=== PATIENT | male | born 1955 | race African-American/Black ===

== ENCOUNTER 2016-06-08 05:55 | Emergency (ER) | payer OTHER, MEDICARE ==
[2016-06-08] MEDS ORDERED: ONDANSETRON 4 MG TAB.RAPDIS PO ONE (06:51)
--- NOTE | 2016-06-08 06:53 | ER Document Report ---
ED General - General Information source: Patient TRAVEL OUTSIDE OF THE [place] IN LAST 30 DAYS: No - HPI Patient complains to provider of: Vomiting Onset: This morning - 05:00 Onset/Duration: Sudden, Persistent Associated symptoms: Nausea, Vomiting <CURT BALES - Last Filed: 06/08/16 06:48> <AUTUMN LANE - Last Filed: 06/08/16 08:06> - General Chief Complaint: Nausea/Vomiting Stated Complaint: Vomiting Notes: Patient is a 50-year-old male presenting to the emergency department concerned of nausea and vomiting onset 05:00 today. Patient states that this happened upon waking, and he was "real hot" and his legs locked up to the point that he couldn't walk. (CURT BALES) - Related Data Allergies/Adverse Reactions: captopril [From Capoten] Allergy (Severe, Verified 05/09/16 15:15) Angioedema atorvastatin calcium [From Lipitor] Allergy (Intermediate, Verified 05/09/16 15: 15) Angioedema atorvastatin [From Lipitor] Allergy (Verified 05/09/16 15:15) clopidogrel [From Plavix] Allergy (Verified 05/09/16 15:15) rosuvastatin [From Crestor] Allergy (Verified 05/09/16 15:15) simvastatin [From Zocor] Allergy (Verified 05/09/16 15:15) Angioedema Past Medical History - General Information source: Patient - Social History Smoking Status: Never Smoker Frequency of alcohol use: None Drug Abuse: None Family History: Reviewed & Not Pertinent, CAD, DM, Hypertension, Thyroid Disfunction - Past Medical History Cardiac Medical History: Reports: Hx Congestive Heart Failure, Hx Coronary Artery Disease, Hx Heart Attack - 2009, Hx Hypercholesterolemia, Hx Hypertension Pulmonary Medical History: Reports: Hx Asthma, Hx Bronchitis, Hx COPD, Hx Sleep Apnea Neurological Medical History: Reports: Hx Cerebrovascular Accident - x 2 Endocrine Medical History: Reports: Hx Diabetes Mellitus Type 1, Hx Diabetes Mellitus Type 2 Renal/ Medical History: Malignancy Medical History: GI Medical History: Reports: Hx Diverticulitis, Hx Gastroesophageal Reflux Disease Musculoskeltal Medical History: Reports Hx Arthritis, Reports Hx Musculoskeletal Deformity, Reports Hx Musculoskeletal Trauma Psychiatric Medical History: Reports: Hx Anxiety, Hx Post Traumatic Stress Disorder Infectious Medical History: Past Surgical History: Reports: Hx Abdominal Surgery - for diverticulitis, Hx Bowel Surgery - Colon resection due to diverticulitis, Hx Cardiac Catheterization, Hx Cardiac Surgery - 1984, ICD placement 2015, Hx Coronary Artery Bypass Graft, Hx Coronary Stent - 1984, Hx Thyroid Surgery, Other - AICD - Immunizations Immunizations up to date: Yes Hx Diphtheria, Pertussis, Tetanus Vaccination: Yes Hx Pneumococcal Vaccination: 05/26/10 <CURT BALES - Last Filed: 06/08/16 06:48> Review of Systems - Review of Systems Constitutional: See HPI, Weakness, Other - [place] "real hot" EENT: No symptoms reported Cardiovascular: No symptoms reported Respiratory: No symptoms reported Gastrointestinal: See HPI, Nausea, Vomiting Genitourinary: No symptoms reported Male Genitourinary: No symptoms reported Musculoskeletal: No symptoms reported Skin: No symptoms reported Hematologic/Lymphatic: No symptoms reported Neurological/Psychological: No symptoms reported -: Yes All other systems reviewed and negative <CURT BALES - Last Filed: 06/08/16 06:48> Physical Exam - Vital signs Interpretation: Normal - General General appearance: Alert - HEENT Head: Normocephalic, Atraumatic Eyes: Normal Pupils: PERRL - Respiratory Respiratory status: No respiratory distress Chest status: Nontender Breath sounds: Normal Chest palpation: Normal - Cardiovascular Rhythm: Regular Heart sounds: Normal auscultation Murmur: No - Abdominal Inspection: Obese Distension: No distension Bowel sounds: Normal Tenderness: Nontender Organomegaly: No organomegaly - Back Back: Normal - Extremities General upper extremity: Normal inspection, Nontender, Normal color, Normal ROM , Normal temperature General lower extremity: Normal inspection, Nontender, Normal color, Normal ROM , Normal temperature - Neurological Neuro grossly intact: Yes Cognition: Normal [place] Coma Scale Eye Opening: Spontaneous Magalis Coma Scale Verbal: Oriented Magalis Coma Scale Motor: Obeys Commands Magalis Coma Scale Total: 15 Speech: Other - Stutters - Psychological Associated symptoms: Normal affect, Normal mood - Skin Skin Temperature: Warm Skin Moisture: Dry Skin Color: Normal <CURT BALES - Last Filed: 06/08/16 06:48> Course <CURT BALES - Last Filed: 06/08/16 06:48> - Laboratory Result Diagrams: 06/08/16 06:45 06/08/16 06:45 - Diagnostic Test Radiology reviewed: Image reviewed, Reports reviewed - Chest x-ray shows stable cardiomegaly without failure or infiltrate. - EKG Interpretation by Ca EKG shows normal: Sinus rhythm, [place]. abnormal: Intervals - Borderline prolonged QT interval, QRS Complexes - RVH, ST-T Waves - Borderline inferior T abnormalities Rate: Normal - 97 Rhythm: NSR, PVC's When compared to previous EKG there are: No significant change <AUTUMN LANE - Last Filed: 06/08/16 08:06> - Re-evaluation Re-evalutation: 06/08/16 07:53 Patient's lab work is unremarkable, troponin is 0.054 which is within his normal range. EKG does not show acute changes. Chest x-ray is unremarkable. Patient feels better after Zofran for the nausea and vomiting. 06/08/16 08:03 Patient is sleeping. He is awakened for exam. His nauseousness is considerably better and he feels comfortable going home. (AUTUMN LANE) - Vital Signs Vital signs: Temp Pulse Resp BP Pulse Ox 97.7 F 101 H 20 107/76 95 06/08/16 06:10 06/08/16 06:10 06/08/16 06:10 06/08/16 06:10 06/08/16 06:10 (CURT BALES) (AUTUMN LANE) - Laboratory Laboratory results interpreted by nv: 06/08/16 06/08/16 06:45 06:45 Hgb 12.9 L MCH 26.1 L RDW 17.5 H Monocytes % 13.3 H Carbon Dioxide 34 H BUN 23 H Glucose 143 H Creatine Kinase 45 L (AUTUMN LANE) Discharge <CURT BALES - Last Filed: 06/08/16 06:48> <AUTUMN LANE - Last Filed: 06/08/16 08:06> - Discharge Clinical Impression: Nausea and vomiting Qualifiers: Vomiting type: unspecified Vomiting Intractability: non-intractable Qualified Code(s): R11.2 - Nausea with vomiting, unspecified Chest pain Qualifiers: Chest pain type: unspecified Qualified Code(s): R07.9 - Chest pain, unspecified Condition: Stable Disposition: HOME, SELF-CARE Additional Instructions: Nausea or Vomiting, Nonspecific: Vomiting (or nausea without vomiting) can be caused by many different problems. Of course, it can mean that something's wrong with the stomach, such as "stomach flu," ulcers, or inflammation. But it can also be a symptom of a problem that has nothing to do with the stomach or intestines. Vomiting is common with severe headaches, earaches, and tonsillitis. We see it with pneumonia or heart attacks. Drugs can cause nausea. Many abdominal problems cause vomiting; for example, gallstones, kidney stones, pancreatitis, and intestinal obstruction (blocked bowels). In most cases, curing the vomiting depends on fixing the problem that caused it. For temporary relief, we may use an anti-nausea medicine. For home use, we can prescribe suppositories, chewable pills, pills that dissolve in the mouth, or liquid anti-nausea drugs. If the vomiting seems to be caused by a problem in the stomach, acid-suppressing drugs may be prescribed as well. It's important to avoid dehydration. Sip clear liquids. Take increasing amounts of fluid over the first 24 hours. Then start small amounts of bland foods (such as dry toast, applesauce, mashed potato). Avoid aspirin, tobacco, and alcohol. Gradually resume your usual diet. If the vomiting worsens, if the problem that's making you vomit worsens, or if there's evidence of bleeding in the stomach (such as black, tarry stool, bloody or black vomit, or lightheadedness), you should return immediately. Call your doctor if you aren't improved in 24 to 36 hours. TAKE THE MEDICATION DISPENSED FOR NAUSEA IF NEEDED TODAY. FOLLOW UP WITH YOUR DOCTOR IF NOT IMPROVING. Referrals: BRANDAN BOCANEGRA MD [Primary Care Provider] - Follow up as needed Scribe Attestation: 06/08/16 08:06 I personally performed the services described in the documentation, reviewed and edited the documentation which was dictated to the scribe in my presence, and it accurately records my words and actions. (AUTUMN LANE) Scribe Documentation <CURT BALES - Last Filed: 06/08/16 06:48> <AUTUMN LANE - Last Filed: 06/08/16 08:06> - Scribe Written by Scryumikoe:: AUTUMN LANE MD, SCRIBE 06/08/16 0727 Acting as scribe for: Dr. Lane (CURT BALES) (JAY LANE
[2016-06-08 07:11] LABS: ALBUMIN 4.3 g/dL (3.5-5.0); ANION GAP 11 (5-19); BILIRUBIN,TOTAL 0.9 mg/dL (0.2-1.3); CALCIUM 8.9 mg/dL (8.4-10.2); CARBON DIOXIDE 34 mmol/L (22-30); CHLORIDE 98 mmol/L (98-107); CREATINE KINASE 45 U/L (55-170); CREATININE RESULT 1.12 mg/dL (0.52-1.25); GLUCOSE 143 mg/dL (75-110); SODIUM 142.5 mmol/L (137-145); TOTAL PROTEIN 7.3 g/dL (6.3-8.2)
[2016-06-08 07:16] LABS: ALANINE AMINOTRANSFERASE 26 U/L (21-72); ALKALINE PHOSPHATASE 59 U/L (38-126); ASPARTATE AMINO TRANSFERASE 45 U/L (17-59); BLOOD UREA NITROGEN 23 mg/dL (7-20); POTASSIUM 4.1 mmol/L (3.6-5.0)
[2016-06-08 07:20] LABS: ABSOLUTE EOSINOPHILS # (AUTO) 0.2 10^3/uL (0.0-0.6); ABSOLUTE LYMPHOCYTES (AUTO) 1.5 10^3/uL (0.5-4.7); ABSOLUTE NEUT (AUTO) 4.8 10^3/uL (1.7-8.2); BASOPHILS % (AUTO) 0.6 % (0-2); EOSINOPHILS % (AUTO) 2.9 % (0-6); HEMATOCRIT 39.6 % (37.9-51.0); HEMOGLOBIN 12.9 g/dL (13.5-17.0); HGB HCT DIFFERENCE -0.9; MEAN CORPUSCULAR HEMOGLOBIN 26.1 pg (27.0-33.4); MEAN CORPUSCULAR HGB CONC 32.5 g/dL (32.0-36.0); MEAN CORPUSCULAR VOLUME 81 fl (80-97); MONOCYTES % (AUTO) 13.3 % (3-13); RED BLOOD COUNT 4.92 10^6/uL (4.35-5.55); RED CELL DISTRIBUTION WIDTH 17.5 % (11.5-14.0); SEGMENTED NEUTROPHILS % (AUTO) 63.2 % (42-78); WHITE BLOOD COUNT 7.6 10^3/uL (4.0-10.5)
[2016-06-08 07:23] LABS: CREATINE KINASE MB 1.47 ng/mL (<4.55)
[2016-06-08 07:25] LABS: TROPONIN I 0.054 ng/mL
[2016-06-08] MEDS ORDERED: ONDANSETRON ODT 4 MG TAB (6 TAB/DSPK) PO PRN (08:04)
[2016-06-08 08:25] VITALS: BP 126/94
[2016-06-08 08:40] LABS: APPEARANCE,URINE CLEAR; BILIRUBIN,URINE NEGATIVE (NEGATIVE); GLUCOSE, URINE NEGATIVE (NEGATIVE); KETONES,URINE NEGATIVE (NEGATIVE); LEUKOCYTE ESTERASE,URINE NEGATIVE (NEGATIVE); NITRITE,URINE NEGATIVE (NEGATIVE); PROTEIN,URINE 30 mg/dL (NEGATIVE); URINE SPECIFIC GRAVITY 1.011; UROBILINOGEN,URINE NEGATIVE mg/dL (<2.0)
--- NOTE | 2016-06-08 09:24 | EKG REPORT ---
SEVERITY:- ABNORMAL ECG - SINUS RHYTHM VENTRICULAR PREMATURE COMPLEX PROBABLE LEFT ATRIAL ABNORMALITY CONSIDER RIGHT VENTRICULAR HYPERTROPHY BORDERLINE T ABNORMALITIES, INFERIOR LEADS BORDERLINE PROLONGED QT INTERVAL : Confirmed by: Carolyn Garsia MD 08-Jun-2016 09:23:33
== END 2016-06-08 08:15 | disposition home or self-care (01) ==
LOC: ER 05:55
DX: R11.2 Nausea with vomiting, unspecified (principal); R07.9 Chest pain, unspecified; E66.9 Obesity, unspecified; I50.9 Heart failure, unspecified; I25.10 Atherosclerotic heart disease of native coronary artery without angina pectoris; E78.00 Pure hypercholesterolemia, unspecified; I10 Essential (primary) hypertension; J45.909 Unspecified asthma, uncomplicated; J44.9 Chronic obstructive pulmonary disease, unspecified; E11.9 Type 2 diabetes mellitus without complications; K21.9 Gastro-esophageal reflux disease without esophagitis; Z95.810 Presence of automatic (implantable) cardiac defibrillator; Z86.73 Personal history of transient ischemic attack (TIA), and cerebral infarction without residual deficits; I25.2 Old myocardial infarction
CPT/HCPCS: 93005; 99285; 36415; 82553; 82550; 85025; 80053; 81001; 84484; 71010; 93010; S0119

== ENCOUNTER 2016-06-14 09:23 | Emergency (ER) | payer OTHER, MEDICARE ==
--- NOTE | 2016-06-14 10:13 | ER Document Report ---
ED Headache - General Chief Complaint: Headache Stated Complaint: POSSIBLE HIGH BLOOD PRESSURE Time seen by provider: 10:13 TRAVEL OUTSIDE OF THE [place] IN LAST 30 DAYS: No - Related Data Allergies/Adverse Reactions: captopril [From Capoten] Allergy (Severe, Verified 06/14/16 09:38) Angioedema atorvastatin calcium [From Lipitor] Allergy (Intermediate, Verified 06/14/16 09: 38) Angioedema atorvastatin [From Lipitor] Allergy (Verified 06/14/16 09:38) clopidogrel [From Plavix] Allergy (Verified 06/14/16 09:38) rosuvastatin [From Crestor] Allergy (Verified 06/14/16 09:38) simvastatin [From Zocor] Allergy (Verified 06/14/16 09:38) Angioedema Past Medical History - Social History Smoking Status: Never Smoker Chew tobacco use (# tins/day): No Frequency of alcohol use: None Drug Abuse: None Family History: Reviewed & Not Pertinent, CAD, DM, Hypertension, Thyroid Disfunction Patient has suicidal ideation: No Patient has homicidal ideation: No - Past Medical History Cardiac Medical History: Reports: Hx Congestive Heart Failure, Hx Coronary Artery Disease, Hx Heart Attack - 2008, Hx Hypercholesterolemia, Hx Hypertension Denies: Hx Heart Murmur Pulmonary Medical History: Reports: Hx Asthma, Hx Bronchitis, Hx COPD, Hx Sleep Apnea Denies: Hx Respiratory Failure, Hx Tuberculosis Neurological Medical History: Reports: Hx Cerebrovascular Accident - x 2. Denies: Hx Seizures Endocrine Medical History: Reports: Hx Diabetes Mellitus Type 1, Hx Diabetes Mellitus Type 2 Renal/ Medical History: Denies: Hx Peritoneal Dialysis Malignancy Medical History: GI Medical History: Reports: Hx Diverticulitis, Hx Gastroesophageal Reflux Disease Musculoskeltal Medical History: Reports Hx Arthritis, Reports Hx Musculoskeletal Deformity, Reports Hx Musculoskeletal Trauma Psychiatric Medical History: Reports: Hx Anxiety, Hx Post Traumatic Stress Disorder Denies: Hx Depression Traumatic Medical History: Denies: Hx Fractures Infectious Medical History: Past Surgical History: Reports: Hx Abdominal Surgery - for diverticulitis, Hx Bowel Surgery - Colon resection due to diverticulitis, Hx Cardiac Catheterization, Hx Cardiac Surgery - 1984, ICD placement 2015, Hx Coronary Artery Bypass Graft, Hx Coronary Stent - 1984, Hx Thyroid Surgery, Other - AICD - Immunizations Immunizations up to date: Yes Hx Diphtheria, Pertussis, Tetanus Vaccination: Yes Hx Pneumococcal Vaccination: 05/26/10 Physical Exam - Vital signs Vitals: Temp Pulse Resp BP Pulse Ox 98.0 F 101 H 16 112/70 99 06/14/16 09:35 06/14/16 09:35 06/14/16 09:35 06/14/16 09:35 06/14/16 09:35 Course - Vital Signs Vital signs: Temp Pulse Resp BP Pulse Ox 98.0 F 101 H 16 112/70 99 06/14/16 09:35 06/14/16 09:35 06/14/16 09:35 06/14/16 09:35 06/14/16 09:35
--- NOTE | 2016-06-14 10:36 | ER Document Report ---
ED General - General Chief Complaint: Headache Stated Complaint: POSSIBLE HIGH BLOOD PRESSURE Time seen by provider: 10:30 Mode of Arrival: Ambulatory Information source: Patient Notes: 60 yo male with hx storke(dysphasia-stuttering), HTN, DM, CHF feeling bad for 3- 4 days. C/o frontal headache, congestion "cold" in throat, sore throat, chest discomfort, SOB with ambulation into ER, left arm pain and numbness constant since ICD placed 3 months at [facility]. PCP. No fever. He wants a breathing treatment. TRAVEL OUTSIDE OF THE [place] IN LAST 30 DAYS: No - Related Data Allergies/Adverse Reactions: captopril [From Capoten] Allergy (Severe, Verified 06/14/16 09:38) Angioedema atorvastatin calcium [From Lipitor] Allergy (Intermediate, Verified 06/14/16 09: 38) Angioedema atorvastatin [From Lipitor] Allergy (Verified 06/14/16 09:38) clopidogrel [From Plavix] Allergy (Verified 06/14/16 09:38) rosuvastatin [From Crestor] Allergy (Verified 06/14/16 09:38) simvastatin [From Zocor] Allergy (Verified 06/14/16 09:38) Angioedema Past Medical History - General Information source: Patient - Social History Smoking Status: Never Smoker Chew tobacco use (# tins/day): No Frequency of alcohol use: None Drug Abuse: None Lives with: Family Family History: Reviewed & Not Pertinent, CAD, DM, Hypertension, Thyroid Disfunction Patient has suicidal ideation: No Patient has homicidal ideation: No - Past Medical History Cardiac Medical History: Reports: Hx Congestive Heart Failure, Hx Coronary Artery Disease, Hx Heart Attack - 2008, Hx Hypercholesterolemia, Hx Hypertension Pulmonary Medical History: Reports: Hx Asthma, Hx Bronchitis, Hx COPD, Hx Sleep Apnea Neurological Medical History: Reports: Hx Cerebrovascular Accident - x 2 Endocrine Medical History: Reports: Hx Diabetes Mellitus Type 1, Hx Diabetes Mellitus Type 2 Renal/ Medical History: Malignancy Medical History: GI Medical History: Reports: Hx Diverticulitis, Hx Gastroesophageal Reflux Disease Musculoskeltal Medical History: Reports Hx Arthritis, Reports Hx Musculoskeletal Deformity, Reports Hx Musculoskeletal Trauma Psychiatric Medical History: Reports: Hx Anxiety, Hx Post Traumatic Stress Disorder Infectious Medical History: Past Surgical History: Reports: Hx Abdominal Surgery - for diverticulitis, Hx Bowel Surgery - Colon resection due to diverticulitis, Hx Cardiac Catheterization, Hx Cardiac Surgery - 1984, ICD placement 2015, Hx Coronary Artery Bypass Graft, Hx Coronary Stent - 1984, Hx Thyroid Surgery, Other - AICD - Immunizations Immunizations up to date: Yes Hx Diphtheria, Pertussis, Tetanus Vaccination: Yes Hx Pneumococcal Vaccination: 05/26/10 Review of Systems - Review of Systems Constitutional: No symptoms reported EENT: See HPI Cardiovascular: No symptoms reported Respiratory: No symptoms reported Gastrointestinal: No symptoms reported Genitourinary: No symptoms reported Male Genitourinary: No symptoms reported Musculoskeletal: No symptoms reported Skin: No symptoms reported Hematologic/Lymphatic: No symptoms reported Neurological/Psychological: No symptoms reported Physical Exam - Vital signs Vitals: Temp Pulse Resp BP Pulse Ox 98.0 F 101 H 16 112/70 99 06/14/16 09:35 06/14/16 09:35 06/14/16 09:35 06/14/16 09:35 06/14/16 09:35 Interpretation: Normal - General General appearance: Appears well, Alert In distress: None - HEENT Head: Normocephalic, Atraumatic Eyes: Normal Conjunctiva: Normal Pupils: PERRL Tympanic membrane: Normal Mucous membranes: Normal Pharynx: Erythema - mild Neck: Supple. No: Lymphadenopathy - Respiratory Respiratory status: No respiratory distress Chest status: Nontender Breath sounds: Normal Chest palpation: Normal - Cardiovascular Rhythm: Regular Heart sounds: Normal auscultation Murmur: No - Abdominal Inspection: Normal Distension: No distension Bowel sounds: Normal Tenderness: Nontender. No: Tender Organomegaly: No organomegaly - Back Back: Normal, Nontender. No: CVA tenderness - Extremities General upper extremity: Normal inspection, Nontender, Normal color, Normal ROM , Normal temperature General lower extremity: Normal inspection, Nontender, Normal color, Normal ROM , Normal temperature, Normal weight bearing. No: Kadi's sign - Neurological Neuro grossly intact: Yes Cognition: Normal Orientation: AAOx4 Magalis Coma Scale Eye Opening: Spontaneous [place] Coma Scale Verbal: Oriented [place] Coma Scale Motor: Obeys Commands Magalis Coma Scale Total: 15 Speech: Normal Motor strength normal: LUE, RUE, LLE, RLE Sensory: Normal - Psychological Associated symptoms: Normal affect, Normal mood - Skin Skin Temperature: Warm Skin Moisture: Dry Skin Color: Normal Skin irregularity: negative: Rash Course - Re-evaluation Re-evalutation: 06/14/16 11:[address] Jolly per [facility] guidelines and he recommends the only test to be done as an EKG. The pt was here 06-08-17. Pt lungs are clear, but due to hx chf, dm, ICD placed 9-16 will add CXR-pt states he has "early pneumonia". 06/14/16 11:[address] muñoz, no ekg changes, compensated chronic chf per cxr and dr. muñoz. EKG ST rate 101, right axis deviation,borderline t abnormalities inferior leads. OK with neb that pt wants. and agrees with dispo/ discharge instructions. 06/14/16 11:59 - Vital Signs Vital signs: Temp Pulse Resp BP Pulse Ox 98.0 F 101 H 21 H 129/77 H 95 06/14/16 09:35 06/14/16 09:35 06/14/16 12:26 06/14/16 12:26 06/14/16 12:26 Discharge - Discharge Clinical Impression: chronic compenisated CHF Upper respiratory infection Qualifiers: URI type: unspecified viral URI Qualified Code(s): J06.9 - Acute upper respiratory infection, unspecified Condition: Good Disposition: HOME, SELF-CARE Instructions: Upper Respiratory Illness ([facility]) Additional Instructions: continue all your mdications to the er if worse Prescriptions: Albuterol Sulfate [Proair HFA Inhalation Aerosol 8.5 gm MDI] 2 puff IH Q3HP PRN #1 [email or web address] PRN Reason: Referrals: BRANDAN BOCANEGRA MD [Primary Care Provider] - 06/17/16
[2016-06-14] MEDS ORDERED: ALBUTEROL SULFATE 0.083% NEB 2.5 MG/3 ML AMPUL NEB ONE (11:48)
[2016-06-14 12:47] VITALS: BP 129/77
--- NOTE | 2016-06-14 12:57 | EKG REPORT ---
SEVERITY:- BORDERLINE ECG - SINUS TACHYCARDIA RIGHT AXIS DEVIATION BORDERLINE T ABNORMALITIES, INFERIOR LEADS : Confirmed by: Zac Brandon MD 14-Jun-2016 12:56:22
== END 2016-06-14 12:43 | disposition home or self-care (01) ==
LOC: ER 09:23
DX: J06.9 Acute upper respiratory infection, unspecified (principal); B97.89 Other viral agents as the cause of diseases classified elsewhere; R51 Headache; I69.321 Dysphasia following cerebral infarction; I11.0 Hypertensive heart disease with heart failure; I50.9 Heart failure, unspecified; I25.10 Atherosclerotic heart disease of native coronary artery without angina pectoris; I25.2 Old myocardial infarction; J44.9 Chronic obstructive pulmonary disease, unspecified; J02.9 Acute pharyngitis, unspecified; J45.909 Unspecified asthma, uncomplicated; R06.02 Shortness of breath; R09.89 Other specified symptoms and signs involving the circulatory and respiratory systems; R20.0 Anesthesia of skin; M79.602 Pain in left arm; Z95.810 Presence of automatic (implantable) cardiac defibrillator; Z88.8 Allergy status to other drugs, medicaments and biological substances; Z95.1 Presence of aortocoronary bypass graft; Z98.61 Coronary angioplasty status; E11.9 Type 2 diabetes mellitus without complications
CPT/HCPCS: 71020; 93005; 93010; 94640; 99284

== ENCOUNTER 2016-06-16 19:01 | Emergency (ER) | payer OTHER, MEDICARE ==
[2016-06-16] MEDS ORDERED: ASPIRIN 81 MG TABLET, CHEWABLE PO ONE (20:07)
--- NOTE | 2016-06-16 20:10 | ER Document Report ---
ED Medical Screen (RME) - General Chief Complaint: Chest Pain Stated Complaint: CHEST PAIN Mode of Arrival: Ambulatory Information source: Patient Notes: 60 y/o M presents to ED c/o chest pain, headache, and requesting glucose check. I have greeted and performed a rapid initial assessment of this patient. A comprehensive ED assessment and evaluation of the patient, analysis of test results and completion of the medical decision making process will be conducted by additional ED providers. TRAVEL OUTSIDE OF THE [place] IN LAST 30 DAYS: No - Related Data Allergies/Adverse Reactions: captopril [From Capoten] Allergy (Severe, Verified 06/14/16 09:38) Angioedema atorvastatin calcium [From Lipitor] Allergy (Intermediate, Verified 06/14/16 09: 38) Angioedema atorvastatin [From Lipitor] Allergy (Verified 06/14/16 09:38) clopidogrel [From Plavix] Allergy (Verified 06/14/16 09:38) rosuvastatin [From Crestor] Allergy (Verified 06/14/16 09:38) simvastatin [From Zocor] Allergy (Verified 06/14/16 09:38) Angioedema Past Medical History - Social History Family history: None - Past Medical History Cardiac Medical History: Reports: Hx Congestive Heart Failure, Hx Coronary Artery Disease, Hx Heart Attack - 2008, Hx Hypercholesterolemia, Hx Hypertension Denies: Hx Heart Murmur Pulmonary Medical History: Reports: Hx Asthma, Hx Bronchitis, Hx COPD, Hx Sleep Apnea Denies: Hx Respiratory Failure, Hx Tuberculosis Neurological Medical History: Reports: Hx Cerebrovascular Accident - x 2. Denies: Hx Seizures Endocrine Medical History: Reports: Hx Diabetes Mellitus Type 1, Hx Diabetes Mellitus Type 2 Renal/ Medical History: Denies: Hx Peritoneal Dialysis Malignancy Medical History: GI Medical History: Reports: Hx Diverticulitis, Hx Gastroesophageal Reflux Disease Musculoskeltal Medical History: Reports Hx Arthritis, Reports Hx Musculoskeletal Deformity, Reports Hx Musculoskeletal Trauma Psychiatric Medical History: Reports: Hx Anxiety, Hx Post Traumatic Stress Disorder Denies: Hx Depression Traumatic Medical History: Denies: Hx Fractures Infectious Medical History: Past Surgical History: Reports: Hx Abdominal Surgery - for diverticulitis, Hx Bowel Surgery - Colon resection due to diverticulitis, Hx Cardiac Catheterization, Hx Cardiac Surgery - 1984, ICD placement 2015, Hx Coronary Artery Bypass Graft, Hx Coronary Stent - 1984, Hx Thyroid Surgery, Other - AICD - Immunizations Immunizations up to date: Yes Hx Diphtheria, Pertussis, Tetanus Vaccination: Yes Physical Exam - General General appearance: Appears well, Alert In distress: None
--- NOTE | 2016-06-16 20:30 | EKG REPORT ---
SEVERITY:- ABNORMAL ECG - SINUS TACHYCARDIA CONSIDER RIGHT VENTRICULAR HYPERTROPHY BORDERLINE R WAVE PROGRESSION, ANTERIOR LEADS BORDERLINE T ABNORMALITIES, INFERIOR LEADS : Confirmed by: Zac Brandon MD 16-Jun-2016 20:30:24
--- NOTE | 2016-06-16 21:16 | ER Document Report ---
ED General - General Chief Complaint: Chest Pain Stated Complaint: CHEST PAIN Mode of Arrival: Ambulatory Notes: Patient is a 60-year-old male that comes emergency department with several complaints. He states he wants his blood sugar checked although he is taking his metformin for diabetes, he states that he has had a cough for about a week with an episode this morning where he vomited mucus. He states he has had mild chest pain intermittently and with cough. He denies fever. He states he had a headache but states he was given aspirin for this and now he feels fine. Past medical history of asthma reportedly, CAD, AICD placement, CVA, Plavix use. TRAVEL OUTSIDE OF THE [place] IN LAST 30 DAYS: No - Related Data Allergies/Adverse Reactions: captopril [From Capoten] Allergy (Severe, Verified 06/14/16 09:38) Angioedema atorvastatin calcium [From Lipitor] Allergy (Intermediate, Verified 06/14/16 09: 38) Angioedema atorvastatin [From Lipitor] Allergy (Verified 06/14/16 09:38) clopidogrel [From Plavix] Allergy (Verified 06/14/16 09:38) rosuvastatin [From Crestor] Allergy (Verified 06/14/16 09:38) simvastatin [From Zocor] Allergy (Verified 06/14/16 09:38) Angioedema Past Medical History - General Information source: Patient - Social History Smoking Status: Former Smoker Frequency of alcohol use: None Lives with: Family Family History: Reviewed & Not Pertinent, CAD, DM, Hypertension, Thyroid Disfunction Patient has suicidal ideation: No Patient has homicidal ideation: No - Past Medical History Cardiac Medical History: Reports: Hx Congestive Heart Failure, Hx Coronary Artery Disease, Hx Heart Attack - 2008, Hx Hypercholesterolemia, Hx Hypertension Denies: Hx Heart Murmur Pulmonary Medical History: Reports: Hx Asthma, Hx Bronchitis, Hx COPD, Hx Sleep Apnea Denies: Hx Respiratory Failure, Hx Tuberculosis Neurological Medical History: Reports: Hx Cerebrovascular Accident - x 2. Denies: Hx Seizures Endocrine Medical History: Reports: Hx Diabetes Mellitus Type 1, Hx Diabetes Mellitus Type 2 Renal/ Medical History: Denies: Hx Peritoneal Dialysis Malignancy Medical History: GI Medical History: Reports: Hx Diverticulitis, Hx Gastroesophageal Reflux Disease Musculoskeltal Medical History: Reports Hx Arthritis, Reports Hx Musculoskeletal Deformity, Reports Hx Musculoskeletal Trauma Psychiatric Medical History: Reports: Hx Anxiety, Hx Post Traumatic Stress Disorder Denies: Hx Depression Traumatic Medical History: Denies: Hx Fractures Infectious Medical History: Past Surgical History: Reports: Hx Abdominal Surgery - for diverticulitis, Hx Bowel Surgery - Colon resection due to diverticulitis, Hx Cardiac Catheterization, Hx Cardiac Surgery - 1984, ICD placement 2015, Hx Coronary Artery Bypass Graft, Hx Coronary Stent - 1984, Hx Thyroid Surgery, Other - AICD - Immunizations Immunizations up to date: Yes Hx Diphtheria, Pertussis, Tetanus Vaccination: Yes Hx Pneumococcal Vaccination: 05/26/10 Review of Systems - Review of Systems Constitutional: See HPI EENT: No symptoms reported Cardiovascular: See HPI Respiratory: See HPI Gastrointestinal: See HPI Genitourinary: No symptoms reported Male Genitourinary: No symptoms reported Musculoskeletal: No symptoms reported Skin: No symptoms reported Hematologic/Lymphatic: No symptoms reported Neurological/Psychological: No symptoms reported Physical Exam - Vital signs Vitals: Temp Pulse Resp BP Pulse Ox 98.4 F 99 19 127/92 H 96 06/16/16 19:33 06/16/16 19:33 06/16/16 19:33 06/16/16 19:33 06/16/16 19:33 Interpretation: Normal - General General appearance: Appears well, Alert In distress: None - HEENT Head: Normocephalic, Atraumatic Eyes: Normal Pupils: PERRL - Respiratory Respiratory status: No respiratory distress Chest status: Nontender Breath sounds: Normal. No: Decreased air movement, Nonproductive cough, Wheezing Chest palpation: Normal - Cardiovascular Rhythm: Regular. No: Tachycardia Heart sounds: Normal auscultation, S1 appreciated, S2 appreciated Murmur: No - Abdominal Inspection: Normal Distension: No distension Bowel sounds: Normal Tenderness: Nontender. No: Tender, Guarding - Back Back: Normal, Nontender. No: Tender - Extremities General upper extremity: Normal inspection, Nontender, Normal ROM, Normal strength General lower extremity: Normal inspection, Nontender, Normal ROM, Normal strength - Neurological Neuro grossly intact: Yes Cognition: Normal Orientation: AAOx4 [place] Coma Scale Eye Opening: Spontaneous [place] Coma Scale Verbal: Oriented [place] Coma Scale Motor: Obeys Commands Mag[place] Coma Scale Total: 15 Speech: Normal Motor strength normal: LUE, RUE, LLE, RLE Sensory: Normal - Psychological Associated symptoms: Normal affect, Normal mood - Skin Skin Temperature: Warm Skin Moisture: Dry Skin Color: Normal Course - Re-evaluation Re-evalutation: No acute abnormalities noted on patient's EKG, CBC, chemistry, cardiac enzymes. Chronically elevated troponin, troponin baseline. Chest x-ray unremarkable, very mild hyperglycemia. Patient was given a Dosepak discharge medications for cough and for nausea, patient is very well appearing on examination. Patient with no complaints at discharge. Patient states satisfaction with workup, states he'll follow-up with his primary care and return if he develops any concerning or worsening symptoms. - Vital Signs Vital signs: Temp Pulse Resp BP Pulse Ox 98.4 F 99 21 H 109/82 97 06/16/16 19:33 06/16/16 19:33 06/16/16 23:01 06/16/16 23:01 06/16/16 23:01 - Laboratory Result Diagrams: 06/16/16 21:44 06/16/16 21:44 Laboratory results interpreted by me: 06/16/16 06/16/16 21:44 21:44 Hgb 13.3 L MCH 25.5 L MCHC 31.5 L RDW 17.3 H Creatinine 1.28 H Est GFR (Non-Af Amer) 57 L Glucose 125 H Discharge - Discharge Clinical Impression: Cough Vomiting Qualifiers: Vomiting type: unspecified Vomiting Intractability: non-intractable Nausea presence: unspecified Qualified Code(s): R11.10 - Vomiting, unspecified Condition: Stable Disposition: HOME, SELF-CARE Additional Instructions: Your blood sugar and workup today does not show any concerning findings. Your x-ray does not show pneumonia, your workup does not show an infection. Take the [place] if needed for pain and cough especially at night to help you sleep. Take the Zofran given if you become nauseated and feel like you need to vomit again. Follow-up with your primary care provider this week. Return to the emergency department for any concerning symptoms. Referrals: BRANDAN BOCANEGRA MD [Primary Care Provider] - Follow up as needed
[2016-06-16 21:58] LABS: ABSOLUTE BASOPHILS # (AUTO) 0.1 10^3/uL (0.0-0.2); ABSOLUTE EOSINOPHILS # (AUTO) 0.4 10^3/uL (0.0-0.6); ABSOLUTE LYMPHOCYTES (AUTO) 1.9 10^3/uL (0.5-4.7); ABSOLUTE MONOCYTES (AUTO) 1.1 10^3/uL (0.1-1.4); ABSOLUTE NEUT (AUTO) 4.9 10^3/uL (1.7-8.2); BASOPHILS % (AUTO) 0.9 % (0-2); EOSINOPHILS % (AUTO) 4.2 % (0-6); HEMATOCRIT 42.4 % (37.9-51.0); HEMOGLOBIN 13.3 g/dL (13.5-17.0); HGB HCT DIFFERENCE -2.5; LYMPHOCYTES % (AUTO) 22.9 % (13-45); MEAN CORPUSCULAR HEMOGLOBIN 25.5 pg (27.0-33.4); MEAN CORPUSCULAR HGB CONC 31.5 g/dL (32.0-36.0); MEAN CORPUSCULAR VOLUME 81 fl (80-97); RED BLOOD COUNT 5.23 10^6/uL (4.35-5.55); RED CELL DISTRIBUTION WIDTH 17.3 % (11.5-14.0); WHITE BLOOD COUNT 8.3 10^3/uL (4.0-10.5)
[2016-06-16 22:18] LABS: ALANINE AMINOTRANSFERASE 28 U/L (21-72); ALBUMIN 4.2 g/dL (3.5-5.0); ALKALINE PHOSPHATASE 65 U/L (38-126); ANION GAP 13 (5-19); ASPARTATE AMINO TRANSFERASE 19 U/L (17-59); BILIRUBIN,TOTAL 0.5 mg/dL (0.2-1.3); BLOOD UREA NITROGEN 17 mg/dL (7-20); CALCIUM 9.4 mg/dL (8.4-10.2); CARBON DIOXIDE 26 mmol/L (22-30); CHLORIDE 105 mmol/L (98-107); CREATINE KINASE 76 U/L (55-170); CREATININE RESULT 1.28 mg/dL (0.52-1.25); GLUCOSE 125 mg/dL (75-110); POTASSIUM 4.4 mmol/L (3.6-5.0); SODIUM 143.8 mmol/L (137-145); TOTAL PROTEIN 6.8 g/dL (6.3-8.2)
[2016-06-16 22:27] LABS: CREATINE KINASE MB 1.79 ng/mL (<4.55)
[2016-06-16 22:30] LABS: TROPONIN I 0.058 ng/mL
[2016-06-16] MEDS ORDERED: HYDROCODONE/ACETAMINOPHEN 5-325 MG 6 TAB/DSPK PO PRN (22:57)
[2016-06-16] MEDS ORDERED: ONDANSETRON ODT 4 MG TAB (6 TAB/DSPK) PO PRN (22:57)
[2016-06-16 23:20] VITALS: BP 109/82
== END 2016-06-16 23:22 | disposition home or self-care (01) ==
LOC: ER 19:01
DX: R05 Cough (principal); R11.2 Nausea with vomiting, unspecified; R07.9 Chest pain, unspecified; E11.65 Type 2 diabetes mellitus with hyperglycemia; Z79.84 Long term (current) use of oral hypoglycemic drugs; R51 Headache; J45.909 Unspecified asthma, uncomplicated; J44.9 Chronic obstructive pulmonary disease, unspecified; I25.10 Atherosclerotic heart disease of native coronary artery without angina pectoris; I25.2 Old myocardial infarction; I10 Essential (primary) hypertension; Z86.73 Personal history of transient ischemic attack (TIA), and cerebral infarction without residual deficits; Z79.02 Long term (current) use of antithrombotics/antiplatelets; Z95.810 Presence of automatic (implantable) cardiac defibrillator; Z88.8 Allergy status to other drugs, medicaments and biological substances; Z87.891 Personal history of nicotine dependence; Z82.49 Family history of ischemic heart disease and other diseases of the circulatory system; Z95.1 Presence of aortocoronary bypass graft; Z98.61 Coronary angioplasty status
CPT/HCPCS: 36415; 71010; 80053; 82550; 82553; 84484; 85025; 93005; 93010; 99285

== ENCOUNTER 2016-06-23 04:48 | Emergency (ER) | payer OTHER, MEDICARE ==
--- NOTE | 2016-06-23 05:44 | ER Document Report ---
ED Medical Screen (RME) - General Chief Complaint: Chest Pain Stated Complaint: CHEST PAIN Time seen by provider: 05:43 Mode of Arrival: Ambulatory Information source: Patient TRAVEL OUTSIDE OF THE [place] IN LAST 30 DAYS: No - HPI Patient complains to provider of: headache, chest pain and difficulty breathing Onset: Just prior to arrival - 2:30 AM Quality of pain: Achy Severity: Mild Associated Symptoms: Shortness of breath Exacerbated by: Movement, Coughing Relieved by: Denies Similar symptoms previously: Yes Recently seen / treated by doctor: Yes - Related Data Allergies/Adverse Reactions: captopril [From Capoten] Allergy (Severe, Verified 06/23/16 04:55) Angioedema atorvastatin calcium [From Lipitor] Allergy (Intermediate, Verified 06/23/16 04: 55) Angioedema atorvastatin [From Lipitor] Allergy (Verified 06/23/16 04:55) clopidogrel [From Plavix] Allergy (Verified 06/23/16 04:55) rosuvastatin [From Crestor] Allergy (Verified 06/23/16 04:55) simvastatin [From Zocor] Allergy (Verified 06/23/16 04:55) Angioedema Past Medical History - Social History Family history: None - Past Medical History Cardiac Medical History: Reports: Hx Congestive Heart Failure, Hx Coronary Artery Disease, Hx Heart Attack - 2008, Hx Hypercholesterolemia, Hx Hypertension Denies: Hx Heart Murmur Pulmonary Medical History: Reports: Hx Asthma, Hx Bronchitis, Hx COPD, Hx Sleep Apnea Denies: Hx Respiratory Failure, Hx Tuberculosis Neurological Medical History: Reports: Hx Cerebrovascular Accident - x 2. Denies: Hx Seizures Endocrine Medical History: Reports: Hx Diabetes Mellitus Type 1, Hx Diabetes Mellitus Type 2 Renal/ Medical History: Denies: Hx Peritoneal Dialysis Malignancy Medical History: GI Medical History: Reports: Hx Diverticulitis, Hx Gastroesophageal Reflux Disease Musculoskeltal Medical History: Reports Hx Arthritis, Reports Hx Musculoskeletal Deformity, Reports Hx Musculoskeletal Trauma Psychiatric Medical History: Reports: Hx Anxiety, Hx Post Traumatic Stress Disorder Denies: Hx Depression Traumatic Medical History: Denies: Hx Fractures Infectious Medical History: Past Surgical History: Reports: Hx Abdominal Surgery - for diverticulitis, Hx Bowel Surgery - Colon resection due to diverticulitis, Hx Cardiac Catheterization, Hx Cardiac Surgery - 1984, ICD placement 2015, Hx Coronary Artery Bypass Graft, Hx Coronary Stent - 1984, Hx Thyroid Surgery, Other - AICD - Immunizations Immunizations up to date: Yes Hx Diphtheria, Pertussis, Tetanus Vaccination: Yes Physical Exam - Vital signs Vitals: Temp Pulse Resp BP Pulse Ox 97.7 F 100 10 L 112/77 96 06/23/16 05:04 06/23/16 05:04 06/23/16 05:04 06/23/16 05:04 06/23/16 05:04 Course - Vital Signs Vital signs: Temp Pulse Resp BP Pulse Ox 97.7 F 100 10 L 109/64 95 06/23/16 05:04 06/23/16 05:04 06/23/16 05:04 06/23/16 05:28 06/23/16 05:29
--- NOTE | 2016-06-23 06:57 | ER Document Report ---
ED General <AUTUMN LANE - Last Filed: 06/23/16 08:05> - General Time seen by provider: 06:52 Mode of Arrival: Ambulatory Information source: Patient TRAVEL OUTSIDE OF THE [place] IN LAST 30 DAYS: No - HPI Onset: This morning Onset/Duration: Sudden Quality of pain: Achy Pain Level: 4 Associated symptoms: Chest pain, Headache, Rhinnorhea Exacerbated by: Movement, Coughing Similar symptoms previously: Yes Recently seen / treated by doctor: Yes <DEJON CASTELAN - Last Filed: 06/23/16 10:04> - General Chief Complaint: Chest Pain Stated Complaint: CHEST PAIN Notes: Patient is a 60-year-old male presents to the emergency department with complaints of chest pain, abdominal pain, and difficulty breathing. Patient also complains of a headache and URI symptoms. Patient had a bowel movement after he arrived at the emergency department and states that relieved his abdominal pain. Patient has some congestion and a history of asthma and type II diabetes mellitus. Patient has been seen in the emergency department multiple times over the past 2 weeks. (DEJON CASTELAN) - Related Data Allergies/Adverse Reactions: captopril [From Capoten] Allergy (Severe, Verified 06/23/16 04:55) Angioedema atorvastatin calcium [From Lipitor] Allergy (Intermediate, Verified 06/23/16 04: 55) Angioedema atorvastatin [From Lipitor] Allergy (Verified 06/23/16 04:55) clopidogrel [From Plavix] Allergy (Verified 06/23/16 04:55) rosuvastatin [From Crestor] Allergy (Verified 06/23/16 04:55) simvastatin [From Zocor] Allergy (Verified 06/23/16 04:55) Angioedema Past Medical History - General Information source: Patient - Social History Smoking Status: Never Smoker Cigarette use (# per day): No Chew tobacco use (# tins/day): No Frequency of alcohol use: None Drug Abuse: None Family History: CAD, DM, Hypertension, Thyroid Disfunction - Past Medical History Cardiac Medical History: Reports: Hx Congestive Heart Failure, Hx Coronary Artery Disease, Hx Heart Attack - 2009, Hx Hypercholesterolemia, Hx Hypertension Pulmonary Medical History: Reports: Hx Asthma, Hx Bronchitis, Hx COPD, Hx Sleep Apnea Neurological Medical History: Reports: Hx Cerebrovascular Accident - x 2 Endocrine Medical History: Reports: Hx Diabetes Mellitus Type 1, Hx Diabetes Mellitus Type 2 Renal/ Medical History: Malignancy Medical History: GI Medical History: Reports: Hx Diverticulitis, Hx Gastroesophageal Reflux Disease Musculoskeltal Medical History: Reports Hx Arthritis, Reports Hx Musculoskeletal Deformity, Reports Hx Musculoskeletal Trauma Psychiatric Medical History: Reports: Hx Anxiety, Hx Post Traumatic Stress Disorder Infectious Medical History: Past Surgical History: Reports: Hx Abdominal Surgery - for diverticulitis, Hx Bowel Surgery - Colon resection due to diverticulitis, Hx Cardiac Catheterization, Hx Cardiac Surgery - 1984, ICD placement 2015, Hx Coronary Artery Bypass Graft, Hx Coronary Stent - 1984, Hx Thyroid Surgery, Other - AICD - Immunizations Immunizations up to date: Yes Hx Diphtheria, Pertussis, Tetanus Vaccination: Yes Hx Pneumococcal Vaccination: 05/26/10 <DEJON CASTELAN - Last Filed: 06/23/16 10:04> Review of Systems - Review of Systems Constitutional: No symptoms reported EENT: No symptoms reported Cardiovascular: See HPI, Chest pain Respiratory: See HPI, Short of breath Gastrointestinal: See HPI, Abdominal pain Genitourinary: No symptoms reported Male Genitourinary: No symptoms reported Musculoskeletal: No symptoms reported Skin: No symptoms reported Hematologic/Lymphatic: No symptoms reported Neurological/Psychological: See HPI, Headaches -: Yes All other systems reviewed and negative <DEJON CASTELAN - Last Filed: 06/23/16 10:04> Physical Exam - Vital signs Interpretation: Normal - General General appearance: Appears well, Alert, Other - patient is sleeping but easily arousable In distress: Mild - HEENT Head: Normocephalic, Atraumatic Eyes: Normal Pupils: PERRL Nasal: Clear rhinorrhea Mucous membranes: Moist - Respiratory Respiratory status: No respiratory distress Chest status: Nontender Breath sounds: Wheezing Chest palpation: Normal - Cardiovascular Rhythm: Regular Heart sounds: Normal auscultation Murmur: No - Abdominal Inspection: Obese Distension: No distension Bowel sounds: Normal Tenderness: Nontender Organomegaly: No organomegaly - Back Back: Normal, Nontender - Extremities General upper extremity: Normal inspection, Normal ROM, Normal strength General lower extremity: Normal inspection, Normal ROM, Normal strength - Neurological Neuro grossly intact: Yes Cognition: Normal Orientation: AAOx4 [place] Coma Scale Eye Opening: Spontaneous [place] Coma Scale Verbal: Oriented [place] Coma Scale Motor: Obeys Commands [place] Coma Scale Total: 15 Speech: Other - speech is somewhat garbled and patient is sometimes difficult to understand; this is his baseline - Psychological Associated symptoms: Normal affect, Normal mood - Skin Skin Temperature: Warm Skin Moisture: Dry <DEJON CASTELAN - Last Filed: 06/23/16 10:04> - Vital signs Vitals: Temp Pulse Resp BP Pulse Ox 97.7 F 100 10 L 112/77 96 06/23/16 05:04 06/23/16 05:04 06/23/16 05:04 06/23/16 05:04 06/23/16 05:04 (AUTUMN LANE) (DEJON CASTELAN) Course - Laboratory Result Diagrams: 06/23/16 07:14 06/23/16 07:14 - Diagnostic Test Radiology reviewed: Image reviewed, Reports reviewed - Chest x-ray shows cardiomegaly without failure or infiltrate - EKG Interpretation by Me EKG shows normal: Sinus rhythm, [place], QRS Complexes, ST-T Waves. abnormal: Intervals - Borderline prolonged QT interval Rate: Tachycardia - 103 Rhythm: PVC's [place]/QRS: RBBB, LPHB/LPFB P Waves: LAE When compared to previous EKG there are: No significant change <AUTUMN LANE - Last Filed: 06/23/16 08:05> - Laboratory Result Diagrams: 06/23/16 07:14 06/23/16 07:14 <DEJON CASTELAN - Last Filed: 06/23/16 10:04> - Re-evaluation Re-evalutation: 06/23/16 08:06 Wheezes are better and patient smoke up after breathing treatments. He was given today's dose of prednisone. (AUTUMN LANE) - Vital Signs Vital signs: Temp Pulse Resp BP Pulse Ox 98.7 F 100 26 H 127/88 H 100 06/23/16 08:23 06/23/16 05:04 06/23/16 08:01 06/23/16 08:01 06/23/16 08:01 (AUTUMN LANE) (DEJON CASTELAN) - Laboratory Laboratory results interpreted by me: 06/23/16 06/23/16 07:14 07:14 RBC 5.60 H MCH 25.7 L MCHC 31.6 L RDW 16.9 H Monocytes % 14.4 H Sodium 145.1 H BUN 24 H Creatinine 1.27 H Est GFR (Non-Af Amer) 57 L Glucose 133 H (AUTUMN LANE) Discharge <AUTUMN LANE - Last Filed: 06/23/16 08:05> <DEJON CASTELAN - Last Filed: 06/23/16 10:04> - Discharge Clinical Impression: Asthma exacerbation, Chest wall pain Condition: Stable Disposition: HOME, SELF-CARE Additional Instructions: You appear to have a viral upper respiratory tract infection which is exacerbating your asthma. Start the prednisone as prescribed tomorrow, you already had today's dose here in the emergency room. Use your albuterol inhaler every 4 hours for wheezing as needed. Drink extra water for the next few days. Follow-up with your doctor at the [facility] this week for recheck. RETURN TO THE EMERGENCY ROOM IF ANY NEW OR WORSENING SYMPTOMS. Prescriptions: Prednisone [Deltasone 10 mg Tablet] 10 mg PO ASDIR PRN #15 tablet PRN Reason: Referrals: BRANDAN BOCANEGRA MD [Primary Care Provider] - Follow up in 3-5 days Scribe Attestation: 06/23/16 08:10 I personally performed the services described in the documentation, reviewed and edited the documentation which was dictated to the scribe in my presence, and it accurately records my words and actions. (AUTUMN LNAE) Scribe Documentation - Scribe Written by Hawa:: Dejon Castelan 06/23/16 07:40 acting as scribe for :: Joanna <DEJON CASTELAN - Last Filed: 06/23/16 10:04>
[2016-06-23] MEDS ORDERED: PREDNISONE 20 MG TABLET PO ONE (06:58)
[2016-06-23] MEDS ORDERED: IPRATROPIUM/ALBUTEROL 0.5-2.5 MG/3 ML AMPUL NEB ONE (06:58)
[2016-06-23] MEDS ORDERED: ALBUTEROL SULFATE 0.083% NEB 2.5 MG/3 ML AMPUL NEB ONE (07:24)
[2016-06-23 07:26] LABS: ABSOLUTE BASOPHILS # (AUTO) 0.1 10^3/uL (0.0-0.2); ABSOLUTE EOSINOPHILS # (AUTO) 0.3 10^3/uL (0.0-0.6); ABSOLUTE LYMPHOCYTES (AUTO) 1.5 10^3/uL (0.5-4.7); ABSOLUTE NEUT (AUTO) 4.2 10^3/uL (1.7-8.2); BASOPHILS % (AUTO) 0.8 % (0-2); EOSINOPHILS % (AUTO) 4.3 % (0-6); HEMATOCRIT 45.5 % (37.9-51.0); HEMOGLOBIN 14.4 g/dL (13.5-17.0); HGB HCT DIFFERENCE -2.3; LYMPHOCYTES % (AUTO) 20.7 % (13-45); MEAN CORPUSCULAR HEMOGLOBIN 25.7 pg (27.0-33.4); MEAN CORPUSCULAR HGB CONC 31.6 g/dL (32.0-36.0); MEAN CORPUSCULAR VOLUME 81 fl (80-97); MONOCYTES % (AUTO) 14.4 % (3-13); RED CELL DISTRIBUTION WIDTH 16.9 % (11.5-14.0); SEGMENTED NEUTROPHILS % (AUTO) 59.8 % (42-78)
[2016-06-23 07:42] LABS: ALANINE AMINOTRANSFERASE 29 U/L (21-72); ALBUMIN 4.1 g/dL (3.5-5.0); ALKALINE PHOSPHATASE 64 U/L (38-126); ANION GAP 14 (5-19); ASPARTATE AMINO TRANSFERASE 23 U/L (17-59); BILIRUBIN,TOTAL 0.6 mg/dL (0.2-1.3); BLOOD UREA NITROGEN 24 mg/dL (7-20); CALCIUM 9.2 mg/dL (8.4-10.2); CARBON DIOXIDE 30 mmol/L (22-30); CHLORIDE 101 mmol/L (98-107); CREATINE KINASE 65 U/L (55-170); CREATININE RESULT 1.27 mg/dL (0.52-1.25); GLUCOSE 133 mg/dL (75-110); POTASSIUM 4.4 mmol/L (3.6-5.0); SODIUM 145.1 mmol/L (137-145); TOTAL PROTEIN 7.1 g/dL (6.3-8.2)
[2016-06-23 07:53] LABS: CREATINE KINASE MB 2.06 ng/mL (<4.55)
[2016-06-23 07:57] LABS: TROPONIN I 0.052 ng/mL
[2016-06-23 08:04] VITALS: BP 127/88
--- NOTE | 2016-06-23 09:37 | EKG REPORT ---
SEVERITY:- ABNORMAL ECG - SINUS TACHYCARDIA VENTRICULAR PREMATURE COMPLEX PROBABLE LEFT ATRIAL ABNORMALITY IRBBB AND LPFB BORDERLINE PROLONGED QT INTERVAL : Confirmed by: Carolyn Garsia MD 23-Jun-2016 09:36:08
== END 2016-06-23 08:24 | disposition home or self-care (01) ==
LOC: ER 04:48
DX: J45.901 Unspecified asthma with (acute) exacerbation (principal); R07.81 Pleurodynia; R07.9 Chest pain, unspecified; R51 Headache; R00.0 Tachycardia, unspecified; E11.9 Type 2 diabetes mellitus without complications; I50.9 Heart failure, unspecified; I11.0 Hypertensive heart disease with heart failure; E78.00 Pure hypercholesterolemia, unspecified; J44.9 Chronic obstructive pulmonary disease, unspecified; Z95.1 Presence of aortocoronary bypass graft; Z95.810 Presence of automatic (implantable) cardiac defibrillator
CPT/HCPCS: 93005; 94640 ×2; 99285; 36415; 82553; 82550; 85025; 80053; 84484; 83880; 71020; 93010; J7512; J7620

== ENCOUNTER 2016-06-26 19:56 | Emergency (ER) | payer OTHER, MEDICARE ==
--- NOTE | 2016-06-26 20:12 | ER Document Report ---
ED Medical Screen (RME) - General Stated Complaint: POSSIBLE STROKE Notes: 60 yo male with hx/o stroke x 2, AR, CABG, HTN c/o slurred speech and increased agitation x 1 hr. brought to ED by friend. speech is very exaggerated, and more slurred per friend. TRAVEL OUTSIDE OF THE [place] IN LAST 30 DAYS: No - Related Data Allergies/Adverse Reactions: captopril [From Capoten] Allergy (Severe, Verified 06/23/16 04:55) Angioedema atorvastatin calcium [From Lipitor] Allergy (Intermediate, Verified 06/23/16 04: 55) Angioedema atorvastatin [From Lipitor] Allergy (Verified 06/23/16 04:55) clopidogrel [From Plavix] Allergy (Verified 06/23/16 04:55) rosuvastatin [From Crestor] Allergy (Verified 06/23/16 04:55) simvastatin [From Zocor] Allergy (Verified 06/23/16 04:55) Angioedema Past Medical History - Social History Family history: None - Past Medical History Cardiac Medical History: Reports: Hx Congestive Heart Failure, Hx Coronary Artery Disease, Hx Heart Attack - 2008, Hx Hypercholesterolemia, Hx Hypertension Denies: Hx Heart Murmur Pulmonary Medical History: Reports: Hx Asthma, Hx Bronchitis, Hx COPD, Hx Sleep Apnea Denies: Hx Respiratory Failure, Hx Tuberculosis Neurological Medical History: Reports: Hx Cerebrovascular Accident - x 2. Denies: Hx Seizures Endocrine Medical History: Reports: Hx Diabetes Mellitus Type 1, Hx Diabetes Mellitus Type 2 Renal/ Medical History: Denies: Hx Peritoneal Dialysis Malignancy Medical History: GI Medical History: Reports: Hx Diverticulitis, Hx Gastroesophageal Reflux Disease Musculoskeltal Medical History: Reports Hx Arthritis, Reports Hx Musculoskeletal Deformity, Reports Hx Musculoskeletal Trauma Psychiatric Medical History: Reports: Hx Anxiety, Hx Post Traumatic Stress Disorder Denies: Hx Depression Traumatic Medical History: Denies: Hx Fractures Infectious Medical History: Past Surgical History: Reports: Hx Abdominal Surgery - for diverticulitis, Hx Bowel Surgery - Colon resection due to diverticulitis, Hx Cardiac Catheterization, Hx Cardiac Surgery - 1984, ICD placement 2015, Hx Coronary Artery Bypass Graft, Hx Coronary Stent - 1984, Hx Thyroid Surgery, Other - AICD - Immunizations Immunizations up to date: Yes Hx Diphtheria, Pertussis, Tetanus Vaccination: Yes Physical Exam - Vital signs Vitals: Temp Pulse Resp BP Pulse Ox 98.2 F 54 L 20 123/85 98 06/26/16 20:04 06/26/16 20:04 06/26/16 20:04 06/26/16 20:04 06/26/16 20:04 Course - Vital Signs Vital signs: Temp Pulse Resp BP Pulse Ox 98.2 F 54 L 20 123/85 98 06/26/16 20:04 06/26/16 20:04 06/26/16 20:04 06/26/16 20:04 06/26/16 20:04
--- NOTE | 2016-06-26 20:57 | ER Document Report ---
ED General - General Chief Complaint: S/S of Possible Stroke Stated Complaint: POSSIBLE STROKE Mode of Arrival: Ambulatory Information source: Patient, Friend Notes: This is a 60-year-old -[place] gentleman with a history of prior CVA who states that at about 1930 he was sitting and watching TV when he had a sudden right sided headache and pressure in his head. His friend states that at the time his speech was slurred. The patient denies chest pain. He also denies any weakness or paresthesias now or during the incident. At time of my exam, he states that he is feeling much better. He takes aspirin and Plavix daily and he has had these meds today. No recent illnesses and no fevers. No nausea no vomiting. His friend is available at the bedside and states that the patient's mental status and speech is back to normal now. 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 TRAVEL OUTSIDE OF THE [place] IN LAST 30 DAYS: No - Related Data Allergies/Adverse Reactions: captopril [From Capoten] Allergy (Severe, Verified 06/23/16 04:55) Angioedema atorvastatin calcium [From Lipitor] Allergy (Intermediate, Verified 06/23/16 04: 55) Angioedema atorvastatin [From Lipitor] Allergy (Verified 06/23/16 04:55) clopidogrel [From Plavix] Allergy (Verified 06/23/16 04:55) rosuvastatin [From Crestor] Allergy (Verified 06/23/16 04:55) simvastatin [From Zocor] Allergy (Verified 06/23/16 04:55) Angioedema Past Medical History - Social History Smoking Status: Never Smoker Chew tobacco use (# tins/day): No Frequency of alcohol use: None Drug Abuse: None Family History: CAD, DM, Hypertension, Thyroid Disfunction Patient has suicidal ideation: No Patient has homicidal ideation: No - Past Medical History Cardiac Medical History: Reports: Hx Congestive Heart Failure, Hx Coronary Artery Disease, Hx Heart Attack - 2009, Hx Hypercholesterolemia, Hx Hypertension Denies: Hx Heart Murmur Pulmonary Medical History: Reports: Hx Asthma, Hx Bronchitis, Hx COPD, Hx Sleep Apnea Denies: Hx Respiratory Failure, Hx Tuberculosis Neurological Medical History: Reports: Hx Cerebrovascular Accident - x 2. Denies: Hx Seizures Endocrine Medical History: Reports: Hx Diabetes Mellitus Type 1, Hx Diabetes Mellitus Type 2 Renal/ Medical History: Denies: Hx Peritoneal Dialysis Malignancy Medical History: GI Medical History: Reports: Hx Diverticulitis, Hx Gastroesophageal Reflux Disease Musculoskeltal Medical History: Reports Hx Arthritis, Reports Hx Musculoskeletal Deformity, Reports Hx Musculoskeletal Trauma Psychiatric Medical History: Reports: Hx Anxiety, Hx Post Traumatic Stress Disorder Denies: Hx Depression Traumatic Medical History: Denies: Hx Fractures Infectious Medical History: Past Surgical History: Reports: Hx Abdominal Surgery - for diverticulitis, Hx Bowel Surgery - Colon resection due to diverticulitis, Hx Cardiac Catheterization, Hx Cardiac Surgery - 1984, ICD placement 2015, Hx Coronary Artery Bypass Graft, Hx Coronary Stent - 1984, Hx Thyroid Surgery, Other - AICD - Immunizations Immunizations up to date: Yes Hx Diphtheria, Pertussis, Tetanus Vaccination: Yes Hx Pneumococcal Vaccination: 05/26/10 Review of Systems - Review of Systems Constitutional: denies: Chills, Diaphoresis, Fever EENT: No symptoms reported. denies: Eye pain, Nose congestion, Sinus pressure Cardiovascular: No symptoms reported. denies: Chest pain, Palpitations, Dyspnea , Syncope Respiratory: No symptoms reported. denies: Cough, Hurts to breathe, Short of breath Gastrointestinal: No symptoms reported. denies: Abdominal pain, Diarrhea, Nausea, Vomiting Genitourinary: No symptoms reported Musculoskeletal: No symptoms reported Skin: No symptoms reported. denies: Rash Hematologic/Lymphatic: No symptoms reported Neurological/Psychological: See HPI Physical Exam - Vital signs Vitals: Temp Pulse Resp BP Pulse Ox 98.2 F 54 L 20 123/85 98 06/26/16 20:04 06/26/16 20:04 06/26/16 20:04 06/26/16 20:04 06/26/16 20:04 Interpretation: Bradycardic - General General appearance: Appears well, Alert In distress: None - HEENT Head: Normocephalic, Atraumatic Eyes: Normal Conjunctiva: Normal Cornea: Normal Extraocular movements intact: Yes Pupils: PERRL - Respiratory Respiratory status: No respiratory distress. No: Labored Breath sounds: Normal Chest palpation: Normal - Cardiovascular Rhythm: Regular, Bradycardia Heart sounds: Normal auscultation Murmur: No - Abdominal Inspection: Normal Distension: No distension Bowel sounds: Normal Tenderness: Nontender - Extremities General upper extremity: Normal inspection General lower extremity: Normal inspection - Neurological Cognition: Normal Orientation: AAOx4 Speech: Other - somewhat pressured, with frequent stuttering, which he and friend state is his baseline (residual from prior CVA) Cranial nerves: Normal Cerebellar coordination: Normal. 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 No: Pronator drift, Weakness, Hemiplegia Sensory: Normal - Psychological Associated symptoms: Normal affect - Skin Skin Temperature: Warm Skin Moisture: Dry Skin Color: Normal Course - Re-evaluation Re-evalutation: 06/26/16 22:31 Pt states that he feels "very very good!" and he is ready to go home. We discussed TIA and he will follow up with his PCP. He is adamant that he will not stay in the hospital today. Return precautions discussed. - Vital Signs Vital signs: Temp Pulse Resp BP Pulse Ox 98.2 F 103 H 21 H 107/93 H 96 06/26/16 20:04 06/26/16 20:22 06/26/16 21:02 06/26/16 21:21 06/26/16 22:00 - Laboratory Result Diagrams: 06/26/16 20:37 06/26/16 20:37 Laboratory results interpreted by me: 06/26/16 06/26/16 20:37 20:37 MCH 25.9 L RDW 16.4 H BUN 27 H Glucose 177 H - Diagnostic Test Radiology reviewed: Reports reviewed - Head CT negative for any acute change Discharge - Discharge Clinical Impression: History of CVA (cerebrovascular accident) Headache Qualifiers: Headache type: unspecified Headache chronicity pattern: acute headache Intractability: not intractable Qualified Code(s): R51 - Headache TIA (transient ischemic attack) Qualifiers: Transient cerebral ischemia type: unspecified Qualified Code(s): G45.9 - Transient cerebral ischemic attack, unspecified Condition: Good Disposition: HOME, SELF-CARE Additional Instructions: HEADACHE: The physician does not feel that the headache you are experiencing has a serious underlying cause. Most headaches are due to emotional stress, with resultant muscle tension (tension headache). Occasionally, headaches are secondary to changes in the blood vessels of the scalp (vascular headache and migraine headache). Sometimes, a headache is the first symptom of another developing illness, such as a viral infection. You have no evidence of stroke, bleeding, meningitis, or other serious cause of your headache. The treatment of headaches varies with the severity and cause of the pain. Not all headaches need pain shots. In fact, there is evidence that using narcotics for headaches may make them worse in the long run. The physician will determine the therapy that's in your best interest. If you develop a fever, if the headache is different from any you've previously experienced, or if the headache progressively worsens, then call your physician at once or go to the emergency room. FOLLOW-UP CARE: If you have been referred to a physician for follow-up care, call the physician s office for an appointment as you were instructed or within the next two days. If you experience worsening or a significant change in your symptoms, notify the physician immediately or return to the Emergency Department at any time for re-evaluation. You have been diagnosed as having a transient ischemic attack (TIA). This is caused when an artery to the brain has been temporarily blocked. It can result in visual changes, difficulty with speech, and weakness or numbness -- usually limited to one side of the body. TIA symptoms usually resolve within an hour, but a TIA is serious, as it may be a warning sign of an impending stroke. To prevent further episodes, you may be placed on medication to reduce the possibility that your platelets will aggregate and form blood clots in the arteries that supply the brain. Usually, this includes aspirin and sometimes other platelet inhibitors. Further evaluation is often necessary to make an exact diagnosis as to where these blood clots are originating, and if anything else needs to be done to correct the problem. Call the physician or go to the emergency room if episodes occur with increasing frequency. If symptoms occur that don't go away within a few minutes , call 911. Referrals: BRANDAN BOCANEGRA MD [Primary Care Provider] - Follow up in 3-5 days
[2016-06-26 21:04] LABS: PARTIAL THROMBOPLASTIN TIME 32.6 SEC (23.5-35.8)
[2016-06-26 21:12] LABS: ALANINE AMINOTRANSFERASE 28 U/L (21-72); ALBUMIN 4.4 g/dL (3.5-5.0); ALKALINE PHOSPHATASE 85 U/L (38-126); ANION GAP 13 (5-19); ASPARTATE AMINO TRANSFERASE 29 U/L (17-59); BILIRUBIN,TOTAL 0.6 mg/dL (0.2-1.3); BLOOD UREA NITROGEN 27 mg/dL (7-20); CALCIUM 9.1 mg/dL (8.4-10.2); CARBON DIOXIDE 29 mmol/L (22-30); CHLORIDE 101 mmol/L (98-107); CREATININE RESULT 1.14 mg/dL (0.52-1.25); GLUCOSE 177 mg/dL (75-110); POTASSIUM 4.3 mmol/L (3.6-5.0); SODIUM 143.2 mmol/L (137-145); TOTAL PROTEIN 7.1 g/dL (6.3-8.2)
[2016-06-26 21:17] LABS: ABSOLUTE BASOPHILS # (AUTO) 0.1 10^3/uL (0.0-0.2); ABSOLUTE EOSINOPHILS # (AUTO) 0.2 10^3/uL (0.0-0.6); ABSOLUTE NEUT (AUTO) 4.9 10^3/uL (1.7-8.2); BASOPHILS % (AUTO) 0.9 % (0-2); EOSINOPHILS % (AUTO) 2.1 % (0-6); HEMATOCRIT 42.9 % (37.9-51.0); HEMOGLOBIN 13.9 g/dL (13.5-17.0); HGB HCT DIFFERENCE -1.2; LYMPHOCYTES % (AUTO) 24.2 % (13-45); MEAN CORPUSCULAR HEMOGLOBIN 25.9 pg (27.0-33.4); MEAN CORPUSCULAR HGB CONC 32.3 g/dL (32.0-36.0); MEAN CORPUSCULAR VOLUME 80 fl (80-97); MONOCYTES % (AUTO) 12.5 % (3-13); RED BLOOD COUNT 5.36 10^6/uL (4.35-5.55); RED CELL DISTRIBUTION WIDTH 16.4 % (11.5-14.0); SEGMENTED NEUTROPHILS % (AUTO) 60.3 % (42-78); WHITE BLOOD COUNT 8.1 10^3/uL (4.0-10.5)
[2016-06-27 09:15] VITALS: BP 212/197
--- NOTE | 2016-06-27 11:24 | EKG REPORT ---
SEVERITY:- ABNORMAL ECG - SINUS TACHYCARDIA VENTRICULAR PREMATURE COMPLEX PROBABLE LEFT ATRIAL ABNORMALITY NONSPECIFIC INTRAVENTRICULAR CONDUCTION DELAY BORDERLINE R WAVE PROGRESSION, ANTERIOR LEADS : Confirmed by: Pooja Patel 27-Jun-2016 11:24:08
== END 2016-06-26 22:59 | disposition home or self-care (01) ==
LOC: ER 19:56
DX: G45.9 Transient cerebral ischemic attack, unspecified (principal); R51 Headache; Z86.73 Personal history of transient ischemic attack (TIA), and cerebral infarction without residual deficits; R47.81 Slurred speech; I50.9 Heart failure, unspecified; I25.10 Atherosclerotic heart disease of native coronary artery without angina pectoris; I25.2 Old myocardial infarction; E78.00 Pure hypercholesterolemia, unspecified; I10 Essential (primary) hypertension
CPT/HCPCS: 36415; 70450; 71010; 80053; 84484; 85025; 85610; 85730; 93005; 93010; 99285

== ENCOUNTER 2016-07-07 03:29 | Emergency (ER) | payer OTHER, MEDICARE ==
[2016-07-07 05:38] LABS: ABSOLUTE EOSINOPHILS # (AUTO) 0.2 10^3/uL (0.0-0.6); ABSOLUTE LYMPHOCYTES (AUTO) 1.5 10^3/uL (0.5-4.7); ABSOLUTE MONOCYTES (AUTO) 0.8 10^3/uL (0.1-1.4); BASOPHILS % (AUTO) 0.3 % (0-2); EOSINOPHILS % (AUTO) 3.3 % (0-6); HEMOGLOBIN 13.5 g/dL (13.5-17.0); HGB HCT DIFFERENCE -0.5; LYMPHOCYTES % (AUTO) 22.4 % (13-45); MEAN CORPUSCULAR HEMOGLOBIN 26.3 pg (27.0-33.4); MEAN CORPUSCULAR HGB CONC 32.9 g/dL (32.0-36.0); MEAN CORPUSCULAR VOLUME 80 fl (80-97); MONOCYTES % (AUTO) 12.7 % (3-13); RED BLOOD COUNT 5.13 10^6/uL (4.35-5.55); RED CELL DISTRIBUTION WIDTH 16.2 % (11.5-14.0); SEGMENTED NEUTROPHILS % (AUTO) 61.3 % (42-78); WHITE BLOOD COUNT 6.5 10^3/uL (4.0-10.5)
[2016-07-07 05:56] LABS: ANION GAP 12 (5-19); BLOOD UREA NITROGEN 20 mg/dL (7-20); CARBON DIOXIDE 32 mmol/L (22-30); CHLORIDE 98 mmol/L (98-107); CREATININE RESULT 1.05 mg/dL (0.52-1.25); GLUCOSE 152 mg/dL (75-110); POTASSIUM 3.5 mmol/L (3.6-5.0); SODIUM 142.1 mmol/L (137-145)
[2016-07-07] MEDS ORDERED: LIDOCAINE 5% (700 MG) TRANSDERMAL ADH..PATCH TP ONE (07:20)
--- NOTE | 2016-07-07 07:20 | ER Document Report ---
ED General - General Chief Complaint: Chest Pain Stated Complaint: CHEST PAIN TRAVEL OUTSIDE OF THE [place] IN LAST 30 DAYS: No - HPI Patient complains to provider of: chest pain coughing Notes: Patient has a history of stroke and somewhat of a difficult historian due to speech impairment due to the strokes. But patient states increased calls her last few days chest pain center chest that increases with movement ongoing for since 2100 hrs. time prior to arrival. Patient denies any shortness of breath nausea vomiting fevers chills changes in medication recent travel. Patient upon evaluation sleeping comfortably easily arousable. - Related Data Allergies/Adverse Reactions: captopril [From Capoten] Allergy (Severe, Verified 06/23/16 04:55) Angioedema atorvastatin calcium [From Lipitor] Allergy (Intermediate, Verified 06/23/16 04: 55) Angioedema atorvastatin [From Lipitor] Allergy (Verified 06/23/16 04:55) clopidogrel [From Plavix] Allergy (Verified 06/23/16 04:55) rosuvastatin [From Crestor] Allergy (Verified 06/23/16 04:55) simvastatin [From Zocor] Allergy (Verified 06/23/16 04:55) Angioedema Past Medical History - Social History Smoking Status: Never Smoker Chew tobacco use (# tins/day): No Frequency of alcohol use: None Drug Abuse: None Family History: CAD, DM, Hypertension, Thyroid Disfunction Patient has suicidal ideation: No Patient has homicidal ideation: No - Past Medical History Cardiac Medical History: Reports: Hx Congestive Heart Failure, Hx Coronary Artery Disease, Hx Heart Attack - 2008, Hx Hypercholesterolemia, Hx Hypertension Denies: Hx Heart Murmur Pulmonary Medical History: Reports: Hx Asthma, Hx Bronchitis, Hx COPD, Hx Sleep Apnea Denies: Hx Respiratory Failure, Hx Tuberculosis Neurological Medical History: Reports: Hx Cerebrovascular Accident - x 2. Denies: Hx Seizures Endocrine Medical History: Reports: Hx Diabetes Mellitus Type 1, Hx Diabetes Mellitus Type 2 Renal/ Medical History: Denies: Hx Peritoneal Dialysis Malignancy Medical History: GI Medical History: Reports: Hx Diverticulitis, Hx Gastroesophageal Reflux Disease Musculoskeltal Medical History: Reports Hx Arthritis, Reports Hx Musculoskeletal Deformity, Reports Hx Musculoskeletal Trauma Psychiatric Medical History: Reports: Hx Anxiety, Hx Post Traumatic Stress Disorder Denies: Hx Depression Traumatic Medical History: Denies: Hx Fractures Infectious Medical History: Past Surgical History: Reports: Hx Abdominal Surgery - for diverticulitis, Hx Bowel Surgery - Colon resection due to diverticulitis, Hx Cardiac Catheterization, Hx Cardiac Surgery - 1984, ICD placement 2015, Hx Coronary Artery Bypass Graft, Hx Coronary Stent - 1984, Hx Thyroid Surgery, Other - AICD - Immunizations Immunizations up to date: Yes Hx Diphtheria, Pertussis, Tetanus Vaccination: Yes Hx Pneumococcal Vaccination: 05/26/10 Review of Systems - Review of Systems Constitutional: No symptoms reported EENT: No symptoms reported Cardiovascular: Chest pain Respiratory: No symptoms reported Gastrointestinal: No symptoms reported Genitourinary: No symptoms reported Male Genitourinary: No symptoms reported Musculoskeletal: No symptoms reported Skin: No symptoms reported Hematologic/Lymphatic: No symptoms reported Neurological/Psychological: No symptoms reported -: Yes All other systems reviewed and negative Physical Exam - Vital signs Vitals: Temp Pulse Resp BP Pulse Ox 98.1 F 102 H 20 116/81 96 07/07/16 03:38 07/07/16 03:38 07/07/16 03:38 07/07/16 03:38 07/07/16 03:38 Interpretation: Normal - General General appearance: Appears well, Alert - HEENT Head: Normocephalic, Atraumatic Eyes: Normal Pupils: PERRL - Respiratory Respiratory status: No respiratory distress Chest status: Tender - Tenderness palpation of the center of the chest Breath sounds: Normal Chest palpation: Normal - Cardiovascular Rhythm: Regular Heart sounds: Normal auscultation Murmur: No - Abdominal Inspection: Normal Distension: No distension Bowel sounds: Normal Tenderness: Nontender Organomegaly: No organomegaly - Back Back: Normal, Nontender - Extremities General upper extremity: Normal inspection, Nontender, Normal color, Normal ROM , Normal temperature General lower extremity: Normal inspection, Nontender, Normal color, Normal ROM , Normal temperature, Normal weight bearing. No: Kadi's sign - Neurological Neuro grossly intact: Yes Cognition: Normal Orientation: AAOx4 [place] Coma Scale Eye Opening: Spontaneous [place] Coma Scale Verbal: Oriented [place] Coma Scale Motor: Obeys Commands [place] Coma Scale Total: 15 Speech: Normal Motor strength normal: LUE, RUE, LLE, RLE Sensory: Normal - Psychological Associated symptoms: Normal affect, Normal mood - Skin Skin Temperature: Warm Skin Moisture: Dry Skin Color: Normal Course - Re-evaluation Re-evalutation: 07/07/16 15:04 The patient has atypical chest pain as the patient's chest pain is not suggestive of pulmonary embolus, cardiac ischemia, aortic dissection, or other serious etiology. Given the extremely low risk of these diagnoses further testing and evaluation for these possibilities does not appear to be indicated at this time. The patient has been instructed to return if the symptoms worsen or change in any way. - Vital Signs Vital signs: Temp Pulse Resp BP Pulse Ox 98.3 F 98 23 H 120/97 H 97 07/07/16 07:37 07/07/16 07:37 07/07/16 07:37 07/07/16 07:37 07/07/16 07:37 - Laboratory Result Diagrams: 07/07/16 05:20 07/07/16 05:20 Laboratory results interpreted by me: 07/07/16 07/07/16 05:20 05:20 MCH 26.3 L RDW 16.2 H Potassium 3.5 L Carbon Dioxide 32 H Glucose 152 H Discharge - Discharge Clinical Impression: Chest pain of uncertain etiology, Cough, Chest wall pain Condition: Good Disposition: HOME, SELF-CARE Instructions: Chest Pain of Unclear Cause ([facility]), Chest Wall Pain ([facility]) Additional Instructions: Please take medication as prescribed. Please follow-up with your primary care physician. Return to the ER symptoms worsen. There is no signs of any cardiac damage you have no signs pneumonia on chest x- ray. Please follow-up with your physician. Prescriptions: Guaifenesin [Mucinex] 600 mg PO Q12 #20 tab.er.12h Lidocaine [Lidoderm 5% (700 mg) Transdermal Patch] 1 patch TP DAILY #30 adh..patch
[2016-07-07 07:38] VITALS: BP 120/97
--- NOTE | 2016-07-07 11:02 | EKG REPORT ---
SEVERITY:- ABNORMAL ECG - SINUS TACHYCARDIA NONSPECIFIC INTRAVENTRICULAR CONDUCTION DELAY LOW VOLTAGE WITH RIGHT AXIS DEVIATION : Confirmed by: Zac Brandon MD 07-Jul-2016 11:01:56
== END 2016-07-07 07:38 | disposition home or self-care (01) ==
LOC: ER 03:29
DX: R07.89 Other chest pain (principal); R05 Cough
CPT/HCPCS: 36415; 71010; 80048; 84484; 85025; 93005; 93010; 99285

== ENCOUNTER 2016-07-19 05:35 | Emergency (ER) | payer OTHER, MEDICARE ==
[2016-07-19 05:42] VITALS: BP 132/87
[2016-07-19] MEDS ORDERED: ASPIRIN 81 MG TABLET, CHEWABLE PO ONE ×2 (06:06→06:07)
[2016-07-19 06:28] LABS: ABSOLUTE EOSINOPHILS # (AUTO) 0.2 10^3/uL (0.0-0.6); ABSOLUTE LYMPHOCYTES (AUTO) 1.5 10^3/uL (0.5-4.7); ABSOLUTE MONOCYTES (AUTO) 1.2 10^3/uL (0.1-1.4); ABSOLUTE NEUT (AUTO) 4.6 10^3/uL (1.7-8.2); BASOPHILS % (AUTO) 0.6 % (0-2); EOSINOPHILS % (AUTO) 2.8 % (0-6); HEMATOCRIT 42.6 % (37.9-51.0); HEMOGLOBIN 14.2 g/dL (13.5-17.0); LYMPHOCYTES % (AUTO) 19.9 % (13-45); MEAN CORPUSCULAR HEMOGLOBIN 26.8 pg (27.0-33.4); MEAN CORPUSCULAR HGB CONC 33.3 g/dL (32.0-36.0); MEAN CORPUSCULAR VOLUME 80 fl (80-97); MONOCYTES % (AUTO) 15.6 % (3-13); RED BLOOD COUNT 5.29 10^6/uL (4.35-5.55); RED CELL DISTRIBUTION WIDTH 16.2 % (11.5-14.0); SEGMENTED NEUTROPHILS % (AUTO) 61.1 % (42-78); WHITE BLOOD COUNT 7.6 10^3/uL (4.0-10.5)
[2016-07-19 06:47] LABS: ALANINE AMINOTRANSFERASE 32 U/L (21-72); ALBUMIN 4.2 g/dL (3.5-5.0); ALKALINE PHOSPHATASE 63 U/L (38-126); ANION GAP 15 (5-19); ASPARTATE AMINO TRANSFERASE 24 U/L (17-59); BILIRUBIN,TOTAL 0.6 mg/dL (0.2-1.3); BLOOD UREA NITROGEN 17 mg/dL (7-20); CALCIUM 9.1 mg/dL (8.4-10.2); CARBON DIOXIDE 26 mmol/L (22-30); CHLORIDE 101 mmol/L (98-107); CREATINE KINASE 128 U/L (55-170); GLUCOSE 151 mg/dL (75-110); POTASSIUM 3.7 mmol/L (3.6-5.0); SODIUM 141.5 mmol/L (137-145); TOTAL PROTEIN 6.6 g/dL (6.3-8.2)
[2016-07-19 06:59] LABS: CREATINE KINASE MB 2.18 ng/mL (<4.55)
[2016-07-19 07:06] LABS: TROPONIN I 0.063 ng/mL
--- NOTE | 2016-07-19 07:20 | ER Document Report ---
ED General - General Chief Complaint: Chest Pain > 30 Stated Complaint: CHEST PAIN Mode of Arrival: Wheelchair Information source: Patient Notes: 60-year-old male history of CVA with multiple previous episodes of chest pain presents with complaints of chest pain. Patient notes it is sharp right-sided associated with palpation. Patient notes when you press on it hurts. Patient notes he does have an AICD which has not fired. Patient does not admit to any left-sided pressure. Patient does note that he had a heart catheterization in January TRAVEL OUTSIDE OF THE [place] IN LAST 30 DAYS: No - HPI Onset: Just prior to arrival Onset/Duration: Sudden Quality of pain: Sharp Severity: Mild Pain Level: 1 Associated symptoms: Chest pain Exacerbated by: Movement Relieved by: Denies Similar symptoms previously: Yes Recently seen / treated by doctor: Yes - Related Data Allergies/Adverse Reactions: captopril [From Capoten] Allergy (Severe, Verified 06/23/16 04:55) Angioedema atorvastatin calcium [From Lipitor] Allergy (Intermediate, Verified 06/23/16 04: 55) Angioedema atorvastatin [From Lipitor] Allergy (Verified 06/23/16 04:55) clopidogrel [From Plavix] Allergy (Verified 06/23/16 04:55) rosuvastatin [From Crestor] Allergy (Verified 06/23/16 04:55) simvastatin [From Zocor] Allergy (Verified 06/23/16 04:55) Angioedema Past Medical History - Social History Smoking Status: Never Smoker Cigarette use (# per day): No Chew tobacco use (# tins/day): No Smoking Education Provided: No Frequency of alcohol use: None Drug Abuse: None Family History: CAD, DM, Hypertension, Thyroid Disfunction Patient has suicidal ideation: No Patient has homicidal ideation: No - Past Medical History Cardiac Medical History: Reports: Hx Congestive Heart Failure, Hx Coronary Artery Disease, Hx Heart Attack - 2009, Hx Hypercholesterolemia, Hx Hypertension Denies: Hx Heart Murmur Pulmonary Medical History: Reports: Hx Asthma, Hx Bronchitis, Hx COPD, Hx Sleep Apnea Denies: Hx Respiratory Failure, Hx Tuberculosis Neurological Medical History: Reports: Hx Cerebrovascular Accident - x 2. Denies: Hx Seizures Endocrine Medical History: Reports: Hx Diabetes Mellitus Type 1, Hx Diabetes Mellitus Type 2 Renal/ Medical History: Denies: Hx Peritoneal Dialysis Malignancy Medical History: GI Medical History: Reports: Hx Diverticulitis, Hx Gastroesophageal Reflux Disease Musculoskeltal Medical History: Reports Hx Arthritis, Reports Hx Musculoskeletal Deformity, Reports Hx Musculoskeletal Trauma Psychiatric Medical History: Reports: Hx Anxiety, Hx Post Traumatic Stress Disorder Denies: Hx Depression Traumatic Medical History: Denies: Hx Fractures Infectious Medical History: Past Surgical History: Reports: Hx Abdominal Surgery - for diverticulitis, Hx Bowel Surgery - Colon resection due to diverticulitis, Hx Cardiac Catheterization, Hx Cardiac Surgery - 1984, ICD placement 2015, Hx Coronary Artery Bypass Graft, Hx Coronary Stent - 1984, Hx Thyroid Surgery, Other - AICD - Immunizations Immunizations up to date: Yes Hx Diphtheria, Pertussis, Tetanus Vaccination: Yes Hx Pneumococcal Vaccination: 05/26/10 Review of Systems - Review of Systems Notes: REVIEW OF SYSTEMS: CONSTITUTIONAL : Denies fever, chills, or sweats. Denies recent illness. EENT: Denies eye, ear, throat, or mouth pain or symptoms. Denies nasal or sinus congestion or discharge. Denies throat, tongue, or mouth swelling or difficulty swallowing. CARDIOVASCULAR: Admits to chest pain RESPIRATORY: Denies cough, cold, or chest congestion. Denies shortness of breath, difficulty breathing, or wheezing. GASTROINTESTINAL: Denies abdominal pain or distention. Denies nausea, vomiting , or diarrhea. Denies blood in vomitus, stools, or per rectum. Denies black, tarry stools. Denies constipation. GENITOURINARY: Denies difficulty urinating, painful urination, burning, frequency, blood in urine, or discharge. MUSCULOSKELETAL: Denies back or neck pain or stiffness. Denies joint pain or swelling. SKIN: Denies rash, lesions or sores. HEMATOLOGIC : Denies easy bruising or bleeding. LYMPHATIC: Denies swollen, enlarged glands. NEUROLOGICAL: Denies confusion or altered mental status. Denies passing out or loss of consciousness. Denies dizziness or lightheadedness. Denies headache. Denies weakness or paralysis or loss of use of either side. Denies problems with gait or speech. Denies sensory loss, numbness, or tingling. Denies seizures. PSYCHIATRIC: Denies anxiety or stress. Denies depression, suicidal ideation, or homicidal ideation. ALL OTHER SYSTEMS REVIEWED AND NEGATIVE. Dictation was performed using [employer] recognition software PHYSICAL EXAMINATION: GENERAL: Well-appearing, well-nourished and in no acute distress. HEAD: Atraumatic, normocephalic. EYES: Pupils equal round and reactive to light, extraocular movements intact, sclera anicteric, conjunctiva are normal. ENT: Nares patent, oropharynx clear without exudates. Moist mucous membranes. NECK: Normal range of motion, supple without lymphadenopathy LUNGS: Breath sounds clear to auscultation bilaterally and equal. No wheezes rales or rhonchi. HEART: AICD noted Regular rate and rhythm without murmurs ABDOMEN: Soft, nontender, nondistended abdomen. No guarding, no rebound. No masses appreciated. Musculoskeletal: Normal range of motion, no pitting or edema. No cyanosis. NEUROLOGICAL: Baseline mentation, baseline weakness. Patient was able to ambulate from wheelchair to bed PSYCH: Normal mood, normal affect. SKIN: Warm, Dry, normal turgor, no rashes or lesions noted. Physical Exam - Vital signs Vitals: Temp Pulse Resp BP Pulse Ox 97.8 F 102 H 22 H 132/87 H 95 07/19/16 05:39 07/19/16 05:39 07/19/16 05:39 07/19/16 05:39 07/19/16 05:39 Course - Re-evaluation Re-evalutation: 07/19/16 07:20 Patient's cardiac enzyme was negative, I do not believe this is cardiac in nature given that it is reproducible on palpation and the patient has now presented multiple times for similar chest pains. Given that patient had a recent heart catheterization which she states is normal, and the AICD did not actually fire there does not appear to be any life-threatening issues. Patient will be discharged to follow-up with his own level vial setter in [place] After performing a Medical Screening Examination, I estimate there is LOW risk for RUPTURED ESOPHAGUS, PNEUMOTHORAX, PULMONARY EMBOLISM, ACUTE CORONARY SYNDROME, OR THORACIC AORTIC DISSECTION, thus I consider the discharge disposition reasonable. The patient and I have discussed the diagnosis and risks , and we agree with discharging home with close follow-up. We also discussed returning to the Emergency Department immediately if new or worsening symptoms occur. We have discussed the symptoms which are most concerning (e.g., bloody sputum, worsening pain or shortness of breath) that necessitate immediate return. - Vital Signs Vital signs: Temp Pulse Resp BP Pulse Ox 97.8 F 102 H 22 H 132/87 H 95 07/19/16 05:39 07/19/16 05:39 07/19/16 05:39 07/19/16 05:39 07/19/16 05:39 - Laboratory Result Diagrams: 07/19/16 06:18 07/19/16 06:18 Laboratory results interpreted by me: 07/19/16 07/19/16 06:18 06:18 MCH 26.8 L RDW 16.2 H Monocytes % 15.6 H Glucose 151 H - EKG Interpretation by Me EKG shows normal: Sinus rhythm, [place], Intervals, QRS Complexes Discharge - Discharge Clinical Impression: Chest pain of uncertain etiology, Left arm weakness Condition: Stable Disposition: HOME, SELF-CARE Instructions: Chest Pain of Unclear Cause ([facility]), Chest Wall Pain ([facility]) Additional Instructions: You must follow-up with your level vial setter in [place]
[2016-07-19] MEDS ORDERED: KETOROLAC TROMETHAMINE 10 MG TABLET PO ONE (07:21)
--- NOTE | 2016-07-19 16:55 | EKG REPORT ---
SEVERITY:- ABNORMAL ECG - SINUS RHYTHM PROBABLE LEFT ATRIAL ABNORMALITY IRBBB AND LPFB : Confirmed by: Carolyn Garsia MD 19-Jul-2016 16:54:04
== END 2016-07-19 09:00 | disposition home or self-care (01) ==
LOC: ER 05:35
DX: R07.9 Chest pain, unspecified (principal); R00.2 Palpitations; R53.1 Weakness; I25.10 Atherosclerotic heart disease of native coronary artery without angina pectoris; I25.2 Old myocardial infarction; I10 Essential (primary) hypertension; J44.9 Chronic obstructive pulmonary disease, unspecified; J45.909 Unspecified asthma, uncomplicated; E11.9 Type 2 diabetes mellitus without complications; Z95.1 Presence of aortocoronary bypass graft; Z95.810 Presence of automatic (implantable) cardiac defibrillator; Z98.61 Coronary angioplasty status; Z88.8 Allergy status to other drugs, medicaments and biological substances; Z86.73 Personal history of transient ischemic attack (TIA), and cerebral infarction without residual deficits
CPT/HCPCS: 93005; 99285; 36415; 82553; 82550; 85025; 80053; 84484; 71010; 93010; J3490

== ENCOUNTER 2016-07-20 09:21 | Emergency (ER) | payer OTHER, MEDICARE ==
[2016-07-20] MEDS ORDERED: ASPIRIN 81 MG TABLET, CHEWABLE PO ONE (09:28)
--- NOTE | 2016-07-20 10:05 | ER Document Report ---
ED Respiratory Problem - General Mode of Arrival: Medic Information source: Patient TRAVEL OUTSIDE OF THE [place] IN LAST 30 DAYS: No - HPI Patient complains to provider of: Hurts to breath Associated symptoms: Other - See above <PARVEEN MARTINEZ - Last Filed: 07/20/16 10:10> <AUTUMN LANE - Last Filed: 07/20/16 12:07> - General Chief Complaint: Breathing Difficulty Stated Complaint: hurts to breath Notes: Patient is a 60 year old male, with a past medical history including CVA, who presents to the emergency department via EMS complaining of painful breathing. Patient reports that the pain is all across his chest when he breaths and that he has difficulty breathing as well. Patient reports that he "has asthma real bad" and is dizzy. Patient is at 98% on room air. Patient states that he has been using his inhaler at home with no relief. Patient becomes anxious and agitated when describing his symptoms with difficulty from a speech impairment. Patient was seen at this facility yesterday for chest pain. Patient has come to the ER 8 times this year already. (PARVEEN MARTINEZ) - Related Data Allergies/Adverse Reactions: captopril [From Capoten] Allergy (Severe, Verified 07/20/16 11:24) Angioedema atorvastatin calcium [From Lipitor] Allergy (Intermediate, Verified 07/20/16 11: 24) Angioedema atorvastatin [From Lipitor] Allergy (Verified 07/20/16 11:24) clopidogrel [From Plavix] Allergy (Verified 07/20/16 11:24) rosuvastatin [From Crestor] Allergy (Verified 07/20/16 11:24) simvastatin [From Zocor] Allergy (Verified 07/20/16 11:24) Angioedema Past Medical History - General Information source: Patient - Social History Smoking Status: Unknown if Ever Smoked Family History: Reviewed & Not Pertinent, CAD, DM, Hypertension, Thyroid Disfunction - Past Medical History Cardiac Medical History: Reports: Hx Congestive Heart Failure, Hx Coronary Artery Disease, Hx Heart Attack - 2009, Hx Hypercholesterolemia, Hx Hypertension Pulmonary Medical History: Reports: Hx Asthma, Hx Bronchitis, Hx COPD, Hx Sleep Apnea Neurological Medical History: Reports: Hx Cerebrovascular Accident - x 2 Endocrine Medical History: Reports: Hx Diabetes Mellitus Type 1, Hx Diabetes Mellitus Type 2 Renal/ Medical History: Malignancy Medical History: GI Medical History: Reports: Hx Diverticulitis, Hx Gastroesophageal Reflux Disease Musculoskeltal Medical History: Reports Hx Arthritis, Reports Hx Musculoskeletal Deformity, Reports Hx Musculoskeletal Trauma Psychiatric Medical History: Reports: Hx Anxiety, Hx Post Traumatic Stress Disorder Infectious Medical History: Past Surgical History: Reports: Hx Abdominal Surgery - for diverticulitis, Hx Bowel Surgery - Colon resection due to diverticulitis, Hx Cardiac Catheterization, Hx Cardiac Surgery - 1984, ICD placement 2015, Hx Coronary Artery Bypass Graft, Hx Coronary Stent - 1984, Hx Thyroid Surgery, Other - AICD - Immunizations Immunizations up to date: Yes Hx Diphtheria, Pertussis, Tetanus Vaccination: Yes Hx Pneumococcal Vaccination: 05/26/10 <PARVEEN MARTINEZ - Last Filed: 07/20/16 10:10> Review of Systems - Review of Systems Constitutional: No symptoms reported EENT: No symptoms reported Cardiovascular: See HPI, Dizziness Respiratory: See HPI, Hurts to breathe, Other - Difficulty breathing Gastrointestinal: No symptoms reported Genitourinary: No symptoms reported Male Genitourinary: No symptoms reported Musculoskeletal: No symptoms reported Skin: No symptoms reported Hematologic/Lymphatic: No symptoms reported Neurological/Psychological: No symptoms reported -: Yes All other systems reviewed and negative <PARVEEN MARTINEZ - Last Filed: 07/20/16 10:10> Physical Exam - Vital signs Interpretation: Normal - General General appearance: Appears well, Alert - HEENT Head: Normocephalic, Atraumatic - Respiratory Respiratory status: No respiratory distress Chest status: Nontender Breath sounds: Rhonchi - mild, with cough, Wheezing - mild, with cough Chest palpation: Normal - Cardiovascular Rhythm: Regular Heart sounds: Normal auscultation Murmur: No - Back Back: Normal, Nontender - Extremities General upper extremity: Normal inspection General lower extremity: Normal inspection - Neurological Neuro grossly intact: Yes Cognition: Normal Orientation: AAOx4 Dorsey Coma Scale Eye Opening: Spontaneous Dorsey Coma Scale Verbal: Oriented Dorsey Coma Scale Motor: Obeys Commands Magalis Coma Scale Total: 15 - Psychological Associated symptoms: Normal affect, Normal mood - Skin Skin Temperature: Warm Skin Moisture: Dry Skin Color: Normal <PARVEEN MARTINEZ - Last Filed: 07/20/16 10:10> Course <PARVEEN MARTINEZ - Last Filed: 07/20/16 10:10> - Laboratory Result Diagrams: 07/20/16 10:30 07/20/16 10:30 - Diagnostic Test Radiology reviewed: Image reviewed, Reports reviewed - Chest x-ray shows chronically enlarged heart, no acute process - EKG Interpretation by Me EKG shows normal: Sinus rhythm, [place], Intervals, QRS Complexes. abnormal: ST-T Waves - Borderline inferior T abnormalities Rate: Tachycardia - 103 P Waves: LAE When compared to previous EKG there are: No significant change <AUTUMN LANE - Last Filed: 07/20/16 12:07> - Re-evaluation Re-evalutation: 07/20/16 11:59 Wheezes are improved following the albuterol and Atrovent treatment. When I advised the patient is being discharged home, he got quite agitated and animated, he began slapping his abdomen and stuttering stating he was hurting real bad in there. When I told him he probably just needed to have a bowel movement, then he began striking at his left chest stating he was hurting real bad in there. This is a common approach he uses when he does not want to go home. He was seen here yesterday for the same complaints, he has been here 8 times in 2 months for the same complaints. (AUTUMN LANE) - Vital Signs Vital signs: Temp Pulse Resp BP Pulse Ox 98.1 F 106 H 20 144/90 H 98 07/20/16 09:27 07/20/16 09:27 07/20/16 11:01 07/20/16 11:01 07/20/16 11:01 (PARVEEN MARTINEZ) (AUTUMN LANE) - Laboratory Laboratory results interpreted by me: 07/20/16 07/20/16 10:30 10:30 MCH 26.7 L RDW 16.3 H Monocytes % 14.5 H Potassium 3.5 L Glucose 128 H (AUT[address]N LANE) Discharge <PARVEEN MARTINEZ - Last Filed: 07/20/16 10:10> <AUTUMN LANE - Last Filed: 07/20/16 12:07> - Discharge Clinical Impression: Asthma, Chest wall pain Condition: Stable Disposition: HOME, SELF-CARE Additional Instructions: CONTINUE YOUR REGULAR MEDICATIONS. USE YOUR ALBUTEROL INHALER WHEN YOU ARE WHEEZING. FOLLOW UP WITH YOUR DOCTOR THIS WEEK FOR RECHECK. Scribe Attestation: 07/20/16 11:59 I personally performed the services described in the documentation, reviewed and edited the documentation which was dictated to the scribe in my presence, and it accurately records my words and actions. (AUTUMN LANE) Scribe Documentation - Scribe Written by Elviraibe:: lissa Stephen, 07/20/16, 1007 acting as scribe for :: Jonana <PARVEEN MARTINEZ - Last Filed: 07/20/16 10:10>
[2016-07-20] MEDS ORDERED: IPRATROPIUM/ALBUTEROL 0.5-2.5 MG/3 ML AMPUL NEB ONE (10:39)
[2016-07-20 10:52] LABS: ABSOLUTE EOSINOPHILS # (AUTO) 0.2 10^3/uL (0.0-0.6); ABSOLUTE LYMPHOCYTES (AUTO) 1.1 10^3/uL (0.5-4.7); ABSOLUTE MONOCYTES (AUTO) 0.9 10^3/uL (0.1-1.4); ABSOLUTE NEUT (AUTO) 4.1 10^3/uL (1.7-8.2); BASOPHILS % (AUTO) 0.4 % (0-2); EOSINOPHILS % (AUTO) 2.6 % (0-6); HEMATOCRIT 42.9 % (37.9-51.0); HEMOGLOBIN 14.1 g/dL (13.5-17.0); HGB HCT DIFFERENCE -0.6; LYMPHOCYTES % (AUTO) 17.1 % (13-45); MEAN CORPUSCULAR HEMOGLOBIN 26.7 pg (27.0-33.4); MEAN CORPUSCULAR HGB CONC 32.8 g/dL (32.0-36.0); MEAN CORPUSCULAR VOLUME 81 fl (80-97); MONOCYTES % (AUTO) 14.5 % (3-13); RED BLOOD COUNT 5.28 10^6/uL (4.35-5.55); RED CELL DISTRIBUTION WIDTH 16.3 % (11.5-14.0); SEGMENTED NEUTROPHILS % (AUTO) 65.4 % (42-78); WHITE BLOOD COUNT 6.3 10^3/uL (4.0-10.5)
[2016-07-20 11:11] LABS: ALANINE AMINOTRANSFERASE 28 U/L (21-72); ALBUMIN 4.1 g/dL (3.5-5.0); ALKALINE PHOSPHATASE 60 U/L (38-126); ANION GAP 14 (5-19); ASPARTATE AMINO TRANSFERASE 25 U/L (17-59); BILIRUBIN,TOTAL 0.6 mg/dL (0.2-1.3); BLOOD UREA NITROGEN 18 mg/dL (7-20); CALCIUM 9.5 mg/dL (8.4-10.2); CARBON DIOXIDE 28 mmol/L (22-30); CHLORIDE 103 mmol/L (98-107); CREATINE KINASE 136 U/L (55-170); CREATININE RESULT 1.07 mg/dL (0.52-1.25); GLUCOSE 128 mg/dL (75-110); POTASSIUM 3.5 mmol/L (3.6-5.0); SODIUM 144.6 mmol/L (137-145); TOTAL PROTEIN 6.8 g/dL (6.3-8.2)
[2016-07-20 11:23] LABS: CREATINE KINASE MB 2.26 ng/mL (<4.55)
[2016-07-20 11:27] LABS: TROPONIN I 0.059 ng/mL
[2016-07-20 12:28] VITALS: BP 109/80
--- NOTE | 2016-07-20 19:29 | EKG REPORT ---
SEVERITY:- BORDERLINE ECG - SINUS TACHYCARDIA PROBABLE LEFT ATRIAL ABNORMALITY BORDERLINE T ABNORMALITIES, INFERIOR LEADS : Confirmed by: Carolyn Garsia MD 20-Jul-2016 19:28:08
== END 2016-07-20 12:15 | disposition home or self-care (01) ==
LOC: ER 09:21
DX: J45.909 Unspecified asthma, uncomplicated (principal); R07.89 Other chest pain; R06.02 Shortness of breath
CPT/HCPCS: 93005; 94640; 99284; 36415; 82553; 82550; 85025; 80053; 84484; 71010; 93010; J7620

== ENCOUNTER 2016-09-06 08:22 | Emergency (ER) | payer OTHER, MEDICARE ==
--- NOTE | 2016-09-06 09:02 | ER Document Report ---
ED General - General Mode of Arrival: Ambulatory Information source: Patient TRAVEL OUTSIDE OF THE [place] IN LAST 30 DAYS: No - HPI Patient complains to provider of: Chest Pain Onset: This morning - 0700 Associated symptoms: Other - see notes above <DG MENESES - Last Filed: 09/06/16 08:56> <AUTUMN LANE - Last Filed: 09/06/16 10:28> - General Chief Complaint: Chest Pain Stated Complaint: DIZZINESS/CHEST PAIN Notes: 60 year old male with history of chest pain, CHF, CAD, hypertension, and hyperlipidemia presents to the ED complaining of chest pain that started this morning at 0700. Patient reports that he went to the opthamologist and was diagnosed with shingles to the right eye. Patient was prescribed valacyclovir. ( DG MENESES) - Related Data Allergies/Adverse Reactions: captopril [From Capoten] Allergy (Severe, Verified 07/20/16 11:24) Angioedema atorvastatin calcium [From Lipitor] Allergy (Intermediate, Verified 07/20/16 11: 24) Angioedema atorvastatin [From Lipitor] Allergy (Verified 07/20/16 11:24) clopidogrel [From Plavix] Allergy (Verified 07/20/16 11:24) rosuvastatin [From Crestor] Allergy (Verified 07/20/16 11:24) simvastatin [From Zocor] Allergy (Verified 07/20/16 11:24) Angioedema Past Medical History - General Information source: Patient - Social History Smoking Status: Unknown if Ever Smoked Family History: CAD, DM, Hypertension, Thyroid Disfunction Patient has suicidal ideation: No Patient has homicidal ideation: No - Past Medical History Cardiac Medical History: Reports: Hx Congestive Heart Failure, Hx Coronary Artery Disease, Hx Heart Attack - 2008, Hx Hypercholesterolemia, Hx Hypertension Pulmonary Medical History: Reports: Hx Asthma, Hx Bronchitis, Hx COPD, Hx Sleep Apnea Neurological Medical History: Reports: Hx Cerebrovascular Accident - x 2. Denies: Hx Seizures Endocrine Medical History: Reports: Hx Diabetes Mellitus Type 1, Hx Diabetes Mellitus Type 2 Renal/ Medical History: Denies: Hx Peritoneal Dialysis Malignancy Medical History: GI Medical History: Reports: Hx Diverticulitis, Hx Gastroesophageal Reflux Disease Musculoskeltal Medical History: Reports Hx Arthritis, Reports Hx Musculoskeletal Deformity, Reports Hx Musculoskeletal Trauma Psychiatric Medical History: Reports: Hx Anxiety, Hx Post Traumatic Stress Disorder Infectious Medical History: Past Surgical History: Reports: Hx Abdominal Surgery - for diverticulitis, Hx Bowel Surgery - Colon resection due to diverticulitis, Hx Cardiac Catheterization, Hx Cardiac Surgery - 1984, ICD placement 2015, Hx Coronary Artery Bypass Graft, Hx Coronary Stent - 1984, Hx Thyroid Surgery, Other - AICD - Immunizations Immunizations up to date: Yes Hx Diphtheria, Pertussis, Tetanus Vaccination: Yes Hx Pneumococcal Vaccination: 05/26/10 <DG MENESES - Last Filed: 09/06/16 08:56> Review of Systems - Review of Systems Constitutional: No symptoms reported EENT: No symptoms reported Cardiovascular: See HPI, Chest pain Respiratory: No symptoms reported Gastrointestinal: No symptoms reported Genitourinary: No symptoms reported Male Genitourinary: No symptoms reported Musculoskeletal: No symptoms reported Skin: No symptoms reported Hematologic/Lymphatic: No symptoms reported Neurological/Psychological: No symptoms reported -: Yes All other systems reviewed and negative <DG MENESES - Last Filed: 09/06/16 08:56> Physical Exam - General General appearance: Alert In distress: None - HEENT Head: Normocephalic, Atraumatic Eyes: Normal - It appears that the shingles infection is clearing up in patient' s right eye. Extraocular movements intact: Yes Pupils: PERRL - Respiratory Respiratory status: No respiratory distress Breath sounds: Normal Chest palpation: Tender - chest wall tenderness to palpation - Cardiovascular Rhythm: Regular Heart sounds: Normal auscultation - Abdominal Inspection: Normal - Back Back: Normal - Extremities General upper extremity: Normal inspection, Normal ROM General lower extremity: Normal inspection, Normal ROM - Neurological Neuro grossly intact: Yes - Psychological Associated symptoms: Normal affect, Normal mood - Skin Skin Temperature: Warm Skin Moisture: Dry Skin Color: Normal <MENESESDG - Last Filed: 09/06/16 08:56> Course <GIDEONDG - Last Filed: 09/06/16 08:56> - Laboratory Result Diagrams: 09/06/16 08:56 09/06/16 08:56 - EKG Interpretation by Mn EKG shows normal: Sinus rhythm, [place], QRS Complexes, ST-T Waves. abnormal: Intervals - Borderline QT interval Rate: Normal - 97 Rhythm: NSR, APC's [place]/QRS: RBBB, LAHB/LAFB P Waves: LAE When compared to previous EKG there are: No significant change <AUTUMN LANE - Last Filed: 09/06/16 10:28> - Re-evaluation Re-evalutation: 09/06/16 10:23 Patient's lab work is unremarkable with an indeterminate troponin which is in the range that he always presents with. EKG does not show any acute changes. Patient's presentation is similar to multiple previous presentations complaining of chest pain with an indeterminate troponin, chest wall tenderness on palpation, and no acute changes to EKG. He'll be discharged to continue his regular medications and follow-up with his primary care provider. (AUTUMN LANE) - Vital Signs Vital signs: Temp Pulse Resp BP Pulse Ox 98.1 F 97 29 H 125/94 H 91 L 09/06/16 08:32 09/06/16 08:32 09/06/16 09:36 09/06/16 09:01 09/06/16 09:36 - Laboratory Laboratory results interpreted by me: 09/06/16 09/06/16 08:56 08:56 MCH 26.4 L RDW 16.4 H Monocytes % 13.6 H Sodium 145.8 H Carbon Dioxide 31 H Glucose 132 H Discharge <DG MENESES - Last Filed: 09/06/16 08:56> <AUTUMN LANE - Last Filed: 09/06/16 10:28> - Discharge Clinical Impression: Chest pain Qualifiers: Chest pain type: unspecified Qualified Code(s): R07.9 - Chest pain, unspecified Condition: Stable Disposition: HOME, SELF-CARE Additional Instructions: Chest Pain of Unclear Cause: The exact cause of your chest pain isn't clear. Fortunately, there is no evidence of a dangerous medical condition. Further testing may be required to find the source of the pain. Most often, we find that this pain is coming from the chest wall -- the muscles or rib joints in the chest. But chest pain can come from the lung and lung lining, the esophagus, the heart valves or heart lining, and even the stomach or gallbladder. Rest. Eat lightly until the pain is gone. We may prescribe medicine for pain and inflammation. You should call the physician immediately if the pain radiates to the shoulder, jaw or arms; if you start to run a fever or develop a cough; or if you develop shortness of breath, or other new or alarming symptoms. CONTINUE YOUR REGULAR MEDICATIONS. FOLLOW UP WITH YOUR DOCTOR F NOT IMPROVING. RETURN TO THE EMERGENCY ROOM IF ANY NEW OR WORSENING SYMPTOMS. Referrals: BRANDAN BOCANEGRA MD [Primary Care Provider] - Follow up as needed Scribe Attestation: 09/06/16 10:25 I personally performed the services described in the documentation, reviewed and edited the documentation which was dictated to the scribe in my presence, and it accurately records my words and actions. (AUTUMN LANE) Scribe Documentation - Scribe Written by Hawa:: Hawa Sapp, 09/06/2016 0904 acting as scribe for :: Joanna <DG MENESES - Last Filed: 09/06/16 08:56>
[2016-09-06 09:18] LABS: ABSOLUTE BASOPHILS # (AUTO) 0.1 10^3/uL (0.0-0.2); ABSOLUTE EOSINOPHILS # (AUTO) 0.2 10^3/uL (0.0-0.6); ABSOLUTE LYMPHOCYTES (AUTO) 1.5 10^3/uL (0.5-4.7); ABSOLUTE MONOCYTES (AUTO) 0.8 10^3/uL (0.1-1.4); ABSOLUTE NEUT (AUTO) 3.6 10^3/uL (1.7-8.2); BASOPHILS % (AUTO) 1.1 % (0-2); EOSINOPHILS % (AUTO) 3.3 % (0-6); HEMATOCRIT 42.8 % (37.9-51.0); HEMOGLOBIN 13.9 g/dL (13.5-17.0); HGB HCT DIFFERENCE -1.1; LYMPHOCYTES % (AUTO) 23.8 % (13-45); MEAN CORPUSCULAR HEMOGLOBIN 26.4 pg (27.0-33.4); MEAN CORPUSCULAR HGB CONC 32.6 g/dL (32.0-36.0); MEAN CORPUSCULAR VOLUME 81 fl (80-97); MONOCYTES % (AUTO) 13.6 % (3-13); RED BLOOD COUNT 5.29 10^6/uL (4.35-5.55); RED CELL DISTRIBUTION WIDTH 16.4 % (11.5-14.0); SEGMENTED NEUTROPHILS % (AUTO) 58.2 % (42-78); WHITE BLOOD COUNT 6.2 10^3/uL (4.0-10.5)
[2016-09-06 09:39] LABS: ALANINE AMINOTRANSFERASE 28 U/L (21-72); ALBUMIN 4.1 g/dL (3.5-5.0); ALKALINE PHOSPHATASE 60 U/L (38-126); ANION GAP 13 (5-19); ASPARTATE AMINO TRANSFERASE 23 U/L (17-59); BILIRUBIN,DIRECT 0.1 mg/dL (0.0-0.4); BILIRUBIN,TOTAL 0.5 mg/dL (0.2-1.3); BLOOD UREA NITROGEN 19 mg/dL (7-20); CALCIUM 9.1 mg/dL (8.4-10.2); CARBON DIOXIDE 31 mmol/L (22-30); CHLORIDE 102 mmol/L (98-107); CREATINE KINASE 76 U/L (55-170); CREATININE RESULT 1.06 mg/dL (0.52-1.25); GLUCOSE 132 mg/dL (75-110); POTASSIUM 3.7 mmol/L (3.6-5.0); SODIUM 145.8 mmol/L (137-145); TOTAL PROTEIN 6.4 g/dL (6.3-8.2)
[2016-09-06 09:51] LABS: CREATINE KINASE MB 1.77 ng/mL (<4.55)
[2016-09-06 09:56] LABS: TROPONIN I 0.063 ng/mL
[2016-09-06 10:37] VITALS: BP 120/92
--- NOTE | 2016-09-06 16:28 | EKG REPORT ---
SEVERITY:- ABNORMAL ECG - SINUS RHYTHM VENTRICULAR PREMATURE COMPLEX PROBABLE LEFT ATRIAL ABNORMALITY IRBBB AND LPFB BORDERLINE PROLONGED QT INTERVAL : Confirmed by: Zac Brandon MD 06-Sep-2016 16:27:20
== END 2016-09-06 10:44 | disposition home or self-care (01) ==
LOC: ER 08:22
DX: R07.9 Chest pain, unspecified (principal); I50.9 Heart failure, unspecified; I11.0 Hypertensive heart disease with heart failure; I25.10 Atherosclerotic heart disease of native coronary artery without angina pectoris; E78.00 Pure hypercholesterolemia, unspecified; E11.9 Type 2 diabetes mellitus without complications; I25.2 Old myocardial infarction; Z95.1 Presence of aortocoronary bypass graft; Z86.73 Personal history of transient ischemic attack (TIA), and cerebral infarction without residual deficits; Z95.810 Presence of automatic (implantable) cardiac defibrillator
CPT/HCPCS: 36415; 80053; 82550; 82553; 84484; 85025; 93005; 93010; 99285

== ENCOUNTER 2016-09-15 21:46 | Emergency (ER) | payer OTHER, MEDICARE ==
[2016-09-15 21:51] VITALS: BP 115/76
[2016-09-15 23:50] LABS: ANION GAP 15 (5-19); BLOOD UREA NITROGEN 15 mg/dL (7-20); CALCIUM 8.9 mg/dL (8.4-10.2); CARBON DIOXIDE 30 mmol/L (22-30); CHLORIDE 100 mmol/L (98-107); CREATININE RESULT 1.05 mg/dL (0.52-1.25); GLUCOSE 143 mg/dL (75-110); POTASSIUM 3.7 mmol/L (3.6-5.0); SODIUM 145.4 mmol/L (137-145)
--- NOTE | 2016-09-15 23:54 | ER Document Report ---
ED General - General Chief Complaint: Dizziness Stated Complaint: DIZZINESS Notes: Patient is a 60-year-old male who frequently comes to emergency department for chest pain who again presents today with concerns of dizziness with associated chest discomfort that occurred for approximately 1-2 minutes 6-8 hours prior to arrival. He denies any symptoms since that time. States he did take 2 aspirin which he feels relieved his symptoms. Denies anything worsen his symptoms. States this feels similar to his prior episodes of chest pain. He has not seen his primary care doctor regarding today's concerns. He denies any associated shortness of breath, exertional chest pain or dyspnea. No trauma to the chest. TRAVEL OUTSIDE OF THE [place] IN LAST 30 DAYS: No - Related Data Allergies/Adverse Reactions: captopril [From Capoten] Allergy (Severe, Verified 07/20/16 11:24) Angioedema atorvastatin calcium [From Lipitor] Allergy (Intermediate, Verified 07/20/16 11: 24) Angioedema atorvastatin [From Lipitor] Allergy (Verified 07/20/16 11:24) clopidogrel [From Plavix] Allergy (Verified 07/20/16 11:24) rosuvastatin [From Crestor] Allergy (Verified 07/20/16 11:24) simvastatin [From Zocor] Allergy (Verified 07/20/16 11:24) Angioedema Past Medical History - General Information source: Patient - Social History Smoking Status: Former Smoker Frequency of alcohol use: None Drug Abuse: None Lives with: Family Family History: CAD, DM, Hypertension, Thyroid Disfunction Patient has suicidal ideation: No Patient has homicidal ideation: No - Past Medical History Cardiac Medical History: Reports: Hx Congestive Heart Failure, Hx Coronary Artery Disease, Hx Heart Attack - 2008, Hx Hypercholesterolemia, Hx Hypertension Pulmonary Medical History: Reports: Hx Asthma, Hx Bronchitis, Hx COPD, Hx Sleep Apnea Neurological Medical History: Reports: Hx Cerebrovascular Accident - x 2. Denies: Hx Seizures Endocrine Medical History: Reports: Hx Diabetes Mellitus Type 1, Hx Diabetes Mellitus Type 2 Renal/ Medical History: Denies: Hx Peritoneal Dialysis Malignancy Medical History: GI Medical History: Reports: Hx Diverticulitis, Hx Gastroesophageal Reflux Disease Musculoskeltal Medical History: Reports Hx Arthritis, Reports Hx Musculoskeletal Deformity, Reports Hx Musculoskeletal Trauma Psychiatric Medical History: Reports: Hx Anxiety, Hx Post Traumatic Stress Disorder Denies: Hx Depression Traumatic Medical History: Denies: Hx Fractures Infectious Medical History: Past Surgical History: Reports: Hx Abdominal Surgery - for diverticulitis, Hx Bowel Surgery - Colon resection due to diverticulitis, Hx Cardiac Catheterization, Hx Cardiac Surgery - 1984, ICD placement 2015, Hx Coronary Artery Bypass Graft, Hx Coronary Stent - 1984, Hx Thyroid Surgery, Other - AICD - Immunizations Immunizations up to date: Yes Hx Diphtheria, Pertussis, Tetanus Vaccination: Yes Hx Pneumococcal Vaccination: 05/26/10 Review of Systems - Review of Systems Notes: Constitutional: Negative for fever. HENT: Negative for sore throat. Eyes: Negative for visual changes. Cardiovascular: Positive for chest pain. Respiratory: Negative for shortness of breath. Gastrointestinal: Negative for abdominal pain, vomiting or diarrhea. Genitourinary: Negative for dysuria. Musculoskeletal: Negative for back pain. Skin: Negative for rash. Neurological: Negative for headaches, weakness or numbness. 10 point ROS negative except as marked above and in HPI. Physical Exam - Vital signs Vitals: Temp Pulse Resp BP Pulse Ox 98.3 F 98 20 115/76 92 09/15/16 21:49 09/15/16 21:49 09/15/16 21:49 09/15/16 21:49 09/15/16 21:49 Interpretation: Normal Notes: PHYSICAL EXAMINATION: GENERAL: Well-appearing, well-nourished and in no acute distress. HEAD: Atraumatic, normocephalic. EYES: Pupils equal round and reactive to light, extraocular movements intact, sclera anicteric, conjunctiva are normal. ENT: nares patent, oropharynx clear without exudates. Moist mucous membranes. NECK: Normal range of motion, supple without lymphadenopathy LUNGS: Breath sounds clear to auscultation bilaterally and equal. No wheezes rales or rhonchi. HEART: Regular rate and rhythm without murmurs ABDOMEN: Soft, nontender, normoactive bowel sounds. No guarding, no rebound. No masses appreciated. EXTREMITIES: Normal range of motion, no pitting or edema. No cyanosis. NEUROLOGICAL: No focal neurological deficits. Moves all extremities spontaneously and on command. PSYCH: Normal mood, normal affect. SKIN: Warm, Dry, normal turgor, no rashes or lesions noted. Course - Re-evaluation Re-evalutation: 09/15/16 23:51 Patient presents today with dizziness and chest pain earlier today that have since resolved. This is his 10th visit to the emergency department 2017 for the same complaint. He consistently has intermediate troponins. He denies any chest pain, shortness of breath or ongoing dizziness at this time. States he's been asymptomatic for at least 6 hours at the time of my assessment. EKG without ischemic changes. No symptoms suggest acute PE, aortic dissection, or pneumothorax.At this time will discharge with return precautions and follow-up recommendations. Verbal discharge instructions given a the bedside and opportunity for questions given. Medication warnings reviewed. Patient is in agreement with this plan and has verbalized understanding of return precautions and the need for primary care follow-up in the next 24-72 hours. - Vital Signs Vital signs: Temp Pulse Resp BP Pulse Ox 98.3 F 98 20 115/76 92 09/15/16 21:49 09/15/16 21:49 09/15/16 21:49 09/15/16 21:49 09/15/16 21:49 - Laboratory Result Diagrams: 09/15/16 23:30 Laboratory results interpreted by me: 09/15/16 23:30 Sodium 145.4 H Glucose 143 H - EKG Interpretation by Me Additional EKG results interpreted by me: 09/15/16 23:52 Normal sinus rhythm. Rate 92. Intermittent PVCs. No ST elevations or depressions. QTC is 476. Discharge - Discharge Clinical Impression: Chest pain of uncertain etiology Condition: Good Disposition: HOME, SELF-CARE Additional Instructions: You were seen today for chest pain. The exact cause of your pain is unclear. However, based on your cardiac enzyme testing, chest x-ray, and EKG it does not appear that it is from an immediately life-threatening cause at this time. Although your testing here is normal is critical that you follow-up with your primary care physician for continued evaluation of this chest pain and possible stress testing. I recommended you see your physician within the next 24-48 hours to be evaluated for consideration of a stress test. Please return to emergency department immediately if you have worsening of your chest pain, shortness of breath, vomiting, become unable to exert yourself due to pain or difficulty breathing, you pass out, or have any pain that radiates into your arms, jaw, or back. Please also return if you have any additional symptoms that are concerning to you. Referrals: BRANDAN BOCANEGRA MD [Primary Care Provider] - Follow up as needed
--- NOTE | 2016-09-16 10:39 | EKG REPORT ---
SEVERITY:- ABNORMAL ECG - SINUS RHYTHM VENTRICULAR PREMATURE COMPLEX PROBABLE INFERIOR INFARCT, AGE INDETERMINATE : Confirmed by: Pooja Patel 16-Sep-2016 10:38:47
== END 2016-09-16 00:20 | disposition home or self-care (01) ==
LOC: ER 21:46
DX: R07.9 Chest pain, unspecified (principal); R42 Dizziness and giddiness; Z87.891 Personal history of nicotine dependence
CPT/HCPCS: 36415; 80048; 84484; 93005; 93010; 99284

== ENCOUNTER 2016-11-05 13:22 | Emergency (ER) | payer OTHER, MEDICARE ==
--- NOTE | 2016-11-05 14:52 | ER Document Report ---
ED Medical Screen (RME) - General Chief Complaint: Chest Pain Stated Complaint: CHEST PAIN Time Seen by Provider: 11/05/16 14:47 Mode of Arrival: Wheelchair Information source: Patient Notes: This is a 60-year-old male with multiple medical problems to include prior CT, CVA, AICD who presents for evaluation of chest pain and headache. He states that he initially felt fine this morning however at about 8:00 while he was watching TV he developed substernal chest pain with an episode of diaphoresis. He took 2 aspirin at this time. A few hours later he developed a severe right- sided headache. His current chest pain is 2/10. No nausea or vomiting. He denies shortness of breath. Of note, he has some dysarthria from prior CVA and history is somewhat limited secondary to difficulty understanding his speech. I have greeted and performed a rapid initial assessment of this patient. A comprehensive ED assessment and evaluation of the patient, analysis of test results and completion of the medical decision making process will be conducted by additional ED providers. TRAVEL OUTSIDE OF THE [place] IN LAST 30 DAYS: No - Related Data Allergies/Adverse Reactions: captopril [From Capoten] Allergy (Severe, Verified 11/05/16 14:16) Angioedema atorvastatin calcium [From Lipitor] Allergy (Intermediate, Verified 11/05/16 14: 16) Angioedema atorvastatin [From Lipitor] Allergy (Verified 11/05/16 14:16) clopidogrel [From Plavix] Allergy (Verified 11/05/16 14:16) rosuvastatin [From Crestor] Allergy (Verified 11/05/16 14:16) simvastatin [From Zocor] Allergy (Verified 11/05/16 14:16) Angioedema Past Medical History - Social History Family history: None - Past Medical History Cardiac Medical History: Reports: Hx Congestive Heart Failure, Hx Coronary Artery Disease, Hx Heart Attack - 2009, Hx Hypercholesterolemia, Hx Hypertension Pulmonary Medical History: Reports: Hx Asthma, Hx Bronchitis, Hx COPD, Hx Sleep Apnea Neurological Medical History: Reports: Hx Cerebrovascular Accident - x 2. Denies: Hx Seizures Endocrine Medical History: Reports: Hx Diabetes Mellitus Type 1, Hx Diabetes Mellitus Type 2 Renal/ Medical History: Denies: Hx Peritoneal Dialysis Malignancy Medical History: GI Medical History: Reports: Hx Diverticulitis, Hx Gastroesophageal Reflux Disease Musculoskeltal Medical History: Reports Hx Arthritis, Reports Hx Musculoskeletal Deformity, Reports Hx Musculoskeletal Trauma Psychiatric Medical History: Reports: Hx Anxiety, Hx Post Traumatic Stress Disorder Denies: Hx Depression Traumatic Medical History: Denies: Hx Fractures Infectious Medical History: Past Surgical History: Reports: Hx Abdominal Surgery - for diverticulitis, Hx Bowel Surgery - Colon resection due to diverticulitis, Hx Cardiac Catheterization, Hx Cardiac Surgery - 1984, ICD placement 2015, Hx Coronary Artery Bypass Graft, Hx Coronary Stent - 1984, Hx Thyroid Surgery, Other - AICD - Immunizations Immunizations up to date: Yes Hx Diphtheria, Pertussis, Tetanus Vaccination: Yes Physical Exam - Vital signs Vitals: Temp Pulse Resp BP Pulse Ox 97.8 F 92 20 129/78 H 96 11/05/16 13:35 11/05/16 13:35 11/05/16 13:35 11/05/16 13:35 11/05/16 13:35 Course - Vital Signs Vital signs: Temp Pulse Resp BP Pulse Ox 97.8 F 92 20 129/78 H 96 11/05/16 13:35 11/05/16 13:35 11/05/16 13:35 11/05/16 13:35 11/05/16 13:35
[2016-11-05 15:12] LABS: ABSOLUTE EOSINOPHILS # (AUTO) 0.2 10^3/uL (0.0-0.6); ABSOLUTE LYMPHOCYTES (AUTO) 1.6 10^3/uL (0.5-4.7); ABSOLUTE MONOCYTES (AUTO) 0.9 10^3/uL (0.1-1.4); ABSOLUTE NEUT (AUTO) 3.8 10^3/uL (1.7-8.2); BASOPHILS % (AUTO) 0.8 % (0-2); EOSINOPHILS % (AUTO) 3.6 % (0-6); HEMATOCRIT 44.2 % (37.9-51.0); HEMOGLOBIN 14.7 g/dL (13.5-17.0); HGB HCT DIFFERENCE -0.1; LYMPHOCYTES % (AUTO) 24.1 % (13-45); MEAN CORPUSCULAR HEMOGLOBIN 27.5 pg (27.0-33.4); MEAN CORPUSCULAR HGB CONC 33.4 g/dL (32.0-36.0); MEAN CORPUSCULAR VOLUME 82 fl (80-97); MONOCYTES % (AUTO) 13.8 % (3-13); RED BLOOD COUNT 5.36 10^6/uL (4.35-5.55); RED CELL DISTRIBUTION WIDTH 15.9 % (11.5-14.0); SEGMENTED NEUTROPHILS % (AUTO) 57.7 % (42-78); WHITE BLOOD COUNT 6.6 10^3/uL (4.0-10.5)
[2016-11-05 15:30] LABS: ALANINE AMINOTRANSFERASE 36 U/L (21-72); ALBUMIN 4.3 g/dL (3.5-5.0); ALKALINE PHOSPHATASE 57 U/L (38-126); ANION GAP 12 (5-19); ASPARTATE AMINO TRANSFERASE 31 U/L (17-59); BILIRUBIN,DIRECT 0.3 mg/dL (0.0-0.4); BILIRUBIN,TOTAL 0.8 mg/dL (0.2-1.3); BLOOD UREA NITROGEN 17 mg/dL (7-20); CALCIUM 9.3 mg/dL (8.4-10.2); CARBON DIOXIDE 29 mmol/L (22-30); CHLORIDE 100 mmol/L (98-107); CREATINE KINASE 89 U/L (55-170); CREATININE RESULT 0.99 mg/dL (0.52-1.25); GLUCOSE 112 mg/dL (75-110); POTASSIUM 3.9 mmol/L (3.6-5.0); SODIUM 141.1 mmol/L (137-145); TOTAL PROTEIN 7.2 g/dL (6.3-8.2)
--- NOTE | 2016-11-05 15:30 | RADIOLOGY REPORT (SQ) ---
EXAM DESCRIPTION: CHEST SINGLE VIEW COMPLETED DATE/TIME: 11/05/2016 3:06 pm REASON FOR STUDY: chest pain COMPARISON: 07/19/2016. NUMBER OF VIEWS: One view. TECHNIQUE: Single frontal radiographic view of the chest acquired. LIMITATIONS: None. FINDINGS: LUNGS AND PLEURA: No opacities, masses or pneumothorax. No pleural effusion. MEDIASTINUM AND HILAR STRUCTURES: No masses. Contour normal. HEART AND VASCULAR STRUCTURES: Heart enlarged without failure. Normal vasculature. BONES: No acute findings. HARDWARE: Defibrillator. OTHER: No other significant finding. IMPRESSION: HEART ENLARGED WITHOUT FAILURE. NO OTHER SIGNIFICANT RADIOGRAPHIC FINDING IN THE CHEST. TECHNICAL DOCUMENTATION: JOB ID: [id number] [employer]- All Rights Reserved
--- NOTE | 2016-11-05 15:32 | RADIOLOGY REPORT (SQ) ---
EXAM DESCRIPTION: CT HEAD WITHOUT COMPLETED DATE/TIME: 11/05/2016 3:09 pm REASON FOR STUDY: severe headache COMPARISON: 06/26/2016. TECHNIQUE: Axial images acquired through the brain without intravenous contrast. Images reviewed wi th bone, brain and subdural windows. Images stored on PACS. All CT scanners at this facility use dose modulation, iterative reconstruction, and/or weight based d osing when appropriate to reduce radiation dose to as low as reasonably achievable (ALARA). [facility]: Dose Right [facility]: CareDose [facility]: Dose Right [facility]: Teradose 4D [facility]: Smart InCorta RADIATION DOSE: Up-to-date CT equipment and radiation dose reduction techniques were employed. CTDIv ol: 64.6 mGy. DLP: 1034 mGy-cm.mGy. LIMITATIONS: None. FINDINGS: VENTRICLES: Prominent. CEREBRUM: No masses. No hemorrhage. No midline shift. Areas of low density in the white matter mos t likely due to chronic micro-vascular ischemic change. Multiple old infarcts unchanged. No evidenc e for acute infarction. CEREBELLUM: No masses. No hemorrhage. No alteration of density. No evidence for acute infarction. EXTRAAXIAL SPACES: Age-related involutional change. No fluid collections. No masses. ORBITS AND GLOBE: No intra- or extraconal masses. Normal contour of globe without masses. CALVARIUM: No fracture. PARANASAL SINUSES: No fluid or mucosal thickening. SOFT TISSUES: No mass or hematoma. OTHER: No other significant finding. IMPRESSION: CHRONIC CHANGES OF ATROPHY AND MICROVASCULAR ISCHEMIA. MULTIPLE OLD INFARCTS. NO ACUTE PROCESS. TECHNICAL DOCUMENTATION: JOB ID: [id number] Quality ID # [id number]: Final reports with documentation of one or more dose reduction techniques (e.g., Au tomated exposure control, adjustment of the mA and/or kV according to patient size, use of iterative reconstruction technique) 2010 [employer]- All Rights Reserved
[2016-11-05 15:41] LABS: CREATINE KINASE MB 1.9 ng/mL (<4.55)
[2016-11-05 15:43] LABS: TROPONIN I 0.054 ng/mL
[2016-11-05 16:25] VITALS: BP 143/91
--- NOTE | 2016-11-05 16:31 | ER Document Report ---
ED General - General Chief Complaint: Chest Pain Stated Complaint: CHEST PAIN Time Seen by Provider: 11/05/16 14:47 Mode of Arrival: Wheelchair TRAVEL OUTSIDE OF THE [place] IN LAST 30 DAYS: No - HPI Patient complains to provider of: Chest pain Notes: Patient coming in for evaluation of chest pain. Patient has multiple visits here for chest pain in the past. Patient does have history of coronary artery disease and CVA. Patient was woke up this morning having chest pain with difficult sweating. Patient currently is chest pain-free. Patient states he did take aspirin prior to arrival. Patient resting comfortably upon my evaluation. Patient states last stress test was within this year that was negative. So states he did have a heavy smoking. Patient states no other symptoms. Patient denies a headache at this time. - Related Data Allergies/Adverse Reactions: captopril [From Capoten] Allergy (Severe, Verified 11/05/16 14:16) Angioedema atorvastatin calcium [From Lipitor] Allergy (Intermediate, Verified 11/05/16 14: 16) Angioedema atorvastatin [From Lipitor] Allergy (Verified 11/05/16 14:16) clopidogrel [From Plavix] Allergy (Verified 11/05/16 14:16) rosuvastatin [From Crestor] Allergy (Verified 11/05/16 14:16) simvastatin [From Zocor] Allergy (Verified 11/05/16 14:16) Angioedema Past Medical History - General Information source: Patient - Social History Smoking Status: Never Smoker Family History: CAD, DM, Hypertension, Thyroid Disfunction Patient has suicidal ideation: No Patient has homicidal ideation: No - Past Medical History Cardiac Medical History: Reports: Hx Congestive Heart Failure, Hx Coronary Artery Disease, Hx Heart Attack - 2008, Hx Hypercholesterolemia, Hx Hypertension Pulmonary Medical History: Reports: Hx Asthma, Hx Bronchitis, Hx COPD, Hx Sleep Apnea Neurological Medical History: Reports: Hx Cerebrovascular Accident - x 2. Denies: Hx Seizures Endocrine Medical History: Reports: Hx Diabetes Mellitus Type 1, Hx Diabetes Mellitus Type 2 Renal/ Medical History: Denies: Hx Peritoneal Dialysis Malignancy Medical History: GI Medical History: Reports: Hx Diverticulitis, Hx Gastroesophageal Reflux Disease Musculoskeltal Medical History: Reports Hx Arthritis, Reports Hx Musculoskeletal Deformity, Reports Hx Musculoskeletal Trauma Psychiatric Medical History: Reports: Hx Anxiety, Hx Post Traumatic Stress Disorder Denies: Hx Depression Traumatic Medical History: Denies: Hx Fractures Infectious Medical History: Past Surgical History: Reports: Hx Abdominal Surgery - for diverticulitis, Hx Bowel Surgery - Colon resection due to diverticulitis, Hx Cardiac Catheterization, Hx Cardiac Surgery - 1984, ICD placement 2015, Hx Coronary Artery Bypass Graft, Hx Coronary Stent - 1984, Hx Thyroid Surgery, Other - AICD - Immunizations Immunizations up to date: Yes Hx Diphtheria, Pertussis, Tetanus Vaccination: Yes Hx Pneumococcal Vaccination: 05/26/10 Review of Systems - Review of Systems Constitutional: No symptoms reported EENT: No symptoms reported Cardiovascular: Chest pain Respiratory: No symptoms reported Gastrointestinal: No symptoms reported Genitourinary: No symptoms reported Male Genitourinary: No symptoms reported Musculoskeletal: No symptoms reported Skin: No symptoms reported Hematologic/Lymphatic: No symptoms reported Neurological/Psychological: No symptoms reported -: Yes All other systems reviewed and negative Physical Exam - Vital signs Vitals: Temp Pulse Resp BP Pulse Ox 97.8 F 92 20 129/78 H 96 11/05/16 13:35 11/05/16 13:35 11/05/16 13:35 11/05/16 13:35 11/05/16 13:35 Interpretation: Normal - General General appearance: Appears well, Alert - HEENT Head: Normocephalic, Atraumatic Eyes: Normal Pupils: PERRL - Respiratory Respiratory status: No respiratory distress Chest status: Nontender Breath sounds: Normal Chest palpation: Normal - Cardiovascular Rhythm: Regular Heart sounds: Normal auscultation Murmur: No - Abdominal Inspection: Normal Distension: No distension Bowel sounds: Normal Tenderness: Nontender Organomegaly: No organomegaly - Back Back: Normal, Nontender - Extremities General upper extremity: Normal inspection, Nontender, Normal color, Normal ROM , Normal temperature General lower extremity: Normal inspection, Nontender, Normal color, Normal ROM , Normal temperature, Normal weight bearing. No: Kadi's sign - Neurological Neuro grossly intact: Yes Cognition: Normal Orientation: AAOx4 Magalis Coma Scale Eye Opening: Spontaneous Magalis Coma Scale Verbal: Oriented Magalis Coma Scale Motor: Obeys Commands [place] Coma Scale Total: 15 Speech: Other - Aphasia chronic Motor strength normal: LUE, RUE, LLE, RLE Sensory: Normal - Psychological Associated symptoms: Normal affect, Normal mood - Skin Skin Temperature: Warm Skin Moisture: Dry Skin Color: Normal Course - Re-evaluation Re-evalutation: 11/05/16 19:20 The patient has atypical chest pain as the patient's chest pain is not suggestive of pulmonary embolus, cardiac ischemia, aortic dissection, or other serious etiology. Given the extremely low risk of these diagnoses further testing and evaluation for these possibilities does not appear to be indicated at this time. The patient has been instructed to return if the symptoms worsen or change in any way. The patient presents with headache without signs of INGOT CASTER bleed, stroke, infection , or other serious etiology. The patient is neurologically intact. Given the extremely low risk of these diagnoses further testing and evaluation for these possibilities does not appear to be indicated at this time. The patient has been instructed to return if the symptoms worsen or change in any way.. - Vital Signs Vital signs: Temp Pulse Resp BP Pulse Ox 97.9 F 94 20 143/91 H 96 11/05/16 16:19 11/05/16 16:19 11/05/16 16:19 11/05/16 16:19 11/05/16 16:19 - Laboratory Result Diagrams: 11/05/16 15:00 11/05/16 15:00 Laboratory results interpreted by me: 11/05/16 11/05/16 15:00 15:00 RDW 15.9 H Monocytes % 13.8 H Glucose 112 H Discharge - Discharge Clinical Impression: Chest pain of uncertain etiology Headache Qualifiers: Headache type: unspecified Headache chronicity pattern: unspecified pattern Intractability: not intractable Qualified Code(s): R51 - Headache Condition: Good Disposition: HOME, SELF-CARE Instructions: Chest Pain of Unclear Cause ([facility]), Headache ([facility]) Additional Instructions: Please follow-up with your primary care physician for further evaluation. At this time your laboratory studies and physical examination do not reveal any critical etiology for your symptoms Referrals: BRANDAN BOCANEGRA MD [Primary Care Provider] - Follow up as needed
--- NOTE | 2016-11-05 22:30 | EKG REPORT ---
SEVERITY:- ABNORMAL ECG - SINUS RHYTHM NONSPECIFIC INTRAVENTRICULAR CONDUCTION DELAY PROBABLE INFERIOR INFARCT, AGE INDETERMINATE CONSIDER ANTERIOR INFARCT : Confirmed by: Pooja Patel 05-Nov-2016 22:29:37
== END 2016-11-05 16:36 | disposition home or self-care (01) ==
LOC: ER 13:22
DX: R07.9 Chest pain, unspecified (principal); R51 Headache; I25.10 Atherosclerotic heart disease of native coronary artery without angina pectoris; I50.9 Heart failure, unspecified; I11.0 Hypertensive heart disease with heart failure; Z95.1 Presence of aortocoronary bypass graft; Z95.810 Presence of automatic (implantable) cardiac defibrillator; Z86.73 Personal history of transient ischemic attack (TIA), and cerebral infarction without residual deficits; I25.2 Old myocardial infarction
CPT/HCPCS: 36415; 70450; 71010; 80053; 82550; 82553; 84484; 85025; 93005; 93010; 99285

== ENCOUNTER 2016-12-11 14:42 | Emergency (ER) | payer OTHER, MEDICARE ==
--- NOTE | 2016-12-11 15:44 | ER Document Report ---
ED Medical Screen (RME) - General Chief Complaint: Chest Pain Stated Complaint: CHEST PAIN WITH PACEMAKER Time Seen by Provider: 12/11/16 15:43 Notes: Patient's history is difficult due to his expressive aphasia from a previous stroke. Patient states that he developed chest tightness this morning with some shortness of breath. He denies cough. He also states he has had a headache and that his eyes feel heavy. Patient states she has had a previous heart attack and does have stents. TRAVEL OUTSIDE OF THE [place] IN LAST 30 DAYS: No - Related Data Allergies/Adverse Reactions: captopril [From Capoten] Allergy (Severe, Verified 11/05/16 14:16) Angioedema atorvastatin calcium [From Lipitor] Allergy (Intermediate, Verified 11/05/16 14: 16) Angioedema atorvastatin [From Lipitor] Allergy (Verified 11/05/16 14:16) clopidogrel [From Plavix] Allergy (Verified 11/05/16 14:16) rosuvastatin [From Crestor] Allergy (Verified 11/05/16 14:16) simvastatin [From Zocor] Allergy (Verified 11/05/16 14:16) Angioedema Past Medical History - Social History Family history: None - Past Medical History Cardiac Medical History: Reports: Hx Congestive Heart Failure, Hx Coronary Artery Disease, Hx Heart Attack - 2008, Hx Hypercholesterolemia, Hx Hypertension Pulmonary Medical History: Reports: Hx Asthma, Hx Bronchitis, Hx COPD, Hx Sleep Apnea Neurological Medical History: Reports: Hx Cerebrovascular Accident - x 2. Denies: Hx Seizures Endocrine Medical History: Reports: Hx Diabetes Mellitus Type 1, Hx Diabetes Mellitus Type 2 Renal/ Medical History: Denies: Hx Peritoneal Dialysis Malignancy Medical History: GI Medical History: Reports: Hx Diverticulitis, Hx Gastroesophageal Reflux Disease Musculoskeltal Medical History: Reports Hx Arthritis, Reports Hx Musculoskeletal Deformity, Reports Hx Musculoskeletal Trauma Psychiatric Medical History: Reports: Hx Anxiety, Hx Post Traumatic Stress Disorder Denies: Hx Depression Traumatic Medical History: Denies: Hx Fractures Infectious Medical History: Past Surgical History: Reports: Hx Abdominal Surgery - for diverticulitis, Hx Bowel Surgery - Colon resection due to diverticulitis, Hx Cardiac Catheterization, Hx Cardiac Surgery - 1984, ICD placement 2015, Hx Coronary Artery Bypass Graft, Hx Coronary Stent - 1984, Hx Thyroid Surgery, Other - AICD - Immunizations Immunizations up to date: Yes Hx Diphtheria, Pertussis, Tetanus Vaccination: Yes Physical Exam - Vital signs Vitals: Temp Pulse Resp BP Pulse Ox 98.2 F 91 14 122/78 98 12/11/16 14:54 12/11/16 14:54 12/11/16 14:54 12/11/16 14:54 12/11/16 14:54 Course - Vital Signs Vital signs: Temp Pulse Resp BP Pulse Ox 98.2 F 91 14 122/78 98 12/11/16 14:54 12/11/16 14:54 12/11/16 14:54 12/11/16 14:54 12/11/16 14:54
[2016-12-11 16:04] LABS: ABSOLUTE EOSINOPHILS # (AUTO) 0.2 10^3/uL (0.0-0.6); ABSOLUTE LYMPHOCYTES (AUTO) 1.5 10^3/uL (0.5-4.7); ABSOLUTE MONOCYTES (AUTO) 0.8 10^3/uL (0.1-1.4); ABSOLUTE NEUT (AUTO) 4.3 10^3/uL (1.7-8.2); BASOPHILS % (AUTO) 0.7 % (0-2); EOSINOPHILS % (AUTO) 3.2 % (0-6); HEMATOCRIT 44.8 % (37.9-51.0); HEMOGLOBIN 14.9 g/dL (13.5-17.0); HGB HCT DIFFERENCE -0.1; LYMPHOCYTES % (AUTO) 21.8 % (13-45); MEAN CORPUSCULAR HEMOGLOBIN 27.5 pg (27.0-33.4); MEAN CORPUSCULAR HGB CONC 33.2 g/dL (32.0-36.0); MEAN CORPUSCULAR VOLUME 83 fl (80-97); MONOCYTES % (AUTO) 11.3 % (3-13); RED BLOOD COUNT 5.42 10^6/uL (4.35-5.55); RED CELL DISTRIBUTION WIDTH 16.4 % (11.5-14.0); WHITE BLOOD COUNT 6.9 10^3/uL (4.0-10.5)
[2016-12-11 16:19] LABS: ALANINE AMINOTRANSFERASE 24 U/L (21-72); ALBUMIN 4.3 g/dL (3.5-5.0); ALKALINE PHOSPHATASE 73 U/L (38-126); ANION GAP 13 (5-19); ASPARTATE AMINO TRANSFERASE 23 U/L (17-59); BILIRUBIN,DIRECT 0.3 mg/dL (0.0-0.4); BILIRUBIN,TOTAL 0.5 mg/dL (0.2-1.3); BLOOD UREA NITROGEN 14 mg/dL (7-20); CALCIUM 9.3 mg/dL (8.4-10.2); CARBON DIOXIDE 28 mmol/L (22-30); CHLORIDE 103 mmol/L (98-107); CREATININE RESULT 0.98 mg/dL (0.52-1.25); GLUCOSE 113 mg/dL (75-110); POTASSIUM 3.7 mmol/L (3.6-5.0); SODIUM 143.5 mmol/L (137-145); TOTAL PROTEIN 7.1 g/dL (6.3-8.2)
--- NOTE | 2016-12-11 16:37 | RADIOLOGY REPORT (SQ) ---
EXAM DESCRIPTION: CHEST PA/LAT COMPLETED DATE/TIME: 12/11/2016 4:09 pm REASON FOR STUDY: sob COMPARISON: 11/05/2016 EXAM PARAMETERS: NUMBER OF VIEWS: two views TECHNIQUE: Digital Frontal and Lateral radiographic views of the chest acquired. RADIATION DOSE: NA LIMITATIONS: none FINDINGS: LUNGS AND PLEURA: No opacities, masses or pneumothorax. No pleural effusion. MEDIASTINUM AND HILAR STRUCTURES: No masses or contour abnormalities. HEART AND VASCULAR STRUCTURES: Cardiomegaly. There is no evidence of failure. BONES: No acute findings. HARDWARE: Pacemaker/defibrillator. OTHER: No other significant finding. IMPRESSION: Cardiomegaly without CHF. TECHNICAL DOCUMENTATION: JOB ID: [id number] [employer]- All Rights Reserved
[2016-12-11 17:10] VITALS: BP 134/89
--- NOTE | 2016-12-11 17:27 | ER Document Report ---
ED Cardiac - General Chief Complaint: Chest Pain Stated Complaint: CHEST PAIN WITH PACEMAKER Time Seen by Provider: 12/11/16 15:43 Mode of Arrival: Ambulatory Information source: Patient Notes: Patient is a 61-year-old male who presents to the ER today for chest pain, chest tightness that started yesterday. Patient has a history of stroke, and is in here all the time for chest pain. He also complains of a headache to the front of his head that started 1 Days ago, comes and goes. He is not taking anything for the pain. He denies taking aspirin today.he states he does have a history of headaches. TRAVEL OUTSIDE OF THE [place] IN LAST 30 DAYS: No - Related Data Allergies/Adverse Reactions: captopril [From Capoten] Allergy (Severe, Verified 11/05/16 14:16) Angioedema atorvastatin calcium [From Lipitor] Allergy (Intermediate, Verified 11/05/16 14: 16) Angioedema atorvastatin [From Lipitor] Allergy (Verified 11/05/16 14:16) clopidogrel [From Plavix] Allergy (Verified 11/05/16 14:16) rosuvastatin [From Crestor] Allergy (Verified 11/05/16 14:16) simvastatin [From Zocor] Allergy (Verified 11/05/16 14:16) Angioedema Past Medical History - General Information source: Patient - Social History Smoking Status: Unknown if Ever Smoked Chew tobacco use (# tins/day): No Frequency of alcohol use: None Drug Abuse: None Family History: CAD, DM, Hypertension, Thyroid Disfunction Patient has suicidal ideation: No Patient has homicidal ideation: No - Past Medical History Cardiac Medical History: Reports: Hx Congestive Heart Failure, Hx Coronary Artery Disease, Hx Heart Attack - 2008, Hx Hypercholesterolemia, Hx Hypertension Pulmonary Medical History: Reports: Hx Asthma, Hx Bronchitis, Hx COPD, Hx Sleep Apnea Neurological Medical History: Reports: Hx Cerebrovascular Accident - x 2. Denies: Hx Seizures Endocrine Medical History: Reports: Hx Diabetes Mellitus Type 1, Hx Diabetes Mellitus Type 2 Renal/ Medical History: Denies: Hx Peritoneal Dialysis Malignancy Medical History: GI Medical History: Reports: Hx Diverticulitis, Hx Gastroesophageal Reflux Disease Musculoskeltal Medical History: Reports Hx Arthritis, Reports Hx Musculoskeletal Deformity, Reports Hx Musculoskeletal Trauma Psychiatric Medical History: Reports: Hx Anxiety, Hx Post Traumatic Stress Disorder Denies: Hx Depression Traumatic Medical History: Denies: Hx Fractures Infectious Medical History: Past Surgical History: Reports: Hx Abdominal Surgery - for diverticulitis, Hx Bowel Surgery - Colon resection due to diverticulitis, Hx Cardiac Catheterization, Hx Cardiac Surgery - 1984, ICD placement 2015, Hx Coronary Artery Bypass Graft, Hx Coronary Stent - 1984, Hx Thyroid Surgery, Other - AICD - Immunizations Immunizations up to date: Yes Hx Diphtheria, Pertussis, Tetanus Vaccination: Yes Hx Pneumococcal Vaccination: 05/26/10 Review of Systems - Review of Systems Constitutional: No symptoms reported EENT: No symptoms reported Cardiovascular: See HPI Respiratory: No symptoms reported. denies: Short of breath Gastrointestinal: No symptoms reported Genitourinary: No symptoms reported Male Genitourinary: No symptoms reported Musculoskeletal: No symptoms reported Skin: No symptoms reported Hematologic/Lymphatic: No symptoms reported Neurological/Psychological: No symptoms reported Physical Exam - Vital signs Vitals: Temp Pulse Resp BP Pulse Ox 98.2 F 91 14 122/78 98 12/11/16 14:54 12/11/16 14:54 12/11/16 14:54 12/11/16 14:54 12/11/16 14:54 - Notes Notes: PHYSICAL EXAMINATION: GENERAL: Well-appearing, smiling, better than baseline, and in no acute distress. HEAD: Atraumatic, normocephalic. EYES: Pupils equal round and reactive to light, extraocular movements intact, sclera anicteric, conjunctiva are normal. ENT: ear canals without erythema or foreign body, TMs pearly more with good bony landmarks, nares patent, oropharynx clear without exudates. Moist mucous membranes. NECK: Normal range of motion, supple without lymphadenopathy LUNGS: CTAB and equal. No wheezes rales or rhonchi. HEART: tender to palpation over center of chest, Regular rate and rhythm without murmurs ABDOMEN: Soft, no tenderness. No guarding, no rebound BACK: no vertebral tenderness, normal ROM GI/: no CVA tenderness EXTREMITIES: Normal range of motion, no pitting edema. No cyanosis. NEUROLOGICAL: chronic left sided weakness, slurred speech which is normal for pt PSYCH: Normal mood, normal affect. SKIN: Warm, Dry, normal turgor, no rashes or lesions noted Course - Re-evaluation Re-evalutation: 12/11/16 17:42 Patient actually looks much better than normal today, smiling and very happy about his vascularization normal workup today. Chest x-ray revealed cardiomegaly without evidence of failure. Normal cardiac enzymes today. Normal EKG. - Vital Signs Vital signs: Temp Pulse Resp BP Pulse Ox 98.2 F 91 18 134/89 H 98 12/11/16 14:54 12/11/16 14:54 12/11/16 17:01 12/11/16 17:01 12/11/16 17:01 - Laboratory Result Diagrams: 12/11/16 15:50 12/11/16 15:50 Laboratory results interpreted by me: 12/11/16 12/11/16 15:50 15:50 RDW 16.4 H Glucose 113 H Discharge - Discharge Clinical Impression: Chest pain of uncertain etiology Condition: Stable Disposition: HOME, SELF-CARE Instructions: Chest Pain of Unclear Cause ([facility]) Additional Instructions: Return immediately for any new or worsening symptoms. Follow up with primary care provider, call tomorrow to make followup appointment. Referrals: BRANDAN BOCANEGRA MD [Primary Care Provider] - Follow up as needed
[2016-12-11] MEDS ORDERED: ASPIRIN 81 MG TABLET, CHEWABLE PO ONE (17:32)
[2016-12-11] MEDS ORDERED: ACETAMINOPHEN 325 MG TABLET PO ONE (17:34)
--- NOTE | 2016-12-13 05:57 | EKG REPORT ---
SEVERITY:- ABNORMAL ECG - SINUS RHYTHM NONSPECIFIC INTRAVENTRICULAR CONDUCTION DELAY : Confirmed by: Carolyn Garsia MD 13-Dec-2016 05:56:41
== END 2016-12-11 17:40 | disposition home or self-care (01) ==
LOC: ER 14:42
DX: R07.9 Chest pain, unspecified (principal); Z86.73 Personal history of transient ischemic attack (TIA), and cerebral infarction without residual deficits
CPT/HCPCS: 36415; 71020; 80053; 84484; 85025; 93005; 93010; 99285

== ENCOUNTER 2016-12-18 10:39 | Emergency (ER) | payer OTHER, MEDICARE ==
--- NOTE | 2016-12-18 11:42 | ER Document Report ---
HPI - HPI Pain Level: 4 Notes: Patient is a 61-year-old male who presents the ED complaining of right knee pain along with right leg pain that began after riding an exercise bike a few days ago. Patient states that he has been having trouble walking since then. Patient states that he has pain behind the knee as well as anteriorly. Patient states that he was seen at the [facility] this morning who sent him here for imaging. Patient has not had any medications for symptoms. He describes the pain as sharp and achy. He has not noticed any swelling, popping, clicking, or giving out of the knee. Patient has a history of heart disease, hypertension, and stroke. Denies any recent illness, travel, or sick contacts. - ROS Notes: REVIEW OF SYSTEMS: CONSTITUTIONAL : Denies fever, chills, or sweats. Denies recent illness. EENT: Denies eye, ear, throat, or mouth pain or symptoms. Denies nasal or sinus congestion or discharge. Denies throat, tongue, or mouth swelling or difficulty swallowing. CARDIOVASCULAR: Denies chest pain. Denies palpitations or racing or irregular heart beat. Denies ankle edema. RESPIRATORY: Denies cough, cold, or chest congestion. Denies shortness of breath, difficulty breathing, or wheezing. GASTROINTESTINAL: Denies abdominal pain or distention. Denies nausea, vomiting , or diarrhea. Denies blood in vomitus, stools, or per rectum. Denies black, tarry stools. Denies constipation. GENITOURINARY: Denies difficulty urinating, painful urination, burning, frequency, blood in urine, or discharge. MUSCULOSKELETAL: see hpi SKIN: Denies rash, lesions or sores. NEUROLOGICAL: Denies confusion or altered mental status. Denies passing out or loss of consciousness. Denies dizziness or lightheadedness. Denies headache. Denies weakness or paralysis or loss of use of either side. Denies problems with gait or speech. ALL OTHER SYSTEMS REVIEWED AND NEGATIVE. Dictation was performed using [employer] voice recognition software - REPRODUCTIVE Reproductive: DENIES: : - DERM Skin Color: Normal Past Medical History - Social History Smoking Status: Unknown if Ever Smoked Chew tobacco use (# tins/day): No Frequency of alcohol use: None Drug Abuse: None Family History: CAD, DM, Hypertension, Thyroid Disfunction - Past Medical History Cardiac Medical History: Reports: Hx Congestive Heart Failure, Hx Coronary Artery Disease, Hx Heart Attack - 2009, Hx Hypercholesterolemia, Hx Hypertension Pulmonary Medical History: Reports: Hx Asthma, Hx Bronchitis, Hx COPD, Hx Sleep Apnea Neurological Medical History: Reports: Hx Cerebrovascular Accident - x 2. Denies: Hx Seizures Endocrine Medical History: Reports: Hx Diabetes Mellitus Type 1, Hx Diabetes Mellitus Type 2 Renal/ Medical History: Denies: Hx Peritoneal Dialysis Malignancy Medical History: GI Medical History: Reports: Hx Diverticulitis, Hx Gastroesophageal Reflux Disease Musculoskeltal Medical History: Reports Hx Arthritis, Reports Hx Musculoskeletal Deformity, Reports Hx Musculoskeletal Trauma Psychiatric Medical History: Reports: Hx Anxiety, Hx Post Traumatic Stress Disorder Denies: Hx Depression Traumatic Medical History: Denies: Hx Fractures Infectious Medical History: Past Surgical History: Reports: Hx Abdominal Surgery - for diverticulitis, Hx Bowel Surgery - Colon resection due to diverticulitis, Hx Cardiac Catheterization, Hx Cardiac Surgery - 1984, ICD placement 2015, Hx Coronary Artery Bypass Graft, Hx Coronary Stent - 1984, Hx Thyroid Surgery, Other - AICD - Immunizations Immunizations up to date: Yes Hx Diphtheria, Pertussis, Tetanus Vaccination: Yes Hx Pneumococcal Vaccination: 05/26/10 Vertical Provider Document - CONSTITUTIONAL Agree With Documented VS: Yes Notes: PHYSICAL EXAMINATION: GENERAL: Well-appearing, well-nourished and in no acute distress. LUNGS: Breath sounds clear to auscultation bilaterally and equal. No wheezes rales or rhonchi. HEART: Regular rate and rhythm without murmurs, rubs, gallops. Musculoskeletal: Rt knee: LROM to passive/active. Strength 5+/5. ?+ elva to the right. + tenderness to anterior knee and posterior knee along with minimal tenderness to the calf. No erythema, warmth, effusion, or swelling noted. Unable to adequately assess Cesia/Ligaments due to pt resistance. Pt able to ambulate, but does limp with aide of a SPC. Extremities: No cyanosis, clubbing, or edema b/l. Peripheral pulses 2+. Capillary refill less than 3 seconds. NEUROLOGICAL: Normal sensory, motor exams PSYCH: Normal mood, normal affect. SKIN: Warm, Dry, normal turgor, no rashes or lesions noted. - INFECTION CONTROL TRAVEL OUTSIDE OF THE [place] IN LAST 30 DAYS: No - RESPIRATORY O2 Sat by Pulse Oximetry: 96 Course - Re-evaluation Re-evalutation: 12/18/16 12:50 Patient is an afebrile, well-hydrated, 61-year-old male who presents the ED with right knee/leg pain. Vitals are stable. PE otherwise unremarkable. I suspect inflammatory/arthritic based on H&P and that it started when he was using an exercise bike. Ultrasound of the lower extremity was unremarkable for any acute pathology. X-ray of the knee was unremarkable for any acute pathology. I will send him home with a prescription for Voltaren gel to use as directed. Recheck with the [facility] this week. Return to ED with any worsening/concerning symptoms otherwise as reviewed in discharge. Patient is appreciative and is in agreement. - Vital Signs Vital signs: Temp Pulse Resp BP Pulse Ox 98.0 F 94 20 128/73 H 96 12/18/16 10:45 12/18/16 10:45 12/18/16 10:45 12/18/16 10:45 12/18/16 10:45 Discharge - Discharge Clinical Impression: Knee pain, acute Qualifiers: Laterality: right Qualified Code(s): M25.561 - Pain in right knee Condition: Stable Disposition: HOME, SELF-CARE Additional Instructions: Rest, Ice, Compression, Elevation Use cane to aide ambulation Tylenol/ibuprofen as needed Light stretches daily Strength exercises as able Moist heat and massage may help F/u with your PCP ([facility]) in 2-3 days for a recheck Consider consult(s) with Orthopedics/physical therapy for ongoing/worsening symptoms Return to the ED with any worsening symptoms and/or development of fever, headache, chest pain, palpitations, syncope, shortness of breath, trouble breathing, abdominal pain, n/v/d, blood in stool/urine, loss of control of bowel /bladder, urinary retention, muscle weakness/paralysis, saddle anesthesia, numbness/tingling, or other worsening symptoms that are concerning to you. Prescriptions: Diclofenac Sodium [Voltaren] 4 gm TP QID PRN #100 gel..gm. PRN Reason: Forms: Elevated Blood Pressure Referrals: BRANDAN BOCANEGRA MD [Primary Care Provider] - Follow up as needed [facility] [Provider Group] - Follow up as needed [facility] [Provider Group] - Follow up in 1 week
--- NOTE | 2016-12-18 12:31 | RADIOLOGY REPORT (SQ) ---
EXAM DESCRIPTION: VENOUS UNILATERAL LOWER COMPLETED DATE/TIME: 12/18/2016 12:21 pm REASON FOR STUDY: posterior rt knee/leg pain COMPARISON: None. TECHNIQUE: Dynamic and static caldwell scale and color images acquired of the left leg venous system. Se lected spectral images acquired with additional compression and augmentation maneuvers. The contralat eral common femoral vein and saphenofemoral junction were also imaged. Images stored on PACS. LIMITATIONS: None. FINDINGS: COMMON FEMORAL: Normal phasicity, compression and augmentation. No visualized echogenic ma terial on caldwell scale. No defects on color images. FEMORAL: Normal compression and augmentation. No visualized echogenic material on caldwell scale. No defe cts on color images. POPLITEAL: Normal compression, augmentation. No visualized echogenic material on caldwell scale. No defec ts on color images. CALF VESSELS: Normal compression, augmentation. No visualized echogenic material on caldwell scale. No de fects on color images. GSV and SSV: Normal compression, augmentation. No visualized echogenic material on caldwell scale. No def ects on color images. ANY DEEP VENOUS INSUFFICIENCY: Not evaluated. ANY EVIDENCE OF POPLITEAL CYST: No. OTHER: No other significant finding. CONTRALATERAL COMMON FEMORAL VEIN AND SAPHENOFEMORAL JUNCTION: Normal phasicity, compression and augmentation. No visualized echogenic material on caldwell scale. No de fects on color images. IMPRESSION: NO EVIDENCE DVT OR SVT IN THE LEFT LEG. COMMENT: Preliminary report was called by the technologist to the referring clinician's office at t he time of patient visit. TECHNICAL DOCUMENTATION: JOB ID: [id number] [employer]- All Rights Reserved
--- NOTE | 2016-12-18 12:54 | RADIOLOGY REPORT (SQ) ---
EXAM DESCRIPTION: KNEE RIGHT 4 VIEWS COMPLETED DATE/TIME: 12/18/2016 12:41 pm REASON FOR STUDY: Rt knee pain and posterior leg/knee pain COMPARISON: 03/03/2015 and 04/26/2011. NUMBER OF VIEWS: Four views. TECHNIQUE: AP, lateral, and both oblique radiographic images acquired of the right knee. LIMITATIONS: None. FINDINGS: MINERALIZATION: Normal. BONES: No acute fracture or dislocation. Spurring on the inferior patella. Stable sclerotic lesion in the distal femur. No worrisome bone lesions. JOINT: No effusion. SOFT TISSUES: No soft tissue swelling. No radio-opaque foreign body. OTHER: No other significant finding. 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 CHRONIC CHANGES WITH SPURRING ON THE INFERIOR PATELLA. NO ACUTE FINDINGS. TECHNICAL DOCUMENTATION: JOB ID: [id number] [employer]- All Rights Reserved
[2016-12-18 13:05] VITALS: BP 136/98
== END 2016-12-18 13:05 | disposition home or self-care (01) ==
LOC: ER 10:39
DX: M25.561 Pain in right knee (principal); M79.604 Pain in right leg; E11.9 Type 2 diabetes mellitus without complications; I25.10 Atherosclerotic heart disease of native coronary artery without angina pectoris; I25.2 Old myocardial infarction; I10 Essential (primary) hypertension; J44.9 Chronic obstructive pulmonary disease, unspecified; Z86.73 Personal history of transient ischemic attack (TIA), and cerebral infarction without residual deficits; Z95.1 Presence of aortocoronary bypass graft; Z98.61 Coronary angioplasty status
CPT/HCPCS: 93971; 99284

== ENCOUNTER 2016-12-29 22:05 | Emergency (ER) | payer OTHER, MEDICARE ==
--- NOTE | 2016-12-29 23:42 | ER Document Report ---
ED General - General Chief Complaint: Chest Pain Stated Complaint: CHEST PAIN Time Seen by Provider: 12/29/16 23:38 Notes: Patient is a 61-year-old male who presents with complaint of chest pain. Patient has been seen here many times in the past for chest pain. He comes here frequently. Current chest pain has been ongoing since midday. He does have a history of coronary disease. He says he has had a stress test within the last year. No fevers. No vomiting. No difficulty breathing. He looks very well and comfortable on exam. He has no other complaints at this time. He says the pain is mainly substernal area and does not radiate. Nothing makes the pain better or worse. TRAVEL OUTSIDE OF THE [place] IN LAST 30 DAYS: No - Related Data Allergies/Adverse Reactions: captopril [From Capoten] Allergy (Severe, Verified 12/18/16 10:44) Angioedema atorvastatin calcium [From Lipitor] Allergy (Intermediate, Verified 12/18/16 10: 44) Angioedema atorvastatin [From Lipitor] Allergy (Verified 12/18/16 10:44) clopidogrel [From Plavix] Allergy (Verified 12/18/16 10:44) rosuvastatin [From Crestor] Allergy (Verified 12/18/16 10:44) simvastatin [From Zocor] Allergy (Verified 12/18/16 10:44) Angioedema Past Medical History - Social History Smoking Status: Current Some Day Smoker Frequency of alcohol use: None Drug Abuse: None Family History: CAD, DM, Hypertension, Thyroid Disfunction - Past Medical History Cardiac Medical History: Reports: Hx Congestive Heart Failure, Hx Coronary Artery Disease, Hx Heart Attack - 2009, Hx Hypercholesterolemia, Hx Hypertension Pulmonary Medical History: Reports: Hx Asthma, Hx Bronchitis, Hx COPD, Hx Sleep Apnea Neurological Medical History: Reports: Hx Cerebrovascular Accident - x 2. Denies: Hx Seizures Endocrine Medical History: Reports: Hx Diabetes Mellitus Type 1, Hx Diabetes Mellitus Type 2 Renal/ Medical History: Denies: Hx Peritoneal Dialysis Malignancy Medical History: GI Medical History: Reports: Hx Diverticulitis, Hx Gastroesophageal Reflux Disease Musculoskeltal Medical History: Reports Hx Arthritis, Reports Hx Musculoskeletal Deformity, Reports Hx Musculoskeletal Trauma Psychiatric Medical History: Reports: Hx Anxiety, Hx Post Traumatic Stress Disorder Denies: Hx Depression Traumatic Medical History: Denies: Hx Fractures Infectious Medical History: Past Surgical History: Reports: Hx Abdominal Surgery - for diverticulitis, Hx Bowel Surgery - Colon resection due to diverticulitis, Hx Cardiac Catheterization, Hx Cardiac Surgery - 1984, ICD placement 2015, Hx Coronary Artery Bypass Graft, Hx Coronary Stent - 1984, Hx Thyroid Surgery, Other - AICD - Immunizations Immunizations up to date: Yes Hx Diphtheria, Pertussis, Tetanus Vaccination: Yes Hx Pneumococcal Vaccination: 05/26/10 Review of Systems - Review of Systems Notes: My Normal Review Basic REVIEW OF SYSTEMS: CONSTITUTIONAL : Denies fever, chills, or sweats. Denies recent illness. EENT: Denies eye, ear, throat, or mouth pain or symptoms. Denies nasal or sinus congestion. CARDIOVASCULAR: Has chest pain RESPIRATORY: Denies cough, cold, or chest congestion. Denies shortness of breath, difficulty breathing, or wheezing. GASTROINTESTINAL: Denies abdominal pain. Denies nausea, vomiting, or diarrhea. Denies constipation. Last BM: MUSCULOSKELETAL: Denies neck or back pain or joint pain or swelling. SKIN: Denies rash or skin lesions. NEUROLOGICAL: Denies altered mental status or loss of consciousness. Denies headache. Denies weakness or paralysis or loss of use of either side. Denies problems with gait or speech. Denies sensory or motor loss. ALL OTHER SYSTEMS REVIEWED AND NEGATIVE. Physical Exam - Vital signs Vitals: Temp Pulse Resp BP Pulse Ox 98.3 F 89 22 H 110/72 95 12/29/16 22:58 12/29/16 22:58 12/29/16 22:58 12/29/16 22:58 12/29/16 22:58 - Notes Notes: General Appearance: Well nourished, alert, cooperative, no acute distress, no obvious discomfort. Well-appearing. Does not appear to be in any discomfort whatsoever. Vitals: reviewed, See vital signs table. Head: no swelling or tenderness to the head Eyes: PERRL, EOMI, Conjuctiva clear Mouth: No decreasd moisture Lungs: No wheezing, No rales, No rhonci, No accessory muscle use, good air exchange bilaterally. Heart: Normal rate, Regular rythm, No murmur, no rub Abdomen: Normal BS, soft, No rigidity, No abdominal tenderness, No guarding, no rebound, no abdominal masses, no organomegaly Extremities: strength 5/5 in all extremities, good pulses in all extremities, no swelling or tenderness in the extremities, no edema. Skin: warm, dry, appropriate color, no rash Neuro: speech clear, oriented x 3, normal affect, responds appropriately to questions. Course - Re-evaluation Re-evalutation: 12/30/16 01:41 Patient currently chest pain-free. He was sleeping when I enter the room and when I woke him and told him of the negative results is pleased and will be discharged home. Encouraged him return to ER if he has recurrent chest pain, difficulty breathing, or feels unwell. Encouraged to follow-up closely with his psychiatry teacher. Patient agrees with plan. Patient comes here frequently for the same. His troponin today is 0.064. Looking through his records his troponin usually ranges from 0.055 2.065. His chest pain has been ongoing for over 6 hours and his troponin is within his baseline range and therefore I do not feel he needs to be admitted to the hospital. He clinically looks very well and has no signs of distress and does not appear to be in any pain. Patient took aspirin at home prior to arrival and therefore was not given aspirin here. 12/30/16 01:43 Dictation of this chart was performed using voice recognition software; therefore, there may be some unintended grammatical errors. - Vital Signs Vital signs: Temp Pulse Resp BP Pulse Ox 98.3 F 89 27 H 123/81 96 12/29/16 22:58 12/29/16 22:58 12/30/16 01:01 12/30/16 01:00 12/30/16 01:01 - Laboratory Result Diagrams: 12/30/16 00:17 12/30/16 00:17 Laboratory results interpreted by me: 12/30/16 12/30/16 00:17 00:17 RDW 16.3 H Glucose 139 H - EKG Interpretation by Me Additional EKG results interpreted by me: 12/29/16 23:42 EKG is reviewed and interpreted by me. EKG shows normal sinus rhythm with a rate of [address] segment elevation or depression. No new skin changes comparison to old EKG from December 11, 2016. SC interval slightly prolonged. QRS duration is borderline. QTc interval is within normal range. Discharge - Discharge Clinical Impression: Chest pain of uncertain etiology Condition: Good Disposition: HOME, SELF-CARE Additional Instructions: CHEST PAIN OF UNCLEAR CAUSE: The exact cause of your chest pain isn't clear. Fortunately, there is no evidence of a dangerous medical condition. Further testing may be required to find the source of the pain. Most often, we find that this pain is coming from the chest wall -- the muscles or rib joints in the chest. But chest pain can come from the lung and lung lining, the esophagus, the heart valves or heart lining, and even the stomach or gallbladder. Rest. Eat lightly until the pain is gone. We may prescribe medicine for pain and inflammation. You should call the physician immediately if the pain radiates to the shoulder, jaw or arms; if you start to run a fever or develop a cough; or if you develop shortness of breath, or other new or alarming symptoms. NORMAL EXAM AND WORKUP: At this time, your examination and workup show no significant abnormality. No significant abnormal physical findings were noted. All laboratory, EKG, and imaging (x-ray) studies that were ordered show no significant abnormality. Although your examination and all studies that were ordered showed no significant abnormal finding, there are no examinations and no studies that are 100% accurate. There is always the possibility that some abnormality could exist and not be detected with physical examination or within the limits and capabilities of laboratory and other studies. You should return or follow up as you were instructed on your visit today for further evaluation if your symptoms do not resolve. ASPIRIN: Aspirin has been shown to have a beneficial effect on blood circulation by reducing the clotting effect of platelets in the blood. These beneficial effects can be achieved by taking just a single baby (81 mg) aspirin a day. It is recommended that any person over the age of forty take a single baby aspirin every day for heart and brain circulation, unless you are allergic to aspirin or have some significant bleeding disorder. It is strongly recommended that people who have proven cardiac or blood circulation disturbances should take a baby aspirin every day. FOLLOW-UP CARE: If you have been referred to a physician for follow-up care, call the physician s office for an appointment as you were instructed or within the next two days. If you experience worsening or a significant change in your symptoms, notify the physician immediately or return to the Emergency Department at any time for re-evaluation. Please return to [facility] ER if you have recurrent worsening chest pain, fevers, difficulty breathing, or feel unwell.
[2016-12-30 00:24] LABS: ABSOLUTE EOSINOPHILS # (AUTO) 0.3 10^3/uL (0.0-0.6); ABSOLUTE LYMPHOCYTES (AUTO) 1.9 10^3/uL (0.5-4.7); ABSOLUTE MONOCYTES (AUTO) 0.9 10^3/uL (0.1-1.4); ABSOLUTE NEUT (AUTO) 3.6 10^3/uL (1.7-8.2); BASOPHILS % (AUTO) 0.6 % (0-2); EOSINOPHILS % (AUTO) 4.4 % (0-6); HEMATOCRIT 42.1 % (37.9-51.0); HEMOGLOBIN 14.1 g/dL (13.5-17.0); HGB HCT DIFFERENCE 0.2; LYMPHOCYTES % (AUTO) 28.1 % (13-45); MEAN CORPUSCULAR HEMOGLOBIN 28.3 pg (27.0-33.4); MEAN CORPUSCULAR HGB CONC 33.6 g/dL (32.0-36.0); MEAN CORPUSCULAR VOLUME 84 fl (80-97); RED BLOOD COUNT 4.99 10^6/uL (4.35-5.55); RED CELL DISTRIBUTION WIDTH 16.3 % (11.5-14.0); SEGMENTED NEUTROPHILS % (AUTO) 53.9 % (42-78); WHITE BLOOD COUNT 6.7 10^3/uL (4.0-10.5)
[2016-12-30 00:47] LABS: ALANINE AMINOTRANSFERASE 28 U/L (21-72); ALBUMIN 4.1 g/dL (3.5-5.0); ALKALINE PHOSPHATASE 67 U/L (38-126); ANION GAP 11 (5-19); ASPARTATE AMINO TRANSFERASE 25 U/L (17-59); BILIRUBIN,DIRECT 0.3 mg/dL (0.0-0.4); BILIRUBIN,TOTAL 0.6 mg/dL (0.2-1.3); BLOOD UREA NITROGEN 15 mg/dL (7-20); CALCIUM 9.1 mg/dL (8.4-10.2); CARBON DIOXIDE 30 mmol/L (22-30); CHLORIDE 101 mmol/L (98-107); CREATINE KINASE 80 U/L (55-170); CREATININE RESULT 0.97 mg/dL (0.52-1.25); GLUCOSE 139 mg/dL (75-110); POTASSIUM 3.8 mmol/L (3.6-5.0); SODIUM 142.3 mmol/L (137-145); TOTAL PROTEIN 7.1 g/dL (6.3-8.2)
[2016-12-30 00:59] LABS: CREATINE KINASE MB 1.84 ng/mL (<4.55)
[2016-12-30 01:03] LABS: TROPONIN I 0.064 ng/mL
--- NOTE | 2016-12-30 01:34 | RADIOLOGY REPORT (SQ) ---
EXAM DESCRIPTION: CHEST SINGLE VIEW COMPLETED DATE/TIME: 12/30/2016 1:16 am REASON FOR STUDY: chest pain COMPARISON: 12/11/2016. EXAM PARAMETERS: NUMBER OF VIEWS: One view. TECHNIQUE: Single frontal radiographic view of the chest acquired. RADIATION DOSE: NA LIMITATIONS: None. FINDINGS: LUNGS AND PLEURA: No opacities, masses or pneumothorax. No pleural effusion. MEDIASTINUM AND HILAR STRUCTURES: No masses. Contour normal. HEART AND VASCULAR STRUCTURES: Moderate chronic enlargement of the cardiac silhouette. BONES: No acute findings. HARDWARE: Left cardiac stimulation device and leads. OTHER: No other significant finding. IMPRESSION: No acute cardiopulmonary findings. Chronic, moderate cardiac enlargement. TECHNICAL DOCUMENTATION: JOB ID: [id number]
[2016-12-30 02:14] VITALS: BP 114/86
--- NOTE | 2016-12-30 04:45 | EKG REPORT ---
SEVERITY:- ABNORMAL ECG - SINUS RHYTHM NONSPECIFIC T ABNORMALITIES, DIFFUSE LEADS LPFB : Confirmed by: Zac Brandon MD 30-Dec-2016 04:21:25
== END 2016-12-30 02:00 | disposition home or self-care (01) ==
LOC: ER 22:05
DX: R07.89 Other chest pain (principal); I25.10 Atherosclerotic heart disease of native coronary artery without angina pectoris; I10 Essential (primary) hypertension; J44.9 Chronic obstructive pulmonary disease, unspecified; E11.9 Type 2 diabetes mellitus without complications; F17.200 Nicotine dependence, unspecified, uncomplicated; Z88.8 Allergy status to other drugs, medicaments and biological substances; Z82.49 Family history of ischemic heart disease and other diseases of the circulatory system; Z95.1 Presence of aortocoronary bypass graft; Z98.61 Coronary angioplasty status
CPT/HCPCS: 36415; 71010; 80053; 82550; 82553; 84484; 85025; 93005; 93010; 99285

== ENCOUNTER 2017-01-09 22:52 | Emergency (ER) | payer OTHER, MEDICARE ==
[2017-01-09 23:09] VITALS: BP 138/117
[2017-01-10] MEDS ORDERED: ACETAMINOPHEN 325 MG TABLET PO ONE (00:40)
== END 2017-01-10 02:10 | disposition left against medical advice (07) ==
LOC: ER 22:52
DX: Z53.21 Procedure and treatment not carried out due to patient leaving prior to being seen by health care provider (principal)

== ENCOUNTER 2017-01-10 05:42 | Emergency (ER) | payer OTHER, MEDICARE ==
--- NOTE | 2017-01-10 07:25 | ER Document Report ---
ED General - General Chief Complaint: Leg Pain Stated Complaint: LEG PAIN Time Seen by Provider: 01/10/17 07:21 Mode of Arrival: Ambulatory Information source: Patient Notes: 61-year-old male presents with complaints of knee pain. Patient notes he fell on his left knee and has now had pain with ambulation since. Patient denies any other injuries notes that it is numb at his knee itself. Patient denies any weakness has been able to stand and walked in Patient has been seen here multiple times for chest pain denies any pain at this time TRAVEL OUTSIDE OF THE [place] IN LAST 30 DAYS: No - HPI Onset: Just prior to arrival Onset/Duration: Sudden Quality of pain: Achy Severity: Mild Pain Level: 1 Associated symptoms: Body/muscle aches Exacerbated by: Movement Relieved by: Denies Similar symptoms previously: No Recently seen / treated by doctor: Yes - Related Data Allergies/Adverse Reactions: captopril [From Capoten] Allergy (Severe, Verified 12/18/16 10:44) Angioedema atorvastatin calcium [From Lipitor] Allergy (Intermediate, Verified 12/18/16 10: 44) Angioedema atorvastatin [From Lipitor] Allergy (Verified 12/18/16 10:44) clopidogrel [From Plavix] Allergy (Verified 12/18/16 10:44) rosuvastatin [From Crestor] Allergy (Verified 12/18/16 10:44) simvastatin [From Zocor] Allergy (Verified 12/18/16 10:44) Angioedema Past Medical History - Social History Smoking Status: Never Smoker Cigarette use (# per day): No Chew tobacco use (# tins/day): No Smoking Education Provided: No Family History: CAD, DM, Hypertension, Thyroid Disfunction Patient has suicidal ideation: No Patient has homicidal ideation: No - Past Medical History Cardiac Medical History: Reports: Hx Congestive Heart Failure, Hx Coronary Artery Disease, Hx Heart Attack - 2009, Hx Hypercholesterolemia, Hx Hypertension Pulmonary Medical History: Reports: Hx Asthma, Hx Bronchitis, Hx COPD, Hx Sleep Apnea Neurological Medical History: Reports: Hx Cerebrovascular Accident - x 2. Denies: Hx Seizures Endocrine Medical History: Reports: Hx Diabetes Mellitus Type 1, Hx Diabetes Mellitus Type 2 Renal/ Medical History: Denies: Hx Peritoneal Dialysis Malignancy Medical History: GI Medical History: Reports: Hx Diverticulitis, Hx Gastroesophageal Reflux Disease Musculoskeltal Medical History: Reports Hx Arthritis, Reports Hx Musculoskeletal Deformity, Reports Hx Musculoskeletal Trauma Psychiatric Medical History: Reports: Hx Anxiety, Hx Post Traumatic Stress Disorder Denies: Hx Depression Traumatic Medical History: Denies: Hx Fractures Infectious Medical History: Past Surgical History: Reports: Hx Abdominal Surgery - for diverticulitis, Hx Bowel Surgery - Colon resection due to diverticulitis, Hx Cardiac Catheterization, Hx Cardiac Surgery - 1984, ICD placement 2015, Hx Coronary Artery Bypass Graft, Hx Coronary Stent - 1984, Hx Thyroid Surgery, Other - AICD - Immunizations Immunizations up to date: Yes Hx Diphtheria, Pertussis, Tetanus Vaccination: Yes Hx Pneumococcal Vaccination: 05/26/10 Review of Systems - Review of Systems Notes: REVIEW OF SYSTEMS: CONSTITUTIONAL : Denies fever, chills, or sweats. Denies recent illness. EENT: Denies eye, ear, throat, or mouth pain or symptoms. Denies nasal or sinus congestion or discharge. Denies throat, tongue, or mouth swelling or difficulty swallowing. CARDIOVASCULAR: Denies chest pain. Denies palpitations or racing or irregular heart beat. Denies ankle edema. RESPIRATORY: Denies cough, cold, or chest congestion. Denies shortness of breath, difficulty breathing, or wheezing. GASTROINTESTINAL: Denies abdominal pain or distention. Denies nausea, vomiting , or diarrhea. Denies blood in vomitus, stools, or per rectum. Denies black, tarry stools. Denies constipation. GENITOURINARY: Denies difficulty urinating, painful urination, burning, frequency, blood in urine, or discharge. MUSCULOSKELETAL: Admits left knee pain SKIN: Denies rash, lesions or sores. HEMATOLOGIC : Denies easy bruising or bleeding. LYMPHATIC: Denies swollen, enlarged glands. NEUROLOGICAL: Denies confusion or altered mental status. Denies passing out or loss of consciousness. Denies dizziness or lightheadedness. Denies headache. Denies weakness or paralysis or loss of use of either side. Denies problems with gait or speech. Denies sensory loss, numbness, or tingling. Denies seizures. PSYCHIATRIC: Denies anxiety or stress. Denies depression, suicidal ideation, or homicidal ideation. ALL OTHER SYSTEMS REVIEWED AND NEGATIVE. Dictation was performed using [employer] voice recognition software PHYSICAL EXAMINATION: GENERAL: Well-appearing, well-nourished and in no acute distress. HEAD: Atraumatic, normocephalic. EYES: Pupils equal round and reactive to light, extraocular movements intact, sclera anicteric, conjunctiva are normal. ENT: Nares patent, oropharynx clear without exudates. Moist mucous membranes. NECK: Normal range of motion, supple without lymphadenopathy LUNGS: Breath sounds clear to auscultation bilaterally and equal. No wheezes rales or rhonchi. HEART: Regular rate and rhythm without murmurs ABDOMEN: Soft, nontender, nondistended abdomen. No guarding, no rebound. No masses appreciated. Musculoskeletal: Normal range of motion, no pitting or edema. No cyanosis. Patient is able to ambulate NEUROLOGICAL: Cranial nerves grossly intact. Normal speech, normal gait. Normal sensory, motor exams PSYCH: Normal mood, normal affect. SKIN: Warm, Dry, normal turgor, no rashes or lesions noted. Physical Exam - Vital signs Vitals: Temp Pulse Resp BP Pulse Ox 98.7 F 82 18 113/68 97 01/10/17 05:58 01/10/17 05:58 01/10/17 05:58 01/10/17 05:58 01/10/17 05:58 Course - Re-evaluation Re-evalutation: 01/10/17 07:51 Physical examination notes no significant abnormality, patient is at his baseline mentation. X-ray of his knee is pending at this time 01/10/17 08:54 X-ray notes no acute abnormality patient will be discharged home After performing a Medical Screening Examination, I estimate there is LOW risk for INTRACRANIAL HEMORRHAGE, UNSTABLE SPINE FRACTURE, CENTRAL CORD SYNDROME, CAUDA EQUINA, THORACIC AORTIC DISSECTION, PNEUMOTHORAX, PERFORATED BOWEL, RUPTURED ABDOMINAL AORTIC ANEURYSM, ACUTE TENDON RUPTURE, COMPARTMENT SYNDROME, or OPEN FRACTURE, thus I consider the discharge disposition reasonable. Also, there is no evidence or peritonitis, sepsis, or toxicity. I have reevaluated this patient multiple times and no significant life threatening changes are noted. The patient and I have discussed the diagnosis and risks, and we agree with discharging home to follow-up with their primary doctor with the understanding that symptoms and presentations can change. We also discussed returning to the Emergency Department immediately if new or worsening symptoms occur. We have discussed the symptoms which are most concerning (e.g., bloody stool, fever, changing or worsening pain, vomiting) that necessitate immediate return. - Vital Signs Vital signs: Temp Pulse Resp BP Pulse Ox 98.7 F 82 18 113/68 97 01/10/17 05:58 01/10/17 05:58 01/10/17 05:58 01/10/17 05:58 01/10/17 05:58 - Diagnostic Test Radiology reviewed: Image reviewed, Reports reviewed - no acute abnormality Discharge - Discharge Clinical Impression: Knee pain, acute Qualifiers: Laterality: right Qualified Code(s): M25.561 - Pain in right knee Fall Qualifiers: Encounter type: initial encounter Qualified Code(s): W19.XXXA - Unspecified fall, initial encounter Condition: Stable Instructions: Sprained Knee ([facility]) Additional Instructions: Follow up with your physician tomorrow for further care or return to the ED IMMEDIATELY if symptoms worsen or new concerns occur. If you cannot afford to follow up with your primary care physician a list of low cost clinics have been provided at the end of your discharge papers as well. Prescriptions: Hydrocodone/Acetaminophen [[place] 5-325 mg Tablet] 1 tab PO Q6 #10 tablet
[2017-01-10] MEDS ORDERED: KETOROLAC TROMETHAMINE 10 MG TABLET PO ONE (07:34)
--- NOTE | 2017-01-10 08:01 | EKG REPORT ---
SEVERITY:- ABNORMAL ECG - SINUS RHYTHM NONSPECIFIC T ABNORMALITIES, DIFFUSE LEADS : Confirmed by: Zac Brandon MD 10-Jan-2017 08:00:37
--- NOTE | 2017-01-10 08:50 | RADIOLOGY REPORT (SQ) ---
EXAM DESCRIPTION: KNEE LEFT 4 VIEW COMPLETED DATE/TIME: 01/10/2017 8:37 am REASON FOR STUDY: knee pain fall COMPARISON: None. NUMBER OF VIEWS: Four views. TECHNIQUE: AP, lateral, and both oblique radiographic images acquired of the left knee. LIMITATIONS: None. FINDINGS: MINERALIZATION: Normal. BONES: No acute fracture or dislocation. No worrisome bone lesions. JOINT: No effusion. Mild medial compartment joint space narrowing SOFT TISSUES: There is calcification/ossification of the patellar tendon at its patellar attachment, best shown on lateral view. OTHER: No other significant finding. IMPRESSION: No acute findings TECHNICAL DOCUMENTATION: JOB ID: [id number] [employer]- All Rights Reserved
[2017-01-10 09:33] VITALS: BP 118/66
== END 2017-01-10 09:35 | disposition home or self-care (01) ==
LOC: ER 05:42
DX: M25.562 Pain in left knee (principal); W19.XXXA Unspecified fall, initial encounter
CPT/HCPCS: 93005; 99284; 73562; 93010; J3490

== ENCOUNTER 2017-01-17 08:51 | Emergency (ER) | payer OTHER, MEDICARE ==
--- NOTE | 2017-01-17 10:08 | RADIOLOGY REPORT (SQ) ---
EXAM DESCRIPTION: CT HEAD WITHOUT COMPLETED DATE/TIME: 01/17/2017 9:56 am REASON FOR STUDY: weakness 2 days COMPARISON: 11/05/2016. TECHNIQUE: Axial images acquired through the brain without intravenous contrast. Images reviewed wi th bone, brain and subdural windows. Images stored on PACS. All CT scanners at this facility use dose modulation, iterative reconstruction, and/or weight based d osing when appropriate to reduce radiation dose to as low as reasonably achievable (ALARA). [facility]: Dose Right [facility]: CareDose [facility]: Dose Right [facility]: Teradose 4D [facility]: wripl RADIATION DOSE: mGy. LIMITATIONS: None. FINDINGS: VENTRICLES: Prominent. CEREBRUM: No masses. No hemorrhage. No midline shift. Several old infarcts. Areas of low density in the white matter most likely due to chronic micro-vascular ischemic change. No evidence for acute infarction. CEREBELLUM: No masses. No hemorrhage. No alteration of density. No evidence for acute infarction. EXTRAAXIAL SPACES: Age-related involutional change. No fluid collections. No masses. ORBITS AND GLOBE: No intra- or extraconal masses. Normal contour of globe without masses. CALVARIUM: No fracture. PARANASAL SINUSES: No fluid or mucosal thickening. SOFT TISSUES: No mass or hematoma. OTHER: No other significant finding. IMPRESSION: CHRONIC CHANGES OF ATROPHY AND MICROVASCULAR ISCHEMIA. NO ACUTE PROCESS. TECHNICAL DOCUMENTATION: JOB ID: [id number] Quality ID # [id number]: Final reports with documentation of one or more dose reduction techniques (e.g., Au tomated exposure control, adjustment of the mA and/or kV according to patient size, use of iterative reconstruction technique) 2010 [employer]- All Rights Reserved
--- NOTE | 2017-01-17 11:05 | ER Document Report ---
ED General - General Chief Complaint: Fall Stated Complaint: FALL;HEAD INJURY Time Seen by Provider: 01/17/17 09:26 TRAVEL OUTSIDE OF THE [place] IN LAST 30 DAYS: No - HPI Patient complains to provider of: Left-sided weakness Notes: Patient coming in for evaluation of left-sided weakness. Patient has a history of left-sided weakness in the past from these strokes patient is concerned his weakness is getting worse and that he had a stroke 2 days ago and is requesting a CT scan. Patient otherwise is refusing any blood work patient denies any fevers chills nausea vomiting abdominal pain. Patient does state that he is diabetic and has not eaten anything in the last 24 hours. Patient states he just has not been hungry patient did not check his sugar for the last 48 hours. Otherwise patient is very well-known to this provider patient has expressive aphasia therefore history taking is made somewhat little bit difficult - Related Data Allergies/Adverse Reactions: captopril [From Capoten] Allergy (Severe, Verified 12/18/16 10:44) Angioedema atorvastatin calcium [From Lipitor] Allergy (Intermediate, Verified 12/18/16 10: 44) Angioedema atorvastatin [From Lipitor] Allergy (Verified 12/18/16 10:44) clopidogrel [From Plavix] Allergy (Verified 12/18/16 10:44) rosuvastatin [From Crestor] Allergy (Verified 12/18/16 10:44) simvastatin [From Zocor] Allergy (Verified 12/18/16 10:44) Angioedema Past Medical History - Social History Smoking Status: Never Smoker Chew tobacco use (# tins/day): No Frequency of alcohol use: None Drug Abuse: None Family History: CAD, DM, Hypertension, Thyroid Disfunction Patient has suicidal ideation: No Patient has homicidal ideation: No - Past Medical History Cardiac Medical History: Reports: Hx Congestive Heart Failure, Hx Coronary Artery Disease, Hx Heart Attack - 2009, Hx Hypercholesterolemia, Hx Hypertension Pulmonary Medical History: Reports: Hx Asthma, Hx Bronchitis, Hx COPD, Hx Sleep Apnea Neurological Medical History: Reports: Hx Cerebrovascular Accident - x 2. Denies: Hx Seizures Endocrine Medical History: Reports: Hx Diabetes Mellitus Type 1, Hx Diabetes Mellitus Type 2 Renal/ Medical History: Denies: Hx Peritoneal Dialysis Malignancy Medical History: GI Medical History: Reports: Hx Diverticulitis, Hx Gastroesophageal Reflux Disease Musculoskeltal Medical History: Reports Hx Arthritis, Reports Hx Musculoskeletal Deformity, Reports Hx Musculoskeletal Trauma Psychiatric Medical History: Reports: Hx Anxiety, Hx Post Traumatic Stress Disorder Denies: Hx Depression Traumatic Medical History: Denies: Hx Fractures Infectious Medical History: Past Surgical History: Reports: Hx Abdominal Surgery - for diverticulitis, Hx Bowel Surgery - Colon resection due to diverticulitis, Hx Cardiac Catheterization, Hx Cardiac Surgery - 1984, ICD placement 2015, Hx Coronary Artery Bypass Graft, Hx Coronary Stent - 1984, Hx Thyroid Surgery, Other - AICD - Immunizations Immunizations up to date: Yes Hx Diphtheria, Pertussis, Tetanus Vaccination: Yes Hx Pneumococcal Vaccination: 05/26/10 Review of Systems - Review of Systems Constitutional: No symptoms reported EENT: No symptoms reported Cardiovascular: No symptoms reported Respiratory: No symptoms reported Gastrointestinal: No symptoms reported Genitourinary: No symptoms reported Male Genitourinary: No symptoms reported Musculoskeletal: No symptoms reported Skin: No symptoms reported Hematologic/Lymphatic: No symptoms reported Neurological/Psychological: Weakness -: Yes All other systems reviewed and negative Physical Exam - Vital signs Vitals: Temp Pulse Resp BP Pulse Ox 97.9 F 82 18 125/93 H 97 01/17/17 09:06 01/17/17 09:06 01/17/17 09:06 01/17/17 09:06 01/17/17 09:06 Interpretation: Normal - General General appearance: Appears well, Alert - HEENT Head: Normocephalic, Atraumatic Eyes: Normal Pupils: PERRL - Respiratory Respiratory status: No respiratory distress Chest status: Nontender Breath sounds: Normal Chest palpation: Normal - Cardiovascular Rhythm: Regular Heart sounds: Normal auscultation Murmur: No - Abdominal Inspection: Normal Distension: No distension Bowel sounds: Normal Tenderness: Nontender Organomegaly: No organomegaly - Back Back: Normal, Nontender - Extremities General upper extremity: Normal inspection, Nontender, Normal color, Normal ROM , Normal temperature General lower extremity: Normal inspection, Nontender, Normal color, Normal ROM , Normal temperature, Normal weight bearing. No: Kadi's sign - Neurological Neuro grossly intact: Yes Cognition: Normal Orientation: AAOx4 [place] Coma Scale Eye Opening: Spontaneous [place] Coma Scale Verbal: Oriented [place] Coma Scale Motor: Obeys Commands [place] Coma Scale Total: 15 Speech: Normal Motor strength normal: LUE, RUE, LLE, RLE Additional motor exam normals: Other - [place] strength of the left is weaker than the right however patient has a history of this Sensory: Normal - Psychological Associated symptoms: Normal affect, Normal mood - Skin Skin Temperature: Warm Skin Moisture: Dry Skin Color: Normal Course - Re-evaluation Re-evalutation: 01/17/17 13:57 I explained to the patient that examination although having left-sided weakness of his upper extremity seems to be normal from what I recall from seeing the patient in the past. Patient still very insistent he received CT scan of his head. This was performed showing no acute pathology patient states symptoms ongoing for 2 days upon finding of the CT scan was negative for acute stroke patient was relieved and requesting something to eat. Patient still declines any other blood work or any other medical measures patient does repeat that he lives alone is not having by to check up on him. I did have a social work associate involved case we will have our community paramedics got to the patient's house and evaluate the patient to assess him for his needs. - Vital Signs Vital signs: Temp Pulse Resp BP Pulse Ox 97.8 F 92 20 140/78 H 99 01/17/17 11:18 01/17/17 11:18 01/17/17 11:18 01/17/17 11:18 01/17/17 11:18 - Laboratory Laboratory results interpreted by me: 01/17/17 09:52 POC Glucose 126 H Discharge - Discharge Clinical Impression: Weakness Condition: Good Disposition: HOME, SELF-CARE Instructions: Weakness ([facility]) Additional Instructions: Your CAT scan today does not show any new signs of stroke. Please follow[facility] with [facility].
[2017-01-17 11:20] VITALS: BP 140/78
== END 2017-01-17 11:21 | disposition home or self-care (01) ==
LOC: ER 08:51
DX: I69.354 Hemiplegia and hemiparesis following cerebral infarction affecting left non-dominant side (principal); R47.01 Aphasia; I25.10 Atherosclerotic heart disease of native coronary artery without angina pectoris; I25.2 Old myocardial infarction; I10 Essential (primary) hypertension; J44.9 Chronic obstructive pulmonary disease, unspecified; E11.9 Type 2 diabetes mellitus without complications; Z88.8 Allergy status to other drugs, medicaments and biological substances; Z95.810 Presence of automatic (implantable) cardiac defibrillator; Z95.1 Presence of aortocoronary bypass graft; Z98.61 Coronary angioplasty status
CPT/HCPCS: 70450; 82962; 99285

== ENCOUNTER 2017-02-12 07:20 | Emergency (ER) | payer OTHER, MEDICARE ==
--- NOTE | 2017-02-12 08:21 | EKG REPORT ---
SEVERITY:- ABNORMAL ECG - SINUS RHYTHM BORDERLINE T ABNORMALITIES, DIFFUSE LEADS BORDERLINE PROLONGED QT INTERVAL CONSIDER OLD INFERIOR ID : Confirmed by: Zac Brandon MD 12-Feb-2017 08:20:45
--- NOTE | 2017-02-12 08:49 | ER Document Report ---
ED Cardiac - General Chief Complaint: Chest Pain Stated Complaint: CHEST PAIN Time Seen by Provider: 02/12/17 08:49 Mode of Arrival: Ambulatory Information source: Patient Notes: Patient is a 61-year-old male who is very well-known to this emergency department who comes in for chest pain That started last night . He states it's been off and on and he took some gas x. Patient has a pacemaker. He denies any shortness of breath, nausea, vomiting. He states that the chest pain " feels like gas." He does have a history of a stroke and CHF. He denies radiation of pain anywhere else. TRAVEL OUTSIDE OF THE [place] IN LAST 30 DAYS: No - Related Data Allergies/Adverse Reactions: captopril [From Capoten] Allergy (Severe, Verified 12/18/16 10:44) Angioedema atorvastatin calcium [From Lipitor] Allergy (Intermediate, Verified 12/18/16 10: 44) Angioedema atorvastatin [From Lipitor] Allergy (Verified 12/18/16 10:44) clopidogrel [From Plavix] Allergy (Verified 12/18/16 10:44) rosuvastatin [From Crestor] Allergy (Verified 12/18/16 10:44) simvastatin [From Zocor] Allergy (Verified 12/18/16 10:44) Angioedema Past Medical History - General Information source: Patient - Social History Smoking Status: Never Smoker Chew tobacco use (# tins/day): No Frequency of alcohol use: None Drug Abuse: None Family History: CAD, DM, Hypertension, Thyroid Disfunction - Past Medical History Cardiac Medical History: Reports: Hx Congestive Heart Failure, Hx Coronary Artery Disease, Hx Heart Attack - 2009, Hx Hypercholesterolemia, Hx Hypertension Pulmonary Medical History: Reports: Hx Asthma, Hx Bronchitis, Hx COPD, Hx Sleep Apnea Neurological Medical History: Reports: Hx Cerebrovascular Accident - x 2. Denies: Hx Seizures Endocrine Medical History: Reports: Hx Diabetes Mellitus Type 1, Hx Diabetes Mellitus Type 2 Renal/ Medical History: Denies: Hx Peritoneal Dialysis Malignancy Medical History: GI Medical History: Reports: Hx Diverticulitis, Hx Gastroesophageal Reflux Disease Musculoskeltal Medical History: Reports Hx Arthritis, Reports Hx Musculoskeletal Deformity, Reports Hx Musculoskeletal Trauma Psychiatric Medical History: Reports: Hx Anxiety, Hx Post Traumatic Stress Disorder Denies: Hx Depression Traumatic Medical History: Denies: Hx Fractures Infectious Medical History: Past Surgical History: Reports: Hx Abdominal Surgery - for diverticulitis, Hx Bowel Surgery - Colon resection due to diverticulitis, Hx Cardiac Catheterization, Hx Cardiac Surgery - 1984, ICD placement 2015, Hx Coronary Artery Bypass Graft, Hx Coronary Stent - 1984, Hx Thyroid Surgery, Other - AICD - Immunizations Immunizations up to date: Yes Hx Diphtheria, Pertussis, Tetanus Vaccination: Yes Hx Pneumococcal Vaccination: 05/26/10 Review of Systems - Review of Systems Constitutional: No symptoms reported EENT: No symptoms reported Cardiovascular: See HPI Respiratory: No symptoms reported Gastrointestinal: See HPI Genitourinary: No symptoms reported Male Genitourinary: No symptoms reported Musculoskeletal: No symptoms reported Skin: No symptoms reported Hematologic/Lymphatic: No symptoms reported Neurological/Psychological: No symptoms reported Physical Exam - Vital signs Vitals: Temp Pulse Resp BP Pulse Ox 98.3 F 84 18 116/72 94 02/12/17 07:26 02/12/17 07:26 02/12/17 07:26 02/12/17 07:02/12/17 07:26 - Notes Notes: PHYSICAL EXAMINATION: GENERAL: Well-appearing and in no acute distress. HEAD: Atraumatic, normocephalic. EYES: Pupils equal round and reactive to light, extraocular movements intact, sclera anicteric, conjunctiva are normal. NECK: Normal range of motion, supple without lymphadenopathy LUNGS: CTAB and equal. No wheezes rales or rhonchi. HEART: chest nontender to palpation, Regular rate and rhythm without murmurs ABDOMEN: Soft, no tenderness. No guarding, no rebound BACK: no vertebral tenderness, normal ROM GI/: no CVA tenderness EXTREMITIES: Normal range of motion, no pitting edema. No cyanosis. NEUROLOGICAL: usual is really now cranial nerves grossly intact. Normal sensory/ motor exams. PSYCH: Normal mood, normal affect. SKIN: Warm, Dry, normal turgor, no rashes or lesions noted Course - Re-evaluation Re-evalutation: 02/13/17 09:41 Patient's troponin is 0.04, better than his usual troponin. Patient is in no distress, happy, smiling, wanting to eat. Patient stable for discharge. - Vital Signs Vital signs: Temp Pulse Resp BP Pulse Ox 98.3 F 84 25 H 130/85 H 99 02/12/17 07:26 02/12/17 07:26 02/12/17 11:01 02/12/17 11:01 02/12/17 11:01 - Laboratory Result Diagrams: 02/12/17 09:50 02/12/17 09:50 Laboratory results interpreted by me: 02/12/17 02/12/17 02/12/17 09:05 09:50 09:50 RDW 14.9 H Sodium 145.5 H Carbon Dioxide 32 H Glucose 121 H Urine Protein 100 H Urine Ascorbic Acid 40 H Discharge - Discharge Clinical Impression: Chest pain Qualifiers: Chest pain type: unspecified Qualified Code(s): R07.9 - Chest pain, unspecified Condition: Stable Disposition: HOME, SELF-CARE Additional Instructions: Return immediately for any new or worsening symptoms. Follow up with primary care provider, call tomorrow to make followup appointment.
[2017-02-12] MEDS ORDERED: ASPIRIN 81 MG TABLET, CHEWABLE PO ONE (08:50)
--- NOTE | 2017-02-12 09:28 | RADIOLOGY REPORT (SQ) ---
EXAM DESCRIPTION: CHEST SINGLE VIEW COMPLETED DATE/TIME: 02/12/2017 9:00 am REASON FOR STUDY: chest pain, cough COMPARISON: 12/30/2016 EXAM PARAMETERS: NUMBER OF VIEWS: One view. TECHNIQUE: Single frontal radiographic view of the chest acquired. RADIATION DOSE: NA LIMITATIONS: None. FINDINGS: LUNGS AND PLEURA: No opacities, masses or pneumothorax. No pleural effusion. MEDIASTINUM AND HILAR STRUCTURES: No masses. Contour normal. HEART AND VASCULAR STRUCTURES: Cardiac silhouette remains enlarged and is unchanged in configuration. BONES: No acute findings. Degenerative changes are again identified in the thoracic spine HARDWARE: AICD device is unchanged in position. OTHER: No other significant finding. IMPRESSION: No significant interval change. Cardiomegaly. No acute infiltrates are identified. Ot her findings as noted above TECHNICAL DOCUMENTATION: JOB ID: [id number]
[2017-02-12 09:35] LABS: APPEARANCE,URINE CLEAR; BILIRUBIN,URINE NEGATIVE (NEGATIVE); GLUCOSE, URINE NEGATIVE (NEGATIVE); KETONES,URINE NEGATIVE (NEGATIVE); LEUKOCYTE ESTERASE,URINE NEGATIVE (NEGATIVE); NITRITE,URINE NEGATIVE (NEGATIVE); PROTEIN,URINE 100 mg/dL (NEGATIVE); URINE SPECIFIC GRAVITY 1.019; UROBILINOGEN,URINE NEGATIVE mg/dL (<2.0)
[2017-02-12 10:03] LABS: ABSOLUTE BASOPHILS # (AUTO) 0.1 10^3/uL (0.0-0.2); ABSOLUTE EOSINOPHILS # (AUTO) 0.2 10^3/uL (0.0-0.6); ABSOLUTE LYMPHOCYTES (AUTO) 1.3 10^3/uL (0.5-4.7); ABSOLUTE MONOCYTES (AUTO) 0.8 10^3/uL (0.1-1.4); ABSOLUTE NEUT (AUTO) 3.6 10^3/uL (1.7-8.2); BASOPHILS % (AUTO) 0.9 % (0-2); EOSINOPHILS % (AUTO) 3.4 % (0-6); HEMATOCRIT 41.9 % (37.9-51.0); HEMOGLOBIN 14.4 g/dL (13.5-17.0); HGB HCT DIFFERENCE 1.3; LYMPHOCYTES % (AUTO) 22.1 % (13-45); MEAN CORPUSCULAR HEMOGLOBIN 29.4 pg (27.0-33.4); MEAN CORPUSCULAR HGB CONC 34.5 g/dL (32.0-36.0); MEAN CORPUSCULAR VOLUME 85 fl (80-97); MONOCYTES % (AUTO) 12.9 % (3-13); RED BLOOD COUNT 4.91 10^6/uL (4.35-5.55); RED CELL DISTRIBUTION WIDTH 14.9 % (11.5-14.0); SEGMENTED NEUTROPHILS % (AUTO) 60.7 % (42-78); WHITE BLOOD COUNT 5.9 10^3/uL (4.0-10.5)
[2017-02-12 10:19] LABS: ALANINE AMINOTRANSFERASE 27 U/L (21-72); ALBUMIN 4.3 g/dL (3.5-5.0); ALKALINE PHOSPHATASE 58 U/L (38-126); ANION GAP 13 (5-19); ASPARTATE AMINO TRANSFERASE 21 U/L (17-59); BILIRUBIN,DIRECT 0.4 mg/dL (0.0-0.4); BILIRUBIN,TOTAL 0.7 mg/dL (0.2-1.3); BLOOD UREA NITROGEN 16 mg/dL (7-20); CALCIUM 9.1 mg/dL (8.4-10.2); CARBON DIOXIDE 32 mmol/L (22-30); CHLORIDE 101 mmol/L (98-107); CREATINE KINASE 69 U/L (55-170); GLUCOSE 121 mg/dL (75-110); LIPASE 68.2 U/L (23-300); POTASSIUM 3.8 mmol/L (3.6-5.0); SODIUM 145.5 mmol/L (137-145)
[2017-02-12 10:31] LABS: CREATINE KINASE MB 1.46 ng/mL (<4.55)
[2017-02-12 10:33] LABS: TROPONIN I 0.043 ng/mL
[2017-02-12 11:24] VITALS: BP 130/85
[2017-02-12] MEDS ORDERED: FAMOTIDINE 20 MG TABLET PO ONE (11:36)
== END 2017-02-12 11:42 | disposition home or self-care (01) ==
LOC: ER 07:20
DX: R07.9 Chest pain, unspecified (principal); I50.9 Heart failure, unspecified; Z86.73 Personal history of transient ischemic attack (TIA), and cerebral infarction without residual deficits
CPT/HCPCS: 36415; 71010; 80053; 81001; 82550; 82553; 83690; 84484; 85025; 93005; 93010; 99285

== ENCOUNTER 2017-03-05 07:31 | Emergency (ER) | payer OTHER, MEDICARE ==
[2017-03-05 07:41] VITALS: BP 138/99
--- NOTE | 2017-03-05 08:24 | ER Document Report ---
HPI - HPI Patient complains to provider of: right anterior miramontes pain for 2 days Pain Level: 4 Context: Patient is a 61 year old male who presents to the ED complaining of right leg pain. He was able to ambulate into the ED but he states his leg hurts and it is difficulty to walk on it. He denies any trauma, fall. Denies any weakness or altered sensation. H/o previous CVA x2, h/o CAD. - REPRODUCTIVE Reproductive: DENIES: : Past Medical History - Social History Smoking Status: Unknown if Ever Smoked Chew tobacco use (# tins/day): No Frequency of alcohol use: None Drug Abuse: None Family History: CAD, DM, Hypertension, Thyroid Disfunction - Past Medical History Cardiac Medical History: Reports: Hx Congestive Heart Failure, Hx Coronary Artery Disease, Hx Heart Attack - 2009, Hx Hypercholesterolemia, Hx Hypertension Pulmonary Medical History: Reports: Hx Asthma, Hx Bronchitis, Hx COPD, Hx Sleep Apnea Neurological Medical History: Reports: Hx Cerebrovascular Accident - x 2. Denies: Hx Seizures Endocrine Medical History: Reports: Hx Diabetes Mellitus Type 1, Hx Diabetes Mellitus Type 2 Renal/ Medical History: Denies: Hx Peritoneal Dialysis Malignancy Medical History: GI Medical History: Reports: Hx Diverticulitis, Hx Gastroesophageal Reflux Disease. Denies: Hx Pancreatitis Musculoskeltal Medical History: Reports Hx Arthritis, Reports Hx Musculoskeletal Deformity, Reports Hx Musculoskeletal Trauma Psychiatric Medical History: Reports: Hx Anxiety, Hx Post Traumatic Stress Disorder Denies: Hx Depression Traumatic Medical History: Denies: Hx Fractures Infectious Medical History: Past Surgical History: Reports: Hx Abdominal Surgery - for diverticulitis, Hx Bowel Surgery - Colon resection due to diverticulitis, Hx Cardiac Catheterization, Hx Cardiac Surgery - 1984, ICD placement 2015, Hx Coronary Artery Bypass Graft, Hx Coronary Stent - 1984, Hx Thyroid Surgery, Other - AICD - Immunizations Immunizations up to date: Yes Hx Diphtheria, Pertussis, Tetanus Vaccination: Yes Hx Pneumococcal Vaccination: 05/26/10 Vertical Provider Document - CONSTITUTIONAL Agree With Documented VS: Yes Exam Limitations: No Limitations General Appearance: WD/WN, No Apparent Distress Notes: PHYSICAL EXAM GENERAL: Alert, interacts well. LUNGS: Clear to auscultation bilaterally, no wheezes, rales, or rhonchi. No respiratory distress. HEART: Regular rate and rhythm. No murmurs, gallops, or rubs. ABDOMEN: Soft, nondistended, nontender. No guarding, rebound, or rigidity.. Bowel sounds present in all 4 quadrants. EXTREMITIES: Tenderness to palpation of right anterior tibia with pain reproducible on exam. No evidence of deformity, edema, ecchymosis. Moves all 4 extremities spontaneously. No edema, radial and dorsalis pedis pulses 2/4 bilaterally. No cyanosis. NEUROLOGICAL: Alert and oriented x4. Normal speech. PSYCH: Normal affect, normal mood. SKIN: Warm, dry, normal turgor. No rashes or lesions noted. - INFECTION CONTROL TRAVEL OUTSIDE OF THE [place] IN LAST 30 DAYS: No - RESPIRATORY O2 Sat by Pulse Oximetry: 96 Course - Re-evaluation Re-evalutation: 03/05/17 8:00 Patient is a 61 year old male who is hemodynamically stable, no acute, distress and afebrile. No focal neurological defecits, able to follow commands without difficulty. Able to ambulate without assistance. No evidence of a septic joint, gout flare, dislocation, or fracture on exam and imaging. Vitals wnl. At this time, I do not see an indication for labs or further imaging. Will discharge with conservative measures, return precautions, and follow-up recommendations. - Vital Signs Vital signs: Temp Pulse Resp BP Pulse Ox 98.6 F 79 16 138/99 H 96 03/05/17 07:39 03/05/17 07:39 03/05/17 07:39 03/05/17 07:39 03/05/17 07:39 Discharge - Discharge Clinical Impression: Leg pain Qualifiers: Laterality: right Qualified Code(s): M79.604 - Pain in right leg Condition: Good Disposition: HOME, SELF-CARE Instructions: Acetaminophen, Ice & Elevation ([facility]) Additional Instructions: Your visit today is consistent with a muscle injury in your leg. Please elevate and use ice. You can take tylenol as needed for pain. Please follow up with your primary care doctor
--- NOTE | 2017-03-05 09:24 | RADIOLOGY REPORT (SQ) ---
EXAM DESCRIPTION: TIBIA FIBULA RIGHT COMPLETED DATE/TIME: 03/05/2017 8:47 am REASON FOR STUDY: pain with walking for 2 days COMPARISON: None. NUMBER OF VIEWS: Two views. TECHNIQUE: Two radiographic images acquired of the right tibia and fibula to include the knee and an kle in at least one projection. LIMITATIONS: None. FINDINGS: MINERALIZATION: Normal. BONES: No acute fracture or dislocation. No worrisome bone lesions. Prominent calcaneal spur at the Achilles attachment SOFT TISSUES: No obvious swelling or foreign body. OTHER: No other significant finding. IMPRESSION: NEGATIVE STUDY OF THE RIGHT TIBIA AND FIBULA. NO RADIOGRAPHIC EVIDENCE OF ACUTE INJURY. TECHNICAL DOCUMENTATION: JOB ID: [id number] [employer]- All Rights Reserved
[2017-03-05] MEDS ORDERED: ACETAMINOPHEN 325 MG TABLET PO ONE (10:16)
== END 2017-03-05 10:28 | disposition home or self-care (01) ==
LOC: ER 07:31
DX: M79.604 Pain in right leg (principal)
CPT/HCPCS: 99283

== ENCOUNTER 2017-03-05 15:52 | Emergency (ER) | payer OTHER, MEDICARE ==
[2017-03-05 16:00] VITALS: BP 134/91
--- NOTE | 2017-03-05 16:36 | ER Document Report ---
ED Extremity Problem, Lower - General Chief Complaint: Foot Pain Stated Complaint: KNEE PAIN Time Seen by Provider: 03/05/17 16:35 Mode of Arrival: Ambulatory Notes: This is a 61-year-old disabled who presents for the second time today with complaint of pain in his foot. States he was seen earlier and given some aspirin at still having pain. No further injuries. TRAVEL OUTSIDE OF THE [place] IN LAST 30 DAYS: No - Related Data Allergies/Adverse Reactions: captopril [From Capoten] Allergy (Severe, Verified 03/05/17 07:40) Angioedema atorvastatin calcium [From Lipitor] Allergy (Intermediate, Verified 03/05/17 07: 40) Angioedema atorvastatin [From Lipitor] Allergy (Verified 03/05/17 07:40) clopidogrel [From Plavix] Allergy (Verified 03/05/17 07:40) rosuvastatin [From Crestor] Allergy (Verified 03/05/17 07:40) simvastatin [From Zocor] Allergy (Verified 03/05/17 07:40) Angioedema Past Medical History - Social History Smoking Status: Smoker,Current Status Unk Family History: CAD, DM, Hypertension, Thyroid Disfunction - Past Medical History Cardiac Medical History: Reports: Hx Congestive Heart Failure, Hx Coronary Artery Disease, Hx Heart Attack - 2008, Hx Hypercholesterolemia, Hx Hypertension Pulmonary Medical History: Reports: Hx Asthma, Hx Bronchitis, Hx COPD, Hx Sleep Apnea Neurological Medical History: Reports: Hx Cerebrovascular Accident - x 2. Denies: Hx Seizures Endocrine Medical History: Reports: Hx Diabetes Mellitus Type 1, Hx Diabetes Mellitus Type 2 Renal/ Medical History: Denies: Hx Peritoneal Dialysis Malignancy Medical History: GI Medical History: Reports: Hx Diverticulitis, Hx Gastroesophageal Reflux Disease. Denies: Hx Pancreatitis Musculoskeltal Medical History: Reports Hx Arthritis, Reports Hx Musculoskeletal Deformity, Reports Hx Musculoskeletal Trauma Psychiatric Medical History: Reports: Hx Anxiety, Hx Post Traumatic Stress Disorder Denies: Hx Depression Traumatic Medical History: Denies: Hx Fractures Infectious Medical History: Past Surgical History: Reports: Hx Abdominal Surgery - for diverticulitis, Hx Bowel Surgery - Colon resection due to diverticulitis, Hx Cardiac Catheterization, Hx Cardiac Surgery - 1984, ICD placement 2015, Hx Coronary Artery Bypass Graft, Hx Coronary Stent - 1984, Hx Thyroid Surgery, Other - AICD - Immunizations Immunizations up to date: Yes Hx Diphtheria, Pertussis, Tetanus Vaccination: Yes Hx Pneumococcal Vaccination: 05/26/10 Review of Systems - Review of Systems Constitutional: No symptoms reported EENT: No symptoms reported Cardiovascular: No symptoms reported Respiratory: No symptoms reported Gastrointestinal: No symptoms reported Genitourinary: No symptoms reported Male Genitourinary: No symptoms reported Musculoskeletal: No symptoms reported, Other - Pain at the top of the right foot Skin: No symptoms reported Hematologic/Lymphatic: No symptoms reported Neurological/Psychological: No symptoms reported Physical Exam - Vital signs Vitals: Temp Pulse Resp BP Pulse Ox 97.9 F 95 19 134/91 H 97 03/05/17 15:57 03/05/17 15:57 03/05/17 15:57 03/05/17 15:57 03/05/17 15:57 Interpretation: Normal. No: Tachycardic, Tachypneic - General In distress: None - Respiratory Respiratory status: No respiratory distress Chest status: Nontender Breath sounds: Normal - Cardiovascular Rhythm: Regular Heart sounds: Normal auscultation - Abdominal Inspection: Normal Distension: No distension Bowel sounds: Normal Tenderness: Nontender - Extremities General upper extremity: Normal ROM General lower extremity: Normal inspection Knee: Normal, Nontender Calf: Normal, Nontender Foot: Normal, Tender - Mild tenderness to palpation top of right foot. Good bounding pulses right lower extremity dorsalis pedis and posterior tibialis. No appreciable edema. - Skin Skin Temperature: Warm Skin Color: Normal Course - Re-evaluation Re-evalutation: 03/05/17 16:55 We will get Accu-Chek based on his history of diabetes to make sure his sugar is not crazy high. Will get x-ray of the foot. Will review note from earlier this morning. 03/05/17 17:12 Labs- Entire Visit 03/05/17 16:50 POC Glucose 156 H 03/05/17 17:42 Foot X-Ray 03/05/17 16:51 IMPRESSION: No acute abnormality. Calcaneal spur. Degenerative joint changes as described. 03/05/17 17:42 No obvious fracture. Nothing seen on the tib-fib from earlier today. No obvious abnormalities of the foot x-ray. Blood sugar 156. I find no evidence of patient has suspicion of DVT. No evidence of CHF. Has bounding pulses to the right foot. Find nothing further at this time. Patient advised to return for worsening symptoms or concerns - Vital Signs Vital signs: Temp Pulse Resp BP Pulse Ox 97.9 F 95 19 134/91 H 97 03/05/17 15:57 03/05/17 15:57 03/05/17 15:57 03/05/17 15:57 03/05/17 15:57 - Laboratory Laboratory results interpreted by me: 03/05/17 16:50 POC Glucose 156 H Discharge - Discharge Clinical Impression: Right foot pain Disposition: HOME, SELF-CARE Additional Instructions: Foot contusion Your injury has resulted in a contusion -- a crushing of the deep tissues. No injury to important structures was detected during the physician's exam. Contusions vary in the amount of pain they cause, and in the length of time required for healing. Typically, the area will become bruised, and will remain painful to touch for two or three weeks. However, most patients are back to working and playing within a few days. After the initial period of rest and cold-packs, your symptoms (together with the doctor's recommendations) will determine how rapidly you can get back to full activity. Usually this means "do what feels okay, but don't do things that hurt." If re-examination was recommended, it's important to follow up as instructed. Call the doctor or return any time if pain increases, if swelling becomes severe, if you develop numbness or weakness in an injured extremity, or if any other alarming symptoms occur.
--- NOTE | 2017-03-05 17:32 | RADIOLOGY REPORT (SQ) ---
EXAM DESCRIPTION: FOOT RIGHT 2 VIEWS COMPLETED DATE/TIME: 03/05/2017 5:11 pm REASON FOR STUDY: Foot pain on the right COMPARISON: None. NUMBER OF VIEWS: Three views. TECHNIQUE: AP, lateral and oblique radiographic images acquired of the right foot. LIMITATIONS: None. FINDINGS: MINERALIZATION: Normal. BONES: No fracture or dislocation. There is a large dorsal calcaneal spur. JOINTS: Degenerative joint changes seen in the articulations of the sesamoids and the 1st metatarsal. SOFT TISSUES: No soft tissue swelling. No foreign body. OTHER: No other significant finding. IMPRESSION: No acute abnormality. Calcaneal spur. Degenerative joint changes as described. TECHNICAL DOCUMENTATION: JOB ID: [id number] [employer]- All Rights Reserved
== END 2017-03-05 17:55 | disposition home or self-care (01) ==
LOC: ER 15:52
DX: M79.671 Pain in right foot (principal); M25.561 Pain in right knee; F17.200 Nicotine dependence, unspecified, uncomplicated
CPT/HCPCS: 82962; 99284

== ENCOUNTER 2017-03-06 01:53 | Emergency (ER) | payer OTHER, MEDICARE ==
[2017-03-06 02:03] VITALS: BP 122/69
[2017-03-06] MEDS ORDERED: ACETAMINOPHEN 325 MG TABLET PO ONE (02:25)
--- NOTE | 2017-03-06 02:26 | ER Document Report ---
ED Extremity Problem, Lower - General Chief Complaint: Leg Pain Stated Complaint: LEG PAIN Time Seen by Provider: 03/06/17 02:24 Notes: The patient is a 61-year-old male, PMHx prior CVA, chronic bilateral foot pain, presents with his usual right foot pain. He has visited the ER for the past several nights for the same pain. He denies new injury, fevers or numbness. TRAVEL OUTSIDE OF THE [place] IN LAST 30 DAYS: No - Related Data Allergies/Adverse Reactions: captopril [From Capoten] Allergy (Severe, Verified 03/05/17 07:40) Angioedema atorvastatin calcium [From Lipitor] Allergy (Intermediate, Verified 03/05/17 07: 40) Angioedema atorvastatin [From Lipitor] Allergy (Verified 03/05/17 07:40) clopidogrel [From Plavix] Allergy (Verified 03/05/17 07:40) rosuvastatin [From Crestor] Allergy (Verified 03/05/17 07:40) simvastatin [From Zocor] Allergy (Verified 03/05/17 07:40) Angioedema Past Medical History - General Information source: Patient - Social History Smoking Status: Unknown if Ever Smoked Family History: CAD, DM, Hypertension, Thyroid Disfunction Patient has suicidal ideation: No Patient has homicidal ideation: No - Past Medical History Cardiac Medical History: Reports: Hx Congestive Heart Failure, Hx Coronary Artery Disease, Hx Heart Attack - 2008, Hx Hypercholesterolemia, Hx Hypertension Pulmonary Medical History: Reports: Hx Asthma, Hx Bronchitis, Hx COPD, Hx Sleep Apnea Neurological Medical History: Reports: Hx Cerebrovascular Accident - x 2. Denies: Hx Seizures Endocrine Medical History: Reports: Hx Diabetes Mellitus Type 1, Hx Diabetes Mellitus Type 2 Renal/ Medical History: Denies: Hx Peritoneal Dialysis Malignancy Medical History: GI Medical History: Reports: Hx Diverticulitis, Hx Gastroesophageal Reflux Disease. Denies: Hx Pancreatitis Musculoskeltal Medical History: Reports Hx Arthritis, Reports Hx Musculoskeletal Deformity, Reports Hx Musculoskeletal Trauma Psychiatric Medical History: Reports: Hx Anxiety, Hx Post Traumatic Stress Disorder Denies: Hx Depression Traumatic Medical History: Denies: Hx Fractures Infectious Medical History: Past Surgical History: Reports: Hx Abdominal Surgery - for diverticulitis, Hx Bowel Surgery - Colon resection due to diverticulitis, Hx Cardiac Catheterization, Hx Cardiac Surgery - 1984, ICD placement 2015, Hx Coronary Artery Bypass Graft, Hx Coronary Stent - 1984, Hx Thyroid Surgery, Other - AICD - Immunizations Immunizations up to date: Yes Hx Diphtheria, Pertussis, Tetanus Vaccination: Yes Hx Pneumococcal Vaccination: 05/26/10 Review of Systems - Review of Systems Notes: REVIEW OF SYSTEMS: CONSTITUTIONAL: -fevers, -chills EENT: -eye pain, -difficulty swallowing, -nasal congestion CARDIOVASCULAR:-chest pain, -syncope. RESPIRATORY: -cough, -SOB GASTROINTESTINAL: -abdominal pain, - nausea, -vomiting, -diarrhea GENITOURINARY: -dysuria, -hematuria MUSCULOSKELETAL: +B/L foot pain, -back pain, -neck pain SKIN: -rash or skin lesions. HEMATOLOGIC: -easy bruising or bleeding. LYMPHATIC: -swollen, enlarged glands. NEUROLOGICAL: -altered mental status or loss of consciousness, -headache, - neurologic symptoms PSYCHIATRIC: -anxiety, -depression. ALL OTHER SYSTEMS REVIEWED AND NEGATIVE. Physical Exam - Vital signs Vitals: Temp Pulse Resp BP Pulse Ox 98.6 F 90 16 122/69 96 03/06/17 01:58 03/06/17 01:58 03/06/17 01:58 03/06/17 01:58 03/06/17 01:58 - Notes Notes: PHYSICAL EXAMINATION: GENERAL: Well-appearing, well-nourished and in no acute distress. HEAD: Atraumatic, normocephalic. EYES: Pupils equal round and reactive to light, extraocular movements intact, sclera anicteric, conjunctiva are normal. ENT: nares patent, oropharynx clear without exudates. Moist mucous membranes. NECK: Normal range of motion, supple without lymphadenopathy LUNGS: Breath sounds clear to auscultation bilaterally and equal. No wheezes rales or rhonchi. HEART: Regular rate and rhythm without murmurs ABDOMEN: Soft, nontender, normoactive bowel sounds. No guarding, no rebound. No masses appreciated. EXTREMITIES: Normal range of motion, no pitting or edema. No cyanosis. Non- tender feet. Surgical scar over right foot. NEUROLOGICAL: Cranial nerves grossly intact. Normal sensory and motor exams. PSYCH: Normal mood, normal affect. SKIN: Warm, Dry, normal turgor, no rashes or lesions noted. Course - Re-evaluation Re-evalutation: Patient with chronic foot pain that is worse on the right. He has had multiple ER visits for this. Does not appear to be infected and he has no injuries. Instructed him to soak the wounds and take Motrin for any pain. He will follow- up with orthopedics. - Vital Signs Vital signs: Temp Pulse Resp BP Pulse Ox 98.6 F 90 16 122/69 96 03/06/17 01:58 03/06/17 01:58 03/06/17 01:58 03/06/17 01:58 03/06/17 01:58 Discharge - Discharge Clinical Impression: Chronic foot pain Qualifiers: Laterality: right Qualified Code(s): M79.671 - Pain in right foot Condition: Stable Disposition: HOME, SELF-CARE Additional Instructions: Follow-up with orthopedics for your chronic foot pain. You may soak it and take Tylenol to help with any pain. Referrals: JASON HERNANDEZ MD [ACTIVE STAFF] - Follow up as needed
== END 2017-03-06 02:40 | disposition home or self-care (01) ==
LOC: ER 01:53
DX: G89.29 Other chronic pain (principal); M79.671 Pain in right foot; M79.672 Pain in left foot; L90.5 Scar conditions and fibrosis of skin; E11.9 Type 2 diabetes mellitus without complications; I25.10 Atherosclerotic heart disease of native coronary artery without angina pectoris; I10 Essential (primary) hypertension; J44.9 Chronic obstructive pulmonary disease, unspecified; I25.2 Old myocardial infarction; Z86.73 Personal history of transient ischemic attack (TIA), and cerebral infarction without residual deficits; Z88.8 Allergy status to other drugs, medicaments and biological substances
CPT/HCPCS: 99282

== ENCOUNTER 2017-03-08 22:59 | Emergency (ER) | payer OTHER, MEDICARE ==
--- NOTE | 2017-03-09 00:26 | ER Document Report ---
HPI - HPI Patient complains to provider of: foot pain for two days Pain Level: 5 Context: patient is a 61-year-old male who returns emergency department this evening complaining of right big toe pain. Patient states that he has been seen for this previously. States he is not set up an appointment for follow[facility] with [facility] or [facility]. At this time he states that his main issue is his right big toe has been hurting him worse over the past 2 days with swelling and tenderness. Does have a history of gout. - REPRODUCTIVE Reproductive: DENIES: : - DERM Skin Color: Normal Past Medical History - Social History Smoking Status: Former Smoker Family History: CAD, DM, Hypertension, Thyroid Disfunction Patient has suicidal ideation: No Patient has homicidal ideation: No - Past Medical History Cardiac Medical History: Reports: Hx Congestive Heart Failure, Hx Coronary Artery Disease, Hx Heart Attack - 2008, Hx Hypercholesterolemia, Hx Hypertension Pulmonary Medical History: Reports: Hx Asthma, Hx Bronchitis, Hx COPD, Hx Sleep Apnea Neurological Medical History: Reports: Hx Cerebrovascular Accident - x 2. Denies: Hx Seizures Endocrine Medical History: Reports: Hx Diabetes Mellitus Type 1, Hx Diabetes Mellitus Type 2 Renal/ Medical History: Denies: Hx Peritoneal Dialysis Malignancy Medical History: GI Medical History: Reports: Hx Diverticulitis, Hx Gastroesophageal Reflux Disease. Denies: Hx Pancreatitis Musculoskeltal Medical History: Reports Hx Arthritis, Reports Hx Musculoskeletal Deformity, Reports Hx Musculoskeletal Trauma Psychiatric Medical History: Reports: Hx Anxiety, Hx Post Traumatic Stress Disorder Denies: Hx Depression Traumatic Medical History: Denies: Hx Fractures Infectious Medical History: Past Surgical History: Reports: Hx Abdominal Surgery - for diverticulitis, Hx Bowel Surgery - Colon resection due to diverticulitis, Hx Cardiac Catheterization, Hx Cardiac Surgery - 1984, ICD placement 2015, Hx Coronary Artery Bypass Graft, Hx Coronary Stent - 1984, Hx Thyroid Surgery, Other - AICD - Immunizations Immunizations up to date: Yes Hx Diphtheria, Pertussis, Tetanus Vaccination: Yes Hx Pneumococcal Vaccination: 05/26/10 Vertical Provider Document - CONSTITUTIONAL Agree With Documented VS: Yes Exam Limitations: No Limitations General Appearance: WD/WN, No Apparent Distress Notes: PHYSICAL EXAM GENERAL: Alert, interacts well. EXTREMITIES: Right big toe tenderness, swelling without evidence of deformity. Moves all 4 extremities spontaneously. No edema, radial and dorsalis pedis pulses 2/4 bilaterally. No cyanosis. NEUROLOGICAL: Alert and oriented x4. Normal speech. PSYCH: Normal affect, normal mood. SKIN: Warm, dry, normal turgor. No rashes or lesions noted. - INFECTION CONTROL TRAVEL OUTSIDE OF THE [place] IN LAST 30 DAYS: No - RESPIRATORY O2 Sat by Pulse Oximetry: 98 Course - Re-evaluation Re-evalutation: 03/09/17 01:30 Patient is a 61-year-old male who is hemodynamically stable, no acute distress and afebrile. No evidence of a septic joint, dislocation, or fracture on exam and imaging. given history of gout and unclear how long the symptoms began going on since he has been evaluated in this department multiple times for this , will discharge home on prednisone taper and can continue to take Tylenol at home. Vitals wnl. At this time, I do not see an indication for labs or further imaging. Will discharge with conservative measures, return precautions, and follow-up recommendations. - Vital Signs Vital signs: Temp Pulse Resp BP Pulse Ox 98.4 F 91 16 116/71 98 03/08/17 23:20 03/08/17 23:20 03/08/17 23:20 03/08/17 23:20 03/08/17 23:20 - Diagnostic Test Radiology reviewed: Image reviewed, Reports reviewed Discharge - Discharge Clinical Impression: Heel spur Qualifiers: Laterality: right Qualified Code(s): M77.31 - Calcaneal spur, right foot Foot pain Qualifiers: Laterality: right Qualified Code(s): M79.671 - Pain in right foot Condition: Good Disposition: HOME, SELF-CARE Instructions: Plantar Fasciitis or Heel Spur ([facility]) Additional Instructions: Please take you medications as prescribed Prescriptions: Prednisone 20 mg PO ASDIR 8 Days tablet Referrals: CARI MEREDITH, KIMBERLY [Primary Care Provider] - Follow up as needed
--- NOTE | 2017-03-09 01:10 | RADIOLOGY REPORT (SQ) ---
EXAM DESCRIPTION: TIBIA FIBULA RIGHT COMPLETED DATE/TIME: 03/09/2017 1:00 am REASON FOR STUDY: fall today, pain and swelling COMPARISON: 03/05/2017 NUMBER OF VIEWS: Two views. TECHNIQUE: Two radiographic images acquired of the right tibia and fibula to include the knee and an kle in at least one projection. LIMITATIONS: None. FINDINGS: MINERALIZATION: Normal. BONES: No acute fracture or dislocation. No worrisome bone lesions. SOFT TISSUES: No obvious swelling or foreign body. OTHER: No other significant finding. IMPRESSION: NEGATIVE STUDY OF THE RIGHT TIBIA AND FIBULA. NO RADIOGRAPHIC EVIDENCE OF ACUTE INJURY. TECHNICAL DOCUMENTATION: JOB ID: [id number] [employer]- All Rights Reserved
--- NOTE | 2017-03-09 01:11 | RADIOLOGY REPORT (SQ) ---
EXAM DESCRIPTION: FOOT RIGHT COMPLETE COMPLETED DATE/TIME: 03/09/2017 1:00 am REASON FOR STUDY: fall today, pain and swelling COMPARISON: None. NUMBER OF VIEWS: Three views. TECHNIQUE: AP, lateral and oblique radiographic images acquired of the right foot. LIMITATIONS: None. FINDINGS: MINERALIZATION: Normal. BONES: No acute fracture or dislocation. No worrisome bone lesions. 1st metatarsal phalangeal degen erative changes. JOINTS: No effusions. SOFT TISSUES: No soft tissue swelling. No foreign body. OTHER: No other significant finding. IMPRESSION: NEGATIVE STUDY OF THE RIGHT FOOT. NO RADIOGRAPHIC EVIDENCE OF ACUTE INJURY. TECHNICAL DOCUMENTATION: JOB ID: [id number] [employer]- All Rights Reserved
[2017-03-09] MEDS ORDERED: PREDNISONE 20 MG TABLET PO ONE (01:52)
[2017-03-09] MEDS ORDERED: ACETAMINOPHEN 325 MG TABLET PO ONE (01:52)
[2017-03-09 02:30] VITALS: BP 121/73
== END 2017-03-09 02:30 | disposition home or self-care (01) ==
LOC: ER 22:59
DX: M77.31 Calcaneal spur, right foot (principal); M79.674 Pain in right toe(s); M79.671 Pain in right foot; I25.10 Atherosclerotic heart disease of native coronary artery without angina pectoris; I25.2 Old myocardial infarction; I10 Essential (primary) hypertension; J44.9 Chronic obstructive pulmonary disease, unspecified; E11.9 Type 2 diabetes mellitus without complications; Z95.5 Presence of coronary angioplasty implant and graft; Z95.1 Presence of aortocoronary bypass graft
CPT/HCPCS: 99283; 73630; 73590; J7512

== ENCOUNTER 2017-03-10 08:26 | Emergency (ER) | payer OTHER, MEDICARE ==
[2017-03-10 09:56] LABS: ABSOLUTE BASOPHILS # (AUTO) 0.1 10^3/uL (0.0-0.2); ABSOLUTE LYMPHOCYTES (AUTO) 0.9 10^3/uL (0.5-4.7); ABSOLUTE MONOCYTES (AUTO) 0.8 10^3/uL (0.1-1.4); ABSOLUTE NEUT (AUTO) 6.8 10^3/uL (1.7-8.2); BASOPHILS % (AUTO) 0.6 % (0-2); EOSINOPHILS % (AUTO) 0.1 % (0-6); HEMATOCRIT 40.5 % (37.9-51.0); HEMOGLOBIN 13.8 g/dL (13.5-17.0); HGB HCT DIFFERENCE 0.9; LYMPHOCYTES % (AUTO) 10.3 % (13-45); MEAN CORPUSCULAR HEMOGLOBIN 29.2 pg (27.0-33.4); MEAN CORPUSCULAR VOLUME 86 fl (80-97); MONOCYTES % (AUTO) 9.7 % (3-13); RED BLOOD COUNT 4.71 10^6/uL (4.35-5.55); RED CELL DISTRIBUTION WIDTH 14.5 % (11.5-14.0); SEGMENTED NEUTROPHILS % (AUTO) 79.3 % (42-78); WHITE BLOOD COUNT 8.6 10^3/uL (4.0-10.5)
[2017-03-10 10:04] LABS: APPEARANCE,URINE CLEAR; BILIRUBIN,URINE NEGATIVE (NEGATIVE); GLUCOSE, URINE NEGATIVE (NEGATIVE); KETONES,URINE NEGATIVE (NEGATIVE); LEUKOCYTE ESTERASE,URINE NEGATIVE (NEGATIVE); NITRITE,URINE NEGATIVE (NEGATIVE); PROTEIN,URINE 30 mg/dL (NEGATIVE); URINE SPECIFIC GRAVITY 1.015; UROBILINOGEN,URINE NEGATIVE mg/dL (<2.0)
[2017-03-10 10:14] LABS: ALANINE AMINOTRANSFERASE 25 U/L (21-72); ALBUMIN 4.3 g/dL (3.5-5.0); ALKALINE PHOSPHATASE 64 U/L (38-126); ANION GAP 17 (5-19); ASPARTATE AMINO TRANSFERASE 17 U/L (17-59); BILIRUBIN,DIRECT 0.3 mg/dL (0.0-0.4); BILIRUBIN,TOTAL 0.5 mg/dL (0.2-1.3); BLOOD UREA NITROGEN 20 mg/dL (7-20); CALCIUM 9.4 mg/dL (8.4-10.2); CARBON DIOXIDE 26 mmol/L (22-30); CHLORIDE 105 mmol/L (98-107); CREATINE KINASE 65 U/L (55-170); CREATININE RESULT 1.05 mg/dL (0.52-1.25); GLUCOSE 137 mg/dL (75-110); POTASSIUM 4.2 mmol/L (3.6-5.0); SODIUM 148.1 mmol/L (137-145); TOTAL PROTEIN 7.3 g/dL (6.3-8.2)
[2017-03-10 10:26] LABS: CREATINE KINASE MB 2.85 ng/mL (<4.55)
[2017-03-10 10:29] LABS: TROPONIN I 0.041 ng/mL
--- NOTE | 2017-03-10 10:31 | ER Document Report ---
ED General - General Mode of Arrival: Medic Information source: Patient, [facility] Records TRAVEL OUTSIDE OF THE [place] IN LAST 30 DAYS: No - HPI Onset: Other - see narrative Severity: None Pain Level: 0 Similar symptoms previously: Yes Recently seen / treated by doctor: Yes <SELENA SNYDER - Last Filed: 03/10/17 10:40> <HOLLY [place] - Last Filed: 03/10/17 11:00> - General Chief Complaint: Abdominal Pain Stated Complaint: ABDOMINAL PROBLEM Time Seen by Provider: 03/10/17 10:10 Notes: Patient is a 61 year old male that presents to the emergency department today with multiple generalized complaints. Patient was seen here 3 times over the last 3 days for lower extremity swelling which is a chronic issue for him. Patient states now his right lower extremity is mildly swollen but this is essentially his baseline. Patient reports being started on prednisone during one of these visits and he is concerned because after he took the prednisone his "manhood started to rise". Patient reports difficulty with urination last night with associated abdominal pain. Patient states when that began he developed "hot sweats" and "light" chest pain. Patient states is no longer having urinary retention, chest pain, sweats, or abdominal pain now. Patient took 4 aspirin prior to arrival. Patient states he [facility] to go [facility] to avoid coming to the [facility] a few days ago and he "sat there all day and did not see anyone". Patient also denies any testicular pain, testicular swelling, or penile pain. (SELENA SNYDER) - Related Data Allergies/Adverse Reactions: captopril [From Capoten] Allergy (Severe, Verified 03/10/17 08:36) Angioedema atorvastatin calcium [From Lipitor] Allergy (Intermediate, Verified 03/10/17 08: 36) Angioedema atorvastatin [From Lipitor] Allergy (Verified 03/10/17 08:36) clopidogrel [From Plavix] Allergy (Verified 03/10/17 08:36) rosuvastatin [From Crestor] Allergy (Verified 03/10/17 08:36) simvastatin [From Zocor] Allergy (Verified 03/10/17 08:36) Angioedema Past Medical History - General Information source: Patient, [facility] Records - Social History Smoking Status: Former Smoker Cigarette use (# per day): No Frequency of alcohol use: None Drug Abuse: None Lives with: Alone Family History: Reviewed & Not Pertinent, CAD, DM, Hypertension, Thyroid Disfunction Patient has suicidal ideation: No - Past Medical History Cardiac Medical History: Reports: Hx Congestive Heart Failure, Hx Coronary Artery Disease, Hx Heart Attack - 2009, Hx Hypercholesterolemia, Hx Hypertension Pulmonary Medical History: Reports: Hx Asthma, Hx Bronchitis, Hx COPD, Hx Sleep Apnea Neurological Medical History: Reports: Hx Cerebrovascular Accident - x 2 Endocrine Medical History: Reports: Hx Diabetes Mellitus Type 2 Renal/ Medical History: Malignancy Medical History: GI Medical History: Reports: Hx Diverticulitis, Hx Gastroesophageal Reflux Disease Musculoskeltal Medical History: Reports Hx Arthritis, Reports Hx Musculoskeletal Deformity, Reports Hx Musculoskeletal Trauma Psychiatric Medical History: Reports: Hx Anxiety, Hx Post Traumatic Stress Disorder Infectious Medical History: Past Surgical History: Reports: Hx Abdominal Surgery - for diverticulitis, Hx Bowel Surgery - Colon resection due to diverticulitis, Hx Cardiac Catheterization, Hx Cardiac Surgery - 1984, ICD placement 2015, Hx Coronary Artery Bypass Graft, Hx Coronary Stent - 1984, Hx Thyroid Surgery, Other - AICD - Immunizations Immunizations up to date: Yes Hx Diphtheria, Pertussis, Tetanus Vaccination: Yes Hx Pneumococcal Vaccination: 05/26/10 <SELENA SNYDER - Last Filed: 03/10/17 10:40> Review of Systems - Review of Systems Constitutional: See HPI, Diaphoresis - "hot sweats" EENT: No symptoms reported Cardiovascular: No symptoms reported Respiratory: No symptoms reported Gastrointestinal: No symptoms reported Genitourinary: See HPI, Retention. denies: Pain Male Genitourinary: denies: Testicular pain, Penile discharge Musculoskeletal: See HPI, Leg swelling - RLE Skin: No symptoms reported Hematologic/Lymphatic: No symptoms reported Neurological/Psychological: No symptoms reported -: Yes All other systems reviewed and negative <SELENA SNYDER - Last Filed: 03/10/17 10:40> Physical Exam <SELENA SNYDER - Last Filed: 03/10/17 10:40> <HOLLY [place] - Last Filed: 03/10/17 11:00> - Vital signs Vitals: Temp Pulse Resp BP Pulse Ox 98.4 F 95 18 151/103 H 99 03/10/17 08:40 03/10/17 08:40 03/10/17 08:40 03/10/17 08:40 03/10/17 08:40 - Notes Notes: Physical Exam: General: Alert, appears well. HEENT: Normocephalic. Atraumatic. PERRL. Extraocular movements intact. Oropharynx clear. Neck: Supple. Non-tender. Respiratory: No respiratory distress. Pacemaker palpated in left chest wall. Clear and equal breath sounds bilaterally. Cardiovascular: Regular rate and rhythm. Abdominal: Obese. Non-tender. No distension. Normal Bowel Sounds. Back: Non-tender. No deformity or step off. Extremities: Moves all four extremities. Upper extremities: Normal inspection. Normal ROM. Lower extremities: Trace peripheral edema to bilateral lower extremities, eduardo wrap on right calf removed for exam. Normal ROM. Neurological: Normal cognition. AAOx4. Speech impediment at baseline according to records. Psychological: Normal affect. Normal Mood. Skin: Warm. Dry. Normal color. (SELENA SNYDER) Course - Laboratory Result Diagrams: 03/10/17 09:20 03/10/17 09:20 <SELENA SNYDER - Last Filed: 03/10/17 10:40> - Laboratory Result Diagrams: 03/10/17 09:20 03/10/17 09:20 <HOLLY [place] - Last Filed: 03/10/17 11:00> - Re-evaluation Re-evalutation: 03/10/17 10:45 Pleasant interactive 61-year-old male in no acute distress. He has been in the emergency department a couple of times recently, and he also reports he [facility] on [facility]. He has told me he is come in to make sure he is okay. There does not appear to be any emergent or acute issue. He is concerned about the swelling in his legs. These seem to be doing well. He reports he has had this problem for a long time. He also is curious about whether the prednisone would be helping him. He also tells me that the prednisone seem to have an effect on his genitals, namely he developed an erection with it. He denies any penile pain or any ongoing issue and he declines examination of his genitals at this time. His blood tests overall looked reasonable. Patient's troponin is 0.04, consistent with previous troponins. His EKG shows a sinus rhythm with artifact. The patient denies any chest pain or shortness of breath. His urinalysis is reasonable. We will discharge him for follow-up with his [facility] group with the instructions to return to the emergency department if he has any urgent or emergent concerns. 03/10/17 10:57 (HOLLY OH) - Vital Signs Vital signs: Temp Pulse Resp BP Pulse Ox 98.4 F 95 18 151/103 H 99 03/10/17 08:40 03/10/17 08:40 03/10/17 08:40 03/10/17 08:40 03/10/17 08:40 - Laboratory Laboratory results interpreted by me: 03/10/17 03/10/17 03/10/17 09:20 09:20 09:26 RDW 14.5 H Seg Neutrophils % 79.3 H Lymphocytes % 10.3 L Sodium 148.1 H Glucose 137 H Urine Protein 30 H Urine Ascorbic Acid 40 H Discharge <SELENA SNYDER - Last Filed: 03/10/17 10:40> <HOLLY [place] - Last Filed: 03/10/17 11:00> - Discharge Clinical Impression: Peripheral edema, Dysuria Condition: Good Disposition: HOME, SELF-CARE Instructions: Edema, Peripheral ([facility]) Additional Instructions: Your urinalysis looked good. Your blood tests are overall reasonable. Your EKG was okay. You may continue your current medications. Follow-up with your doctors [facility]. Return to the emergency department if you are having urgent or emergent concerns. Use your regular doctors at the [facility] for your ongoing care. Scribe Documentation - Scribe Written by Hawa:: Hawa Aponte, 03/10/2017 1032 acting as scribe for :: Katie <SELENA SNYDER - Last Filed: 03/10/17 10:40>
--- NOTE | 2017-03-10 10:50 | RADIOLOGY REPORT (SQ) ---
EXAM DESCRIPTION: CHEST SINGLE VIEW COMPLETED DATE/TIME: 03/10/2017 10:39 am REASON FOR STUDY: pain COMPARISON: 02/12/2017 NUMBER OF VIEWS: One view. TECHNIQUE: Single frontal radiographic image of the chest acquired. LIMITATIONS: None. FINDINGS: LUNGS AND PLEURA: No acute findings. MEDIASTINUM AND HEART: Stable cardiomegaly. SUPPORT DEVICES: Appropriate location without change. BONY STRUCTURES: No acute findings. HARDWARE: None. OTHER: No other significant finding. IMPRESSION: Cardiomegaly. No acute findings in the chest.
[2017-03-10 11:17] VITALS: BP 125/84
--- NOTE | 2017-03-10 18:30 | EKG REPORT ---
SEVERITY:- ABNORMAL ECG - SINUS RHYTHM NONSPECIFIC INTRAVENTRICULAR CONDUCTION DELAY NONSPECIFIC T CHANGES : Confirmed by: Pooja Patel 10-Mar-2017 18:30:04
== END 2017-03-10 11:17 | disposition home or self-care (01) ==
LOC: ER 08:26
DX: R60.0 Localized edema (principal); R30.0 Dysuria; R33.9 Retention of urine, unspecified; R61 Generalized hyperhidrosis; I25.10 Atherosclerotic heart disease of native coronary artery without angina pectoris; I25.2 Old myocardial infarction; I10 Essential (primary) hypertension; J44.9 Chronic obstructive pulmonary disease, unspecified; Z88.8 Allergy status to other drugs, medicaments and biological substances; Z87.891 Personal history of nicotine dependence; Z86.73 Personal history of transient ischemic attack (TIA), and cerebral infarction without residual deficits; Z95.1 Presence of aortocoronary bypass graft; Z95.5 Presence of coronary angioplasty implant and graft; Z95.810 Presence of automatic (implantable) cardiac defibrillator
CPT/HCPCS: 36415; 71010; 80053; 81001; 82550; 82553; 84484; 85025; 93005; 93010; 99284

== ENCOUNTER 2017-03-19 15:39 | Emergency (ER) | payer OTHER, MEDICARE ==
--- NOTE | 2017-03-19 17:17 | ER Document Report ---
ED Medical Screen (RME) - General Chief Complaint: Chest Pain Stated Complaint: HEART ISSUE Time Seen by Provider: 03/19/17 17:15 Notes: Patient states that last night while having intercourse his pacemaker fire. He states he received a call from the monitoring center told him to go to emergency department immediately and have the pacemaker interrogated. TRAVEL OUTSIDE OF THE [place] IN LAST 30 DAYS: No - Related Data Allergies/Adverse Reactions: captopril [From Capoten] Allergy (Severe, Verified 03/19/17 15:52) Angioedema atorvastatin calcium [From Lipitor] Allergy (Intermediate, Verified 03/19/17 15: 52) Angioedema atorvastatin [From Lipitor] Allergy (Verified 03/19/17 15:52) clopidogrel [From Plavix] Allergy (Verified 03/19/17 15:52) rosuvastatin [From Crestor] Allergy (Verified 03/19/17 15:52) simvastatin [From Zocor] Allergy (Verified 03/19/17 15:52) Angioedema Past Medical History - Social History Family history: None - Past Medical History Cardiac Medical History: Reports: Hx Congestive Heart Failure, Hx Coronary Artery Disease, Hx Heart Attack - 2008, Hx Hypercholesterolemia, Hx Hypertension Pulmonary Medical History: Reports: Hx Asthma, Hx Bronchitis, Hx COPD, Hx Sleep Apnea Neurological Medical History: Reports: Hx Cerebrovascular Accident - x 2. Denies: Hx Seizures Endocrine Medical History: Reports: Hx Diabetes Mellitus Type 1, Hx Diabetes Mellitus Type 2 Renal/ Medical History: Denies: Hx Peritoneal Dialysis Malignancy Medical History: GI Medical History: Reports: Hx Diverticulitis, Hx Gastroesophageal Reflux Disease Musculoskeltal Medical History: Reports Hx Arthritis, Reports Hx Musculoskeletal Deformity, Reports Hx Musculoskeletal Trauma Psychiatric Medical History: Reports: Hx Anxiety, Hx Post Traumatic Stress Disorder Denies: Hx Depression Infectious Medical History: Past Surgical History: Reports: Hx Abdominal Surgery - for diverticulitis, Hx Bowel Surgery - Colon resection due to diverticulitis, Hx Cardiac Catheterization, Hx Cardiac Surgery - 1984, ICD placement 2015, Hx Coronary Artery Bypass Graft, Hx Coronary Stent - 1984, Hx Thyroid Surgery, Other - AICD - Immunizations Immunizations up to date: Yes Hx Diphtheria, Pertussis, Tetanus Vaccination: Yes Physical Exam - Vital signs Vitals: Temp Pulse Resp BP Pulse Ox 98.1 F 100 20 136/107 H 96 03/19/17 15:44 03/19/17 15:44 03/19/17 15:44 03/19/17 15:44 03/19/17 15:44 Course - Vital Signs Vital signs: Temp Pulse Resp BP Pulse Ox 98.1 F 100 20 136/107 H 96 03/19/17 15:44 03/19/17 15:44 03/19/17 15:44 03/19/17 15:44 03/19/17 15:44
[2017-03-19 18:54] LABS: ABSOLUTE BASOPHILS # (AUTO) 0.1 10^3/uL (0.0-0.2); ABSOLUTE LYMPHOCYTES (AUTO) 1.1 10^3/uL (0.5-4.7); ABSOLUTE MONOCYTES (AUTO) 0.9 10^3/uL (0.1-1.4); ABSOLUTE NEUT (AUTO) 6.3 10^3/uL (1.7-8.2); BASOPHILS % (AUTO) 1.1 % (0-2); EOSINOPHILS % (AUTO) 0.4 % (0-6); HEMATOCRIT 41.2 % (37.9-51.0); HEMOGLOBIN 14.1 g/dL (13.5-17.0); HGB HCT DIFFERENCE 1.1; MEAN CORPUSCULAR HEMOGLOBIN 29.1 pg (27.0-33.4); MEAN CORPUSCULAR HGB CONC 34.1 g/dL (32.0-36.0); MEAN CORPUSCULAR VOLUME 85 fl (80-97); MONOCYTES % (AUTO) 10.2 % (3-13); RED BLOOD COUNT 4.84 10^6/uL (4.35-5.55); RED CELL DISTRIBUTION WIDTH 14.6 % (11.5-14.0); SEGMENTED NEUTROPHILS % (AUTO) 75.3 % (42-78); WHITE BLOOD COUNT 8.4 10^3/uL (4.0-10.5)
[2017-03-19 19:12] LABS: ALANINE AMINOTRANSFERASE 42 U/L (21-72); ALBUMIN 4.2 g/dL (3.5-5.0); ALKALINE PHOSPHATASE 77 U/L (38-126); ANION GAP 15 (5-19); ASPARTATE AMINO TRANSFERASE 22 U/L (17-59); BILIRUBIN,DIRECT 0.3 mg/dL (0.0-0.4); BILIRUBIN,TOTAL 0.4 mg/dL (0.2-1.3); BLOOD UREA NITROGEN 24 mg/dL (7-20); CALCIUM 9.2 mg/dL (8.4-10.2); CARBON DIOXIDE 30 mmol/L (22-30); CHLORIDE 100 mmol/L (98-107); CREATININE RESULT 1.08 mg/dL (0.52-1.25); GLUCOSE 177 mg/dL (75-110); MAGNESIUM 2.1 mg/dL (1.6-2.3); SODIUM 144.7 mmol/L (137-145); TOTAL PROTEIN 7.2 g/dL (6.3-8.2)
--- NOTE | 2017-03-19 19:45 | EKG REPORT ---
SEVERITY:- BORDERLINE ECG - SINUS RHYTHM BORDERLINE T ABNORMALITIES, ANTERIOR LEADS BORDERLINE PROLONGED QT INTERVAL : Confirmed by: Pooja Patel 19-Mar-2017 19:44:34
--- NOTE | 2017-03-19 21:28 | ER Document Report ---
ED General - General Chief Complaint: Chest Pain Stated Complaint: CHEST PAIN Time Seen by Provider: 03/19/17 17:15 Notes: Patient is a 61-year-old male who presents emergency department stating that his defibrillator went off on March 18 during sexual intercourse. Patient states that he had one shock. Denies any previous chest pain, shortness of breath. Today he states that he received a phone call from the [facility] telling him to go the emergency room to be evaluated. At this time he denies any shortness of breath, chest pain, difficulty breathing, nausea, vomiting. Patient does not know the type of ICD/pacemaker that he has. He does not have his card on him. Primary care is the [facility] Past medical history significant for hyperlipidemia, hypertension, congestive heart failure, history of stroke, asthma, coronary artery disease COPD, insulin- dependent diabetes, TRAVEL OUTSIDE OF THE [place] IN LAST 30 DAYS: No - Related Data Allergies/Adverse Reactions: captopril [From Capoten] Allergy (Severe, Verified 03/19/17 15:52) Angioedema atorvastatin calcium [From Lipitor] Allergy (Intermediate, Verified 03/19/17 15: 52) Angioedema atorvastatin [From Lipitor] Allergy (Verified 03/19/17 15:52) clopidogrel [From Plavix] Allergy (Verified 03/19/17 15:52) rosuvastatin [From Crestor] Allergy (Verified 03/19/17 15:52) simvastatin [From Zocor] Allergy (Verified 03/19/17 15:52) Angioedema Past Medical History - Social History Smoking Status: Smoker,Current Status Unk Family History: Reviewed & Not Pertinent, CAD, DM, Hypertension, Thyroid Disfunction Patient has suicidal ideation: No Patient has homicidal ideation: No - Past Medical History Cardiac Medical History: Reports: Hx Congestive Heart Failure, Hx Coronary Artery Disease, Hx Heart Attack - 2009, Hx Hypercholesterolemia, Hx Hypertension Pulmonary Medical History: Reports: Hx Asthma, Hx Bronchitis, Hx COPD, Hx Sleep Apnea Neurological Medical History: Reports: Hx Cerebrovascular Accident - x 2. Denies: Hx Seizures Endocrine Medical History: Reports: Hx Diabetes Mellitus Type 1, Hx Diabetes Mellitus Type 2 Renal/ Medical History: Denies: Hx Peritoneal Dialysis Malignancy Medical History: GI Medical History: Reports: Hx Diverticulitis, Hx Gastroesophageal Reflux Disease Musculoskeltal Medical History: Reports Hx Arthritis, Reports Hx Musculoskeletal Deformity, Reports Hx Musculoskeletal Trauma Psychiatric Medical History: Reports: Hx Anxiety, Hx Post Traumatic Stress Disorder Denies: Hx Depression Infectious Medical History: Past Surgical History: Reports: Hx Abdominal Surgery - for diverticulitis, Hx Bowel Surgery - Colon resection due to diverticulitis, Hx Cardiac Catheterization, Hx Cardiac Surgery - 1984, ICD placement 2015, Hx Coronary Artery Bypass Graft, Hx Coronary Stent - 1984, Hx Thyroid Surgery, Other - AICD - Immunizations Immunizations up to date: Yes Hx Diphtheria, Pertussis, Tetanus Vaccination: Yes Hx Pneumococcal Vaccination: 05/26/10 Review of Systems - Review of Systems Constitutional: No symptoms reported Cardiovascular: No symptoms reported Respiratory: No symptoms reported Gastrointestinal: No symptoms reported Neurological/Psychological: No symptoms reported -: Yes All other systems reviewed and negative Physical Exam - Vital signs Vitals: Temp Pulse Resp BP Pulse Ox 98.1 F 100 20 136/107 H 96 03/19/17 15:44 03/19/17 15:44 03/19/17 15:44 03/19/17 15:44 03/19/17 15:44 - Notes Notes: PHYSICAL EXAM GENERAL: Alert, interacts well. HEAD: Normocephalic, atraumatic. EYES: Pupils equal, round, and reactive to light. Extraocular movements intact. ENT: Oral mucosa moist, tongue midline. NECK: Full range of motion. Supple. Trachea midline. LUNGS: Clear to auscultation bilaterally, no wheezes, rales, or rhonchi. No respiratory distress. HEART: Regular rate and rhythm. No murmurs, gallops, or rubs. ABDOMEN: Soft, nondistended, nontender. No guarding, rebound, or rigidity.. Bowel sounds present in all 4 quadrants. EXTREMITIES: Moves all 4 extremities spontaneously. No edema, radial and dorsalis pedis pulses 2/4 bilaterally. No cyanosis. NEUROLOGICAL: Alert and oriented x4. Normal speech. PSYCH: Normal affect, normal mood. SKIN: Warm, dry, normal turgor. No rashes or lesions noted. Course - Re-evaluation Re-evalutation: 03/19/17 21:57 Patient is a 61-year-old male who is hemodynamically stable, no acute distress afebrile. Chest pain-free. States he never had any chest pain with this episode. Contacted the [facility] in [place] who is able to look in her medical records to states that the patient has a [employer] D1 50 DynaVision ICD. States that he suffered a one time episode of 7 beat run of V. fib and received 41 J shock. Patient's pacemaker to be integrated at the bedside. 03/19/17 23:53 Patient has been chest pain-free this entire time during this stay in the department. Troponins are consistent with previous evaluations and below AMI cut off at 0.068 and repeat of 0.066. ICD has been interrogated and evaluated to be performing correctly. Will discharge home and to follow-up with the [facility] cardiology tomorrow. Patient agrees to plan. - Vital Signs Vital signs: Temp Pulse Resp BP Pulse Ox 97.9 F 83 20 142/92 H 93 03/19/17 23:58 03/19/17 23:58 03/19/17 15:44 03/19/17 23:58 03/19/17 23:58 - Laboratory Result Diagrams: 03/19/17 18:27 03/19/17 18:27 Laboratory results interpreted by me: 03/19/17 03/19/17 03/19/17 18:27 18:27 21:36 RDW 14.6 H BUN 24 H Glucose 177 H POC Glucose 196 H - EKG Interpretation by Id EKG shows normal: Sinus rhythm Rate: Normal Rhythm: NSR When compared to previous EKG there are: No significant change Discharge - Discharge Clinical Impression: ICD (implantable cardioverter-defibrillator) discharge Condition: Stable Disposition: HOME, SELF-CARE Additional Instructions: Your workup today did not show any evidence of a cardiac event requiring hospital admission or procedures. Your ICD and pacemaker are working appropriately. Please follow-up with the [facility] in [place] tomorrow on March 20 with your seo manager.
[2017-03-19 23:59] VITALS: BP 142/92
== END 2017-03-20 00:22 | disposition home or self-care (01) ==
LOC: ER 15:39
DX: T82.198A Other mechanical complication of other cardiac electronic device, initial encounter (principal); R07.9 Chest pain, unspecified; E78.5 Hyperlipidemia, unspecified; I10 Essential (primary) hypertension; I50.9 Heart failure, unspecified; I25.10 Atherosclerotic heart disease of native coronary artery without angina pectoris; J44.9 Chronic obstructive pulmonary disease, unspecified; E11.9 Type 2 diabetes mellitus without complications; Z79.4 Long term (current) use of insulin; F17.200 Nicotine dependence, unspecified, uncomplicated
CPT/HCPCS: 36415; 80053; 82962; 83735; 84484; 85025; 93005; 93010; 99285

== ENCOUNTER 2017-04-16 01:34 | Emergency (ER) | payer OTHER, MEDICARE ==
[2017-04-16 03:12] LABS: APPEARANCE,URINE CLEAR; BILIRUBIN,URINE NEGATIVE (NEGATIVE); GLUCOSE, URINE NEGATIVE (NEGATIVE); KETONES,URINE NEGATIVE (NEGATIVE); LEUKOCYTE ESTERASE,URINE NEGATIVE (NEGATIVE); NITRITE,URINE NEGATIVE (NEGATIVE); PROTEIN,URINE 30 mg/dL (NEGATIVE); URINE SPECIFIC GRAVITY 1.019; UROBILINOGEN,URINE NEGATIVE mg/dL (<2.0)
[2017-04-16] MEDS ORDERED: IPRATROPIUM/ALBUTEROL 0.5-2.5 MG/3 ML AMPUL NEB ONE (03:13)
--- NOTE | 2017-04-16 03:15 | ER Document Report ---
ED General - General Chief Complaint: Inability to Void Stated Complaint: UNABLE TO URINATE Time Seen by Provider: 04/16/17 02:20 Notes: Patient is a 61-year-old male that comes emergency department for chief complaint of burning with urination for the past 2 days. He denies rash, he states he is not sexually active, he denies discharge, fever, abdominal pain. He states he believes he does have a history of enlarged prostate. He also states that he has a irritated cough, he has asthma and he was to be checked for this. He also has a history of CHF. He denies chest pain, fever, abdominal pain, nausea or vomiting. TRAVEL OUTSIDE OF THE [place] IN LAST 30 DAYS: No - Related Data Allergies/Adverse Reactions: captopril [From Capoten] Allergy (Severe, Verified 03/19/17 15:52) Angioedema atorvastatin calcium [From Lipitor] Allergy (Intermediate, Verified 03/19/17 15: 52) Angioedema atorvastatin [From Lipitor] Allergy (Verified 03/19/17 15:52) clopidogrel [From Plavix] Allergy (Verified 03/19/17 15:52) rosuvastatin [From Crestor] Allergy (Verified 03/19/17 15:52) simvastatin [From Zocor] Allergy (Verified 03/19/17 15:52) Angioedema Past Medical History - General Information source: Patient - Social History Smoking Status: Former Smoker Frequency of alcohol use: None Drug Abuse: None Lives with: Alone Family History: Reviewed & Not Pertinent, CAD, DM, Hypertension, Thyroid Disfunction Patient has suicidal ideation: No Patient has homicidal ideation: No - Past Medical History Cardiac Medical History: Reports: Hx Congestive Heart Failure, Hx Coronary Artery Disease, Hx Heart Attack - 2009, Hx Hypercholesterolemia, Hx Hypertension Pulmonary Medical History: Reports: Hx Asthma, Hx Bronchitis, Hx COPD, Hx Sleep Apnea Neurological Medical History: Reports: Hx Cerebrovascular Accident - x 2. Denies: Hx Seizures Endocrine Medical History: Reports: Hx Diabetes Mellitus Type 1, Hx Diabetes Mellitus Type 2 Renal/ Medical History: Denies: Hx Peritoneal Dialysis Malignancy Medical History: GI Medical History: Reports: Hx Diverticulitis, Hx Gastroesophageal Reflux Disease Musculoskeltal Medical History: Reports Hx Arthritis, Reports Hx Musculoskeletal Deformity, Reports Hx Musculoskeletal Trauma Psychiatric Medical History: Reports: Hx Anxiety, Hx Post Traumatic Stress Disorder Denies: Hx Depression Infectious Medical History: Past Surgical History: Reports: Hx Abdominal Surgery - for diverticulitis, Hx Bowel Surgery - Colon resection due to diverticulitis, Hx Cardiac Catheterization, Hx Cardiac Surgery - 1984, ICD placement 2015, Hx Coronary Artery Bypass Graft, Hx Coronary Stent - 1984, Hx Thyroid Surgery, Other - AICD - Immunizations Immunizations up to date: Yes Hx Diphtheria, Pertussis, Tetanus Vaccination: Yes Hx Pneumococcal Vaccination: 05/26/10 Review of Systems - Review of Systems Constitutional: No symptoms reported EENT: No symptoms reported Cardiovascular: No symptoms reported Respiratory: See HPI Gastrointestinal: No symptoms reported Genitourinary: See HPI Male Genitourinary: No symptoms reported Musculoskeletal: No symptoms reported Skin: No symptoms reported Hematologic/Lymphatic: No symptoms reported Neurological/Psychological: No symptoms reported Physical Exam - Vital signs Vitals: Temp Pulse Resp BP Pulse Ox 97.3 F 97 16 131/94 H 98 04/16/17 01:38 04/16/17 01:38 04/16/17 01:38 04/16/17 01:38 04/16/17 01:38 Interpretation: Normal - General General appearance: Appears well, Alert In distress: None - HEENT Head: Normocephalic, Atraumatic Eyes: Normal Pupils: PERRL - Respiratory Respiratory status: No respiratory distress. No: Respiratory distress, Labored , Tachypnea Chest status: Nontender Breath sounds: Other - A few coarse breath sounds and mild expiratory wheeze, clear otherwise. No: Productive cough, Rales, Rhonchi, Stridor Chest palpation: Normal - Cardiovascular Rhythm: Regular Heart sounds: Normal auscultation Murmur: No - Abdominal Inspection: Normal Distension: No distension Bowel sounds: Normal Tenderness: Nontender. No: Tender, Guarding Organomegaly: No organomegaly - Genitourinary Inspection: Normal Tenderness: Nontender Cremasteric reflex: Normal. No: Right reflex absent, Left reflex absent Scrotum: Normal. No: Swelling, Redness, Hot to touch - Back Back: Normal, Nontender - Extremities General upper extremity: Normal inspection, Nontender, Normal color, Normal ROM , Normal temperature General lower extremity: Normal inspection, Nontender, Normal color, Normal ROM , Normal temperature, Normal weight bearing. No: Kadi's sign - Neurological Neuro grossly intact: Yes Cognition: Normal Orientation: AAOx4 [place] Coma Scale Eye Opening: Spontaneous [place] Coma Scale Verbal: Oriented Magalis Coma Scale Motor: Obeys Commands [place] Coma Scale Total: 15 Speech: Normal Motor strength normal: LUE, RUE, LLE, RLE Sensory: Normal - Psychological Associated symptoms: Normal affect, Normal mood - Skin Skin Temperature: Warm Skin Moisture: Dry Skin Color: Normal Course - Re-evaluation Re-evalutation: Patient stating he has some cough and congestion. He has a minimal wheeze on examination, this was treated with DuoNeb and resolved. Clear lungs otherwise. X-ray unremarkable. No fever, tachycardia, or concerning vital signs. Soft abdomen, no lower extremity swelling. Well-appearing patient. I did perform an ultrasound at bedside as, but does not show distended bladder, patient urinated and provided a sample without difficulty, urine is unremarkable. Patient is a poor historian, however he does know his medications and his doses. He tells me that he is out of his Lasix, only has 1 more dose and did not take it today. Given his daily medication dose of Lasix at 40 mg. He states he is out and he will not be able to fill it over the weekend with his provider, he was given a prescription for this as a result. Discussed workup, recommendations, follow-up, return precautions, patient states understanding and agreement. - Vital Signs Vital signs: Temp Pulse Resp BP Pulse Ox 97.6 F 97 17 126/76 H 96 04/16/17 05:40 04/16/17 05:40 04/16/17 05:40 04/16/17 05:40 04/16/17 05:40 - Laboratory Laboratory results interpreted by me: 04/16/17 02:35 Urine Protein 30 H Urine Ascorbic Acid 40 H Discharge - Discharge Clinical Impression: Cough, Urinary symptom or sign, Medication refill Condition: Stable Disposition: HOME, SELF-CARE Additional Instructions: Your chest x-ray does not show any concerning abnormalities. Your urine is clean and does not show any concerning findings. Take the Lasix prescribed, follow-up with your provider for additional management. Return to the emergency department for any concerning symptoms including difficulty breathing, fever, abdominal pain, vomiting, or any other concerning symptoms. Prescriptions: Furosemide [Lasix 20 mg Tablet] 40 mg PO QAM #60 tablet
--- NOTE | 2017-04-16 04:58 | RADIOLOGY REPORT (SQ) ---
EXAM DESCRIPTION: CHEST SINGLE VIEW COMPLETED DATE/TIME: 04/16/2017 4:25 am REASON FOR STUDY: worsening cough COMPARISON: 03/27/2017. EXAM PARAMETERS: NUMBER OF VIEWS: One view. TECHNIQUE: Single frontal radiographic view of the chest acquired. RADIATION DOSE: NA LIMITATIONS: None. FINDINGS: LUNGS AND PLEURA: No opacities, masses or pneumothorax. No pleural effusion. Moderate abhishek g volume. MEDIASTINUM AND HILAR STRUCTURES: No masses. Contour normal. HEART AND VASCULAR STRUCTURES: Moderate enlargement of the cardiac silhouette. BONES: No acute findings. HARDWARE: Left cardiac stimulation device and leads. Right nuchal clips. OTHER: No other significant finding. IMPRESSION: No acute cardiopulmonary findings. TECHNICAL DOCUMENTATION: JOB ID: [id number] [employer]- All Rights Reserved
[2017-04-16] MEDS ORDERED: FUROSEMIDE 40 MG TABLET PO ONE (05:14)
[2017-04-16 05:42] VITALS: BP 126/76
== END 2017-04-16 05:40 | disposition home or self-care (01) ==
LOC: ER 01:34
DX: R05 Cough (principal); R30.0 Dysuria; I50.9 Heart failure, unspecified; I25.10 Atherosclerotic heart disease of native coronary artery without angina pectoris; E78.00 Pure hypercholesterolemia, unspecified; I11.0 Hypertensive heart disease with heart failure; E11.9 Type 2 diabetes mellitus without complications; Z87.891 Personal history of nicotine dependence; I25.2 Old myocardial infarction; Z86.73 Personal history of transient ischemic attack (TIA), and cerebral infarction without residual deficits; Z95.2 Presence of prosthetic heart valve
CPT/HCPCS: 94640; 99283; 81001; 71010; J7620

== ENCOUNTER 2017-04-29 17:59 | Emergency (ER) | payer OTHER, MEDICARE ==
[2017-04-29] MEDS ORDERED: ASPIRIN 81 MG TABLET, CHEWABLE PO ONE (19:16)
--- NOTE | 2017-04-29 19:59 | ER Document Report ---
ED General - General Chief Complaint: Chest Pain Stated Complaint: CHEST PAIN Time Seen by Provider: 04/29/17 19:33 Notes: Patient is a 61-year-old male comes emergency department with several different complaints. He has a nonproductive cough, his throat hurts, and he has burning with urination. I asked if she has been hurting in his chest, initially he says yes and then he changed his mind and said no. He states his main complaint is burning with urination. He denies flank pain or abdominal pain. He denies fever. Past medical history of AR, CVA, diabetes, pacemaker. [facility]. TRAVEL OUTSIDE OF THE [place] IN LAST 30 DAYS: No - Related Data Allergies/Adverse Reactions: captopril [From Capoten] Allergy (Severe, Verified 04/29/17 18:49) Angioedema atorvastatin calcium [From Lipitor] Allergy (Intermediate, Verified 04/29/17 18: 49) Angioedema atorvastatin [From Lipitor] Allergy (Verified 04/29/17 18:49) clopidogrel [From Plavix] Allergy (Verified 04/29/17 18:49) rosuvastatin [From Crestor] Allergy (Verified 04/29/17 18:49) simvastatin [From Zocor] Allergy (Verified 04/29/17 18:49) Angioedema Past Medical History - General Information source: Patient - Social History Smoking Status: Never Smoker Chew tobacco use (# tins/day): No Frequency of alcohol use: None Drug Abuse: [place] Lives with: Alone Family History: Reviewed & Not Pertinent, CAD, DM, Hypertension, Thyroid Disfunction Patient has suicidal ideation: No Patient has homicidal ideation: No - Past Medical History Cardiac Medical History: Reports: Hx Congestive Heart Failure, Hx Coronary Artery Disease, Hx Heart Attack - 2009, Hx Hypercholesterolemia, Hx Hypertension Pulmonary Medical History: Reports: Hx Asthma, Hx Bronchitis, Hx COPD, Hx Sleep Apnea Neurological Medical History: Reports: Hx Cerebrovascular Accident - x 2. Denies: Hx Seizures Endocrine Medical History: Reports: Hx Diabetes Mellitus Type 1, Hx Diabetes Mellitus Type 2 Renal/ Medical History: Denies: Hx Peritoneal Dialysis Malignancy Medical History: GI Medical History: Reports: Hx Diverticulitis, Hx Gastroesophageal Reflux Disease Musculoskeltal Medical History: Reports Hx Arthritis, Reports Hx Musculoskeletal Deformity, Reports Hx Musculoskeletal Trauma Psychiatric Medical History: Reports: Hx Anxiety, Hx Post Traumatic Stress Disorder Denies: Hx Depression Infectious Medical History: Past Surgical History: Reports: Hx Abdominal Surgery - for diverticulitis, Hx Bowel Surgery - Colon resection due to diverticulitis, Hx Cardiac Catheterization, Hx Cardiac Surgery - 1984, ICD placement 2015, Hx Coronary Artery Bypass Graft, Hx Coronary Stent - 1984, Hx Thyroid Surgery, Other - AICD - Immunizations Immunizations up to date: Yes Hx Diphtheria, Pertussis, Tetanus Vaccination: Yes Hx Pneumococcal Vaccination: 05/26/10 Review of Systems - Review of Systems Constitutional: No symptoms reported EENT: No symptoms reported Cardiovascular: See HPI Respiratory: See HPI Gastrointestinal: No symptoms reported Genitourinary: See HPI Male Genitourinary: No symptoms reported Musculoskeletal: No symptoms reported Skin: No symptoms reported Hematologic/Lymphatic: No symptoms reported Neurological/Psychological: No symptoms reported Physical Exam - Vital signs Vitals: Temp Pulse Resp BP Pulse Ox 98.4 F 106 H 20 116/74 95 04/29/17 18:24 04/29/17 18:24 04/29/17 18:24 04/29/17 18:24 04/29/17 18:24 Interpretation: Normal - General General appearance: Appears well, Alert In distress: None - HEENT Head: Normocephalic, Atraumatic Eyes: Normal Pupils: PERRL - Respiratory Respiratory status: No respiratory distress Chest status: Nontender Breath sounds: Decreased air movement. No: Nonproductive cough, Productive cough, Rales, Rhonchi, Stridor, Wheezing Chest palpation: Normal - Cardiovascular Rhythm: Regular. No: Tachycardia Heart sounds: Normal auscultation, S1 appreciated, S2 appreciated Murmur: No - Abdominal Inspection: Normal Distension: No distension Bowel sounds: Normal Tenderness: Nontender. No: Tender Organomegaly: No organomegaly - Genitourinary Inspection: Normal. No: Blood at meatus, Penile discharge Tenderness: Nontender. No: Testicle tender, Epididymis tender Cremasteric reflex: Normal. No: Right reflex absent, Left reflex absent Scrotum: Normal. No: Swelling, Redness, Hot to touch - Back Back: Normal, Nontender - Extremities General upper extremity: Normal inspection, Nontender, Normal strength, Normal temperature General lower extremity: Normal inspection, Nontender, Normal strength, Normal temperature - Neurological Neuro grossly intact: Yes Cognition: Normal Orientation: AAOx4 Magalis Coma Scale Eye Opening: Spontaneous [place] Coma Scale Verbal: Oriented [place] Coma Scale Motor: Obeys Commands Magalis Coma Scale Total: 15 Speech: Normal Motor strength normal: LUE, RUE, LLE, RLE Sensory: Normal - Psychological Associated symptoms: Normal affect, Normal mood - Skin Skin Temperature: Warm Skin Moisture: Dry Skin Color: Normal Course - Re-evaluation Re-evalutation: Patient is well-known to this department and is seen here frequently with a variety of complaints. Because of his initial reported history of chest pain, rule out will be performed. On examination he is well-appearing, talkative, alert. He is a poor historian as always. His vital signs are unremarkable with no tachycardia, hypotension, hypertension, or hypoxia. No tachypnea on exam, no distress. EKG status sinus tachycardia with a rate of 102, flattened T waves in the lateral leads, no ST segment changes, no significant changes noted to prior. Initial troponin is 0.057, this is patient's baseline. Cycled and remains without significant change and at patient's baseline. Patient denying that he has had chest pain when he was reevaluated. Chest x-ray shows cardiomegaly without failure, no change from prior. CBC unremarkable, chemistry generally unremarkable, urinalysis unremarkable. Patient insists that the only reason he is here is because he has burning when he urinates. His genital exam is unremarkable. Urinalysis is also unremarkable. Patient asking for something for the discomfort. Eventually agreed to give him Pyridium, he is to use this only as needed. Patient is to follow-up with his primary provider, discussed return precautions including fever, chest pain, vomiting, etc. Patient states understanding and agreement. - Vital Signs Vital signs: Temp Pulse Resp BP Pulse Ox 98.4 F 106 H 20 121/69 98 04/29/17 18:24 04/29/17 18:24 04/29/17 23:00 04/29/17 23:00 04/29/17 23:00 - Laboratory Result Diagrams: 04/29/17 20:17 04/29/17 20:17 Laboratory results interpreted by me: 04/29/17 04/29/17 04/29/17 20:17 20:17 20:17 RDW 15.1 H BUN 23 H Est GFR (Non-Af Amer) 59 L Glucose 153 H Urine Protein 30 H Urine Ascorbic Acid 40 H Discharge - Discharge Clinical Impression: Dysuria, Cough Chest pain Qualifiers: Chest pain type: unspecified Qualified Code(s): R07.9 - Chest pain, unspecified Condition: Stable Disposition: HOME, SELF-CARE Additional Instructions: Take the medication given by prescription if needed for burning with urination. No infection is seen on your workup. Follow-up with your provider for additional evaluation and treatment. Return immediately if he develop any concerning or worsening symptoms including pain in her chest, fever, vomiting, difficulty breathing, or any other concerning symptoms. Prescriptions: Phenazopyridine HCl [Pyridium 100 Mg Tablet] 100 mg PO TID PRN #12 tablet PRN Reason:
--- NOTE | 2017-04-29 20:13 | RADIOLOGY REPORT (SQ) ---
EXAM DESCRIPTION: CHEST SINGLE VIEW COMPLETED DATE/TIME: 04/29/2017 7:38 pm REASON FOR STUDY: cp COMPARISON: 04/16/2017 EXAM PARAMETERS: NUMBER OF VIEWS: One view. TECHNIQUE: Single frontal radiographic view of the chest acquired. RADIATION DOSE: NA LIMITATIONS: None. FINDINGS: LUNGS AND PLEURA: No opacities, masses or pneumothorax. No pleural effusion. MEDIASTINUM AND HILAR STRUCTURES: No masses. Contour normal. HEART AND VASCULAR STRUCTURES: Cardiac silhouette remains enlarged and is unchanged in configuration BONES: No acute findings. HARDWARE: AICD device is unchanged in position. OTHER: No other significant finding. IMPRESSION: No significant interval change. No acute findings. Other findings as noted above TECHNICAL DOCUMENTATION: JOB ID: [id number] [employer]- All Rights Reserved
[2017-04-29 20:36] LABS: APPEARANCE,URINE CLEAR; BILIRUBIN,URINE NEGATIVE (NEGATIVE); GLUCOSE, URINE NEGATIVE (NEGATIVE); KETONES,URINE NEGATIVE (NEGATIVE); LEUKOCYTE ESTERASE,URINE NEGATIVE (NEGATIVE); NITRITE,URINE NEGATIVE (NEGATIVE); PROTEIN,URINE 30 mg/dL (NEGATIVE); URINE SPECIFIC GRAVITY 1.017; UROBILINOGEN,URINE NEGATIVE mg/dL (<2.0)
[2017-04-29 20:45] LABS: ABSOLUTE BASOPHILS # (AUTO) 0.1 10^3/uL (0.0-0.2); ABSOLUTE EOSINOPHILS # (AUTO) 0.2 10^3/uL (0.0-0.6); ABSOLUTE LYMPHOCYTES (AUTO) 1.9 10^3/uL (0.5-4.7); ABSOLUTE MONOCYTES (AUTO) 0.9 10^3/uL (0.1-1.4); ABSOLUTE NEUT (AUTO) 4.9 10^3/uL (1.7-8.2); BASOPHILS % (AUTO) 0.9 % (0-2); EOSINOPHILS % (AUTO) 1.9 % (0-6); HEMOGLOBIN 14.4 g/dL (13.5-17.0); HGB HCT DIFFERENCE 1.2; LYMPHOCYTES % (AUTO) 23.7 % (13-45); MEAN CORPUSCULAR HEMOGLOBIN 29.1 pg (27.0-33.4); MEAN CORPUSCULAR HGB CONC 34.3 g/dL (32.0-36.0); MEAN CORPUSCULAR VOLUME 85 fl (80-97); MONOCYTES % (AUTO) 11.9 % (3-13); RED BLOOD COUNT 4.96 10^6/uL (4.35-5.55); RED CELL DISTRIBUTION WIDTH 15.1 % (11.5-14.0); SEGMENTED NEUTROPHILS % (AUTO) 61.6 % (42-78)
[2017-04-29 20:49] LABS: ALANINE AMINOTRANSFERASE 24 U/L (21-72); ALBUMIN 4.2 g/dL (3.5-5.0); ALKALINE PHOSPHATASE 71 U/L (38-126); ANION GAP 14 (5-19); ASPARTATE AMINO TRANSFERASE 21 U/L (17-59); BILIRUBIN,DIRECT 0.3 mg/dL (0.0-0.4); BILIRUBIN,TOTAL 0.4 mg/dL (0.2-1.3); BLOOD UREA NITROGEN 23 mg/dL (7-20); CALCIUM 8.9 mg/dL (8.4-10.2); CARBON DIOXIDE 26 mmol/L (22-30); CHLORIDE 103 mmol/L (98-107); CREATINE KINASE 124 U/L (55-170); CREATININE RESULT 1.24 mg/dL (0.52-1.25); GLUCOSE 153 mg/dL (75-110); POTASSIUM 4.6 mmol/L (3.6-5.0); SODIUM 142.7 mmol/L (137-145); TOTAL PROTEIN 6.6 g/dL (6.3-8.2)
[2017-04-29 21:01] LABS: CREATINE KINASE MB 2.19 ng/mL (<4.55)
[2017-04-29 21:04] LABS: TROPONIN I 0.057 ng/mL
--- NOTE | 2017-04-29 21:38 | EKG REPORT ---
SEVERITY:- BORDERLINE ECG - SINUS TACHYCARDIA BORDERLINE T WAVE ABNORMALITIES : Confirmed by: Pooja Patel 29-Apr-2017 21:37:21
[2017-04-29] MEDS ORDERED: PHENAZOPYRIDINE HCL 100 MG TABLET PO ONE (22:55)
[2017-04-29 23:31] VITALS: BP 121/69
== END 2017-04-29 23:31 | disposition home or self-care (01) ==
LOC: ER 17:59
DX: R30.0 Dysuria (principal); R07.9 Chest pain, unspecified; R05 Cough; I50.9 Heart failure, unspecified; I25.10 Atherosclerotic heart disease of native coronary artery without angina pectoris; E78.00 Pure hypercholesterolemia, unspecified; I11.0 Hypertensive heart disease with heart failure; E11.9 Type 2 diabetes mellitus without complications; I25.2 Old myocardial infarction; Z86.73 Personal history of transient ischemic attack (TIA), and cerebral infarction without residual deficits; Z95.1 Presence of aortocoronary bypass graft
CPT/HCPCS: 93005; 99285; 36415; 82553; 82550; 85025; 80053; 81001; 84484; 71010; 93010; J3490

== ENCOUNTER 2017-05-11 22:37 | Emergency (ER) | payer OTHER, MEDICARE ==
--- NOTE | 2017-05-11 23:43 | EKG REPORT ---
SEVERITY:- BORDERLINE ECG - SINUS RHYTHM BORDERLINE T ABNORMALITIES, INFERIOR LEADS BORDERLINE PROLONGED QT INTERVAL : Confirmed by: Pooja Patel 11-May-2017 23:42:16
[2017-05-12 00:44] LABS: ABSOLUTE EOSINOPHILS # (AUTO) 0.2 10^3/uL (0.0-0.6); ABSOLUTE LYMPHOCYTES (AUTO) 1.7 10^3/uL (0.5-4.7); ABSOLUTE MONOCYTES (AUTO) 0.9 10^3/uL (0.1-1.4); ABSOLUTE NEUT (AUTO) 4.7 10^3/uL (1.7-8.2); BASOPHILS % (AUTO) 0.6 % (0-2); EOSINOPHILS % (AUTO) 2.4 % (0-6); HEMATOCRIT 40.2 % (37.9-51.0); HEMOGLOBIN 13.8 g/dL (13.5-17.0); HGB HCT DIFFERENCE 1.2; LYMPHOCYTES % (AUTO) 22.9 % (13-45); MEAN CORPUSCULAR HEMOGLOBIN 28.7 pg (27.0-33.4); MEAN CORPUSCULAR HGB CONC 34.4 g/dL (32.0-36.0); MEAN CORPUSCULAR VOLUME 84 fl (80-97); MONOCYTES % (AUTO) 11.6 % (3-13); RED CELL DISTRIBUTION WIDTH 14.9 % (11.5-14.0); SEGMENTED NEUTROPHILS % (AUTO) 62.5 % (42-78); WHITE BLOOD COUNT 7.5 10^3/uL (4.0-10.5)
[2017-05-12 01:03] LABS: ALANINE AMINOTRANSFERASE 32 U/L (21-72); ALBUMIN 3.8 g/dL (3.5-5.0); ALKALINE PHOSPHATASE 75 U/L (38-126); ANION GAP 10 (5-19); ASPARTATE AMINO TRANSFERASE 22 U/L (17-59); BILIRUBIN,DIRECT 0.2 mg/dL (0.0-0.4); BILIRUBIN,TOTAL 0.2 mg/dL (0.2-1.3); BLOOD UREA NITROGEN 27 mg/dL (7-20); CALCIUM 9.2 mg/dL (8.4-10.2); CARBON DIOXIDE 30 mmol/L (22-30); CHLORIDE 100 mmol/L (98-107); CREATININE RESULT 1.22 mg/dL (0.52-1.25); GLUCOSE 161 mg/dL (75-110); POTASSIUM 4.6 mmol/L (3.6-5.0); SODIUM 139.6 mmol/L (137-145); TOTAL PROTEIN 6.4 g/dL (6.3-8.2)
--- NOTE | 2017-05-12 01:03 | ER Document Report ---
ED General - General Chief Complaint: Leg Pain Stated Complaint: LEG SWELLING Time Seen by Provider: 05/11/17 23:25 Notes: 61 years old male well known to the ED, presents with saying that he wants an EKG and he wants to check his heart. And also complained that he had swelling of the lower extremity. Very difficult historian words are very difficult to understand. Could not get any more history from him. TRAVEL OUTSIDE OF THE [place] IN LAST 30 DAYS: No - Related Data Allergies/Adverse Reactions: captopril [From Capoten] Allergy (Severe, Verified 05/11/17 23:02) Angioedema atorvastatin calcium [From Lipitor] Allergy (Intermediate, Verified 05/11/17 23: 02) Angioedema atorvastatin [From Lipitor] Allergy (Verified 05/11/17 23:02) clopidogrel [From Plavix] Allergy (Verified 05/11/17 23:02) rosuvastatin [From Crestor] Allergy (Verified 05/11/17 23:02) simvastatin [From Zocor] Allergy (Verified 05/11/17 23:02) Angioedema Past Medical History - Social History Smoking Status: Unknown if Ever Smoked Frequency of alcohol use: None Drug Abuse: None Family History: Reviewed & Not Pertinent, CAD, DM, Hypertension, Thyroid Disfunction Patient has suicidal ideation: No Patient has homicidal ideation: No - Past Medical History Cardiac Medical History: Reports: Hx Congestive Heart Failure, Hx Coronary Artery Disease, Hx Heart Attack - 2008, Hx Hypercholesterolemia, Hx Hypertension Pulmonary Medical History: Reports: Hx Asthma, Hx Bronchitis, Hx COPD, Hx Sleep Apnea Neurological Medical History: Reports: Hx Cerebrovascular Accident - x 2. Denies: Hx Seizures Endocrine Medical History: Reports: Hx Diabetes Mellitus Type 1, Hx Diabetes Mellitus Type 2 Renal/ Medical History: Denies: Hx Peritoneal Dialysis Malignancy Medical History: GI Medical History: Reports: Hx Diverticulitis, Hx Gastroesophageal Reflux Disease Musculoskeltal Medical History: Reports Hx Arthritis, Reports Hx Musculoskeletal Deformity, Reports Hx Musculoskeletal Trauma Psychiatric Medical History: Reports: Hx Anxiety, Hx Post Traumatic Stress Disorder Denies: Hx Depression Infectious Medical History: Past Surgical History: Reports: Hx Abdominal Surgery - for diverticulitis, Hx Bowel Surgery - Colon resection due to diverticulitis, Hx Cardiac Catheterization, Hx Cardiac Surgery - 1984, ICD placement 2015, Hx Coronary Artery Bypass Graft, Hx Coronary Stent - 1984, Hx Thyroid Surgery, Other - AICD - Immunizations Immunizations up to date: Yes Hx Diphtheria, Pertussis, Tetanus Vaccination: Yes Hx Pneumococcal Vaccination: 05/26/10 Review of Systems - Review of Systems Notes: Review of system not possible to obtain. ALL OTHER SYSTEMS REVIEWED AND NEGATIVE. Dictation was performed using [employer] voice recognition software PHYSICAL EXAMINATION: GENERAL: Obese HEAD: Atraumatic, normocephalic. EYES: Pupils equal round and reactive to light, extraocular movements intact, sclera anicteric, conjunctiva are normal. ENT: Nares patent, oropharynx clear without exudates. Moist mucous membranes. NECK: Normal range of motion, supple without lymphadenopathy LUNGS: Breath sounds clear to auscultation bilaterally and equal. No wheezes rales or rhonchi. HEART: Regular rate and rhythm without murmurs ABDOMEN: Soft, nontender, nondistended abdomen. No guarding, no rebound. No masses appreciated. Musculoskeletal: No edema or swelling noted to lower extremities NEUROLOGICAL: Cranial nerves grossly intact. Normal speech, normal gait. Normal sensory, motor exams PSYCH: Normal mood, normal affect. SKIN: Warm, Dry, normal turgor, no rashes or lesions noted. -: Yes ROS unobtainable due to patient's medical condition Physical Exam - Vital signs Vitals: Temp Pulse Resp BP Pulse Ox 98.0 F 95 20 127/89 H 97 05/11/17 22:57 05/11/17 22:57 05/11/17 22:57 05/11/17 22:57 05/11/17 22:57 Course - Re-evaluation Re-evalutation: 05/12/17 01:31 All lab results came back normal. He is being discharged home - Vital Signs Vital signs: Temp Pulse Resp BP Pulse Ox 98.0 F 95 20 127/89 H 97 05/11/17 22:57 05/11/17 22:57 05/11/17 22:57 05/11/17 22:57 05/11/17 22:57 - Laboratory Result Diagrams: 05/12/17 00:25 05/12/17 00:25 Laboratory results interpreted by me: 05/12/17 05/12/17 00:25 00:25 RDW 14.9 H BUN 27 H Glucose 161 H - EKG Interpretation by Me EKG shows normal: Sinus rhythm - Sinus rhythm at the rate of 95 bpm normal axis no acute ST elevation ST depression T-wave inversion noted. Discharge - Discharge Clinical Impression: Chest pain of uncertain etiology Condition: Fair Disposition: HOME, SELF-CARE Instructions: Chest Wall Pain ([facility])
[2017-05-12 01:26] LABS: TROPONIN I 0.069 ng/mL
[2017-05-12 02:25] VITALS: BP 107/70
== END 2017-05-12 02:26 | disposition home or self-care (01) ==
LOC: ER 22:37
DX: R07.9 Chest pain, unspecified (principal); M79.89 Other specified soft tissue disorders
CPT/HCPCS: 36415; 80053; 83880; 84484; 85025; 93005; 93010; 99283

== ENCOUNTER 2017-05-12 05:22 | Emergency (ER) | payer OTHER, MEDICARE ==
[2017-05-12] MEDS ORDERED: IBUPROFEN 600 MG TABLET PO ONE (06:59)
[2017-05-12] MEDS ORDERED: METOCLOPRAMIDE HCL 10 MG TABLET PO ONE (06:59)
--- NOTE | 2017-05-12 08:20 | ER Document Report ---
ED General - General Chief Complaint: Nausea/Vomiting Stated Complaint: VOMITING FEVER Time Seen by Provider: 05/12/17 06:59 TRAVEL OUTSIDE OF THE [place] IN LAST 30 DAYS: No - HPI Patient complains to provider of: Nausea vomiting fever Notes: Patient coming in this morning for evaluation of nausea vomiting fever. Patient states he was discharged from the ER yesterday for evaluation of chest pain patient states once arriving home and had a fever and started having nausea and vomiting. Upon my evaluation patient sleeping easily arousable. Patient states he does otherwise does not feel well denies any specific complaints. Patient states he has vomited approximately 10 times throughout the night. Denies any blood hematemesis diarrhea abdominal pain chest pain chills night sweats - Related Data Allergies/Adverse Reactions: captopril [From Capoten] Allergy (Severe, Verified 05/11/17 23:02) Angioedema atorvastatin calcium [From Lipitor] Allergy (Intermediate, Verified 05/11/17 23: 02) Angioedema atorvastatin [From Lipitor] Allergy (Verified 05/11/17 23:02) clopidogrel [From Plavix] Allergy (Verified 05/11/17 23:02) rosuvastatin [From Crestor] Allergy (Verified 05/11/17 23:02) simvastatin [From Zocor] Allergy (Verified 05/11/17 23:02) Angioedema Past Medical History - Social History Smoking Status: Former Smoker Chew tobacco use (# tins/day): No Frequency of alcohol use: Rare Drug Abuse: None Family History: Reviewed & Not Pertinent, CAD, DM, Hypertension, Thyroid Disfunction Patient has suicidal ideation: No Patient has homicidal ideation: No - Past Medical History Cardiac Medical History: Reports: Hx Congestive Heart Failure, Hx Coronary Artery Disease, Hx Heart Attack - 2009, Hx Hypercholesterolemia, Hx Hypertension Pulmonary Medical History: Reports: Hx Asthma, Hx Bronchitis, Hx COPD, Hx Sleep Apnea Neurological Medical History: Reports: Hx Cerebrovascular Accident - x 2. Denies: Hx Seizures Endocrine Medical History: Reports: Hx Diabetes Mellitus Type 1, Hx Diabetes Mellitus Type 2 Renal/ Medical History: Denies: Hx Peritoneal Dialysis Malignancy Medical History: GI Medical History: Reports: Hx Diverticulitis, Hx Gastroesophageal Reflux Disease Musculoskeltal Medical History: Reports Hx Arthritis, Reports Hx Musculoskeletal Deformity, Reports Hx Musculoskeletal Trauma Psychiatric Medical History: Reports: Hx Anxiety, Hx Post Traumatic Stress Disorder Denies: Hx Depression Infectious Medical History: Past Surgical History: Reports: Hx Abdominal Surgery - for diverticulitis, Hx Bowel Surgery - Colon resection due to diverticulitis, Hx Cardiac Catheterization, Hx Cardiac Surgery - 1984, ICD placement 2015, Hx Coronary Artery Bypass Graft, Hx Coronary Stent - 1984, Hx Thyroid Surgery, Other - AICD - Immunizations Immunizations up to date: Yes Hx Diphtheria, Pertussis, Tetanus Vaccination: Yes Hx Pneumococcal Vaccination: 05/26/10 Review of Systems - Review of Systems Constitutional: No symptoms reported EENT: No symptoms reported Cardiovascular: No symptoms reported Respiratory: No symptoms reported Gastrointestinal: Nausea, Vomiting Genitourinary: No symptoms reported Male Genitourinary: No symptoms reported Musculoskeletal: No symptoms reported Skin: No symptoms reported Hematologic/Lymphatic: No symptoms reported Neurological/Psychological: No symptoms reported -: Yes All other systems reviewed and negative Physical Exam - Vital signs Vitals: Temp Pulse Resp BP Pulse Ox 97.8 F 100 18 117/77 97 05/12/17 05:29 05/12/17 05:29 05/12/17 05:29 05/12/17 05:29 05/12/17 05:29 Interpretation: Normal - General General appearance: Appears well, Alert - HEENT Head: Normocephalic, Atraumatic Eyes: Normal Pupils: PERRL - Respiratory Respiratory status: No respiratory distress Chest status: Nontender Breath sounds: Normal Chest palpation: Normal - Cardiovascular Rhythm: Regular Heart sounds: Normal auscultation Murmur: No - Abdominal Inspection: Normal Distension: No distension Bowel sounds: Normal Tenderness: Nontender Organomegaly: No organomegaly - Back Back: Normal, Nontender - Extremities General upper extremity: Normal inspection, Nontender, Normal color, Normal ROM , Normal temperature General lower extremity: Normal inspection, Nontender, Normal color, Normal ROM , Normal temperature, Normal weight bearing. No: Kadi's sign - Neurological Neuro grossly intact: Yes Cognition: Normal Orientation: AAOx4 [place] Coma Scale Eye Opening: Spontaneous [place] Coma Scale Verbal: Oriented [place] Coma Scale Motor: Obeys Commands Magalis Coma Scale Total: 15 Speech: Normal Motor strength normal: LUE, RUE, LLE, RLE Sensory: Normal - Psychological Associated symptoms: Normal affect, Normal mood - Skin Skin Temperature: Warm Skin Moisture: Dry Skin Color: Normal Course - Re-evaluation Re-evalutation: 05/12/17 08:48 Patient was given Reglan and was able to tolerate p.o. here drinking entire serum is. No vomiting afterwards. Patient was reevaluated and found to be sleeping easily arousable. Patient notes that he feels better will discharge patient home with a prescription for Reglan. The patient presents with nausea vomiting without signs of peritonitis or other life-threatening or serious etiology. The patient appears stable for discharge and has been instructed to return immediately if the symptoms worsen in any way, or in 8-12hr if not improved for re-evaluation. The patient has been instructed to return if the symptoms worsen or change in any way. - Vital Signs Vital signs: Temp Pulse Resp BP Pulse Ox 97.8 F 100 18 117/77 97 05/12/17 05:29 05/12/17 05:29 05/12/17 05:29 05/12/17 05:29 05/12/17 05:29 Discharge - Discharge Clinical Impression: Nausea & vomiting Qualifiers: Vomiting type: unspecified Vomiting Intractability: unspecified Qualified Code( s): R11.2 - Nausea with vomiting, unspecified Condition: Good Disposition: HOME, SELF-CARE Instructions: Nausea or Vomiting, Nonspecific ([facility]) Additional Instructions: More likely contracted a viral illness causing her nausea and vomiting. Please take medication as prescribed. Follow-up with your primary care physician in next 2-3 days if symptoms continue return to the ER symptoms worsen. Prescriptions: Metoclopramide HCl [Reglan] 5 mg PO Q6 #14 tablet
[2017-05-12 08:48] VITALS: BP 100/64
== END 2017-05-12 08:48 | disposition home or self-care (01) ==
LOC: ER 05:22
DX: R11.2 Nausea with vomiting, unspecified (principal); R50.9 Fever, unspecified; I25.10 Atherosclerotic heart disease of native coronary artery without angina pectoris; I25.2 Old myocardial infarction; I10 Essential (primary) hypertension; J44.9 Chronic obstructive pulmonary disease, unspecified; Z88.8 Allergy status to other drugs, medicaments and biological substances; Z87.891 Personal history of nicotine dependence; Z87.19 Personal history of other diseases of the digestive system; Z90.49 Acquired absence of other specified parts of digestive tract; Z95.810 Presence of automatic (implantable) cardiac defibrillator; Z95.5 Presence of coronary angioplasty implant and graft; Z95.1 Presence of aortocoronary bypass graft
CPT/HCPCS: 99284

== ENCOUNTER → 2017-05-14 | Outpatient (CLI) | payer OTHER, MEDICARE ==
[2017-05-16 10:29] LABS: PROSTATE SPECIFIC ANTIGEN 0.9 ng/mL (0.0-4.0); PSA % FREE 41.1 % (.); PSA FREE 0.37 ng/mL
== END ==
LOC: LAB 16:46
PROVIDERS: ATTEND Urology
DX: N41.1 Chronic prostatitis (principal); I51.9 Heart disease, unspecified; E13.9 Other specified diabetes mellitus without complications; I10 Essential (primary) hypertension
CPT/HCPCS: 36415; 84153; 84154

== ENCOUNTER 2017-05-29 23:35 | Emergency (ER) | payer MEDICARE ==
[2017-05-30] MEDS ORDERED: ALBUTEROL SULFATE 0.083% NEB 2.5 MG/3 ML AMPUL NEB ONE (00:05)
--- NOTE | 2017-05-30 00:10 | ER Document Report ---
ED General - General Chief Complaint: Chest Pain Stated Complaint: CHEST PAIN, SHORTNESS OF BREATH Time Seen by Provider: 05/30/17 00:02 Notes: Patient is a 61-year-old male who is very well-known to our ER who presents with complaint of cough congestion and body aches. In the chief complaint he also chest pain be says his chest pains when he coughs. He does have a history of coronary disease. He denies vomiting. No diarrhea. No abdominal pain. No chest pain when he is not coughing. He does have a history of asthma as well as CHF. No other complaints at this time. TRAVEL OUTSIDE OF THE [place] IN LAST 30 DAYS: No - Related Data Allergies/Adverse Reactions: captopril [From Capoten] Allergy (Severe, Verified 05/11/17 23:02) Angioedema atorvastatin calcium [From Lipitor] Allergy (Intermediate, Verified 05/11/17 23: 02) Angioedema atorvastatin [From Lipitor] Allergy (Verified 05/11/17 23:02) clopidogrel [From Plavix] Allergy (Verified 05/11/17 23:02) rosuvastatin [From Crestor] Allergy (Verified 05/11/17 23:02) simvastatin [From Zocor] Allergy (Verified 05/11/17 23:02) Angioedema Past Medical History - Social History Smoking Status: Unknown if Ever Smoked Frequency of alcohol use: None Drug Abuse: None Family History: Reviewed & Not Pertinent, CAD, DM, Hypertension, Thyroid Disfunction - Past Medical History Cardiac Medical History: Reports: Hx Congestive Heart Failure, Hx Coronary Artery Disease, Hx Heart Attack - 2009, Hx Hypercholesterolemia, Hx Hypertension Pulmonary Medical History: Reports: Hx Asthma, Hx Bronchitis, Hx COPD, Hx Sleep Apnea Neurological Medical History: Reports: Hx Cerebrovascular Accident - x 2. Denies: Hx Seizures Endocrine Medical History: Reports: Hx Diabetes Mellitus Type 1, Hx Diabetes Mellitus Type 2 Renal/ Medical History: Denies: Hx Peritoneal Dialysis Malignancy Medical History: GI Medical History: Reports: Hx Diverticulitis, Hx Gastroesophageal Reflux Disease Musculoskeltal Medical History: Reports Hx Arthritis, Reports Hx Musculoskeletal Deformity, Reports Hx Musculoskeletal Trauma Psychiatric Medical History: Reports: Hx Anxiety, Hx Post Traumatic Stress Disorder Denies: Hx Depression Infectious Medical History: Past Surgical History: Reports: Hx Abdominal Surgery - for diverticulitis, Hx Bowel Surgery - Colon resection due to diverticulitis, Hx Cardiac Catheterization, Hx Cardiac Surgery - 1984, ICD placement 2015, Hx Coronary Artery Bypass Graft, Hx Coronary Stent - 1984, Hx Thyroid Surgery, Other - AICD - Immunizations Immunizations up to date: Yes Hx Diphtheria, Pertussis, Tetanus Vaccination: Yes Hx Pneumococcal Vaccination: 05/26/10 Review of Systems - Review of Systems Notes: My Normal Review Basic REVIEW OF SYSTEMS: CONSTITUTIONAL : Chills. EENT: Denies eye, ear, throat, or mouth pain or symptoms. Denies nasal or sinus congestion. CARDIOVASCULAR: Chest pain with cough. RESPIRATORY: Cough and difficulty breathing. GASTROINTESTINAL: Denies abdominal pain. Denies nausea, vomiting, or diarrhea. MUSCULOSKELETAL: Denies neck or back pain or joint pain or swelling. SKIN: Denies rash or skin lesions. NEUROLOGICAL: Denies altered mental status or loss of consciousness. Denies headache. Denies weakness or paralysis or loss of use of either side. Denies problems with gait or speech. Denies sensory or motor loss. ALL OTHER SYSTEMS REVIEWED AND NEGATIVE. Physical Exam - Vital signs Vitals: Temp Pulse Resp BP Pulse Ox 97.9 F 97 20 117/68 96 05/29/17 23:56 05/29/17 23:56 05/29/17 23:56 05/29/17 23:56 05/29/17 23:56 - Notes Notes: General Appearance: Well nourished, alert, cooperative, no acute distress, no obvious discomfort. Well-appearing. I walk into the room patient is actually sleeping in his breathing is completely normal. When I will wake him up he starts to make a noise with his mouth every time he breathes. He says he short of breath even though he does not appear to be short of breath. Vitals: reviewed, See vital signs table. Head: no swelling or tenderness to the head Eyes: PERRL, EOMI, Conjuctiva clear Throat: No pharyngeal inflammation or swelling. Mouth: No decreasd moisture Lungs: slight wheezing, No rales, No rhonci, No accessory muscle use, good air exchange bilaterally. Heart: Normal rate, Regular rythm, No murmur, no rub Abdomen: Normal BS, soft, No rigidity, No abdominal tenderness, No guarding, no rebound, Extremities: strength 5/5 in all extremities, good pulses in all extremities, no swelling or tenderness in the extremities, trace bilateral lower extremity edema. Skin: warm, dry, appropriate color, no rash Neuro: speech clear, oriented x 3, normal affect, responds appropriately to questions. Course - Re-evaluation Re-evalutation: 05/30/17 06:57 Patient is feeling much improved. Patient looks well. Feel patient is safe to be discharged home. Evaluation patient sleeping resting comfortably. He has no tachypnea, no increased work of breathing. No tachycardia. When I listen to his lungs are completely clear. When I wake up the patient and listen to his lungs again he is making noises with his mouth but he still is "clear lung salazar. This is very typical for him as of taking care of many times in the past and he typically will make sounds with this mouth when taking deep breaths. I will give the patient a albuterol inhaler to use as needed at home. I do not suspect coronary disease and that the only chest pain the patient has is when he coughs. EKG does not show any concerning findings. Dictation of this chart was performed using voice recognition software; therefore, there may be some unintended grammatical errors. - Vital Signs Vital signs: Temp Pulse Resp BP Pulse Ox 98.7 F 66 18 120/68 98 05/30/17 01:19 05/30/17 01:19 05/30/17 01:19 05/30/17 01:19 05/30/17 01:19 - EKG Interpretation by Me Additional EKG results interpreted by me: 05/30/17 00:06 EKG is reviewed and interpreted by me. EKG shows normal sinus rhythm with a rate of [address] segment elevation or depression. No ischemic T-wave inversions. [place] interval and QTc intervals are within normal range. QRS duration is slightly prolonged. Old EKG for comparison is from May 11, 2017. There is no concerning changes comparison to the old EKG. Discharge - Discharge Clinical Impression: Bronchitis Condition: Good Disposition: HOME, SELF-CARE Additional Instructions: BRONCHITIS: You have acute bronchitis. This disease is an infection or inflammation of the air passageways in your lungs. Symptoms usually include cough, low grade fever, shortness of breath, and wheezing. The cough usually persists for a couple of weeks. Most cases of bronchitis get better without antibiotics. We prescribe antibiotics when we believe bacteria are damaging your airways, or if there's high risk the bronchitis will worsen into pneumonia. Increase your fluid intake. A cool mist humidifier may make your lungs more comfortable. An expectorant (cough medicine that loosens phlegm) can help. If you smoke, STOP!!! Recovery from bronchitis can be somewhat slow, but you should see improvement within a day or two. Repeated episodes of bronchitis may result in lung damage -- for example, chronic bronchitis, recurrent pneumonias, or emphysema. Call the doctor if you develop increasing fever, shortness of breath, chest pain, bloody sputum, or otherwise worsen. If you have not improved at all after several days, contact the physician. INHALED BRONCHODILATORS: You have received a treatment of and/or prescription for an inhaled bronchodilator -- a medication which stimulates the airways in the lung to dilate. This improves the flow of air in asthma, bronchitis, and emphysema. These medicines have some similarity to adrenaline, and can cause similar side effects: shakiness, racing heart, and a sense of nervousness. These side effects decrease with time. Contact your doctor if these side effects are severe. Do not over-use the medicine. Too-frequent use of the inhaler may make it ineffective. Call your doctor if the inhaler is not controlling your symptoms at the prescribed doses. SMOKING: If you smoke, you should stop smoking. The tar and chemicals in cigarette smoke are harmful. Smoking has been shown to cause: emphysema chronic bronchitis lung cancer mouth and throat cancer stomach and pancreas cancer premature aging defects In addition, smoking increases ear and lung infections in children of smokers. FOLLOW-UP CARE: If you have been referred to a physician for follow-up care, call the physician s office for an appointment as you were instructed or within the next two days. If you experience worsening or a significant change in your symptoms, notify the physician immediately or return to the Emergency Department at any time for re-evaluation. Please use the inhaler as 1 puff every 2 hours for cough or wheezing. please return to the ER immediately if you have fevers, vomiting, or feel unwell.
--- NOTE | 2017-05-30 00:46 | RADIOLOGY REPORT (SQ) ---
EXAM DESCRIPTION: CHEST SINGLE VIEW CLINICAL HISTORY: 61 years, Male, cough, chills COMPARISON: 04/29/2017. LIMITATIONS: None. FINDINGS: Low-moderate lung volume, moderate enlargement of the cardiac silhouette, left cardiac stimulation device and leads, right nuchal clips. IMPRESSION: Low-moderate lung volume. 2011 [facility] [employer]- All Rights Reserved
[2017-05-30] MEDS ORDERED: ALBUTEROL SULFATE HFA (90 MCG/PUFF) 8 GM MDI (1 MDI/ER DISP) IH ONE (01:07)
[2017-05-30 01:20] VITALS: BP 120/68
--- NOTE | 2017-05-30 09:18 | EKG REPORT ---
SEVERITY:- ABNORMAL ECG - SINUS RHYTHM NONSPECIFIC INTRAVENTRICULAR CONDUCTION DELAY : Confirmed by: Pooja Patel 30-May-2017 09:18:19
== END 2017-05-30 02:45 | disposition home or self-care (01) ==
LOC: ER 23:35
DX: J44.9 Chronic obstructive pulmonary disease, unspecified (principal); R05 Cough; R07.89 Other chest pain; R68.83 Chills (without fever); I25.10 Atherosclerotic heart disease of native coronary artery without angina pectoris; I10 Essential (primary) hypertension; E11.9 Type 2 diabetes mellitus without complications; Z88.8 Allergy status to other drugs, medicaments and biological substances; Z82.49 Family history of ischemic heart disease and other diseases of the circulatory system; Z86.73 Personal history of transient ischemic attack (TIA), and cerebral infarction without residual deficits; Z95.5 Presence of coronary angioplasty implant and graft; Z95.1 Presence of aortocoronary bypass graft; Z95.810 Presence of automatic (implantable) cardiac defibrillator
CPT/HCPCS: 93005; 94640; 99285; 71045; 93010; A9270; J3490

== ENCOUNTER 2017-06-01 07:45 | Emergency (ER) | payer MEDICARE ==
[2017-06-01 08:24] LABS: ABSOLUTE BASOPHILS # (AUTO) 0.1 10^3/uL (0.0-0.2); ABSOLUTE EOSINOPHILS # (AUTO) 0.2 10^3/uL (0.0-0.6); ABSOLUTE LYMPHOCYTES (AUTO) 1.5 10^3/uL (0.5-4.7); ABSOLUTE MONOCYTES (AUTO) 1.1 10^3/uL (0.1-1.4); ABSOLUTE NEUT (AUTO) 5.6 10^3/uL (1.7-8.2); BASOPHILS % (AUTO) 0.7 % (0-2); EOSINOPHILS % (AUTO) 2.5 % (0-6); HEMATOCRIT 41.6 % (37.9-51.0); HEMOGLOBIN 14.3 g/dL (13.5-17.0); LYMPHOCYTES % (AUTO) 17.2 % (13-45); MEAN CORPUSCULAR HEMOGLOBIN 28.7 pg (27.0-33.4); MEAN CORPUSCULAR HGB CONC 34.3 g/dL (32.0-36.0); MEAN CORPUSCULAR VOLUME 84 fl (80-97); MONOCYTES % (AUTO) 13.2 % (3-13); PLATELET COUNT 206 10^3/uL (150-450); RED BLOOD COUNT 4.98 10^6/uL (4.35-5.55); RED CELL DISTRIBUTION WIDTH 15.2 % (11.5-14.0); SEGMENTED NEUTROPHILS % (AUTO) 66.4 % (42-78); TOTAL CELLS COUNTED % (AUTO) 100 %; WHITE BLOOD COUNT 8.4 10^3/uL (4.0-10.5)
[2017-06-01 08:38] LABS: ALANINE AMINOTRANSFERASE 25 U/L (21-72); ALBUMIN 4.2 g/dL (3.5-5.0); ALKALINE PHOSPHATASE 64 U/L (38-126); ANION GAP 10 (5-19); ASPARTATE AMINO TRANSFERASE 38 U/L (17-59); BILIRUBIN,DIRECT 0.3 mg/dL (0.0-0.4); BILIRUBIN,TOTAL 0.5 mg/dL (0.2-1.3); BLOOD UREA NITROGEN 30 mg/dL (7-20); CALCIUM 9.2 mg/dL (8.4-10.2); CARBON DIOXIDE 30 mmol/L (22-30); CHLORIDE 101 mmol/L (98-107); GLUCOSE 154 mg/dL (75-110); POTASSIUM 4.1 mmol/L (3.6-5.0); SODIUM 140.7 mmol/L (137-145); TOTAL PROTEIN 7.1 g/dL (6.3-8.2)
[2017-06-01 08:50] LABS: CREATINE KINASE MB 2.2 ng/mL (<4.55)
[2017-06-01 09:21] LABS: TROPONIN I 0.061 ng/mL
[2017-06-01] MEDS ORDERED: ACETAMINOPHEN 325 MG TABLET PO ONE (10:25)
[2017-06-01 10:32] VITALS: BP 110/88
--- NOTE | 2017-06-01 17:28 | EKG REPORT ---
SEVERITY:- BORDERLINE ECG - SINUS RHYTHM BORDERLINE T ABNORMALITIES, DIFFUSE LEADS : Confirmed by: Pooja Patel 01-Jun-2017 12:16:10
--- NOTE | 2017-06-04 11:51 | ER Document Report ---
ED General - General Chief Complaint: Swelling of Lower Extremity Stated Complaint: FEET SWELLING Time Seen by Provider: 06/01/17 07:52 Mode of Arrival: Medic Information source: Patient Notes: Patient is a 61-year-old male who is well-known to this emergency department who presents to the ER today for swelling to his lower extremities by EMS. Patient also states that his defibrillator went off at 2 AM last night and that he was having chest pain at that time. Patient denies chest pain, shortness of breath or nausea at this time. Patient states that he has been in his house due to the snow and ice for 2 days without any food. He does take Lasix and states that he has been taking that. He denies any trouble breathing. TRAVEL OUTSIDE OF THE [place] IN LAST 30 DAYS: No - Related Data Allergies/Adverse Reactions: captopril [From Capoten] Allergy (Severe, Verified 06/02/17 12:42) Angioedema atorvastatin calcium [From Lipitor] Allergy (Intermediate, Verified 06/02/17 12: 42) Angioedema atorvastatin [From Lipitor] Allergy (Verified 06/02/17 12:42) clopidogrel [From Plavix] Allergy (Verified 06/02/17 12:42) rosuvastatin [From Crestor] Allergy (Verified 06/02/17 12:42) simvastatin [From Zocor] Allergy (Verified 06/02/17 12:42) Angioedema Past Medical History - General Information source: Patient - Social History Smoking Status: Unknown if Ever Smoked Chew tobacco use (# tins/day): No Frequency of alcohol use: None Drug Abuse: None Family History: Reviewed & Not Pertinent, CAD, DM, Hypertension, Thyroid Disfunction Patient has suicidal ideation: No Patient has homicidal ideation: No - Past Medical History Cardiac Medical History: Reports: Hx Congestive Heart Failure, Hx Coronary Artery Disease, Hx Heart Attack - 2009, Hx Hypercholesterolemia, Hx Hypertension Pulmonary Medical History: Reports: Hx Asthma, Hx Bronchitis, Hx COPD, Hx Sleep Apnea Neurological Medical History: Reports: Hx Cerebrovascular Accident - x 2. Denies: Hx Seizures Endocrine Medical History: Reports: Hx Diabetes Mellitus Type 1, Hx Diabetes Mellitus Type 2 Renal/ Medical History: Denies: Hx Peritoneal Dialysis Malignancy Medical History: GI Medical History: Reports: Hx Diverticulitis, Hx Gastroesophageal Reflux Disease Musculoskeltal Medical History: Reports Hx Arthritis, Reports Hx Musculoskeletal Deformity, Reports Hx Musculoskeletal Trauma Psychiatric Medical History: Reports: Hx Anxiety, Hx Post Traumatic Stress Disorder Denies: Hx Depression Infectious Medical History: Past Surgical History: Reports: Hx Abdominal Surgery - for diverticulitis, Hx Bowel Surgery - Colon resection due to diverticulitis, Hx Cardiac Catheterization, Hx Cardiac Surgery - 1984, ICD placement 2015, Hx Coronary Artery Bypass Graft, Hx Coronary Stent - 1984, Hx Thyroid Surgery, Other - AICD - Immunizations Immunizations up to date: Yes Hx Diphtheria, Pertussis, Tetanus Vaccination: Yes Hx Pneumococcal Vaccination: 05/26/10 Review of Systems - Review of Systems Constitutional: No symptoms reported EENT: No symptoms reported Cardiovascular: See HPI Respiratory: No symptoms reported Gastrointestinal: No symptoms reported Genitourinary: No symptoms reported Male Genitourinary: No symptoms reported Musculoskeletal: No symptoms reported Skin: See HPI Hematologic/Lymphatic: No symptoms reported Neurological/Psychological: No symptoms reported Physical Exam - Vital signs Vitals: Temp Pulse Resp BP Pulse Ox 98.5 F 99 16 114/74 96 06/01/17 07:45 06/01/17 07:45 06/01/17 07:45 06/01/17 07:45 06/01/17 07:45 - Notes Notes: PHYSICAL EXAMINATION: GENERAL: Chronically ill-appearing, but smiling and in no acute distress. HEAD: Atraumatic, normocephalic. EYES: Pupils equal round and reactive to light, extraocular movements intact, sclera anicteric, conjunctiva are normal. NECK: Normal range of motion, supple without lymphadenopathy LUNGS: CTAB and equal. No wheezes rales or rhonchi. HEART: Chest nontender to palpation, regular rate and rhythm without murmurs ABDOMEN: Soft, no tenderness. No guarding, no rebound BACK: no vertebral tenderness, normal ROM GI/: no CVA tenderness EXTREMITIES: Normal range of motion, no pitting edema. No cyanosis. NEUROLOGICAL: Left-sided weakness that is normal for patient, slurring of speech that is normal for patient PSYCH: Normal mood, normal affect. SKIN: Warm, Dry, normal turgor, no rashes or lesions noted Course - Re-evaluation Re-evalutation: 06/04/17 11:50 Lab work is unremarkable today, troponin is at patient's baseline. Patient had no chest pain here, nor does he have any swelling of the extremities at all. I do believe patient probably came here to get some food as he usually does whenever he is stuck in his house for longer than a few days, he does not have access to food sometimes because he lives alone. Patient was very happy with these results. His [employer] pacemaker defibrillator was interrogated and she reports that he had no shock, no significant episodes last night. - Vital Signs Vital signs: Temp Pulse Resp BP Pulse Ox 98.5 F 99 24 H 110/88 H 98 06/01/17 07:45 06/01/17 07:45 06/01/17 10:01 06/01/17 10:01 06/01/17 10:01 - Laboratory Result Diagrams: 06/01/17 08:08 06/01/17 08:08 Laboratory results interpreted by me: 06/01/17 06/01/17 08:08 08:08 RDW 15.2 H Monocytes % 13.2 H BUN 30 H Creatinine 1.39 H Est GFR (Non-Af Amer) 52 L Glucose 154 H Discharge - Discharge Clinical Impression: Chest pain Qualifiers: Chest pain type: unspecified Qualified Code(s): R07.9 - Chest pain, unspecified Condition: Stable Disposition: HOME, SELF-CARE Additional Instructions: Return immediately for any new or worsening symptoms. Follow up with primary care provider, call tomorrow to make followup appointment.
== END 2017-06-01 12:35 | disposition home or self-care (01) ==
LOC: ER 07:45
DX: R07.9 Chest pain, unspecified (principal); M79.89 Other specified soft tissue disorders; I50.9 Heart failure, unspecified; I25.10 Atherosclerotic heart disease of native coronary artery without angina pectoris; E78.00 Pure hypercholesterolemia, unspecified; I11.0 Hypertensive heart disease with heart failure; J44.9 Chronic obstructive pulmonary disease, unspecified; E11.9 Type 2 diabetes mellitus without complications; Z86.73 Personal history of transient ischemic attack (TIA), and cerebral infarction without residual deficits; I25.2 Old myocardial infarction
CPT/HCPCS: 93005; 99284; 36415; 82553; 85025; 80053; 84484; 83880; 93010; A9270

== ENCOUNTER 2017-06-02 12:39 | Emergency (ER) | payer OTHER, MEDICARE ==
[2017-06-02 12:46] VITALS: BP 112/65
--- NOTE | 2017-06-02 13:43 | ER Document Report ---
ED Medical Screen (RME) - General Chief Complaint: Swelling of Lower Extremity Stated Complaint: FEET SWOLLEN Time Seen by Provider: 06/02/17 13:41 Notes: Patient presents stating he is having chest pain. He also states he has leg swelling and leg pain. He also states that he is having frequent falls. Apparently case management has already been contacted and is going to discuss home treatment with the patient during this visit. TRAVEL OUTSIDE OF THE [place] IN LAST 30 DAYS: No - Related Data Allergies/Adverse Reactions: captopril [From Capoten] Allergy (Severe, Verified 06/02/17 12:42) Angioedema atorvastatin calcium [From Lipitor] Allergy (Intermediate, Verified 06/02/17 12: 42) Angioedema atorvastatin [From Lipitor] Allergy (Verified 06/02/17 12:42) clopidogrel [From Plavix] Allergy (Verified 06/02/17 12:42) rosuvastatin [From Crestor] Allergy (Verified 06/02/17 12:42) simvastatin [From Zocor] Allergy (Verified 06/02/17 12:42) Angioedema Past Medical History - Social History Chew tobacco use (# tins/day): No Frequency of alcohol use: None Drug Abuse: None Family history: None - Past Medical History Cardiac Medical History: Reports: Hx Congestive Heart Failure, Hx Coronary Artery Disease, Hx Heart Attack - 2008, Hx Hypercholesterolemia, Hx Hypertension Pulmonary Medical History: Reports: Hx Asthma, Hx Bronchitis, Hx COPD, Hx Sleep Apnea Neurological Medical History: Reports: Hx Cerebrovascular Accident - x 2. Denies: Hx Seizures Endocrine Medical History: Reports: Hx Diabetes Mellitus Type 1, Hx Diabetes Mellitus Type 2 Renal/ Medical History: Denies: Hx Peritoneal Dialysis Malignancy Medical History: GI Medical History: Reports: Hx Diverticulitis, Hx Gastroesophageal Reflux Disease Musculoskeltal Medical History: Reports Hx Arthritis, Reports Hx Musculoskeletal Deformity, Reports Hx Musculoskeletal Trauma Psychiatric Medical History: Reports: Hx Anxiety, Hx Post Traumatic Stress Disorder Denies: Hx Depression Infectious Medical History: Past Surgical History: Reports: Hx Abdominal Surgery - for diverticulitis, Hx Bowel Surgery - Colon resection due to diverticulitis, Hx Cardiac Catheterization, Hx Cardiac Surgery - 1984, ICD placement 2015, Hx Coronary Artery Bypass Graft, Hx Coronary Stent - 1984, Hx Thyroid Surgery, Other - AICD - Immunizations Immunizations up to date: Yes Hx Diphtheria, Pertussis, Tetanus Vaccination: Yes Physical Exam - Vital signs Vitals: Temp Pulse BP Pulse Ox 98.4 F 111 H 112/65 92 06/02/17 12:45 06/02/17 12:45 06/02/17 12:45 06/02/17 12:45 Course - Vital Signs Vital signs: Temp Pulse Resp BP Pulse Ox 98.4 F 111 H 112/65 92 06/02/17 12:45 06/02/17 12:45 06/02/17 12:45 06/02/17 12:45
[2017-06-02 14:45] LABS: ABSOLUTE EOSINOPHILS # (AUTO) 0.1 10^3/uL (0.0-0.6); ABSOLUTE LYMPHOCYTES (AUTO) 1.4 10^3/uL (0.5-4.7); ABSOLUTE MONOCYTES (AUTO) 1.3 10^3/uL (0.1-1.4); BASOPHILS % (AUTO) 0.6 % (0-2); EOSINOPHILS % (AUTO) 1.7 % (0-6); HEMATOCRIT 43.7 % (37.9-51.0); HEMOGLOBIN 14.6 g/dL (13.5-17.0); LYMPHOCYTES % (AUTO) 17.6 % (13-45); MEAN CORPUSCULAR HEMOGLOBIN 28.3 pg (27.0-33.4); MEAN CORPUSCULAR HGB CONC 33.5 g/dL (32.0-36.0); MEAN CORPUSCULAR VOLUME 85 fl (80-97); MONOCYTES % (AUTO) 16.5 % (3-13); PLATELET COUNT 229 10^3/uL (150-450); RED BLOOD COUNT 5.17 10^6/uL (4.35-5.55); RED CELL DISTRIBUTION WIDTH 15.2 % (11.5-14.0); SEGMENTED NEUTROPHILS % (AUTO) 63.6 % (42-78); TOTAL CELLS COUNTED % (AUTO) 100 %; WHITE BLOOD COUNT 7.9 10^3/uL (4.0-10.5)
[2017-06-02 14:48] LABS: ALANINE AMINOTRANSFERASE 25 U/L (21-72); ALBUMIN 4.5 g/dL (3.5-5.0); ALKALINE PHOSPHATASE 70 U/L (38-126); ANION GAP 11 (5-19); ASPARTATE AMINO TRANSFERASE 23 U/L (17-59); BILIRUBIN,DIRECT 0.2 mg/dL (0.0-0.4); BILIRUBIN,TOTAL 0.3 mg/dL (0.2-1.3); BLOOD UREA NITROGEN 23 mg/dL (7-20); CALCIUM 9.2 mg/dL (8.4-10.2); CARBON DIOXIDE 29 mmol/L (22-30); CHLORIDE 99 mmol/L (98-107); GLUCOSE 156 mg/dL (75-110); POTASSIUM 4.4 mmol/L (3.6-5.0); SODIUM 139.1 mmol/L (137-145); TOTAL PROTEIN 7.3 g/dL (6.3-8.2)
--- NOTE | 2017-06-02 14:48 | ER Document Report ---
ED General - General Chief Complaint: Swelling of Lower Extremity Stated Complaint: FEET SWOLLEN Time Seen by Provider: 06/02/17 13:41 Mode of Arrival: Medic Information source: Patient Notes: 61-year-old male history pacemaker CHF presents with complaints of swelling in his extremities. Patient notes the swelling has been ongoing for a couple weeks but no one has addressed it. Patient is on diuretics yesterday he stated that his pacemaker had fired and was evaluated in the ED for this Patient notes he is having chest pain that he has whenever he has intercourse TRAVEL OUTSIDE OF THE [place] IN LAST 30 DAYS: No - HPI Onset: Just prior to arrival Onset/Duration: Sudden Quality of pain: Sharp Severity: Mild Pain Level: 1 Associated symptoms: Chest pain Exacerbated by: Denies Relieved by: Denies Similar symptoms previously: Yes Recently seen / treated by doctor: Yes - Related Data Allergies/Adverse Reactions: captopril [From Capoten] Allergy (Severe, Verified 06/02/17 12:42) Angioedema atorvastatin calcium [From Lipitor] Allergy (Intermediate, Verified 06/02/17 12: 42) Angioedema atorvastatin [From Lipitor] Allergy (Verified 06/02/17 12:42) clopidogrel [From Plavix] Allergy (Verified 06/02/17 12:42) rosuvastatin [From Crestor] Allergy (Verified 06/02/17 12:42) simvastatin [From Zocor] Allergy (Verified 06/02/17 12:42) Angioedema Past Medical History - Social History Smoking Status: Never Smoker Cigarette use (# per day): No Chew tobacco use (# tins/day): No Smoking Education Provided: No Frequency of alcohol use: None Drug Abuse: None Family History: Reviewed & Not Pertinent, CAD, DM, Hypertension, Thyroid Disfunction Patient has suicidal ideation: No Patient has homicidal ideation: No - Past Medical History Cardiac Medical History: Reports: Hx Congestive Heart Failure, Hx Coronary Artery Disease, Hx Heart Attack - 2009, Hx Hypercholesterolemia, Hx Hypertension Pulmonary Medical History: Reports: Hx Asthma, Hx Bronchitis, Hx COPD, Hx Sleep Apnea Neurological Medical History: Reports: Hx Cerebrovascular Accident - x 2. Denies: Hx Seizures Endocrine Medical History: Reports: Hx Diabetes Mellitus Type 1, Hx Diabetes Mellitus Type 2 Renal/ Medical History: Denies: Hx Peritoneal Dialysis Malignancy Medical History: GI Medical History: Reports: Hx Diverticulitis, Hx Gastroesophageal Reflux Disease Musculoskeltal Medical History: Reports Hx Arthritis, Reports Hx Musculoskeletal Deformity, Reports Hx Musculoskeletal Trauma Psychiatric Medical History: Reports: Hx Anxiety, Hx Post Traumatic Stress Disorder Denies: Hx Depression Infectious Medical History: Past Surgical History: Reports: Hx Abdominal Surgery - for diverticulitis, Hx Bowel Surgery - Colon resection due to diverticulitis, Hx Cardiac Catheterization, Hx Cardiac Surgery - 1984, ICD placement 2015, Hx Coronary Artery Bypass Graft, Hx Coronary Stent - 1984, Hx Thyroid Surgery, Other - AICD - Immunizations Immunizations up to date: Yes Hx Diphtheria, Pertussis, Tetanus Vaccination: Yes Hx Pneumococcal Vaccination: 05/26/10 Review of Systems - Review of Systems Notes: REVIEW OF SYSTEMS: CONSTITUTIONAL : Denies fever, chills, or sweats. Denies recent illness. EENT: Denies eye, ear, throat, or mouth pain or symptoms. Denies nasal or sinus congestion or discharge. Denies throat, tongue, or mouth swelling or difficulty swallowing. CARDIOVASCULAR: Admits to chest pain RESPIRATORY: Denies cough, cold, or chest congestion. Denies shortness of breath, difficulty breathing, or wheezing. GASTROINTESTINAL: Denies abdominal pain or distention. Denies nausea, vomiting , or diarrhea. Denies blood in vomitus, stools, or per rectum. Denies black, tarry stools. Denies constipation. GENITOURINARY: Denies difficulty urinating, painful urination, burning, frequency, blood in urine, or discharge. MUSCULOSKELETAL: Admits to edema SKIN: Denies rash, lesions or sores. HEMATOLOGIC : Denies easy bruising or bleeding. LYMPHATIC: Denies swollen, enlarged glands. NEUROLOGICAL: Denies confusion or altered mental status. Denies passing out or loss of consciousness. Denies dizziness or lightheadedness. Denies headache. Denies weakness or paralysis or loss of use of either side. Denies problems with gait or speech. Denies sensory loss, numbness, or tingling. Denies seizures. PSYCHIATRIC: Denies anxiety or stress. Denies depression, suicidal ideation, or homicidal ideation. ALL OTHER SYSTEMS REVIEWED AND NEGATIVE. Dictation was performed using [employer] recognition software PHYSICAL EXAMINATION: GENERAL: Well-appearing, well-nourished and in no acute distress. HEAD: Atraumatic, normocephalic. EYES: Pupils equal round and reactive to light, extraocular movements intact, sclera anicteric, conjunctiva are normal. ENT: Nares patent, oropharynx clear without exudates. Moist mucous membranes. NECK: Normal range of motion, supple without lymphadenopathy LUNGS: Breath sounds clear to auscultation bilaterally and equal. No wheezes rales or rhonchi. HEART: Regular rate and rhythm without murmurs ABDOMEN: Soft, nontender, nondistended abdomen. No guarding, no rebound. No masses appreciated. Musculoskeletal: Normal range of motion, no pitting or edema. No cyanosis. NEUROLOGICAL: Baseline mentation normal gait normal sensation normal motor exam PSYCH: Normal mood, normal affect. SKIN: Warm, Dry, normal turgor, no rashes or lesions noted. Physical Exam - Vital signs Vitals: Temp Pulse BP Pulse Ox 98.4 F 111 H 112/65 92 06/02/17 12:45 06/02/17 12:45 06/02/17 12:45 06/02/17 12:45 Course - Re-evaluation Re-evalutation: 06/02/17 19:53 Patient was evaluated multiple times he has had absolutely no swelling in his lower extremity, he has no shortness of breath vital signs are stable, his heart rate increases when he gets anxious and starts yelling, his pacer had been evaluated yesterday and no discharge was noted. Patient was seen yesterday and I supervised the mid-level on the patient's care, it was noted that the patient did not in fact have any swelling then and does not have any swelling now Patient's lab work was negative for any life threatening issues We discussed the patient's chest pain this is similar to all his previous chest pain visits Patient is stable was discharged and ambulated with no difficulty After performing a Medical Screening Examination, I estimate there is LOW risk for RUPTURED ESOPHAGUS, PNEUMOTHORAX, PULMONARY EMBOLISM, ACUTE CORONARY SYNDROME, OR THORACIC AORTIC DISSECTION, thus I consider the discharge disposition reasonable. I have reevaluated this patient multiple times and no significant life threatening changes are noted. The patient and I have discussed the diagnosis and risks, and we agree with discharging home with close follow-up. We also discussed returning to the Emergency Department immediately if new or worsening symptoms occur. We have discussed the symptoms which are most concerning (e.g., bloody sputum, worsening pain or shortness of breath) that necessitate immediate return. - Vital Signs Vital signs: Temp Pulse Resp BP Pulse Ox 98.4 F 111 H 112/65 92 06/02/17 12:45 06/02/17 12:45 06/02/17 12:45 06/02/17 12:45 - Laboratory Result Diagrams: 06/02/17 14:17 06/02/17 14:17 Laboratory results interpreted by me: 06/02/17 06/02/17 14:17 14:17 RDW 15.2 H Monocytes % 16.5 H BUN 23 H Glucose 156 H - Diagnostic Test Radiology reviewed: Image reviewed, Reports reviewed - EKG Interpretation by Me EKG shows normal: Sinus rhythm, Struthers, Intervals, QRS Complexes Discharge - Discharge Clinical Impression: Edema Condition: Stable Disposition: HOME, SELF-CARE Instructions: Congestive Heart Failure ([facility]) Additional Instructions: Follow up with your physician tomorrow for further care or return to the ED IMMEDIATELY if symptoms worsen or new concerns occur. If you cannot afford to follow up with your primary care physician a list of low cost clinics have been provided at the end of your discharge papers as well.
[2017-06-02 15:04] LABS: TROPONIN I 0.051 ng/mL
--- NOTE | 2017-06-02 15:22 | RADIOLOGY REPORT (SQ) ---
EXAM DESCRIPTION: CHEST PA/LAT COMPLETED DATE/TIME: 06/02/2017 2:48 pm REASON FOR STUDY: cp COMPARISON: 12/11/2016 NUMBER OF VIEWS: Two view TECHNIQUE: Frontal and lateral radiographic images of the chest acquired. LIMITATIONS: None. FINDINGS: LUNGS AND PLEURA: No evidence of pulmonary edema or pneumonia. MEDIASTINUM AND HILAR STRUCTURES: Stable heart size and mediastinal structures. HEART AND VASCULAR STRUCTURES: Stable appearance. SUPPORT DEVICES: Appropriate location without change. BONES: No acute findings. OTHER: No other significant finding. IMPRESSION: Cardiomegaly. No acute findings. TECHNICAL DOCUMENTATION: JOB ID: [id number] [facility]- All Rights Reserved
--- NOTE | 2017-06-02 16:46 | EKG REPORT ---
SEVERITY:- BORDERLINE ECG - SINUS TACHYCARDIA RIGHT AXIS DEVIATION BORDERLINE T ABNORMALITIES, INFERIOR LEADS : Confirmed by: Zac Brandon MD 02-Jun-2017 16:46:15
== END 2017-06-02 17:23 | disposition home or self-care (01) ==
LOC: ER 12:39
DX: R60.9 Edema, unspecified (principal); R07.9 Chest pain, unspecified; I25.10 Atherosclerotic heart disease of native coronary artery without angina pectoris; I10 Essential (primary) hypertension; I25.2 Old myocardial infarction; J44.9 Chronic obstructive pulmonary disease, unspecified; E11.9 Type 2 diabetes mellitus without complications; Z88.8 Allergy status to other drugs, medicaments and biological substances; Z95.810 Presence of automatic (implantable) cardiac defibrillator
CPT/HCPCS: 36415; 71046; 80053; 83880; 84484; 85025; 93005; 93010; 99284

== ENCOUNTER 2017-06-03 02:09 | Emergency (ER) | payer OTHER, MEDICARE ==
--- NOTE | 2017-06-03 02:27 | ER Document Report ---
ED Fall - General Stated Complaint: FALL Time Seen by Provider: 06/03/17 02:18 Notes: Patient is a 61-year-old male comes emergency department for chief complaint of a trip and fall. He states that he tripped on something on the floor and he landed on his knees and then fell over onto his right side. He states that he has pains going up his legs and in his knees. He denies chest pain, abdominal pain, back pain, head injury. He comes by EMS. EMS reports that he became irritable and then started answering yes to everything asked him. TRAVEL OUTSIDE OF THE [place] IN LAST 30 DAYS: No - Related data Allergies/Adverse Reactions: captopril [From Capoten] Allergy (Severe, Verified 06/02/17 12:42) Angioedema atorvastatin calcium [From Lipitor] Allergy (Intermediate, Verified 06/02/17 12: 42) Angioedema atorvastatin [From Lipitor] Allergy (Verified 06/02/17 12:42) clopidogrel [From Plavix] Allergy (Verified 06/02/17 12:42) rosuvastatin [From Crestor] Allergy (Verified 06/02/17 12:42) simvastatin [From Zocor] Allergy (Verified 06/02/17 12:42) Angioedema Past Medical History - General Information source: Patient - Social History Smoking Status: Never Smoker Frequency of alcohol use: None Drug Abuse: None Lives with: Alone Family History: Reviewed & Not Pertinent, CAD, DM, Hypertension, Thyroid Disfunction - Past Medical History Cardiac Medical History: Reports: Hx Congestive Heart Failure, Hx Coronary Artery Disease, Hx Heart Attack - 2009, Hx Hypercholesterolemia, Hx Hypertension Pulmonary Medical History: Reports: Hx Asthma, Hx Bronchitis, Hx COPD, Hx Sleep Apnea Neurological Medical History: Reports: Hx Cerebrovascular Accident - x 2. Denies: Hx Seizures Endocrine Medical History: Reports: Hx Diabetes Mellitus Type 1, Hx Diabetes Mellitus Type 2 Renal/ Medical History: Denies: Hx Peritoneal Dialysis Malignancy Medical History: GI Medical History: Reports: Hx Diverticulitis, Hx Gastroesophageal Reflux Disease Musculoskeltal Medical History: Reports Hx Arthritis, Reports Hx Musculoskeletal Deformity, Reports Hx Musculoskeletal Trauma Psychiatric Medical History: Reports: Hx Anxiety, Hx Post Traumatic Stress Disorder Denies: Hx Depression Infectious Medical History: Past Surgical History: Reports: Hx Abdominal Surgery - for diverticulitis, Hx Bowel Surgery - Colon resection due to diverticulitis, Hx Cardiac Catheterization, Hx Cardiac Surgery - 1984, ICD placement 2015, Hx Coronary Artery Bypass Graft, Hx Coronary Stent - 1984, Hx Thyroid Surgery, Other - AICD - Immunizations Immunizations up to date: Yes Hx Diphtheria, Pertussis, Tetanus Vaccination: Yes Hx Pneumococcal Vaccination: 05/26/10 Review of Systems - Review of Systems Constitutional: No symptoms reported EENT: No symptoms reported Cardiovascular: No symptoms reported Respiratory: No symptoms reported Gastrointestinal: No symptoms reported Genitourinary: No symptoms reported Male Genitourinary: No symptoms reported Musculoskeletal: See HPI Skin: No symptoms reported Hematologic/Lymphatic: No symptoms reported Neurological/Psychological: No symptoms reported Physical Exam - Vital signs Interpretation: Normal - General General appearance: Appears well, Alert In distress: None - HEENT Head: Normocephalic, Atraumatic Eyes: Normal Pupils: PERRL - Respiratory Respiratory status: No respiratory distress Chest status: Nontender Breath sounds: Normal. No: Decreased air movement, Wheezing Chest palpation: Normal - Cardiovascular Rhythm: Regular. No: Tachycardia Heart sounds: Normal auscultation, S1 appreciated, S2 appreciated Murmur: No - Abdominal Inspection: Normal Distension: No distension Bowel sounds: Normal Tenderness: Nontender. No: Tender, Guarding - Back Back: Normal, Nontender. No: Tender - Extremities General upper extremity: Normal inspection, Nontender, Normal color, Normal ROM , Normal temperature General lower extremity: Other - Patient verbalizes discomfort when proximal thighs anteriorly and bilateral knees are palpated, full range of motion intact , no evidence of trauma, no significant tenderness noted, normal distal neurovascular exam. - Neurological Neuro grossly intact: Yes Cognition: Normal Orientation: AAOx4 Magalis Coma Scale Eye Opening: Spontaneous Magalis Coma Scale Verbal: Oriented Magalis Coma Scale Motor: Obeys Commands [place] Coma Scale Total: 15 Speech: Normal Cranial nerves: Normal Cerebellar coordination: Normal Motor strength normal: LUE, RUE, LLE, RLE Sensory: Normal - Psychological Associated symptoms: Normal affect, Normal mood - Skin Skin Temperature: Warm Skin Moisture: Dry Skin Color: Normal Course - Re-evaluation Re-evalutation: Patient is very well-known to this department. He was here yesterday, he is using here about every 2-3 days. He denies chest pain to me, he only reports symptoms of pain in his knees, thighs, hips after a fall. No signs of trauma on exam. Questionable pain with palpation over the general thighs and knees. No pain with palpation of back. Head or neck injury, denies pain in those locations. Unremarkable vital signs, clear lungs, well-appearing patient. X-rays negative. Patient continues to be well-appearing with no evidence of trauma or concerning acute abnormality. Discharged home with return precautions and close follow-up recommendations. Patient does verbalize understanding and agreement. Stable at time of discharge. Discharge - Discharge Clinical Impression: Fall Qualifiers: Encounter type: initial encounter Qualified Code(s): W19.XXXA - Unspecified fall, initial encounter Lower extremity pain Qualifiers: Laterality: bilateral Qualified Code(s): M79.604 - Pain in right leg Condition: Stable Disposition: HOME, SELF-CARE Additional Instructions: Your x-rays are normal and show no fracture, dislocation, or other concerning findings. Apply ice to your knee several times a day if needed. Take Tylenol for pain. Follow-up with your primary care provider in the next several days. Return to the emergency department for any concerning symptoms including severe pain or swelling.
[2017-06-03] MEDS ORDERED: HYDROCODONE/ACETAMINOPHEN 5-325 MG TABLET PO ONE (04:23)
--- NOTE | 2017-06-03 04:26 | RADIOLOGY REPORT (SQ) ---
EXAM DESCRIPTION: HIP BILATERAL CLINICAL HISTORY: fall, pain COMPARISON: None. FINDINGS: Single frontal view of the pelvis and bilateral lateral views of the hips. No acute fracture or dislocation. Mild bilateral hip joint space narrowing. No pelvic soft tissue abnormalities. IMPRESSION: No acute fracture or dislocation.
--- NOTE | 2017-06-03 04:46 | RADIOLOGY REPORT (SQ) ---
EXAM DESCRIPTION: KNEE BILATERAL 1-2 VIEWS CLINICAL HISTORY: fall, pain COMPARISON: 01/10/2017 FINDINGS: Right: 2 views of the right knee. No acute fracture or dislocation. Normal osseous mineralization. No joint effusion. Benign-appearing well-circumscribed sclerotic lesion in the distal femoral diaphysis. Enthesophyte at the patellar tendon origin and insertion. Left: 2 views of the left knee. No acute fracture or dislocation. Normal osseous mineralization. No joint effusion. Enthesophytes at the patellar tendon origin and insertion. Mild medial compartment joint space narrowing and marginal osteophytosis. IMPRESSION: 1. No acute fracture or dislocation in the bilateral knees.
--- NOTE | 2017-06-03 06:37 | EKG REPORT ---
SEVERITY:- ABNORMAL ECG - SINUS TACHYCARDIA NONSPECIFIC INTRAVENTRICULAR CONDUCTION DELAY BORDERLINE INFERIOR Q WAVES : Confirmed by: Zac Brandon MD 03-Jun-2017 06:36:56
== END 2017-06-03 07:50 | disposition home or self-care (01) ==
LOC: ER 02:09
DX: M79.604 Pain in right leg (principal); M79.605 Pain in left leg; M25.561 Pain in right knee; M25.562 Pain in left knee; W01.0XXA Fall on same level from slipping, tripping and stumbling without subsequent striking against object, initial encounter
CPT/HCPCS: 73522; 93005; 93010; 99284

== ENCOUNTER 2017-06-04 16:35 | Emergency (ER) | payer OTHER, MEDICARE ==
[2017-06-04] MEDS ORDERED: DEXAMETHASONE SOD PHOS INJ 10 MG/1 ML VIAL IM ONE (18:48)
[2017-06-04] MEDS ORDERED: ACETAMINOPHEN 325 MG TABLET PO ONE (18:48)
--- NOTE | 2017-06-04 18:51 | ER Document Report ---
ED Dizziness/Weakness - General Chief Complaint: Weakness Stated Complaint: WEAKNESS Time Seen by Provider: 06/04/17 18:48 Mode of Arrival: Ambulatory Information source: Patient Notes: Pt is a 61 year old male who presents to the ER today for chronic heel spur pain to bilateral feet. He states he came for cortisone shots into his feet. He also complains that he hasn't eaten today. He comes in for food quite a lot as he states he has no food at home and lives alone. He denies any new pain today or symptoms. TRAVEL OUTSIDE OF THE [place] IN LAST 30 DAYS: No - Related Data Allergies/Adverse Reactions: captopril [From Capoten] Allergy (Severe, Verified 06/04/17 16:38) Angioedema atorvastatin calcium [From Lipitor] Allergy (Intermediate, Verified 06/04/17 16: 38) Angioedema atorvastatin [From Lipitor] Allergy (Verified 06/04/17 16:38) clopidogrel [From Plavix] Allergy (Verified 06/04/17 16:38) rosuvastatin [From Crestor] Allergy (Verified 06/04/17 16:38) simvastatin [From Zocor] Allergy (Verified 06/04/17 16:38) Angioedema Past Medical History - General Information source: Patient - Social History Smoking Status: Former Smoker Family History: Reviewed & Not Pertinent, CAD, DM, Hypertension, Thyroid Disfunction - Past Medical History Cardiac Medical History: Reports: Hx Congestive Heart Failure, Hx Coronary Artery Disease, Hx Heart Attack - 2008, Hx Hypercholesterolemia, Hx Hypertension Pulmonary Medical History: Reports: Hx Asthma, Hx Bronchitis, Hx COPD, Hx Sleep Apnea Neurological Medical History: Reports: Hx Cerebrovascular Accident - x 2. Denies: Hx Seizures Endocrine Medical History: Reports: Hx Diabetes Mellitus Type 1, Hx Diabetes Mellitus Type 2 Renal/ Medical History: Denies: Hx Peritoneal Dialysis Malignancy Medical History: GI Medical History: Reports: Hx Diverticulitis, Hx Gastroesophageal Reflux Disease Musculoskeltal Medical History: Reports Hx Arthritis, Reports Hx Musculoskeletal Deformity, Reports Hx Musculoskeletal Trauma Psychiatric Medical History: Reports: Hx Anxiety, Hx Post Traumatic Stress Disorder Denies: Hx Depression Infectious Medical History: Past Surgical History: Reports: Hx Abdominal Surgery - for diverticulitis, Hx Bowel Surgery - Colon resection due to diverticulitis, Hx Cardiac Catheterization, Hx Cardiac Surgery - 1984, ICD placement 2015, Hx Coronary Artery Bypass Graft, Hx Coronary Stent - 1984, Hx Thyroid Surgery, Other - AICD - Immunizations Immunizations up to date: Yes Hx Diphtheria, Pertussis, Tetanus Vaccination: Yes Hx Pneumococcal Vaccination: 05/26/10 Review of Systems - Review of Systems Constitutional: No symptoms reported EENT: No symptoms reported Cardiovascular: No symptoms reported Respiratory: No symptoms reported Gastrointestinal: No symptoms reported Genitourinary: No symptoms reported Male Genitourinary: No symptoms reported Musculoskeletal: See HPI Skin: No symptoms reported Hematologic/Lymphatic: No symptoms reported Neurological/Psychological: No symptoms reported Physical Exam - Vital signs Vitals: Temp Pulse Resp BP Pulse Ox 99.2 F 105 H 20 104/65 95 06/04/17 16:47 06/04/17 16:47 06/04/17 16:47 06/04/17 16:47 06/04/17 16:47 - Notes Notes: PHYSICAL EXAMINATION: GENERAL: well appearing, in no acute distress. HEAD: Atraumatic, normocephalic. EYES: Pupils equal round and reactive to light, extraocular movements intact, sclera anicteric, conjunctiva are normal. NECK: Normal range of motion, supple without lymphadenopathy LUNGS: CTAB and equal. No wheezes rales or rhonchi. HEART: regular rate and rhythm without murmurs ABDOMEN: Soft, no tenderness. No guarding, no rebound BACK: no vertebral tenderness, normal ROM GI/: no CVA tenderness EXTREMITIES: tender to bilateral feet entirely with very light touch, cannot efficiently examine pt's heel due to pt jerking his feet away when I attempt, no pitting edema. No cyanosis. NEUROLOGICAL: left sided weakness and slurred speech that is normal for patient PSYCH: Normal mood, normal affect. SKIN: Warm, Dry, normal turgor, no rashes or lesions noted Course - Re-evaluation Re-evalutation: 06/05/17 19:35 pt was given food here. I informed him we do not do cortisone shots in the feet here. I told him to follow up with his primary care provider about this. - Vital Signs Vital signs: Temp Pulse Resp BP Pulse Ox 98.7 F 102 H 20 110/65 98 06/04/17 20:38 06/04/17 20:38 06/04/17 20:38 06/04/17 20:38 06/04/17 20:38 Discharge - Discharge Clinical Impression: Heel spur Qualifiers: Laterality: unspecified laterality Qualified Code(s): M77.30 - Calcaneal spur, unspecified foot Condition: Stable Disposition: HOME, SELF-CARE Additional Instructions: Please return with worsening symptoms. Follow up with your primary care provider.
[2017-06-04 20:40] VITALS: BP 110/65
== END 2017-06-04 20:38 | disposition home or self-care (01) ==
LOC: ER 16:35
DX: M77.30 Calcaneal spur, unspecified foot (principal); R53.1 Weakness; I50.9 Heart failure, unspecified; E78.00 Pure hypercholesterolemia, unspecified; I11.0 Hypertensive heart disease with heart failure; I25.2 Old myocardial infarction; E11.9 Type 2 diabetes mellitus without complications; Z86.73 Personal history of transient ischemic attack (TIA), and cerebral infarction without residual deficits; J44.9 Chronic obstructive pulmonary disease, unspecified
CPT/HCPCS: 99284; 96372; J1100

== ENCOUNTER 2017-06-06 10:05 | Emergency (ER) | payer OTHER, MEDICARE ==
[2017-06-06 10:27] VITALS: BP 121/97
--- NOTE | 2017-06-06 11:15 | ER Document Report ---
ED Medical Screen (RME) - General Chief Complaint: Chest Pain Stated Complaint: CHEST PAIN Time Seen by Provider: 06/06/17 11:11 Notes: 61-year-old male here with complaints of chest pain and shortness of breath since yesterday. Patient speech is extremely difficult to understand and therefore history is limited. EXAM Regular rhythm TRAVEL OUTSIDE OF THE [place] IN LAST 30 DAYS: No - Related Data Allergies/Adverse Reactions: captopril [From Capoten] Allergy (Severe, Verified 06/06/17 10:07) Angioedema atorvastatin calcium [From Lipitor] Allergy (Intermediate, Verified 06/06/17 10: 07) Angioedema atorvastatin [From Lipitor] Allergy (Verified 06/06/17 10:07) clopidogrel [From Plavix] Allergy (Verified 06/06/17 10:07) rosuvastatin [From Crestor] Allergy (Verified 06/06/17 10:07) simvastatin [From Zocor] Allergy (Verified 06/06/17 10:07) Angioedema Past Medical History - Social History Family history: None - Past Medical History Cardiac Medical History: Reports: Hx Congestive Heart Failure, Hx Coronary Artery Disease, Hx Heart Attack - 2008, Hx Hypercholesterolemia, Hx Hypertension Pulmonary Medical History: Reports: Hx Asthma, Hx Bronchitis, Hx COPD, Hx Sleep Apnea Neurological Medical History: Reports: Hx Cerebrovascular Accident - x 2. Denies: Hx Seizures Endocrine Medical History: Reports: Hx Diabetes Mellitus Type 1, Hx Diabetes Mellitus Type 2 Renal/ Medical History: Denies: Hx Peritoneal Dialysis Malignancy Medical History: GI Medical History: Reports: Hx Diverticulitis, Hx Gastroesophageal Reflux Disease Musculoskeltal Medical History: Reports Hx Arthritis, Reports Hx Musculoskeletal Deformity, Reports Hx Musculoskeletal Trauma Psychiatric Medical History: Reports: Hx Anxiety, Hx Post Traumatic Stress Disorder Denies: Hx Depression Infectious Medical History: Past Surgical History: Reports: Hx Abdominal Surgery - for diverticulitis, Hx Bowel Surgery - Colon resection due to diverticulitis, Hx Cardiac Catheterization, Hx Cardiac Surgery - 1984, ICD placement 2015, Hx Coronary Artery Bypass Graft, Hx Coronary Stent - 1984, Hx Thyroid Surgery, Other - AICD - Immunizations Immunizations up to date: Yes Hx Diphtheria, Pertussis, Tetanus Vaccination: Yes Physical Exam - Vital signs Vitals: Temp Pulse Resp BP Pulse Ox 98.0 F 108 H 18 121/97 H 95 06/06/17 10:24 06/06/17 10:24 06/06/17 10:24 06/06/17 10:24 06/06/17 10:24 Course - Vital Signs Vital signs: Temp Pulse Resp BP Pulse Ox 98.0 F 108 H 18 121/97 H 95 06/06/17 10:24 06/06/17 10:24 06/06/17 10:24 06/06/17 10:24 06/06/17 10:24
--- NOTE | 2017-06-06 11:46 | RADIOLOGY REPORT (SQ) ---
EXAM DESCRIPTION: CHEST SINGLE VIEW COMPLETED DATE/TIME: 06/06/2017 11:35 am REASON FOR STUDY: CP COMPARISON: 06/02/2017. NUMBER OF VIEWS: One view. TECHNIQUE: Single frontal radiographic view of the chest acquired. LIMITATIONS: None. FINDINGS: LUNGS AND PLEURA: No opacities, masses or pneumothorax. No pleural effusion. MEDIASTINUM AND HILAR STRUCTURES: No masses. Contour normal. HEART AND VASCULAR STRUCTURES: Heart enlarged without failure. Normal vasculature. BONES: No acute findings. Degenerative changes in the spine. HARDWARE: Defibrillator. OTHER: No other significant finding. IMPRESSION: HEART ENLARGED WITHOUT FAILURE. NO OTHER SIGNIFICANT RADIOGRAPHIC FINDING IN THE CHEST. TECHNICAL DOCUMENTATION: JOB ID: [id number] [employer]- All Rights Reserved
[2017-06-06 12:03] LABS: ABSOLUTE BASOPHILS # (AUTO) 0.1 10^3/uL (0.0-0.2); ABSOLUTE EOSINOPHILS # (AUTO) 0.2 10^3/uL (0.0-0.6); ABSOLUTE LYMPHOCYTES (AUTO) 1.5 10^3/uL (0.5-4.7); ABSOLUTE MONOCYTES (AUTO) 0.9 10^3/uL (0.1-1.4); BASOPHILS % (AUTO) 0.9 % (0-2); EOSINOPHILS % (AUTO) 2.4 % (0-6); HEMATOCRIT 42.7 % (37.9-51.0); HEMOGLOBIN 14.6 g/dL (13.5-17.0); LYMPHOCYTES % (AUTO) 22.2 % (13-45); MEAN CORPUSCULAR HEMOGLOBIN 28.6 pg (27.0-33.4); MEAN CORPUSCULAR HGB CONC 34.2 g/dL (32.0-36.0); MEAN CORPUSCULAR VOLUME 84 fl (80-97); MONOCYTES % (AUTO) 14.3 % (3-13); PLATELET COUNT 269 10^3/uL (150-450); SEGMENTED NEUTROPHILS % (AUTO) 60.2 % (42-78); TOTAL CELLS COUNTED % (AUTO) 100 %; WHITE BLOOD COUNT 6.6 10^3/uL (4.0-10.5)
[2017-06-06 12:28] LABS: ANION GAP 12 (5-19); BLOOD UREA NITROGEN 38 mg/dL (7-20); CALCIUM 9.2 mg/dL (8.4-10.2); CARBON DIOXIDE 28 mmol/L (22-30); CHLORIDE 100 mmol/L (98-107); GLUCOSE 156 mg/dL (75-110); POTASSIUM 4.4 mmol/L (3.6-5.0)
--- NOTE | 2017-06-06 13:59 | EKG REPORT ---
SEVERITY:- ABNORMAL ECG - SINUS TACHYCARDIA RIGHT AXIS DEVIATION BORDERLINE INFERIOR Q WAVES BORDERLINE R WAVE PROGRESSION, ANTERIOR LEADS BORDERLINE T ABNORMALITIES, INFERIOR LEADS : Confirmed by: Zac Brandon MD 06-Jun-2017 13:58:41
--- NOTE | 2017-06-06 14:54 | ER Document Report ---
ED General - General Chief Complaint: Chest Pain Stated Complaint: CHEST PAIN Time Seen by Provider: 06/06/17 11:11 Mode of Arrival: Ambulatory Information source: Patient Notes: Patient is a 61-year-old male who is very well-known to this emergency department who presents to the ER today for heel spur pain. Patient also wants food as he states he has not eaten all day. I did see him 2 days ago and gave him a steroid shot for his heel spur pain that he states he normally gets at the [facility]. He denies any chest pain, shortness of breath at this time which is usually his complaint. TRAVEL OUTSIDE OF THE [place] IN LAST 30 DAYS: No - Related Data Allergies/Adverse Reactions: captopril [From Capoten] Allergy (Severe, Verified 06/06/17 10:07) Angioedema atorvastatin calcium [From Lipitor] Allergy (Intermediate, Verified 06/06/17 10: 07) Angioedema atorvastatin [From Lipitor] Allergy (Verified 06/06/17 10:07) clopidogrel [From Plavix] Allergy (Verified 06/06/17 10:07) rosuvastatin [From Crestor] Allergy (Verified 06/06/17 10:07) simvastatin [From Zocor] Allergy (Verified 06/06/17 10:07) Angioedema Past Medical History - General Information source: Patient - Social History Smoking Status: Former Smoker Chew tobacco use (# tins/day): No Frequency of alcohol use: None Drug Abuse: None Family History: Reviewed & Not Pertinent, CAD, DM, Hypertension, Thyroid Disfunction Patient has suicidal ideation: No Patient has homicidal ideation: No - Past Medical History Cardiac Medical History: Reports: Hx Congestive Heart Failure, Hx Coronary Artery Disease, Hx Heart Attack - 2008, Hx Hypercholesterolemia, Hx Hypertension Pulmonary Medical History: Reports: Hx Asthma, Hx Bronchitis, Hx COPD, Hx Sleep Apnea Neurological Medical History: Reports: Hx Cerebrovascular Accident - x 2. Denies: Hx Seizures Endocrine Medical History: Reports: Hx Diabetes Mellitus Type 1, Hx Diabetes Mellitus Type 2 Renal/ Medical History: Denies: Hx Peritoneal Dialysis Malignancy Medical History: GI Medical History: Reports: Hx Diverticulitis, Hx Gastroesophageal Reflux Disease Musculoskeltal Medical History: Reports Hx Arthritis, Reports Hx Musculoskeletal Deformity, Reports Hx Musculoskeletal Trauma Psychiatric Medical History: Reports: Hx Anxiety, Hx Post Traumatic Stress Disorder Denies: Hx Depression Infectious Medical History: Past Surgical History: Reports: Hx Abdominal Surgery - for diverticulitis, Hx Bowel Surgery - Colon resection due to diverticulitis, Hx Cardiac Catheterization, Hx Cardiac Surgery - 1984, ICD placement 2015, Hx Coronary Artery Bypass Graft, Hx Coronary Stent - 1984, Hx Thyroid Surgery, Other - AICD - Immunizations Immunizations up to date: Yes Hx Diphtheria, Pertussis, Tetanus Vaccination: Yes Hx Pneumococcal Vaccination: 05/26/10 Review of Systems - Review of Systems Constitutional: No symptoms reported EENT: No symptoms reported Cardiovascular: No symptoms reported Respiratory: No symptoms reported Gastrointestinal: No symptoms reported Genitourinary: No symptoms reported Male Genitourinary: No symptoms reported Musculoskeletal: See HPI Skin: No symptoms reported Hematologic/Lymphatic: No symptoms reported Neurological/Psychological: No symptoms reported Physical Exam - Vital signs Vitals: Temp Pulse Resp BP Pulse Ox 98.0 F 108 H 18 121/97 H 95 06/06/17 10:24 06/06/17 10:06/06/17 10:06/06/17 10:06/06/17 10:24 - Notes Notes: PHYSICAL EXAMINATION: GENERAL: Chronically ill-appearing, but in no acute distress. HEAD: Atraumatic, normocephalic. EYES: Pupils equal round and reactive to light, extraocular movements intact, sclera anicteric, conjunctiva are normal. NECK: Normal range of motion, supple without lymphadenopathy LUNGS: CTAB and equal. No wheezes rales or rhonchi. HEART: Regular rate and rhythm without murmurs EXTREMITIES: Tender to bilateral feet, patient jerks away when I try to palpate so unable to truly assess pain to heels of feet, otherwise normal range of motion, no pitting edema. No cyanosis. NEUROLOGICAL: Left-sided weakness and slurred speech that is normal for patient PSYCH: Normal mood, normal affect. SKIN: Warm, Dry, normal turgor, no rashes or lesions noted Course - Re-evaluation Re-evalutation: 06/06/17 19:29 Patient is very happy after he received some food here in the emergency department and was discharged home. - Vital Signs Vital signs: Temp Pulse Resp BP Pulse Ox 98.0 F 108 H 18 121/97 H 95 06/06/17 10:24 06/06/17 10:24 06/06/17 10:24 06/06/17 10:24 06/06/17 10:24 - Laboratory Result Diagrams: 06/06/17 11:50 06/06/17 11:50 Laboratory results interpreted by me: 06/06/17 06/06/17 11:50 11:50 RDW 15.0 H Monocytes % 14.3 H BUN 38 H Creatinine 1.40 H Est GFR (Non-Af Amer) 51 L Glucose 156 H Discharge - Discharge Clinical Impression: Heel spur Qualifiers: Laterality: unspecified laterality Qualified Code(s): M77.30 - Calcaneal spur, unspecified foot Condition: Stable Disposition: HOME, SELF-CARE Additional Instructions: Return immediately for any new or worsening symptoms. Follow up with primary care provider, call tomorrow to make followup appointment.
== END 2017-06-06 15:14 | disposition home or self-care (01) ==
LOC: ER 10:05
DX: M77.30 Calcaneal spur, unspecified foot (principal); R07.9 Chest pain, unspecified; M77.9 Enthesopathy, unspecified; Z87.891 Personal history of nicotine dependence
CPT/HCPCS: 36415; 71045; 80048; 84484; 85025; 93005; 93010; 99284

== ENCOUNTER 2017-07-07 01:24 | Emergency (ER) | payer MEDICARE ==
[2017-07-07] MEDS ORDERED: KETOROLAC TROMETHAMINE 60 MG/2 ML SDV IM ONE (03:25)
--- NOTE | 2017-07-07 03:26 | ER Document Report ---
ED General - General Chief Complaint: Foot Pain Stated Complaint: FOOT PAIN Time Seen by Provider: 07/07/17 03:07 TRAVEL OUTSIDE OF THE [place] IN LAST 30 DAYS: No - HPI Patient complains to provider of: Bilateral foot pain Notes: Patient coming in today complaining of bilateral foot pain. Patient has has a history of heel spurs. Patient states no increase in his activity patient requesting a Toradol shot. Patient originally seen in room 44 upon my initial entrance into the examination room sleeping easily arousable. No other complaints from the patient denies fevers chills nausea vomiting denies any trauma. - Related Data Allergies/Adverse Reactions: captopril [From Capoten] Allergy (Severe, Verified 06/06/17 10:07) Angioedema atorvastatin calcium [From Lipitor] Allergy (Intermediate, Verified 06/06/17 10: 07) Angioedema atorvastatin [From Lipitor] Allergy (Verified 06/06/17 10:07) clopidogrel [From Plavix] Allergy (Verified 06/06/17 10:07) rosuvastatin [From Crestor] Allergy (Verified 06/06/17 10:07) simvastatin [From Zocor] Allergy (Verified 06/06/17 10:07) Angioedema Past Medical History - Social History Smoking Status: Unknown if Ever Smoked Chew tobacco use (# tins/day): No Frequency of alcohol use: None Drug Abuse: None Family History: Reviewed & Not Pertinent, CAD, DM, Hypertension, Thyroid Disfunction Patient has suicidal ideation: No Patient has homicidal ideation: No - Past Medical History Cardiac Medical History: Reports: Hx Congestive Heart Failure, Hx Coronary Artery Disease, Hx Heart Attack - 2008, Hx Hypercholesterolemia, Hx Hypertension Pulmonary Medical History: Reports: Hx Asthma, Hx Bronchitis, Hx COPD, Hx Sleep Apnea Neurological Medical History: Reports: Hx Cerebrovascular Accident - x 2. Denies: Hx Seizures Endocrine Medical History: Reports: Hx Diabetes Mellitus Type 1, Hx Diabetes Mellitus Type 2 Renal/ Medical History: Denies: Hx Peritoneal Dialysis Malignancy Medical History: GI Medical History: Reports: Hx Diverticulitis, Hx Gastroesophageal Reflux Disease Musculoskeltal Medical History: Reports Hx Arthritis, Reports Hx Musculoskeletal Deformity, Reports Hx Musculoskeletal Trauma Psychiatric Medical History: Reports: Hx Anxiety, Hx Post Traumatic Stress Disorder Denies: Hx Depression Infectious Medical History: Past Surgical History: Reports: Hx Abdominal Surgery - for diverticulitis, Hx Bowel Surgery - Colon resection due to diverticulitis, Hx Cardiac Catheterization, Hx Cardiac Surgery - 1984, ICD placement 2015, Hx Coronary Artery Bypass Graft, Hx Coronary Stent - 1984, Hx Thyroid Surgery, Other - AICD - Immunizations Immunizations up to date: Yes Hx Diphtheria, Pertussis, Tetanus Vaccination: Yes Hx Pneumococcal Vaccination: 05/26/10 Review of Systems - Review of Systems Constitutional: No symptoms reported EENT: No symptoms reported Cardiovascular: No symptoms reported Respiratory: No symptoms reported Gastrointestinal: No symptoms reported Genitourinary: No symptoms reported Male Genitourinary: No symptoms reported Musculoskeletal: Other - Bilateral foot pain Skin: No symptoms reported Hematologic/Lymphatic: No symptoms reported Neurological/Psychological: No symptoms reported -: Yes All other systems reviewed and negative Physical Exam - Vital signs Vitals: Temp Pulse Resp BP Pulse Ox 97.9 F 99 20 123/80 95 07/07/17 01:44 07/07/17 01:44 07/07/17 01:44 07/07/17 01:44 07/07/17 01:44 Interpretation: Normal - General General appearance: Appears well, Alert - HEENT Head: Normocephalic, Atraumatic Eyes: Normal Pupils: PERRL - Respiratory Respiratory status: No respiratory distress Chest status: Nontender Breath sounds: Normal Chest palpation: Normal - Cardiovascular Rhythm: Regular Heart sounds: Normal auscultation Murmur: No - Abdominal Inspection: Normal Distension: No distension Bowel sounds: Normal Tenderness: Nontender Organomegaly: No organomegaly - Back Back: Normal, Nontender - Extremities General upper extremity: Normal inspection, Nontender, Normal color, Normal ROM , Normal temperature General lower extremity: Normal inspection, Tender - Tenderness palpation of the plantar area especially around the calcaneus of both feet, Normal color, Normal ROM, Normal temperature, Normal weight bearing. No: Kadi's sign - Neurological Neuro grossly intact: Yes Cognition: Normal Orientation: AAOx4 Beverly Coma Scale Eye Opening: Spontaneous Mgaalis Coma Scale Verbal: Oriented Beverly Coma Scale Motor: Obeys Commands Beverly Coma Scale Total: 15 Speech: Normal Motor strength normal: LUE, RUE, LLE, RLE Sensory: Normal - Psychological Associated symptoms: Normal affect, Normal mood - Skin Skin Temperature: Warm Skin Moisture: Dry Skin Color: Normal Course - Re-evaluation Re-evalutation: 02/12/18 05:49 Patient states history of heel spurs along with any further imaging at this time just requesting a Toradol shot this was given to the patient and he was discharged. 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
[2017-07-07 03:52] VITALS: BP 111/73
== END 2017-07-07 03:53 | disposition home or self-care (01) ==
LOC: ER 01:24
DX: M79.672 Pain in left foot (principal); M79.671 Pain in right foot; I50.9 Heart failure, unspecified; I25.10 Atherosclerotic heart disease of native coronary artery without angina pectoris; I25.2 Old myocardial infarction; E78.00 Pure hypercholesterolemia, unspecified; I10 Essential (primary) hypertension
CPT/HCPCS: 99283; 96372; J1885

== ENCOUNTER 2017-07-07 13:22 | Emergency (ER) | payer MEDICARE ==
[2017-07-07 14:12] VITALS: BP 97/66
[2017-07-07] MEDS ORDERED: IPRATROPIUM/ALBUTEROL 0.5-2.5 MG/3 ML AMPUL NEB ONE (14:36)
--- NOTE | 2017-07-07 14:37 | ER Document Report ---
ED Medical Screen (RME) - General Chief Complaint: Flu Symptoms Stated Complaint: CHEST PAIN Time Seen by Provider: 07/07/17 14:36 Mode of Arrival: Wheelchair Information source: Patient Notes: complains of flu like sx's and sob TRAVEL OUTSIDE OF THE [place] IN LAST 30 DAYS: No - Related Data Allergies/Adverse Reactions: captopril [From Capoten] Allergy (Severe, Verified 07/07/17 13:54) Angioedema atorvastatin calcium [From Lipitor] Allergy (Intermediate, Verified 07/07/17 13: 54) Angioedema atorvastatin [From Lipitor] Allergy (Verified 07/07/17 13:54) clopidogrel [From Plavix] Allergy (Verified 07/07/17 13:54) rosuvastatin [From Crestor] Allergy (Verified 07/07/17 13:54) simvastatin [From Zocor] Allergy (Verified 07/07/17 13:54) Angioedema Past Medical History - Social History Chew tobacco use (# tins/day): No Frequency of alcohol use: None Drug Abuse: None Family history: None - Past Medical History Cardiac Medical History: Reports: Hx Congestive Heart Failure, Hx Coronary Artery Disease, Hx Heart Attack - 2008, Hx Hypercholesterolemia, Hx Hypertension Pulmonary Medical History: Reports: Hx Asthma, Hx Bronchitis, Hx COPD, Hx Sleep Apnea Neurological Medical History: Reports: Hx Cerebrovascular Accident - x 2. Denies: Hx Seizures Endocrine Medical History: Reports: Hx Diabetes Mellitus Type 1, Hx Diabetes Mellitus Type 2 Renal/ Medical History: Denies: Hx Peritoneal Dialysis Malignancy Medical History: GI Medical History: Reports: Hx Diverticulitis, Hx Gastroesophageal Reflux Disease Musculoskeltal Medical History: Reports Hx Arthritis, Reports Hx Musculoskeletal Deformity, Reports Hx Musculoskeletal Trauma Psychiatric Medical History: Reports: Hx Anxiety, Hx Post Traumatic Stress Disorder Denies: Hx Depression Infectious Medical History: Past Surgical History: Reports: Hx Abdominal Surgery - for diverticulitis, Hx Bowel Surgery - Colon resection due to diverticulitis, Hx Cardiac Catheterization, Hx Cardiac Surgery - 1984, ICD placement 2015, Hx Coronary Artery Bypass Graft, Hx Coronary Stent - 1984, Hx Thyroid Surgery, Other - AICD - Immunizations Immunizations up to date: Yes Hx Diphtheria, Pertussis, Tetanus Vaccination: Yes Physical Exam - Vital signs Vitals: Temp Pulse Resp BP Pulse Ox 98.7 F 105 H 16 97/66 L 92 07/07/17 14:11 02/12/18 14:11 07/07/17 14:11 07/07/17 14:11 07/07/17 14:11 Course - Vital Signs Vital signs: Temp Pulse Resp BP Pulse Ox 98.7 F 105 H 16 97/66 L 92 07/07/17 14:11 07/07/17 14:11 07/07/17 14:11 07/07/17 14:11 07/07/17 14:11
--- NOTE | 2017-07-07 15:14 | EKG REPORT ---
SEVERITY:- ABNORMAL ECG - SINUS TACHYCARDIA RIGHT AXIS DEVIATION CONSIDER INFERIOR INFARCT CONSIDER ANTERIOR INFARCT BORDERLINE T WAVE ABNORMALITIES : Confirmed by: Pooja Patel 07-Jul-2017 15:14:15
[2017-07-07 15:25] LABS: ABSOLUTE BASOPHILS # (AUTO) 0.1 10^3/uL (0.0-0.2); ABSOLUTE EOSINOPHILS # (AUTO) 0.2 10^3/uL (0.0-0.6); ABSOLUTE LYMPHOCYTES (AUTO) 0.9 10^3/uL (0.5-4.7); ABSOLUTE MONOCYTES (AUTO) 0.9 10^3/uL (0.1-1.4); ABSOLUTE NEUT (AUTO) 6.6 10^3/uL (1.7-8.2); BASOPHILS % (AUTO) 0.6 % (0-2); EOSINOPHILS % (AUTO) 2.7 % (0-6); HEMOGLOBIN 13.2 g/dL (13.5-17.0); LYMPHOCYTES % (AUTO) 10.8 % (13-45); MEAN CORPUSCULAR HEMOGLOBIN 28.2 pg (27.0-33.4); MEAN CORPUSCULAR VOLUME 86 fl (80-97); MONOCYTES % (AUTO) 10.4 % (3-13); PLATELET COUNT 185 10^3/uL (150-450); RED BLOOD COUNT 4.68 10^6/uL (4.35-5.55); RED CELL DISTRIBUTION WIDTH 15.6 % (11.5-14.0); SEGMENTED NEUTROPHILS % (AUTO) 75.5 % (42-78); TOTAL CELLS COUNTED % (AUTO) 100 %; WHITE BLOOD COUNT 8.8 10^3/uL (4.0-10.5)
[2017-07-07 15:40] LABS: ALANINE AMINOTRANSFERASE 42 U/L (21-72); ALBUMIN 3.9 g/dL (3.5-5.0); ALKALINE PHOSPHATASE 55 U/L (38-126); ANION GAP 12 (5-19); ASPARTATE AMINO TRANSFERASE 30 U/L (17-59); BILIRUBIN,DIRECT 0.4 mg/dL (0.0-0.4); BILIRUBIN,TOTAL 0.6 mg/dL (0.2-1.3); BLOOD UREA NITROGEN 22 mg/dL (7-20); CALCIUM 8.9 mg/dL (8.4-10.2); CARBON DIOXIDE 29 mmol/L (22-30); CHLORIDE 102 mmol/L (98-107); GLUCOSE 104 mg/dL (75-110); POTASSIUM 3.7 mmol/L (3.6-5.0); SODIUM 142.7 mmol/L (137-145); TOTAL PROTEIN 6.5 g/dL (6.3-8.2)
--- NOTE | 2017-07-07 16:03 | RADIOLOGY REPORT (SQ) ---
EXAM DESCRIPTION: CHEST PA/LAT COMPLETED DATE/TIME: 07/07/2017 3:48 pm REASON FOR STUDY: cough/sob COMPARISON: 06/02/2017 NUMBER OF VIEWS: Two views. TECHNIQUE: Frontal and lateral radiographic views of the chest acquired. LIMITATIONS: None. FINDINGS: LUNGS AND PLEURA: No opacities, masses or pneumothorax. No pleural effusion. MEDIASTINUM AND HILAR STRUCTURES: No masses or contour abnormality. HEART AND VASCULAR STRUCTURES: Cardiac enlargement. Vascular congestion. BONES: No acute findings. HARDWARE: Pacemaker defibrillator unchanged. OTHER: No other significant finding. IMPRESSION: CARDIAC ENLARGEMENT. VASCULAR CONGESTION. TECHNICAL DOCUMENTATION: JOB ID: [id number] [facility]- All Rights Reserved
--- NOTE | 2017-07-07 19:16 | ER Document Report ---
ED Flu Like - General Chief Complaint: Flu Symptoms Stated Complaint: CHEST PAIN Time Seen by Provider: 07/07/17 14:36 Mode of Arrival: Wheelchair Notes: The patient is a 61-year-old male, past medical history CHF, asthma, presents with 3 days of nasal congestion, dry cough, vomiting and 1 day of shortness of breath. He did not get the flu shot this year. TRAVEL OUTSIDE OF THE [place] IN LAST 30 DAYS: No - Related Data Allergies/Adverse Reactions: captopril [From Capoten] Allergy (Severe, Verified 07/07/17 13:54) Angioedema atorvastatin calcium [From Lipitor] Allergy (Intermediate, Verified 07/07/17 13: 54) Angioedema atorvastatin [From Lipitor] Allergy (Verified 07/07/17 13:54) clopidogrel [From Plavix] Allergy (Verified 07/07/17 13:54) rosuvastatin [From Crestor] Allergy (Verified 07/07/17 13:54) simvastatin [From Zocor] Allergy (Verified 07/07/17 13:54) Angioedema Past Medical History - General Information source: Patient - Social History Smoking Status: Never Smoker Chew tobacco use (# tins/day): No Frequency of alcohol use: None Drug Abuse: None Family History: Reviewed & Not Pertinent, CAD, DM, Hypertension, Thyroid Disfunction Patient has suicidal ideation: No Patient has homicidal ideation: No - Past Medical History Cardiac Medical History: Reports: Hx Congestive Heart Failure, Hx Coronary Artery Disease, Hx Heart Attack - 2008, Hx Hypercholesterolemia, Hx Hypertension Pulmonary Medical History: Reports: Hx Asthma, Hx Bronchitis, Hx COPD, Hx Sleep Apnea Neurological Medical History: Reports: Hx Cerebrovascular Accident - x 2. Denies: Hx Seizures Endocrine Medical History: Reports: Hx Diabetes Mellitus Type 1, Hx Diabetes Mellitus Type 2 Renal/ Medical History: Denies: Hx Peritoneal Dialysis Malignancy Medical History: GI Medical History: Reports: Hx Diverticulitis, Hx Gastroesophageal Reflux Disease Musculoskeltal Medical History: Reports Hx Arthritis, Reports Hx Musculoskeletal Deformity, Reports Hx Musculoskeletal Trauma Psychiatric Medical History: Reports: Hx Anxiety, Hx Post Traumatic Stress Disorder Denies: Hx Depression Infectious Medical History: Past Surgical History: Reports: Hx Abdominal Surgery - for diverticulitis, Hx Bowel Surgery - Colon resection due to diverticulitis, Hx Cardiac Catheterization, Hx Cardiac Surgery - 1984, ICD placement 2015, Hx Coronary Artery Bypass Graft, Hx Coronary Stent - 1984, Hx Thyroid Surgery, Other - AICD - Immunizations Immunizations up to date: Yes Hx Diphtheria, Pertussis, Tetanus Vaccination: Yes Hx Pneumococcal Vaccination: 05/26/10 Review of Systems - Review of Systems Notes: REVIEW OF SYSTEMS: CONSTITUTIONAL: -fevers, -chills EENT: -eye pain, -difficulty swallowing, -nasal congestion CARDIOVASCULAR: +chest pain, -syncope. RESPIRATORY: +cough, -SOB GASTROINTESTINAL: -abdominal pain, -nausea, +vomiting, -diarrhea GENITOURINARY: -dysuria, -hematuria MUSCULOSKELETAL: -back pain, -neck pain SKIN: -rash or skin lesions. HEMATOLOGIC: -easy bruising or bleeding. LYMPHATIC: -swollen, enlarged glands. NEUROLOGICAL: -altered mental status or loss of consciousness, -headache, - neurologic symptoms PSYCHIATRIC: -anxiety, -depression. ALL OTHER SYSTEMS REVIEWED AND NEGATIVE. Physical Exam - Vital signs Vitals: Temp Pulse Resp BP Pulse Ox 98.7 F 105 H 16 97/66 L 92 07/07/17 14:11 07/07/17 14:11 07/07/17 14:11 07/07/17 14:11 07/07/17 14:11 - Notes Notes: PHYSICAL EXAMINATION: GENERAL: Well-appearing, well-nourished and in no acute distress. HEAD: Atraumatic, normocephalic. EYES: Pupils equal round and reactive to light, extraocular movements intact, sclera anicteric, conjunctiva are normal. ENT: nares patent, oropharynx clear without exudates. Moist mucous membranes. NECK: Normal range of motion, supple without lymphadenopathy LUNGS: No respiratory distress, diffuse wheezing. HEART: Regular rate and rhythm without murmurs ABDOMEN: Soft, nontender, normoactive bowel sounds. No guarding, no rebound. No masses appreciated. EXTREMITIES: Normal range of motion, no pitting or edema. No cyanosis. NEUROLOGICAL: Cranial nerves grossly intact. Normal gait. Normal sensory and motor exams. PSYCH: Normal mood, normal affect. SKIN: Warm, Dry, normal turgor, no rashes or lesions noted. Course - Re-evaluation Re-evalutation: Patient with some wheezing and rales on exam. He appears to be mildly fluid overloaded and may be having mild asthma exacerbation. After breathing treatments and Lasix, he feels much better. He is refusing any steroids because he does not like the way it makes him feel. Will have patient follow- up with his primary care physician for further evaluation and treatment. - Vital Signs Vital signs: Temp Pulse Resp BP Pulse Ox 98.7 F 105 H 16 97/66 L 92 07/07/17 14:11 07/07/17 14:11 07/07/17 14:11 07/07/17 14:11 07/07/17 14:11 - Laboratory Result Diagrams: 07/07/17 15:08 07/07/17 15:08 Laboratory results interpreted by me: 07/07/17 07/07/17 15:08 15:08 Hgb 13.2 L RDW 15.6 H Lymphocytes % 10.8 L BUN 22 H Creatinine 1.87 H Est GFR ( Amer) 44 L Est GFR (Non-Af Amer) 37 L - Diagnostic Test Radiology reviewed: Image reviewed, Reports reviewed Radiology results interpreted by me: CXR: cardiomegaly with vascular congestion - EKG Interpretation by Me EKG shows normal: Sinus rhythm Rate: Tachycardia [place]/QRS: Right axis deviation When compared to previous EKG there are: No significant change Discharge - Discharge Clinical Impression: Dyspnea Qualifiers: Dyspnea type: unspecified Qualified Code(s): R06.00 - Dyspnea, unspecified Condition: Stable Additional Instructions: SHORTNESS OF BREATH OR DYSPNEA: You were evaluated for shortness of breath, or dyspnea. Dyspnea has many causes, and some are more serious than others. Sometimes it's impossible to diagnose the cause of dyspnea with the tests that are available on an emergency basis. Based on our evaluation today, you do not need hospitalization now. We found no evidence of pneumonia, collapsed lung, blood clots in the lung, tumors , or heart failure. Causes of non-specific dyspnea can include asthma or bronchospasm, hyperventilation, emotional distress, heart disease, emphysema, fibrosis of the lung, and stiffness of the chest wall. In healthy individuals with a single episode, it's sometimes reasonable to do nothing but wait to see if the problem occurs again. Additional tests used to evaluate dyspnea can include cardiac stress testing, echocardiography, pulmonary function testing, CAT scan of the chest, bronchoscopy or pulmonary biopsy. Return if shortness of breath persists or worsens, or if you develop chest pain, fever, cough, confusion, or fainting. FOLLOW-UP CARE: If you have been referred to a physician for follow-up care, call the physician s office for an appointment as you were instructed or within the next two days. If you experience worsening or a significant change in your symptoms, notify the physician immediately or return to the Emergency Department at any time for re-evaluation. Prescriptions: Albuterol Sulfate [Proair HFA Inhalation Aerosol 8.5 gm MDI] 2 puff IH Q4H PRN # 1 mdi PRN Reason: Referrals: [facility] [Outside] - Follow up as needed
[2017-07-07] MEDS ORDERED: PREDNISONE 20 MG TABLET PO ONE (19:37)
[2017-07-07] MEDS ORDERED: FUROSEMIDE 40 MG TABLET PO ONE (21:10)
== END 2017-07-07 22:45 | disposition home or self-care (01) ==
LOC: ER 13:22
DX: R06.00 Dyspnea, unspecified (principal); R07.9 Chest pain, unspecified; I50.9 Heart failure, unspecified; J45.909 Unspecified asthma, uncomplicated; R09.81 Nasal congestion; R05 Cough; R11.10 Vomiting, unspecified; I25.2 Old myocardial infarction; I10 Essential (primary) hypertension; E78.00 Pure hypercholesterolemia, unspecified; I25.10 Atherosclerotic heart disease of native coronary artery without angina pectoris
CPT/HCPCS: 93005; 99284; 36415; 85025; 80053; 84484; 71046; 93010; A9270

== ENCOUNTER 2017-07-08 03:10 | Emergency (ER) | payer MEDICARE ==
[2017-07-08 03:38] VITALS: BP 132/87
[2017-07-08] MEDS ORDERED: ONDANSETRON 4 MG TAB.RAPDIS PO ONE (04:32)
--- NOTE | 2017-07-08 04:33 | ER Document Report ---
ED General - General Chief Complaint: Nausea Stated Complaint: NAUSEA Time Seen by Provider: 07/08/17 04:26 Notes: Patient is a 61-year-old male comes emergency department by EMS for chief complaint of nausea. He states he took his medicines on an empty stomach and it made her nauseated. He denies any nausea now but states he wants something for nausea. He did not vomit, he has not had any fevers, he was fully evaluated including blood work, 2 cardiac enzymes, chest x-ray, EKG just a few hours ago before being discharged home. This is his third visit today. TRAVEL OUTSIDE OF THE [place] IN LAST 30 DAYS: No - Related Data Allergies/Adverse Reactions: captopril [From Capoten] Allergy (Severe, Verified 07/07/17 13:54) Angioedema atorvastatin calcium [From Lipitor] Allergy (Intermediate, Verified 07/07/17 13: 54) Angioedema atorvastatin [From Lipitor] Allergy (Verified 07/07/17 13:54) clopidogrel [From Plavix] Allergy (Verified 07/07/17 13:54) rosuvastatin [From Crestor] Allergy (Verified 07/07/17 13:54) simvastatin [From Zocor] Allergy (Verified 07/07/17 13:54) Angioedema Past Medical History - General Information source: Patient - Social History Smoking Status: Never Smoker Frequency of alcohol use: None Drug Abuse: None Lives with: Alone Family History: Reviewed & Not Pertinent, CAD, DM, Hypertension, Thyroid Disfunction - Past Medical History Cardiac Medical History: Reports: Hx Congestive Heart Failure, Hx Coronary Artery Disease, Hx Heart Attack - 2009, Hx Hypercholesterolemia, Hx Hypertension Pulmonary Medical History: Reports: Hx Asthma, Hx Bronchitis, Hx COPD, Hx Sleep Apnea Neurological Medical History: Reports: Hx Cerebrovascular Accident - x 2. Denies: Hx Seizures Endocrine Medical History: Reports: Hx Diabetes Mellitus Type 1, Hx Diabetes Mellitus Type 2 Renal/ Medical History: Denies: Hx Peritoneal Dialysis Malignancy Medical History: GI Medical History: Reports: Hx Diverticulitis, Hx Gastroesophageal Reflux Disease Musculoskeltal Medical History: Reports Hx Arthritis, Reports Hx Musculoskeletal Deformity, Reports Hx Musculoskeletal Trauma Psychiatric Medical History: Reports: Hx Anxiety, Hx Post Traumatic Stress Disorder Denies: Hx Depression Infectious Medical History: Past Surgical History: Reports: Hx Abdominal Surgery - for diverticulitis, Hx Bowel Surgery - Colon resection due to diverticulitis, Hx Cardiac Catheterization, Hx Cardiac Surgery - 1984, ICD placement 2015, Hx Coronary Artery Bypass Graft, Hx Coronary Stent - 1984, Hx Thyroid Surgery, Other - AICD - Immunizations Immunizations up to date: Yes Hx Diphtheria, Pertussis, Tetanus Vaccination: Yes Hx Pneumococcal Vaccination: 05/26/10 Review of Systems - Review of Systems Constitutional: No symptoms reported EENT: No symptoms reported Cardiovascular: No symptoms reported Respiratory: See HPI Gastrointestinal: See HPI Genitourinary: No symptoms reported Male Genitourinary: No symptoms reported Musculoskeletal: No symptoms reported Skin: No symptoms reported Hematologic/Lymphatic: No symptoms reported Neurological/Psychological: No symptoms reported Physical Exam - Vital signs Vitals: Temp Pulse Resp BP Pulse Ox 98.1 F 99 18 132/87 H 98 07/08/17 03:38 07/08/17 03:38 07/08/17 03:38 07/08/17 03:38 07/08/17 03:38 Interpretation: Normal - General General appearance: Appears well, Alert In distress: None - HEENT Head: Normocephalic, Atraumatic Eyes: Normal Pupils: PERRL - Respiratory Respiratory status: No respiratory distress. No: Labored, Tachypnea Chest status: Nontender Breath sounds: Normal. No: Decreased air movement, Nonproductive cough, Productive cough, Wheezing Chest palpation: Normal - Cardiovascular Rhythm: Regular. No: Tachycardia Heart sounds: Normal auscultation, S1 appreciated, S2 appreciated Murmur: No - Abdominal Inspection: Normal Distension: No distension Bowel sounds: Normal Tenderness: Nontender. No: Tender, Guarding Organomegaly: No organomegaly - Back Back: Normal, Nontender - Extremities General upper extremity: Normal inspection, Nontender, Normal color, Normal ROM , Normal temperature General lower extremity: Normal inspection, Nontender, Normal color, Normal ROM , Normal temperature, Normal weight bearing. No: Kadi's sign - Neurological Neuro grossly intact: Yes Cognition: Normal Orientation: AAOx4 Hollywood Coma Scale Eye Opening: Spontaneous [place] Coma Scale Verbal: Oriented [place] Coma Scale Motor: Obeys Commands Hollywood Coma Scale Total: 15 Speech: Normal Motor strength normal: LUE, RUE, LLE, RLE Sensory: Normal - Psychological Associated symptoms: Normal affect, Normal mood - Skin Skin Temperature: Warm Skin Moisture: Dry Skin Color: Normal Course - Re-evaluation Re-evalutation: Patient irritable but well-appearing, clear lungs, soft abdomen, unremarkable vital signs. He suddenly started yelling that he could not breathe, stated he needed oxygen, nasal cannula was placed, I had not turned the oxygen on yet when he stated that his breathing was much better and he felt much better. I did not feel the need to turn on the oxygen. His oxygen saturation is normal. I informed patient of this and he stopped complaining that he cannot breathe. Oxygen cannula was removed. Patient took Zofran, states he feels good on reexamination. No current complaints. He just had a complete workup with no remarkable findings, very vague complaints, well-appearing. I asked if there is anything wrong at home that he needed to tell me about, he denies this. He states he needs a ride home. Patient discharged. - Vital Signs Vital signs: Temp Pulse Resp BP Pulse Ox 98.1 F 99 18 132/87 H 98 07/08/17 03:38 07/08/17 03:38 07/08/17 03:38 07/08/17 03:38 07/08/17 03:38 Discharge - Discharge Clinical Impression: Nausea Condition: Stable Disposition: HOME, SELF-CARE Additional Instructions: Take your medications as directed. Take the given zofran from [facility] if needed for nausea. Follow up with your Provider closely as discussed earlier today. Return to the ED for any concerning or worsening symptoms.
[2017-07-08] MEDS ORDERED: ONDANSETRON ODT 4 MG TAB (6 TAB/ER DISP) PO PRN (05:05)
== END 2017-07-08 08:44 | disposition home or self-care (01) ==
LOC: ER 03:10
DX: R11.0 Nausea (principal); J44.9 Chronic obstructive pulmonary disease, unspecified; I10 Essential (primary) hypertension; I25.10 Atherosclerotic heart disease of native coronary artery without angina pectoris; I25.2 Old myocardial infarction; E11.9 Type 2 diabetes mellitus without complications; Z87.19 Personal history of other diseases of the digestive system; Z90.49 Acquired absence of other specified parts of digestive tract; Z88.8 Allergy status to other drugs, medicaments and biological substances
CPT/HCPCS: 99283; A9270 ×2; S0119

== ENCOUNTER 2017-07-12 00:43 | Emergency (ER) | payer MEDICARE ==
[2017-07-12 00:51] VITALS: BP 113/88
--- NOTE | 2017-07-12 02:41 | ER Document Report ---
ED General - General Chief Complaint: Foot Pain Stated Complaint: FOOT PAIN Time Seen by Provider: 07/12/17 02:22 Notes: Patient is a 61-year-old male who presents with complaints of painful heel spurs. He was diagnosed with her spurs a while ago and has continued of pain from them. He says Toradol usually helps. I did review the patient's previous records unfortunately his creatinine is been uptrending over last month therefore do not think Toradol is appropriate. Patient denies any new injuries. He denies seeing a cutlet maker pork. He denies any fevers or redness or swelling to the feet that is new. He denies history of diabetes. He has no other complaints at this time. TRAVEL OUTSIDE OF THE [place] IN LAST 30 DAYS: No - Related Data Allergies/Adverse Reactions: captopril [From Capoten] Allergy (Severe, Verified 07/07/17 13:54) Angioedema atorvastatin calcium [From Lipitor] Allergy (Intermediate, Verified 07/07/17 13: 54) Angioedema atorvastatin [From Lipitor] Allergy (Verified 07/07/17 13:54) clopidogrel [From Plavix] Allergy (Verified 07/07/17 13:54) rosuvastatin [From Crestor] Allergy (Verified 07/07/17 13:54) simvastatin [From Zocor] Allergy (Verified 07/07/17 13:54) Angioedema Past Medical History - Social History Smoking Status: Unknown if Ever Smoked Frequency of alcohol use: None Drug Abuse: None Family History: Reviewed & Not Pertinent, CAD, DM, Hypertension, Thyroid Disfunction Patient has suicidal ideation: No Patient has homicidal ideation: No - Past Medical History Cardiac Medical History: Reports: Hx Congestive Heart Failure, Hx Coronary Artery Disease, Hx Heart Attack - 2009, Hx Hypercholesterolemia, Hx Hypertension Pulmonary Medical History: Reports: Hx Asthma, Hx Bronchitis, Hx COPD, Hx Sleep Apnea Neurological Medical History: Reports: Hx Cerebrovascular Accident - x 2. Denies: Hx Seizures Endocrine Medical History: Reports: Hx Diabetes Mellitus Type 1, Hx Diabetes Mellitus Type 2 Renal/ Medical History: Denies: Hx Peritoneal Dialysis Malignancy Medical History: GI Medical History: Reports: Hx Diverticulitis, Hx Gastroesophageal Reflux Disease Musculoskeltal Medical History: Reports Hx Arthritis, Reports Hx Musculoskeletal Deformity, Reports Hx Musculoskeletal Trauma Psychiatric Medical History: Reports: Hx Anxiety, Hx Post Traumatic Stress Disorder Denies: Hx Depression Infectious Medical History: Past Surgical History: Reports: Hx Abdominal Surgery - for diverticulitis, Hx Bowel Surgery - Colon resection due to diverticulitis, Hx Cardiac Catheterization, Hx Cardiac Surgery - 1984, ICD placement 2015, Hx Coronary Artery Bypass Graft, Hx Coronary Stent - 1984, Hx Thyroid Surgery, Other - AICD - Immunizations Immunizations up to date: Yes Hx Diphtheria, Pertussis, Tetanus Vaccination: Yes Hx Pneumococcal Vaccination: 05/26/10 Review of Systems - Review of Systems Notes: My Normal Review Basic REVIEW OF SYSTEMS: CONSTITUTIONAL : Denies fever, chills, or sweats. Denies recent illness. EENT: Denies eye, ear, throat, or mouth pain or symptoms. Denies nasal or sinus congestion. RESPIRATORY: Denies cough, cold, or chest congestion. Denies shortness of breath, difficulty breathing, or wheezing. MUSCULOSKELETAL: Pain over feet. SKIN: Denies rash or skin lesions. NEUROLOGICAL: Denies altered mental status or loss of consciousness. Denies headache. Denies weakness or paralysis or loss of use of either side. Denies problems with gait or speech. Denies sensory or motor loss. ALL OTHER SYSTEMS REVIEWED AND NEGATIVE. Physical Exam - Vital signs Vitals: Temp Pulse Resp BP Pulse Ox 97.7 F 103 H 18 113/88 H 97 07/12/17 00:45 07/12/17 00:45 07/12/17 00:45 07/12/17 00:45 07/12/17 00:45 - Notes Notes: General Appearance: Well nourished, alert, cooperative, no acute distress, mild obvious discomfort. Vitals: reviewed, See vital signs table. Extremities: strength 5/5 in all extremities, good pulses in all extremities, she does have some tenderness palpation over the heels of both feet. The feet are not red or significantly swollen. No evidence of new trauma. Skin: warm, dry, appropriate color, no rash Neuro: speech clear, oriented x 3, normal affect, responds appropriately to questions. Course - Re-evaluation Re-evalutation: 07/13/17 06:37 Patient has no acute concerning findings on his feet. He has pain is chronic and related to heel spurs per his history. I do not see anything on exam that would suggest that his pain is caused by anything else. I explained to him that he cannot receive Toradol because his most recent creatinine was 1.87. I referred him to a cutlet maker pork. I informed him to return to ER if he has worsening pain, swelling, fevers, or feels unwell. Patient encouraged to take Tylenol for his pain as well. I did write a prescription for a few Ultram tablets I told him he can take at nighttime to help with the pain so he can sleep. I informed him he should not take this during the day because they will make him a little bit sleepy. Patient shows agreement to this and agrees to follow-up with cutlet maker pork. Dictation of this chart was performed using voice recognition software; therefore, there may be some unintended grammatical errors. - Vital Signs Vital signs: Temp Pulse Resp BP Pulse Ox 97.7 F 103 H 18 113/88 H 97 07/12/17 00:45 07/12/17 00:45 07/12/17 00:45 07/12/17 00:45 07/12/17 00:45 Discharge - Discharge Clinical Impression: Foot pain Qualifiers: Laterality: bilateral Qualified Code(s): M79.671 - Pain in right foot Condition: Good Disposition: HOME, SELF-CARE Additional Instructions: Please do not drive when taking the prescribed pain medication (Ultram). Please follow up with the cutlet maker pork for further treatment options in regards to your foot pain. Prescriptions: Tramadol HCl [Ultram 50 mg Tablet] 50 mg PO Q6HP PRN #10 tablet PRN Reason: Referrals: CHARLENE ABAD DPM [ACTIVE STAFF] - Follow up in 3-5 days
== END 2017-07-12 02:58 | disposition home or self-care (01) ==
LOC: ER 00:43
DX: M79.671 Pain in right foot (principal); M79.672 Pain in left foot; E11.9 Type 2 diabetes mellitus without complications; I11.0 Hypertensive heart disease with heart failure; I50.9 Heart failure, unspecified; E78.00 Pure hypercholesterolemia, unspecified; Z95.1 Presence of aortocoronary bypass graft; Z95.810 Presence of automatic (implantable) cardiac defibrillator; I25.2 Old myocardial infarction
CPT/HCPCS: 99283

== ENCOUNTER 2017-07-13 14:50 | Emergency (ER) | payer MEDICARE ==
--- NOTE | 2017-07-13 15:17 | ER Document Report ---
ED Medical Screen (RME) - General Chief Complaint: S/S of Possible Stroke Stated Complaint: DIFFICULTY BREATHING Time Seen by Provider: 07/13/17 14:52 Mode of Arrival: Wheelchair Information source: Patient Notes: 61-year-old male history of CVA presents with complaints of shortness of breath. Concerns for another stroke. Patient has been seen here multiple times in the past week with similar complaints I have greeted and performed a rapid initial assessment of this patient. A comprehensive ED assessment and evaluation of the patient, analysis of test results and completion of the medical decision making process will be conducted by additional ED providers. PHYSICAL EXAMINATION: GENERAL: Baseline mentation HEAD: Atraumatic, normocephalic. EYES: Pupils equal round extraocular movements intact, conjunctiva are normal. ENT: Nares patent NECK: Normal range of motion LUNGS: No respiratory distress Musculoskeletal: Normal range of motion NEUROLOGICAL: baseline speech, PSYCH: Normal mood, normal affect. SKIN: Warm, Dry, normal turgor, no rashes or lesions noted. TRAVEL OUTSIDE OF THE [place] IN LAST 30 DAYS: No - Related Data Allergies/Adverse Reactions: captopril [From Capoten] Allergy (Severe, Verified 07/13/17 14:56) Angioedema atorvastatin calcium [From Lipitor] Allergy (Intermediate, Verified 07/13/17 14: 56) Angioedema atorvastatin [From Lipitor] Allergy (Verified 07/13/17 14:56) clopidogrel [From Plavix] Allergy (Verified 07/13/17 14:56) rosuvastatin [From Crestor] Allergy (Verified 07/13/17 14:56) simvastatin [From Zocor] Allergy (Verified 07/13/17 14:56) Angioedema Past Medical History - Social History Family history: None - Past Medical History Cardiac Medical History: Reports: Hx Congestive Heart Failure, Hx Coronary Artery Disease, Hx Heart Attack - 2009, Hx Hypercholesterolemia, Hx Hypertension Pulmonary Medical History: Reports: Hx Asthma, Hx Bronchitis, Hx COPD, Hx Sleep Apnea Neurological Medical History: Reports: Hx Cerebrovascular Accident - x 2. Denies: Hx Seizures Endocrine Medical History: Reports: Hx Diabetes Mellitus Type 1, Hx Diabetes Mellitus Type 2 Renal/ Medical History: Denies: Hx Peritoneal Dialysis Malignancy Medical History: GI Medical History: Reports: Hx Diverticulitis, Hx Gastroesophageal Reflux Disease Musculoskeltal Medical History: Reports Hx Arthritis, Reports Hx Musculoskeletal Deformity, Reports Hx Musculoskeletal Trauma Psychiatric Medical History: Reports: Hx Anxiety, Hx Post Traumatic Stress Disorder Denies: Hx Depression Infectious Medical History: Past Surgical History: Reports: Hx Abdominal Surgery - for diverticulitis, Hx Bowel Surgery - Colon resection due to diverticulitis, Hx Cardiac Catheterization, Hx Cardiac Surgery - 1984, ICD placement 2015, Hx Coronary Artery Bypass Graft, Hx Coronary Stent - 1984, Hx Thyroid Surgery, Other - AICD - Immunizations Immunizations up to date: Yes Hx Diphtheria, Pertussis, Tetanus Vaccination: Yes Physical Exam - Vital signs Vitals: Temp Pulse Resp BP Pulse Ox 98.1 F 108 H 22 H 144/114 H 89 L 07/13/17 14:55 07/13/17 14:55 07/13/17 14:55 07/13/17 14:55 07/13/17 14:55 Course - Vital Signs Vital signs: Temp Pulse Resp BP Pulse Ox 98.1 F 108 H 22 H 144/114 H 89 L 07/13/17 14:55 07/13/17 14:55 07/13/17 14:55 07/13/17 14:55 07/13/17 14:55
--- NOTE | 2017-07-13 16:07 | RADIOLOGY REPORT (SQ) ---
EXAM DESCRIPTION: CT HEAD WITHOUT COMPLETED DATE/TIME: 07/13/2017 3:56 pm REASON FOR STUDY: hx cva COMPARISON: None. TECHNIQUE: Axial images acquired through the brain without intravenous contrast. Images reviewed wi th bone, brain and subdural windows. Images stored on PACS. All CT scanners at this facility use dose modulation, iterative reconstruction, and/or weight based d osing when appropriate to reduce radiation dose to as low as reasonably achievable (ALARA). [facility]: Dose Right [facility]: CareDose [facility]: Dose Right [facility]: Teradose 4D [facility]: Avanzit RADIATION DOSE: CT Rad equipment meets quality standard of care and radiation dose reduction techniq ues were employed. CTDIvol: 64.6 mGy. DLP: 1034 mGy-cm. mGy. LIMITATIONS: None. FINDINGS: VENTRICLES: Normal size and contour. CEREBRUM: No masses. No hemorrhage. No midline shift. No evidence for acute infarction. Multifocal areas of bilateral cerebral infarct, stable appearance. CEREBELLUM: No masses. No hemorrhage. No alteration of density. No evidence for acute infarction. EXTRAAXIAL SPACES: No fluid collections. No masses. ORBITS AND GLOBE: No intra- or extraconal masses. Normal contour of globe without masses. CALVARIUM: No fracture. PARANASAL SINUSES: No fluid or mucosal thickening. SOFT TISSUES: No mass or hematoma. OTHER: No other significant finding. IMPRESSION: Chronic changes. Old areas of bilateral cerebral infarct. No acute infarct or hemorrha ge evident. EVIDENCE OF ACUTE STROKE: NO. COMMENT: Quality ID # [id number]: Final reports with documentation of one or more dose reduction techniques (e.g., Automated exposure control, adjustment of the mA and/or kV according to patient size, use of iterative reconstruction technique) TECHNICAL DOCUMENTATION: JOB ID: [id number] [employer]- All Rights Reserved
--- NOTE | 2017-07-13 16:10 | RADIOLOGY REPORT (SQ) ---
EXAM DESCRIPTION: CHEST SINGLE VIEW COMPLETED DATE/TIME: 07/13/2017 3:57 pm REASON FOR STUDY: sob COMPARISON: 07/07/2017. NUMBER OF VIEWS: One view. TECHNIQUE: Single frontal radiographic view of the chest acquired. LIMITATIONS: None. FINDINGS: LUNGS AND PLEURA: No opacities, masses or pneumothorax. No pleural effusion. MEDIASTINUM AND HILAR STRUCTURES: No masses. Contour normal. HEART AND VASCULAR STRUCTURES: Heart enlarged without failure. Normal vasculature. BONES: No acute findings. HARDWARE: Single lead cardiac device, unchanged. OTHER: No other significant finding. IMPRESSION: HEART ENLARGED WITHOUT FAILURE. NO OTHER SIGNIFICANT RADIOGRAPHIC FINDING IN THE CHEST. TECHNICAL DOCUMENTATION: JOB ID: [id number] [employer]- All Rights Reserved
--- NOTE | 2017-07-13 16:17 | ER Document Report ---
ED General <SHANTELLDAXISAAC - Last Filed: 07/14/17 05:32> <DAISY BUSTILLOS Cameron - Last Filed: 07/14/17 05:42> - General Mode of Arrival: Wheelchair Information source: Patient TRAVEL OUTSIDE OF THE [place] IN LAST 30 DAYS: No <STORMY WARE Anmol - Last Filed: 07/15/17 10:26> - General Chief Complaint: Shortness Of Breath Stated Complaint: DIFFICULTY BREATHING Time Seen by Provider: 07/13/17 14:52 - HPI Notes: 61-year-old male with a history of CVA with expressive aphasia, CAD, type II diabetic, hypertension, sleep apnea, obesity, GERD, diverticulitis presents today with complaints of shortness of breath, difficulty breathing and feels like he is having another stroke when he was [place], because of the shortness of breath approx 5 hours ago, but denied this when this provider interviewed him. denies any numbness or tingling down bilateral upper or lower extremities. D, double denies any recent trauma. Patient had a right-sided CVA and 01/2015. Denies fevers, chills, chest pain, nausea, vomiting, diarrhea, abdominal pain, hematuria, testicular pain, blurred vision, double vision, loss of vision, syncope, headaches, neck pain, weakness, bowel or bladder dysfunction, saddle anesthesia or rash onset of his symptoms 5 hours ago. Patient has been seen 5 times since the ER for various issues (STORMY WARE) - Related Data Allergies/Adverse Reactions: captopril [From Capoten] Allergy (Severe, Verified 07/13/17 14:56) Angioedema atorvastatin calcium [From Lipitor] Allergy (Intermediate, Verified 07/13/17 14: 56) Angioedema atorvastatin [From Lipitor] Allergy (Verified 07/13/17 14:56) clopidogrel [From Plavix] Allergy (Verified 07/13/17 14:56) rosuvastatin [From Crestor] Allergy (Verified 07/13/17 14:56) simvastatin [From Zocor] Allergy (Verified 07/13/17 14:56) Angioedema Past Medical History - General Information source: Patient - Social History Smoking Status: Unknown if Ever Smoked Family History: Reviewed & Not Pertinent, CAD, DM, Hypertension, Thyroid Disfunction - Past Medical History Cardiac Medical History: Reports: Hx Congestive Heart Failure, Hx Coronary Artery Disease, Hx Heart Attack - 2009, Hx Hypercholesterolemia, Hx Hypertension Pulmonary Medical History: Reports: Hx Asthma, Hx Bronchitis, Hx COPD, Hx Sleep Apnea Neurological Medical History: Reports: Hx Cerebrovascular Accident - x 2. Denies: Hx Seizures Endocrine Medical History: Reports: Hx Diabetes Mellitus Type 1, Hx Diabetes Mellitus Type 2 Renal/ Medical History: Denies: Hx Peritoneal Dialysis Malignancy Medical History: GI Medical History: Reports: Hx Diverticulitis, Hx Gastroesophageal Reflux Disease Musculoskeltal Medical History: Reports Hx Arthritis, Reports Hx Musculoskeletal Deformity, Reports Hx Musculoskeletal Trauma Psychiatric Medical History: Reports: Hx Anxiety, Hx Post Traumatic Stress Disorder Denies: Hx Depression Infectious Medical History: Past Surgical History: Reports: Hx Abdominal Surgery - for diverticulitis, Hx Bowel Surgery - Colon resection due to diverticulitis, Hx Cardiac Catheterization, Hx Cardiac Surgery - 1984, ICD placement 2015, Hx Coronary Artery Bypass Graft, Hx Coronary Stent - 1984, Hx Thyroid Surgery, Other - AICD - Immunizations Immunizations up to date: Yes Hx Diphtheria, Pertussis, Tetanus Vaccination: Yes Hx Pneumococcal Vaccination: 05/26/10 <STORMY WARE A - Last Filed: 07/15/17 10:26> Review of Systems - Review of Systems Constitutional: No symptoms reported EENT: No symptoms reported Cardiovascular: No symptoms reported Respiratory: See HPI Gastrointestinal: No symptoms reported Genitourinary: No symptoms reported Male Genitourinary: No symptoms reported Musculoskeletal: No symptoms reported Skin: No symptoms reported Hematologic/Lymphatic: No symptoms reported Neurological/Psychological: No symptoms reported <STORMY WARE A - Last Filed: 07/15/17 10:26> Physical Exam <ISAAC JONES - Last Filed: 07/14/17 05:32> <DAISY BUSTILLOS V - Last Filed: 07/14/17 05:42> <STORMY WARE - Last Filed: 07/15/17 10:26> - Vital signs Vitals: Temp Pulse Resp BP Pulse Ox 98.1 F 108 H 22 H 144/114 H 89 L 07/13/17 14:55 07/13/17 14:55 07/13/17 14:55 07/13/17 14:55 07/13/17 14:55 - Notes Notes: PHYSICAL EXAMINATION: GENERAL: healthy appearing male in moderate respiratory distress HEAD: Atraumatic, normocephalic. EYES: Pupils equal round and reactive to light, extraocular movements intact, sclera anicteric, conjunctiva are normal. ENT: Nares patent, oropharynx clear without exudates. Moist mucous membranes. NECK: Normal range of motion, supple without lymphadenopathy LUNGS: Decreased air exchange bilaterally. Accessory muscle use. Diffuse wheezing. No rales or rhonchi HEART: NSR without murmurs ABDOMEN: Soft, nontender, nondistended abdomen. No guarding, no rebound. No masses appreciated. Musculoskeletal: Normal range of motion, no pitting or edema. No cyanosis. NEUROLOGICAL: Cranial nerves grossly intact. Normal speech, normal gait. Normal sensory, motor exams PSYCH: Normal mood, normal affect. SKIN: Warm, Dry, normal turgor, no rashes or lesions noted.. (STORMY WARE) Course - Laboratory Result Diagrams: 07/13/17 16:25 07/14/17 02:54 - Diagnostic Test Radiology reviewed: Image reviewed, Reports reviewed <ISAAC JONES - Last Filed: 07/14/17 05:32> - Laboratory Result Diagrams: 07/13/17 16:25 07/14/17 02:54 <DAISY BUSTILLOS V - Last Filed: 07/14/17 05:42> - Laboratory Result Diagrams: 07/13/17 16:25 07/14/17 02:54 - EKG Interpretation by Me EKG shows normal: Sinus rhythm Rate: Tachycardia Voltage: Consistant with LVH, Decreased voltage <STORMY WARE - Last Filed: 07/15/17 10:26> - Re-evaluation Re-evalutation: 07/14/17 05:08 This 61-year-old male was presented to ED for shortness of breath, difficulty breathing and feeling like he was having a stroke-like he has had in the past. This patient is frequently in the emergency room stating that he feels like he is having a stroke he has not had one since January 2015. He denies any fevers chills chest pains nausea vomiting or diarrhea. When I examined the patient at 1820 he was minimally short of breath sitting up speaking in his normal speech. When I reviewed his CT from the head with no acute changes chest x-ray showed enlarged heart but no significant changes his chemistry was unchanged except for he had an BNP 3620. This was higher than he has ever had in the past. Lasix was ordered by Stormy Reyez NP before I took over the patient. Patient had a good output from Lasix. BMP repeated after the Lasix and it was 3910. Patient became more short of breath and was given DuoNeb albuterol and a repeat dose of Lasix. Because first chemistry showed a potassium of 3.7 before the first Lasix patient was ordered potassium 40 mEq K rider. When the BMP was repeated potassium was 4.4 before the potassium and before the second Lasix and albuterol. Potassium was stopped after the first 20 mEq.. Patient stable with a pulse ox of 96-98% on room air pulse between 88 and 96 blood pressure 120/88. Patient respirations are much less labored lungs are much clearer. (ISAAC JONES) 07/14/17 05:44 61-year-old male presented today here for evaluation of shortness of breath as well as dyspnea. Patient does have history of heart failure with prior multiple visits to emergency department for evaluation of the same. Today patient was found to have elevated BNP levels more than normal. Patient also had x-ray without any fluid overload but noted pulmonary congestion. Patient was given duo nebs for his bilateral wheezing in his lungs as well as Lasix to facilitate his diuresis. Patient had improvement of his symptoms with good urine output. Patient also had replacement of his potassium with IV potassium rider. Patient had improvement of his symptoms and was discharged in stable condition. Patient had never required oxygen. His blood pressure was maintained well with systolics 120s. Patient was discharged in stable condition after diuresis as well as management of his COPD. (DAISY BUSTILLOS V) 07/13/17 1515: Patient is stable, in no distress. Vitals stable. Patient is complaining of shortness of breath. Patient patient is neurologically stable at his baseline. Awaiting laboratory and chest x-ray results. CT head negative for any acute findings per radiology. 1700 On re-exam, pt is resting comfortably breathing treatment given with some relief. Patient is awake and alert and oriented, in no distress. On life manager, normal sinus rhythm Labs hemolyzed, waiting for redraw. 0- Rechecked the patient who is resting comfortably. Chest x-ray does not show any fluid overload and pulmonary congestion. Patient is awake and alert and oriented, in no distress. On life manager, normal sinus rhythm. 1839- Still awaiting on laboratory findings of BNP. 1899-BNP elevated, will give 40 mg IV Lasix now. Patient is resting, comfortable, in no distress. Disposition given to RYAN Jimenez at 1909 (STORMY WARE) - Vital Signs Vital signs: Temp Pulse Resp BP Pulse Ox 98.1 F 108 H 19 120/88 H 92 07/13/17 14:55 07/13/17 14:55 07/14/17 05:01 07/14/17 05:01 07/14/17 04:01 - Laboratory Laboratory results interpreted by me: 07/13/17 07/13/17 07/13/17 16:25 18:07 18:07 Hgb 12.6 L Hct 37.7 L RDW 16.0 H Monocytes % 16.3 H BUN Glucose 116 H Direct Bilirubin 0.5 H NT-Pro-B Natriuret Pep 3620 H 07/14/17 07/14/17 01:30 02:54 Hgb Hct RDW Monocytes % BUN 21 H Glucose 151 H Direct Bilirubin NT-Pro-B Natriuret Pep 3910 H Discharge <ISAAC JONES - Last Filed: 07/14/17 05:32> <DAISY BUSTILLOS V - Last Filed: 07/14/17 05:42> <STORMY WARE - Last Filed: 07/15/17 10:26> - Discharge Clinical Impression: Dyspnea, COPD exacerbation Congestive heart failure Qualifiers: Heart failure type: unspecified Heart failure chronicity: acute on chronic Qualified Code(s): I50.9 - Heart failure, unspecified Condition: Stable Disposition: HOME, SELF-CARE Additional Instructions: Congestive Heart Failure You have been diagnosed as having congestive heart failure (CHF). CHF occurs when the heart is unable to pump blood efficiently, leading to fluid buildup in the veins and lungs. Typical symptoms are swelling of the legs, shortness of breath on minor exertion, and fatigue. CHF is treated with salt restriction, medicine to eliminate excess water and salt from the body, and medication to help the heart contract more efficiently. Eliminate added salt and salty foods in your diet. Decrease your activity until excess fluid has been eliminated. It will also be helpful to raise the head of your bed so you can sleep more easily. Keep a daily record of your weight. This will help your physician monitor your progress. Once extra water has been eliminated, light aerobic exercise daily -- such as walking -- will be helpful (unless your physician has told you to restrict activity for other reasons). Be sure to follow up with the physician as instructed. Contact the doctor at once if you worsen in any way. Chronic Obstructive Lung Disease You have chronic obstructive lung disease (COPD). The symptoms come from emphysema (damage to small airways, with trapping of air in large sacks in the lung) and chronic bronchitis (repeated infection and damage to larger airways). The cause is almost always cigarette smoking, although dust exposure, asthma, and infections contribute. You should avoid fumes, dust, and smoke (especially tobacco smoke). Your condition will flare from time to time. There is no cure, but the symptoms can be treated. Bronchodilators (asthma medicine) are often helpful. Antibiotics help when infection is present. When shortness of breath is severe, we may prescribe cortisone medication. If medicine doesn't help enough, we can arrange for you to have an oxygen tank at home. Notify your doctor at once if sputum becomes thick, foul, or bloody, if you develop a fever or chest pain, or if your shortness of breath worsens. SHORTNESS OF BREATH OR DYSPNEA: You were evaluated for shortness of breath, or dyspnea. Dyspnea has many causes, and some are more serious than others. Sometimes it's impossible to diagnose the cause of dyspnea with the tests that are available on an emergency basis. Based on our evaluation today, you do not need hospitalization now. We found no evidence of pneumonia, collapsed lung, blood clots in the lung, tumors , or heart failure. Causes of non-specific dyspnea can include asthma or bronchospasm, hyperventilation, emotional distress, heart disease, emphysema, fibrosis of the lung, and stiffness of the chest wall. In healthy individuals with a single episode, it's sometimes reasonable to do nothing but wait to see if the problem occurs again. Additional tests used to evaluate dyspnea can include cardiac stress testing, echocardiography, pulmonary function testing, CAT scan of the chest, bronchoscopy or pulmonary biopsy. Return if shortness of breath persists or worsens, or if you develop chest pain, fever, cough, confusion, or fainting. Lasix Furosemide (Lasix) has been prescribed to eliminate excess fluid from your system. Lasix forces the kidney to put out extra salt and water in the urine. It is used for fluid retention due to heart or lung disease -- improving the symptoms of swelling, shortness of breath, and fatigue. Lasix may cause potassium loss (hypokalemia), so a potassium supplement is usually prescribed. If no potassium has been recommended for you, be sure to have your serum potassium checked after a short time on the medication. Contact your doctor if you have severe weakness or palpitations. Weigh yourself daily. Changes in your weight show how much salt and water your body is eliminating (or retaining). Generally, you should not lose more than about two pounds daily. Once you have lost the desired amount of extra fluid, continued weighing is recommended to monitor your condition. STEROID MEDICATION: You have been given an injection of or oral medicine of the cortisone/ steroid class. This medication is used to control inflammation or allergy. Froylan t is usually only given for a short period of time, until the acute process subsides. There are usually no side effects from short-term use of cortisone-like medications. Some persons feel an increased sense of well-being and are not sleepy at bedtime. Long-term use of cortisone medications is best avoided, unless required for a severe condition. If your condition does not remit, or relapses after the course of corticosteroid medication, you should consult your physician. INHALED BRONCHODILATORS: You have received treatment(s) of and/or prescription for an inhaled bronchodilator -- a medication which stimulates the airways in the lung to dilate. This improves the flow of air in asthma, bronchitis, and emphysema. These medicines have some similarity to adrenaline, and can cause similar side effects: shakiness, racing heart, and a sense of nervousness. These side effects decrease with time. Contact your doctor if these side effects are severe. Do not over-use the medicine. Too-frequent use of the inhaler may make it ineffective. Call your doctor if the inhaler is not controlling your symptoms at the prescribed doses. Please call your primary doctor in the morning and schedule a follow-up visit as soon as possible. Please continue on your current medications and treatments. A copy of your labs and x-rays have been given to you to take to your next appointment. FOLLOW-UP CARE: If you have been referred to a physician for follow-up care, call the physician s office for an appointment as you were instructed or within the next two days. If you experience worsening or a significant change in your symptoms, notify the physician immediately or return to the Emergency Department at any time for re-evaluation. Forms: Elevated Blood Pressure
[2017-07-13] MEDS ORDERED: METHYLPREDNISOLONE INJ 125 MG/2 ML SDV IV ONE (16:27)
[2017-07-13 16:52] LABS: ABSOLUTE EOSINOPHILS # (AUTO) 0.2 10^3/uL (0.0-0.6); ABSOLUTE LYMPHOCYTES (AUTO) 1.2 10^3/uL (0.5-4.7); ABSOLUTE NEUT (AUTO) 3.8 10^3/uL (1.7-8.2); BASOPHILS % (AUTO) 0.8 % (0-2); EOSINOPHILS % (AUTO) 3.9 % (0-6); HEMATOCRIT 37.7 % (37.9-51.0); HEMOGLOBIN 12.6 g/dL (13.5-17.0); LYMPHOCYTES % (AUTO) 19.6 % (13-45); MEAN CORPUSCULAR HEMOGLOBIN 28.4 pg (27.0-33.4); MEAN CORPUSCULAR HGB CONC 33.3 g/dL (32.0-36.0); MEAN CORPUSCULAR VOLUME 85 fl (80-97); MONOCYTES % (AUTO) 16.3 % (3-13); PLATELET COUNT 246 10^3/uL (150-450); RED BLOOD COUNT 4.43 10^6/uL (4.35-5.55); SEGMENTED NEUTROPHILS % (AUTO) 59.4 % (42-78); TOTAL CELLS COUNTED % (AUTO) 100 %; WHITE BLOOD COUNT 6.3 10^3/uL (4.0-10.5)
--- NOTE | 2017-07-13 18:35 | EKG REPORT ---
SEVERITY:- ABNORMAL ECG - SINUS TACHYCARDIA PROBABLE LEFT ATRIAL ABNORMALITY LOW VOLTAGE THROUGHOUT : Confirmed by: Pooja Patel 13-Jul-2017 18:34:40
[2017-07-13 18:38] LABS: ALANINE AMINOTRANSFERASE 62 U/L (21-72); ALKALINE PHOSPHATASE 55 U/L (38-126); ANION GAP 11 (5-19); ASPARTATE AMINO TRANSFERASE 31 U/L (17-59); BILIRUBIN,DIRECT 0.5 mg/dL (0.0-0.4); BILIRUBIN,TOTAL 0.6 mg/dL (0.2-1.3); BLOOD UREA NITROGEN 20 mg/dL (7-20); CALCIUM 9.1 mg/dL (8.4-10.2); CARBON DIOXIDE 29 mmol/L (22-30); CHLORIDE 102 mmol/L (98-107); CREATINE KINASE 56 U/L (55-170); GLUCOSE 116 mg/dL (75-110); POTASSIUM 3.7 mmol/L (3.6-5.0); SODIUM 141.9 mmol/L (137-145); TOTAL PROTEIN 6.6 g/dL (6.3-8.2)
[2017-07-13 18:50] LABS: CREATINE KINASE MB 1.53 ng/mL (<4.55)
[2017-07-13 18:55] LABS: TROPONIN I 0.047 ng/mL
[2017-07-13] MEDS ORDERED: FUROSEMIDE INJ/PF 40 MG/4 ML SDV IV ONE (19:03)
[2017-07-14 00:54] LABS: APPEARANCE,URINE CLEAR; BILIRUBIN,URINE NEGATIVE (NEGATIVE); COLOR,URINE STRAW; GLUCOSE, URINE NEGATIVE (NEGATIVE); KETONES,URINE NEGATIVE (NEGATIVE); LEUKOCYTE ESTERASE,URINE NEGATIVE (NEGATIVE); NITRITE,URINE NEGATIVE (NEGATIVE); PROTEIN,URINE NEGATIVE (NEGATIVE); URINE SPECIFIC GRAVITY 1.005; UROBILINOGEN,URINE NEGATIVE mg/dL (<2.0)
[2017-07-14] MEDS ORDERED: ALBUTEROL SULFATE 0.083% NEB 2.5 MG/3 ML AMPUL NEB ONE (02:18)
[2017-07-14] MEDS ORDERED: IPRATROPIUM/ALBUTEROL 0.5-2.5 MG/3 ML AMPUL NEB ONE (02:18)
[2017-07-14] MEDS ORDERED: FUROSEMIDE INJ/PF 40 MG/4 ML SDV IV ONE (02:27)
[2017-07-14] MEDS ORDERED: POTASSI CL 20 MEQ/50 ML RIDER 20 MEQ/50 ML RTUPB IV SCH (02:45)
[2017-07-14 04:40] LABS: BLOOD UREA NITROGEN 21 mg/dL (7-20); CALCIUM 9.1 mg/dL (8.4-10.2); CARBON DIOXIDE 27 mmol/L (22-30); CHLORIDE 102 mmol/L (98-107); GLUCOSE 151 mg/dL (75-110); POTASSIUM 4.4 mmol/L (3.6-5.0); SODIUM 141.1 mmol/L (137-145)
[2017-07-14 04:41] LABS: ANION GAP 12 (5-19)
[2017-07-14 05:37] VITALS: BP 120/88
== END 2017-07-14 05:56 | disposition home or self-care (01) ==
LOC: ER 14:50
DX: J44.1 Chronic obstructive pulmonary disease with (acute) exacerbation (principal); I11.0 Hypertensive heart disease with heart failure; I50.9 Heart failure, unspecified; I69.320 Aphasia following cerebral infarction; R00.0 Tachycardia, unspecified; I25.10 Atherosclerotic heart disease of native coronary artery without angina pectoris; E11.9 Type 2 diabetes mellitus without complications; Z95.5 Presence of coronary angioplasty implant and graft; Z95.1 Presence of aortocoronary bypass graft; Z88.8 Allergy status to other drugs, medicaments and biological substances
CPT/HCPCS: 93005; 96376; 94640 ×2; 99285; 96375; 96365; 96366; 36415; 82553; 82550; 85025; 80048; 80053; 81001; 84484; 83880; 71045; 70450; 93010; J1940 ×2; J2930; J3480; A9270 ×2; J7620

== ENCOUNTER 2017-07-30 17:41 | Inpatient (IN) | payer MEDICARE ==
--- NOTE | 2017-07-30 18:26 | ER Document Report ---
ED Medical Screen (RME) - General Chief Complaint: Leg Swelling Stated Complaint: LEG PAIN Time Seen by Provider: 07/30/17 18:24 Notes: Patient presents stating that he feels very short of breath and has chest pain and leg swelling. TRAVEL OUTSIDE OF THE [place] IN LAST 30 DAYS: No - Related Data Allergies/Adverse Reactions: captopril [From Capoten] Allergy (Severe, Verified 07/30/17 17:44) Angioedema atorvastatin calcium [From Lipitor] Allergy (Intermediate, Verified 07/30/17 17: 44) Angioedema atorvastatin [From Lipitor] Allergy (Verified 07/30/17 17:44) clopidogrel [From Plavix] Allergy (Verified 07/30/17 17:44) rosuvastatin [From Crestor] Allergy (Verified 07/30/17 17:44) simvastatin [From Zocor] Allergy (Verified 07/30/17 17:44) Angioedema Past Medical History - Social History Chew tobacco use (# tins/day): No Frequency of alcohol use: None Drug Abuse: None Family history: None - Past Medical History Cardiac Medical History: Reports: Hx Congestive Heart Failure, Hx Coronary Artery Disease, Hx Heart Attack - 2008, Hx Hypercholesterolemia, Hx Hypertension Pulmonary Medical History: Reports: Hx Asthma, Hx Bronchitis, Hx COPD, Hx Sleep Apnea Neurological Medical History: Reports: Hx Cerebrovascular Accident - x 2. Denies: Hx Seizures Endocrine Medical History: Reports: Hx Diabetes Mellitus Type 1, Hx Diabetes Mellitus Type 2 Renal/ Medical History: Denies: Hx Peritoneal Dialysis Malignancy Medical History: GI Medical History: Reports: Hx Diverticulitis, Hx Gastroesophageal Reflux Disease Musculoskeltal Medical History: Reports Hx Arthritis, Reports Hx Musculoskeletal Deformity, Reports Hx Musculoskeletal Trauma Psychiatric Medical History: Reports: Hx Anxiety, Hx Post Traumatic Stress Disorder Denies: Hx Depression Infectious Medical History: Past Surgical History: Reports: Hx Abdominal Surgery - for diverticulitis, Hx Bowel Surgery - Colon resection due to diverticulitis, Hx Cardiac Catheterization, Hx Cardiac Surgery - 1984, ICD placement 2015, Hx Coronary Artery Bypass Graft, Hx Coronary Stent - 1984, Hx Thyroid Surgery, Other - AICD - Immunizations Immunizations up to date: Yes Hx Diphtheria, Pertussis, Tetanus Vaccination: Yes Physical Exam - Vital signs Vitals: Temp Pulse Resp BP Pulse Ox 97.9 F 107 H 20 130/86 H 97 07/30/17 17:48 07/30/17 17:48 07/30/17 17:48 07/30/17 17:48 07/30/17 17:48 Course - Vital Signs Vital signs: Temp Pulse Resp BP Pulse Ox 97.9 F 107 H 20 130/86 H 97 07/30/17 17:48 07/30/17 17:48 07/30/17 17:48 07/30/17 17:48 07/30/17 17:48
[2017-07-30 19:15] LABS: ABSOLUTE BASOPHILS # (AUTO) 0.1 10^3/uL (0.0-0.2); ABSOLUTE EOSINOPHILS # (AUTO) 0.3 10^3/uL (0.0-0.6); ABSOLUTE LYMPHOCYTES (AUTO) 1.7 10^3/uL (0.5-4.7); ABSOLUTE NEUT (AUTO) 4.6 10^3/uL (1.7-8.2); HEMATOCRIT 39.1 % (37.9-51.0); HEMOGLOBIN 12.6 g/dL (13.5-17.0); LYMPHOCYTES % (AUTO) 22.5 % (13-45); MEAN CORPUSCULAR HGB CONC 32.3 g/dL (32.0-36.0); MEAN CORPUSCULAR VOLUME 84 fl (80-97); MONOCYTES % (AUTO) 12.9 % (3-13); PLATELET COUNT 238 10^3/uL (150-450); RED BLOOD COUNT 4.68 10^6/uL (4.35-5.55); RED CELL DISTRIBUTION WIDTH 15.6 % (11.5-14.0); SEGMENTED NEUTROPHILS % (AUTO) 59.6 % (42-78); TOTAL CELLS COUNTED % (AUTO) 100 %; WHITE BLOOD COUNT 7.7 10^3/uL (4.0-10.5)
--- NOTE | 2017-07-30 19:30 | RADIOLOGY REPORT (SQ) ---
EXAM DESCRIPTION: CHEST PA/LAT COMPLETED DATE/TIME: 07/30/2017 7:22 pm REASON FOR STUDY: sob COMPARISON: 07/13/2017 EXAM PARAMETERS: NUMBER OF VIEWS: two views TECHNIQUE: Digital Frontal and Lateral radiographic views of the chest acquired. RADIATION DOSE: NA LIMITATIONS: none FINDINGS: LUNGS AND PLEURA: Ill-defined opacification is seen in the left base. The left hemidiaphr agm is obscured. MEDIASTINUM AND HILAR STRUCTURES: No masses or contour abnormalities. HEART AND VASCULAR STRUCTURES: Cardiomegaly. No evidence of acute failure. BONES: No acute findings. HARDWARE: Pacemaker/defibrillator. OTHER: No other significant finding. IMPRESSION: Cardiomegaly without CHF. Cannot exclude a small left pleural effusion or limited left lower lobe infiltrate. TECHNICAL DOCUMENTATION: JOB ID: [id number] [employer]- All Rights Reserved Reading location - IP/workstation name: [email or web address]
[2017-07-30 19:36] LABS: ALANINE AMINOTRANSFERASE 38 U/L (21-72); ALBUMIN 3.8 g/dL (3.5-5.0); ALKALINE PHOSPHATASE 67 U/L (38-126); ANION GAP 11 (5-19); ASPARTATE AMINO TRANSFERASE 23 U/L (17-59); BILIRUBIN,DIRECT 0.4 mg/dL (0.0-0.4); BILIRUBIN,TOTAL 0.4 mg/dL (0.2-1.3); BLOOD UREA NITROGEN 22 mg/dL (7-20); CALCIUM 9.2 mg/dL (8.4-10.2); CARBON DIOXIDE 29 mmol/L (22-30); CHLORIDE 105 mmol/L (98-107); GLUCOSE 134 mg/dL (75-110); POTASSIUM 3.8 mmol/L (3.6-5.0); SODIUM 144.6 mmol/L (137-145); TOTAL PROTEIN 6.2 g/dL (6.3-8.2)
[2017-07-30 19:53] LABS: TROPONIN I 0.059 ng/mL
--- NOTE | 2017-07-30 19:56 | ER Document Report ---
ED General - General Chief Complaint: Leg Swelling Stated Complaint: LEG PAIN Time Seen by Provider: 07/30/17 18:24 TRAVEL OUTSIDE OF THE [place] IN LAST 30 DAYS: No - HPI Notes: Patient is a 61-year-old male with a history of CVA with expressive aphasia, CAD , type II diabetic, hypertension, sleep apnea, obesity, GERD, diverticulitis, CHF who presents today complaining of swelling in his legs bilaterally, dyspnea on exertion 3-4 days. Patient states that he has been having issues despite using his Lasix. Patient continues his other home medications without any side effects to note. He still eating and drinking without difficulties. He is urinating normally and having normal bowel movements. Patient states that he does have some left-sided weakness from his previous stroke. Patient states that his discomfort does not mimic that of the past when he had an OH. He has not had any other recent illness. Denies any headache, fever, neck pain, changes in vision/speech/mentation/hearing, URI, sore throat, chest pain, palpitations, syncope, cough, abdominal pain, nausea/vomiting/diarrhea, urinary retention, dysuria, hematuria, loss of control of bowel or bladder, numbness/ tingling, saddle anesthesia, muscle paralysis/weakness, or rash. - Related Data Allergies/Adverse Reactions: captopril [From Capoten] Allergy (Severe, Verified 07/30/17 17:44) Angioedema atorvastatin calcium [From Lipitor] Allergy (Intermediate, Verified 07/30/17 17: 44) Angioedema atorvastatin [From Lipitor] Allergy (Verified 07/30/17 17:44) clopidogrel [From Plavix] Allergy (Verified 07/30/17 17:44) rosuvastatin [From Crestor] Allergy (Verified 07/30/17 17:44) simvastatin [From Zocor] Allergy (Verified 07/30/17 17:44) Angioedema Past Medical History - Social History Smoking Status: Never Smoker Chew tobacco use (# tins/day): No Frequency of alcohol use: None Drug Abuse: None Family History: Reviewed & Not Pertinent, CAD, DM, Hypertension, Thyroid Disfunction Patient has suicidal ideation: No Patient has homicidal ideation: No - Past Medical History Cardiac Medical History: Reports: Hx Congestive Heart Failure, Hx Coronary Artery Disease, Hx Heart Attack - 2008, Hx Hypercholesterolemia, Hx Hypertension Pulmonary Medical History: Reports: Hx Asthma, Hx Bronchitis, Hx COPD, Hx Sleep Apnea Neurological Medical History: Reports: Hx Cerebrovascular Accident - x 2. Denies: Hx Seizures Endocrine Medical History: Reports: Hx Diabetes Mellitus Type 1, Hx Diabetes Mellitus Type 2 Renal/ Medical History: Denies: Hx Peritoneal Dialysis Malignancy Medical History: GI Medical History: Reports: Hx Diverticulitis, Hx Gastroesophageal Reflux Disease Musculoskeltal Medical History: Reports Hx Arthritis, Reports Hx Musculoskeletal Deformity, Reports Hx Musculoskeletal Trauma Psychiatric Medical History: Reports: Hx Anxiety, Hx Post Traumatic Stress Disorder Denies: Hx Depression Infectious Medical History: Past Surgical History: Reports: Hx Abdominal Surgery - for diverticulitis, Hx Bowel Surgery - Colon resection due to diverticulitis, Hx Cardiac Catheterization, Hx Cardiac Surgery - 1984, ICD placement 2015, Hx Coronary Artery Bypass Graft, Hx Coronary Stent - 1984, Hx Thyroid Surgery, Other - AICD - Immunizations Immunizations up to date: Yes Hx Diphtheria, Pertussis, Tetanus Vaccination: Yes Hx Pneumococcal Vaccination: 05/26/10 Review of Systems - Review of Systems -: Yes All other systems reviewed and negative Physical Exam - Vital signs Vitals: Temp Pulse Resp BP Pulse Ox 97.9 F 107 H 20 130/86 H 97 07/30/17 17:48 07/30/17 17:48 07/30/17 17:48 07/30/17 17:48 07/30/17 17:48 - Notes Notes: PHYSICAL EXAMINATION: GENERAL: Well-appearing, well-nourished and in no acute distress. A&Ox4. Answers questions approp. does have a stutter (normal for him) HEAD: Atraumatic, normocephalic. EYES: Pupils equal round and reactive to light, extraocular movements intact, sclera anicteric, conjunctiva are normal. ENT: Nares patent and without discharge. oropharynx clear without exudates. No tonsilar hypertrophy or erythema. Moist mucous membranes. NECK: Normal range of motion, supple without lymphadenopathy LUNGS: Dec breath sounds with scant expiratory wheeze. HEART: Regular rate and rhythm without murmurs, rubs, gallops. ABDOMEN: Soft, nontender, nondistended abdomen. No guarding, no rebound. No masses appreciated. Normal bowel sounds present. No CVA tenderness bilaterally. Musculoskeletal: FROM to passive/active. Strength 5+/5. Extremities: Peripheral pulses 1+. Capillary refill less than 3 seconds. + pitting edema from foot to mid thigh b/l, equal. Trace in the thigh and up to 2 + in the feet b/l. NEUROLOGICAL: Normal sensory, motor exams PSYCH: Normal mood, normal affect. SKIN: Warm, Dry, normal turgor, no rashes or lesions noted. Course - Re-evaluation Re-evalutation: 07/30/17 23:44 Pt has continued to be tachycardic 99% on oxygen (not on oxygen at home) Pitting edema to his thighs b/l. Pt continues to feel SOB. Bumex was given without improvement. CBC, CMP, cardiac enzymes x2/EKG unremarkable for acute pathology. BNP 2770 which is significantly elevated compared to May. Pt has been here a few times since then and has had markedly elevated BNP. Last Echo was in 2015 with 40-45% EF. Pt dropped to 93% on RA with ambulation to his doorway and then became SOB and did not want to walk further. Reviewed case with Dr. Macias who recommends admission at this time. Pt is in agreement with admission and further eval/management. 07/31/17 00:[address] Woods (hospitalist) who accepted patient. - Vital Signs Vital signs: Temp Pulse Resp BP Pulse Ox 97.9 F 105 H 27 H 125/95 H 99 07/30/17 17:48 07/30/17 23:34 07/30/17 23:01 07/30/17 23:31 07/30/17 23:34 - Laboratory Result Diagrams: 07/30/17 19:04 07/30/17 19:04 Laboratory results interpreted by me: 07/30/17 07/30/17 07/30/17 19:04 19:04 19:04 Hgb 12.6 L RDW 15.6 H BUN 22 H Glucose 134 H NT-Pro-B Natriuret Pep 2770 H Total Protein 6.2 L Discharge - Discharge Clinical Impression: CHF (congestive heart failure) Qualifiers: Heart failure type: unspecified Heart failure chronicity: acute on chronic Qualified Code(s): I50.9 - Heart failure, unspecified Condition: Stable Disposition: ADMITTED INPATIENT Admitting Provider: Hospitalist - Dr. Woods Unit Admitted: Telemetry
[2017-07-30] MEDS ORDERED: IPRATROPIUM/ALBUTEROL 0.5-2.5 MG/3 ML AMPUL NEB ONE (19:59)
[2017-07-30] MEDS ORDERED: FUROSEMIDE INJ/PF 40 MG/4 ML SDV IV ONE (19:59)
[2017-07-30] MEDS ORDERED: BUMETANIDE 1 MG TABLET PO ONE (20:59)
--- NOTE | 2017-07-30 22:10 | EKG REPORT ---
SEVERITY:- ABNORMAL ECG - SINUS TACHYCARDIA PROBABLE LEFT ATRIAL ABNORMALITY LOW VOLTAGE THROUGHOUT BORDERLINE R WAVE PROGRESSION, ANTERIOR LEADS BORDERLINE T WAVE ABNORMALITIES : Confirmed by: Pooja Patel 30-Jul-2017 22:09:13
[2017-07-31] MEDS ORDERED: NITROGLYCERIN 2% OINTMENT 1 GM PACKET TP ONE (02:15)
[2017-07-31] MEDS ORDERED: DEXTROSE 40% GEL 15 GM TUBE PO PRN ×2 (03:52)
[2017-07-31] MEDS ORDERED: DEXTROSE 50%-WATER 25 GM/50 ML DISP.SYRIN IV PRN ×2 (03:52)
[2017-07-31] MEDS ORDERED: GLUCAGON,HUMAN RECOMB 1 MG INJ IM PRN (03:52)
--- NOTE | 2017-07-31 04:26 | PDOC H&P ---
History of Present Illness Patient complains of: Increased bilateral leg edema and chest discomfort with worsening shortness of breath for the last 3 days. History of Present Illness: ALEX KNIGHT is a 61 year old male morbidly obese with history of MA in 2009, CAD/CHF (post AICD), obstructive sleep apnea (not on CPAP since malfunctioning for the last year or so), CVA (with minimal left arm residual weakness and dysarthria) and type 2 diabetes mellitus was admitted with above- mentioned complaints. He describes his chest pain as intermittent discomfort, localized to his anterior chest wall lasting for about half an hour at a time with no alleviating or aggravating factors. The last time he had chest "discomfort" was around 11 AM per patient. He took a baby aspirin with no significant relief. The pain was associated with palpitations, nausea but no vomiting or any diaphoresis or syncope. He also denied any fever or chills or any sick contacts. He said that he has a dry cough. He never received any influenza or pneumonia vaccines previously. He noticed increased leg swelling for the last 3 days and he has been sleeping in a chair. His exercise tolerance has been very limited by his shortness of breath. He said that he is compliant with his medications. The patient also complained of abdominal discomfort and chronic constipation. The last time he had a bowel movement was about 4 days ago. He denied any urinary symptoms but noticed that his urine output has been decreasing over the last few days. He lives by himself and he is able to ambulate using a cane. In the ED, his temperature was 97.9, heart rate 107, respiratory rate 20, blood pressure 130/86 with oxygen saturation of 97% on room air. Initial troponin was 0.059 with a proBNP of 2770. His WBC was 7.7 and his hemoglobin was 12.6. A CXR was done which showed cardiomegaly without CHF and possible small left pleural effusion/infiltrate. He received 40 mg IV Lasix x1, 1 mg IV Bumex x1 in addition to DuoNeb treatment 1 with minimal diuresis at this time. Past Medical History Cardiac Medical History: Reports: Congestive Heart Failure, Coronary Artery Disease, Myocardial Infarction - 2009, Hyperlipidema, Hypertension Pulmonary Medical History: Reports: Asthma, Bronchitis, Chronic Obstructive Pulmonary Disease (COPD), Sleep Apnea Neurological Medical History: Denies: Seizures Endocrine Medical History: Reports: Diabetes Mellitus Type 1, Diabetes Mellitus Type 2 Renal/ Medical History: Malignancy Medical History: Denies: Breast Cancer, Cervical Cancer, Ovarian Cancer GI Medical History: Reports: Diverticulitis, Gastroesophageal Reflux Disease Musculoskeltal Medical History: Reports: Arthritis Psychiatric Medical History: Reports: Post Traumatic Stress Disorder Denies: Depression Hematology: Reports: Anemia Denies: Hemophilia, Sickle Cell Disease - sickle cell trait Infectious Medical History: Past Surgical History Past Surgical History: Reports: Cardiac Catheterization, Coronary Artery Bypass Graft, Coronary Stent - 1984, Other - AICD Social History Smoking Status: Never Smoker Frequency of Alcohol Use: None Hx Recreational Drug Use: No Drugs: None Hx Prescription Drug Abuse: No Family History Family History: Reviewed & Not Pertinent, CAD, DM, Hypertension, Thyroid Disfunction Parental Family History Reviewed: Yes - Father: CAD and Mother: DM2. Children Family History Reviewed: No Sibling(s) Family History Reviewed.: Yes Medication/Allergy Home Medications: Albuterol Sulfate [Proair HFA Inhalation Aerosol 8.5 gm MDI] 2 puff IH Q3HP PRN #1 hfa.aer.ad 06/14/16 Diclofenac Sodium [Voltaren] 4 gm TP QID PRN #100 gel..gm. 12/18/16 Furosemide [Lasix 20 mg Tablet] 40 mg PO QAM #60 tablet 04/16/17 Phenazopyridine HCl [Pyridium 100 Mg Tablet] 100 mg PO TID PRN #12 tablet Metoclopramide HCl [Reglan] 5 mg PO Q6 #14 tablet 05/12/17 Albuterol Sulfate [Proair HFA Inhalation Aerosol 8.5 gm MDI] 2 puff IH Q4H PRN # 1 mdi 07/07/17 Tramadol HCl [Ultram 50 mg Tablet] 50 mg PO Q6HP PRN #10 tablet 07/12/17 Allergies/Adverse Reactions: captopril [From Capoten] Allergy (Severe, Verified 07/30/17 17:44) Angioedema atorvastatin calcium [From Lipitor] Allergy (Intermediate, Verified 07/30/17 17: 44) Angioedema atorvastatin [From Lipitor] Allergy (Verified 07/30/17 17:44) clopidogrel [From Plavix] Allergy (Verified 07/30/17 17:44) rosuvastatin [From Crestor] Allergy (Verified 07/30/17 17:44) simvastatin [From Zocor] Allergy (Verified 07/30/17 17:44) Angioedema Review of Systems ROS unobtainable: Other - Pertinent positives and negatives as detailed in the HPI. Physical Exam Vital Signs: Temp Pulse Resp BP Pulse Ox 97.9 F 105 H 27 H 125/95 H 99 07/30/17 17:48 07/30/17 23:34 07/30/17 23:01 07/30/17 23:31 07/30/17 23:34 Intake & Output 07/29/17 07/30/17 07/31/17 06:59 06:59 06:59 Weight 113.9 kg General appearance: PRESENT: no acute distress, well-developed, well-nourished Head exam: PRESENT: atraumatic, normocephalic Eye exam: PRESENT: conjunctiva pink, PERRLA. ABSENT: scleral icterus Mouth exam: PRESENT: moist, tongue midline Neck exam: PRESENT: full ROM, JVD Respiratory exam: PRESENT: decreased breath sounds. ABSENT: rales, rhonchi, wheezes Cardiovascular exam: PRESENT: tachycardia - S1 S2 normal. Pulses: PRESENT: normal dorsalis pedis pul GI/Abdominal exam: PRESENT: distended, normal bowel sounds, soft. ABSENT: rebound, tenderness Rectal exam: PRESENT: deferred Extremities exam: PRESENT: full ROM, pedal edema, +2 edema Neurological exam: PRESENT: alert, awake, oriented to person, oriented to place , oriented to situation, motor sensory deficit - left arm motor 4/5. Skin exam: PRESENT: dry, intact, warm. ABSENT: cyanosis, rash Results Laboratory Results: 07/30/17 19:04 07/30/17 19:04 07/30/17 07/30/17 19:04 19:04 WBC 7.7 RBC 4.68 Hgb 12.6 L Hct 39.1 MCV 84 MCH 27.0 MCHC 32.3 RDW 15.6 H Plt Count 238 Seg Neutrophils % 59.6 Lymphocytes % 22.5 Monocytes % 12.9 Eosinophils % 4.0 Basophils % 1.0 Absolute Neutrophils 4.6 Absolute Lymphocytes 1.7 Absolute Monocytes 1.0 Absolute Eosinophils 0.3 Absolute Basophils 0.1 Sodium 144.6 Potassium 3.8 Chloride 105 Carbon Dioxide 29 Anion Gap 11 BUN 22 H Creatinine 1.19 Est GFR ( Amer) > 60 Est GFR (Non-Af Amer) > 60 Glucose 134 H Calcium 9.2 Total Bilirubin 0.4 AST 23 ALT 38 Alkaline Phosphatase 67 Total Protein 6.2 L Albumin 3.8 07/30/17 07/30/17 19:04 23:00 Troponin I 0.059 0.058 NT-Pro-B Natriuret Pep 2770 H EKG Comments: 12 lead EKG, sinus rhythm, ventricular rate 105, right axis deviation, low voltage, poor R-wave propagation, QTC prolongation, no acute changes. Compared to a previous twelve-lead EKG done on 07/13/2017, sinus rhythm, ventricular rate 100, and right axis deviation, QTC prolongation, poor R-wave propagation and low voltage. Impressions: Chest X-Ray 07/30/17 18:24 IMPRESSION: Cardiomegaly without CHF. Cannot exclude a small left pleural effusion or limited left lower lobe infiltrate. Assessment & Plan - Diagnosis (1) Acute on chronic systolic CHF (congestive heart failure), NYHA class 4 Is this a current diagnosis for this admission?: Yes Plan: unknown type. CXR reviewed. We will continue to cycle cardiac enzymes and check an echocardiogram. Will start 60 mg IV Lasix twice a day and nitropaste 1 inch Q6 hours. Strict I's and O's. of note, he is allergic to UZMA-I (angioedema). (2) Chest pain of uncertain etiology Is this a current diagnosis for this admission?: Yes Plan: in the setting of acute congestive heart failure. We will ASA. He is allergic to statins (angioedema). We will continue management as mentioned above. (3) Type 2 diabetes mellitus Qualifiers: Diabetes mellitus complication status: with unspecified complications Diabetes mellitus fdc insulin use: without exterminator use Qualified Code( s): E11.8 - Type 2 diabetes mellitus with unspecified complications Is this a current diagnosis for this admission?: No Plan: The patient is only on metformin at home. We will start Humalog sliding scale while hospitalized. (4) VIOLETA (obstructive sleep apnea) Is this a current diagnosis for this admission?: No Plan: not currently on CPAP since it has not been functioning properly for the last year or so. (5) Essential hypertension Is this a current diagnosis for this admission?: No Plan: We will monitor his blood pressure and resume his home medications when clarified by pharmacy. - Time Time Spent: 50 to 70 Minutes Anticipated discharge: Home - Inpatient Certification Based on my medical assessment, after consideration of the patient's comorbidities, presenting symptoms, or acuity I expect that the services needed warrant INPATIENT care.: Yes I certify that my determination is in accordance with my understanding of Medicare's requirements for reasonable and necessary INPATIENT services [42 CFR 412.3e].: Yes
[2017-07-31 09:18] LABS: ABSOLUTE BASOPHILS # (AUTO) 0.1 10^3/uL (0.0-0.2); ABSOLUTE EOSINOPHILS # (AUTO) 0.2 10^3/uL (0.0-0.6); ABSOLUTE LYMPHOCYTES (AUTO) 1.5 10^3/uL (0.5-4.7); ABSOLUTE NEUT (AUTO) 4.1 10^3/uL (1.7-8.2); BASOPHILS % (AUTO) 1.3 % (0-2); EOSINOPHILS % (AUTO) 3.4 % (0-6); HEMATOCRIT 39.1 % (37.9-51.0); HEMOGLOBIN 12.5 g/dL (13.5-17.0); LYMPHOCYTES % (AUTO) 21.9 % (13-45); MEAN CORPUSCULAR HGB CONC 31.9 g/dL (32.0-36.0); MEAN CORPUSCULAR VOLUME 85 fl (80-97); MONOCYTES % (AUTO) 14.1 % (3-13); PLATELET COUNT 241 10^3/uL (150-450); RED BLOOD COUNT 4.63 10^6/uL (4.35-5.55); RED CELL DISTRIBUTION WIDTH 15.5 % (11.5-14.0); SEGMENTED NEUTROPHILS % (AUTO) 59.3 % (42-78); TOTAL CELLS COUNTED % (AUTO) 100 %; WHITE BLOOD COUNT 6.9 10^3/uL (4.0-10.5)
[2017-07-31 09:34] LABS: ALANINE AMINOTRANSFERASE 38 U/L (21-72); ALBUMIN 3.6 g/dL (3.5-5.0); ALKALINE PHOSPHATASE 63 U/L (38-126); ANION GAP 11 (5-19); ASPARTATE AMINO TRANSFERASE 23 U/L (17-59); BILIRUBIN,DIRECT 0.4 mg/dL (0.0-0.4); BILIRUBIN,TOTAL 0.4 mg/dL (0.2-1.3); BLOOD UREA NITROGEN 23 mg/dL (7-20); CALCIUM 8.9 mg/dL (8.4-10.2); CARBON DIOXIDE 30 mmol/L (22-30); CHLORIDE 105 mmol/L (98-107); GLUCOSE 149 mg/dL (75-110); POTASSIUM 4.1 mmol/L (3.6-5.0)
[2017-07-31] MEDS: NITROGLYCERIN 2% OINTMENT 1 GM PACKET TP SCH ×3 (09:39→20:59)
[2017-07-31] MEDS: FUROSEMIDE INJ/PF 100 MG/10 ML SDV IV SCH ×2 (09:39→21:00)
[2017-07-31 10:10] LABS: ANISOCYTOSIS SLIGHT; PLATELET COMMENT ADEQUATE; POLYCHROMASIA SLIGHT
[2017-07-31] MEDS: ASPIRIN 325 MG TABLET, ENT COATED PO SCH (12:12)
[2017-07-31] MEDS: ACETAMINOPHEN 325 MG TABLET PO PRN ×2 (12:12→21:00)
[2017-07-31] MEDS ORDERED: METOPROLOL SUCCINATE 25 MG TAB.SR.24H PO ONE (13:00)
--- NOTE | 2017-07-31 20:53 | Progress Note ---
Provider Note Provider Note: 60-year-old man with prior stroke with L sided hemiparesis and dysarthria needed for acute on chronic systolic CHF exacerbation. Status post ICD last January. He goes to the [facility] in [place] and states to be on blood thinners for his heart- most of them are called and he does not seem to recall. He reports using salt with his foods. Started on BB for ventricular arrhythmia. Continue IV Lasix and echo ordered. Watch electrolytes. [facility] staff [facility].
[2017-07-31] MEDS: INSULIN LISPRO 100 UNIT/ML 3 ML VIAL SUBCUT PRN (22:35)
[2017-08-01] MEDS: NITROGLYCERIN 2% OINTMENT 1 GM PACKET TP SCH ×4 (03:21→21:47)
[2017-08-01] MEDS: ACETAMINOPHEN 325 MG TABLET PO PRN ×2 (03:22→08:51)
[2017-08-01] MEDS ORDERED: METOPROLOL SUCCINATE 25 MG TAB.SR.24H PO SCH (10:00)
[2017-08-01] MEDS: ASPIRIN 325 MG TABLET, ENT COATED PO SCH (10:09)
[2017-08-01] MEDS: FUROSEMIDE INJ/PF 100 MG/10 ML SDV IV SCH ×2 (10:58→21:48)
--- NOTE | 2017-08-01 12:43 | PDOC PROGRESS REPORT ---
Subjective Progress Note for:: 08/01/17 Subjective:: The patient is a 61-year-old male who has known coronary artery disease and congestive heart failure. He has a history of myocardial infarction in 2008. He is status post placement of AICD presumably due to a reduced ejection fraction. He has a history of obstructive sleep apnea but is not wearing CPAP since his machine has been non-functioning for approximately 12 months. He is status post CVA with left arm weakness and significant dysarthria. He also has underlying diabetes. The patient came in for chest pain, dyspnea and increasing lower extremity edema. He also complains of chronic constipation. Today, his biggest complaint is pain in his feet which he attributes to his diabetic neuropathy. He still states that he is constipated and his legs are still swollen. Reason For Visit: HEART FAILURE Physical Exam Vital Signs: Temp Pulse Resp BP Pulse Ox 98.1 F 105 H 18 116/89 H 97 08/01/17 07:41 08/01/17 07:41 08/01/17 07:41 08/01/17 07:41 08/01/17 07:41 Intake & Output 07/31/17 08/01/17 08/02/17 06:59 06:59 06:59 Intake Total 240 518 Output Total 400 1900 Balance -160 -1382 Additional comments: The patient does not appear to be toxic or in any distress. He is difficult to understand secondary to the dysarthria. His lungs are noted to be clear to auscultation bilaterally. His cardiac exam is regular. I do not appreciate any murmurs, gallops or rubs. The abdomen is obese but soft. Bowel sounds are present. He does not have guarding or rebound noted and there are no hernias or masses present. The lower extremities do demonstrate symmetrical 2-3+ lower extremity edema. Mild erythema is present bilaterally. Results Laboratory Results: 07/31/17 05:24 07/31/17 05:24 07/31/17 10:51 Magnesium 2.3 07/31/17 07/31/17 07/31/17 05:24 10:51 17:25 Troponin I 0.064 0.055 0.065 Impressions: Chest X-Ray 07/30/17 18:24 IMPRESSION: Cardiomegaly without CHF. Cannot exclude a small left pleural effusion or limited left lower lobe infiltrate. Assessment & Plan - Diagnosis (1) Acute on chronic systolic CHF (congestive heart failure), NYHA class 4 Is this a current diagnosis for this admission?: Yes Plan: Continue IV diuresis with Lasix. We will trend the patient's clinical exam and labs. Echocardiogram is pending. (2) Essential hypertension Is this a current diagnosis for this admission?: Yes Plan: Carvedilol would likely be a better antihypertensive for this patient in metoprolol. Echocardiogram is pending. (3) VIOLETA (obstructive sleep apnea) Is this a current diagnosis for this admission?: Yes Plan: It would be beneficial for the patient to have his CPAP machine replaced. 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 He is on sliding scale here. He is allergic to UZMA inhibitors. (5) Chest pain Qualifiers: Chest pain type: unspecified Qualified Code(s): R07.9 - Chest pain, unspecified Is this a current diagnosis for this admission?: Yes Plan: The troponins are slightly elevated, but not clinically significant. He does not appear to have acute coronary syndrome. The troponins are likely elevated due to the dilated cardiomyopathy. Echocardiogram testing is pending. (6) Diabetic neuropathy Is this a current diagnosis for this admission?: Yes Plan: I will begin low-dose gabapentin. Lyrica could also be considered. - Time Time Spent with patient: 15-24 minutes - Inpatient Certification Medical Necessity: Significant Comorbidiites Make Outpatient Treatment Too Risky , Need Close Monitoring Due to Risk of Patient Decompensation, Risk of Complication if Not Cared For in Hospital, Risk of Diagnosis Which Will Require Inpatient Eval/Care/Monitoring
[2017-08-01] MEDS ORDERED: [UNRECOGNIZED DRUG - OTHER] TP PRN (12:45)
[2017-08-01] MEDS ORDERED: ALBUTEROL SULFATE HFA (90 MCG/PUFF) 8 GM MDI (1 MDI/ER DISP) IH PRN (12:45)
[2017-08-01] MEDS ORDERED: ALBUTEROL SULFATE HFA (90 MCG/PUFF) 200 PUFF/8.5 GM MDI IH PRN (13:15)
[2017-08-01] MEDS: GABAPENTIN 100 MG CAPSULE PO SCH ×2 (14:18→21:47)
[2017-08-01] MEDS ORDERED: MINERAL OIL/PETROLATUM,WHITE CREAM 114 GM TP PRN (15:00)
[2017-08-01] MEDS: FERROUS SULFATE 325 MG TABLET PO SCH (16:41)
[2017-08-01 17:05] LABS: APPEARANCE,URINE CLEAR; BILIRUBIN,URINE NEGATIVE (NEGATIVE); COLOR,URINE STRAW; GLUCOSE, URINE NEGATIVE (NEGATIVE); KETONES,URINE NEGATIVE (NEGATIVE); LEUKOCYTE ESTERASE,URINE NEGATIVE (NEGATIVE); NITRITE,URINE NEGATIVE (NEGATIVE); PROTEIN,URINE NEGATIVE (NEGATIVE); URINE SPECIFIC GRAVITY 1.008; UROBILINOGEN,URINE NEGATIVE mg/dL (<2.0)
[2017-08-01] MEDS: CYCLOSPORINE 0.05% OPH EMULSIO 0.4 ML DROPERETTE OU SCH (18:37)
[2017-08-01] MEDS: OMEGA-3 ACID ETHYL ESTERS 1 GM CAPSULE PO SCH (18:37)
[2017-08-01] MEDS: TAMSULOSIN HCL 0.4 MG CAP.SR.24H PO SCH (18:38)
[2017-08-01 19:21] LABS: ANION GAP 16 (5-19); BLOOD UREA NITROGEN 25 mg/dL (7-20); CALCIUM 7.9 mg/dL (8.4-10.2); CARBON DIOXIDE 31 mmol/L (22-30); CHLORIDE 97 mmol/L (98-107); GLUCOSE 165 mg/dL (75-110); POTASSIUM 3.9 mmol/L (3.6-5.0); SODIUM 143.9 mmol/L (137-145)
[2017-08-01] MEDS: CARVEDILOL 12.5 MG TABLET PO SCH (21:47)
[2017-08-01] MEDS: POLYETHYLENE GLYCOL 3350 POWDER 17 GM/1 PACKET PO PRN (21:47)
[2017-08-01] MEDS ORDERED: GABAPENTIN 100 MG CAPSULE PO SCH (22:00)
[2017-08-02] MEDS: NITROGLYCERIN 2% OINTMENT 1 GM PACKET TP SCH ×4 (02:19→21:23)
[2017-08-02] MEDS: ACETAMINOPHEN 325 MG TABLET PO PRN ×3 (02:22→19:47)
[2017-08-02 06:22] LABS: ANION GAP 9 (5-19); BLOOD UREA NITROGEN 23 mg/dL (7-20); CALCIUM 9.1 mg/dL (8.4-10.2); CARBON DIOXIDE 34 mmol/L (22-30); CHLORIDE 101 mmol/L (98-107); GLUCOSE 145 mg/dL (75-110); POTASSIUM 4.2 mmol/L (3.6-5.0); SODIUM 144.3 mmol/L (137-145)
[2017-08-02] MEDS: GABAPENTIN 100 MG CAPSULE PO SCH ×3 (06:51→21:23)
[2017-08-02] MEDS: LANSOPRAZOLE 15 MG TAB.RAP.DR PO SCH (06:51)
[2017-08-02] MEDS: POLYETHYLENE GLYCOL 3350 POWDER 17 GM/1 PACKET PO PRN (07:50)
[2017-08-02] MEDS: FERROUS SULFATE 325 MG TABLET PO SCH ×3 (07:51→18:18)
[2017-08-02] MEDS: ASCORBIC ACID 500 MG TABLET PO SCH (09:30)
[2017-08-02] MEDS: ASPIRIN 81 MG TABLET, CHEWABLE PO SCH (09:31)
[2017-08-02] MEDS: DOCUSATE SODIUM 100 MG CAPSULE PO SCH (09:31)
[2017-08-02] MEDS: CARVEDILOL 12.5 MG TABLET PO SCH ×2 (09:31→21:23)
[2017-08-02] MEDS: SPIRONOLACTONE 25 MG TABLET PO SCH (09:31)
[2017-08-02] MEDS: FUROSEMIDE 40 MG TABLET PO SCH ×2 (09:32→18:18)
[2017-08-02] MEDS: OMEGA-3 ACID ETHYL ESTERS 1 GM CAPSULE PO SCH ×2 (09:32→18:18)
[2017-08-02] MEDS: LOSARTAN POTASSIUM 50 MG TABLET PO SCH (09:34)
[2017-08-02] MEDS: ENOXAPARIN SODIUM INJ 40 MG/0.4 ML DISP.SYRIN SUBCUT SCH (09:38)
[2017-08-02] MEDS: POTASSIUM CHLORIDE 10 MEQ TABLET.SA PO SCH (09:45)
[2017-08-02] MEDS: CLOPIDOGREL BISULFATE 75 MG TABLET PO SCH (09:45)
[2017-08-02] MEDS: CYCLOSPORINE 0.05% OPH EMULSIO 0.4 ML DROPERETTE OU SCH ×2 (09:47→18:19)
--- NOTE | 2017-08-02 15:18 | PDOC PROGRESS REPORT ---
Subjective Progress Note for:: 08/02/17 Subjective:: The patient is a 61-year-old male who has known coronary artery disease and congestive heart failure. He has a history of myocardial infarction in 2008. He is status post placement of AICD presumably due to a reduced ejection fraction. He has a history of obstructive sleep apnea but is not wearing CPAP since his machine has been non-functioning for approximately 12 months. He is status post CVA with left arm weakness and significant dysarthria. He also has underlying diabetes. The patient came in for chest pain, dyspnea and increasing lower extremity edema. He also complains of chronic constipation. Today and yesterday his biggest complaint is pain in his feet which he attributes to his diabetic neuropathy. I did review his medication list. He has been started on gabapentin. He states that he has been on it for about 3 months but it is not helping very much. Reason For Visit: HEART FAILURE Physical Exam Vital Signs: Temp Pulse Resp BP Pulse Ox 98.1 F 89 18 106/84 100 08/02/17 11:17 08/02/17 14:00 08/02/17 11:17 08/02/17 11:17 08/02/17 11:17 Intake & Output 08/01/17 08/02/17 08/03/17 06:59 06:59 07:59 Intake Total 518 863 Output Total 1900 1500 Balance -6632 -267 Additional comments: The patient is an elderly black male. He appears to be older than his stated age of 61. He does have dysarthria but it is clear that he can comprehend and answer questions appropriately. His facial appearance is noteworthy for some right facial droop. The face is otherwise normal. His lungs do demonstrate a few bibasilar crackles only posteriorly. His cardiac exam is regular without murmurs, gallops or rubs. The abdomen is obese but otherwise benign. He continues to have 2+ lower extremity edema. The skin is otherwise warm dry and intact without lesions or rashes. Results Laboratory Results: 07/31/17 05:24 08/02/17 05:28 08/01/17 08/01/17 08/02/17 14:17 18:47 05:28 Sodium 143.9 144.3 Potassium 3.9 4.2 Chloride 97 L 101 Carbon Dioxide 31 H 34 H Anion Gap 16 9 BUN 25 H 23 H Creatinine 1.01 1.14 Est GFR ( Amer) > 60 > 60 Est GFR (Non-Af Amer) > 60 > 60 Glucose 165 H 145 H Calcium 7.9 L 9.1 Magnesium 2.0 Urine Color STRAW Urine Appearance CLEAR Urine pH 6.0 Ur Specific Rock 1.008 Urine Protein NEGATIVE Urine Glucose (UA) NEGATIVE Urine Ketones NEGATIVE Urine Blood NEGATIVE Urine Nitrite NEGATIVE Ur Leukocyte Esterase NEGATIVE Urine WBC (Auto) 0 Urine RBC (Auto) 0 07/31/17 07/31/17 07/31/17 05:24 10:51 17:25 Troponin I 0.064 0.055 0.065 Impressions: Chest X-Ray 07/30/17 18:24 IMPRESSION: Cardiomegaly without CHF. Cannot exclude a small left pleural effusion or limited left lower lobe infiltrate. Assessment & Plan - Diagnosis (1) Acute on chronic systolic CHF (congestive heart failure), NYHA class 4 Is this a current diagnosis for this admission?: Yes Plan: Lasix was switched to oral today. Echocardiogram is pending. (2) Essential hypertension Is this a current diagnosis for this admission?: Yes Plan: Yesterday, I was able to go over the patient's medication list. He is on carvedilol. He is also on Spironolactone. Echocardiogram is pending. (3) VIOLETA (obstructive sleep apnea) Is this a current diagnosis for this admission?: Yes Plan: It would be beneficial for the patient to have his CPAP machine replaced. (4) Type 2 diabetes mellitus Qualifiers: Diabetes mellitus alf insulin use: without alf use Diabetes mellitus complication status: with unspecified complications Qualified Code(s) : E11.8 - Type 2 diabetes mellitus with unspecified complications Is this a current diagnosis for this admission?: Yes Plan: Apparently, the patient uses metformin at home. He is on sliding scale here. He is allergic to UZMA inhibitors. (5) Chest pain Qualifiers: Chest pain type: unspecified Qualified Code(s): R07.9 - Chest pain, unspecified Is this a current diagnosis for this admission?: Yes Plan: The troponins are slightly elevated, but not clinically significant. He does not appear to have acute coronary syndrome. The troponins are likely elevated due to the dilated cardiomyopathy. Echocardiogram testing is pending. (6) Diabetic neuropathy Is this a current diagnosis for this admission?: Yes Plan: Continue gabapentin. I did inform the patient that he will continue to have symptoms lifelong. - Time Time Spent with patient: 15-24 minutes - Inpatient Certification Medical Necessity: Significant Comorbidiites Make Outpatient Treatment Too Risky , Risk of Complication if Not Cared For in Hospital - Plan Summary Plan Summary: Patient was switched to oral Lasix today. If labs remain stable in the morning and echocardiogram does not demonstrate any significant or new findings I think we can anticipate discharge in the next 24-48 hours.
[2017-08-02] MEDS: TAMSULOSIN HCL 0.4 MG CAP.SR.24H PO SCH (18:17)
[2017-08-02] MEDS: INSULIN LISPRO 100 UNIT/ML 3 ML VIAL SUBCUT PRN (21:29)
[2017-08-03] MEDS: NITROGLYCERIN 2% OINTMENT 1 GM PACKET TP SCH ×4 (03:09→22:34)
[2017-08-03] MEDS: LANSOPRAZOLE 15 MG TAB.RAP.DR PO SCH (05:30)
[2017-08-03] MEDS: GABAPENTIN 100 MG CAPSULE PO SCH (05:30)
[2017-08-03] MEDS: ACETAMINOPHEN 325 MG TABLET PO PRN (05:36)
[2017-08-03 06:03] LABS: ANION GAP 10 (5-19); BLOOD UREA NITROGEN 25 mg/dL (7-20); CALCIUM 9.2 mg/dL (8.4-10.2); CARBON DIOXIDE 32 mmol/L (22-30); CHLORIDE 99 mmol/L (98-107); GLUCOSE 135 mg/dL (75-110); POTASSIUM 4.4 mmol/L (3.6-5.0); SODIUM 140.8 mmol/L (137-145)
[2017-08-03] MEDS: SPIRONOLACTONE 25 MG TABLET PO SCH (10:05)
[2017-08-03] MEDS: ASCORBIC ACID 500 MG TABLET PO SCH (10:05)
[2017-08-03] MEDS: OMEGA-3 ACID ETHYL ESTERS 1 GM CAPSULE PO SCH ×2 (10:05→17:18)
[2017-08-03] MEDS: LOSARTAN POTASSIUM 50 MG TABLET PO SCH (10:06)
[2017-08-03] MEDS: DOCUSATE SODIUM 100 MG CAPSULE PO SCH (10:06)
[2017-08-03] MEDS: ASPIRIN 81 MG TABLET, CHEWABLE PO SCH (10:06)
[2017-08-03] MEDS: FERROUS SULFATE 325 MG TABLET PO SCH ×3 (10:06→17:18)
[2017-08-03] MEDS: CARVEDILOL 12.5 MG TABLET PO SCH ×2 (10:06→22:34)
[2017-08-03] MEDS: POTASSIUM CHLORIDE 10 MEQ TABLET.SA PO SCH (10:07)
[2017-08-03] MEDS: FUROSEMIDE 40 MG TABLET PO SCH ×2 (10:07→17:17)
[2017-08-03] MEDS: CLOPIDOGREL BISULFATE 75 MG TABLET PO SCH (10:07)
[2017-08-03] MEDS: ENOXAPARIN SODIUM INJ 40 MG/0.4 ML DISP.SYRIN SUBCUT SCH (10:08)
[2017-08-03] MEDS: CYCLOSPORINE 0.05% OPH EMULSIO 0.4 ML DROPERETTE OU SCH ×2 (10:18→17:18)
--- NOTE | 2017-08-03 13:53 | PDOC PROGRESS REPORT ---
Subjective Progress Note for:: 08/03/17 Subjective:: The patient is a 61-year-old male who has known coronary artery disease and congestive heart failure. He has a history of myocardial infarction in 2008. He is status post placement of AICD presumably due to a reduced ejection fraction. He has a history of obstructive sleep apnea but is not wearing CPAP since his machine has been non-functioning for approximately 12 months. He is status post CVA with left arm weakness and significant dysarthria. He also has underlying diabetes. The patient came in for chest pain, dyspnea and increasing lower extremity edema. He also complains of chronic constipation. His biggest complaint remains pain in his feet which he attributes to his diabetic neuropathy. I did review his medication list. He has been receiving gabapentin. He states that he has been on it for about 3 months but it is not helping very much. Today, he told me that his CPAP machine has been fixed and he just needs to go pick it up. He has no new complaints today. He does continue to be more short of breath than his baseline. Again, his biggest complaint is neuropathy pain in his feet. Reason For Visit: HEART FAILURE Physical Exam Vital Signs: Temp Pulse Resp BP Pulse Ox 97.4 F 125 H 20 94/48 L 93 08/03/17 04:41 08/03/17 13:35 08/03/17 13:35 08/03/17 04:41 08/03/17 13:35 Intake & Output 08/02/17 08/03/17 08/04/17 05:59 06:59 06:59 Intake Total Output Total Balance Additional comments: The patient is an obese black male in no distress. His cognition and mentation are appropriate. He stutters. He does have some dysarthria and is difficult to understand but he clearly comprehends and can answer questions appropriately. His lungs demonstrate a few crackles in the posterior lung salazar at the bases. His cardiac exam is regular without murmurs, gallops or rubs. The abdomen is obese. The abdomen is somewhat distended but is nontender. There is no guarding or rebound noted and there are no hernias or masses present. The lower extremities demonstrate 2-3+ edema. This looks slightly improved over the last 48 hours. There are changes secondary to chronic venous stasis. However, there are no acute skin lesions or rashes present. Results Laboratory Results: 07/31/17 05:24 08/03/17 05:26 08/03/17 05:26 Sodium 140.8 Potassium 4.4 Chloride 99 Carbon Dioxide 32 H Anion Gap 10 BUN 25 H Creatinine 1.20 Est GFR ( Amer) > 60 Est GFR (Non-Af Amer) > 60 Glucose 135 H Calcium 9.2 Magnesium 2.0 07/31/17 07/31/17 07/31/17 05:24 10:51 17:25 Troponin I 0.064 0.055 0.065 Impressions: Chest X-Ray 07/30/17 18:24 IMPRESSION: Cardiomegaly without CHF. Cannot exclude a small left pleural effusion or limited left lower lobe infiltrate. Assessment & Plan - Diagnosis (1) Acute on chronic systolic CHF (congestive heart failure), NYHA class 4 Is this a current diagnosis for this admission?: Yes Plan: Lasix was switched to oral yesterday. Echocardiogram is pending. Patient may have diastolic dysfunction. He may require additional heart rate control. (2) Essential hypertension Is this a current diagnosis for this admission?: Yes Plan: I have reviewed the patient's medication list. He is on carvedilol. He is also on Spironolactone. Echocardiogram is pending. May need to increase his dose of carvedilol secondary to his heart rate which at times is tachycardic. In any event I would like to see his heart rate less than 80. (3) VIOLETA (obstructive sleep apnea) Is this a current diagnosis for this admission?: Yes Plan: It would be beneficial for the patient to have his CPAP machine replaced. Apparently, he is working on this. (4) Type 2 diabetes mellitus Qualifiers: Diabetes mellitus long-term insulin use: without intermediate manager use Diabetes mellitus complication status: with unspecified complications Qualified Code(s) : E11.8 - Type 2 diabetes mellitus with unspecified complications Is this a current diagnosis for this admission?: Yes Plan: Apparently, the patient uses metformin at home. He is on sliding scale here. He is allergic to UZMA inhibitors. (5) Chest pain Qualifiers: Chest pain type: unspecified Qualified Code(s): R07.9 - Chest pain, unspecified Is this a current diagnosis for this admission?: Yes Plan: The troponins are slightly elevated, but not clinically significant. He does not appear to have acute coronary syndrome. The troponins are likely elevated due to the dilated cardiomyopathy. Echocardiogram testing is pending. (6) Diabetic neuropathy Is this a current diagnosis for this admission?: Yes Plan: Continue gabapentin. I did inform the patient that he will continue to have symptoms lifelong. I will increase the dose of gabapentin today. - Time Time Spent with patient: 25-34 minutes - Inpatient Certification Medical Necessity: Failure to Improve With Outpatient Therapy, Significant Comorbidiites Make Outpatient Treatment Too Risky, Need Close Monitoring Due to Risk of Patient Decompensation, Risk of Diagnosis Which Will Require Inpatient Eval/Care/Monitoring
[2017-08-03] MEDS: ALBUTEROL SULFATE 0.083% NEB 2.5 MG/3 ML AMPUL NEB PRN (15:34)
[2017-08-03] MEDS: TAMSULOSIN HCL 0.4 MG CAP.SR.24H PO SCH (17:18)
[2017-08-03] MEDS: GABAPENTIN 300 MG CAPSULE PO SCH (22:34)
[2017-08-03] MEDS: INSULIN LISPRO 100 UNIT/ML 3 ML VIAL SUBCUT PRN (22:58)
[2017-08-04] MEDS: NITROGLYCERIN 2% OINTMENT 1 GM PACKET TP SCH ×4 (04:32→21:45)
[2017-08-04] MEDS: LANSOPRAZOLE 15 MG TAB.RAP.DR PO SCH (05:03)
[2017-08-04 06:59] LABS: HEMATOCRIT 39.8 % (37.9-51.0); HEMOGLOBIN 12.9 g/dL (13.5-17.0); MEAN CORPUSCULAR HGB CONC 32.3 g/dL (32.0-36.0); MEAN CORPUSCULAR VOLUME 84 fl (80-97); PLATELET COUNT 217 10^3/uL (150-450); RED BLOOD COUNT 4.76 10^6/uL (4.35-5.55); RED CELL DISTRIBUTION WIDTH 15.9 % (11.5-14.0); WHITE BLOOD COUNT 6.1 10^3/uL (4.0-10.5)
[2017-08-04 07:28] LABS: ANION GAP 9 (5-19); BLOOD UREA NITROGEN 27 mg/dL (7-20); CALCIUM 8.9 mg/dL (8.4-10.2); CARBON DIOXIDE 33 mmol/L (22-30); CHLORIDE 100 mmol/L (98-107); GLUCOSE 126 mg/dL (75-110); POTASSIUM 4.4 mmol/L (3.6-5.0); SODIUM 142.3 mmol/L (137-145)
[2017-08-04] MEDS: FERROUS SULFATE 325 MG TABLET PO SCH ×3 (07:57→17:43)
[2017-08-04] MEDS: SPIRONOLACTONE 25 MG TABLET PO SCH (09:31)
[2017-08-04] MEDS: FUROSEMIDE 40 MG TABLET PO SCH ×2 (09:33→17:42)
[2017-08-04] MEDS: DOCUSATE SODIUM 100 MG CAPSULE PO SCH (09:36)
[2017-08-04] MEDS: GABAPENTIN 300 MG CAPSULE PO SCH ×2 (09:37→21:49)
[2017-08-04] MEDS: CLOPIDOGREL BISULFATE 75 MG TABLET PO SCH (09:38)
[2017-08-04] MEDS: OMEGA-3 ACID ETHYL ESTERS 1 GM CAPSULE PO SCH ×2 (09:38→17:43)
[2017-08-04] MEDS: ASPIRIN 81 MG TABLET, CHEWABLE PO SCH (09:38)
[2017-08-04] MEDS: ASCORBIC ACID 500 MG TABLET PO SCH (09:38)
[2017-08-04] MEDS: LOSARTAN POTASSIUM 50 MG TABLET PO SCH (09:39)
[2017-08-04] MEDS: CARVEDILOL 12.5 MG TABLET PO SCH ×2 (09:39→22:49)
[2017-08-04] MEDS: POTASSIUM CHLORIDE 10 MEQ TABLET.SA PO SCH (09:39)
[2017-08-04] MEDS: ENOXAPARIN SODIUM INJ 40 MG/0.4 ML DISP.SYRIN SUBCUT SCH (09:39)
[2017-08-04] MEDS: CYCLOSPORINE 0.05% OPH EMULSIO 0.4 ML DROPERETTE OU SCH ×2 (09:52→17:42)
[2017-08-04] MEDS: ALBUTEROL SULFATE 0.083% NEB 2.5 MG/3 ML AMPUL NEB PRN ×2 (10:07→14:32)
[2017-08-04] MEDS: INSULIN LISPRO 100 UNIT/ML 3 ML VIAL SUBCUT PRN ×2 (13:13→21:54)
--- NOTE | 2017-08-04 15:24 | PDOC PROGRESS REPORT ---
Subjective Progress Note for:: 08/04/17 Subjective:: The patient is a 61-year-old male who has known coronary artery disease and congestive heart failure. He has a history of myocardial infarction in 2008. He is status post placement of AICD presumably due to a reduced ejection fraction. He has a history of obstructive sleep apnea but is not wearing CPAP since his machine has been non-functioning for approximately 12 months. He is status post CVA with left arm weakness and significant dysarthria. He also has underlying diabetes. The patient came in for chest pain, dyspnea and increasing lower extremity edema. He also complains of chronic constipation. His biggest complaint remains pain in his feet which he attributes to his diabetic neuropathy. I did review his medication list. He has been receiving gabapentin. He states that he has been on it for about 3 months but it is not helping very much. Today, he told me that his CPAP machine has been fixed and he just needs to go pick it up. Patient was aggravated this morning. He is wondering why the echocardiogram has not yet been completed. He still feels very short of breath. He tells me that the pain in his legs is disabling and he does not feel that he is going to be able to manage at home. We discussed the possibility of placement to rehab or skilled facility. He is against this but does agree to home health for nursing and physical therapy. Reason For Visit: HEART FAILURE Physical Exam Vital Signs: Temp Pulse Resp BP Pulse Ox 97.6 F 84 18 101/79 99 08/04/17 04:18 08/04/17 14:32 08/04/17 14:32 08/04/17 04:18 08/04/17 14:32 Intake & Output 08/03/17 08/04/17 08/05/17 06:59 06:59 06:59 Intake Total 1460 Output Total 1450 Balance 10 Weight 113.4 kg Additional comments: The patient appears to be older than 61. He is not in any distress. He does have dysarthria but it is clear that he can easily comprehend and answer questions. Patient's facial appearance demonstrates a right facial droop. Lungs demonstrate a few crackles in the posterior lung salazar at the bases. Cardiac exam is regular. I do not appreciate any murmurs, gallops or rubs. The abdomen is obese. The abdomen is protuberant. However, the abdomen is benign. The lower extremities demonstrate 2+ edema. The edema appears improved when compared to admission. The patient's skin demonstrates changes of chronic venous stasis. Results Laboratory Results: 08/04/17 06:15 18 06:15 18 08/04/17 06:15 06:15 WBC 6.1 RBC 4.76 Hgb 12.9 L Hct 39.8 MCV 84 MCH 27.0 MCHC 32.3 RDW 15.9 H Plt Count 217 Sodium 142.3 Potassium 4.4 Chloride 100 Carbon Dioxide 33 H Anion Gap 9 BUN 27 H Creatinine 1.21 Est GFR ( Amer) > 60 Est GFR (Non-Af Amer) > 60 Glucose 126 H Calcium 8.9 Magnesium 2.0 07/31/17 07/31/17 07/31/17 05:24 10:51 17:25 Troponin I 0.064 0.055 0.065 Impressions: Chest X-Ray 07/30/17 18:24 IMPRESSION: Cardiomegaly without CHF. Cannot exclude a small left pleural effusion or limited left lower lobe infiltrate. Assessment & Plan - Diagnosis (1) Acute on chronic systolic CHF (congestive heart failure), NYHA class 4 Is this a current diagnosis for this admission?: Yes Plan: Lasix was switched to oral. Echocardiogram is pending. Patient may have diastolic dysfunction. He may require additional heart rate control. Further changes can be made after the echocardiogram results are known. (2) Essential hypertension Is this a current diagnosis for this admission?: Yes Plan: I have reviewed the patient's medication list. He is on carvedilol. He is also on Spironolactone. Echocardiogram is pending. May need to increase his dose of carvedilol secondary to his heart rate which at times is tachycardic. In any event I would like to see his heart rate less than 80. (3) VIOLETA (obstructive sleep apnea) Is this a current diagnosis for this admission?: Yes Plan: It would be beneficial for the patient to have his CPAP machine replaced. Apparently, he is working on this. (4) Type 2 diabetes mellitus Qualifiers: Diabetes mellitus detention insulin use: without extermination inspector use Diabetes mellitus complication status: with unspecified complications Qualified Code(s) : E11.8 - Type 2 diabetes mellitus with unspecified complications Is this a current diagnosis for this admission?: Yes Plan: Apparently, the patient uses metformin at home. He is on sliding scale here. He is allergic to UZMA inhibitors. (5) Chest pain Qualifiers: Chest pain type: unspecified Qualified Code(s): R07.9 - Chest pain, unspecified Is this a current diagnosis for this admission?: Yes Plan: The troponins are slightly elevated, but not clinically significant. He does not appear to have acute coronary syndrome. The troponins are likely elevated due to the dilated cardiomyopathy. Echocardiogram testing is pending. (6) Diabetic neuropathy Is this a current diagnosis for this admission?: Yes Plan: Continue gabapentin. I did inform the patient that he will continue to have symptoms lifelong. I have increased his dose of gabapentin by 30% during this hospitalization. I told him that this would take a few days to be effective. - Time Time Spent with patient: 15-24 minutes - Inpatient Certification Medical Necessity: Need Close Monitoring Due to Risk of Patient Decompensation, Risk of Diagnosis Which Will Require Inpatient Eval/Care/Monitoring
[2017-08-04] MEDS: TAMSULOSIN HCL 0.4 MG CAP.SR.24H PO SCH (17:43)
[2017-08-05] MEDS: ACETAMINOPHEN 325 MG TABLET PO PRN ×2 (01:41→10:51)
[2017-08-05] MEDS: NITROGLYCERIN 2% OINTMENT 1 GM PACKET TP SCH ×2 (03:43→08:43)
[2017-08-05] MEDS: LANSOPRAZOLE 15 MG TAB.RAP.DR PO SCH (05:19)
[2017-08-05 05:34] LABS: ANION GAP 11 (5-19); BLOOD UREA NITROGEN 33 mg/dL (7-20); CALCIUM 8.9 mg/dL (8.4-10.2); CARBON DIOXIDE 32 mmol/L (22-30); CHLORIDE 97 mmol/L (98-107); GLUCOSE 125 mg/dL (75-110); POTASSIUM 4.3 mmol/L (3.6-5.0); SODIUM 139.8 mmol/L (137-145)
[2017-08-05 08:03] LABS: APPEARANCE,URINE CLEAR; BILIRUBIN,URINE NEGATIVE (NEGATIVE); COLOR,URINE YELLOW; GLUCOSE, URINE NEGATIVE (NEGATIVE); KETONES,URINE NEGATIVE (NEGATIVE); LEUKOCYTE ESTERASE,URINE NEGATIVE (NEGATIVE); NITRITE,URINE NEGATIVE (NEGATIVE); PROTEIN,URINE NEGATIVE (NEGATIVE); URINE SPECIFIC GRAVITY 1.011; UROBILINOGEN,URINE NEGATIVE mg/dL (<2.0)
[2017-08-05] MEDS: FERROUS SULFATE 325 MG TABLET PO SCH ×3 (08:42→17:37)
[2017-08-05] MEDS: POTASSIUM CHLORIDE 10 MEQ TABLET.SA PO SCH (10:03)
[2017-08-05] MEDS: GABAPENTIN 300 MG CAPSULE PO SCH ×2 (10:03→21:02)
[2017-08-05] MEDS: ASPIRIN 81 MG TABLET, CHEWABLE PO SCH (10:03)
[2017-08-05] MEDS: ENOXAPARIN SODIUM INJ 40 MG/0.4 ML DISP.SYRIN SUBCUT SCH (10:03)
[2017-08-05] MEDS: OMEGA-3 ACID ETHYL ESTERS 1 GM CAPSULE PO SCH ×2 (10:03→17:37)
[2017-08-05] MEDS: ASCORBIC ACID 500 MG TABLET PO SCH (10:03)
[2017-08-05] MEDS: CLOPIDOGREL BISULFATE 75 MG TABLET PO SCH (10:07)
[2017-08-05] MEDS: DOCUSATE SODIUM 100 MG CAPSULE PO SCH (10:09)
[2017-08-05] MEDS: CYCLOSPORINE 0.05% OPH EMULSIO 0.4 ML DROPERETTE OU SCH ×2 (10:11→17:40)
--- NOTE | 2017-08-05 10:26 | XCELERA REPORT ---
[address] [address] Transthoracic Echocardiogram Report Name: ALEX KNIGHT Age: 61 yrs Gender: Male : 1955 Patient Status: Inpatient Patient Location: [address] [place] [address] Study Date: 08/04/2017 06:31 PM Height: 66 in Weight: 250 lb BSA: 2.2 m2 Procedure: A complete two-dimensional transthoracic echocardiogram was performed (2D, M-mode, spectral and color flow Doppler). The study was technically difficult with many images being suboptimal in quality. Reason For Study: CHF Ordering Physician: ERCI LAKHANI Performed By: Juany Shearer Interpretation Summary Left ventricular systolic function is severely reduced. The Ejection Fraction estimate is 25-30% Doppler measurements suggest pseudonormalized left ventricular relaxation, which is associated with grade II/IV or mild to moderate diastolic dysfunction There is mild concentric left ventricular hypertrophy. The left ventricle is mildly dilated. There is moderate to severe global hypokinesis of the left ventricle. The right ventricle is mild to moderately dilated. The right ventricular systolic function is mildly reduced. There is a mild amount of mitral regurgitation There is no mitral valve stenosis. There is a mild amount of aortic regurgitation There is no aortic valve stenosis There is a mild amount of tricuspid regurgitation There is moderate pulmonary hypertension by echo Right ventricular systolic pressure is estimated to be elevated at 40- 50mmHg. The aortic root is not well visualized. The inferior vena cava appeared normal and decreased < 50% with respiration (RAP 10-15 mmHg) There is no pericardial effusion. MMode/2D Measurements & Calculations RVDd: 4.4 cm LVIDd: 6.2 cm FS: 11.7 % Ao root diam: 3.3 cm IVSd: 1.1 cm LVIDs: 5.4 cm EDV(Teich): 191.1 ml LVPWd: 1.1 cm ESV(Teich): 143.6 ml Ao root area: 8.7 cm2 EF(Teich): 24.9 % LA dimension: 5.0 cm Doppler Measurements & Calculations MV E max vinicio: MV P1/2t max vinicio: Ao V2 max: AI max vinicio: 114.0 cm/sec 116.0 cm/sec 97.1 cm/sec 308.4 cm/sec MV A max vinicio: MV P1/2t: 37.4 msec Ao max PG: AI max P.9 cm/sec 3.8 mmHg 38.0 mmHg MV E/A: 2.3 MVA(P1/2t): 5.9 cm2 AI dec slope: MV dec slope: 907.3 cm/sec2 145.9 cm/sec2 MV dec time: AI P1/2t: 0.12 sec 618.9 msec LV V1 max PG: PA V2 max: PI end-d vinicio: TR max vinicio: 1.8 mmHg 159.7 cm/sec 150.7 cm/sec 300.8 cm/sec LV V1 max: PA max P.6 mmHg TR max P.6 cm/sec 36.2 mmHg Left Ventricle The left ventricle is mildly dilated. There is mild concentric left ventricular hypertrophy. Left ventricular systolic function is severely reduced. The Ejection Fraction estimate is 25-30%. Doppler measurements suggest pseudonormalized left ventricular relaxation, which is associated with grade II/IV or mild to moderate diastolic dysfunction. There is moderate to severe global hypokinesis of the left ventricle. Right Ventricle The right ventricle is mild to moderately dilated. There is normal right ventricular wall thickness. The right ventricular systolic function is mildly reduced. Atria The right atrium is moderately dilated. The left atrium is moderately dilated. Interarterial septum not well visualized and not well dopplered. Cannot comment on ASD/PFO presence. Mitral Valve The mitral valve is not well visualized. There is no mitral valve stenosis. There is a mild amount of mitral regurgitation. Aortic Valve The aortic valve is not well visualized secondary to technical limitations. There is no aortic valve stenosis. There is a mild amount of aortic regurgitation. Tricuspid Valve The tricuspid valve is not well visualized, but is grossly normal. There is no tricuspid stenosis. There is a mild amount of tricuspid regurgitation. There is moderate pulmonary hypertension by echo. Right ventricular systolic pressure is estimated to be elevated at 40-50mmHg. Pulmonic Valve The pulmonic valve is not well visualized. Great Vessels The aortic root is not well visualized. The inferior vena cava appeared normal and decreased < 50% with respiration (RAP 10-15 mmHg). Effusions There is no pericardial effusion. : ERIC LAKHANI > Pooja Patel
[2017-08-05] MEDS ORDERED: ISOSORBIDE MONONITRATE 30 MG TAB.ER.24H PO ONE (11:30)
[2017-08-05] MEDS ORDERED: GABAPENTIN 300 MG CAPSULE PO ONE (11:30)
[2017-08-05] MEDS: INSULIN LISPRO 100 UNIT/ML 3 ML VIAL SUBCUT PRN ×2 (11:55→22:10)
[2017-08-05] MEDS: CARVEDILOL 12.5 MG TABLET PO SCH ×2 (11:55→21:02)
[2017-08-05] MEDS: ALBUTEROL SULFATE 0.083% NEB 2.5 MG/3 ML AMPUL NEB PRN ×2 (16:09→19:47)
[2017-08-05] MEDS: TAMSULOSIN HCL 0.4 MG CAP.SR.24H PO SCH (17:37)
--- NOTE | 2017-08-05 19:19 | PDOC PROGRESS REPORT ---
Subjective Progress Note for:: 08/05/17 Subjective:: Patient complains of burning on urination and pain due to neuropathy in his legs. Review of systems All organ systems evaluated and negative except as in subjective All laboratories and significant diagnostics have been reviewed Reason For Visit: HEART FAILURE Physical Exam Vital Signs: Temp Pulse Resp BP Pulse Ox 97.5 F 95 22 H 95/64 L 99 08/05/17 03:43 08/05/17 03:43 08/05/17 03:43 08/05/17 03:43 08/05/17 03:43 Intake & Output 08/04/17 08/05/17 08/06/17 06:59 06:59 06:59 Intake Total 1460 1204 Output Total 1450 850 Balance 10 354 Weight 113.4 kg 112.5 kg General appearance: PRESENT: cooperative, morbidly obese Head exam: PRESENT: atraumatic, normocephalic Eye exam: PRESENT: conjunctiva pink, EOMI, PERRLA Neck exam: PRESENT: full ROM. ABSENT: JVD, lymphadenopathy, tenderness Respiratory exam: PRESENT: clear to auscultation rahul Cardiovascular exam: PRESENT: RRR. ABSENT: diastolic murmur, systolic murmur Vascular exam: PRESENT: normal capillary refill GI/Abdominal exam: PRESENT: normal bowel sounds, soft. ABSENT: tenderness Extremities exam: PRESENT: full ROM, other - 3+ pitting edema Musculoskeletal exam: ABSENT: ambulatory Neurological exam: PRESENT: alert, awake, oriented to person, oriented to place , oriented to time, oriented to situation, CN II-XII grossly intact Psychiatric exam: PRESENT: appropriate affect, normal mood Skin exam: PRESENT: dry, normal color Results Laboratory Results: 08/04/17 06:15 08/05/17 04:21 08/05/17 04:21 Sodium 139.8 Potassium 4.3 Chloride 97 L Carbon Dioxide 32 H Anion Gap 11 BUN 33 H Creatinine 1.43 H Est GFR ( Amer) > 60 Est GFR (Non-Af Amer) 50 L Glucose 125 H Calcium 8.9 07/31/17 07/31/17 07/31/17 05:24 10:51 17:25 Troponin I 0.064 0.055 0.065 Impressions: Chest X-Ray 07/30/17 18:24 IMPRESSION: Cardiomegaly without CHF. Cannot exclude a small left pleural effusion or limited left lower lobe infiltrate. Assessment & Plan - Diagnosis (1) Acute on chronic systolic CHF (congestive heart failure), NYHA class 4 Is this a current diagnosis for this admission?: Yes Plan: Will decrease losartan and will continue metoprolol. To discontinue Lasix to perform a renal functions (2) Diabetic neuropathy Qualifiers: Diabetes mellitus type: type 2 Diabetes mellitus complication detail: diabetic polyneuropathy Qualified Code(s): E11.42 - Type 2 diabetes mellitus with diabetic polyneuropathy Is this a current diagnosis for this admission?: Yes Plan: Continue present management (3) Essential hypertension Is this a current diagnosis for this admission?: Yes Plan: Blood pressure on the low side and will decrease losartan and continue metoprolol. 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 Will place patient on Diflucan - Time Time Spent with patient: 15-24 minutes Medications reviewed and adjusted accordingly: Yes Anticipated discharge: Home with Homehealth Within: within 48 hours - Inpatient Certification Based on my medical assessment, after consideration of the patient's comorbidities, presenting symptoms, or acuity I expect that the services needed warrant INPATIENT care.: Yes I certify that my determination is in accordance with my understanding of Medicare's requirements for reasonable and necessary INPATIENT services [42 CFR 412.3e].: Yes Medical Necessity: Need Close Monitoring Due to Risk of Patient Decompensation
[2017-08-05] MEDS: TRAMADOL HCL 50 MG TABLET PO PRN (21:01)
[2017-08-06] MEDS: ACETAMINOPHEN 325 MG TABLET PO PRN (00:06)
[2017-08-06] MEDS: TRAMADOL HCL 50 MG TABLET PO PRN (03:46)
[2017-08-06] MEDS: LANSOPRAZOLE 15 MG TAB.RAP.DR PO SCH (06:09)
[2017-08-06 09:04] LABS: ANION GAP 12 (5-19); BLOOD UREA NITROGEN 32 mg/dL (7-20); CALCIUM 9.4 mg/dL (8.4-10.2); CARBON DIOXIDE 30 mmol/L (22-30); CHLORIDE 97 mmol/L (98-107); GLUCOSE 157 mg/dL (75-110); POTASSIUM 5.1 mmol/L (3.6-5.0); SODIUM 138.7 mmol/L (137-145)
[2017-08-06] MEDS: ALBUTEROL SULFATE 0.083% NEB 2.5 MG/3 ML AMPUL NEB PRN ×2 (09:58→20:33)
[2017-08-06] MEDS: FERROUS SULFATE 325 MG TABLET PO SCH ×3 (10:00→17:41)
[2017-08-06 10:44] LABS: HEMATOCRIT 41.5 % (37.9-51.0); HEMOGLOBIN 13.4 g/dL (13.5-17.0); MEAN CORPUSCULAR HGB CONC 32.4 g/dL (32.0-36.0); MEAN CORPUSCULAR VOLUME 84 fl (80-97); PLATELET COUNT 232 10^3/uL (150-450); RED BLOOD COUNT 4.97 10^6/uL (4.35-5.55); WHITE BLOOD COUNT 7.7 10^3/uL (4.0-10.5)
[2017-08-06] MEDS: OMEGA-3 ACID ETHYL ESTERS 1 GM CAPSULE PO SCH ×2 (11:15→17:50)
[2017-08-06] MEDS: DOCUSATE SODIUM 100 MG CAPSULE PO SCH (11:16)
[2017-08-06] MEDS: ISOSORBIDE MONONITRATE 30 MG TAB.ER.24H PO SCH (11:16)
[2017-08-06] MEDS ORDERED: LORAZEPAM 0.5 MG TABLET PO PRN (11:17)
[2017-08-06] MEDS: FLUCONAZOLE 100 MG TABLET PO SCH (11:17)
[2017-08-06] MEDS: ASCORBIC ACID 500 MG TABLET PO SCH (11:17)
[2017-08-06] MEDS: LOSARTAN POTASSIUM 50 MG TABLET PO SCH (11:17)
[2017-08-06] MEDS: ASPIRIN 81 MG TABLET, CHEWABLE PO SCH (11:18)
[2017-08-06] MEDS: POTASSIUM CHLORIDE 10 MEQ TABLET.SA PO SCH (11:18)
[2017-08-06] MEDS: CARVEDILOL 12.5 MG TABLET PO SCH ×2 (11:18→21:54)
[2017-08-06] MEDS: GABAPENTIN 300 MG CAPSULE PO SCH ×2 (11:18→21:54)
[2017-08-06] MEDS: CLOPIDOGREL BISULFATE 75 MG TABLET PO SCH (11:19)
[2017-08-06] MEDS: CYCLOSPORINE 0.05% OPH EMULSIO 0.4 ML DROPERETTE OU SCH ×2 (11:21→17:49)
[2017-08-06] MEDS: ENOXAPARIN SODIUM INJ 40 MG/0.4 ML DISP.SYRIN SUBCUT SCH (11:22)
[2017-08-06] MEDS: INSULIN LISPRO 100 UNIT/ML 3 ML VIAL SUBCUT PRN (14:11)
--- NOTE | 2017-08-06 15:26 | PDOC PROGRESS REPORT ---
Subjective Progress Note for:: 08/06/17 Subjective:: First of the neuropathy in his legs is better. Continues having burning in his penis. Also complains of having shortness of breath Review of systems All organ systems evaluated and negative except as in subjective All laboratories and significant diagnostics have been reviewed Reason For Visit: HEART FAILURE Physical Exam Vital Signs: Temp Pulse Resp BP Pulse Ox 97.5 F 97 27 H 105/67 97 08/06/17 03:55 08/06/17 03:55 08/06/17 03:55 08/06/17 03:55 08/06/17 03:55 Intake & Output 08/04/17 08/05/17 08/06/17 06:59 06:59 06:59 Intake Total 1460 1204 2443 Output Total 9000 821 1555 Balance 10 354 1143 Weight 113.4 kg 112.5 kg General appearance: PRESENT: cooperative, morbidly obese Head exam: PRESENT: atraumatic, normocephalic Eye exam: PRESENT: conjunctiva pink, EOMI, PERRLA Ear exam: PRESENT: normal external ear exam Mouth exam: PRESENT: moist Neck exam: PRESENT: full ROM. ABSENT: JVD, lymphadenopathy, tenderness Respiratory exam: PRESENT: decreased breath sounds. ABSENT: tachypnea, unlabored, wheezes Cardiovascular exam: PRESENT: RRR. ABSENT: diastolic murmur, systolic murmur Vascular exam: PRESENT: normal capillary refill GI/Abdominal exam: PRESENT: ascites, normal bowel sounds, soft. ABSENT: tenderness Extremities exam: PRESENT: full ROM Musculoskeletal exam: PRESENT: ambulatory - 3+ edema Neurological exam: PRESENT: alert, awake, oriented to person, oriented to place , oriented to time, oriented to situation, CN II-XII grossly intact Psychiatric exam: PRESENT: appropriate affect, normal mood Skin exam: PRESENT: intact, normal color Results Laboratory Results: 08/04/17 06:15 08/05/17 04:21 08/05/17 06:40 Urine Color YELLOW Urine Appearance CLEAR Urine pH 5.0 Ur Specific [place] 1.011 Urine Protein NEGATIVE Urine Glucose (UA) NEGATIVE Urine Ketones NEGATIVE Urine Blood NEGATIVE Urine Nitrite NEGATIVE Ur Leukocyte Esterase NEGATIVE Urine WBC (Auto) 0 07/31/17 07/31/17 07/31/17 05:24 10:51 17:25 Troponin I 0.064 0.055 0.065 Impressions: Chest X-Ray 07/30/17 18:24 IMPRESSION: Cardiomegaly without CHF. Cannot exclude a small left pleural effusion or limited left lower lobe infiltrate. Assessment & Plan - Diagnosis (1) Diabetic neuropathy Qualifiers: Diabetes mellitus type: type 2 Diabetes mellitus complication detail: diabetic polyneuropathy Qualified Code(s): E11.42 - Type 2 diabetes mellitus with diabetic polyneuropathy Is this a current diagnosis for this admission?: Yes Plan: Continue present management (2) Essential hypertension Is this a current diagnosis for this admission?: Yes Plan: Patient is cardiorenal. Discuss with Dr. Patel who recommends midodrine ( informal consult). 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 Continue Diflucan for now (6) Acute on chronic systolic and diastolic heart failure, NYHA class 4 Is this a current diagnosis for this admission?: Yes Plan: Will start midodrine and will consider starting Entresto (7) DEANNA (acute kidney injury) Is this a current diagnosis for this admission?: Yes Plan: Due to cardiorenal syndrome. Will monitor closely since restarting diuretics - Time Time Spent with patient: 15-24 minutes Medications reviewed and adjusted accordingly: Yes Anticipated discharge: Home with Homehealth Within: within 72 hours - Inpatient Certification Based on my medical assessment, after consideration of the patient's comorbidities, presenting symptoms, or acuity I expect that the services needed warrant INPATIENT care.: Yes I certify that my determination is in accordance with my understanding of Medicare's requirements for reasonable and necessary INPATIENT services [42 CFR 412.3e].: Yes Medical Necessity: Need Close Monitoring Due to Risk of Patient Decompensation
[2017-08-06] MEDS: TAMSULOSIN HCL 0.4 MG CAP.SR.24H PO SCH (17:41)
[2017-08-06] MEDS: MIDODRINE HCL 5 MG TABLET PO SCH (17:42)
[2017-08-06] MEDS: BUMETANIDE 1 MG TABLET PO SCH (17:47)
[2017-08-07 02:38] LABS: APPEARANCE,URINE CLEAR; BILIRUBIN,URINE NEGATIVE (NEGATIVE); COLOR,URINE STRAW; GLUCOSE, URINE NEGATIVE (NEGATIVE); KETONES,URINE NEGATIVE (NEGATIVE); LEUKOCYTE ESTERASE,URINE NEGATIVE (NEGATIVE); NITRITE,URINE NEGATIVE (NEGATIVE); PROTEIN,URINE NEGATIVE (NEGATIVE); URINE SPECIFIC GRAVITY 1.008; UROBILINOGEN,URINE NEGATIVE mg/dL (<2.0)
[2017-08-07] MEDS: LANSOPRAZOLE 15 MG TAB.RAP.DR PO SCH (06:18)
[2017-08-07 07:34] LABS: ANION GAP 10 (5-19); BLOOD UREA NITROGEN 35 mg/dL (7-20); CALCIUM 9.2 mg/dL (8.4-10.2); CARBON DIOXIDE 31 mmol/L (22-30); CHLORIDE 98 mmol/L (98-107); GLUCOSE 121 mg/dL (75-110); POTASSIUM 5.3 mmol/L (3.6-5.0); SODIUM 138.6 mmol/L (137-145)
[2017-08-07] MEDS: DOCUSATE SODIUM 100 MG CAPSULE PO SCH (11:12)
[2017-08-07] MEDS: BUMETANIDE 1 MG TABLET PO SCH ×2 (11:13→18:15)
[2017-08-07] MEDS: OMEGA-3 ACID ETHYL ESTERS 1 GM CAPSULE PO SCH ×2 (11:13→18:17)
[2017-08-07] MEDS: CLOPIDOGREL BISULFATE 75 MG TABLET PO SCH (11:14)
[2017-08-07] MEDS: FERROUS SULFATE 325 MG TABLET PO SCH ×3 (11:15→18:16)
[2017-08-07] MEDS: ASCORBIC ACID 500 MG TABLET PO SCH (11:15)
[2017-08-07] MEDS: GABAPENTIN 300 MG CAPSULE PO SCH ×2 (11:16→21:46)
[2017-08-07] MEDS: ASPIRIN 81 MG TABLET, CHEWABLE PO SCH (11:16)
[2017-08-07] MEDS: FLUCONAZOLE 100 MG TABLET PO SCH (11:16)
[2017-08-07] MEDS: POTASSIUM CHLORIDE 10 MEQ TABLET.SA PO SCH (11:16)
[2017-08-07] MEDS: MIDODRINE HCL 5 MG TABLET PO SCH ×3 (11:17→18:18)
[2017-08-07] MEDS: ENOXAPARIN SODIUM INJ 40 MG/0.4 ML DISP.SYRIN SUBCUT SCH (11:18)
[2017-08-07] MEDS: ISOSORBIDE MONONITRATE 30 MG TAB.ER.24H PO SCH (11:18)
[2017-08-07] MEDS: CYCLOSPORINE 0.05% OPH EMULSIO 0.4 ML DROPERETTE OU SCH ×2 (11:19→18:15)
[2017-08-07] MEDS: ALBUTEROL SULFATE 0.083% NEB 2.5 MG/3 ML AMPUL NEB PRN ×2 (11:43→22:58)
[2017-08-07] MEDS: CARVEDILOL 12.5 MG TABLET PO SCH ×2 (13:08→21:46)
[2017-08-07] MEDS: LOSARTAN POTASSIUM 50 MG TABLET PO SCH (13:08)
[2017-08-07] MEDS: INSULIN LISPRO 100 UNIT/ML 3 ML VIAL SUBCUT PRN (13:17)
[2017-08-07 14:52] LABS: APPEARANCE,URINE CLEAR; BILIRUBIN,URINE NEGATIVE (NEGATIVE); COLOR,URINE STRAW; GLUCOSE, URINE NEGATIVE (NEGATIVE); KETONES,URINE NEGATIVE (NEGATIVE); LEUKOCYTE ESTERASE,URINE NEGATIVE (NEGATIVE); NITRITE,URINE NEGATIVE (NEGATIVE); PROTEIN,URINE NEGATIVE (NEGATIVE); URINE SPECIFIC GRAVITY 1.005; UROBILINOGEN,URINE NEGATIVE mg/dL (<2.0)
[2017-08-07] MEDS: TAMSULOSIN HCL 0.4 MG CAP.SR.24H PO SCH (18:21)
--- NOTE | 2017-08-07 21:20 | PDOC PROGRESS REPORT ---
Subjective Progress Note for:: 08/07/17 Subjective:: Patient relates that he cannot tolerate the CPAP for 2 hours since gets clautrophobic. Still having pain and swelling in his penis. Review of systems All organ systems evaluated and negative except as in subjective All laboratories and significant diagnostics have been reviewed Reason For Visit: HEART FAILURE Physical Exam Vital Signs: Temp Pulse Resp BP Pulse Ox 97.5 F 91 16 130/111 H 95 08/06/17 23:25 08/07/17 02:00 08/06/17 23:25 08/06/17 23:25 08/07/17 00:27 Intake & Output 08/05/17 08/06/17 08/07/17 06:59 06:59 06:59 Intake Total 1204 2443 1290 Output Total 850 1300 500 Balance 354 1143 790 Weight 112.5 kg General appearance: PRESENT: cooperative, morbidly obese Head exam: PRESENT: atraumatic, normocephalic Eye exam: PRESENT: conjunctiva pink, EOMI, PERRLA Neck exam: PRESENT: full ROM. ABSENT: JVD, lymphadenopathy, tenderness Respiratory exam: PRESENT: crackles Cardiovascular exam: PRESENT: RRR. ABSENT: diastolic murmur, systolic murmur GI/Abdominal exam: PRESENT: rigid. ABSENT: tenderness Extremities exam: PRESENT: full ROM Musculoskeletal exam: PRESENT: ambulatory - 3+ edema Neurological exam: PRESENT: alert, awake, oriented to person, oriented to place , oriented to time, oriented to situation Psychiatric exam: PRESENT: appropriate affect, normal mood Skin exam: PRESENT: intact, normal color Results Laboratory Results: 08/06/17 09:59 08/06/17 08:06 08/06/17 08/06/17 08/06/17 08:06 08:06 09:59 WBC Cancelled 7.7 RBC Cancelled 4.97 Hgb Cancelled 13.4 L Hct Cancelled 41.5 MCV Cancelled 84 MCH Cancelled 27.0 MCHC Cancelled 32.4 RDW Cancelled 16.0 H Plt Count Cancelled 232 Sodium 138.7 Potassium 5.1 H Chloride 97 L Carbon Dioxide 30 Anion Gap 12 BUN 32 H Creatinine 1.26 H Est GFR ( Amer) > 60 Est GFR (Non-Af Amer) 58 L Glucose 157 H Calcium 9.4 Urine Color Urine Appearance Urine pH Ur Specific [place] Urine Protein Urine Glucose (UA) Urine Ketones Urine Blood Urine Nitrite Ur Leukocyte Esterase Urine RBC (Auto) 08/07/17 00:20 WBC RBC Hgb Hct MCV MCH MCHC RDW Plt Count Sodium Potassium Chloride Carbon Dioxide Anion Gap BUN Creatinine Est GFR ( Amer) Est GFR (Non-Af Amer) Glucose Calcium Urine Color STRAW Urine Appearance CLEAR Urine pH 5.0 Ur Specific [place] 1.008 Urine Protein NEGATIVE Urine Glucose (UA) NEGATIVE Urine Ketones NEGATIVE Urine Blood NEGATIVE Urine Nitrite NEGATIVE Ur Leukocyte Esterase NEGATIVE Urine RBC (Auto) 0 07/31/17 07/31/17 07/31/17 05:24 10:51 17:25 Troponin I 0.064 0.055 0.065 Impressions: Chest X-Ray 07/30/17 18:24 IMPRESSION: Cardiomegaly without CHF. Cannot exclude a small left pleural effusion or limited left lower lobe infiltrate. Assessment & Plan - Diagnosis (1) Diabetic neuropathy Qualifiers: Diabetes mellitus type: type 2 Diabetes mellitus complication detail: diabetic polyneuropathy Qualified Code(s): E11.42 - Type 2 diabetes mellitus with diabetic polyneuropathy Is this a current diagnosis for this admission?: Yes Plan: Continue present management (2) Essential hypertension Is this a current diagnosis for this admission?: Yes Plan: Patient is cardiorenal. Increase coreg. Anticipate to start Entresto hopefully soon (3) VIOLETA (obstructive sleep apnea) Is this a current diagnosis for this admission?: Yes Plan: May be contributing to overall presentation. Respiratory approached to place CPAP for 2 hours daily (4) Type 2 diabetes mellitus Qualifiers: Diabetes mellitus alf insulin use: without alf use Diabetes mellitus complication status: with unspecified complications Qualified Code(s) : E11.8 - Type 2 diabetes mellitus with unspecified complications Is this a current diagnosis for this admission?: Yes Plan: Continue present management. Stable (5) Dysuria Is this a current diagnosis for this admission?: Yes Plan: Urinalysis noted. Continue Diflucan but likley relate to swelling (6) Acute on chronic systolic and diastolic heart failure, NYHA class 4 Is this a current diagnosis for this admission?: Yes Plan: Increase coreg. Anticipate to start Entresto soon (7) DEANNA (acute kidney injury) Is this a current diagnosis for this admission?: Yes Plan: Due to cardiorenal syndrome. Will monitor closely since restarting diuretics - Time Time Spent with patient: 15-24 minutes Medications reviewed and adjusted accordingly: Yes Anticipated discharge: Home with Homehealth Within: within 72 hours - Inpatient Certification Based on my medical assessment, after consideration of the patient's comorbidities, presenting symptoms, or acuity I expect that the services needed warrant INPATIENT care.: Yes I certify that my determination is in accordance with my understanding of Medicare's requirements for reasonable and necessary INPATIENT services [42 CFR 412.3e].: Yes Medical Necessity: Need Close Monitoring Due to Risk of Patient Decompensation, Need For Continuous Telemetry Monitoring
[2017-08-07] MEDS: ACETAMINOPHEN 325 MG TABLET PO PRN (23:37)
[2017-08-08] MEDS: LANSOPRAZOLE 15 MG TAB.RAP.DR PO SCH (05:53)
[2017-08-08 08:13] LABS: HEMATOCRIT 40.3 % (37.9-51.0); MEAN CORPUSCULAR HEMOGLOBIN 27.3 pg (27.0-33.4); MEAN CORPUSCULAR HGB CONC 32.3 g/dL (32.0-36.0); MEAN CORPUSCULAR VOLUME 84 fl (80-97); PLATELET COUNT 204 10^3/uL (150-450); RED BLOOD COUNT 4.78 10^6/uL (4.35-5.55); RED CELL DISTRIBUTION WIDTH 16.5 % (11.5-14.0); WHITE BLOOD COUNT 6.5 10^3/uL (4.0-10.5)
[2017-08-08] MEDS ORDERED: SODIUM POLYSTYRENE SULFONATE 15 GM/60 ML PO ONE (09:16)
[2017-08-08] MEDS: CARVEDILOL 12.5 MG TABLET PO SCH ×2 (10:46→21:44)
[2017-08-08] MEDS: FERROUS SULFATE 325 MG TABLET PO SCH ×3 (10:46→17:38)
[2017-08-08] MEDS: CLOPIDOGREL BISULFATE 75 MG TABLET PO SCH (10:46)
[2017-08-08] MEDS: OMEGA-3 ACID ETHYL ESTERS 1 GM CAPSULE PO SCH ×2 (10:46→17:38)
[2017-08-08] MEDS: ASCORBIC ACID 500 MG TABLET PO SCH (10:46)
[2017-08-08] MEDS: BUMETANIDE 1 MG TABLET PO SCH ×2 (10:46→17:40)
[2017-08-08] MEDS: GABAPENTIN 300 MG CAPSULE PO SCH ×2 (10:46→21:45)
[2017-08-08] MEDS: ASPIRIN 81 MG TABLET, CHEWABLE PO SCH (10:46)
[2017-08-08] MEDS: ISOSORBIDE MONONITRATE 30 MG TAB.ER.24H PO SCH (10:47)
[2017-08-08] MEDS: FLUCONAZOLE 100 MG TABLET PO SCH (10:47)
[2017-08-08] MEDS: FENTANYL 25 MCG/HR PATCH.TD72 TD SCH (10:47)
[2017-08-08] MEDS: DOCUSATE SODIUM 100 MG CAPSULE PO SCH (10:47)
[2017-08-08] MEDS: ENOXAPARIN SODIUM INJ 40 MG/0.4 ML DISP.SYRIN SUBCUT SCH (10:47)
[2017-08-08] MEDS: CYCLOSPORINE 0.05% OPH EMULSIO 0.4 ML DROPERETTE OU SCH ×2 (10:47→17:40)
[2017-08-08] MEDS: MIDODRINE HCL 5 MG TABLET PO SCH ×3 (10:47→17:40)
[2017-08-08] MEDS: LOSARTAN POTASSIUM 50 MG TABLET PO SCH (10:47)
[2017-08-08 13:43] LABS: APPEARANCE,URINE CLEAR; BILIRUBIN,URINE NEGATIVE (NEGATIVE); COLOR,URINE STRAW; GLUCOSE, URINE NEGATIVE (NEGATIVE); KETONES,URINE NEGATIVE (NEGATIVE); LEUKOCYTE ESTERASE,URINE NEGATIVE (NEGATIVE); NITRITE,URINE NEGATIVE (NEGATIVE); PROTEIN,URINE NEGATIVE (NEGATIVE); URINE SPECIFIC GRAVITY 1.009; UROBILINOGEN,URINE NEGATIVE mg/dL (<2.0)
[2017-08-08] MEDS: TAMSULOSIN HCL 0.4 MG CAP.SR.24H PO SCH (17:38)
--- NOTE | 2017-08-08 19:45 | PDOC PROGRESS REPORT ---
Subjective Progress Note for:: 08/08/17 Subjective:: Patient states that was not able to sleep last night because of pain in his legs due to neuropathy. Also states that had only been able to urinate a little bit at a time Review of systems All organ systems evaluated and negative except as in subjective All laboratories and significant diagnostics have been reviewed Reason For Visit: HEART FAILURE Physical Exam Vital Signs: Temp Pulse Resp BP Pulse Ox 97.6 F 91 28 H 100/73 97 08/08/17 07:00 08/08/17 07:00 08/08/17 07:00 08/08/17 07:00 08/08/17 07:00 Intake & Output 08/07/17 08/08/17 08/09/17 06:59 06:59 06:59 Intake Total 1290 3329 Output Total 500 1603 Balance 790 1726 General appearance: PRESENT: cooperative, morbidly obese Head exam: PRESENT: atraumatic, normocephalic Eye exam: PRESENT: conjunctiva pink, EOMI, PERRLA Ear exam: PRESENT: normal external ear exam Respiratory exam: PRESENT: clear to auscultation rahul Cardiovascular exam: PRESENT: RRR. ABSENT: diastolic murmur, systolic murmur GI/Abdominal exam: PRESENT: distended, normal bowel sounds. ABSENT: tenderness Extremities exam: PRESENT: full ROM - 3+ pedal edema Musculoskeletal exam: PRESENT: ambulatory Neurological exam: PRESENT: alert, awake, oriented to person, oriented to place , oriented to time, oriented to situation Psychiatric exam: PRESENT: anxious Results Laboratory Results: 08/08/17 07:39 08/07/17 06:40 08/07/17 08/08/17 14:10 07:39 WBC 6.5 RBC 4.78 Hgb 13.0 L Hct 40.3 MCV 84 MCH 27.3 MCHC 32.3 RDW 16.5 H Plt Count 204 Urine Color STRAW Urine Appearance CLEAR Urine pH 5.0 Ur Specific [place] 1.005 Urine Protein NEGATIVE Urine Glucose (UA) NEGATIVE Urine Ketones NEGATIVE Urine Blood NEGATIVE Urine Nitrite NEGATIVE Ur Leukocyte Esterase NEGATIVE Urine WBC (Auto) 0 Urine RBC (Auto) 0 07/31/17 07/31/17 07/31/17 05:24 10:51 17:25 Troponin I 0.064 0.055 0.065 Impressions: Chest X-Ray 07/30/17 18:24 IMPRESSION: Cardiomegaly without CHF. Cannot exclude a small left pleural effusion or limited left lower lobe infiltrate. Assessment & Plan - Diagnosis (1) Diabetic neuropathy Qualifiers: Diabetes mellitus type: type 2 Diabetes mellitus complication detail: diabetic polyneuropathy Qualified Code(s): E11.42 - Type 2 diabetes mellitus with diabetic polyneuropathy Is this a current diagnosis for this admission?: Yes Plan: To try fentanyl patch and continue tramadol for breakthrough pain (2) Essential hypertension Is this a current diagnosis for this admission?: Yes Plan: Patient is cardiorenal. Stable on current regiment. Would consider trial of Entresto in a.m. (3) VIOLETA (obstructive sleep apnea) Is this a current diagnosis for this admission?: Yes Plan: May be contributing to overall presentation. CPAP at least 2 hours or as tolerated. 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 Stable (5) Dysuria Is this a current diagnosis for this admission?: Yes Plan: Urinalysis noted. Likely relate to swelling of his penis (6) Acute on chronic systolic and diastolic heart failure, NYHA class 4 Is this a current diagnosis for this admission?: Yes Plan: Increase coreg. Anticipate to start Entresto soon (7) DEANNA (acute kidney injury) Is this a current diagnosis for this admission?: Yes Plan: Due to cardiorenal syndrome. Will monitor closely since on diuretics (8) Urinary retention Is this a current diagnosis for this admission?: Yes Plan: Order Chowdhury cath - Time Time Spent with patient: 15-24 minutes Medications reviewed and adjusted accordingly: Yes Anticipated discharge: Home with Homehealth Within: within 72 hours - Inpatient Certification Based on my medical assessment, after consideration of the patient's comorbidities, presenting symptoms, or acuity I expect that the services needed warrant INPATIENT care.: Yes I certify that my determination is in accordance with my understanding of Medicare's requirements for reasonable and necessary INPATIENT services [42 CFR 412.3e].: Yes Medical Necessity: Need Close Monitoring Due to Risk of Patient Decompensation, Need For Continuous Telemetry Monitoring, Need for Pain Control
[2017-08-08] MEDS: ACETAMINOPHEN 325 MG TABLET PO PRN (21:43)
[2017-08-08] MEDS: INSULIN LISPRO 100 UNIT/ML 3 ML VIAL SUBCUT PRN (21:45)
[2017-08-09] MEDS: ACETAMINOPHEN 325 MG TABLET PO PRN ×3 (04:07→22:14)
[2017-08-09] MEDS: LANSOPRAZOLE 15 MG TAB.RAP.DR PO SCH (04:07)
[2017-08-09 06:23] LABS: ANION GAP 11 (5-19); BLOOD UREA NITROGEN 38 mg/dL (7-20); CALCIUM 8.7 mg/dL (8.4-10.2); CARBON DIOXIDE 34 mmol/L (22-30); CHLORIDE 98 mmol/L (98-107); GLUCOSE 102 mg/dL (75-110); POTASSIUM 3.9 mmol/L (3.6-5.0); SODIUM 143.4 mmol/L (137-145)
[2017-08-09] MEDS: FERROUS SULFATE 325 MG TABLET PO SCH ×3 (08:04→17:28)
[2017-08-09] MEDS: ALBUTEROL SULFATE 0.083% NEB 2.5 MG/3 ML AMPUL NEB PRN (08:12)
[2017-08-09] MEDS: BUMETANIDE 1 MG TABLET PO SCH ×2 (09:30→17:28)
[2017-08-09] MEDS: CLOPIDOGREL BISULFATE 75 MG TABLET PO SCH (09:30)
[2017-08-09] MEDS: CARVEDILOL 12.5 MG TABLET PO SCH ×2 (09:33→22:14)
[2017-08-09] MEDS: DOCUSATE SODIUM 100 MG CAPSULE PO SCH (09:33)
[2017-08-09] MEDS: OMEGA-3 ACID ETHYL ESTERS 1 GM CAPSULE PO SCH ×2 (09:34→17:28)
[2017-08-09] MEDS: ISOSORBIDE MONONITRATE 30 MG TAB.ER.24H PO SCH (09:34)
[2017-08-09] MEDS: GABAPENTIN 300 MG CAPSULE PO SCH (09:35)
[2017-08-09] MEDS: MIDODRINE HCL 5 MG TABLET PO SCH ×3 (09:35→17:28)
[2017-08-09] MEDS: ASPIRIN 81 MG TABLET, CHEWABLE PO SCH (09:36)
[2017-08-09] MEDS: LOSARTAN POTASSIUM 50 MG TABLET PO SCH (09:36)
[2017-08-09] MEDS: CYCLOSPORINE 0.05% OPH EMULSIO 0.4 ML DROPERETTE OU SCH ×2 (09:37→17:28)
[2017-08-09] MEDS: ASCORBIC ACID 500 MG TABLET PO SCH (09:37)
[2017-08-09] MEDS: ENOXAPARIN SODIUM INJ 40 MG/0.4 ML DISP.SYRIN SUBCUT SCH (09:38)
[2017-08-09] MEDS ORDERED: HYDRALAZINE HCL 10 MG TABLET PO ONE (12:00)
[2017-08-09] MEDS ORDERED: DULOXETINE HCL 20 MG CAPSULE.DR PO ONE (12:00)
[2017-08-09] MEDS: INSULIN LISPRO 100 UNIT/ML 3 ML VIAL SUBCUT PRN ×2 (12:10→22:13)
[2017-08-09] MEDS ORDERED: GABAPENTIN 300 MG CAPSULE PO SCH (14:00)
[2017-08-09] MEDS: GABAPENTIN 100 MG CAPSULE PO SCH ×2 (14:15→22:14)
--- NOTE | 2017-08-09 15:55 | PDOC PROGRESS REPORT ---
Subjective Progress Note for:: 08/09/17 Subjective:: Patient states that the pain is better however was not able to sleep last night because of the pain. He admits that he scared of going to sleep. Shortness of breath is better Review of systems All organ systems evaluated and negative except as in subjective All laboratories and significant diagnostics have been reviewed Reason For Visit: HEART FAILURE Physical Exam Vital Signs: Temp Pulse Resp BP Pulse Ox 97.1 F 87 19 106/70 99 08/09/17 11:15 08/09/17 14:00 08/09/17 11:15 08/09/17 11:15 08/09/17 11:15 Intake & Output 08/08/17 08/09/17 08/10/17 06:59 06:59 06:59 Intake Total 3329 673 1788 Output Total 1603 2850 1050 Balance 1726 -2177 738 General appearance: PRESENT: cooperative, morbidly obese Head exam: PRESENT: atraumatic, normocephalic Eye exam: PRESENT: conjunctiva pink, EOMI, PERRLA Ear exam: PRESENT: normal external ear exam Mouth exam: PRESENT: moist Neck exam: PRESENT: full ROM. ABSENT: JVD, lymphadenopathy, tenderness Respiratory exam: PRESENT: clear to auscultation rahul Cardiovascular exam: PRESENT: RRR. ABSENT: diastolic murmur, systolic murmur Vascular exam: PRESENT: normal capillary refill GI/Abdominal exam: PRESENT: normal bowel sounds, soft. ABSENT: tenderness Extremities exam: PRESENT: full ROM Musculoskeletal exam: PRESENT: ambulatory - 3+ edema Neurological exam: PRESENT: alert, awake, oriented to person, oriented to place , oriented to time, oriented to situation Psychiatric exam: PRESENT: appropriate affect, normal mood Skin exam: PRESENT: intact, normal color Results Laboratory Results: 08/08/17 07:39 08/09/17 05:12 08/09/17 05:12 Sodium 143.4 Potassium 3.9 Chloride 98 Carbon Dioxide 34 H Anion Gap 11 BUN 38 H Creatinine 1.39 H Est GFR ( Amer) > 60 Est GFR (Non-Af Amer) 52 L Glucose 102 Calcium 8.7 07/31/17 07/31/17 07/31/17 05:24 10:51 17:25 Troponin I 0.064 0.055 0.065 Impressions: Chest X-Ray 07/30/17 18:24 IMPRESSION: Cardiomegaly without CHF. Cannot exclude a small left pleural effusion or limited left lower lobe infiltrate. Assessment & Plan - Diagnosis (1) Diabetic neuropathy Qualifiers: Diabetes mellitus type: type 2 Diabetes mellitus complication detail: diabetic polyneuropathy Qualified Code(s): E11.42 - Type 2 diabetes mellitus with diabetic polyneuropathy Is this a current diagnosis for this admission?: Yes Plan: To add Cymbalta. To change gabapentin to 200 mg 1 p[address] on trazodone at bedtime (2) Essential hypertension Is this a current diagnosis for this admission?: Yes Plan: Patient is cardiorenal. Stable since adding midodrine. (3) VIOLETA (obstructive sleep apnea) Is this a current diagnosis for this admission?: Yes Plan: May be contributing to overall presentation. CPAP at least 2 hours or as tolerated. 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 Stable (5) Dysuria Is this a current diagnosis for this admission?: Yes Plan: Urinalysis noted. Likely relate to swelling of his penis (6) Acute on chronic systolic and diastolic heart failure, NYHA class 4 Is this a current diagnosis for this admission?: Yes Plan: Will decrease Coreg. To try a combination of low-dose hydralazine and Imdur. (7) DEANNA (acute kidney injury) Is this a current diagnosis for this admission?: Yes Plan: Due to cardiorenal syndrome. Resolved. Will monitor closely since on diuretics (8) Urinary retention Is this a current diagnosis for this admission?: Yes Plan: Did not tolerate Chowdhury cath - Time Time Spent with patient: 15-24 minutes Medications reviewed and adjusted accordingly: Yes Anticipated discharge: Home with Homehealth Within: within 48 hours - Inpatient Certification Based on my medical assessment, after consideration of the patient's comorbidities, presenting symptoms, or acuity I expect that the services needed warrant INPATIENT care.: Yes I certify that my determination is in accordance with my understanding of Medicare's requirements for reasonable and necessary INPATIENT services [42 CFR 412.3e].: Yes Medical Necessity: Need Close Monitoring Due to Risk of Patient Decompensation, Need For Continuous Telemetry Monitoring, Need for Pain Control
[2017-08-09] MEDS: TAMSULOSIN HCL 0.4 MG CAP.SR.24H PO SCH (17:28)
[2017-08-09] MEDS ORDERED: HYDRALAZINE HCL 10 MG TABLET PO SCH (22:00)
[2017-08-09] MEDS: TRAMADOL HCL 50 MG TABLET PO PRN (22:14)
[2017-08-09] MEDS: FLUTICASONE/SALMETEROL DISKUS 250-50 MCG/DOSE IH SCH (22:15)
[2017-08-09] MEDS: TRAZODONE HCL 50 MG TABLET PO SCH (22:15)
[2017-08-09] MEDS ORDERED: LEVALBUTEROL HCL NEB 0.63 MG/3 ML AMPUL NEB ONE (23:12)
[2017-08-09] MEDS ORDERED: LEVALBUTEROL HCL NEB 1.25 MG/3 ML AMPUL NEB PRN (23:33)
[2017-08-10] MEDS: GABAPENTIN 100 MG CAPSULE PO SCH ×3 (06:52→22:04)
[2017-08-10] MEDS: LANSOPRAZOLE 15 MG TAB.RAP.DR PO SCH (06:52)
[2017-08-10] MEDS: FERROUS SULFATE 325 MG TABLET PO SCH ×3 (10:07→17:22)
[2017-08-10] MEDS: ASCORBIC ACID 500 MG TABLET PO SCH (10:07)
[2017-08-10] MEDS: CARVEDILOL 12.5 MG TABLET PO SCH ×2 (10:08→22:05)
[2017-08-10] MEDS: CYCLOSPORINE 0.05% OPH EMULSIO 0.4 ML DROPERETTE OU SCH ×2 (10:08→17:22)
[2017-08-10] MEDS: CLOPIDOGREL BISULFATE 75 MG TABLET PO SCH (10:08)
[2017-08-10] MEDS: BUMETANIDE 1 MG TABLET PO SCH ×2 (10:08→17:22)
[2017-08-10] MEDS: ASPIRIN 81 MG TABLET, CHEWABLE PO SCH (10:08)
[2017-08-10] MEDS: DOCUSATE SODIUM 100 MG CAPSULE PO SCH (10:08)
[2017-08-10] MEDS: DULOXETINE HCL 20 MG CAPSULE.DR PO SCH (10:09)
[2017-08-10] MEDS: ISOSORBIDE MONONITRATE 30 MG TAB.ER.24H PO SCH (10:09)
[2017-08-10] MEDS: LOSARTAN POTASSIUM 50 MG TABLET PO SCH (10:09)
[2017-08-10] MEDS: FLUTICASONE/SALMETEROL DISKUS 250-50 MCG/DOSE IH SCH ×2 (10:09→22:04)
[2017-08-10] MEDS: MIDODRINE HCL 5 MG TABLET PO SCH ×3 (10:10→17:22)
[2017-08-10] MEDS: TIOTROPIUM BROMIDE DPI 5 CAP/KIT (18 MCG/CAP) IH SCH (10:10)
[2017-08-10] MEDS: ENOXAPARIN SODIUM INJ 40 MG/0.4 ML DISP.SYRIN SUBCUT SCH (10:10)
[2017-08-10] MEDS: OMEGA-3 ACID ETHYL ESTERS 1 GM CAPSULE PO SCH ×2 (10:10→17:23)
[2017-08-10] MEDS ORDERED: IPRATROPIUM/ALBUTEROL 0.5-2.5 MG/3 ML AMPUL NEB PRN (11:13)
[2017-08-10] MEDS ORDERED: IPRATROPIUM/ALBUTEROL 0.5-2.5 MG/3 ML AMPUL NEB ONE (11:15)
[2017-08-10] MEDS: INSULIN LISPRO 100 UNIT/ML 3 ML VIAL SUBCUT PRN (11:37)
[2017-08-10] MEDS: HYDRALAZINE HCL 10 MG TABLET PO SCH ×2 (13:52→22:05)
--- NOTE | 2017-08-10 14:58 | PDOC PROGRESS REPORT ---
Subjective Progress Note for:: 08/10/17 Subjective:: Patient states was able to rest last night after some time. Pain also is better. He would like to walk because his butt hurts Review of systems All organ systems evaluated and negative except as in subjective All laboratories and significant diagnostics have been reviewed Reason For Visit: HEART FAILURE Physical Exam Vital Signs: Temp Pulse Resp BP Pulse Ox 97.3 F 90 23 H 129/77 H 93 08/10/17 06:12 08/10/17 06:12 08/10/17 06:12 08/10/17 06:12 08/10/17 06:12 Intake & Output 08/09/17 08/10/17 08/11/17 06:59 06:59 06:59 Intake Total 673 2960 Output Total 2850 2500 Balance -2177 460 General appearance: PRESENT: cooperative, morbidly obese Head exam: PRESENT: atraumatic, normocephalic Eye exam: PRESENT: conjunctiva pink, EOMI, PERRLA Ear exam: PRESENT: normal external ear exam Mouth exam: PRESENT: moist Neck exam: PRESENT: full ROM. ABSENT: JVD, lymphadenopathy, tenderness Respiratory exam: PRESENT: clear to auscultation rahul, decreased breath sounds Cardiovascular exam: PRESENT: RRR. ABSENT: diastolic murmur, systolic murmur Vascular exam: PRESENT: normal capillary refill GI/Abdominal exam: PRESENT: normal bowel sounds, soft. ABSENT: tenderness Extremities exam: PRESENT: full ROM, +2 edema Musculoskeletal exam: PRESENT: ambulatory Neurological exam: PRESENT: alert, awake, oriented to person, oriented to place , oriented to time, oriented to situation Psychiatric exam: PRESENT: appropriate affect, normal mood Skin exam: PRESENT: intact, normal color Results Laboratory Results: 08/08/17 07:39 08/09/17 05:12 07/31/17 07/31/17 07/31/17 05:24 10:51 17:25 Troponin I 0.064 0.055 0.065 Impressions: Chest X-Ray 07/30/17 18:24 IMPRESSION: Cardiomegaly without CHF. Cannot exclude a small left pleural effusion or limited left lower lobe infiltrate. Assessment & Plan - Diagnosis (1) Diabetic neuropathy Qualifiers: Diabetes mellitus type: type 2 Diabetes mellitus complication detail: diabetic polyneuropathy Qualified Code(s): E11.42 - Type 2 diabetes mellitus with diabetic polyneuropathy Is this a current diagnosis for this admission?: Yes Plan: Continue current regimen since getting some pain relief (2) Essential hypertension Is this a current diagnosis for this admission?: Yes Plan: Patient is cardiorenal. Stable since adding midodrine. Increase hydralazine and continue imdur (3) VIOLETA (obstructive sleep apnea) Is this a current diagnosis for this admission?: Yes Plan: May be contributing to overall presentation. CPAP at least 2 hours or as tolerated. Patient made aware this device is lifesaving in his case (4) Type 2 diabetes mellitus Qualifiers: Diabetes mellitus [facility] insulin use: without [facility] use Diabetes mellitus complication status: with unspecified complications Qualified Code(s) : E11.8 - Type 2 diabetes mellitus with unspecified complications Is this a current diagnosis for this admission?: Yes Plan: Continue present management. Stable (5) Dysuria Is this a current diagnosis for this admission?: Yes Plan: Urinalysis noted. Likely relate to swelling of his penis. Resolved (6) Acute on chronic systolic and diastolic heart failure, NYHA class 4 Is this a current diagnosis for this admission?: Yes Plan: Will decrease Coreg. To try a combination of low-dose hydralazine and Imdur. (7) DEANNA (acute kidney injury) Is this a current diagnosis for this admission?: Yes Plan: Due to cardiorenal syndrome. Continue monitoring closely (8) Urinary retention Is this a current diagnosis for this admission?: Yes Plan: Did not tolerate Chowdhury cath - Time Time Spent with patient: 15-24 minutes Medications reviewed and adjusted accordingly: Yes Anticipated discharge: Home with Homehealth Within: within 48 hours - Inpatient Certification Based on my medical assessment, after consideration of the patient's comorbidities, presenting symptoms, or acuity I expect that the services needed warrant INPATIENT care.: Yes I certify that my determination is in accordance with my understanding of Medicare's requirements for reasonable and necessary INPATIENT services [42 CFR 412.3e].: Yes Medical Necessity: Need Close Monitoring Due to Risk of Patient Decompensation
[2017-08-10] MEDS: TAMSULOSIN HCL 0.4 MG CAP.SR.24H PO SCH (17:23)
[2017-08-10] MEDS: ACETAMINOPHEN 325 MG TABLET PO PRN (18:24)
[2017-08-10] MEDS: TRAZODONE HCL 50 MG TABLET PO SCH (22:05)
[2017-08-11] MEDS: GABAPENTIN 100 MG CAPSULE PO SCH ×3 (07:37→21:35)
[2017-08-11] MEDS: LANSOPRAZOLE 15 MG TAB.RAP.DR PO SCH (07:37)
[2017-08-11] MEDS: HYDRALAZINE HCL 10 MG TABLET PO SCH ×3 (07:37→21:36)
[2017-08-11 08:38] LABS: HEMOGLOBIN 13.3 g/dL (13.5-17.0); MEAN CORPUSCULAR HEMOGLOBIN 27.5 pg (27.0-33.4); MEAN CORPUSCULAR HGB CONC 32.4 g/dL (32.0-36.0); MEAN CORPUSCULAR VOLUME 85 fl (80-97); PLATELET COUNT 173 10^3/uL (150-450); RED BLOOD COUNT 4.84 10^6/uL (4.35-5.55); RED CELL DISTRIBUTION WIDTH 17.2 % (11.5-14.0); WHITE BLOOD COUNT 5.2 10^3/uL (4.0-10.5)
[2017-08-11 09:09] LABS: ALANINE AMINOTRANSFERASE 27 U/L (21-72); ALBUMIN 3.5 g/dL (3.5-5.0); ALKALINE PHOSPHATASE 57 U/L (38-126); ANION GAP 11 (5-19); ASPARTATE AMINO TRANSFERASE 20 U/L (17-59); BILIRUBIN,DIRECT 0.4 mg/dL (0.0-0.4); BILIRUBIN,TOTAL 0.5 mg/dL (0.2-1.3); BLOOD UREA NITROGEN 26 mg/dL (7-20); CARBON DIOXIDE 35 mmol/L (22-30); CHLORIDE 98 mmol/L (98-107); GLUCOSE 111 mg/dL (75-110); SODIUM 143.7 mmol/L (137-145); TOTAL PROTEIN 6.2 g/dL (6.3-8.2)
[2017-08-11] MEDS: ENOXAPARIN SODIUM INJ 40 MG/0.4 ML DISP.SYRIN SUBCUT SCH (10:37)
[2017-08-11] MEDS: FERROUS SULFATE 325 MG TABLET PO SCH ×3 (10:38→17:53)
[2017-08-11] MEDS: CARVEDILOL 12.5 MG TABLET PO SCH ×2 (10:38→21:36)
[2017-08-11] MEDS: ISOSORBIDE MONONITRATE 30 MG TAB.ER.24H PO SCH (10:39)
[2017-08-11] MEDS: OMEGA-3 ACID ETHYL ESTERS 1 GM CAPSULE PO SCH ×2 (10:39→18:00)
[2017-08-11] MEDS: DOCUSATE SODIUM 100 MG CAPSULE PO SCH (10:39)
[2017-08-11] MEDS: LOSARTAN POTASSIUM 50 MG TABLET PO SCH (10:40)
[2017-08-11] MEDS: ASPIRIN 81 MG TABLET, CHEWABLE PO SCH (10:41)
[2017-08-11] MEDS: ASCORBIC ACID 500 MG TABLET PO SCH (10:42)
[2017-08-11] MEDS: DULOXETINE HCL 20 MG CAPSULE.DR PO SCH (10:42)
[2017-08-11] MEDS: CLOPIDOGREL BISULFATE 75 MG TABLET PO SCH (10:43)
[2017-08-11] MEDS: FENTANYL 25 MCG/HR PATCH.TD72 TD SCH (10:43)
[2017-08-11] MEDS: TIOTROPIUM BROMIDE DPI 5 CAP/KIT (18 MCG/CAP) IH SCH (10:44)
[2017-08-11] MEDS: FLUTICASONE/SALMETEROL DISKUS 250-50 MCG/DOSE IH SCH ×2 (10:44→21:36)
[2017-08-11] MEDS: CYCLOSPORINE 0.05% OPH EMULSIO 0.4 ML DROPERETTE OU SCH ×2 (10:46→21:35)
[2017-08-11] MEDS ORDERED: BUMETANIDE INJ/PF 1 MG/4 ML SDV IV ONE (11:00)
[2017-08-11] MEDS ORDERED: MIDODRINE HCL 5 MG TABLET PO ONE (11:00)
[2017-08-11] MEDS: INSULIN LISPRO 100 UNIT/ML 3 ML VIAL SUBCUT PRN ×2 (12:24→17:58)
[2017-08-11] MEDS: ACETAMINOPHEN 325 MG TABLET PO PRN (14:34)
[2017-08-11] MEDS: MIDODRINE HCL 5 MG TABLET PO SCH ×2 (14:48→18:00)
--- NOTE | 2017-08-11 17:15 | PDOC PROGRESS REPORT ---
Subjective Progress Note for:: 08/11/17 Subjective:: Patient complains of pain and points to his lower abdomen. He also complains of pain in his penis. Nurse reported that patient complained of pain in his right leg. Review of systems All organ systems evaluated and negative except as in subjective All laboratories and significant diagnostics have been reviewed Reason For Visit: HEART FAILURE Physical Exam Vital Signs: Temp Pulse Resp BP Pulse Ox 98.3 F 93 19 111/74 95 08/10/17 23:10 08/11/17 02:00 08/10/17 23:10 08/10/17 23:10 08/11/17 00:38 Intake & Output 08/10/17 08/11/17 08/12/17 06:59 06:59 06:59 Intake Total 2960 1845 Output Total 2500 3000 Balance 460 -1155 General appearance: PRESENT: cooperative, morbidly obese Head exam: PRESENT: atraumatic, normocephalic Eye exam: PRESENT: conjunctiva pink, EOMI, PERRLA Ear exam: PRESENT: normal external ear exam Mouth exam: PRESENT: moist Neck exam: PRESENT: full ROM. ABSENT: JVD, lymphadenopathy, tenderness Respiratory exam: PRESENT: clear to auscultation rahul, decreased breath sounds Cardiovascular exam: PRESENT: RRR. ABSENT: diastolic murmur, systolic murmur Vascular exam: PRESENT: normal capillary refill GI/Abdominal exam: PRESENT: normal bowel sounds, tenderness - There is edema localized to the pelvic area. No abnormalities noted in penis and actually the foreskin appear less swollen when compared to previous assessment Extremities exam: PRESENT: full ROM, other Musculoskeletal exam: PRESENT: ambulatory - 3+ pitting edema Neurological exam: PRESENT: alert, awake, oriented to person, oriented to place , oriented to time, oriented to situation, CN II-XII grossly intact Psychiatric exam: PRESENT: appropriate affect, normal mood Skin exam: PRESENT: normal color Results Laboratory Results: 08/08/17 07:39 08/09/17 05:12 08/10/17 11:22 Magnesium 2.0 07/31/17 07/31/17 07/31/17 05:24 10:51 17:25 Troponin I 0.064 0.055 0.065 Impressions: Chest X-Ray 07/30/17 18:24 IMPRESSION: Cardiomegaly without CHF. Cannot exclude a small left pleural effusion or limited left lower lobe infiltrate. Assessment & Plan - Diagnosis (1) Diabetic neuropathy Qualifiers: Diabetes mellitus type: type 2 Diabetes mellitus complication detail: diabetic polyneuropathy Qualified Code(s): E11.42 - Type 2 diabetes mellitus with diabetic polyneuropathy Is this a current diagnosis for this admission?: Yes Plan: Continue current regimen since getting some pain relief (2) Essential hypertension Is this a current diagnosis for this admission?: Yes Plan: Patient is cardiorenal. Stable since adding midodrine. Increase hydralazine and imdur (3) VIOLETA (obstructive sleep apnea) Is this a current diagnosis for this admission?: Yes Plan: May be contributing to overall presentation. CPAP at least 2 hours or as tolerated. 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 Stable (5) Dysuria Is this a current diagnosis for this admission?: Yes Plan: Urinalysis noted. Likely relate to swelling of his penis. Resolved (6) Acute on chronic systolic and diastolic heart failure, NYHA class 4 Is this a current diagnosis for this admission?: Yes Plan: Will increase hydralazine and Imdur. Continue current dose of Coreg. Will change to Bumex IV and follow-up response. Continue midodrine (7) DEANNA (acute kidney injury) Is this a current diagnosis for this admission?: Yes Plan: Due to cardiorenal syndrome. Resolved. Continue monitoring closely (8) Urinary retention Is this a current diagnosis for this admission?: Yes Plan: Did not tolerate Chowdhury cath. Resolved (9) Pain of right lower extremity Is this a current diagnosis for this admission?: Yes Plan: Order venous Doppler study of right lower extremity (10) Abdominal pain Qualifiers: Abdominal location: lower abdomen, unspecified Qualified Code(s): R10.30 - Lower abdominal pain, unspecified Is this a current diagnosis for this admission?: Yes Plan: Order scrotal sonogram - Time Time Spent with patient: 15-24 minutes Medications reviewed and adjusted accordingly: Yes Anticipated discharge: Home with Homehealth Within: within 72 hours - Inpatient Certification Based on my medical assessment, after consideration of the patient's comorbidities, presenting symptoms, or acuity I expect that the services needed warrant INPATIENT care.: Yes I certify that my determination is in accordance with my understanding of Medicare's requirements for reasonable and necessary INPATIENT services [42 CFR 412.3e].: Yes Medical Necessity: Need Close Monitoring Due to Risk of Patient Decompensation - IV Bumex
--- NOTE | 2017-08-11 17:16 | RADIOLOGY REPORT (SQ) ---
EXAM DESCRIPTION: VENOUS UNILATERAL LOWER COMPLETED DATE/TIME: 08/11/2017 5:08 pm REASON FOR STUDY: Pain in RLE COMPARISON: 12/18/2016 TECHNIQUE: Dynamic and static caldwell scale and color images acquired of the right leg venous system. S elected spectral images acquired with additional compression and augmentation maneuvers. The contrala teral common femoral vein and saphenofemoral junction were also imaged. Images stored on PACS. LIMITATIONS: None. FINDINGS: RIGHT COMMON FEMORAL: Normal phasicity, compression and augmentation. No visualized echogenic material on g ray scale. No defects on color images. FEMORAL: Normal compression and augmentation. No visualized echogenic material on caldwell scale. No defe cts on color images. POPLITEAL: Normal compression, augmentation. No visualized echogenic material on caldwell scale. No defec ts on color images. CALF VESSELS: Normal compression, augmentation. No visualized echogenic material on caldwell scale. No de fects on color images. GSV and SSV: Normal compression, augmentation. No visualized echogenic material on caldwell scale. No def ects on color images. ANY DEEP VENOUS INSUFFICIENCY: No ANY EVIDENCE OF POPLITEAL CYST: No. OTHER: No other significant finding. LEFT COMMON FEMORAL VEIN AND SAPHENOFEMORAL JUNCTION: Normal phasicity, compression and augmentation. No visualized echogenic material on caldwell scale. No de fects on color images. IMPRESSION: NO EVIDENCE OF DVT OR SVT IN THE RIGHT LEG. TECHNICAL DOCUMENTATION: JOB ID: [id number] [employer]- All Rights Reserved Reading location - IP/workstation name: [email or web address]
[2017-08-11] MEDS: BUMETANIDE INJ/PF 1 MG/4 ML SDV IV SCH (17:58)
[2017-08-11] MEDS: TAMSULOSIN HCL 0.4 MG CAP.SR.24H PO SCH (17:58)
[2017-08-11 20:22] LABS: APPEARANCE,URINE CLEAR; BILIRUBIN,URINE NEGATIVE (NEGATIVE); COLOR,URINE STRAW; GLUCOSE, URINE NEGATIVE (NEGATIVE); KETONES,URINE NEGATIVE (NEGATIVE); LEUKOCYTE ESTERASE,URINE NEGATIVE (NEGATIVE); NITRITE,URINE NEGATIVE (NEGATIVE); PROTEIN,URINE NEGATIVE (NEGATIVE); URINE SPECIFIC GRAVITY 1.006; UROBILINOGEN,URINE NEGATIVE mg/dL (<2.0)
[2017-08-11] MEDS: TRAZODONE HCL 50 MG TABLET PO SCH (21:36)
[2017-08-12] MEDS: BUMETANIDE INJ/PF 1 MG/4 ML SDV IV SCH ×2 (09:18→17:43)
[2017-08-12] MEDS: GABAPENTIN 100 MG CAPSULE PO SCH ×3 (09:19→21:30)
[2017-08-12] MEDS: FERROUS SULFATE 325 MG TABLET PO SCH ×3 (09:19→17:42)
[2017-08-12] MEDS: LANSOPRAZOLE 15 MG TAB.RAP.DR PO SCH (09:20)
[2017-08-12] MEDS: HYDRALAZINE HCL 10 MG TABLET PO SCH ×3 (09:20→21:29)
[2017-08-12] MEDS: DOCUSATE SODIUM 100 MG CAPSULE PO SCH (09:20)
[2017-08-12] MEDS: ASPIRIN 81 MG TABLET, CHEWABLE PO SCH (09:21)
[2017-08-12] MEDS: ISOSORBIDE MONONITRATE 30 MG TAB.ER.24H PO SCH (09:21)
[2017-08-12] MEDS: LOSARTAN POTASSIUM 50 MG TABLET PO SCH (09:21)
[2017-08-12] MEDS: OMEGA-3 ACID ETHYL ESTERS 1 GM CAPSULE PO SCH ×2 (09:21→17:41)
[2017-08-12] MEDS: ASCORBIC ACID 500 MG TABLET PO SCH (09:22)
[2017-08-12] MEDS: CLOPIDOGREL BISULFATE 75 MG TABLET PO SCH (09:22)
[2017-08-12] MEDS: CARVEDILOL 12.5 MG TABLET PO SCH ×2 (09:23→21:29)
[2017-08-12] MEDS: TIOTROPIUM BROMIDE DPI 5 CAP/KIT (18 MCG/CAP) IH SCH (09:23)
[2017-08-12] MEDS: CYCLOSPORINE 0.05% OPH EMULSIO 0.4 ML DROPERETTE OU SCH ×2 (09:23→17:40)
[2017-08-12] MEDS: FLUTICASONE/SALMETEROL DISKUS 250-50 MCG/DOSE IH SCH ×2 (09:24→21:30)
[2017-08-12] MEDS: DULOXETINE HCL 20 MG CAPSULE.DR PO SCH (09:24)
[2017-08-12] MEDS: MIDODRINE HCL 5 MG TABLET PO SCH ×3 (09:24→17:41)
[2017-08-12] MEDS: ENOXAPARIN SODIUM INJ 40 MG/0.4 ML DISP.SYRIN SUBCUT SCH (09:25)
[2017-08-12] MEDS: ACETAMINOPHEN 325 MG TABLET PO PRN (10:02)
[2017-08-12] MEDS: INSULIN LISPRO 100 UNIT/ML 3 ML VIAL SUBCUT PRN ×2 (13:25→17:42)
--- NOTE | 2017-08-12 16:19 | PDOC PROGRESS REPORT ---
Subjective Progress Note for:: 08/12/17 Subjective:: Patient refers that the swelling is getting better. He has been able to walk to the bathroom without getting short of breath. The pain in the back of his right leg is also better Review of systems All organ systems evaluated and negative except as in subjective All laboratories and significant diagnostics have been reviewed Reason For Visit: HEART FAILURE Physical Exam Vital Signs: Temp Pulse Resp BP Pulse Ox 98.3 F 98 20 108/74 95 08/12/17 07:59 08/12/17 07:59 08/12/17 07:59 08/12/17 07:59 08/12/17 07:59 Intake & Output 08/11/17 08/12/17 08/13/17 06:59 06:59 06:59 Intake Total 1845 1554 Output Total 3000 1560 Balance -1155 -6 General appearance: PRESENT: cooperative, obese Head exam: PRESENT: atraumatic, normocephalic Eye exam: PRESENT: conjunctiva pink, EOMI, PERRLA Ear exam: PRESENT: normal external ear exam Mouth exam: PRESENT: moist Neck exam: PRESENT: full ROM. ABSENT: JVD, lymphadenopathy, tenderness Respiratory exam: PRESENT: clear to auscultation rahul. ABSENT: tachypnea, unlabored, wheezes Cardiovascular exam: PRESENT: RRR. ABSENT: diastolic murmur, systolic murmur Vascular exam: PRESENT: normal capillary refill GI/Abdominal exam: PRESENT: normal bowel sounds, soft. ABSENT: tenderness Extremities exam: PRESENT: full ROM, +2 edema Musculoskeletal exam: PRESENT: ambulatory Neurological exam: PRESENT: alert, awake, oriented to person, oriented to place , oriented to time, oriented to situation, CN II-XII grossly intact Psychiatric exam: PRESENT: appropriate affect, normal mood Skin exam: PRESENT: normal color Results Laboratory Results: 08/11/17 08:24 08/11/17 08:24 08/11/17 08/11/17 08:24 19:40 Sodium 143.7 Potassium 4.0 Chloride 98 Carbon Dioxide 35 H Anion Gap 11 BUN 26 H Creatinine 1.06 Est GFR ( Amer) > 60 Est GFR (Non-Af Amer) > 60 Glucose 111 H Calcium 9.0 Total Bilirubin 0.5 AST 20 ALT 27 Alkaline Phosphatase 57 Total Protein 6.2 L Albumin 3.5 Urine Color STRAW Urine Appearance CLEAR Urine pH 5.0 Ur Specific [place] 1.006 Urine Protein NEGATIVE Urine Glucose (UA) NEGATIVE Urine Ketones NEGATIVE Urine Blood NEGATIVE Urine Nitrite NEGATIVE Ur Leukocyte Esterase NEGATIVE Urine WBC (Auto) 0 Urine RBC (Auto) 0 07/31/17 07/31/17 07/31/17 05:24 10:51 17:25 Troponin I 0.064 0.055 0.065 Impressions: Chest X-Ray 07/30/17 18:24 IMPRESSION: Cardiomegaly without CHF. Cannot exclude a small left pleural effusion or limited left lower lobe infiltrate. Venous Doppler Study 08/11/17 00:00 IMPRESSION: NO EVIDENCE OF DVT OR SVT IN THE RIGHT LEG. Assessment & Plan - Diagnosis (1) Diabetic neuropathy Qualifiers: Diabetes mellitus type: type 2 Diabetes mellitus complication detail: diabetic polyneuropathy Qualified Code(s): E11.42 - Type 2 diabetes mellitus with diabetic polyneuropathy Is this a current diagnosis for this admission?: Yes Plan: Continue current regimen since getting pain relief (2) Essential hypertension Is this a current diagnosis for this admission?: Yes Plan: Patient is cardiorenal. Stable since adding midodrine. Continue hydralazine, Imdur, losartan and coreg current dose (3) VIOLETA (obstructive sleep apnea) Is this a current diagnosis for this admission?: Yes Plan: May be contributing to overall presentation. CPAP at least 2 hours or as tolerated. Patient made aware this device is lifesaving in his case (4) Type 2 diabetes mellitus Qualifiers: Diabetes mellitus prison insulin use: without prison use Diabetes mellitus complication status: with unspecified complications Qualified Code(s) : E11.8 - Type 2 diabetes mellitus with unspecified complications Is this a current diagnosis for this admission?: Yes Plan: Continue present management. Stable (5) Dysuria Is this a current diagnosis for this admission?: Yes Plan: Urinalysis noted. Likely relate to swelling of his penis. Resolved (6) Acute on chronic systolic and diastolic heart failure, NYHA class 4 Is this a current diagnosis for this admission?: Yes Plan: Continue current management since good diuresis (7) DEANNA (acute kidney injury) Is this a current diagnosis for this admission?: Yes Plan: Due to cardiorenal syndrome. Resolved. Continue monitoring closely (8) Urinary retention Is this a current diagnosis for this admission?: Yes Plan: Did not tolerate Chowdhury cath. Resolved (9) Pain of right lower extremity Is this a current diagnosis for this admission?: Yes Plan: Resolved. Negative venous Doppler study of her lower extremity (10) Abdominal pain Qualifiers: Abdominal location: lower abdomen, unspecified Qualified Code(s): R10.30 - Lower abdominal pain, unspecified Is this a current diagnosis for this admission?: Yes Plan: Resolved - Time Time Spent with patient: 15-24 minutes Medications reviewed and adjusted accordingly: Yes Anticipated discharge: Home with Homehealth Within: within 72 hours - Inpatient Certification Based on my medical assessment, after consideration of the patient's comorbidities, presenting symptoms, or acuity I expect that the services needed warrant INPATIENT care.: Yes I certify that my determination is in accordance with my understanding of Medicare's requirements for reasonable and necessary INPATIENT services [42 CFR 412.3e].: Yes Medical Necessity: Need Close Monitoring Due to Risk of Patient Decompensation, Need For Continuous Telemetry Monitoring
[2017-08-12] MEDS: TAMSULOSIN HCL 0.4 MG CAP.SR.24H PO SCH (17:42)
[2017-08-12] MEDS: TRAZODONE HCL 50 MG TABLET PO SCH (21:30)
--- NOTE | 2017-08-12 22:19 | RADIOLOGY REPORT (SQ) ---
EXAM DESCRIPTION: U/S SCROTUM W/DOPPLER COMPLETED DATE/TIME: 08/12/2017 9:21 pm REASON FOR STUDY: penile pain COMPARISON: None. TECHNIQUE: Static and realtime caldwell scale imaging of the scrotum and testes. Selected color Doppler and spectral images recorded to document blood flow. LIMITATIONS: None. FINDINGS: RIGHT: TESTICLE: Normal size, 3.6 x 3.4 x 2.4 cm. Normal echotexture. Normal blood flow. No mass. There i s a 4 mm peripheral cyst. EPIDIDYMIS: Normal, 0.9 x 0.9 x 0.9 cm. HYDROCELE OR VARICOCELE: No. HERNIA OR EXTRA-TESTICULAR MASS: No. OTHER: No other significant finding. LEFT: TESTICLE: Normal size, 2.3 x 2.6 x 3.2 cm. Normal echotexture. Normal blood flow. No mass. EPIDIDYMIS: Normal. 0.8 x 0.7 x 0.6 cm. HYDROCELE OR VARICOCELE: There is a small hydrocele measuring 1.9 x 0.6 x 1.4 cm. HERNIA OR EXTRA-TESTICULAR MASS: No. OTHER: No other significant finding. IMPRESSION: Small left hydrocele. Small peripheral right testicular cyst. No acute abnormality. TECHNICAL DOCUMENTATION: JOB ID: [id number] [employer]- All Rights Reserved Reading location - IP/workstation name: [email or web address]
[2017-08-13 07:11] LABS: HEMATOCRIT 41.7 % (37.9-51.0); HEMOGLOBIN 13.3 g/dL (13.5-17.0); MEAN CORPUSCULAR HEMOGLOBIN 27.1 pg (27.0-33.4); MEAN CORPUSCULAR HGB CONC 31.9 g/dL (32.0-36.0); MEAN CORPUSCULAR VOLUME 85 fl (80-97); PLATELET COUNT 168 10^3/uL (150-450); RED BLOOD COUNT 4.89 10^6/uL (4.35-5.55); WHITE BLOOD COUNT 4.6 10^3/uL (4.0-10.5)
[2017-08-13 08:49] LABS: ANION GAP 10 (5-19); BLOOD UREA NITROGEN 25 mg/dL (7-20); CALCIUM 8.8 mg/dL (8.4-10.2); CARBON DIOXIDE 36 mmol/L (22-30); CHLORIDE 97 mmol/L (98-107); GLUCOSE 116 mg/dL (75-110); SODIUM 142.7 mmol/L (137-145)
[2017-08-13] MEDS: LANSOPRAZOLE 15 MG TAB.RAP.DR PO SCH (09:43)
[2017-08-13] MEDS: DOCUSATE SODIUM 100 MG CAPSULE PO SCH (09:43)
[2017-08-13] MEDS: FERROUS SULFATE 325 MG TABLET PO SCH ×3 (09:43→18:58)
[2017-08-13] MEDS: HYDRALAZINE HCL 10 MG TABLET PO SCH (09:44)
[2017-08-13] MEDS: GABAPENTIN 100 MG CAPSULE PO SCH ×3 (09:44→22:00)
[2017-08-13] MEDS: CLOPIDOGREL BISULFATE 75 MG TABLET PO SCH (09:44)
[2017-08-13] MEDS: ISOSORBIDE MONONITRATE 30 MG TAB.ER.24H PO SCH (09:46)
[2017-08-13] MEDS: BUMETANIDE INJ/PF 1 MG/4 ML SDV IV SCH ×2 (09:46→19:00)
[2017-08-13] MEDS: OMEGA-3 ACID ETHYL ESTERS 1 GM CAPSULE PO SCH ×2 (09:47→18:58)
[2017-08-13] MEDS: ASPIRIN 81 MG TABLET, CHEWABLE PO SCH (09:47)
[2017-08-13] MEDS: CARVEDILOL 12.5 MG TABLET PO SCH ×2 (09:47→22:00)
[2017-08-13] MEDS: LOSARTAN POTASSIUM 50 MG TABLET PO SCH (09:47)
[2017-08-13] MEDS: ASCORBIC ACID 500 MG TABLET PO SCH (09:47)
[2017-08-13] MEDS: FLUTICASONE/SALMETEROL DISKUS 250-50 MCG/DOSE IH SCH ×2 (09:49→22:00)
[2017-08-13] MEDS: CYCLOSPORINE 0.05% OPH EMULSIO 0.4 ML DROPERETTE OU SCH ×2 (09:49→19:01)
[2017-08-13] MEDS: TIOTROPIUM BROMIDE DPI 5 CAP/KIT (18 MCG/CAP) IH SCH (09:50)
[2017-08-13] MEDS: MIDODRINE HCL 5 MG TABLET PO SCH ×3 (09:51→19:59)
[2017-08-13] MEDS: ENOXAPARIN SODIUM INJ 40 MG/0.4 ML DISP.SYRIN SUBCUT SCH (09:51)
[2017-08-13] MEDS: DULOXETINE HCL 30 MG CAPSULE.DR PO SCH (09:56)
[2017-08-13] MEDS: INSULIN LISPRO 100 UNIT/ML 3 ML VIAL SUBCUT PRN (12:41)
[2017-08-13] MEDS ORDERED: HYDRALAZINE HCL 10 MG TABLET PO SCH (12:44)
--- NOTE | 2017-08-13 13:04 | PDOC PROGRESS REPORT ---
Subjective Progress Note for:: 08/13/17 Subjective:: Patient refers that swelling and pain is better. He has been able to walk in the room. Inform about results of sonogram. Review of systems All organ systems evaluated and negative except as in subjective All laboratories and significant diagnostics have been reviewed Reason For Visit: HEART FAILURE Physical Exam Vital Signs: Temp Pulse Resp BP Pulse Ox 97.5 F 87 20 115/79 99 08/12/17 20:00 08/13/17 02:00 08/12/17 20:00 08/12/17 20:00 08/12/17 20:00 Intake & Output 08/11/17 08/12/17 08/13/17 06:59 06:59 06:59 Intake Total 1845 1554 800 Output Total 3000 1560 2040 Balance -1155 -6 -1240 General appearance: PRESENT: cooperative, obese Head exam: PRESENT: atraumatic, normocephalic Eye exam: PRESENT: conjunctiva pink, EOMI, PERRLA Ear exam: PRESENT: normal external ear exam Mouth exam: PRESENT: moist Neck exam: PRESENT: full ROM. ABSENT: JVD, lymphadenopathy, tenderness Respiratory exam: PRESENT: clear to auscultation rahul Cardiovascular exam: PRESENT: RRR, systolic murmur. ABSENT: diastolic murmur Vascular exam: PRESENT: normal capillary refill GI/Abdominal exam: PRESENT: distended, normal bowel sounds. ABSENT: guarding, hernia, tenderness Extremities exam: PRESENT: +2 edema - Edema mostly localized to his thighs and pelvic area Musculoskeletal exam: PRESENT: ambulatory Neurological exam: PRESENT: alert, awake, oriented to person, oriented to place , oriented to time, CN II-XII grossly intact Psychiatric exam: PRESENT: appropriate affect, normal mood Skin exam: PRESENT: intact, normal color Results Laboratory Results: 08/11/17 08:24 08/11/17 08:24 07/31/17 07/31/17 07/31/17 05:24 10:51 17:25 Troponin I 0.064 0.055 0.065 Impressions: Chest X-Ray 07/30/17 18:24 IMPRESSION: Cardiomegaly without CHF. Cannot exclude a small left pleural effusion or limited left lower lobe infiltrate. Venous Doppler Study 08/11/17 00:00 IMPRESSION: NO EVIDENCE OF DVT OR SVT IN THE RIGHT LEG. Scrotum Ultrasound 08/12/17 00:00 IMPRESSION: Small left hydrocele. Small peripheral right testicular cyst. No acute abnormality. Assessment & Plan - Diagnosis (1) Diabetic neuropathy Qualifiers: Diabetes mellitus type: type 2 Diabetes mellitus complication detail: diabetic polyneuropathy Qualified Code(s): E11.42 - Type 2 diabetes mellitus with diabetic polyneuropathy Is this a current diagnosis for this admission?: Yes Plan: Continue current regimen since getting pain relief (2) Essential hypertension Is this a current diagnosis for this admission?: Yes Plan: Patient is cardiorenal. Stable since adding midodrine. Continue hydralazine, Imdur, losartan and coreg current dose (3) VIOLETA (obstructive sleep apnea) Is this a current diagnosis for this admission?: Yes Plan: May be contributing to overall presentation. CPAP at least 2 hours or as tolerated. Patient made aware this device is lifesaving in his case (4) Type 2 diabetes mellitus Qualifiers: Diabetes mellitus long-term insulin use: without technician terminal and repeater use Diabetes mellitus complication status: with unspecified complications Qualified Code(s) : E11.8 - Type 2 diabetes mellitus with unspecified complications Is this a current diagnosis for this admission?: Yes Plan: Continue present management. Stable (5) Dysuria Is this a current diagnosis for this admission?: Yes Plan: Urinalysis noted. Likely relate to swelling of his penis. Resolved (6) Acute on chronic systolic and diastolic heart failure, NYHA class 4 Is this a current diagnosis for this admission?: Yes Plan: Continue current management since good diuresis. Anticipate to transition to oral soon (7) DEANNA (acute kidney injury) Is this a current diagnosis for this admission?: Yes Plan: Due to cardiorenal syndrome. Resolved. Continue monitoring closely (8) Urinary retention Is this a current diagnosis for this admission?: Yes Plan: Resolved (9) Pain of right lower extremity Is this a current diagnosis for this admission?: Yes Plan: Resolved. Negative venous Doppler study of her lower extremity (10) Abdominal pain Qualifiers: Abdominal location: lower abdomen, unspecified Qualified Code(s): R10.30 - Lower abdominal pain, unspecified Is this a current diagnosis for this admission?: Yes Plan: Resolved (11) Hydrocele of spermatic cord, testis, or tunica vaginalis Is this a current diagnosis for this admission?: Yes Plan: Patient inform about results of sonogram. No further intervention - Time Time Spent with patient: 15-24 minutes Medications reviewed and adjusted accordingly: Yes Anticipated discharge: Home with Homehealth Within: within 48 hours - Inpatient Certification Based on my medical assessment, after consideration of the patient's comorbidities, presenting symptoms, or acuity I expect that the services needed warrant INPATIENT care.: Yes I certify that my determination is in accordance with my understanding of Medicare's requirements for reasonable and necessary INPATIENT services [42 CFR 412.3e].: Yes Medical Necessity: Need Close Monitoring Due to Risk of Patient Decompensation
[2017-08-13] MEDS ORDERED: NITROGLYCERIN 0.4 MG/TAB 25 TAB/BOTTLE SL PRN (14:54)
[2017-08-13] MEDS ORDERED: TRAMADOL HCL 50 MG TABLET PO PRN (14:55)
[2017-08-13] MEDS ORDERED: HYDRALAZINE HCL 25 MG TABLET PO ONE (15:00)
[2017-08-13] MEDS: TAMSULOSIN HCL 0.4 MG CAP.SR.24H PO SCH (18:59)
[2017-08-13] MEDS: HYDRALAZINE HCL 25 MG TABLET PO SCH (22:00)
[2017-08-13] MEDS: TRAZODONE HCL 50 MG TABLET PO SCH (22:00)
[2017-08-14] MEDS: BUMETANIDE INJ/PF 1 MG/4 ML SDV IV SCH (06:10)
[2017-08-14] MEDS: HYDRALAZINE HCL 25 MG TABLET PO SCH ×3 (06:11→23:10)
[2017-08-14] MEDS: LANSOPRAZOLE 15 MG TAB.RAP.DR PO SCH (06:11)
[2017-08-14] MEDS: GABAPENTIN 100 MG CAPSULE PO SCH ×3 (06:11→23:10)
[2017-08-14] MEDS: ACETAMINOPHEN 325 MG TABLET PO PRN (06:11)
[2017-08-14] MEDS: CLOPIDOGREL BISULFATE 75 MG TABLET PO SCH (10:18)
[2017-08-14] MEDS: ASCORBIC ACID 500 MG TABLET PO SCH (10:18)
[2017-08-14] MEDS: OMEGA-3 ACID ETHYL ESTERS 1 GM CAPSULE PO SCH ×2 (10:18→18:15)
[2017-08-14] MEDS: DOCUSATE SODIUM 100 MG CAPSULE PO SCH (10:18)
[2017-08-14] MEDS: LOSARTAN POTASSIUM 50 MG TABLET PO SCH (10:19)
[2017-08-14] MEDS: FLUTICASONE/SALMETEROL DISKUS 250-50 MCG/DOSE IH SCH ×2 (10:19→23:10)
[2017-08-14] MEDS: DULOXETINE HCL 30 MG CAPSULE.DR PO SCH (10:19)
[2017-08-14] MEDS: ISOSORBIDE MONONITRATE 30 MG TAB.ER.24H PO SCH (10:19)
[2017-08-14] MEDS: FERROUS SULFATE 325 MG TABLET PO SCH ×3 (10:19→18:07)
[2017-08-14] MEDS: ASPIRIN 81 MG TABLET, CHEWABLE PO SCH (10:19)
[2017-08-14] MEDS: CARVEDILOL 12.5 MG TABLET PO SCH ×2 (10:20→23:10)
[2017-08-14] MEDS: MIDODRINE HCL 5 MG TABLET PO SCH ×3 (10:20→18:07)
[2017-08-14] MEDS: TIOTROPIUM BROMIDE DPI 5 CAP/KIT (18 MCG/CAP) IH SCH (10:20)
[2017-08-14] MEDS: CYCLOSPORINE 0.05% OPH EMULSIO 0.4 ML DROPERETTE OU SCH ×2 (10:20→18:09)
[2017-08-14] MEDS: FENTANYL 25 MCG/HR PATCH.TD72 TD SCH (10:20)
[2017-08-14] MEDS: ENOXAPARIN SODIUM INJ 40 MG/0.4 ML DISP.SYRIN SUBCUT SCH (10:21)
--- NOTE | 2017-08-14 11:34 | PDOC PROGRESS REPORT ---
Subjective Progress Note for:: 08/14/17 Subjective:: Patient refers that the pain across his chest went away. No other complaints Review of systems All organ systems evaluated and negative except as in subjective All laboratories and significant diagnostics have been reviewed Reason For Visit: HEART FAILURE Physical Exam Vital Signs: Temp Pulse Resp BP Pulse Ox 97.7 F 108 H 20 96/68 L 93 08/13/17 19:30 08/14/17 06:19 08/14/17 06:19 08/14/17 06:19 08/14/17 06:19 Intake & Output 08/13/17 08/14/17 08/15/17 06:59 06:59 06:59 Intake Total 800 1561 Output Total 2040 1900 Balance -1240 -339 General appearance: PRESENT: cooperative, obese Head exam: PRESENT: atraumatic, normocephalic Eye exam: PRESENT: conjunctiva pink, EOMI, PERRLA Ear exam: PRESENT: normal external ear exam Mouth exam: PRESENT: moist Neck exam: PRESENT: full ROM. ABSENT: JVD, lymphadenopathy, tenderness Respiratory exam: PRESENT: clear to auscultation rahul Cardiovascular exam: PRESENT: RRR. ABSENT: diastolic murmur, systolic murmur Vascular exam: PRESENT: normal capillary refill GI/Abdominal exam: PRESENT: distended, normal bowel sounds. ABSENT: tenderness Extremities exam: PRESENT: full ROM, +2 edema Musculoskeletal exam: PRESENT: ambulatory Neurological exam: PRESENT: alert, awake, oriented to person, oriented to place , oriented to time Psychiatric exam: PRESENT: appropriate affect, normal mood Skin exam: PRESENT: normal color Results Laboratory Results: 08/13/17 06:31 08/13/17 06:31 08/13/17 06:31 Sodium 142.7 Potassium 4.0 Chloride 97 L Carbon Dioxide 36 H Anion Gap 10 BUN 25 H Creatinine 1.06 Est GFR ( Amer) > 60 Est GFR (Non-Af Amer) > 60 Glucose 116 H Calcium 8.8 07/31/17 07/31/17 07/31/17 05:24 10:51 17:25 Troponin I 0.064 0.055 0.065 08/13/17 08/13/17 08/14/17 15:50 21:00 02:58 Troponin I 0.045 0.052 0.046 Impressions: Chest X-Ray 07/30/17 18:24 IMPRESSION: Cardiomegaly without CHF. Cannot exclude a small left pleural effusion or limited left lower lobe infiltrate. Venous Doppler Study 08/11/17 00:00 IMPRESSION: NO EVIDENCE OF DVT OR SVT IN THE RIGHT LEG. Scrotum Ultrasound 08/12/17 00:00 IMPRESSION: Small left hydrocele. Small peripheral right testicular cyst. No acute abnormality. Assessment & Plan - Diagnosis (1) Diabetic neuropathy Qualifiers: Diabetes mellitus type: type 2 Diabetes mellitus complication detail: diabetic polyneuropathy Qualified Code(s): E11.42 - Type 2 diabetes mellitus with diabetic polyneuropathy Is this a current diagnosis for this admission?: Yes Plan: Continue current regimen since getting pain relief (2) Essential hypertension Is this a current diagnosis for this admission?: Yes Plan: Patient is cardiorenal. Stable since adding midodrine. Continue hydralazine, Imdur, losartan and coreg current dose (3) VIOLETA (obstructive sleep apnea) Is this a current diagnosis for this admission?: Yes Plan: May be contributing to overall presentation. Patient states that [facility] (4) Type 2 diabetes mellitus Qualifiers: Diabetes mellitus fpc insulin use: without terminal make up operator use Diabetes mellitus complication status: with unspecified complications Qualified Code(s) : E11.8 - Type 2 diabetes mellitus with unspecified complications Is this a current diagnosis for this admission?: Yes Plan: Continue present management. Stable (5) Dysuria Is this a current diagnosis for this admission?: Yes Plan: Urinalysis noted. Likely relate to swelling of his penis. Resolved (6) Acute on chronic systolic and diastolic heart failure, NYHA class 4 Is this a current diagnosis for this admission?: Yes Plan: Change to oral diuresis. Continue losartan, hydralazine, Imdur and Coreg (7) DEANNA (acute kidney injury) Is this a current diagnosis for this admission?: Yes Plan: Due to cardiorenal syndrome. Resolved. Continue monitoring closely (8) Urinary retention Is this a current diagnosis for this admission?: Yes Plan: Resolved (9) Pain of right lower extremity Is this a current diagnosis for this admission?: Yes Plan: Resolved. Negative venous Doppler study of her lower extremity (10) Abdominal pain Qualifiers: Abdominal location: lower abdomen, unspecified Qualified Code(s): R10.30 - Lower abdominal pain, unspecified Is this a current diagnosis for this admission?: Yes Plan: Resolved (11) Hydrocele of spermatic cord, testis, or tunica vaginalis Is this a current diagnosis for this admission?: Yes Plan: Patient inform about results of sonogram. No further intervention (12) Chest pain Qualifiers: Chest pain type: precordial pain Qualified Code(s): R07.2 - Precordial pain Is this a current diagnosis for this admission?: Yes Plan: Troponin is patient found to get chest pain off and on. Troponin trended and negative. Continue current regimen. Will make an appointment with Dr. Barnes - Time Time Spent with patient: 15-24 minutes Medications reviewed and adjusted accordingly: Yes Anticipated discharge: Home with Homehealth Within: within 24 hours - Inpatient Certification Based on my medical assessment, after consideration of the patient's comorbidities, presenting symptoms, or acuity I expect that the services needed warrant INPATIENT care.: Yes I certify that my determination is in accordance with my understanding of Medicare's requirements for reasonable and necessary INPATIENT services [42 CFR 412.3e].: Yes Medical Necessity: Need Close Monitoring Due to Risk of Patient Decompensation, Need For Continuous Telemetry Monitoring
[2017-08-14] MEDS: INSULIN LISPRO 100 UNIT/ML 3 ML VIAL SUBCUT PRN (12:08)
[2017-08-14 16:40] LABS: APPEARANCE,URINE CLEAR; BILIRUBIN,URINE NEGATIVE (NEGATIVE); COLOR,URINE YELLOW; GLUCOSE, URINE NEGATIVE (NEGATIVE); KETONES,URINE NEGATIVE (NEGATIVE); LEUKOCYTE ESTERASE,URINE NEGATIVE (NEGATIVE); NITRITE,URINE NEGATIVE (NEGATIVE); PROTEIN,URINE NEGATIVE (NEGATIVE); URINE SPECIFIC GRAVITY 1.013; UROBILINOGEN,URINE NEGATIVE mg/dL (<2.0)
[2017-08-14] MEDS: BUMETANIDE 1 MG TABLET PO SCH (18:07)
[2017-08-14] MEDS: TAMSULOSIN HCL 0.4 MG CAP.SR.24H PO SCH (18:07)
[2017-08-14] MEDS: TRAZODONE HCL 50 MG TABLET PO SCH (23:10)
[2017-08-15] MEDS: ACETAMINOPHEN 325 MG TABLET PO PRN (02:21)
[2017-08-15] MEDS: GABAPENTIN 100 MG CAPSULE PO SCH ×3 (05:13→23:07)
[2017-08-15] MEDS: LANSOPRAZOLE 15 MG TAB.RAP.DR PO SCH (05:13)
[2017-08-15] MEDS: BUMETANIDE 1 MG TABLET PO SCH ×2 (05:13→18:32)
[2017-08-15] MEDS: HYDRALAZINE HCL 25 MG TABLET PO SCH ×3 (05:13→23:07)
[2017-08-15 07:34] LABS: HEMATOCRIT 40.4 % (37.9-51.0); HEMOGLOBIN 13.2 g/dL (13.5-17.0); MEAN CORPUSCULAR HEMOGLOBIN 27.7 pg (27.0-33.4); MEAN CORPUSCULAR HGB CONC 32.8 g/dL (32.0-36.0); MEAN CORPUSCULAR VOLUME 85 fl (80-97); PLATELET COUNT 185 10^3/uL (150-450); RED BLOOD COUNT 4.77 10^6/uL (4.35-5.55); RED CELL DISTRIBUTION WIDTH 16.8 % (11.5-14.0); WHITE BLOOD COUNT 4.6 10^3/uL (4.0-10.5)
[2017-08-15 07:55] LABS: BLOOD UREA NITROGEN 23 mg/dL (7-20); CHLORIDE 96 mmol/L (98-107); GLUCOSE 105 mg/dL (75-110); POTASSIUM 3.7 mmol/L (3.6-5.0); SODIUM 142.9 mmol/L (137-145)
[2017-08-15 08:01] LABS: ANION GAP 10 (5-19)
[2017-08-15 08:05] LABS: CARBON DIOXIDE 37 mmol/L (22-30)
[2017-08-15] MEDS: OMEGA-3 ACID ETHYL ESTERS 1 GM CAPSULE PO SCH ×2 (10:51→18:37)
[2017-08-15] MEDS: CLOPIDOGREL BISULFATE 75 MG TABLET PO SCH (10:51)
[2017-08-15] MEDS: ISOSORBIDE MONONITRATE 30 MG TAB.ER.24H PO SCH (10:51)
[2017-08-15] MEDS: CARVEDILOL 12.5 MG TABLET PO SCH ×2 (10:51→23:07)
[2017-08-15] MEDS: LOSARTAN POTASSIUM 50 MG TABLET PO SCH (10:51)
[2017-08-15] MEDS: FLUTICASONE/SALMETEROL DISKUS 250-50 MCG/DOSE IH SCH ×2 (10:51→23:07)
[2017-08-15] MEDS: FERROUS SULFATE 325 MG TABLET PO SCH ×3 (10:52→18:32)
[2017-08-15] MEDS: DULOXETINE HCL 30 MG CAPSULE.DR PO SCH (10:52)
[2017-08-15] MEDS: MIDODRINE HCL 5 MG TABLET PO SCH ×3 (10:52→18:33)
[2017-08-15] MEDS: ASCORBIC ACID 500 MG TABLET PO SCH (10:52)
[2017-08-15] MEDS: CYCLOSPORINE 0.05% OPH EMULSIO 0.4 ML DROPERETTE OU SCH ×2 (10:53→18:37)
[2017-08-15] MEDS ORDERED: POTASSIUM CHLORIDE 10 MEQ TABLET.SA PO ONE (11:00)
[2017-08-15] MEDS: ASPIRIN 81 MG TABLET, CHEWABLE PO SCH (12:16)
[2017-08-15] MEDS: DOCUSATE SODIUM 100 MG CAPSULE PO SCH (12:16)
[2017-08-15] MEDS: ENOXAPARIN SODIUM INJ 40 MG/0.4 ML DISP.SYRIN SUBCUT SCH (12:16)
[2017-08-15] MEDS: TIOTROPIUM BROMIDE DPI 5 CAP/KIT (18 MCG/CAP) IH SCH (14:32)
--- NOTE | 2017-08-15 16:52 | PDOC PROGRESS REPORT ---
Subjective Progress Note for:: 08/15/17 Subjective:: No other complaints except that wants to get "his potassium". Patient made aware had been up.Nurse reports that patient's medical information specialist or not be available until Friday Review of systems All organ systems evaluated and negative except as in subjective All laboratories and significant diagnostics have been reviewed Reason For Visit: HEART FAILURE Physical Exam Vital Signs: Temp Pulse Resp BP Pulse Ox 98 F 101 H 19 107/68 98 08/15/17 16:21 08/15/17 16:21 08/15/17 16:21 08/15/17 16:21 08/15/17 16:21 Intake & Output 08/14/17 08/15/17 08/16/17 06:59 06:59 06:59 Intake Total 1561 676 Output Total 1900 600 Balance -339 76 General appearance: PRESENT: cooperative, obese Head exam: PRESENT: atraumatic, normocephalic Eye exam: PRESENT: conjunctiva pink, EOMI, PERRLA Ear exam: PRESENT: normal external ear exam Neck exam: PRESENT: full ROM. ABSENT: JVD, lymphadenopathy, tenderness Respiratory exam: PRESENT: clear to auscultation rahul Cardiovascular exam: PRESENT: RRR. ABSENT: diastolic murmur, systolic murmur GI/Abdominal exam: PRESENT: normal bowel sounds, soft. ABSENT: tenderness Extremities exam: PRESENT: full ROM, +2 edema Musculoskeletal exam: PRESENT: ambulatory Neurological exam: PRESENT: alert, awake, oriented to person, oriented to place , oriented to time, oriented to situation, CN II-XII grossly intact Psychiatric exam: PRESENT: appropriate affect, normal mood Skin exam: PRESENT: intact, normal color Results Laboratory Results: 08/15/17 06:52 08/15/17 06:52 08/13/17 08/15/17 08/15/17 16:12 06:52 06:52 WBC 4.6 RBC 4.77 Hgb 13.2 L Hct 40.4 MCV 85 MCH 27.7 MCHC 32.8 RDW 16.8 H Plt Count 185 Sodium 142.9 Potassium 3.7 Chloride 96 L Carbon Dioxide 37 H Anion Gap 10 BUN 23 H Creatinine 1.13 Est GFR ( Amer) > 60 Est GFR (Non-Af Amer) > 60 Glucose 105 Calcium 9.0 Magnesium 1.9 Urine Color YELLOW Urine Appearance CLEAR Urine pH 5.0 Ur Specific [place] 1.013 Urine Protein NEGATIVE Urine Glucose (UA) NEGATIVE Urine Ketones NEGATIVE Urine Blood NEGATIVE Urine Nitrite NEGATIVE Ur Leukocyte Esterase NEGATIVE Urine WBC (Auto) 0 Urine RBC (Auto) 0 07/31/17 07/31/17 07/31/17 05:24 10:51 17:25 Troponin I 0.064 0.055 0.065 08/13/17 08/13/17 08/14/17 15:50 21:00 02:58 Troponin I 0.045 0.052 0.046 Impressions: Chest X-Ray 07/30/17 18:24 IMPRESSION: Cardiomegaly without CHF. Cannot exclude a small left pleural effusion or limited left lower lobe infiltrate. Venous Doppler Study 08/11/17 00:00 IMPRESSION: NO EVIDENCE OF DVT OR SVT IN THE RIGHT LEG. Scrotum Ultrasound 08/12/17 00:00 IMPRESSION: Small left hydrocele. Small peripheral right testicular cyst. No acute abnormality. Assessment & Plan - Diagnosis (1) Diabetic neuropathy Qualifiers: Diabetes mellitus type: type 2 Diabetes mellitus complication detail: diabetic polyneuropathy Qualified Code(s): E11.42 - Type 2 diabetes mellitus with diabetic polyneuropathy Is this a current diagnosis for this admission?: Yes Plan: Continue current regimen since getting pain relief (2) Essential hypertension Is this a current diagnosis for this admission?: Yes Plan: Patient is cardiorenal. Stable since adding midodrine. Continue hydralazine, Imdur, losartan and coreg current dose (3) VIOLETA (obstructive sleep apnea) Is this a current diagnosis for this admission?: Yes Plan: May be contributing to overall presentation. Patient states that [facility] (4) Type 2 diabetes mellitus Qualifiers: Diabetes mellitus half-way insulin use: without long distance operator use Diabetes mellitus complication status: with unspecified complications Qualified Code(s) : E11.8 - Type 2 diabetes mellitus with unspecified complications Is this a current diagnosis for this admission?: Yes Plan: Continue present management. Stable (5) Dysuria Is this a current diagnosis for this admission?: Yes Plan: Urinalysis noted. Likely relate to swelling of his penis. Resolved (6) Acute on chronic systolic and diastolic heart failure, NYHA class 4 Is this a current diagnosis for this admission?: Yes Plan: Change to oral diuresis. Continue losartan, hydralazine, Imdur and Coreg (7) DEANNA (acute kidney injury) Is this a current diagnosis for this admission?: Yes Plan: Due to cardiorenal syndrome. Resolved. Continue monitoring closely (8) Urinary retention Is this a current diagnosis for this admission?: Yes Plan: Resolved (9) Pain of right lower extremity Is this a current diagnosis for this admission?: Yes Plan: Resolved. Negative venous Doppler study of her lower extremity (10) Abdominal pain Qualifiers: Abdominal location: lower abdomen, unspecified Qualified Code(s): R10.30 - Lower abdominal pain, unspecified Is this a current diagnosis for this admission?: Yes Plan: Resolved (11) Hydrocele of spermatic cord, testis, or tunica vaginalis Is this a current diagnosis for this admission?: Yes Plan: Patient inform about results of sonogram. No further intervention (12) Chest pain Qualifiers: Chest pain type: precordial pain Qualified Code(s): R07.2 - Precordial pain Is this a current diagnosis for this admission?: Yes Plan: Troponin is patient found to get chest pain off and on. Troponin trended and negative. Continue current regimen. Will make an appointment with Dr. Barnes - Time Time Spent with patient: 15-24 minutes Medications reviewed and adjusted accordingly: Yes Anticipated discharge: Home with Homehealth Within: within 48 hours - Inpatient Certification Based on my medical assessment, after consideration of the patient's comorbidities, presenting symptoms, or acuity I expect that the services needed warrant INPATIENT care.: Yes I certify that my determination is in accordance with my understanding of Medicare's requirements for reasonable and necessary INPATIENT services [42 CFR 412.3e].: Yes Medical Necessity: Need Close Monitoring Due to Risk of Patient Decompensation
[2017-08-15] MEDS: TAMSULOSIN HCL 0.4 MG CAP.SR.24H PO SCH (18:32)
[2017-08-15] MEDS: TRAZODONE HCL 50 MG TABLET PO SCH (23:07)
[2017-08-16] MEDS: ACETAMINOPHEN 325 MG TABLET PO PRN (04:02)
[2017-08-16] MEDS: GABAPENTIN 100 MG CAPSULE PO SCH ×3 (06:55→21:28)
[2017-08-16] MEDS: BUMETANIDE 1 MG TABLET PO SCH ×2 (06:55→17:48)
[2017-08-16] MEDS: LANSOPRAZOLE 15 MG TAB.RAP.DR PO SCH (06:55)
[2017-08-16] MEDS: HYDRALAZINE HCL 25 MG TABLET PO SCH ×3 (06:55→21:28)
[2017-08-16] MEDS: ENOXAPARIN SODIUM INJ 40 MG/0.4 ML DISP.SYRIN SUBCUT SCH (10:32)
[2017-08-16] MEDS: CLOPIDOGREL BISULFATE 75 MG TABLET PO SCH (10:33)
[2017-08-16] MEDS: FERROUS SULFATE 325 MG TABLET PO SCH ×3 (10:33→17:49)
[2017-08-16] MEDS: POTASSIUM CHLORIDE 10 MEQ TABLET.SA PO SCH (10:33)
[2017-08-16] MEDS: CARVEDILOL 12.5 MG TABLET PO SCH (10:33)
[2017-08-16] MEDS: OMEGA-3 ACID ETHYL ESTERS 1 GM CAPSULE PO SCH ×2 (10:34→17:49)
[2017-08-16] MEDS: ASCORBIC ACID 500 MG TABLET PO SCH (10:34)
[2017-08-16] MEDS: LOSARTAN POTASSIUM 50 MG TABLET PO SCH (10:34)
[2017-08-16] MEDS: ASPIRIN 81 MG TABLET, CHEWABLE PO SCH (10:34)
[2017-08-16] MEDS: ISOSORBIDE MONONITRATE 30 MG TAB.ER.24H PO SCH (10:35)
[2017-08-16] MEDS: DOCUSATE SODIUM 100 MG CAPSULE PO SCH (10:35)
[2017-08-16] MEDS: DULOXETINE HCL 30 MG CAPSULE.DR PO SCH (10:35)
[2017-08-16] MEDS: TIOTROPIUM BROMIDE DPI 5 CAP/KIT (18 MCG/CAP) IH SCH (10:36)
[2017-08-16] MEDS: MIDODRINE HCL 5 MG TABLET PO SCH ×3 (10:36→17:48)
[2017-08-16] MEDS: FLUTICASONE/SALMETEROL DISKUS 250-50 MCG/DOSE IH SCH ×2 (10:36→21:28)
[2017-08-16] MEDS: CYCLOSPORINE 0.05% OPH EMULSIO 0.4 ML DROPERETTE OU SCH ×2 (10:36→17:49)
[2017-08-16] MEDS ORDERED: ONDANSETRON HCL INJ/PF 4 MG/2 ML SDV IV PRN (13:35)
--- NOTE | 2017-08-16 13:40 | PDOC PROGRESS REPORT ---
Subjective Progress Note for:: 08/16/17 Subjective:: No complaints. Nurse then reported that patient was complaining of some nausea and that probably took too much potassium Review of systems All organ systems evaluated and negative except as in subjective All laboratories and significant diagnostics have been reviewed Reason For Visit: HEART FAILURE Physical Exam Vital Signs: Temp Pulse Resp BP Pulse Ox 98.7 F 107 H 20 101/75 93 08/16/17 00:00 08/16/17 02:00 08/16/17 00:00 08/16/17 00:00 08/16/17 00:00 Intake & Output 08/15/17 08/16/17 08/17/17 06:59 06:59 06:59 Intake Total 676 502 Output Total 600 250 Balance 76 252 General appearance: PRESENT: cooperative, morbidly obese Head exam: PRESENT: atraumatic, normocephalic Eye exam: PRESENT: conjunctiva pink, EOMI, PERRLA Ear exam: PRESENT: normal external ear exam Neck exam: PRESENT: full ROM. ABSENT: JVD, lymphadenopathy Respiratory exam: PRESENT: clear to auscultation rahul Cardiovascular exam: PRESENT: RRR. ABSENT: diastolic murmur, systolic murmur GI/Abdominal exam: PRESENT: normal bowel sounds, soft. ABSENT: tenderness Extremities exam: PRESENT: full ROM, +2 edema Musculoskeletal exam: PRESENT: ambulatory Neurological exam: PRESENT: alert, awake, oriented to person, oriented to place , oriented to time, oriented to situation Skin exam: PRESENT: intact, normal color Results Laboratory Results: 08/15/17 06:52 08/15/17 06:52 08/15/17 08/15/17 06:52 06:52 WBC 4.6 RBC 4.77 Hgb 13.2 L Hct 40.4 MCV 85 MCH 27.7 MCHC 32.8 RDW 16.8 H Plt Count 185 Sodium 142.9 Potassium 3.7 Chloride 96 L Carbon Dioxide 37 H Anion Gap 10 BUN 23 H Creatinine 1.13 Est GFR ( Amer) > 60 Est GFR (Non-Af Amer) > 60 Glucose 105 Calcium 9.0 Magnesium 1.9 07/31/17 07/31/17 07/31/17 05:24 10:51 17:25 Troponin I 0.064 0.055 0.065 08/13/17 08/13/17 08/14/17 15:50 21:00 02:58 Troponin I 0.045 0.052 0.046 Impressions: Chest X-Ray 07/30/17 18:24 IMPRESSION: Cardiomegaly without CHF. Cannot exclude a small left pleural effusion or limited left lower lobe infiltrate. Venous Doppler Study 08/11/17 00:00 IMPRESSION: NO EVIDENCE OF DVT OR SVT IN THE RIGHT LEG. Scrotum Ultrasound 08/12/17 00:00 IMPRESSION: Small left hydrocele. Small peripheral right testicular cyst. No acute abnormality. Assessment & Plan - Diagnosis (1) Diabetic neuropathy Qualifiers: Diabetes mellitus type: type 2 Diabetes mellitus complication detail: diabetic polyneuropathy Qualified Code(s): E11.42 - Type 2 diabetes mellitus with diabetic polyneuropathy Is this a current diagnosis for this admission?: Yes Plan: Continue current regimen (2) Essential hypertension Is this a current diagnosis for this admission?: Yes Plan: Patient is cardiorenal. Stable since adding midodrine. Continue hydralazine, Imdur, losartan and increase coreg current dose (3) VIOLETA (obstructive sleep apnea) Is this a current diagnosis for this admission?: Yes Plan: May be contributing to overall presentation. Patient states that he will [facility] (4) Type 2 diabetes mellitus Qualifiers: Diabetes mellitus corn cutter insulin use: without corn cutter use Diabetes mellitus complication status: with unspecified complications Qualified Code(s) : E11.8 - Type 2 diabetes mellitus with unspecified complications Is this a current diagnosis for this admission?: Yes Plan: Continue present management. Stable (5) Dysuria Is this a current diagnosis for this admission?: Yes Plan: Urinalysis noted. Likely relate to swelling of his penis. Resolved (6) Acute on chronic systolic and diastolic heart failure, NYHA class 4 Is this a current diagnosis for this admission?: Yes Plan: Change to oral diuresis. Continue losartan, hydralazine, Imdur and Coreg (7) DEANNA (acute kidney injury) Is this a current diagnosis for this admission?: Yes Plan: Due to cardiorenal syndrome. Resolved. Continue monitoring closely (8) Urinary retention Is this a current diagnosis for this admission?: Yes Plan: Resolved (9) Pain of right lower extremity Is this a current diagnosis for this admission?: Yes Plan: Resolved. Negative venous Doppler study of her lower extremity (10) Abdominal pain Qualifiers: Abdominal location: lower abdomen, unspecified Qualified Code(s): R10.30 - Lower abdominal pain, unspecified Is this a current diagnosis for this admission?: Yes Plan: Resolved (11) Hydrocele of spermatic cord, testis, or tunica vaginalis Is this a current diagnosis for this admission?: Yes Plan: Patient inform about results of sonogram. No further intervention (12) Chest pain Qualifiers: Chest pain type: precordial pain Qualified Code(s): R07.2 - Precordial pain Is this a current diagnosis for this admission?: Yes Plan: Troponin is patient found to get chest pain off and on. Troponin trended and negative. Continue current regimen. Will make an appointment with Dr. Barnes on discharge - Time Time Spent with patient: 15-24 minutes Medications reviewed and adjusted accordingly: Yes Anticipated discharge: Home with Homehealth Within: within 48 hours - Inpatient Certification Based on my medical assessment, after consideration of the patient's comorbidities, presenting symptoms, or acuity I expect that the services needed warrant INPATIENT care.: Yes I certify that my determination is in accordance with my understanding of Medicare's requirements for reasonable and necessary INPATIENT services [42 CFR 412.3e].: Yes Medical Necessity: Need Close Monitoring Due to Risk of Patient Decompensation, Need For Continuous Telemetry Monitoring
[2017-08-16] MEDS ORDERED: CARVEDILOL 12.5 MG TABLET PO ONE (14:00)
[2017-08-16 14:31] LABS: BLOOD UREA NITROGEN 24 mg/dL (7-20); CALCIUM 9.1 mg/dL (8.4-10.2); GLUCOSE 138 mg/dL (75-110)
[2017-08-16 14:41] LABS: ANION GAP 5 (5-19); CHLORIDE 99 mmol/L (98-107); POTASSIUM 3.9 mmol/L (3.6-5.0); SODIUM 142.3 mmol/L (137-145)
[2017-08-16 14:42] LABS: ARTERIAL BLOOD BASE EXCESS 10.4 mmol/L; ARTERIAL BLOOD H2CO3 1.39 mmol/L (1.05-1.35); ARTERIAL BLOOD HCO3 35.1 mmol/L (20-26); ARTERIAL BLOOD O2 SATURATION 95.1 % (94-98); ARTERIAL BLOOD PCO2 46.2 mmHg (35-45); ARTERIAL BLOOD PO2 69.6 mmHg (80-100); ARTERIAL BLOOD TOTAL CO2 36.5 mmol/L (23-27)
[2017-08-16 14:43] LABS: ARTERIAL BLOOD FIO2 ROOM AIR
[2017-08-16 14:44] LABS: CARBON DIOXIDE 38 mmol/L (22-30)
[2017-08-16] MEDS: TAMSULOSIN HCL 0.4 MG CAP.SR.24H PO SCH (17:49)
[2017-08-16] MEDS: INSULIN LISPRO 100 UNIT/ML 3 ML VIAL SUBCUT PRN (21:29)
[2017-08-16] MEDS: TRAZODONE HCL 50 MG TABLET PO SCH (21:34)
[2017-08-16] MEDS ORDERED: CARVEDILOL 12.5 MG TABLET PO SCH (22:00)
[2017-08-17] MEDS ORDERED: NORMAL SALINE 1000 ML 250 ML IV ONE (04:30)
[2017-08-17] MEDS: BUMETANIDE 1 MG TABLET PO SCH ×2 (05:26→16:40)
[2017-08-17] MEDS: LANSOPRAZOLE 15 MG TAB.RAP.DR PO SCH (05:26)
[2017-08-17] MEDS: GABAPENTIN 100 MG CAPSULE PO SCH ×3 (05:26→21:55)
[2017-08-17] MEDS ORDERED: CARVEDILOL 12.5 MG TABLET PO SCH (10:00)
[2017-08-17] MEDS: ASPIRIN 81 MG TABLET, CHEWABLE PO SCH (10:22)
[2017-08-17] MEDS: DOCUSATE SODIUM 100 MG CAPSULE PO SCH (10:22)
[2017-08-17] MEDS: ASCORBIC ACID 500 MG TABLET PO SCH (10:22)
[2017-08-17] MEDS: CYCLOSPORINE 0.05% OPH EMULSIO 0.4 ML DROPERETTE OU SCH ×2 (10:22→16:43)
[2017-08-17] MEDS: FERROUS SULFATE 325 MG TABLET PO SCH ×3 (10:22→16:39)
[2017-08-17] MEDS: DULOXETINE HCL 30 MG CAPSULE.DR PO SCH (10:22)
[2017-08-17] MEDS: CLOPIDOGREL BISULFATE 75 MG TABLET PO SCH (10:22)
[2017-08-17] MEDS: POTASSIUM CHLORIDE 10 MEQ TABLET.SA PO SCH (10:23)
[2017-08-17] MEDS: TIOTROPIUM BROMIDE DPI 5 CAP/KIT (18 MCG/CAP) IH SCH (10:23)
[2017-08-17] MEDS: FLUTICASONE/SALMETEROL DISKUS 250-50 MCG/DOSE IH SCH ×2 (10:23→21:53)
[2017-08-17] MEDS: OMEGA-3 ACID ETHYL ESTERS 1 GM CAPSULE PO SCH ×2 (10:23→16:41)
[2017-08-17] MEDS: ISOSORBIDE MONONITRATE 30 MG TAB.ER.24H PO SCH (10:23)
[2017-08-17] MEDS: MIDODRINE HCL 5 MG TABLET PO SCH ×3 (10:23→16:40)
[2017-08-17] MEDS: ENOXAPARIN SODIUM INJ 40 MG/0.4 ML DISP.SYRIN SUBCUT SCH (10:23)
[2017-08-17] MEDS: CARVEDILOL 12.5 MG TABLET PO SCH ×2 (11:45→21:53)
[2017-08-17] MEDS: LOSARTAN POTASSIUM 50 MG TABLET PO SCH (11:45)
--- NOTE | 2017-08-17 14:21 | PDOC PROGRESS REPORT ---
Subjective Progress Note for:: 08/17/17 Subjective:: No complaints. Review of systems All organ systems evaluated and negative except as in subjective All laboratories and significant diagnostics have been reviewed Reason For Visit: HEART FAILURE Physical Exam Vital Signs: Temp Pulse Resp BP Pulse Ox 98.8 F 101 H 22 H 95/57 L 93 08/16/17 20:50 08/17/17 07:00 08/16/17 20:50 08/17/17 07:02 08/16/17 20:50 Intake & Output 08/16/17 08/17/17 08/18/17 06:59 06:59 06:59 Intake Total 502 400 Output Total 250 750 Balance 252 -350 Weight 111.8 kg General appearance: PRESENT: cooperative, morbidly obese Head exam: PRESENT: atraumatic, normocephalic Eye exam: PRESENT: conjunctiva pink, EOMI, PERRLA Ear exam: PRESENT: normal external ear exam Neck exam: PRESENT: full ROM. ABSENT: JVD, lymphadenopathy, tenderness Respiratory exam: PRESENT: clear to auscultation rahul Cardiovascular exam: PRESENT: RRR. ABSENT: diastolic murmur, systolic murmur GI/Abdominal exam: PRESENT: normal bowel sounds, soft. ABSENT: tenderness Extremities exam: PRESENT: full ROM, +2 edema Musculoskeletal exam: PRESENT: ambulatory Neurological exam: PRESENT: alert, awake, oriented to person, oriented to place , oriented to time, oriented to situation, CN II-XII grossly intact Psychiatric exam: PRESENT: appropriate affect, normal mood Skin exam: PRESENT: intact, normal color Results Laboratory Results: 08/15/17 06:52 08/16/17 14:05 08/16/17 08/16/17 13:45 14:05 Carbonic Acid 1.39 H HCO3/H2CO3 Ratio 25:1 ABG pH 7.50 H ABG pCO2 46.2 H ABG pO2 69.6 L ABG HCO3 35.1 H ABG O2 Saturation 95.1 ABG Base Excess 10.4 FiO2 ROOM AIR Sodium 142.3 Potassium 3.9 Chloride 99 Carbon Dioxide 38 H Anion Gap 5 BUN 24 H Creatinine 1.10 Est GFR ( Amer) > 60 Est GFR (Non-Af Amer) > 60 Glucose 138 H Calcium 9.1 07/31/17 07/31/17 07/31/17 05:24 10:51 17:25 Troponin I 0.064 0.055 0.065 08/13/17 08/13/17 08/14/17 15:50 21:00 02:58 Troponin I 0.045 0.052 0.046 Impressions: Chest X-Ray 07/30/17 18:24 IMPRESSION: Cardiomegaly without CHF. Cannot exclude a small left pleural effusion or limited left lower lobe infiltrate. Venous Doppler Study 08/11/17 00:00 IMPRESSION: NO EVIDENCE OF DVT OR SVT IN THE RIGHT LEG. Scrotum Ultrasound 08/12/17 00:00 IMPRESSION: Small left hydrocele. Small peripheral right testicular cyst. No acute abnormality. Assessment & Plan - Diagnosis (1) Diabetic neuropathy Qualifiers: Diabetes mellitus type: type 2 Diabetes mellitus complication detail: diabetic polyneuropathy Qualified Code(s): E11.42 - Type 2 diabetes mellitus with diabetic polyneuropathy Is this a current diagnosis for this admission?: Yes Plan: Continue current regimen (2) Essential hypertension Is this a current diagnosis for this admission?: Yes Plan: Patient is cardiorenal. Stable since adding midodrine. Continue hydralazine, Imdur, losartan and decrease coreg current dose (3) VIOLETA (obstructive sleep apnea) Is this a current diagnosis for this admission?: Yes Plan: May be contributing to overall presentation. Patient states that he [facility] (4) Type 2 diabetes mellitus Qualifiers: Diabetes mellitus fci insulin use: without continuous churn buttermaker use Diabetes mellitus complication status: with unspecified complications Qualified Code(s) : E11.8 - Type 2 diabetes mellitus with unspecified complications Is this a current diagnosis for this admission?: Yes Plan: Continue present management. Stable (5) Dysuria Is this a current diagnosis for this admission?: Yes Plan: Urinalysis noted. Likely relate to swelling of his penis. Resolved (6) Acute on chronic systolic and diastolic heart failure, NYHA class 4 Is this a current diagnosis for this admission?: Yes Plan: Continue oral diuresis. Continue losartan, hydralazine, Imdur and Coreg (7) DEANNA (acute kidney injury) Is this a current diagnosis for this admission?: Yes Plan: Due to cardiorenal syndrome. Resolved. (8) Urinary retention Is this a current diagnosis for this admission?: Yes Plan: Resolved (9) Pain of right lower extremity Is this a current diagnosis for this admission?: Yes Plan: Resolved. Negative venous Doppler study of her lower extremity (10) Abdominal pain Qualifiers: Abdominal location: lower abdomen, unspecified Qualified Code(s): R10.30 - Lower abdominal pain, unspecified Is this a current diagnosis for this admission?: Yes Plan: Resolved (11) Hydrocele of spermatic cord, testis, or tunica vaginalis Is this a current diagnosis for this admission?: Yes Plan: Patient inform about results of sonogram. No further intervention (12) Chest pain Qualifiers: Chest pain type: precordial pain Qualified Code(s): R07.2 - Precordial pain Is this a current diagnosis for this admission?: Yes Plan: Troponin is patient found to get chest pain off and on. Troponin trended and negative. Continue current regimen. Will make an appointment with Dr. Barnes on discharge - Time Time Spent with patient: 15-24 minutes Medications reviewed and adjusted accordingly: Yes Anticipated discharge: Home with Homehealth Within: within 24 hours - Inpatient Certification Based on my medical assessment, after consideration of the patient's comorbidities, presenting symptoms, or acuity I expect that the services needed warrant INPATIENT care.: Yes I certify that my determination is in accordance with my understanding of Medicare's requirements for reasonable and necessary INPATIENT services [42 CFR 412.3e].: Yes Medical Necessity: Need Close Monitoring Due to Risk of Patient Decompensation, Need For Continuous Telemetry Monitoring
[2017-08-17] MEDS: TAMSULOSIN HCL 0.4 MG CAP.SR.24H PO SCH (16:41)
[2017-08-17] MEDS: ACETAMINOPHEN 325 MG TABLET PO PRN (21:54)
[2017-08-17] MEDS: TRAZODONE HCL 50 MG TABLET PO SCH (21:57)
[2017-08-17] MEDS: INSULIN LISPRO 100 UNIT/ML 3 ML VIAL SUBCUT PRN (21:59)
[2017-08-18] MEDS: BUMETANIDE 1 MG TABLET PO SCH ×2 (06:54→17:06)
[2017-08-18] MEDS: GABAPENTIN 100 MG CAPSULE PO SCH ×3 (06:54→22:36)
[2017-08-18] MEDS: LANSOPRAZOLE 15 MG TAB.RAP.DR PO SCH (06:55)
[2017-08-18 07:01] LABS: HEMOGLOBIN 13.2 g/dL (13.5-17.0); MEAN CORPUSCULAR HEMOGLOBIN 27.4 pg (27.0-33.4); MEAN CORPUSCULAR HGB CONC 32.2 g/dL (32.0-36.0); MEAN CORPUSCULAR VOLUME 85 fl (80-97); PLATELET COUNT 233 10^3/uL (150-450); RED BLOOD COUNT 4.82 10^6/uL (4.35-5.55); RED CELL DISTRIBUTION WIDTH 16.8 % (11.5-14.0); WHITE BLOOD COUNT 5.8 10^3/uL (4.0-10.5)
[2017-08-18 07:28] LABS: ALANINE AMINOTRANSFERASE 35 U/L (21-72); ALBUMIN 3.7 g/dL (3.5-5.0); ALKALINE PHOSPHATASE 54 U/L (38-126); ANION GAP 8 (5-19); ASPARTATE AMINO TRANSFERASE 26 U/L (17-59); BILIRUBIN,DIRECT 0.4 mg/dL (0.0-0.4); BILIRUBIN,TOTAL 0.4 mg/dL (0.2-1.3); BLOOD UREA NITROGEN 34 mg/dL (7-20); CALCIUM 9.1 mg/dL (8.4-10.2); CARBON DIOXIDE 36 mmol/L (22-30); CHLORIDE 98 mmol/L (98-107); GLUCOSE 116 mg/dL (75-110); POTASSIUM 3.9 mmol/L (3.6-5.0); SODIUM 141.8 mmol/L (137-145); TOTAL PROTEIN 6.3 g/dL (6.3-8.2)
[2017-08-18] MEDS: LOSARTAN POTASSIUM 50 MG TABLET PO SCH (09:30)
[2017-08-18] MEDS: CLOPIDOGREL BISULFATE 75 MG TABLET PO SCH (09:31)
[2017-08-18] MEDS: POTASSIUM CHLORIDE 10 MEQ TABLET.SA PO SCH (09:31)
[2017-08-18] MEDS: FERROUS SULFATE 325 MG TABLET PO SCH ×3 (09:31→17:12)
[2017-08-18] MEDS: DOCUSATE SODIUM 100 MG CAPSULE PO SCH (09:31)
[2017-08-18] MEDS: CARVEDILOL 12.5 MG TABLET PO SCH (09:31)
[2017-08-18] MEDS: ASPIRIN 81 MG TABLET, CHEWABLE PO SCH (09:32)
[2017-08-18] MEDS: OMEGA-3 ACID ETHYL ESTERS 1 GM CAPSULE PO SCH ×2 (09:32→17:07)
[2017-08-18] MEDS: FLUTICASONE/SALMETEROL DISKUS 250-50 MCG/DOSE IH SCH ×2 (09:32→22:36)
[2017-08-18] MEDS: DULOXETINE HCL 30 MG CAPSULE.DR PO SCH (09:32)
[2017-08-18] MEDS: ISOSORBIDE MONONITRATE 30 MG TAB.ER.24H PO SCH (09:32)
[2017-08-18] MEDS: ASCORBIC ACID 500 MG TABLET PO SCH (09:32)
[2017-08-18] MEDS: CYCLOSPORINE 0.05% OPH EMULSIO 0.4 ML DROPERETTE OU SCH ×2 (09:32→17:08)
[2017-08-18] MEDS: TIOTROPIUM BROMIDE DPI 5 CAP/KIT (18 MCG/CAP) IH SCH (09:33)
[2017-08-18] MEDS: MIDODRINE HCL 5 MG TABLET PO SCH ×3 (09:39→17:13)
[2017-08-18] MEDS: ENOXAPARIN SODIUM INJ 40 MG/0.4 ML DISP.SYRIN SUBCUT SCH (09:41)
[2017-08-18] MEDS: INSULIN LISPRO 100 UNIT/ML 3 ML VIAL SUBCUT PRN ×2 (11:20→22:52)
--- NOTE | 2017-08-18 14:15 | PDOC PROGRESS REPORT ---
Subjective Progress Note for:: 08/18/17 Subjective:: No complaints. Solution Design And Analysis Manager states that patient is having a problem trying to coordinate care at home. Accordingly [facility] can only cover for 2 visits during the week and patient basically needs assistance on a daily basis. Patient is quite reluctant to go to a [facility]. Patient presented to ED complaining of shortness of breath and bilateral leg swelling. He has multiple medical issues which are culprit of presentation including systolic congestive heart failure, sleep apnea and pulmonary hypertension. Patient does not use CPAP which in my opinion is major culprit of presentation. Patient suffers from PTSD and states that he can only stay with CPAP for 2 hours is gets claustrophobic. Limiting factor in treatment had been hypotension. Patient was placed on midodrine with stabilization of blood pressure then started Coreg, Imdur, losartan and Bumex. We have been trending BMP as patient becomes cardiorenal. Review of systems All organ systems evaluated and negative except as in subjective All laboratories and significant diagnostics have been reviewed Reason For Visit: HEART FAILURE Physical Exam Vital Signs: Temp Pulse Resp BP Pulse Ox 98.5 F 100 15 104/61 94 08/18/17 03:18 08/18/17 07:00 08/18/17 03:18 08/18/17 03:18 08/18/17 03:18 Intake & Output 08/17/17 08/18/17 08/19/17 06:59 06:59 06:59 Intake Total 400 840 Output Total 750 200 Balance -350 640 Weight 111.8 kg General appearance: PRESENT: no acute distress, cooperative, morbidly obese Head exam: PRESENT: atraumatic, normocephalic Eye exam: PRESENT: conjunctiva pink, EOMI, PERRLA Neck exam: PRESENT: full ROM. ABSENT: JVD, lymphadenopathy, tenderness Respiratory exam: PRESENT: clear to auscultation rahul Cardiovascular exam: PRESENT: RRR. ABSENT: diastolic murmur, systolic murmur GI/Abdominal exam: PRESENT: normal bowel sounds, soft. ABSENT: tenderness Extremities exam: PRESENT: full ROM, +2 edema Musculoskeletal exam: PRESENT: ambulatory Neurological exam: PRESENT: alert, awake, oriented to person, oriented to place , oriented to time, oriented to situation, CN II-XII grossly intact Psychiatric exam: PRESENT: appropriate affect, normal mood Skin exam: PRESENT: intact, normal color Results Laboratory Results: 08/18/17 06:52 08/18/17 06:52 08/18/17 08/18/17 06:52 06:52 WBC 5.8 RBC 4.82 Hgb 13.2 L Hct 41.0 MCV 85 MCH 27.4 MCHC 32.2 RDW 16.8 H Plt Count 233 Sodium 141.8 Potassium 3.9 Chloride 98 Carbon Dioxide 36 H Anion Gap 8 BUN 34 H Creatinine 1.34 H Est GFR ( Amer) > 60 Est GFR (Non-Af Amer) 54 L Glucose 116 H Calcium 9.1 Magnesium 2.1 Total Bilirubin 0.4 AST 26 ALT 35 Alkaline Phosphatase 54 Total Protein 6.3 Albumin 3.7 07/31/17 07/31/17 07/31/17 05:24 10:51 17:25 Troponin I 0.064 0.055 0.065 08/13/17 08/13/17 08/14/17 15:50 21:00 02:58 Troponin I 0.045 0.052 0.046 Impressions: Chest X-Ray 07/30/17 18:24 IMPRESSION: Cardiomegaly without CHF. Cannot exclude a small left pleural effusion or limited left lower lobe infiltrate. Venous Doppler Study 08/11/17 00:00 IMPRESSION: NO EVIDENCE OF DVT OR SVT IN THE RIGHT LEG. Scrotum Ultrasound 08/12/17 00:00 IMPRESSION: Small left hydrocele. Small peripheral right testicular cyst. No acute abnormality. Assessment & Plan - Diagnosis (1) Diabetic neuropathy Qualifiers: Diabetes mellitus type: type 2 Diabetes mellitus complication detail: diabetic polyneuropathy Qualified Code(s): E11.42 - Type 2 diabetes mellitus with diabetic polyneuropathy Is this a current diagnosis for this admission?: Yes Plan: Continue current regimen (2) Essential hypertension Is this a current diagnosis for this admission?: Yes Plan: Patient is cardiorenal. Stable since adding midodrine. Continue hydralazine, Imdur, losartan and coreg (3) VIOLETA (obstructive sleep apnea) Is this a current diagnosis for this admission?: Yes Plan: Major contributor to overall presentation. Patient states that he [facility] (4) Type 2 diabetes mellitus Qualifiers: Diabetes mellitus termite control servicer insulin use: without termite control servicer use Diabetes mellitus complication status: with unspecified complications Qualified Code(s) : E11.8 - Type 2 diabetes mellitus with unspecified complications Is this a current diagnosis for this admission?: Yes Plan: Continue present management. Stable (5) Dysuria Is this a current diagnosis for this admission?: Yes Plan: Urinalysis noted. Likely relate to swelling of his penis. Resolved (6) Acute on chronic systolic and diastolic heart failure, NYHA class 4 Is this a current diagnosis for this admission?: Yes Plan: Decrease bumex dose and order 500 mls Normal saline bolus. Continue losartan, hydralazine, Imdur and Coreg (7) DEANNA (acute kidney injury) Is this a current diagnosis for this admission?: Yes Plan: Due to cardiorenal syndrome. Up today. Decrease bumex dose and order fluid bolus. (8) Urinary retention Is this a current diagnosis for this admission?: Yes Plan: Resolved (9) Pain of right lower extremity Is this a current diagnosis for this admission?: Yes Plan: Resolved. Negative venous Doppler study of her lower extremity (10) Abdominal pain Qualifiers: Abdominal location: lower abdomen, unspecified Qualified Code(s): R10.30 - Lower abdominal pain, unspecified Is this a current diagnosis for this admission?: Yes Plan: Resolved (11) Hydrocele of spermatic cord, testis, or tunica vaginalis Is this a current diagnosis for this admission?: Yes Plan: Patient inform about results of sonogram. No further intervention (12) Chest pain Qualifiers: Chest pain type: precordial pain Qualified Code(s): R07.2 - Precordial pain Is this a current diagnosis for this admission?: Yes Plan: Troponin is patient found to get chest pain off and on. Troponin trended and negative. Continue current regimen. Will make an appointment with Dr. Barnes on discharge - Time Time Spent with patient: 15-24 minutes Medications reviewed and adjusted accordingly: Yes Anticipated discharge: Other - Patient having problems to secure caretakers. [facility] insurance is [facility] - Inpatient Certification Based on my medical assessment, after consideration of the patient's comorbidities, presenting symptoms, or acuity I expect that the services needed warrant INPATIENT care.: Yes I certify that my determination is in accordance with my understanding of Medicare's requirements for reasonable and necessary INPATIENT services [42 CFR 412.3e].: Yes Medical Necessity: Need Close Monitoring Due to Risk of Patient Decompensation, Need For Continuous Telemetry Monitoring
[2017-08-18] MEDS ORDERED: NORMAL SALINE 1000 ML 500 ML IV ONE (15:00)
[2017-08-18] MEDS: TAMSULOSIN HCL 0.4 MG CAP.SR.24H PO SCH (17:06)
[2017-08-18] MEDS: TRAZODONE HCL 50 MG TABLET PO SCH (22:36)
[2017-08-18] MEDS: CARVEDILOL 6.25 MG TABLET PO SCH (22:36)
[2017-08-19] MEDS: ACETAMINOPHEN 325 MG TABLET PO PRN ×2 (05:44→13:44)
[2017-08-19] MEDS: GABAPENTIN 100 MG CAPSULE PO SCH ×3 (05:44→21:58)
[2017-08-19] MEDS: BUMETANIDE 1 MG TABLET PO SCH ×3 (05:48→21:58)
[2017-08-19] MEDS: LANSOPRAZOLE 15 MG TAB.RAP.DR PO SCH (05:48)
[2017-08-19 06:00] LABS: ANION GAP 10 (5-19); BLOOD UREA NITROGEN 30 mg/dL (7-20); CALCIUM 9.1 mg/dL (8.4-10.2); CARBON DIOXIDE 36 mmol/L (22-30); CHLORIDE 97 mmol/L (98-107); GLUCOSE 126 mg/dL (75-110); POTASSIUM 3.9 mmol/L (3.6-5.0); SODIUM 142.7 mmol/L (137-145)
[2017-08-19] MEDS: FERROUS SULFATE 325 MG TABLET PO SCH ×3 (08:07→19:30)
[2017-08-19] MEDS: DOCUSATE SODIUM 100 MG CAPSULE PO SCH (10:00)
[2017-08-19] MEDS: TIOTROPIUM BROMIDE DPI 5 CAP/KIT (18 MCG/CAP) IH SCH (10:00)
[2017-08-19] MEDS: POTASSIUM CHLORIDE 10 MEQ TABLET.SA PO SCH (10:01)
[2017-08-19] MEDS: CYCLOSPORINE 0.05% OPH EMULSIO 0.4 ML DROPERETTE OU SCH ×2 (10:02→19:30)
[2017-08-19] MEDS: FLUTICASONE/SALMETEROL DISKUS 250-50 MCG/DOSE IH SCH ×2 (10:03→21:57)
[2017-08-19] MEDS: OMEGA-3 ACID ETHYL ESTERS 1 GM CAPSULE PO SCH ×2 (10:04→19:30)
[2017-08-19] MEDS: ISOSORBIDE MONONITRATE 30 MG TAB.ER.24H PO SCH (10:05)
[2017-08-19] MEDS: LOSARTAN POTASSIUM 25 MG TABLET PO SCH (10:06)
[2017-08-19] MEDS: CLOPIDOGREL BISULFATE 75 MG TABLET PO SCH (10:06)
[2017-08-19] MEDS: MIDODRINE HCL 5 MG TABLET PO SCH ×3 (10:09→19:30)
[2017-08-19] MEDS: DULOXETINE HCL 30 MG CAPSULE.DR PO SCH (10:10)
[2017-08-19] MEDS: ASCORBIC ACID 500 MG TABLET PO SCH (10:10)
[2017-08-19] MEDS: ASPIRIN 81 MG TABLET, CHEWABLE PO SCH (10:10)
[2017-08-19] MEDS: CARVEDILOL 6.25 MG TABLET PO SCH ×2 (10:11→21:57)
[2017-08-19] MEDS: ENOXAPARIN SODIUM INJ 40 MG/0.4 ML DISP.SYRIN SUBCUT SCH (10:11)
[2017-08-19] MEDS: INSULIN LISPRO 100 UNIT/ML 3 ML VIAL SUBCUT PRN (11:45)
[2017-08-19 13:41] LABS: APPEARANCE,URINE CLEAR; BILIRUBIN,URINE NEGATIVE (NEGATIVE); COLOR,URINE YELLOW; GLUCOSE, URINE NEGATIVE (NEGATIVE); KETONES,URINE NEGATIVE (NEGATIVE); LEUKOCYTE ESTERASE,URINE NEGATIVE (NEGATIVE); NITRITE,URINE NEGATIVE (NEGATIVE); PROTEIN,URINE 30 mg/dL (NEGATIVE); URINE SPECIFIC GRAVITY 1.014; UROBILINOGEN,URINE NEGATIVE mg/dL (<2.0)
--- NOTE | 2017-08-19 17:24 | PDOC PROGRESS REPORT ---
Subjective Progress Note for:: 08/19/17 Subjective:: 61 yo Male with HF on midodrine and bumex. Patient describes improvement in his lower limb edema. He still has significant edema in his bilateral flanks and lower limbs. Of concern, his past 2 days of Is/Os have showed retention of fluid and not diuresis. Patient has been accepted at [facility]. Will increase Bumex to TID, and d/c Imdur, to assist in continued diuresis. Close to d/c to SNF, but would like to confirm that his treatment will sustain and improve his volume overloaded state. Reason For Visit: HEART FAILURE Physical Exam Vital Signs: Temp Pulse Resp BP Pulse Ox 98.1 F 100 18 102/72 95 08/19/17 14:59 08/19/17 14:59 08/19/17 14:59 08/19/17 14:59 08/19/17 14:59 Intake & Output 08/18/17 08/19/17 08/20/17 06:59 06:59 06:59 Intake Total 840 1344 Output Total 200 700 Balance 640 644 Weight 111.2 kg General appearance: PRESENT: no acute distress, cooperative. ABSENT: mild distress Head exam: PRESENT: atraumatic, normocephalic Eye exam: PRESENT: EOMI, PERRLA Ear exam: PRESENT: normal external ear exam Mouth exam: PRESENT: moist, neck supple. ABSENT: dry mucosa Throat exam: ABSENT: post pharyngeal erythema, tonsillar exudate Neck exam: ABSENT: lymphadenopathy, thyromegaly Respiratory exam: ABSENT: accessory muscle use, crackles, rales, rhonchi, stridor Cardiovascular exam: PRESENT: RRR, +S1, +S2 Pulses: PRESENT: normal radial pulses, +2 pedal pulses bilateral Vascular exam: ABSENT: normal capillary refill, pallor GI/Abdominal exam: PRESENT: firm - firmness in flanks with pitting edema. ABSENT: Delgado's sign Extremities exam: ABSENT: clubbing, joint swelling Musculoskeletal exam: PRESENT: full ROM. ABSENT: tenderness Neurological exam: PRESENT: awake, oriented to person, oriented to place Psychiatric exam: ABSENT: agitated, anxious, appropriate affect Focused psych exam: ABSENT: catatonic, delusional, euphoric Skin exam: ABSENT: abrasion, cyanosis, dry Results Laboratory Results: 08/18/17 06:52 08/19/17 05:11 08/19/17 08/19/17 05:11 13:10 Sodium 142.7 Potassium 3.9 Chloride 97 L Carbon Dioxide 36 H Anion Gap 10 BUN 30 H Creatinine 1.13 Est GFR ( Amer) > 60 Est GFR (Non-Af Amer) > 60 Glucose 126 H Calcium 9.1 Urine Color YELLOW Urine Appearance CLEAR Urine pH 5.0 Ur Specific [place] 1.014 Urine Protein 30 H Urine Glucose (UA) NEGATIVE Urine Ketones NEGATIVE Urine Blood NEGATIVE Urine Nitrite NEGATIVE Ur Leukocyte Esterase NEGATIVE Urine WBC (Auto) 0 Urine RBC (Auto) 1 07/31/17 07/31/17 07/31/17 05:24 10:51 17:25 Troponin I 0.064 0.055 0.065 08/13/17 08/13/17 08/14/17 15:50 21:00 02:58 Troponin I 0.045 0.052 0.046 Impressions: Chest X-Ray 07/30/17 18:24 IMPRESSION: Cardiomegaly without CHF. Cannot exclude a small left pleural effusion or limited left lower lobe infiltrate. Venous Doppler Study 08/11/17 00:00 IMPRESSION: NO EVIDENCE OF DVT OR SVT IN THE RIGHT LEG. Scrotum Ultrasound 08/12/17 00:00 IMPRESSION: Small left hydrocele. Small peripheral right testicular cyst. No acute abnormality. Assessment & Plan - Plan Summary Plan Summary: (1) Acute on chronic systolic and diastolic heart failure, NYHA class 4 Net positive fluid retention on the past 2 days. Takes 2mg of Bumex daily, currently on 1mg of Bumex BID. change Bumex to 1mg TID, d/c Imdur, to allow BP to increase mildly to aid forward perfusion to kidneys. Otherwise continue losartan, Coreg. (2) Essential hypertension low normal range continue losartan and coreg (3) VIOLETA (obstructive sleep apnea) significant [facility] after d/c (4) Type 2 diabetes mellitus Continue present management. Stable (5) Dysuria resolved (7) DEANNA (acute kidney injury) Due to cardiorenal syndrome. renal function improved. carefully adjusting bumex given his continued edematous state (8) Urinary retention Resolved (9) Pain of right lower extremity Resolved. Negative venous Doppler study of her lower extremity (10) Abdominal pain Resolved (11) Hydrocele of spermatic cord, testis, or tunica vaginalis US demonstrated this, patient was informed about this (12) Chest pain Troponin trended and negative. Continue current regimen. Make an appointment with Dr. Barnes at d/c (13) Diabetic neuropathy continue current therapy.
[2017-08-19] MEDS: TAMSULOSIN HCL 0.4 MG CAP.SR.24H PO SCH (19:30)
[2017-08-19] MEDS: TRAZODONE HCL 50 MG TABLET PO SCH (21:58)
[2017-08-20] MEDS: LANSOPRAZOLE 15 MG TAB.RAP.DR PO SCH (05:27)
[2017-08-20] MEDS: BUMETANIDE 1 MG TABLET PO SCH ×2 (05:27→14:15)
[2017-08-20] MEDS: GABAPENTIN 100 MG CAPSULE PO SCH ×2 (05:27→14:17)
[2017-08-20 06:22] LABS: HEMATOCRIT 40.2 % (37.9-51.0); MEAN CORPUSCULAR HEMOGLOBIN 27.2 pg (27.0-33.4); MEAN CORPUSCULAR HGB CONC 32.4 g/dL (32.0-36.0); MEAN CORPUSCULAR VOLUME 84 fl (80-97); PLATELET COUNT 257 10^3/uL (150-450); RED BLOOD COUNT 4.79 10^6/uL (4.35-5.55); RED CELL DISTRIBUTION WIDTH 16.8 % (11.5-14.0); WHITE BLOOD COUNT 4.9 10^3/uL (4.0-10.5)
[2017-08-20 06:40] LABS: ALBUMIN 3.6 g/dL (3.5-5.0); ANION GAP 10 (5-19); BLOOD UREA NITROGEN 27 mg/dL (7-20); CALCIUM 8.9 mg/dL (8.4-10.2); CARBON DIOXIDE 35 mmol/L (22-30); CHLORIDE 98 mmol/L (98-107); GLUCOSE 118 mg/dL (75-110); PHOSPHORUS 4.2 mg/dL (2.5-4.5)
[2017-08-20] MEDS: FERROUS SULFATE 325 MG TABLET PO SCH ×2 (08:59→11:48)
[2017-08-20] MEDS: LOSARTAN POTASSIUM 25 MG TABLET PO SCH (09:55)
[2017-08-20] MEDS: OMEGA-3 ACID ETHYL ESTERS 1 GM CAPSULE PO SCH (09:56)
[2017-08-20] MEDS: POTASSIUM CHLORIDE 10 MEQ TABLET.SA PO SCH (09:56)
[2017-08-20] MEDS: ASCORBIC ACID 500 MG TABLET PO SCH (09:56)
[2017-08-20] MEDS: DOCUSATE SODIUM 100 MG CAPSULE PO SCH (09:56)
[2017-08-20] MEDS: CYCLOSPORINE 0.05% OPH EMULSIO 0.4 ML DROPERETTE OU SCH (09:57)
[2017-08-20] MEDS: ASPIRIN 81 MG TABLET, CHEWABLE PO SCH (09:57)
[2017-08-20] MEDS: CLOPIDOGREL BISULFATE 75 MG TABLET PO SCH (09:57)
[2017-08-20] MEDS: CARVEDILOL 6.25 MG TABLET PO SCH (09:57)
[2017-08-20] MEDS: MIDODRINE HCL 5 MG TABLET PO SCH ×2 (09:57→14:16)
[2017-08-20] MEDS: DULOXETINE HCL 30 MG CAPSULE.DR PO SCH (09:57)
[2017-08-20] MEDS: FLUTICASONE/SALMETEROL DISKUS 250-50 MCG/DOSE IH SCH (09:58)
[2017-08-20] MEDS: TIOTROPIUM BROMIDE DPI 5 CAP/KIT (18 MCG/CAP) IH SCH (09:59)
[2017-08-20] MEDS: ENOXAPARIN SODIUM INJ 40 MG/0.4 ML DISP.SYRIN SUBCUT SCH (09:59)
--- NOTE | 2017-08-20 11:08 | PDOC TRANSFER SUMMARY ---
General - Admit/Disc Date/PCP Admission Date/Primary Care Provider: 07/31/17 00:19 Discharge Date: 08/20/17 - Discharge Diagnosis (1) Acute on chronic systolic and diastolic heart failure, NYHA class 4 Is this a current diagnosis for this admission?: Yes (2) Acute on chronic systolic CHF (congestive heart failure), NYHA class 4 Is this a current diagnosis for this admission?: Yes (3) DEANNA (acute kidney injury) Is this a current diagnosis for this admission?: Yes (4) Abdominal pain Is this a current diagnosis for this admission?: Yes (5) Chest pain Is this a current diagnosis for this admission?: Yes (6) Diabetic neuropathy Is this a current diagnosis for this admission?: Yes (7) Essential hypertension Is this a current diagnosis for this admission?: Yes (8) Hydrocele of spermatic cord, testis, or tunica vaginalis Is this a current diagnosis for this admission?: Yes (9) VIOLETA (obstructive sleep apnea) Is this a current diagnosis for this admission?: Yes (10) Pain of right lower extremity Is this a current diagnosis for this admission?: Yes (11) Type 2 diabetes mellitus Is this a current diagnosis for this admission?: Yes (12) Urinary retention Is this a current diagnosis for this admission?: Yes (13) Asthma Is this a current diagnosis for this admission?: Yes (14) Benign essential hypertension Is this a current diagnosis for this admission?: Yes (15) Cerebrovascular accident (CVA) Is this a current diagnosis for this admission?: Yes (16) Chest pain Is this a current diagnosis for this admission?: Yes (17) Chest pain of uncertain etiology Is this a current diagnosis for this admission?: Yes (18) DVT prophylaxis Is this a current diagnosis for this admission?: Yes (19) Fall at home Is this a current diagnosis for this admission?: Yes (20) History of CVA (cerebrovascular accident) Is this a current diagnosis for this admission?: Yes (21) Hyperlipidemia Is this a current diagnosis for this admission?: Yes (22) Respiratory distress Is this a current diagnosis for this admission?: Yes - Additional Information Discharge Diet: Cardiac, Diabetic Discharge Activity: Activity As Tolerated, Balance Activity w/Rest, Weigh Daily Prescriptions: Acetaminophen [Tylenol 325 mg Tablet] 650 mg PO Q4HP PRN #30 tablet PRN Reason: Bumetanide [Bumex 1 mg Tablet] 1 mg PO Q8 #90 tablet Carvedilol [Coreg 6.25 mg Tablet] 6.25 mg PO Q12 #60 tablet Duloxetine HCl [Cymbalta 30 mg Capsule.] 30 mg PO DAILY #30 capsule. Fluticasone/Salmeterol [Advair 250-50 Diskus 14 Dose/Diskus] 1 inh IH Q12 #1 inhaler Gabapentin [Neurontin 100 mg Capsule] 200 mg PO Q8 #90 capsule Insulin Lispro [Humalog Insulin (Lispro) 100 unit/mL] 0 - 12 unit SUBCUT ACHSP PRN #1 vial PRN Reason: Midodrine HCl [Proamatine 5 mg Tablet] 5 mg PO TID #90 tablet Nitroglycerin [Nitrostat 0.4 mg (1/150 Gr) Tabs 25/Bottle] 1 tab SL Q5MP PRN # 10 bottle PRN Reason: Polyethylene Glycol 3350 [Miralax Powder 17 gm/Packet] 17 gm PO DAILYP PRN #5 powd.pack PRN Reason: Tiotropium [place] [Spiriva Handihaler 5 Cap/Kit (18 Mcg/Cap)] 1 cap IH DAILY # 1 kit Tramadol HCl [Ultram 50 mg Tablet] 50 mg PO Q6HP PRN 5 Days #20 tablet PRN Reason: Trazodone HCl [Desyrel 50 mg Tablet] 50 mg PO QHS #30 tablet Home Medications: Albuterol Sulfate [Albuterol Sulfate 2.5mg/3 mL] 1 vial IH RTQIDP PRN 08/01/17 Albuterol Sulfate [Proair HFA] 2 puff IH Q6HP PRN 08/01/17 Ascorbic Acid [Vitamin C 500 mg Tablet] 500 mg PO DAILY 08/01/17 Aspirin [Aspirin 81 mg Chewable Tablet] 81 mg PO DAILY 08/01/17 Clopidogrel Bisulfate [Plavix 75 mg Tablet] 75 mg PO DAILY 08/01/17 Cyclosporine [Restasis Droperette] 1 each OU BID 08/01/17 Docusate Sodium [Colace 100 mg Capsule] 200 mg PO DAILY 08/01/17 Ferrous Sulfate [Feosol 325 mg Tablet] 325 mg PO MEALS 08/01/17 Lanolin Alcohol/Mo/W.pet/[place] [Eucerin Creme] 1 applic TP BIDP PRN 08/01/17 Losartan Potassium [Cozaar 50 mg Tablet] 50 mg PO DAILY 08/01/17 Metformin HCl [Glucophage 500 mg Tablet] 500 mg PO BIDBS 08/01/17 Lena-3 Acid Ethyl Esters [Lovaza 1 gm Capsule] 2 gm PO BID 08/01/17 Omeprazole 20 mg PO Q6AM 08/01/17 Potassium Chloride [Klor-Con 10 Meq Tablet.sa] 10 meq PO DAILY 08/01/17 Tamsulosin HCl [Flomax] 0.4 mg PO QPM 08/01/17 Acetaminophen [Tylenol 325 mg Tablet] 650 mg PO Q4HP PRN #30 tablet 08/20/17 Bumetanide [Bumex 1 mg Tablet] 1 mg PO Q8 #90 tablet 08/20/17 Carvedilol [Coreg 6.25 mg Tablet] 6.25 mg PO Q12 #60 tablet 08/20/17 Duloxetine HCl [Cymbalta 30 mg Capsule.] 30 mg PO DAILY #30 capsule. Fluticasone/Salmeterol [Advair 250-50 Diskus 14 Dose/Diskus] 1 inh IH Q12 #1 inhaler 08/20/17 Gabapentin [Neurontin 100 mg Capsule] 200 mg PO Q8 #90 capsule 08/20/17 Insulin Lispro [Humalog Insulin (Lispro) 100 unit/mL] 0 - 12 unit SUBCUT ACHSP PRN #1 vial 08/20/17 Midodrine HCl [Proamatine 5 mg Tablet] 5 mg PO TID #90 tablet 08/20/17 Nitroglycerin [Nitrostat 0.4 mg (1/150 Gr) Tabs 25/Bottle] 1 tab SL Q5MP PRN # 10 bottle 08/20/17 Polyethylene Glycol 3350 [Miralax Powder 17 gm/Packet] 17 gm PO DAILYP PRN #5 powd.pack 08/20/17 Tiotropium [place] [Spiriva Handihaler 5 Cap/Kit (18 Mcg/Cap)] 1 cap IH DAILY # 1 kit 08/20/17 Tramadol HCl [Ultram 50 mg Tablet] 50 mg PO Q6HP PRN 5 Days #20 tablet 08/20/17 Trazodone HCl [Desyrel 50 mg Tablet] 50 mg PO QHS #30 tablet 08/20/17 History of Present Illness Admission Date/PCP: 07/31/17 00:19 History of Present Illness: ALEX KNIGHT is a 61 year old male morbidly obese with history of ME in 2008, CAD/CHF (post AICD), obstructive sleep apnea (not on CPAP since malfunctioning for the last year or so), CVA (with minimal left arm residual weakness and dysarthria) and type 2 diabetes mellitus was admitted with above- mentioned complaints. He describes his chest pain as intermittent discomfort, localized to his anterior chest wall lasting for about half an hour at a time with no alleviating or aggravating factors. The last time he had chest "discomfort" was around 11 AM per patient. He took a baby aspirin with no significant relief. The pain was associated with palpitations, nausea but no vomiting or any diaphoresis or syncope. He also denied any fever or chills or any sick contacts. He said that he has a dry cough. He never received any influenza or pneumonia vaccines previously. He noticed increased leg swelling for the last 3 days and he has been sleeping in a chair. His exercise tolerance has been very limited by his shortness of breath. He said that he is compliant with his medications. The patient also complained of abdominal discomfort and chronic constipation. The last time he had a bowel movement was about 4 days ago. He denied any urinary symptoms but noticed that his urine output has been decreasing over the last few days. He lives by himself and he is able to ambulate using a cane. In the ED, his temperature was 97.9, heart rate 107, respiratory rate 20, blood pressure 130/86 with oxygen saturation of 97% on room air. Initial troponin was 0.059 with [place] proBNP [place] 2770. His WBC was 7.7 and his hemoglobin was 12.6. A CXR was done which showed cardiomegaly without CHF and possible small left pleural effusion/infiltrate. He received 40 mg IV Lasix x1, 1 mg IV Bumex x1 in addition to DuoNeb treatment 1 with minimal diuresis at this time. (see H and P for full admission details) Hospital Course Hospital Course: 61 yo Male with hx of CAD and ME in 2008, hx of CVA with left sided hemiparesis and dysarthria, and systolic/diastolic HF w/ AICD. Patient presented in acute on chronic systolic/diastolic HF. He was diuresed on bumex. His acute respiratory failure was treated with Duonebs. TTE performed, and showed an EF of 25-30% and diastolic HF. Patient's Bumex was titrated and renal function was monitored. His lower extremity swelling has gradually improved. Patient also has bilateral flank edema. Patient is currently on Bumex 1mg q8h. He will need his renal function, potassium level monitored in the next 5 days. Please weigh patient daily and restrict his fluids to 1800 cc/day. Given his recent DEANNA, he is not on an UZMA/ARB. Given his allergies, he is not on a statin. Patient is otherwise on ACS medications including coreg, asa, plavix. His forward perfusion is supported with midodrine. He is a falls risk and not on anticoagulation at present. Should continue to undergo rehabilitation for his mobility in the SNF. US of his legs was negative for DVT. Patient received an US of his scrotum due to pain complaints, and a left sided hydrocele was found. Prn pain treatment recommended. Patient had stable vitals, and was breathing room air with good O2 saturation and no wheezing on exam at the time of discharge. [facility] VIOLETA requiring CPAP support at night. Physical Exam Vital Signs: Temp Pulse Resp BP Pulse Ox 98.7 F 98 20 116/67 100 08/20/17 02:38 08/20/17 07:00 08/20/17 02:38 08/20/17 02:38 08/20/17 02:38 Intake & Output 08/19/17 08/20/17 08/21/17 06:59 06:59 06:59 Intake Total 1344 1572 Output Total 700 350 Balance 644 1222 Weight 111.2 kg 111.9 kg General appearance: PRESENT: no acute distress, obese Head exam: PRESENT: atraumatic, normocephalic Eye exam: PRESENT: EOMI, PERRLA. ABSENT: nystagmus Ear exam: PRESENT: normal external ear exam. ABSENT: bleeding Mouth exam: PRESENT: moist, neck supple Neck exam: PRESENT: full ROM. ABSENT: JVD Respiratory exam: PRESENT: symmetrical. ABSENT: accessory muscle use, rales, rhonchi, wheezes Cardiovascular exam: PRESENT: RRR, +S1, +S2 Pulses: PRESENT: normal radial pulses Vascular exam: PRESENT: normal capillary refill. ABSENT: pallor GI/Abdominal exam: PRESENT: soft, other - bilateral flank edema present. ABSENT : ascites, rebound, rigid Extremities exam: PRESENT: pedal edema. ABSENT: calf tenderness, joint swelling Musculoskeletal exam: PRESENT: ambulatory, full ROM Neurological exam: PRESENT: alert, oriented to person, oriented to place, oriented to time, other - slurred speech secondary to CVA hx Psychiatric exam: ABSENT: agitated, anxious, manic Focused psych exam: ABSENT: delusional, paranoid Skin exam: ABSENT: abrasion, dry, pallor Results Laboratory Results: 08/20/17 06:10 08/20/17 06:10 08/19/17 08/20/17 08/20/17 13:10 06:10 06:10 WBC 4.9 RBC 4.79 Hgb 13.0 L Hct 40.2 MCV 84 MCH 27.2 MCHC 32.4 RDW 16.8 H Plt Count 257 Sodium 143.0 Potassium 4.0 Chloride 98 Carbon Dioxide 35 H Anion Gap 10 BUN 27 H Creatinine 1.10 Est GFR ( Amer) > 60 Est GFR (Non-Af Amer) > 60 Glucose 118 H Calcium 8.9 Phosphorus 4.2 Albumin 3.6 Urine Color YELLOW Urine Appearance CLEAR Urine pH 5.0 Ur Specific [place] 1.014 Urine Protein 30 H Urine Glucose (UA) NEGATIVE Urine Ketones NEGATIVE Urine Blood NEGATIVE Urine Nitrite NEGATIVE Ur Leukocyte Esterase NEGATIVE Urine WBC (Auto) 0 Urine RBC (Auto) 1 07/31/17 07/31/17 07/31/17 05:24 10:51 17:25 Troponin I 0.064 0.055 0.065 08/13/17 08/13/17 08/14/17 15:50 21:00 02:58 Troponin I 0.045 0.052 0.046 Impressions: Chest X-Ray 07/30/17 18:24 IMPRESSION: Cardiomegaly without CHF. Cannot exclude a small left pleural effusion or limited left lower lobe infiltrate. Venous Doppler Study 08/11/17 00:00 IMPRESSION: NO EVIDENCE OF DVT OR SVT IN THE RIGHT LEG. Scrotum Ultrasound 08/12/17 00:00 IMPRESSION: Small left hydrocele. Small peripheral right testicular cyst. No acute abnormality. Transfer Plan - Disposition Transfer Plan: [facility] - Time Spent with Patient Time spent with patient: Greater than 30 Minutes Qualifiers - * PATEINT BEING DISCHARGED WITH ANY OF THE FOLLOWING DIAGNOSIS?: Stroke - Patient has hx of CVA, Heart Failure - systolic and diastolic HF VTE patient discharged on overlapping Therapy?: No Reason(s) for not prescribing Overlap Therapy:: Contraindicated Stroke Pt being discharged on Anti-thrombolytic therapy?: Yes Stroke Pt being discharged on Anti-coagulation therapy?: No Reason(s) for not prescribing Anti-coagulation therapy:: Contraindicated Stroke Pt being discharged on Statins?: No Reason(s) for not prescribing Statins therapy:: Drug declined by patient ME Pt being discharged on Aspirin therapy?: Yes ME Pt being discharged on Statins?: No Reason(s) for not prescribing Statin therapy:: Drug declined by patient ME Pt discharged ACEI/ARBS?: No Reason(s) for not prescribing ACEI/ARBS:: Contraindicated - recent DEANNA, resolving HF Pt being discharged on ACEI for LVEF less than 40%?: No Reason(s) for not prescribing ACEI:: Contraindicated HF Pt being discharged on ARBS for LVEF less than 40%?: No Reason(s) for not prescribing ARBS:: Contraindicated HF Pt with Afib discharged with Warfarin?: No Reason(s) for not prescribing Warfarin:: Contraindicated HF Pt discharged on evidence-based Beta Makenna:: Yes
[2017-08-20 11:52] VITALS: BP 103/80
[2017-08-20] MEDS: ACETAMINOPHEN 325 MG TABLET PO PRN (12:15)
== END 2017-08-20 16:05 | DRG 292 ==
LOC: ER 17:41 → EH 07-31 00:19 → 4W 07-31 02:45 → 4S 08-19 16:34
PROVIDERS: ADMIT Internal Medicine Geriatric Medicine; ATTEND Internal Medicine Geriatric Medicine
PROC: 5A09457 Assistance with Respiratory Ventilation, 24-96 Consecutive Hours, Continuous Positive Airway Pressure (ICD-10-PCS; principal; 2017-08-01)
PROC: 3E0F73Z Introduction of Anti-inflammatory into Respiratory Tract, Via Natural or Artificial Opening (ICD-10-PCS; 2017-08-02)
DX: I11.0 Hypertensive heart disease with heart failure (principal); N17.9 Acute kidney failure, unspecified; I69.354 Hemiplegia and hemiparesis following cerebral infarction affecting left non-dominant side; I50.43 Acute on chronic combined systolic (congestive) and diastolic (congestive) heart failure; E11.40 Type 2 diabetes mellitus with diabetic neuropathy, unspecified; N43.3 Hydrocele, unspecified; G47.33 Obstructive sleep apnea (adult) (pediatric); R33.9 Retention of urine, unspecified; W18.30XA Fall on same level, unspecified, initial encounter; Y92.019 Unspecified place in single-family (private) house as the place of occurrence of the external cause; E78.5 Hyperlipidemia, unspecified; R06.03 Acute respiratory distress; E66.01 Morbid (severe) obesity due to excess calories; K59.09 Other constipation; Z68.39 Body mass index [BMI] 39.0-39.9, adult; I25.10 Atherosclerotic heart disease of native coronary artery without angina pectoris; I69.322 Dysarthria following cerebral infarction; J44.9 Chronic obstructive pulmonary disease, unspecified; K21.9 Gastro-esophageal reflux disease without esophagitis; M19.90 Unspecified osteoarthritis, unspecified site; F43.10 Post-traumatic stress disorder, unspecified; D64.9 Anemia, unspecified; I45.81 Long QT syndrome; E11.42 Type 2 diabetes mellitus with diabetic polyneuropathy; F41.9 Anxiety disorder, unspecified; I25.2 Old myocardial infarction; Z90.49 Acquired absence of other specified parts of digestive tract; Z79.899 Other long term (current) drug therapy; Z88.8 Allergy status to other drugs, medicaments and biological substances; Z95.810 Presence of automatic (implantable) cardiac defibrillator; Z95.1 Presence of aortocoronary bypass graft; Z95.5 Presence of coronary angioplasty implant and graft; Z82.3 Family history of stroke; Z83.3 Family history of diabetes mellitus; Z82.49 Family history of ischemic heart disease and other diseases of the circulatory system; Z83.49 Family history of other endocrine, nutritional and metabolic diseases
CPT/HCPCS: 36415; 36600; 71046; 76870; 80048; 80053; 80069; 81001; 82272; 82803; 82962; 83735; 83880; 84484; 85025; 85027; 93005; 93010; 93306; 93971; 93976; 94640; 94660; 99285; G8978-GP; G8979-GP; J1650; J1815; J1940; J2405; J3490; J7030; J7620

== ENCOUNTER 2017-09-11 20:32 | Emergency (ER) | payer MEDICARE ==
[2017-09-11] MEDS ORDERED: ASPIRIN 81 MG TABLET, CHEWABLE PO ONE (21:08)
--- NOTE | 2017-09-11 22:01 | RADIOLOGY REPORT (SQ) ---
EXAM DESCRIPTION: CHEST SINGLE VIEW COMPLETED DATE/TIME: 09/11/2017 9:43 pm REASON FOR STUDY: cp COMPARISON: 07/30/2017 EXAM PARAMETERS: NUMBER OF VIEWS: One view. TECHNIQUE: Single frontal radiographic view of the chest acquired. RADIATION DOSE: NA LIMITATIONS: None. FINDINGS: LUNGS AND PLEURA: No opacities, masses or pneumothorax. No pleural effusion. MEDIASTINUM AND HILAR STRUCTURES: No masses. Contour normal. HEART AND VASCULAR STRUCTURES: Cardiomegaly with no failure. BONES: No acute findings. HARDWARE: Pacemaker/defibrillator. OTHER: No other significant finding. IMPRESSION: Cardiomegaly without CHF. TECHNICAL DOCUMENTATION: JOB ID: [id number] 1998 [employer]- All Rights Reserved Reading location - IP/workstation name: [email or web address]
[2017-09-11 22:27] LABS: ABSOLUTE BASOPHILS # (AUTO) 0.1 10^3/uL (0.0-0.2); ABSOLUTE EOSINOPHILS # (AUTO) 0.1 10^3/uL (0.0-0.6); ABSOLUTE LYMPHOCYTES (AUTO) 1.3 10^3/uL (0.5-4.7); ABSOLUTE MONOCYTES (AUTO) 1.4 10^3/uL (0.1-1.4); ABSOLUTE NEUT (AUTO) 5.5 10^3/uL (1.7-8.2); BASOPHILS % (AUTO) 0.8 % (0-2); EOSINOPHILS % (AUTO) 1.2 % (0-6); HEMATOCRIT 44.7 % (37.9-51.0); HEMOGLOBIN 14.2 g/dL (13.5-17.0); MEAN CORPUSCULAR HEMOGLOBIN 26.2 pg (27.0-33.4); MEAN CORPUSCULAR HGB CONC 31.6 g/dL (32.0-36.0); MEAN CORPUSCULAR VOLUME 83 fl (80-97); MONOCYTES % (AUTO) 16.8 % (3-13); PLATELET COUNT 215 10^3/uL (150-450); RED CELL DISTRIBUTION WIDTH 16.9 % (11.5-14.0); SEGMENTED NEUTROPHILS % (AUTO) 65.2 % (42-78); TOTAL CELLS COUNTED % (AUTO) 100 %; WHITE BLOOD COUNT 8.4 10^3/uL (4.0-10.5)
[2017-09-11 22:54] LABS: ALANINE AMINOTRANSFERASE 36 U/L (21-72); ALKALINE PHOSPHATASE 84 U/L (38-126); ANION GAP 11 (5-19); ASPARTATE AMINO TRANSFERASE 48 U/L (17-59); BILIRUBIN,DIRECT 0.5 mg/dL (0.0-0.4); BILIRUBIN,TOTAL 0.9 mg/dL (0.2-1.3); BLOOD UREA NITROGEN 48 mg/dL (7-20); CALCIUM 9.6 mg/dL (8.4-10.2); CARBON DIOXIDE 32 mmol/L (22-30); CHLORIDE 101 mmol/L (98-107); CREATINE KINASE 73 U/L (55-170); GLUCOSE 107 mg/dL (75-110); POTASSIUM 4.3 mmol/L (3.6-5.0); SODIUM 143.5 mmol/L (137-145); TOTAL PROTEIN 6.8 g/dL (6.3-8.2)
--- NOTE | 2017-09-11 23:01 | EKG REPORT ---
SEVERITY:- ABNORMAL ECG - SINUS TACHYCARDIA VENTRICULAR PREMATURE COMPLEX PROBABLE LEFT ATRIAL ABNORMALITY CONSIDER RIGHT VENTRICULAR HYPERTROPHY BORDERLINE INFERIOR Q WAVES CONSIDER ANTERIOR INFARCT BORDERLINE T ABNORMALITIES, INFERIOR LEADS : Confirmed by: Pooja Patel 11-Sep-2017 23:00:27
[2017-09-11 23:05] LABS: CREATINE KINASE MB 1.61 ng/mL (<4.55)
[2017-09-11 23:11] LABS: TROPONIN I 4.51 ng/mL
[2017-09-11] MEDS ORDERED: ENOXAPARIN SODIUM INJ 120 MG/0.8 ML DISP.SYRIN SUBCUT SCH (23:30)
--- NOTE | 2017-09-11 23:39 | ER Document Report ---
ED Cardiac - General Chief Complaint: Chest Pain Stated Complaint: FALL,CHEST PAIN Time Seen by Provider: 09/11/17 23:26 Notes: Patient is a 61-year-old male, past medical history CHF, DM2, hypertension, presents with chest pain earlier in the day that has resolved. He also also having some mild shortness of breath, which has also resolved. Patient is also concerned because he has not had a bowel movement for 5 days. He denies pain, increased leg swelling, fevers, cough, nausea, vomiting, headache,, numbness, tingling or back pain. TRAVEL OUTSIDE OF THE [place] IN LAST 30 DAYS: No - Related Data Allergies/Adverse Reactions: captopril [From Capoten] Allergy (Severe, Verified 07/30/17 17:44) Angioedema atorvastatin calcium [From Lipitor] Allergy (Intermediate, Verified 07/30/17 17: 44) Angioedema clopidogrel [From Plavix] Allergy (Verified 07/30/17 17:44) rosuvastatin [From Crestor] Allergy (Verified 07/30/17 17:44) simvastatin [From Zocor] Allergy (Verified 07/30/17 17:44) Angioedema Past Medical History - General Information source: Patient - Social History Smoking Status: Never Smoker Chew tobacco use (# tins/day): No Frequency of alcohol use: None Drug Abuse: None Family History: Reviewed & Not Pertinent, CAD, DM, Hypertension, Thyroid Disfunction Patient has suicidal ideation: No Patient has homicidal ideation: No - Past Medical History Cardiac Medical History: Reports: Hx Congestive Heart Failure, Hx Coronary Artery Disease, Hx Heart Attack - 2008, Hx Hypercholesterolemia, Hx Hypertension Pulmonary Medical History: Reports: Hx Asthma, Hx Bronchitis, Hx COPD, Hx Sleep Apnea Neurological Medical History: Reports: Hx Cerebrovascular Accident - x 2. Denies: Hx Seizures Endocrine Medical History: Reports: Hx Diabetes Mellitus Type 1, Hx Diabetes Mellitus Type 2 Renal/ Medical History: Denies: Hx Peritoneal Dialysis Malignancy Medical History: GI Medical History: Reports: Hx Diverticulitis, Hx Gastroesophageal Reflux Disease Musculoskeltal Medical History: Reports Hx Arthritis, Reports Hx Musculoskeletal Deformity, Reports Hx Musculoskeletal Trauma Psychiatric Medical History: Reports: Hx Anxiety, Hx Post Traumatic Stress Disorder Denies: Hx Depression Infectious Medical History: Past Surgical History: Reports: Hx Abdominal Surgery - for diverticulitis, Hx Bowel Surgery - Colon resection due to diverticulitis, Hx Cardiac Catheterization, Hx Cardiac Surgery - 1984, ICD placement 2015, Hx Coronary Artery Bypass Graft, Hx Coronary Stent - 1984, Hx Thyroid Surgery, Other - AICD - Immunizations Immunizations up to date: Yes Hx Diphtheria, Pertussis, Tetanus Vaccination: Yes Hx Pneumococcal Vaccination: 05/26/10 Review of Systems - Review of Systems Notes: REVIEW OF SYSTEMS: CONSTITUTIONAL: -fevers, -chills EENT: -eye pain, -difficulty swallowing, -nasal congestion CARDIOVASCULAR: +chest pain, -syncope. RESPIRATORY: -cough, -SOB GASTROINTESTINAL: -abdominal pain, +constipation, -nausea, -vomiting, -diarrhea GENITOURINARY: -dysuria, -hematuria MUSCULOSKELETAL: -back pain, -neck pain SKIN: -rash or skin lesions. HEMATOLOGIC: -easy bruising or bleeding. LYMPHATIC: -swollen, enlarged glands. NEUROLOGICAL: -altered mental status or loss of consciousness, -headache, - neurologic symptoms PSYCHIATRIC: -anxiety, -depression. ALL OTHER SYSTEMS REVIEWED AND NEGATIVE. Physical Exam - Vital signs Vitals: Temp Pulse BP Pulse Ox 98.1 F 101 H 100/73 94 09/11/17 20:44 09/11/17 20:44 09/11/17 20:44 09/11/17 20:44 - Notes Notes: PHYSICAL EXAMINATION: GENERAL: Well-appearing, well-nourished and in no acute distress. HEAD: Atraumatic, normocephalic. EYES: Pupils equal round and reactive to light, extraocular movements intact, sclera anicteric, conjunctiva are normal. ENT: nares patent, oropharynx clear without exudates. Moist mucous membranes. NECK: Normal range of motion, supple without lymphadenopathy LUNGS: Breath sounds clear to auscultation bilaterally and equal. No wheezes rales or rhonchi. HEART: Regular rate and rhythm without murmurs ABDOMEN: Soft, nontender, normoactive bowel sounds. No guarding, no rebound. No masses appreciated. EXTREMITIES: Normal range of motion, no pitting or edema. No cyanosis. NEUROLOGICAL: Cranial nerves grossly intact. Stuttering speech, normal gait. Normal sensory and motor exams. PSYCH: Normal mood, normal affect. SKIN: Warm, Dry, normal turgor, no rashes or lesions noted. Course - Re-evaluation Re-evalutation: 09/11/17 23:34 Pt chest pain free. Troponin is 4.5, but EKG is unchanged and does not show a STEMI. Patient requires transfer to facility with label operator. ASA and Lovenox provided to patient. Spoke to [facility] transfer center and awaiting callback. 09/11/17 23:[address] Owens (Hospitalist) and he has accepted patient. Transfer center said hospital is at capacity, but to call back once next troponin is back. Patient stable at this time. 09/12/17 01:42 Transport in ED and patient is stable for transport. Chest pain- free. - Vital Signs Vital signs: Temp Pulse Resp BP Pulse Ox 98.1 F 101 H 30 H 111/58 L 94 09/11/17 20:44 09/11/17 20:44 09/12/17 01:24 09/12/17 01:24 09/12/17 01:24 - Laboratory Result Diagrams: 09/11/17 22:15 09/11/17 22:15 Laboratory results interpreted by me: 09/11/17 09/11/17 22:15 22:15 MCH 26.2 L MCHC 31.6 L RDW 16.9 H Monocytes % 16.8 H Carbon Dioxide 32 H BUN 48 H Creatinine 1.63 H Est GFR ( Amer) 52 L Est GFR (Non-Af Amer) 43 L Direct Bilirubin 0.5 H - Diagnostic Test Radiology reviewed: Image reviewed, Reports reviewed Radiology results interpreted by me: CXR: Cardiomegaly without evidence of failure. - EKG Interpretation by Me EKG shows normal: Sinus rhythm Rate: Tachycardia When compared to previous EKG there are: No significant change Additional EKG results interpreted by me: No STEMI Discharge - Discharge Clinical Impression: NSTEMI (non-ST elevated myocardial infarction) Chest pain Qualifiers: Chest pain type: unspecified Qualified Code(s): R07.9 - Chest pain, unspecified Condition: Stable Disposition: [facility]
[2017-09-11] MEDS ORDERED: ENOXAPARIN SODIUM INJ 120 MG/0.8 ML DISP.SYRIN SUBCUT ONE (23:45)
[2017-09-11] MEDS ORDERED: NORMAL SALINE 500 ML IV ONE (23:46)
[2017-09-12 00:08] VITALS: BP 111/58
[2017-09-12] MEDS ORDERED: MAGNESIUM CITRATE 296 ML BOTTLE PO ONE (01:04)
[2017-09-12] MEDS ORDERED: ENOXAPARIN SODIUM INJ 120 MG/0.8 ML DISP.SYRIN SUBCUT SCH (10:00)
== END 2017-09-12 01:50 | disposition short-term general hospital (02) ==
LOC: ER 20:32
DX: I21.4 Non-ST elevation (NSTEMI) myocardial infarction (principal); R07.9 Chest pain, unspecified; R06.02 Shortness of breath; E11.9 Type 2 diabetes mellitus without complications; I11.0 Hypertensive heart disease with heart failure; Z95.810 Presence of automatic (implantable) cardiac defibrillator
CPT/HCPCS: 93005; 99285; 96372; 96360; 36415; 82553; 82550; 85025; 80053; 84484; 71045; 93010; A9270; J1650; J7040

== ENCOUNTER 2017-09-25 13:48 | Inpatient (IN) | payer MEDICARE ==
--- NOTE | 2017-09-25 14:32 | ER Document Report ---
ED Medical Screen (RME) - General Chief Complaint: Swelling Stated Complaint: SWELLING Time Seen by Provider: 09/25/17 14:23 Notes: RAPID MEDICAL EVALUATION DISCLOSURE I have seen this patient as part of a Rapid Medical Evaluation and, if applicable, placed any initially appropriate orders. The patient will be seen and fully evaluated, including a full history and physical exam, by a provider ( in Main ED or Fast Track) when a room becomes available. 61-year-old male PMH recent MD (sent to [facility] and recently discharged) here with complaints of bilateral leg and abdominal wall swelling ongoing for the past few days and as of earlier today left upper extremity swelling. He denies having any chest pain or shortness of breath. He has not taken his diuretic today because he has been running errands but has been taking them otherwise and has not missed any doses. He reports urinating his usual amount. EXAM Minimally tachycardic CTAB 2+ pitting edema BLEs 1+ pitting edema abdomen minimal edema LUE TRAVEL OUTSIDE OF THE [place] IN LAST 30 DAYS: No - Related Data Allergies/Adverse Reactions: captopril [From Capoten] Allergy (Severe, Verified 07/30/17 17:44) Angioedema atorvastatin calcium [From Lipitor] Allergy (Intermediate, Verified 07/30/17 17: 44) Angioedema clopidogrel [From Plavix] Allergy (Verified 07/30/17 17:44) rosuvastatin [From Crestor] Allergy (Verified 07/30/17 17:44) simvastatin [From Zocor] Allergy (Verified 07/30/17 17:44) Angioedema Past Medical History - Social History Family history: None - Past Medical History Cardiac Medical History: Reports: Hx Congestive Heart Failure, Hx Coronary Artery Disease, Hx Heart Attack - 2009, Hx Hypercholesterolemia, Hx Hypertension Pulmonary Medical History: Reports: Hx Asthma, Hx Bronchitis, Hx COPD, Hx Sleep Apnea Neurological Medical History: Reports: Hx Cerebrovascular Accident - x 2. Denies: Hx Seizures Endocrine Medical History: Reports: Hx Diabetes Mellitus Type 1, Hx Diabetes Mellitus Type 2 Renal/ Medical History: Denies: Hx Peritoneal Dialysis Malignancy Medical History: GI Medical History: Reports: Hx Diverticulitis, Hx Gastroesophageal Reflux Disease Musculoskeltal Medical History: Reports Hx Arthritis, Reports Hx Musculoskeletal Deformity, Reports Hx Musculoskeletal Trauma Psychiatric Medical History: Reports: Hx Anxiety, Hx Post Traumatic Stress Disorder Denies: Hx Depression Infectious Medical History: Past Surgical History: Reports: Hx Abdominal Surgery - for diverticulitis, Hx Bowel Surgery - Colon resection due to diverticulitis, Hx Cardiac Catheterization, Hx Cardiac Surgery - 1984, ICD placement 2015, Hx Coronary Artery Bypass Graft, Hx Coronary Stent - 1984, Hx Thyroid Surgery, Other - AICD - Immunizations Immunizations up to date: Yes Hx Diphtheria, Pertussis, Tetanus Vaccination: Yes History of Influenza Vaccine for 02/2017 - 07/2017 Season: Refused Physical Exam - Vital signs Vitals: Temp Pulse Resp BP Pulse Ox 97.8 F 112 H 20 107/74 94 09/25/17 13:55 09/25/17 13:55 09/25/17 13:55 09/25/17 13:55 09/25/17 13:55 Course - Vital Signs Vital signs: Temp Pulse Resp BP Pulse Ox 97.8 F 112 H 20 107/74 94 09/25/17 13:55 09/25/17 13:55 09/25/17 13:55 09/25/17 13:55 09/25/17 13:55
[2017-09-25 15:02] LABS: ABSOLUTE BASOPHILS # (AUTO) 0.1 10^3/uL (0.0-0.2); ABSOLUTE EOSINOPHILS # (AUTO) 0.1 10^3/uL (0.0-0.6); ABSOLUTE MONOCYTES (AUTO) 0.7 10^3/uL (0.1-1.4); ABSOLUTE NEUT (AUTO) 3.8 10^3/uL (1.7-8.2); BASOPHILS % (AUTO) 0.9 % (0-2); EOSINOPHILS % (AUTO) 2.1 % (0-6); HEMATOCRIT 43.4 % (37.9-51.0); LYMPHOCYTES % (AUTO) 17.7 % (13-45); MEAN CORPUSCULAR HEMOGLOBIN 26.1 pg (27.0-33.4); MEAN CORPUSCULAR HGB CONC 32.3 g/dL (32.0-36.0); MEAN CORPUSCULAR VOLUME 81 fl (80-97); MONOCYTES % (AUTO) 12.6 % (3-13); PLATELET COUNT 248 10^3/uL (150-450); RED BLOOD COUNT 5.37 10^6/uL (4.35-5.55); RED CELL DISTRIBUTION WIDTH 17.4 % (11.5-14.0); SEGMENTED NEUTROPHILS % (AUTO) 66.7 % (42-78); TOTAL CELLS COUNTED % (AUTO) 100 %; WHITE BLOOD COUNT 5.7 10^3/uL (4.0-10.5)
[2017-09-25 15:19] LABS: ALANINE AMINOTRANSFERASE 24 U/L (21-72); ALBUMIN 3.8 g/dL (3.5-5.0); ALKALINE PHOSPHATASE 84 U/L (38-126); ANION GAP 13 (5-19); ASPARTATE AMINO TRANSFERASE 27 U/L (17-59); BILIRUBIN,DIRECT 0.4 mg/dL (0.0-0.4); BILIRUBIN,TOTAL 0.8 mg/dL (0.2-1.3); BLOOD UREA NITROGEN 40 mg/dL (7-20); CALCIUM 9.1 mg/dL (8.4-10.2); CARBON DIOXIDE 31 mmol/L (22-30); CHLORIDE 97 mmol/L (98-107); GLUCOSE 167 mg/dL (75-110); POTASSIUM 4.3 mmol/L (3.6-5.0); SODIUM 141.3 mmol/L (137-145); TOTAL PROTEIN 6.6 g/dL (6.3-8.2)
--- NOTE | 2017-09-25 15:22 | ER Document Report ---
ED General - General Chief Complaint: Swelling Stated Complaint: SWELLING Time Seen by Provider: 09/25/17 14:23 Notes: The patient is a 61-year-old male past medical history CAD, CHF, presents with bilateral lower extremity swelling for the past few days. Takes Bumex daily, but did not take his dose this morning because he was running errands. He thinks the dose is 1 mg. 2 weeks ago, he was transferred to [facility] for an NSTEMI, but the patient said he did not receive any stents. He denies shortness of breath, syncope, nausea, vomiting, leg pain, numbness, tingling, chest pain, fevers or injury. TRAVEL OUTSIDE OF THE [place] IN LAST 30 DAYS: No - Related Data Allergies/Adverse Reactions: captopril [From Capoten] Allergy (Severe, Verified 07/30/17 17:44) Angioedema atorvastatin calcium [From Lipitor] Allergy (Intermediate, Verified 07/30/17 17: 44) Angioedema clopidogrel [From Plavix] Allergy (Verified 07/30/17 17:44) rosuvastatin [From Crestor] Allergy (Verified 07/30/17 17:44) simvastatin [From Zocor] Allergy (Verified 07/30/17 17:44) Angioedema Past Medical History - General Information source: Patient - Social History Smoking Status: Never Smoker Chew tobacco use (# tins/day): No Frequency of alcohol use: None Drug Abuse: None Family History: Reviewed & Not Pertinent, CAD, DM, Hypertension, Thyroid Disfunction Patient has suicidal ideation: No Patient has homicidal ideation: No - Past Medical History Cardiac Medical History: Reports: Hx Congestive Heart Failure, Hx Coronary Artery Disease, Hx Heart Attack - 2008, Hx Hypercholesterolemia, Hx Hypertension Pulmonary Medical History: Reports: Hx Asthma, Hx Bronchitis, Hx COPD, Hx Sleep Apnea Neurological Medical History: Reports: Hx Cerebrovascular Accident - x 2. Denies: Hx Seizures Endocrine Medical History: Reports: Hx Diabetes Mellitus Type 1, Hx Diabetes Mellitus Type 2 Renal/ Medical History: Denies: Hx Peritoneal Dialysis Malignancy Medical History: GI Medical History: Reports: Hx Diverticulitis, Hx Gastroesophageal Reflux Disease Musculoskeltal Medical History: Reports Hx Arthritis, Reports Hx Musculoskeletal Deformity, Reports Hx Musculoskeletal Trauma Psychiatric Medical History: Reports: Hx Anxiety, Hx Post Traumatic Stress Disorder Denies: Hx Depression Infectious Medical History: Past Surgical History: Reports: Hx Abdominal Surgery - for diverticulitis, Hx Bowel Surgery - Colon resection due to diverticulitis, Hx Cardiac Catheterization, Hx Cardiac Surgery - 1984, ICD placement 2015, Hx Coronary Artery Bypass Graft, Hx Coronary Stent - 1984, Hx Thyroid Surgery, Other - AICD - Immunizations Immunizations up to date: Yes Hx Diphtheria, Pertussis, Tetanus Vaccination: Yes Hx Pneumococcal Vaccination: 05/26/10 Review of Systems - Review of Systems Notes: REVIEW OF SYSTEMS: CONSTITUTIONAL: -fevers, -chills EENT: -eye pain, -difficulty swallowing, -nasal congestion CARDIOVASCULAR: -chest pain, -syncope. RESPIRATORY: -cough, -SOB GASTROINTESTINAL: -abdominal pain, -nausea, -vomiting, -diarrhea GENITOURINARY: -dysuria, -hematuria MUSCULOSKELETAL: +lower extremity swelling, -back pain, -neck pain SKIN: -rash or skin lesions. HEMATOLOGIC: -easy bruising or bleeding. LYMPHATIC: -swollen, enlarged glands. NEUROLOGICAL: -altered mental status or loss of consciousness, -headache, - neurologic symptoms PSYCHIATRIC: -anxiety, -depression. ALL OTHER SYSTEMS REVIEWED AND NEGATIVE. Physical Exam - Vital signs Vitals: Temp Pulse Resp BP Pulse Ox 97.8 F 112 H 20 107/74 94 09/25/17 13:55 09/25/17 13:55 09/25/17 13:55 09/25/17 13:55 09/25/17 13:55 - Notes Notes: PHYSICAL EXAMINATION: GENERAL: Well-appearing, well-nourished and in no acute distress. HEAD: Atraumatic, normocephalic. EYES: Pupils equal round and reactive to light, extraocular movements intact, sclera anicteric, conjunctiva are normal. ENT: nares patent, oropharynx clear without exudates. Moist mucous membranes. NECK: Normal range of motion, supple without lymphadenopathy LUNGS: Breath sounds clear to auscultation bilaterally and equal. No wheezes rales or rhonchi. HEART: Mild tachycardia, regular rhythm. ABDOMEN: Soft, nontender, normoactive bowel sounds. No guarding, no rebound. No masses appreciated. EXTREMITIES: 2+ pitting edema up to knees in B/L lower extremities. Normal range of motion. No cyanosis. NEUROLOGICAL: Cranial nerves grossly intact. Normal gait. Normal sensory and motor exams. PSYCH: Normal mood, normal affect. SKIN: Warm, Dry, normal turgor, no rashes or lesions noted. Course - Re-evaluation Re-evalutation: Patient with tachycardia, mild tachypnea and shortness of breath with chest pain when he takes a deep breath. He was recently hospitalized for a NSTEMI at [facility]. Patient said he did not require any stents. Patient is moderate to high risk for a PE, so a d-dimer was sent, which was elevated. The CTA was completed which showed a limited PE in the right pulmonary artery. He does remain slightly tachycardic and tachypneic, so he needs to be admitted for initiation of anticoagulation and further evaluation and treatment. His first troponin is 0.164, but no EKG changes and no active chest pain. His previous results were in the 3 and 4 range, so this is most likely decreasing from his prior values. [facility] Lovenox started. 09/25/17 18:[address] Schwarz for admission and she said that Dr. Gómez is next up for an admission. Spoke to Dr. Gómez and he is with a patient, but will call back. 09/25/17 18:[address] Gómez and he will admit patient as Inpatient to [facility]. - Vital Signs Vital signs: Temp Pulse Resp BP Pulse Ox 97.8 F 112 H 30 H 109/80 99 09/25/17 13:55 09/25/17 13:55 09/25/17 17:04 09/25/17 17:04 09/25/17 17:04 - Laboratory Result Diagrams: 09/25/17 14:45 09/25/17 14:45 Laboratory results interpreted by me: 09/25/17 09/25/17 09/25/17 14:45 14:45 14:45 MCH 26.1 L RDW 17.4 H D-Dimer Chloride 97 L Carbon Dioxide 31 H BUN 40 H Creatinine 1.27 H Est GFR (Non-Af Amer) 57 L Glucose 167 H NT-Pro-B Natriuret Pep 3910 H 09/25/17 14:45 MCH RDW D-Dimer 3.05 H Chloride Carbon Dioxide BUN Creatinine Est GFR (Non-Af Amer) Glucose NT-Pro-B Natriuret Pep - Diagnostic Test Radiology reviewed: Image reviewed, Reports reviewed Radiology results interpreted by me: CXR: Stable marked cardiomegaly CTA Chest: 1. There is limited pulmonary embolus in the right upper lobe pulmonary artery. 2. Small pleural effusions. 3. Cardiomegaly. 4. Enlargement of the left lobe of the thyroid. - EKG Interpretation by Me EKG shows normal: Sinus rhythm, [place], Intervals, QRS Complexes, ST-T Waves Rate: Tachycardia When compared to previous EKG there are: No significant change Discharge - Discharge Clinical Impression: Pulmonary embolism Qualifiers: Pulmonary embolism type: other Chronicity: acute Acute cor pulmonale presence: without acute cor pulmonale Qualified Code(s): I26.99 - Other pulmonary embolism without acute cor pulmonale Condition: Stable Disposition: ADMITTED INPATIENT Admitting Provider: Hospitalist - [facility] Admitted: [facility]
[2017-09-25] MEDS ORDERED: BUMETANIDE INJ/PF 1 MG/4 ML SDV IV ONE (15:30)
[2017-09-25 15:32] LABS: TROPONIN I 0.164 ng/mL
--- NOTE | 2017-09-25 16:31 | RADIOLOGY REPORT (SQ) ---
EXAM DESCRIPTION: CHEST SINGLE VIEW COMPLETED DATE/TIME: 09/25/2017 4:10 pm REASON FOR STUDY: ble swelling; eval for edema COMPARISON: Chest films 09/11/2017, 07/30/2017 EXAM PARAMETERS: NUMBER OF VIEWS: One view. TECHNIQUE: Single frontal radiographic view of the chest acquired. RADIATION DOSE: NA LIMITATIONS: None. FINDINGS: LUNGS AND PLEURA: No opacities, masses or pneumothorax. No pleural effusion. MEDIASTINUM AND HILAR STRUCTURES: No masses. Contour normal. HEART AND VASCULAR STRUCTURES: Stable marked cardiomegaly. BONES: No acute findings. HARDWARE: Unchanged left single lead pacemaker OTHER: No other significant finding. IMPRESSION: Stable marked cardiomegaly TECHNICAL DOCUMENTATION: JOB ID: [id number] [employer]- All Rights Reserved Reading location - IP/workstation name: [email or web address]
--- NOTE | 2017-09-25 17:29 | RADIOLOGY REPORT (SQ) ---
EXAM DESCRIPTION: CTA CHEST COMPLETED DATE/TIME: 09/25/2017 5:02 pm REASON FOR STUDY: tachycardia, elevated d-dimer, SOB COMPARISON: Chest x-ray 09/25/2017 TECHNIQUE: CT scan of the chest performed using helical scanning technique with dynamic intravenous contrast injection. Images reviewed with lung, soft tissue and bone windows. Reconstructed coronal and sagittal MPR images reviewed. Additional 3 dimensional post-processing performed to develop Maximal Intensity Projection images (TN P). All images stored on PACS. All CT scanners at this facility use dose modulation, iterative reconstruction, and/or weight based d osing when appropriate to reduce radiation dose to as low as reasonably achievable (ALARA). [facility]: Dose Right [facility]: CareDose [facility]: Dose Right [facility]: Teradose 4D [facility]: 7billionideas CONTRAST TYPE AND DOSE: contrast/concentration: Isovue 370.00 mg/ml; Total Contrast Delivered: 75.0 ml; Total Saline Delivered: 50.0 ml Contrast bolus optimized for the pulmonary arteries. Not diagnostic for the aorta. RENAL FUNCTION: BUN 40 creatinine 1.27 RADIATION DOSE: CT Rad equipment meets quality standard of care and radiation dose reduction techniq ues were employed. CTDIvol: 33.0 - 39.7 mGy. DLP: 1270 mGy-cm. . LIMITATIONS: None. FINDINGS: LUNGS AND PLEURA: There is small pleural effusions bilaterally, right more than left. The re is mild subsegmental atelectasis in the lower lobes. AORTA AND GREAT VESSELS: No aneurysm. Contrast bolus not optimized for the aorta. HEART: Cardiomegaly. No pericardial effusion. No significant coronary artery calcifications. No sig nificant coronary artery calcifications. PULMONARY ARTERIES: Limited thrombus is present in right upper lobe pulmonary artery. See images 47 through 50 of series 601. See images 38 through 41 series 3. HILAR AND MEDIASTINAL STRUCTURES: No identified masses or abnormal nodes. HARDWARE: Pacemaker. UPPER ABDOMEN: No significant findings. Limited exam. THYROID AND OTHER SOFT TISSUES: The left lobe of the thyroid is prominent. BONES: No acute or significant finding. 3D MIPS: Confirm above findings. OTHER: No other significant finding. IMPRESSION: 1. There is limited pulmonary embolus in the right upper lobe pulmonary artery. 2. Small pleural effusions. 3. Cardiomegaly. 4. Enlargement of the left lobe of the thyroid. COMMENT: Quality ID # [id number]: Final reports with documentation of one or more dose reduction techniques (e.g., Automated exposure control, adjustment of the mA and/or kV according to patient size, use of iterative reconstruction technique) TECHNICAL DOCUMENTATION: JOB ID: [id number] [employer]- All Rights Reserved Reading location - IP/workstation name: [email or web address]
[2017-09-25] MEDS ORDERED: ENOXAPARIN SODIUM INJ 120 MG/0.8 ML DISP.SYRIN SUBCUT SCH (18:15)
--- NOTE | 2017-09-25 20:22 | PDOC H&P ---
History of Present Illness Admission Date/PCP: 09/25/17 18:31 Patient complains of: Shortness of breath, chest pain with breathing History of Present Illness: ALEX CRUZMAN is a 61 year old male history of CVA, CHF echo 07/2017 with EF 25-30%, history of CAD with recent hospitalization at [facility] for non-STEMI about 2 weeks ago, but patient reports he did not receive any stent. He now presented to the ED with complaint of chest pain worse with deep breaths. He admits to some shortness of breath. Evaluation in the ED significant for elevated d-dimer at 3.05. Follow-up chest CTA revealed pulmonary embolism right upper lobe pulmonary artery. Patient started on Lovenox. He had tachypnea at 30, tachycardic at 112. He was referred for admission for further evaluation and management. Patient admits to sometimes noncompliance with his diuretics medications because he does not want to have to urinate all the time when he is out and about. Currently denies fever or chills, no orthopnea or PND. He does have lower extremity swellings. Has dry cough. Past Medical History Cardiac Medical History: Reports: Congestive Heart Failure, Coronary Artery Disease, Myocardial Infarction - 2008, Hyperlipidema, Hypertension Pulmonary Medical History: Reports: Asthma, Bronchitis, Chronic Obstructive Pulmonary Disease (COPD), Sleep Apnea Neurological Medical History: Denies: Seizures Endocrine Medical History: Reports: Diabetes Mellitus Type 1, Diabetes Mellitus Type 2 Renal/ Medical History: Malignancy Medical History: Denies: Breast Cancer, Cervical Cancer, Ovarian Cancer GI Medical History: Reports: Diverticulitis, Gastroesophageal Reflux Disease Musculoskeltal Medical History: Reports: Arthritis Psychiatric Medical History: Reports: Post Traumatic Stress Disorder Denies: Depression Hematology: Reports: Anemia Denies: Hemophilia, Sickle Cell Disease - sickle cell trait Infectious Medical History: Past Surgical History Past Surgical History: Reports: Cardiac Catheterization, Coronary Artery Bypass Graft, Coronary Stent - 1984, Other - AICD Social History Smoking Status: Never Smoker Frequency of Alcohol Use: None Hx Recreational Drug Use: No Drugs: None Hx Prescription Drug Abuse: No Family History Family History: Reviewed & Not Pertinent, CAD, DM, Hypertension, Thyroid Disfunction Parental Family History Reviewed: Yes Children Family History Reviewed: Yes Sibling(s) Family History Reviewed.: Yes Medication/Allergy Home Medications: Albuterol Sulfate [Proair HFA] 2 puff IH Q6HP PRN 08/01/17 Ascorbic Acid [Vitamin C 500 mg Tablet] 500 mg PO DAILY 08/01/17 Aspirin [Aspirin 81 mg Chewable Tablet] 81 mg PO DAILY 08/01/17 Clopidogrel Bisulfate [Plavix 75 mg Tablet] 75 mg PO DAILY 08/01/17 Cyclosporine [Restasis Droperette] 1 each OU BID 08/01/17 Docusate Sodium [Colace 100 mg Capsule] 200 mg PO DAILY 08/01/17 Ferrous Sulfate [Feosol 325 mg Tablet] 325 mg PO MEALS 08/01/17 Lanolin Alcohol/Mo/W.pet/[place] [Eucerin Creme] 1 applic TP BIDP PRN 08/01/17 Metformin HCl [Glucophage 500 mg Tablet] 500 mg PO BIDBS 08/01/17 Vernal-3 Acid Ethyl Esters [Lovaza 1 gm Capsule] 2 gm PO BID 08/01/17 Omeprazole 20 mg PO Q6AM 08/01/17 Tamsulosin HCl [Flomax] 0.4 mg PO QPM 08/01/17 Acetaminophen [Tylenol 325 mg Tablet] 650 mg PO Q4HP PRN #30 tablet 08/20/17 Nitroglycerin [Nitrostat 0.4 mg (1/150 Gr) Tabs 25/Bottle] 1 tab SL Q5MP PRN # 10 bottle 08/20/17 Budesonide/Formoterol Fumarate [Symbicort Hfa 160-4.5 Mcg Inhaler 6 gm] 2 puff IH Q12 09/25/17 Bumetanide [Bumex 1 mg Tablet] 2 mg PO BID 09/25/17 Carvedilol [Coreg 12.5 mg Tablet] 12.5 mg PO Q12 09/25/17 Gabapentin [Neurontin 100 mg Capsule] 100 mg PO Q8 09/25/17 Lactulose [Cephulac 20 gm/30 ml Syrup UD Cup] 10 ml PO QPM 09/25/17 Allergies/Adverse Reactions: captopril [From Capoten] Allergy (Severe, Verified 07/30/17 17:44) Angioedema atorvastatin calcium [From Lipitor] Allergy (Intermediate, Verified 07/30/17 17: 44) Angioedema clopidogrel [From Plavix] Allergy (Verified 07/30/17 17:44) rosuvastatin [From Crestor] Allergy (Verified 07/30/17 17:44) simvastatin [From Zocor] Allergy (Verified 07/30/17 17:44) Angioedema Review of Systems Review of Systems: CONSTITUTIONAL : Fever, chills -- No; unexpalined fatigue -- No EENT: Denies eye, ear, throat, or mouth pain or symptoms. Denies nasal or sinus congestion or discharge. Denies throat, tongue, or mouth swelling or difficulty swallowing. CARDIOVASCULAR: As in HPI. No racing heart RESPIRATORY: As stated HPI. GASTROINTESTINAL: Denies abdominal pain or distention. Denies nausea, vomiting , or diarrhea. No rectal bleeding. GENITOURINARY: Urinary symptoms -- no. MUSCULOSKELETAL: No acute weakness SKIN: Denies rash, lesions or sores. HEMATOLOGIC : Denies easy bruising or bleeding. LYMPHATIC: Denies swollen, enlarged glands. NEUROLOGICAL: New weakness, headaches, slured speach - No PSYCHIATRIC: Changes anxiety or stress, depression, suicidal ideation, or homicidal ideation -- No ALL OTHER SYSTEMS REVIEWED AND NEGATIVE. Physical Exam Vital Signs: Temp Pulse Resp BP Pulse Ox 97.8 F 112 H 28 H 118/85 99 09/25/17 13:55 09/25/17 13:55 09/25/17 18:01 09/25/17 18:01 09/25/17 18:01 GENERAL: Well-developed, no acute distress HEENT: Normocephalic/atraumatic NECK supple, no JVD CARDIOVASCULAR: Tachycardic, normal S1-S2 LUNGS: Few basilar crackles bilaterally ABDOMEN: Soft, NT, NL bowel sounds EXTREMITIES: 2-3+ edema with chronic changes, no clubbing, cyanosis NEUROLOGICAL: Alert, oriented x 3, no significant weakness Results Laboratory Results: White blood cells 5.7, hemoglobin 14, hematocrit 43.4. Sodium 141, potassium 4.3, chloride 97, BUN 40, creatinine 1.27--baseline Impressions: Chest X-Ray 09/25/17 14:32 IMPRESSION: Stable marked cardiomegaly Chest/Abdomen CTA 09/25/17 15:49 IMPRESSION: 1. There is limited pulmonary embolus in the right upper lobe pulmonary artery. 2. Small pleural effusions. 3. Cardiomegaly. 4. Enlargement of the left lobe of the thyroid. Assessment & Plan - Diagnosis (1) Pulmonary embolism Qualifiers: Pulmonary embolism type: other Chronicity: acute Acute cor pulmonale presence: without acute cor pulmonale Qualified Code(s): I26.99 - Other pulmonary embolism without acute cor pulmonale Is this a current diagnosis for this admission?: Yes Plan: Risk factors include recent hospitalization. We will treat with O2 and continue Lovenox for now. Patient will need anticoagulation with Coumadin or perhaps Eliquis, given underlying chronic kidney disease. Patient would like to think about the options. (2) Acute on chronic systolic (congestive) heart failure Is this a current diagnosis for this admission?: Yes Plan: Echo from 07/2017 reveals EF of 35-30%. Suspect some element of acute on chronic congestive heart failure, given his significant lower extremity swelling the setting of patient not always compliant with diuretics. Will treat with IV Lasix for now. Resume cardiac medications otherwise. Also O2 as a pulmonary embolism to keep O2 sat 93% or above. (3) Pleuritic chest pain Is this a current diagnosis for this admission?: Yes Plan: Secondary to PE. Will treat underlying cause as above and manage pain. (4) Essential hypertension Is this a current diagnosis for this admission?: Yes Plan: Continue home meds. (5) History of CVA (cerebrovascular accident) Is this a current diagnosis for this admission?: Yes Plan: Stable (6) Type 2 diabetes mellitus Qualifiers: Diabetes mellitus custodial insulin use: without custodial use Diabetes mellitus complication status: with unspecified complications Qualified Code(s) : E11.8 - Type 2 diabetes mellitus with unspecified complications Is this a current diagnosis for this admission?: Yes Plan: Continue home meds, also sliding scale Accu-Chek with sliding scale insulin coverage. - Inpatient Certification Medical Necessity: Significant Comorbidiites Make Outpatient Treatment Too Risky , Need Close Monitoring Due to Risk of Patient Decompensation, Need For Continuous Telemetry Monitoring
[2017-09-25] MEDS: ENOXAPARIN SODIUM INJ 120 MG/0.8 ML DISP.SYRIN SUBCUT SCH (22:10)
[2017-09-25] MEDS: ACETAMINOPHEN 325 MG TABLET PO PRN (22:11)
[2017-09-25] MEDS ORDERED: DEXTROSE 50%-WATER SYRINGE 12.5 GM/25 ML DOSE IV PRN (22:41)
[2017-09-25] MEDS ORDERED: INSULIN LISPRO 100 UNIT/ML 3 ML VIAL SUBCUT PRN (22:41)
[2017-09-25] MEDS ORDERED: DEXTROSE 50%-WATER SYRINGE 25 GM/50 ML DOSE IV PRN (22:41)
[2017-09-25] MEDS ORDERED: DEXTROSE 40% GEL 15 GM TUBE PO PRN (22:41)
[2017-09-25] MEDS ORDERED: DEXTROSE 40% GEL 15 GM TUBE X 2 PO PRN (22:41)
[2017-09-25] MEDS ORDERED: GLUCAGON,HUMAN RECOMB 1 MG INJ IM PRN (22:41)
--- NOTE | 2017-09-25 23:32 | EKG REPORT ---
SEVERITY:- ABNORMAL ECG - SINUS TACHYCARDIA VENTRICULAR PREMATURE COMPLEX PROBABLE LEFT ATRIAL ABNORMALITY LOW VOLTAGE WITH RIGHT AXIS DEVIATION CONSIDER INFERIOR INFARCT CONSIDER ANTERIOR INFARCT BORDERLINE T WAVE ABNORMALITIES : Confirmed by: Pooja Patel 25-Sep-2017 23:31:34
[2017-09-26 05:43] LABS: ABSOLUTE BASOPHILS # (AUTO) 0.1 10^3/uL (0.0-0.2); ABSOLUTE EOSINOPHILS # (AUTO) 0.2 10^3/uL (0.0-0.6); ABSOLUTE LYMPHOCYTES (AUTO) 1.6 10^3/uL (0.5-4.7); ABSOLUTE NEUT (AUTO) 3.1 10^3/uL (1.7-8.2); BASOPHILS % (AUTO) 1.2 % (0-2); EOSINOPHILS % (AUTO) 3.9 % (0-6); HEMATOCRIT 43.8 % (37.9-51.0); HEMOGLOBIN 14.2 g/dL (13.5-17.0); LYMPHOCYTES % (AUTO) 26.4 % (13-45); MEAN CORPUSCULAR HEMOGLOBIN 26.2 pg (27.0-33.4); MEAN CORPUSCULAR HGB CONC 32.5 g/dL (32.0-36.0); MEAN CORPUSCULAR VOLUME 81 fl (80-97); MONOCYTES % (AUTO) 16.3 % (3-13); PLATELET COUNT 245 10^3/uL (150-450); RED BLOOD COUNT 5.42 10^6/uL (4.35-5.55); RED CELL DISTRIBUTION WIDTH 17.1 % (11.5-14.0); SEGMENTED NEUTROPHILS % (AUTO) 52.2 % (42-78); TOTAL CELLS COUNTED % (AUTO) 100 %
[2017-09-26 05:55] LABS: ANION GAP 14 (5-19); BLOOD UREA NITROGEN 38 mg/dL (7-20); CARBON DIOXIDE 32 mmol/L (22-30); CHLORIDE 99 mmol/L (98-107); GLUCOSE 128 mg/dL (75-110); POTASSIUM 4.3 mmol/L (3.6-5.0)
[2017-09-26] MEDS: ENOXAPARIN SODIUM INJ 120 MG/0.8 ML DISP.SYRIN SUBCUT SCH ×2 (09:39→21:12)
--- NOTE | 2017-09-26 15:42 | PDOC PROGRESS REPORT ---
Subjective Progress Note for:: 09/26/17 Subjective:: No overnight events. Patient denies fevers, chills, SOB, abdominal pain. He became very angry when conversation came up regarding discharge. Reason For Visit: PULMONARY EMBOLISM Physical Exam Vital Signs: Temp Pulse Resp BP Pulse Ox 97.8 F 86 18 115/83 100 09/26/17 11:25 09/26/17 14:24 09/26/17 14:24 09/26/17 11:25 09/26/17 11:25 Intake & Output 09/25/17 09/26/17 09/27/17 06:59 06:59 06:59 Intake Total 200 0 Balance 200 0 Weight 107.3 kg General appearance: PRESENT: other - Belligerent, uncooperative. ABSENT: cooperative Mouth exam: PRESENT: moist Respiratory exam: PRESENT: unlabored, other - Supplemental O2 in place. ABSENT : tachypnea Cardiovascular exam: PRESENT: +S1, +S2. ABSENT: tachycardia GI/Abdominal exam: PRESENT: soft. ABSENT: tenderness Extremities exam: PRESENT: +2 edema Neurological exam: PRESENT: alert, awake, CN II-XII grossly intact Psychiatric exam: PRESENT: agitated Focused psych exam: PRESENT: pressured speech Results Laboratory Results: 09/26/17 05:10 09/26/17 05:10 09/26/17 09/26/17 05:10 05:10 WBC 6.0 RBC 5.42 Hgb 14.2 Hct 43.8 MCV 81 MCH 26.2 L MCHC 32.5 RDW 17.1 H Plt Count 245 Seg Neutrophils % 52.2 Lymphocytes % 26.4 Monocytes % 16.3 H Eosinophils % 3.9 Basophils % 1.2 Absolute Neutrophils 3.1 Absolute Lymphocytes 1.6 Absolute Monocytes 1.0 Absolute Eosinophils 0.2 Absolute Basophils 0.1 Sodium 145.0 Potassium 4.3 Chloride 99 Carbon Dioxide 32 H Anion Gap 14 BUN 38 H Creatinine 1.41 H Est GFR ( Amer) > 60 Est GFR (Non-Af Amer) 51 L Glucose 128 H Calcium 9.0 Impressions: Chest X-Ray 09/25/17 14:32 IMPRESSION: Stable marked cardiomegaly Chest/Abdomen CTA 09/25/17 15:49 IMPRESSION: 1. There is limited pulmonary embolus in the right upper lobe pulmonary artery. 2. Small pleural effusions. 3. Cardiomegaly. 4. Enlargement of the left lobe of the thyroid. Assessment & Plan - Diagnosis (1) Pulmonary embolism Qualifiers: Pulmonary embolism type: other Chronicity: acute Acute cor pulmonale presence: without acute cor pulmonale Qualified Code(s): I26.99 - Other pulmonary embolism without acute cor pulmonale Is this a current diagnosis for this admission?: Yes Plan: Noted to have RUL pulmonary artery clot on CTA chest at admission. Risk factor included long recent hospitalization. Started on Lovenox. Began discussion regarding transitioning to oral agent (either DOAC or warfarin). However patient became very upset and did not want to continue discussion. Will continue Lovenox for now. Likely can transition to Eliquis and discharge to home. Should be treated for 3 months since this is a provoked PE. (2) Acute on chronic systolic CHF (congestive heart failure), NYHA class 4 Is this a current diagnosis for this admission?: Yes Plan: Echo from 07/2017 reveals EF of 35-30%. History of medication non-compliance. Continue IV lasix for now in addition to home cardiac medications. (3) Cerebrovascular accident (CVA) Is this a current diagnosis for this admission?: Yes Plan: History of CVA with altered speech. Stable, CTM (4) Chest pain Qualifiers: Chest pain type: unspecified Qualified Code(s): R07.9 - Chest pain, unspecified Is this a current diagnosis for this admission?: Yes Plan: Pleuretic CP, likely due to PE. Improved today. - Time Time Spent with patient: Less than 15 minutes Anticipated discharge: Home, Other - Placement pending Within: within 24 hours, within 48 hours
[2017-09-26] MEDS ORDERED: TUBERCULIN,PURIF.PROT.DERIV. 5 TU/0.1 ML TEST 1 ML VIAL ID ONE (17:00)
[2017-09-26] MEDS ORDERED: ALBUTEROL SULFATE HFA (90 MCG/PUFF) 8 GM MDI (1 MDI/ER DISP) IH PRN (17:28)
[2017-09-26] MEDS: TAMSULOSIN HCL 0.4 MG CAP.SR.24H PO SCH (19:08)
[2017-09-26] MEDS: ACETAMINOPHEN 325 MG TABLET PO PRN (19:18)
[2017-09-26] MEDS ORDERED: ALBUTEROL SULFATE HFA (90 MCG/PUFF) 200 PUFF/8.5 GM MDI IH PRN (20:03)
[2017-09-26] MEDS: BUMETANIDE 1 MG TABLET PO SCH (20:30)
[2017-09-26] MEDS: GABAPENTIN 100 MG CAPSULE PO SCH (21:11)
[2017-09-26] MEDS: CARVEDILOL 12.5 MG TABLET PO SCH (21:11)
[2017-09-26] MEDS: BUDESONIDE/FORMOTEROL 160-4.5 MCG 60 PUFF/6 GM MDI IH SCH (21:12)
[2017-09-26] MEDS: CYCLOSPORINE 0.05% OPH EMULSIO 0.4 ML DROPERETTE OU SCH (21:16)
[2017-09-26] MEDS ORDERED: CYCLOSPORINE 0.05% OPH EMULSIO 0.4 ML DROPERETTE OU SCH (22:00)
[2017-09-27] MEDS: LANSOPRAZOLE 15 MG TAB.RAP.DR PO SCH (05:14)
[2017-09-27] MEDS: GABAPENTIN 100 MG CAPSULE PO SCH ×3 (05:14→21:07)
[2017-09-27] MEDS: ACETAMINOPHEN 325 MG TABLET PO PRN ×2 (07:52→12:54)
[2017-09-27] MEDS: DOCUSATE SODIUM 100 MG CAPSULE PO SCH (09:56)
[2017-09-27] MEDS: BUMETANIDE 1 MG TABLET PO SCH (09:57)
[2017-09-27] MEDS: APIXABAN 5 MG TABLET PO SCH ×2 (09:57→17:41)
[2017-09-27] MEDS: ASPIRIN 81 MG TABLET, CHEWABLE PO SCH (09:58)
[2017-09-27] MEDS: FERROUS SULFATE 325 MG TABLET PO SCH ×3 (09:59→17:41)
[2017-09-27] MEDS: CARVEDILOL 12.5 MG TABLET PO SCH ×2 (09:59→21:08)
[2017-09-27] MEDS: CYCLOSPORINE 0.05% OPH EMULSIO 0.4 ML DROPERETTE OU SCH ×2 (10:06→21:09)
[2017-09-27] MEDS: CLOPIDOGREL BISULFATE 75 MG TABLET PO SCH (10:07)
[2017-09-27] MEDS: BUDESONIDE/FORMOTEROL 160-4.5 MCG 60 PUFF/6 GM MDI IH SCH ×2 (10:10→21:08)
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
[2017-09-27] MEDS: FUROSEMIDE INJ/PF 40 MG/4 ML SDV IV SCH (17:42)
[2017-09-27] MEDS: TAMSULOSIN HCL 0.4 MG CAP.SR.24H PO SCH (19:51)
[2017-09-27] MEDS ORDERED: MAG HYDROX/AL HYDROX/SIMETH SUSP 30 ML UDCUP ONE (21:06)
[2017-09-27] MEDS ORDERED: ONDANSETRON HCL INJ/PF 4 MG/2 ML SDV ONE (21:06)
[2017-09-27] MEDS ORDERED: ONDANSETRON HCL INJ/PF 4 MG/2 ML SDV IV PRN (21:31)
[2017-09-27] MEDS ORDERED: MAG HYDROX/AL HYDROX/SIMETH SUSP 30 ML UDCUP PO PRN (21:34)
[2017-09-28] MEDS: ACETAMINOPHEN 325 MG TABLET PO PRN ×2 (04:21→22:13)
[2017-09-28] MEDS: LANSOPRAZOLE 15 MG TAB.RAP.DR PO SCH (07:04)
[2017-09-28] MEDS ORDERED: LORAZEPAM 0.5 MG TABLET PO PRN (08:03)
[2017-09-28] MEDS: FERROUS SULFATE 325 MG TABLET PO SCH ×3 (08:21→17:39)
[2017-09-28] MEDS: GABAPENTIN 100 MG CAPSULE PO SCH ×3 (08:21→22:13)
[2017-09-28] MEDS: FUROSEMIDE INJ/PF 40 MG/4 ML SDV IV SCH ×2 (08:21→17:39)
[2017-09-28] MEDS: APIXABAN 5 MG TABLET PO SCH ×2 (09:46→17:32)
[2017-09-28] MEDS: CARVEDILOL 12.5 MG TABLET PO SCH ×2 (09:46→23:34)
[2017-09-28] MEDS: ASPIRIN 81 MG TABLET, CHEWABLE PO SCH (09:47)
[2017-09-28] MEDS: CYCLOSPORINE 0.05% OPH EMULSIO 0.4 ML DROPERETTE OU SCH ×2 (09:48→22:17)
[2017-09-28] MEDS: BUDESONIDE/FORMOTEROL 160-4.5 MCG 60 PUFF/6 GM MDI IH SCH ×2 (09:48→22:11)
[2017-09-28] MEDS ORDERED: MORPHINE SULFATE 10 MG/ML INJ IV ONE (09:50)
[2017-09-28] MEDS: CLOPIDOGREL BISULFATE 75 MG TABLET PO SCH (09:54)
[2017-09-28] MEDS: DOCUSATE SODIUM 100 MG CAPSULE PO SCH (09:54)
--- NOTE | 2017-09-28 10:28 | EKG REPORT ---
SEVERITY:- ABNORMAL ECG - SINUS RHYTHM PROBABLE LEFT ATRIAL ABNORMALITY RIGHT AXIS DEVIATION ANTEROLATERAL INFARCT, AGE INDETERMINATE BORDERLINE T WAVE ABNORMALITIES BORDERLINE PROLONGED QT INTERVAL : Confirmed by: Pooja Patel 28-Sep-2017 10:28:15
[2017-09-28] MEDS ORDERED: LORAZEPAM INJ 2 MG/1 ML VIAL ONE (12:57)
--- NOTE | 2017-09-28 13:01 | PDOC PROGRESS REPORT ---
Subjective Progress Note for:: 09/28/17 Subjective:: Overnight patient complained of heart burn. This morning continued to c/o heart burn. Noted to have nausea and dry heaving. Given recent cardiac issues, ordered EKG, troponin, Denies fevers, chills, SOB, or diaphoresis. Very anxious. Reason For Visit: PULMONARY EMBOLISM Physical Exam Vital Signs: Temp Pulse Resp BP Pulse Ox 97.4 F 94 18 92/66 L 98 09/28/17 07:55 09/28/17 07:55 09/28/17 07:55 09/28/17 07:55 09/28/17 07:55 Intake & Output 09/27/17 09/28/17 09/29/17 06:59 06:59 06:59 Intake Total 845 1745 Output Total 200 Balance 645 1745 Weight 107.3 kg General appearance: PRESENT: mild distress, obese Mouth exam: PRESENT: moist Respiratory exam: PRESENT: crackles, decreased breath sounds, other - On supplemental O2, 3L Cardiovascular exam: PRESENT: +S1, +S2. ABSENT: tachycardia GI/Abdominal exam: PRESENT: soft. ABSENT: tenderness Neurological exam: PRESENT: alert, awake, CN II-XII grossly intact, aphasic - From previous CVA Psychiatric exam: PRESENT: agitated, anxious Focused psych exam: PRESENT: pressured speech, restlessness Results Laboratory Results: 09/26/17 05:10 09/26/17 05:10 09/28/17 10:04 Troponin I 0.114 Impressions: Chest X-Ray 09/25/17 14:32 IMPRESSION: Stable marked cardiomegaly Chest/Abdomen CTA 09/25/17 15:49 IMPRESSION: 1. There is limited pulmonary embolus in the right upper lobe pulmonary artery. 2. Small pleural effusions. 3. Cardiomegaly. 4. Enlargement of the left lobe of the thyroid. Assessment & Plan - Diagnosis (1) Chest pain Qualifiers: Chest pain type: unspecified Qualified Code(s): R07.9 - Chest pain, unspecified Is this a current diagnosis for this admission?: Yes Plan: Worsening chest pain this AM. Patient initially presented with pleuretic CP thought secondary to PE. Since around 2AM overnight, patient complaining of acid reflux. He has been receiving PPI. - EKG check and no evidence of acute ST changes - Troponin elevated at 0.0114 however this is improved compared to previous ( was 0.162 on 09/25). Will repeat at 16:00 - Given recent significant cardiac history and PE diagnosis, will consult cardiology for evaluation - Patient is already fully anticoagulated on Eliquis - Ordered IV morphine * 1 dose. ALso ordered Ativan PRN for anxiety which patient admits to and may be driving chest pain (2) Pulmonary embolism Qualifiers: Pulmonary embolism type: other Chronicity: acute Acute cor pulmonale presence: without acute cor pulmonale Qualified Code(s): I26.99 - Other pulmonary embolism without acute cor pulmonale Is this a current diagnosis for this admission?: Yes Plan: Noted to have RUL pulmonary artery clot on CTA chest at admission. Risk factor included long recent hospitalization. Continue Eliquis 5mg BID, startedon 09/27. Will treat for 3 month in setting of provoked VTE. (3) Acute on chronic systolic CHF (congestive heart failure), NYHA class 4 Is this a current diagnosis for this admission?: Yes Plan: Echo from 07/2017 reveals EF of 35-30%. History of medication non-compliance. Continue IV lasix for now in addition to home cardiac medications. - Goal Net Neg 1L daily - Daily weights - Cardiac diet (4) Cerebrovascular accident (CVA) Is this a current diagnosis for this admission?: Yes Plan: History of CVA with altered speech. Stable, CTM - Time Time Spent with patient: 15-24 minutes Anticipated discharge: Other - Assisted living facilty Within: within 24 hours
[2017-09-28] MEDS: PANTOPRAZOLE SODIUM 40 MG VIAL IV SCH (17:32)
[2017-09-28] MEDS: RANOLAZINE 500 MG TAB.SR.12H PO SCH (17:39)
[2017-09-28] MEDS: ISOSORBIDE MONONITRATE 30 MG TAB.ER.24H PO SCH (17:39)
[2017-09-28] MEDS: TAMSULOSIN HCL 0.4 MG CAP.SR.24H PO SCH (18:59)
--- NOTE | 2017-09-28 19:04 | PDOC CONSULTATION ---
Consultation Consult Date: 09/28/17 Attending physician:: ENEDINA SINHA Consult reason:: CP History of Present Illness Admission Date/PCP: 09/25/17 18:31 Patient complains of: Chest pain History of Present Illness: ALEX Guadarrama KNIGHT is a 61 year old male history of CVA, CHF echo 07/2017 with EF 25-30%, history of CAD with recent hospitalization at [facility] for non-STEMI about 2 weeks ago, but patient reports he did not receive any stent. He now presented to the ED with complaint of chest pain worse with deep breaths. He admits to some shortness of breath. Evaluation in the ED significant for elevated d-dimer at 3.05. Follow-up chest CTA revealed pulmonary embolism right upper lobe pulmonary artery. Patient started on Lovenox. He had tachypnea at 30, tachycardic at 112. He was referred for admission for further evaluation and management. Patient admits to sometimes noncompliance with his diuretics medications because he does not want to have to urinate all the time when he is out and about. Currently denies fever or chills, no orthopnea or PND. He does have lower extremity swellings. Has dry cough. This history was reviewed and confirmed. Patient had an episode of chest pain. EKG obtained showed no significant ST-T wave changes. Patient on questioning describes history of reflux, intermittent nausea. Past Medical History Cardiac Medical History: Reports: Congestive Heart Failure, Coronary Artery Disease, Myocardial Infarction - 2008, Hyperlipidema, Hypertension Pulmonary Medical History: Reports: Asthma, Bronchitis, Chronic Obstructive Pulmonary Disease (COPD), Sleep Apnea Neurological Medical History: Denies: Seizures Endocrine Medical History: Reports: Diabetes Mellitus Type 1, Diabetes Mellitus Type 2 Renal/ Medical History: Malignancy Medical History: Denies: Breast Cancer, Cervical Cancer, Ovarian Cancer GI Medical History: Reports: Diverticulitis, Gastroesophageal Reflux Disease Musculoskeltal Medical History: Reports: Arthritis Psychiatric Medical History: Reports: Post Traumatic Stress Disorder Denies: Depression Hematology: Reports: Anemia Denies: Hemophilia, Sickle Cell Disease - sickle cell trait Infectious Medical History: Past Surgical History Past Surgical History: Reports: Cardiac Catheterization, Coronary Artery Bypass Graft, Coronary Stent - 1984, Other - AICD Social History Information Source: Patient Smoking Status: Never Smoker Frequency of Alcohol Use: None Hx Recreational Drug Use: No Drugs: None Hx Prescription Drug Abuse: No - Advance Directive Resuscitation Status: Full Code Family History Family History: Reviewed & Not Pertinent, CAD, DM, Hypertension, Thyroid Disfunction Parental Family History Reviewed: Yes Children Family History Reviewed: Yes Sibling(s) Family History Reviewed.: Yes Medication/Allergy Home Medications: Albuterol Sulfate [Proair HFA] 2 puff IH Q6HP PRN 08/01/17 Ascorbic Acid [Vitamin C 500 mg Tablet] 500 mg PO DAILY 08/01/17 Aspirin [Aspirin 81 mg Chewable Tablet] 81 mg PO DAILY 08/01/17 Clopidogrel Bisulfate [Plavix 75 mg Tablet] 75 mg PO DAILY 08/01/17 Cyclosporine [Restasis Droperette] 1 each OU Q12 08/01/17 Docusate Sodium [Colace 100 mg Capsule] 200 mg PO DAILY 08/01/17 Ferrous Sulfate [Feosol 325 mg Tablet] 325 mg PO MEALS 08/01/17 Lanolin Alcohol/Mo/W.pet/[place] [Eucerin Creme] 1 applic TP BIDP PRN 08/01/17 Metformin HCl [Glucophage 500 mg Tablet] 500 mg PO BIDBS 08/01/17 [place]-3 Acid Ethyl Esters [Lovaza 1 gm Capsule] 2 gm PO BID 08/01/17 Omeprazole 20 mg PO Q6AM 08/01/17 Tamsulosin HCl [Flomax] 0.4 mg PO QPM 08/01/17 Acetaminophen [Tylenol 325 mg Tablet] 650 mg PO Q4HP PRN #30 tablet 08/20/17 Nitroglycerin [Nitrostat 0.4 mg (1/150 Gr) Tabs 25/Bottle] 1 tab SL Q5MP PRN # 10 bottle 08/20/17 Budesonide/Formoterol Fumarate [Symbicort Hfa 160-4.5 Mcg Inhaler 6 gm] 2 puff IH Q12 09/25/17 Bumetanide [Bumex 1 mg Tablet] 2 mg PO BID 09/25/17 Carvedilol [Coreg 12.5 mg Tablet] 12.5 mg PO Q12 09/25/17 Gabapentin [Neurontin 100 mg Capsule] 100 mg PO Q8 09/25/17 Lactulose [Cephulac 20 gm/30 ml Syrup UD Cup] 10 ml PO QPM 09/25/17 Allergies/Adverse Reactions: captopril [From Capoten] Allergy (Severe, Verified 07/30/17 17:44) Angioedema atorvastatin calcium [From Lipitor] Allergy (Intermediate, Verified 07/30/17 17: 44) Angioedema clopidogrel [From Plavix] Allergy (Verified 07/30/17 17:44) rosuvastatin [From Crestor] Allergy (Verified 07/30/17 17:44) simvastatin [From Zocor] Allergy (Verified 07/30/17 17:44) Angioedema Review of Systems Review of Systems: Please see history of present illness and past medical history as wall. Constitutional: No fever or chills reported. Head : No recent chronic headaches, recent head injury. Eyes: No recent eye pain, diplopia, redness, discharge, acute visual changes. Ears: No recent chronic ear pain, acute hearing loss, ear discharge. Oral cavity: No recent ulcerations, bleeding, oral cavity discomfort. Neck: No recent acute neck pain reported. Hematologic: No recent easy bruising or bleeding. Lymphatic: No recent lymph node enlargement reported. Cardiovascular system review: See history of present illness. Recent non-STEMI with stent placement. History of edema. Respiratory system review: No hemoptysis or blood clots in the lungs reported. Mild Shortness of breath on exertion Gastrointestinal system review: Negative for any recent acute hematemesis, melena. History of acid reflux Genitourinary system review: No recent acute or chronic hematuria, flank pain, UTI etc. reported. Skin system review: Negative for any recent abnormal bruising, no rash, no pruritus reported. Neurologic: No prior history of strokes, mini strokes, seizure disorder. Psychologic: No history of major psychosis or major depression reported. History of PTSD and depression. Musculoskeletal: Minor aches and pains reported. No acute joint swelling reported. Endocrine: No recent polyuria, polydipsia, recent heat or cold intolerance. Physical Exam Vital Signs: Temp Pulse Resp BP Pulse Ox 97.4 F 94 18 92/66 L 98 09/28/17 07:55 09/28/17 07:55 09/28/17 07:55 09/28/17 07:55 09/28/17 07:55 Intake & Output 09/27/17 09/28/17 09/29/17 06:59 06:59 06:59 Intake Total 845 1745 222 Output Total 200 Balance 645 1745 222 Weight 107.3 kg Exam: GENERAL: well-nourished and in no acute distress. Alert and oriented x3 HEAD: Atraumatic, normocephalic. EYES: Pupils equal round and reactive to light, extraocular movements intact, sclera anicteric, conjunctiva are normal. ENT: TMs normal, nares patent, oropharynx clear without exudates. Moist mucous membranes. No oral ulcerations or bleeding gums noted NECK: supple without lymphadenopathy. Trachea is central. No cervical or axillary lymphadenopathy noted. Carotids are 2+, JVD WNL LUNGS: Respiration seems nonlabored, no significant accessory muscle action noted. Bibasilar fine crackles are noted. No wheezes rales or rhonchi noted. No significant dullness noted on percussion. CHEST: Palpation of the chest wall shows no significant chest wall tenderness. 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 ABDOMEN: Soft, no significant tenderness appreciated, normoactive bowel sounds. No guarding, no rebound. No rigidity noted . No masses appreciated. EXTREMITIES: Pedal pulses are 1-2+, no calf tenderness noted. No clubbing or cyanosis. negative pedal edema noted NEUROLOGICAL: Focused neurological exam showed no significant neurologic deficit. Normal speech, no focal weakness appreciated. PSYCH: Normal mood, normal affect. Judgment and insight within normal limits. SKIN: No significant ecchymosis, skin is noted to be warm. Mild superficial ulceration noted left leg. MUSCULOSKELETAL EXAM: No significant acute joint swelling noted. Results Laboratory Results: 09/26/17 05:10 09/26/17 05:10 09/28/17 10:04 Troponin I 0.114 EKG Comments: Telemetry strips shows sinus rhythm without any sustained tachycardia or bradycardia. No acute ST-T wave changes noted on twelve-lead EKG Impressions: Chest X-Ray 09/25/17 14:32 IMPRESSION: Stable marked cardiomegaly Chest/Abdomen CTA 09/25/17 15:49 IMPRESSION: 1. There is limited pulmonary embolus in the right upper lobe pulmonary artery. 2. Small pleural effusions. 3. Cardiomegaly. 4. Enlargement of the left lobe of the thyroid. Assessment & Plan - Diagnosis (1) Chest pain Qualifiers: Chest pain type: unspecified Qualified Code(s): R07.9 - Chest pain, unspecified Is this a current diagnosis for this admission?: Yes (2) Coronary artery disease Qualifiers: Coronary Disease-Associated Artery/Lesion type: [place] artery [place] vs. 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 Will try obtain cardiac cath report. Will optimize underlying medical therapy. In this regard patient already on dual antiplatelet therapy. We will start patient on Ranexa and Imdur. Patient describes history of acid reflux therefore will place patient on proton pump inhibitor. Acute on chronic systolic heart failure: Patient has severely depressed LVEF. Continue with current diuretic therapy. Will try optimize therapy for underlying CHF and cardiomyopathy. Have ordered a repeat 2D echocardiogram. Hypertension: Currently stable. Blood pressure goal should be 135/85 or less. Obstructive sleep apnea: Patient will benefit from nightly CPAP/BiPAP therapy. Diabetes: Continue aggressive management of diabetes but avoid any hypoglycemia or sustained hyperglycemia. - Time Time Spent: 30 to 50 Minutes - More than 50% of the time spent coordinating care , discussing management plans with involved caregivers. Management plans discussed with involved personnels. Medical decision making was of moderate to high complexity, patient's has multiple comorbidities. Medications reviewed and adjusted accordingly: Yes
[2017-09-28] MEDS: IPRATROPIUM/ALBUTEROL 0.5-2.5 MG/3 ML AMPUL NEB PRN (20:02)
--- NOTE | 2017-09-28 22:31 | EKG REPORT ---
SEVERITY:- ABNORMAL ECG - SINUS RHYTHM PROBABLE LEFT ATRIAL ABNORMALITY RIGHT AXIS DEVIATION BORDERLINE INFERIOR Q WAVES CONSIDER ANTERIOR INFARCT BORDERLINE T WAVE ABNORMALITIES : Confirmed by: Pooja Patel 28-Sep-2017 22:30:14
[2017-09-29] MEDS: PANTOPRAZOLE SODIUM 40 MG VIAL IV SCH ×2 (05:10→18:31)
[2017-09-29] MEDS: FUROSEMIDE INJ/PF 40 MG/4 ML SDV IV SCH ×2 (05:10→18:31)
[2017-09-29] MEDS: RANOLAZINE 500 MG TAB.SR.12H PO SCH ×2 (05:10→18:28)
[2017-09-29] MEDS: GABAPENTIN 100 MG CAPSULE PO SCH ×3 (05:10→21:11)
[2017-09-29] MEDS: FERROUS SULFATE 325 MG TABLET PO SCH ×3 (08:24→18:23)
[2017-09-29] MEDS: CYCLOSPORINE 0.05% OPH EMULSIO 0.4 ML DROPERETTE OU SCH ×2 (09:16→21:11)
[2017-09-29] MEDS: CARVEDILOL 12.5 MG TABLET PO SCH ×2 (09:16→21:11)
[2017-09-29] MEDS: BUDESONIDE/FORMOTEROL 160-4.5 MCG 60 PUFF/6 GM MDI IH SCH ×2 (09:16→21:11)
[2017-09-29] MEDS: DOCUSATE SODIUM 100 MG CAPSULE PO SCH (09:16)
[2017-09-29] MEDS: APIXABAN 5 MG TABLET PO SCH ×2 (09:16→18:28)
[2017-09-29] MEDS: ASPIRIN 81 MG TABLET, CHEWABLE PO SCH (09:16)
[2017-09-29] MEDS: ACETAMINOPHEN 325 MG TABLET PO PRN ×2 (09:48→21:58)
--- NOTE | 2017-09-29 10:55 | PDOC TRANSFER SUMMARY ---
General - Admit/Disc Date/PCP Admission Date/Primary Care Provider: 09/25/17 18:31 Discharge Date: 09/29/17 - Discharge Diagnosis (1) Pulmonary embolism Is this a current diagnosis for this admission?: Yes Summary: Patient will be discharged on Eliquis bid for a total of 3 mos since this is likely a provoked PE from recent hospitalization (2) Pleuritic chest pain Is this a current diagnosis for this admission?: Yes Summary: Secondary to PE (3) Coronary artery disease Is this a current diagnosis for this admission?: Yes Summary: Recent stents. Continue aspirin, ranexa, statin (4) Acute on chronic systolic and diastolic heart failure, NYHA class 4 Is this a current diagnosis for this admission?: Yes Summary: He has been diuresed. EF 25-30%. He has been noncompliant with home medications. (5) Benign essential hypertension Is this a current diagnosis for this admission?: Yes Summary: Continue current medications. He is normotensive (6) Diabetic neuropathy Is this a current diagnosis for this admission?: Yes Summary: Continue gabapentin (7) Essential hypertension Is this a current diagnosis for this admission?: Yes Summary: Continue current medications (9) Type 2 diabetes mellitus Is this a current diagnosis for this admission?: Yes Summary: Continue current medications - Additional Information Resuscitation Status: Full Code Discharge Diet: Cardiac, Diabetic Discharge Activity: Activity As Tolerated, Balance Activity w/Rest, Weigh Daily Prescriptions: Apixaban [Eliquis 5 mg Tablet] 5 mg PO BID #60 tablet Ranolazine [Ranexa 500 mg Tab.sr] 500 mg PO Q12A #60 tab.sr.12h Home Medications: Albuterol Sulfate [Proair HFA] 2 puff IH Q6HP PRN 08/01/17 Ascorbic Acid [Vitamin C 500 mg Tablet] 500 mg PO DAILY 08/01/17 Aspirin [Aspirin 81 mg Chewable Tablet] 81 mg PO DAILY 08/01/17 Cyclosporine [Restasis Droperette] 1 each OU Q12 08/01/17 Docusate Sodium [Colace 100 mg Capsule] 200 mg PO DAILY 08/01/17 Ferrous Sulfate [Feosol 325 mg Tablet] 325 mg PO MEALS 08/01/17 Lanolin Alcohol/Mo/W.pet/[place] [Eucerin Creme] 1 applic TP BIDP PRN 08/01/17 Metformin HCl [Glucophage 500 mg Tablet] 500 mg PO BIDBS 08/01/17 [place]-3 Acid Ethyl Esters [Lovaza 1 gm Capsule] 2 gm PO BID 08/01/17 Omeprazole 20 mg PO Q6AM 08/01/17 Tamsulosin HCl [Flomax] 0.4 mg PO QPM 08/01/17 Acetaminophen [Tylenol 325 mg Tablet] 650 mg PO Q4HP PRN #30 tablet 08/20/17 Nitroglycerin [Nitrostat 0.4 mg (1/150 Gr) Tabs 25/Bottle] 1 tab SL Q5MP PRN # 10 bottle 08/20/17 Budesonide/Formoterol Fumarate [Symbicort HFA 160-4.5 mcg Inhaler 6 gm] 2 puff IH Q12 09/25/17 Bumetanide [Bumex 1 mg Tablet] 2 mg PO BID 09/25/17 Carvedilol [Coreg 12.5 mg Tablet] 12.5 mg PO Q12 09/25/17 Gabapentin [Neurontin 100 mg Capsule] 100 mg PO Q8 09/25/17 Lactulose [Cephulac Syrup 20 gm/30 ml Udcup] 10 ml PO QPM 09/25/17 Apixaban [Eliquis 5 mg Tablet] 5 mg PO BID #60 tablet 09/29/17 Ranolazine [Ranexa 500 mg Tab.sr] 500 mg PO Q12A #60 tab.sr.12h 09/29/17 History of Present Illness Admission Date/PCP: 09/25/17 18:31 Patient complains of: Shortness of breath and chest pain with inspiration History of Present Illness: ALEX Guadarrama KNIGHT is a 61 year old male history of CVA, CHF echo 07/2017 with EF 25-30%, history of CAD with recent hospitalization at [facility] for non-STEMI about 2 weeks ago, but patient reports he did not receive any stent. He now presented to the ED with complaint of chest pain worse with deep breaths. He admits to some shortness of breath. Evaluation in the ED significant for elevated d-dimer at 3.05. Follow-up chest CTA revealed pulmonary embolism right upper lobe pulmonary artery. Patient started on Lovenox. He had tachypnea at 30, tachycardic at 112. He was referred for admission for further evaluation and management. Patient admits to sometimes noncompliance with his diuretics medications because he does not want to have to urinate all the time when he is out and about. Currently denies fever or chills, no orthopnea or PND. He does have lower extremity swellings. Has dry cough Hospital Course Hospital Course: Patient was admitted to [facility] on telemetry. He was diuresed as he had evidence of fluid volume overload from not taking his home diuretic. He was started on lovenox and transitioned to eliquis therapy. He was seen by cardiology . He was placed on ranexa for complaints of chest pain. Serial troponins were done which were negative. He underwent transthoracic echo. Case management was consulted for discharge planning. Family feels he is not safe at home and is noncompliant with medical therapy. He was accepted at [facility]. PPD was done which was read today as being negative. Physical Exam Vital Signs: Temp Pulse Resp BP Pulse Ox 97.5 F 68 18 91/70 L 100 09/29/17 04:32 09/29/17 09:05 09/29/17 09:05 09/29/17 04:32 09/29/17 04:32 Intake & Output 09/28/17 09/29/17 09/30/17 06:59 06:59 06:59 Intake Total 1745 671 Output Total 100 Balance 1745 571 Weight 107.3 kg 107.2 kg General appearance: PRESENT: no acute distress, morbidly obese, well-developed, well-nourished Head exam: PRESENT: atraumatic Eye exam: PRESENT: conjunctiva pink, EOMI, PERRLA. ABSENT: scleral icterus Ear exam: PRESENT: normal external ear exam Mouth exam: PRESENT: moist, tongue midline Neck exam: ABSENT: carotid bruit, JVD, lymphadenopathy, thyromegaly Respiratory exam: PRESENT: clear to auscultation rahul. ABSENT: rales, rhonchi, wheezes Cardiovascular exam: PRESENT: bradycardia Pulses: PRESENT: normal carotid pulses, normal radial pulses Vascular exam: PRESENT: normal capillary refill GI/Abdominal exam: PRESENT: ascites, normal bowel sounds, soft Rectal exam: PRESENT: deferred Extremities exam: PRESENT: full ROM, +1 edema - bilateral lower extremities. ABSENT: calf tenderness, clubbing, pedal edema Musculoskeletal exam: PRESENT: ambulatory, full ROM, normal inspection Neurological exam: PRESENT: alert, awake, oriented to person, oriented to place , oriented to time, oriented to situation, CN II-XII grossly intact. ABSENT: motor sensory deficit Psychiatric exam: PRESENT: appropriate affect, normal mood. ABSENT: homicidal ideation, suicidal ideation Skin exam: PRESENT: dry, intact, warm. ABSENT: cyanosis, rash Results Laboratory Results: 09/26/17 05:10 09/26/17 05:10 09/28/17 09/28/17 10:04 15:40 Troponin I 0.114 0.089 Impressions: Chest X-Ray 09/25/17 14:32 IMPRESSION: Stable marked cardiomegaly Chest/Abdomen CTA 09/25/17 15:49 IMPRESSION: 1. There is limited pulmonary embolus in the right upper lobe pulmonary artery. 2. Small pleural effusions. 3. Cardiomegaly. 4. Enlargement of the left lobe of the thyroid. Transfer Plan - Disposition Transfer Plan: [facility] - Time Spent with Patient Time spent with patient: Less than 30 Minutes Qualifiers - * PATIENT BEING DISCHARGED WITH ANY OF THE FOLLOWING DIAGNOSIS: No, Heart Failure HF Pt being discharged on ACEI for LVEF less than 40%?: No Reason(s) for not prescribing ACEI:: Medical Contraindication, Adverse reaction to drug HF Pt being discharged on [facility] for LVEF less than 40%?: No Reason(s) for not prescribing [facility]:: Medical Contraindication, Adverse reaction to drug HF Pt with Afib discharged with Warfarin?: No Reason(s) for not prescribing Warfarin:: Not indicated HF Pt discharged on evidence-based Beta Makenna:: Yes Plan Discharge Plan: [facility] Time Spent: Less than 30 Minutes
--- NOTE | 2017-09-29 12:03 | PDOC PROGRESS REPORT ---
Subjective Progress Note for:: 09/29/17 Subjective:: Patient is seen on rounds. He is resting in the bedside recliner. He denies any chest pain, shortness of breath or dyspnea. He denies any nausea, vomiting or abdominal pain. He denies any significant arthralgias or myalgias. Remaining review of systems are negative Reason For Visit: PULMONARY EMBOLISM Physical Exam Vital Signs: Temp Pulse Resp BP Pulse Ox 97.5 F 68 18 91/70 L 100 09/29/17 04:32 09/29/17 09:05 09/29/17 09:05 09/29/17 04:32 09/29/17 04:32 Intake & Output 09/28/17 09/29/17 09/30/17 06:59 06:59 06:59 Intake Total 1745 671 Output Total 100 Balance 1745 571 Weight 107.3 kg 107.2 kg General appearance: PRESENT: no acute distress, morbidly obese, well-developed, well-nourished Head exam: PRESENT: atraumatic, normocephalic Eye exam: PRESENT: conjunctiva pink, EOMI, PERRLA. ABSENT: scleral icterus Ear exam: PRESENT: normal external ear exam Mouth exam: PRESENT: moist, tongue midline Neck exam: ABSENT: carotid bruit, JVD, lymphadenopathy, thyromegaly Respiratory exam: PRESENT: clear to auscultation rahul. ABSENT: rales, rhonchi, wheezes Cardiovascular exam: PRESENT: RRR, systolic murmur - 1/6. ABSENT: diastolic murmur, rubs Pulses: PRESENT: normal carotid pulses, normal radial pulses Vascular exam: PRESENT: normal capillary refill GI/Abdominal exam: PRESENT: normal bowel sounds, soft. ABSENT: distended, guarding, mass, organolmegaly, rebound, tenderness Rectal exam: PRESENT: deferred Extremities exam: PRESENT: calf tenderness, +2 edema - bilateral lower extremities Musculoskeletal exam: PRESENT: ambulatory, full ROM, normal inspection Neurological exam: PRESENT: alert, awake, oriented to person, oriented to place , oriented to time, oriented to situation, CN II-XII grossly intact. ABSENT: motor sensory deficit Psychiatric exam: PRESENT: appropriate affect, normal mood. ABSENT: homicidal ideation, suicidal ideation Skin exam: PRESENT: dry, intact, warm. ABSENT: cyanosis, rash Results Laboratory Results: 09/26/17 05:10 09/26/17 05:10 09/28/17 09/28/17 10:04 15:40 Troponin I 0.114 0.089 Impressions: Chest X-Ray 09/25/17 14:32 IMPRESSION: Stable marked cardiomegaly Chest/Abdomen CTA 09/25/17 15:49 IMPRESSION: 1. There is limited pulmonary embolus in the right upper lobe pulmonary artery. 2. Small pleural effusions. 3. Cardiomegaly. 4. Enlargement of the left lobe of the thyroid. Assessment & Plan - Diagnosis (1) Pulmonary embolism Qualifiers: Pulmonary embolism type: other Chronicity: acute Acute cor pulmonale presence: without acute cor pulmonale Qualified Code(s): I26.99 - Other pulmonary embolism without acute cor pulmonale Is this a current diagnosis for this admission?: Yes Plan: Continue eliquis bid for the next 3 months (2) Pleuritic chest pain Is this a current diagnosis for this admission?: Yes Plan: Secondary to PE (3) Coronary artery disease Qualifiers: Coronary Disease-Associated Artery/Lesion type: [place] artery [place] vs. transplanted heart: [place] heart Associated angina: angina presence unspecified Qualified Code(s): I25.10 - Atherosclerotic heart disease of [place] coronary artery without angina pectoris Is this a current diagnosis for this admission?: Yes Plan: Continue current medications (4) Acute on chronic systolic and diastolic heart failure, NYHA class 4 Is this a current diagnosis for this admission?: Yes Plan: Cardiology is following he is normotensive (5) Benign essential hypertension Is this a current diagnosis for this admission?: Yes Plan: Borderline hypotensive. 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 use: without [facility] use Diabetes mellitus complication status: with unspecified complications Qualified Code(s) : E11.8 - Type 2 diabetes mellitus with unspecified complications Is this a current diagnosis for this admission?: Yes Plan: Continue current medications and sliding scale coverage - Time Time Spent with patient: 15-24 minutes Medications reviewed and adjusted accordingly: Yes Anticipated discharge: Other - Assisted living Within: when bed available - Inpatient Certification Based on my medical assessment, after consideration of the patient's comorbidities, presenting symptoms, or acuity I expect that the services needed warrant INPATIENT care.: Yes I certify that my determination is in accordance with my understanding of Medicare's requirements for reasonable and necessary INPATIENT services [42 CFR 412.3e].: Yes Medical Necessity: Significant Comorbidiites Make Outpatient Treatment Too Risky , Need Close Monitoring Due to Risk of Patient Decompensation, Risk of Complication if Not Cared For in Hospital
[2017-09-29] MEDS: ISOSORBIDE MONONITRATE 30 MG TAB.ER.24H PO SCH (13:22)
[2017-09-29] MEDS: IPRATROPIUM/ALBUTEROL 0.5-2.5 MG/3 ML AMPUL NEB PRN ×2 (17:25→21:27)
[2017-09-29] MEDS: TAMSULOSIN HCL 0.4 MG CAP.SR.24H PO SCH (18:31)
--- NOTE | 2017-09-29 20:18 | PDOC PROGRESS REPORT ---
Subjective Progress Note for:: 09/29/17 Subjective:: Patient seems to be doing better with gradual improvement. Patient had no further chest pain. Troponin set showing a downward trend. EKG shows no acute ST-T wave changes. Patient denying any PND, orthopnea. Patient denied any sustained palpitations, dizziness, syncope, near syncope. Patient denying any fever chills. Patient denying any other significant discomfort. Patient is maintaining sinus rhythm. Review of systems: Rest review of systems negative. Medications: Medications have been reviewed. Reason For Visit: PULMONARY EMBOLISM Physical Exam Vital Signs: Temp Pulse Resp BP Pulse Ox 97.5 F 98 18 107/74 98 09/29/17 17:00 09/29/17 17:00 09/29/17 17:00 09/29/17 17:00 09/29/17 17:00 Intake & Output 09/28/17 09/29/17 09/30/17 06:59 06:59 06:59 Intake Total 1745 671 450 Output Total 100 Balance 1745 571 450 Weight 107.3 kg 107.2 kg Exam: GENERAL: well-nourished and in no acute distress. Alert and oriented x3 HEAD: Atraumatic, normocephalic. EYES: Pupils equal round and reactive to light, extraocular movements intact, sclera anicteric, conjunctiva are normal. ENT: TMs normal, nares patent, oropharynx clear without exudates. Moist mucous membranes. No oral ulcerations or bleeding gums noted NECK: supple without lymphadenopathy. Trachea is central. No cervical or axillary lymphadenopathy noted. Carotids are 2+, JVD WNL LUNGS: Respiration seems nonlabored, no significant accessory muscle action noted. Bibasilar fine crackles are noted. No wheezes rales or rhonchi noted. No significant dullness noted on percussion. CHEST: Palpation of the chest wall shows no significant chest wall tenderness. 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 ABDOMEN: Soft, no significant tenderness appreciated, normoactive bowel sounds. No guarding, no rebound. No rigidity noted . No masses appreciated. EXTREMITIES: Pedal pulses are 1-2+, no calf tenderness noted. No clubbing or cyanosis. 1-2+ pedal edema noted NEUROLOGICAL: Focused neurological exam showed no significant neurologic deficit. Normal speech, no focal weakness appreciated. PSYCH: Normal mood, normal affect. Judgment and insight not checked. SKIN: No significant ecchymosis, skin is noted to be warm. MUSCULOSKELETAL EXAM: No significant acute joint swelling noted. Results Laboratory Results: 09/26/17 05:10 09/26/17 05:10 09/28/17 09/28/17 10:04 15:40 Troponin I 0.114 0.089 EKG Comments: Telemetry shows sinus rhythm without any sustained tachycardia or bradycardia. Impressions: Chest X-Ray 09/25/17 14:32 IMPRESSION: Stable marked cardiomegaly Chest/Abdomen CTA 09/25/17 15:49 IMPRESSION: 1. There is limited pulmonary embolus in the right upper lobe pulmonary artery. 2. Small pleural effusions. 3. Cardiomegaly. 4. Enlargement of the left lobe of the thyroid. Assessment & Plan - Diagnosis (1) Chest pain Qualifiers: Chest pain type: unspecified Qualified Code(s): R07.9 - Chest pain, unspecified Is this a current diagnosis for this admission?: Yes (2) Coronary artery disease Qualifiers: Coronary Disease-Associated Artery/Lesion type: [place] artery [place] vs. transplanted heart: [place] heart Associated angina: angina presence unspecified Qualified Code(s): I25.10 - Atherosclerotic heart disease of [place] coronary artery without angina pectoris Is this a current diagnosis for this admission?: Yes (3) Acute on chronic systolic (congestive) heart failure Is this a current diagnosis for this admission?: Yes (4) Essential hypertension Is this a current diagnosis for this admission?: Yes (5) VIOLETA (obstructive sleep apnea) Is this a current diagnosis for this admission?: Yes (6) Type 2 diabetes mellitus Qualifiers: Diabetes mellitus salvage determiner insulin use: without salvage determiner use Diabetes mellitus complication status: with unspecified complications Qualified Code(s) : E11.8 - Type 2 diabetes mellitus with unspecified complications Is this a current diagnosis for this admission?: Yes - Notes Notes: Chest pain: Resolved. Possibly gastroesophageal in etiology. Patient was placed on Protonix IV yesterday. Coronary artery disease: Patient is status post stent placement. Acute on chronic systolic heart failure: Have ordered a 2D echo which has not yet been done. Continue patient on current dose of diuretic therapy. Will optimize therapy further after 2D echocardiogram results. Hypertension: Blood pressure reasonably well compensated. Obstructive sleep apnea: Patient will benefit from nightly BiPAP/CPAP therapy. Diabetes: Currently under satisfactory control by hospitalist. - Time Time with patient: Greater than 35 minutes - CODE STATUS was discussed, patient remains full code. Surrogate decision-maker unchanged. Multiple medical problems were addressed. More than 50% of the time spent coordinating care, discussing management plans with involved caregivers. Management plans discussed with involved personnels. Medical decision making was of moderate to high complexity, patient's has multiple comorbidities. Medications reviewed and adjusted accordingly: Yes
[2017-09-30] MEDS: GABAPENTIN 100 MG CAPSULE PO SCH ×3 (06:17→20:04)
[2017-09-30] MEDS: RANOLAZINE 500 MG TAB.SR.12H PO SCH ×2 (06:17→17:39)
[2017-09-30] MEDS: PANTOPRAZOLE SODIUM 40 MG VIAL IV SCH ×2 (06:17→17:39)
[2017-09-30] MEDS: FUROSEMIDE INJ/PF 40 MG/4 ML SDV IV SCH ×2 (06:17→17:37)
[2017-09-30] MEDS: FERROUS SULFATE 325 MG TABLET PO SCH ×3 (08:03→17:39)
[2017-09-30] MEDS: IPRATROPIUM/ALBUTEROL 0.5-2.5 MG/3 ML AMPUL NEB PRN ×2 (08:16→17:21)
[2017-09-30] MEDS: DOCUSATE SODIUM 100 MG CAPSULE PO SCH (09:22)
[2017-09-30] MEDS: CYCLOSPORINE 0.05% OPH EMULSIO 0.4 ML DROPERETTE OU SCH ×2 (09:22→20:06)
[2017-09-30] MEDS: CARVEDILOL 12.5 MG TABLET PO SCH ×2 (09:22→20:04)
[2017-09-30] MEDS: APIXABAN 5 MG TABLET PO SCH ×2 (09:26→17:36)
[2017-09-30] MEDS: ASPIRIN 81 MG TABLET, CHEWABLE PO SCH (09:26)
[2017-09-30] MEDS: BUDESONIDE/FORMOTEROL 160-4.5 MCG 60 PUFF/6 GM MDI IH SCH ×2 (09:27→20:05)
--- NOTE | 2017-09-30 12:21 | PDOC PROGRESS REPORT ---
Subjective Progress Note for:: 09/30/17 Subjective:: Patient is seen on rounds. He is resting in the bedside recliner. He denies any chest pain, shortness of breath or dyspnea. He denies any nausea, vomiting or abdominal pain. He denies any significant arthralgias or myalgias. Remaining review of systems are negative Reason For Visit: Eliquis 5 mg bid x 3 mos Physical Exam Vital Signs: Temp Pulse Resp BP Pulse Ox 97.5 F 70 18 107/74 98 09/29/17 17:00 09/30/17 08:19 09/30/17 08:19 09/29/17 17:00 09/30/17 08:19 Intake & Output 09/29/17 09/30/17 10/01/17 06:59 06:59 06:59 Intake Total 671 460 Output Total 100 Balance 571 460 Weight 107.2 kg General appearance: PRESENT: no acute distress, obese, well-developed, well- nourished Head exam: PRESENT: atraumatic, normocephalic Eye exam: PRESENT: conjunctiva pink, EOMI, PERRLA. ABSENT: scleral icterus Ear exam: PRESENT: normal external ear exam Mouth exam: PRESENT: moist, neck supple, tongue midline Neck exam: ABSENT: carotid bruit, JVD, lymphadenopathy, thyromegaly Respiratory exam: PRESENT: clear to auscultation rahul. ABSENT: rales, rhonchi, wheezes Cardiovascular exam: PRESENT: RRR. ABSENT: diastolic murmur, rubs, systolic murmur Pulses: PRESENT: normal dorsalis pedis pul Vascular exam: PRESENT: normal capillary refill Rectal exam: PRESENT: deferred Extremities exam: PRESENT: full ROM. ABSENT: calf tenderness, clubbing, pedal edema Neurological exam: PRESENT: alert, awake, oriented to person, oriented to place , oriented to time, oriented to situation, CN II-XII grossly intact. ABSENT: motor sensory deficit Psychiatric exam: PRESENT: appropriate affect, normal mood. ABSENT: homicidal ideation, suicidal ideation Results Laboratory Results: 09/26/17 05:10 09/26/17 05:10 09/28/17 09/28/17 10:04 15:40 Troponin I 0.114 0.089 Impressions: Chest X-Ray 09/25/17 14:32 IMPRESSION: Stable marked cardiomegaly Chest/Abdomen CTA 09/25/17 15:49 IMPRESSION: 1. There is limited pulmonary embolus in the right upper lobe pulmonary artery. 2. Small pleural effusions. 3. Cardiomegaly. 4. Enlargement of the left lobe of the thyroid. Assessment & Plan - Diagnosis (1) Pulmonary embolism Qualifiers: Pulmonary embolism type: other Chronicity: acute Acute cor pulmonale presence: without acute cor pulmonale Qualified Code(s): I26.99 - Other pulmonary embolism without acute cor pulmonale Is this a current diagnosis for this admission?: Yes Plan: Continue eliquis bid for the next 3 months (2) Pleuritic chest pain Is this a current diagnosis for this admission?: Yes Plan: Secondary to PE (3) Coronary artery disease Qualifiers: Coronary Disease-Associated Artery/Lesion type: [place] artery [place] vs. transplanted heart: [place] heart Associated angina: angina presence unspecified Qualified Code(s): I25.10 - Atherosclerotic heart disease of [place] coronary artery without angina pectoris Is this a current diagnosis for this admission?: Yes Plan: Continue current medications (4) Acute on chronic systolic and diastolic heart failure, NYHA class 4 Is this a current diagnosis for this admission?: Yes Plan: Cardiology is following he is normotensive (5) Benign essential hypertension Is this a current diagnosis for this admission?: Yes Plan: Borderline hypotensive. 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: Diabetes mellitus shelter insulin use: without intermodal truck driver use Diabetes mellitus complication status: with unspecified complications Qualified Code(s) : E11.8 - Type 2 diabetes mellitus with unspecified complications Is this a current diagnosis for this admission?: Yes Plan: Continue current medications and sliding scale coverage - Time Time Spent with patient: 25-34 minutes Total Critical Time (Minutes): 15 Medications reviewed and adjusted accordingly: Yes Anticipated discharge: Other - Assisted Living facility
[2017-09-30] MEDS: ISOSORBIDE MONONITRATE 30 MG TAB.ER.24H PO SCH (13:33)
--- NOTE | 2017-09-30 14:54 | EKG REPORT ---
SEVERITY:- ABNORMAL ECG - SINUS RHYTHM PROBABLE LEFT ATRIAL ABNORMALITY IRBBB AND LPFB BORDERLINE R WAVE PROGRESSION, ANTERIOR LEADS CONSIDER OLD ANTERIOR SD. : Confirmed by: Zac Brandon MD 30-Sep-2017 14:53:23
--- NOTE | 2017-09-30 19:31 | PDOC PROGRESS REPORT ---
Subjective Progress Note for:: 09/30/17 Subjective:: Patient noted to be sitting at bedside chair. Noted to be comfortable. Patient seems to be doing better with gradual improvement. Patient had no further chest pain. Patient denying any PND, orthopnea. Patient denied any sustained palpitations, dizziness, syncope, near syncope. Patient denying any fever chills. Patient denying any other significant discomfort. Patient is maintaining sinus rhythm. Review of systems: Rest review of systems negative. Medications: Medications have been reviewed. Reason For Visit: PULMONARY EMBOLISM Physical Exam Vital Signs: Temp Pulse Resp BP Pulse Ox 98.3 F 83 18 102/80 99 09/30/17 16:00 09/30/17 17:21 09/30/17 17:21 09/30/17 16:00 09/30/17 17:21 Intake & Output 09/29/17 09/30/17 10/01/17 06:59 06:59 06:59 Intake Total 267 712 3427 Output Total 100 Balance 064 122 7855 Weight 107.2 kg Exam: GENERAL: well-nourished and in no acute distress. Alert and oriented x2 HEAD: Atraumatic, normocephalic. EYES: Pupils equal round and reactive to light, extraocular movements intact, sclera anicteric, conjunctiva are normal. ENT: TMs normal, nares patent, oropharynx clear without exudates. Moist mucous membranes. No oral ulcerations or bleeding gums noted NECK: supple without lymphadenopathy. Trachea is central. No cervical or axillary lymphadenopathy noted. Carotids are 2+, JVD WNL LUNGS: Respiration seems nonlabored, no significant accessory muscle action noted. Few bibasilar crackles and few a scattered wheezes rales or rhonchi noted. No significant dullness noted on percussion. CHEST: Palpation of the chest wall shows no significant chest wall tenderness. 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 ABDOMEN: Soft, no significant tenderness appreciated, normoactive bowel sounds. No guarding, no rebound. No rigidity noted . No masses appreciated. EXTREMITIES: Pedal pulses are 1-2+, no calf tenderness noted. No clubbing or cyanosis. 1-2+ pedal edema noted NEUROLOGICAL: Focused neurological exam showed no significant neurologic deficit. Normal speech, no focal weakness appreciated. PSYCH: Normal mood, normal affect. Judgment and insight not checked. SKIN: No significant ecchymosis, skin is noted to be warm. Superficial ulceration noted left leg. MUSCULOSKELETAL EXAM: No significant acute joint swelling noted. Results Laboratory Results: 09/26/17 05:10 09/26/17 05:10 09/28/17 09/28/17 09/30/17 10:04 15:40 13:54 Troponin I 0.114 0.089 0.065 EKG Comments: EKG shows sinus rhythm. No acute ST-T wave changes noted. Impressions: Chest X-Ray 09/25/17 14:32 IMPRESSION: Stable marked cardiomegaly Chest/Abdomen CTA 09/25/17 15:49 IMPRESSION: 1. There is limited pulmonary embolus in the right upper lobe pulmonary artery. 2. Small pleural effusions. 3. Cardiomegaly. 4. Enlargement of the left lobe of the thyroid. Assessment & Plan - Diagnosis (1) Chest pain Qualifiers: Chest pain type: unspecified Qualified Code(s): R07.9 - Chest pain, unspecified Is this a current diagnosis for this admission?: Yes (2) Coronary artery disease Qualifiers: Coronary Disease-Associated Artery/Lesion type: [place] artery [place] vs. transplanted heart: [place] heart Associated angina: angina presence unspecified Qualified Code(s): I25.10 - Atherosclerotic heart disease of [place] coronary artery without angina pectoris Is this a current diagnosis for this admission?: Yes (3) Acute on chronic systolic (congestive) heart failure Is this a current diagnosis for this admission?: Yes (4) Essential hypertension Is this a current diagnosis for this admission?: Yes (5) VIOLETA (obstructive sleep apnea) Is this a current diagnosis for this admission?: Yes (6) Type 2 diabetes mellitus Qualifiers: Diabetes mellitus [facility] insulin use: 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 Possibly gastroesophageal in etiology. Patient was placed on Protonix IV yesterday. Patient seems to be getting it only intermittently. May consider switch to p.o. Protonix or Prevacid. Coronary artery disease: Patient is status post stent placement. Acute on chronic systolic heart failure: Have ordered a 2D echo which has not yet been done. Continue patient on current dose of diuretic therapy. Will optimize therapy further after 2D echocardiogram results. Hypertension: Blood pressure reasonably well compensated. Obstructive sleep apnea: Patient will benefit from nightly BiPAP/CPAP therapy. Diabetes: Currently under satisfactory control by hospitalist.
[2017-09-30] MEDS: ACETAMINOPHEN 325 MG TABLET PO PRN (20:04)
[2017-09-30] MEDS: TAMSULOSIN HCL 0.4 MG CAP.SR.24H PO SCH (20:07)
[2017-10-01] MEDS: PANTOPRAZOLE SODIUM 40 MG VIAL IV SCH (05:54)
[2017-10-01] MEDS: GABAPENTIN 100 MG CAPSULE PO SCH (05:54)
[2017-10-01] MEDS: RANOLAZINE 500 MG TAB.SR.12H PO SCH (05:54)
[2017-10-01] MEDS: FUROSEMIDE INJ/PF 40 MG/4 ML SDV IV SCH (05:54)
[2017-10-01] MEDS: FERROUS SULFATE 325 MG TABLET PO SCH ×2 (08:08→11:24)
[2017-10-01 09:01] VITALS: BP 102/66
[2017-10-01] MEDS: DOCUSATE SODIUM 100 MG CAPSULE PO SCH (09:43)
[2017-10-01] MEDS: CYCLOSPORINE 0.05% OPH EMULSIO 0.4 ML DROPERETTE OU SCH (09:43)
[2017-10-01] MEDS: BUDESONIDE/FORMOTEROL 160-4.5 MCG 60 PUFF/6 GM MDI IH SCH (09:43)
[2017-10-01] MEDS: APIXABAN 5 MG TABLET PO SCH (09:44)
[2017-10-01] MEDS: ASPIRIN 81 MG TABLET, CHEWABLE PO SCH (09:44)
[2017-10-01] MEDS: CARVEDILOL 12.5 MG TABLET PO SCH (09:44)
[2017-10-01] MEDS: ACETAMINOPHEN 325 MG TABLET PO PRN (12:20)
--- NOTE | 2017-10-01 16:54 | PDOC TRANSFER SUMMARY ---
General - Admit/Disc Date/PCP Admission Date/Primary Care Provider: 09/25/17 18:31 Discharge Date: 10/01/17 - Discharge Diagnosis (1) Pulmonary embolism Is this a current diagnosis for this admission?: Yes Summary: We will need to be on Eliquis at least 3 months. Wean oxygen as tolerated (2) Acute on chronic systolic CHF (congestive heart failure), NYHA class 4 Is this a current diagnosis for this admission?: Yes Summary: Followed by cardiology this admission. Ranexa was added this admission (3) Benign essential hypertension Is this a current diagnosis for this admission?: Yes Summary: Home medications were continued (4) History of CVA (cerebrovascular accident) Is this a current diagnosis for this admission?: Yes Summary: With significant impairment - Additional Information Resuscitation Status: Full Code Discharge Diet: Cardiac, Diabetic Discharge Activity: Activity As Tolerated, Balance Activity w/Rest, Weigh Daily Prescriptions: Apixaban [Eliquis 5 mg Tablet] 5 mg PO BID #60 tablet Ranolazine [Ranexa 500 mg Tab.sr] 500 mg PO Q12A #60 tab.sr.12h Home Medications: Albuterol Sulfate [Proair HFA] 2 puff IH Q6HP PRN 08/01/17 Ascorbic Acid [Vitamin C 500 mg Tablet] 500 mg PO DAILY 08/01/17 Aspirin [Aspirin 81 mg Chewable Tablet] 81 mg PO DAILY 08/01/17 Cyclosporine [Restasis Droperette] 1 each OU Q12 08/01/17 Docusate Sodium [Colace 100 mg Capsule] 200 mg PO DAILY 08/01/17 Ferrous Sulfate [Feosol 325 mg Tablet] 325 mg PO MEALS 08/01/17 Lanolin Alcohol/Mo/W.pet/[place] [Eucerin Creme] 1 applic TP BIDP PRN 08/01/17 Metformin HCl [Glucophage 500 mg Tablet] 500 mg PO BIDBS 08/01/17 [place]-3 Acid Ethyl Esters [Lovaza 1 gm Capsule] 2 gm PO BID 08/01/17 Omeprazole 20 mg PO Q6AM 08/01/17 Tamsulosin HCl [Flomax] 0.4 mg PO QPM 08/01/17 Acetaminophen [Tylenol 325 mg Tablet] 650 mg PO Q4HP PRN #30 tablet 08/20/17 Nitroglycerin [Nitrostat 0.4 mg (1/150 Gr) Tabs 25/Bottle] 1 tab SL Q5MP PRN # 10 bottle 08/20/17 Budesonide/Formoterol Fumarate [Symbicort HFA 160-4.5 mcg Inhaler 6 gm] 2 puff IH Q12 09/25/17 Bumetanide [Bumex 1 mg Tablet] 2 mg PO BID 09/25/17 Carvedilol [Coreg 12.5 mg Tablet] 12.5 mg PO Q12 09/25/17 Gabapentin [Neurontin 100 mg Capsule] 100 mg PO Q8 09/25/17 Lactulose [Cephulac Syrup 20 gm/30 ml Udcup] 10 ml PO QPM 09/25/17 Apixaban [Eliquis 5 mg Tablet] 5 mg PO BID #60 tablet 09/29/17 Ranolazine [Ranexa 500 mg Tab.sr] 500 mg PO Q12A #60 tab.sr.12h 09/29/17 History of Present Illness Admission Date/PCP: 09/25/17 18:31 Patient complains of: Short of breath, chest pain with inspiration History of Present Illness: ALEX KNIGHT is a 61 year old male history of CVA, CHF echo 07/2017 with EF 25-30%, history of CAD with recent hospitalization at [facility] for non-STEMI about 2 weeks ago, but patient reports he did not receive any stent. He now presented to the ED with complaint of chest pain worse with deep breaths. He admits to some shortness of breath. Evaluation in the ED significant for elevated d-dimer at 3.05. Follow-up chest CTA revealed pulmonary embolism right upper lobe pulmonary artery. Patient started on Lovenox. He had tachypnea at 30, tachycardic at 112. He was referred for admission for further evaluation and management. Patient admits to sometimes noncompliance with his diuretics medications because he does not want to have to urinate all the time when he is out and about. Currently denies fever or chills, no orthopnea or PND. He does have lower extremity swellings. Has dry cough. Hospital Course Hospital Course: He was initially treated with Lovenox. That has been transitioned over to Eliquis. He was seen in consultation by cardiology who added Ranexa because of his persistent chest pain. His oxygen requirements have slowly declined though he still requires 1-2 L per nasal cannula. He states he does not feel like he would be safe at home. A rehab placement has been arranged and he will be transferred there today. Physical Exam Vital Signs: Temp Pulse Resp BP Pulse Ox 97.6 F 87 22 H 102/66 99 10/01/17 11:45 10/01/17 11:45 10/01/17 11:45 10/01/17 11:45 10/01/17 11:45 Intake & Output 09/30/17 10/01/17 10/02/17 05:59 05:59 05:59 Intake Total 480 1299 10 Output Total 100 Balance 380 1299 10 Weight 236 lb 5.369 oz General appearance: PRESENT: no acute distress, obese Respiratory exam: PRESENT: clear to auscultation rahul Cardiovascular exam: PRESENT: RRR GI/Abdominal exam: PRESENT: soft Extremities exam: ABSENT: other - No edema Neurological exam: PRESENT: alert, other - Significant dysarthria Psychiatric exam: PRESENT: appropriate affect Skin exam: PRESENT: warm Results Laboratory Results: 09/26/17 05:10 09/26/17 05:10 09/28/17 09/28/17 09/30/17 10:04 15:40 13:54 Troponin I 0.114 0.089 0.065 Impressions: Chest X-Ray 09/25/17 14:32 IMPRESSION: Stable marked cardiomegaly Chest/Abdomen CTA 09/25/17 15:49 IMPRESSION: 1. There is limited pulmonary embolus in the right upper lobe pulmonary artery. 2. Small pleural effusions. 3. Cardiomegaly. 4. Enlargement of the left lobe of the thyroid. Qualifiers - * PATIENT BEING DISCHARGED WITH ANY OF THE FOLLOWING DIAGNOSIS: No, Heart Failure HF Pt being discharged on ACEI for LVEF less than 40%?: No Reason(s) for not prescribing ACEI:: Medical Contraindication, Adverse reaction to drug HF Pt being discharged on [facility] for LVEF less than 40%?: No Reason(s) for not prescribing [facility]BS:: Medical Contraindication, Adverse reaction to drug HF Pt with Afib discharged with Warfarin?: No Reason(s) for not prescribing Warfarin:: Not indicated HF Pt discharged on evidence-based Beta M[place]:: Yes
--- NOTE | 2017-10-01 20:12 | PDOC PROGRESS REPORT ---
Subjective Progress Note for:: 10/01/17 Subjective:: Patient noted to be sitting at bedside chair. Noted to be comfortable. Patient was seen on morning rounds. A 2D echo was reordered but patient continued to decline. Patient had no further chest pain. Patient denying any PND, orthopnea. Patient denied any sustained palpitations, dizziness, syncope, near syncope. Patient denying any fever chills. Patient denying any other significant discomfort. Patient is maintaining sinus rhythm. Review of systems: Rest review of systems negative. Medications: Medications have been reviewed. Reason For Visit: PULMONARY EMBOLISM Physical Exam Vital Signs: Temp Pulse Resp BP Pulse Ox 97.6 F 87 22 H 102/66 99 10/01/17 11:45 10/01/17 11:45 10/01/17 11:45 10/01/17 11:45 10/01/17 11:45 Intake & Output 09/30/17 10/01/17 10/02/17 06:59 06:59 06:59 Intake Total 460 1299 Balance 460 1299 Exam: GENERAL: well-nourished and in no acute distress. Alert and oriented x2 HEAD: Atraumatic, normocephalic. EYES: Pupils equal round and reactive to light, extraocular movements intact, sclera anicteric, conjunctiva are normal. ENT: TMs normal, nares patent, oropharynx clear without exudates. Moist mucous membranes. No oral ulcerations or bleeding gums noted NECK: supple without lymphadenopathy. Trachea is central. No cervical or axillary lymphadenopathy noted. Carotids are 2+, JVD WNL LUNGS: Respiration seems nonlabored, no significant accessory muscle action noted. Few bibasilar crackles and few scattered wheezes rales or rhonchi noted. No significant dullness noted on percussion. CHEST: Palpation of the chest wall shows no significant chest wall tenderness. 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 ABDOMEN: Soft, no significant tenderness appreciated, normoactive bowel sounds. No guarding, no rebound. No rigidity noted . No masses appreciated. EXTREMITIES: Pedal pulses are 1-2+, no calf tenderness noted. No clubbing or cyanosis. 1+ pedal edema noted. Superficial ulceration noted left lower leg. NEUROLOGICAL: Focused neurological exam showed no significant neurologic deficit. Normal speech, no focal weakness appreciated. PSYCH: Normal mood, normal affect. Judgment and insight not checked but patient has bipolar disorder.. SKIN: No significant ecchymosis, skin is noted to be warm. MUSCULOSKELETAL EXAM: No significant acute joint swelling noted. Results Laboratory Results: 09/26/17 05:10 09/26/17 05:10 09/28/17 09/28/17 09/30/17 10:04 15:40 13:54 Troponin I 0.114 0.089 0.065 Impressions: Chest X-Ray 09/25/17 14:32 IMPRESSION: Stable marked cardiomegaly Chest/Abdomen CTA 09/25/17 15:49 IMPRESSION: 1. There is limited pulmonary embolus in the right upper lobe pulmonary artery. 2. Small pleural effusions. 3. Cardiomegaly. 4. Enlargement of the left lobe of the thyroid. Assessment & Plan - Diagnosis (1) Chest pain Qualifiers: Chest pain type: unspecified Qualified Code(s): R07.9 - Chest pain, unspecified Is this a current diagnosis for this admission?: Yes (2) Coronary artery disease Qualifiers: Coronary Disease-Associated Artery/Lesion type: [place] artery [place] vs. transplanted heart: [place] heart Associated angina: angina presence unspecified Qualified Code(s): I25.10 - Atherosclerotic heart disease of [place] coronary artery without angina pectoris Is this a current diagnosis for this admission?: Yes (3) Acute on chronic systolic (congestive) heart failure Is this a current diagnosis for this admission?: Yes (4) Essential hypertension Is this a current diagnosis for this admission?: Yes (5) VIOLETA (obstructive sleep apnea) Is this a current diagnosis for this admission?: Yes (6) Type 2 diabetes mellitus Qualifiers: Diabetes mellitus group home insulin use: without group home use Diabetes mellitus complication status: with unspecified complications Qualified Code(s) : E11.8 - Type 2 diabetes mellitus with unspecified complications Is this a current diagnosis for this admission?: Yes - Notes Notes: Chest pain: Resolved. Possibly gastroesophageal in etiology. Continue proton pump inhibitor. So far EKGs are negative. Enzyme has trending down pattern. Patient refusing any further workup such as 2D echocardiogram. Coronary artery disease: Patient is status post stent placement. Acute on chronic systolic heart failure: Improved. Continue patient on current dose of diuretic therapy. It seems patient does not want to have echocardiogram done. Hypertension: Blood pressure reasonably well compensated. Obstructive sleep apnea: Patient will benefit from nightly BiPAP/CPAP therapy. Diabetes: Currently under satisfactory control by hospitalist. - Time Time with patient: 15-25 minutes Medications reviewed and adjusted accordingly: Yes
== END 2017-10-01 12:58 | DRG 175 ==
LOC: ER 13:48 → EH 18:31 → 3S 20:30
PROVIDERS: ADMIT Family Medicine; ATTEND Family Medicine
DX: I26.99 Other pulmonary embolism without acute cor pulmonale (principal); I50.23 Acute on chronic systolic (congestive) heart failure; I11.0 Hypertensive heart disease with heart failure; E11.42 Type 2 diabetes mellitus with diabetic polyneuropathy; E66.01 Morbid (severe) obesity due to excess calories; I25.10 Atherosclerotic heart disease of native coronary artery without angina pectoris; T50.1X6A Underdosing of loop [high-ceiling] diuretics, initial encounter; E78.5 Hyperlipidemia, unspecified; F43.10 Post-traumatic stress disorder, unspecified; F31.9 Bipolar disorder, unspecified; Z86.73 Personal history of transient ischemic attack (TIA), and cerebral infarction without residual deficits; I25.2 Old myocardial infarction; Z91.19 Patient's noncompliance with other medical treatment and regimen; Z79.02 Long term (current) use of antithrombotics/antiplatelets; Z68.38 Body mass index [BMI] 38.0-38.9, adult; Z79.82 Long term (current) use of aspirin; Z95.1 Presence of aortocoronary bypass graft; Z95.810 Presence of automatic (implantable) cardiac defibrillator; Z79.84 Long term (current) use of oral hypoglycemic drugs
CPT/HCPCS: 36415; 71045; 71275; 80048; 80053; 82962; 83880; 84484; 85025; 85379; 93005; 93010; 96374; 99285; J1650; J1815; J1940; J2060; J2270; J2405; J3490; J7620; S0164

== ENCOUNTER 2017-10-02 07:32 | Emergency (ER) | payer MEDICARE ==
--- NOTE | 2017-10-02 07:36 | ER Document Report ---
ED General - General Stated Complaint: CHEST PAIN Time Seen by Provider: 10/02/17 07:35 Mode of Arrival: Medic Information source: Patient, H Records Notes: 61 year old male history of CHF, STEMI, PE presents with complaint of chest pain that started this morning. It is located across his upper chest and he states the pain feels the same as when he had a STEMI 3 weeks ago. Pt also had dyspnea all day yesterday and complains of pain and swelling in both legs and feet. He was discharged yesterday after being treated for a PE. Denies headache , nausea/vomiting, arm pain, or any other aches/pains. TRAVEL OUTSIDE OF THE [place] IN LAST 30 DAYS: No - HPI Onset: Yesterday Onset/Duration: Persistent Quality of pain: Achy Severity: Mild Pain Level: 1 Associated symptoms: Chest pain, Shortness of breath Exacerbated by: Movement Relieved by: Denies Similar symptoms previously: Yes Recently seen / treated by doctor: Yes - Related Data Allergies/Adverse Reactions: captopril [From Capoten] Allergy (Severe, Verified 07/30/17 17:44) Angioedema atorvastatin calcium [From Lipitor] Allergy (Intermediate, Verified 07/30/17 17: 44) Angioedema clopidogrel [From Plavix] Allergy (Verified 07/30/17 17:44) rosuvastatin [From Crestor] Allergy (Verified 07/30/17 17:44) simvastatin [From Zocor] Allergy (Verified 07/30/17 17:44) Angioedema Past Medical History - Social History Smoking Status: Never Smoker Cigarette use (# per day): No Chew tobacco use (# tins/day): No Smoking Education Provided: No Family History: Reviewed & Not Pertinent, CAD, DM, Hypertension, Thyroid Disfunction - Past Medical History Cardiac Medical History: Reports: Hx Congestive Heart Failure, Hx Coronary Artery Disease, Hx Heart Attack - 2009, Hx Hypercholesterolemia, Hx Hypertension Pulmonary Medical History: Reports: Hx Asthma, Hx Bronchitis, Hx COPD, Hx Sleep Apnea Neurological Medical History: Reports: Hx Cerebrovascular Accident - x 2. Denies: Hx Seizures Endocrine Medical History: Reports: Hx Diabetes Mellitus Type 1, Hx Diabetes Mellitus Type 2 Renal/ Medical History: Denies: Hx Peritoneal Dialysis Malignancy Medical History: GI Medical History: Reports: Hx Diverticulitis, Hx Gastroesophageal Reflux Disease Musculoskeltal Medical History: Reports Hx Arthritis, Reports Hx Musculoskeletal Deformity, Reports Hx Musculoskeletal Trauma Psychiatric Medical History: Reports: Hx Anxiety, Hx Post Traumatic Stress Disorder Denies: Hx Depression Infectious Medical History: Past Surgical History: Reports: Hx Abdominal Surgery - for diverticulitis, Hx Bowel Surgery - Colon resection due to diverticulitis, Hx Cardiac Catheterization, Hx Cardiac Surgery - 1984, ICD placement 2015, Hx Coronary Artery Bypass Graft, Hx Coronary Stent - 1984, Hx Thyroid Surgery, Other - AICD - Immunizations Immunizations up to date: Yes Hx Diphtheria, Pertussis, Tetanus Vaccination: Yes Hx Pneumococcal Vaccination: 05/26/10 Review of Systems - Review of Systems Notes: REVIEW OF SYSTEMS: CONSTITUTIONAL : Denies fever, chills, or sweats. Denies recent illness. EENT: Denies eye, ear, throat, or mouth pain or symptoms. Denies nasal or sinus congestion or discharge. Denies throat, tongue, or mouth swelling or difficulty swallowing. CARDIOVASCULAR: Chest pain across. RESPIRATORY: Admits to shortness of breath GASTROINTESTINAL: Denies abdominal pain or distention. Denies nausea, vomiting , or diarrhea. Denies blood in vomitus, stools, or per rectum. Denies black, tarry stools. Denies constipation. GENITOURINARY: Denies difficulty urinating, painful urination, burning, frequency, blood in urine, or discharge. MUSCULOSKELETAL: Denies back or neck pain or stiffness. Denies joint pain or swelling. SKIN: Denies rash, lesions or sores. HEMATOLOGIC : Denies easy bruising or bleeding. LYMPHATIC: Denies swollen, enlarged glands. NEUROLOGICAL: Denies confusion or altered mental status. Denies passing out or loss of consciousness. Denies dizziness or lightheadedness. Denies headache. Denies weakness or paralysis or loss of use of either side. Denies problems with gait or speech. Denies sensory loss, numbness, or tingling. Denies seizures. PSYCHIATRIC: Denies anxiety or stress. Denies depression, suicidal ideation, or homicidal ideation. ALL OTHER SYSTEMS REVIEWED AND NEGATIVE. Dictation was performed using [employer] recognition software PHYSICAL EXAMINATION: GENERAL: Well-appearing, well-nourished and in no acute distress. HEAD: Atraumatic, normocephalic. EYES: Pupils equal round and reactive to light, extraocular movements intact, sclera anicteric, conjunctiva are normal. ENT: Nares patent, oropharynx clear without exudates. Moist mucous membranes. NECK: Normal range of motion, supple without lymphadenopathy LUNGS: Patient currently on 3 L nasal cannula breath sounds clear to auscultation bilaterally and equal. No wheezes rales or rhonchi. HEART: Regular rate and rhythm without murmurs ABDOMEN: Soft, nontender, nondistended abdomen. No guarding, no rebound. No masses appreciated. Musculoskeletal: 2+ pitting edema bilateral lower extremities NEUROLOGICAL: Baseline impairment of speech PSYCH: Normal mood, normal affect. SKIN: Warm, Dry, normal turgor, no rashes or lesions noted. Physical Exam - Vital signs Vitals: BP 92/70 L 10/02/17 07:44 Course - Re-evaluation Re-evalutation: 10/02/17 08:22 Given recent NSTEMI pulmonary emboli, extensive workup pending 10/02/17 09:35 Patient's workup was quite benign, it appears the real issue is that he was discharged to the [facility] yesterday but unfortunately no oxygen was provided to him, and patient continued to be short of breath and that is why he came in. I will have social worker aide involved to provide with oxygen Otherwise he is well-appearing no distress After performing a Medical Screening Examination, I estimate there is LOW risk for ACUTE CORONARY SYNDROME, WORSENING PULMONARY EMBOLI, RESPIRATORY FAILURE, SEPSIS OR MENINGITIS, thus I consider the discharge disposition reasonable. I have reevaluated this patient multiple times and no significant life threatening changes are noted. The patient and I have discussed the diagnosis and risks, and we agree with discharging home with close follow-up. We also discussed returning to the Emergency Department immediately if new or worsening symptoms occur. We have discussed the symptoms which are most concerning (e.g., changing or worsening pain, trouble swallowing or breathing, neck stiffness, fever) that necessitate immediate return. - Vital Signs Vital signs: Temp Pulse Resp BP Pulse Ox 98.2 F 17 95/64 L 93 10/02/17 08:08 10/02/17 09:02 10/02/17 08:03 10/02/17 09:01 - Laboratory Result Diagrams: 10/02/17 08:30 10/02/17 08:30 Laboratory results interpreted by me: 10/02/17 10/02/17 08:30 08:30 MCH 26.1 L RDW 17.4 H Monocytes % (Manual) 17 H BUN 56 H Creatinine 1.80 H Est GFR ( Amer) 46 L Est GFR (Non-Af Amer) 38 L Glucose 123 H Direct Bilirubin 0.5 H Creatine Kinase 37 L Total Protein 6.2 L - Diagnostic Test Radiology reviewed: Image reviewed - Chest x-ray notes cardiomegaly two-view, Reports reviewed Discharge - Discharge Clinical Impression: DEANNA (acute kidney injury), Acute on chronic systolic and diastolic heart failure, NYHA class 4, Shortness of breath Chest pain Qualifiers: Chest pain type: unspecified Qualified Code(s): R07.9 - Chest pain, unspecified Condition: Stable Disposition: HOME, SELF-CARE Instructions: Chest Pain of Unclear Cause ([facility]) Additional Instructions: Follow up with your physician tomorrow for further care or return to the ED IMMEDIATELY if symptoms worsen or new concerns occur. If you cannot afford to follow up with your primary care physician a list of low cost clinics have been provided at the end of your discharge papers as well. You will be provided with services for home oxygen
[2017-10-02 08:16] VITALS: BP 95/64
--- NOTE | 2017-10-02 08:28 | RADIOLOGY REPORT (SQ) ---
EXAM DESCRIPTION: CHEST SINGLE VIEW COMPLETED DATE/TIME: 10/02/2017 7:54 am REASON FOR STUDY: chest pain COMPARISON: 09/25/2017 EXAM PARAMETERS: NUMBER OF VIEWS: One view. TECHNIQUE: Single frontal radiographic view of the chest acquired. RADIATION DOSE: NA LIMITATIONS: None. FINDINGS: LUNGS AND PLEURA: No opacities, masses or pneumothorax. No pleural effusion. MEDIASTINUM AND HILAR STRUCTURES: No masses. Contour normal. HEART AND VASCULAR STRUCTURES: Cardiac enlargement. No overt failure. BONES: No acute findings. HARDWARE: Pacemaker defibrillator. OTHER: No other significant finding. IMPRESSION: Cardiac enlargement without failure. TECHNICAL DOCUMENTATION: JOB ID: [id number] [employer]- All Rights Reserved Reading location - IP/workstation name: [email or web address]
[2017-10-02] MEDS ORDERED: IPRATROPIUM/ALBUTEROL 0.5-2.5 MG/3 ML AMPUL NEB ONE (08:43)
[2017-10-02 08:52] LABS: HEMATOCRIT 43.6 % (37.9-51.0); HEMOGLOBIN 14.1 g/dL (13.5-17.0); MEAN CORPUSCULAR HEMOGLOBIN 26.1 pg (27.0-33.4); MEAN CORPUSCULAR HGB CONC 32.4 g/dL (32.0-36.0); MEAN CORPUSCULAR VOLUME 81 fl (80-97); PLATELET COUNT 260 10^3/uL (150-450); RED CELL DISTRIBUTION WIDTH 17.4 % (11.5-14.0)
[2017-10-02 09:12] LABS: ALANINE AMINOTRANSFERASE 48 U/L (21-72); ALBUMIN 3.6 g/dL (3.5-5.0); ALKALINE PHOSPHATASE 91 U/L (38-126); ANION GAP 15 (5-19); ASPARTATE AMINO TRANSFERASE 34 U/L (17-59); BILIRUBIN,DIRECT 0.5 mg/dL (0.0-0.4); BLOOD UREA NITROGEN 56 mg/dL (7-20); CALCIUM 9.4 mg/dL (8.4-10.2); CARBON DIOXIDE 26 mmol/L (22-30); CHLORIDE 98 mmol/L (98-107); CREATINE KINASE 37 U/L (55-170); GLUCOSE 123 mg/dL (75-110); POTASSIUM 4.8 mmol/L (3.6-5.0); SODIUM 138.8 mmol/L (137-145); TOTAL PROTEIN 6.2 g/dL (6.3-8.2)
[2017-10-02 09:18] LABS: ABSOLUTE LYMPHOCYTES# (MANUAL) 1.2 10^3/uL (0.5-4.7); ABSOLUTE NEUTROPHILS# (MANUAL) 3.6 10^3/uL (1.7-8.2); ANISOCYTOSIS 2+; BASOPHILS % (MANUAL) 0 % (0-2); EOSINOPHILS % (MANUAL) 3 % (0-6); HYPOCHROMASIA SLIGHT; LYMPHOCYTES % (MANUAL) 20 % (13-45); MONOCYTES % (MANUAL) 17 % (3-13); OVALOCYTES 1+; PLATELET COMMENT ADEQUATE; POIKILOCYTOSIS 1+; POLYCHROMASIA SLIGHT; SEGMENTED NEUTROPHILS % (MAN) 60 % (42-78); TOTAL CELLS COUNTED 100
[2017-10-02 09:24] LABS: CREATINE KINASE MB 1.56 ng/mL (<4.55)
[2017-10-02 09:26] LABS: TROPONIN I 0.088 ng/mL
--- NOTE | 2017-10-02 13:24 | EKG REPORT ---
SEVERITY:- ABNORMAL ECG - SINUS RHYTHM VENTRICULAR PREMATURE COMPLEX PROBABLE LEFT ATRIAL ABNORMALITY LOW VOLTAGE THROUGHOUT CONSIDER RIGHT VENTRICULAR HYPERTROPHY CONSIDER ANTERIOR INFARCT BORDERLINE PROLONGED QT INTERVAL : Confirmed by: Zac Brandon MD 02-Oct-2017 13:23:02
== END 2017-10-02 13:15 | disposition home or self-care (01) ==
LOC: ER 07:32
DX: R07.9 Chest pain, unspecified (principal); R06.02 Shortness of breath; N17.9 Acute kidney failure, unspecified; I50.9 Heart failure, unspecified; E78.00 Pure hypercholesterolemia, unspecified; I10 Essential (primary) hypertension; J44.9 Chronic obstructive pulmonary disease, unspecified; E11.9 Type 2 diabetes mellitus without complications; Z86.73 Personal history of transient ischemic attack (TIA), and cerebral infarction without residual deficits; I25.2 Old myocardial infarction; Z95.810 Presence of automatic (implantable) cardiac defibrillator
CPT/HCPCS: 93005; 99285; 36415; 82553; 82550; 85025; 80053; 84484; 71045; 93010; A9270; J7620

== ENCOUNTER 2017-10-03 18:15 | Emergency (ER) | payer MEDICARE ==
--- NOTE | 2017-10-03 18:44 | EKG REPORT ---
SEVERITY:- ABNORMAL ECG - SINUS RHYTHM PROBABLE LEFT ATRIAL ABNORMALITY LOW VOLTAGE THROUGHOUT CONSIDER RIGHT VENTRICULAR HYPERTROPHY CONSIDER INFERIOR INFARCT CONSIDER ANTERIOR INFARCT BORDERLINE PROLONGED QT INTERVAL : Confirmed by: Zac Brandon MD 03-Oct-2017 18:43:49
--- NOTE | 2017-10-03 20:06 | ER Document Report ---
ED General - General Chief Complaint: Chest Pain Stated Complaint: CHEST PAIN Time Seen by Provider: 10/03/17 18:30 Notes: Patient is a 61-year-old male with a past medical history of PE, currently anticoagulated, coronary artery disease, recent history of an NSTEMI 2 weeks ago with no stent placement on catheterization at that time, recent hospitalization for an acute pulmonary embolus who presents with complaints of chest discomfort. The patient is a very difficult historian due to language impairment and cognitive impairment. However his report is that for the past 4- 5 hours he has been having a left-sided chest pressure that does not radiate. He denies any associated nausea, vomiting or diaphoresis. He states this feels the same as the chest pain that prompted to come to the emergency department yesterday. The patient reports that he lives at home alone although this is not correct as the patient is currently staying at [facility]. [facility] did contact the emergency department state that his designated power of blocking machine operator second did not authorize the transfer to the emergency department and apparently the patient is not allowed to make this decision on his own. Nonetheless the patient is here and we have subsequently initiated a workup per his request. Nothing improves or worsens his pain. He denies any pain at the time of my assessment. TRAVEL OUTSIDE OF THE [place] IN LAST 30 DAYS: No - Related Data Allergies/Adverse Reactions: captopril [From Capoten] Allergy (Severe, Verified 10/03/17 20:10) Angioedema atorvastatin calcium [From Lipitor] Allergy (Intermediate, Verified 10/03/17 20: 10) Angioedema clopidogrel [From Plavix] Allergy (Verified 10/03/17 20:10) rosuvastatin [From Crestor] Allergy (Verified 10/03/17 20:10) simvastatin [From Zocor] Allergy (Verified 10/03/17 20:10) Angioedema Past Medical History - General Information source: Patient, Transfer Record, [facility] Records - Social History Smoking Status: Former Smoker Frequency of alcohol use: None Drug Abuse: None Lives with: [facility] Family History: Reviewed & Not Pertinent, CAD, DM, Hypertension, Thyroid Disfunction - Past Medical History Cardiac Medical History: Reports: Hx Congestive Heart Failure, Hx Coronary Artery Disease, Hx Heart Attack - 2009, Hx Hypercholesterolemia, Hx Hypertension Pulmonary Medical History: Reports: Hx Asthma, Hx Bronchitis, Hx COPD, Hx Sleep Apnea Neurological Medical History: Reports: Hx Cerebrovascular Accident - x 2. Denies: Hx Seizures Endocrine Medical History: Reports: Hx Diabetes Mellitus Type 1, Hx Diabetes Mellitus Type 2 Renal/ Medical History: Denies: Hx Peritoneal Dialysis Malignancy Medical History: GI Medical History: Reports: Hx Diverticulitis, Hx Gastroesophageal Reflux Disease Musculoskeltal Medical History: Reports Hx Arthritis, Reports Hx Musculoskeletal Deformity, Reports Hx Musculoskeletal Trauma Psychiatric Medical History: Reports: Hx Anxiety, Hx Post Traumatic Stress Disorder Denies: Hx Depression Infectious Medical History: Past Surgical History: Reports: Hx Abdominal Surgery - for diverticulitis, Hx Bowel Surgery - Colon resection due to diverticulitis, Hx Cardiac Catheterization, Hx Cardiac Surgery - 1984, ICD placement 2015, Hx Coronary Artery Bypass Graft, Hx Coronary Stent - 1984, Hx Thyroid Surgery, Other - AICD - Immunizations Immunizations up to date: Yes Hx Diphtheria, Pertussis, Tetanus Vaccination: Yes Hx Pneumococcal Vaccination: 05/26/10 Review of Systems - Review of Systems Notes: Constitutional: Negative for fever. HENT: Negative for sore throat. Eyes: Negative for visual changes. Cardiovascular: Positive for chest pain. Respiratory: Negative for shortness of breath. Gastrointestinal: Negative for abdominal pain, vomiting or diarrhea. Genitourinary: Negative for dysuria. Musculoskeletal: Negative for back pain. Skin: Negative for rash. Neurological: Negative for headaches, weakness or numbness. 10 point ROS negative except as marked above and in HPI. Physical Exam - Vital signs Vitals: Temp Pulse Resp BP Pulse Ox 97.7 F 82 20 116/81 92 10/03/17 18:31 10/03/17 18:31 10/03/17 18:31 10/03/17 18:31 10/03/17 18:31 Interpretation: Normal Notes: PHYSICAL EXAMINATION: GENERAL: Well-appearing, well-nourished and in no acute distress. HEAD: Atraumatic, normocephalic. EYES: Pupils equal round and reactive to light, extraocular movements intact, sclera anicteric, conjunctiva are normal. ENT: nares patent, oropharynx clear without exudates. Moist mucous membranes. NECK: Normal range of motion, supple without lymphadenopathy LUNGS: Breath sounds clear to auscultation bilaterally and equal. No wheezes rales or rhonchi. HEART: Regular rate and rhythm without murmurs ABDOMEN: Soft, nontender, normoactive bowel sounds. No guarding, no rebound. No masses appreciated. EXTREMITIES: Normal range of motion, no pitting or edema. No cyanosis. NEUROLOGICAL: Moves all extremities spontaneously. Expressive aphasia which is apparently baseline PSYCH: Alert, oriented, some degree of cognitive impairment based on his inaccuracy of history reporting. SKIN: Warm, Dry, normal turgor, no rashes or lesions noted. Course - Re-evaluation Re-evalutation: 10/03/17 20:03 Patient presents with complaints of chest pressure this is the second visit since being discharged 2 days ago. Patient is reporting that he has had discomfort for the past 4 hours. Patient tells me he lives by himself but review of documentation discussion with [facility] hospitalist confirms that this is not accurate, that the patient does live at [facility] and does have supplemental oxygen available to him. Patient was seen yesterday for same complaints. Will perform a repeat troponin, chest x-ray, basic laboratories and if this is unremarkable plan for return to his facility. 2300 Troponin has down trended from yesterday. The patient has been resting comfortably. At this time will discharge with return precautions and follow-up recommendations. Verbal discharge instructions given a the bedside and opportunity for questions given. Medication warnings reviewed. Patient is in agreement with this plan and has verbalized understanding of return precautions and the need for primary care follow-up in the next 24-72 hours. - Vital Signs Vital signs: Temp Pulse Resp BP Pulse Ox 97.6 F 81 18 116/86 H 97 10/04/17 01:50 10/04/17 01:50 10/04/17 01:50 10/04/17 01:50 10/04/17 01:50 - Laboratory Result Diagrams: 10/03/17 20:28 10/03/17 20:28 Laboratory results interpreted by me: 10/03/17 10/03/17 20:28 20:28 RBC 5.80 H MCH 25.8 L RDW 17.6 H Monocytes % 19.1 H BUN 55 H Creatinine 1.60 H Est GFR ( Amer) 53 L Est GFR (Non-Af Amer) 44 L Glucose 130 H - Diagnostic Test Radiology reviewed: Image reviewed, Reports reviewed Radiology results interpreted by me: 10/03/17 21:02 Chest x-ray: Cardiomegaly, unchanged from prior - EKG Interpretation by Me Additional EKG results interpreted by me: 10/03/17 21:05 Sinus rhythm. Rate 82. Low voltage: No ST elevations or depressions. Unchanged from yesterday. QTC 482. Discharge - Discharge Clinical Impression: Chest pain Qualifiers: Chest pain type: unspecified Qualified Code(s): R07.9 - Chest pain, unspecified Condition: Stable Disposition: HOME-SNF (ED ONLY) Additional Instructions: Your labs today are unchanged from prior. Chest x-ray is likewise unchanged. Please return for any additional concerns you may have.
--- NOTE | 2017-10-03 20:39 | RADIOLOGY REPORT (SQ) ---
EXAM DESCRIPTION: CHEST SINGLE VIEW COMPLETED DATE/TIME: 10/03/2017 8:09 pm REASON FOR STUDY: chest pain COMPARISON: None. NUMBER OF VIEWS: One view. TECHNIQUE: Single frontal radiographic view of the chest acquired. LIMITATIONS: None. FINDINGS: LUNGS AND PLEURA: No opacities, masses or pneumothorax. No pleural effusion. MEDIASTINUM AND HILAR STRUCTURES: No masses. Contour normal. HEART AND VASCULAR STRUCTURES: Heart enlarged without failure. Normal vasculature. BONES: No acute findings. HARDWARE: Pacemaker. OTHER: No other significant finding. IMPRESSION: HEART ENLARGED WITHOUT FAILURE. NO OTHER SIGNIFICANT RADIOGRAPHIC FINDING IN THE CHEST. TECHNICAL DOCUMENTATION: JOB ID: [id number] [employer]- All Rights Reserved Reading location - IP/workstation name: [email or web address]
[2017-10-03 20:40] LABS: ABSOLUTE BASOPHILS # (AUTO) 0.1 10^3/uL (0.0-0.2); ABSOLUTE EOSINOPHILS # (AUTO) 0.1 10^3/uL (0.0-0.6); ABSOLUTE LYMPHOCYTES (AUTO) 0.8 10^3/uL (0.5-4.7); ABSOLUTE NEUT (AUTO) 3.4 10^3/uL (1.7-8.2); BASOPHILS % (AUTO) 1.1 % (0-2); EOSINOPHILS % (AUTO) 1.4 % (0-6); HEMATOCRIT 46.6 % (37.9-51.0); LYMPHOCYTES % (AUTO) 15.4 % (13-45); MEAN CORPUSCULAR HEMOGLOBIN 25.8 pg (27.0-33.4); MEAN CORPUSCULAR HGB CONC 32.1 g/dL (32.0-36.0); MEAN CORPUSCULAR VOLUME 80 fl (80-97); MONOCYTES % (AUTO) 19.1 % (3-13); PLATELET COUNT 261 10^3/uL (150-450); RED CELL DISTRIBUTION WIDTH 17.6 % (11.5-14.0); TOTAL CELLS COUNTED % (AUTO) 100 %; WHITE BLOOD COUNT 5.4 10^3/uL (4.0-10.5)
[2017-10-03 20:59] LABS: ANION GAP 14 (5-19); BLOOD UREA NITROGEN 55 mg/dL (7-20); CALCIUM 9.4 mg/dL (8.4-10.2); CARBON DIOXIDE 28 mmol/L (22-30); CHLORIDE 98 mmol/L (98-107); GLUCOSE 130 mg/dL (75-110); POTASSIUM 4.9 mmol/L (3.6-5.0); SODIUM 140.1 mmol/L (137-145)
[2017-10-04 02:05] VITALS: BP 116/86
== END 2017-10-04 01:55 ==
LOC: ER 18:15
DX: I26.99 Other pulmonary embolism without acute cor pulmonale (principal); Z79.01 Long term (current) use of anticoagulants; R07.89 Other chest pain; I51.7 Cardiomegaly; I25.2 Old myocardial infarction; I25.10 Atherosclerotic heart disease of native coronary artery without angina pectoris; J44.9 Chronic obstructive pulmonary disease, unspecified; E11.9 Type 2 diabetes mellitus without complications; Z88.8 Allergy status to other drugs, medicaments and biological substances
CPT/HCPCS: 36415; 71045; 80048; 84484; 85025; 93005; 93010; 99285

== ENCOUNTER 2017-10-06 09:17 | Emergency (ER) | payer MEDICARE ==
--- NOTE | 2017-10-06 09:36 | ER Document Report ---
ED Medical Screen (RME) - General Chief Complaint: Urinary Problem Stated Complaint: BLOOD IN URINE Time Seen by Provider: 10/06/17 09:26 Notes: RAPID MEDICAL EVALUATION DISCLOSURE I have seen this patient as part of a Rapid Medical Evaluation and, if applicable, placed any initially appropriate orders. The patient will be seen and fully evaluated, including a full history and physical exam, by a provider ( in Main ED or Fast Track) when a room becomes available. 61-year-old male brought by son from the correction for bloody urine. Patient states around 7 hours ago, he started having dark yellow/orange urine but did not have any garcia redness to the urine. He also has some lower abdominal pain over his bladder. He does not take blood thinners other than aspirin. He also complains that he tried standing up yesterday and tripped falling forward but was able to brace himself. He does not have any pain from the fall and did not impact his head/neck. EXAM Mild suprapubic TTP No lower extremity TTP TRAVEL OUTSIDE OF THE [place] IN LAST 30 DAYS: No - Related Data Allergies/Adverse Reactions: captopril [From Capoten] Allergy (Severe, Verified 10/06/17 09:27) Angioedema atorvastatin calcium [From Lipitor] Allergy (Intermediate, Verified 10/06/17 09: 27) Angioedema clopidogrel [From Plavix] Allergy (Verified 10/06/17 09:27) rosuvastatin [From Crestor] Allergy (Verified 10/06/17 09:27) simvastatin [From Zocor] Allergy (Verified 10/06/17 09:27) Angioedema Past Medical History - Social History Family history: None - Past Medical History Cardiac Medical History: Reports: Hx Congestive Heart Failure, Hx Coronary Artery Disease, Hx Heart Attack - 2009, Hx Hypercholesterolemia, Hx Hypertension Pulmonary Medical History: Reports: Hx Asthma, Hx Bronchitis, Hx COPD, Hx Sleep Apnea Neurological Medical History: Reports: Hx Cerebrovascular Accident - x 2. Denies: Hx Seizures Endocrine Medical History: Reports: Hx Diabetes Mellitus Type 1, Hx Diabetes Mellitus Type 2 Renal/ Medical History: Denies: Hx Peritoneal Dialysis Malignancy Medical History: GI Medical History: Reports: Hx Diverticulitis, Hx Gastroesophageal Reflux Disease Musculoskeltal Medical History: Reports Hx Arthritis, Reports Hx Musculoskeletal Deformity, Reports Hx Musculoskeletal Trauma Psychiatric Medical History: Reports: Hx Anxiety, Hx Post Traumatic Stress Disorder Denies: Hx Depression Infectious Medical History: Past Surgical History: Reports: Hx Abdominal Surgery - for diverticulitis, Hx Bowel Surgery - Colon resection due to diverticulitis, Hx Cardiac Catheterization, Hx Cardiac Surgery - 1984, ICD placement 2015, Hx Coronary Artery Bypass Graft, Hx Coronary Stent - 1984, Hx Thyroid Surgery, Other - AICD - Immunizations Immunizations up to date: Yes Hx Diphtheria, Pertussis, Tetanus Vaccination: Yes History of Influenza Vaccine for 02/2017 - 07/2017 Season: Refused Physical Exam - Vital signs Vitals: Temp Pulse Resp BP Pulse Ox 97.6 F 70 18 110/69 95 10/06/17 09:32 10/06/17 09:32 10/06/17 09:32 10/06/17 09:32 10/06/17 09:32 Course - Vital Signs Vital signs: Temp Pulse Resp BP Pulse Ox 97.6 F 70 18 110/69 95 10/06/17 09:32 10/06/17 09:32 10/06/17 09:32 10/06/17 09:32 10/06/17 09:32
[2017-10-06] MEDS ORDERED: IPRATROPIUM/ALBUTEROL 0.5-2.5 MG/3 ML AMPUL NEB ONE (10:05)
[2017-10-06 10:18] LABS: APPEARANCE,URINE SLIGHTLY-CLOUDY; BILIRUBIN,URINE NEGATIVE (NEGATIVE); COLOR,URINE AMBER; GLUCOSE, URINE NEGATIVE (NEGATIVE); KETONES,URINE NEGATIVE (NEGATIVE); LEUKOCYTE ESTERASE,URINE NEGATIVE (NEGATIVE); NITRITE,URINE POSITIVE (NEGATIVE); PROTEIN,URINE 100 mg/dL (NEGATIVE); URINE SPECIFIC GRAVITY 1.015
[2017-10-06 10:28] LABS: HEMATOCRIT 45.7 % (37.9-51.0); HEMOGLOBIN 14.5 g/dL (13.5-17.0); MEAN CORPUSCULAR HEMOGLOBIN 25.6 pg (27.0-33.4); MEAN CORPUSCULAR HGB CONC 31.8 g/dL (32.0-36.0); MEAN CORPUSCULAR VOLUME 80 fl (80-97); PLATELET COUNT 243 10^3/uL (150-450); RED BLOOD COUNT 5.69 10^6/uL (4.35-5.55)
[2017-10-06 10:42] LABS: ANION GAP 14 (5-19); BLOOD UREA NITROGEN 48 mg/dL (7-20); CALCIUM 9.5 mg/dL (8.4-10.2); CARBON DIOXIDE 26 mmol/L (22-30); CHLORIDE 101 mmol/L (98-107); GLUCOSE 122 mg/dL (75-110); POTASSIUM 5.6 mmol/L (3.6-5.0); SODIUM 140.7 mmol/L (137-145)
[2017-10-06 11:08] LABS: ABSOLUTE LYMPHOCYTES# (MANUAL) 1.5 10^3/uL (0.5-4.7); ABSOLUTE MONOCYTES # (MANUAL) 0.9 10^3/uL (0.1-1.4); ABSOLUTE NEUTROPHILS# (MANUAL) 3.5 10^3/uL (1.7-8.2); ANISOCYTOSIS 2+; BASOPHILS % (MANUAL) 0 % (0-2); EOSINOPHILS % (MANUAL) 2 % (0-6); HYPOCHROMASIA 1+; LYMPHOCYTES % (MANUAL) 16 % (13-45); METAMYELOCYTES % (MANUAL) 1 % (0); MONOCYTES % (MANUAL) 15 % (3-13); NUCLEATED RED BLOOD CELLS 1 /100 WBC (0); PLATELET COMMENT ADEQUATE; PLATELET LARGE PRESENT; POLYCHROMASIA 1+; SEGMENTED NEUTROPHILS % (MAN) 57 % (42-78); TOTAL CELLS COUNTED 100
[2017-10-06] MEDS ORDERED: CEPHALEXIN 500 MG CAPSULE PO ONE (11:12)
[2017-10-06] MEDS ORDERED: ACETAMINOPHEN 325 MG TABLET PO ONE (11:20)
--- NOTE | 2017-10-06 12:01 | ER Document Report ---
ED General - General Chief Complaint: Urinary Problem Stated Complaint: BLOOD IN URINE Time Seen by Provider: 10/06/17 09:26 TRAVEL OUTSIDE OF THE [place] IN LAST 30 DAYS: No - HPI Patient complains to provider of: Blood and urine Notes: Patient coming in for evaluation of blood in his urine. Patient is very well- known to this provider and to ER staff. Patient recently admitted and placed on Eliquis due to a PE. Patient is a local care facility and is currently on oxygen. Patient states urine has been very dark center for blood. Patient denies any fevers chills nausea vomiting diarrhea. Denies any other complaints except for some shortness of breath and is requesting a breathing treatment. Patient also is requesting something to eat - Related Data Allergies/Adverse Reactions: captopril [From Capoten] Allergy (Severe, Verified 10/06/17 09:27) Angioedema atorvastatin calcium [From Lipitor] Allergy (Intermediate, Verified 10/06/17 09: 27) Angioedema clopidogrel [From Plavix] Allergy (Verified 10/06/17 09:27) rosuvastatin [From Crestor] Allergy (Verified 10/06/17 09:27) simvastatin [From Zocor] Allergy (Verified 10/06/17 09:27) Angioedema Past Medical History - Social History Smoking Status: Never Smoker Frequency of alcohol use: None Drug Abuse: None Family History: Reviewed & Not Pertinent, CAD, DM, Hypertension, Thyroid Disfunction Patient has suicidal ideation: No Patient has homicidal ideation: No - Past Medical History Cardiac Medical History: Reports: Hx Congestive Heart Failure, Hx Coronary Artery Disease, Hx Heart Attack - 2009, Hx Hypercholesterolemia, Hx Hypertension Pulmonary Medical History: Reports: Hx Asthma, Hx Bronchitis, Hx COPD, Hx Sleep Apnea Neurological Medical History: Reports: Hx Cerebrovascular Accident - x 2. Denies: Hx Seizures Endocrine Medical History: Reports: Hx Diabetes Mellitus Type 1, Hx Diabetes Mellitus Type 2 Renal/ Medical History: Denies: Hx Peritoneal Dialysis Malignancy Medical History: GI Medical History: Reports: Hx Diverticulitis, Hx Gastroesophageal Reflux Disease Musculoskeltal Medical History: Reports Hx Arthritis, Reports Hx Musculoskeletal Deformity, Reports Hx Musculoskeletal Trauma Psychiatric Medical History: Reports: Hx Anxiety, Hx Post Traumatic Stress Disorder Denies: Hx Depression Infectious Medical History: Past Surgical History: Reports: Hx Abdominal Surgery - for diverticulitis, Hx Bowel Surgery - Colon resection due to diverticulitis, Hx Cardiac Catheterization, Hx Cardiac Surgery - 1984, ICD placement 2015, Hx Coronary Artery Bypass Graft, Hx Coronary Stent - 1984, Hx Thyroid Surgery, Other - AICD - Immunizations Immunizations up to date: Yes Hx Diphtheria, Pertussis, Tetanus Vaccination: Yes Hx Pneumococcal Vaccination: 05/26/10 Review of Systems - Review of Systems Constitutional: No symptoms reported EENT: No symptoms reported Cardiovascular: Dyspnea Respiratory: No symptoms reported Gastrointestinal: No symptoms reported Genitourinary: Hematuria Male Genitourinary: No symptoms reported Musculoskeletal: No symptoms reported Skin: No symptoms reported Hematologic/Lymphatic: No symptoms reported Neurological/Psychological: No symptoms reported -: Yes All other systems reviewed and negative Physical Exam - Vital signs Vitals: Temp Pulse Resp BP Pulse Ox 97.6 F 70 18 110/69 95 10/06/17 09:32 10/06/17 09:32 10/06/17 09:32 10/06/17 09:32 10/06/17 09:32 Interpretation: Normal - General General appearance: Appears well, Alert - HEENT Head: Normocephalic, Atraumatic Eyes: Normal Pupils: PERRL - Respiratory Respiratory status: No respiratory distress Chest status: Nontender Breath sounds: Wheezing Chest palpation: Normal - Cardiovascular Rhythm: Regular Heart sounds: Normal auscultation Murmur: No - Abdominal Inspection: Normal Distension: No distension Bowel sounds: Normal Tenderness: Nontender Organomegaly: No organomegaly - Back Back: Normal, Nontender - Extremities General upper extremity: Normal inspection, Nontender, Normal color General lower extremity: Normal inspection, Nontender, Normal color - Neurological Neuro grossly intact: Yes Cognition: Normal Orientation: AAOx4 [place] Coma Scale Eye Opening: Spontaneous Magalis Coma Scale Verbal: Oriented [place] Coma Scale Motor: Obeys Commands [place] Coma Scale Total: 15 Speech: Expressive aphasia - Psychological Associated symptoms: Normal affect, Normal mood - Skin Skin Temperature: Warm Skin Moisture: Dry Skin Color: Normal Course - Re-evaluation Re-evalutation: 10/06/17 15:27 Patient does have slight elevation in his potassium along with signs of infection in his urine. Patient was given IV fluids here was able tolerate a diet and was given a dose of antibiotics. No acute pathology seen patient will be discharged back to his care facility. - Vital Signs Vital signs: Temp Pulse Resp BP Pulse Ox 98.2 F 85 20 101/69 99 10/06/17 14:11 10/06/17 14:11 10/06/17 14:11 10/06/17 14:11 10/06/17 14:11 - Laboratory Result Diagrams: 10/06/17 09:50 10/06/17 09:50 Laboratory results interpreted by me: 10/06/17 10/06/17 10/06/17 09:50 09:50 09:56 RBC 5.69 H MCH 25.6 L MCHC 31.8 L RDW 17.0 H Monocytes % (Manual) 15 H Metamyelocytes % 1 H Potassium 5.6 H BUN 48 H Creatinine 1.58 H Est GFR ( Amer) 54 L Est GFR (Non-Af Amer) 45 L Glucose 122 H Urine Protein 100 H Urine Blood LARGE H Urine Nitrite POSITIVE H Urine Urobilinogen 4.0 H Urine Ascorbic Acid 40 H Discharge - Discharge Clinical Impression: UTI (urinary tract infection) Qualifiers: Urinary tract infection type: site unspecified Hematuria presence: with hematuria Qualified Code(s): N39.0 - Urinary tract infection, site not specified Condition: Good Disposition: HOME, SELF-CARE Instructions: Cephalexin ([facility]), Urinary Tract Infection ([facility]) Additional Instructions: Your laboratory studies today show signs of urinary tract infection. We will place you on antibiotic call Keflex. Please take this as directed. Return to ER symptoms worsen. Please continue all your other home medications. Prescriptions: Cephalexin Monohydrate [Keflex 500 mg Capsule] 500 mg PO QID #28 capsule
[2017-10-06 14:17] VITALS: BP 101/69
== END 2017-10-06 14:17 | disposition home or self-care (01) ==
LOC: ER 09:17
DX: N39.0 Urinary tract infection, site not specified (principal); I26.99 Other pulmonary embolism without acute cor pulmonale; J44.9 Chronic obstructive pulmonary disease, unspecified; Z99.81 Dependence on supplemental oxygen; R06.02 Shortness of breath; E11.9 Type 2 diabetes mellitus without complications; I25.10 Atherosclerotic heart disease of native coronary artery without angina pectoris; I10 Essential (primary) hypertension; I25.2 Old myocardial infarction; Z88.8 Allergy status to other drugs, medicaments and biological substances
CPT/HCPCS: 94640; 99284; 36415; 87086; 85025; 80048; 81001; A9270 ×3; J7620

== ENCOUNTER 2017-10-08 15:50 | Emergency (ER) | payer MEDICARE ==
--- NOTE | 2017-10-08 17:12 | ER Document Report ---
ED Medical Screen (RME) - General Chief Complaint: Leg Swelling Stated Complaint: LEG SWELLING Time Seen by Provider: 10/08/17 16:58 Mode of Arrival: Ambulatory Information source: Patient Notes: 61-year-old male with a history of hypertension, congestive heart failure, CVA, and STEMI, recent pulmonary embolism (eliquis) presents with complaint of leg swelling. Patient was recently hospitalized here and transferred to a rehab facility where he is currently staying. Patient is also complaining of persistent chest pain, dysuria and increased urinary frequency. Previous discharge summary reviewed. Patient is very difficult to obtain a history due to his previous stroke. I have greeted and performed a rapid medical assessment of the patient. A comprehensive evaluation and assessment will be performed by another ED provider. Medical decision making, lab review/xrays if performed will be reviewed by the ED provider assuming care of the patient. PHYSICAL EXAMINATION: GENERAL: Well-appearing, well-nourished and in no acute distress. HEAD: Atraumatic, normocephalic. EYES: Pupils equal round extraocular movements intact, conjunctiva are normal. ENT: Nares patent NECK: Normal range of motion LUNGS: Diminished breath sounds Musculoskeletal: Lateral lower extremity edema. NEUROLOGICAL: Normal speech, normal gait. PSYCH: Normal mood, normal affect. SKIN: A few scattered blisters of the lower extremities bilaterally. TRAVEL OUTSIDE OF THE [place] IN LAST 30 DAYS: No - HPI Onset: Other Onset/Duration: Persistent Quality of pain: Stabbing Severity: Mild Exacerbated by: Denies Relieved by: Denies Similar symptoms previously: Yes Recently seen / treated by doctor: Yes - Related Data Frequency of alcohol use: None Drug Abuse: None Allergies/Adverse Reactions: captopril [From Capoten] Allergy (Severe, Verified 10/08/17 15:52) Angioedema atorvastatin calcium [From Lipitor] Allergy (Intermediate, Verified 10/08/17 15: 52) Angioedema clopidogrel [From Plavix] Allergy (Verified 10/08/17 15:52) rosuvastatin [From Crestor] Allergy (Verified 10/08/17 15:52) simvastatin [From Zocor] Allergy (Verified 10/08/17 15:52) Angioedema Past Medical History - Social History Chew tobacco use (# tins/day): No Frequency of alcohol use: None Drug Abuse: None Family history: None - Past Medical History Cardiac Medical History: Reports: Hx Congestive Heart Failure, Hx Coronary Artery Disease, Hx Heart Attack - 2009, Hx Hypercholesterolemia, Hx Hypertension Pulmonary Medical History: Reports: Hx Asthma, Hx Bronchitis, Hx COPD, Hx Sleep Apnea Neurological Medical History: Reports: Hx Cerebrovascular Accident - x 2. Denies: Hx Seizures Endocrine Medical History: Reports: Hx Diabetes Mellitus Type 1, Hx Diabetes Mellitus Type 2 Renal/ Medical History: Denies: Hx Peritoneal Dialysis Malignancy Medical History: GI Medical History: Reports: Hx Diverticulitis, Hx Gastroesophageal Reflux Disease Musculoskeltal Medical History: Reports Hx Arthritis, Reports Hx Musculoskeletal Deformity, Reports Hx Musculoskeletal Trauma Psychiatric Medical History: Reports: Hx Anxiety, Hx Post Traumatic Stress Disorder Denies: Hx Depression Infectious Medical History: Past Surgical History: Reports: Hx Abdominal Surgery - for diverticulitis, Hx Bowel Surgery - Colon resection due to diverticulitis, Hx Cardiac Catheterization, Hx Cardiac Surgery - 1984, ICD placement 2015, Hx Coronary Artery Bypass Graft, Hx Coronary Stent - 1984, Hx Thyroid Surgery, Other - AICD - Immunizations Immunizations up to date: Yes Hx Diphtheria, Pertussis, Tetanus Vaccination: Yes History of Influenza Vaccine for 02/2017 - 07/2017 Season: Refused Physical Exam - Vital signs Vitals: Temp Pulse Resp BP Pulse Ox 98.4 F 88 20 102/80 89 L 10/08/17 16:09 10/08/17 16:09 10/08/17 16:09 10/08/17 16:09 10/08/17 16:09 Course - Vital Signs Vital signs: Temp Pulse Resp BP Pulse Ox 98.4 F 88 20 102/80 89 L 10/08/17 16:09 10/08/17 16:09 10/08/17 16:09 10/08/17 16:09 10/08/17 16:09
--- NOTE | 2017-10-08 17:37 | RADIOLOGY REPORT (SQ) ---
EXAM DESCRIPTION: CHEST 2 VIEWS COMPLETED DATE/TIME: 10/08/2017 5:26 pm REASON FOR STUDY: chest pain COMPARISON: 07/07/2017 EXAM PARAMETERS: NUMBER OF VIEWS: two views TECHNIQUE: Digital Frontal and Lateral radiographic views of the chest acquired. RADIATION DOSE: NA LIMITATIONS: none FINDINGS: LUNGS AND PLEURA: No opacities, masses or pneumothorax. No pleural effusion. MEDIASTINUM AND HILAR STRUCTURES: No masses or contour abnormalities. HEART AND VASCULAR STRUCTURES: Cardiomegaly. No evidence of failure. BONES: No acute findings. HARDWARE: Pacemaker/defibrillator. OTHER: No other significant finding. IMPRESSION: Cardiomegaly without CHF. TECHNICAL DOCUMENTATION: JOB ID: [id number] [employer]- All Rights Reserved Reading location - IP/workstation name: [email or web address]
[2017-10-08 18:14] LABS: APPEARANCE,URINE CLEAR; BILIRUBIN,URINE NEGATIVE (NEGATIVE); COLOR,URINE YELLOW; GLUCOSE, URINE NEGATIVE (NEGATIVE); KETONES,URINE NEGATIVE (NEGATIVE); LEUKOCYTE ESTERASE,URINE NEGATIVE (NEGATIVE); NITRITE,URINE NEGATIVE (NEGATIVE); PROTEIN,URINE 100 mg/dL (NEGATIVE); URINE SPECIFIC GRAVITY 1.015
[2017-10-08 18:21] LABS: HEMATOCRIT 45.4 % (37.9-51.0); HEMOGLOBIN 14.2 g/dL (13.5-17.0); MEAN CORPUSCULAR HEMOGLOBIN 25.4 pg (27.0-33.4); MEAN CORPUSCULAR HGB CONC 31.2 g/dL (32.0-36.0); MEAN CORPUSCULAR VOLUME 81 fl (80-97); PLATELET COUNT 216 10^3/uL (150-450); RED BLOOD COUNT 5.58 10^6/uL (4.35-5.55); RED CELL DISTRIBUTION WIDTH 17.2 % (11.5-14.0); WHITE BLOOD COUNT 5.5 10^3/uL (4.0-10.5)
[2017-10-08 18:39] LABS: ABSOLUTE LYMPHOCYTES# (MANUAL) 1.3 10^3/uL (0.5-4.7); ABSOLUTE MONOCYTES # (MANUAL) 0.8 10^3/uL (0.1-1.4); ABSOLUTE NEUTROPHILS# (MANUAL) 3.4 10^3/uL (1.7-8.2); ANISOCYTOSIS 2+; BASOPHILS % (MANUAL) 0 % (0-2); EOSINOPHILS % (MANUAL) 1 % (0-6); HYPOCHROMASIA 1+; LYMPHOCYTES % (MANUAL) 20 % (13-45); MONOCYTES % (MANUAL) 14 % (3-13); PLATELET COMMENT ADEQUATE; POLYCHROMASIA 1+; SEGMENTED NEUTROPHILS % (MAN) 61 % (42-78); TOTAL CELLS COUNTED 100; TOXIC GRANULATION SLIGHT; TOXIC VACUOLATION PRESENT
[2017-10-08 18:40] LABS: ALANINE AMINOTRANSFERASE 27 U/L (21-72); ALBUMIN 3.7 g/dL (3.5-5.0); ALKALINE PHOSPHATASE 82 U/L (38-126); ANION GAP 11 (5-19); ASPARTATE AMINO TRANSFERASE 26 U/L (17-59); BILIRUBIN,DIRECT 0.5 mg/dL (0.0-0.4); BILIRUBIN,TOTAL 0.8 mg/dL (0.2-1.3); BLOOD UREA NITROGEN 39 mg/dL (7-20); CARBON DIOXIDE 32 mmol/L (22-30); CHLORIDE 103 mmol/L (98-107); CREATINE KINASE 72 U/L (55-170); GLUCOSE 122 mg/dL (75-110); POTASSIUM 4.8 mmol/L (3.6-5.0); SODIUM 145.9 mmol/L (137-145); TOTAL PROTEIN 6.4 g/dL (6.3-8.2)
[2017-10-08 18:50] LABS: CREATINE KINASE MB 1.18 ng/mL (<4.55)
[2017-10-08] MEDS ORDERED: FUROSEMIDE INJ/PF 40 MG/4 ML SDV IV ONE (18:50)
[2017-10-08 18:52] LABS: TROPONIN I 0.048 ng/mL
--- NOTE | 2017-10-08 18:56 | ER Document Report ---
ED General - General Chief Complaint: Leg Swelling Stated Complaint: LEG SWELLING Time Seen by Provider: 10/08/17 16:58 Mode of Arrival: Ambulatory Information source: Patient TRAVEL OUTSIDE OF THE [place] IN LAST 30 DAYS: No - HPI Patient complains to provider of: leg swelling Onset: Other - few weeks. Worse today. Lives at home with caregiver. Onset/Duration: Gradual Associated symptoms: Chest pain, Shortness of breath Exacerbated by: Denies Relieved by: Denies Similar symptoms previously: Yes Recently seen / treated by doctor: Yes - earlier this month dxed PE - Related Data Allergies/Adverse Reactions: captopril [From Capoten] Allergy (Severe, Verified 10/08/17 15:52) Angioedema atorvastatin calcium [From Lipitor] Allergy (Intermediate, Verified 10/08/17 15: 52) Angioedema clopidogrel [From Plavix] Allergy (Verified 10/08/17 15:52) rosuvastatin [From Crestor] Allergy (Verified 10/08/17 15:52) simvastatin [From Zocor] Allergy (Verified 10/08/17 15:52) Angioedema Past Medical History - General Information source: Patient - Social History Smoking Status: Never Smoker Chew tobacco use (# tins/day): No Frequency of alcohol use: None Drug Abuse: None Family History: Reviewed & Not Pertinent, CAD, DM, Hypertension, Thyroid Disfunction Patient has suicidal ideation: No Patient has homicidal ideation: No - Past Medical History Cardiac Medical History: Reports: Hx Congestive Heart Failure, Hx Coronary Artery Disease, Hx Heart Attack - 2008, Hx Hypercholesterolemia, Hx Hypertension Pulmonary Medical History: Reports: Hx Asthma, Hx Bronchitis, Hx COPD, Hx Sleep Apnea Neurological Medical History: Reports: Hx Cerebrovascular Accident - x 2. Denies: Hx Seizures Endocrine Medical History: Reports: Hx Diabetes Mellitus Type 1, Hx Diabetes Mellitus Type 2 Renal/ Medical History: Denies: Hx Peritoneal Dialysis Malignancy Medical History: GI Medical History: Reports: Hx Diverticulitis, Hx Gastroesophageal Reflux Disease Musculoskeltal Medical History: Reports Hx Arthritis, Reports Hx Musculoskeletal Deformity, Reports Hx Musculoskeletal Trauma Psychiatric Medical History: Reports: Hx Anxiety, Hx Post Traumatic Stress Disorder Denies: Hx Depression Infectious Medical History: Past Surgical History: Reports: Hx Abdominal Surgery - for diverticulitis, Hx Bowel Surgery - Colon resection due to diverticulitis, Hx Cardiac Catheterization, Hx Cardiac Surgery - 1984, ICD placement 2015, Hx Coronary Artery Bypass Graft, Hx Coronary Stent - 1984, Hx Thyroid Surgery, Other - AICD - Immunizations Immunizations up to date: Yes Hx Diphtheria, Pertussis, Tetanus Vaccination: Yes Hx Pneumococcal Vaccination: 05/26/10 Review of Systems - Review of Systems Constitutional: No symptoms reported EENT: No symptoms reported Cardiovascular: See HPI Respiratory: See HPI Gastrointestinal: No symptoms reported Genitourinary: Dysuria Musculoskeletal: No symptoms reported Skin: No symptoms reported Neurological/Psychological: 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 No acute distress. HEAD: Atraumatic, normocephalic. EYES: Pupils equal round and reactive to light, extraocular movements intact, sclera anicteric, conjunctiva are normal. ENT: Nares patent, oropharynx clear without exudates. Moist mucous membranes. NECK: Normal range of motion, supple without lymphadenopathy LUNGS: Breath sounds clear to auscultation bilaterally and equal. No wheezes rales or rhonchi. HEART: Regular rate and rhythm ABDOMEN: Healed longitudinal surgical incisional scar abdomen. No guarding, no rebound. + Bowel sounds. No masses appreciated. Musculoskeletal: +5 strength right lower extremity. Patient states this is normal for him. 5 out of 5 strength bilateral upper extremities and left lower extremity. NEUROLOGICAL: Facial droop. Patient does have garbled speech which is difficult to understand from an old stroke. Follows commands. PSYCH: Normal mood, normal affect. SKIN: Warm, Dry, normal turgor, no rashes or lesions noted. Course - Re-evaluation Re-evalutation: 10/08/17 20:44 She urinated 500 cc he is pulse oxing 95% on room air. He has no conversational dyspnea. His troponins have not changed. Patient will be discharged home in stable condition. - Vital Signs Vital signs: Temp Pulse Resp BP Pulse Ox 98.4 F 88 25 H 102/80 99 10/08/17 16:09 10/08/17 16:09 10/08/17 19:00 10/08/17 16:09 10/08/17 19:00 - Laboratory Result Diagrams: 10/08/17 18:05 10/08/17 18:05 Laboratory results interpreted by me: 10/08/17 10/08/17 10/08/17 17:47 18:05 18:05 RBC 5.58 H MCH 25.4 L MCHC 31.2 L RDW 17.2 H Monocytes % (Manual) 14 H Sodium 145.9 H Carbon Dioxide 32 H BUN 39 H Creatinine 1.43 H Est GFR (Non-Af Amer) 50 L Glucose 122 H Direct Bilirubin 0.5 H NT-Pro-B Natriuret Pep Urine Protein 100 H Urine Blood MODERATE H Urine Urobilinogen 4.0 H Urine Ascorbic Acid 20 H 10/08/17 18:05 RBC MCH MCHC RDW Monocytes % (Manual) Sodium Carbon Dioxide BUN Creatinine Est GFR (Non-Af Amer) Glucose Direct Bilirubin NT-Pro-B Natriuret Pep 4490 H Urine Protein Urine Blood Urine Urobilinogen Urine Ascorbic Acid
[2017-10-08] MEDS ORDERED: BUMETANIDE INJ/PF 1 MG/4 ML SDV IV STA (19:56)
[2017-10-08 20:55] VITALS: BP 125/95
--- NOTE | 2017-10-08 22:46 | EKG REPORT ---
SEVERITY:- ABNORMAL ECG - SINUS RHYTHM PROBABLE LEFT ATRIAL ABNORMALITY CONSIDER RIGHT VENTRICULAR HYPERTROPHY PROBABLE INFERIOR INFARCT, AGE INDETERMINATE CONSIDER ANTERIOR INFARCT : Confirmed by: Pooja Patel 08-Oct-2017 19:45:53
== END 2017-10-08 22:00 | disposition home or self-care (01) ==
LOC: ER 15:50
DX: R60.0 Localized edema (principal); R07.9 Chest pain, unspecified; R06.02 Shortness of breath; I25.10 Atherosclerotic heart disease of native coronary artery without angina pectoris; I25.2 Old myocardial infarction; I10 Essential (primary) hypertension; J44.9 Chronic obstructive pulmonary disease, unspecified
CPT/HCPCS: 93005; 99284; 96374; 96375; 36415; 87086; 82553; 82550; 85025; 80053; 81001; 84484; 83880; 71046; 93010; J3490; J1940

== ENCOUNTER 2017-10-12 10:30 | Emergency (ER) | payer MEDICARE ==
[2017-10-12] MEDS ORDERED: IPRATROPIUM/ALBUTEROL 0.5-2.5 MG/3 ML AMPUL NEB ONE ×2 (10:48→11:32)
--- NOTE | 2017-10-12 10:48 | ER Document Report ---
ED General - General Mode of Arrival: Medic Information source: Patient TRAVEL OUTSIDE OF THE [place] IN LAST 30 DAYS: No <SELENA SNYDER - Last Filed: 10/12/17 11:59> <AUTUMN LANE - Last Filed: 10/12/17 12:35> - General Chief Complaint: Shortness Of Breath Stated Complaint: CHEST PAIN Time Seen by Provider: 10/12/17 10:37 Notes: Patient is a 61-year-old male who presents to the emergency department today with complaints of chest pain and associated shortness of breath. On 09/10/2017 the patient had a end STEMI. Patient is a poor historian which is baseline for him so history is limited. (SELENA SNYDER) - Related Data Allergies/Adverse Reactions: captopril [From Capoten] Allergy (Severe, Verified 10/08/17 15:52) Angioedema atorvastatin calcium [From Lipitor] Allergy (Intermediate, Verified 10/08/17 15: 52) Angioedema clopidogrel [From Plavix] Allergy (Verified 10/08/17 15:52) rosuvastatin [From Crestor] Allergy (Verified 10/08/17 15:52) simvastatin [From Zocor] Allergy (Verified 10/08/17 15:52) Angioedema Past Medical History - General Information source: Patient - Social History Smoking Status: Former Smoker Cigarette use (# per day): No Lives with: [facility], [place], [facility] Family History: Reviewed & Not Pertinent, CAD, DM, Hypertension, Thyroid Disfunction - Past Medical History Cardiac Medical History: Reports: Hx Congestive Heart Failure, Hx Coronary Artery Disease, Hx Heart Attack - 2008, Hx Hypercholesterolemia, Hx Hypertension Pulmonary Medical History: Reports: Hx Asthma, Hx Bronchitis, Hx COPD, Hx Sleep Apnea Neurological Medical History: Reports: Hx Cerebrovascular Accident - x 2 Endocrine Medical History: Reports: Hx Diabetes Mellitus Type 1, Hx Diabetes Mellitus Type 2 Renal/ Medical History: Malignancy Medical History: GI Medical History: Reports: Hx Diverticulitis, Hx Gastroesophageal Reflux Disease Musculoskeltal Medical History: Reports Hx Arthritis, Reports Hx Musculoskeletal Deformity, Reports Hx Musculoskeletal Trauma Psychiatric Medical History: Reports: Hx Anxiety, Hx Post Traumatic Stress Disorder Infectious Medical History: Past Surgical History: Reports: Hx Abdominal Surgery - for diverticulitis, Hx Bowel Surgery - Colon resection due to diverticulitis, Hx Cardiac Catheterization, Hx Cardiac Surgery - 1984, ICD placement 2015, Hx Coronary Artery Bypass Graft, Hx Coronary Stent - 1984, Hx Thyroid Surgery, Other - AICD - Immunizations Immunizations up to date: Yes Hx Diphtheria, Pertussis, Tetanus Vaccination: Yes Hx Pneumococcal Vaccination: 05/26/10 <SELENA SNYDER - Last Filed: 10/12/17 11:59> Review of Systems - Review of Systems Constitutional: No symptoms reported EENT: No symptoms reported Cardiovascular: See HPI, Chest pain Respiratory: See HPI, Short of breath, Wheezing Gastrointestinal: No symptoms reported Genitourinary: No symptoms reported Male Genitourinary: No symptoms reported Musculoskeletal: No symptoms reported Skin: No symptoms reported Hematologic/Lymphatic: No symptoms reported Neurological/Psychological: No symptoms reported -: Yes All other systems reviewed and negative <SELENA SNYDER - Last Filed: 10/12/17 11:59> Physical Exam <SELENA SNYDER - Last Filed: 10/12/17 11:59> <AUTUMN LANE - Last Filed: 10/12/17 12:35> - Notes Notes: Physical Exam: General: Alert, appears well. HEENT: Normocephalic. Atraumatic. PERRL. Extraocular movements intact. Oropharynx clear. Neck: Supple. Non-tender. Respiratory: No respiratory distress. Diffuse wheezing and rhonchi with forced cough. Cardiovascular: Regular rate and rhythm. Abdominal: Obese. Non-tender. No distension. Normal Bowel Sounds. Back: Non-tender. No deformity or step off. Extremities: Moves all four extremities. Upper extremities: Normal inspection. Normal ROM. Lower extremities: Pitting edema bilaterally, L>R, sores and bandaids to left leg. Skin feels leathery. Normal ROM. Neurological: Baseline cognition. Slow stuttered speech at baseline secondary to previous CVA. Psychological: Normal affect. Normal Mood. Skin: See lower extremity exam. (SELENA SNYDER) Course - Laboratory Result Diagrams: 10/12/17 11:31 10/12/17 11:31 <SELENA SNYDER - Last Filed: 10/12/17 11:59> - Laboratory Result Diagrams: 10/12/17 11:31 10/12/17 11:31 - Diagnostic Test Radiology reviewed: Reports reviewed - Enlarged heart, no heart failure, no change from multiple prior chest x-rays - EKG Interpretation by Me EKG shows normal: Sinus rhythm, [place], QRS Complexes - Questionable old inferior ME and old anterior ME., ST-T Waves. abnormal: Intervals - Borderline QT interval Rate: Normal - 86 Rhythm: NSR, PVC's, APC's P Waves: LAE When compared to previous EKG there are: No significant change <AUTUMN LANE - Last Filed: 10/12/17 12:35> - Re-evaluation Re-evalutation: 10/12/17 12:28 Chest x-ray is unchanged from baseline. Patient's troponin is in the indeterminate range at the level it is generally found to be. His breathing did improve with the nebulizer treatment. He has been in no distress at all the entire time he is here. (AUTUMN LANE) - Laboratory Laboratory results interpreted by me: 10/12/17 10/12/17 11:31 11:31 RBC 5.63 H MCH 25.6 L MCHC 31.7 L RDW 17.6 H Lymphocytes % 11.3 L BUN 32 H Creatinine 1.35 H Est GFR (Non-Af Amer) 53 L Glucose 157 H Discharge <SELENA SNYDER - Last Filed: 10/12/17 11:59> <AUTUMN LANE - Last Filed: 10/12/17 12:35> - Discharge Clinical Impression: Chest wall pain COPD (chronic obstructive pulmonary disease) Qualifiers: COPD type: unspecified COPD Qualified Code(s): J44.9 - Chronic obstructive pulmonary disease, unspecified Condition: Stable Additional Instructions: Chest Wall Pain Your chest pain has been diagnosed as coming from the chest wall. This is often caused by straining the muscles or joints in the chest during physical activity, direct trauma, coughing, or vigorous vomiting. Persons with arthritis are especially prone to this type of pain, due to inflammation of the cartilage joints near the breast bone. Occasionally, no cause can be found. Rest from strenuous physical activity. This kind of chest pain is usually made worse by movement of the chest. Depending on the symptoms, we may prescribe medicine for pain, muscle relaxation, and antiinflammatory effects. If the pain is new, and seems to be due to muscle strain, cold packs can help. Otherwise, apply gentle warmth to the painful area for 15 minutes every hour or two. You should contact the doctor immediately if things change. Further evaluation is needed if you develop a fever or cough, if the nature of the pain changes, or if you become short of breath. Your chest x-ray, EKG, and heart enzymes are all within your normal limits today. There is no evidence that the chest pain is coming from your heart today. Your shortness of breath is due to the wheezing from your COPD. You continue your regular medications. Follow-up with your doctor tomorrow if not feeling better. RETURN TO THE EMERGENCY ROOM IF ANY NEW OR WORSENING SYMPTOMS. Scribe Attestation: 10/12/17 10:49 I personally performed the services described in the documentation, reviewed and edited the documentation which was dictated to the scribe in my presence, and it accurately records my words and actions. (AUTUMN LANE)
--- NOTE | 2017-10-12 11:32 | RADIOLOGY REPORT (SQ) ---
EXAM DESCRIPTION: CHEST SINGLE VIEW COMPLETED DATE/TIME: 10/12/2017 11:24 am REASON FOR STUDY: Chest pain COMPARISON: 10/08/2017. NUMBER OF VIEWS: One view. TECHNIQUE: Single frontal radiographic view of the chest acquired. LIMITATIONS: None. FINDINGS: LUNGS AND PLEURA: No opacities, masses or pneumothorax. No pleural effusion. MEDIASTINUM AND HILAR STRUCTURES: No masses. Contour normal. HEART AND VASCULAR STRUCTURES: Heart enlarged without failure. Normal vasculature. BONES: No acute findings. HARDWARE: Defibrillator. Surgical clips in the soft tissues of the neck. OTHER: No other significant finding. IMPRESSION: HEART ENLARGED WITHOUT FAILURE. NO OTHER SIGNIFICANT RADIOGRAPHIC FINDING IN THE CHEST. TECHNICAL DOCUMENTATION: JOB ID: [id number] [employer]- All Rights Reserved Reading location - IP/workstation name: [email or web address]
[2017-10-12 11:48] LABS: ABSOLUTE BASOPHILS # (AUTO) 0.1 10^3/uL (0.0-0.2); ABSOLUTE MONOCYTES (AUTO) 0.7 10^3/uL (0.1-1.4); BASOPHILS % (AUTO) 0.8 % (0-2); MONOCYTES % (AUTO) 10.3 % (3-13); TOTAL CELLS COUNTED % (AUTO) 100 %
[2017-10-12 11:56] LABS: ABSOLUTE EOSINOPHILS # (AUTO) 0.3 10^3/uL (0.0-0.6); ABSOLUTE LYMPHOCYTES (AUTO) 0.8 10^3/uL (0.5-4.7); HEMATOCRIT 45.3 % (37.9-51.0); HEMOGLOBIN 14.4 g/dL (13.5-17.0); LYMPHOCYTES % (AUTO) 11.3 % (13-45); MEAN CORPUSCULAR HEMOGLOBIN 25.6 pg (27.0-33.4); MEAN CORPUSCULAR HGB CONC 31.7 g/dL (32.0-36.0); MEAN CORPUSCULAR VOLUME 81 fl (80-97); PLATELET COUNT 173 10^3/uL (150-450); RED BLOOD COUNT 5.63 10^6/uL (4.35-5.55); RED CELL DISTRIBUTION WIDTH 17.6 % (11.5-14.0); SEGMENTED NEUTROPHILS % (AUTO) 73.6 % (42-78); WHITE BLOOD COUNT 6.8 10^3/uL (4.0-10.5)
[2017-10-12 12:07] LABS: ALANINE AMINOTRANSFERASE 25 U/L (21-72); ALBUMIN 3.6 g/dL (3.5-5.0); ALKALINE PHOSPHATASE 75 U/L (38-126); ANION GAP 12 (5-19); ASPARTATE AMINO TRANSFERASE 32 U/L (17-59); BILIRUBIN,DIRECT 0.4 mg/dL (0.0-0.4); BLOOD UREA NITROGEN 32 mg/dL (7-20); CALCIUM 8.9 mg/dL (8.4-10.2); CARBON DIOXIDE 27 mmol/L (22-30); CHLORIDE 105 mmol/L (98-107); CREATINE KINASE 70 U/L (55-170); GLUCOSE 157 mg/dL (75-110); POTASSIUM 4.9 mmol/L (3.6-5.0); TOTAL PROTEIN 6.7 g/dL (6.3-8.2)
[2017-10-12 12:38] VITALS: BP 113/80
--- NOTE | 2017-10-12 16:17 | EKG REPORT ---
SEVERITY:- ABNORMAL ECG - SINUS RHYTHM PROBABLE LEFT ATRIAL ABNORMALITY CONSIDER RIGHT VENTRICULAR HYPERTROPHY INFERIOR INFARCT, AGE INDETERMINATE CONSIDER ANTERIOR INFARCT BORDERLINE PROLONGED QT INTERVAL : Confirmed by: Pooja Patel 12-Oct-2017 16:17:09
== END 2017-10-12 15:42 ==
LOC: ER 10:30
DX: J44.9 Chronic obstructive pulmonary disease, unspecified (principal); R07.89 Other chest pain; R06.02 Shortness of breath; Z87.891 Personal history of nicotine dependence; I25.10 Atherosclerotic heart disease of native coronary artery without angina pectoris; I25.2 Old myocardial infarction; I10 Essential (primary) hypertension; E11.9 Type 2 diabetes mellitus without complications
CPT/HCPCS: 93005; 94640 ×2; 99285; 36415; 82550; 85025; 80053; 84484; 71045; 93010; A9270; J7620

== ENCOUNTER 2017-12-11 16:16 | Inpatient (IN) | payer MEDICARE ==
[2017-12-11] MEDS ORDERED: ASPIRIN 81 MG TABLET, CHEWABLE PO ONE (16:21)
--- NOTE | 2017-12-11 17:00 | RADIOLOGY REPORT (SQ) ---
EXAM DESCRIPTION: CHEST SINGLE VIEW COMPLETED DATE/TIME: 12/11/2017 4:50 pm REASON FOR STUDY: bed 9 cp COMPARISON: 10/12/2017 EXAM PARAMETERS: NUMBER OF VIEWS: One view. TECHNIQUE: Single frontal radiographic view of the chest acquired. RADIATION DOSE: NA LIMITATIONS: None. FINDINGS: LUNGS AND PLEURA: Extensive increase in density both lower lung zones most likely related tip bilateral pleural effusions. Underlying pathology cannot be excluded. Upper lung zones clear. MEDIASTINUM AND HILAR STRUCTURES: No masses. Contour normal. HEART AND VASCULAR STRUCTURES: Severe cardiomegaly unchanged. BONES: No acute findings. HARDWARE: Pacing lead intact. OTHER: No other significant finding. IMPRESSION: Severe cardiomegaly with obscuring of both lower lung zones consistent with moderate to large bilateral pleural effusions. Underlying pathology could be obscured. TECHNICAL DOCUMENTATION: JOB ID: [id number] [employer]- All Rights Reserved Reading location - IP/workstation name: [email or web address]
--- NOTE | 2017-12-11 17:08 | ER Document Report ---
ED Cardiac - General Chief Complaint: Chest Pain Stated Complaint: CHEST PAIN Time Seen by Provider: 12/11/17 16:33 Mode of Arrival: Stretcher Information source: Patient TRAVEL OUTSIDE OF THE [place] IN LAST 30 DAYS: No - HPI Patient complains to provider of: Chest pain, Chest tightness, Shortness of breath Was the onset of pain: Gradual Chest pain location: Substernal Quality of pain: Moderate Severity now: Moderate Severity at worst: Moderate Pain level currently: 4 Chest pain precipitating factors: At Rest Notes: Patient is a 62-year-old male presenting to the emergency room today complaining of chest pain with shortness of breath that started around noontime today, patient has a history of previous stroke with difficulty articulating his speech and therefore history was somewhat difficult to get, his service team leader is at bedside and states that she is never seen him actively he is acting right now, he is fidgety, uncomfortable and unable to sit - Related Data Allergies/Adverse Reactions: captopril [From Capoten] Allergy (Severe, Verified 10/08/17 15:52) Angioedema atorvastatin calcium [From Lipitor] Allergy (Intermediate, Verified 10/08/17 15: 52) Angioedema clopidogrel [From Plavix] Allergy (Verified 10/08/17 15:52) rosuvastatin [From Crestor] Allergy (Verified 10/08/17 15:52) simvastatin [From Zocor] Allergy (Verified 10/08/17 15:52) Angioedema Past Medical History - General Information source: Patient, Friend - Social History Smoking Status: Unknown if Ever Smoked Frequency of alcohol use: None Family History: Reviewed & Not Pertinent, CAD, DM, Hypertension, Thyroid Disfunction Patient has suicidal ideation: No Patient has homicidal ideation: No - Past Medical History Cardiac Medical History: Reports: Hx Congestive Heart Failure, Hx Coronary Artery Disease, Hx Heart Attack - 2009, Hx Hypercholesterolemia, Hx Hypertension Pulmonary Medical History: Reports: Hx Asthma, Hx Bronchitis, Hx COPD, Hx Sleep Apnea Neurological Medical History: Reports: Hx Cerebrovascular Accident - x 2. Denies: Hx Seizures Endocrine Medical History: Reports: Hx Diabetes Mellitus Type 1, Hx Diabetes Mellitus Type 2 Renal/ Medical History: Denies: Hx Peritoneal Dialysis Malignancy Medical History: GI Medical History: Reports: Hx Diverticulitis, Hx Gastroesophageal Reflux Disease Musculoskeletal Medical History: Reports Hx Arthritis, Reports Hx Musculoskeletal Deformity, Reports Hx Musculoskeletal Trauma Psychiatric Medical History: Reports: Hx Anxiety, Hx Post Traumatic Stress Disorder Denies: Hx Depression Infectious Medical History: Past Surgical History: Reports: Hx Abdominal Surgery - for diverticulitis, Hx Bowel Surgery - Colon resection due to diverticulitis, Hx Cardiac Catheterization, Hx Cardiac Surgery - 1984, ICD placement 2015, Hx Coronary Artery Bypass Graft, Hx Coronary Stent - 1984, Hx Thyroid Surgery, Other - AICD - Immunizations Immunizations up to date: Yes Hx Diphtheria, Pertussis, Tetanus Vaccination: Yes Hx Pneumococcal Vaccination: 05/26/10 Review of Systems - Review of Systems Constitutional: No symptoms reported EENT: No symptoms reported Cardiovascular: See HPI Respiratory: See HPI Gastrointestinal: No symptoms reported Genitourinary: No symptoms reported Male Genitourinary: No symptoms reported Musculoskeletal: No symptoms reported Skin: No symptoms reported Hematologic/Lymphatic: No symptoms reported Neurological/Psychological: No symptoms reported -: Yes All other systems reviewed and negative Physical Exam - Vital signs Vitals: Pulse Ox 92 12/11/17 16:36 - General General appearance: Alert In distress: Mild - HEENT Head: Normocephalic, Atraumatic Eyes: Normal Conjunctiva: Normal Eyelashes: Normal Pupils: PERRL - Respiratory Respiratory status: No respiratory distress Chest status: Nontender Breath sounds: Rales Chest palpation: Normal - Cardiovascular Rhythm: Regular Heart sounds: Normal auscultation - Abdominal Inspection: Normal, Obese Distension: No distension Bowel sounds: Normal Tenderness: Nontender Organomegaly: No organomegaly - Extremities General upper extremity: Normal inspection General lower extremity: Edema - Neurological Cognition: Normal Orientation: AAOx4 Magalis Coma Scale Eye Opening: Spontaneous Magalis Coma Scale Verbal: Oriented - Skin Skin Temperature: Warm Skin Moisture: Dry Skin Color: Normal Course - Re-evaluation Re-evalutation: 12/11/17 18:24 Patient resting comfortably, no complaints at present time, lab and imaging findings discussed at bedside which are consistent with bilateral pleural effusions, mild increase in bicarb and increased troponin, patient has a history of coronary artery disease with NSTEMI in August, therefore he will be admitted for further evaluation and treatment I placed a call to the hospitalist group but was told that they are no longer accepting admissions on the day shift and I will have to wait till the evening shift physician comes into admit patient, therefore patient will be signed out to Dr. Piramzadian to continue management until care can be assumed by hospitalist service - Vital Signs Vital signs: Temp Pulse Resp BP Pulse Ox 37 H 105/79 96 12/11/17 17:01 12/11/17 17:01 12/11/17 18:00 - Laboratory Result Diagrams: 12/11/17 17:35 12/11/17 17:35 Laboratory results interpreted by me: 12/11/17 12/11/17 12/11/17 17:35 17:35 17:35 Hgb 11.6 L Hct 36.9 L MCH 26.0 L MCHC 31.6 L RDW 20.2 H Monocytes % 19.2 H Sodium 145.9 H Chloride 92 L Carbon Dioxide 40 H* BUN 30 H Creatinine 1.39 H Est GFR (Non-Af Amer) 51 L Direct Bilirubin 0.5 H Creatine Kinase 33 L NT-Pro-B Natriuret Pep 2850 H - Diagnostic Test Radiology reviewed: Image reviewed, Reports reviewed - EKG Interpretation by Me EKG shows normal: Sinus rhythm Rate: Tachycardia Discharge - Discharge Clinical Impression: Acute on chronic systolic CHF (congestive heart failure), NYHA class 4, Shortness of breath, Pleural effusion Chest pain Qualifiers: Chest pain type: unspecified Qualified Code(s): R07.9 - Chest pain, unspecified Condition: Stable Disposition: ADMITTED INPATIENT Admitting Provider: Hospitalist Unit Admitted: Telemetry Referrals: JACOBO MARTINEZ DO [Primary Care Provider] - Follow up as needed
[2017-12-11 17:47] LABS: ABSOLUTE BASOPHILS # (AUTO) 0.1 10^3/uL (0.0-0.2); ABSOLUTE EOSINOPHILS # (AUTO) 0.3 10^3/uL (0.0-0.6); ABSOLUTE MONOCYTES (AUTO) 1.1 10^3/uL (0.1-1.4); ABSOLUTE NEUT (AUTO) 3.2 10^3/uL (1.7-8.2); BASOPHILS % (AUTO) 1.1 % (0-2); EOSINOPHILS % (AUTO) 4.9 % (0-6); HEMATOCRIT 36.9 % (37.9-51.0); HEMOGLOBIN 11.6 g/dL (13.5-17.0); LYMPHOCYTES % (AUTO) 18.4 % (13-45); MEAN CORPUSCULAR HGB CONC 31.6 g/dL (32.0-36.0); MEAN CORPUSCULAR VOLUME 82 fl (80-97); MONOCYTES % (AUTO) 19.2 % (3-13); PLATELET COUNT 188 10^3/uL (150-450); RED BLOOD COUNT 4.47 10^6/uL (4.35-5.55); RED CELL DISTRIBUTION WIDTH 20.2 % (11.5-14.0); SEGMENTED NEUTROPHILS % (AUTO) 56.4 % (42-78); TOTAL CELLS COUNTED % (AUTO) 100 %; WHITE BLOOD COUNT 5.6 10^3/uL (4.0-10.5)
[2017-12-11 18:08] LABS: ALANINE AMINOTRANSFERASE 22 U/L (21-72); ALBUMIN 3.5 g/dL (3.5-5.0); ALKALINE PHOSPHATASE 102 U/L (38-126); ASPARTATE AMINO TRANSFERASE 39 U/L (17-59); BILIRUBIN,DIRECT 0.5 mg/dL (0.0-0.4); BILIRUBIN,TOTAL 0.8 mg/dL (0.2-1.3); BLOOD UREA NITROGEN 30 mg/dL (7-20); CALCIUM 8.4 mg/dL (8.4-10.2); CHLORIDE 92 mmol/L (98-107); CREATINE KINASE 33 U/L (55-170); GLUCOSE 109 mg/dL (75-110); POTASSIUM 4.1 mmol/L (3.6-5.0); SODIUM 145.9 mmol/L (137-145); TOTAL PROTEIN 7.3 g/dL (6.3-8.2)
[2017-12-11 18:14] LABS: ANION GAP 14 (5-19)
[2017-12-11 18:19] LABS: CARBON DIOXIDE 40 mmol/L (22-30)
[2017-12-11 18:20] LABS: CREATINE KINASE MB 1.07 ng/mL (<4.55)
[2017-12-11 18:21] LABS: TROPONIN I 0.054 ng/mL
--- NOTE | 2017-12-11 22:55 | EKG REPORT ---
SEVERITY:- ABNORMAL ECG - SINUS TACHYCARDIA MULTIPLE VENTRICULAR PREMATURE COMPLEXES PROBABLE LEFT ATRIAL ABNORMALITY NONSPECIFIC INTRAVENTRICULAR CONDUCTION DELAY : Confirmed by: Pooja Patel 11-Dec-2017 22:54:37
--- NOTE | 2017-12-11 22:56 | EKG REPORT ---
SEVERITY:- ABNORMAL ECG - SINUS TACHYCARDIA MULTIFORM VENTRICULAR PREMATURE COMPLEXES CONSIDER RIGHT VENTRICULAR HYPERTROPHY CONSIDER ANTERIOR INFARCT BORDERLINE T ABNORMALITIES, INFERIOR LEADS : Confirmed by: Pooja Patel 11-Dec-2017 22:55:36
[2017-12-11] MEDS ORDERED: MAGNESIUM HYDROXIDE SUSP 30 ML UDCUP PO PRN (23:00)
[2017-12-11] MEDS ORDERED: MAG HYDROX/AL HYDROX/SIMETH SUSP 30 ML UDCUP PO PRN (23:00)
[2017-12-11] MEDS ORDERED: ONDANSETRON HCL INJ/PF 4 MG/2 ML SDV IV PRN (23:00)
[2017-12-11] MEDS ORDERED: NITROGLYCERIN 0.4 MG/TAB 25 TAB/BOTTLE SL PRN (23:00)
[2017-12-11] MEDS ORDERED: ACETAMINOPHEN 325 MG TABLET PO PRN (23:00)
[2017-12-11] MEDS ORDERED: PEG OU PRN (23:19)
[2017-12-11] MEDS ORDERED: POLYVINYL ALCOHOL 1.4% OPH SOLN 15 ML OU PRN (23:19)
[2017-12-11] MEDS ORDERED: ALBUTEROL SULFATE 0.083% NEB 2.5 MG/3 ML AMPUL NEB PRN (23:19)
[2017-12-11] MEDS ORDERED: ALPRAZOLAM 0.5 MG TABLET PO PRN (23:19)
[2017-12-11] MEDS ORDERED: PROPYLENE GLYCOL OU PRN (23:19)
[2017-12-12 03:15] LABS: CREATINE KINASE MB 1.25 ng/mL (<4.55); TROPONIN I 0.064 ng/mL
[2017-12-12] MEDS ORDERED: GLUCAGON,HUMAN RECOMB 1 MG INJ IM PRN (03:54)
[2017-12-12] MEDS ORDERED: INSULIN LISPRO 100 UNIT/ML 3 ML VIAL SUBCUT PRN ×2 (03:54→21:06)
[2017-12-12] MEDS ORDERED: DEXTROSE 50%-WATER 25 GM/50 ML DISP.SYRIN IV PRN ×2 (03:54)
[2017-12-12] MEDS ORDERED: DEXTROSE 40% GEL 15 GM TUBE PO PRN ×2 (03:54)
--- NOTE | 2017-12-12 04:25 | PDOC H&P ---
History of Present Illness Admission Date/PCP: 12/11/17 19:21 JACOBO MARTINEZ DO Patient complains of: Shortness of breath and chest pain History of Present Illness: ALEX KNIGHT is a 62 year old male with history of multiple medical problems that would be mentioned below who presented to the emergency room with acute onset of left parasternal chest pain felt this tightness with associated dyspnea, orthopnea and paroxysmal nocturnal dyspnea which have been worsening over the last few days with associated dry cough and wheezing. He admitted to nasal congestion. He has significant dysarthria from previous CVA which makes him a fairly poor historian. When he came to the emergency room his EKG showed sinus tachycardia with a rate of 102 with PVCs and suspected right ventricular hypertrophy. He comes from [facility]. His chest x-ray showed severe cardiomegaly with moderate to large bilateral pleural effusions concerning for acute CHF. He was very tachypneic when he came to the ER with a respiratory rate of 32 that was later up to 37 but otherwise normal vital signs. He is given 81 mg chewable aspirin emergency room. He will be admitted to a telemetry bed for further evaluation and management. Past Medical History Cardiac Medical History: Reports: Congestive Heart Failure - Systolic with EF of 25-30% as of 2D echo in July 2017, Coronary Artery Disease, Myocardial Infarction - 2008, Hyperlipidema, Hypertension Pulmonary Medical History: Reports: Asthma, Bronchitis, Chronic Obstructive Pulmonary Disease (COPD), Sleep Apnea Neurological Medical History: Denies: Seizures Endocrine Medical History: Reports: Diabetes Mellitus Type 1, Diabetes Mellitus Type 2 Renal/ Medical History: Malignancy Medical History: Denies: Breast Cancer, Cervical Cancer, Ovarian Cancer GI Medical History: Reports: Diverticulitis, Gastroesophageal Reflux Disease Musculoskeltal Medical History: Reports: Arthritis Psychiatric Medical History: Reports: Post Traumatic Stress Disorder Denies: Depression Hematology: Reports: Anemia Denies: Hemophilia, Sickle Cell Disease - sickle cell trait Infectious Medical History: Past Surgical History Past Surgical History: Reports: Cardiac Catheterization, Coronary Artery Bypass Graft, Coronary Stent - 1984, Other - AICD Social History Smoking Status: Unknown if Ever Smoked Frequency of Alcohol Use: None Hx Recreational Drug Use: No Drugs: None Hx Prescription Drug Abuse: No - Advance Directive Resuscitation Status: Full Code Family History Family History: CAD, DM, Hypertension, Thyroid Disfunction Parental Family History Reviewed: Yes Children Family History Reviewed: Yes Sibling(s) Family History Reviewed.: Yes Medication/Allergy Home Medications: Albuterol Sulfate [Albuterol Sulfate 2.5mg/3 mL] 1 vial NEB QIDP PRN 12/11/17 Albuterol Sulfate [Proventil Hfa] 2 puff IH Q4HP PRN 12/11/17 Alprazolam [Xanax 0.5 mg Tablet] 0.5 mg PO HSP PRN 12/11/17 Ascorbic Acid [Vitamin C 500 mg Tablet] 500 mg PO DAILY 12/11/17 Aspirin [Aspirin EC] 81 mg PO DAILY 12/11/17 Budesonide/Formoterol Fumarate [Symbicort 160-4.5 Mcg Inhaler] 2 puff IH Q12 Bumetanide [Bumex 1 mg Tablet] 1 mg PO BID 12/11/17 Carvedilol [Coreg 3.125 mg Tablet] 3.125 mg PO Q12 12/11/17 Cyclosporine 0.05% Oph Emulsio [Restasis 0.05% Oph Emulsion Pf 0.4 ml] 1 drop OU Q12 12/11/17 Digoxin [Lanoxin] 62.5 mcg PO DAILY 12/11/17 Docusate Sodium [Colace 100 mg Capsule] 200 mg PO DAILY 12/11/17 Ferrous Sulfate [Feosol 325 mg Tablet] 325 mg PO TID 12/11/17 Gabapentin [Neurontin 300 mg Capsule] 300 mg PO TID 12/11/17 Guaifenesin [Mucinex] 600 mg PO BID 12/11/17 Lactulose [Constulose 10 gm/15 mL Oral Solution] 10 ml PO QHS 12/11/17 Loratadine [Claritin 10 mg Tablet] 10 mg PO DAILY 12/11/17 Cove-3 Fatty Acids [Cove-3] 1,000 mg PO Q12 12/11/17 Omeprazole 20 mg PO DAILY 12/11/17 Polyethylene Glycol 3350 [Miralax Powder 17 gm/Packet] 1 packet PO DAILY Polyvinyl Alcohol [Artificial Tears] 2 drop OU DAILYP PRN 12/11/17 Propylene Glycol/Peg 400/Pf [Systane 0.3-0.4% Eye Drops] 1 drop OU BIDP PRN Tamsulosin HCl [Flomax 0.4 mg Cap.sr] 0.4 mg PO DAILY 12/11/17 Allergies/Adverse Reactions: captopril [From Capoten] Allergy (Severe, Verified 10/08/17 15:52) Angioedema atorvastatin calcium [From Lipitor] Allergy (Intermediate, Verified 10/08/17 15: 52) Angioedema clopidogrel [From Plavix] Allergy (Verified 10/08/17 15:52) rosuvastatin [From Crestor] Allergy (Verified 10/08/17 15:52) simvastatin [From Zocor] Allergy (Verified 10/08/17 15:52) Angioedema Review of Systems Review of Systems: As per history of present illness. All pertinent systems were reviewed above. Constitutional, HEENT, cardiovascular, respiratory, GI, , musculoskeletal, neuro, psychiatric, endocrine, integumentary and hematologic systems were reviewed and are otherwise negative/unremarkable except for positive findings mentioned above in the HPI. Physical Exam Vital Signs: Temp Pulse Resp BP Pulse Ox 97.3 F 114 H 15 128/88 H 96 12/12/17 00:18 12/12/17 00:18 12/12/17 00:18 12/12/17 00:18 12/12/17 00:18 Exam: Generally: Pleasant elderly -[place] male in moderate distress distress with conversational dyspnea Vital signs-as listed Head - atraumatic, normocephalic. Pupils - equal, round and reactive to light and accommodation. Extraocular movements are intact. No scleral icterus. Oropharynx - moist mucous membranes and tongue. No pharyngeal erythema or exudate. Neck - supple. No JVD. Carotid pulses 2+ bilaterally. No carotid bruits. No palpable thyromegaly or lymphadenopathy. Cardiovascular - regular rate and rhythm. Normal S1 and S2. No murmurs, gallops or rubs. Lungs -diminished bibasilar mid lung zone breath sounds Abdomen - soft and nontender. Positive bowel sounds. No palpable organomegaly or masses. Extremities -2-3 bilateral pitting lower extremity edema with no clubbing or cyanosis. Neuro - grossly non-focal. Skin - no rashes. and rectal exam - deferred. Results Laboratory Results: 12/11/17 20:33 TSH 0.93 12/11/17 12/12/17 12/12/17 20:33 02:42 02:42 Creatine Kinase 37 L CK-MB (CK-2) 1.25 Troponin I 0.069 0.064 Impressions: Chest X-Ray 12/11/17 16:21 IMPRESSION: Severe cardiomegaly with obscuring of both lower lung zones consistent with moderate to large bilateral pleural effusions. Underlying pathology could be obscured. Assessment & Plan - Diagnosis (1) Acute on chronic systolic CHF (congestive heart failure), NYHA class 4 Is this a current diagnosis for this admission?: Yes Plan: The patient will be admitted to a telemetry bed and will be diuresed with IV Lasix. Will follow serial cardiac enzymes. Will obtain a cardiology consultation in a.m.The patient had a 2D echo in July of this year with EF of 25-30% and therefore I will not repeated. (2) Chest pain Qualifiers: Chest pain type: unspecified Qualified Code(s): R07.9 - Chest pain, unspecified Is this a current diagnosis for this admission?: Yes Plan: Chest pain, rule out acute coronary syndrome. The patient will be admitted to a telemetry bed. Will follow serial cardiac enzymes and EKGs. We will obtain a cardiology consult in a.m. for further cardiac risk stratification. The patient will be placed on aspirin as well as p.r.n. sublingual nitroglycerin and morphine sulfate for pain. (3) Coronary artery disease Qualifiers: Coronary Disease-Associated Artery/Lesion type: unspecified vessel or lesion type Is this a current diagnosis for this admission?: Yes Plan: We will continue beta-steve therapy and aspirin. (4) Type 2 diabetes mellitus Plan: We will place him on supplemental coverage with Humalog (5) BPH (benign prostatic hyperplasia) Plan: We will continue Flomax (6) DVT prophylaxis Is this a current diagnosis for this admission?: Yes Plan: Subcutaneous Lovenox - Plan Summary Plan Summary: The plan of care was discussed in details with the patient. I answered all questions. The patient agreed to proceed with the above-mentioned plan. The patient is presumably full code. This note was created by [employer] software and may contain typo errors that may have not been proofread.
[2017-12-12] MEDS ORDERED: ALBUTEROL SULFATE 0.083% NEB 2.5 MG/3 ML AMPUL NEB PRN (04:48)
[2017-12-12] MEDS: POLYETHYLENE GLYCOL 3350 POWDER 17 GM/1 PACKET PO SCH (09:45)
[2017-12-12] MEDS: GUAIFENESIN 600 MG TABLET.SA PO SCH ×2 (09:46→20:56)
[2017-12-12] MEDS: DOCUSATE SODIUM 100 MG CAPSULE PO SCH (09:46)
[2017-12-12] MEDS: ASCORBIC ACID 500 MG TABLET PO SCH (09:46)
[2017-12-12] MEDS: CARVEDILOL 3.125 MG TABLET PO SCH ×2 (09:46→22:14)
[2017-12-12] MEDS: TAMSULOSIN HCL 0.4 MG CAP.SR.24H PO SCH (09:47)
[2017-12-12] MEDS: GABAPENTIN 300 MG CAPSULE PO SCH ×3 (09:48→20:56)
[2017-12-12] MEDS: ASPIRIN 81 MG TABLET, ENT COATED PO SCH (09:48)
[2017-12-12] MEDS: DIGOXIN 0.125 MG TABLET PO SCH (09:48)
[2017-12-12] MEDS: FUROSEMIDE INJ/PF 40 MG/4 ML SDV IV SCH ×2 (09:49→22:15)
[2017-12-12] MEDS: OMEGA-3 ACID ETHYL ESTERS 1 GM CAPSULE PO SCH ×2 (09:49→22:15)
[2017-12-12] MEDS: CYCLOSPORINE 0.05% OPH EMULSIO 0.4 ML DROPERETTE OU SCH ×2 (09:52→22:14)
[2017-12-12] MEDS: FERROUS SULFATE 325 MG TABLET PO SCH ×3 (09:52→20:56)
[2017-12-12] MEDS ORDERED: LORATADINE 10 MG TABLET PO SCH (10:00)
[2017-12-12] MEDS ORDERED: ENOXAPARIN SODIUM INJ 40 MG/0.4 ML DISP.SYRIN SUBCUT SCH (10:00)
[2017-12-12] MEDS ORDERED: LANSOPRAZOLE 30 MG TAB.RAP.DR PO SCH (10:00)
--- NOTE | 2017-12-12 11:13 | RADIOLOGY REPORT (SQ) ---
EXAM DESCRIPTION: CHEST SINGLE VIEW COMPLETED DATE/TIME: 12/12/2017 11:04 am REASON FOR STUDY: dyspnea, chest pain COMPARISON: CT chest 09/25/2017 Chest films 10/03/2017, 10/08/2017, 10/12/2017, 12/11/2017 EXAM PARAMETERS: NUMBER OF VIEWS: One view. TECHNIQUE: Single frontal radiographic view of the chest acquired. RADIATION DOSE: NA LIMITATIONS: Obese patient, portable technique FINDINGS: LUNGS AND PLEURA: Hazy opacity over the mid and lower lungs bilaterally, likely a combinat ion of airspace disease and pleural fluid. No pneumothorax MEDIASTINUM AND HILAR STRUCTURES: No masses. Contour normal. HEART AND VASCULAR STRUCTURES: Stable massive cardiomegaly BONES: No acute findings. HARDWARE: Unchanged left-sided single lead pacemaker OTHER: No other significant finding. IMPRESSION: Massive cardiomegaly, stable. Single lead pacemaker unchanged. Bilateral pleural effusions with bibasilar airspace disease atelectasis versus pneumonia. This simil ar compared to 12/11/2017. TECHNICAL DOCUMENTATION: JOB ID: [id number] [employer]- All Rights Reserved Reading location - IP/workstation name: [email or web address]
[2017-12-12 11:44] LABS: ABSOLUTE EOSINOPHILS # (AUTO) 0.1 10^3/uL (0.0-0.6); ABSOLUTE LYMPHOCYTES (AUTO) 0.8 10^3/uL (0.5-4.7); ABSOLUTE MONOCYTES (AUTO) 0.7 10^3/uL (0.1-1.4); ABSOLUTE NEUT (AUTO) 2.6 10^3/uL (1.7-8.2); HEMATOCRIT 37.6 % (37.9-51.0); LYMPHOCYTES % (AUTO) 18.1 % (13-45); MEAN CORPUSCULAR HEMOGLOBIN 26.3 pg (27.0-33.4); MEAN CORPUSCULAR HGB CONC 31.8 g/dL (32.0-36.0); MEAN CORPUSCULAR VOLUME 83 fl (80-97); MONOCYTES % (AUTO) 16.2 % (3-13); PLATELET COUNT 182 10^3/uL (150-450); RED BLOOD COUNT 4.55 10^6/uL (4.35-5.55); RED CELL DISTRIBUTION WIDTH 19.8 % (11.5-14.0); SEGMENTED NEUTROPHILS % (AUTO) 61.7 % (42-78); TOTAL CELLS COUNTED % (AUTO) 100 %; WHITE BLOOD COUNT 4.2 10^3/uL (4.0-10.5)
[2017-12-12 12:01] LABS: ALANINE AMINOTRANSFERASE 22 U/L (21-72); ALBUMIN 3.5 g/dL (3.5-5.0); ALKALINE PHOSPHATASE 87 U/L (38-126); ASPARTATE AMINO TRANSFERASE 28 U/L (17-59); BILIRUBIN,DIRECT 0.5 mg/dL (0.0-0.4); BILIRUBIN,TOTAL 0.8 mg/dL (0.2-1.3); BLOOD UREA NITROGEN 29 mg/dL (7-20); CALCIUM 8.7 mg/dL (8.4-10.2); CHLORIDE 90 mmol/L (98-107); CREATINE KINASE 37 U/L (55-170); GLUCOSE 194 mg/dL (75-110); POTASSIUM 4.1 mmol/L (3.6-5.0); SODIUM 144.6 mmol/L (137-145); TOTAL PROTEIN 6.8 g/dL (6.3-8.2)
[2017-12-12 12:12] LABS: ANION GAP 11 (5-19)
[2017-12-12 12:13] LABS: CREATINE KINASE MB 1.45 ng/mL (<4.55); TROPONIN I 0.064 ng/mL
[2017-12-12 12:14] LABS: CARBON DIOXIDE 44 mmol/L (22-30)
[2017-12-12] MEDS ORDERED: BISACODYL 10 MG SUPP.RECT PR ONE (12:30)
[2017-12-12] MEDS ORDERED: LACTULOSE SYRUP 20 GM/30 ML UDCUP PO ONE (12:30)
[2017-12-12 14:06] LABS: ARTERIAL BLOOD BASE EXCESS 15.5 mmol/L; ARTERIAL BLOOD H2CO3 2.39 mmol/L (1.05-1.35); ARTERIAL BLOOD HCO3 44.6 mmol/L (20-26); ARTERIAL BLOOD O2 SATURATION 95.9 % (94-98); ARTERIAL BLOOD PH 7.37 (7.35-7.45); ARTERIAL BLOOD PO2 87.2 mmHg (80-100)
[2017-12-12 14:07] LABS: ARTERIAL BLOOD FIO2 3L
[2017-12-12] MEDS ORDERED: HALOPERIDOL LACTATE INJ 5 MG/1 ML VIAL IV ONE (14:11)
[2017-12-12 14:14] LABS: ARTERIAL BLOOD PCO2 79.4 mmHg (35-45)
[2017-12-12] MEDS ORDERED: SUCCINYLCHOLINE CHLORIDE INJ 200 MG/10 ML VIAL ONE (14:38)
[2017-12-12] MEDS ORDERED: LORAZEPAM INJ 2 MG/1 ML VIAL IV ONE (15:57)
[2017-12-12] MEDS ORDERED: LORAZEPAM INJ 2 MG/1 ML VIAL ONE (16:05)
[2017-12-12] MEDS ORDERED: FLUMAZENIL INJ 0.5 MG/5 ML VIAL ONE ×4 (16:17→16:38)
[2017-12-12 16:45] LABS: ARTERIAL BLOOD BASE EXCESS 16.1 mmol/L; ARTERIAL BLOOD H2CO3 2.26 mmol/L (1.05-1.35); ARTERIAL BLOOD HCO3 44.6 mmol/L (20-26); ARTERIAL BLOOD O2 SATURATION 95.4 % (94-98); ARTERIAL BLOOD PH 7.39 (7.35-7.45); ARTERIAL BLOOD PO2 81.9 mmHg (80-100); ARTERIAL BLOOD TOTAL CO2 46.9 mmol/L (23-27)
[2017-12-12] MEDS ORDERED: FUROSEMIDE INJ/PF 40 MG/4 ML SDV ONE (16:45)
[2017-12-12 16:50] LABS: ARTERIAL BLOOD FIO2 35%
[2017-12-12 16:52] LABS: ARTERIAL BLOOD PCO2 75.2 mmHg (35-45)
[2017-12-12] MEDS ORDERED: DIGOXIN INJ 0.5 MG/2 ML AMPULE ONE ×2 (17:00→17:24)
[2017-12-12 17:04] LABS: ABSOLUTE BASOPHILS # (AUTO) 0.1 10^3/uL (0.0-0.2); ABSOLUTE EOSINOPHILS # (AUTO) 0.2 10^3/uL (0.0-0.6); ABSOLUTE LYMPHOCYTES (AUTO) 0.9 10^3/uL (0.5-4.7); ABSOLUTE MONOCYTES (AUTO) 1.2 10^3/uL (0.1-1.4); ABSOLUTE NEUT (AUTO) 3.8 10^3/uL (1.7-8.2); BASOPHILS % (AUTO) 0.9 % (0-2); EOSINOPHILS % (AUTO) 2.7 % (0-6); HEMATOCRIT 37.8 % (37.9-51.0); LYMPHOCYTES % (AUTO) 15.3 % (13-45); MEAN CORPUSCULAR HGB CONC 31.7 g/dL (32.0-36.0); MEAN CORPUSCULAR VOLUME 82 fl (80-97); MONOCYTES % (AUTO) 19.1 % (3-13); PLATELET COUNT 167 10^3/uL (150-450); RED CELL DISTRIBUTION WIDTH 19.9 % (11.5-14.0); TOTAL CELLS COUNTED % (AUTO) 100 %; WHITE BLOOD COUNT 6.1 10^3/uL (4.0-10.5)
[2017-12-12 17:18] LABS: ANION GAP 14 (5-19); BLOOD UREA NITROGEN 30 mg/dL (7-20); CALCIUM 8.6 mg/dL (8.4-10.2); CARBON DIOXIDE 38 mmol/L (22-30); CHLORIDE 93 mmol/L (98-107); GLUCOSE 117 mg/dL (75-110); POTASSIUM 4.1 mmol/L (3.6-5.0); SODIUM 145.1 mmol/L (137-145)
[2017-12-12 17:20] LABS: CREATINE KINASE 32 U/L (55-170)
[2017-12-12 17:21] LABS: INTERNATIONAL RATION (INR) 1.18; PROTHROMBIN TIME 15.6 SEC (11.4-15.4)
[2017-12-12 17:33] LABS: CREATINE KINASE MB 1.36 ng/mL (<4.55); TROPONIN I 0.073 ng/mL
--- NOTE | 2017-12-12 17:35 | RADIOLOGY REPORT (SQ) ---
EXAM DESCRIPTION: CHEST SINGLE VIEW COMPLETED DATE/TIME: 12/12/2017 5:12 pm REASON FOR STUDY: Pleural Effusion COMPARISON: AP chest 12/12/2017, 12/11/2017, 10/12/2017 CT chest 09/25/2017 EXAM PARAMETERS: NUMBER OF VIEWS: One view. TECHNIQUE: Single frontal radiographic view of the chest acquired. RADIATION DOSE: NA LIMITATIONS: None. FINDINGS: LUNGS AND PLEURA: Hazy opacity over the right and left lower chest likely from a combinati on of basilar airspace disease and pleural fluid. This is unchanged from earlier today MEDIASTINUM AND HILAR STRUCTURES: No masses. Contour normal. HEART AND VASCULAR STRUCTURES: Stable massive cardiomegaly BONES: No acute findings. HARDWARE: Left-sided single lead pacemaker in good positioning. Old right neck surgical clips OTHER: No other significant finding. IMPRESSION: Stable massive cardiomegaly and opacification of the right and left lower chest from bib asilar airspace disease and pleural effusions TECHNICAL DOCUMENTATION: JOB ID: [id number] [employer]- All Rights Reserved Reading location - IP/workstation name: [email or web address]-ON LICENSE OF [email or web address]
[2017-12-12] MEDS ORDERED: NORMAL SALINE 1000 ML 1,000 ML IV ONE (17:45)
[2017-12-12] MEDS ORDERED: DEXTROSE 5%-WATER 500 ML with AMIODARONE HCL 900 MG IV PRN ×2 (17:53)
[2017-12-12] MEDS ORDERED: AMIODARONE HCL 150 MG in DEXTROSE 5%-WATER 100 ML IV ONE (17:53)
[2017-12-12] MEDS ORDERED: NOREPINEPHRINE BITARTRATE INJ/PF 4 MG/4 ML SDV IV ONE (18:01)
[2017-12-12] MEDS ORDERED: PROPOFOL INJ 200 MG/20 ML VIAL IV ONE (18:08)
[2017-12-12] MEDS ORDERED: PROPOFOL 1,000 MG/100 ML INFUS..BTL IV ONE (18:21)
[2017-12-12] MEDS: FAMOTIDINE INJ/PF 20 MG/2 ML SDV IV SCH (20:25)
[2017-12-12] MEDS: DOPAMINE HCL/DEXTROSE 5%-WATER 800 MG/250 ML RTUINJ IV PRN ×2 (20:25→20:27)
[2017-12-12] MEDS ORDERED: DEXTROSE 5%-WATER 250 ML with NOREPINEPHRINE BITARTRATE 4 MG IV PRN ×2 (20:40)
--- NOTE | 2017-12-12 20:51 | Progress Note ---
Provider Note Provider Note: Patient seen and examined in the unit. Patient noted to have pulmonary edema, pleural effusion and atrial fibrillation with rapid ventricular response. Case was discussed with hospitalist. Advised patient be given extra dose of digoxin and start on amiodarone bolus and drip protocol. Patient is critically ill. It seems patient has a history of poor LVEF but would recommend obtaining a stat echo for further assessment and management. Agree with Levophed drip to maintain blood pressure. If patient continues to deteriorate may consider tertiary care referral for other support, such as intra-aortic balloon pump/LVAD/other circulatory support. Overall prognosis on the poor side at this time.
--- NOTE | 2017-12-12 21:06 | PDOC PROGRESS REPORT ---
Subjective Progress Note for:: 12/12/17 Subjective:: The patient is a 62-year-old male with a past medical history of systolic CHF ( EF of 25-30%), CAD, KS, CVA, hyperlipidemia, hypertension, asthma, COPD, VIOLETA, insulin-dependent diabetes mellitus, diverticulitis, GERD, chronic anemia who was admitted on 12/11/17 for CHF exacerbation. The patient was seen on morning rounds. He was found sitting upright in the chair at high Bazan's on nasal cannula 4 L/min. The patient was noted to be mildly tachypneic in the mid 20s, but did speak in full sentences (though with expressive aphasia secondary to remote CVA; at baseline per nursing staff who are familiar with the patient). The patient reported that he felt short of breath but otherwise denies complaints. He denied fever, headaches, dizziness, chest pain, palpitations, abdominal pain, nausea vomiting and diarrhea. Attempts were made for the patient to receive a CT of the chest to evaluate pleural effusions, rule out pneumonia and pulmonary embolus. Unfortunately, the patient would not tolerate lying supine for testing. Interventional radiology was unable to provide thoracentesis for palliative pleural effusion secondary to having received Lovenox DVT prophylaxis this morning. Surgery was consulted and requested to evaluate the patient for bedside thoracentesis. He was provided IV Haldol 5 mg 1 for acute agitation following return from radiology. A stat ABG revealed partially compensated respiratory acidosis with a pH 7.37, PCO2 of 79.4, PaO2 of 87.2, bicarb of 44.6. The patient was upgraded to IMCU with BiPAP orders placed. Shortly after arrival to the third floor, nursing notified that the patient was again acutely agitated and claustrophobic; pulling at BiPAP mask and unable to be calmed. He was provided IV Ativan 2 mg 1. Within minutes of receiving Ativan, the patient became tachycardic with a heart rate to 160s, hypoxic while on BiPAP, and unresponsive. Ativan was reversed with serial Romazicon 5 without improvement in hypoxia, tachycardia, or hypotension. The patient was intermittently awake and alert but more altered than baseline. The patient was provided IV digoxin without resolution of tachycardia; cardiology was consulted emergently with recommendations for amiodarone bolus and drip. Unfortunately, the patient continued to deteriorate and ultimately required bedside intubation. He was subsequently transferred to the ICU. Reason For Visit: ACUTE ON CHRONIC SYSTOLIC HEART FAILURE Physical Exam Vital Signs: Temp Pulse Resp BP Pulse Ox 97.5 F 88 16 115/88 H 99 12/12/17 20:00 12/12/17 18:00 12/12/17 18:00 12/12/17 18:00 12/12/17 18:00 Intake & Output 12/11/17 12/12/17 12/13/17 06:59 06:59 06:59 Intake Total 360 Output Total 75 450 Balance -75 -90 Weight 106.7 kg General appearance: PRESENT: obese, well-developed, well-nourished, other - Sedated, intubated, mechanically intubated. Head exam: PRESENT: atraumatic, normocephalic, other - Nasal baloon to Rt nare for epistaxis control Eye exam: PRESENT: conjunctiva pink, EOMI, PERRLA. ABSENT: scleral icterus Ear exam: PRESENT: normal external ear exam Mouth exam: PRESENT: moist, tongue midline, other - OG-tube Neck exam: ABSENT: carotid bruit, JVD, lymphadenopathy, thyromegaly Respiratory exam: PRESENT: decreased breath sounds - Bibasilar, other - Intubated and mechanically ventilated. ABSENT: rales, rhonchi, wheezes Cardiovascular exam: PRESENT: irregular rhythm, +S1, +S2. ABSENT: diastolic murmur, rubs, systolic murmur Pulses: PRESENT: normal dorsalis pedis pul Vascular exam: PRESENT: normal capillary refill GI/Abdominal exam: PRESENT: distended, normal bowel sounds, soft. ABSENT: guarding, mass, organolmegaly, rebound, tenderness Rectal exam: PRESENT: deferred Gentrourinary exam: PRESENT: indwelling catheter Extremities exam: PRESENT: +2 edema - Bilateral +2 tight pitting edema to lower extremities, other - Soft restraints bilateral lower extremities. ABSENT: calf tenderness, clubbing, pedal edema Neurological exam: PRESENT: other - Sedated Skin exam: PRESENT: dry, intact, warm. ABSENT: cyanosis, rash Results Laboratory Results: 12/12/17 16:54 12/12/17 16:54 12/11/17 12/12/17 12/12/17 20:33 11:30 11:30 WBC 4.2 RBC 4.55 Hgb 12.0 L Hct 37.6 L MCV 83 MCH 26.3 L MCHC 31.8 L RDW 19.8 H Plt Count 182 Seg Neutrophils % 61.7 Lymphocytes % 18.1 Monocytes % 16.2 H Eosinophils % 3.0 Basophils % 1.0 Absolute Neutrophils 2.6 Absolute Lymphocytes 0.8 Absolute Monocytes 0.7 Absolute Eosinophils 0.1 Absolute Basophils 0.0 Carbonic Acid HCO3/H2CO3 Ratio ABG pH ABG pCO2 ABG pO2 ABG HCO3 ABG O2 Saturation ABG Base Excess FiO2 Sodium 144.6 Potassium 4.1 Chloride 90 L Carbon Dioxide 44 H* Anion Gap 11 BUN 29 H Creatinine 1.45 H Est GFR ( Amer) 59 L Est GFR (Non-Af Amer) 49 L Glucose 194 H Calcium 8.7 Magnesium 1.7 Total Bilirubin 0.8 AST 28 ALT 22 Alkaline Phosphatase 87 Total Protein 6.8 Albumin 3.5 TSH 0.93 12/12/17 12/12/17 12/12/17 12:30 13:40 16:30 WBC RBC Hgb Hct MCV MCH MCHC RDW Plt Count Seg Neutrophils % Lymphocytes % Monocytes % Eosinophils % Basophils % Absolute Neutrophils Absolute Lymphocytes Absolute Monocytes Absolute Eosinophils Absolute Basophils Carbonic Acid Cancelled 2.39 H 2.26 H HCO3/H2CO3 Ratio Cancelled 18:1 19:1 ABG pH Cancelled 7.37 7.39 ABG pCO2 Cancelled 79.4 H* 75.2 H* ABG pO2 Cancelled 87.2 81.9 ABG HCO3 Cancelled 44.6 H 44.6 H ABG O2 Saturation Cancelled 95.9 95.4 ABG Base Excess Cancelled 15.5 16.1 FiO2 Cancelled 3L 35% Sodium Potassium Chloride Carbon Dioxide Anion Gap BUN Creatinine Est GFR ( Amer) Est GFR (Non-Af Amer) Glucose Calcium Magnesium Total Bilirubin AST ALT Alkaline Phosphatase Total Protein Albumin TSH 12/12/17 12/12/17 16:54 16:54 WBC 6.1 RBC 4.60 Hgb 12.0 L Hct 37.8 L MCV 82 MCH 26.0 L MCHC 31.7 L RDW 19.9 H Plt Count 167 Seg Neutrophils % 62.0 Lymphocytes % 15.3 Monocytes % 19.1 H Eosinophils % 2.7 Basophils % 0.9 Absolute Neutrophils 3.8 Absolute Lymphocytes 0.9 Absolute Monocytes 1.2 Absolute Eosinophils 0.2 Absolute Basophils 0.1 Carbonic Acid HCO3/H2CO3 Ratio ABG pH ABG pCO2 ABG pO2 ABG HCO3 ABG O2 Saturation ABG Base Excess FiO2 Sodium 145.1 H Potassium 4.1 Chloride 93 L Carbon Dioxide 38 H Anion Gap 14 BUN 30 H Creatinine 1.35 H Est GFR ( Amer) > 60 Est GFR (Non-Af Amer) 53 L Glucose 117 H Calcium 8.6 Magnesium 1.6 Total Bilirubin AST ALT Alkaline Phosphatase Total Protein Albumin TSH 12/11/17 12/12/17 12/12/17 20:33 02:42 02:42 Creatine Kinase 37 L CK-MB (CK-2) 1.25 Troponin I 0.069 0.064 NT-Pro-B Natriuret Pep 12/12/17 12/12/17 12/12/17 11:30 11:30 16:54 Creatine Kinase 37 L CK-MB (CK-2) 1.45 1.36 Troponin I 0.064 0.073 NT-Pro-B Natriuret Pep 4930 H 12/12/17 16:54 Creatine Kinase 32 L CK-MB (CK-2) Troponin I NT-Pro-B Natriuret Pep Impressions: Chest X-Ray 12/12/17 16:36 IMPRESSION: Stable massive cardiomegaly and opacification of the right and left lower chest from bibasilar airspace disease and pleural effusions Assessment & Plan - Diagnosis (1) Acute respiratory failure with hypoxia and hypercapnia Is this a current diagnosis for this admission?: Yes Plan: Acute respiratory failure with hypoxia and hypercapnia; secondary to CHF exacerbation resulting in bilateral pleural effusions, pulmonary edema, and tachycardia. The patient was initially admitted to the medical floor and placed on supplemental oxygen. He was provided IV diuresis overnight without improvement in his respiratory status or chest imaging. Attempts were made at obtaining a chest CTA to rule out underlying pneumonia and pulmonary embolus. Patient was unable to tolerate lying supine for exam. Interventional radiology was unable to assist with palate of thoracentesis secondary to administration of Lovenox for DVT prophylaxis. Surgery was consulted to evaluate for thoracentesis. He was upgraded to IMCU with attempts at BiPAP when an ABG revealed compensated respiratory acidosis with hypercapnia. Unfortunately, the patient was unable to tolerate BiPAP and was provided IV Ativan. Shortly thereafter, the patient acutely decompensated and ultimately required bedside intubation and mechanical ventilation. He was transferred to the ICU. Cardiology and Pulmonary services have been consulted. (2) Acute on chronic systolic CHF (congestive heart failure), NYHA class 4 Is this a current diagnosis for this admission?: Yes Plan: Echocardiogram dated July of this year revealed EF of 25-30%. The patient does have a pacemaker/AICD. Initial proBNP 2850; elevated 4930 following acute respiratory failure. Troponins were trended today; indeterminate and slowly trending upwards. Baseline troponin appears to be 0.05 The patient was diuresed overnight with IV furosemide and no significant improvement in peripheral edema, dyspnea or chest imaging. His home medication regiment was otherwise continued until the time of his ICU admission. Cardiology has since been consulted; appreciate their expert evaluation and management of this patient. (3) Chest pain Qualifiers: Chest pain type: unspecified Qualified Code(s): R07.9 - Chest pain, unspecified Is this a current diagnosis for this admission?: Yes Plan: Chest pain of unclear etiology; ACS versus pleuritic related to pleural effusions versus pulmonary embolus. Serial troponins were indeterminate but trending upward. ProBNP trended upward following acute respiratory failure. Unfortunately, was unable to rule out PE with CTA or VQ scan today secondary to patient inability to lie supine. Cardiology is now consulted; appreciate their assistance. (4) Coronary artery disease Qualifiers: Coronary Disease-Associated Artery/Lesion type: unspecified vessel or lesion type Is this a current diagnosis for this admission?: Yes (5) Pleural effusion Is this a current diagnosis for this admission?: Yes Plan: Secondary to CHF exacerbation. Plan as above. (6) Type 2 diabetes mellitus Qualifiers: Diabetes mellitus mcfp insulin use: with mcfp use Chronic kidney disease stage: stage 3 (moderate) Is this a current diagnosis for this admission?: Yes Plan: Now n.p.o. We will check Accu-Cheks before meals and at bedtime with both Humalog for sliding scale coverage and hypoglycemia protocols in place. (8) BPH (benign prostatic hyperplasia) Is this a current diagnosis for this admission?: Yes Plan: Now with Chowdhury catheter in place secondary to critical illness. (9) DVT prophylaxis Is this a current diagnosis for this admission?: Yes Plan: Subcutaneous Lovenox was initiated at time of admission. Now held secondary to possible need for thoracentesis; certainly if cardiology feels that his acute decompensation is related to ACS, will certainly order full dose Lovenox. - Time Time Spent with patient: 35 or more minutes Total Critical Time (Minutes): 90 Medications reviewed and adjusted accordingly: Yes
[2017-12-12 21:18] LABS: ABSOLUTE BASOPHILS # (AUTO) 0.1 10^3/uL (0.0-0.2); ABSOLUTE EOSINOPHILS # (AUTO) 0.1 10^3/uL (0.0-0.6); ABSOLUTE LYMPHOCYTES (AUTO) 1.1 10^3/uL (0.5-4.7); ABSOLUTE MONOCYTES (AUTO) 1.1 10^3/uL (0.1-1.4); ABSOLUTE NEUT (AUTO) 4.3 10^3/uL (1.7-8.2); EOSINOPHILS % (AUTO) 1.7 % (0-6); HEMATOCRIT 37.8 % (37.9-51.0); HEMOGLOBIN 12.1 g/dL (13.5-17.0); LYMPHOCYTES % (AUTO) 16.4 % (13-45); MEAN CORPUSCULAR HEMOGLOBIN 26.1 pg (27.0-33.4); MEAN CORPUSCULAR HGB CONC 31.9 g/dL (32.0-36.0); MEAN CORPUSCULAR VOLUME 82 fl (80-97); MONOCYTES % (AUTO) 16.4 % (3-13); PLATELET COUNT 190 10^3/uL (150-450); RED BLOOD COUNT 4.62 10^6/uL (4.35-5.55); RED CELL DISTRIBUTION WIDTH 20.2 % (11.5-14.0); SEGMENTED NEUTROPHILS % (AUTO) 64.5 % (42-78); TOTAL CELLS COUNTED % (AUTO) 100 %; WHITE BLOOD COUNT 6.7 10^3/uL (4.0-10.5)
[2017-12-12 21:37] LABS: ANION GAP 12 (5-19); BLOOD UREA NITROGEN 31 mg/dL (7-20); CALCIUM 8.8 mg/dL (8.4-10.2); CARBON DIOXIDE 38 mmol/L (22-30); CHLORIDE 94 mmol/L (98-107); CREATINE KINASE 38 U/L (55-170); GLUCOSE 139 mg/dL (75-110); SODIUM 143.8 mmol/L (137-145)
[2017-12-12 21:47] LABS: CREATINE KINASE MB 1.75 ng/mL (<4.55); TROPONIN I 0.08 ng/mL
[2017-12-12] MEDS ORDERED: LACTULOSE SYRUP 20 GM/30 ML UDCUP PO SCH (22:00)
--- NOTE | 2017-12-12 22:00 | CONSULTATION REPORT E ---
Consultation Report NAME: ALEX KNIGHT : 1955 AGE: 62Y DATE: 12/12/2017 ROOM: 605 A TO: GOOD DELAROSA M.D. FROM: BRITANY TOBIAS M.D. Requesting Physician HISTORY OF PRESENT ILLNESS: The patient is a 62-year-old -Surinamese male who came in with severe respiratory distress today and was treated for decompensated congestive heart failure. The patient's dyspnea worsened, thus, the patient was endotracheally intubated and mechanical ventilated after the patient was transferred to the floor. The patient was transferred to ICU thereafter. Consulted because of the acute respiratory failure. PAST MEDICAL HISTORY: The patient has history of congestive heart failure with ejection fraction of 25-30% based on the 2-D echo in 07/2017. Past history of coronary artery disease and heart attack in 2008. Hyperlipidemia and hypertension. The patient has history of asthma, COPD, and sleep apnea. Has history of diabetes mellitus, history of gastroesophageal reflux and arthritis, and PTSD. SURGICAL HISTORY: 1. Cardiac cath. 2. Coronary artery bypass graft. 3. Coronary stent in 1984. 4. Status post AICD. SOCIAL HISTORY: Unknown if patient ever smoked. Denies any alcohol abuse or recreational use or illicit drug use. ADVANCE DIRECTIVE: Full code. FAMILY HISTORY: History of coronary artery disease, diabetes mellitus, hypertension, and thyroid dysfunction. HOME MEDICATIONS: 1. Albuterol nebulizer treatment. 2. Albuterol inhaler. 3. Xanax. 4. Vitamin C. 5. Aspirin. 6. Symbicort. 7. Bumex. 8. Coreg. 9. Digoxin. 10. Colace. 11. Feosol. 12. Gabapentin. 13. Mucinex. 14. Claritin. 15. [place] 3 fatty acid. 16. Omeprazole. 17. Miralax. 18. Flomax. ALLERGIES: 1. CAPTOPRIL. 2. LIPITOR. 3. PLAVIX. 4. CRESTOR. 5. ZOCOR. REVIEW OF SYSTEMS: CONSTITUTIONAL: No fever, chills. EYES: No jaundice or pallor. EARS, NOSE, AND THROAT: No ear discharge, no nasal discharge. RESPIRATORY: Complained about increased shortness of breath. CARDIAC: History of heart failure and heart attack and status post cardiac bypass and status post AICD placement. GASTROINTESTINAL: No nausea, vomiting. GENITOURINARY: No dysuria or hematuria. EXTREMITIES: No joint swelling, no cellulitis. PHYSICAL EXAMINATION: GENERAL: Currently the patient is sedated, afebrile, not in apparent respiratory distress. Endotracheally intubated. VITAL SIGNS: Temperature of 97.5, heart rate of 76-87, respiratory rate of 18, saturation 100%. Blood pressure is 132/97. Oxygen saturation 100% on FiO2 of 80%, SIMV rate of 18, tidal volume of 500, pressure support of 10, PEEP of 5. EYES: No jaundice or pallor. EARS, NOSE, AND THROAT: No ear drainage noted, no nasal discharge. HEAD AND NECK: No scalp swelling, no neck tenderness. CHEST AND LUNGS: No wheezing, no rhonchi, no coarse crackles. CARDIOVASCULAR: S1, S2 distinct. Normal rate, appeared to be irregular rhythm. ABDOMEN: Flabby, positive bowel sounds, soft, nondistended. EXTREMITIES: No joint swelling, no cellulitis. LABORATORY DATA: CBC done today at 4:54 p.m. showed white count of 6.1, hemoglobin is 12, creatinine 37.8, platelet count is 167. ABG done at 2:30 p.m. showed pH of 7.39, pCO2 of 75, pO2 of 81, and ABG oxygen saturation 95%. Chemistry today showed sodium of 145, potassium 4.1, chloride 93, CO2 is 38, BUN is 30, creatinine is 1.35, glucose is 117, calcium is 8.6, magnesium is 1.6. CK is 32. NT-BNP is 4930. IMAGING STUDIES: Chest x-ray done today showed marked cardiomegaly with pulmonary congestion/pulmonary edema. ASSESSMENT: 1. Acute respiratory failure requiring invasive mechanical ventilation. 2. Congestive heart failure decompensated/pulmonary edema. 3. COPD/asthma, currently not in acute bronchospasm. PLAN/RECOMMENDATION: 1. The patient is intubated. We will optimize the ventilator support. The patient is placed on ventilator settings of SIMV PRVC rate of 18, tidal volume 500, pressure support 10, PEEP of 5, FiO2 of 80% and titrate to keep saturations 91-94%. 2. IV sedation using propofol. 3. DVT prophylaxis and GI prophylaxis. 4. Continue nebulizer treatment every 6 hours as needed. 5. Cardiology consulted and following up the patient. 6. We will check the OT tube and we will do a chest x-ray after the endotracheal intubation. DICTATING PHYSICIAN: GOOD DELAROSA MD,CHUYITA,MPH [id number] PHY#: [id number] 1949 ID: [id number] JOB#: [id number] ACCT: [id number] cc:GOOD DELAROSA M.D. > [facility]
[2017-12-12] MEDS: PROPOFOL 1,000 MG/100 ML INFUS..BTL IV PRN (22:01)
--- NOTE | 2017-12-12 22:02 | RADIOLOGY REPORT (SQ) ---
EXAM DESCRIPTION: CHEST SINGLE VIEW COMPLETED DATE/TIME: 12/12/2017 9:30 pm REASON FOR STUDY: POST INTUBATION COMPARISON: 12/12/2017 at 1700 hours NUMBER OF VIEWS: One view. TECHNIQUE: Single frontal radiographic image of the chest acquired. LIMITATIONS: None. FINDINGS: ENDOTRACHEAL TUBE: Tip approximately 3.2 cm above the level of the fransico. OTHER SUPPORT DEVICES: Nasogastric catheter is present with tip beyond the GE junction, past the infe rior margin of the image. Cardiac defibrillator. CHANGES IN RADIOGRAPHIC FINDINGS: Similar appearance of bibasilar airspace disease and effusions. HARDWARE: Cardiac defibrillator. OTHER: No other significant finding. IMPRESSION: Tubes and lines in expected position.Similar appearance of bibasilar airspace disease an d effusions. TECHNICAL DOCUMENTATION: JOB ID: [id number] [place]-72 2010 [employer]- All Rights Reserved Reading location - IP/workstation name: [employer]
--- NOTE | 2017-12-12 22:04 | EKG REPORT ---
SEVERITY:- ABNORMAL ECG - A FIB VS PAT WITH 2:1 CONDUCTION VENTRICULAR PREMATURE COMPLEX FIRST DEGREE AV BLOCK ALYSIA, CONSIDER BIATRIAL ABNORMALITIES LOW VOLTAGE IN FRONTAL LEADS CONSIDER RIGHT VENTRICULAR HYPERTROPHY BORDERLINE T ABNORMALITIES, INFERIOR LEADS BORDERLINE PROLONGED QT INTERVAL : Confirmed by: Pooja Patel 12-Dec-2017 22:03:47
[2017-12-12 22:50] LABS: ARTERIAL BLOOD BASE EXCESS 14.6 mmol/L; ARTERIAL BLOOD FIO2 80%; ARTERIAL BLOOD H2CO3 1.12 mmol/L (1.05-1.35); ARTERIAL BLOOD O2 SATURATION 98.8 % (94-98); ARTERIAL BLOOD PCO2 37.3 mmHg (35-45); ARTERIAL BLOOD PO2 114.1 mmHg (80-100); ARTERIAL BLOOD TOTAL CO2 38.1 mmol/L (23-27)
[2017-12-12 22:51] LABS: ARTERIAL BLOOD PH 7.61 (7.35-7.45)
--- NOTE | 2017-12-12 22:54 | PDOC CONSULTATION ---
Consultation Consult Date: 12/12/17 Attending physician:: KARL CAIN Consult reason:: Respiratory failure History of Present Illness Admission Date/PCP: 12/11/17 19:21 JACOBO MARTINEZ DO Patient complains of: Respiratory distress History of Present Illness: ALEX Guadarrama KNIGHT is a 62 year old male with history of multiple medical problems that would be mentioned below who presented to the emergency room with acute onset of left parasternal chest pain felt this tightness with associated dyspnea, orthopnea and paroxysmal nocturnal dyspnea which have been worsening over the last few days with associated dry cough and wheezing. He admitted to nasal congestion. He has significant dysarthria from previous CVA which makes him a fairly poor historian. When he came to the emergency room his EKG showed sinus tachycardia with a rate of 102 with PVCs and suspected right ventricular hypertrophy. He comes from [facility]. His chest x-ray showed severe cardiomegaly with moderate to large bilateral pleural effusions concerning for acute CHF. He was very tachypneic when he came to the ER with a respiratory rate of 32 that was later up to 37 but otherwise normal vital signs. He is given 81 mg chewable aspirin emergency room. He will be admitted to a telemetry bed for further evaluation and management. This history was reviewed. This afternoon, patient was noted to be in a rapid narrow complex rhythm and subsequently had significant deterioration with transient hypotension needing to be transferred to the unit. Before this happened I was called. I advised patient to get additional IV digoxin as his blood pressure was noted to be low to get control of heart rate which I felt was mostly related to atrial flutter fibrillation/PAT with 2-1 conduction. Subsequently I also ordered amiodarone bolus and drip protocol. It seems patient has a history of depressed LVEF. I was told he has a pacemaker in place. When I saw the patient, he was in the unit, he was intubated and being artificially ventilated. His blood pressure had improved however he was placed on Levophed drip. Decision was made to continue that. Past Medical History Cardiac Medical History: Reports: Congestive Heart Failure - Systolic with EF of 25-30% as of 2D echo in July 2017, Coronary Artery Disease, Myocardial Infarction - 2009, Hyperlipidema, Hypertension Pulmonary Medical History: Reports: Asthma, Bronchitis, Chronic Obstructive Pulmonary Disease (COPD), Sleep Apnea Neurological Medical History: Denies: Seizures Endocrine Medical History: Reports: Diabetes Mellitus Type 1, Diabetes Mellitus Type 2 Renal/ Medical History: Malignancy Medical History: Denies: Breast Cancer, Cervical Cancer, Ovarian Cancer GI Medical History: Reports: Diverticulitis, Gastroesophageal Reflux Disease Musculoskeltal Medical History: Reports: Arthritis Psychiatric Medical History: Reports: Post Traumatic Stress Disorder Denies: Depression Hematology: Reports: Anemia Denies: Hemophilia, Sickle Cell Disease - sickle cell trait Infectious Medical History: Past Surgical History Past Surgical History: Reports: Cardiac Catheterization, Coronary Artery Bypass Graft, Coronary Stent - 1984, Other - AICD Social History Information Source: [facility] Records Smoking Status: Unknown if Ever Smoked Frequency of Alcohol Use: None Hx Recreational Drug Use: No Drugs: None Hx Prescription Drug Abuse: No - Advance Directive Resuscitation Status: Full Code Surrogate healthcare decision maker:: Surrogate decision-maker not available at this time. Listed name is Aayush sanchez, phone #[phone] Family History Family History: CAD, DM, Hypertension, Thyroid Disfunction Parental Family History Reviewed: No - Patient not able to give a history Children Family History Reviewed: No Sibling(s) Family History Reviewed.: No Medication/Allergy Home Medications: Albuterol Sulfate [Albuterol Sulfate 2.5mg/3 mL] 1 vial NEB QIDP PRN 12/11/17 Albuterol Sulfate [Proventil Hfa] 2 puff IH Q4HP PRN 12/11/17 Alprazolam [Xanax 0.5 mg Tablet] 0.5 mg PO HSP PRN 12/11/17 Ascorbic Acid [Vitamin C 500 mg Tablet] 500 mg PO DAILY 12/11/17 Aspirin [Aspirin EC] 81 mg PO DAILY 12/11/17 Budesonide/Formoterol Fumarate [Symbicort 160-4.5 Mcg Inhaler] 2 puff IH Q12 Bumetanide [Bumex 1 mg Tablet] 1 mg PO BID 12/11/17 Carvedilol [Coreg 3.125 mg Tablet] 3.125 mg PO Q12 12/11/17 Cyclosporine 0.05% Oph Emulsio [Restasis 0.05% Oph Emulsion Pf 0.4 ml] 1 drop OU Q12 12/11/17 Digoxin [Lanoxin] 62.5 mcg PO DAILY 12/11/17 Docusate Sodium [Colace 100 mg Capsule] 200 mg PO DAILY 12/11/17 Ferrous Sulfate [Feosol 325 mg Tablet] 325 mg PO TID 12/11/17 Gabapentin [Neurontin 300 mg Capsule] 300 mg PO TID 12/11/17 Guaifenesin [Mucinex] 600 mg PO BID 12/11/17 Lactulose [Constulose 10 gm/15 mL Oral Solution] 10 ml PO QHS 12/11/17 Loratadine [Claritin 10 mg Tablet] 10 mg PO DAILY 12/11/17 [place]-3 Fatty Acids [[place]-3] 1,000 mg PO Q12 12/11/17 Omeprazole 20 mg PO DAILY 12/11/17 Polyethylene Glycol 3350 [Miralax Powder 17 gm/Packet] 1 packet PO DAILY Polyvinyl Alcohol [Artificial Tears] 2 drop OU DAILYP PRN 12/11/17 Propylene Glycol/Peg 400/Pf [Systane 0.3-0.4% Eye Drops] 1 drop OU BIDP PRN Tamsulosin HCl [Flomax 0.4 mg Cap.sr] 0.4 mg PO DAILY 12/11/17 Allergies/Adverse Reactions: captopril [From Capoten] Allergy (Severe, Verified 10/08/17 15:52) Angioedema atorvastatin calcium [From Lipitor] Allergy (Intermediate, Verified 10/08/17 15: 52) Angioedema clopidogrel [From Plavix] Allergy (Verified 10/08/17 15:52) rosuvastatin [From Crestor] Allergy (Verified 10/08/17 15:52) simvastatin [From Zocor] Allergy (Verified 10/08/17 15:52) Angioedema Review of Systems ROS unobtainable: Due to endotracheal tube Physical Exam Vital Signs: Temp Pulse Resp BP Pulse Ox 97.5 F 88 16 115/88 H 100 12/12/17 20:00 12/12/17 18:00 12/12/17 18:00 12/12/17 18:00 12/12/17 20:00 Intake & Output 12/11/17 12/12/17 12/13/17 06:59 06:59 06:59 Intake Total 360 Output Total 75 450 Balance -75 -90 Weight 106.7 kg Exam: GENERAL: well-nourished and in no acute distress. Patient is intubated and sedated. Orientation cannot be checked HEAD: Atraumatic, normocephalic. EYES: Pupils equal round and reactive to light, extraocular movements could not be checked, sclera anicteric, conjunctiva are normal. ENT: TMs normal, nares patent, oropharynx clear without exudates. Moist mucous membranes. No oral ulcerations or bleeding gums noted NECK: supple without lymphadenopathy, JVD difficult to evaluate but possibly mildly elevated.. Trachea is central. No cervical or axillary lymphadenopathy noted. Carotids are 2+ LUNGS: Breath sounds mostly clear to auscultation patient is noted to have bibasal crackles at the extreme bases. Diminished breath sounds noted both bases along with dullness. CHEST: Palpation of the chest wall shows no significant chest wall tenderness or abnormalities. HEART: [place] [employer]AM[employer], No PSH, 2/6 NITISH aortic area, 1/6 daly systolic murmur mitral area , no rubs or gallops. ABDOMEN: Soft, no significant tenderness appreciated, normoactive bowel sounds. No guarding, no rebound. No rigidity noted . No masses appreciated. EXTREMITIES: Pedal pulses are 1-2+, no calf tenderness noted, 2+ pedal edema noted. No clubbing or cyanosis. NEUROLOGICAL: The patient cannot participate in the neurological exam but no facial asymmetry noted. Extremities slightly hypotonic PSYCH: This cannot be evaluated. Patient cannot participate. SKIN: No significant ecchymosis, rash, or signs of pruritus noted. MUSCULOSKELETAL EXAM: No significant joint swelling noted. Patient cannot participate in musculoskeletal exam Results Laboratory Results: 12/12/17 16:54 12/12/17 16:54 12/11/17 12/12/17 12/12/17 20:33 11:30 11:30 WBC 4.2 RBC 4.55 Hgb 12.0 L Hct 37.6 L MCV 83 MCH 26.3 L MCHC 31.8 L RDW 19.8 H Plt Count 182 Seg Neutrophils % 61.7 Lymphocytes % 18.1 Monocytes % 16.2 H Eosinophils % 3.0 Basophils % 1.0 Absolute Neutrophils 2.6 Absolute Lymphocytes 0.8 Absolute Monocytes 0.7 Absolute Eosinophils 0.1 Absolute Basophils 0.0 Carbonic Acid HCO3/H2CO3 Ratio ABG pH ABG pCO2 ABG pO2 ABG HCO3 ABG O2 Saturation ABG Base Excess FiO2 Sodium 144.6 Potassium 4.1 Chloride 90 L Carbon Dioxide 44 H* Anion Gap 11 BUN 29 H Creatinine 1.45 H Est GFR ( Amer) 59 L Est GFR (Non-Af Amer) 49 L Glucose 194 H Calcium 8.7 Magnesium 1.7 Total Bilirubin 0.8 AST 28 ALT 22 Alkaline Phosphatase 87 Total Protein 6.8 Albumin 3.5 TSH 0.93 12/12/17 12/12/17 12/12/17 12:30 13:40 16:30 WBC RBC Hgb Hct MCV MCH MCHC RDW Plt Count Seg Neutrophils % Lymphocytes % Monocytes % Eosinophils % Basophils % Absolute Neutrophils Absolute Lymphocytes Absolute Monocytes Absolute Eosinophils Absolute Basophils Carbonic Acid Cancelled 2.39 H 2.26 H HCO3/H2CO3 Ratio Cancelled 18:1 19:1 ABG pH Cancelled 7.37 7.39 ABG pCO2 Cancelled 79.4 H* 75.2 H* ABG pO2 Cancelled 87.2 81.9 ABG HCO3 Cancelled 44.6 H 44.6 H ABG O2 Saturation Cancelled 95.9 95.4 ABG Base Excess Cancelled 15.5 16.1 FiO2 Cancelled 3L 35% Sodium Potassium Chloride Carbon Dioxide Anion Gap BUN Creatinine Est GFR ( Amer) Est GFR (Non-Af Amer) Glucose Calcium Magnesium Total Bilirubin AST ALT Alkaline Phosphatase Total Protein Albumin TSH 12/12/17 12/12/17 16:54 16:54 WBC 6.1 RBC 4.60 Hgb 12.0 L Hct 37.8 L MCV 82 MCH 26.0 L MCHC 31.7 L RDW 19.9 H Plt Count 167 Seg Neutrophils % 62.0 Lymphocytes % 15.3 Monocytes % 19.1 H Eosinophils % 2.7 Basophils % 0.9 Absolute Neutrophils 3.8 Absolute Lymphocytes 0.9 Absolute Monocytes 1.2 Absolute Eosinophils 0.2 Absolute Basophils 0.1 Carbonic Acid HCO3/H2CO3 Ratio ABG pH ABG pCO2 ABG pO2 ABG HCO3 ABG O2 Saturation ABG Base Excess FiO2 Sodium 145.1 H Potassium 4.1 Chloride 93 L Carbon Dioxide 38 H Anion Gap 14 BUN 30 H Creatinine 1.35 H Est GFR ( Amer) > 60 Est GFR (Non-Af Amer) 53 L Glucose 117 H Calcium 8.6 Magnesium 1.6 Total Bilirubin AST ALT Alkaline Phosphatase Total Protein Albumin TSH 12/11/17 12/12/17 12/12/17 20:33 02:42 02:42 Creatine Kinase 37 L CK-MB (CK-2) 1.25 Troponin I 0.069 0.064 NT-Pro-B Natriuret Pep 12/12/17 12/12/17 12/12/17 11:30 11:30 16:54 Creatine Kinase 37 L CK-MB (CK-2) 1.45 1.36 Troponin I 0.064 0.073 NT-Pro-B Natriuret Pep 4930 H 12/12/17 16:54 Creatine Kinase 32 L CK-MB (CK-2) Troponin I NT-Pro-B Natriuret Pep EKG Comments: Showed overall low voltage QRS complex with irregular heart rhythm, most likely related to atrial flutter fibrillation with varied conduction. Impressions: Chest X-Ray 12/12/17 16:36 IMPRESSION: Stable massive cardiomegaly and opacification of the right and left lower chest from bibasilar airspace disease and pleural effusions Assessment & Plan - Diagnosis (1) Acute on chronic systolic CHF (congestive heart failure), NYHA class 4 Is this a current diagnosis for this admission?: Yes (2) Acute respiratory failure with hypoxia and hypercapnia Is this a current diagnosis for this admission?: Yes (3) Coronary artery disease Qualifiers: Coronary Disease-Associated Artery/Lesion type: unspecified vessel or lesion type Associated angina: angina presence unspecified Is this a current diagnosis for this admission?: Yes (4) Pleural effusion Is this a current diagnosis for this admission?: Yes (5) Type 2 diabetes mellitus 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 Currently patient hypotensive. Agree with intubation and mechanical ventilation. Recommend diuretics once blood pressure is improved. Recommend restarting carvedilol, entresto, UZMA inhibitor/ARB as tolerated by blood pressure. Atrial flutter fibrillation with rapid ventricular response: Continue amiodarone bolus and drip protocol and subsequently switched to p.o. amiodarone. Continue digoxin as needed for rate control. Recommend full dose anticoagulation with either Eliquis or other alternatives to prevent future strokes. Acute respiratory failure with hypoxemia and hypercapnia: Continue with mechanical ventilation and oxygenation. Recommend pulmonary consultation. Coronary artery disease: Patient has a history of it. Currently not able to evaluate any further. A 2D echocardiogram is being obtained to look for any acute or chronic wall motion abnormalities. Pleural effusion: Possibly related to CHF. May consider diagnostic thoracentesis once patient is improved. Obstructive sleep apnea syndrome: Patient will benefit from nightly CPAP therapy but currently intubated and ventilated. History of cerebrovascular accident: Patient at high risk of recurrence. Recommend full dose anticoagulation if there are no contraindication. - Time Time Spent: 50 to 70 Minutes - More than 50% of the time spent coordinating care , discussing management plans with involved caregivers. Management plans discussed with involved personnels. Medical decision making was of moderate to high complexity, patient's has multiple comorbidities. Medications reviewed and adjusted accordingly: Yes
[2017-12-13] MEDS ORDERED: NOREPINEPHRINE BITARTRATE INJ/PF 4 MG/4 ML SDV IV ONE (00:57)
[2017-12-13] MEDS: PROPOFOL 1,000 MG/100 ML INFUS..BTL IV PRN ×2 (01:02→09:47)
[2017-12-13 01:20] LABS: ARTERIAL BLOOD BASE EXCESS 16.7 mmol/L; ARTERIAL BLOOD H2CO3 1.19 mmol/L (1.05-1.35); ARTERIAL BLOOD HCO3 39.5 mmol/L (20-26); ARTERIAL BLOOD O2 SATURATION 94.6 % (94-98); ARTERIAL BLOOD PCO2 39.4 mmHg (35-45); ARTERIAL BLOOD PO2 59.6 mmHg (80-100); ARTERIAL BLOOD TOTAL CO2 40.7 mmol/L (23-27)
[2017-12-13 01:22] LABS: ARTERIAL BLOOD FIO2 40%
[2017-12-13 01:23] LABS: ARTERIAL BLOOD PH 7.62 (7.35-7.45)
[2017-12-13 03:56] LABS: ABSOLUTE BASOPHILS # (AUTO) 0.1 10^3/uL (0.0-0.2); ABSOLUTE EOSINOPHILS # (AUTO) 0.2 10^3/uL (0.0-0.6); ABSOLUTE LYMPHOCYTES (AUTO) 0.8 10^3/uL (0.5-4.7); ABSOLUTE MONOCYTES (AUTO) 0.9 10^3/uL (0.1-1.4); ABSOLUTE NEUT (AUTO) 3.1 10^3/uL (1.7-8.2); BASOPHILS % (AUTO) 1.2 % (0-2); EOSINOPHILS % (AUTO) 3.7 % (0-6); HEMATOCRIT 34.9 % (37.9-51.0); HEMOGLOBIN 11.2 g/dL (13.5-17.0); MEAN CORPUSCULAR HEMOGLOBIN 26.4 pg (27.0-33.4); MEAN CORPUSCULAR VOLUME 83 fl (80-97); MONOCYTES % (AUTO) 17.2 % (3-13); PLATELET COUNT 158 10^3/uL (150-450); RED BLOOD COUNT 4.24 10^6/uL (4.35-5.55); RED CELL DISTRIBUTION WIDTH 19.8 % (11.5-14.0); SEGMENTED NEUTROPHILS % (AUTO) 61.9 % (42-78); TOTAL CELLS COUNTED % (AUTO) 100 %; WHITE BLOOD COUNT 5.1 10^3/uL (4.0-10.5)
[2017-12-13 04:27] LABS: CREATINE KINASE MB 1.61 ng/mL (<4.55)
[2017-12-13 04:33] LABS: TROPONIN I 0.114 ng/mL
[2017-12-13] MEDS ORDERED: AMIODARONE HCL INJ 150 MG/3 ML VIAL IV ONE (08:00)
[2017-12-13] MEDS ORDERED: DOPAMINE HCL/D5W 800 MG/250 ML RTU BAG IV ONE (08:00)
[2017-12-13 08:31] LABS: ARTERIAL BLOOD BASE EXCESS 17.1 mmol/L; ARTERIAL BLOOD H2CO3 1.23 mmol/L (1.05-1.35); ARTERIAL BLOOD HCO3 40.2 mmol/L (20-26); ARTERIAL BLOOD O2 SATURATION 95.8 % (94-98); ARTERIAL BLOOD PCO2 40.8 mmHg (35-45); ARTERIAL BLOOD PO2 66.6 mmHg (80-100); ARTERIAL BLOOD TOTAL CO2 41.4 mmol/L (23-27)
[2017-12-13 08:38] LABS: ARTERIAL BLOOD FIO2 40%
[2017-12-13 08:39] LABS: ARTERIAL BLOOD PH 7.61 (7.35-7.45)
[2017-12-13] MEDS: CARVEDILOL 3.125 MG TABLET PO SCH (09:49)
[2017-12-13] MEDS: TAMSULOSIN HCL 0.4 MG CAP.SR.24H PO SCH (09:49)
[2017-12-13 10:06] LABS: HEMOGLOBIN 11.7 g/dL (13.5-17.0); MEAN CORPUSCULAR HEMOGLOBIN 25.9 pg (27.0-33.4); MEAN CORPUSCULAR HGB CONC 31.7 g/dL (32.0-36.0); MEAN CORPUSCULAR VOLUME 82 fl (80-97); PLATELET COUNT 175 10^3/uL (150-450); RED BLOOD COUNT 4.52 10^6/uL (4.35-5.55); RED CELL DISTRIBUTION WIDTH 20.2 % (11.5-14.0); WHITE BLOOD COUNT 6.7 10^3/uL (4.0-10.5)
[2017-12-13 10:08] LABS: INTERNATIONAL RATION (INR) 1.23; PROTHROMBIN TIME 16.1 SEC (11.4-15.4)
[2017-12-13] MEDS: FUROSEMIDE INJ/PF 40 MG/4 ML SDV IV SCH (10:12)
[2017-12-13] MEDS: DIGOXIN 0.125 MG TABLET PO SCH (10:13)
[2017-12-13] MEDS: DOCUSATE SODIUM 100 MG CAPSULE PO SCH (10:13)
[2017-12-13] MEDS: GUAIFENESIN 600 MG TABLET.SA PO SCH (10:13)
[2017-12-13] MEDS: ASPIRIN 81 MG TABLET, ENT COATED PO SCH (10:14)
[2017-12-13] MEDS: FERROUS SULFATE 325 MG TABLET PO SCH ×2 (10:14→13:14)
[2017-12-13] MEDS: ASCORBIC ACID 500 MG TABLET PO SCH (10:14)
[2017-12-13] MEDS: OMEGA-3 ACID ETHYL ESTERS 1 GM CAPSULE PO SCH (10:14)
[2017-12-13] MEDS: GABAPENTIN 300 MG CAPSULE PO SCH ×2 (10:14→13:15)
[2017-12-13] MEDS: POLYETHYLENE GLYCOL 3350 POWDER 17 GM/1 PACKET PO SCH (10:15)
[2017-12-13] MEDS: CYCLOSPORINE 0.05% OPH EMULSIO 0.4 ML DROPERETTE OU SCH (10:15)
[2017-12-13 10:30] LABS: ALANINE AMINOTRANSFERASE 22 U/L (21-72); ALKALINE PHOSPHATASE 86 U/L (38-126); ASPARTATE AMINO TRANSFERASE 28 U/L (17-59); BILIRUBIN,DIRECT 0.7 mg/dL (0.0-0.4); BILIRUBIN,TOTAL 1.8 mg/dL (0.2-1.3); BLOOD UREA NITROGEN 30 mg/dL (7-20); CALCIUM 8.6 mg/dL (8.4-10.2); CHLORIDE 93 mmol/L (98-107); GLUCOSE 99 mg/dL (75-110); PHOSPHORUS 2.1 mg/dL (2.5-4.5); SODIUM 144.9 mmol/L (137-145); TOTAL PROTEIN 6.1 g/dL (6.3-8.2)
[2017-12-13 10:33] LABS: CREATINE KINASE MB 1.4 ng/mL (<4.55)
[2017-12-13 10:36] LABS: ANION GAP 13 (5-19); CARBON DIOXIDE 39 mmol/L (22-30)
[2017-12-13 10:40] LABS: TROPONIN I 0.123 ng/mL
[2017-12-13] MEDS ORDERED: VANCOMYCIN HCL 0 MG in DEXTROSE 5%-WATER 250 ML IV NR (10:45)
[2017-12-13 11:39] LABS: ARTERIAL BLOOD H2CO3 1.55 mmol/L (1.05-1.35); ARTERIAL BLOOD HCO3 43.1 mmol/L (20-26); ARTERIAL BLOOD O2 SATURATION 97.6 % (94-98); ARTERIAL BLOOD PCO2 51.4 mmHg (35-45); ARTERIAL BLOOD PH 7.54 (7.35-7.45); ARTERIAL BLOOD TOTAL CO2 44.6 mmol/L (23-27)
[2017-12-13 11:40] LABS: ARTERIAL BLOOD FIO2 40%
[2017-12-13] MEDS ORDERED: LEVOFLOXACIN 750 MG/D5W RTU 750 MG/150 ML RTUPB IV ONE (12:00)
--- NOTE | 2017-12-13 12:04 | XCELERA REPORT ---
[address] [address] Transthoracic Echocardiogram Report Name: ALEX KNIGHT Age: 62 yrs Gender: Male : 1955 Patient Status: Inpatient Patient Location: ICU^605^A Study Date: 12/12/2017 09:20 PM Height: 66 in Weight: 235 lb BSA: 2.1 m2 Procedure: A complete two-dimensional transthoracic echocardiogram was performed (2D, M-mode, spectral and color flow Doppler). The study was technically difficult with many images being suboptimal in quality. Reason For Study: CHF, sinus tach Ordering Physician: OLIVIA HAYESC Performed By: Teja Arroyo Interpretation Summary LV EF is 25% Left ventricular systolic function is severely reduced. There is mild concentric left ventricular hypertrophy. The left ventricle is moderately dilated. Doppler measurements suggest reversible restrictive left ventricular relaxation, which is associated with grade III/IV or moderate diastolic dysfunction Regional wall motion abnormalities cannot be excluded due to limited visualization. The right ventricle is moderately dilated. The right ventricular systolic function is moderately reduced. The right atrium is mildly dilated. The left atrium is mildly dilated. There is a mild to moderate amount of mitral regurgitation There is no mitral valve stenosis. There is a mild to moderate amount of aortic regurgitation There is no aortic valve stenosis There is a mild amount of tricuspid regurgitation There is moderate to severe pulmonary hypertension by echo Best estimated RVSP is approximately 60 mm/Hg. The aortic root is not well visualized but is probably normal size. The inferior vena cava appeared dilated and decreased < 50% with respiration (RAP 15-20 mmHg) Small to moderate pericardial effusion. There are no echocardiographic or Doppler indications for cardiac tamponade Moderate size left pleural effusion. MMode/2D Measurements & Calculations RVDd: 4.0 cm LVIDd: 6.5 cmFS: 14.1 % Ao root diam: 3.5 cm IVSd: 0.98 cm LVIDs: 5.6 cmEDV(Teich): 213.2 ml LVPWd: 1.2 cmESV(Teich): 150.7 ml Ao root area: 9.4 cm2 EF(Teich): 29.3 % LA dimension: 4.7 cm LVOT diam: 2.1 cm LVOT area: 3.6 cm2 Doppler Measurements & Calculations MV E max vinicio: MV P1/2t max vinicio: Ao V2 max: AI max vinicio: 105.6 cm/sec 134.8 cm/sec 112.9 cm/sec 213.9 cm/sec MV P1/2t: 71.7 msec Ao max PG: AI max PG: MVA(P1/2t): 3.1 cm2 5.1 mmHg 18.3 mmHg MV dec slope: REFUGIO(V,D): 2.7 cm2 AI dec slope: 550.7 cm/sec2 37.7 cm/sec2 MV dec time: AI P1/2t: 0.17 sec 1664 msec LV V1 max PG: TV V2 max: PA V2 max: PI end-d vinicio: 2.8 mmHg 356.2 cm/sec 78.0 cm/sec 161.5 cm/sec LV V1 max: TV max P.7 mmHgPA max P.0 cm/sec 2.4 mmHg LV dP/dt: 1136 mmHg/s Left Ventricle The left ventricle is moderately dilated. There is mild concentric left ventricular hypertrophy. Left ventricular systolic function is severely reduced. LV EF is 25%. Doppler measurements suggest reversible restrictive left ventricular relaxation, which is associated with grade III/IV or moderate diastolic dysfunction. Regional wall motion abnormalities cannot be excluded due to limited visualization. Right Ventricle The right ventricle is moderately dilated. The right ventricular systolic function is moderately reduced. Atria The right atrium is mildly dilated. The left atrium is mildly dilated. Mitral Valve The mitral valve leaflets are sclerotic, but show no functional abnormalities. There is no mitral valve stenosis. There is a mild to moderate amount of mitral regurgitation. Aortic Valve The aortic valve is not well visualized secondary to technical limitations. There is no aortic valve stenosis. There is a mild to moderate amount of aortic regurgitation. Tricuspid Valve The tricuspid valve is not well visualized secondary to technical limitations. There is no tricuspid stenosis. There is a mild amount of tricuspid regurgitation. There is moderate to severe pulmonary hypertension by echo. Best estimated RVSP is approximately 60 mm/Hg. Pulmonic Valve The pulmonic valve is not well visualized. Great Vessels The aortic root is not well visualized but is probably normal size. The inferior vena cava appeared dilated and decreased < 50% with respiration (RAP 15-20 mmHg). Effusions Small to moderate pericardial effusion. There are no echocardiographic or Doppler indications for cardiac tamponade. Moderate size left pleural effusion. : GORDON HAYES > Pooja Patel
--- NOTE | 2017-12-13 12:07 | RADIOLOGY REPORT (SQ) ---
EXAM DESCRIPTION: CHEST SINGLE VIEW COMPLETED DATE/TIME: 12/13/2017 11:03 am REASON FOR STUDY: mechanical ventilation COMPARISON: 12/12/2017 NUMBER OF VIEWS: One view. TECHNIQUE: Single frontal radiographic view of the chest acquired. LIMITATIONS: Patient positioning FINDINGS: ENDOTRACHEAL TUBE: The endotracheal tube tip projects just above the level of the fransico. OTHER SUPPORT DEVICES: An enteric tube is seen however the distal tip is not clearly identified. LUNGS AND PLEURA: Stable bibasilar airspace disease MEDIASTINUM AND HILAR STRUCTURES: Unchanged HEART AND VASCULAR STRUCTURES: Unchanged BONES: No acute findings. HARDWARE: None in the chest. OTHER: No other significant finding. IMPRESSION: Endotracheal tube projects just above the level the fransico. Consider repeat portable ch est x-ray with attention to patient positioning. Lung exam is unchanged given differences in techniq ue. TECHNICAL DOCUMENTATION: JOB ID: [id number] [employer]- All Rights Reserved Reading location - IP/workstation name: [email or web address]
[2017-12-13] MEDS ORDERED: VANCOMYCIN HCL 1,250 MG in DEXTROSE 5%-WATER 250 ML IV ONE (13:00)
[2017-12-13 14:32] VITALS: BP 94/51
--- NOTE | 2017-12-13 14:57 | PDOC TRANSFER SUMMARY ---
General Admission Date/PCP: 12/11/17 19:21 JACOBO MARTINEZ DO Resuscitation Status: Full Code - Transfer Diagnosis (1) Cardiogenic shock Is this a current diagnosis for this admission?: Yes Diagnosis Summary: Following atrial fibrillation with RVR, now rate controlled on amiodarone drip, and setting of severe systolic CHF. Echocardiogram at our facility from July 2017 revealed LVEF of 25-30%. Repeat echocardiogram obtained 12/12/2017 again reveals LVEF of 25% with severely reduced systolic function, dilated cardiomyopathy, concentric left ventricular hypertrophy, moderate mitral regurgitation, moderate aortic regurgitation, and moderate to severe pulmonary hypertension. The patient is currently in NSR at a rate of 80 with frequent PACs while on amiodarone drip. Blood pressures are adequate while on Levophed. In-house credit risk modeler services recommended transfer to a tertiary care facility for management of cardiogenic shock. (2) Acute respiratory failure with hypoxia and hypercapnia Is this a current diagnosis for this admission?: Yes Diagnosis Summary: Acute on chronic respiratory failure with hypercapnia and hypoxemia; secondary to cardiogenic shock, atrial fibrillation with RVR, and CHF exacerbation in the setting of obesity, VIOLETA, COPD. The patient is home O2 dependent at 2 L/min via nasal cannula. He is currently intubated and mechanically ventilated. Most recent ABG (12/13/17 at 1130) 7.54/51.4/90.1/43.1 on PRVC w/ Pressure support at rate of 14, tidal volume 400, pressure support 10, PEEP 5, FiO2 40%. (3) Acute on chronic systolic CHF (congestive heart failure), NYHA class 4 Is this a current diagnosis for this admission?: Yes Diagnosis Summary: Echocardiogram from July 2017 reveals EF of 25-30%. The patient does have a pacemaker/AICD. Repeat echocardiogram obtained 12/12/17 confirms LVEF of 25%; see above. The patient did receive IV furosemide for diuresis without improvement in peripheral edema, dyspnea, or chest imaging. He subsequently developed atrial fibrillation with RVR requiring Levophed for pressor support and amiodarone for rate control. ProBNP is trending down, however, troponins are trending up. (4) Chest pain Is this a current diagnosis for this admission?: Yes Diagnosis Summary: Pt complained of chest pain. Unclear etiology; ACS versus pleuritic related to pleural effusions versus pulmonary embolus. Serial troponins were initially indeterminate and continue trending upward. ProBNP trended upward following acute respiratory failure; improved today. Unfortunately, have not been able to rule out PE with CTA or VQ scan secondary to patient inability to lie supine followed by acute decompensation. Pt is currently on full dose Lovenox. (5) Pleural effusion Is this a current diagnosis for this admission?: Yes Diagnosis Summary: Secondary to CHF exacerbation. Unfortunately, interventional radiology was unable to provide thoracentesis due to recently having received DVT prophylaxis. Surgery was consulted; planned to assess for bedside thoracentesis. However, the patient acutely decompensated prior to surgical evaluation. Chest imaging today continues to demonstrate bilateral pleural effusions, although, massive cardiomegaly and patient positioning limits the study. (6) Elevated troponin Is this a current diagnosis for this admission?: Yes Diagnosis Summary: The patient did complain of nonspecific chest pain; was difficult to obtain details due to expressive aphasia. Initial troponin was indeterminately elevated at 0.054 which is at the patient' s baseline. Serial troponins remained stable initially; beginning to rise following acute respiratory failure/atrial fibrillation RVR/cardiogenic shock. Troponins continue to trend upward; 0.54--> 0.069--> 0.064--> 0.073--> 0.080--> 0.114--> 0.123 The patient has been placed on full dose Lovenox. (7) Coronary artery disease Is this a current diagnosis for this admission?: Yes Diagnosis Summary: History of CABG, cardiac cath with stenting, AICD/pacemaker, VT, hypertension, hyperlipidemia, and insulin-dependent diabetes mellitus. (8) Type 2 diabetes mellitus Is this a current diagnosis for this admission?: Yes Diagnosis Summary: IDDM (9) History of CVA (cerebrovascular accident) Is this a current diagnosis for this admission?: Yes Diagnosis Summary: The patient has a history of CVA with resultant right-sided hemiparesis and expressive aphasia. The patient has difficult to understand speech, but is able to communicate all needs. (10) BPH (benign prostatic hyperplasia) Is this a current diagnosis for this admission?: Yes (11) DVT prophylaxis Is this a current diagnosis for this admission?: Yes - Transfer Medications Home Medications: Albuterol Sulfate [Albuterol Sulfate 2.5mg/3 mL] 1 vial NEB QIDP PRN 12/11/17 Albuterol Sulfate [Proventil Hfa] 2 puff IH Q4HP PRN 12/11/17 Alprazolam [Xanax 0.5 mg Tablet] 0.5 mg PO HSP PRN 12/11/17 Ascorbic Acid [Vitamin C 500 mg Tablet] 500 mg PO DAILY 12/11/17 Aspirin [Aspirin EC] 81 mg PO DAILY 12/11/17 Budesonide/Formoterol Fumarate [Symbicort 160-4.5 Mcg Inhaler] 2 puff IH Q12 Bumetanide [Bumex 1 mg Tablet] 1 mg PO BID 12/11/17 Carvedilol [Coreg 3.125 mg Tablet] 3.125 mg PO Q12 12/11/17 Cyclosporine 0.05% Oph Emulsio [Restasis 0.05% Oph Emulsion Pf 0.4 ml] 1 drop OU Q12 12/11/17 Digoxin [Lanoxin] 62.5 mcg PO DAILY 12/11/17 Docusate Sodium [Colace 100 mg Capsule] 200 mg PO DAILY 12/11/17 Ferrous Sulfate [Feosol 325 mg Tablet] 325 mg PO TID 12/11/17 Gabapentin [Neurontin 300 mg Capsule] 300 mg PO TID 12/11/17 Guaifenesin [Mucinex] 600 mg PO BID 12/11/17 Lactulose [Constulose 10 gm/15 mL Oral Solution] 10 ml PO QHS 12/11/17 Loratadine [Claritin 10 mg Tablet] 10 mg PO DAILY 12/11/17 [place]-3 Fatty Acids [[place]-3] 1,000 mg PO Q12 12/11/17 Omeprazole 20 mg PO DAILY 12/11/17 Polyethylene Glycol 3350 [Miralax Powder 17 gm/Packet] 1 packet PO DAILY Polyvinyl Alcohol [Artificial Tears] 2 drop OU DAILYP PRN 12/11/17 Propylene Glycol/Peg 400/Pf [Systane 0.3-0.4% Eye Drops] 1 drop OU BIDP PRN Tamsulosin HCl [Flomax 0.4 mg Cap.sr] 0.4 mg PO DAILY 12/11/17 Transfer Medications: Current Medications Acetaminophen (Tylenol 325 Mg Tablet) 650 mg PO Q4HP PRN PRN Reason: pain or temp greater than 101F Stop: 01/10/18 22:59 Last Admin: 12/12/17 10:36 Dose: 650 mg Al Hydrox/Mg Hydrox/Simethicone (Maalox Plus Susp 30 Udcup) 30 ml PO Q4HP PRN PRN Reason: HEARTBURN Stop: 01/10/18 22:59 Albuterol (Ventolin 0.083% Neb 2.5 Mg/3 Ml Ampul) 2.5 mg NEB RTQIDP PRN PRN Reason: SHORTNESS OF BREATH Stop: 01/11/18 04:45 Last Admin: 12/12/17 10:46 Dose: 2.5 mg Alprazolam (Xanax 0.5 Mg Tablet) 0.5 mg PO HSP PRN PRN Reason: ANXIETY Stop: 12/18/17 23:18 Artificial Tears (Liquitears 1.4% Ophth Soln 15 Ml) 2 drop OU DAILYP PRN PRN Reason: DRY EYE(S) Stop: 01/10/18 23:18 Ascorbic Acid (Vitamin C 500 Mg Tablet) 500 mg PO DAILY GRACE Stop: 01/11/18 09:59 Last Admin: 12/13/17 10:14 Dose: 500 mg Aspirin (Ecotrin 81 Mg Ec Tablet) 81 mg PO DAILY GRACE Stop: 01/11/18 09:59 Last Admin: 12/13/17 10:14 Dose: 81 mg Carvedilol (Coreg 3.125 Mg Tablet) 3.125 mg PO Q12 GRACE Stop: 01/11/18 09:59 Last Admin: 12/13/17 09:49 Dose: Not Given Cyclosporine (Restasis 0.05% Oph Emulsion Pf 0.4 Ml) 1 drop OU Q12 GRACE Stop: 01/11/18 09:59 Last Admin: 12/13/17 10:15 Dose: 1 drop Dextrose (Dextrose Inj 50% Syringe (25 Gm/50 Ml)) 12.5 gm IV PRN PRN; Protocol PRN Reason: FOR BG 50-69 IN ALERT PATIENT Stop: 01/11/18 03:53 Dextrose (Dextrose Inj 50% Syringe (25 Gm/50 Ml)) 25 gm IV PRN PRN; Protocol PRN Reason: PER PROTOCOL Stop: 01/11/18 03:53 Digoxin (Lanoxin 0.125 Mg Tablet) 0.0625 mg PO DAILY GRACE Stop: 01/11/18 09:59 Last Admin: 12/13/17 10:13 Dose: 0.0625 mg Docusate Sodium (Colace 100 Mg Capsule) 200 mg PO DAILY [facility] Stop: 01/11/18 09:59 Last Admin: 12/13/17 10:13 Dose: 200 mg Enoxaparin Sodium (Lovenox Inj 100 Mg/1 Ml Disp.Syrin) 100 mg SUBCUT Q12 [facility] Stop: 01/12/18 21:59 Famotidine (Pepcid Inj/Pf 20 Mg/2 Ml Sdv) 20 mg IV BID [facility] Stop: 01/11/18 17:59 Last Admin: 12/12/17 20:25 Dose: Not Given Ferrous Sulfate (Feosol 325 Mg Tablet) 325 mg PO TID [facility] Stop: 01/11/18 09:59 Last Admin: 12/13/17 13:14 Dose: 325 mg Furosemide (Lasix Inj/Pf 40 Mg/4 Ml Sdv) 40 mg IV Q12 [facility] Stop: 01/11/18 09:59 Last Admin: 12/13/17 10:12 Dose: 40 mg Gabapentin (Neurontin 300 Mg Capsule) 300 mg PO TID [facility] Stop: 01/11/18 09:59 Last Admin: 12/13/17 13:15 Dose: 300 mg Glucagon (Glucagen Inj 1 Mg Vial) 1 mg IM PRN PRN; Protocol PRN Reason: Evaluate for BG < 70 Stop: 01/11/18 03:53 Glucose (Glutose 40% Gel 15 Gm Tube) 15 gm PO PRN PRN; Protocol PRN Reason: FOR BG 50-69 IN ALERT PATIENT Stop: 01/11/18 03:53 Glucose (Glutose 40% Gel 15 Gm Tube) 30 gm PO PRN PRN; Protocol PRN Reason: FOR BG < 50 IN ALERT PATIENT Stop: 01/11/18 03:53 Guaifenesin (Mucinex Sr 600 Mg Tablet.Sa) 600 mg PO BID [facility] Stop: 01/11/18 09:59 Last Admin: 12/13/17 10:13 Dose: 600 mg Propofol (Diprivan Rtu 1000 Mg/100 Ml Inf.Bottle) 1,000 mg in 100 mls @ 0 mls/ hr IV CONTINUOUS PRN; Protocol; Titrate PRN Reason: THIS MED IS NOT "PRN" Stop: 01/11/18 17:54 Last Admin: 12/13/17 09:47 Dose: 100 ml Amiodarone HCl 900 mg/ (Dextrose) 500 mls @ 0 mls/hr IV CONTINUOUS PRN; Protocol; Per Protocol PRN Reason: THIS MED IS NOT "PRN" Stop: 12/15/17 17:52 Norepinephrine Bitartrate 4 mg (/ Dextrose) 250 mls @ 0 mls/hr IV CONTINUOUS PRN; Protocol; Titrate PRN Reason: THIS MED IS NOT "PRN" Stop: 01/11/18 20:39 Last Admin: 12/13/17 01:01 Dose: 4 mg Cefepime HCl (Maxipime Rtu 1 Gm/D5w 50 Ml Premix Bag) 1 gm in 50 mls @ 100 mls/ hr IV Q12 [facility] Stop: 12/20/17 21:59 Levofloxacin/Dextrose (Levaquin Rtu 750 Mg/D5w 150 Ml Premix) 750 mg in 150 mls @ 100 mls/hr IV DAILY [facility] Stop: 12/21/17 09:59 Vancomycin HCl 1,250 mg/ (Dextrose) 250 mls @ 166.667 mls/hr IV Q12 [facility]ACE Stop: 12/20/17 21:59 Vancomycin HCl 1,250 mg/ (Dextrose) 250 mls @ 166.667 mls/hr IV NOW ONE Stop: 12/13/17 14:29 Last Admin: 12/13/17 13:14 Dose: 1,250 mg Insulin Human Lispro (Humalog Insulin 100 Unit/1 Ml 3 Ml Vial) 0 - 12 unit SUBCUT Q6HP PRN; Protocol PRN Reason: PER PROTOCOL Stop: 01/11/18 21:04 Lactulose (Cephulac Syrup 20 Gm/30 Ml Udcup) 10 gm PO QHS [facility]ACE Stop: 01/11/18 21:59 Last Admin: 12/12/17 22:15 Dose: 10 gm Magnesium Hydroxide (Milk Of Magnesia 30 Ml Udcup) 30 ml PO HSP PRN PRN Reason: FOR CONSTIPATION Stop: 01/10/18 22:59 Nitroglycerin (Nitrostat 0.4 Mg (1/150 Gr) Tabs 25/Bottle) 1 tab SL Q5MP PRN PRN Reason: FOR CHEST PAIN Stop: 01/10/18 22:59 Tlcts-8-Oonb Ethyl Esters (Lovaza 1 Gm Capsule) 1 gm PO Q12 [facility] Stop: 01/11/18 09:59 Last Admin: 12/13/17 10:14 Dose: 1 gm Ondansetron HCl (Zofran Inj/Pf 4 Mg/2 Ml Sdv) 4 mg IV Q6HP PRN PRN Reason: FOR NAUSEA/VOMITING Stop: 01/10/18 22:59 Patient Own Medication (Propylene Glycol/Peg 400/Pf [Systane 0.3-0.4% Eye Drops] ) 1 drop OU .BIDP PRN PRN Reason: DRY EYE(S) Stop: 01/10/18 23:18 Polyethylene Glycol (Miralax Powder 17 Gm/Packet) 17 gm PO DAILY [facility] Stop: 01/11/18 09:59 Last Admin: 12/13/17 10:15 Dose: 17 gm Sodium Chloride (Saline Flush 2.5 Ml Monoject Prefil Syrin) 2.5 ml IV Q8 [facility]ACE Stop: 01/11/18 05:59 Last Admin: 12/13/17 13:15 Dose: Not Given Tamsulosin HCl (Flomax 0.4 Mg Cap.Sr) 0.4 mg PO DAILY [facility]ACE Stop: 01/11/18 09:59 Last Admin: 12/13/17 09:49 Dose: Not Given - Allergies Allergies/Adverse Reactions: captopril [From Capoten] Allergy (Severe, Verified 10/08/17 15:52) Angioedema atorvastatin calcium [From Lipitor] Allergy (Intermediate, Verified 10/08/17 15: 52) Angioedema clopidogrel [From Plavix] Allergy (Verified 10/08/17 15:52) rosuvastatin [From Crestor] Allergy (Verified 10/08/17 15:52) simvastatin [From Zocor] Allergy (Verified 10/08/17 15:52) Angioedema Hospital Course Hospital Course: The patient was admitted overnight on 12/12/17 with complaint of dyspnea and increased peripheral edema. Chest x-ray revealed moderate to large bilateral pleural effusions. The patient was diuresed overnight with IV furosemide. Following morning, he continued to complain of dyspnea and was noted to have tachypnea, tachycardia, hypoxia on his baseline oxygen requirement, with unchanged chest imaging. He continued to decompensate throughout the day despite continued diuresing, increased oxygen support, nebulizer treatments, and noninvasive positive pressure support. A rapid response was called yesterday afternoon when the patient became unresponsive shortly after receiving IV Ativan. Therefore, he was initially treated with Romazicon. He was then noted to have had a rhythm change from sinus tachycardia to atrial fibrillation with RVR. Due to hypotension, diltiazem was pushed without effect. He was then provided an amiodarone bolus which achieved rate controlled atrial fibrillation. The patient remains obtunded and hypotensive. Subsequently, he was intubated and transferred to the ICU. The patient continues on amiodarone drip and currently is in a normal sinus rhythm with PACs with a heart rate 80. He is requiring Levophed for pressure support. Updated echocardiogram demonstrates LVEF of 25%, moderate diastolic dysfunction, dilated cardiomyopathy, LVH, and moderate to severe pulmonary hypertension. In-house cardiology recommends transfer to tertiary center for management of cardiogenic shock. Dr. John Moreira at [facility] was contacted; he has graciously agreed to accept this patient. Physical Exam Vital Signs: Temp Pulse Resp BP Pulse Ox 99.1 F 80 14 85/64 L 94 12/13/17 12:00 12/13/17 12:00 12/13/17 12:40 12/13/17 12:40 12/13/17 12:40 Intake & Output 12/12/17 12/13/17 12/14/17 06:59 06:59 06:59 Intake Total 1110 Output Total 75 3150 245 Balance -75 -2039 -245 Weight 101.2 kg General appearance: PRESENT: obese, other - Sedated, intubated, mechanically ventilated Head exam: PRESENT: atraumatic, normocephalic, other - nasal tampon; rt nare Eye exam: PRESENT: conjunctiva pink, PERRLA Mouth exam: PRESENT: moist, other - OG and ET tubes present Respiratory exam: PRESENT: crackles, decreased breath sounds - mid and low lung sounds; L>R, rhonchi, symmetrical, other - Mechanically ventilated Cardiovascular exam: PRESENT: RRR, +S1, +S2, systolic murmur Pulses: PRESENT: +1 pedal pulses bilateral GI/Abdominal exam: PRESENT: normal bowel sounds, soft Rectal exam: PRESENT: deferred Gentrourinary exam: PRESENT: indwelling catheter Extremities exam: PRESENT: +2 edema - Pitting edema BLE; improved from yesterday Neurological exam: PRESENT: other - Sedated Skin exam: PRESENT: dry, intact, warm Results Laboratory Results: 12/13/17 09:41 12/13/17 09:30 12/12/17 12/12/17 12/12/17 13:40 16:30 16:54 WBC RBC Hgb Hct MCV MCH MCHC RDW Plt Count Seg Neutrophils % Lymphocytes % Monocytes % Eosinophils % Basophils % Absolute Neutrophils Absolute Lymphocytes Absolute Monocytes Absolute Eosinophils Absolute Basophils Carbonic Acid 2.39 H 2.26 H HCO3/H2CO3 Ratio 18:1 19:1 ABG pH 7.37 7.39 ABG pCO2 79.4 H* 75.2 H* ABG pO2 87.2 81.9 ABG HCO3 44.6 H 44.6 H ABG O2 Saturation 95.9 95.4 ABG Base Excess 15.5 16.1 FiO2 3L 35% Sodium 145.1 H Potassium 4.1 Chloride 93 L Carbon Dioxide 38 H Anion Gap 14 BUN 30 H Creatinine 1.35 H Est GFR ( Amer) > 60 Est GFR (Non-Af Amer) 53 L Glucose 117 H Calcium 8.6 Phosphorus Magnesium 1.6 Total Bilirubin AST ALT Alkaline Phosphatase Total Protein Albumin 12/12/17 12/12/17 12/12/17 16:54 21:10 21:10 WBC 6.1 6.7 RBC 4.60 4.62 Hgb 12.0 L 12.1 L Hct 37.8 L 37.8 L MCV 82 82 MCH 26.0 L 26.1 L MCHC 31.7 L 31.9 L RDW 19.9 H 20.2 H Plt Count 167 190 Seg Neutrophils % 62.0 64.5 Lymphocytes % 15.3 16.4 Monocytes % 19.1 H 16.4 H Eosinophils % 2.7 1.7 Basophils % 0.9 1.0 Absolute Neutrophils 3.8 4.3 Absolute Lymphocytes 0.9 1.1 Absolute Monocytes 1.2 1.1 Absolute Eosinophils 0.2 0.1 Absolute Basophils 0.1 0.1 Carbonic Acid HCO3/H2CO3 Ratio ABG pH ABG pCO2 ABG pO2 ABG HCO3 ABG O2 Saturation ABG Base Excess FiO2 Sodium 143.8 Potassium 4.0 Chloride 94 L Carbon Dioxide 38 H Anion Gap 12 BUN 31 H Creatinine 1.33 H Est GFR ( Amer) > 60 Est GFR (Non-Af Amer) 54 L Glucose 139 H Calcium 8.8 Phosphorus Magnesium Total Bilirubin AST ALT Alkaline Phosphatase Total Protein Albumin 12/12/17 12/13/17 12/13/17 22:32 00:53 03:15 WBC 5.1 RBC 4.24 L Hgb 11.2 L Hct 34.9 L MCV 83 MCH 26.4 L MCHC 32.0 RDW 19.8 H Plt Count 158 Seg Neutrophils % 61.9 Lymphocytes % 16.0 Monocytes % 17.2 H Eosinophils % 3.7 Basophils % 1.2 Absolute Neutrophils 3.1 Absolute Lymphocytes 0.8 Absolute Monocytes 0.9 Absolute Eosinophils 0.2 Absolute Basophils 0.1 Carbonic Acid 1.12 1.19 HCO3/H2CO3 Ratio 33:1 33:1 ABG pH 7.61 H* 7.62 H* ABG pCO2 37.3 39.4 ABG pO2 114.1 H 59.6 L ABG HCO3 37.0 H 39.5 H ABG O2 Saturation 98.8 H 94.6 ABG Base Excess 14.6 16.7 FiO2 80% 40% Sodium Potassium Chloride Carbon Dioxide Anion Gap BUN Creatinine Est GFR ( Amer) Est GFR (Non-Af Amer) Glucose Calcium Phosphorus Magnesium Total Bilirubin AST ALT Alkaline Phosphatase Total Protein Albumin 12/13/17 12/13/17 12/13/17 08:11 09:30 09:41 WBC 6.7 RBC 4.52 Hgb 11.7 L Hct 37.0 L MCV 82 MCH 25.9 L MCHC 31.7 L RDW 20.2 H Plt Count 175 Seg Neutrophils % Lymphocytes % Monocytes % Eosinophils % Basophils % Absolute Neutrophils Absolute Lymphocytes Absolute Monocytes Absolute Eosinophils Absolute Basophils Carbonic Acid 1.23 HCO3/H2CO3 Ratio 32:1 ABG pH 7.61 H* ABG pCO2 40.8 ABG pO2 66.6 L ABG HCO3 40.2 H ABG O2 Saturation 95.8 ABG Base Excess 17.1 FiO2 40% Sodium 144.9 Potassium 4.0 Chloride 93 L Carbon Dioxide 39 H Anion Gap 13 BUN 30 H Creatinine 1.25 Est GFR ( Amer) > 60 Est GFR (Non-Af Amer) 58 L Glucose 99 Calcium 8.6 Phosphorus 2.1 L Magnesium 1.6 Total Bilirubin 1.8 H AST 28 ALT 22 Alkaline Phosphatase 86 Total Protein 6.1 L Albumin 3.0 L 12/13/17 11:30 WBC RBC Hgb Hct MCV MCH MCHC RDW Plt Count Seg Neutrophils % Lymphocytes % Monocytes % Eosinophils % Basophils % Absolute Neutrophils Absolute Lymphocytes Absolute Monocytes Absolute Eosinophils Absolute Basophils Carbonic Acid 1.55 H HCO3/H2CO3 Ratio 27:1 ABG pH 7.54 H ABG pCO2 51.4 H ABG pO2 91.0 ABG HCO3 43.1 H ABG O2 Saturation 97.6 ABG Base Excess 18.0 FiO2 40% Sodium Potassium Chloride Carbon Dioxide Anion Gap BUN Creatinine Est GFR ( Amer) Est GFR (Non-Af Amer) Glucose Calcium Phosphorus Magnesium Total Bilirubin AST ALT Alkaline Phosphatase Total Protein Albumin 12/11/17 12/12/17 12/12/17 20:33 02:42 02:42 Creatine Kinase 37 L CK-MB (CK-2) 1.25 Troponin I 0.069 0.064 NT-Pro-B Natriuret Pep 12/12/17 12/12/17 12/12/17 11:30 11:30 16:54 Creatine Kinase 37 L CK-MB (CK-2) 1.45 1.36 Troponin I 0.064 0.073 NT-Pro-B Natriuret Pep 4930 H 12/12/17 12/12/17 12/12/17 16:54 21:10 21:10 Creatine Kinase 32 L 38 L CK-MB (CK-2) 1.75 Troponin I 0.080 NT-Pro-B Natriuret Pep 12/13/17 12/13/17 12/13/17 03:15 03:15 09:30 Creatine Kinase 30 L 39 L CK-MB (CK-2) 1.61 Troponin I 0.114 NT-Pro-B Natriuret Pep 12/13/17 09:41 Creatine Kinase CK-MB (CK-2) 1.40 Troponin I 0.123 NT-Pro-B Natriuret Pep 3370 H Impressions: Chest X-Ray 12/13/17 00:00 IMPRESSION: Endotracheal tube projects just above the level the fransico. Consider repeat portable chest x-ray with attention to patient positioning. Lung exam is unchanged given differences in technique. Chest x-ray 12/12/2017 1113 Impression: Massive cardiomegaly, stable. Single lead pacemaker unchanged. Bilateral pleural effusion with bibasilar airspace disease atelectasis versus pneumonia. The similar compared to 12/11/2017. Chest x-ray 12/11/2017 1700 Impression: Severe cardiomegaly with obscuring of both lower lung sounds consistent with moderate to large bilateral pleural effusions. Underlying pathology could be obscured. Status: Image reviewed by me Plan Discharge Plan: Transfer to [facility] cardiac intensive care unit under the care of Dr. Nathen Moreira.
--- NOTE | 2017-12-13 18:18 | PDOC PROGRESS REPORT ---
Subjective Progress Note for:: 12/13/17 Subjective:: Patient about the same and has made very little progress. There is no significant change in general condition. Patient remains on Levophed drip. His vitals has been stable but remains critically ill. Patient remains intubated, sedated, patient however looks comfortable and in acute distress. Medications reviewed. Reason For Visit: ACUTE ON CHRONIC SYSTOLIC HEART FAILURE Physical Exam Vital Signs: Temp Pulse Resp BP Pulse Ox 99.6 F 76 14 94/51 L 98 12/13/17 14:00 12/13/17 14:00 12/13/17 14:28 12/13/17 14:28 12/13/17 14:28 Intake & Output 12/12/17 12/13/17 12/14/17 06:59 06:59 06:59 Intake Total 1110 Output Total 75 3150 335 Balance -75 -2039 -335 Weight 101.2 kg Exam: GENERAL: well-nourished and in no acute distress. Patient is intubated and sedated. Orientation cannot be checked HEAD: Atraumatic, normocephalic. EYES: Pupils equal round and reactive to light, extraocular movements could not be checked, sclera anicteric, conjunctiva are normal. ENT: TMs normal, nares patent, oropharynx clear without exudates. Moist mucous membranes. No oral ulcerations or bleeding gums noted NECK: supple without lymphadenopathy or JVD. Trachea is central. No cervical or axillary lymphadenopathy noted. Carotids are 2+ LUNGS: Breath sounds mostly clear to auscultation patient is noted to have bibasal crackles at the extreme bases. Bilateral dullness noted. CHEST: Palpation of the chest wall shows no significant chest wall tenderness or abnormalities. HEART: [place] [employer], No PSH, 2/6 NITISH aortic area, 1/6 daly systolic murmur mitral area , no rubs or gallops. ABDOMEN: Soft, no significant tenderness appreciated, normoactive bowel sounds. No guarding, no rebound. No rigidity noted . No masses appreciated. EXTREMITIES: Pedal pulses are 1-2+, no calf tenderness noted, 2-3+ + pedal edema noted. No clubbing or cyanosis. NEUROLOGICAL: The patient cannot participate in the neurological exam but no facial asymmetry noted. Extremities slightly hypotonic PSYCH: This cannot be evaluated. Patient cannot participate. SKIN: No significant ecchymosis, rash, or signs of pruritus noted. MUSCULOSKELETAL EXAM: No significant joint swelling noted. Patient cannot participate in musculoskeletal exam Results Laboratory Results: 12/13/17 09:41 12/13/17 09:30 12/12/17 12/12/17 12/12/17 21:10 21:10 22:32 WBC 6.7 RBC 4.62 Hgb 12.1 L Hct 37.8 L MCV 82 MCH 26.1 L MCHC 31.9 L RDW 20.2 H Plt Count 190 Seg Neutrophils % 64.5 Lymphocytes % 16.4 Monocytes % 16.4 H Eosinophils % 1.7 Basophils % 1.0 Absolute Neutrophils 4.3 Absolute Lymphocytes 1.1 Absolute Monocytes 1.1 Absolute Eosinophils 0.1 Absolute Basophils 0.1 Carbonic Acid 1.12 HCO3/H2CO3 Ratio 33:1 ABG pH 7.61 H* ABG pCO2 37.3 ABG pO2 114.1 H ABG HCO3 37.0 H ABG O2 Saturation 98.8 H ABG Base Excess 14.6 FiO2 80% Sodium 143.8 Potassium 4.0 Chloride 94 L Carbon Dioxide 38 H Anion Gap 12 BUN 31 H Creatinine 1.33 H Est GFR ( Amer) > 60 Est GFR (Non-Af Amer) 54 L Glucose 139 H Calcium 8.8 Phosphorus Magnesium Total Bilirubin AST ALT Alkaline Phosphatase Total Protein Albumin 12/13/17 12/13/17 12/13/17 00:53 03:15 08:11 WBC 5.1 RBC 4.24 L Hgb 11.2 L Hct 34.9 L MCV 83 MCH 26.4 L MCHC 32.0 RDW 19.8 H Plt Count 158 Seg Neutrophils % 61.9 Lymphocytes % 16.0 Monocytes % 17.2 H Eosinophils % 3.7 Basophils % 1.2 Absolute Neutrophils 3.1 Absolute Lymphocytes 0.8 Absolute Monocytes 0.9 Absolute Eosinophils 0.2 Absolute Basophils 0.1 Carbonic Acid 1.19 1.23 HCO3/H2CO3 Ratio 33:1 32:1 ABG pH 7.62 H* 7.61 H* ABG pCO2 39.4 40.8 ABG pO2 59.6 L 66.6 L ABG HCO3 39.5 H 40.2 H ABG O2 Saturation 94.6 95.8 ABG Base Excess 16.7 17.1 FiO2 40% 40% Sodium Potassium Chloride Carbon Dioxide Anion Gap BUN Creatinine Est GFR ( Amer) Est GFR (Non-Af Amer) Glucose Calcium Phosphorus Magnesium Total Bilirubin AST ALT Alkaline Phosphatase Total Protein Albumin 12/13/17 12/13/17 12/13/17 09:30 09:41 11:30 WBC 6.7 RBC 4.52 Hgb 11.7 L Hct 37.0 L MCV 82 MCH 25.9 L MCHC 31.7 L RDW 20.2 H Plt Count 175 Seg Neutrophils % Lymphocytes % Monocytes % Eosinophils % Basophils % Absolute Neutrophils Absolute Lymphocytes Absolute Monocytes Absolute Eosinophils Absolute Basophils Carbonic Acid 1.55 H HCO3/H2CO3 Ratio 27:1 ABG pH 7.54 H ABG pCO2 51.4 H ABG pO2 91.0 ABG HCO3 43.1 H ABG O2 Saturation 97.6 ABG Base Excess 18.0 FiO2 40% Sodium 144.9 Potassium 4.0 Chloride 93 L Carbon Dioxide 39 H Anion Gap 13 BUN 30 H Creatinine 1.25 Est GFR ( Amer) > 60 Est GFR (Non-Af Amer) 58 L Glucose 99 Calcium 8.6 Phosphorus 2.1 L Magnesium 1.6 Total Bilirubin 1.8 H AST 28 ALT 22 Alkaline Phosphatase 86 Total Protein 6.1 L Albumin 3.0 L 12/11/17 12/12/17 12/12/17 20:33 02:42 02:42 Creatine Kinase 37 L CK-MB (CK-2) 1.25 Troponin I 0.069 0.064 NT-Pro-B Natriuret Pep 12/12/17 12/12/17 12/12/17 11:30 11:30 16:54 Creatine Kinase 37 L CK-MB (CK-2) 1.45 1.36 Troponin I 0.064 0.073 NT-Pro-B Natriuret Pep 4930 H 12/12/17 12/12/17 12/12/17 16:54 21:10 21:10 Creatine Kinase 32 L 38 L CK-MB (CK-2) 1.75 Troponin I 0.080 NT-Pro-B Natriuret Pep 12/13/17 12/13/17 12/13/17 03:15 03:15 09:30 Creatine Kinase 30 L 39 L CK-MB (CK-2) 1.61 Troponin I 0.114 NT-Pro-B Natriuret Pep 12/13/17 09:41 Creatine Kinase CK-MB (CK-2) 1.40 Troponin I 0.123 NT-Pro-B Natriuret Pep 3370 H EKG Comments: Sinus rhythm with APCs and VPCs. Impressions: Chest X-Ray 12/13/17 00:00 IMPRESSION: Endotracheal tube projects just above the level the fransico. Consider repeat portable chest x-ray with attention to patient positioning. Lung exam is unchanged given differences in technique. Assessment & Plan - Diagnosis (1) Acute on chronic systolic CHF (congestive heart failure), NYHA class 4 Is this a current diagnosis for this admission?: Yes (2) Acute respiratory failure with hypoxia and hypercapnia Is this a current diagnosis for this admission?: Yes (3) Coronary artery disease Qualifiers: Coronary Disease-Associated Artery/Lesion type: unspecified vessel or lesion type Associated angina: angina presence unspecified Is this a current diagnosis for this admission?: Yes (4) Pleural effusion Is this a current diagnosis for this admission?: Yes (5) Type 2 diabetes mellitus Qualifiers: Diabetes mellitus intermediate teacher insulin use: with senior care use Chronic kidney disease stage: stage 3 (moderate) Is this a current diagnosis for this admission?: Yes (6) History of CVA (cerebrovascular accident) Is this a current diagnosis for this admission?: Yes (7) VIOLETA (obstructive sleep apnea) Is this a current diagnosis for this admission?: Yes (8) Atrial flutter with rapid ventricular response Is this a current diagnosis for this admission?: Yes - Notes Notes: Acute on chronic systolic CHF: This is probably causing bilateral pleural effusion and contributing to acute respiratory failure. Currently patient hypotensive. Agree with intubation and mechanical ventilation. Recommend diuretics once blood pressure is improved. Recommend restarting carvedilol, entresto, UZMA inhibitor/ARB as tolerated by blood pressure. Currently however these agents cannot be started as patient on Levophed drip. Feel that patient will benefit from tertiary care transfer as more support is to be required especially after review of 2D echo which showed severely depressed LVEF and also depressed RV EF. Atrial flutter fibrillation with rapid ventricular response: Continue amiodarone bolus and drip protocol and subsequently to be switched to p.o. amiodarone. Continue digoxin as needed for rate control. Recommend full dose anticoagulation with either Eliquis or other alternatives to prevent future strokes. Acute respiratory failure with hypoxemia and hypercapnia: Continue with mechanical ventilation and oxygenation. Recommend pulmonary consultation. Coronary artery disease: Patient has a history of it. Currently not able to evaluate any further. 2D echocardiogram shows severe LV systolic dysfunction. Study was technically difficult. Pleural effusion: Possibly related to CHF. May consider diagnostic thoracentesis once patient is improved. Obstructive sleep apnea syndrome: Patient will benefit from nightly CPAP therapy but currently intubated and ventilated. History of cerebrovascular accident: Patient at high risk of recurrence. Recommend full dose anticoagulation if there are no contraindication. Hypotension: Most likely cardiogenic due to severe LV systolic dysfunction. Blood pressure did not improve even though patient converted to sinus. Discussed that patient most likely in cardiogenic shock because of severe LV systolic dysfunction and no other good reason to explain continuing hypertension. Discussed that patient will probably benefit from more support that can be given here. Discussed with hospitalist in detail. - Time Time with patient: Greater than 35 minutes - More than 50% of the time spent coordinating care, discussing management plans with involved caregivers. Management plans discussed with involved personnels. Medical decision making was of moderate to high complexity, patient's has multiple comorbidities. Medications reviewed and adjusted accordingly: Yes
--- NOTE | 2017-12-13 21:57 | EKG REPORT ---
SEVERITY:- ABNORMAL ECG - SINUS RHYTHM LEFT POSTERIOR FASCICULAR BLOCK LOW VOLTAGE IN FRONTAL LEADS BORDERLINE T ABNORMALITIES, INFERIOR LEADS : Confirmed by: Pooja Patel 13-Dec-2017 21:56:41
[2017-12-13] MEDS ORDERED: CEFEPIME 1 GM/D5W RTU 1 GM/50 ML RTUPB IV SCH (22:00)
[2017-12-13] MEDS ORDERED: VANCOMYCIN HCL 1,250 MG in DEXTROSE 5%-WATER 250 ML IV SCH (22:00)
[2017-12-13] MEDS ORDERED: ENOXAPARIN SODIUM INJ 100 MG/1 ML DISP.SYRIN SUBCUT SCH (22:00)
[2017-12-14] MEDS ORDERED: LEVOFLOXACIN 750 MG/D5W RTU 750 MG/150 ML RTUPB IV SCH (10:00)
--- NOTE | 2017-12-15 11:56 | EKG REPORT ---
SEVERITY:- ABNORMAL ECG - SINUS RHYTHM VENTRICULAR ECTOPICS LOW VOLTAGE WITH RIGHT AXIS DEVIATION CONSIDER RIGHT VENTRICULAR HYPERTROPHY BORDERLINE R WAVE PROGRESSION, ANTERIOR LEADS NONSPECIFIC T ABNORMALITIES, LATERAL LEADS : Confirmed on behalf of: Pooja Patel 15-Dec-2017 11:56:16
== END 2017-12-13 14:45 | disposition short-term general hospital (02) | DRG 291 ==
LOC: ER 16:16 → EH 19:21 → 4S 22:17 → 3N 12-12 15:34 → ICU 12-12 18:00
PROVIDERS: ADMIT Family Medicine; ATTEND Family Medicine
PROC: 0BH17EZ Insertion of Endotracheal Airway into Trachea, Via Natural or Artificial Opening (ICD-10-PCS; principal; 2017-12-12)
PROC: 5A1935Z Respiratory Ventilation, Less than 24 Consecutive Hours (ICD-10-PCS; 2017-12-12)
DX: I13.0 Hypertensive heart and chronic kidney disease with heart failure and stage 1 through stage 4 chronic kidney disease, or unspecified chronic kidney disease (principal); J96.02 Acute respiratory failure with hypercapnia; J96.01 Acute respiratory failure with hypoxia; R57.0 Cardiogenic shock; I50.23 Acute on chronic systolic (congestive) heart failure; E11.22 Type 2 diabetes mellitus with diabetic chronic kidney disease; N18.3 Chronic kidney disease, stage 3 (moderate); I25.10 Atherosclerotic heart disease of native coronary artery without angina pectoris; E78.00 Pure hypercholesterolemia, unspecified; J45.909 Unspecified asthma, uncomplicated; J44.9 Chronic obstructive pulmonary disease, unspecified; I48.91 Unspecified atrial fibrillation; K21.9 Gastro-esophageal reflux disease without esophagitis; Z53.09 Procedure and treatment not carried out because of other contraindication; N40.0 Benign prostatic hyperplasia without lower urinary tract symptoms; G47.33 Obstructive sleep apnea (adult) (pediatric); F41.9 Anxiety disorder, unspecified; F43.10 Post-traumatic stress disorder, unspecified; I25.2 Old myocardial infarction; Z86.73 Personal history of transient ischemic attack (TIA), and cerebral infarction without residual deficits; Z79.82 Long term (current) use of aspirin; Z79.51 Long term (current) use of inhaled steroids; Z79.899 Other long term (current) drug therapy
CPT/HCPCS: 31500; 36415; 36600; 71045; 80048; 80053; 80076; 82550; 82553; 82803; 82962; 83735; 83880; 84100; 84443; 84484; 84550; 85025; 85027; 85610; 87040; 87070; 87086; 87205; 93005; 93010; 93306; 94002; 94003; 94640; 94660; 99285; J0282; J0330; J1160; J1265; J1630; J1650; J1940; J1956; J2060; J2704; J3370; J3490; J7060

== ENCOUNTER 2017-12-30 07:14 | Inpatient (IN) | payer MEDICARE ==
--- NOTE | 2017-12-30 08:01 | RADIOLOGY REPORT (SQ) ---
EXAM DESCRIPTION: XR CHEST 1 VIEW COMPLETED DATE/TME: 12/30/2017 00:00 CLINICAL HISTORY: 62 years Male, chest pain COMPARISON: 7.21.18 NUMBER OF VIEWS/TECHNIQUE: 1/AP FINDINGS: Moderate left lower retrocardiac and basilar opacity, small right basilar hazy opacity-effusion, moderate to severe cardiac enlargement, mild central edema pattern, left cardiac stimulator with leads, right nuchal clips. No pneumothorax. Skeletal structures are stable. Interval extubation. IMPRESSION: Interval line/tube modification.
[2017-12-30] MEDS ORDERED: ASPIRIN 81 MG TABLET, CHEWABLE PO ONE (08:20)
--- NOTE | 2017-12-30 08:21 | ER Document Report ---
ED Medical Screen (RME) - General Chief Complaint: Chest Pain Stated Complaint: CHEST PAIN, KNEE PAIN Time Seen by Provider: 12/30/17 08:19 Mode of Arrival: Wheelchair Information source: Patient Notes: patient presents to the ed for c/o right knee pain, midsternal chest pain. Pt has hx of DC, CVA. very difficult to understand I have greeted and performed a rapid initial assessment of this patient. A comprehensive ED assessment and evaluation of the patient, analysis of test results and completion of the medical decision making process will be conducted by additional ED providers. TRAVEL OUTSIDE OF THE [place] IN LAST 30 DAYS: No - Related Data Allergies/Adverse Reactions: captopril [From Capoten] Allergy (Severe, Verified 10/08/17 15:52) Angioedema atorvastatin calcium [From Lipitor] Allergy (Intermediate, Verified 10/08/17 15: 52) Angioedema clopidogrel [From Plavix] Allergy (Verified 10/08/17 15:52) rosuvastatin [From Crestor] Allergy (Verified 10/08/17 15:52) simvastatin [From Zocor] Allergy (Verified 10/08/17 15:52) Angioedema Past Medical History - Social History Family history: None - Past Medical History Cardiac Medical History: Reports: Hx Congestive Heart Failure - Systolic with EF of 25-30% as of 2D echo in July 2017, Hx Coronary Artery Disease, Hx Heart Attack - 2008, Hx Hypercholesterolemia, Hx Hypertension Pulmonary Medical History: Reports: Hx Asthma, Hx Bronchitis, Hx COPD, Hx Sleep Apnea Neurological Medical History: Reports: Hx Cerebrovascular Accident - x 2. Denies: Hx Seizures Endocrine Medical History: Reports: Hx Diabetes Mellitus Type 1, Hx Diabetes Mellitus Type 2 Renal/ Medical History: Denies: Hx Peritoneal Dialysis Malignancy Medical History: GI Medical History: Reports: Hx Diverticulitis, Hx Gastroesophageal Reflux Disease Musculoskeltal Medical History: Reports Hx Arthritis, Reports Hx Musculoskeletal Deformity, Reports Hx Musculoskeletal Trauma Psychiatric Medical History: Reports: Hx Anxiety, Hx Post Traumatic Stress Disorder Denies: Hx Depression Infectious Medical History: Past Surgical History: Reports: Hx Abdominal Surgery - for diverticulitis, Hx Bowel Surgery - Colon resection due to diverticulitis, Hx Cardiac Catheterization, Hx Cardiac Surgery - 1984, ICD placement 2015, Hx Coronary Artery Bypass Graft, Hx Coronary Stent - 1984, Hx Thyroid Surgery, Other - AICD - Immunizations Immunizations up to date: Yes Hx Diphtheria, Pertussis, Tetanus Vaccination: Yes History of Influenza Vaccine for 02/2017 - 07/2017 Season: Refused Physical Exam - Vital signs Vitals: Pulse Resp BP Pulse Ox 127 H 19 106/58 L 96 12/30/17 07:26 12/30/17 07:26 12/30/17 07:26 12/30/17 07:26 Course - Vital Signs Vital signs: Temp Pulse Resp BP Pulse Ox 127 H 19 106/58 L 96 12/30/17 07:26 12/30/17 07:26 12/30/17 07:26 12/30/17 07:26 Doctor's Discharge - Discharge Referrals: JACOBO MARTINEZ, [Primary Care Provider] - Follow up as needed
[2017-12-30 10:19] LABS: ABSOLUTE EOSINOPHILS # (AUTO) 0.8 10^3/uL (0.0-0.6); ABSOLUTE LYMPHOCYTES (AUTO) 1.2 10^3/uL (0.5-4.7); ABSOLUTE MONOCYTES (AUTO) 1.1 10^3/uL (0.1-1.4); ABSOLUTE NEUT (AUTO) 4.6 10^3/uL (1.7-8.2); BASOPHILS % (AUTO) 0.5 % (0-2); HEMATOCRIT 39.8 % (37.9-51.0); HEMOGLOBIN 12.7 g/dL (13.5-17.0); LYMPHOCYTES % (AUTO) 15.4 % (13-45); MEAN CORPUSCULAR HEMOGLOBIN 26.6 pg (27.0-33.4); MEAN CORPUSCULAR HGB CONC 31.9 g/dL (32.0-36.0); MEAN CORPUSCULAR VOLUME 84 fl (80-97); MONOCYTES % (AUTO) 13.9 % (3-13); PLATELET COUNT 224 10^3/uL (150-450); RED BLOOD COUNT 4.77 10^6/uL (4.35-5.55); RED CELL DISTRIBUTION WIDTH 20.9 % (11.5-14.0); SEGMENTED NEUTROPHILS % (AUTO) 60.2 % (42-78); TOTAL CELLS COUNTED % (AUTO) 100 %; WHITE BLOOD COUNT 7.6 10^3/uL (4.0-10.5)
[2017-12-30 10:30] LABS: ALANINE AMINOTRANSFERASE 23 U/L (21-72); ALBUMIN 3.8 g/dL (3.5-5.0); ALKALINE PHOSPHATASE 102 U/L (38-126); ANION GAP 14 (5-19); ASPARTATE AMINO TRANSFERASE 26 U/L (17-59); BILIRUBIN,DIRECT 0.4 mg/dL (0.0-0.4); BILIRUBIN,TOTAL 0.7 mg/dL (0.2-1.3); BLOOD UREA NITROGEN 21 mg/dL (7-20); CALCIUM 8.8 mg/dL (8.4-10.2); CARBON DIOXIDE 32 mmol/L (22-30); CHLORIDE 104 mmol/L (98-107); CREATINE KINASE 48 U/L (55-170); GLUCOSE 99 mg/dL (75-110); POTASSIUM 4.2 mmol/L (3.6-5.0); SODIUM 149.7 mmol/L (137-145); TOTAL PROTEIN 7.4 g/dL (6.3-8.2)
[2017-12-30 10:42] LABS: CREATINE KINASE MB 1.56 ng/mL (<4.55)
[2017-12-30 10:43] LABS: TROPONIN I 0.046 ng/mL
[2017-12-30] MEDS ORDERED: MORPHINE SULFATE 10 MG/ML INJ IV ONE (11:44)
[2017-12-30] MEDS ORDERED: ALPRAZOLAM 0.25 MG TABLET PO ONE (11:57)
[2017-12-30 12:50] LABS: C-REACTIVE PROTEIN 43.5 mg/L (<10.0); PHOSPHORUS 3.7 mg/dL (2.5-4.5); URIC ACID 8.1 mg/dL (3.5-8.5)
--- NOTE | 2017-12-30 13:15 | ER Document Report ---
ED General - General Chief Complaint: Chest Pain Stated Complaint: CHEST PAIN, KNEE PAIN Time Seen by Provider: 12/30/17 08:19 Mode of Arrival: Medic TRAVEL OUTSIDE OF THE [place] IN LAST 30 DAYS: No - HPI Notes: 61-year-old male with a medical history of CVA, CHF, asthma, COPD, peacemaker and echo that was done in July 2017 with an EF any 5-35%, history of CAD presents to the ED for left-sided chest pain and right knee pain which he states is due to gout. Patient is dysarthric due to previous CVA. Patient states left-sided chest pain started at 4:00 this morning, lasts for a few minutes and dissipates, denies worse with exertion. Denies any radiation of pain. She is pain she feels sharp. Patient states he woke up from the chest pain. [place] at the [place]. patient does take blood thinners due to recently being diagnosed with a pulmonary embolism. Patient was recently at [facility] 2 weeks ago on life support for CHF exacerbation. PE was diagnosed on September 27, 2017. Patient reports he is short of breath. Denies fevers, chills, nausea, vomiting, diarrhea, abdominal pain. - Related Data Allergies/Adverse Reactions: captopril [From Capoten] Allergy (Severe, Verified 12/30/17 12:04) Angioedema atorvastatin calcium [From Lipitor] Allergy (Intermediate, Verified 12/30/17 12: 04) Angioedema clopidogrel [From Plavix] Allergy (Verified 12/30/17 12:04) rosuvastatin [From Crestor] Allergy (Verified 12/30/17 12:04) simvastatin [From Zocor] Allergy (Verified 12/30/17 12:04) Angioedema Past Medical History - General Information source: Patient - Social History Smoking Status: Unknown if Ever Smoked Frequency of alcohol use: None Drug Abuse: None Family History: CAD, DM, Hypertension, Thyroid Disfunction Patient has suicidal ideation: No Patient has homicidal ideation: No - Past Medical History Cardiac Medical History: Reports: Hx Congestive Heart Failure - Systolic with EF of 25-30% as of 2D echo in July 2017, Hx Coronary Artery Disease, Hx Heart Attack - 2009, Hx Hypercholesterolemia, Hx Hypertension Pulmonary Medical History: Reports: Hx Asthma, Hx Bronchitis, Hx COPD, Hx Sleep Apnea Neurological Medical History: Reports: Hx Cerebrovascular Accident - x 2. Denies: Hx Seizures Endocrine Medical History: Reports: Hx Diabetes Mellitus Type 1, Hx Diabetes Mellitus Type 2 Renal/ Medical History: Denies: Hx Peritoneal Dialysis Malignancy Medical History: GI Medical History: Reports: Hx Diverticulitis, Hx Gastroesophageal Reflux Disease Musculoskeletal Medical History: Reports Hx Arthritis, Reports Hx Musculoskeletal Deformity, Reports Hx Musculoskeletal Trauma Psychiatric Medical History: Reports: Hx Anxiety, Hx Post Traumatic Stress Disorder Denies: Hx Depression Infectious Medical History: Past Surgical History: Reports: Hx Abdominal Surgery - for diverticulitis, Hx Bowel Surgery - Colon resection due to diverticulitis, Hx Cardiac Catheterization, Hx Cardiac Surgery - 1984, ICD placement 2015, Hx Coronary Artery Bypass Graft, Hx Coronary Stent - 1984, Hx Thyroid Surgery, Other - AICD - Immunizations Immunizations up to date: Yes Hx Diphtheria, Pertussis, Tetanus Vaccination: Yes Hx Pneumococcal Vaccination: 05/26/10 Review of Systems - Review of Systems Constitutional: See HPI EENT: No symptoms reported Cardiovascular: See HPI Respiratory: See HPI Gastrointestinal: No symptoms reported Genitourinary: No symptoms reported Male Genitourinary: No symptoms reported Musculoskeletal: No symptoms reported Skin: No symptoms reported Hematologic/Lymphatic: No symptoms reported Neurological/Psychological: Speech impairment - from prior cva Physical Exam - Vital signs Vitals: Pulse Resp BP Pulse Ox 127 H 19 106/58 L 96 12/30/17 07:26 12/30/17 07:26 12/30/17 07:26 12/30/17 07:26 - Notes Notes: PHYSICAL EXAMINATION: GENERAL: Chronically ill well-nourished and in no acute distress. HEAD: Atraumatic, normocephalic. EYES: Pupils equal round and reactive to light, extraocular movements intact, sclera anicteric, conjunctiva are normal. ENT: Nares patent, oropharynx clear without exudates. Moist mucous membranes. NECK: Normal range of motion, supple without lymphadenopathy LUNGS: diminished breath sounds in BUL, noted wheezing in BLL. No rales or rhonchi. HEART: Tachycardia rhythm without murmurs ABDOMEN: Soft, nontender, nondistended abdomen. No guarding, no rebound. No masses appreciated. Musculoskeletal: Normal range of motion, no pitting or edema. No cyanosis. right knee pain with palpation to lateral aspect of knee with noted swelling. negative elva's sign. anterior and posterior drawer test negative. noted pain with lateral movement. Dtr + 2 in BLE. Full motor and sensory function to BLE equally. No open wounds. No induration or drainage. Strength 5 out of 5 bilaterally equally. Ankle examination normal. Squeeze test negative. Hip examination normal. Pulses + 2 bilaterally and equally. NEUROLOGICAL: Awake alert and oriented 3. No significant weakness. Aphasic speech, normal gait. PSYCH:agitated SKIN: Warm, Dry, normal turgor, no rashes or lesions noted. Course - Re-evaluation Re-evalutation: 12/30/17 17:03 62-year-old male presents to the ED for evaluation of left-sided chest pain or shortness of breath and tachycardia with tachypnea. CBC negative for leukocytosis or anemia, CMP shows potassium of 4.2 creatinine 1.06 which is considerably better to his previous creatinines, BNP is 3350, with mild CHF. CTA shows resolution of previous PE, no new PE noted. Pleural like density lateral aspect right lung base may represent loculated effusion versus infarct. Patient remains tachycardic with tachypnea however pulse ox remains at 98%. Patient given 40 mg of Lasix IVP for CHF, consulted with hospitalist for admission for chest pain evaluation, respiratory distress and CHF exacerbation. Consulted with Cadence Robert, ELECTRIC METER INSTALLER will admit to the IMCU under medical care for further evaluation and management. Patient agreed with plan of care and is agreeable plan of care. - Vital Signs Vital signs: Temp Pulse Resp BP Pulse Ox 127 H 31 H 110/74 99 12/30/17 07:26 12/30/17 16:00 12/30/17 14:00 12/30/17 16:00 - Laboratory Result Diagrams: 12/30/17 09:49 12/30/17 09:49 Laboratory results interpreted by me: 12/30/17 12/30/17 12/30/17 09:49 09:49 11:38 Hgb 12.7 L MCH 26.6 L MCHC 31.9 L RDW 20.9 H Monocytes % 13.9 H Eosinophils % 10.0 H Absolute Eosinophils 0.8 H Sodium 149.7 H Carbon Dioxide 32 H BUN 21 H Creatine Kinase 48 L C-Reactive Protein NT-Pro-B Natriuret Pep 3350 H 12/30/17 11:39 Hgb MCH MCHC RDW Monocytes % Eosinophils % Absolute Eosinophils Sodium Carbon Dioxide BUN Creatine Kinase C-Reactive Protein 43.5 H NT-Pro-B Natriuret Pep - EKG Interpretation by Me Rate: Tachycardia Discharge - Discharge Clinical Impression: Tachycardia, Chest pain, Acute on chronic systolic (congestive) heart failure, Pleural effusion Condition: Stable Disposition: ADMITTED INPATIENT Admitting Provider: Hospitalist - CHERRIE Garcia Unit Admitted: [facility]
--- NOTE | 2017-12-30 13:38 | EKG REPORT ---
SEVERITY:- ABNORMAL ECG - SINUS TACHYCARDIA IRBBB AND LPFB LOW VOLTAGE WITH RIGHT AXIS DEVIATION BORDERLINE R WAVE PROGRESSION, ANTERIOR LEADS : Confirmed by: Carolyn Garsia MD 30-Dec-2017 13:37:20
--- NOTE | 2017-12-30 14:31 | RADIOLOGY REPORT (SQ) ---
EXAM DESCRIPTION: CTA CHEST COMPLETED DATE/TIME: 12/30/2017 1:26 pm REASON FOR STUDY: tachycardia, dysnpea COMPARISON: 09/25/2017 TECHNIQUE: CT scan of the chest performed using helical scanning technique with dynamic intravenous contrast injection. Images reviewed with lung, soft tissue and bone windows. Reconstructed coronal and sagittal MPR images reviewed. Additional 3 dimensional post-processing performed to develop Maximal Intensity Projection images (NC P). All images stored on PACS. All CT scanners at this facility use dose modulation, iterative reconstruction, and/or weight based d osing when appropriate to reduce radiation dose to as low as reasonably achievable (ALARA). [facility]: Dose Right [facility]: CareDose [facility]: Dose Right [facility]: Teradose 4D [facility]: Epy.io CONTRAST TYPE AND DOSE: contrast/concentration: Isovue 350.00 mg/ml; Total Contrast Delivered: 81.0 ml; Total Saline Delivered: 110.0 ml 81.3 mL Isovue 370- low osmolar. Contrast bolus optimized for the pulmonary arteries. Not diagnostic for the aorta. RENAL FUNCTION: Creatinine 1.06 RADIATION DOSE: CT Rad equipment meets quality standard of care and radiation dose reduction techniq ues were employed. CTDIvol: 32.5 - 66.1 mGy. DLP: 1155 mGy-cm. . LIMITATIONS: None. FINDINGS: LUNGS AND PLEURA: Bilateral pleural effusions. Moderate on the right small on the left. Irregular pleural-based density lateral aspect of the right base adjacent to the pleural effusion. P ossible loculated effusion versus pulmonary infarct based on history of pulmonary embolus. AORTA AND GREAT VESSELS: No aneurysm. Contrast bolus not optimized for the aorta. HEART: No pericardial effusion. No significant coronary artery calcifications. PULMONARY ARTERIES: No emboli visualized in the main pulmonary arteries or the segmental branches. HILAR AND MEDIASTINAL STRUCTURES: No identified masses or abnormal nodes. HARDWARE: None in the chest. UPPER ABDOMEN: No significant findings. Limited exam. THYROID AND OTHER SOFT TISSUES: No masses. No adenopathy. BONES: No acute or significant finding. 3D MIPS: Confirm above findings. OTHER: No other significant finding. IMPRESSION: No acute pulmonary emboli. Resolution of the previous embolus involving the to pulmonar y artery to the right upper lobe. Bilateral pleural effusions. Pleural-based density lateral aspect the right base may represent loculated effusion versus infarct. COMMENT: Quality ID # [id number]: Final reports with documentation of one or more dose reduction techniques (e.g., Automated exposure control, adjustment of the mA and/or kV according to patient size, use of iterative reconstruction technique) TECHNICAL DOCUMENTATION: JOB ID: [id number] [employer]- All Rights Reserved Reading location - IP/workstation name: [email or web address]
--- NOTE | 2017-12-30 14:42 | RADIOLOGY REPORT (SQ) ---
EXAM DESCRIPTION: KNEE RIGHT 4 VIEWS COMPLETED DATE/TIME: 12/30/2017 1:32 pm REASON FOR STUDY: questionable gout flare COMPARISON: 12/17/2016 NUMBER OF VIEWS: Two view. TECHNIQUE: AP and lateral radiographic images acquired of the right knee. LIMITATIONS: None. FINDINGS: BONES: No fracture. No osteophytes. No worrisome bone lesions. Osteopenia. JOINT: No effusion. No chondrocalcinosis. OTHER: No other significant finding. IMPRESSION: No acute or significant findings. See above discussion. TECHNICAL DOCUMENTATION: JOB ID: [id number] Reading location - IP/workstation name: [email or web address]
[2017-12-30] MEDS ORDERED: IPRATROPIUM/ALBUTEROL 0.5-2.5 MG/3 ML AMPUL NEB ONE (14:43)
[2017-12-30] MEDS ORDERED: FUROSEMIDE INJ/PF 40 MG/4 ML SDV IV ONE (14:59)
[2017-12-30] MEDS: ENOXAPARIN SODIUM INJ 30 MG/0.3 ML DISP.SYRIN SUBCUT SCH (16:16)
[2017-12-30 17:13] LABS: APPEARANCE,URINE CLEAR; BILIRUBIN,URINE NEGATIVE (NEGATIVE); COLOR,URINE YELLOW; GLUCOSE, URINE NEGATIVE (NEGATIVE); KETONES,URINE NEGATIVE (NEGATIVE); LEUKOCYTE ESTERASE,URINE SMALL (NEGATIVE); NITRITE,URINE NEGATIVE (NEGATIVE); PROTEIN,URINE NEGATIVE (NEGATIVE); URINE SPECIFIC GRAVITY 1.032; UROBILINOGEN,URINE NEGATIVE mg/dL (<2.0)
[2017-12-30] MEDS ORDERED: HYDRALAZINE HCL INJ/PF 20 MG/1 ML SDV IV PRN (18:33)
[2017-12-30] MEDS ORDERED: GABAPENTIN 300 MG CAPSULE PO ONE ×2 (18:54→21:00)
--- NOTE | 2017-12-30 21:22 | PDOC H&P ---
History of Present Illness Admission Date/PCP: 12/30/17 15:15 JACOBO MARTINEZ DO Patient complains of: CHEST PAIN. SHORTNESS OF BREATH. History of Present Illness: ALEX KNIGHT is a 62 year old male with a PMH of CVA, CHF (LVEF 35% on ECHO 07/2017), CAD, PE, asthma, COPD and pacemaker presents to the ED for left- sided chest pain and right knee pain which he states is due to gout. The patient states his L sided chest pain began at 0400 today, it woke him up from sleep. He describes the pain as sharp in nature and states it quickly dissipated but has been intermittently re-occuring today. Of note, the patient was recently admitted to [facility] for a CHF exacerbation. He was also diagnosed with a PE and placed on PO anticoagulation (unknown agent). Once in the ED, the patient's EKG revealed sinus tachycardia without evidence of infarction or ischemia. Troponin 0.4. BNP 3350. CXR shows bibasilar infiltrates vs effusion. Chest CTA was preformed to r/o PE since the patient was tachycardic, c/o chest pain and had a recent hx of PE. The CTA revealed bilateral pleural effusions, resolution of old PE in the pulmonary artery to the RML. No evidence of infiltrates. Pleural density in RLL that could demonstrate infarct or loculated effusion. He was diuresed with 40mg Lasix IV. Upon evaluation, the patient is awake and alert. He is sitting on the side of the bed resting comfortably on supplemental oxygen. The patient states he is chest pain free but endorses R knee pain. His speech is slurred but this is a residual deficit from his previous CVA. His respirations are equal and symmetrical, lung sounds are clear but diminished in bilateral lung bases. The patient does not appear to be in any respiratory distress. S1S2. +1 pitting edema in bilateral lower extremities. Admit to hospitalist service for chest pain observation. Past Medical History Cardiac Medical History: Reports: Congestive Heart Failure - Systolic with EF of 25-30% as of 2D echo in July 2017, Coronary Artery Disease, Myocardial Infarction - 2009, Hyperlipidema, Hypertension Pulmonary Medical History: Reports: Asthma, Bronchitis, Chronic Obstructive Pulmonary Disease (COPD), Sleep Apnea Neurological Medical History: Denies: Seizures Endocrine Medical History: Reports: Diabetes Mellitus Type 2 Renal/ Medical History: Malignancy Medical History: Denies: Breast Cancer, Cervical Cancer, Ovarian Cancer GI Medical History: Reports: Diverticulitis, Gastroesophageal Reflux Disease Musculoskeltal Medical History: Reports: Arthritis Psychiatric Medical History: Reports: Post Traumatic Stress Disorder Denies: Depression Hematology: Reports: Anemia Denies: Hemophilia, Sickle Cell Disease - sickle cell trait Infectious Medical History: Past Surgical History Past Surgical History: Reports: Cardiac Catheterization, Coronary Artery Bypass Graft, Coronary Stent - 1985, Other - AICD Social History Information Source: Patient 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 - 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 Smoking Status: Unknown if Ever Smoked Frequency of Alcohol Use: None Hx Recreational Drug Use: No Drugs: None Hx Prescription Drug Abuse: No - Advance Directive Resuscitation Status: Full Code Family History Family History: CAD, DM, Hypertension, Thyroid Disfunction Parental Family History Reviewed: No Children Family History Reviewed: NA Sibling(s) Family History Reviewed.: NA Medication/Allergy Allergies/Adverse Reactions: captopril [From Capoten] Allergy (Severe, Verified 12/30/17 12:04) Angioedema atorvastatin calcium [From Lipitor] Allergy (Intermediate, Verified 12/30/17 12: 04) Angioedema clopidogrel [From Plavix] Allergy (Verified 12/30/17 12:04) rosuvastatin [From Crestor] Allergy (Verified 12/30/17 12:04) simvastatin [From Zocor] Allergy (Verified 12/30/17 12:04) Angioedema Review of Systems All systems: reviewed and no additional remarkable complaints except as stated Physical Exam Vital Signs: Temp Pulse Resp BP Pulse Ox 127 H 22 H 108/90 H 97 12/30/17 07:26 12/30/17 19:00 12/30/17 19:00 12/30/17 19:00 General appearance: PRESENT: no acute distress Head exam: PRESENT: atraumatic Eye exam: PRESENT: conjunctiva pink, PERRLA Mouth exam: PRESENT: moist, other - FACIAL DROOP (CHRONIC) Neck exam: PRESENT: full ROM Respiratory exam: PRESENT: clear to auscultation rahul, symmetrical, unlabored, other - DECREASED LUNG SOUNDS IN B/L LUNG BASES Cardiovascular exam: PRESENT: +S1, +S2, tachycardia Pulses: PRESENT: normal radial pulses, +1 pedal pulses bilateral GI/Abdominal exam: PRESENT: soft. ABSENT: distended, tenderness Rectal exam: PRESENT: deferred Extremities exam: PRESENT: full ROM, pedal edema, +1 edema - B/L LOWER EXTREMITIES Musculoskeletal exam: PRESENT: ambulatory, full ROM Neurological exam: PRESENT: alert, awake, oriented to person, oriented to place , oriented to time, oriented to situation Psychiatric exam: PRESENT: appropriate affect Skin exam: PRESENT: dry, intact, normal color, warm Results Laboratory Results: 12/30/17 16:45 Urine Color YELLOW Urine Appearance CLEAR Urine pH 5.0 Ur Specific Mcclave 1.032 Urine Protein NEGATIVE Urine Glucose (UA) NEGATIVE Urine Ketones NEGATIVE Urine Blood NEGATIVE Urine Nitrite NEGATIVE Ur Leukocyte Esterase SMALL H Urine WBC (Auto) 3 Urine RBC (Auto) 1 Impressions: Chest X-Ray 12/30/17 00:00 IMPRESSION: Interval line/tube modification. Chest/Abdomen CTA 12/30/17 11:38 IMPRESSION: No acute pulmonary emboli. Resolution of the previous embolus involving the to pulmonary artery to the right upper lobe. Bilateral pleural effusions. Pleural-based density lateral aspect the right base may represent loculated effusion versus infarct. Knee X-Ray 12/30/17 11:40 IMPRESSION: No acute or significant findings. See above discussion. Assessment & Plan - Diagnosis (1) Pleural effusion Is this a current diagnosis for this admission?: Yes Plan: Pleural effusion seen on CTA Diuresed in ED with IV Lasix Continue 40mg PO daily Lasix Supplemental oxygen to maintain SPO2 > 93% (2) Chest pain Qualifiers: Is this a current diagnosis for this admission?: Yes Plan: Likely multifactoral - recent PE, CHF, pleural effusions EKG shows sinus tachycardia, no infarct or ischemia CTA shows B/L pleural effusions, resolving pulmonary embolism in pulmonary artery to RML Troponin 0.4, continue to trend q6h x 3 Diuresis for pleural effusions Resume home medications once med rec completed IV hydralazine 10mg PRN SPB > 170 BNP 3350 will continue to follow. Range of BNP in last 2 years is [id number] Plan to consult cardiology, appreciate their recommendations (3) Tachycardia Is this a current diagnosis for this admission?: Yes Plan: Multifactoral - shortness of breath, pain, CHF exacerbation supplemental O2 via nasal cannula for SOB SL Nitro 0.4mg q5min (MAX 3 tablets) for chest pain Diuresis for CHF exacerbation (4) Congestive heart failure Qualifiers: Heart failure type: unspecified Heart failure chronicity: acute on chronic Qualified Code(s): I50.9 - Heart failure, unspecified Is this a current diagnosis for this admission?: Yes Plan: According to caregiver, recent ECHO revealed LVEF 35% BNP 3350 Diuresed in ED, continue daily PO lasix Restart home medications once med rec is complete (5) Noncompliance Is this a current diagnosis for this admission?: Yes Plan: Nursing staff reports that the patient is noncompliant with staff He is refusing to give staff information about home medication list Patient witnessed urinating on the floor despite having urinal at bedside - Time Time Spent: 30 to 50 Minutes Medications reviewed and adjusted accordingly: No - PATIENT IS REFUSING TO OFFER MED REC. INSISTING STAFF CALL [facility]. Anticipated discharge: Home - Inpatient Certification Based on my medical assessment, after consideration of the patient's comorbidities, presenting symptoms, or acuity I expect that the services needed warrant INPATIENT care.: Yes I certify that my determination is in accordance with my understanding of Medicare's requirements for reasonable and necessary INPATIENT services [42 CFR 412.3e].: Yes Medical Necessity: Risk of Complication if Not Cared For in Hospital - Plan Summary Plan Summary: DAILY LASIX. MEDICATION RECONCILIATION.
[2017-12-31] MEDS: OXYCODONE-ACETAMINOPHEN 5-325 MG TABLET PO PRN ×3 (03:32→13:43)
[2017-12-31 07:15] LABS: HEMATOCRIT 38.5 % (37.9-51.0); HEMOGLOBIN 12.3 g/dL (13.5-17.0); MEAN CORPUSCULAR HEMOGLOBIN 26.5 pg (27.0-33.4); MEAN CORPUSCULAR VOLUME 83 fl (80-97); PLATELET COUNT 211 10^3/uL (150-450); RED BLOOD COUNT 4.64 10^6/uL (4.35-5.55); WHITE BLOOD COUNT 6.1 10^3/uL (4.0-10.5)
[2017-12-31 07:20] LABS: ANION GAP 13 (5-19); BLOOD UREA NITROGEN 20 mg/dL (7-20); CALCIUM 8.8 mg/dL (8.4-10.2); CARBON DIOXIDE 28 mmol/L (22-30); CHLORIDE 104 mmol/L (98-107); GLUCOSE 92 mg/dL (75-110); PHOSPHORUS 4.8 mg/dL (2.5-4.5); POTASSIUM 4.5 mmol/L (3.6-5.0)
[2017-12-31] MEDS: ALPRAZOLAM 0.25 MG TABLET PO PRN ×2 (08:53→17:20)
[2017-12-31] MEDS: FUROSEMIDE 40 MG TABLET PO SCH (09:00)
[2017-12-31] MEDS: ENOXAPARIN SODIUM INJ 30 MG/0.3 ML DISP.SYRIN SUBCUT SCH (09:00)
[2017-12-31] MEDS ORDERED: FUROSEMIDE INJ/PF 20 MG/2 ML SDV ONE (10:06)
[2017-12-31] MEDS ORDERED: METOPROLOL TARTRATE PF/INJ 5 MG/5 ML SDV IV ONE ×2 (10:06→11:00)
[2017-12-31] MEDS ORDERED: FUROSEMIDE INJ/PF 20 MG/2 ML SDV IV ONE (11:00)
[2017-12-31] MEDS ORDERED: POLYVINYL ALCOHOL 1.4% OPH SOLN 15 ML OU PRN (12:01)
[2017-12-31] MEDS ORDERED: ALBUTEROL SULFATE 0.083% NEB 2.5 MG/3 ML AMPUL NEB PRN (12:01)
[2017-12-31] MEDS ORDERED: ALBUTEROL SULFATE HFA (90 MCG/PUFF) 200 PUFF/8.5 GM MDI IH PRN (12:01)
[2017-12-31] MEDS ORDERED: DIGOXIN INJ 0.5 MG/2 ML AMPULE ONE (12:45)
[2017-12-31] MEDS ORDERED: DIGOXIN INJ 0.5 MG/2 ML AMPULE IV ONE (13:30)
[2017-12-31] MEDS: FERROUS SULFATE 325 MG TABLET PO SCH ×2 (13:43→17:22)
[2017-12-31] MEDS: GABAPENTIN 300 MG CAPSULE PO SCH ×2 (13:43→22:35)
[2017-12-31] MEDS: ASPIRIN 81 MG TABLET, ENT COATED PO SCH (13:43)
[2017-12-31] MEDS: BUDESONIDE/FORMOTEROL 160-4.5 MCG 60 PUFF/6 GM MDI IH SCH ×2 (13:46→22:34)
[2017-12-31] MEDS ORDERED: CARVEDILOL 3.125 MG TABLET PO SCH ×2 (14:00→20:49)
[2017-12-31] MEDS ORDERED: TAMSULOSIN HCL 0.4 MG CAP.SR.24H PO SCH (16:00)
[2017-12-31] MEDS ORDERED: ACETAMINOPHEN 325 MG TABLET PO PRN (17:18)
[2017-12-31] MEDS: APIXABAN 5 MG TABLET PO SCH (17:21)
--- NOTE | 2017-12-31 19:37 | PDOC CONSULTATION ---
History of Present Illness Admission Date/PCP: 12/30/17 15:15 JACOBO MARTINEZ DO Patient complains of: Shortness of breath History of Present Illness: ALEX KNIGHT is a 62 year old male with a PMH of CVA, CHF (LVEF 35% on ECHO 07/2017), CAD, PE, asthma, COPD and pacemaker presents to the ED for left- sided chest pain and right knee pain which he states is due to gout. The patient states his L sided chest pain began at 0400 today, it woke him up from sleep. He describes the pain as sharp in nature and states it quickly dissipated but has been intermittently re-occuring today. Of note, the [facility]. He was also diagnosed with a PE and placed on PO anticoagulation (unknown agent). Once in the ED, the patient's EKG revealed sinus tachycardia without evidence of infarction or ischemia. Troponin 0.4. BNP 3350. CXR shows bibasilar infiltrates vs effusion. Chest CTA was preformed to r/o PE since the patient was tachycardic, c/o chest pain and had a recent hx of PE. The CTA revealed bilateral pleural effusions, resolution of old PE in the pulmonary artery to the RML. No evidence of infiltrates. Pleural density in RLL that could demonstrate infarct or loculated effusion. He was diuresed with 40mg Lasix IV. Upon evaluation, the patient is awake and alert. He is sitting on the side of the bed resting comfortably on supplemental oxygen. The patient states he is chest pain free but endorses R knee pain. His speech is slurred but this is a residual deficit from his previous CVA. His respirations are equal and symmetrical, lung sounds are clear but diminished in bilateral lung bases. The patient does not appear to be in any respiratory distress. S1S2. +1 pitting edema in bilateral lower extremities. Admit to hospitalist service for chest pain observation. This history obtained by the hospitalist was reviewed and confirmed. Patient was seen by me during previous hospitalization and had recommended transferred to [facility]. I did try to find out from the patient as to what exactly was done at [facility] but he could not provide me with any answers. It seems patient was diagnosed to have pulmonary embolism and was treated medically. Patient since discharge from [facility] had progressively gotten worse and is noted to have increasing pleural effusion. I was asked to help manage CHF. Past Medical History Cardiac Medical History: Reports: Congestive Heart Failure - Systolic with EF of 25-30% as of 2D echo in July 2017, Coronary Artery Disease, Myocardial Infarction - 2008, Hyperlipidema, Hypertension Pulmonary Medical History: Reports: Asthma, Bronchitis, Chronic Obstructive Pulmonary Disease (COPD), Sleep Apnea Neurological Medical History: Denies: Seizures Endocrine Medical History: Reports: Diabetes Mellitus Type 1, Diabetes Mellitus Type 2 Renal/ Medical History: Malignancy Medical History: Denies: Breast Cancer, Cervical Cancer, Ovarian Cancer GI Medical History: Reports: Diverticulitis, Gastroesophageal Reflux Disease Musculoskeltal Medical History: Reports: Arthritis Psychiatric Medical History: Reports: Post Traumatic Stress Disorder Denies: Depression Hematology: Reports: Anemia Denies: Hemophilia, Sickle Cell Disease - sickle cell trait Infectious Medical History: Past Surgical History Past Surgical History: Reports: Cardiac Catheterization, Coronary Artery Bypass Graft, Coronary Stent - 1984, Other - AICD Social History Information Source: Patient 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 - CAREGIVER Smoking Status: Former Smoker Frequency of Alcohol Use: None Hx Recreational Drug Use: No Drugs: None Hx Prescription Drug Abuse: No - Advance Directive Resuscitation Status: Full Code Surrogate healthcare decision maker:: Patient's son Neri knight Family History Family History: CAD, DM, Hypertension, Thyroid Disfunction Parental Family History Reviewed: Yes Children Family History Reviewed: Yes Sibling(s) Family History Reviewed.: Yes Medication/Allergy Home Medications: Albuterol Sulfate [Albuterol Sulfate 2.5mg/3 mL] 1 vial IH Q4HP PRN 12/31/17 Albuterol Sulfate [Proair Hfa Inhalation Aerosol 8.5 gm Mdi] 1 puff IH Q4HP PRN 12/31/17 Alprazolam [Xanax 0.5 mg Tablet] 0.5 mg PO BIDP PRN 12/31/17 Apixaban [Eliquis 5 mg Tablet] 5 mg PO BID 12/31/17 Ascorbic Acid [Vitamin C 500 mg Tablet] 500 mg PO DAILY 12/31/17 Aspirin [Aspirin EC] 81 mg PO DAILY 12/31/17 Budesonide/Formoterol Fumarate [Symbicort 160-4.5 Mcg Inhaler] 2 puff IH Q12 01/10 Bumetanide [Bumex 1 mg Tablet] 1.5 mg PO Q6AM 12/31/17 Carvedilol [Coreg 3.125 mg Tablet] 3.125 mg PO Q12 12/31/17 Cyclosporine [Restasis Droperette] 1 drop OU Q12 12/31/17 Digoxin [Lanoxin] 62.5 mcg PO DAILY 12/31/17 Docusate Sodium [Colace 100 mg Capsule] 200 mg PO QHS 12/31/17 Ferrous Sulfate [Feosol 325 mg Tablet] 325 mg PO TID 12/31/17 Gabapentin [Neurontin 300 mg Capsule] 300 mg PO Q8 12/31/17 Lactulose [Constulose 10 gm/15 mL Oral Solution] 10 ml PO QHS 12/31/17 Loratadine [Claritin 10 mg Tablet] 10 mg PO DAILY 12/31/17 Metformin HCl 500 mg PO BID 12/31/17 Nitroglycerin [Nitrostat 0.4 mg (1/150 Gr) Tabs 25/Bottle] 1 tab SL PRN PRN 01/10 Clay-3 Fatty Acids/Fish Oil [Clay 3 Fish Oil Softgel] 1 each PO Q12 12/31/17 Omeprazole 20 mg PO DAILY 12/31/17 Polyethylene Glycol 3350 [Miralax Powder 17 gm/Packet] 1 packet PO DAILY Polyvinyl Alcohol [Artificial Tears] 2 drop OU DAILYP PRN 12/31/17 Rosuvastatin Calcium [Crestor] 40 mg PO QHS 12/31/17 Spironolactone [Aldactone 25 mg Tablet] 12.5 mg PO DAILY 12/31/17 Tamsulosin HCl [Flomax 0.4 mg Cap.sr] 0.4 mg PO DAILY 12/31/17 Allergies/Adverse Reactions: captopril [From Capoten] Allergy (Severe, Verified 12/30/17 12:04) Angioedema atorvastatin calcium [From Lipitor] Allergy (Intermediate, Verified 12/30/17 12: 04) Angioedema clopidogrel [From Plavix] Allergy (Verified 12/30/17 12:04) rosuvastatin [From Crestor] Allergy (Verified 12/30/17 12:04) simvastatin [From Zocor] Allergy (Verified 12/30/17 12:04) Angioedema Review of Systems Review of Systems: Please see history of present illness and past medical history as wall. Constitutional: No fever or chills reported. Head : No recent chronic headaches, recent head injury. Eyes: No recent eye pain, diplopia, redness, discharge, acute visual changes. Ears: No recent chronic ear pain, acute hearing loss, ear discharge. Oral cavity: No recent ulcerations, bleeding, oral cavity discomfort. Neck: No recent acute neck pain reported. Hematologic: No recent easy bruising or bleeding. Lymphatic: No recent lymph node enlargement reported. Cardiovascular system review: See history of present illness. Respiratory system review: No hemoptysis or blood clots in the lungs reported. Mild Shortness of breath on exertion Gastrointestinal system review: Negative for any recent acute hematemesis, melena. Significant shortness of breath and increasing pedal edema Genitourinary system review: No recent acute or chronic hematuria, flank pain, UTI etc. reported. Skin system review: Negative for any recent abnormal bruising, no rash, no pruritus reported. Neurologic: No prior history of strokes, mini strokes, seizure disorder. Psychologic: No history of major psychosis or major depression reported. Musculoskeletal: Minor aches and pains reported. No acute joint swelling reported. Endocrine: No recent polyuria, polydipsia, recent heat or cold intolerance. Physical Exam Vital Signs: Temp Pulse Resp BP Pulse Ox 98.7 F 112 H 18 98/76 L 92 12/31/17 17:14 12/31/17 17:14 12/31/17 17:14 12/31/17 17:14 12/31/17 17:14 Intake & Output 12/30/17 12/31/17 01/01/18 06:59 06:59 06:59 Weight 903 kg 86 kg Exam: GENERAL: well-nourished and in no acute distress. Alert and oriented x3 HEAD: Atraumatic, normocephalic. EYES: Pupils equal round and reactive to light, extraocular movements intact, sclera anicteric, conjunctiva are normal. ENT: TMs normal, nares patent, oropharynx clear without exudates. Moist mucous membranes. No oral ulcerations or bleeding gums noted NECK: supple without lymphadenopathy. Trachea is central. No cervical or axillary lymphadenopathy noted. Carotids are 2+, JVD 10-12 cm LUNGS: Respiration seems nonlabored, no significant accessory muscle action noted. Bilateral diminished breath sounds at bases, bibasilar crackles and bilateral significant dullness noted on percussion. CHEST: Palpation of the chest wall shows no significant chest wall tenderness. 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 ABDOMEN: Soft, no significant tenderness appreciated, normoactive bowel sounds. No guarding, no rebound. No rigidity noted . No masses appreciated. EXTREMITIES: Pedal pulses are 1-2+, no calf tenderness noted. No clubbing or cyanosis. 1-2+ pedal edema noted NEUROLOGICAL: Focused neurological exam showed no significant neurologic deficit. Normal speech, no focal weakness appreciated. PSYCH: Normal mood, normal affect. Judgment and insight within normal limits. SKIN: No significant ecchymosis, skin is noted to be warm. MUSCULOSKELETAL EXAM: No significant acute joint swelling noted. Results Laboratory Results: 12/31/17 06:54 12/31/17 06:54 12/31/17 12/31/17 06:54 06:54 WBC 6.1 RBC 4.64 Hgb 12.3 L Hct 38.5 MCV 83 MCH 26.5 L MCHC 32.0 RDW 20.0 H Plt Count 211 Sodium 145.0 Potassium 4.5 Chloride 104 Carbon Dioxide 28 Anion Gap 13 BUN 20 Creatinine 0.92 Est GFR ( Amer) > 60 Est GFR (Non-Af Amer) > 60 Glucose 92 Calcium 8.8 Phosphorus 4.8 H Magnesium 1.6 12/31/17 06:54 NT-Pro-B Natriuret Pep 4720 H EKG Comments: Sinus tachycardia, no acute ST-T wave changes are noted Impressions: Chest X-Ray 12/30/17 00:00 IMPRESSION: Interval line/tube modification. Chest/Abdomen CTA 12/30/17 11:38 IMPRESSION: No acute pulmonary emboli. Resolution of the previous embolus involving the to pulmonary artery to the right upper lobe. Bilateral pleural effusions. Pleural-based density lateral aspect the right base may represent loculated effusion versus infarct. Knee X-Ray 12/30/17 11:40 IMPRESSION: No acute or significant findings. See above discussion. Assessment & Plan - Diagnosis (1) Acute on chronic systolic (congestive) heart failure Is this a current diagnosis for this admission?: Yes (2) Pleural effusion Is this a current diagnosis for this admission?: Yes (3) Tachycardia Is this a current diagnosis for this admission?: Yes (5) Coronary artery disease Qualifiers: Coronary Disease-Associated Artery/Lesion type: unspecified vessel or lesion type [place] vs. transplanted heart: [place] heart Associated angina: angina presence unspecified Qualified Code(s): I25.10 - Atherosclerotic heart disease of [place] coronary artery without angina pectoris Is this a current diagnosis for this admission?: Yes (6) VIOLETA (obstructive sleep apnea) Is this a current diagnosis for this admission?: Yes (7) Pulmonary embolism Qualifiers: Pulmonary embolism type: other Chronicity: unspecified Acute cor pulmonale presence: without acute cor pulmonale Qualified Code(s): I26.99 - Other pulmonary embolism without acute cor pulmonale Is this a current diagnosis for this admission?: No (8) Chest pain Qualifiers: Chest pain type: unspecified Is this a current diagnosis for this admission?: Yes - Notes Notes: Acute on chronic systolic heart failure: Related to LV systolic dysfunction. Would recommend aggressive diuretic therapy, this should include loop diuretics , spironolactone. Would also recommend digitalization. Unfortunately patient is allergic to UZMA inhibitor, will need to find out what exactly the reaction is to UZMA inhibitor. If it is minor reaction then entresto could be used. Recommend hydralazine nitrate combination. Pleural effusion: This is related to CHF. Recommend follow-up chest x-ray, diuresis and thoracentesis if indicated. Tachycardia: Most likely related to uncontrolled CHF. Treat with beta-blockers and digitalization. Recommend ruling out thyrotoxicosis. Hypertension: Blood pressure under reasonable control. Coronary artery disease: Currently symptomatically stable. EKG without any ST- T wave changes. Pulmonary embolism: This is chronic. Continue chronic anticoagulation. Chest pain: [place] to be atypical. Do not feel patient needs a ischemia evaluation this admission. At this point will recommend control of CHF. - Time Time Spent: 30 to 50 Minutes - CODE STATUS was discussed, patient remains full code. Surrogate decision-maker unchanged. Multiple medical problems were addressed. More than 50% of the time spent coordinating care, discussing management plans with involved caregivers. Management plans discussed with involved personnels. Medical decision making was of moderate to high complexity , patient's has multiple comorbidities. Medications reviewed and adjusted accordingly: Yes
--- NOTE | 2017-12-31 20:48 | PDOC PROGRESS REPORT ---
Subjective Progress Note for:: 12/31/17 Subjective:: ALEX KNIGHT is a 62 year old male with a PMH of CVA, CHF (LVEF 35% on ECHO 07/2017), CAD, PE, asthma, COPD and pacemaker presents to the ED with chest pain and SOB. The patient was seen on rounds this morning. He is sitting up in the bedside chair on supplemental oxygen via nasal cannula. The patient is oriented and able to answer most questions. He has residual expressive aphasia from a previous CVA. The patient denies any episodes of chest pain overnight, additionally, he denies SOB. He states he wants to go home. Upon assessment, lungs are clear but diminished in bilateral bases. S1S2. Palpable pulses in all extremities. +1 pitting edema in bilateral lower extremities. The patient was ambulated around the unit while on room air, his SPO2 remained > 92% but his heart rate was consistently elevated. He has remained persistently tachycardic, HR 120-140 this morning. NSR, no ectopy. Looking back through old records, his baseline HR is 70-90. The patient is instructed that he cannot go home until his HR is controlled. He states understanding. BP remains low/normal but MAP remains >65. Cardiology consulted, see recommendations below. Reason For Visit: PLEURAL EFFUSIONS,TACHYCARDIA Physical Exam Vital Signs: Temp Pulse Resp BP Pulse Ox 97.8 F 115 H 20 100/81 99 12/31/17 13:42 12/31/17 14:00 12/31/17 13:42 12/31/17 13:42 12/31/17 13:42 Intake & Output 12/30/17 12/31/17 01/01/18 06:59 06:59 06:59 Weight 903 kg 86 kg General appearance: PRESENT: no acute distress, well-developed, well-nourished Eye exam: PRESENT: conjunctiva pink, PERRLA. ABSENT: EOMI, nystagmus Mouth exam: PRESENT: moist Neck exam: PRESENT: full ROM Respiratory exam: PRESENT: clear to auscultation rahul - diminished lung sounds in bases, symmetrical, unlabored Cardiovascular exam: PRESENT: +S1, +S2, tachycardia Pulses: PRESENT: normal radial pulses, normal dorsalis pedis pul Vascular exam: PRESENT: normal capillary refill GI/Abdominal exam: PRESENT: normal bowel sounds, soft. ABSENT: tenderness Rectal exam: PRESENT: deferred Extremities exam: PRESENT: pedal edema, +1 edema. ABSENT: full ROM - mild hemiparesis secondary to CVA Musculoskeletal exam: PRESENT: ambulatory. ABSENT: full ROM Neurological exam: PRESENT: alert, awake, oriented to person, oriented to place , oriented to time, oriented to situation Psychiatric exam: PRESENT: anxious Skin exam: PRESENT: dry, intact, normal color Results Laboratory Results: 12/31/17 06:54 12/31/17 06:54 12/30/17 12/31/17 12/31/17 16:45 06:54 06:54 WBC 6.1 RBC 4.64 Hgb 12.3 L Hct 38.5 MCV 83 MCH 26.5 L MCHC 32.0 RDW 20.0 H Plt Count 211 Sodium 145.0 Potassium 4.5 Chloride 104 Carbon Dioxide 28 Anion Gap 13 BUN 20 Creatinine 0.92 Est GFR ( Amer) > 60 Est GFR (Non-Af Amer) > 60 Glucose 92 Calcium 8.8 Phosphorus 4.8 H Magnesium 1.6 Urine Color YELLOW Urine Appearance CLEAR Urine pH 5.0 Ur Specific [place] 1.032 Urine Protein NEGATIVE Urine Glucose (UA) NEGATIVE Urine Ketones NEGATIVE Urine Blood NEGATIVE Urine Nitrite NEGATIVE Ur Leukocyte Esterase SMALL H Urine WBC (Auto) 3 Urine RBC (Auto) 1 12/31/17 06:54 NT-Pro-B Natriuret Pep 4720 H Impressions: Chest X-Ray 12/30/17 00:00 IMPRESSION: Interval line/tube modification. Chest/Abdomen CTA 12/30/17 11:38 IMPRESSION: No acute pulmonary emboli. Resolution of the previous embolus involving the to pulmonary artery to the right upper lobe. Bilateral pleural effusions. Pleural-based density lateral aspect the right base may represent loculated effusion versus infarct. Knee X-Ray 12/30/17 11:40 IMPRESSION: No acute or significant findings. See above discussion. Status: Imported from PACS Assessment & Plan - Diagnosis (1) Pleural effusion Is this a current diagnosis for this admission?: Yes Plan: Pleural effusion seen on CTA, likely secondary to CHF, less likely to be secondary to infection Diuresed in ED with IV Lasix, diuresed again with IV lasix this AM Continue 40mg PO daily Lasix Supplemental oxygen to maintain SPO2 > 93% (2) Chest pain Qualifiers: Chest pain type: unspecified Qualified Code(s): R07.9 - Chest pain, unspecified Is this a current diagnosis for this admission?: Yes Plan: Resolved. Likely multifactoral - recent PE, CHF, pleural effusions EKG shows sinus tachycardia, no infarct or ischemia CTA shows B/L pleural effusions, resolving pulmonary embolism in pulmonary artery to RML Troponin consistently 0.04, baseline is 0.04-0.06. No longer trending Diuresis for pleural effusions IV hydralazine 10mg PRN SPB > 170 BNP 4720 will continue to follow. Range of BNP in last 2 years is 680-4930 Plan to consult cardiology, appreciate their recommendations (3) Tachycardia Is this a current diagnosis for this admission?: Yes Plan: Multifactoral - shortness of breath, pain, CHF exacerbation Supplemental O2 via nasal cannula for SOB SL Nitro 0.4mg q5min (MAX 3 tablets) for chest pain BNP elevated this morning to 4720, Diuresis for CHF exacerbation Cardiology consulted, recommend increasing home dose of PO carvedilol and give a one time dose of 0.25mg Digoxin IV Plan to continue home dose digoxin tomorrow (4) Congestive heart failure Qualifiers: Heart failure type: unspecified Heart failure chronicity: acute on chronic Qualified Code(s): I50.9 - Heart failure, unspecified Is this a current diagnosis for this admission?: Yes Plan: Recent ECHO revealed LVEF 35% BNP worsening from 3350 -> 4750 today Diuresed in ED, plan to diurese again this morning. Continue daily PO lasix Resume carvedilol, digoxin, and statin therapy (5) Noncompliance Is this a current diagnosis for this admission?: Yes Plan: Nursing staff reports that the patient is noncompliant with staff He is refusing to give staff information about home medication list He is refusing to let staff obtain vital signs Patient witnessed urinating on the floor despite having urinal at bedside (6) Pulmonary embolism Qualifiers: Pulmonary embolism type: other Chronicity: chronic Acute cor pulmonale presence: without acute cor pulmonale Qualified Code(s): I27.82 - Chronic pulmonary embolism Is this a current diagnosis for this admission?: No Plan: History of PE in Pulmonary Artery to RML Continue home dose Eliquis - Time Time Spent with patient: 15-24 minutes Medications reviewed and adjusted accordingly: Yes Anticipated discharge: Home - Inpatient Certification Based on my medical assessment, after consideration of the patient's comorbidities, presenting symptoms, or acuity I expect that the services needed warrant INPATIENT care.: Yes I certify that my determination is in accordance with my understanding of Medicare's requirements for reasonable and necessary INPATIENT services [42 CFR 412.3e].: Yes Medical Necessity: Risk of Complication if Not Cared For in Hospital - Plan Summary Plan Summary: RESTART HOME MEDICATIONS. DIURESE THIS AM FOR PLEURAL EFFUSIONS. CARDIOLOGY CONSULTED.
[2017-12-31] MEDS ORDERED: (PENDING PHARMACY ID) (Lactulose [Constulose 10 Gm/15 Ml Oral Solution] 10 ML) PO SCH (22:00)
[2017-12-31] MEDS ORDERED: (PENDING PHARMACY ID) (Rosuvastatin Calcium [Crestor] 40 MG) PO SCH (22:00)
[2017-12-31] MEDS: CYCLOSPORINE 0.05% OPH EMULSIO 0.4 ML DROPERETTE OU SCH (22:34)
[2017-12-31] MEDS: LACTULOSE SYRUP 20 GM/30 ML UDCUP PO SCH ×2 (22:35→22:49)
[2017-12-31] MEDS: CARVEDILOL 6.25 MG TABLET PO SCH (22:46)
[2018-01-01] MEDS ORDERED: LANSOPRAZOLE 15 MG TAB.RAP.DR PO SCH (06:00)
[2018-01-01] MEDS ORDERED: BUMETANIDE 1 MG TABLET PO SCH (06:00)
[2018-01-01] MEDS: GABAPENTIN 300 MG CAPSULE PO SCH ×2 (07:19→13:29)
[2018-01-01 07:30] LABS: HEMATOCRIT 38.2 % (37.9-51.0); HEMOGLOBIN 12.3 g/dL (13.5-17.0); MEAN CORPUSCULAR HEMOGLOBIN 26.7 pg (27.0-33.4); MEAN CORPUSCULAR HGB CONC 32.2 g/dL (32.0-36.0); MEAN CORPUSCULAR VOLUME 83 fl (80-97); PLATELET COUNT 217 10^3/uL (150-450); RED BLOOD COUNT 4.62 10^6/uL (4.35-5.55); RED CELL DISTRIBUTION WIDTH 19.9 % (11.5-14.0); WHITE BLOOD COUNT 5.2 10^3/uL (4.0-10.5)
[2018-01-01 07:49] LABS: ANION GAP 12 (5-19); BLOOD UREA NITROGEN 27 mg/dL (7-20); CALCIUM 8.7 mg/dL (8.4-10.2); CARBON DIOXIDE 31 mmol/L (22-30); CHLORIDE 101 mmol/L (98-107); GLUCOSE 97 mg/dL (75-110); PHOSPHORUS 5.6 mg/dL (2.5-4.5); POTASSIUM 4.5 mmol/L (3.6-5.0); SODIUM 143.9 mmol/L (137-145)
[2018-01-01] MEDS: CARVEDILOL 6.25 MG TABLET PO SCH (09:23)
[2018-01-01] MEDS: ASPIRIN 81 MG TABLET, ENT COATED PO SCH (09:23)
[2018-01-01] MEDS: ALPRAZOLAM 0.25 MG TABLET PO PRN (09:23)
[2018-01-01] MEDS: APIXABAN 5 MG TABLET PO SCH (09:24)
[2018-01-01] MEDS: ENOXAPARIN SODIUM INJ 30 MG/0.3 ML DISP.SYRIN SUBCUT SCH (09:25)
[2018-01-01] MEDS: FUROSEMIDE 40 MG TABLET PO SCH (09:25)
[2018-01-01] MEDS: FERROUS SULFATE 325 MG TABLET PO SCH ×2 (09:25→13:29)
[2018-01-01] MEDS: CYCLOSPORINE 0.05% OPH EMULSIO 0.4 ML DROPERETTE OU SCH (09:26)
[2018-01-01] MEDS: BUDESONIDE/FORMOTEROL 160-4.5 MCG 60 PUFF/6 GM MDI IH SCH (09:28)
[2018-01-01] MEDS ORDERED: SPIRONOLACTONE 25 MG TABLET PO SCH (10:00)
[2018-01-01] MEDS ORDERED: DIGOXIN 0.125 MG TABLET PO SCH (10:00)
[2018-01-01] MEDS ORDERED: POLYETHYLENE GLYCOL 3350 POWDER 17 GM/1 PACKET PO SCH (10:00)
--- NOTE | 2018-01-01 10:48 | Physician Advisory Note ---
Physician Advisor ProgressNote .: Pursuant to the plan for Pending Sale To [facility], I have reviewed the medical record for this patient. Physician Advisor Statement: Nice documentation of acute on chronic systolic CHF w/EF 35%, pleural effusion. Please consider documenting, if you agree: 1. "Chronic hypoxemic respiratory failure requiring 2L O2 at baseline" 2. "Acute hypernatremia, mild, likely due to , resolved" Thanks! CK
[2018-01-01 12:30] VITALS: BP 103/74
[2018-01-01] MEDS ORDERED: DIGOXIN INJ 0.5 MG/2 ML AMPULE IV ONE (12:37)
[2018-01-01] MEDS ORDERED: CARVEDILOL 6.25 MG TABLET PO ONE (12:37)
[2018-01-01] MEDS ORDERED: DIGOXIN INJ 0.5 MG/2 ML AMPULE ONE (12:44)
[2018-01-01] MEDS ORDERED: CARVEDILOL 6.25 MG TABLET ONE (12:44)
--- NOTE | 2018-01-01 22:38 | PDOC PROGRESS REPORT ---
Subjective Progress Note for:: 01/01/18 Subjective:: No complaints, remains slightly tachycardic but noted to be very comfortable laying on bedside chair. He claims he is able to ambulate to the bathroom. Reason For Visit: PLEURAL EFFUSIONS,TACHYCARDIA Physical Exam Vital Signs: Temp Pulse Resp BP Pulse Ox 97.9 F 105 H 18 103/74 100 01/01/18 11:22 01/01/18 14:00 01/01/18 11:22 01/01/18 11:22 01/01/18 11:22 Intake & Output 12/31/17 01/01/18 01/02/18 06:59 06:59 06:59 Intake Total 0 Output Total 250 Balance -250 Weight 903 kg 86 kg Exam: GENERAL: well-nourished and in no acute distress. Alert and oriented x3 HEAD: Atraumatic, normocephalic. EYES: Pupils equal round and reactive to light, extraocular movements intact, sclera anicteric, conjunctiva are normal. ENT: TMs normal, nares patent, oropharynx clear without exudates. Moist mucous membranes. No oral ulcerations or bleeding gums noted NECK: supple without lymphadenopathy. Trachea is central. No cervical or axillary lymphadenopathy noted. Carotids are 2+, JVD borderline elevated LUNGS: Respiration seems nonlabored, no significant accessory muscle action noted. Few bibasilar crackles are noted. No wheezes rales or rhonchi noted. Mild redness noted both bases at the extreme bases. CHEST: Palpation of the chest wall shows no significant chest wall tenderness. HEART: [place] [employer], No PSH, 1/6 NITISH aortic area, 1/6 daly systolic murmur mitral area, no rubs, no gallops. ABDOMEN: Soft, no significant tenderness appreciated, normoactive bowel sounds. No guarding, no rebound. No rigidity noted . No masses appreciated. EXTREMITIES: Pedal pulses are 1-2+, no calf tenderness noted. No clubbing or cyanosis. 1+ pedal edema noted NEUROLOGICAL: Focused neurological exam showed no significant neurologic deficit. Normal speech, no focal weakness appreciated. PSYCH: Normal mood, normal affect. Judgment and insight within normal limits. SKIN: No significant ecchymosis, skin is noted to be warm. MUSCULOSKELETAL EXAM: No significant acute joint swelling noted. Results Laboratory Results: 01/01/18 07:15 01/01/18 07:15 01/01/18 01/01/18 01/01/18 07:15 07:15 07:15 WBC 5.2 RBC 4.62 Hgb 12.3 L Hct 38.2 MCV 83 MCH 26.7 L MCHC 32.2 RDW 19.9 H Plt Count 217 Sodium 143.9 Potassium 4.5 Chloride 101 Carbon Dioxide 31 H Anion Gap 12 BUN 27 H Creatinine 1.37 H Est GFR ( Amer) > 60 Est GFR (Non-Af Amer) 52 L Glucose 97 Calcium 8.7 Phosphorus 5.6 H Magnesium 1.8 TSH 2.10 12/31/17 01/01/18 06:54 07:15 NT-Pro-B Natriuret Pep 4720 H 4380 H EKG Comments: Telemetry shows sinus tachycardia but no acute ST-T wave changes Impressions: Chest X-Ray 12/30/17 00:00 IMPRESSION: Interval line/tube modification. Chest/Abdomen CTA 12/30/17 11:38 IMPRESSION: No acute pulmonary emboli. Resolution of the previous embolus involving the to pulmonary artery to the right upper lobe. Bilateral pleural effusions. Pleural-based density lateral aspect the right base may represent loculated effusion versus infarct. Knee X-Ray 12/30/17 11:40 IMPRESSION: No acute or significant findings. See above discussion. Assessment & Plan - Diagnosis (1) Acute on chronic systolic (congestive) heart failure Is this a current diagnosis for this admission?: Yes (2) Pleural effusion Is this a current diagnosis for this admission?: Yes (3) Tachycardia Is this a current diagnosis for this admission?: Yes (5) Coronary artery disease Qualifiers: Coronary Disease-Associated Artery/Lesion type: unspecified vessel or lesion type [place] vs. transplanted heart: [place] heart Associated angina: angina presence unspecified Qualified Code(s): I25.10 - Atherosclerotic heart disease of [place] coronary artery without angina pectoris Is this a current diagnosis for this admission?: Yes (6) VIOLETA (obstructive sleep apnea) Is this a current diagnosis for this admission?: Yes (7) Pulmonary embolism Qualifiers: Pulmonary embolism type: other Chronicity: chronic Acute cor pulmonale presence: without acute cor pulmonale Qualified Code(s): I27.82 - Chronic pulmonary embolism Is this a current diagnosis for this admission?: No (8) Chest pain Qualifiers: Chest pain type: unspecified Qualified Code(s): R07.9 - Chest pain, unspecified Is this a current diagnosis for this admission?: Yes - Notes Notes: Overall slow gradual improvement. Acute on chronic systolic heart failure: Related to LV systolic dysfunction. Would recommend aggressive diuretic therapy, this should include loop diuretics , spironolactone. Would also recommend digitalization. Unfortunately patient is allergic to UZMA inhibitor. CHF seems significantly improved. Pleural effusion: This is related to CHF. Recommend follow-up chest x-ray, diuresis and thoracentesis if indicated. Tachycardia: Most likely related to uncontrolled CHF. Treat with beta-blockers and digitalization. Recommend ruling out thyrotoxicosis. Hypertension: Blood pressure under reasonable control. Coronary artery disease: Currently symptomatically stable. EKG without any ST- T wave changes. Pulmonary embolism: This is chronic. Continue chronic anticoagulation. Chest pain: [place] to be atypical. Do not feel patient needs a ischemia evaluation this admission. At this point will recommend control of CHF. I am told patient is being discharged today. Patient could follow-up with me or his primary care diamond cleaver as he wishes. - Time Time with patient: Greater than 35 minutes - Significant time spent discussing management of CHF with nurses, patient. More than 50% of the time spent coordinating care, discussing management plans with involved caregivers. Management plans discussed with involved personnels. Medical decision making was of moderate to high complexity, patient's has multiple comorbidities. Medications reviewed and adjusted accordingly: Yes
--- NOTE | 2018-01-05 11:18 | PDOC DISCHARGE SUMMARY ---
General - Admit/Disc Date/PCP Admission Date/Primary Care Provider: 12/30/17 15:15 JACOBO MARTINEZ, Discharge Date: 01/01/18 - Discharge Diagnosis (1) Pleural effusion Is this a current diagnosis for this admission?: Yes (2) Chest pain Is this a current diagnosis for this admission?: Yes (3) Tachycardia Is this a current diagnosis for this admission?: Yes (4) Congestive heart failure Is this a current diagnosis for this admission?: Yes (5) Noncompliance Is this a current diagnosis for this admission?: Yes (6) Pulmonary embolism Is this a current diagnosis for this admission?: No - Additional Information Resuscitation Status: Full Code Discharge Diet: Cardiac, Diabetic Discharge Activity: Activity As Tolerated, Balance Activity w/Rest, Weigh Daily Prescriptions: Carvedilol 12.5 mg PO BID #60 tablet Digoxin [Lanoxin 0.125 mg Tablet] 0.125 mg PO DAILY #30 tablet Home Medications: Albuterol Sulfate [Albuterol Sulfate 2.5mg/3 mL] 1 vial IH Q4HP PRN 12/31/17 Albuterol Sulfate [Proair HFA Inhalation Aerosol 8.5 gm MDI] 1 puff IH Q4HP PRN 12/31/17 Alprazolam [Xanax 0.5 mg Tablet] 0.5 mg PO BIDP PRN 12/31/17 Apixaban [Eliquis 5 mg Tablet] 5 mg PO BID 12/31/17 Ascorbic Acid [Vitamin C 500 mg Tablet] 500 mg PO DAILY 12/31/17 Aspirin [Aspirin EC] 81 mg PO DAILY 12/31/17 Budesonide/Formoterol Fumarate [Symbicort 160-4.5 Mcg Inhaler] 2 puff IH Q12 01/10 Bumetanide [Bumex 1 mg Tablet] 1.5 mg PO Q6AM 12/31/17 Cyclosporine [Restasis Droperette] 1 drop OU Q12 12/31/17 Docusate Sodium [Colace 100 mg Capsule] 200 mg PO QHS 12/31/17 Ferrous Sulfate [Feosol 325 mg Tablet] 325 mg PO TID 12/31/17 Gabapentin [Neurontin 300 mg Capsule] 300 mg PO Q8 12/31/17 Lactulose [Constulose 10 gm/15 mL Oral Solution] 10 ml PO QHS 12/31/17 Loratadine [Claritin 10 mg Tablet] 10 mg PO DAILY 12/31/17 Metformin HCl 500 mg PO BID 12/31/17 Nitroglycerin [Nitrostat 0.4 mg (1/150 Gr) Tabs 25/Bottle] 1 tab SL PRN PRN 01/10 [place]-3 Fatty Acids/Fish Oil [[place] 3 Fish Oil Softgel] 1 each PO Q12 12/31/17 Omeprazole 20 mg PO DAILY 12/31/17 Polyethylene Glycol 3350 [Miralax Powder 17 gm/Packet] 1 packet PO DAILY Polyvinyl Alcohol [Artificial Tears] 2 drop OU DAILYP PRN 12/31/17 Rosuvastatin Calcium [Crestor] 40 mg PO QHS 12/31/17 Spironolactone [Aldactone 25 mg Tablet] 12.5 mg PO DAILY 12/31/17 Tamsulosin HCl [Flomax 0.4 mg Cap.sr] 0.4 mg PO DAILY 12/31/17 Carvedilol 12.5 mg PO BID #60 tablet 01/01/18 Digoxin [Lanoxin 0.125 mg Tablet] 0.125 mg PO DAILY #30 tablet 01/01/18 Benzonatate [Tessalon Perle 100 mg Capsule] 100 mg PO Q8HP PRN #20 cap 01/04/18 History of Present Illness History of Present Illness: ALEX KNIGHT is a 62 year old male with a PMH of CVA, CHF (LVEF 35% on ECHO 07/2017), CAD, PE, asthma, COPD and pacemaker presents to the ED for left- sided chest pain and right knee pain which he states is due to gout. The patient states his L sided chest pain began at 0400 today, it woke him up from sleep. He describes the pain as sharp in nature and states it quickly dissipated but has been intermittently re-occuring today. Of note, the patient was recently admitted to [facility] for a CHF exacerbation. He was also diagnosed with a PE and placed on PO anticoagulation (unknown agent). Once in the ED, the patient's EKG revealed sinus tachycardia without evidence of infarction or ischemia. Troponin 0.4. BNP 3350. CXR shows bibasilar infiltrates vs effusion. Chest CTA was preformed to r/o PE since the patient was tachycardic, c/o chest pain and had a recent hx of PE. The CTA revealed bilateral pleural effusions, resolution of old PE in the pulmonary artery to the RML. No evidence of infiltrates. Pleural density in RLL that could demonstrate infarct or loculated effusion. He was diuresed with 40mg Lasix IV. Upon evaluation, the patient is awake and alert. He is sitting on the side of the bed resting comfortably on supplemental oxygen. The patient states he is chest pain free but endorses R knee pain. His speech is slurred but this is a residual deficit from his previous CVA. His respirations are equal and symmetrical, lung sounds are clear but diminished in bilateral lung bases. The patient does not appear to be in any respiratory distress. S1S2. +1 pitting edema in bilateral lower extremities. Admit to hospitalist service for chest pain observation. Hospital Course Hospital Course: THIS PATIENT LEFT AMA ON 01/01/2018 ALEX Guadarrama KNIGHT is a 62 year old male with a PMH of CVA, CHF (LVEF 35% on ECHO 07/2017), CAD, PE, asthma, COPD and pacemaker presents to the ED with chest pain and SOB. B/L pleural effusion seen on CTA, likely secondary to CHF (BNP 4270). BNP range over last few years has been 680-4900. Lung sounds diminished in RML and RLL and LLL. Diuresed in ED with IV Lasix, continued on 40mg PO daily Lasix. By hospital day #3 his lung sounds were clear, supplemental oxygen requirements decreased and he was able to maintain SPO2 > 93%. Unfortunately, the patient became extremely tachycardic with any activity. His HR would increase to 120- 135 with ambulation, his baseline HR is normally 70-90. Cardiology recommended increasing home dose Carvedilol and and administering digoxin. Of note, the patient recently spent 10 days as an inpatient at [facility] for PE and CHF exacerbation (NOVEMBER 2017). According to the patient's caregiver, the patient signed out AMA on hospital day 10. Approximately 2-3 weeks later is when he presented to [facility] ED. On hospital day 3 of this admission, the patient became very agitated stating that he wanted to go home. The patient stated, "I am tired, I have been in the hospital for so long, I want to go home." I explained in great detail the reasons why the patient was still in the hospital: Persistent tachycardia, bilateral pleural effusions, CHF exacerbation. The risks of leaving the hospital without completing treatment was fully explained to the patient with his caregiver and [facility] RN at bedside to witness conversation. The patient stated understanding. He signed the AMA paperwork and left with his caregiver. Physical Exam Vital Signs: Temp Pulse Resp BP Pulse Ox 97.9 F 105 H 18 103/74 100 01/01/18 11:22 01/01/18 14:00 01/01/18 11:22 01/01/18 11:22 01/01/18 11:22 Results Laboratory Results: 01/01/18 07:15 01/01/18 07:15 12/31/17 01/01/18 06:54 07:15 NT-Pro-B Natriuret Pep 4720 H 4380 H Impressions: Chest X-Ray 12/30/17 00:00 IMPRESSION: Interval line/tube modification. Chest/Abdomen CTA 12/30/17 11:38 IMPRESSION: No acute pulmonary emboli. Resolution of the previous embolus involving the to pulmonary artery to the right upper lobe. Bilateral pleural effusions. Pleural-based density lateral aspect the right base may represent loculated effusion versus infarct. Knee X-Ray 12/30/17 11:40 IMPRESSION: No acute or significant findings. See above discussion. Status: Imported from PACS Qualifiers - * PATIENT BEING DISCHARGED WITH ANY OF THE FOLLOWING DIAGNOSIS: Heart Failure HF Pt being discharged on ACEI for LVEF less than 40%?: No Reason(s) for not prescribing ACEI:: Drug declined by patient - patient left AGAINST MEDICAL ADVICE HF Pt being discharged on ARBS for LVEF less than 40%?: No Reason(s) for not prescribing ARBS:: Drug declined by patient - Patient left AGAINST MEDICAL ADVICE HF Pt with Afib discharged with Warfarin?: No Reason(s) for not prescribing Warfarin:: Drug declined by patient - Patient left AGAINST MEDICAL ADVICE, Not indicated - Patient currently taking Eliquis HF Pt discharged on evidence-based Beta Makenna:: Yes Plan Discharge Plan: Patient left a AGAINST MEDICAL ADVICE Time Spent: Less than 30 Minutes
== END 2018-01-01 15:48 | disposition left against medical advice (07) | DRG 292 ==
LOC: ER 07:14 → EH 15:15 → 3N 23:30
PROVIDERS: ADMIT Internal Medicine; ATTEND Internal Medicine
PROC: 3E0F73Z Introduction of Anti-inflammatory into Respiratory Tract, Via Natural or Artificial Opening (ICD-10-PCS; principal; 2017-12-30)
DX: I11.0 Hypertensive heart disease with heart failure (principal); I27.82 Chronic pulmonary embolism; I50.23 Acute on chronic systolic (congestive) heart failure; I25.10 Atherosclerotic heart disease of native coronary artery without angina pectoris; J44.9 Chronic obstructive pulmonary disease, unspecified; M10.061 Idiopathic gout, right knee; R00.0 Tachycardia, unspecified; E78.00 Pure hypercholesterolemia, unspecified; E11.9 Type 2 diabetes mellitus without complications; K21.9 Gastro-esophageal reflux disease without esophagitis; G47.33 Obstructive sleep apnea (adult) (pediatric); M19.90 Unspecified osteoarthritis, unspecified site; F43.10 Post-traumatic stress disorder, unspecified; F41.9 Anxiety disorder, unspecified; I25.2 Old myocardial infarction; I69.328 Other speech and language deficits following cerebral infarction; Z90.49 Acquired absence of other specified parts of digestive tract; Z91.19 Patient's noncompliance with other medical treatment and regimen; Z79.899 Other long term (current) drug therapy; Z79.82 Long term (current) use of aspirin; Z95.0 Presence of cardiac pacemaker; Z86.711 Personal history of pulmonary embolism; Z91.14 Patient's other noncompliance with medication regimen; Z95.1 Presence of aortocoronary bypass graft; Z95.5 Presence of coronary angioplasty implant and graft; Z95.810 Presence of automatic (implantable) cardiac defibrillator; Z87.891 Personal history of nicotine dependence; Z88.8 Allergy status to other drugs, medicaments and biological substances; Z82.49 Family history of ischemic heart disease and other diseases of the circulatory system; Z83.3 Family history of diabetes mellitus; Z83.49 Family history of other endocrine, nutritional and metabolic diseases
CPT/HCPCS: 36415; 71045; 71275; 80048; 80053; 81001; 82550; 82553; 82962; 83735; 83880; 84100; 84443; 84484; 84550; 85025; 85027; 86140; 87070; 87205; 93005; 93010; 94640; 96374; 99285; J1160; J1650; J1940; J2270; J3490; J7620

== ENCOUNTER 2018-01-04 13:19 | Emergency (ER) | payer MEDICARE ==
[2018-01-04 13:35] VITALS: BP 101/61
--- NOTE | 2018-01-04 14:29 | ER Document Report ---
ED Medical Screen (RME) - General Chief Complaint: Chest Pain Stated Complaint: HEART BURN,COUGH,CONGESTION Time Seen by Provider: 01/04/18 13:53 Mode of Arrival: Wheelchair Information source: Patient, Relative Notes: 62-year-old male with congestive heart failure, coronary artery disease, hypertension, hyperlipidemia, COPD presents with complaint of productive cough that has been ongoing for 2 weeks. Patient also complaining of chest pain that started this morning. He describes the pain as a burning pain. He is insistent this is indigestion because "I know when I am having a heart attack". Patient denies worsening shortness of breath. He was recently admitted in December for pleural effusions. I have greeted and performed a rapid initial assessment of this patient. A comprehensive ED assessment and evaluation of the patient, analysis of test results and completion of medical decision making process we will be contacted by additional ED providers. PHYSICAL EXAMINATION: GENERAL: Well-appearing, well-nourished and in no acute distress. HEAD: Atraumatic, normocephalic. EYES: Pupils equal round extraocular movements intact, conjunctiva are normal. ENT: Nares patent NECK: Normal range of motion LUNGS: Diminished breath sounds in all lung [place] Musculoskeletal: Normal range of motion NEUROLOGICAL: Normal speech, normal gait. PSYCH: Normal mood, normal affect. SKIN: Warm, Dry, normal turgor, no rashes or lesions noted. TRAVEL OUTSIDE OF THE [place] IN LAST 30 DAYS: No - HPI Onset: Other Onset/Duration: Gradual, Persistent, Worse Quality of pain: Other - Burning chest pain Associated Symptoms: Chest pain, Cough (productive) Exacerbated by: Coughing Relieved by: Denies Similar symptoms previously: Yes Recently seen / treated by doctor: Yes - 12/30/17 - Related Data Allergies/Adverse Reactions: captopril [From Capoten] Allergy (Severe, Verified 01/04/18 13:21) Angioedema atorvastatin calcium [From Lipitor] Allergy (Intermediate, Verified 01/04/18 13: 21) Angioedema clopidogrel [From Plavix] Allergy (Verified 01/04/18 13:21) rosuvastatin [From Crestor] Allergy (Verified 01/04/18 13:21) simvastatin [From Zocor] Allergy (Verified 01/04/18 13:21) Angioedema Past Medical History - Social History Chew tobacco use (# tins/day): No Frequency of alcohol use: None Drug Abuse: None Family history: None - Past Medical History Cardiac Medical History: Reports: Hx Congestive Heart Failure - Systolic with EF of 25-30% as of 2D echo in July 2017, Hx Coronary Artery Disease, Hx Heart Attack - 2009, Hx Hypercholesterolemia, Hx Hypertension Pulmonary Medical History: Reports: Hx Asthma, Hx Bronchitis, Hx COPD, Hx Sleep Apnea Neurological Medical History: Reports: Hx Cerebrovascular Accident - x 2. Denies: Hx Seizures Endocrine Medical History: Reports: Hx Diabetes Mellitus Type 1, Hx Diabetes Mellitus Type 2 Renal/ Medical History: Denies: Hx Peritoneal Dialysis Malignancy Medical History: GI Medical History: Reports: Hx Diverticulitis, Hx Gastroesophageal Reflux Disease Musculoskeltal Medical History: Reports Hx Arthritis, Reports Hx Musculoskeletal Deformity, Reports Hx Musculoskeletal Trauma Psychiatric Medical History: Reports: Hx Anxiety, Hx Post Traumatic Stress Disorder Denies: Hx Depression Infectious Medical History: Past Surgical History: Reports: Hx Abdominal Surgery - for diverticulitis, Hx Bowel Surgery - Colon resection due to diverticulitis, Hx Cardiac Catheterization, Hx Cardiac Surgery - 1984, ICD placement 2015, Hx Coronary Artery Bypass Graft, Hx Coronary Stent - 1984, Hx Thyroid Surgery, Other - AICD - Immunizations Immunizations up to date: Yes Hx Diphtheria, Pertussis, Tetanus Vaccination: Yes History of Influenza Vaccine for 02/2017 - 07/2017 Season: Refused Physical Exam - Vital signs Vitals: Temp Pulse Resp BP Pulse Ox 98.6 F 93 20 101/61 96 01/04/18 13:33 01/04/18 13:33 01/04/18 13:33 01/04/18 13:33 01/04/18 13:33 Course - Vital Signs Vital signs: Temp Pulse Resp BP Pulse Ox 98.6 F 93 20 101/61 96 01/04/18 13:33 01/04/18 13:33 01/04/18 13:33 01/04/18 13:33 01/04/18 13:33 Doctor's Discharge - Discharge Referrals: JACOBO MARTINEZ DO [Primary Care Provider] - Follow up as needed
--- NOTE | 2018-01-04 15:51 | RADIOLOGY REPORT (SQ) ---
EXAM DESCRIPTION: CHEST 2 VIEWS COMPLETED DATE/TIME: 01/04/2018 3:42 pm REASON FOR STUDY: Productive cough COMPARISON: 12/30/2017 EXAM PARAMETERS: NUMBER OF VIEWS: two views TECHNIQUE: Digital Frontal and Lateral radiographic views of the chest acquired. RADIATION DOSE: NA LIMITATIONS: none FINDINGS: LUNGS AND PLEURA: No focal consolidation visualized. Right greater than left pleural effu sions. No pneumothorax. MEDIASTINUM AND HILAR STRUCTURES: Stable. HEART AND VASCULAR STRUCTURES: Cardiomegaly without vascular congestion. BONES: No acute findings. HARDWARE: Cardiac pacer, stable. OTHER: No other significant finding. IMPRESSION: Bilateral pleural effusions. Otherwise stable radiographic appearance of the chest. TECHNICAL DOCUMENTATION: JOB ID: [id number] [employer]- All Rights Reserved Reading location - IP/workstation name: [email or web address]
[2018-01-04 15:58] LABS: HEMATOCRIT 38.6 % (37.9-51.0); HEMOGLOBIN 12.6 g/dL (13.5-17.0); MEAN CORPUSCULAR HEMOGLOBIN 27.1 pg (27.0-33.4); MEAN CORPUSCULAR HGB CONC 32.5 g/dL (32.0-36.0); MEAN CORPUSCULAR VOLUME 84 fl (80-97); PLATELET COUNT 227 10^3/uL (150-450); RED BLOOD COUNT 4.62 10^6/uL (4.35-5.55); RED CELL DISTRIBUTION WIDTH 19.4 % (11.5-14.0); WHITE BLOOD COUNT 5.8 10^3/uL (4.0-10.5)
[2018-01-04] MEDS ORDERED: LIDOCAINE 2% VISCOUS SOLN 20 ML UDCUP PO ONE (16:02)
[2018-01-04] MEDS ORDERED: MAG HYDROX/AL HYDROX/SIMETH SUSP 30 ML UDCUP PO ONE (16:02)
[2018-01-04] MEDS ORDERED: ACETYLCYSTEINE 10% NEB 400 MG/4 ML VIAL NEB ONE (16:04)
[2018-01-04] MEDS ORDERED: IPRATROPIUM/ALBUTEROL 0.5-2.5 MG/3 ML AMPUL NEB ONE (16:04)
[2018-01-04] MEDS ORDERED: BENZONATATE 100 MG CAPSULE PO ONE (16:04)
--- NOTE | 2018-01-04 16:11 | ER Document Report ---
ED General - General Chief Complaint: Chest Pain Stated Complaint: HEART BURN,COUGH,CONGESTION Time Seen by Provider: 01/04/18 13:53 Mode of Arrival: Wheelchair TRAVEL OUTSIDE OF THE [place] IN LAST 30 DAYS: No - HPI Notes: 62-year-old male with history of coronary artery disease and congestive heart failure with pleural effusions, asthma presents with increasing "heartburn" for the past few days. He also has worsening cough productive of thick clear sputum. Denies chest pain or increased shortness of breath from baseline. No fevers or chills. No increased leg swelling from baseline. 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 Patient requesting medication for frequent cough. - Related Data Allergies/Adverse Reactions: captopril [From Capoten] Allergy (Severe, Verified 01/04/18 13:21) Angioedema atorvastatin calcium [From Lipitor] Allergy (Intermediate, Verified 01/04/18 13: 21) Angioedema clopidogrel [From Plavix] Allergy (Verified 01/04/18 13:21) rosuvastatin [From Crestor] Allergy (Verified 01/04/18 13:21) simvastatin [From Zocor] Allergy (Verified 01/04/18 13:21) Angioedema Past Medical History - General Information source: Patient, Relative - Social History Smoking Status: Never Smoker Chew tobacco use (# tins/day): No Frequency of alcohol use: None Drug Abuse: None Family History: CAD, DM, Hypertension, Thyroid Disfunction Patient has suicidal ideation: No Patient has homicidal ideation: No - Past Medical History Cardiac Medical History: Reports: Hx Congestive Heart Failure - Systolic with EF of 25-30% as of 2D echo in July 2017, Hx Coronary Artery Disease, Hx Heart Attack - 2008, Hx Hypercholesterolemia, Hx Hypertension Pulmonary Medical History: Reports: Hx Asthma, Hx Bronchitis, Hx COPD, Hx Sleep Apnea Neurological Medical History: Reports: Hx Cerebrovascular Accident - x 2. Denies: Hx Seizures Endocrine Medical History: Reports: Hx Diabetes Mellitus Type 1, Hx Diabetes Mellitus Type 2 Renal/ Medical History: Denies: Hx Peritoneal Dialysis Malignancy Medical History: GI Medical History: Reports: Hx Diverticulitis, Hx Gastroesophageal Reflux Disease Musculoskeletal Medical History: Reports Hx Arthritis, Reports Hx Musculoskeletal Deformity, Reports Hx Musculoskeletal Trauma Psychiatric Medical History: Reports: Hx Anxiety, Hx Post Traumatic Stress Disorder Denies: Hx Depression Infectious Medical History: Past Surgical History: Reports: Hx Abdominal Surgery - for diverticulitis, Hx Bowel Surgery - Colon resection due to diverticulitis, Hx Cardiac Catheterization, Hx Cardiac Surgery - 1984, ICD placement 2015, Hx Coronary Artery Bypass Graft, Hx Coronary Stent - 1984, Hx Thyroid Surgery, Other - AICD - Immunizations Immunizations up to date: Yes Hx Diphtheria, Pertussis, Tetanus Vaccination: Yes Hx Pneumococcal Vaccination: 05/26/10 Review of Systems - Review of Systems Notes: Constitutional: Negative for fever. HENT: Negative for sore throat. Eyes: Negative for visual changes. Cardiovascular: Negative for chest pain. Positive for "heartburn radiating in his throat" Respiratory: Negative for shortness of breath. Positive for productive cough Gastrointestinal: Negative for abdominal pain, vomiting or diarrhea. Genitourinary: Negative for dysuria. Musculoskeletal: Negative for back pain. Skin: Negative for rash. Neurological: Negative for headaches, weakness or numbness. Positive for expressive aphasia 10 point ROS negative except as marked above and in HPI. Physical Exam - Vital signs Vitals: Temp Pulse Resp BP Pulse Ox 98.6 F 93 20 101/61 96 01/04/18 13:33 01/04/18 13:33 01/04/18 13:33 01/04/18 13:33 01/04/18 13:33 - Notes Notes: PHYSICAL EXAMINATION: GENERAL: Well-appearing, well-nourished and in no acute distress. HEAD: Atraumatic, normocephalic. EYES: Pupils equal round and reactive to light, extraocular movements intact, conjunctiva are normal. ENT: nares patent, oropharynx clear without exudates. Moist mucous membranes. NECK: Normal range of motion, supple without lymphadenopathy LUNGS: Breath sounds rhonchorous with wheezing. No respiratory distress HEART: Regular rate and rhythm, no chest wall tenderness ABDOMEN: Soft, nontender, normoactive bowel sounds. No guarding, no rebound. No masses appreciated. EXTREMITIES: Normal range of motion. No cyanosis. 2+ pitting edema bilateral legs NEUROLOGICAL: Cranial nerves grossly intact. Expressive aphasia PSYCH: Normal mood, normal affect. SKIN: Warm, Dry, normal turgor, no rashes or lesions noted. Course - Re-evaluation Re-evalutation: 01/04/18 16:45 Patient admitted earlier this month for chest pain and shortness of breath. He was found to have bilateral effusions and sinus tachycardia thought to be related to uncontrolled congestive heart failure. BNP has increased from the 4000s to the 6000's today. He has mild chronic troponin elevation and renal insufficiency that is unchanged. He is on digoxin, Eliquis, Aldactone, Bumex. Patient refused DuoNeb. Will try Mucomyst for excessive pulmonary secretions. Given IV Lasix and GI cocktail. Will monitor and recheck troponin. 01/04/18 18:48 Patient feeling much better and wants to go home. His heartburn has resolved. His cough has improved. His repeat troponin hemolyzed. He does not want to stay for a redraw. Given risks of leaving and he expressed understanding. He has been compliant with his Bumex at home. At this time will discharge with return precautions and follow-up recommendations. Verbal discharge instructions given a the bedside and opportunity for questions given. Medication warnings reviewed. Patient is in agreement with this plan and has verbalized understanding of return precautions and the need for primary care follow-up in the next 24-72 hours. - Vital Signs Vital signs: Temp Pulse Resp BP Pulse Ox 98.6 F 93 20 101/61 96 01/04/18 13:33 01/04/18 13:33 01/04/18 13:33 01/04/18 13:33 01/04/18 13:33 - Laboratory Result Diagrams: 01/04/18 15:30 01/04/18 15:30 Laboratory results interpreted by me: 01/04/18 01/04/18 01/04/18 15:30 15:30 15:30 Hgb 12.6 L RDW 19.4 H Sodium 145.1 H Carbon Dioxide 32 H BUN 27 H Creatinine 1.36 H Est GFR (Non-Af Amer) 53 L Direct Bilirubin 0.5 H ALT 14 L Creatine Kinase 31 L NT-Pro-B Natriuret Pep 6170 H Discharge - Discharge Clinical Impression: Congestive heart failure Qualifiers: Heart failure type: unspecified Heart failure chronicity: acute on chronic Qualified Code(s): I50.9 - Heart failure, unspecified Condition: Fair Disposition: HOME, SELF-CARE Additional Instructions: You have refused to wait for another test of your heart. You must return for any worsening or concerning symptoms. CHEST PAIN OF UNCLEAR CAUSE: The exact cause of your chest pain isn't clear. Fortunately, there is no evidence of a dangerous medical condition. Further testing may be required to find the source of the pain. Most often, we find that this pain is coming from the chest wall -- the muscles or rib joints in the chest. But chest pain can come from the lung and lung lining, the esophagus, the heart valves or heart lining, and even the stomach or gallbladder. Rest. Eat lightly until the pain is gone. We may prescribe medicine for pain and inflammation. You should call the physician immediately if the pain radiates to the shoulder, jaw or arms; if you start to run a fever or develop a cough; or if you develop shortness of breath, or other new or alarming symptoms. Pleural Effusion You have a pleural effusion. A pleural effusion is fluid in the space between your lung and chest wall. This can be caused by pleurisy (inflammation of the lung lining), pneumonia, heart disease, pulmonary embolism (blood clots in the lung), or chest injury. It may also occur with any condition that results in severe fluid retention, such as kidney or liver failure. Occasionally the effusion is due to tumor or other serious conditions. A pleural effusion may not cause any symptoms at all. But often, there is sharp pain with breathing. A large effusion can make you short of breath. If we know what caused a pleural effusion, there's usually no need for further testing. In these cases, we treat the underlying illness. In mysterious cases, a sample of the fluid can show what caused the effusion. This sample is obtained by putting a needle between the ribs. If the effusion is large enough to cause shortness of breath, we can remove it through the needle. Follow-up is important. Be sure to see the doctor for further care. Call or return if you become very short of breath, have increasing pain, or develop a new fever. ACID REFLUX DISEASE (GERD): Gastro-Esophageal Reflux Disease (GERD) is caused by stomach acid refluxing back up into the esophagus. The valve at the end of the esophagus may be weak. This is common in persons with a hiatal hernia. GERD symptoms can include indigestion, chest pain, heartburn, or food "sticking." Certain foods, alcohol, and aspirin can make GERD worse. Treatment depends on the severity. Usually, antacids or acid-suppressing medicines are used. When the esophagus is acutely inflamed, the physician will often prescribe membrane-protective drugs such as Carafate. Some patients benefit from medication such as Reglan that tightens the valve at the top of the stomach. Avoid those foods that bring on your symptoms. For many people, these foods are coffee, chocolate, onions, garlic, and carbonated drinks. Don't use alcohol, aspirin, caffeine, or tobacco. Don't eat late at night -- within 4 hours of bedtime. Don't over-eat. If necessary, elevate the head of your bed about 4 inches so that stomach acid will not roll up into your esophagus. Call the doctor if you develop severe chest pain, inability to swallow fluids, fever, or worsening symptoms. ANTACID THERAPY: You have been instructed to start antacid therapy. Antacids directly neutralize stomach acid. This is useful for acid irritation of the esophagus, gastritis, and ulcers. You should take two tablespoons of antacid one hour after each meal and three hours after each meal. If you are not eating, take the antacid every two hours. If you are using a concentrate (such as Maalox TC), use only one tablespoon. Many antacids affect the bowels. The most common problem is diarrhea. In this case, a pure aluminum hydroxide antacid (such as AlternaGel) can be substituted for some or all doses. If the problem is constipation, add a teaspoon of Milk of Magnesia to each dose. Call the doctor if you experience continued diarrhea or constipation, or if you develop lightheadedness, bloody stool or vomitus, severe abdominal pain, or black stool. FOLLOW-UP CARE: If you have been referred to a physician for follow-up care, call the physician s office for an appointment as you were instructed or within the next two days. If you experience worsening or a significant change in your symptoms, notify the physician immediately or return to the Emergency Department at any time for re-evaluation. Prescriptions: Benzonatate [Tessalon Perle 100 mg Capsule] 100 mg PO Q8HP PRN #20 cap PRN Reason: Referrals: JACOBO MARTINEZ DO [Primary Care Provider] - Follow up in 3-5 days
[2018-01-04 16:15] LABS: ALANINE AMINOTRANSFERASE 14 U/L (21-72); ALBUMIN 3.9 g/dL (3.5-5.0); ALKALINE PHOSPHATASE 84 U/L (38-126); ANION GAP 10 (5-19); ASPARTATE AMINO TRANSFERASE 25 U/L (17-59); BILIRUBIN,DIRECT 0.5 mg/dL (0.0-0.4); BILIRUBIN,TOTAL 0.6 mg/dL (0.2-1.3); BLOOD UREA NITROGEN 27 mg/dL (7-20); CARBON DIOXIDE 32 mmol/L (22-30); CHLORIDE 103 mmol/L (98-107); CREATINE KINASE 31 U/L (55-170); GLUCOSE 105 mg/dL (75-110); POTASSIUM 4.4 mmol/L (3.6-5.0); SODIUM 145.1 mmol/L (137-145); TOTAL PROTEIN 7.8 g/dL (6.3-8.2)
[2018-01-04 16:16] LABS: ABSOLUTE LYMPHOCYTES# (MANUAL) 1.6 10^3/uL (0.5-4.7); ABSOLUTE MONOCYTES # (MANUAL) 0.7 10^3/uL (0.1-1.4); ABSOLUTE NEUTROPHILS# (MANUAL) 3.1 10^3/uL (1.7-8.2); BASOPHILS % (MANUAL) 0 % (0-2); EOSINOPHILS % (MANUAL) 6 % (0-6); LYMPHOCYTES % (MANUAL) 28 % (13-45); MONOCYTES % (MANUAL) 12 % (3-13); SEGMENTED NEUTROPHILS % (MAN) 54 % (42-78); TOTAL CELLS COUNTED 100
[2018-01-04 16:17] LABS: ANISOCYTOSIS 2+; HYPOCHROMASIA SLIGHT; OVALOCYTES SLIGHT; PLATELET COMMENT ADEQUATE; POIKILOCYTOSIS SLIGHT; POLYCHROMASIA SLIGHT
[2018-01-04] MEDS ORDERED: FUROSEMIDE INJ/PF 40 MG/4 ML SDV IV ONE (16:19)
[2018-01-04 16:25] LABS: CREATINE KINASE MB 1.14 ng/mL (<4.55)
[2018-01-04 16:27] LABS: TROPONIN I 0.037 ng/mL
--- NOTE | 2018-01-04 17:28 | EKG REPORT ---
SEVERITY:- ABNORMAL ECG - SINUS RHYTHM PROBABLE LEFT ATRIAL ABNORMALITY IRBBB AND LPFB LOW VOLTAGE THROUGHOUT : Confirmed by: Carolyn Garsia MD 04-Jan-2018 17:27:43
== END 2018-01-04 19:13 | disposition home or self-care (01) ==
LOC: ER 13:19
DX: I50.9 Heart failure, unspecified (principal); R07.9 Chest pain, unspecified; R12 Heartburn; Z86.73 Personal history of transient ischemic attack (TIA), and cerebral infarction without residual deficits; I25.2 Old myocardial infarction; I10 Essential (primary) hypertension; J44.9 Chronic obstructive pulmonary disease, unspecified; E11.9 Type 2 diabetes mellitus without complications; I25.10 Atherosclerotic heart disease of native coronary artery without angina pectoris
CPT/HCPCS: 93005; 94640 ×2; 99285; 96374; 36415; 82553; 82550; 83690; 85025; 80053; 84484; 83880; 71046; 93010; A9270; J1940; J3490 ×2

== ENCOUNTER 2018-01-14 09:55 | Emergency (ER) | payer MEDICARE ==
--- NOTE | 2018-01-14 10:48 | ER Document Report ---
ED Medical Screen (RME) - General Chief Complaint: Chest Pain Stated Complaint: PACE MAKER ISSUE Mode of Arrival: Wheelchair Information source: Patient, Friend - Caregiver Notes: This is a 62-year-old man with a history of A. fib with RVR, CHF (defibrillator/ pacemaker), CVA (expressive aphasia) who is brought in by his caregiver because the defibrillator alarm went off twice today. Patient states he denies any chest pain or shortness of breath at this time. TRAVEL OUTSIDE OF THE [place] IN LAST 30 DAYS: No - Related Data Allergies/Adverse Reactions: captopril [From Capoten] Allergy (Severe, Verified 01/14/18 09:56) Angioedema atorvastatin calcium [From Lipitor] Allergy (Intermediate, Verified 01/14/18 09: 56) Angioedema clopidogrel [From Plavix] Allergy (Verified 01/14/18 09:56) rosuvastatin [From Crestor] Allergy (Verified 01/14/18 09:56) simvastatin [From Zocor] Allergy (Verified 01/14/18 09:56) Angioedema Past Medical History - Social History Chew tobacco use (# tins/day): No Frequency of alcohol use: None Drug Abuse: None Family history: None - Past Medical History Cardiac Medical History: Reports: Hx Congestive Heart Failure - Systolic with EF of 25-30% as of 2D echo in July 2017, Hx Coronary Artery Disease, Hx Heart Attack - 2008, Hx Hypercholesterolemia, Hx Hypertension Pulmonary Medical History: Reports: Hx Asthma, Hx Bronchitis, Hx COPD, Hx Sleep Apnea Neurological Medical History: Reports: Hx Cerebrovascular Accident - x 2. Denies: Hx Seizures Endocrine Medical History: Reports: Hx Diabetes Mellitus Type 1, Hx Diabetes Mellitus Type 2 Renal/ Medical History: Denies: Hx Peritoneal Dialysis Malignancy Medical History: GI Medical History: Reports: Hx Diverticulitis, Hx Gastroesophageal Reflux Disease Musculoskeltal Medical History: Reports Hx Arthritis, Reports Hx Musculoskeletal Deformity, Reports Hx Musculoskeletal Trauma Psychiatric Medical History: Reports: Hx Anxiety, Hx Post Traumatic Stress Disorder Denies: Hx Depression Infectious Medical History: Past Surgical History: Reports: Hx Abdominal Surgery - for diverticulitis, Hx Bowel Surgery - Colon resection due to diverticulitis, Hx Cardiac Catheterization, Hx Cardiac Surgery - 1984, ICD placement 2015, Hx Coronary Artery Bypass Graft, Hx Coronary Stent - 1984, Hx Thyroid Surgery, Other - AICD - Immunizations Immunizations up to date: Yes Hx Diphtheria, Pertussis, Tetanus Vaccination: Yes History of Influenza Vaccine for 02/2017 - 07/2017 Season: Refused Physical Exam - Vital signs Vitals: Temp Pulse Resp BP Pulse Ox 98.2 F 91 20 118/83 93 01/14/18 10:13 01/14/18 10:13 01/14/18 10:13 01/14/18 10:13 01/14/18 10:13 Course - Vital Signs Vital signs: Temp Pulse Resp BP Pulse Ox 98.2 F 91 20 118/83 93 01/14/18 10:13 01/14/18 10:13 01/14/18 10:13 01/14/18 10:13 01/14/18 10:13 Doctor's Discharge - Discharge Referrals: JACOBO MARTINEZ DO [Primary Care Provider] - Follow up as needed
--- NOTE | 2018-01-14 11:55 | RADIOLOGY REPORT (SQ) ---
EXAM DESCRIPTION: CHEST 2 VIEWS COMPLETED DATE/TIME: 01/14/2018 11:43 am REASON FOR STUDY: cp COMPARISON: 01/04/2018 NUMBER OF VIEWS: Two view TECHNIQUE: Frontal and lateral radiographic images of the chest acquired. LIMITATIONS: None. FINDINGS: LUNGS AND PLEURA: Small pleural effusions bilaterally not significantly changed. Unchange d silhouetting of the left heart border. MEDIASTINUM AND HILAR STRUCTURES: Stable heart size and mediastinal structures. HEART AND VASCULAR STRUCTURES: Stable appearance. SUPPORT DEVICES: Appropriate location without change. BONES: No acute findings. OTHER: No other significant finding. IMPRESSION: Bilateral pleural effusions. No significant change. TECHNICAL DOCUMENTATION: JOB ID: [id number] [employer]- All Rights Reserved Reading location - IP/workstation name: [email or web address]
[2018-01-14 12:57] LABS: MEAN CORPUSCULAR VOLUME 86 fl (80-97)
[2018-01-14 13:07] LABS: ABSOLUTE EOSINOPHILS # (AUTO) 0.2 10^3/uL (0.0-0.6); ABSOLUTE MONOCYTES (AUTO) 0.8 10^3/uL (0.1-1.4); ABSOLUTE NEUT (AUTO) 2.7 10^3/uL (1.7-8.2); BASOPHILS % (AUTO) 0.8 % (0-2); EOSINOPHILS % (AUTO) 3.8 % (0-6); HEMATOCRIT 39.4 % (37.9-51.0); HEMOGLOBIN 12.7 g/dL (13.5-17.0); MEAN CORPUSCULAR HEMOGLOBIN 27.7 pg (27.0-33.4); MEAN CORPUSCULAR HGB CONC 32.3 g/dL (32.0-36.0); MONOCYTES % (AUTO) 17.3 % (3-13); PLATELET COUNT 196 10^3/uL (150-450); RED CELL DISTRIBUTION WIDTH 19.5 % (11.5-14.0); SEGMENTED NEUTROPHILS % (AUTO) 56.1 % (42-78); TOTAL CELLS COUNTED % (AUTO) 100 %; WHITE BLOOD COUNT 4.7 10^3/uL (4.0-10.5)
[2018-01-14 13:14] LABS: ALANINE AMINOTRANSFERASE 17 U/L (21-72); ALBUMIN 3.6 g/dL (3.5-5.0); ALKALINE PHOSPHATASE 66 U/L (38-126); ANION GAP 9 (5-19); ASPARTATE AMINO TRANSFERASE 22 U/L (17-59); BILIRUBIN,DIRECT 0.4 mg/dL (0.0-0.4); BILIRUBIN,TOTAL 0.9 mg/dL (0.2-1.3); BLOOD UREA NITROGEN 21 mg/dL (7-20); CALCIUM 8.9 mg/dL (8.4-10.2); CARBON DIOXIDE 38 mmol/L (22-30); CHLORIDE 102 mmol/L (98-107); GLUCOSE 93 mg/dL (75-110); POTASSIUM 4.5 mmol/L (3.6-5.0); SODIUM 148.8 mmol/L (137-145); TOTAL PROTEIN 7.1 g/dL (6.3-8.2)
--- NOTE | 2018-01-14 13:14 | ER Document Report ---
ED General <AUTUMN LANE - Last Filed: 01/14/18 14:04> - General Mode of Arrival: Wheelchair Information source: Patient TRAVEL OUTSIDE OF THE [place] 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 Patient and family member at bedside states that it beeped once at 0600 and again at 0730. Patient has had no symptoms at all with these beeps. Patient states the defibrillator did not fire. (SELENA SNYDER) - Related Data Allergies/Adverse Reactions: captopril [From Capoten] Allergy (Severe, Verified 01/14/18 09:56) Angioedema atorvastatin calcium [From Lipitor] Allergy (Intermediate, Verified 01/14/18 09: 56) Angioedema clopidogrel [From Plavix] Allergy (Verified 01/14/18 09:56) rosuvastatin [From Crestor] Allergy (Verified 01/14/18 09:56) simvastatin [From Zocor] Allergy (Verified 01/14/18 09:56) Angioedema Past Medical History - General Information source: Patient, Friend - Caregiver - Social History Smoking Status: Former Smoker Chew tobacco use (# tins/day): No Frequency of alcohol use: None Drug Abuse: None Family History: CAD, DM, Hypertension, Thyroid Disfunction Patient has suicidal ideation: No Patient has homicidal ideation: No - Past Medical History Cardiac Medical History: Reports: Hx Congestive Heart Failure - Systolic with EF of 25-30% as of 2D echo in July 2017, Hx Coronary Artery Disease, Hx Heart Attack - 2008, Hx Hypercholesterolemia, Hx Hypertension Pulmonary Medical History: Reports: Hx Asthma, Hx Bronchitis, Hx COPD, Hx Sleep Apnea Neurological Medical History: Reports: Hx Cerebrovascular Accident - x 2. Denies: Hx Seizures Endocrine Medical History: Reports: Hx Diabetes Mellitus Type 1, Hx Diabetes Mellitus Type 2 Renal/ Medical History: Denies: Hx Peritoneal Dialysis Malignancy Medical History: GI Medical History: Reports: Hx Diverticulitis, Hx Gastroesophageal Reflux Disease Musculoskeletal Medical History: Reports Hx Arthritis, Reports Hx Musculoskeletal Deformity, Reports Hx Musculoskeletal Trauma Psychiatric Medical History: Reports: Hx Anxiety, Hx Post Traumatic Stress Disorder Denies: Hx Depression Infectious Medical History: Past Surgical History: Reports: Hx Abdominal Surgery - for diverticulitis, Hx Bowel Surgery - Colon resection due to diverticulitis, Hx Cardiac Catheterization, Hx Cardiac Surgery - 1984, ICD placement 2015, Hx Coronary Artery Bypass Graft, Hx Coronary Stent - 1984, Hx Thyroid Surgery, Other - AICD - Immunizations Immunizations up to date: Yes Hx Diphtheria, Pertussis, Tetanus Vaccination: Yes Hx Pneumococcal Vaccination: 05/26/10 <SELENA SNYDER - Last Filed: 01/14/18 14:13> Review of Systems - Review of Systems Constitutional: No symptoms reported EENT: No symptoms reported Cardiovascular: See HPI, Other - defibrillator "beeped" Respiratory: No symptoms reported Gastrointestinal: No symptoms reported Genitourinary: No symptoms reported Male Genitourinary: No symptoms reported Musculoskeletal: No symptoms reported Skin: No symptoms reported Hematologic/Lymphatic: No symptoms reported Neurological/Psychological: No symptoms reported -: Yes All other systems reviewed and negative <SELENA SNYDER - Last Filed: 01/14/18 14:13> Physical Exam <AUTUMN LANE - Last Filed: 01/14/18 14:04> <SELENA SNYDER - Last Filed: 01/14/18 14:13> - Vital signs Vitals: Temp Pulse Resp BP Pulse Ox 98.2 F 91 20 118/83 93 01/14/18 10:13 01/14/18 10:13 01/14/18 10:13 01/14/18 10:13 01/14/18 10:13 - Notes Notes: Physical Exam: General: Alert, appears well. HEENT: Normocephalic. Atraumatic. PERRL. Extraocular movements intact. Oropharynx clear. Neck: Supple. Non-tender. Respiratory: No respiratory distress. Clear and equal breath sounds bilaterally. Cardiovascular: Regular rate and rhythm. Abdominal: Normal Inspection. Non-tender. No distension. Normal Bowel Sounds. Back: Non-tender. No deformity or step off. Extremities: Moves all four extremities. Upper extremities: Left hand edema dorsally Lower extremities: 1+ pitting edema to bilateral lower extremities Neurological: Baseline cognition. Pressured slurred nearly incomprehensible speech consistent with baseline speech post CVA. Psychological: Normal affect. Normal Mood. Skin: Warm. Dry. Normal color. (SELENA SNYDER) Course - Laboratory Result Diagrams: 01/14/18 12:35 01/14/18 12:35 - Diagnostic Test Radiology reviewed: Image reviewed, Reports reviewed - Bilateral chronic pleural effusions, no change from prior film. - EKG Interpretation by Me EKG shows normal: Sinus rhythm, [place], Intervals, ST-T Waves. abnormal: QRS Complexes - Borderline R-wave progression Rate: Normal - 95 Rhythm: NSR [place]/QRS: RBBB - IRBBB, LPHB/LPFB Voltage: Decreased voltage, Throughout P Waves: LAE When compared to previous EKG there are: No significant change <AUTUMN LANE - Last Filed: 01/14/18 14:04> - Laboratory Result Diagrams: 01/14/18 12:35 01/14/18 12:35 <SELENA SNYDER - Last Filed: 01/14/18 14:13> - Re-evaluation Re-evalutation: 01/14/18 13:44 The AICD was interrogated, and there were no findings recorded since the first week of December. Phone call was made to the rep explaining what the patient and his caregiver described is hearing beats at 6 AM and 7:30 AM, the rep stated whenever they heard it was not the AICD. (AUTUMN LANE) - Vital Signs Vital signs: Temp Pulse Resp BP Pulse Ox 98.2 F 91 29 H 121/88 H 100 01/14/18 10:13 01/14/18 10:13 01/14/18 13:01 01/14/18 13:01 01/14/18 13:01 - Laboratory Laboratory results interpreted by me: 01/14/18 01/14/18 12:35 12:35 Hgb 12.7 L RDW 19.5 H Monocytes % 17.3 H Sodium 148.8 H Carbon Dioxide 38 H BUN 21 H ALT 17 L Discharge <[address]UMN L[address] - Last Filed: 01/14/18 14:04> <SELENA SNYDER - Last Filed: 01/14/18 14:13> - Discharge Clinical Impression: AICD (automatic cardioverter/defibrillator) present Additional Instructions: Interrogation of your AICD did not show any events logged for today. A discussion was had with the [employer] authorization representative, he reviewed the downloaded information from the [facility], and concluded that what ever be you heard , it was not coming from the AICD. Follow-up with your doctor as needed. Referrals: JACOBO MARTINEZ, DO [NO LOCAL MD] - Follow up as needed Scribe Attestation: 01/14/18 13:46 I personally performed the services described in the documentation, reviewed and edited the documentation which was dictated to the scribe in my presence, and it accurately records my words and actions. (AUTUMN LANE) Scribe Documentation - Scribe Written by Hawa:: Hawa Aponte, 01/14/2018 1412 acting as scribe for :: Joanna <SELENA SNYDER - Last Filed: 01/14/18 14:13>
[2018-01-14 13:23] VITALS: BP 121/88
--- NOTE | 2018-01-14 22:13 | EKG REPORT ---
SEVERITY:- ABNORMAL ECG - SINUS RHYTHM PROBABLE LEFT ATRIAL ABNORMALITY IRBBB AND LPFB LOW VOLTAGE THROUGHOUT BORDERLINE R WAVE PROGRESSION, ANTERIOR LEADS : Confirmed by: Pooja Patel 14-Jan-2018 22:13:10
== END 2018-01-14 13:59 | disposition home or self-care (01) ==
LOC: ER 09:55
DX: R07.9 Chest pain, unspecified (principal); I50.9 Heart failure, unspecified; I25.10 Atherosclerotic heart disease of native coronary artery without angina pectoris; Z87.891 Personal history of nicotine dependence; I25.2 Old myocardial infarction; Z86.73 Personal history of transient ischemic attack (TIA), and cerebral infarction without residual deficits; Z95.1 Presence of aortocoronary bypass graft; Z95.810 Presence of automatic (implantable) cardiac defibrillator
CPT/HCPCS: 36415; 71046; 80053; 83735; 85025; 93005; 93010; 99285

== ENCOUNTER 2018-01-19 08:12 | Emergency (ER) | payer MEDICARE ==
--- NOTE | 2018-01-19 08:42 | ER Document Report ---
ED General - General Mode of Arrival: Ambulatory Information source: Patient TRAVEL OUTSIDE OF THE [place] IN LAST 30 DAYS: No <ADRIANE YOUNGER - Last Filed: 01/19/18 10:24> <[address] - Last Filed: 01/19/18 12:04> - General Chief Complaint: Edema Stated Complaint: SWOLLEN LEG Time Seen by Provider: 01/19/18 08:27 Notes: Patient is a 62 year old male with a defibrillator, CHF, CAD, HTN, and a history of DVT and CVA presents to the emergency department with caregiver at bedside complaining of bilateral lower and upper extremity swelling onset 4 days ago as well as shortness of breath. Patient states his shortness of breath has been worsening the last 4 days. He also reports eating some oysters over the weekend. Patient is on 3L of oxygen at home. Patient is currently on Eloquis for prior DVT. Patient was seen and discharged in the ED approximately 5 days ago secondary to defibrillator going off twice. Patient had edema present in his left hand during this visit and given instructions to alleviate this symptom. (ADRIANE YOUNGER) The patient's swelling to his left hand is a little worse than it was when he was seen here 5 days ago. The wrist, forearm and arm are not swollen. He has not been elevating the hand as was recommended 5 days ago. The edema to lower extremities does not appear substantially different to me. The weights recorded 5 days ago and today suggest the patient has a 10 pound weight gain. The patient and his caregiver never figured out where the beeps came from that they heard that prompted his visit here 5 days ago. The patient has been on Lasix in the past, he is not now, takes only Spironolactone for diuresis. He does take Eliquis for prior DVT. Chest x-ray shows stable small bilateral pleural effusions without heart failure. The BUN and CR are higher today than when he was here 5 days ago. The BNP is lower than it was 15 days ago when he was here for heartburn. This would suggest that he is not fluid overloaded at this time. (AUTUMN LANE) - Related Data Allergies/Adverse Reactions: captopril [From Capoten] Allergy (Severe, Verified 01/14/18 09:56) Angioedema atorvastatin calcium [From Lipitor] Allergy (Intermediate, Verified 01/14/18 09: 56) Angioedema clopidogrel [From Plavix] Allergy (Verified 01/14/18 09:56) rosuvastatin [From Crestor] Allergy (Verified 01/14/18 09:56) simvastatin [From Zocor] Allergy (Verified 01/14/18 09:56) Angioedema Past Medical History - General Information source: Patient - Social History Smoking Status: Former Smoker Family History: CAD, DM, Hypertension, Thyroid Disfunction - Past Medical History Cardiac Medical History: Reports: Hx Congestive Heart Failure - Systolic with EF of 25-30% as of 2D echo in July 2017, Hx Coronary Artery Disease, Hx Heart Attack - 2008, Hx Hypercholesterolemia, Hx Hypertension Pulmonary Medical History: Reports: Hx Asthma, Hx Bronchitis, Hx COPD, Hx Sleep Apnea Neurological Medical History: Reports: Hx Cerebrovascular Accident - x 2 Endocrine Medical History: Reports: Hx Diabetes Mellitus Type 2 Renal/ Medical History: Malignancy Medical History: GI Medical History: Reports: Hx Diverticulitis, Hx Gastroesophageal Reflux Disease Musculoskeletal Medical History: Reports Hx Arthritis, Reports Hx Musculoskeletal Deformity, Reports Hx Musculoskeletal Trauma Psychiatric Medical History: Reports: Hx Anxiety, Hx Post Traumatic Stress Disorder Infectious Medical History: Past Surgical History: Reports: Hx Abdominal Surgery - for diverticulitis, Hx Bowel Surgery - Colon resection due to diverticulitis, Hx Cardiac Catheterization, Hx Cardiac Surgery - 1984, ICD placement 2015, Hx Coronary Artery Bypass Graft, Hx Coronary Stent - 1984, Hx Thyroid Surgery, Other - AICD - Immunizations Immunizations up to date: Yes Hx Diphtheria, Pertussis, Tetanus Vaccination: Yes Hx Pneumococcal Vaccination: 05/26/10 <ADRIANE YOUNGER - Last Filed: 01/19/18 10:24> Review of Systems - Review of Systems Constitutional: No symptoms reported EENT: No symptoms reported Cardiovascular: No symptoms reported Respiratory: No symptoms reported, See HPI Gastrointestinal: No symptoms reported Genitourinary: No symptoms reported Male Genitourinary: No symptoms reported Musculoskeletal: See HPI Skin: No symptoms reported Hematologic/Lymphatic: No symptoms reported Neurological/Psychological: No symptoms reported -: Yes All other systems reviewed and negative <ADRIANE YOUNGER - Last Filed: 01/19/18 10:24> Physical Exam <ADRIANE YOUNGER - Last Filed: 01/19/18 10:24> <[address] L[address] - Last Filed: 01/19/18 12:04> - Vital signs Vitals: Temp Pulse Resp BP Pulse Ox 97.8 F 82 20 112/80 88 L 01/19/18 08:18 01/19/18 08:18 01/19/18 08:18 01/19/18 08:18 01/19/18 08:18 - Notes Notes: GENERAL: Alert, interacts well. No acute distress. HEAD: Normocephalic, atraumatic. EYES: Pupils equal, round, and reactive to light. Extraocular movements intact. ENT: Oral mucosa moist, tongue midline. NECK: Full range of motion. Supple. Trachea midline. LUNGS: Clear to auscultation bilaterally, no wheezes, rales, or rhonchi. No respiratory distress. HEART: Regular rate and rhythm. No murmurs, gallops, or rubs. ABDOMEN: Soft, non-tender. Non-distended. Bowel sounds present in all 4 quadrants. EXTREMITIES: Moves all 4 extremities spontaneously. Tight, 1+ pitting edema in the BLE. There is a blister approximately 5mm across on the dorsal aspect of left leg. Pitting edema to the left hand which was present 5 days ago. NEUROLOGICAL: Alert and oriented x3. Pressured, stuttered speech, nearly incomprehensible at baseline due to prior CVA. PSYCH: Normal affect, normal mood. SKIN: Warm, dry. (ADRIANE YOUNGER) Course - Laboratory Result Diagrams: 01/19/18 10:07 01/19/18 10:07 <ADRIANE YOUNGER - Last Filed: 01/19/18 10:24> - Laboratory Result Diagrams: 01/19/18 10:07 01/19/18 10:07 - Diagnostic Test Radiology reviewed: Image reviewed, Reports reviewed - Stable chest x-ray, bilateral pleural effusions, no heart failure. <AUTUMN LANE - Last Filed: 01/19/18 12:04> - Re-evaluation Re-evalutation: 01/19/18 09:51 The nurse was unable to get a saline lock in the patient. Orders were changed to administer the medicine orally. (AUTUMN LANE) - Vital Signs Vital signs: Temp Pulse Resp BP Pulse Ox 97.8 F 82 33 H 127/83 H 100 01/19/18 08:18 01/19/18 08:18 01/19/18 10:01 01/19/18 10:01 01/19/18 10:01 - Laboratory Laboratory results interpreted by me: 01/19/18 01/19/18 01/19/18 10:07 10:07 10:07 Hgb 12.7 L MCHC 31.8 L RDW 19.2 H Monocytes % 15.8 H Sodium 149.3 H Carbon Dioxide 37 H BUN 26 H Creatinine 1.45 H Est GFR ( Amer) 59 L Est GFR (Non-Af Amer) 49 L Direct Bilirubin 0.5 H ALT 13 L Creatine Kinase 33 L NT-Pro-B Natriuret Pep 4950 H Discharge <ADRIANE YOUNGER - Last Filed: 01/19/18 10:24> <[address] - Last Filed: 01/19/18 12:04> - Discharge Clinical Impression: Peripheral edema Condition: Stable Disposition: HOME, SELF-CARE Additional Instructions: Edema, Peripheral You have swelling in your legs. This is called peripheral edema. It can be caused by "leaky capillaries," inflammation, disease of the leg veins, or excess salt and water in your body. Edema may be a sign of heart, kidney, or liver disease. A medical evaluation can determine if there is a serious underlying cause for your edema. Avoid prolonged standing. If you must sit for a long time, occasionally get up and walk around or elevate your legs. Support stockings can be helpful in limiting swelling. Often diuretic or water pills are used to remove excess salt and water from your body. Call the doctor or return if you develop increased swelling, pain, or redness, shortness of breath, chest pain, or any other significant change. Continue your regular medications. Elevate your left hand and your feet as much as possible. Keep the blistered area on your leg clean and dressed. Follow-up with your medical doctor this week for further evaluation of your swelling problem. RETURN TO THE EMERGENCY ROOM IF ANY NEW OR WORSENING SYMPTOMS. Elviraibe Attestation: 01/19/18 09:26 I personally performed the services described in the documentation, reviewed and edited the documentation which was dictated to the scribe in my presence, and it accurately records my words and actions. (AUTUMN LANE) Scribe Documentation - Scribe Written by Hawa:: Hawa Sosa, 01/19/2018 08:50 acting as scribe for :: Joanna <ADRIANE YOUNGER - Last Filed: 01/19/18 10:24>
[2018-01-19] MEDS ORDERED: FUROSEMIDE INJ/PF 100 MG/10 ML SDV IV ONE (08:44)
[2018-01-19] MEDS ORDERED: ACETAMINOPHEN 325 MG TABLET PO ONE (09:26)
[2018-01-19] MEDS ORDERED: FUROSEMIDE 80 MG TABLET PO ONE (09:50)
[2018-01-19 10:30] LABS: ABSOLUTE EOSINOPHILS # (AUTO) 0.1 10^3/uL (0.0-0.6); ABSOLUTE LYMPHOCYTES (AUTO) 0.9 10^3/uL (0.5-4.7); ABSOLUTE MONOCYTES (AUTO) 0.8 10^3/uL (0.1-1.4); BASOPHILS % (AUTO) 0.8 % (0-2); EOSINOPHILS % (AUTO) 2.4 % (0-6); HEMATOCRIT 39.8 % (37.9-51.0); HEMOGLOBIN 12.7 g/dL (13.5-17.0); LYMPHOCYTES % (AUTO) 18.5 % (13-45); MEAN CORPUSCULAR HEMOGLOBIN 27.7 pg (27.0-33.4); MEAN CORPUSCULAR HGB CONC 31.8 g/dL (32.0-36.0); MEAN CORPUSCULAR VOLUME 87 fl (80-97); MONOCYTES % (AUTO) 15.8 % (3-13); PLATELET COUNT 150 10^3/uL (150-450); RED BLOOD COUNT 4.56 10^6/uL (4.35-5.55); RED CELL DISTRIBUTION WIDTH 19.2 % (11.5-14.0); SEGMENTED NEUTROPHILS % (AUTO) 62.5 % (42-78); TOTAL CELLS COUNTED % (AUTO) 100 %; WHITE BLOOD COUNT 4.8 10^3/uL (4.0-10.5)
--- NOTE | 2018-01-19 10:42 | RADIOLOGY REPORT (SQ) ---
EXAM DESCRIPTION: CHEST 2 VIEWS COMPLETED DATE/TIME: 01/19/2018 10:33 am REASON FOR STUDY: Short of breath, peripheral edema COMPARISON: 01/14/2018 EXAM PARAMETERS: NUMBER OF VIEWS: two views TECHNIQUE: Digital Frontal and Lateral radiographic views of the chest acquired. RADIATION DOSE: NA LIMITATIONS: none FINDINGS: LUNGS AND PLEURA: Stable small bilateral pleural effusions. No pneumothorax. MEDIASTINUM AND HILAR STRUCTURES: Stable appearance. HEART AND VASCULAR STRUCTURES: Cardiomegaly, unchanged finding. BONES: No acute findings. HARDWARE: Cardiac pacemaker, stable. None in the chest. OTHER: Surgical metallic clips at the base of the neck on the right. IMPRESSION: 1 Stable examination of the chest since the prior study dated 01/14/2018. TECHNICAL DOCUMENTATION: JOB ID: [id number] [employer]- All Rights Reserved Reading location - IP/workstation name: [email or web address]
[2018-01-19 10:55] LABS: ALANINE AMINOTRANSFERASE 13 U/L (21-72); ALBUMIN 3.6 g/dL (3.5-5.0); ALKALINE PHOSPHATASE 62 U/L (38-126); ANION GAP 9 (5-19); ASPARTATE AMINO TRANSFERASE 18 U/L (17-59); BILIRUBIN,DIRECT 0.5 mg/dL (0.0-0.4); BILIRUBIN,TOTAL 0.8 mg/dL (0.2-1.3); BLOOD UREA NITROGEN 26 mg/dL (7-20); CARBON DIOXIDE 37 mmol/L (22-30); CHLORIDE 103 mmol/L (98-107); CREATINE KINASE 33 U/L (55-170); GLUCOSE 96 mg/dL (75-110); POTASSIUM 4.8 mmol/L (3.6-5.0); SODIUM 149.3 mmol/L (137-145); TOTAL PROTEIN 6.8 g/dL (6.3-8.2)
[2018-01-19 10:59] VITALS: BP 127/83
[2018-01-19 11:02] LABS: CREATINE KINASE MB 1.73 ng/mL (<4.55)
[2018-01-19 11:08] LABS: TROPONIN I 0.068 ng/mL
[2018-01-19 12:20] LABS: APPEARANCE,URINE CLEAR; BILIRUBIN,URINE NEGATIVE (NEGATIVE); COLOR,URINE YELLOW; GLUCOSE, URINE NEGATIVE (NEGATIVE); KETONES,URINE NEGATIVE (NEGATIVE); LEUKOCYTE ESTERASE,URINE NEGATIVE (NEGATIVE); NITRITE,URINE NEGATIVE (NEGATIVE); PROTEIN,URINE 100 mg/dL (NEGATIVE); URINE SPECIFIC GRAVITY 1.018; UROBILINOGEN,URINE NEGATIVE mg/dL (<2.0)
== END 2018-01-19 13:25 | disposition home or self-care (01) ==
LOC: ER 08:12
DX: R60.9 Edema, unspecified (principal); I50.9 Heart failure, unspecified; I25.10 Atherosclerotic heart disease of native coronary artery without angina pectoris; I11.0 Hypertensive heart disease with heart failure; Z86.718 Personal history of other venous thrombosis and embolism; Z79.02 Long term (current) use of antithrombotics/antiplatelets; Z95.810 Presence of automatic (implantable) cardiac defibrillator
CPT/HCPCS: 99285; 36415; 82553; 82550; 80162; 85025; 80053; 81001; 84484; 83880; 71046; A9270 ×2; J3490

== ENCOUNTER 2018-01-27 09:30 | Emergency (ER) | payer MEDICARE ==
--- NOTE | 2018-01-27 09:48 | ER Document Report ---
ED Medical Screen (RME) - General Chief Complaint: Chest Pain Stated Complaint: CHEST PAIN Time Seen by Provider: 01/27/18 09:44 Notes: Patient is a 62-year-old male with CAD, CHF that presents to the emergency department for chief complaint of chest pain and shortness of breath that started last night. ROS: GENERAL: Denies fever or chills CV: Positive for chest pain PHYSICAL EXAMINATION: Vital signs reviewed. GENERAL: Well-appearing, well-nourished and in no acute distress. HEAD: Atraumatic, normocephalic. EYES: Pupils equal round extraocular movements intact, conjunctiva are normal. ENT: Nares patent NECK: Normal range of motion CV: Heart regular rate and rhythm LUNGS: No respiratory distress, lungs clear to auscultation Musculoskeletal: Normal range of motion NEUROLOGICAL: Normal speech PSYCH: Normal mood, normal affect. MDM: Patient seen and examined for rapid initial assessment. Vital signs reviewed. A comprehensive ED assessment and evaluation of the patient, analysis of test results and completion of the medical decision making process will be conducted by additional ED providers. *Note is created using voice recognition software and may contain spelling, syntax or grammatical errors. TRAVEL OUTSIDE OF THE [place] IN LAST 30 DAYS: No - Related Data Allergies/Adverse Reactions: captopril [From Capoten] Allergy (Severe, Verified 01/27/18 09:52) Angioedema atorvastatin calcium [From Lipitor] Allergy (Intermediate, Verified 01/27/18 09: 52) Angioedema clopidogrel [From Plavix] Allergy (Verified 01/27/18 09:52) rosuvastatin [From Crestor] Allergy (Verified 01/27/18 09:52) simvastatin [From Zocor] Allergy (Verified 01/27/18 09:52) Angioedema Past Medical History - Social History Family history: None - Past Medical History Cardiac Medical History: Reports: Hx Congestive Heart Failure - Systolic with EF of 25-30% as of 2D echo in July 2017, Hx Coronary Artery Disease, Hx Heart Attack - 2008, Hx Hypercholesterolemia, Hx Hypertension Pulmonary Medical History: Reports: Hx Asthma, Hx Bronchitis, Hx COPD, Hx Sleep Apnea Neurological Medical History: Reports: Hx Cerebrovascular Accident - x 2. Denies: Hx Seizures Endocrine Medical History: Reports: Hx Diabetes Mellitus Type 1, Hx Diabetes Mellitus Type 2 Renal/ Medical History: Denies: Hx Peritoneal Dialysis Malignancy Medical History: GI Medical History: Reports: Hx Diverticulitis, Hx Gastroesophageal Reflux Disease Musculoskeltal Medical History: Reports Hx Arthritis, Reports Hx Musculoskeletal Deformity, Reports Hx Musculoskeletal Trauma Psychiatric Medical History: Reports: Hx Anxiety, Hx Post Traumatic Stress Disorder Denies: Hx Depression Infectious Medical History: Past Surgical History: Reports: Hx Abdominal Surgery - for diverticulitis, Hx Bowel Surgery - Colon resection due to diverticulitis, Hx Cardiac Catheterization, Hx Cardiac Surgery - 1984, ICD placement 2015, Hx Coronary Artery Bypass Graft, Hx Coronary Stent - 1984, Hx Thyroid Surgery, Other - AICD - Immunizations Immunizations up to date: Yes Hx Diphtheria, Pertussis, Tetanus Vaccination: Yes History of Influenza Vaccine for 02/2017 - 07/2017 Season: Refused Review of Systems - Review of Systems Notes: Dictated Physical Exam - Vital signs Vitals: Temp Pulse Resp BP Pulse Ox 97.9 F 92 20 145/95 H 98 01/27/18 09:46 01/27/18 09:46 01/27/18 09:46 01/27/18 09:46 01/27/18 09:46 - Notes Notes: Dictated Course - Vital Signs Vital signs: Temp Pulse Resp BP Pulse Ox 97.9 F 92 20 145/95 H 98 01/27/18 09:46 01/27/18 09:46 01/27/18 09:46 01/27/18 09:46 01/27/18 09:46
[2018-01-27 10:35] LABS: ABSOLUTE EOSINOPHILS # (AUTO) 0.1 10^3/uL (0.0-0.6); ABSOLUTE MONOCYTES (AUTO) 0.9 10^3/uL (0.1-1.4); ABSOLUTE NEUT (AUTO) 2.8 10^3/uL (1.7-8.2); BASOPHILS % (AUTO) 0.9 % (0-2); HEMOGLOBIN 13.9 g/dL (13.5-17.0); LYMPHOCYTES % (AUTO) 20.8 % (13-45); MEAN CORPUSCULAR HEMOGLOBIN 28.2 pg (27.0-33.4); MEAN CORPUSCULAR HGB CONC 32.3 g/dL (32.0-36.0); MEAN CORPUSCULAR VOLUME 87 fl (80-97); MONOCYTES % (AUTO) 17.6 % (3-13); PLATELET COUNT 155 10^3/uL (150-450); RED BLOOD COUNT 4.93 10^6/uL (4.35-5.55); RED CELL DISTRIBUTION WIDTH 17.9 % (11.5-14.0); SEGMENTED NEUTROPHILS % (AUTO) 57.7 % (42-78); TOTAL CELLS COUNTED % (AUTO) 100 %; WHITE BLOOD COUNT 4.9 10^3/uL (4.0-10.5)
--- NOTE | 2018-01-27 10:45 | RADIOLOGY REPORT (SQ) ---
EXAM DESCRIPTION: CHEST SINGLE VIEW COMPLETED DATE/TIME: 01/27/2018 10:33 am REASON FOR STUDY: chest pain, shortness of breath COMPARISON: CT angio chest 12/30/2017 Chest films 01/14/2018, 01/19/2018, 01/22/2018 EXAM PARAMETERS: NUMBER OF VIEWS: One view. TECHNIQUE: Single frontal radiographic view of the chest acquired. RADIATION DOSE: NA LIMITATIONS: None. FINDINGS: LUNGS AND PLEURA: Moderate bilateral pleural effusions are suspected, with hazy opacity ov er the right and left lower chest. There is bibasilar airspace disease likely atelectasis. No pneumothorax. MEDIASTINUM AND HILAR STRUCTURES: No masses. Contour normal. HEART AND VASCULAR STRUCTURES: Marked cardiomegaly BONES: No acute findings. HARDWARE: Unchanged left single lead pacemaker OTHER: No other significant finding. IMPRESSION: Moderate bilateral pleural effusions with bibasilar atelectasis. Massive cardiomegaly. Left-sided single lead pacemaker TECHNICAL DOCUMENTATION: JOB ID: [id number] [employer]- All Rights Reserved Reading location - IP/workstation name: [email or web address]
[2018-01-27 11:02] LABS: CREATINE KINASE MB 3.29 ng/mL (<4.55)
[2018-01-27 11:16] LABS: TROPONIN I 0.085 ng/mL
--- NOTE | 2018-01-27 11:44 | ER Document Report ---
ED General - General Mode of Arrival: Ambulatory Information source: Patient TRAVEL OUTSIDE OF THE [place] IN LAST 30 DAYS: No <SELENA SNYDER - Last Filed: 01/27/18 14:05> <AUTUMN LANE - Last Filed: 01/27/18 14:50> - General Chief Complaint: Chest Pain Stated Complaint: CHEST PAIN Time Seen by Provider: 01/27/18 09:44 Notes: 62-year-old male who presents to the emergency department today with complaints of chest pain, shortness of breath, and constipation. Patient is difficult to understand which is baseline for him secondary to a CVA in the past. Patient does mention that he has not had a bowel movement in 2 days. Patient states his stomach is big. (SELENA SNYDER) - Related Data Allergies/Adverse Reactions: captopril [From Capoten] Allergy (Severe, Verified 01/27/18 09:52) Angioedema atorvastatin calcium [From Lipitor] Allergy (Intermediate, Verified 01/27/18 09: 52) Angioedema clopidogrel [From Plavix] Allergy (Verified 01/27/18 09:52) rosuvastatin [From Crestor] Allergy (Verified 01/27/18 09:52) simvastatin [From Zocor] Allergy (Verified 01/27/18 09:52) Angioedema Past Medical History - General Information source: Patient - Social History Smoking Status: Never Smoker Cigarette use (# per day): No Chew tobacco use (# tins/day): No Frequency of alcohol use: None Drug Abuse: None Lives with: Family Family History: CAD, DM, Hypertension, Thyroid Disfunction Patient has suicidal ideation: No Patient has homicidal ideation: No - Past Medical History Cardiac Medical History: Reports: Hx Congestive Heart Failure - Systolic with EF of 25-30% as of 2D echo in July 2017, Hx Coronary Artery Disease, Hx Heart Attack - 2009, Hx Hypercholesterolemia, Hx Hypertension Pulmonary Medical History: Reports: Hx Asthma, Hx Bronchitis, Hx COPD, Hx Sleep Apnea Neurological Medical History: Reports: Hx Cerebrovascular Accident - x 2. Denies: Hx Seizures Endocrine Medical History: Reports: Hx Diabetes Mellitus Type 1, Hx Diabetes Mellitus Type 2 Renal/ Medical History: Denies: Hx Peritoneal Dialysis Malignancy Medical History: GI Medical History: Reports: Hx Diverticulitis, Hx Gastroesophageal Reflux Disease Musculoskeletal Medical History: Reports Hx Arthritis, Reports Hx Musculoskeletal Deformity, Reports Hx Musculoskeletal Trauma Psychiatric Medical History: Reports: Hx Anxiety, Hx Post Traumatic Stress Disorder Denies: Hx Depression Infectious Medical History: Past Surgical History: Reports: Hx Abdominal Surgery - for diverticulitis, Hx Bowel Surgery - Colon resection due to diverticulitis, Hx Cardiac Catheterization, Hx Cardiac Surgery - 1984, ICD placement 2015, Hx Coronary Artery Bypass Graft, Hx Coronary Stent - 1984, Hx Thyroid Surgery, Other - AICD - Immunizations Immunizations up to date: Yes Hx Diphtheria, Pertussis, Tetanus Vaccination: Yes Hx Pneumococcal Vaccination: 05/26/10 <SELENA SNYDER - Last Filed: 01/27/18 14:05> Review of Systems - Review of Systems Constitutional: No symptoms reported EENT: No symptoms reported Cardiovascular: See HPI, Chest pain Respiratory: See HPI, Short of breath Gastrointestinal: See HPI, Constipation Genitourinary: No symptoms reported Male Genitourinary: No symptoms reported Musculoskeletal: No symptoms reported Skin: No symptoms reported Hematologic/Lymphatic: No symptoms reported Neurological/Psychological: No symptoms reported -: Yes All other systems reviewed and negative <SELENA SNYDER - Last Filed: 01/27/18 14:05> Physical Exam <SELENA SNYDER - Last Filed: 01/27/18 14:05> <AUTUMN LANE - Last Filed: 01/27/18 14:50> - Vital signs Vitals: Pulse Ox 98 01/27/18 09:44 - Notes Notes: Physical Exam: General: Alert, appears well. HEENT: Normocephalic. Atraumatic. PERRL. Extraocular movements intact. Oropharynx clear. Neck: Supple. Non-tender. Respiratory: No respiratory distress. Clear and equal breath sounds bilaterally. Cardiovascular: Regular rate and rhythm. Abdominal: Obese. Non-tender. No distension. Normal Bowel Sounds. Back: Non-tender. No deformity or step off. Extremities: Moves all four extremities. Upper extremities: Normal inspection. Normal ROM. Lower extremities: Normal inspection. No edema. Normal ROM. Neurological: Baseline cognition. Pressure slurred in her and calm principal speech consistent with baseline speech post CVA. Psychological: Normal affect. Normal Mood. Skin: Warm. Dry. Normal color. (SELENA SNYDER) Course - Laboratory Result Diagrams: 01/27/18 10:05 01/27/18 12:40 <SELENA SNYDER - Last Filed: 01/27/18 14:05> - Laboratory Result Diagrams: 01/27/18 10:05 01/27/18 12:40 - Diagnostic Test Radiology reviewed: Image reviewed, Reports reviewed - Chest x-ray shows massive cardiomegaly with bilateral pleural effusions, does not appear changed from previous x-rays. KUB is unremarkable. - EKG Interpretation by Me EKG shows normal: Sinus rhythm, [place], Intervals, QRS Complexes, ST-T Waves Rate: Normal - 92 Rhythm: NSR Voltage: Decreased voltage, Throughout. No: Consistant with LVH - RVH When compared to previous EKG there are: No significant change <AUTUMN LANE - Last Filed: 01/27/18 14:50> - Re-evaluation Re-evalutation: 01/27/18 14:47 The patient's lab work is not unlike most of his visits. The serum CO2 is elevated at 43, it has been at 41 recently. He does not appear to be in any distress at all today, he is not anymore short of breath than he usually is, and his primary complaint was really related to his morbidly obese distended abdomen with him complaining about it being tight. He also complained about not being able to do #2, indicating that he was constipated. Chest x-ray shows a chronic massive cardiomegaly and a chronic bilateral pleural effusions that have not changed in the last several weeks. (AUTUMN LANE) - Vital Signs Vital signs: Temp Pulse Resp BP Pulse Ox 97.9 F 92 20 145/95 H 98 01/27/18 09:46 01/27/18 09:46 01/27/18 09:46 01/27/18 09:46 01/27/18 09:46 - Laboratory Laboratory results interpreted by me: 01/27/18 01/27/18 10:05 12:40 RDW 17.9 H Monocytes % 17.6 H Chloride 94 L Carbon Dioxide 43 H* Direct Bilirubin 0.5 H ALT 20 L Creatine Kinase 31 L Discharge <SELENA SNYDER - Last Filed: 01/27/18 14:05> <AUTUMN LANE - Last Filed: 01/27/18 14:50> - Discharge Clinical Impression: Chronic shortness of breath, History of chronic carbon dioxide retention, Chronic chest pain COPD (chronic obstructive pulmonary disease) Qualifiers: COPD type: unspecified COPD Qualified Code(s): J44.9 - Chronic obstructive pulmonary disease, unspecified Abdominal pain Qualifiers: Abdominal location: generalized Qualified Code(s): R10.84 - Generalized abdominal pain Constipation Qualifiers: Constipation type: unspecified constipation type Qualified Code(s): K59.00 - Constipation, unspecified High blood pressure Qualifiers: Hypertension type: essential hypertension Qualified Code(s): I10 - Essential ( primary) hypertension Condition: Stable Disposition: HOME, SELF-CARE Additional Instructions: Continue all of your regular medications. Drink the bottle of mag citrate that was provided to you on discharge today. Start taking MiraLAX every day for the next week or more to be sure your bowels are moving well. Follow-up with your primary care provider in the office if you are not getting relief from your constipation type symptoms. RETURN TO THE EMERGENCY ROOM IF ANY NEW OR WORSENING SYMPTOMS. Scribe Attestation: 01/27/18 12:46 I personally performed the services described in the documentation, reviewed and edited the documentation which was dictated to the scribe in my presence, and it accurately records my words and actions. (AUTUMN LANE) Scribe Documentation - Scribe Written by Hawa:: Hawa Aponte, 01/27/2018 1409 acting as scribe for :: Joanna <SELENA SNYDER - Last Filed: 01/27/18 14:05>
--- NOTE | 2018-01-27 12:44 | EKG REPORT ---
SEVERITY:- ABNORMAL ECG - SINUS RHYTHM LOW VOLTAGE THROUGHOUT CONSIDER RIGHT VENTRICULAR HYPERTROPHY BORDERLINE R WAVE PROGRESSION, ANTERIOR LEADS BORDERLINE T ABNORMALITIES, INFERIOR LEADS : Confirmed by: Zac Brandon MD 27-Jan-2018 12:43:02
[2018-01-27 13:16] LABS: ALANINE AMINOTRANSFERASE 20 U/L (21-72); ALBUMIN 3.7 g/dL (3.5-5.0); ALKALINE PHOSPHATASE 54 U/L (38-126); ASPARTATE AMINO TRANSFERASE 25 U/L (17-59); BILIRUBIN,DIRECT 0.5 mg/dL (0.0-0.4); BILIRUBIN,TOTAL 1.2 mg/dL (0.2-1.3); BLOOD UREA NITROGEN 20 mg/dL (7-20); CALCIUM 8.8 mg/dL (8.4-10.2); CHLORIDE 94 mmol/L (98-107); CREATINE KINASE 31 U/L (55-170); GLUCOSE 88 mg/dL (75-110); POTASSIUM 4.3 mmol/L (3.6-5.0); SODIUM 143.8 mmol/L (137-145); TOTAL PROTEIN 6.8 g/dL (6.3-8.2)
--- NOTE | 2018-01-27 13:16 | RADIOLOGY REPORT (SQ) ---
EXAM DESCRIPTION: KUB/ABDOMEN (SINGLE VIEW) COMPLETED DATE/TIME: 01/27/2018 1:02 pm REASON FOR STUDY: Abdominal pain, bloating, constipation COMPARISON: None. NUMBER OF VIEWS: One view. TECHNIQUE: Supine radiographic image of the abdomen acquired. LIMITATIONS: None. FINDINGS: BOWEL GAS PATTERN: Normal bowel gas pattern. No dilated loops. CALCIFICATIONS: No suspicious calcifications. SOFT TISSUES: No gross mass or suggestion of organomegaly. HARDWARE: None in the abdomen. BONES: No acute fracture. No worrisome bone lesions. OTHER: No other significant finding. IMPRESSION: NO RADIOGRAPHIC EVIDENCE FOR ACUTE ABDOMINAL DISEASE. TECHNICAL DOCUMENTATION: JOB ID: [id number] [employer]- All Rights Reserved Reading location - IP/workstation name: [email or web address]
[2018-01-27 13:28] LABS: ANION GAP 7 (5-19)
[2018-01-27 13:30] LABS: CARBON DIOXIDE 43 mmol/L (22-30)
[2018-01-27] MEDS ORDERED: MAGNESIUM CITRATE 296 ML BOTTLE PO ONE (14:50)
[2018-01-27 15:43] VITALS: BP 143/91
== END 2018-01-27 15:00 | disposition home or self-care (01) ==
LOC: ER 09:30
DX: K59.00 Constipation, unspecified (principal); I11.9 Hypertensive heart disease without heart failure; J90 Pleural effusion, not elsewhere classified; R07.9 Chest pain, unspecified; G89.29 Other chronic pain; R06.02 Shortness of breath; R10.84 Generalized abdominal pain; E11.9 Type 2 diabetes mellitus without complications; I25.10 Atherosclerotic heart disease of native coronary artery without angina pectoris; I25.2 Old myocardial infarction; J44.9 Chronic obstructive pulmonary disease, unspecified; Z90.49 Acquired absence of other specified parts of digestive tract; Z95.810 Presence of automatic (implantable) cardiac defibrillator; Z88.8 Allergy status to other drugs, medicaments and biological substances; I69.328 Other speech and language deficits following cerebral infarction
CPT/HCPCS: 93005; 99285; 36415; 82553; 82550; 85025; 80053; 84484; 71045; 74018; 93010; J3490

== ENCOUNTER 2018-01-29 08:44 | Emergency (ER) | payer OTHER, MEDICARE ==
--- NOTE | 2018-01-29 09:48 | ER Document Report ---
ED Medical Screen (RME) - General Stated Complaint: HEADACHE NAUSEA Time Seen by Provider: 01/29/18 09:47 Notes: Patient says he is here because of nausea, without vomiting, and abdominal pain and chest pain which began about 230 this morning. Patient was recently in the hospital for chest pains. He is a very difficult historian because of speech problems secondary to old stroke. TRAVEL OUTSIDE OF THE [place] IN LAST 30 DAYS: No - Related Data Allergies/Adverse Reactions: captopril [From Capoten] Allergy (Severe, Verified 01/27/18 09:52) Angioedema atorvastatin calcium [From Lipitor] Allergy (Intermediate, Verified 01/27/18 09: 52) Angioedema clopidogrel [From Plavix] Allergy (Verified 01/27/18 09:52) rosuvastatin [From Crestor] Allergy (Verified 01/27/18 09:52) simvastatin [From Zocor] Allergy (Verified 01/27/18 09:52) Angioedema Past Medical History - Social History Family history: None - Past Medical History Cardiac Medical History: Reports: Hx Congestive Heart Failure - Systolic with EF of 25-30% as of 2D echo in July 2017, Hx Coronary Artery Disease, Hx Heart Attack - 2008, Hx Hypercholesterolemia, Hx Hypertension Pulmonary Medical History: Reports: Hx Asthma, Hx Bronchitis, Hx COPD, Hx Sleep Apnea Neurological Medical History: Reports: Hx Cerebrovascular Accident - x 2. Denies: Hx Seizures Endocrine Medical History: Reports: Hx Diabetes Mellitus Type 1, Hx Diabetes Mellitus Type 2 Renal/ Medical History: Denies: Hx Peritoneal Dialysis Malignancy Medical History: GI Medical History: Reports: Hx Diverticulitis, Hx Gastroesophageal Reflux Disease Musculoskeltal Medical History: Reports Hx Arthritis, Reports Hx Musculoskeletal Deformity, Reports Hx Musculoskeletal Trauma Psychiatric Medical History: Reports: Hx Anxiety, Hx Post Traumatic Stress Disorder Denies: Hx Depression Infectious Medical History: Past Surgical History: Reports: Hx Abdominal Surgery - for diverticulitis, Hx Bowel Surgery - Colon resection due to diverticulitis, Hx Cardiac Catheterization, Hx Cardiac Surgery - 1984, ICD placement 2015, Hx Coronary Artery Bypass Graft, Hx Coronary Stent - 1984, Hx Thyroid Surgery, Other - AICD - Immunizations Immunizations up to date: Yes Hx Diphtheria, Pertussis, Tetanus Vaccination: Yes History of Influenza Vaccine for 02/2017 - 07/2017 Season: Refused
[2018-01-29 11:13] LABS: ABSOLUTE EOSINOPHILS # (AUTO) 0.2 10^3/uL (0.0-0.6); ABSOLUTE LYMPHOCYTES (AUTO) 0.9 10^3/uL (0.5-4.7); ABSOLUTE MONOCYTES (AUTO) 0.8 10^3/uL (0.1-1.4); ABSOLUTE NEUT (AUTO) 3.1 10^3/uL (1.7-8.2); BASOPHILS % (AUTO) 0.6 % (0-2); EOSINOPHILS % (AUTO) 4.7 % (0-6); HEMATOCRIT 41.1 % (37.9-51.0); LYMPHOCYTES % (AUTO) 17.6 % (13-45); MEAN CORPUSCULAR HEMOGLOBIN 27.5 pg (27.0-33.4); MEAN CORPUSCULAR HGB CONC 31.7 g/dL (32.0-36.0); MEAN CORPUSCULAR VOLUME 87 fl (80-97); MONOCYTES % (AUTO) 15.7 % (3-13); PLATELET COUNT 170 10^3/uL (150-450); RED BLOOD COUNT 4.72 10^6/uL (4.35-5.55); RED CELL DISTRIBUTION WIDTH 17.5 % (11.5-14.0); SEGMENTED NEUTROPHILS % (AUTO) 61.4 % (42-78); TOTAL CELLS COUNTED % (AUTO) 100 %
--- NOTE | 2018-01-29 11:16 | RADIOLOGY REPORT (SQ) ---
EXAM DESCRIPTION: CHEST 2 VIEWS COMPLETED DATE/TIME: 01/29/2018 11:03 am REASON FOR STUDY: Chest pain COMPARISON: CT chest 12/30/2017 2 view Chest films 01/14/2018, 01/19/2018 AP chest 01/22/2018, 01/27/2018 EXAM PARAMETERS: NUMBER OF VIEWS: two views TECHNIQUE: Digital Frontal and Lateral radiographic views of the chest acquired. RADIATION DOSE: NA LIMITATIONS: none FINDINGS: LUNGS AND PLEURA: Bilateral moderate pleural effusions are present, unchanged. There is airspace disease in the right middle and lower lobe and left lower lobe, atelectasis favored over pneumonia. This is unchanged. No pneumothorax. MEDIASTINUM AND HILAR STRUCTURES: No masses or contour abnormalities. HEART AND VASCULAR STRUCTURES: Stable massive cardiomegaly BONES: Unchanged left-sided single lead pacemaker HARDWARE: None in the chest. OTHER: No other significant finding. IMPRESSION: Stable bilateral pleural effusions, bibasilar airspace disease and massive cardiomegaly TECHNICAL DOCUMENTATION: JOB ID: [id number] [employer]- All Rights Reserved Reading location - IP/workstation name: [email or web address]
--- NOTE | 2018-01-29 11:28 | ER Document Report ---
ED General - General Stated Complaint: HEADACHE NAUSEA Time Seen by Provider: 01/29/18 09:47 Notes: 62-year-old -[place] male history of stroke urgency department for evaluation of constipation and CHF. Patient states that he has increased fluid on his legs. Has not had a bowel movement in several days. TRAVEL OUTSIDE OF THE [place] IN LAST 30 DAYS: No - HPI Onset/Duration: Gradual Quality of pain: Achy Severity: Mild Pain Level: 1 - Related Data Allergies/Adverse Reactions: captopril [From Capoten] Allergy (Severe, Verified 01/27/18 09:52) Angioedema atorvastatin calcium [From Lipitor] Allergy (Intermediate, Verified 01/27/18 09: 52) Angioedema clopidogrel [From Plavix] Allergy (Verified 01/27/18 09:52) rosuvastatin [From Crestor] Allergy (Verified 01/27/18 09:52) simvastatin [From Zocor] Allergy (Verified 01/27/18 09:52) Angioedema Past Medical History - General Information source: Patient, [facility] Records - Social History Smoking Status: Former Smoker Frequency of alcohol use: None Drug Abuse: None Lives with: Alone Family History: CAD, DM, Hypertension, Thyroid Disfunction - Past Medical History Cardiac Medical History: Reports: Hx Congestive Heart Failure - Systolic with EF of 25-30% as of 2D echo in July 2017, Hx Coronary Artery Disease, Hx Heart Attack - 2008, Hx Hypercholesterolemia, Hx Hypertension Pulmonary Medical History: Reports: Hx Asthma, Hx Bronchitis, Hx COPD, Hx Sleep Apnea Neurological Medical History: Reports: Hx Cerebrovascular Accident - x 2. Denies: Hx Seizures Endocrine Medical History: Reports: Hx Diabetes Mellitus Type 1, Hx Diabetes Mellitus Type 2 Renal/ Medical History: Denies: Hx Peritoneal Dialysis Malignancy Medical History: GI Medical History: Reports: Hx Diverticulitis, Hx Gastroesophageal Reflux Disease Musculoskeletal Medical History: Reports Hx Arthritis, Reports Hx Musculoskeletal Deformity, Reports Hx Musculoskeletal Trauma Psychiatric Medical History: Reports: Hx Anxiety, Hx Post Traumatic Stress Disorder Denies: Hx Depression Infectious Medical History: Past Surgical History: Reports: Hx Abdominal Surgery - for diverticulitis, Hx Bowel Surgery - Colon resection due to diverticulitis, Hx Cardiac Catheterization, Hx Cardiac Surgery - 1984, ICD placement 2015, Hx Coronary Artery Bypass Graft, Hx Coronary Stent - 1984, Hx Thyroid Surgery, Other - AICD - Immunizations Immunizations up to date: Yes Hx Diphtheria, Pertussis, Tetanus Vaccination: Yes Hx Pneumococcal Vaccination: 05/26/10 Review of Systems - Review of Systems Constitutional: denies: Fever, Malaise, Weakness EENT: denies: Double vision, Difficulty swallowing, Throat swelling Cardiovascular: Edema. denies: Chest pain, Palpitations, Heart racing Respiratory: Cough. denies: Hurts to breathe, Short of breath, Wheezing, Other Gastrointestinal: Constipation. denies: Abdominal pain, Diarrhea, Nausea Genitourinary: denies: Dysuria, Discharge Musculoskeletal: denies: Back pain, Joint pain, Muscle pain Skin: denies: Change in color, Dryness, Lesions, Lumps, Rash Hematologic/Lymphatic: denies: Anemia, Blood clots, Easy bleeding, Easy bruising Neurological/Psychological: denies: Confusion, Weakness, Numbness Physical Exam - Vital signs Interpretation: Normal - General General appearance: Appears well, Alert - HEENT Head: Normocephalic, Atraumatic Eyes: Normal Pupils: PERRL - Respiratory Respiratory status: No respiratory distress Chest status: Nontender Breath sounds: Normal Chest palpation: Normal - Cardiovascular Rhythm: Regular Heart sounds: Normal auscultation Murmur: No - Abdominal Inspection: Normal Distension: No distension Bowel sounds: Normal Tenderness: Nontender Organomegaly: No organomegaly - Back Back: Normal, Nontender - Extremities General upper extremity: Normal inspection, Nontender, Normal color, Normal ROM , Normal temperature General lower extremity: Normal inspection, Nontender, Edema, Normal color, Normal ROM, Normal temperature. No: Kadi's sign - Neurological Neuro grossly intact: Yes Orientation: AAOx4 Speech: Dysarthria Sensory: Normal - Psychological Associated symptoms: Normal affect, Normal mood - Skin Skin Temperature: Warm Skin Moisture: Dry Skin Color: Normal Course - Re-evaluation Re-evalutation: 01/29/18 14:59 Altered hospitalist for admission. Hospitalist evaluated patient. Patient in house decided he does not want to be admitted. Patient has outpatient follow- up. Will DC at this time - Laboratory Result Diagrams: 01/29/18 10:55 01/29/18 10:55 Laboratory results interpreted by me: 01/29/18 01/29/18 01/29/18 10:10 10:55 10:55 Hgb 13.0 L MCHC 31.7 L RDW 17.5 H Monocytes % 15.7 H Chloride 94 L Carbon Dioxide 41 H* BUN 25 H ALT 20 L Creatine Kinase 29 L NT-Pro-B Natriuret Pep Urine Protein 100 H 01/29/18 10:55 Hgb MCHC RDW Monocytes % Chloride Carbon Dioxide BUN ALT Creatine Kinase NT-Pro-B Natriuret Pep 4940 H Urine Protein Discharge - Discharge Clinical Impression: Chronic congestive heart failure Qualifiers: Heart failure type: unspecified Qualified Code(s): I50.9 - Heart failure, unspecified Constipation Qualifiers: Constipation type: unspecified constipation type Qualified Code(s): K59.00 - Constipation, unspecified Condition: Good Disposition: HOME, SELF-CARE Instructions: Congestive Heart Failure ([facility]), Constipation ([facility]) Prescriptions: Docusate Sodium [Colace 100 mg Capsule] 100 mg PO BID 15 Days #30 capsule
[2018-01-29 11:33] LABS: ALANINE AMINOTRANSFERASE 20 U/L (21-72); ALBUMIN 3.9 g/dL (3.5-5.0); ALKALINE PHOSPHATASE 61 U/L (38-126); ASPARTATE AMINO TRANSFERASE 24 U/L (17-59); BILIRUBIN,DIRECT 0.4 mg/dL (0.0-0.4); BILIRUBIN,TOTAL 0.8 mg/dL (0.2-1.3); BLOOD UREA NITROGEN 25 mg/dL (7-20); CALCIUM 8.6 mg/dL (8.4-10.2); CHLORIDE 94 mmol/L (98-107); CREATINE KINASE 29 U/L (55-170); GLUCOSE 108 mg/dL (75-110); LIPASE 58.4 U/L (23-300); POTASSIUM 4.5 mmol/L (3.6-5.0); SODIUM 143.1 mmol/L (137-145)
[2018-01-29 11:34] LABS: APPEARANCE,URINE CLEAR; BILIRUBIN,URINE NEGATIVE (NEGATIVE); COLOR,URINE YELLOW; GLUCOSE, URINE NEGATIVE (NEGATIVE); KETONES,URINE NEGATIVE (NEGATIVE); LEUKOCYTE ESTERASE,URINE NEGATIVE (NEGATIVE); NITRITE,URINE NEGATIVE (NEGATIVE); PROTEIN,URINE 100 mg/dL (NEGATIVE); URINE SPECIFIC GRAVITY 1.018; UROBILINOGEN,URINE NEGATIVE mg/dL (<2.0)
[2018-01-29 11:35] LABS: ADD MANUAL MICROSCOPIC YES; HYALINE CASTS, URINE RARE /LPF
[2018-01-29 11:43] LABS: CREATINE KINASE MB 2.65 ng/mL (<4.55)
[2018-01-29 11:53] LABS: ANION GAP 8 (5-19)
[2018-01-29 11:55] LABS: CARBON DIOXIDE 41 mmol/L (22-30)
[2018-01-29 11:56] LABS: TROPONIN I 0.057 ng/mL
--- NOTE | 2018-01-29 12:45 | EKG REPORT ---
SEVERITY:- ABNORMAL ECG - SINUS RHYTHM IRBBB AND LPFB BORDERLINE INFERIOR Q WAVES CONSIDER ANTERIOR INFARCT : Confirmed by: Zac Brandon MD 29-Jan-2018 12:45:15
[2018-01-29] MEDS ORDERED: FUROSEMIDE 80 MG TABLET PO ONE (13:00)
[2018-01-29] MEDS ORDERED: LACTULOSE SYRUP 20 GM/30 ML UDCUP PO ONE (13:00)
[2018-01-29] MEDS ORDERED: BISACODYL 5 MG TABEC PO ONE (13:00)
== END 2018-01-29 15:00 | disposition home or self-care (01) ==
LOC: ER 08:44
DX: I11.0 Hypertensive heart disease with heart failure (principal); I50.9 Heart failure, unspecified; K59.00 Constipation, unspecified; R05 Cough; R47.1 Dysarthria and anarthria; J44.9 Chronic obstructive pulmonary disease, unspecified; E11.9 Type 2 diabetes mellitus without complications; Z88.8 Allergy status to other drugs, medicaments and biological substances; Z87.891 Personal history of nicotine dependence; Z82.49 Family history of ischemic heart disease and other diseases of the circulatory system
CPT/HCPCS: 93005; 99284; 36415; 82553; 82550; 83690; 85025; 80053; 81001; 84484; 83880; 71046; 93010; J3490

== ENCOUNTER 2018-01-30 03:37 | Emergency (ER) | payer OTHER, MEDICARE ==
[2018-01-30 03:44] VITALS: BP 135/91
--- NOTE | 2018-01-30 05:54 | ER Document Report ---
ED Medical Screen (RME) - General Chief Complaint: Rectal Bleeding Stated Complaint: RECTAL BLEEDING Time Seen by Provider: 01/30/18 05:40 Notes: Patient seen in the emergency department yesterday for abdominal pain, diagnosed with constipation and given Colace. Caregiver is with patient stated this evening had 1 bowel movement which produced bright red blood in the toilet , as well as blood on a pad patient sat on. TRAVEL OUTSIDE OF THE [place] IN LAST 30 DAYS: No - Related Data Allergies/Adverse Reactions: captopril [From Capoten] Allergy (Severe, Verified 01/27/18 09:52) Angioedema atorvastatin calcium [From Lipitor] Allergy (Intermediate, Verified 01/27/18 09: 52) Angioedema clopidogrel [From Plavix] Allergy (Verified 01/27/18 09:52) rosuvastatin [From Crestor] Allergy (Verified 01/27/18 09:52) simvastatin [From Zocor] Allergy (Verified 01/27/18 09:52) Angioedema Past Medical History - Social History Family history: None - Past Medical History Cardiac Medical History: Reports: Hx Congestive Heart Failure - Systolic with EF of 25-30% as of 2D echo in July 2017, Hx Coronary Artery Disease, Hx Heart Attack - 2008, Hx Hypercholesterolemia, Hx Hypertension Pulmonary Medical History: Reports: Hx Asthma, Hx Bronchitis, Hx COPD, Hx Sleep Apnea Neurological Medical History: Reports: Hx Cerebrovascular Accident - x 2. Denies: Hx Seizures Endocrine Medical History: Reports: Hx Diabetes Mellitus Type 1, Hx Diabetes Mellitus Type 2 Renal/ Medical History: Denies: Hx Peritoneal Dialysis Malignancy Medical History: GI Medical History: Reports: Hx Diverticulitis, Hx Gastroesophageal Reflux Disease Musculoskeltal Medical History: Reports Hx Arthritis, Reports Hx Musculoskeletal Deformity, Reports Hx Musculoskeletal Trauma Psychiatric Medical History: Reports: Hx Anxiety, Hx Post Traumatic Stress Disorder Denies: Hx Depression Infectious Medical History: Past Surgical History: Reports: Hx Abdominal Surgery - for diverticulitis, Hx Bowel Surgery - Colon resection due to diverticulitis, Hx Cardiac Catheterization, Hx Cardiac Surgery - 1984, ICD placement 2015, Hx Coronary Artery Bypass Graft, Hx Coronary Stent - 1984, Hx Thyroid Surgery, Other - AICD - Immunizations Immunizations up to date: Yes Hx Diphtheria, Pertussis, Tetanus Vaccination: Yes History of Influenza Vaccine for 02/2017 - 07/2017 Season: Refused Physical Exam - Vital signs Vitals: Temp Pulse Resp BP Pulse Ox 98.2 F 80 16 135/91 H 94 01/30/18 03:42 01/30/18 03:42 01/30/18 03:42 01/30/18 03:42 01/30/18 03:42 - Abdominal Inspection: Normal Distension: No distension Bowel sounds: Normal Tenderness: Tender Course - Vital Signs Vital signs: Temp Pulse Resp BP Pulse Ox 98.2 F 80 16 135/91 H 94 01/30/18 03:42 01/30/18 03:42 01/30/18 03:42 01/30/18 03:42 01/30/18 03:42
[2018-01-30 06:46] LABS: ABSOLUTE BASOPHILS # (AUTO) 0.1 10^3/uL (0.0-0.2); ABSOLUTE EOSINOPHILS # (AUTO) 0.2 10^3/uL (0.0-0.6); ABSOLUTE LYMPHOCYTES (AUTO) 0.8 10^3/uL (0.5-4.7); ABSOLUTE MONOCYTES (AUTO) 0.8 10^3/uL (0.1-1.4); ABSOLUTE NEUT (AUTO) 3.5 10^3/uL (1.7-8.2); EOSINOPHILS % (AUTO) 4.4 % (0-6); HEMATOCRIT 38.7 % (37.9-51.0); HEMOGLOBIN 12.5 g/dL (13.5-17.0); LYMPHOCYTES % (AUTO) 14.8 % (13-45); MEAN CORPUSCULAR HEMOGLOBIN 27.9 pg (27.0-33.4); MEAN CORPUSCULAR HGB CONC 32.4 g/dL (32.0-36.0); MEAN CORPUSCULAR VOLUME 86 fl (80-97); MONOCYTES % (AUTO) 15.4 % (3-13); PLATELET COUNT 156 10^3/uL (150-450); RED BLOOD COUNT 4.49 10^6/uL (4.35-5.55); RED CELL DISTRIBUTION WIDTH 17.6 % (11.5-14.0); SEGMENTED NEUTROPHILS % (AUTO) 64.4 % (42-78); TOTAL CELLS COUNTED % (AUTO) 100 %; WHITE BLOOD COUNT 5.4 10^3/uL (4.0-10.5)
[2018-01-30 06:56] LABS: INTERNATIONAL RATION (INR) 1.05; PROTHROMBIN TIME 14.2 SEC (11.4-15.4)
[2018-01-30 06:57] LABS: PARTIAL THROMBOPLASTIN TIME 36.5 SEC (23.5-35.8)
[2018-01-30 07:04] LABS: ALANINE AMINOTRANSFERASE 26 U/L (21-72); ALBUMIN 3.8 g/dL (3.5-5.0); ALKALINE PHOSPHATASE 58 U/L (38-126); ASPARTATE AMINO TRANSFERASE 26 U/L (17-59); BILIRUBIN,DIRECT 0.5 mg/dL (0.0-0.4); BILIRUBIN,TOTAL 0.9 mg/dL (0.2-1.3); BLOOD UREA NITROGEN 20 mg/dL (7-20); CALCIUM 8.4 mg/dL (8.4-10.2); CHLORIDE 96 mmol/L (98-107); GLUCOSE 101 mg/dL (75-110); POTASSIUM 4.2 mmol/L (3.6-5.0); SODIUM 142.3 mmol/L (137-145); TOTAL PROTEIN 6.7 g/dL (6.3-8.2)
[2018-01-30 07:13] LABS: ANION GAP 7 (5-19)
[2018-01-30 07:14] LABS: CARBON DIOXIDE 39 mmol/L (22-30)
--- NOTE | 2018-01-30 09:07 | ER Document Report ---
ED GI Bleed / Rectal Pain - General Chief Complaint: Rectal Bleeding Stated Complaint: RECTAL BLEEDING Time Seen by Provider: 01/30/18 05:40 Mode of Arrival: Ambulatory Information source: Patient Notes: Patient states that he had an episode during the evening where he had rectal bleeding. Patient states that he was here yesterday and was evaluated for constipation. Patient did have a bowel movement yesterday as well as a bowel movement this morning. Patient states that he did have a normal bowel movement after the episode of rectal bleeding in which she did not notice any blood in the stool. Patient denies any abdominal pain or fever. Patient without any back pain. Patient was given a prescription for Colace yesterday although has not filled the prescription. TRAVEL OUTSIDE OF THE [place] IN LAST 30 DAYS: No - HPI Patient complains to provider of: Bright red bld from rect.. No: Rectal pain, Vomiting blood Onset: This morning Timing/Duration: Better Quality of pain: No pain Pain Level: Denies Rectal foreign body: No Associated symptoms: Constipation. denies: Back pain, Abdominal pain, Chest pain Exacerbated by: Supine Relieved by: Denies Similar symptoms previously: No Recently seen / treated by doctor: Yes - Related Data Allergies/Adverse Reactions: captopril [From Capoten] Allergy (Severe, Verified 01/27/18 09:52) Angioedema atorvastatin calcium [From Lipitor] Allergy (Intermediate, Verified 01/27/18 09: 52) Angioedema clopidogrel [From Plavix] Allergy (Verified 01/27/18 09:52) rosuvastatin [From Crestor] Allergy (Verified 01/27/18 09:52) simvastatin [From Zocor] Allergy (Verified 01/27/18 09:52) Angioedema Past Medical History - General Information source: Patient - Social History Smoking Status: Never Smoker Frequency of alcohol use: None Drug Abuse: None Lives with: Alone Family History: CAD, DM, Hypertension, Thyroid Disfunction Patient has suicidal ideation: No Patient has homicidal ideation: No - Past Medical History Cardiac Medical History: Reports: Hx Congestive Heart Failure - Systolic with EF of 25-30% as of 2D echo in July 2017, Hx Coronary Artery Disease, Hx Heart Attack - 2009, Hx Hypercholesterolemia, Hx Hypertension Pulmonary Medical History: Reports: Hx Asthma, Hx Bronchitis, Hx COPD, Hx Sleep Apnea Neurological Medical History: Reports: Hx Cerebrovascular Accident - x 2. Denies: Hx Seizures Endocrine Medical History: Reports: Hx Diabetes Mellitus Type 1, Hx Diabetes Mellitus Type 2 Renal/ Medical History: Denies: Hx Peritoneal Dialysis Malignancy Medical History: GI Medical History: Reports: Hx Diverticulitis, Hx Gastroesophageal Reflux Disease Musculoskeletal Medical History: Reports Hx Arthritis, Reports Hx Musculoskeletal Deformity, Reports Hx Musculoskeletal Trauma Psychiatric Medical History: Reports: Hx Anxiety, Hx Post Traumatic Stress Disorder Denies: Hx Depression Infectious Medical History: Past Surgical History: Reports: Hx Abdominal Surgery - for diverticulitis, Hx Bowel Surgery - Colon resection due to diverticulitis, Hx Cardiac Catheterization, Hx Cardiac Surgery - 1984, ICD placement 2015, Hx Coronary Artery Bypass Graft, Hx Coronary Stent - 1984, Hx Thyroid Surgery, Other - AICD - Immunizations Immunizations up to date: Yes Hx Diphtheria, Pertussis, Tetanus Vaccination: Yes Hx Pneumococcal Vaccination: 05/26/10 Review of Systems - Review of Systems Constitutional: No symptoms reported. denies: Fever, Recent illness EENT: No symptoms reported Cardiovascular: No symptoms reported. denies: Chest pain, Lightheaded Respiratory: No symptoms reported. denies: Cough Gastrointestinal: Constipation, Rectal bleeding, Last bowel movement. denies: Abdominal pain, Nausea, Black stools Genitourinary: No symptoms reported. denies: Dysuria, Flank pain Male Genitourinary: No symptoms reported Musculoskeletal: No symptoms reported. denies: Back pain Skin: No symptoms reported Hematologic/Lymphatic: No symptoms reported Neurological/Psychological: No symptoms reported Physical Exam - Vital signs Vitals: Temp Pulse Resp BP Pulse Ox 98.2 F 80 16 135/91 H 94 01/30/18 03:42 01/30/18 03:42 01/30/18 03:42 01/30/18 03:42 01/30/18 03:42 - General General appearance: Appears well, Alert In distress: None - HEENT Head: Normocephalic, Atraumatic Eyes: Normal Nasal: Normal Mouth/Lips: Normal Mucous membranes: Normal Neck: Normal, Supple - Respiratory Respiratory status: No respiratory distress Chest status: Nontender Breath sounds: Normal Chest palpation: Normal - Cardiovascular Rhythm: Regular Heart sounds: S1 appreciated, S2 appreciated - Abdominal Inspection: Morbidly Obese Distension: No distension Bowel sounds: Normal Tenderness: Nontender - Rectal Tenderness: No Stool: See lab result Hemorrhoids: None. No: External, Anal fissure - Back Back: Normal, Nontender. No: CVA tenderness - Extremities General upper extremity: Normal inspection, Normal ROM General lower extremity: Normal inspection, Normal ROM - Neurological Cognition: Normal [place] Coma Scale Eye Opening: Spontaneous [place] Coma Scale Verbal: Oriented - Thick garbled speech due to previous CVA [place] Coma Scale Motor: Obeys Commands [place] Coma Scale Total: 15 - Psychological Associated symptoms: Normal affect, Normal mood - Skin Skin Temperature: Warm Skin Moisture: Dry Skin Color: Normal Course - Re-evaluation Re-evalutation: 01/30/18 09:04 Patient's abdomen soft, nontender. No guarding. Patient does not take any anticoagulants. Vital signs stable. Patient without any lightheadedness dizziness or chest pain symptoms. Consulted with Dr. Graham regarding patient presentation, reviewed diagnostic test results. Agrees with discharge plan of care and recommends outpatient follow-up with primary doctor as well as GI specialty. - Vital Signs Vital signs: Temp Pulse Resp BP Pulse Ox 98.2 F 80 16 135/91 H 94 01/30/18 03:42 01/30/18 03:42 01/30/18 03:42 01/30/18 03:42 01/30/18 03:42 - Laboratory Result Diagrams: 01/30/18 06:31 01/30/18 06:31 Laboratory results interpreted by me: 01/30/18 01/30/18 01/30/18 06:31 06:31 06:31 Hgb 12.5 L RDW 17.6 H Monocytes % 15.4 H APTT 36.5 H Chloride 96 L Carbon Dioxide 39 H Direct Bilirubin 0.5 H 01/30/18 09:05 Labs- Entire Visit 01/30/18 01/30/18 01/30/18 06:31 06:31 06:31 WBC 5.4 RBC 4.49 Hgb 12.5 L Hct 38.7 MCV 86 MCH 27.9 MCHC 32.4 RDW 17.6 H Plt Count 156 Seg Neutrophils % 64.4 Lymphocytes % 14.8 Monocytes % 15.4 H Eosinophils % 4.4 Basophils % 1.0 Absolute Neutrophils 3.5 Absolute Lymphocytes 0.8 Absolute Monocytes 0.8 Absolute Eosinophils 0.2 Absolute Basophils 0.1 PT 14.2 INR 1.05 APTT 36.5 H Sodium 142.3 Potassium 4.2 Chloride 96 L Carbon Dioxide 39 H Anion Gap 7 BUN 20 Creatinine 0.86 Est GFR ( Amer) > 60 Est GFR (Non-Af Amer) > 60 Glucose 101 Calcium 8.4 Total Bilirubin 0.9 Direct Bilirubin 0.5 H Neonat Total Bilirubin Not Reportable Neonat Direct Bilirubin Not Reportable Neonat Indirect Bili Not Reportable AST 26 ALT 26 Alkaline Phosphatase 58 Total Protein 6.7 Albumin 3.8 Stool Occult Blood Blood Type Antibody Screen 01/30/18 01/30/18 06:31 07:30 WBC RBC Hgb Hct MCV MCH MCHC RDW Plt Count Seg Neutrophils % Lymphocytes % Monocytes % Eosinophils % Basophils % Absolute Neutrophils Absolute Lymphocytes Absolute Monocytes Absolute Eosinophils Absolute Basophils PT INR APTT Sodium Potassium Chloride Carbon Dioxide Anion Gap BUN Creatinine Est GFR ( Amer) Est GFR (Non-Af Amer) Glucose Calcium Total Bilirubin Direct Bilirubin Neonat Total Bilirubin Neonat Direct Bilirubin Neonat Indirect Bili AST ALT Alkaline Phosphatase Total Protein Albumin Stool Occult Blood POSITIVE Blood Type O POSITIVE Antibody Screen NEGATIVE Discharge - Discharge Clinical Impression: episode of rectal bleeding Condition: Stable Disposition: HOME, SELF-CARE Instructions: Rectal Bleeding, Unclear Cause ([facility]) Additional Instructions: Return immediately for any new or worsening symptoms Followup with your primary care provider, call tomorrow to make a followup appointment Follow-up with a living coach. You may need to have a colonoscopy to further evaluate possible cause bleeding today. Referrals: [facility] [Provider Group] - Follow up as needed SAMEER PEREZ MD [ACTIVE STAFF] - Follow up as needed MAIA RODGERS MD [NO LOCAL MD] - Follow up as needed CARIDAD QUEEN MD [ACTIVE STAFF] - Follow up as needed
== END 2018-01-30 09:30 | disposition home or self-care (01) ==
LOC: ER 03:37
DX: K62.5 Hemorrhage of anus and rectum (principal); K59.00 Constipation, unspecified; I10 Essential (primary) hypertension; J44.9 Chronic obstructive pulmonary disease, unspecified; E11.9 Type 2 diabetes mellitus without complications
CPT/HCPCS: 36415; 80053; 82272; 85025; 85610; 85730; 86850; 86900; 86901; 99283

== ENCOUNTER 2018-03-31 01:30 | Inpatient (IN) | payer OTHER, MEDICARE ==
[2018-03-31] MEDS ORDERED: ASPIRIN 81 MG TABLET, CHEWABLE PO ONE (01:31)
[2018-03-31 02:07] LABS: HEMATOCRIT 34.7 % (37.9-51.0); HEMOGLOBIN 11.6 g/dL (13.5-17.0); MEAN CORPUSCULAR HEMOGLOBIN 28.4 pg (27.0-33.4); MEAN CORPUSCULAR HGB CONC 33.5 g/dL (32.0-36.0); MEAN CORPUSCULAR VOLUME 85 fl (80-97); PLATELET COUNT 150 10^3/uL (150-450); RED BLOOD COUNT 4.09 10^6/uL (4.35-5.55); RED CELL DISTRIBUTION WIDTH 15.2 % (11.5-14.0); WHITE BLOOD COUNT 5.1 10^3/uL (4.0-10.5)
[2018-03-31 02:25] LABS: ABSOLUTE LYMPHOCYTES# (MANUAL) 1.6 10^3/uL (0.5-4.7); ABSOLUTE MONOCYTES # (MANUAL) 0.3 10^3/uL (0.1-1.4); ABSOLUTE NEUTROPHILS# (MANUAL) 2.9 10^3/uL (1.7-8.2); BASOPHILS % (MANUAL) 0 % (0-2); EOSINOPHILS % (MANUAL) 7 % (0-6); LYMPHOCYTES % (MANUAL) 31 % (13-45); MONOCYTES % (MANUAL) 5 % (3-13); SEGMENTED NEUTROPHILS % (MAN) 57 % (42-78); TOTAL CELLS COUNTED 100
[2018-03-31 02:28] LABS: ALANINE AMINOTRANSFERASE 14 U/L (21-72); ALBUMIN 3.6 g/dL (3.5-5.0); ALKALINE PHOSPHATASE 67 U/L (38-126); ANION GAP 8 (5-19); ASPARTATE AMINO TRANSFERASE 26 U/L (17-59); BILIRUBIN,DIRECT 0.4 mg/dL (0.0-0.4); BILIRUBIN,TOTAL 0.7 mg/dL (0.2-1.3); BLOOD UREA NITROGEN 17 mg/dL (7-20); CALCIUM 8.9 mg/dL (8.4-10.2); CARBON DIOXIDE 36 mmol/L (22-30); CHLORIDE 98 mmol/L (98-107); CREATINE KINASE 23 U/L (55-170); GLUCOSE 107 mg/dL (75-110); POTASSIUM 4.7 mmol/L (3.6-5.0); SODIUM 142.2 mmol/L (137-145); TOTAL PROTEIN 6.8 g/dL (6.3-8.2)
[2018-03-31 02:29] LABS: ANISOCYTOSIS 1+; BURR CELLS SLIGHT; HELMET CELLS 1+; OVALOCYTES 1+; POIKILOCYTOSIS 1+; TEAR DROP CELLS SLIGHT; TOXIC GRANULATION SLIGHT
[2018-03-31 02:30] LABS: PLATELET COMMENT ADEQUATE
--- NOTE | 2018-03-31 02:37 | RADIOLOGY REPORT (SQ) ---
CLINICAL HISTORY: chest pain COMPARISON: December 30, 2017. TECHNIQUE: XR CHEST 1 VIEW 03/31/2018 1:31 AM HAND SURGEON FINDINGS: Cardiac silhouette is enlarged. There is bibasilar airspace disease. There are bilateral pleural effusions. There is a left single-chamber ICD. There is no pneumothorax. There are no acute osseous findings. IMPRESSION: Worsening bibasilar airspace disease.
[2018-03-31 02:40] LABS: CREATINE KINASE MB 1.31 ng/mL (<4.55)
[2018-03-31 02:47] LABS: TROPONIN I 0.042 ng/mL
[2018-03-31] MEDS ORDERED: NITROGLYCERIN 0.4 MG/TAB 25 TAB/BOTTLE SL PRN (03:31)
--- NOTE | 2018-03-31 03:34 | ER Document Report ---
ED Cardiac - General Chief Complaint: Chest Tightness Stated Complaint: CHEST TIGHTNESS Time Seen by Provider: 03/31/18 02:13 Notes: Patient is a 62-year-old male very familiar to this facility presenting to the emergency department from [facility] living [facility] for chest tightness and shortness of breath. Patient states all of a sudden tonight at 2100 hrs. he developed chest tightness in the center of his chest and increased shortness of breath. Patient states he was not doing anything to proceed this chest pain. Patient states he does suffer from orthopnea and has not been sleeping recently because he is unable to lay flat at night. Patient denies cough, congestion, fever, abdominal pain, nausea, vomiting, diarrhea. Past medical history: Atrial fibrillation, CVA, dysphasia, congestive heart failure, COPD, bipolar, diabetes, kidney failure, pacemaker, PTSD Medications: Albuterol, Xanax, Symbicort, iron, gabapentin, lactulose, metformin , nitroglycerin, omeprazole, Flomax, Lasix Allergies: Captopril, Lipitor, simvastatin, Plavix Patient is a full code TRAVEL OUTSIDE OF THE [place] IN LAST 30 DAYS: No - Related Data Allergies/Adverse Reactions: captopril [From Capoten] Allergy (Severe, Verified 03/31/18 02:20) Angioedema atorvastatin calcium [From Lipitor] Allergy (Intermediate, Verified 03/31/18 02: 20) Angioedema clopidogrel [From Plavix] Allergy (Verified 03/31/18 02:20) rosuvastatin [From Crestor] Allergy (Verified 03/31/18 02:20) simvastatin [From Zocor] Allergy (Verified 03/31/18 02:20) Angioedema Past Medical History - General Information source: Patient - Social History Smoking Status: Unknown if Ever Smoked Lives with: Skilled Nursing Family History: Reviewed & Not Pertinent, CAD, DM, Hypertension, Thyroid Disfunction Patient has suicidal ideation: No Patient has homicidal ideation: No - Past Medical History Cardiac Medical History: Reports: Hx Congestive Heart Failure - Systolic with EF of 25-30% as of 2D echo in July 2017, Hx Coronary Artery Disease, Hx Heart Attack - 2008, Hx Hypercholesterolemia, Hx Hypertension Pulmonary Medical History: Reports: Hx Asthma, Hx Bronchitis, Hx COPD, Hx Sleep Apnea Neurological Medical History: Reports: Hx Cerebrovascular Accident - x 2. Denies: Hx Seizures Endocrine Medical History: Reports: Hx Diabetes Mellitus Type 1, Hx Diabetes Mellitus Type 2 Renal/ Medical History: Denies: Hx Peritoneal Dialysis Malignancy Medical History: GI Medical History: Reports: Hx Diverticulitis, Hx Gastroesophageal Reflux Disease Musculoskeletal Medical History: Reports Hx Arthritis, Reports Hx Musculoskeletal Deformity, Reports Hx Musculoskeletal Trauma Psychiatric Medical History: Reports: Hx Anxiety, Hx Post Traumatic Stress Disorder Denies: Hx Depression Infectious Medical History: Past Surgical History: Reports: Hx Abdominal Surgery - for diverticulitis, Hx Bowel Surgery - Colon resection due to diverticulitis, Hx Cardiac Catheterization, Hx Cardiac Surgery - 1984, ICD placement 2015, Hx Coronary Artery Bypass Graft, Hx Coronary Stent - 1984, Hx Thyroid Surgery, Other - AICD - Immunizations Immunizations up to date: Yes Hx Diphtheria, Pertussis, Tetanus Vaccination: Yes Hx Pneumococcal Vaccination: 05/26/10 Review of Systems - Review of Systems Constitutional: No symptoms reported EENT: No symptoms reported Cardiovascular: See HPI Respiratory: See HPI Gastrointestinal: No symptoms reported Genitourinary: No symptoms reported Male Genitourinary: No symptoms reported Musculoskeletal: No symptoms reported Skin: No symptoms reported Hematologic/Lymphatic: No symptoms reported Neurological/Psychological: No symptoms reported Physical Exam - Vital signs Vitals: Pulse Ox 99 03/31/18 01:31 - Notes Notes: GENERAL: Alert, interacts well. Expressive aphasia noted. This is patient's baseline. HEAD: Normocephalic, atraumatic. EYES: Pupils equal, round, and reactive to light. Extraocular movements intact. ENT: Oral mucosa moist, tongue midline. NECK: Full range of motion. Supple. Trachea midline. LUNGS: no wheezes, rales bilateral bases to middle lobes. Minor tachypnea at 24. HEART: Regular rate and rhythm. No murmur ABDOMEN: Soft, non-tender. Non-distended. Bowel sounds present in all 4 quadrants. EXTREMITIES: Moves all 4 extremities spontaneously. normal radial and dorsalis pedis pulses bilaterally. No cyanosis. +1 pitting edema bilateral lower extremities to calf. BACK: no cervical, thoracic, lumbar midline tenderness. No saddle anesthesia, normal distal neurovascular exam. NEUROLOGICAL: Alert and oriented x3. Normal speech. cranial nerves II through XII grossly intact. PSYCH: Normal affect, normal mood. SKIN: Warm, dry, normal turgor. Course - Re-evaluation Re-evalutation: 03/31/18 06:27 Troponin is currently downtrending but after Lasix administration patient asked to stand up and use the restroom. Patient was able to use a bedside urinal, but then developed increased shortness of breath. Patient was then sat down in bed and rested for 15 minutes. Patient continued to be tachypneic at 30 and continued with increased crackles bilateral bases. Patient states he is having increase in respiratory distress. Discussed with patient need for BiPAP at this time although oxygen saturation remains at 98%. Patient states he suffers from PTSD and gets very claustrophobic with the BiPAP mask. Discussed use of Ativan with BiPAP. Patient refuses BiPAP mask at this time. Discussed case with Dr. Fernandez for admission CHF exacerbation. She agrees to admission. - Vital Signs Vital signs: Temp Pulse Resp BP Pulse Ox 98 F 26 H 104/80 98 03/31/18 05:35 03/31/18 06:02 03/31/18 06:02 03/31/18 06:02 - Laboratory Result Diagrams: 03/31/18 01:45 03/31/18 01:45 Laboratory results interpreted by me: 03/31/18 03/31/18 03/31/18 01:45 01:45 01:45 RBC 4.09 L Hgb 11.6 L Hct 34.7 L RDW 15.2 H Eosinophils % (Manual) 7 H Carbon Dioxide 36 H ALT 14 L Creatine Kinase 23 L NT-Pro-B Natriuret Pep 4700 H Discharge - Discharge Clinical Impression: Elevated troponin, Chest pain of uncertain etiology Congestive heart failure Qualifiers: Heart failure type: unspecified Heart failure chronicity: chronic Qualified Code(s): I50.9 - Heart failure, unspecified Condition: Stable Disposition: ADMITTED INPATIENT Admitting Provider: Jair Fernandez Unit Admitted: Telemetry Referrals: RICK ROBISON MD [Primary Care Provider] - Follow up as needed
[2018-03-31] MEDS ORDERED: FUROSEMIDE INJ/PF 40 MG/4 ML SDV IV ONE (05:08)
--- NOTE | 2018-03-31 07:31 | EKG REPORT ---
SEVERITY:- ABNORMAL ECG - SINUS RHYTHM PROBABLE LEFT ATRIAL ABNORMALITY NONSPECIFIC INTRAVENTRICULAR CONDUCTION DELAY CONSIDER ANTERIOR INFARCT : Confirmed by: Zac Brandon MD 31-Mar-2018 07:30:41
--- NOTE | 2018-03-31 07:32 | EKG REPORT ---
SEVERITY:- ABNORMAL ECG - SINUS RHYTHM PROBABLE LEFT ATRIAL ABNORMALITY IRBBB AND LPFB CONSIDER ANTERIOR INFARCT : Confirmed by: Zac Brandon MD 31-Mar-2018 07:30:57
[2018-03-31] MEDS ORDERED: GLUCAGON,HUMAN RECOMB 1 MG INJ IM PRN (08:00)
[2018-03-31] MEDS ORDERED: DEXTROSE 50%-WATER 25 GM/50 ML DISP.SYRIN IV PRN ×2 (08:00)
[2018-03-31] MEDS ORDERED: INSULIN LISPRO 100 UNIT/ML 3 ML VIAL SUBCUT PRN (08:00)
[2018-03-31] MEDS ORDERED: DEXTROSE 40% GEL 15 GM TUBE PO PRN ×2 (08:00)
--- NOTE | 2018-03-31 08:00 | PDOC H&P ---
History of Present Illness Admission Date/PCP: 03/31/18 06:36 RICK ROBISON MD History of Present Illness: ALEX Guadarrama KNIGHT is a 62 year old black male brought from care home with chief complaint of shortness of breath and chest tightness. Patient has extensive cardiac and other medical history which include systolic congestive heart failure grade 4 and his last echocardiogram which was done about 4 months ago revealed ejection fraction of 25%. Patient has also COPD, coronary artery disease status post coronary artery bypass graft, atrial fibrillation status post AICD placement, hypertension, BPH, bipolar disorder, diabetes mellitus. Since patient is sleeping is not source of history. Brief history is obtained from ER attending notes. Per ER attending note patient reports with chest tightness and shortness of breath while at rest. Patient has also history of orthopnea. No mention of other constitutional symptoms. Detailed history and review of systems unobtainable. Past Medical History Cardiac Medical History: Reports: Congestive Heart Failure - Systolic with EF of 25-30% as of 2D echo in July 2017, Coronary Artery Disease, Myocardial Infarction - 2008, Hyperlipidema, Hypertension Pulmonary Medical History: Reports: Asthma, Bronchitis, Chronic Obstructive Pulmonary Disease (COPD), Sleep Apnea Neurological Medical History: Denies: Seizures Endocrine Medical History: Reports: Diabetes Mellitus Type 1, Diabetes Mellitus Type 2 Renal/ Medical History: Malignancy Medical History: Denies: Breast Cancer, Cervical Cancer, Ovarian Cancer GI Medical History: Reports: Diverticulitis, Gastroesophageal Reflux Disease Musculoskeltal Medical History: Reports: Arthritis Psychiatric Medical History: Reports: Post Traumatic Stress Disorder Denies: Depression Hematology: Reports: Anemia Denies: Hemophilia, Sickle Cell Disease - sickle cell trait Infectious Medical History: Past Surgical History Past Surgical History: Reports: Cardiac Catheterization, Coronary Artery Bypass Graft, Coronary Stent - 1984, Other - AICD Social History Lives with: [facility] Smoking Status: Unknown if Ever Smoked Frequency of Alcohol Use: None Hx Recreational Drug Use: No Drugs: None Hx Prescription Drug Abuse: No - Advance Directive Resuscitation Status: Full Code Family History Family History: Reviewed & Not Pertinent, CAD, DM, Hypertension, Thyroid Disfunction Parental Family History Reviewed: Yes Children Family History Reviewed: Yes Sibling(s) Family History Reviewed.: Yes Medication/Allergy Allergies/Adverse Reactions: captopril [From Capoten] Allergy (Severe, Verified 03/31/18 02:20) Angioedema atorvastatin calcium [From Lipitor] Allergy (Intermediate, Verified 03/31/18 02: 20) Angioedema clopidogrel [From Plavix] Allergy (Verified 03/31/18 02:20) rosuvastatin [From Crestor] Allergy (Verified 03/31/18 02:20) simvastatin [From Zocor] Allergy (Verified 03/31/18 02:20) Angioedema Review of Systems ROS unobtainable: Other - Patient is sleeping Physical Exam Vital Signs: Temp Pulse Resp BP Pulse Ox 98 F 97 26 H 110/81 100 03/31/18 05:35 03/31/18 07:42 03/31/18 07:42 03/31/18 07:42 03/31/18 07:42 Intake & Output 03/30/18 03/31/18 04/01/18 06:59 06:59 06:59 Output Total 300 Balance -300 General appearance: PRESENT: no acute distress Head exam: PRESENT: atraumatic, normocephalic Eye exam: PRESENT: conjunctiva pink Mouth exam: PRESENT: dry mucosa Neck exam: ABSENT: carotid bruit, JVD, lymphadenopathy, thyromegaly Respiratory exam: PRESENT: wheezes - Bilaterally Cardiovascular exam: PRESENT: RRR. ABSENT: diastolic murmur, rubs, systolic murmur GI/Abdominal exam: PRESENT: normal bowel sounds, soft. ABSENT: distended, guarding, mass, organolmegaly, rebound, tenderness Extremities exam: PRESENT: +2 edema Results Impressions: Chest X-Ray 03/31/18 01:31 IMPRESSION: Worsening bibasilar airspace disease. Assessment & Plan - Diagnosis (1) Acute on chronic systolic heart failure, NYHA class 4 Is this a current diagnosis for this admission?: Yes Plan: Patient admitted with full patient status to telemetry floor with continuous cardiac monitoring. Since his medication list is not ready patient empirically started on enalapril , Lasix, digoxin, metoprolol succinate. We will keep him in bed rest, check his BMP in a.m. Daily weight and monitoring input output strictly. (2) Coronary artery disease Is this a current diagnosis for this admission?: Yes Plan: I will continue his home medications. (3) Atrial fibrillation Is this a current diagnosis for this admission?: Yes Plan: Rate controlled. Patient needs continuous cardiac monitoring. (4) Type 2 diabetes mellitus Is this a current diagnosis for this admission?: Yes Plan: I will put him on sliding scale and continue his home medications. (5) COPD (chronic obstructive pulmonary disease) Is this a current diagnosis for this admission?: Yes Plan: Patient has been on 2 L of oxygen and his saturation is about 98%. I will put him on DuoNeb (6) Hypertension Is this a current diagnosis for this admission?: Yes Plan: Continue his home medications. (7) Hyperlipidemia Is this a current diagnosis for this admission?: Yes Plan: Reportedly patient has allergy to all statins. (8) BPH (benign prostatic hyperplasia) Is this a current diagnosis for this admission?: Yes Plan: Continue his home medication - Inpatient Certification Medical Necessity: Need Close Monitoring Due to Risk of Patient Decompensation, Need For Continuous Telemetry Monitoring
[2018-03-31] MEDS: METOPROLOL SUCCINATE 25 MG TAB.SR.24H PO SCH ×2 (10:29→10:38)
[2018-03-31] MEDS: FUROSEMIDE INJ/PF 20 MG/2 ML SDV IV SCH ×2 (10:29→22:50)
[2018-03-31] MEDS: FAMOTIDINE 20 MG TABLET PO SCH ×2 (10:29→22:27)
[2018-03-31] MEDS: DIGOXIN 0.125 MG TABLET PO SCH (10:30)
[2018-03-31] MEDS: ACETAMINOPHEN 325 MG TABLET PO PRN ×3 (10:35→23:53)
[2018-03-31] MEDS: IPRATROPIUM/ALBUTEROL 0.5-2.5 MG/3 ML AMPUL NEB SCH ×2 (13:08→19:50)
[2018-03-31] MEDS: HEPARIN SOD (PORCINE) 5,000 UNIT/ML 1 ML SYRINGE SUBCUT SCH ×2 (13:51→22:26)
[2018-03-31] MEDS ORDERED: (PENDING PHARMACY ID) (Docusate Calcium [Docusate Calcium] 240 MG) PO PRN (13:53)
[2018-03-31] MEDS ORDERED: ALBUTEROL SULFATE HFA (90 MCG/PUFF) 8 GM MDI (1 MDI/ER DISP) IH PRN (13:53)
[2018-03-31] MEDS ORDERED: ALPRAZOLAM 0.5 MG TABLET PO PRN (13:53)
[2018-03-31] MEDS ORDERED: (PENDING PHARMACY ID) (Naproxen [Naprosyn] 500 MG) PO PRN (13:53)
[2018-03-31] MEDS ORDERED: TOBRAMYCIN SULFATE/DEXAMETH OPH SUSP 2.5 ML OS SCH (14:00)
[2018-03-31] MEDS ORDERED: (PENDING PHARMACY ID) (Ferrous Sulfate [Ferrous Sulfate] 324 MG) PO SCH (14:00)
[2018-03-31] MEDS ORDERED: METHENAMINE HIPPURATE TOP SCH (14:00)
[2018-03-31] MEDS ORDERED: (PENDING PHARMACY ID) (Dextran 70/Hypromellose [Artificial Tears] 1 DROP) OU SCH (14:00)
[2018-03-31] MEDS ORDERED: ALBUTEROL SULFATE HFA (90 MCG/PUFF) 200 PUFF/8.5 GM MDI IH PRN (14:13)
[2018-03-31] MEDS: GABAPENTIN 300 MG CAPSULE PO SCH ×2 (14:32→22:27)
[2018-03-31] MEDS: ASPIRIN 81 MG TABLET, CHEWABLE PO SCH (14:32)
[2018-03-31] MEDS: SPIRONOLACTONE 25 MG TABLET PO SCH (14:34)
[2018-03-31] MEDS ORDERED: NAPROXEN 250 MG TABLET PO PRN (14:50)
[2018-03-31] MEDS ORDERED: GANCICLOVIR OD SCH (16:00)
[2018-03-31] MEDS: ASCORBIC ACID 500 MG TABLET PO SCH (16:45)
[2018-03-31] MEDS: METFORMIN HCL 500 MG TABLET PO SCH (16:45)
[2018-03-31] MEDS: MINERAL OIL/PETROLATUM,WHITE CREAM 114 GM TP SCH (17:32)
[2018-03-31] MEDS: FERROUS SULFATE 325 MG TABLET PO SCH (17:32)
[2018-03-31] MEDS: POLYVINYL ALCOHOL 1.4% OPH SOLN 15 ML OU SCH ×2 (17:32→22:26)
[2018-03-31] MEDS: OMEGA-3 ACID ETHYL ESTERS 1 GM CAPSULE PO SCH (17:35)
[2018-03-31] MEDS: CYCLOSPORINE 0.05% OPH EMULSIO 0.4 ML DROPERETTE OU SCH (17:35)
[2018-03-31] MEDS ORDERED: (PENDING PHARMACY ID) (Omega-3 Fatty Acids/Fish Oil [Fish Oil 1,000 Mg Capsule] 2,000 MG) PO SCH (18:00)
[2018-03-31] MEDS ORDERED: ERYTHROMYCIN 0.5% OPH OINT 1 GM UNIT DOSE OU SCH (18:00)
[2018-03-31] MEDS ORDERED: MINERAL OIL TOP SCH (18:00)
[2018-03-31] MEDS ORDERED: WITCH HAZEL TOP SCH (18:00)
[2018-03-31] MEDS ORDERED: HYPROMELLOSE OU SCH (18:00)
[2018-03-31] MEDS ORDERED: PETROLATUM WHITE TOP SCH (18:00)
[2018-03-31] MEDS ORDERED: (PENDING PHARMACY ID) (Lactulose [Constulose 10 Gm/15 Ml Oral Solution] 10 ML) PO SCH (22:00)
[2018-03-31] MEDS: LACTULOSE SYRUP 20 GM/30 ML UDCUP PO SCH (22:26)
[2018-04-01] MEDS ORDERED: METOPROLOL TARTRATE PF/INJ 5 MG/5 ML SDV IV ONE ×2 (01:22→01:30)
[2018-04-01] MEDS: IPRATROPIUM/ALBUTEROL 0.5-2.5 MG/3 ML AMPUL NEB SCH ×4 (02:27→20:21)
[2018-04-01] MEDS: HEPARIN SOD (PORCINE) 5,000 UNIT/ML 1 ML SYRINGE SUBCUT SCH ×3 (06:23→21:05)
[2018-04-01 06:40] LABS: ARTERIAL BLOOD BASE EXCESS 7.1 mmol/L; ARTERIAL BLOOD FIO2 ROOM AIR; ARTERIAL BLOOD H2CO3 1.43 mmol/L (1.05-1.35); ARTERIAL BLOOD HCO3 32.2 mmol/L (20-24); ARTERIAL BLOOD O2 SATURATION 97.1 % (94-98); ARTERIAL BLOOD PCO2 47.5 mmHg (35-45); ARTERIAL BLOOD PH 7.45 (7.35-7.45); ARTERIAL BLOOD PO2 89.7 mmHg (80-100); ARTERIAL BLOOD TOTAL CO2 33.7 mmol/L (23-27)
[2018-04-01 06:56] LABS: ANION GAP 11 (5-19); BLOOD UREA NITROGEN 24 mg/dL (7-20); CARBON DIOXIDE 37 mmol/L (22-30); CHLORIDE 95 mmol/L (98-107); GLUCOSE 99 mg/dL (75-110); POTASSIUM 4.5 mmol/L (3.6-5.0); SODIUM 142.5 mmol/L (137-145)
[2018-04-01] MEDS: METFORMIN HCL 500 MG TABLET PO SCH ×2 (07:49→17:02)
[2018-04-01] MEDS: ACETAMINOPHEN 325 MG TABLET PO PRN ×3 (07:52→20:27)
[2018-04-01] MEDS: MINERAL OIL/PETROLATUM,WHITE CREAM 114 GM TP SCH ×2 (09:47→17:04)
[2018-04-01] MEDS: FERROUS SULFATE 325 MG TABLET PO SCH ×3 (09:47→17:04)
[2018-04-01] MEDS: FAMOTIDINE 20 MG TABLET PO SCH ×2 (09:49→21:06)
[2018-04-01] MEDS: POLYVINYL ALCOHOL 1.4% OPH SOLN 15 ML OU SCH ×4 (09:49→21:14)
[2018-04-01] MEDS: SPIRONOLACTONE 25 MG TABLET PO SCH (09:53)
[2018-04-01] MEDS: ASCORBIC ACID 500 MG TABLET PO SCH (09:53)
[2018-04-01] MEDS: DIGOXIN 0.125 MG TABLET PO SCH (09:55)
[2018-04-01] MEDS: CYCLOSPORINE 0.05% OPH EMULSIO 0.4 ML DROPERETTE OU SCH ×2 (09:55→17:01)
[2018-04-01] MEDS: ASPIRIN 81 MG TABLET, CHEWABLE PO SCH (09:56)
[2018-04-01] MEDS: FUROSEMIDE INJ/PF 20 MG/2 ML SDV IV SCH ×2 (09:56→21:05)
[2018-04-01] MEDS: OMEGA-3 ACID ETHYL ESTERS 1 GM CAPSULE PO SCH ×2 (09:56→17:02)
[2018-04-01] MEDS: GABAPENTIN 300 MG CAPSULE PO SCH ×2 (09:57→21:06)
[2018-04-01] MEDS: METOPROLOL SUCCINATE 25 MG TAB.SR.24H PO SCH (09:57)
--- NOTE | 2018-04-01 13:22 | PDOC PROGRESS REPORT ---
Subjective Progress Note for:: 04/01/18 Subjective:: Mr. Taylor is a 62 years old [facility] resident with multiple comorbidities presented to us with chief complaint of chest tightness and shortness of breath. Patient has underlying grade 4 systolic congestive heart failure. His echo which was done about 4 months ago revealed EF of 25%. With impression of acute on chronic systolic congestive heart failure exacerbation patient has been started on Lasix and other cardioprotective medications. This morning I seen patient sitting on recliner and is still complains of shortness of breath he has also +2 pitting edema. His BNP bumped up from 4700 to 7120. I would increase the dose of his Lasix from 20 mg twice a day to 40 mg IV twice a day. Reason For Visit: HEART FAILURE Physical Exam Vital Signs: Temp Pulse Resp BP Pulse Ox 97.8 F 98 18 118/75 96 04/01/18 00:59 04/01/18 08:00 04/01/18 08:00 04/01/18 00:59 04/01/18 08:00 Intake & Output 03/31/18 04/01/18 04/02/18 06:59 06:59 06:59 Intake Total 266 Output Total 300 Balance -300 266 Weight 91.1 kg General appearance: PRESENT: mild distress Head exam: PRESENT: atraumatic Eye exam: PRESENT: conjunctiva pink Mouth exam: PRESENT: moist Neck exam: ABSENT: carotid bruit, JVD, lymphadenopathy, thyromegaly Respiratory exam: PRESENT: rales, rhonchi, wheezes Cardiovascular exam: PRESENT: irregular rhythm GI/Abdominal exam: PRESENT: normal bowel sounds, soft. ABSENT: distended, guarding, mass, organolmegaly, rebound, tenderness Extremities exam: PRESENT: +2 edema Neurological exam: PRESENT: alert, awake Results Laboratory Results: 04/01/18 06:06 04/01/18 04/01/18 06:06 06:15 Carbonic Acid 1.43 H HCO3/H2CO3 Ratio 22:1 ABG pH 7.45 ABG pCO2 47.5 H ABG pO2 89.7 ABG HCO3 32.2 H ABG O2 Saturation 97.1 ABG Base Excess 7.1 FiO2 ROOM AIR Sodium 142.5 Potassium 4.5 Chloride 95 L Carbon Dioxide 37 H Anion Gap 11 BUN 24 H Creatinine 1.06 Est GFR ( Amer) > 60 Est GFR (Non-Af Amer) > 60 Glucose 99 Calcium 9.0 04/01/18 06:06 NT-Pro-B Natriuret Pep 7120 H Impressions: Chest X-Ray 03/31/18 01:31 IMPRESSION: Worsening bibasilar airspace disease. Assessment & Plan - Diagnosis (1) Acute on chronic systolic heart failure, NYHA class 4 Is this a current diagnosis for this admission?: Yes Plan: Increase the dose of Lasix from 20 mg twice a day to 40 mg IV twice a day. BMP in a.m. (2) Coronary artery disease Is this a current diagnosis for this admission?: Yes Plan: I will continue his home medications. (3) Atrial fibrillation Is this a current diagnosis for this admission?: Yes Plan: Rate controlled. Patient needs continuous cardiac monitoring. (4) Type 2 diabetes mellitus Is this a current diagnosis for this admission?: Yes Plan: I will put him on sliding scale and continue his home medications. (5) COPD (chronic obstructive pulmonary disease) Is this a current diagnosis for this admission?: Yes Plan: Patient has been on 2 L of oxygen and his saturation is about 98%. I will put him on DuoNeb (6) Hypertension Is this a current diagnosis for this admission?: Yes Plan: Continue his home medications. (7) Hyperlipidemia Is this a current diagnosis for this admission?: Yes Plan: Reportedly patient has allergy to all statins. (8) BPH (benign prostatic hyperplasia) Is this a current diagnosis for this admission?: Yes
[2018-04-01] MEDS: LACTULOSE SYRUP 20 GM/30 ML UDCUP PO SCH (22:05)
[2018-04-02] MEDS: IPRATROPIUM/ALBUTEROL 0.5-2.5 MG/3 ML AMPUL NEB SCH ×2 (05:19→08:12)
[2018-04-02] MEDS: HEPARIN SOD (PORCINE) 5,000 UNIT/ML 1 ML SYRINGE SUBCUT SCH ×2 (06:09→13:28)
[2018-04-02] MEDS ORDERED: DOCUSATE SODIUM 100 MG CAPSULE PO PRN (07:13)
[2018-04-02] MEDS: ACETAMINOPHEN 325 MG TABLET PO PRN (07:25)
[2018-04-02] MEDS: METFORMIN HCL 500 MG TABLET PO SCH (07:25)
--- NOTE | 2018-04-02 08:40 | Physician Advisory Note ---
Physician Advisor ProgressNote .: Pursuant to the plan for [facility], I have reviewed the medical record for this patient. Physician Advisor Statement: Nursing note 11/7 AM states pt developed chest discomfort w/HR 130s at 01:00 ( "SVT on monitor"), resolved after 5mg IV metoprolol given. Please consider documenting, if you agree: 1. "acute CP, suspect due to " (SVT/Afib RVR causing angina/acute ischemic heart dz/anxiety...?) Thanks! CK
[2018-04-02] MEDS: MINERAL OIL/PETROLATUM,WHITE CREAM 114 GM TP SCH (09:21)
[2018-04-02] MEDS: FAMOTIDINE 20 MG TABLET PO SCH (09:22)
[2018-04-02] MEDS: FERROUS SULFATE 325 MG TABLET PO SCH ×2 (09:22→13:28)
[2018-04-02] MEDS: POLYVINYL ALCOHOL 1.4% OPH SOLN 15 ML OU SCH ×2 (09:22→13:28)
[2018-04-02] MEDS: SPIRONOLACTONE 25 MG TABLET PO SCH (09:33)
[2018-04-02] MEDS: FUROSEMIDE INJ/PF 20 MG/2 ML SDV IV SCH (09:33)
[2018-04-02] MEDS: OMEGA-3 ACID ETHYL ESTERS 1 GM CAPSULE PO SCH (09:34)
[2018-04-02] MEDS: ASPIRIN 81 MG TABLET, CHEWABLE PO SCH (09:35)
[2018-04-02] MEDS: GABAPENTIN 300 MG CAPSULE PO SCH (09:35)
[2018-04-02] MEDS: CYCLOSPORINE 0.05% OPH EMULSIO 0.4 ML DROPERETTE OU SCH (09:36)
[2018-04-02] MEDS: DIGOXIN 0.125 MG TABLET PO SCH (09:37)
[2018-04-02] MEDS: ASCORBIC ACID 500 MG TABLET PO SCH (09:38)
--- NOTE | 2018-04-02 09:54 | PDOC TRANSFER SUMMARY ---
General - Admit/Disc Date/PCP Admission Date/Primary Care Provider: 03/31/18 06:36 RICK ROBIOSN MD Discharge Date: 04/02/18 - Discharge Diagnosis (1) Acute on chronic systolic heart failure, NYHA class 4 Is this a current diagnosis for this admission?: Yes (2) Coronary artery disease Is this a current diagnosis for this admission?: Yes (3) Atrial fibrillation Is this a current diagnosis for this admission?: Yes (4) Type 2 diabetes mellitus Is this a current diagnosis for this admission?: Yes (5) COPD (chronic obstructive pulmonary disease) Is this a current diagnosis for this admission?: Yes (6) Hypertension Is this a current diagnosis for this admission?: Yes (7) Hyperlipidemia Is this a current diagnosis for this admission?: Yes (8) BPH (benign prostatic hyperplasia) Is this a current diagnosis for this admission?: Yes - Additional Information Resuscitation Status: Full Code Discharge Diet: Cardiac Discharge Activity: Activity As Tolerated, Balance Activity w/Rest, Weigh Daily Prescriptions: Digoxin [Lanoxin 0.125 mg Tablet] 0.125 mg PO DAILY 30 Days #30 tablet Metoprolol Succinate [Toprol Xl 25 mg Tab.sr] 25 mg PO DAILY 30 Days #30 tab.sr.24h Home Medications: Albuterol Sulfate [Proair HFA] 1 puff IH QIDP PRN 03/31/18 Alprazolam [Xanax 0.5 mg Tablet] 0.5 mg PO HSP PRN 03/31/18 Ascorbic Acid [Vitamin C 500 mg Tablet] 500 mg PO DAILY 03/31/18 Aspirin [Aspirin 81 mg Chewable Tablet] 162 mg PO DAILY 03/31/18 Cyclosporine 0.05% Oph Emulsio [Restasis 0.05% Oph Emulsion Pf 0.4 ml] 1 drop OU BID 03/31/18 Dextran 70/Hypromellose [Artificial Tears] 1 drop OU QID 03/31/18 Docusate Calcium 240 mg PO DAILYP PRN 03/31/18 Ferrous Sulfate 324 mg PO TID 03/31/18 Ganciclovir [Zirgan] 1 drop OD 5XD 03/31/18 Hypromellose [Systane Gel] 1 drop OU BID 03/31/18 Lactulose [Constulose 10 gm/15 mL Oral Solution] 10 ml PO QHS 03/31/18 Metformin HCl [Glucophage 500 mg Tablet] 500 mg PO BID 03/31/18 Mineral Oil/Petrolatum,White [Eucerin Creme] 1 applic TOP BID 03/31/18 Naproxen [Naprosyn] 500 mg PO BIDP PRN 03/31/18 [place]-3 Fatty Acids/Fish Oil [Fish Oil 1,000 mg Capsule] 2,000 mg PO BID Spironolactone [Aldactone 25 mg Tablet] 12.5 mg PO DAILY 03/31/18 Indu Howell 1 applic TOP BID 03/31/18 Digoxin [Lanoxin 0.125 mg Tablet] 0.125 mg PO DAILY 30 Days #30 tablet 04/02/18 Methenamine Hippurate [Methenamine Hippurate] 24 gm TOP .ASDIR #0 04/02/18 Metoprolol Succinate [Toprol Xl 25 mg Tab.sr] 25 mg PO DAILY 30 Days #30 tab.sr.24h 04/02/18 History of Present Illness Admission Date/PCP: 03/31/18 06:36 RICK ROBISON MD History of Present Illness: ALEX KNIGHT is a 62 year old black male brought from skilled nursing with chief complaint of shortness of breath and chest tightness. Patient has extensive cardiac and other medical history which include systolic congestive heart failure grade 4 and his last echocardiogram which was done about 4 months ago revealed ejection fraction of 25%. Patient has also COPD, coronary artery disease status post coronary artery bypass graft, atrial fibrillation status post AICD placement, hypertension, BPH, bipolar disorder, diabetes mellitus. Since patient is sleeping is not source of history. Brief history is obtained from ER attending notes. Per ER attending note patient reports with chest tightness and shortness of breath while at rest. Patient has also history of orthopnea. No mention of other constitutional symptoms. Detailed history and review of systems unobtainable. Hospital Course Hospital Course: Mr. Knight is a 62 years old skilled nursing resident with multiple comorbidities presented to us with chief complaint of chest tightness and shortness of breath. Patient has underlying grade 4 systolic congestive heart failure. His echo which was done about 4 months ago revealed EF of 25%. With impression of acute on chronic systolic congestive heart failure exacerbation patient has been started on Lasix and other cardioprotective medications. This morning I seen patient sitting on recliner and is still complains of shortness of breath he has also +2 pitting edema. His BNP bumped up from 4700 to 7120. Reportedly , Nursing note 117 AM states pt developed chest discomfort w/HR 130s at 01:00 ( "SVT on monitor"), resolved after 5mg IV metoprolol given.I increased the dose of his Lasix from 20 mg twice a day to 40 mg IV twice a day. This morning I seen patient resting on recliner he is awake alert and oriented he is not in pain or distress. He claims his shortness of breath is remarkably subsided and he wants to be discharged today. I will continue all his home medication and added for him digoxin 0.25 mg p.o. daily and metoprolol succinate 25 mg p.o. daily. Physical Exam Vital Signs: Temp Pulse Resp BP Pulse Ox 98.1 F 100 16 102/72 96 04/02/18 08:00 04/02/18 08:00 04/02/18 08:00 04/02/18 08:00 04/02/18 08:13 Intake & Output 04/01/18 04/02/18 04/03/18 06:59 06:59 06:59 Intake Total 266 Output Total 550 Balance 266 -550 Weight 91.1 kg 91.1 kg General appearance: PRESENT: mild distress Head exam: PRESENT: atraumatic Eye exam: PRESENT: conjunctiva pink Mouth exam: PRESENT: moist Neck exam: ABSENT: carotid bruit, JVD, lymphadenopathy, thyromegaly Respiratory exam: PRESENT: rales, rhonchi, wheezes Cardiovascular exam: PRESENT: irregular rhythm GI/Abdominal exam: PRESENT: normal bowel sounds, soft. ABSENT: distended, guarding, mass, organolmegaly, rebound, tenderness Extremities exam: PRESENT: +2 edema Neurological exam: PRESENT: alert, awake, oriented to time, oriented to situation Results Laboratory Results: 04/01/18 06:06 04/01/18 06:06 NT-Pro-B Natriuret Pep 7120 H Impressions: Chest X-Ray 03/31/18 01:31 IMPRESSION: Worsening bibasilar airspace disease. Qualifiers - * PATIENT BEING DISCHARGED WITH ANY OF THE FOLLOWING DIAGNOSIS: Heart Failure VTE patient discharged on overlapping Therapy?: No Reason(s) for not prescribing Overlap Therapy:: Not indicated Stroke Pt being discharged on Anti-thrombolytic therapy?: No Reason(s) for not prescribing Anti-thrombolytic therapy:: Not indicated Stroke Pt being discharged on Anti-coagulation therapy?: No Reason(s) for not prescribing Anti-coagulation therapy:: Not indicated Stroke Pt being discharged on Statins?: No Reason(s) for not prescribing Statins therapy:: Not indicated WA Pt being discharged on Aspirin therapy?: No Reason(s) for not prescribing Aspirin therapy:: Not indicated WA Pt being discharged on Statins?: No Reason(s) for not prescribing Statin therapy:: Not indicated WA Pt discharged ACEI/ARBS?: No Reason(s) for not prescribing ACEI/ARBS:: Not indicated HF Pt being discharged on ACEI for LVEF less than 40%?: No Reason(s) for not prescribing ACEI:: Contraindicated HF Pt being discharged on ARBS for LVEF less than 40%?: No Reason(s) for not prescribing ARBS:: Contraindicated HF Pt with Afib discharged with Warfarin?: No Reason(s) for not prescribing Warfarin:: Not indicated HF Pt discharged on evidence-based Beta Makenna:: Yes
[2018-04-02] MEDS ORDERED: METOPROLOL SUCCINATE 25 MG TAB.SR.24H PO SCH (10:00)
[2018-04-02 13:35] VITALS: BP 106/76
== END 2018-04-02 14:35 | DRG 293 ==
LOC: ER 01:30 → EH 06:36 → 4N 08:02
PROVIDERS: ADMIT Internal Medicine; ATTEND Internal Medicine
PROC: 5A09357 Assistance with Respiratory Ventilation, Less than 24 Consecutive Hours, Continuous Positive Airway Pressure (ICD-10-PCS; principal; 2018-03-31)
PROC: 3E0F73Z Introduction of Anti-inflammatory into Respiratory Tract, Via Natural or Artificial Opening (ICD-10-PCS; 2018-03-31)
DX: I11.0 Hypertensive heart disease with heart failure (principal); I50.23 Acute on chronic systolic (congestive) heart failure; I25.10 Atherosclerotic heart disease of native coronary artery without angina pectoris; I48.91 Unspecified atrial fibrillation; N40.0 Benign prostatic hyperplasia without lower urinary tract symptoms; M19.90 Unspecified osteoarthritis, unspecified site; E78.5 Hyperlipidemia, unspecified; J44.9 Chronic obstructive pulmonary disease, unspecified; Z95.1 Presence of aortocoronary bypass graft; Z95.810 Presence of automatic (implantable) cardiac defibrillator; E11.9 Type 2 diabetes mellitus without complications; Z79.82 Long term (current) use of aspirin; Z79.51 Long term (current) use of inhaled steroids; Z79.84 Long term (current) use of oral hypoglycemic drugs; Z79.899 Other long term (current) drug therapy; F43.10 Post-traumatic stress disorder, unspecified; G47.30 Sleep apnea, unspecified; Z95.5 Presence of coronary angioplasty implant and graft; I69.328 Other speech and language deficits following cerebral infarction; Z83.49 Family history of other endocrine, nutritional and metabolic diseases; Z83.3 Family history of diabetes mellitus; Z82.49 Family history of ischemic heart disease and other diseases of the circulatory system; F40.240 Claustrophobia
CPT/HCPCS: 36415; 36600; 71045; 80048; 80053; 82550; 82553; 82803; 82962; 83880; 84484; 85025; 93005; 93010; 94640; 96374; 99285; J1644; J1940; J3490; J7620

== ENCOUNTER 2018-04-06 11:12 | Emergency (ER) | payer OTHER, MEDICARE ==
--- NOTE | 2018-04-06 11:57 | ER Document Report ---
ED GI/ - General Chief Complaint: Constipation Stated Complaint: ABDOMINAL PAIN Time Seen by Provider: 04/06/18 11:35 Information source: Patient Notes: 62-year-old male with past medical history as recorded with some expressive aphasia secondary to previous stroke, who was supposedly on life support at [facility] in a month ago secondary to a severe exacerbation of his baseline stage IV heart failure, who is currently at the [facility], who presents today stating some abdominal pain and constipation for the last 3-4 days. Patient states that he has a history of constipation. Patient is able to vocalize his thoughts, with extra time and stuttering. His home health aide is currently at bedside as well. Patient was actually also admitted around 5 days ago secondary to some heart failure. At that time he did increase his Lasix and started the patient on a low-dose of digoxin and metoprolol. Patient denies any shortness of breath at this time. Patient has a history of baseline atrial fibrillation as well as the other recorded diagnoses. Patient denies any fevers, vomiting, with a small bowel movement yesterday. He denies any rectal bleeding. Patient states a mild suprapubic cramping. He was supposedly just diagnosed with a urinary tract infection yesterday secondary to some urinary hesitancy. TRAVEL OUTSIDE OF THE [place] IN LAST 30 DAYS: No - HPI Patient complains to provider of: Other - See above Onset: Other - See above Timing/Duration: Intermittent Quality of pain: Achy Severity at maximum: Moderate Severity in ED: Mild Pain Level: Denies Context: Other - See above Location: Other - See above - Related Data Allergies/Adverse Reactions: captopril [From Capoten] Allergy (Severe, Verified 03/31/18 02:20) Angioedema atorvastatin calcium [From Lipitor] Allergy (Intermediate, Verified 03/31/18 02: 20) Angioedema clopidogrel [From Plavix] Allergy (Verified 03/31/18 02:20) rosuvastatin [From Crestor] Allergy (Verified 03/31/18 02:20) simvastatin [From Zocor] Allergy (Verified 03/31/18 02:20) Angioedema Past Medical History - Social History Smoking Status: Unknown if Ever Smoked Family History: Reviewed & Not Pertinent, CAD, DM, Hypertension, Thyroid Disfunction Patient has suicidal ideation: No Patient has homicidal ideation: No - Past Medical History Cardiac Medical History: Reports: Hx Congestive Heart Failure - Systolic with EF of 25-30% as of 2D echo in July 2017, Hx Coronary Artery Disease, Hx Heart Attack - 2009, Hx Hypercholesterolemia, Hx Hypertension Pulmonary Medical History: Reports: Hx Asthma, Hx Bronchitis, Hx COPD, Hx Sleep Apnea Neurological Medical History: Reports: Hx Cerebrovascular Accident - x 2. Denies: Hx Seizures Endocrine Medical History: Reports: Hx Diabetes Mellitus Type 1, Hx Diabetes Mellitus Type 2 Renal/ Medical History: Denies: Hx Peritoneal Dialysis Malignancy Medical History: GI Medical History: Reports: Hx Diverticulitis, Hx Gastroesophageal Reflux Disease Musculoskeletal Medical History: Reports Hx Arthritis, Reports Hx Musculoskeletal Deformity, Reports Hx Musculoskeletal Trauma Psychiatric Medical History: Reports: Hx Anxiety, Hx Post Traumatic Stress Disorder Denies: Hx Depression Infectious Medical History: Past Surgical History: Reports: Hx Abdominal Surgery - for diverticulitis, Hx Bowel Surgery - Colon resection due to diverticulitis, Hx Cardiac Catheterization, Hx Cardiac Surgery - 1984, ICD placement 2015, Hx Coronary Artery Bypass Graft, Hx Coronary Stent - 1984, Hx Thyroid Surgery, Other - AICD - Immunizations Immunizations up to date: Yes Hx Diphtheria, Pertussis, Tetanus Vaccination: Yes Hx Pneumococcal Vaccination: 05/26/10 Review of Systems - Review of Systems Constitutional: denies: Fever EENT: denies: Eye discharge, Nose discharge Cardiovascular: Palpitations. denies: Chest pain Respiratory: denies: Short of breath Gastrointestinal: denies: Vomiting Genitourinary: Dysuria Musculoskeletal: denies: Leg swelling Skin: Other - no hives. denies: Rash Neurological/Psychological: Other - no slurred speech -: Yes All other systems reviewed and negative Physical Exam - Vital signs Notes: Reviewed vital signs and nursing note as charted by RN. CONSTITUTIONAL: Alert and oriented and responds appropriately to questions with his baseline mild expressive aphasia. Well-appearing; well-nourished HEAD: Normocephalic; atraumatic EYES: PERRL; Conjunctivae clear, sclerae non-icteric ENT: Normal nose; no rhinorrhea; moist mucous membranes; pharynx without lesions noted NECK: Supple without meningismus; non-tender; no cervical lymphadenopathy, no masses CARD: Tachycardic and regular with a heart rate of 102; no murmurs; symmetric distal pulses RESP: Normal chest excursion without splinting or tachypnea; breath sounds clear and equal bilaterally; no wheezes, no rhonchi, with very slight lower lung [place] ABD/GI: Normal bowel sounds; elevated BMI. No focal tenderness. No abdominal bruits or palpable masses GI/: Patient has no penile lesions, testicular pain or swelling, perirectal lesions, or stool in the rectal vault BACK: The back appears normal and is non-tender to palpation EXT: Normal ROM in all joints; non-tender to palpation; no edema SKIN: No acute lesions noted NEURO: CN 2-12 intact; 5/5 bilateral upper and lower extremity strength on my initial examination PSYCH: The patient's mood and manner are appropriate. Grooming and personal hygiene are appropriate. Course - Re-evaluation Re-evalutation: 04/06/18 11:56 Given the patient's history and physical examination, patient's age, with a history of diverticulitis, we will obtain basic labs, liver panel, lipase, and EKG, lactic acid level, and a CT scan of the abdomen and pelvis. 04/06/18 11:57 I called the nursing care facility and spoke to the nose that is taking care of the patient. He states that the patient was diagnosed with urinary tract infection over this weekend by his primary care physician and was started on his first dose of antibiotics this morning. 04/06/18 12:11 EKG shows a heart of 98, normal sinus rhythm, left posterior fascicular block. Poor R wave progression. Old EKG has been reviewed showing no appreciable change 04/06/18 16:09 Labs as recorded. Potassium is slightly elevated but the patient's creatinine is normal. The troponin is actually trending downward from previous troponins on previous admission. Patient has denied any and all chest pain or shortness of breath here today. I called and spoke to the radiologist about the pericardial effusion. It appears from the paperwork that the patient had a pericardial infusion at [facility] in February,. Dr. bosch looked at a CT scan of the chest from December here at this facility and he did see a pericardial effusion there as well. Patient still denies any pain or shortness of breath. Patient has no abdominal pain after a enema has caused him to have a bowel movement. Patient will be discharged home with strict return precautions and instructions for potassium redraw in 48 hours. - Laboratory Result Diagrams: 04/06/18 15:08 04/06/18 15:08 Laboratory results interpreted by me: 04/06/18 04/06/18 04/06/18 12:25 15:08 15:08 RBC 4.13 L Hgb 11.6 L Hct 35.5 L RDW 15.0 H Monocytes % 15.8 H Potassium 5.3 H Chloride 97 L Carbon Dioxide 36 H ALT 15 L Urine Protein 100 H Urine Urobilinogen 2.0 H Urine Ascorbic Acid 40 H Discharge - Discharge Clinical Impression: Serum potassium elevated Constipation Qualifiers: Constipation type: other constipation type Qualified Code(s): K59.09 - Other constipation Abdominal pain Qualifiers: Abdominal location: left lower quadrant Qualified Code(s): R10.32 - Left lower quadrant pain Condition: Good Additional Instructions: Come back immediately for any increased pain, change in location or quality of pain, fevers, vomiting, chest pain or shortness of breath, or any other acute problems. Please have the patient's potassium rechecked in 48 hours from today. Patient' s potassium here was 5.3 with a normal creatinine. I did provide a dose of Kayexalate. Referrals: RICK ROBISON MD [Primary Care Provider] - Follow up as needed
[2018-04-06 12:42] LABS: APPEARANCE,URINE CLEAR; BILIRUBIN,URINE NEGATIVE (NEGATIVE); COLOR,URINE YELLOW; GLUCOSE, URINE NEGATIVE (NEGATIVE); KETONES,URINE NEGATIVE (NEGATIVE); LEUKOCYTE ESTERASE,URINE NEGATIVE (NEGATIVE); NITRITE,URINE NEGATIVE (NEGATIVE); PROTEIN,URINE 100 mg/dL (NEGATIVE); URINE SPECIFIC GRAVITY 1.017
[2018-04-06 15:19] LABS: ABSOLUTE BASOPHILS # (AUTO) 0.1 10^3/uL (0.0-0.2); ABSOLUTE EOSINOPHILS # (AUTO) 0.2 10^3/uL (0.0-0.6); ABSOLUTE MONOCYTES (AUTO) 0.8 10^3/uL (0.1-1.4); ABSOLUTE NEUT (AUTO) 2.9 10^3/uL (1.7-8.2); BASOPHILS % (AUTO) 1.6 % (0-2); EOSINOPHILS % (AUTO) 4.2 % (0-6); HEMATOCRIT 35.5 % (37.9-51.0); HEMOGLOBIN 11.6 g/dL (13.5-17.0); LYMPHOCYTES % (AUTO) 19.6 % (13-45); MEAN CORPUSCULAR HEMOGLOBIN 28.2 pg (27.0-33.4); MEAN CORPUSCULAR HGB CONC 32.7 g/dL (32.0-36.0); MEAN CORPUSCULAR VOLUME 86 fl (80-97); MONOCYTES % (AUTO) 15.8 % (3-13); PLATELET COUNT 169 10^3/uL (150-450); RED BLOOD COUNT 4.13 10^6/uL (4.35-5.55); SEGMENTED NEUTROPHILS % (AUTO) 58.8 % (42-78); TOTAL CELLS COUNTED % (AUTO) 100 %
--- NOTE | 2018-04-06 15:21 | RADIOLOGY REPORT (SQ) ---
EXAM DESCRIPTION: CT ABD/PELVIS WITH IV ONLY COMPLETED DATE/TIME: 04/06/2018 2:37 pm REASON FOR STUDY: 5, abdominal pain with constipation COMPARISON: September 2014 TECHNIQUE: CT scan of the abdomen and pelvis performed using helical scanning technique with dynamic intravenous contrast injection. No oral contrast. Images reviewed with lung, soft tissue, and bone windows. Reconstructed coronal and sagittal MPR images reviewed. Delayed images for evaluation of the urinary system also acquired. All images stored on PACS. All CT scanners at this facility use dose modulation, iterative reconstruction, and/or weight based d osing when appropriate to reduce radiation dose to as low as reasonably achievable (ALARA). [facility]: Dose Right [facility]: CareDose [facility]: Dose Right [facility]: Teradose 4D [facility]: LayerBoom CONTRAST TYPE AND DOSE: contrast/concentration: Isovue 350.00 mg/ml; Total Contrast Delivered: 99.0 ml; Total Saline Delivered: 20.0 ml RENAL FUNCTION: GFR > 60. RADIATION DOSE: CT Rad equipment meets quality standard of care and radiation dose reduction techniq ues were employed. CTDIvol: 18.4 - 18.9 mGy. DLP: 2284 mGy-cm.. LIMITATIONS: None. FINDINGS: LOWER CHEST: A moderate size right and small left pleural effusions are identified. Peric ardial effusion is also identified. LIVER: Normal size. No masses. No dilated ducts. SPLEEN: Normal size. No focal lesions. PANCREAS: No masses. No significant calcifications. No adjacent inflammation or peripancreatic fluid collections. Pancreatic duct not dilated. GALLBLADDER: No identified stones by CT criteria. No inflammatory changes to suggest cholecystitis. ADRENAL GLANDS: No significant masses or asymmetry. RIGHT KIDNEY AND URETER: No solid masses. No significant calcifications. No hydronephrosis or hyd roureter. LEFT KIDNEY AND URETER: No solid masses. No significant calcifications. No hydronephrosis or hydr oureter. AORTA AND VESSELS: No aneurysm. No dissection. Renal arteries, SMA, celiac without stenosis. RETROPERITONEUM: No retroperitoneal adenopathy, hemorrhage or masses. BOWEL AND PERITONEAL CAVITY: No masses or inflammatory changes. No free fluid or peritoneal masses. APPENDIX: Normal. PELVIS: No mass. No free fluid. Postsurgical changes are identified at the level of the sigmoid col on. The bladder appears small in volume in there is some thickening of the bladder wall which may be related to postradiation changes. ABDOMINAL WALL: No masses. Small ventral hernia is identified in the midline containing fat. BONES: No significant or acute findings. OTHER: No other significant finding. IMPRESSION: NO SIGNIFICANT OR ACUTE FINDING IN THE ABDOMEN OR PELVIS ON CT SCAN WITH IV CONTRAST. M oderate size right and small left pleural effusions are identified. Pericardial effusion is identifi ed. Other findings as noted above TECHNICAL DOCUMENTATION: JOB ID: [id number] Quality ID # [id number]: Final reports with documentation of one or more dose reduction techniques (e.g., Au tomated exposure control, adjustment of the mA and/or kV according to patient size, use of iterative reconstruction technique) 2010 [employer]- All Rights Reserved Reading location - IP/workstation name: [email or web address]
[2018-04-06 15:31] LABS: ALANINE AMINOTRANSFERASE 15 U/L (21-72); ALBUMIN 3.8 g/dL (3.5-5.0); ALKALINE PHOSPHATASE 81 U/L (38-126); ANION GAP 8 (5-19); ASPARTATE AMINO TRANSFERASE 20 U/L (17-59); BILIRUBIN,DIRECT 0.4 mg/dL (0.0-0.4); BILIRUBIN,TOTAL 0.8 mg/dL (0.2-1.3); BLOOD UREA NITROGEN 16 mg/dL (7-20); CALCIUM 9.2 mg/dL (8.4-10.2); CARBON DIOXIDE 36 mmol/L (22-30); CHLORIDE 97 mmol/L (98-107); GLUCOSE 110 mg/dL (75-110); LIPASE 42.5 U/L (23-300); POTASSIUM 5.3 mmol/L (3.6-5.0); SODIUM 141.2 mmol/L (137-145); TOTAL PROTEIN 6.9 g/dL (6.3-8.2)
[2018-04-06] MEDS ORDERED: MINERAL OIL 30 ML UDCUP ONE (15:48)
[2018-04-06] MEDS ORDERED: SODIUM POLYSTYRENE SULFONATE 15 GM/60 ML PO ONE (16:12)
[2018-04-06 18:16] VITALS: BP 127/102
--- NOTE | 2018-04-06 20:11 | EKG REPORT ---
SEVERITY:- ABNORMAL ECG - SINUS RHYTHM IRBBB AND LPFB CONSIDER ANTERIOR INFARCT : Confirmed by: Pooja Patel 06-Apr-2018 20:09:45
== END 2018-04-06 18:11 ==
LOC: ER 11:12
DX: E87.5 Hyperkalemia (principal); K59.09 Other constipation; R10.32 Left lower quadrant pain; Z79.899 Other long term (current) drug therapy; I25.10 Atherosclerotic heart disease of native coronary artery without angina pectoris; I10 Essential (primary) hypertension; I50.9 Heart failure, unspecified; E11.9 Type 2 diabetes mellitus without complications; J44.9 Chronic obstructive pulmonary disease, unspecified
CPT/HCPCS: 36415; 74177; 80053; 81001; 83605; 83690; 84484; 85025; 93005; 93010; 99285

== ENCOUNTER 2018-04-09 12:32 | Emergency (ER) | payer OTHER, MEDICARE ==
[2018-04-09 13:24] LABS: VENOUS BLOOD BASE EXCESS 4.9 mmol/L; VENOUS BLOOD HCO3 32.1 mmol/L (20-32); VENOUS BLOOD PCO2 59.1 mmHg (35-63); VENOUS BLOOD PH 7.35 (7.30-7.42)
[2018-04-09 13:33] LABS: ABSOLUTE BASOPHILS # (AUTO) 0.1 10^3/uL (0.0-0.2); ABSOLUTE EOSINOPHILS # (AUTO) 0.2 10^3/uL (0.0-0.6); ABSOLUTE MONOCYTES (AUTO) 0.8 10^3/uL (0.1-1.4); ABSOLUTE NEUT (AUTO) 3.1 10^3/uL (1.7-8.2); EOSINOPHILS % (AUTO) 3.6 % (0-6); HEMATOCRIT 37.6 % (37.9-51.0); HEMOGLOBIN 12.3 g/dL (13.5-17.0); LYMPHOCYTES % (AUTO) 19.7 % (13-45); MEAN CORPUSCULAR HGB CONC 32.8 g/dL (32.0-36.0); MEAN CORPUSCULAR VOLUME 85 fl (80-97); MONOCYTES % (AUTO) 16.1 % (3-13); PLATELET COUNT 195 10^3/uL (150-450); RED BLOOD COUNT 4.41 10^6/uL (4.35-5.55); RED CELL DISTRIBUTION WIDTH 15.8 % (11.5-14.0); SEGMENTED NEUTROPHILS % (AUTO) 59.6 % (42-78); TOTAL CELLS COUNTED % (AUTO) 100 %; WHITE BLOOD COUNT 5.2 10^3/uL (4.0-10.5)
[2018-04-09 13:36] LABS: INTERNATIONAL RATION (INR) 1.13; PROTHROMBIN TIME 15.1 SEC (11.4-15.4)
--- NOTE | 2018-04-09 14:26 | RADIOLOGY REPORT (SQ) ---
EXAM DESCRIPTION: CHEST 2 VIEWS COMPLETED DATE/TIME: 04/09/2018 2:13 pm REASON FOR STUDY: chest tightness COMPARISON: 03/31/2018 EXAM PARAMETERS: NUMBER OF VIEWS: two views TECHNIQUE: Digital Frontal and Lateral radiographic views of the chest acquired. RADIATION DOSE: NA LIMITATIONS: none FINDINGS: LUNGS AND PLEURA: Bilateral pleural effusions. Considerable bibasilar opacification. MEDIASTINUM AND HILAR STRUCTURES: No masses or contour abnormalities. HEART AND VASCULAR STRUCTURES: Cardiomegaly. No garcia pulmonary edema. BONES: No acute findings. HARDWARE: Pacemaker/defibrillator. OTHER: No other significant finding. IMPRESSION: Pleural effusions. Mild basilar airspace disease. Atelectasis versus pneumonia. Cardi omegaly without garcia pulmonary edema. TECHNICAL DOCUMENTATION: JOB ID: [id number] [employer]- All Rights Reserved Reading location - IP/workstation name: [email or web address]
[2018-04-09] MEDS ORDERED: FUROSEMIDE INJ/PF 40 MG/4 ML SDV IV ONE ×2 (14:46→17:57)
--- NOTE | 2018-04-09 14:51 | ER Document Report ---
ED General - General Chief Complaint: Chest Tightness Stated Complaint: CHEST TIGHTNESS Time Seen by Provider: 04/09/18 14:36 Mode of Arrival: Ambulatory Information source: Patient Notes: 62-year-old male sent from [facility] for complaints of chest tightness. Patient has a history of congestive heart failure, coronary artery disease, hypertension, hyperlipidemia, COPD, diabetes. Patient states that the chest pain has resolved but he is having lower extremity swelling and pain in his feet. He states that he has peripheral neuropathy. Patient states that his right leg is swelling more and becoming painful. TRAVEL OUTSIDE OF THE [place] IN LAST 30 DAYS: No - HPI Onset: This morning Onset/Duration: Gradual Quality of pain: Achy Severity: Mild Associated symptoms: None Exacerbated by: Denies Relieved by: Denies Similar symptoms previously: Yes Recently seen / treated by doctor: No - Related Data Allergies/Adverse Reactions: captopril [From Capoten] Allergy (Severe, Verified 03/31/18 02:20) Angioedema atorvastatin calcium [From Lipitor] Allergy (Intermediate, Verified 03/31/18 02: 20) Angioedema clopidogrel [From Plavix] Allergy (Verified 03/31/18 02:20) rosuvastatin [From Crestor] Allergy (Verified 03/31/18 02:20) simvastatin [From Zocor] Allergy (Verified 03/31/18 02:20) Angioedema Past Medical History - General Information source: Patient - Social History Smoking Status: Former Smoker Family History: Reviewed & Not Pertinent, CAD, DM, Hypertension, Thyroid Disfunction - Past Medical History Cardiac Medical History: Reports: Hx Congestive Heart Failure - Systolic with EF of 25-30% as of 2D echo in July 2017, Hx Coronary Artery Disease, Hx Heart Attack - 2008, Hx Hypercholesterolemia, Hx Hypertension Pulmonary Medical History: Reports: Hx Asthma, Hx Bronchitis, Hx COPD, Hx Sleep Apnea Neurological Medical History: Reports: Hx Cerebrovascular Accident - x 2. Denies: Hx Seizures Endocrine Medical History: Reports: Hx Diabetes Mellitus Type 1, Hx Diabetes Mellitus Type 2 Renal/ Medical History: Denies: Hx Peritoneal Dialysis Malignancy Medical History: GI Medical History: Reports: Hx Diverticulitis, Hx Gastroesophageal Reflux Disease Musculoskeletal Medical History: Reports Hx Arthritis, Reports Hx Musculoskeletal Deformity, Reports Hx Musculoskeletal Trauma Psychiatric Medical History: Reports: Hx Anxiety, Hx Post Traumatic Stress Disorder Denies: Hx Depression Infectious Medical History: Past Surgical History: Reports: Hx Abdominal Surgery - for diverticulitis, Hx Bowel Surgery - Colon resection due to diverticulitis, Hx Cardiac Catheterization, Hx Cardiac Surgery - 1984, ICD placement 2015, Hx Coronary Artery Bypass Graft, Hx Coronary Stent - 1984, Hx Thyroid Surgery, Other - AICD - Immunizations Immunizations up to date: Yes Hx Diphtheria, Pertussis, Tetanus Vaccination: Yes Hx Pneumococcal Vaccination: 05/26/10 Review of Systems - Review of Systems Constitutional: No symptoms reported EENT: No symptoms reported Cardiovascular: Chest pain Respiratory: No symptoms reported Gastrointestinal: No symptoms reported Genitourinary: No symptoms reported Male Genitourinary: No symptoms reported Musculoskeletal: Leg swelling Skin: No symptoms reported Hematologic/Lymphatic: No symptoms reported Neurological/Psychological: No symptoms reported -: Yes All other systems reviewed and negative Physical Exam - Vital signs Vitals: Resp Pulse Ox 33 H 95 04/09/18 12:42 04/09/18 12:42 - Notes Notes: PHYSICAL EXAMINATION: GENERAL: Well-appearing, well-nourished and in no acute distress. HEAD: Atraumatic, normocephalic. EYES: Pupils equal round and reactive to light, extraocular movements intact, sclera anicteric, conjunctiva are normal. ENT: Nares patent, oropharynx clear without exudates. Moist mucous membranes. NECK: Normal range of motion, supple without lymphadenopathy LUNGS: Breath sounds clear to auscultation bilaterally and equal. No wheezes rales or rhonchi. HEART: Regular rate and rhythm without murmurs ABDOMEN: Soft, nontender, nondistended abdomen. No guarding, no rebound. No masses appreciated. Musculoskeletal: Normal range of motion, No cyanosis. Edema to the lower extremities bilaterally. R calf tenderness to palpation. 2+DP/PT pulses. NEUROLOGICAL: Cranial nerves grossly intact. Normal speech, normal gait. Normal sensory, motor exams PSYCH: Normal mood, normal affect. SKIN: Warm, Dry, normal turgor, no rashes or lesions noted. Course - Re-evaluation Re-evalutation: 04/09/18 14:51 EKG: Ventricular rate 69, para interval 188, castration 418, sinus rhythm, no ST segment elevation. 04/09/18 15:38 Patient refusing an IV. Lasix given PO. 04/09/18 16:32 Patient requesting to leave AGAINST MEDICAL ADVICE. Patient does not want to stay in the hospital. He is medically competent to make decisions. We will have the patient sign AMA paperwork. He acknowledges that his condition may worsen or he may by leaving AGAINST MEDICAL ADVICE. - Vital Signs Vital signs: Temp Pulse Resp BP Pulse Ox 98.1 F 34 H 97 04/09/18 13:42 04/09/18 13:00 04/09/18 13:00 - Laboratory Result Diagrams: 04/09/18 12:40 04/09/18 12:40 Laboratory results interpreted by me: 04/09/18 04/09/18 12:40 12:40 Hgb 12.3 L Hct 37.6 L RDW 15.8 H Monocytes % 16.1 H VBG HCO3 32.1 H Discharge - Discharge Clinical Impression: Chest pain Qualifiers: Chest pain type: unspecified Qualified Code(s): R07.9 - Chest pain, unspecified Condition: Stable Disposition: AGAINST MEDICAL ADVICE Referrals: RICK ROBISON MD [Primary Care Provider] - Follow up as needed
[2018-04-09] MEDS ORDERED: MORPHINE SULFATE 10 MG/ML INJ IV ONE (15:11)
[2018-04-09 16:52] LABS: ALANINE AMINOTRANSFERASE 7 U/L (21-72); ALBUMIN 4.3 g/dL (3.5-5.0); ALKALINE PHOSPHATASE 83 U/L (38-126); ANION GAP 16 (5-19); ASPARTATE AMINO TRANSFERASE 19 U/L (17-59); BILIRUBIN,DIRECT 0.7 mg/dL (0.0-0.4); BILIRUBIN,TOTAL 1.1 mg/dL (0.2-1.3); BLOOD UREA NITROGEN 37 mg/dL (7-20); CALCIUM 9.2 mg/dL (8.4-10.2); CARBON DIOXIDE 29 mmol/L (22-30); CHLORIDE 95 mmol/L (98-107); GLUCOSE 74 mg/dL (75-110); SODIUM 140.3 mmol/L (137-145); TOTAL PROTEIN 7.5 g/dL (6.3-8.2)
[2018-04-09 16:58] LABS: POTASSIUM 6.1 mmol/L (3.6-5.0)
[2018-04-09 17:14] LABS: TROPONIN I 0.06 ng/mL
[2018-04-09] MEDS ORDERED: SODIUM POLYSTYRENE SULFONATE 15 GM/60 ML PO ONE (17:22)
[2018-04-09 18:52] VITALS: BP 132/94
--- NOTE | 2018-04-10 10:38 | EKG REPORT ---
SEVERITY:- ABNORMAL ECG - SINUS RHYTHM IRBBB AND LPFB CONSIDER ANTERIOR INFARCT : Confirmed by: Pooja Patel 10-Apr-2018 10:38:04
== END 2018-04-09 19:33 | disposition left against medical advice (07) ==
LOC: ER 12:32
DX: R07.9 Chest pain, unspecified (principal); E87.5 Hyperkalemia; I50.9 Heart failure, unspecified; I25.10 Atherosclerotic heart disease of native coronary artery without angina pectoris; I11.0 Hypertensive heart disease with heart failure; E78.5 Hyperlipidemia, unspecified; J44.9 Chronic obstructive pulmonary disease, unspecified; E11.9 Type 2 diabetes mellitus without complications; Z86.73 Personal history of transient ischemic attack (TIA), and cerebral infarction without residual deficits
CPT/HCPCS: 99285; 96374; 36415; 83605; 85025; 85610; 80053; 84484; 82803; 83880; 71046; 93005; 93010; J1940

== ENCOUNTER 2018-04-13 18:38 | Emergency (ER) | payer OTHER, MEDICARE ==
[2018-04-13] MEDS ORDERED: ASPIRIN 81 MG TABLET, CHEWABLE PO ONE (18:44)
[2018-04-13 19:07] LABS: ABSOLUTE BASOPHILS # (AUTO) 0.1 10^3/uL (0.0-0.2); ABSOLUTE EOSINOPHILS # (AUTO) 0.3 10^3/uL (0.0-0.6); ABSOLUTE LYMPHOCYTES (AUTO) 1.2 10^3/uL (0.5-4.7); HEMOGLOBIN 12.1 g/dL (13.5-17.0); MEAN CORPUSCULAR HGB CONC 33.1 g/dL (32.0-36.0); MEAN CORPUSCULAR VOLUME 86 fl (80-97); TOTAL CELLS COUNTED % (AUTO) 100 %
[2018-04-13 19:15] LABS: ABSOLUTE MONOCYTES (AUTO) 0.9 10^3/uL (0.1-1.4); ABSOLUTE NEUT (AUTO) 2.9 10^3/uL (1.7-8.2); BASOPHILS % (AUTO) 1.2 % (0-2); EOSINOPHILS % (AUTO) 5.1 % (0-6); HEMATOCRIT 36.6 % (37.9-51.0); LYMPHOCYTES % (AUTO) 21.8 % (13-45); MEAN CORPUSCULAR HEMOGLOBIN 28.4 pg (27.0-33.4); MONOCYTES % (AUTO) 17.5 % (3-13); PLATELET COUNT 201 10^3/uL (150-450); RED BLOOD COUNT 4.26 10^6/uL (4.35-5.55); RED CELL DISTRIBUTION WIDTH 16.3 % (11.5-14.0); SEGMENTED NEUTROPHILS % (AUTO) 54.4 % (42-78); WHITE BLOOD COUNT 5.4 10^3/uL (4.0-10.5)
[2018-04-13 19:24] LABS: ALANINE AMINOTRANSFERASE 11 U/L (21-72); ALBUMIN 3.8 g/dL (3.5-5.0); ALKALINE PHOSPHATASE 69 U/L (38-126); ANION GAP 7 (5-19); ASPARTATE AMINO TRANSFERASE 18 U/L (17-59); BILIRUBIN,DIRECT 0.5 mg/dL (0.0-0.4); BILIRUBIN,TOTAL 1.1 mg/dL (0.2-1.3); BLOOD UREA NITROGEN 19 mg/dL (7-20); CALCIUM 8.9 mg/dL (8.4-10.2); CARBON DIOXIDE 35 mmol/L (22-30); CHLORIDE 101 mmol/L (98-107); CREATINE KINASE 31 U/L (55-170); GLUCOSE 94 mg/dL (75-110); POTASSIUM 5.2 mmol/L (3.6-5.0); SODIUM 142.9 mmol/L (137-145); TOTAL PROTEIN 6.9 g/dL (6.3-8.2)
--- NOTE | 2018-04-13 19:28 | RADIOLOGY REPORT (SQ) ---
EXAM DESCRIPTION: CHEST SINGLE VIEW COMPLETED DATE/TIME: 04/13/2018 7:11 pm REASON FOR STUDY: cp COMPARISON: 04/09/2018 EXAM PARAMETERS: NUMBER OF VIEWS: One view. TECHNIQUE: Single frontal radiographic view of the chest acquired. RADIATION DOSE: NA LIMITATIONS: None. FINDINGS: LUNGS AND PLEURA: Small bilateral pleural effusions are again identified. There is associ ated airspace density in the lung bases which could represent pneumonic infiltrates or pulmonary fredrick a. MEDIASTINUM AND HILAR STRUCTURES: No masses. Contour normal. HEART AND VASCULAR STRUCTURES: Cardiac silhouette is enlarged and unchanged in configuration. BONES: No acute findings. HARDWARE: AICD device is unchanged in position. OTHER: No other significant finding. IMPRESSION: Congestive failure pattern as noted above. I cannot exclude superimposed pneumonic infi ltrates. Other findings as noted above. TECHNICAL DOCUMENTATION: JOB ID: [id number] [email or web address]- All Rights Reserved Reading location - IP/workstation name: [email or web address]
[2018-04-13 19:34] LABS: CREATINE KINASE MB 1.8 ng/mL (<4.55)
[2018-04-13 19:41] LABS: TROPONIN I 0.046 ng/mL
--- NOTE | 2018-04-13 20:14 | ER Document Report ---
ED General - General Chief Complaint: Chest Pain Stated Complaint: CHEST PAIN Time Seen by Provider: 04/13/18 19:20 TRAVEL OUTSIDE OF THE [place] IN LAST 30 DAYS: No - HPI Patient complains to provider of: Chest pain Notes: Patient is very well-known to this provider. Patient has almost an expressive aphasia due to the strokes in the past. Also history of CHF COPD and now is on continuous oxygen. Patient was transported to the ER from a local nursing care facility. Patient upon my evaluation is denied any chest pain. Patient will concerned about his potassium patient was seen a few days ago with elevation of his potassium signed out AGAINST MEDICAL ADVICE at that time. Patient does endorse that he is taking still potassium replacement however was compliant with the Kayexalate. Patient denies any fever chills nausea vomiting diarrhea. - Related Data Allergies/Adverse Reactions: captopril [From Capoten] Allergy (Severe, Verified 03/31/18 02:20) Angioedema atorvastatin calcium [From Lipitor] Allergy (Intermediate, Verified 03/31/18 02: 20) Angioedema clopidogrel [From Plavix] Allergy (Verified 03/31/18 02:20) rosuvastatin [From Crestor] Allergy (Verified 03/31/18 02:20) simvastatin [From Zocor] Allergy (Verified 03/31/18 02:20) Angioedema Past Medical History - Social History Smoking Status: Never Smoker Chew tobacco use (# tins/day): No Family History: Reviewed & Not Pertinent, CAD, DM, Hypertension, Thyroid Disfunction Patient has suicidal ideation: No Patient has homicidal ideation: No - Past Medical History Cardiac Medical History: Reports: Hx Congestive Heart Failure - Systolic with EF of 25-30% as of 2D echo in July 2017, Hx Coronary Artery Disease, Hx Heart Attack - 2008, Hx Hypercholesterolemia, Hx Hypertension Pulmonary Medical History: Reports: Hx Asthma, Hx Bronchitis, Hx COPD, Hx Sleep Apnea Neurological Medical History: Reports: Hx Cerebrovascular Accident - x 2. Denies: Hx Seizures Endocrine Medical History: Reports: Hx Diabetes Mellitus Type 1, Hx Diabetes Mellitus Type 2 Renal/ Medical History: Denies: Hx Peritoneal Dialysis Malignancy Medical History: GI Medical History: Reports: Hx Diverticulitis, Hx Gastroesophageal Reflux Disease Musculoskeletal Medical History: Reports Hx Arthritis, Reports Hx Musculoskeletal Deformity, Reports Hx Musculoskeletal Trauma Psychiatric Medical History: Reports: Hx Anxiety, Hx Post Traumatic Stress Disorder Denies: Hx Depression Infectious Medical History: Past Surgical History: Reports: Hx Abdominal Surgery - for diverticulitis, Hx Bowel Surgery - Colon resection due to diverticulitis, Hx Cardiac Catheterization, Hx Cardiac Surgery - 1984, ICD placement 2015, Hx Coronary Artery Bypass Graft, Hx Coronary Stent - 1984, Hx Thyroid Surgery, Other - AICD - Immunizations Immunizations up to date: Yes Hx Diphtheria, Pertussis, Tetanus Vaccination: Yes Hx Pneumococcal Vaccination: 05/26/10 Review of Systems - Review of Systems Constitutional: No symptoms reported EENT: No symptoms reported Cardiovascular: Chest pain Respiratory: No symptoms reported Gastrointestinal: No symptoms reported Genitourinary: No symptoms reported Male Genitourinary: No symptoms reported Musculoskeletal: No symptoms reported Skin: No symptoms reported Hematologic/Lymphatic: No symptoms reported Neurological/Psychological: No symptoms reported Physical Exam - Vital signs Vitals: Resp BP Pulse Ox 24 H 132/88 H 97 04/13/18 18:48 04/13/18 18:48 04/13/18 18:48 Interpretation: Normal - General General appearance: Appears well, Alert - HEENT Head: Normocephalic, Atraumatic Eyes: Normal Pupils: PERRL - Respiratory Respiratory status: No respiratory distress Chest status: Nontender Breath sounds: Normal Chest palpation: Normal - Cardiovascular Rhythm: Regular Heart sounds: Normal auscultation Murmur: No - Abdominal Inspection: Normal Distension: No distension Bowel sounds: Normal Tenderness: Nontender Organomegaly: No organomegaly - Back Back: Normal, Nontender - Extremities General upper extremity: Normal inspection, Nontender, Normal color, Normal ROM , Normal temperature General lower extremity: Normal inspection, Nontender, Normal color, Normal ROM , Normal temperature, Normal weight bearing. No: Kadi's sign - Neurological Neuro grossly intact: Yes Cognition: Normal Orientation: AAOx4 [place] Coma Scale Eye Opening: Spontaneous [place] Coma Scale Verbal: Oriented [place] Coma Scale Motor: Obeys Commands [place] Coma Scale Total: 15 Speech: Other - Stuttering speech Motor strength normal: LUE, RUE, LLE, RLE Sensory: Normal - Psychological Associated symptoms: Normal affect, Normal mood - Skin Skin Temperature: Warm Skin Moisture: Dry Skin Color: Normal Course - Re-evaluation Re-evalutation: 04/13/18 23:31 Laboratory values showed a potassium of 5.2. At this time recommend the patient stop taking his potassium replacement as per approximately 48 hours however continue on his other medications. EKG troponin are otherwise negative Chest x-ray shows similar pattern from his last visit Patient request to be discharged home at this time. No acute pathology seen no changes in the chest x-ray patient does agree to hold off on his potassium place was a feel this is prep reaction at this time. Patient became very belligerent and combative at 3 explained to the patient that transport back to his nursing care facility will arrive at 2 AM. Multiple attempts by nursing staff were made to try to calm the patient down however patient continued to yell from his room and be very loud attempt to talk to the patient however became very combative and belligerent cussing therefore the patient was given medication to help him with his agitation. Otherwise patient still stable to be discharged back to his residential patient is baseline - Vital Signs Vital signs: Temp Pulse Resp BP Pulse Ox 98 F 20 138/90 H 97 04/13/18 18:49 04/13/18 23:02 04/13/18 23:02 04/13/18 23:02 - Laboratory Result Diagrams: 04/13/18 19:00 04/13/18 19:00 Laboratory results interpreted by me: 04/13/18 04/13/18 19:00 19:00 RBC 4.26 L Hgb 12.1 L Hct 36.6 L RDW 16.3 H Monocytes % 17.5 H Potassium 5.2 H Carbon Dioxide 35 H Direct Bilirubin 0.5 H ALT 11 L Creatine Kinase 31 L Discharge - Discharge Clinical Impression: Chest wall pain, Hyperkalemia Condition: Good Disposition: HOME, SELF-CARE Instructions: Chest Wall Pain ([facility]), Potassium ([facility]) Additional Instructions: Your laboratory studies today do not show any signs of cardiac ischemia EKG otherwise looks normal. Your potassium today is 5.2. I would highly recommend that you hold off taking any of your potassium supplements for the next 48 hours. I recommend a follow-up with your primary care physician in 5 days for repeat potassium testing. Please continue the rest of your medications as prescribed Referrals: RICK ROBISON MD [Primary Care Provider] - Follow up as needed
[2018-04-13] MEDS ORDERED: LORAZEPAM 1 MG TABLET PO ONE (21:02)
[2018-04-13] MEDS ORDERED: METFORMIN HCL 500 MG TABLET PO ONE (21:03)
[2018-04-13] MEDS ORDERED: LORAZEPAM INJ 2 MG/1 ML VIAL IV ONE (21:17)
[2018-04-13] MEDS ORDERED: LORAZEPAM INJ 2 MG/1 ML VIAL IM ONE (21:17)
[2018-04-13] MEDS ORDERED: DIPHENHYDRAMINE HCL 50 MG/ML VIAL IM ONE (21:19)
[2018-04-13] MEDS ORDERED: HALOPERIDOL LACTATE INJ 5 MG/1 ML VIAL IM ONE (21:19)
--- NOTE | 2018-04-13 21:56 | EKG REPORT ---
SEVERITY:- ABNORMAL ECG - SINUS RHYTHM CONSIDER RIGHT VENTRICULAR HYPERTROPHY BORDERLINE R WAVE PROGRESSION, ANTERIOR LEADS BORDERLINE T ABNORMALITIES, INFERIOR LEADS : Confirmed by: Carolyn Garsia MD 13-Apr-2018 21:55:41
[2018-04-13] MEDS ORDERED: DIAZEPAM INJ 10 MG/2 ML DISP.SYRIN IM ONE (22:57)
[2018-04-14 02:05] VITALS: BP 116/83
== END 2018-04-14 02:05 | disposition home or self-care (01) ==
LOC: ER 18:38
DX: R07.89 Other chest pain (principal); E87.5 Hyperkalemia; I50.9 Heart failure, unspecified; J44.9 Chronic obstructive pulmonary disease, unspecified; Z99.81 Dependence on supplemental oxygen; Z79.899 Other long term (current) drug therapy; I25.10 Atherosclerotic heart disease of native coronary artery without angina pectoris; I10 Essential (primary) hypertension; E11.9 Type 2 diabetes mellitus without complications
CPT/HCPCS: 93005; 99285; 96372; 36415; 82553; 82550; 85025; 80053; 84484; 71045; 93010; J3360; J1200; J1630; J2060

== ENCOUNTER 2018-04-15 16:41 | Inpatient (IN) | payer OTHER, MEDICARE ==
--- NOTE | 2018-04-15 17:57 | ER Document Report ---
ED Respiratory Problem - General Chief Complaint: Chest Tightness Stated Complaint: CHEST TIGHTNESS Time Seen by Provider: 04/15/18 17:40 Notes: This is a 62-year-old male admitted for evaluation of tightness in the chest. Long-standing history of congestive heart failure. Denies any chest pain. Denies any increased amount of swelling. Patient is currently at a assisted living facility. Will be going home tomorrow. TRAVEL OUTSIDE OF THE [place] IN LAST 30 DAYS: No - HPI Patient complains to provider of: CHF, Short of breath Onset: Yesterday Duration: Continuous Severity: None Pain Level: 0 - Related Data Allergies/Adverse Reactions: captopril [From Capoten] Allergy (Severe, Verified 03/31/18 02:20) Angioedema atorvastatin calcium [From Lipitor] Allergy (Intermediate, Verified 03/31/18 02: 20) Angioedema clopidogrel [From Plavix] Allergy (Verified 03/31/18 02:20) rosuvastatin [From Crestor] Allergy (Verified 03/31/18 02:20) simvastatin [From Zocor] Allergy (Verified 03/31/18 02:20) Angioedema Past Medical History - General Information source: Patient - Social History Smoking Status: Unknown if Ever Smoked Chew tobacco use (# tins/day): No Frequency of alcohol use: None Drug Abuse: None Lives with: Long Term Family History: Reviewed & Not Pertinent, CAD, DM, Hypertension, Thyroid Disfunction Patient has suicidal ideation: No Patient has homicidal ideation: No - Past Medical History Cardiac Medical History: Reports: Hx Congestive Heart Failure - Systolic with EF of 25-30% as of 2D echo in July 2017, Hx Coronary Artery Disease, Hx Heart Attack - 2008, Hx Hypercholesterolemia, Hx Hypertension Pulmonary Medical History: Reports: Hx Asthma, Hx Bronchitis, Hx COPD, Hx Sleep Apnea Neurological Medical History: Reports: Hx Cerebrovascular Accident - x 2. Denies: Hx Seizures Endocrine Medical History: Reports: Hx Diabetes Mellitus Type 1, Hx Diabetes Mellitus Type 2 Renal/ Medical History: Denies: Hx Peritoneal Dialysis Malignancy Medical History: GI Medical History: Reports: Hx Diverticulitis, Hx Gastroesophageal Reflux Disease Musculoskeletal Medical History: Reports Hx Arthritis, Reports Hx Musculoskeletal Deformity, Reports Hx Musculoskeletal Trauma Psychiatric Medical History: Reports: Hx Anxiety, Hx Post Traumatic Stress Disorder Denies: Hx Depression Infectious Medical History: Past Surgical History: Reports: Hx Abdominal Surgery - for diverticulitis, Hx Bowel Surgery - Colon resection due to diverticulitis, Hx Cardiac Catheterization, Hx Cardiac Surgery - 1984, ICD placement 2015, Hx Coronary Artery Bypass Graft, Hx Coronary Stent - 1984, Hx Thyroid Surgery, Other - AICD - Immunizations Immunizations up to date: Yes Hx Diphtheria, Pertussis, Tetanus Vaccination: Yes Hx Pneumococcal Vaccination: 05/26/10 Review of Systems - Review of Systems Notes: Constitutional: denies: Chills, Diaphoresis, Fever, Malaise, Weakness EENT: denies: Eye discharge, Blurred vision, Tearing, Double vision, Nose congestion, Nose discharge, Throat swelling, Mouth pain Cardiovascular: denies: Palpitations, Heart racing, Orthopnea, Dyspnea, Chest pain Respiratory: denies: Cough, Hurts to breathe, Wheezing, he does complain of tightness in the chest and shortness of breath. Gastrointestinal: denies: Abdominal pain, Diarrhea, Nausea, Vomiting, Black stools, bright red blood in stool Genitourinary: denies: Burning, Dysuria, Discharge, Frequency, Flank pain, Hematuria Musculoskeletal: denies: Joint pain, Joint swelling, Muscle pain, Muscle stiffness, back pain. Does complain of chronic lower extremity edema. Does complain of a abrasion on his right anterior miramontes where he got hit in the miramontes with a wheelchair. Hematologic/Lymphatic: denies: Anemia, Easy bleeding, Easy bruising, Blood clots Neurological/Psychological: denies: Confusion, Dementia, Depression, Loss of consciousness Skin: No lesions, no masses, no skin breakdown, no abscesses Physical Exam - Vital signs Vitals: Pulse Ox 96 04/15/18 17:41 Interpretation: Normal - General General appearance: Appears well, Alert - HEENT Head: Normocephalic, Atraumatic Eyes: Normal Pupils: PERRL - Respiratory Respiratory status: No respiratory distress Chest status: Nontender Breath sounds: Rales Chest palpation: Normal - Cardiovascular Rhythm: Regular Heart sounds: Normal auscultation Murmur: No - Abdominal Inspection: Normal Distension: No distension Bowel sounds: Normal Tenderness: Nontender Organomegaly: No organomegaly - Back Back: Normal, Nontender - Extremities General upper extremity: Normal inspection, Nontender, Normal color, Normal ROM , Normal temperature General lower extremity: Normal inspection, Nontender, Edema, Normal color, Normal ROM, Normal temperature. No: Kadi's sign - Neurological Neuro grossly intact: Yes Cognition: Normal Orientation: AAOx4 [place] Coma Scale Eye Opening: Spontaneous [place] Coma Scale Verbal: Oriented [place] Coma Scale Motor: Obeys Commands [place] Coma Scale Total: 15 Speech: Expressive aphasia Motor strength normal: LUE, RUE, LLE, RLE Sensory: Normal - Psychological Associated symptoms: Normal affect, Normal mood - Skin Skin Temperature: Warm Skin Moisture: Dry Skin Color: Normal Course - Re-evaluation Re-evalutation: 04/15/18 19:16 This is a 62-year-old male with worsening congestive heart failure, worsening pleural effusions and a slightly elevated cardiac troponin. Patient is currently at a [facility] from a previous discharge from the hospital. They do not feel they can take care of him. I am concerned that his symptoms are getting worse. Does have significant amount of lower extremity edema. Will consult with hospitalist for admission at this time. Will start IV Lasix and will also given breathing treatment. Patient is comfortable with this plan although his troponin is elevated appears that it is always elevate. His BNP is actually quite high but it is a little bit lower than before but his chest x- ray according to radiology is worse. Patient is not having any active chest pain at this time. There is some concern by the radiologist of pneumonia so blood cultures have been ordered however unlikely that he does have a pneumonia. 04/15/18 19:17 04/15/18 19:17 Laboratory 04/15/18 04/15/18 04/15/18 18:15 18:15 18:15 WBC 6.4 RBC 4.43 Hgb 12.5 L Hct 38.2 MCV 86 MCH 28.3 MCHC 32.8 RDW 16.2 H Plt Count 233 Seg Neutrophils % 58.0 Lymphocytes % 19.9 Monocytes % 17.8 H Eosinophils % 3.1 Basophils % 1.2 Absolute Neutrophils 3.7 Absolute Lymphocytes 1.3 Absolute Monocytes 1.1 Absolute Eosinophils 0.2 Absolute Basophils 0.1 Sodium 142.7 Potassium 5.2 H Chloride 101 Carbon Dioxide 31 H Anion Gap 11 BUN 18 Creatinine 1.21 Est GFR ( Amer) > 60 Est GFR (Non-Af Amer) > 60 Glucose 98 Calcium 9.5 Total Bilirubin 1.2 Direct Bilirubin 0.6 H Neonat Total Bilirubin Not Reportable Neonat Direct Bilirubin Not Reportable Neonat Indirect Bili Not Reportable AST 27 ALT 14 L Alkaline Phosphatase 71 Creatine Kinase 255 H CK-MB (CK-2) 2.33 Troponin I 0.056 NT-Pro-B Natriuret Pep Total Protein 7.4 Albumin 4.4 04/15/18 18:15 WBC RBC Hgb Hct MCV MCH MCHC RDW Plt Count Seg Neutrophils % Lymphocytes % Monocytes % Eosinophils % Basophils % Absolute Neutrophils Absolute Lymphocytes Absolute Monocytes Absolute Eosinophils Absolute Basophils Sodium Potassium Chloride Carbon Dioxide Anion Gap BUN Creatinine Est GFR ( Amer) Est GFR (Non-Af Amer) Glucose Calcium Total Bilirubin Direct Bilirubin Neonat Total Bilirubin Neonat Direct Bilirubin Neonat Indirect Bili AST ALT Alkaline Phosphatase Creatine Kinase CK-MB (CK-2) Troponin I NT-Pro-B Natriuret Pep 12304 H Total Protein Albumin Chest X-Ray 04/15/18 17:41 IMPRESSION: Cardiomegaly. Cannot exclude mild pulmonary edema. Significant bilateral pleural effusions that appear to have increased since the earlier study. Cannot exclude right lower lobe pneumonia. - Vital Signs Vital signs: Temp Pulse Resp BP Pulse Ox 96 04/15/18 17:41 - Laboratory Result Diagrams: 04/15/18 18:15 04/15/18 18:15 Laboratory results interpreted by me: 04/15/18 04/15/18 04/15/18 18:15 18:15 18:15 Hgb 12.5 L RDW 16.2 H Monocytes % 17.8 H Potassium 5.2 H Carbon Dioxide 31 H Direct Bilirubin 0.6 H ALT 14 L Creatine Kinase 255 H NT-Pro-B Natriuret Pep 31216 H - EKG Interpretation by Al EKG shows normal: Sinus rhythm, [place], Intervals, QRS Complexes, ST-T Waves When compared to previous EKG there are: No significant change Discharge - Discharge Clinical Impression: Congestive heart failure (CHF) Qualifiers: Heart failure type: unspecified Heart failure chronicity: chronic Qualified Code(s): I50.9 - Heart failure, unspecified Condition: Fair Disposition: ADMITTED INPATIENT Admitting Provider: Hospitalist - [facility] Admitted: Telemetry Referrals: RICK ROBISON MD [Primary Care Provider] - Follow up as needed
--- NOTE | 2018-04-15 18:14 | RADIOLOGY REPORT (SQ) ---
EXAM DESCRIPTION: CHEST SINGLE VIEW COMPLETED DATE/TIME: 04/15/2018 5:58 pm REASON FOR STUDY: cp COMPARISON: 04/13/2018 EXAM PARAMETERS: NUMBER OF VIEWS: One view. TECHNIQUE: Single frontal radiographic view of the chest acquired. RADIATION DOSE: NA LIMITATIONS: None. FINDINGS: LUNGS AND PLEURA: Bilateral pleural effusions. Opacification in the right lower lung fiel d. MEDIASTINUM AND HILAR STRUCTURES: No masses. Contour normal. HEART AND VASCULAR STRUCTURES: Cardiomegaly. Cannot exclude mild pulmonary edema. BONES: No acute findings. HARDWARE: Pacemaker/defibrillator. OTHER: No other significant finding. IMPRESSION: Cardiomegaly. Cannot exclude mild pulmonary edema. Significant bilateral pleural effus ions that appear to have increased since the earlier study. Cannot exclude right lower lobe pneumoni a. TECHNICAL DOCUMENTATION: JOB ID: [id number] [email or web address]- All Rights Reserved Reading location - IP/workstation name: [email or web address]
[2018-04-15 18:31] LABS: ABSOLUTE BASOPHILS # (AUTO) 0.1 10^3/uL (0.0-0.2); ABSOLUTE EOSINOPHILS # (AUTO) 0.2 10^3/uL (0.0-0.6); ABSOLUTE LYMPHOCYTES (AUTO) 1.3 10^3/uL (0.5-4.7); ABSOLUTE MONOCYTES (AUTO) 1.1 10^3/uL (0.1-1.4); ABSOLUTE NEUT (AUTO) 3.7 10^3/uL (1.7-8.2); BASOPHILS % (AUTO) 1.2 % (0-2); EOSINOPHILS % (AUTO) 3.1 % (0-6); HEMATOCRIT 38.2 % (37.9-51.0); HEMOGLOBIN 12.5 g/dL (13.5-17.0); LYMPHOCYTES % (AUTO) 19.9 % (13-45); MEAN CORPUSCULAR HEMOGLOBIN 28.3 pg (27.0-33.4); MEAN CORPUSCULAR HGB CONC 32.8 g/dL (32.0-36.0); MEAN CORPUSCULAR VOLUME 86 fl (80-97); MONOCYTES % (AUTO) 17.8 % (3-13); PLATELET COUNT 233 10^3/uL (150-450); RED BLOOD COUNT 4.43 10^6/uL (4.35-5.55); RED CELL DISTRIBUTION WIDTH 16.2 % (11.5-14.0); TOTAL CELLS COUNTED % (AUTO) 100 %; WHITE BLOOD COUNT 6.4 10^3/uL (4.0-10.5)
[2018-04-15] MEDS ORDERED: ALBUTEROL SULFATE 0.083% NEB 2.5 MG/3 ML AMPUL NEB ONE (18:31)
[2018-04-15 18:49] LABS: ALANINE AMINOTRANSFERASE 14 U/L (21-72); ALBUMIN 4.4 g/dL (3.5-5.0); ALKALINE PHOSPHATASE 71 U/L (38-126); ANION GAP 11 (5-19); ASPARTATE AMINO TRANSFERASE 27 U/L (17-59); BILIRUBIN,DIRECT 0.6 mg/dL (0.0-0.4); BILIRUBIN,TOTAL 1.2 mg/dL (0.2-1.3); BLOOD UREA NITROGEN 18 mg/dL (7-20); CALCIUM 9.5 mg/dL (8.4-10.2); CARBON DIOXIDE 31 mmol/L (22-30); CHLORIDE 101 mmol/L (98-107); CREATINE KINASE 255 U/L (55-170); GLUCOSE 98 mg/dL (75-110); POTASSIUM 5.2 mmol/L (3.6-5.0); SODIUM 142.7 mmol/L (137-145); TOTAL PROTEIN 7.4 g/dL (6.3-8.2)
[2018-04-15 19:00] LABS: CREATINE KINASE MB 2.33 ng/mL (<4.55)
[2018-04-15 19:03] LABS: TROPONIN I 0.056 ng/mL
[2018-04-15] MEDS ORDERED: FUROSEMIDE INJ/PF 40 MG/4 ML SDV IV ONE (19:06)
[2018-04-15] MEDS ORDERED: ALBUTEROL SULFATE HFA (90 MCG/PUFF) 8 GM MDI (1 MDI/ER DISP) IH PRN (19:27)
[2018-04-15] MEDS ORDERED: ALPRAZOLAM 0.5 MG TABLET PO PRN (19:27)
[2018-04-15] MEDS ORDERED: (PENDING PHARMACY ID) (Docusate Calcium [Docusate Calcium] 240 MG) PO PRN (19:27)
[2018-04-15] MEDS ORDERED: DEXTROSE 50%-WATER 25 GM/50 ML DISP.SYRIN IV PRN ×2 (19:28)
[2018-04-15] MEDS ORDERED: INSULIN LISPRO 100 UNIT/ML 3 ML VIAL SUBCUT PRN (19:28)
[2018-04-15] MEDS ORDERED: MAGNESIUM HYDROXIDE SUSP 30 ML UDCUP PO PRN (19:28)
[2018-04-15] MEDS ORDERED: DEXTROSE 40% GEL 15 GM TUBE PO PRN ×2 (19:28)
[2018-04-15] MEDS ORDERED: GLUCAGON,HUMAN RECOMB 1 MG INJ IM PRN (19:28)
[2018-04-15] MEDS: IPRATROPIUM/ALBUTEROL 0.5-2.5 MG/3 ML AMPUL NEB SCH (20:59)
[2018-04-15] MEDS ORDERED: (PENDING PHARMACY ID) (Lactulose [Constulose 10 Gm/15 Ml Oral Solution] 10 ML) PO SCH (22:00)
[2018-04-15] MEDS: HEPARIN SOD (PORCINE) 5,000 UNIT/ML 1 ML SYRINGE SUBCUT SCH (22:53)
--- NOTE | 2018-04-16 04:18 | PDOC H&P ---
History of Present Illness Admission Date/PCP: 04/15/18 19:38 RICK ROBISON MD Patient complains of: Shortness of breath History of Present Illness: ALEX KNIGHT is a 62 year old male who is a long-term longterm resident with a past medical history of severe pulmonary hypertension, obstructive sleep apnea, congestive heart failure with an ejection fraction of 25%, CVA with expressive aphasia, COPD, anxiety and posttraumatic stress disorder. Patient has had 22 ER visits over the last 12 months congestive heart failure exacerbation secondary to refusal of therapy. Patient is referred by longterm staff finding him short of breath. In the emergency room he is found to have acute congestive heart failure exacerbation with a BNP of greater than 10,000, pulmonary edema and bilateral pleural effusions. He is given 80 of Lasix and referred to the hospitalist for admission. He denies chest pain palpitations nausea vomiting or diaphoresis. He has already refused medications and BiPAP this evening. Past Medical History Cardiac Medical History: Reports: Congestive Heart Failure - Systolic with EF of 25-30% as of 2D echo in July 2017, Coronary Artery Disease, Myocardial Infarction - 2008, Hyperlipidema, Hypertension Pulmonary Medical History: Reports: Asthma, Bronchitis, Chronic Obstructive Pulmonary Disease (COPD), Sleep Apnea Neurological Medical History: Denies: Seizures Endocrine Medical History: Reports: Diabetes Mellitus Type 1, Diabetes Mellitus Type 2 Renal/ Medical History: Malignancy Medical History: Denies: Breast Cancer, Cervical Cancer, Ovarian Cancer GI Medical History: Reports: Diverticulitis, Gastroesophageal Reflux Disease Musculoskeltal Medical History: Reports: Arthritis Psychiatric Medical History: Reports: Post Traumatic Stress Disorder Denies: Depression Hematology: Reports: Anemia Denies: Hemophilia, Sickle Cell Disease - sickle cell trait Infectious Medical History: Past Surgical History Past Surgical History: Reports: Cardiac Catheterization, Coronary Artery Bypass Graft, Coronary Stent - 1984, Other - AICD Social History Information Source: Patient, Emergency Med Personnel, COUNT INCLUDES [facility] Records Lives with: Intermediate Smoking Status: Unknown if Ever Smoked Frequency of Alcohol Use: None Hx Recreational Drug Use: No Drugs: None Hx Prescription Drug Abuse: No - Advance Directive Resuscitation Status: Full Code Family History Family History: Reviewed & Not Pertinent, CAD, DM, Hypertension, Thyroid Disfunction Parental Family History Reviewed: No Children Family History Reviewed: No Sibling(s) Family History Reviewed.: No Medication/Allergy Home Medications: Albuterol Sulfate [Proair HFA] 1 puff IH Q6HP PRN 03/31/18 Aspirin [Aspirin 81 mg Chewable Tablet] 81 mg PO DAILY 03/31/18 Cyclosporine 0.05% Oph Emulsio [Restasis 0.05% Oph Emulsion Pf 0.4 ml] 1 drop OU BID 03/31/18 Docusate Calcium 240 mg PO DAILYP PRN 03/31/18 Ganciclovir [Zirgan] 1 drop OD 5XD 03/31/18 Lactulose [Constulose 10 gm/15 mL Oral Solution] 10 ml PO QHS 03/31/18 Metformin HCl [Glucophage 500 mg Tablet] 500 mg PO BID 03/31/18 [place]-3 Fatty Acids/Fish Oil [Fish Oil 1,000 mg Capsule] 2,000 mg PO BID Digoxin [Lanoxin 0.125 mg Tablet] 0.125 mg PO DAILY 30 Days #30 tablet 04/02/18 Metoprolol Succinate [Toprol Xl 25 mg Tab.sr] 25 mg PO DAILY 30 Days #30 tab.sr.24h 04/02/18 Acetaminophen [Tylenol 325 mg Tablet] 650 mg PO Q4HP PRN 04/15/18 Lorazepam [Ativan 0.5 mg Tablet] 0.5 mg PO Q8HP PRN 04/15/18 Methenamine Hippurate [Methenamine Hippurate] 24 gm TOP BID 04/15/18 Allergies/Adverse Reactions: captopril [From Capoten] Allergy (Severe, Verified 03/31/18 02:20) Angioedema atorvastatin calcium [From Lipitor] Allergy (Intermediate, Verified 03/31/18 02: 20) Angioedema clopidogrel [From Plavix] Allergy (Verified 03/31/18 02:20) rosuvastatin [From Crestor] Allergy (Verified 03/31/18 02:20) simvastatin [From Zocor] Allergy (Verified 03/31/18 02:20) Angioedema Review of Systems Constitutional: ABSENT: chills, fever(s), headache(s), weight gain, weight loss Eyes: ABSENT: visual disturbances Ears: ABSENT: hearing changes Cardiovascular: ABSENT: chest pain, dyspnea on exertion, edema, orthropnea, palpitations Respiratory: ABSENT: cough, hemoptysis Gastrointestinal: ABSENT: abdominal pain, constipation, diarrhea, hematemesis, hematochezia, nausea, vomiting Genitourinary: ABSENT: dysuria, hematuria Musculoskeletal: ABSENT: joint swelling Integumentary: ABSENT: rash, wounds Neurological: ABSENT: abnormal gait, abnormal speech, confusion, dizziness, focal weakness, syncope Psychiatric: ABSENT: anxiety, depression, homidical ideation, suicidal ideation Endocrine: ABSENT: cold intolerance, heat intolerance, polydipsia, polyuria Hematologic/Lymphatic: ABSENT: easy bleeding, easy bruising Physical Exam Vital Signs: Temp Pulse Resp BP Pulse Ox 98.7 F 95 18 140/90 H 96 04/15/18 22:41 04/15/18 22:41 04/15/18 22:41 04/15/18 22:41 04/16/18 00:24 Intake & Output 04/14/18 04/15/18 04/16/18 11:59 11:59 11:59 Weight 82 kg General appearance: PRESENT: cooperative, mild distress, obese Head exam: PRESENT: atraumatic, normocephalic Eye exam: PRESENT: conjunctiva pink, EOMI, PERRLA. ABSENT: scleral icterus Ear exam: PRESENT: normal external ear exam Mouth exam: PRESENT: moist, tongue midline Neck exam: ABSENT: carotid bruit, JVD, lymphadenopathy, thyromegaly Respiratory exam: PRESENT: accessory muscle use, crackles, decreased breath sounds, symmetrical, tachypnea. ABSENT: rales, rhonchi, wheezes Cardiovascular exam: PRESENT: RRR. ABSENT: diastolic murmur, rubs, systolic murmur Pulses: PRESENT: normal dorsalis pedis pul Vascular exam: PRESENT: normal capillary refill GI/Abdominal exam: PRESENT: normal bowel sounds, soft. ABSENT: distended, guarding, mass, organolmegaly, rebound, tenderness Rectal exam: PRESENT: deferred Extremities exam: PRESENT: full ROM, pedal edema, +2 edema. ABSENT: calf tenderness, clubbing Neurological exam: PRESENT: alert, awake, oriented to person, oriented to place , oriented to time, oriented to situation, CN II-XII grossly intact. ABSENT: motor sensory deficit Psychiatric exam: PRESENT: anxious Skin exam: PRESENT: dry, intact, warm. ABSENT: cyanosis, rash Results Impressions: Chest X-Ray 04/15/18 17:41 IMPRESSION: Cardiomegaly. Cannot exclude mild pulmonary edema. Significant bilateral pleural effusions that appear to have increased since the earlier study. Cannot exclude right lower lobe pneumonia. Assessment & Plan - Diagnosis (1) Congestive heart failure Qualifiers: Heart failure type: unspecified Heart failure chronicity: chronic Qualified Code(s): I50.9 - Heart failure, unspecified Is this a current diagnosis for this admission?: Yes Plan: CHF care set, optimize blood pressure, loop diuretic and nitrates, BiPAP ordered and education (2) COPD (chronic obstructive pulmonary disease) Is this a current diagnosis for this admission?: Yes Plan: Albuterol and Atrovent ordered (3) Noncompliance Is this a current diagnosis for this admission?: Yes Plan: Education and mental health consult given his history of 22 ER presentations in the last 12 months including refusal of medications and therapy while hospitalized (4) VIOLETA (obstructive sleep apnea) Is this a current diagnosis for this admission?: Yes Plan: BiPAP ordered. - Time Time Spent: 50 to 70 Minutes - Inpatient Certification Medical Necessity: Need Close Monitoring Due to Risk of Patient Decompensation
[2018-04-16] MEDS: HEPARIN SOD (PORCINE) 5,000 UNIT/ML 1 ML SYRINGE SUBCUT SCH ×3 (06:40→22:08)
[2018-04-16 06:59] LABS: ABSOLUTE BASOPHILS # (AUTO) 0.1 10^3/uL (0.0-0.2); ABSOLUTE EOSINOPHILS # (AUTO) 0.2 10^3/uL (0.0-0.6); ABSOLUTE LYMPHOCYTES (AUTO) 1.1 10^3/uL (0.5-4.7); ABSOLUTE MONOCYTES (AUTO) 0.9 10^3/uL (0.1-1.4); ABSOLUTE NEUT (AUTO) 2.5 10^3/uL (1.7-8.2); BASOPHILS % (AUTO) 1.1 % (0-2); EOSINOPHILS % (AUTO) 4.3 % (0-6); HEMATOCRIT 38.1 % (37.9-51.0); HEMOGLOBIN 12.4 g/dL (13.5-17.0); LYMPHOCYTES % (AUTO) 23.6 % (13-45); MEAN CORPUSCULAR HEMOGLOBIN 27.9 pg (27.0-33.4); MEAN CORPUSCULAR HGB CONC 32.6 g/dL (32.0-36.0); MEAN CORPUSCULAR VOLUME 86 fl (80-97); MONOCYTES % (AUTO) 18.7 % (3-13); PLATELET COUNT 208 10^3/uL (150-450); RED BLOOD COUNT 4.44 10^6/uL (4.35-5.55); RED CELL DISTRIBUTION WIDTH 16.3 % (11.5-14.0); SEGMENTED NEUTROPHILS % (AUTO) 52.3 % (42-78); TOTAL CELLS COUNTED % (AUTO) 100 %; WHITE BLOOD COUNT 4.8 10^3/uL (4.0-10.5)
[2018-04-16 07:18] LABS: ANION GAP 12 (5-19); BLOOD UREA NITROGEN 19 mg/dL (7-20); CALCIUM 9.4 mg/dL (8.4-10.2); CARBON DIOXIDE 33 mmol/L (22-30); CHLORIDE 99 mmol/L (98-107); CREATINE KINASE 186 U/L (55-170); GLUCOSE 94 mg/dL (75-110)
[2018-04-16 07:31] LABS: CREATINE KINASE MB 2.24 ng/mL (<4.55); TROPONIN I 0.063 ng/mL
[2018-04-16] MEDS: IPRATROPIUM/ALBUTEROL 0.5-2.5 MG/3 ML AMPUL NEB SCH ×3 (08:16→20:27)
--- NOTE | 2018-04-16 09:38 | EKG REPORT ---
SEVERITY:- ABNORMAL ECG - SINUS TACHYCARDIA PROBABLE LEFT ATRIAL ABNORMALITY CONSIDER RIGHT VENTRICULAR HYPERTROPHY CONSIDER ANTERIOR INFARCT BORDERLINE T ABNORMALITIES, INFERIOR LEADS : Confirmed by: Carolyn Garsia MD 16-Apr-2018 09:37:21
[2018-04-16] MEDS ORDERED: (PENDING PHARMACY ID) (Ferrous Sulfate [Ferrous Sulfate] 324 MG) PO SCH (10:00)
[2018-04-16] MEDS: ASCORBIC ACID 500 MG TABLET PO SCH (10:24)
[2018-04-16] MEDS: METOPROLOL SUCCINATE 25 MG TAB.SR.24H PO SCH (10:24)
[2018-04-16] MEDS: ASPIRIN 81 MG TABLET, CHEWABLE PO SCH (10:24)
[2018-04-16] MEDS: DOCUSATE SODIUM 100 MG CAPSULE PO SCH ×2 (10:24→18:16)
[2018-04-16] MEDS: FERROUS SULFATE 325 MG TABLET PO SCH ×3 (10:25→17:56)
[2018-04-16] MEDS: FUROSEMIDE INJ/PF 40 MG/4 ML SDV IV SCH ×2 (10:25→18:16)
[2018-04-16] MEDS: ACETAMINOPHEN 325 MG TABLET PO PRN ×2 (10:30→21:56)
[2018-04-16] MEDS: CYCLOSPORINE 0.05% OPH EMULSIO 0.4 ML DROPERETTE OU SCH ×2 (10:44→18:16)
[2018-04-16] MEDS: DIGOXIN 0.125 MG TABLET PO SCH (11:35)
[2018-04-16] MEDS ORDERED: RISPERIDONE 0.25 MG TABLET PO PRN (12:38)
[2018-04-16 14:51] LABS: CREATINE KINASE MB 2.14 ng/mL (<4.55); TROPONIN I 0.055 ng/mL
--- NOTE | 2018-04-16 16:58 | PDOC PROGRESS REPORT ---
Subjective Progress Note for:: 04/16/18 Subjective:: The patient is a 62-year-old male with a past medical history of CHF (LVEF 25-30 %) CAD, [place], hyperlipidemia, hypertension, COPD, sleep apnea, CVA with expressive aphasia, diabetes, GERD, anxiety, and PTSD who was admitted 2017 from SNF for CHF exacerbation. The patient was seen on afternoon rounds. He was found sitting up to the chair home supplemental oxygen at 2 L/min. He is very difficult to understand but is able to communicate that he is feeling better than yesterday and denies pain or shortness of breath. ROS is otherwise limited secondary to expressive aphasia, however, the patient does appear comfortable and not in any acute distress. No concerns per nursing. Reason For Visit: CHF EXACERBATION Physical Exam Vital Signs: Temp Pulse Resp BP Pulse Ox 98.6 F 80 18 145/86 H 100 04/16/18 12:31 04/16/18 14:00 04/16/18 12:31 04/16/18 12:31 04/16/18 12:31 Intake & Output 04/15/18 04/16/18 04/17/18 06:59 06:59 06:59 Intake Total 384 Output Total 360 Balance 24 Weight 82 kg General appearance: PRESENT: no acute distress, obese, well-developed, well- nourished Head exam: PRESENT: atraumatic, normocephalic Eye exam: PRESENT: conjunctiva pink, EOMI, PERRLA. ABSENT: scleral icterus Ear exam: PRESENT: normal external ear exam Mouth exam: PRESENT: moist, tongue midline Neck exam: ABSENT: carotid bruit, JVD, lymphadenopathy, thyromegaly Respiratory exam: PRESENT: crackles, decreased breath sounds, symmetrical, tachypnea, other - Supplemental oxygen via nasal cannula. ABSENT: rales, rhonchi, wheezes Cardiovascular exam: PRESENT: RRR. ABSENT: diastolic murmur, rubs, systolic murmur Pulses: PRESENT: normal dorsalis pedis pul Vascular exam: PRESENT: normal capillary refill GI/Abdominal exam: PRESENT: normal bowel sounds, soft. ABSENT: distended, guarding, mass, organolmegaly, rebound, tenderness Rectal exam: PRESENT: deferred Extremities exam: PRESENT: full ROM, pedal edema, +1 edema. ABSENT: calf tenderness, clubbing Neurological exam: PRESENT: alert, awake, oriented to person, oriented to place , oriented to time, oriented to situation, CN II-XII grossly intact, aphasic - Expressive aphasia; very difficult to understand. ABSENT: motor sensory deficit Psychiatric exam: PRESENT: anxious, appropriate affect. ABSENT: homicidal ideation, suicidal ideation Skin exam: PRESENT: dry, intact, warm. ABSENT: cyanosis, rash Results Laboratory Results: 04/16/18 06:20 04/16/18 06:20 04/16/18 04/16/18 06:20 06:20 WBC 4.8 RBC 4.44 Hgb 12.4 L Hct 38.1 MCV 86 MCH 27.9 MCHC 32.6 RDW 16.3 H Plt Count 208 Seg Neutrophils % 52.3 Lymphocytes % 23.6 Monocytes % 18.7 H Eosinophils % 4.3 Basophils % 1.1 Absolute Neutrophils 2.5 Absolute Lymphocytes 1.1 Absolute Monocytes 0.9 Absolute Eosinophils 0.2 Absolute Basophils 0.1 Sodium 144.0 Potassium 5.0 Chloride 99 Carbon Dioxide 33 H Anion Gap 12 BUN 19 Creatinine 1.23 Est GFR ( Amer) > 60 Est GFR (Non-Af Amer) 59 L Glucose 94 Calcium 9.4 04/16/18 04/16/18 04/16/18 06:20 06:20 13:50 Creatine Kinase 186 H 133 CK-MB (CK-2) 2.24 Troponin I 0.063 04/16/18 13:50 Creatine Kinase CK-MB (CK-2) 2.14 Troponin I 0.055 Impressions: Chest X-Ray 04/15/18 17:41 IMPRESSION: Cardiomegaly. Cannot exclude mild pulmonary edema. Significant bilateral pleural effusions that appear to have increased since the earlier study. Cannot exclude right lower lobe pneumonia. Assessment & Plan - Diagnosis (1) Acute on chronic systolic heart failure, NYHA class 4 Is this a current diagnosis for this admission?: Yes Plan: The patient presented with chest discomfort and obviousFluid volume overload on exam. EKG revealed sinus rhythm without acute findings. Chest x-ray revealed cardiomegaly, significant bilateral pleural effusions, questionable mild pulmonary edema. ProBNP elevated>10k, this is actually decreased from previously. Echocardiogram from 11/2017 demonstrated an LVEF of 25% with moderate diastolic dysfunction, and severe pulmonary hypertension. He is admitted to the medical floor and continuous cardiac telemetry. His home dose metoprolol, digoxin, and daily aspirin are continued. He is being provided IV furosemide twice daily. Cardiac diet with daily weights and strict I&Os. (2) COPD (chronic obstructive pulmonary disease) Is this a current diagnosis for this admission?: Yes Plan: Stable and without exacerbation at this time. He is provided scheduled duo nebs twice daily with albuterol nebulizers as needed. Supplemental oxygen as needed to maintain oxygen saturations greater than 89%. BiPAP nightly for VIOLETA. (3) Coronary artery disease Qualifiers: Coronary Disease-Associated Artery/Lesion type: unspecified vessel or lesion type [place] vs. transplanted heart: [place] heart Associated angina: angina presence unspecified Qualified Code(s): I25.10 - Atherosclerotic heart disease of [place] coronary artery without angina pectoris Is this a current diagnosis for this admission?: Yes Plan: Patient denies active chest pain. EKG is negative for acute changes. Troponins are indeterminate but stable and at his baseline. Plan as above. (4) Type 2 diabetes mellitus Qualifiers: Diabetes mellitus group home insulin use: without oysterman use Diabetes mellitus complication status: with unspecified complications Qualified Code(s) : E11.8 - Type 2 diabetes mellitus with unspecified complications Is this a current diagnosis for this admission?: Yes Plan: Metformin is held while inpatient. He is placed on a cardiac/consistent carb diet. Accu-Cheks before meals and at bedtime with Humalog for sliding scale coverage. (5) VIOLETA (obstructive sleep apnea) Is this a current diagnosis for this admission?: Yes Plan: BiPAP nightly; encourage use. (6) Anxiety Is this a current diagnosis for this admission?: Yes Plan: Psychiatry has met with the patient and has made medication recommendations. Further recommendations, Xanax has been discontinued, patient has been placed on twice daily Depakote, twice daily BuSpar, with Risperdal twice daily as needed. (7) History of CVA (cerebrovascular accident) Is this a current diagnosis for this admission?: Yes Plan: History of CVA resulting in expressive aphasia. (8) Noncompliance Is this a current diagnosis for this admission?: Yes Plan: The patient has had 22 ER presentations over the previous year with 6 admissions. The patient is frequently noncompliant; has already refused medications and BiPAP this admission. Mental Health consultation has been placed; asked to assist with evaluating for underlying psychiatric disorders and to evaluate capacity for self determination. They have made recommendations for medication management of the patient's anxiety as outlined above. I spoke with the psychiatric screener today who stated that to move forward with capacity screening, we will need to obtain vision and auditory evaluations. Discharge planning is consulted. Palliative care is consulted. - Time Time Spent with patient: 15-24 minutes Medications reviewed and adjusted accordingly: Yes Anticipated discharge: SNF
[2018-04-16] MEDS: DIVALPROEX SODIUM 250 MG TABLET.DR PO SCH (18:16)
[2018-04-16] MEDS: BUSPIRONE HCL 10 MG TABLET PO SCH (21:56)
[2018-04-17] MEDS: HEPARIN SOD (PORCINE) 5,000 UNIT/ML 1 ML SYRINGE SUBCUT SCH ×2 (07:24→13:33)
[2018-04-17] MEDS: IPRATROPIUM/ALBUTEROL 0.5-2.5 MG/3 ML AMPUL NEB SCH (08:32)
[2018-04-17] MEDS: DOCUSATE SODIUM 100 MG CAPSULE PO SCH (10:50)
[2018-04-17] MEDS: DIGOXIN 0.125 MG TABLET PO SCH (10:52)
[2018-04-17] MEDS: ASPIRIN 81 MG TABLET, CHEWABLE PO SCH (10:52)
[2018-04-17] MEDS: METOPROLOL SUCCINATE 25 MG TAB.SR.24H PO SCH (10:52)
[2018-04-17] MEDS: ASCORBIC ACID 500 MG TABLET PO SCH (10:52)
[2018-04-17] MEDS: FUROSEMIDE INJ/PF 40 MG/4 ML SDV IV SCH (10:52)
[2018-04-17] MEDS: DIVALPROEX SODIUM 250 MG TABLET.DR PO SCH (10:53)
[2018-04-17] MEDS: ACETAMINOPHEN 325 MG TABLET PO PRN (10:53)
[2018-04-17] MEDS: FERROUS SULFATE 325 MG TABLET PO SCH ×2 (10:53→13:33)
[2018-04-17] MEDS: BUSPIRONE HCL 10 MG TABLET PO SCH ×2 (10:53→12:43)
[2018-04-17] MEDS: CYCLOSPORINE 0.05% OPH EMULSIO 0.4 ML DROPERETTE OU SCH (10:54)
[2018-04-17] MEDS ORDERED: ALBUTEROL SULFATE HFA (90 MCG/PUFF) 200 PUFF/8.5 GM MDI IH PRN (12:30)
--- NOTE | 2018-04-17 14:16 | PDOC TRANSFER SUMMARY ---
General - Admit/Disc Date/PCP Admission Date/Primary Care Provider: 04/15/18 19:38 RICK ROBISON MD Discharge Date: 04/17/18 - Discharge Diagnosis (1) Acute on chronic systolic heart failure, NYHA class 4 Is this a current diagnosis for this admission?: Yes Summary: Acute exacerbation has resolved; patient is now maintaining oxygen saturations on room air, dependent edema has resolved, and he has clear lung sounds on exam. The patient presented with chest discomfort and obvious fluid volume overload on exam. EKG revealed sinus rhythm without acute findings. Chest x-ray revealed cardiomegaly, significant bilateral pleural effusions, questionable mild pulmonary edema. ProBNP elevated>10k, this is actually decreased from previously. Echocardiogram from 11/2017 demonstrated an LVEF of 25% with moderate diastolic dysfunction, and severe pulmonary hypertension. He was admitted to the medical floor on continuous cardiac telemetry. His home dose metoprolol, digoxin, and daily aspirin were continued. He was provided IV furosemide twice daily with excellent diuresis subsequently he is edema, dyspnea, and hypoxia resolved. He is recommended to continue his home medication regiment with the addition of Lasix 10 mg daily. Further recommend he continue a cardiac diet with daily weights; notify PCP of any weight gain greater than 2 pounds overnight for further Lasix dose adjustments. (2) COPD (chronic obstructive pulmonary disease) Is this a current diagnosis for this admission?: Yes Summary: Stable and without exacerbation. (3) Coronary artery disease Is this a current diagnosis for this admission?: Yes Summary: Patient denies active chest pain. EKG is negative for acute changes. Serial troponins were monitored x 3; indeterminate but stable and at his baseline. (4) Type 2 diabetes mellitus Is this a current diagnosis for this admission?: Yes Summary: Metformin was held while inpatient. He was placed on a cardiac/consistent carb diet. Accu-Cheks before meals and at bedtime with Humalog for sliding scale coverage. Patient will resume his home medication regimen upon discharge. (5) VIOLETA (obstructive sleep apnea) Is this a current diagnosis for this admission?: Yes (6) Anxiety Is this a current diagnosis for this admission?: Yes Summary: Psychiatry has met with the patient and has made medication recommendations. Further recommendations, Xanax has been discontinued, patient has been placed on twice daily Depakote, twice daily BuSpar, with Risperdal twice daily as needed. They recommend the patient have a routine eye exam and audiometry completed. Recommend follow-up with mental health provider within 4-6 weeks. (7) History of CVA (cerebrovascular accident) Is this a current diagnosis for this admission?: Yes (8) Noncompliance Is this a current diagnosis for this admission?: Yes Summary: The patient has had 22 ER presentations over the previous year with 6 admissions. The patient is frequently noncompliant; has refused multiple medications and BiPAP this admission. Mental Health consultation was been placed; asked to assist with evaluating for underlying psychiatric disorders and to evaluate capacity for self determination. They have made recommendations for medication management of the patient's anxiety as outlined above. They also recommend vision and hearing evaluations as these will be required prior to any capacity determinations. - Additional Information Resuscitation Status: Full Code Discharge Diet: Cardiac Discharge Activity: Activity As Tolerated, Balance Activity w/Rest, Weigh Daily Prescriptions: Buspirone HCl [Buspar 10 mg Tablet] 10 mg PO Q12 #60 tablet Divalproex Sodium [Depakote] 250 mg PO BID #60 tablet. Furosemide [Lasix] 10 mg PO QAM #30 tablet Risperidone [Risperdal 0.25 mg Tablet] 0.25 mg PO BIDP PRN #14 tablet PRN Reason: Home Medications: Albuterol Sulfate [Proair HFA] 1 puff IH Q6HP PRN 03/31/18 Aspirin [Aspirin 81 mg Chewable Tablet] 81 mg PO DAILY 03/31/18 Cyclosporine 0.05% Oph Emulsio [Restasis 0.05% Oph Emulsion Pf 0.4 ml] 1 drop OU BID 03/31/18 Docusate Calcium 240 mg PO DAILYP PRN 03/31/18 Ganciclovir [Zirgan] 1 drop OD 5XD 03/31/18 Lactulose [Constulose 10 gm/15 mL Oral Solution] 10 ml PO QHS 03/31/18 Metformin HCl [Glucophage 500 mg Tablet] 500 mg PO BID 03/31/18 [place]-3 Fatty Acids/Fish Oil [Fish Oil 1,000 mg Capsule] 2,000 mg PO BID Digoxin [Lanoxin 0.125 mg Tablet] 0.125 mg PO DAILY 30 Days #30 tablet 04/02/18 Metoprolol Succinate [Toprol Xl 25 mg Tab.sr] 25 mg PO DAILY 30 Days #30 tab.sr.24h 04/02/18 Acetaminophen [Tylenol 325 mg Tablet] 650 mg PO Q4HP PRN 04/15/18 Methenamine Hippurate [Methenamine Hippurate] 24 gm TOP BID 04/15/18 Acetaminophen [Tylenol 325 mg Tablet] 650 mg PO Q4HP PRN tablet 04/17/18 Ascorbic Acid [Vitamin C 500 mg Tablet] 500 mg PO DAILY tablet 04/17/18 Buspirone HCl [Buspar 10 mg Tablet] 10 mg PO Q12 #60 tablet 04/17/18 Divalproex Sodium [Depakote] 250 mg PO BID #60 tablet. 04/17/18 Ferrous Sulfate [Feosol 325 mg Tablet] 325 mg PO TID tablet 04/17/18 Furosemide [Lasix] 10 mg PO QAM #30 tablet 04/17/18 Risperidone [Risperdal 0.25 mg Tablet] 0.25 mg PO BIDP PRN #14 tablet 04/17/18 History of Present Illness Admission Date/PCP: 04/15/18 19:38 RICK ROBISON MD History of Present Illness: Per H&P by Dr. Lewis: ALEX KNIGHT is a 62 year old male who is a long- term retirement resident with a past medical history of severe pulmonary hypertension, obstructive sleep apnea, congestive heart failure with an ejection fraction of 25%, CVA with expressive aphasia, COPD, anxiety and posttraumatic stress disorder. Patient has had 22 ER visits over the last 12 months congestive heart failure exacerbation secondary to refusal of therapy. Patient is referred by retirement staff finding him short of breath. In the emergency room he is found to have acute congestive heart failure exacerbation with a BNP of greater than 10,000, pulmonary edema and bilateral pleural effusions. He is given 80 of Lasix and referred to the hospitalist for admission. He denies chest pain palpitations nausea vomiting or diaphoresis. He has already refused medications and BiPAP this evening. Hospital Course Hospital Course: At time of discharge, the patient is in stable condition, maintaining oxygen saturations on room air, and is asymptomatic. He is provided prescriptions for BuSpar, Depakote, risperidone, and Lasix. Recommend he follow-up with his primary care provider within 1 week. Recommend the patient obtain outpatient vision and hearing screenings within the next month. Should follow-up with mental health provider within the next 4-6 weeks, or may be seen by Dr. Sahni's office to complete capacity screening and to further manage anxiety/PTSD. Return to the emergency department as needed for any concerning symptoms. Physical Exam Vital Signs: Temp Pulse Resp BP Pulse Ox 98.4 F 91 18 129/94 H 97 04/17/18 07:48 04/17/18 08:51 04/17/18 08:51 04/17/18 07:48 04/17/18 08:51 Intake & Output 04/16/18 04/17/18 04/18/18 06:59 06:59 06:59 Intake Total 502 Output Total 480 Balance 22 Weight 82 kg 83.2 kg Results Laboratory Results: 04/16/18 06:20 04/16/18 06:20 04/16/18 04/16/18 04/16/18 06:20 06:20 13:50 Creatine Kinase 186 H 133 CK-MB (CK-2) 2.24 Troponin I 0.063 04/16/18 13:50 Creatine Kinase CK-MB (CK-2) 2.14 Troponin I 0.055 Impressions: Chest X-Ray 04/15/18 17:41 IMPRESSION: Cardiomegaly. Cannot exclude mild pulmonary edema. Significant bilateral pleural effusions that appear to have increased since the earlier study. Cannot exclude right lower lobe pneumonia. Transfer Plan - Disposition Transfer Plan: Discharge to [facility] for [facility] rehabilitation/care. - Time Spent with Patient Time spent with patient: Less than 30 Minutes Qualifiers - * PATIENT BEING DISCHARGED WITH ANY OF THE FOLLOWING DIAGNOSIS: Heart Failure HF Pt being discharged on ACEI for LVEF less than 40%?: No Reason(s) for not prescribing ACEI:: Drug allergy HF Pt being discharged on ARBS for LVEF less than 40%?: No Reason(s) for not prescribing ARBS:: Propensity to reaction HF Pt with Afib discharged with Warfarin?: No Reason(s) for not prescribing Warfarin:: Not indicated HF Pt discharged on evidence-based Beta Makenna:: Yes Plan Discharge Plan: Discharge to [facility] for short-term rehabilitation/care. Follow up with primary care provider within 1 week. Time Spent: Less than 30 Minutes
[2018-04-17 15:02] VITALS: BP 130/86
== END 2018-04-17 16:17 | DRG 293 ==
LOC: ER 16:41 → EH 19:38 → 5 21:47
PROVIDERS: ADMIT Internal Medicine; ATTEND Internal Medicine
PROC: 5A09357 Assistance with Respiratory Ventilation, Less than 24 Consecutive Hours, Continuous Positive Airway Pressure (ICD-10-PCS; principal; 2018-04-15)
DX: I11.0 Hypertensive heart disease with heart failure (principal); I50.23 Acute on chronic systolic (congestive) heart failure; I27.20 Pulmonary hypertension, unspecified; G47.33 Obstructive sleep apnea (adult) (pediatric); I69.320 Aphasia following cerebral infarction; F41.9 Anxiety disorder, unspecified; J44.9 Chronic obstructive pulmonary disease, unspecified; F43.10 Post-traumatic stress disorder, unspecified; E11.9 Type 2 diabetes mellitus without complications; K21.9 Gastro-esophageal reflux disease without esophagitis; D64.9 Anemia, unspecified; I25.10 Atherosclerotic heart disease of native coronary artery without angina pectoris; E78.5 Hyperlipidemia, unspecified; Z95.5 Presence of coronary angioplasty implant and graft; Z79.82 Long term (current) use of aspirin; Z82.49 Family history of ischemic heart disease and other diseases of the circulatory system; Z83.3 Family history of diabetes mellitus; Z95.810 Presence of automatic (implantable) cardiac defibrillator; Z79.84 Long term (current) use of oral hypoglycemic drugs; Z88.8 Allergy status to other drugs, medicaments and biological substances; Z91.19 Patient's noncompliance with other medical treatment and regimen; I25.2 Old myocardial infarction; Z79.51 Long term (current) use of inhaled steroids; Z79.899 Other long term (current) drug therapy
CPT/HCPCS: 36415; 71045; 80048; 80053; 80162; 82550; 82553; 82962; 83880; 84484; 85025; 87040; 93005; 93010; 94640; 99285; J1940; J3490; J7620

== ENCOUNTER 2018-04-25 12:12 | Emergency (ER) | payer OTHER, MEDICARE ==
[2018-04-25] MEDS ORDERED: IPRATROPIUM/ALBUTEROL 0.5-2.5 MG/3 ML AMPUL NEB ONE (13:21)
--- NOTE | 2018-04-25 14:31 | ER Document Report ---
ED General - General Chief Complaint: Shortness Of Breath Stated Complaint: Shortness of breath Time Seen by Provider: 04/25/18 13:16 Mode of Arrival: Ambulatory Information source: [facility], [facility] Records Notes: Patient is a 62-year-old male comes emergency room complaining of shortness of breath. Patient has had a stroke in the past and is a phasic still. He has a difficult time communicating with people and he does so at the top of his lungs. Physical exam I had help with 1 of the techs who understood him and his been with him before. We were able to determine the patient was not having chest pain that he was only here for his congestive heart failure and shortness of breath. He is stated that he woke up this morning with it being short of breath this morning. TRAVEL OUTSIDE OF THE [place] IN LAST 30 DAYS: No - HPI Onset: This morning Onset/Duration: Constant, Worse Severity: Mild Pain Level: 2 Exacerbated by: Movement Relieved by: Denies Similar symptoms previously: Yes Recently seen / treated by doctor: Yes - Related Data Allergies/Adverse Reactions: captopril [From Capoten] Allergy (Severe, Verified 03/31/18 02:20) Angioedema atorvastatin calcium [From Lipitor] Allergy (Intermediate, Verified 03/31/18 02: 20) Angioedema clopidogrel [From Plavix] Allergy (Verified 03/31/18 02:20) rosuvastatin [From Crestor] Allergy (Verified 03/31/18 02:20) simvastatin [From Zocor] Allergy (Verified 03/31/18 02:20) Angioedema Past Medical History - General Information source: Patient - Social History Smoking Status: Unknown if Ever Smoked Cigarette use (# per day): No Chew tobacco use (# tins/day): No Smoking Education Provided: No Frequency of alcohol use: None Drug Abuse: None Family History: Reviewed & Not Pertinent, CAD, DM, Hypertension, Thyroid Disfunction Patient has suicidal ideation: No Patient has homicidal ideation: No - Past Medical History Cardiac Medical History: Reports: Hx Congestive Heart Failure - Systolic with EF of 25-30% as of 2D echo in July 2017, Hx Coronary Artery Disease, Hx Heart Attack - 2009, Hx Hypercholesterolemia, Hx Hypertension Pulmonary Medical History: Reports: Hx Asthma, Hx Bronchitis, Hx COPD, Hx Sleep Apnea Neurological Medical History: Reports: Hx Cerebrovascular Accident - x 2. Denies: Hx Seizures Endocrine Medical History: Reports: Hx Diabetes Mellitus Type 1, Hx Diabetes Mellitus Type 2 Renal/ Medical History: Denies: Hx Peritoneal Dialysis Malignancy Medical History: GI Medical History: Reports: Hx Diverticulitis, Hx Gastroesophageal Reflux Disease Musculoskeletal Medical History: Reports Hx Arthritis, Reports Hx Musculoskeletal Deformity, Reports Hx Musculoskeletal Trauma Psychiatric Medical History: Reports: Hx Anxiety, Hx Post Traumatic Stress Disorder Denies: Hx Depression Infectious Medical History: Past Surgical History: Reports: Hx Abdominal Surgery - for diverticulitis, Hx Bowel Surgery - Colon resection due to diverticulitis, Hx Cardiac Catheterization, Hx Cardiac Surgery - 1984, ICD placement 2015, Hx Coronary Artery Bypass Graft, Hx Coronary Stent - 1984, Hx Thyroid Surgery, Other - AICD - Immunizations Immunizations up to date: Yes Hx Diphtheria, Pertussis, Tetanus Vaccination: Yes Hx Pneumococcal Vaccination: 05/26/10 Review of Systems - Review of Systems Constitutional: No symptoms reported EENT: No symptoms reported Cardiovascular: No symptoms reported Respiratory: See HPI, Short of breath, Wheezing Gastrointestinal: No symptoms reported Genitourinary: No symptoms reported Male Genitourinary: No symptoms reported Musculoskeletal: No symptoms reported Skin: No symptoms reported Hematologic/Lymphatic: No symptoms reported Neurological/Psychological: No symptoms reported -: Yes All other systems reviewed and negative Physical Exam - Vital signs Vitals: Pulse Ox 100 04/25/18 12:57 - Notes Notes: PHYSICAL EXAMINATION: GENERAL: Patient is a well-nourished well-developed 62-year-old male who is in no apparent distress at the time of physical exam. He is however focal and demanding. HEAD: Atraumatic, normocephalic. EYES: Pupils equal round and reactive to light, extraocular movements intact, sclera anicteric, conjunctiva are normal. NECK: Normal range of motion, supple LUNGS: Auscultation patient's lungs show he has bilateral breath sounds with breath sounds decreased throughout with fine rales heard in the bases bilaterally. There is an end expiratory wheeze also noted. There is no rhonchi heard at this time. HEART: Regular rate and rhythm without murmurs ABDOMEN: Examination of the abdomen shows patient has bowel sounds in all 4 quads. He is nontender to palpation or percussion in any other quads. Musculoskeletal: Normal range of motion, patient does show bilateral lower extremity edema very difficult to gauge if this is better or worse is patient's communication skills are not refined enough for me to understand at this time. He does indicate that they are at least normal size for him with the swelling. He does have good pulses in the distal dorsalis pedis. Good cap refill in the nailbeds of the toes. Patient has full range of motion of all lower extremities. NEUROLOGICAL: Patient has a chronic aphasia from a previous CVA. He has, normal gait. PSYCH: Patient is aggressive, unruly, loud. He will not allow you to attempt to converse with him he has to get the point in. SKIN: Warm, Dry, normal turgor, no rashes or lesions noted. Course - Re-evaluation Re-evalutation: 04/25/18 14:42 Since my original evaluation patient in his room 16 at which time I had 1 of the techs with me who understood him. We had a logical conversation and he informed me of his increasing shortness of breath since this morning he lives in a facility that he is quoted same to the check he does not like and that is why he comes here. Regardless of that workup was necessary he has bilateral lower extremity edema he has history of CHF and oxygen dependency. He also was wheezing. I told him that I was getting a chest x-ray and lab work done and he agreed. I ordered a 2 view chest rather than a 1 view given his ambulation is status and because he was not having chest pain. I even put in for him to go by wheelchair with oxygen I believe they went to get him and patient went off on them and refused to have the trach done. He stated he did not want to have 2 views done I went in and told him that I prefer to get 2 views he yelled at me again and I gave him is fine we will get one chest x-ray goes into the room and now is refusing to do a single chest and he is yelling at the top of his long as the entire time. I was informed by the nurse that patient was refusing that and is refusing blood work and I went in the room and I shut the door with the patient and I told him that we needed to rectify this problem that he does not get to make all the calls around here that he has to follow some of our protocols that we have things we have to do for certain things in his case a chest x-ray is warranted blood work is #2 I cannot treat his shortness of breath by waving a wound over his head. Patient then began yelling more until such time as we can get 1 of the nurses down to interpret for us he stated he just wants to go back to his facility and [facility] he did not want to give anything else and I have nothing else to offer since he would allow us to do anything. Just a reminder that he never once that he had chest pain. 04/25/18 14:48 To note patient's vital signs had not been captured yet by the time I underwent this dictation although I can be sure while I was talking to him in the room his blood pressure and heart rate were all stable. His EKG showed a normal sinus rhythm with a heart rate of 80 and his blood pressure was believed 138/79 when I was in the room. - Vital Signs Vital signs: Temp Pulse Resp BP Pulse Ox 97.8 F 87 16 146/96 H 100 04/25/18 14:42 04/25/18 16:13 04/25/18 16:13 04/25/18 16:13 04/25/18 16:13 Discharge - Discharge Clinical Impression: Congestive heart failure Qualifiers: Heart failure type: unspecified Heart failure chronicity: acute on chronic Qualified Code(s): I50.9 - Heart failure, unspecified Disposition: AGAINST MEDICAL ADVICE Referrals: RICK ROBISON MD [Primary Care Provider] - Follow up as needed
--- NOTE | 2018-04-25 15:17 | RADIOLOGY REPORT (SQ) ---
EXAM DESCRIPTION: CHEST SINGLE VIEW COMPLETED DATE/TIME: 04/25/2018 2:56 pm REASON FOR STUDY: chf COMPARISON: 04/15/2018 EXAM PARAMETERS: NUMBER OF VIEWS: One view. TECHNIQUE: Single frontal radiographic view of the chest acquired. RADIATION DOSE: NA LIMITATIONS: None. FINDINGS: LUNGS AND PLEURA: Large bilateral pleural effusions. Slightly improved over previous. MEDIASTINUM AND HILAR STRUCTURES: No masses. Contour normal. HEART AND VASCULAR STRUCTURES: Heart enlarged. Vascular congestion. BONES: No acute findings. HARDWARE: Cardiac hardware unchanged. OTHER: No other significant finding. IMPRESSION: Vascular congestion and cardiac enlargement. Large pleural effusions slightly improved. TECHNICAL DOCUMENTATION: JOB ID: [id number] [employer]- All Rights Reserved Reading location - IP/workstation name: [email or web address]
[2018-04-25 16:15] VITALS: BP 146/96
--- NOTE | 2018-04-25 22:33 | EKG REPORT ---
SEVERITY:- ABNORMAL ECG - SINUS RHYTHM LOW VOLTAGE IN FRONTAL LEADS CONSIDER RIGHT VENTRICULAR HYPERTROPHY BORDERLINE R WAVE PROGRESSION, ANTERIOR LEADS BORDERLINE T ABNORMALITIES, INFERIOR LEADS : Confirmed by: Zac Brandon MD 25-Apr-2018 22:31:24
== END 2018-04-25 16:20 | disposition left against medical advice (07) ==
LOC: ER 12:12
DX: I11.0 Hypertensive heart disease with heart failure (principal); I50.23 Acute on chronic systolic (congestive) heart failure; I25.10 Atherosclerotic heart disease of native coronary artery without angina pectoris; I69.320 Aphasia following cerebral infarction; J44.9 Chronic obstructive pulmonary disease, unspecified; E11.9 Type 2 diabetes mellitus without complications; R06.02 Shortness of breath; Z88.8 Allergy status to other drugs, medicaments and biological substances; Z95.5 Presence of coronary angioplasty implant and graft; Z95.1 Presence of aortocoronary bypass graft; Z95.810 Presence of automatic (implantable) cardiac defibrillator; Z53.20 Procedure and treatment not carried out because of patient's decision for unspecified reasons
CPT/HCPCS: 71045; 93005; 93010; 99285

== ENCOUNTER 2018-04-29 04:17 | Emergency (ER) | payer OTHER, MEDICARE ==
[2018-04-29 04:22] VITALS: BP 133/88
[2018-04-29] MEDS ORDERED: ASPIRIN 81 MG TABLET, CHEWABLE PO ONE (04:55)
--- NOTE | 2018-04-29 05:21 | RADIOLOGY REPORT (SQ) ---
EXAM DESCRIPTION: XR CHEST 1 VIEW COMPLETED DATE/TME: 04/29/2018 04:55 CLINICAL HISTORY: 62 years, Male, cp COMPARISON: 04/25/2018 NUMBER OF VIEWS: One TECHNIQUE: AP view of the chest LIMITATIONS: None. FINDINGS: There are grossly stable bibasilar airspace opacities with bilateral pleural effusions. The heart is enlarged with a left chest wall AICD in place. There is no pneumothorax. The bones are unchanged. IMPRESSION: Grossly stable bibasilar airspace opacities with bilateral pleural effusions copyright 2010 [employer]- All Rights Reserved
[2018-04-29 06:15] LABS: ABSOLUTE EOSINOPHILS # (AUTO) 0.2 10^3/uL (0.0-0.6); ABSOLUTE LYMPHOCYTES (AUTO) 0.7 10^3/uL (0.5-4.7); ABSOLUTE MONOCYTES (AUTO) 0.6 10^3/uL (0.1-1.4); ABSOLUTE NEUT (AUTO) 2.5 10^3/uL (1.7-8.2); BASOPHILS % (AUTO) 1.1 % (0-2); EOSINOPHILS % (AUTO) 4.7 % (0-6); HEMATOCRIT 41.4 % (37.9-51.0); HEMOGLOBIN 13.4 g/dL (13.5-17.0); LYMPHOCYTES % (AUTO) 17.1 % (13-45); MEAN CORPUSCULAR HEMOGLOBIN 28.3 pg (27.0-33.4); MEAN CORPUSCULAR HGB CONC 32.4 g/dL (32.0-36.0); MEAN CORPUSCULAR VOLUME 87 fl (80-97); MONOCYTES % (AUTO) 15.3 % (3-13); PLATELET COUNT 145 10^3/uL (150-450); RED BLOOD COUNT 4.73 10^6/uL (4.35-5.55); RED CELL DISTRIBUTION WIDTH 16.9 % (11.5-14.0); SEGMENTED NEUTROPHILS % (AUTO) 61.8 % (42-78); TOTAL CELLS COUNTED % (AUTO) 100 %; WHITE BLOOD COUNT 4.1 10^3/uL (4.0-10.5)
[2018-04-29 06:32] LABS: INTERNATIONAL RATION (INR) 1.04; PROTHROMBIN TIME 14.1 SEC (11.4-15.4)
[2018-04-29 06:37] LABS: ALANINE AMINOTRANSFERASE 13 U/L (21-72); ALBUMIN 3.9 g/dL (3.5-5.0); ALKALINE PHOSPHATASE 59 U/L (38-126); ASPARTATE AMINO TRANSFERASE 22 U/L (17-59); BILIRUBIN,DIRECT 0.4 mg/dL (0.0-0.4); BILIRUBIN,TOTAL 0.9 mg/dL (0.2-1.3); BLOOD UREA NITROGEN 16 mg/dL (7-20); CHLORIDE 97 mmol/L (98-107); CREATINE KINASE 34 U/L (55-170); GLUCOSE 116 mg/dL (75-110); POTASSIUM 5.8 mmol/L (3.6-5.0); SODIUM 147.3 mmol/L (137-145); TOTAL PROTEIN 6.8 g/dL (6.3-8.2)
--- NOTE | 2018-04-29 06:43 | ER Document Report ---
ED Medical Screen (RME) - General Chief Complaint: Chest Pressure Stated Complaint: CHEST TIGHTNESS Time Seen by Provider: 04/29/18 04:39 Notes: Pt. is a 62 year old male presenting to the ED CC chest pains. Pt. is very familiar to this ED and home health aide stated the Pt. was recently d/c from rehab have "complications with his CHF." She stated this morning around 0330 the pt stated that he had chest pressure and he wanted to go to the ED. The Pt. keeps yelling the word "flu" but when asked why he thinks he has the flu he just states his chest hurts. Home health aide denies the pt. having an URI symptoms or fever. PE: Pt. has garbled speech which is his baseline from past CVA, LS CTA no work of breathing, weakness noted to left upper and lower extremities. I have greeted and performed a rapid initial assessment of this patient. A comprehensive ED assessment and evaluation of the patient, analysis of test results and completion of the medical decision making process will be conducted by additional ED providers. TRAVEL OUTSIDE OF THE [place] IN LAST 30 DAYS: No - Related Data Allergies/Adverse Reactions: captopril [From Capoten] Allergy (Severe, Verified 03/31/18 02:20) Angioedema atorvastatin calcium [From Lipitor] Allergy (Intermediate, Verified 03/31/18 02: 20) Angioedema clopidogrel [From Plavix] Allergy (Verified 03/31/18 02:20) rosuvastatin [From Crestor] Allergy (Verified 03/31/18 02:20) simvastatin [From Zocor] Allergy (Verified 03/31/18 02:20) Angioedema Past Medical History - Social History Family history: None - Past Medical History Cardiac Medical History: Reports: Hx Congestive Heart Failure - Systolic with EF of 25-30% as of 2D echo in July 2017, Hx Coronary Artery Disease, Hx Heart Attack - 2008, Hx Hypercholesterolemia, Hx Hypertension Pulmonary Medical History: Reports: Hx Asthma, Hx Bronchitis, Hx COPD, Hx Sleep Apnea Neurological Medical History: Reports: Hx Cerebrovascular Accident - x 2. Denies: Hx Seizures Endocrine Medical History: Reports: Hx Diabetes Mellitus Type 1, Hx Diabetes Mellitus Type 2 Renal/ Medical History: Denies: Hx Peritoneal Dialysis Malignancy Medical History: GI Medical History: Reports: Hx Diverticulitis, Hx Gastroesophageal Reflux Disease Musculoskeltal Medical History: Reports Hx Arthritis, Reports Hx Musculoskeletal Deformity, Reports Hx Musculoskeletal Trauma Psychiatric Medical History: Reports: Hx Anxiety, Hx Post Traumatic Stress Disorder Denies: Hx Depression Infectious Medical History: Past Surgical History: Reports: Hx Abdominal Surgery - for diverticulitis, Hx Bowel Surgery - Colon resection due to diverticulitis, Hx Cardiac Catheterization, Hx Cardiac Surgery - 1984, ICD placement 2015, Hx Coronary Artery Bypass Graft, Hx Coronary Stent - 1984, Hx Thyroid Surgery, Other - AICD - Immunizations Immunizations up to date: Yes Hx Diphtheria, Pertussis, Tetanus Vaccination: Yes History of Influenza Vaccine for 02/2017 - 07/2017 Season: Refused Physical Exam - Vital signs Vitals: Temp Pulse Resp BP Pulse Ox 97 F L 61 19 133/88 H 94 04/29/18 04:21 04/29/18 04:21 04/29/18 04:21 04/29/18 04:21 04/29/18 04:21 Course - Vital Signs Vital signs: Temp Pulse Resp BP Pulse Ox 97 F L 61 19 133/88 H 94 04/29/18 04:21 04/29/18 04:21 04/29/18 04:21 04/29/18 04:21 04/29/18 04:21 - Laboratory Result Diagrams: 04/29/18 05:59 04/29/18 05:59 Laboratory results interpreted by me: 04/29/18 05:59 Hgb 13.4 L RDW 16.9 H Plt Count 145 L Monocytes % 15.3 H Doctor's Discharge - Discharge Referrals: RICK ROBISON MD [Primary Care Provider] - Follow up as needed
[2018-04-29 06:47] LABS: ANION GAP 9 (5-19)
[2018-04-29 06:48] LABS: CARBON DIOXIDE 41 mmol/L (22-30); CREATINE KINASE MB 1.97 ng/mL (<4.55)
[2018-04-29 06:50] LABS: TROPONIN I 0.07 ng/mL
--- NOTE | 2018-04-29 07:46 | ER Document Report ---
ED Cardiac - General Chief Complaint: Chest Pressure Stated Complaint: CHEST TIGHTNESS Time Seen by Provider: 04/29/18 04:39 Notes: 62-year-old male with multiple medical problems well-known to the emergency department presents complaint some chest discomfort shortness of breath. The patient has had a little bit of cough and congestion. He just got out of rehab the patient has a history of stroke and has a aphasia. He has been yelling "flu " to his family since he got home. TRAVEL OUTSIDE OF THE [place] IN LAST 30 DAYS: No - Related Data Allergies/Adverse Reactions: captopril [From Capoten] Allergy (Severe, Verified 03/31/18 02:20) Angioedema atorvastatin calcium [From Lipitor] Allergy (Intermediate, Verified 03/31/18 02: 20) Angioedema clopidogrel [From Plavix] Allergy (Verified 03/31/18 02:20) rosuvastatin [From Crestor] Allergy (Verified 03/31/18 02:20) simvastatin [From Zocor] Allergy (Verified 03/31/18 02:20) Angioedema Past Medical History - Social History Smoking Status: Unknown if Ever Smoked Family History: Reviewed & Not Pertinent, CAD, DM, Hypertension, Thyroid Disfunction Patient has suicidal ideation: No Patient has homicidal ideation: No - Past Medical History Cardiac Medical History: Reports: Hx Congestive Heart Failure - Systolic with EF of 25-30% as of 2D echo in July 2017, Hx Coronary Artery Disease, Hx Heart Attack - 2008, Hx Hypercholesterolemia, Hx Hypertension Pulmonary Medical History: Reports: Hx Asthma, Hx Bronchitis, Hx COPD, Hx Sleep Apnea Neurological Medical History: Reports: Hx Cerebrovascular Accident - x 2. Denies: Hx Seizures Endocrine Medical History: Reports: Hx Diabetes Mellitus Type 1, Hx Diabetes Mellitus Type 2 Renal/ Medical History: Denies: Hx Peritoneal Dialysis Malignancy Medical History: GI Medical History: Reports: Hx Diverticulitis, Hx Gastroesophageal Reflux Disease Musculoskeletal Medical History: Reports Hx Arthritis, Reports Hx Musculoskeletal Deformity, Reports Hx Musculoskeletal Trauma Psychiatric Medical History: Reports: Hx Anxiety, Hx Post Traumatic Stress Disorder Denies: Hx Depression Infectious Medical History: Past Surgical History: Reports: Hx Abdominal Surgery - for diverticulitis, Hx Bowel Surgery - Colon resection due to diverticulitis, Hx Cardiac Catheterization, Hx Cardiac Surgery - 1984, ICD placement 2015, Hx Coronary Artery Bypass Graft, Hx Coronary Stent - 1985, Hx Thyroid Surgery, Other - AICD - Immunizations Immunizations up to date: Yes Hx Diphtheria, Pertussis, Tetanus Vaccination: Yes Hx Pneumococcal Vaccination: 05/26/10 Review of Systems - Review of Systems Constitutional: denies: Chills, Fever Cardiovascular: Dyspnea, Edema. denies: Chest pain Respiratory: denies: Cough Genitourinary: denies: Burning, Hematuria -: Yes All other systems reviewed and negative Physical Exam - Vital signs Vitals: Temp Pulse Resp BP Pulse Ox 97 F L 61 19 133/88 H 94 04/29/18 04:21 04/29/18 04:21 04/29/18 04:21 04/29/18 04:21 04/29/18 04:21 - Notes Notes: GENERAL: Well-appearing, well-nourished and in no acute distress. HEAD: Atraumatic, normocephalic. EYES: Pupils equal round and reactive to light, extraocular movements intact, sclera anicteric, conjunctiva are normal. ENT: Nares patent, oropharynx clear without exudates. Moist mucous membranes. NECK: Normal range of motion, supple without lymphadenopathy LUNGS: breath sounds clear to auscultation bilaterally and equal. No wheezes rales or rhonchi. HEART: Regular rate and rhythm without murmurs ABDOMEN: Soft, nontender, nondistended abdomen. No guarding, no rebound. No masses appreciated. Musculoskeletal: 2+ pitting edema bilateral lower extremities NEUROLOGICAL: Baseline impairment of speech PSYCH: Normal mood, normal affect. SKIN: Warm, Dry, normal turgor, no rashes or lesions noted. Course - Re-evaluation Re-evalutation: 04/29/18 07:45 62-year-old male presents with chest pain shortness of breath he is a history of chronic heart problems CHF. He is a frequent visitor. Has history of prior stroke and aphasia. We will check him for the flu he does seem to have some cough and congestion. Otherwise he seems to be doing quite well will do EKG and serial enzymes. 04/29/18 09:57 Was a difficult sample but likely negative he likely has a viral URI. With his cough and congestion. EKG is unchanged. Troponin is unchanged from prior troponins. His sodium and potassium were mildly elevated he may have had a little hemolysis there. Want to give him some fluids and recheck with some blood additional troponin but the patient refused that he states he is ready to go home. He does not want to stay any longer the patient will be discharged at his request I invited him to return if he feels as if he is getting worse. - Vital Signs Vital signs: Temp Pulse Resp BP Pulse Ox 97 F L 61 19 133/88 H 94 04/29/18 04:21 04/29/18 04:21 04/29/18 04:21 04/29/18 04:21 04/29/18 04:21 - Laboratory Result Diagrams: 04/29/18 05:59 04/29/18 05:59 Laboratory results interpreted by me: 04/29/18 04/29/18 05:59 05:59 Hgb 13.4 L RDW 16.9 H Plt Count 145 L Monocytes % 15.3 H Sodium 147.3 H Potassium 5.8 H Chloride 97 L Carbon Dioxide 41 H* Glucose 116 H ALT 13 L Creatine Kinase 34 L - EKG Interpretation by Me EKG shows normal: Sinus rhythm Rate: Normal [place]/QRS: IVCD When compared to previous EKG there are: No significant change Discharge - Discharge Clinical Impression: Viral URI with cough, Chest discomfort Condition: Good Disposition: HOME, SELF-CARE Instructions: Upper Respiratory Infection, Infant or Child ([facility]), Acetaminophen Additional Instructions: Please take as needed Benadryl and Tylenol. Referrals: RICK ROBISON MD [Primary Care Provider] - Follow up as needed
[2018-04-29] MEDS ORDERED: NORMAL SALINE 1000 ML 500 ML IV ONE (08:51)
--- NOTE | 2018-04-29 12:00 | EKG REPORT ---
SEVERITY:- ABNORMAL ECG - SINUS RHYTHM IRBBB AND LPFB CONSIDER ANTERIOR INFARCT : Confirmed by: Pooja Patel 29-Apr-2018 11:58:25
== END 2018-04-29 10:31 | disposition home or self-care (01) ==
LOC: ER 04:17
DX: J06.9 Acute upper respiratory infection, unspecified (principal); B97.89 Other viral agents as the cause of diseases classified elsewhere; J44.9 Chronic obstructive pulmonary disease, unspecified; R07.89 Other chest pain; R06.02 Shortness of breath; R05 Cough; I69.320 Aphasia following cerebral infarction; I25.10 Atherosclerotic heart disease of native coronary artery without angina pectoris; I10 Essential (primary) hypertension; I25.2 Old myocardial infarction; E11.9 Type 2 diabetes mellitus without complications; Z88.8 Allergy status to other drugs, medicaments and biological substances; Z95.5 Presence of coronary angioplasty implant and graft; Z95.810 Presence of automatic (implantable) cardiac defibrillator; Z95.1 Presence of aortocoronary bypass graft; R60.9 Edema, unspecified
CPT/HCPCS: 36415; 71045; 80053; 82550; 82553; 84484; 85025; 85610; 93005; 93010; 99285

== ENCOUNTER 2018-04-30 10:48 | Emergency (ER) | payer OTHER, MEDICARE ==
[2018-04-30] MEDS ORDERED: ASPIRIN 81 MG TABLET, CHEWABLE PO ONE (11:07)
[2018-04-30] MEDS ORDERED: FUROSEMIDE INJ/PF 40 MG/4 ML SDV IV ONE (11:07)
--- NOTE | 2018-04-30 11:08 | ER Document Report ---
ED Medical Screen (RME) - General Chief Complaint: Shortness Of Breath Stated Complaint: FLU SYMPTOMS Time Seen by Provider: 04/30/18 11:07 Notes: 62 years old with a long history of congestive heart failure, ate saltine crackers yesterday last night he could not sleep well due to difficulty in breathing discontinued this morning therefore present to the ED. His ejection fraction is somewhere around 25. Long-standing history of hypertension diabetes. Bilateral rales over the lower lung field. TRAVEL OUTSIDE OF THE [place] IN LAST 30 DAYS: No - Related Data Allergies/Adverse Reactions: captopril [From Capoten] Allergy (Severe, Verified 04/30/18 10:50) Angioedema atorvastatin calcium [From Lipitor] Allergy (Intermediate, Verified 04/30/18 10: 50) Angioedema clopidogrel [From Plavix] Allergy (Verified 04/30/18 10:50) rosuvastatin [From Crestor] Allergy (Verified 04/30/18 10:50) simvastatin [From Zocor] Allergy (Verified 04/30/18 10:50) Angioedema Past Medical History - Social History Family history: None - Past Medical History Cardiac Medical History: Reports: Hx Congestive Heart Failure - Systolic with EF of 25-30% as of 2D echo in July 2017, Hx Coronary Artery Disease, Hx Heart Attack - 2008, Hx Hypercholesterolemia, Hx Hypertension Pulmonary Medical History: Reports: Hx Asthma, Hx Bronchitis, Hx COPD, Hx Sleep Apnea Neurological Medical History: Reports: Hx Cerebrovascular Accident - x 2. Denies: Hx Seizures Endocrine Medical History: Reports: Hx Diabetes Mellitus Type 1, Hx Diabetes Mellitus Type 2 Renal/ Medical History: Denies: Hx Peritoneal Dialysis Malignancy Medical History: GI Medical History: Reports: Hx Diverticulitis, Hx Gastroesophageal Reflux Disease Musculoskeltal Medical History: Reports Hx Arthritis, Reports Hx Musculoskeletal Deformity, Reports Hx Musculoskeletal Trauma Psychiatric Medical History: Reports: Hx Anxiety, Hx Post Traumatic Stress Disorder Denies: Hx Depression Infectious Medical History: Past Surgical History: Reports: Hx Abdominal Surgery - for diverticulitis, Hx Bowel Surgery - Colon resection due to diverticulitis, Hx Cardiac Catheterization, Hx Cardiac Surgery - 1984, ICD placement 2015, Hx Coronary Artery Bypass Graft, Hx Coronary Stent - 1984, Hx Thyroid Surgery, Other - AICD - Immunizations Immunizations up to date: Yes Hx Diphtheria, Pertussis, Tetanus Vaccination: Yes History of Influenza Vaccine for 02/2017 - 07/2017 Season: Refused Doctor's Discharge - Discharge Referrals: RICK ROBISON MD [Primary Care Provider] - Follow up as needed
[2018-04-30] MEDS ORDERED: ASPIRIN 81 MG TABLET, CHEWABLE ONE (11:28)
--- NOTE | 2018-04-30 11:48 | EKG REPORT ---
SEVERITY:- ABNORMAL ECG - SINUS RHYTHM CONSIDER RIGHT VENTRICULAR HYPERTROPHY BORDERLINE R WAVE PROGRESSION, ANTERIOR LEADS BORDERLINE T ABNORMALITIES, INFERIOR LEADS : Confirmed by: Pooja Patel 30-Apr-2018 11:47:09
--- NOTE | 2018-04-30 11:57 | ER Document Report ---
ED General - General Chief Complaint: Shortness Of Breath Stated Complaint: FLU SYMPTOMS Time Seen by Provider: 04/30/18 11:07 Notes: 62-year-old male presents to the emergency department complaining of cough and flulike symptoms. She was seen here yesterday for the same. He was advised to take [id number] medications. The patient is not very compliant with his medications. He is a CHF patient. Family stated he was eating saltine crackers. Patient stated he has some cough and some shortness of breath he also complains of runny nose congestion. He states he usually sees the [facility] but has not tried to get in there. He denies any chest pain. He has a history of strokes and has some aphasia. He often yells out trying to get his point across. TRAVEL OUTSIDE OF THE [place] IN LAST 30 DAYS: No - Related Data Allergies/Adverse Reactions: captopril [From Capoten] Allergy (Severe, Verified 04/30/18 10:50) Angioedema atorvastatin calcium [From Lipitor] Allergy (Intermediate, Verified 04/30/18 10: 50) Angioedema clopidogrel [From Plavix] Allergy (Verified 04/30/18 10:50) rosuvastatin [From Crestor] Allergy (Verified 04/30/18 10:50) simvastatin [From Zocor] Allergy (Verified 04/30/18 10:50) Angioedema Past Medical History - Social History Smoking Status: Never Smoker Chew tobacco use (# tins/day): No Frequency of alcohol use: None Drug Abuse: None Family History: Reviewed & Not Pertinent, CAD, DM, Hypertension, Thyroid Disfunction Patient has suicidal ideation: No Patient has homicidal ideation: No - Past Medical History Cardiac Medical History: Reports: Hx Congestive Heart Failure - Systolic with EF of 25-30% as of 2D echo in July 2017, Hx Coronary Artery Disease, Hx Heart Attack - 2009, Hx Hypercholesterolemia, Hx Hypertension Pulmonary Medical History: Reports: Hx Asthma, Hx Bronchitis, Hx COPD, Hx Sleep Apnea Neurological Medical History: Reports: Hx Cerebrovascular Accident - x 2. Denies: Hx Seizures Endocrine Medical History: Reports: Hx Diabetes Mellitus Type 1, Hx Diabetes Mellitus Type 2 Renal/ Medical History: Denies: Hx Peritoneal Dialysis Malignancy Medical History: GI Medical History: Reports: Hx Diverticulitis, Hx Gastroesophageal Reflux Disease Musculoskeletal Medical History: Reports Hx Arthritis, Reports Hx Musculoskeletal Deformity, Reports Hx Musculoskeletal Trauma Psychiatric Medical History: Reports: Hx Anxiety, Hx Post Traumatic Stress Disorder Denies: Hx Depression Infectious Medical History: Past Surgical History: Reports: Hx Abdominal Surgery - for diverticulitis, Hx Bowel Surgery - Colon resection due to diverticulitis, Hx Cardiac Catheterization, Hx Cardiac Surgery - 1984, ICD placement 2015, Hx Coronary Artery Bypass Graft, Hx Coronary Stent - 1984, Hx Thyroid Surgery, Other - AICD - Immunizations Immunizations up to date: Yes Hx Diphtheria, Pertussis, Tetanus Vaccination: Yes Hx Pneumococcal Vaccination: 05/26/10 Review of Systems - Review of Systems EENT: Nose congestion Cardiovascular: Orthopnea, Dyspnea. denies: Chest pain Respiratory: Cough, Short of breath Gastrointestinal: denies: Abdominal pain, Nausea, Vomiting Neurological/Psychological: denies: Headaches -: Yes All other systems reviewed and negative Physical Exam - Notes Notes: GENERAL_APPEARANCE: well_nourished, alert, cooperative, no_acute_distress, no_ obvious_discomfort. VITALS: reviewed, see vital signs table. HEAD: no_swelling\tenderness on the head. EYES: conjunctiva_clear. NOSE: Clear_nasal_discharge. MOUTH: (-)decreased moisture. THROAT: Mild throat_inflammation, no_airway_obstruction. no_lymphadenopathy NECK: supple, no_neck_tenderness, (-)thyromegaly. BACK: no_back_tenderness. CHEST_WALL: no_chest_tenderness. LUNGS: no_wheezing, basilar crackles, no_rhonchi, (-)accessory muscle use, good air exchange bilateral. HEART: normal_rate, normal_rhythm, normal_S1, normal_S2, (-)S3, (-)S4, no_ murmur, no_rub. ABDOMEN: normal_BS, soft, no_abd_tenderness, (-)guarding, (-)rebound, no_ organomegaly, no_abd_masses. EXTREMITIES: good pulses in all_extremities, no_swelling\tenderness in the extremities, 2+_edema. SKIN: warm, dry, good_color, no_rash. MENTAL_STATUS: speech_clear, oriented_X_3, normal_affect, responds_ appropriately to questions. Course - Re-evaluation Re-evalutation: 04/30/18 11:55 Patient is a long history of noncompliance for his CHF he also complaining of flulike illness. I saw him yesterday he is a chronic troponin leak. He is eating saltine crackers. He is diet is noncompliant. We will retest him for the flu check some generalized labs he has a chronic troponin leak. 04/30/18 14:18 The patient's flu is negative. He does have CHF. He is eating saltines not taking his Lasix and when I asked him he is out of his Lasix. I will write him a Lasix prescription with some potassium. I spoke with him at length and wanted him to stay and redraw the electrolytes since he had a little bit of elevation in hemolysis yesterday he refused this. He signed out AMA and left. I did give him a Lasix prescription because he is fluid overloaded try to explain to him that eating saltines and not being compliant will only make his situation worse. - Laboratory Result Diagrams: 04/30/18 11:35 04/30/18 11:35 Laboratory results interpreted by me: 04/30/18 11:35 Hgb 12.8 L RDW 16.5 H Monocytes % 15.0 H - Diagnostic Test Radiology reviewed: Reports reviewed Radiology results interpreted by me: 04/30/18 14:19 Chest X-Ray 04/30/18 11:07 IMPRESSION: CHF. No significant change. - EKG Interpretation by Me EKG shows normal: Sinus rhythm [place]/QRS: Right axis deviation, IVCD When compared to previous EKG there are: No significant change Discharge - Discharge Clinical Impression: Acute congestive heart failure Condition: Good Disposition: AGAINST MEDICAL ADVICE Instructions: Congestive Heart Failure ([facility]) Prescriptions: Furosemide [Lasix 40 mg Tablet] 40 mg PO QAM #30 tablet Potassium Chloride [Klor-Con M20] 20 meq PO DAILY #30 tab.er.[email or web address] Referrals: RICK ROBISON MD [Primary Care Provider] - Follow up as needed
[2018-04-30 12:00] LABS: ABSOLUTE EOSINOPHILS # (AUTO) 0.2 10^3/uL (0.0-0.6); ABSOLUTE LYMPHOCYTES (AUTO) 0.7 10^3/uL (0.5-4.7); ABSOLUTE MONOCYTES (AUTO) 0.7 10^3/uL (0.1-1.4); EOSINOPHILS % (AUTO) 3.4 % (0-6); HEMATOCRIT 39.8 % (37.9-51.0); HEMOGLOBIN 12.8 g/dL (13.5-17.0); MEAN CORPUSCULAR HEMOGLOBIN 28.3 pg (27.0-33.4); MEAN CORPUSCULAR HGB CONC 32.2 g/dL (32.0-36.0); MEAN CORPUSCULAR VOLUME 88 fl (80-97); PLATELET COUNT 153 10^3/uL (150-450); RED BLOOD COUNT 4.53 10^6/uL (4.35-5.55); RED CELL DISTRIBUTION WIDTH 16.5 % (11.5-14.0); SEGMENTED NEUTROPHILS % (AUTO) 64.6 % (42-78); TOTAL CELLS COUNTED % (AUTO) 100 %; WHITE BLOOD COUNT 4.7 10^3/uL (4.0-10.5)
--- NOTE | 2018-04-30 12:25 | RADIOLOGY REPORT (SQ) ---
EXAM DESCRIPTION: CHEST SINGLE VIEW COMPLETED DATE/TIME: 04/30/2018 12:11 pm REASON FOR STUDY: Shortness of breath and congestive heart failure COMPARISON: 04/29/2018 NUMBER OF VIEWS: One view. TECHNIQUE: Single frontal radiographic image of the chest acquired. LIMITATIONS: None. FINDINGS: LUNGS AND PLEURA: Stable appearance. MEDIASTINUM AND HEART: Stable heart size and mediastinal structures. SUPPORT DEVICES: Appropriate location without change. BONY STRUCTURES: No acute findings. HARDWARE: None. OTHER: No other significant finding. IMPRESSION: CHF. No significant change. Reading location - IP/workstation name: [email or web address]
[2018-04-30 12:56] LABS: A TYPE INFLUENZA AG NEGATIVE (NEGATIVE); B INFLUENZA AG NEGATIVE (NEGATIVE)
== END 2018-04-30 14:34 | disposition left against medical advice (07) ==
LOC: ER 10:48
DX: I11.0 Hypertensive heart disease with heart failure (principal); I50.21 Acute systolic (congestive) heart failure; R06.02 Shortness of breath; R05 Cough; I25.10 Atherosclerotic heart disease of native coronary artery without angina pectoris; I25.2 Old myocardial infarction; E78.00 Pure hypercholesterolemia, unspecified; E11.9 Type 2 diabetes mellitus without complications; Z95.1 Presence of aortocoronary bypass graft
CPT/HCPCS: 93005; 99284; 96374; 36415; 85025; 87804; 71045; 93010; J1940

== ENCOUNTER 2018-05-02 11:46 | Emergency (ER) | payer OTHER, MEDICARE ==
[2018-05-02 11:56] VITALS: BP 122/82
--- NOTE | 2018-05-02 12:34 | ER Document Report ---
ED Medical Screen (RME) - General Chief Complaint: Arm Pain Stated Complaint: RIGHT ARM PAIN Time Seen by Provider: 05/02/18 12:27 Notes: Patient is complaining of pain in his right arm that started this morning. No injury. Has had this before. Family member with him gave him Tylenol this morning. Patient says the pain goes from his right arm into his right leg. Denies chest pain. Denies left arm pain. No history of any injury. No unusual activity. Patient is wheelchair confined secondary to old strokes. He also has heart disease. Patient has been here numerous times in the past, frequently here for pain complaints. He is difficult to manage because he has speech problems from his stroke and he yells when he tries to speak. TRAVEL OUTSIDE OF THE [place] IN LAST 30 DAYS: No - Related Data Allergies/Adverse Reactions: captopril [From Capoten] Allergy (Severe, Verified 05/02/18 11:47) Angioedema atorvastatin calcium [From Lipitor] Allergy (Intermediate, Verified 05/02/18 11: 47) Angioedema clopidogrel [From Plavix] Allergy (Verified 05/02/18 11:47) rosuvastatin [From Crestor] Allergy (Verified 05/02/18 11:47) simvastatin [From Zocor] Allergy (Verified 05/02/18 11:47) Angioedema Past Medical History - Social History Family history: None - Past Medical History Cardiac Medical History: Reports: Hx Congestive Heart Failure - Systolic with EF of 25-30% as of 2D echo in July 2017, Hx Coronary Artery Disease, Hx Heart Attack - 2008, Hx Hypercholesterolemia, Hx Hypertension Pulmonary Medical History: Reports: Hx Asthma, Hx Bronchitis, Hx COPD, Hx Sleep Apnea Neurological Medical History: Reports: Hx Cerebrovascular Accident - x 2. Denies: Hx Seizures Endocrine Medical History: Reports: Hx Diabetes Mellitus Type 1, Hx Diabetes Mellitus Type 2 Renal/ Medical History: Denies: Hx Peritoneal Dialysis Malignancy Medical History: GI Medical History: Reports: Hx Diverticulitis, Hx Gastroesophageal Reflux Disease Musculoskeltal Medical History: Reports Hx Arthritis, Reports Hx Musculoskeletal Deformity, Reports Hx Musculoskeletal Trauma Psychiatric Medical History: Reports: Hx Anxiety, Hx Post Traumatic Stress Disorder Denies: Hx Depression Infectious Medical History: Past Surgical History: Reports: Hx Abdominal Surgery - for diverticulitis, Hx Bowel Surgery - Colon resection due to diverticulitis, Hx Cardiac Catheterization, Hx Cardiac Surgery - 1984, ICD placement 2015, Hx Coronary Artery Bypass Graft, Hx Coronary Stent - 1984, Hx Thyroid Surgery, Other - AICD - Immunizations Immunizations up to date: Yes Hx Diphtheria, Pertussis, Tetanus Vaccination: Yes History of Influenza Vaccine for 02/2017 - 07/2017 Season: Refused Physical Exam - Vital signs Vitals: Temp Pulse Resp BP Pulse Ox 97.8 F 80 32 H 122/82 90 L 05/02/18 11:53 05/02/18 11:53 05/02/18 11:53 05/02/18 11:53 05/02/18 11:53 Course - Vital Signs Vital signs: Temp Pulse Resp BP Pulse Ox 97.8 F 80 32 H 122/82 90 L 05/02/18 11:53 05/02/18 11:53 05/02/18 11:53 05/02/18 11:53 05/02/18 11:53 Doctor's Discharge - Discharge Referrals: RICK ROBISON MD [Primary Care Provider] - Follow up as needed
[2018-05-02] MEDS ORDERED: HYDROCODONE/ACETAMINOPHEN 5-325 MG TABLET PO ONE (13:17)
--- NOTE | 2018-05-02 13:22 | ER Document Report ---
ED General - General Chief Complaint: Arm Pain Stated Complaint: RIGHT ARM PAIN Time Seen by Provider: 05/02/18 12:27 Mode of Arrival: Ambulatory Information source: Patient Notes: 62-year-old male with congestive heart failure, coronary artery disease, hypertension, COPD, type 1 diabetes, remote history of CVA which has left him speech impaired and mostly wheelchair-bound presents with complaint of right hand and wrist pain that started this morning. Patient's aide is at the bedside and states that patient often complains of pain. He has been seen here previously for similar symptoms. He denies any chest pain, shortness of breath , abdominal pain, nausea, vomiting, diarrhea, injury to the hand. Patient took Tylenol this morning without relief. TRAVEL OUTSIDE OF THE [place] IN LAST 30 DAYS: No - HPI Onset: This morning Onset/Duration: Gradual, Persistent Quality of pain: Achy Severity: Mild Associated symptoms: denies: Chest pain, Diarrhea, Fever, Headache, Nausea, Vomiting, Shortness of breath Exacerbated by: Denies Relieved by: Denies Similar symptoms previously: Yes Recently seen / treated by doctor: Yes - Related Data Allergies/Adverse Reactions: captopril [From Capoten] Allergy (Severe, Verified 05/02/18 11:47) Angioedema atorvastatin calcium [From Lipitor] Allergy (Intermediate, Verified 05/02/18 11: 47) Angioedema clopidogrel [From Plavix] Allergy (Verified 05/02/18 11:47) rosuvastatin [From Crestor] Allergy (Verified 05/02/18 11:47) simvastatin [From Zocor] Allergy (Verified 05/02/18 11:47) Angioedema Past Medical History - General Information source: Patient - Social History Smoking Status: Former Smoker Frequency of alcohol use: None Drug Abuse: None Lives with: Alone Family History: Reviewed & Not Pertinent, CAD, DM, Hypertension, Thyroid Disfunction Patient has suicidal ideation: No Patient has homicidal ideation: No - Past Medical History Cardiac Medical History: Reports: Hx Congestive Heart Failure - Systolic with EF of 25-30% as of 2D echo in July 2017, Hx Coronary Artery Disease, Hx Heart Attack - 2009, Hx Hypercholesterolemia, Hx Hypertension Pulmonary Medical History: Reports: Hx Asthma, Hx Bronchitis, Hx COPD, Hx Sleep Apnea Neurological Medical History: Reports: Hx Cerebrovascular Accident - x 2. Denies: Hx Seizures Endocrine Medical History: Reports: Hx Diabetes Mellitus Type 1, Hx Diabetes Mellitus Type 2 Renal/ Medical History: Denies: Hx Peritoneal Dialysis Malignancy Medical History: GI Medical History: Reports: Hx Diverticulitis, Hx Gastroesophageal Reflux Disease Musculoskeletal Medical History: Reports Hx Arthritis, Reports Hx Musculoskeletal Deformity, Reports Hx Musculoskeletal Trauma Psychiatric Medical History: Reports: Hx Anxiety, Hx Post Traumatic Stress Disorder Denies: Hx Depression Infectious Medical History: Past Surgical History: Reports: Hx Abdominal Surgery - for diverticulitis, Hx Bowel Surgery - Colon resection due to diverticulitis, Hx Cardiac Catheterization, Hx Cardiac Surgery - 1984, ICD placement 2015, Hx Coronary Artery Bypass Graft, Hx Coronary Stent - 1984, Hx Thyroid Surgery, Other - AICD - Immunizations Immunizations up to date: Yes Hx Diphtheria, Pertussis, Tetanus Vaccination: Yes Hx Pneumococcal Vaccination: 05/26/10 Review of Systems - Review of Systems Notes: REVIEW OF SYSTEMS: CONSTITUTIONAL : Denies fever, chills, or sweats. Denies recent illness. Denies weight loss, recent hospitalizations. EENT: Denies visual changes, eye pain. Denies sore throat, oral lesions, difficulty swallowing. CARDIOVASCULAR: Denies chest pain. Denies palpitations. Denies lower extremity edema. RESPIRATORY: Denies cough. Denies shortness of breath, wheezing. GASTROINTESTINAL: Denies abdominal pain or distention. Denies nausea, vomiting , or diarrhea. Denies blood in vomitus, stools, or per rectum. Denies black, tarry stools. Denies constipation. GENITOURINARY: Denies difficulty urinating, painful urination, frequency, blood in urine, testicular pain or penile discharge. MUSCULOSKELETAL: Denies back or neck pain or stiffness. SKIN: Denies rash, lesions or sores. HEMATOLOGIC : Denies easy bruising or bleeding. LYMPHATIC: Denies swollen glands. NEUROLOGICAL: Denies confusion or altered mental status. Denies loss of consciousness. Denies dizziness or lightheadedness. Denies headache. Denies weakness or paralysis. Denies problems difficulty with ambulation, slurred speech. Denies sensory loss, numbness, or tingling. Denies seizures. PSYCHIATRIC: Denies anxiety or stress. Denies depression, suicidal ideation, or Physical Exam - Vital signs Vitals: Temp Pulse Resp BP Pulse Ox 97.8 F 80 32 H 122/82 90 L 05/02/18 11:53 05/02/18 11:53 12/08/18 11:53 05/02/18 11:53 05/02/18 11:53 - Notes Notes: PHYSICAL EXAMINATION: GENERAL: Well-appearing, well-nourished and in no acute distress. HEAD: Atraumatic, normocephalic. EYES: Pupils equal round and reactive to light, extraocular movements intact, sclera anicteric, conjunctiva are normal. ENT: Nares patent, oropharynx clear without exudates. Moist mucous membranes. NECK: Normal range of motion, supple without lymphadenopathy LUNGS: Breath sounds clear to auscultation bilaterally and equal. No wheezes rales or rhonchi. On nasal cannula requires constant home oxygen. HEART: Regular rate and rhythm without murmurs ABDOMEN: Soft, nontender, nondistended abdomen. No guarding, no rebound. No masses appreciated. Musculoskeletal: Normal range of motion, no pitting or edema. No cyanosis. Hand exam Symmetrically palpable radial and ulnar pulses. Cap refill less than 2 seconds on all digits. Intact sensation to light touch of the radial, median and ulnar nerves demonstrated by testing in the dorsal webspace of the thumb the distal palmar aspect of the index finger and lateral surface of the fifth finger. Two-point discrimination intact to 5 mm of discrimination in the affected digit. Intact motor function of the radial median and ulnar nerves demonstrated by strength of extension of the isolated distal joint of the index finger, hand steamer tender, and spreading of the second through fifth digits. Intact recurrent median nerve as demonstrated by ability to move down fully through opposition, abduction and flexion. No snuffbox tenderness. No swelling, erythema, warmth. NEUROLOGICAL: Cranial nerves grossly intact. Dysarthric ,normal sensory, motor exams PSYCH: Normal mood, normal affect. SKIN: Warm, Dry, normal turgor, no rashes or lesions noted. Course - Re-evaluation Re-evalutation: Hand X-Ray 05/02/18 13:17 IMPRESSION: 1. No acute fracture or dislocation of the right hand. Well corticated fragment adjacent to the ulnar styloid, likely related to remote prior trauma. 2. Generally mild osteoarthritis about the right hand. Temp Pulse Resp BP Pulse Ox 97.8 F 80 32 H 122/82 90 L 05/02/18 11:53 05/02/18 11:53 05/02/18 11:53 05/02/18 11:53 05/02/18 11:53 05/02/18 21:39 62-year-old male presents with chronic right hand pain. Has been experiencing this intermittently for several months. No acute injury. Vital signs reviewed upon arrival. Patient is afebrile, normotensive. He is hypoxic and I advised that he turn up his oxygen which was off. Previous medical records and nursing notes reviewed. Patient does not appear toxic or dehydrated. He is in no acute distress. He consistently asked me to hurry up because he wants to get out of the emergency room. X-ray of the hand was obtained and showed remote fracture and osteoarthritis. Patient was provided a wrist splint and advised to take Tylenol as needed for pain. Patient's exam is not consistent with infection, gout. Aid is at the bedside and is comfortable with discharge home. Patient was evaluated and treated as appropriate for the patient's presenting symptoms and complaint, with consideration of any critical or life threatening conditions that may be associated with their obtained history and exam as noted above. All results were discussed with patient and the patient's home health aide. Patient provided the opportunity to ask questions, and express concerns. Patient was educated on treatments based on their presumed diagnosis as noted above. At this time we will discharge the patient with return precautions and follow-up recommendations. Verbal discharge instructions given a the bedside. Medication warnings reviewed. Patient is in agreement with this plan and has verbalized understanding of return precautions. After careful consideration I feel that that patient can be safely discharged from the emergency department, they were advised to followup with a primary care physician in 2-3 days. Dictation on this chart was performed using voice recognition software and may result in unintended grammatical, spelling, syntax or errors. 05/02/18 21:41 - Vital Signs Vital signs: Temp Pulse Resp BP Pulse Ox 97.8 F 80 32 H 122/82 90 L 05/02/18 11:53 05/02/18 11:53 05/02/18 11:53 05/02/18 11:53 05/02/18 11:53 - Diagnostic Test Radiology reviewed: Image reviewed, Reports reviewed Discharge - Discharge Clinical Impression: Right hand pain, Hypoxia Osteoarthritis Qualifiers: Osteoarthritis location: hand Osteoarthritis type: unspecified Laterality: right Qualified Code(s): M19.041 - Primary osteoarthritis, right hand Condition: Good Disposition: HOME, SELF-CARE Instructions: Chronic Pain Control ([facility]), Osteoarthritis ([facility]) Prescriptions: Meloxicam [Mobic] 7.5 mg PO DAILY 7 Days #7 tablet Referrals: RICK ROBISON MD [Primary Care Provider] - Follow up as needed
--- NOTE | 2018-05-02 14:04 | RADIOLOGY REPORT (SQ) ---
EXAM DESCRIPTION: HAND RIGHT 3 VIEWS COMPLETED DATE/TIME: 05/02/2018 1:41 pm REASON FOR STUDY: pain COMPARISON: None. EXAM PARAMETERS: NUMBER OF VIEWS: Four views. TECHNIQUE: AP, lateral and oblique radiographic images acquired of the right hand. LIMITATIONS: None. FINDINGS: MINERALIZATION: Normal. BONES: No acute fracture or dislocation. No worrisome bone lesions. Well corticated fragment adjace nt to the ulnar styloid. JOINTS: No effusions. Generally mild osteoarthritic pattern degenerative change about the right hand . SOFT TISSUES: No soft tissue swelling. No foreign body. OTHER: No other significant finding. IMPRESSION: 1. No acute fracture or dislocation of the right hand. Well corticated fragment adjace nt to the ulnar styloid, likely related to remote prior trauma. 2. Generally mild osteoarthritis about the right hand. TECHNICAL DOCUMENTATION: JOB ID: [id number] [employer]- All Rights Reserved Reading location - IP/workstation name: [email or web address]
--- NOTE | 2018-05-03 10:34 | EKG REPORT ---
SEVERITY:- ABNORMAL ECG - SINUS RHYTHM IRBBB AND LPFB BORDERLINE R WAVE PROGRESSION, ANTERIOR LEADS : Confirmed by: Pooja Patel 03-May-2018 10:34:10
== END 2018-05-02 14:15 | disposition home or self-care (01) ==
LOC: ER 11:46
DX: M19.041 Primary osteoarthritis, right hand (principal); M79.641 Pain in right hand; G89.29 Other chronic pain; M25.531 Pain in right wrist; J44.9 Chronic obstructive pulmonary disease, unspecified; R09.02 Hypoxemia; I25.10 Atherosclerotic heart disease of native coronary artery without angina pectoris; I10 Essential (primary) hypertension; E10.9 Type 1 diabetes mellitus without complications; I69.328 Other speech and language deficits following cerebral infarction; Z99.3 Dependence on wheelchair; Z88.8 Allergy status to other drugs, medicaments and biological substances; Z87.891 Personal history of nicotine dependence; Z95.1 Presence of aortocoronary bypass graft; Z95.5 Presence of coronary angioplasty implant and graft
CPT/HCPCS: 93005; 99284; 73130; 93010; L3908 ×2

== ENCOUNTER 2018-05-07 11:42 | Emergency (ER) | payer OTHER, MEDICARE ==
--- NOTE | 2018-05-07 13:23 | ER Document Report ---
ED Medical Screen (RME) - General Chief Complaint: Shortness Of Breath Stated Complaint: SHORTNESS OF BREATH Time Seen by Provider: 05/07/18 13:18 Notes: ALEX KNIGHT Male : 1955 MedRec# [id number] 05/07/18 11:43 - ED Nursing Note by MASON WAYNE Num: [id number] : 1955 Patient Age: 62 Pt presents to the ED with complaints of SOB for the last few days without improvement. Pt is accompanied by his caregiver and states he has been feeling sick for the last few days and wanted to be seen. Pt is on 2L of oxygen via [place]. Pt also reports swelling to his bilateral legs. Initialized on 05/07/18 11:43 - END OF NOTE 62 years old male was seen here last week actually seen by me at triage. Diagnosed with CHF. He says when he was discharged he was not given any Lasix. Started having shortness of breath and swelling of the lower extremity therefore present to the ED. TRAVEL OUTSIDE OF THE [place] IN LAST 30 DAYS: No - Related Data Allergies/Adverse Reactions: captopril [From Capoten] Allergy (Severe, Verified 05/02/18 11:47) Angioedema atorvastatin calcium [From Lipitor] Allergy (Intermediate, Verified 05/02/18 11: 47) Angioedema clopidogrel [From Plavix] Allergy (Verified 05/02/18 11:47) rosuvastatin [From Crestor] Allergy (Verified 05/02/18 11:47) simvastatin [From Zocor] Allergy (Verified 05/02/18 11:47) Angioedema Past Medical History - Social History Family history: None - Past Medical History Cardiac Medical History: Reports: Hx Congestive Heart Failure - Systolic with EF of 25-30% as of 2D echo in July 2017, Hx Coronary Artery Disease, Hx Heart Attack - 2008, Hx Hypercholesterolemia, Hx Hypertension Pulmonary Medical History: Reports: Hx Asthma, Hx Bronchitis, Hx COPD, Hx Sleep Apnea Neurological Medical History: Reports: Hx Cerebrovascular Accident - x 2. Denies: Hx Seizures Endocrine Medical History: Reports: Hx Diabetes Mellitus Type 1, Hx Diabetes Mellitus Type 2 Renal/ Medical History: Denies: Hx Peritoneal Dialysis Malignancy Medical History: GI Medical History: Reports: Hx Diverticulitis, Hx Gastroesophageal Reflux Disease Musculoskeltal Medical History: Reports Hx Arthritis, Reports Hx Musculoskeletal Deformity, Reports Hx Musculoskeletal Trauma Psychiatric Medical History: Reports: Hx Anxiety, Hx Post Traumatic Stress Disorder Denies: Hx Depression Infectious Medical History: Past Surgical History: Reports: Hx Abdominal Surgery - for diverticulitis, Hx Bowel Surgery - Colon resection due to diverticulitis, Hx Cardiac Catheterization, Hx Cardiac Surgery - 1984, ICD placement 2015, Hx Coronary Artery Bypass Graft, Hx Coronary Stent - 1984, Hx Thyroid Surgery, Other - AICD - Immunizations Immunizations up to date: Yes Hx Diphtheria, Pertussis, Tetanus Vaccination: Yes History of Influenza Vaccine for 02/2017 - 07/2017 Season: Refused Physical Exam - Vital signs Vitals: Temp Pulse Resp BP Pulse Ox 98.5 F 90 22 H 142/81 H 90 L 05/07/18 11:52 05/07/18 11:52 05/07/18 11:52 05/07/18 11:52 05/07/18 11:52 Course - Vital Signs Vital signs: Temp Pulse Resp BP Pulse Ox 98.5 F 90 22 H 142/81 H 90 L 05/07/18 11:52 05/07/18 11:52 05/07/18 11:52 05/07/18 11:52 05/07/18 11:52 Doctor's Discharge - Discharge Referrals: RICK ROBISON MD [Primary Care Provider] - Follow up as needed
[2018-05-07 14:18] LABS: ABSOLUTE BASOPHILS # (AUTO) 0.1 10^3/uL (0.0-0.2); ABSOLUTE EOSINOPHILS # (AUTO) 0.1 10^3/uL (0.0-0.6); ABSOLUTE LYMPHOCYTES (AUTO) 0.8 10^3/uL (0.5-4.7); ABSOLUTE MONOCYTES (AUTO) 0.8 10^3/uL (0.1-1.4); ABSOLUTE NEUT (AUTO) 2.5 10^3/uL (1.7-8.2); BASOPHILS % (AUTO) 1.7 % (0-2); EOSINOPHILS % (AUTO) 2.8 % (0-6); HEMATOCRIT 40.5 % (37.9-51.0); HEMOGLOBIN 12.9 g/dL (13.5-17.0); LYMPHOCYTES % (AUTO) 19.8 % (13-45); MEAN CORPUSCULAR HEMOGLOBIN 27.8 pg (27.0-33.4); MEAN CORPUSCULAR HGB CONC 31.8 g/dL (32.0-36.0); MEAN CORPUSCULAR VOLUME 88 fl (80-97); MONOCYTES % (AUTO) 17.7 % (3-13); PLATELET COUNT 195 10^3/uL (150-450); RED BLOOD COUNT 4.63 10^6/uL (4.35-5.55); RED CELL DISTRIBUTION WIDTH 16.8 % (11.5-14.0); TOTAL CELLS COUNTED % (AUTO) 100 %; WHITE BLOOD COUNT 4.3 10^3/uL (4.0-10.5)
[2018-05-07 14:23] LABS: INTERNATIONAL RATION (INR) 1.01; PROTHROMBIN TIME 13.8 SEC (11.4-15.4)
[2018-05-07 14:41] LABS: ALANINE AMINOTRANSFERASE 11 U/L (21-72); ALBUMIN 4.1 g/dL (3.5-5.0); ALKALINE PHOSPHATASE 46 U/L (38-126); ASPARTATE AMINO TRANSFERASE 26 U/L (17-59); BILIRUBIN,DIRECT 0.5 mg/dL (0.0-0.4); BILIRUBIN,TOTAL 0.9 mg/dL (0.2-1.3); BLOOD UREA NITROGEN 27 mg/dL (7-20); CALCIUM 9.3 mg/dL (8.4-10.2); CHLORIDE 97 mmol/L (98-107); CREATINE KINASE 37 U/L (55-170); GLUCOSE 130 mg/dL (75-110); POTASSIUM 5.5 mmol/L (3.6-5.0); SODIUM 145.9 mmol/L (137-145); TOTAL PROTEIN 7.3 g/dL (6.3-8.2)
[2018-05-07 14:52] LABS: CREATINE KINASE MB 2.5 ng/mL (<4.55)
[2018-05-07 14:59] LABS: ANION GAP 7 (5-19)
[2018-05-07 15:04] LABS: CARBON DIOXIDE 42 mmol/L (22-30)
[2018-05-07 15:11] LABS: TROPONIN I 0.064 ng/mL
[2018-05-07] MEDS ORDERED: FUROSEMIDE INJ/PF 40 MG/4 ML SDV IV ONE (16:18)
--- NOTE | 2018-05-07 16:20 | ER Document Report ---
ED General - General Chief Complaint: Shortness Of Breath Stated Complaint: SHORTNESS OF BREATH Time Seen by Provider: 05/07/18 13:18 Mode of Arrival: Wheelchair Information source: Patient Notes: This is a 62-year-old man with a history of CVA (aphasia), CHF (oxygen dependent with 2 L nasal cannula) who presents to the emergency room with increasing shortness of breath. Patient denies any chest pain. He states that his symptoms are frequent. He does report increased swelling of the extremities per TRAVEL OUTSIDE OF THE [place] IN LAST 30 DAYS: No - HPI Onset: Last week Onset/Duration: Gradual Quality of pain: No pain Severity: None Pain Level: Denies Associated symptoms: Shortness of breath. denies: Chest pain, Fever Exacerbated by: Denies Relieved by: Denies Similar symptoms previously: Yes Recently seen / treated by doctor: Yes - Related Data Allergies/Adverse Reactions: captopril [From Capoten] Allergy (Severe, Verified 05/02/18 11:47) Angioedema atorvastatin calcium [From Lipitor] Allergy (Intermediate, Verified 05/02/18 11: 47) Angioedema clopidogrel [From Plavix] Allergy (Verified 05/02/18 11:47) rosuvastatin [From Crestor] Allergy (Verified 05/02/18 11:47) simvastatin [From Zocor] Allergy (Verified 05/02/18 11:47) Angioedema Past Medical History - General Information source: Patient - Social History Smoking Status: Former Smoker Cigarette use (# per day): No Chew tobacco use (# tins/day): No Frequency of alcohol use: None Drug Abuse: None Lives with: Alone Family History: Reviewed & Not Pertinent, CAD, DM, Hypertension, Thyroid Disfunction Patient has suicidal ideation: No Patient has homicidal ideation: No - Past Medical History Cardiac Medical History: Reports: Hx Congestive Heart Failure - Systolic with EF of 25-30% as of 2D echo in July 2017, Hx Coronary Artery Disease, Hx Heart Attack - 2008, Hx Hypercholesterolemia, Hx Hypertension Pulmonary Medical History: Reports: Hx Asthma, Hx Bronchitis, Hx COPD, Hx Sleep Apnea Neurological Medical History: Reports: Hx Cerebrovascular Accident - x 2. Denies: Hx Seizures Endocrine Medical History: Reports: Hx Diabetes Mellitus Type 1, Hx Diabetes Mellitus Type 2 Renal/ Medical History: Denies: Hx Peritoneal Dialysis Malignancy Medical History: GI Medical History: Reports: Hx Diverticulitis, Hx Gastroesophageal Reflux Disease Musculoskeletal Medical History: Reports Hx Arthritis, Reports Hx Musculoskeletal Deformity, Reports Hx Musculoskeletal Trauma Psychiatric Medical History: Reports: Hx Anxiety, Hx Post Traumatic Stress Disorder Denies: Hx Depression Infectious Medical History: Past Surgical History: Reports: Hx Abdominal Surgery - for diverticulitis, Hx Bowel Surgery - Colon resection due to diverticulitis, Hx Cardiac Catheterization, Hx Cardiac Surgery - 1984, ICD placement 2015, Hx Coronary Artery Bypass Graft, Hx Coronary Stent - 1984, Hx Thyroid Surgery, Other - AICD - Immunizations Immunizations up to date: Yes Hx Diphtheria, Pertussis, Tetanus Vaccination: Yes Hx Pneumococcal Vaccination: 05/26/10 Review of Systems - Review of Systems Constitutional: denies: Chills, Fever EENT: No symptoms reported Cardiovascular: No symptoms reported Respiratory: See HPI Gastrointestinal: No symptoms reported Genitourinary: No symptoms reported Male Genitourinary: No symptoms reported Musculoskeletal: No symptoms reported Skin: No symptoms reported Hematologic/Lymphatic: No symptoms reported Neurological/Psychological: No symptoms reported Physical Exam - Vital signs Vitals: Temp Pulse Resp BP Pulse Ox 98.5 F 90 22 H 142/81 H 90 L 05/07/18 11:52 05/07/18 11:52 05/07/18 11:52 05/07/18 11:52 05/07/18 11:52 Notes: Physical exam: GENERAL: HEAD: Atraumatic, normocephalic. EYES: Pupils equal round and reactive to light, extraocular movements intact, sclera anicteric, conjunctiva are normal. ENT: TMs normal, nares patent, oropharynx clear without exudates. Moist mucous membranes. NECK: Normal range of motion, supple without obvious mass or JVD. LUNGS: Breath sounds clear to auscultation bilaterally and equal. No wheezes rales or rhonchi. HEART: Regular rate and rhythm without murmurs, rubs or gallops. ABDOMEN: Soft, normoactive bowel sounds. No tenderness to palpation. No guarding, no rebound. No masses appreciated. EXTREMITIES: Mild 1+ edema bilaterally NEUROLOGICAL: Cranial nerves II through XII grossly intact. Normal speech, moving all extremities. PSYCH: Normal mood, normal affect. SKIN: Warm, Dry, normal turgor, no rashes or lesions noted. Course - Re-evaluation Re-evalutation: Note: Patient's chest x-ray is relatively stable. His BNP is actually improved from previous. He is hemodynamically stable and is up walking around to the bathroom without difficulty. He is demanding to leave And does not want to stay for any further evaluation. He will follow-up with his primary care doctor. I think his CHF is relatively stable at this time. 05/07/18 18:25 05/08/18 01:51 - Vital Signs Vital signs: Temp Pulse Resp BP Pulse Ox 98.5 F 90 25 H 141/70 H 97 05/07/18 11:52 05/07/18 11:52 05/07/18 18:13 05/07/18 18:13 05/07/18 18:13 - Laboratory Result Diagrams: 05/07/18 14:00 05/07/18 14:00 Laboratory results interpreted by me: 05/07/18 05/07/18 05/07/18 14:00 14:00 14:00 Hgb 12.9 L MCHC 31.8 L RDW 16.8 H Monocytes % 17.7 H Sodium 145.9 H Potassium 5.5 H Chloride 97 L Carbon Dioxide 42 H* BUN 27 H Creatinine 1.28 H Est GFR (Non-Af Amer) 57 L Glucose 130 H Direct Bilirubin 0.5 H ALT 11 L Creatine Kinase 37 L NT-Pro-B Natriuret Pep 7140 H - Diagnostic Test Radiology reviewed: Image reviewed, Reports reviewed - Chest x-ray looks clear Discharge - Discharge Clinical Impression: CHF Condition: Stable Disposition: HOME, SELF-CARE Additional Instructions: Note: As we discussed, your chest x-ray looked good, your blood tests look stable. I want you to follow-up with your primary care doctor. Return to the emergency room for worsening shortness of breath or any concerns or getting worse. Continue current medicines Prescriptions: Furosemide [Lasix 20 mg Tablet] 20 mg PO QAM #10 tablet Referrals: RICK ROBISON MD [Primary Care Provider] - Follow up in 3-5 days
--- NOTE | 2018-05-07 16:35 | RADIOLOGY REPORT (SQ) ---
EXAM DESCRIPTION: CHEST SINGLE VIEW COMPLETED DATE/TIME: 05/07/2018 4:23 pm REASON FOR STUDY: sob COMPARISON: 05/02/2018 EXAM PARAMETERS: NUMBER OF VIEWS: One view. TECHNIQUE: Single frontal radiographic view of the chest acquired. RADIATION DOSE: NA LIMITATIONS: None. FINDINGS: LUNGS AND PLEURA: The previously described bibasilar airspace opacities and associated rahul ateral pleural effusions appear essentially unchanged MEDIASTINUM AND HILAR STRUCTURES: No masses. Contour normal. HEART AND VASCULAR STRUCTURES: Cardiac silhouette remains enlarged. BONES: No acute findings. HARDWARE: AICD device is unchanged in position. OTHER: No other significant finding. IMPRESSION: No significant interval change. Findings as noted above. TECHNICAL DOCUMENTATION: JOB ID: [id number] [employer]- All Rights Reserved Reading location - IP/workstation name: [email or web address]
[2018-05-07 18:25] VITALS: BP 141/70
--- NOTE | 2018-05-07 21:24 | EKG REPORT ---
SEVERITY:- ABNORMAL ECG - SINUS RHYTHM PROBABLE LEFT ATRIAL ABNORMALITY IRBBB AND LPFB PROBABLE INFERIOR INFARCT, AGE INDETERMINATE CONSIDER ANTERIOR INFARCT : Confirmed by: Carolyn Garsia MD 07-May-2018 21:22:56
== END 2018-05-07 18:39 | disposition home or self-care (01) ==
LOC: ER 11:42
DX: I11.0 Hypertensive heart disease with heart failure (principal); I50.9 Heart failure, unspecified; J44.9 Chronic obstructive pulmonary disease, unspecified; I25.10 Atherosclerotic heart disease of native coronary artery without angina pectoris; I25.2 Old myocardial infarction; E11.9 Type 2 diabetes mellitus without complications; Z95.810 Presence of automatic (implantable) cardiac defibrillator; Z88.8 Allergy status to other drugs, medicaments and biological substances; Z87.891 Personal history of nicotine dependence
CPT/HCPCS: 93005; 99285; 96374; 36415; 82553; 82550; 85025; 85610; 80053; 84484; 83880; 71045; 93010; J1940

== ENCOUNTER 2018-05-08 09:20 | Emergency (ER) | payer OTHER, MEDICARE ==
--- NOTE | 2018-05-08 10:39 | ER Document Report ---
ED General - General Chief Complaint: Shortness Of Breath Stated Complaint: SHORTNESS OF BREATH/SWOLLWN HANDS AND FEET Time Seen by Provider: 05/08/18 09:43 Mode of Arrival: Wheelchair Information source: Patient Notes: Chief complaint: Cannot take Lasix pills History of complain:( obtained from----patient) 62 years old male with a history of multiple visit to the ED was seen by me yesterday, returned today because apparently cannot take Lasix pill form. Which was prescribed to him yesterday in the ED. Requesting liquid form. Otherwise status has not changed. Onset: Long-standing gradual Duration: Long-standing Severity: Mild Quality: Mild Context: CVA and CHF Exacerbating factor and relieving factors: REVIEW OF SYSTEMS: CONSTITUTIONAL : Denies fever, chills, or sweats. Denies recent illness. EENT: Denies eye, ear, throat, or mouth pain or symptoms. Denies nasal or sinus congestion or discharge. Denies throat, tongue, or mouth swelling or difficulty swallowing. GASTROINTESTINAL: Denies distention. Denies nausea, vomiting, or diarrhea. Denies blood in vomitus, stools, or per rectum. Denies black, tarry stools. Denies constipation. GENITOURINARY: Denies difficulty urinating, painful urination, burning, frequency, blood in urine, or discharge. FEMALE GENITOURINARY: Denies vaginal bleeding, heavy or abnormal periods, irregular periods. Denies vaginal discharge or odor. MUSCULOSKELETAL: Denies back or neck pain or stiffness. Denies joint pain or swelling. SKIN: Denies rash, lesions or sores. HEMATOLOGIC : Denies easy bruising or bleeding. LYMPHATIC: Denies swollen, enlarged glands. NEUROLOGICAL: Denies confusion or altered mental status. Denies passing out or loss of consciousness. Denies dizziness or lightheadedness. Denies headache. Denies weakness or paralysis or loss of use of either side. Denies problems with gait or speech. Denies sensory loss, numbness, or tingling. Denies seizures. PSYCHIATRIC: Denies anxiety or stress. Denies depression, suicidal ideation, or homicidal ideation. ALL OTHER SYSTEMS REVIEWED AND NEGATIVE. PHYSICAL EXAMINATION: GENERAL: , well-nourished and in no acute distress. HEAD: Atraumatic, normocephalic. EYES: Pupils equal round and reactive to light, extraocular movements intact, conjunctiva are normal. ENT: Nares patent, oropharynx clear without exudates. Moist mucous membranes. NECK: Normal range of motion, supple without lymphadenopathy LUNGS: Breath sounds clear to auscultation bilaterally and equal. No wheezes rales or rhonchi. HEART: Regular rate and rhythm without murmurs ABDOMEN: Soft, nontender, nondistended abdomen. No guarding, no rebound. No masses appreciated. Examination of genitals-deferred Musculoskeletal: Bilateral lower leg chronic stasis dermatosis PSYCH: Normal mood, normal affect. SKIN: Warm, Dry, normal turgor, no rashes or lesions noted. Dictation was performed using [employer] voice recognition software TRAVEL OUTSIDE OF THE [place] IN LAST 30 DAYS: No - HPI Notes: Dictated - Related Data Allergies/Adverse Reactions: captopril [From Capoten] Allergy (Severe, Verified 05/08/18 09:21) Angioedema atorvastatin calcium [From Lipitor] Allergy (Intermediate, Verified 05/08/18 09: 21) Angioedema clopidogrel [From Plavix] Allergy (Verified 05/08/18 09:21) rosuvastatin [From Crestor] Allergy (Verified 05/08/18 09:21) simvastatin [From Zocor] Allergy (Verified 05/08/18 09:21) Angioedema Past Medical History - Social History Smoking Status: Former Smoker Frequency of alcohol use: None Drug Abuse: None Lives with: Family Family History: Reviewed & Not Pertinent, CAD, DM, Hypertension, Thyroid Disfunction Patient has suicidal ideation: No Patient has homicidal ideation: No - Past Medical History Cardiac Medical History: Reports: Hx Congestive Heart Failure - Systolic with EF of 25-30% as of 2D echo in July 2017, Hx Coronary Artery Disease, Hx Heart Attack - 2008, Hx Hypercholesterolemia, Hx Hypertension Pulmonary Medical History: Reports: Hx Asthma, Hx Bronchitis, Hx COPD, Hx Sleep Apnea Neurological Medical History: Reports: Hx Cerebrovascular Accident - x 2. Denies: Hx Seizures Endocrine Medical History: Reports: Hx Diabetes Mellitus Type 1, Hx Diabetes Mellitus Type 2 Renal/ Medical History: Denies: Hx Peritoneal Dialysis Malignancy Medical History: GI Medical History: Reports: Hx Diverticulitis, Hx Gastroesophageal Reflux Disease Musculoskeletal Medical History: Reports Hx Arthritis, Reports Hx Musculoskeletal Deformity, Reports Hx Musculoskeletal Trauma Psychiatric Medical History: Reports: Hx Anxiety, Hx Post Traumatic Stress Disorder Denies: Hx Depression Infectious Medical History: Past Surgical History: Reports: Hx Abdominal Surgery - for diverticulitis, Hx Bowel Surgery - Colon resection due to diverticulitis, Hx Cardiac Catheterization, Hx Cardiac Surgery - 1984, ICD placement 2015, Hx Coronary Artery Bypass Graft, Hx Coronary Stent - 1984, Hx Thyroid Surgery, Other - AICD - Immunizations Immunizations up to date: Yes Hx Diphtheria, Pertussis, Tetanus Vaccination: Yes Hx Pneumococcal Vaccination: 05/26/10 Review of Systems - Review of Systems Notes: Dictated Physical Exam - Vital signs Vitals: Temp Pulse Resp BP Pulse Ox 97.6 F 87 16 134/85 H 90 L 05/08/18 09:37 05/08/18 09:37 05/08/18 09:37 05/08/18 09:37 05/08/18 09:37 - Notes Notes: Dictated Course - Vital Signs Vital signs: Temp Pulse Resp BP Pulse Ox 97.6 F 87 16 134/85 H 90 L 05/08/18 09:37 05/08/18 09:37 05/08/18 09:37 05/08/18 09:37 05/08/18 09:37 Discharge - Discharge Clinical Impression: Congestive heart failure Qualifiers: Heart failure type: unspecified Heart failure chronicity: chronic Qualified Code(s): I50.9 - Heart failure, unspecified Condition: Fair Instructions: Lasix Referrals: RICK ROBISON MD [Primary Care Provider] - Follow up as needed
[2018-05-08 17:18] VITALS: BP 111/86
== END 2018-05-08 17:29 | disposition home or self-care (01) ==
LOC: ER 09:20
DX: I50.9 Heart failure, unspecified (principal); R06.02 Shortness of breath; M79.89 Other specified soft tissue disorders; I25.10 Atherosclerotic heart disease of native coronary artery without angina pectoris; E78.00 Pure hypercholesterolemia, unspecified; I11.0 Hypertensive heart disease with heart failure; E11.9 Type 2 diabetes mellitus without complications; Z86.73 Personal history of transient ischemic attack (TIA), and cerebral infarction without residual deficits; Z95.1 Presence of aortocoronary bypass graft; I25.2 Old myocardial infarction
CPT/HCPCS: 99284

== ENCOUNTER 2018-05-09 01:47 | Emergency (ER) | payer OTHER, MEDICARE ==
--- NOTE | 2018-05-09 02:59 | ER Document Report ---
ED General - General Chief Complaint: Chest Pain Stated Complaint: CHEST PAIN Time Seen by Provider: 05/09/18 02:55 Notes: Patient is a 62-year-old male that comes to the emergency department for chief complaint of shortness of breath, tightness across his chest, intermittent abdominal pain and nausea. Denies fever, vomiting. He was here yesterday, he was also here the day before that. Patient states that he was released from long-term care facility where he was performing rehab, he states he was kicked out of his motel and now he is staying in his car. Past medical history includes CVA with aphasia, COPD, CAD, pulmonary hypertension, CHF, anxiety, type 2 diabetes. He is on 2 L nasal cannula at all times. He is giving varying answers about whether or not he is taking his medications currently. TRAVEL OUTSIDE OF THE [place] IN LAST 30 DAYS: No - Related Data Allergies/Adverse Reactions: captopril [From Capoten] Allergy (Severe, Verified 05/08/18 09:21) Angioedema atorvastatin calcium [From Lipitor] Allergy (Intermediate, Verified 05/08/18 09: 21) Angioedema clopidogrel [From Plavix] Allergy (Verified 05/08/18 09:21) rosuvastatin [From Crestor] Allergy (Verified 05/08/18 09:21) simvastatin [From Zocor] Allergy (Verified 05/08/18 09:21) Angioedema Past Medical History - General Information source: Patient, Friend - Social History Smoking Status: Former Smoker Frequency of alcohol use: None Drug Abuse: None Lives with: Friend Family History: Reviewed & Not Pertinent, CAD, DM, Hypertension, Thyroid Disfunction - Past Medical History Cardiac Medical History: Reports: Hx Congestive Heart Failure - Systolic with EF of 25-30% as of 2D echo in July 2017, Hx Coronary Artery Disease, Hx Heart Attack - 2008, Hx Hypercholesterolemia, Hx Hypertension Pulmonary Medical History: Reports: Hx Asthma, Hx Bronchitis, Hx COPD, Hx Sleep Apnea Neurological Medical History: Reports: Hx Cerebrovascular Accident - x 2. Denies: Hx Seizures Endocrine Medical History: Reports: Hx Diabetes Mellitus Type 1, Hx Diabetes Mellitus Type 2 Renal/ Medical History: Denies: Hx Peritoneal Dialysis Malignancy Medical History: GI Medical History: Reports: Hx Diverticulitis, Hx Gastroesophageal Reflux Disease Musculoskeletal Medical History: Reports Hx Arthritis, Reports Hx Musculoskeletal Deformity, Reports Hx Musculoskeletal Trauma Psychiatric Medical History: Reports: Hx Anxiety, Hx Post Traumatic Stress Disorder Denies: Hx Depression Infectious Medical History: Past Surgical History: Reports: Hx Abdominal Surgery - for diverticulitis, Hx Bowel Surgery - Colon resection due to diverticulitis, Hx Cardiac Catheterization, Hx Cardiac Surgery - 1984, ICD placement 2015, Hx Coronary Artery Bypass Graft, Hx Coronary Stent - 1984, Hx Thyroid Surgery, Other - AICD - Immunizations Immunizations up to date: Yes Hx Diphtheria, Pertussis, Tetanus Vaccination: Yes Hx Pneumococcal Vaccination: 05/26/10 Review of Systems - Review of Systems Constitutional: See HPI EENT: No symptoms reported Cardiovascular: No symptoms reported Respiratory: See HPI Gastrointestinal: See HPI Genitourinary: No symptoms reported Male Genitourinary: No symptoms reported Musculoskeletal: No symptoms reported Skin: No symptoms reported Hematologic/Lymphatic: No symptoms reported Neurological/Psychological: No symptoms reported Physical Exam - Vital signs Vitals: Temp Pulse Resp BP Pulse Ox 98.6 F 86 18 138/93 H 100 05/09/18 01:56 05/09/18 01:56 05/09/18 01:56 05/09/18 01:56 05/09/18 01:56 - Notes Notes: GENERAL: Alert, interacts well. No acute distress. HEAD: Normocephalic, atraumatic. EYES: Pupils equal, round, and reactive to light. Extraocular movements intact. ENT: Oral mucosa moist, tongue midline. Oropharynx unremarkable. Airway patent. Nares patent, no nasal septal hematoma, TM's intact. NECK: Full range of motion. Supple. Trachea midline. LUNGS: Mildly decreased bilaterally, minimal soft rales in the bases, no tachypnea, no respiratory distress. HEART: Regular rate and rhythm. No murmur ABDOMEN: Soft, non-tender. Non-distended. Bowel sounds present in all 4 quadrants. GENITOURINARY: Deferred EXTREMITIES: Moves all 4 extremities spontaneously. No edema, normal radial and dorsalis pedis pulses bilaterally. No cyanosis. BACK: no cervical, thoracic, lumbar midline tenderness. No saddle anesthesia, normal distal neurovascular exam. NEUROLOGICAL: Alert and oriented x3. Chronic expressive aphasia. [cranial nerves II through XII grossly intact]. PSYCH: Normal affect, normal mood. SKIN: Warm, dry, normal turgor. No rashes or lesions noted. Course - Re-evaluation Re-evalutation: EKG showing right bundle branch block, sinus rhythm at a rate of 90, no T wave inversions or ST segment changes in consecutive leads. Flattened T waves inferiorly. No significant change from prior. QTC of 441. Chest x-ray shows trace pleural effusions, no overt vascular congestion, no significant change from 2 days ago. Patient is not hypoxic on his normal oxygen , he is not tachypneic, he speaks loudly and energetically. He ambulates without difficulty or tachypnea. BNP is actually lower than previously, troponin is at his baseline, symptoms have been going on for several days. This appears to be close to his baseline. I asked patient he states the x-ray does not feel any worse than his usual. CBC, chemistry generally unremarkable. On reevaluation patient explains his situation more. He states that he is actually been living in his car with his director and they have been driving around for the past few days to try to find another place to stay after he was kicked out of his motel. He states that he was going to go home after discharge from rehab but his house will need 1-2 more weeks to repair. He has already had a employment case manager consult placed but they were supposed to see him on Friday which is in 2 days from now. He is asking if he can stay and see the employment case manager this morning. He states he actually has no other complaints or reason to be here. His director affirms all of this information. He states he is just not sure what to do in this situation. He asks if he can have breakfast and stay to talk to the employment case manager. I am being told that the employment case manager is to come in this morning, employment case manager consult was placed, patient is pending this, patient is discharged otherwise. Patient states satisfaction and agreement. - Vital Signs Vital signs: Temp Pulse Resp BP Pulse Ox 98.6 F 86 18 138/93 H 100 05/09/18 01:56 05/09/18 01:56 05/09/18 01:56 05/09/18 01:56 05/09/18 01:56 - Laboratory Result Diagrams: 05/09/18 03:20 05/09/18 03:40 Laboratory results interpreted by me: 05/09/18 05/09/18 05/09/18 03:20 03:40 03:40 Hgb 12.5 L RDW 16.4 H Monocytes % (Manual) 23 H Carbon Dioxide 39 H BUN 24 H Direct Bilirubin 0.5 H ALT 16 L NT-Pro-B Natriuret Pep 6020 H Discharge - Discharge Clinical Impression: Shortness of breath, Homelessness Condition: Stable Disposition: HOME, SELF-CARE Additional Instructions: Your evaluation does not show any concerning worsening abnormality compared to prior. Follow-up with case management. Follow-up closely with your primary care provider. Return to the emergency department for any concerning or worsening symptoms including difficulty breathing, fever, chest pain, vomiting, passing out, etc. Referrals: RICK ROBISON MD [Primary Care Provider] - Follow up as needed
--- NOTE | 2018-05-09 03:17 | RADIOLOGY REPORT (SQ) ---
EXAM DESCRIPTION: XR CHEST 1 VIEW COMPLETED DATE/TME: 05/09/2018 02:57 CLINICAL HISTORY: 62 years, Male, shortness of breath COMPARISON: 05/07/2018 chest NUMBER OF VIEWS: 1 TECHNIQUE: Portable chest LIMITATIONS: None. FINDINGS: Cardiomegaly. Small bibasilar effusions with low lung volumes, as before. Left-sided pacing device. No pneumothorax. IMPRESSION: Cardiac megaly with small bibasilar effusions and low lung volumes copyright 2010 [employer]- All Rights Reserved
[2018-05-09 03:37] LABS: HEMATOCRIT 38.5 % (37.9-51.0); HEMOGLOBIN 12.5 g/dL (13.5-17.0); MEAN CORPUSCULAR HEMOGLOBIN 28.1 pg (27.0-33.4); MEAN CORPUSCULAR HGB CONC 32.6 g/dL (32.0-36.0); MEAN CORPUSCULAR VOLUME 86 fl (80-97); PLATELET COUNT 199 10^3/uL (150-450); RED BLOOD COUNT 4.47 10^6/uL (4.35-5.55); RED CELL DISTRIBUTION WIDTH 16.4 % (11.5-14.0); WHITE BLOOD COUNT 4.7 10^3/uL (4.0-10.5)
[2018-05-09 03:57] LABS: ABSOLUTE LYMPHOCYTES# (MANUAL) 1.1 10^3/uL (0.5-4.7); ABSOLUTE MONOCYTES # (MANUAL) 1.3 10^3/uL (0.1-1.4); ABSOLUTE NEUTROPHILS# (MANUAL) 2.3 10^3/uL (1.7-8.2); BASOPHILS % (MANUAL) 0 % (0-2); EOSINOPHILS % (MANUAL) 1 % (0-6); LYMPHOCYTES % (MANUAL) 22 % (13-45); TOTAL CELLS COUNTED 100
[2018-05-09 03:58] LABS: ANISOCYTOSIS 1+; PLATELET COMMENT ADEQUATE; SEGMENTED NEUTROPHILS % (MAN) 52 % (42-78); TOXIC VACUOLATION PRESENT
[2018-05-09 03:59] LABS: MONOCYTES % (MANUAL) 23 % (3-13)
[2018-05-09 04:13] LABS: ALANINE AMINOTRANSFERASE 16 U/L (21-72); ALBUMIN 3.8 g/dL (3.5-5.0); ALKALINE PHOSPHATASE 58 U/L (38-126); ANION GAP 6 (5-19); ASPARTATE AMINO TRANSFERASE 29 U/L (17-59); BILIRUBIN,DIRECT 0.5 mg/dL (0.0-0.4); BILIRUBIN,TOTAL 1.1 mg/dL (0.2-1.3); BLOOD UREA NITROGEN 24 mg/dL (7-20); CALCIUM 9.1 mg/dL (8.4-10.2); CARBON DIOXIDE 39 mmol/L (22-30); CHLORIDE 99 mmol/L (98-107); GLUCOSE 96 mg/dL (75-110); SODIUM 143.7 mmol/L (137-145); TOTAL PROTEIN 6.9 g/dL (6.3-8.2)
[2018-05-09 04:32] LABS: TROPONIN I 0.068 ng/mL
--- NOTE | 2018-05-09 07:46 | EKG REPORT ---
SEVERITY:- ABNORMAL ECG - SINUS RHYTHM IRBBB AND LPFB : Confirmed by: Carolyn Garsia MD 09-May-2018 07:45:47
[2018-05-09 10:01] VITALS: BP 140/96
== END 2018-05-09 10:02 | disposition home or self-care (01) ==
LOC: ER 01:47
DX: R06.02 Shortness of breath (principal); Z59.0 Homelessness; R07.9 Chest pain, unspecified; R10.9 Unspecified abdominal pain; R11.0 Nausea; J44.9 Chronic obstructive pulmonary disease, unspecified; I27.20 Pulmonary hypertension, unspecified; I50.9 Heart failure, unspecified; E11.9 Type 2 diabetes mellitus without complications; Z87.891 Personal history of nicotine dependence; I25.10 Atherosclerotic heart disease of native coronary artery without angina pectoris
CPT/HCPCS: 36415; 71045; 80053; 83690; 83880; 84484; 85025; 93005; 93010; 99285

== ENCOUNTER 2018-05-11 08:47 | Inpatient (IN) | payer OTHER, MEDICARE ==
--- NOTE | 2018-05-11 09:19 | ER Document Report ---
ED General - General Chief Complaint: Breathing Difficulty Stated Complaint: DIFFICULTY BREATHING Time Seen by Provider: 05/11/18 09:17 Notes: Patient is a 62-year-old male with history of CHF and COPD that presents to the emergency department for chief complaint of shortness of breath, and leg swelling. Patient is well-known to this emergency department, seen multiple times this week, for similar complaints. Patient states that he has been having more shortness of breath, he has been using his oxygen at home, he is currently living out of his car, back and forth, he was at a rehab facility, but was subsequently kicked out of there. He is also noticed that his legs are more swollen as well as his hands, but denies any associated chest pain today, nausea or vomiting. He is supposed to be on a water pill, but has not had it recently. Past Medical History: CHF, COPD, diabetes mellitus, GERD Past Surgical History: AICD placement, CABG, colon resection Social History: Former smoker, denies current alcohol or drug use. Family History: Reviewed and noncontributory for presenting illness Allergies: Reviewed, see documented allergy list. REVIEW OF SYSTEMS: Other than noted above, the 12 point review of systems was reviewed with the patient and were negative, all pertinent findings are included in the HPI. PHYSICAL EXAMINATION: Vital signs reviewed, nursing noted reviewed. GENERAL: Elderly male, no acute distress at this time HEAD: Atraumatic, normocephalic. EYES: Eyes appear normal, extraocular movements intact, sclera anicteric, conjunctiva are normal. ENT: nares patent, oropharynx clear without exudates. Moist mucous membranes. NECK: Normal range of motion, supple without lymphadenopathy LUNGS: Lung sounds diminished, he was noted to have rales noted at the bases bilaterally, no acute respiratory distress HEART: Regular rate and rhythm without murmurs ABDOMEN: Soft, nontender, normoactive bowel sounds. No rebound, guarding, or rigidity. No masses appreciated. EXTREMITIES: Nontender, good range of motion, bilateral lower extremity edema, 1 + to the proximal tibias. NEUROLOGICAL: No focal neurological deficits. Moves all extremities spontaneously Motor and sensory grossly intact on exam. PSYCH: Normal mood, normal affect. SKIN: Warm, Dry, normal turgor, no rashes or lesions noted on exposed skin TRAVEL OUTSIDE OF THE [place] IN LAST 30 DAYS: No - Related Data Allergies/Adverse Reactions: captopril [From Capoten] Allergy (Severe, Verified 05/11/18 08:49) Angioedema atorvastatin calcium [From Lipitor] Allergy (Intermediate, Verified 05/11/18 08: 49) Angioedema clopidogrel [From Plavix] Allergy (Verified 05/11/18 08:49) rosuvastatin [From Crestor] Allergy (Verified 05/11/18 08:49) simvastatin [From Zocor] Allergy (Verified 05/11/18 08:49) Angioedema Past Medical History - Social History Smoking Status: Former Smoker Family History: Reviewed & Not Pertinent, CAD, DM, Hypertension, Thyroid Disfunction - Past Medical History Cardiac Medical History: Reports: Hx Congestive Heart Failure - Systolic with EF of 25-30% as of 2D echo in July 2017, Hx Coronary Artery Disease, Hx Heart Attack - 2008, Hx Hypercholesterolemia, Hx Hypertension Pulmonary Medical History: Reports: Hx Asthma, Hx Bronchitis, Hx COPD, Hx Sleep Apnea Neurological Medical History: Reports: Hx Cerebrovascular Accident - x 2. Denies: Hx Seizures Endocrine Medical History: Reports: Hx Diabetes Mellitus Type 1, Hx Diabetes Mellitus Type 2 Renal/ Medical History: Denies: Hx Peritoneal Dialysis Malignancy Medical History: GI Medical History: Reports: Hx Diverticulitis, Hx Gastroesophageal Reflux Disease Musculoskeletal Medical History: Reports Hx Arthritis, Reports Hx Musculoskeletal Deformity, Reports Hx Musculoskeletal Trauma Psychiatric Medical History: Reports: Hx Anxiety, Hx Post Traumatic Stress Disorder Denies: Hx Depression Infectious Medical History: Past Surgical History: Reports: Hx Abdominal Surgery - for diverticulitis, Hx Bowel Surgery - Colon resection due to diverticulitis, Hx Cardiac Catheterization, Hx Cardiac Surgery - 1984, ICD placement 2015, Hx Coronary Artery Bypass Graft, Hx Coronary Stent - 1984, Hx Thyroid Surgery, Other - AICD - Immunizations Immunizations up to date: Yes Hx Diphtheria, Pertussis, Tetanus Vaccination: Yes Hx Pneumococcal Vaccination: 05/26/10 Physical Exam - Vital signs Vitals: Temp Pulse Resp BP Pulse Ox 98.2 F 78 20 126/87 H 93 05/11/18 09:01 05/11/18 09:01 05/11/18 09:01 05/11/18 09:01 05/11/18 09:01 Course - Re-evaluation Re-evalutation: Patient seen and examined vital signs reviewed. Laboratory data and imaging were ordered as appropriate for the patient's presenting symptoms and complaint, with consideration of any critical or life threatening conditions that may be associated with their obtained history and exam as noted above. Patient was treated with IV Lasix, Zofran for his nausea, and DuoNeb breathing treatments for his shortness of breath given history of COPD Results were reviewed when available and demonstrated DEANNA, his creatinine went from 1 to 1.45 in less than 38 hours, suspect type II cardiorenal syndrome, secondary to vascular congestion, as the patient does have increased lower extremity edema, and pulmonary edema, troponin was 0.07, which appears to be around the patient's baseline, due to his severe congestive heart failure, do not suspect NSTEMI at this time. The patient was re-evaluated and was stable, symptoms improved, but still feeling short of breath Evaluation was most consistent with acute on chronic exacerbation of congestive heart failure, and acute kidney injury. Results were discussed with the patient at this point after careful consideration I feel that that patient should be admitted to the hospital. This was discussed with the patient that it is in the best interest for their care to be admitted for further evaluation and management. Patient agreed with this plan of care. A call was placed to the admitted physician, Dr. Gerardo who graciously accepted the patient onto their service. *Note is created using voice recognition software and may contain spelling, syntax or grammatical errors. Laboratory 05/11/18 05/11/18 05/11/18 09:35 09:35 09:35 WBC 5.2 RBC 4.76 Hgb 13.3 L Hct 41.6 MCV 87 MCH 27.9 MCHC 31.9 L RDW 16.7 H Plt Count 156 Seg Neutrophils % 59.6 Lymphocytes % 19.7 Monocytes % 15.1 H Eosinophils % 4.4 Basophils % 1.2 Absolute Neutrophils 3.1 Absolute Lymphocytes 1.0 Absolute Monocytes 0.8 Absolute Eosinophils 0.2 Absolute Basophils 0.1 Sodium 138.6 Potassium 5.2 H Chloride 96 L Carbon Dioxide 33 H Anion Gap 10 BUN 26 H Creatinine 1.45 H Est GFR ( Amer) 59 L Est GFR (Non-Af Amer) 49 L Glucose 173 H Calcium 8.8 Total Bilirubin 0.7 Direct Bilirubin 0.4 Neonat Total Bilirubin Not Reportable Neonat Direct Bilirubin Not Reportable Neonat Indirect Bili Not Reportable AST 25 ALT 12 L Alkaline Phosphatase 58 Creatine Kinase 37 L Troponin I 0.071 NT-Pro-B Natriuret Pep Total Protein 6.6 Albumin 3.9 TSH 05/11/18 05/11/18 05/11/18 09:35 09:35 12:30 WBC RBC Hgb Hct MCV MCH MCHC RDW Plt Count Seg Neutrophils % Lymphocytes % Monocytes % Eosinophils % Basophils % Absolute Neutrophils Absolute Lymphocytes Absolute Monocytes Absolute Eosinophils Absolute Basophils Sodium Potassium Chloride Carbon Dioxide Anion Gap BUN Creatinine Est GFR ( Amer) Est GFR (Non-Af Amer) Glucose Calcium Total Bilirubin Direct Bilirubin Neonat Total Bilirubin Neonat Direct Bilirubin Neonat Indirect Bili AST ALT Alkaline Phosphatase Creatine Kinase Troponin I 0.067 NT-Pro-B Natriuret Pep 6800 H Total Protein Albumin TSH 1.32 Chest X-Ray 05/11/18 09:19 IMPRESSION: Bilateral moderate effusions, with bibasilar airspace disease unchanged from 05/09/2018 and 05/07/2018. Stable massive cardiomegaly with single lead pacemaker - Vital Signs Vital signs: Temp Pulse Resp BP Pulse Ox 98.2 F 78 22 H 131/85 H 94 05/11/18 09:01 05/11/18 09:01 05/11/18 13:01 05/11/18 13:01 05/11/18 13:01 - Laboratory Result Diagrams: 05/11/18 09:35 05/11/18 09:35 Laboratory results interpreted by me: 05/11/18 05/11/18 05/11/18 09:35 09:35 09:35 Hgb 13.3 L MCHC 31.9 L RDW 16.7 H Monocytes % 15.1 H Potassium 5.2 H Chloride 96 L Carbon Dioxide 33 H BUN 26 H Creatinine 1.45 H Est GFR ( Amer) 59 L Est GFR (Non-Af Amer) 49 L Glucose 173 H ALT 12 L Creatine Kinase 37 L NT-Pro-B Natriuret Pep 6800 H - EKG Interpretation by Me Additional EKG results interpreted by me: EKG demonstrates sinus rhythm with a ventricular rate of 76 bpm, right axis deviation, presence of incomplete right bundle branch block, no ST changes noted , this is compared with prior EKG from 05/09/2018, without significant change. Discharge - Discharge Clinical Impression: Acute on chronic systolic CHF (congestive heart failure), DEANNA (acute kidney injury) Condition: Stable Disposition: ADMITTED INPATIENT Admitting Provider: Hospitalist - Dr. Gerardo Unit Admitted: Telemetry
[2018-05-11] MEDS ORDERED: ONDANSETRON HCL INJ/PF 4 MG/2 ML SDV IV ONE (09:20)
[2018-05-11] MEDS ORDERED: IPRATROPIUM/ALBUTEROL 0.5-2.5 MG/3 ML AMPUL NEB ONE (09:27)
[2018-05-11] MEDS ORDERED: FUROSEMIDE INJ/PF 20 MG/2 ML SDV IV ONE (09:28)
[2018-05-11 09:57] LABS: ABSOLUTE BASOPHILS # (AUTO) 0.1 10^3/uL (0.0-0.2); ABSOLUTE EOSINOPHILS # (AUTO) 0.2 10^3/uL (0.0-0.6); ABSOLUTE MONOCYTES (AUTO) 0.8 10^3/uL (0.1-1.4); ABSOLUTE NEUT (AUTO) 3.1 10^3/uL (1.7-8.2); BASOPHILS % (AUTO) 1.2 % (0-2); EOSINOPHILS % (AUTO) 4.4 % (0-6); HEMATOCRIT 41.6 % (37.9-51.0); HEMOGLOBIN 13.3 g/dL (13.5-17.0); LYMPHOCYTES % (AUTO) 19.7 % (13-45); MEAN CORPUSCULAR HEMOGLOBIN 27.9 pg (27.0-33.4); MEAN CORPUSCULAR HGB CONC 31.9 g/dL (32.0-36.0); MEAN CORPUSCULAR VOLUME 87 fl (80-97); MONOCYTES % (AUTO) 15.1 % (3-13); RED BLOOD COUNT 4.76 10^6/uL (4.35-5.55); RED CELL DISTRIBUTION WIDTH 16.7 % (11.5-14.0); SEGMENTED NEUTROPHILS % (AUTO) 59.6 % (42-78); TOTAL CELLS COUNTED % (AUTO) 100 %; WHITE BLOOD COUNT 5.2 10^3/uL (4.0-10.5)
[2018-05-11 10:17] LABS: PLATELET COUNT 156 10^3/uL (150-450)
[2018-05-11 10:23] LABS: ALANINE AMINOTRANSFERASE 12 U/L (21-72); ALBUMIN 3.9 g/dL (3.5-5.0); ALKALINE PHOSPHATASE 58 U/L (38-126); ANION GAP 10 (5-19); ASPARTATE AMINO TRANSFERASE 25 U/L (17-59); BILIRUBIN,DIRECT 0.4 mg/dL (0.0-0.4); BILIRUBIN,TOTAL 0.7 mg/dL (0.2-1.3); BLOOD UREA NITROGEN 26 mg/dL (7-20); CALCIUM 8.8 mg/dL (8.4-10.2); CARBON DIOXIDE 33 mmol/L (22-30); CHLORIDE 96 mmol/L (98-107); CREATINE KINASE 37 U/L (55-170); GLUCOSE 173 mg/dL (75-110); POTASSIUM 5.2 mmol/L (3.6-5.0); SODIUM 138.6 mmol/L (137-145); TOTAL PROTEIN 6.6 g/dL (6.3-8.2)
--- NOTE | 2018-05-11 10:32 | RADIOLOGY REPORT (SQ) ---
EXAM DESCRIPTION: CHEST SINGLE VIEW COMPLETED DATE/TIME: 05/11/2018 10:15 am REASON FOR STUDY: shortness of breath COMPARISON: CT abdomen pelvis 04/06/2018 Chest films 04/25/2018, 04/29/2018, 04/30/2018, 05/07/2018, 05/09/2018 EXAM PARAMETERS: NUMBER OF VIEWS: One view. TECHNIQUE: Single frontal radiographic view of the chest acquired. RADIATION DOSE: NA LIMITATIONS: None. FINDINGS: LUNGS AND PLEURA: Bilateral moderate pleural effusions opacified the right and left lower chest, unchanged from 05/09/2018 and 05/07/2018. These have increased in size compared to 04/06/2018 . There is consolidation at both lung bases atelectasis versus pneumonia, stable. No pneumothorax MEDIASTINUM AND HILAR STRUCTURES: No masses. Contour normal. HEART AND VASCULAR STRUCTURES: Stable massive cardiomegaly with left-sided single lead pacemaker BONES: No acute findings. HARDWARE: Left single lead pacemaker OTHER: No other significant finding. IMPRESSION: Bilateral moderate effusions, with bibasilar airspace disease unchanged from 05/09/2018 and 05/07/2018. Stable massive cardiomegaly with single lead pacemaker TECHNICAL DOCUMENTATION: JOB ID: [id number] [employer]- All Rights Reserved Reading location - IP/workstation name: [email or web address]
--- NOTE | 2018-05-11 13:22 | EKG REPORT ---
SEVERITY:- ABNORMAL ECG - SINUS RHYTHM IRBBB AND LPFB NONSPECIFIC ST-T CHANGES LTERAL LEADS : Confirmed by: Zac Brandon MD 11-May-2018 13:21:08
[2018-05-11] MEDS: ENOXAPARIN SODIUM INJ 30 MG/0.3 ML DISP.SYRIN SUBCUT SCH (15:30)
[2018-05-11] MEDS ORDERED: DEXTROSE 40% GEL 15 GM TUBE PO PRN ×2 (16:07)
[2018-05-11] MEDS ORDERED: DEXTROSE 50%-WATER 25 GM/50 ML DISP.SYRIN IV PRN ×2 (16:07)
[2018-05-11] MEDS ORDERED: IPRATROPIUM/ALBUTEROL 0.5-2.5 MG/3 ML AMPUL NEB PRN (16:07)
[2018-05-11] MEDS ORDERED: GLUCAGON,HUMAN RECOMB 1 MG INJ IM PRN (16:07)
--- NOTE | 2018-05-11 16:14 | PDOC H&P ---
History of Present Illness Admission Date/PCP: 05/11/18 12:22 RICK ROBISON MD Patient complains of: Shortness of breath and lower extremity swelling History of Present Illness: ALEX Guadarrama KNIGHT is a 62 year old male who has coronary artery disease and COPD. Patient patient has history of CABG, ischemic cardiomyopathy status post AICD, chronic respiratory failure on home oxygen, prior stroke with residual aphasia. Patient presents in the emergency room due to acute onset orthopnea and dyspnea on exertion started 3 days ago and has been progressive and associated with lower extremity edema. X-ray in the emergency room shows congestive heart failure. Past Medical History Cardiac Medical History: Reports: Congestive Heart Failure - Systolic with EF of 25-30% as of 2D echo in July 2017, Coronary Artery Disease, Myocardial Infarction - 2008, Hyperlipidema, Hypertension Pulmonary Medical History: Reports: Asthma, Bronchitis, Chronic Obstructive Pulmonary Disease (COPD), Sleep Apnea Endocrine Medical History: Reports: Diabetes Mellitus Type 1, Diabetes Mellitus Type 2 Renal/ Medical History: Malignancy Medical History: Denies: Ovarian Cancer GI Medical History: Reports: Diverticulitis, Gastroesophageal Reflux Disease Musculoskeltal Medical History: Reports: Arthritis Psychiatric Medical History: Reports: Post Traumatic Stress Disorder Hematology: Reports: Anemia Infectious Medical History: Past Surgical History Past Surgical History: Reports: Cardiac Catheterization, Coronary Artery Bypass Graft, Coronary Stent - 1984, Other - AICD Social History Smoking Status: Former Smoker Frequency of Alcohol Use: None Hx Recreational Drug Use: No Drugs: None Hx Prescription Drug Abuse: No Family History Family History: Reviewed & Not Pertinent, CAD, DM, Hypertension, Thyroid Disfunction Parental Family History Reviewed: Yes Children Family History Reviewed: Yes Sibling(s) Family History Reviewed.: Yes Medication/Allergy Home Medications: Albuterol Sulfate [Proair HFA] 1 puff IH Q6HP PRN 03/31/18 Aspirin [Aspirin 81 mg Chewable Tablet] 81 mg PO DAILY 03/31/18 Cyclosporine 0.05% Oph Emulsio [Restasis 0.05% Oph Emulsion Pf 0.4 ml] 1 drop OU BID 03/31/18 Docusate Calcium 240 mg PO DAILYP PRN 03/31/18 Ganciclovir [Zirgan] 1 drop OD 5XD 03/31/18 Lactulose [Constulose 10 gm/15 mL Oral Solution] 10 ml PO QHS 03/31/18 Metformin HCl [Glucophage 500 mg Tablet] 500 mg PO BID 03/31/18 [place]-3 Fatty Acids/Fish Oil [Fish Oil 1,000 mg Capsule] 2,000 mg PO BID Digoxin [Lanoxin 0.125 mg Tablet] 0.125 mg PO DAILY 30 Days #30 tablet 04/02/18 Metoprolol Succinate [Toprol Xl 25 mg Tab.sr] 25 mg PO DAILY 30 Days #30 tab.sr.24h 04/02/18 Acetaminophen [Tylenol 325 mg Tablet] 650 mg PO Q4HP PRN 04/15/18 Methenamine Hippurate [Methenamine Hippurate] 24 gm TOP BID 04/15/18 Acetaminophen [Tylenol 325 mg Tablet] 650 mg PO Q4HP PRN tablet 04/17/18 Ascorbic Acid [Vitamin C 500 mg Tablet] 500 mg PO DAILY tablet 04/17/18 Buspirone HCl [Buspar 10 mg Tablet] 10 mg PO Q12 #60 tablet 04/17/18 Divalproex Sodium [Depakote] 250 mg PO BID #60 tablet. 04/17/18 Ferrous Sulfate [Feosol 325 mg Tablet] 325 mg PO TID tablet 04/17/18 Furosemide [Lasix] 10 mg PO QAM #30 tablet 04/17/18 Risperidone [Risperdal 0.25 mg Tablet] 0.25 mg PO BIDP PRN #14 tablet 04/17/18 Furosemide [Lasix 40 mg Tablet] 40 mg PO QAM #30 tablet 04/30/18 Potassium Chloride [Klor-Con M20] 20 meq PO DAILY #30 tab.er.prt 04/30/18 Meloxicam [Mobic] 7.5 mg PO DAILY 7 Days #7 tablet 05/02/18 Furosemide [Lasix 20 mg Tablet] 20 mg PO QAM #10 tablet 05/07/18 Furosemide [Lasix Oral Soln 40 mg/5 ml Udcup] 20 mg PO DAILY #60 ml 05/08/18 Allergies/Adverse Reactions: captopril [From Capoten] Allergy (Severe, Verified 05/11/18 08:49) Angioedema atorvastatin calcium [From Lipitor] Allergy (Intermediate, Verified 05/11/18 08: 49) Angioedema clopidogrel [From Plavix] Allergy (Verified 05/11/18 08:49) rosuvastatin [From Crestor] Allergy (Verified 05/11/18 08:49) simvastatin [From Zocor] Allergy (Verified 05/11/18 08:49) Angioedema Review of Systems All systems: reviewed and no additional remarkable complaints except as stated Physical Exam Vital Signs: Temp Pulse Resp BP Pulse Ox 98.2 F 78 22 H 131/85 H 94 05/11/18 09:01 05/11/18 09:01 05/11/18 13:01 05/11/18 13:01 05/11/18 13:01 General appearance: PRESENT: cooperative, mild distress, obese Head exam: PRESENT: atraumatic, normocephalic Eye exam: PRESENT: EOMI. ABSENT: conjunctival injection Ear exam: ABSENT: bleeding, drainage Mouth exam: PRESENT: moist, neck supple Neck exam: ABSENT: meningismus, tenderness, tracheostomy Respiratory exam: PRESENT: crackles. ABSENT: accessory muscle use Cardiovascular exam: PRESENT: RRR. ABSENT: diastolic murmur, systolic murmur Pulses: PRESENT: normal carotid pulses GI/Abdominal exam: PRESENT: normal bowel sounds, soft. ABSENT: ascites, tenderness Rectal exam: PRESENT: deferred Extremities exam: PRESENT: pedal edema, +2 edema. ABSENT: joint swelling, tenderness Neurological exam: PRESENT: alert, awake, oriented to person, oriented to place , oriented to time, oriented to situation, aphasic Psychiatric exam: PRESENT: appropriate affect. ABSENT: agitated, anxious Skin exam: ABSENT: abrasion, cyanosis Results Laboratory Results: 05/11/18 12:30 Troponin I 0.067 Impressions: Chest X-Ray 05/11/18 09:19 IMPRESSION: Bilateral moderate effusions, with bibasilar airspace disease unchanged from 05/09/2018 and 05/07/2018. Stable massive cardiomegaly with single lead pacemaker Assessment & Plan - Diagnosis (1) Acute on chronic systolic (congestive) heart failure Is this a current diagnosis for this admission?: Yes Plan: Start IV Lasix 40 mg twice daily. Check daily weight and strict I's and O's. Consult cardiology. Update echocardiogram. (2) COPD (chronic obstructive pulmonary disease) Is this a current diagnosis for this admission?: Yes Plan: Continue home medications and inhaled treatment as needed (3) Coronary artery disease Is this a current diagnosis for this admission?: Yes Plan: Continue cardiac medications that he uses at home. (4) Essential hypertension Plan: Continue home meds and monitor blood pressure (5) History of CVA (cerebrovascular accident) Is this a current diagnosis for this admission?: Yes Plan: Patient has residual aphasia (6) Type 2 diabetes mellitus Qualifiers: Is this a current diagnosis for this admission?: Yes Plan: Start insulin sliding scale. Monitor glucose levels. (7) DEANNA (acute kidney injury) Is this a current diagnosis for this admission?: Yes Plan: Possibly cardiorenal syndrome. Continue diuresis and monitor renal function.
[2018-05-11] MEDS: FUROSEMIDE INJ/PF 40 MG/4 ML SDV IV SCH (21:12)
--- NOTE | 2018-05-11 21:45 | Progress Note ---
Provider Note Provider Note: Patient seen and examined. Full report to follow. Patient has significant psychiatric issue. We will try optimize medical management for underlying cardiomyopathy.
[2018-05-11] MEDS: ACETAMINOPHEN 325 MG TABLET PO PRN (22:48)
[2018-05-12 08:16] LABS: HEMATOCRIT 40.1 % (37.9-51.0); HEMOGLOBIN 12.7 g/dL (13.5-17.0); MEAN CORPUSCULAR HEMOGLOBIN 27.7 pg (27.0-33.4); MEAN CORPUSCULAR HGB CONC 31.6 g/dL (32.0-36.0); MEAN CORPUSCULAR VOLUME 88 fl (80-97); PLATELET COUNT 167 10^3/uL (150-450); RED BLOOD COUNT 4.59 10^6/uL (4.35-5.55); RED CELL DISTRIBUTION WIDTH 16.8 % (11.5-14.0); WHITE BLOOD COUNT 4.3 10^3/uL (4.0-10.5)
[2018-05-12 08:35] LABS: ANION GAP 6 (5-19); BLOOD UREA NITROGEN 32 mg/dL (7-20); CALCIUM 8.8 mg/dL (8.4-10.2); CARBON DIOXIDE 36 mmol/L (22-30); CHLORIDE 96 mmol/L (98-107); GLUCOSE 102 mg/dL (75-110); POTASSIUM 5.3 mmol/L (3.6-5.0); SODIUM 138.1 mmol/L (137-145)
[2018-05-12] MEDS: ACETAMINOPHEN 325 MG TABLET PO PRN ×2 (09:10→17:15)
[2018-05-12] MEDS: FUROSEMIDE INJ/PF 40 MG/4 ML SDV IV SCH ×2 (09:12→21:34)
[2018-05-12] MEDS: ENOXAPARIN SODIUM INJ 30 MG/0.3 ML DISP.SYRIN SUBCUT SCH (09:17)
--- NOTE | 2018-05-12 11:47 | RADIOLOGY REPORT (SQ) ---
EXAM DESCRIPTION: CHEST SINGLE VIEW COMPLETED DATE/TIME: 05/12/2018 11:32 am REASON FOR STUDY: chf COMPARISON: Chest films 01/22/2018, 03/31/2018, 04/15/2018, 04/29/2018, 04/30/2018, 05/09/2018, 05/11/[address] abdomen pelvis 04/06/2018 EXAM PARAMETERS: NUMBER OF VIEWS: One view. TECHNIQUE: Single frontal radiographic view of the chest acquired. RADIATION DOSE: NA LIMITATIONS: Obese patient, portable technique FINDINGS: LUNGS AND PLEURA: Persistent hazy opacity over the right and left lower chest from moderat e to large bilateral pleural effusions with bibasilar airspace disease. This is unchanged from films dating back to 03/31/2018 No pneumothorax. MEDIASTINUM AND HILAR STRUCTURES: No masses. Contour normal. HEART AND VASCULAR STRUCTURES: Stable massive cardiomegaly BONES: No acute findings. HARDWARE: Unchanged left-sided single lead pacemaker OTHER: No other significant finding. IMPRESSION: Persistent moderate to large bilateral pleural effusions with bibasilar airspace disease . These findings are similar compared to studies dating back to 03/31/2018 TECHNICAL DOCUMENTATION: JOB ID: [id number] [employer]- All Rights Reserved Reading location - IP/workstation name: [email or web address]
--- NOTE | 2018-05-12 14:49 | PDOC PROGRESS REPORT ---
Subjective Progress Note for:: 05/12/18 Subjective:: This is a 62-year-old male with a past medical history of CAD, prior CABG, COPD, chronic systolic heart failure from ischemic cardiomyopathy with prior AICD placement, chronic respiratory failure on home O2, history of CVA with residual partial expressive aphasia who initially presented with increasing shortness of breath and leg swelling. Patient was admitted for CHF exacerbation. No acute event overnight. Patient has partial expressive aphasia (has some residual slurring and pauses) but is coherent and is able to converse with provider. He says his SOB is at baseline but he becomes short of breath when lying supine. Reason For Visit: CHF EXACERBATION Physical Exam Vital Signs: Temp Pulse Resp BP Pulse Ox 97.5 F 70 15 109/73 97 05/12/18 07:54 05/12/18 13:05 05/12/18 13:05 05/12/18 07:54 05/12/18 13:05 Intake & Output 05/11/18 05/12/18 05/13/18 06:59 06:59 06:59 Output Total 500 Balance -500 General appearance: PRESENT: no acute distress, well-developed, well-nourished Head exam: PRESENT: atraumatic, normocephalic Eye exam: PRESENT: conjunctiva pink, EOMI, PERRLA. ABSENT: scleral icterus Ear exam: PRESENT: normal external ear exam Mouth exam: PRESENT: moist, tongue midline Neck exam: ABSENT: carotid bruit, JVD, lymphadenopathy, thyromegaly Respiratory exam: PRESENT: decreased breath sounds - Decreased breath sounds on the bases. ABSENT: rales, wheezes Cardiovascular exam: PRESENT: RRR. ABSENT: diastolic murmur, rubs, systolic murmur Pulses: PRESENT: normal dorsalis pedis pul GI/Abdominal exam: PRESENT: normal bowel sounds, soft. ABSENT: distended, guarding, mass, organolmegaly, rebound, tenderness Rectal exam: PRESENT: deferred Extremities exam: PRESENT: +2 edema Neurological exam: PRESENT: alert, awake, oriented to person, oriented to place Results Laboratory Results: 05/12/18 07:41 05/12/18 07:41 05/12/18 05/12/18 07:41 07:41 WBC 4.3 RBC 4.59 Hgb 12.7 L Hct 40.1 MCV 88 MCH 27.7 MCHC 31.6 L RDW 16.8 H Plt Count 167 Sodium 138.1 Potassium 5.3 H Chloride 96 L Carbon Dioxide 36 H Anion Gap 6 BUN 32 H Creatinine 1.46 H Est GFR ( Amer) 59 L Est GFR (Non-Af Amer) 49 L Glucose 102 Calcium 8.8 05/11/18 05/11/18 05/12/18 12:30 19:00 01:06 Troponin I 0.067 0.064 0.050 Impressions: Chest X-Ray 05/12/18 12:28 IMPRESSION: Persistent moderate to large bilateral pleural effusions with bibasilar airspace disease. These findings are similar compared to studies dating back to 03/31/2018 Assessment & Plan - Diagnosis (1) Acute and chronic respiratory failure with hypoxia Is this a current diagnosis for this admission?: Yes Plan: Secondary to CHF exacerbation. (2) Acute on chronic systolic (congestive) heart failure Is this a current diagnosis for this admission?: Yes Plan: On IV Lasix 40 mg every 12. Cardiology following. Echo pending. (3) Pleural effusion Is this a current diagnosis for this admission?: Yes Plan: Chest x-ray shows persistent significant bilateral pleural effusion. Ordered chest CT. Patient refused CT scan. Will consult radiology for possible thoracentesis. Discussed thoracentesis in length with patient. Discussed the small risk of pneumothorax and patient verbalized he does "not want to take the risk". - Time Time Spent with patient: 25-34 minutes
[2018-05-12] MEDS ORDERED: GABAPENTIN 100 MG CAPSULE PO ONE (16:00)
[2018-05-12] MEDS ORDERED: ALBUTEROL SULFATE HFA (90 MCG/PUFF) 8 GM MDI (1 MDI/ER DISP) IH PRN (17:12)
[2018-05-12] MEDS ORDERED: ALBUTEROL SULFATE HFA (90 MCG/PUFF) 200 PUFF/8.5 GM MDI IH PRN ×2 (18:35→19:20)
[2018-05-12] MEDS: ALPRAZOLAM 0.25 MG TABLET PO PRN (21:34)
[2018-05-12] MEDS: GABAPENTIN 100 MG CAPSULE PO SCH (21:39)
--- NOTE | 2018-05-12 23:43 | PDOC PROGRESS REPORT ---
Subjective Progress Note for:: 05/12/18 Subjective:: ALEX KNIGHT is a 62 year old male who has coronary artery disease and COPD. Patient patient has history of CABG, ischemic cardiomyopathy status post AICD, chronic respiratory failure on home oxygen, prior stroke with residual aphasia. Patient presents in the emergency room due to acute onset orthopnea and dyspnea on exertion started 3 days ago and has been progressive and associated with lower extremity edema. X-ray in the emergency room shows congestive heart failure.Mr Knight was seen in morning rounds. He remains with poor short-term memory and is quite confused. It's difficult to maintain a conversation with him. Patient does have severe dilated cardiomyopathy. On my review of chest x-ray, I feel patient probably just has a pacemaker rather than a defibrillator. Reason For Visit: CHF EXACERBATION Physical Exam Vital Signs: Temp Pulse Resp BP Pulse Ox 97.8 F 71 16 124/69 97 05/12/18 15:18 18 19:00 05/12/18 15:18 05/12/18 15:18 05/12/18 15:18 Intake & Output 05/11/18 05/12/18 05/13/18 06:59 06:59 06:59 Intake Total 651 Output Total 500 300 Balance -500 351 Exam: GEN: NAD, patient alert, orientation could not be checked. Appearance and grooming WNL HEENT : Eyes: JOHNATHON, Ears: No significant abnormalities, Nose: No significant abnormalities. normocephalic atraumatic. Flat midface (-), Receding chin (-) ORAL : Mallampati class IV, narrow arched palate (-) Tonsils: Not enlarged. NECK: no thyromegaly, no masses, trachea is central, JVD is elevated, carotids 2+ with bruit (-) RESP: the minutes but sounds noted both bases along with dullness, nonlabored, accessory muscles of respiration use (-). CV: NL S1 and S2. No significant murmurs noted, no gallop, no extra sounds, no clicks, no rub noted. GI: abd NT to palpation, no masses, bowel sounds present, no guarding or rigidity noted. EXT: no clubbing, (-) cyanosis, edema (2+), perpheral pulses diminished (no) MUSC/SKEL: no acute joint swelling noted. Muscle strength is generally intact. NEURO: no significant focal neurological deficits are note, sensation grossly intact, orientation could not be assessed. PSYCH: judgement and insight could not be checked SKIN: (-) rash, (-)Signs of pruritus, (-) other significant abnormality Results Laboratory Results: 05/12/18 07:41 05/12/18 07:41 05/12/18 05/12/18 07:41 07:41 WBC 4.3 RBC 4.59 Hgb 12.7 L Hct 40.1 MCV 88 MCH 27.7 MCHC 31.6 L RDW 16.8 H Plt Count 167 Sodium 138.1 Potassium 5.3 H Chloride 96 L Carbon Dioxide 36 H Anion Gap 6 BUN 32 H Creatinine 1.46 H Est GFR ( Amer) 59 L Est GFR (Non-Af Amer) 49 L Glucose 102 Calcium 8.8 05/11/18 05/11/18 05/12/18 12:30 19:00 01:06 Troponin I 0.067 0.064 0.050 Impressions: Chest X-Ray 05/12/18 12:28 IMPRESSION: Persistent moderate to large bilateral pleural effusions with bibasilar airspace disease. These findings are similar compared to studies dating back to 03/31/2018 Assessment & Plan - Diagnosis (1) Acute and chronic respiratory failure with hypoxia Is this a current diagnosis for this admission?: Yes (2) Acute on chronic systolic (congestive) heart failure Is this a current diagnosis for this admission?: Yes (3) Pleural effusion Is this a current diagnosis for this admission?: Yes (4) Atrial fibrillation Qualifiers: Atrial fibrillation type: paroxysmal Qualified Code(s): I48.0 - Paroxysmal atrial fibrillation Is this a current diagnosis for this admission?: Yes (5) Coronary artery disease Qualifiers: Coronary Disease-Associated Artery/Lesion type: unspecified vessel or lesion type [place] vs. transplanted heart: [place] heart Associated angina: angina presence unspecified Qualified Code(s): I25.10 - Atherosclerotic heart disease of [place] coronary artery without angina pectoris Is this a current diagnosis for this admission?: Yes (6) History of CVA (cerebrovascular accident) Is this a current diagnosis for this admission?: Yes - Notes Notes: Acute on chronic respiratory failure with hypoxemia: this is most likely related to CHF. Patient may have some underlying COPD. Recommend nightly BiPAP therapy. Acute and chronic systolic heart failure: recommend continuing diuretic therapy. Unfortunately patient has hyperkalaemia, if it result will consider spironolactone therapy. Unfortunately captopril is listed as allergy, if it is only coug as side effects then, could start patient on interest therapy. Pleural effusion: continue diuretic therapy. May consider for a pleural aspiration for diagnostic and therapeutic purposes. Atrial fibrillation: admission EKG shows sinus rhythm. Continue chronic anticoagulation. CAD: patient noted to be symptomatically stable. History of cerebrovascular accident: currently stable. Patient seems to have some limited understanding. May benefit from psych evaluation. Our treatment options are somewhat limited. We'll discuss this with hospitalist in the morning. - Time Time with patient: Greater than 35 minutes
--- NOTE | 2018-05-12 23:47 | PDOC PROGRESS REPORT ---
Subjective Progress Note for:: 05/11/18 Subjective:: ALEX KNIGHT is a 62 year old male who has coronary artery disease and COPD. Patient patient has history of CABG, ischemic cardiomyopathy status post AICD, chronic respiratory failure on home oxygen, prior stroke with residual aphasia. Patient presents in the emergency room due to acute onset orthopnea and dyspnea on exertion started 3 days ago and has been progressive and associated with lower extremity edema. X-ray in the emergency room shows congestive heart failure.Mr Knight was seen on the evening of the . He was noted to be comfortable. However he was noted to be confused. Patient medications were reviewed. . Reason For Visit: CHF EXACERBATION Physical Exam Vital Signs: Temp Pulse Resp BP Pulse Ox 97.8 F 71 16 124/69 97 05/12/18 15:18 05/12/18 19:00 05/12/18 15:18 05/12/18 15:18 05/12/18 15:18 Intake & Output 05/11/18 05/12/18 05/13/18 06:59 06:59 06:59 Intake Total 651 Output Total 500 300 Balance -500 351 Exam: GEN: NAD, patient alert, orientation could not be checked. Appearance and grooming WNL HEENT : Eyes: JOHNATHON, Ears: No significant abnormalities, Nose: No significant abnormalities. normocephalic atraumatic. Flat midface (-), Receding chin (-) ORAL : Mallampati class IV, narrow arched palate (-) Tonsils: Not enlarged. NECK: no thyromegaly, no masses, trachea is central, JVD is not elevated, carotids 2+ with bruit (-) RESP: by basal dullness noted along with diminished but sounds, accessory muscles of respiration use (-). CV: NL S1 and S2. No significant murmurs noted, no gallop, no extra sounds, no clicks, no rub noted. GI: abd NT to palpation, no masses, bowel sounds present, no guarding or rigidity noted. EXT: no clubbing, (-) cyanosis, edema (-), perpheral pulses diminished (no) MUSC/SKEL: no acute joint swelling noted. Muscle strength is generally intact. NEURO: no significant focal neurological deficits are note, sensation grossly intact, orientation could not be checked PSYCH: mood and judgement could not be checked. SKIN: (-) rash, (-)Signs of pruritus, (-) other significant abnormality Results Laboratory Results: 05/12/18 07:41 05/12/18 07:41 05/12/18 05/12/18 07:41 07:41 WBC 4.3 RBC 4.59 Hgb 12.7 L Hct 40.1 MCV 88 MCH 27.7 MCHC 31.6 L RDW 16.8 H Plt Count 167 Sodium 138.1 Potassium 5.3 H Chloride 96 L Carbon Dioxide 36 H Anion Gap 6 BUN 32 H Creatinine 1.46 H Est GFR ( Amer) 59 L Est GFR (Non-Af Amer) 49 L Glucose 102 Calcium 8.8 05/11/18 05/11/18 05/12/18 12:30 19:00 01:06 Troponin I 0.067 0.064 0.050 Impressions: Chest X-Ray 05/12/18 12:28 IMPRESSION: Persistent moderate to large bilateral pleural effusions with bibasilar airspace disease. These findings are similar compared to studies dating back to 03/31/2018 Assessment & Plan - Diagnosis (1) Acute and chronic respiratory failure with hypoxia Is this a current diagnosis for this admission?: Yes (2) Acute on chronic systolic (congestive) heart failure Is this a current diagnosis for this admission?: Yes (3) Pleural effusion Is this a current diagnosis for this admission?: Yes (4) Atrial fibrillation Qualifiers: Atrial fibrillation type: paroxysmal Qualified Code(s): I48.0 - Paroxysmal atrial fibrillation Is this a current diagnosis for this admission?: Yes (5) Coronary artery disease Qualifiers: Coronary Disease-Associated Artery/Lesion type: unspecified vessel or lesion type [place] vs. transplanted heart: [place] heart Associated angina: angina presence unspecified Qualified Code(s): I25.10 - Atherosclerotic heart disease of [place] coronary artery without angina pectoris Is this a current diagnosis for this admission?: Yes (6) History of CVA (cerebrovascular accident) Is this a current diagnosis for this admission?: Yes - Notes Notes: Acute and chronic systolic heart failure: recommend continuing diuretic therapy. Unfortunately patient has hyperkalaemia, if it result will consider spironol actone therapy. Unfortunately captopril is listed as allergy, if it is only coug as side effects then, could start patient on interest therapy. Acute on chronic respiratory failure with hypoxemia: continue with oxygen supplementation. Patient may benefit from intermittent positive pressure non-invasive ventilation. Pleural effusion: continue diuretic therapy. May consider for a pleural aspiration for diagnostic and therapeutic purposes. Atrial fibrillation: admission EKG shows sinus rhythm. Continue chronic anticoagulation. CAD: patient noted to be symptomatically stable. History of cerebrovascular accident: currently stable. Patient seems to have some limited understanding. May benefit from psych evaluation. Our treatment options are somewhat limited. We'll discuss this with hospitalist in the morning.
[2018-05-13] MEDS: ACETAMINOPHEN 325 MG TABLET PO PRN ×3 (02:40→21:36)
[2018-05-13 07:13] LABS: HEMATOCRIT 39.2 % (37.9-51.0); HEMOGLOBIN 12.6 g/dL (13.5-17.0); MEAN CORPUSCULAR HEMOGLOBIN 27.8 pg (27.0-33.4); MEAN CORPUSCULAR VOLUME 87 fl (80-97); PLATELET COUNT 160 10^3/uL (150-450); RED BLOOD COUNT 4.52 10^6/uL (4.35-5.55); RED CELL DISTRIBUTION WIDTH 16.9 % (11.5-14.0); WHITE BLOOD COUNT 4.9 10^3/uL (4.0-10.5)
[2018-05-13 07:40] LABS: BLOOD UREA NITROGEN 34 mg/dL (7-20); CALCIUM 8.7 mg/dL (8.4-10.2); GLUCOSE 93 mg/dL (75-110)
[2018-05-13 07:41] LABS: ANION GAP 7 (5-19); CARBON DIOXIDE 38 mmol/L (22-30); CHLORIDE 95 mmol/L (98-107); SODIUM 140.3 mmol/L (137-145)
--- NOTE | 2018-05-13 08:25 | RADIOLOGY REPORT (SQ) ---
EXAM DESCRIPTION: CHEST SINGLE VIEW COMPLETED DATE/TIME: 05/13/2018 8:02 am REASON FOR STUDY: reassess pl eff COMPARISON: 05/12/2018 EXAM PARAMETERS: NUMBER OF VIEWS: One view. TECHNIQUE: Single frontal radiographic view of the chest acquired. RADIATION DOSE: NA LIMITATIONS: None. FINDINGS: LUNGS AND PLEURA: Stable chest with persistent bibasilar opacification likely combination of moderate effusion and airspace disease. No pneumothorax. MEDIASTINUM AND HILAR STRUCTURES: Stable and obscured. HEART AND VASCULAR STRUCTURES: Enlarged and partially obscured. BONES: No acute bony abnormality. No suspicious osseous lesions. HARDWARE: Single lead left sided defibrillator with tip overlying right atrium. OTHER: No other significant finding. IMPRESSION: Stable chest with persistent bibasilar opacification, likely combination of moderate eff usions and airspace disease. TECHNICAL DOCUMENTATION: JOB ID: [id number] [employer]- All Rights Reserved Reading location - IP/workstation name: [facility], [facility]
[2018-05-13] MEDS: FUROSEMIDE INJ/PF 40 MG/4 ML SDV IV SCH ×2 (09:24→21:34)
[2018-05-13] MEDS: POTASSIUM CHLORIDE 10 MEQ CAPSULE.ER PO SCH (09:24)
[2018-05-13] MEDS: ASPIRIN 81 MG TABLET, CHEWABLE PO SCH (09:24)
[2018-05-13] MEDS: GABAPENTIN 100 MG CAPSULE PO SCH ×2 (09:24→21:36)
[2018-05-13 10:52] LABS: INTERNATIONAL RATION (INR) 1.05; PROTHROMBIN TIME 14.2 SEC (11.4-15.4)
[2018-05-13] MEDS: ENOXAPARIN SODIUM INJ 30 MG/0.3 ML DISP.SYRIN SUBCUT SCH (12:18)
--- NOTE | 2018-05-13 13:13 | RADIOLOGY REPORT (SQ) ---
EXAM DESCRIPTION: U/S THORACENTESIS WITH IMAGING COMPLETED DATE/TIME: 05/13/2018 12:51 pm REASON FOR STUDY: significant bilateral pleural effusions COMPARISON: 05/13/2018 LIMITATIONS: None. PROCEDURE: Procedure, risks, benefit, and alternative explained to patient who then gave written con sent. The posterior right chest wall was marked using ultrasound guidance. A time-out was called fo r correct marking verification. Chest prepped and draped using sterile technique. Local anesthesia a chieved using 10 ml of 1% lidocaine injection. A 6fr Safe-T- Centesis set was introduced into the [facility] pleural space. Fluid was aspirated. The catheter was removed and the entry site was covered wit h sterile bandage. No immediate complications noted. Images acquired during the procedure were stored on PACS. FINDINGS: ENTRY SITE: posterior right chest. FLUID VOLUME: 750 cc FLUID ANALYSIS: Serous OTHER: Fluid sent to the lab for testing. IMPRESSION: SUCCESSFUL THORACENTESIS USING ULTRASOUND GUIDANCE. COMMENT: Patient medication list reviewed: Yes- Quality ID# [id number]:Eligible professional attests to doc umenting in the medical record they obtained, updated, or reviewed the patient's current medications. TECHNICAL DOCUMENTATION: JOB ID: [id number] [employer]- All Rights Reserved Reading location - IP/workstation name: [email or web address]
--- NOTE | 2018-05-13 13:28 | RADIOLOGY REPORT (SQ) ---
EXAM DESCRIPTION: CHEST SINGLE VIEW COMPLETED DATE/TIME: 05/13/2018 12:50 pm REASON FOR STUDY: S/P RT THORACENTESIS COMPARISON: 05/13/2018 EXAM PARAMETERS: NUMBER OF VIEWS: One view. TECHNIQUE: Single frontal radiographic view of the chest acquired. RADIATION DOSE: NA LIMITATIONS: None. FINDINGS: LUNGS AND PLEURA: Considerable opacification both lung bases. There appears to be slight improvement in the right base. MEDIASTINUM AND HILAR STRUCTURES: No masses. Contour normal. HEART AND VASCULAR STRUCTURES: Cardiomegaly. No garcia pulmonary edema. BONES: No acute findings. HARDWARE: None in the chest. OTHER: No other significant finding. IMPRESSION: Cardiomegaly with no garcia pulmonary edema. There is improvement in the right base afte r thoracentesis. No pneumothorax. Airspace disease with likely left pleural effusion. TECHNICAL DOCUMENTATION: JOB ID: [id number] [employer]- All Rights Reserved Reading location - IP/workstation name: [email or web address]
[2018-05-13 14:02] LABS: FLUID APPEARANCE HAZY; FLUID COLOR YELLOW; FLUID SOURCE LUNG; FLUID TYPE PLEURAL; FLUID VISCOSITY LIQUID
--- NOTE | 2018-05-13 15:56 | RADIOLOGY REPORT (SQ) ---
EXAM DESCRIPTION: CHEST SINGLE VIEW COMPLETED DATE/TIME: 05/13/2018 12:41 pm REASON FOR STUDY: 2 HOURS S/P RT THORACENTESIS COMPARISON: 05/13/2018 EXAM PARAMETERS: NUMBER OF VIEWS: One view. TECHNIQUE: Single frontal radiographic view of the chest acquired. RADIATION DOSE: NA LIMITATIONS: None. FINDINGS: LUNGS AND PLEURA: No pneumothorax. Mild persistent opacification in the right base. Pers istent opacification in the left base. MEDIASTINUM AND HILAR STRUCTURES: No masses. Contour normal. HEART AND VASCULAR STRUCTURES: Cardiomegaly. No garcia pulmonary edema. BONES: No acute findings. HARDWARE: Pacemaker/defibrillator. OTHER: No other significant finding. IMPRESSION: No pneumothorax. No significant interval change. TECHNICAL DOCUMENTATION: JOB ID: [id number] [employer]- All Rights Reserved Reading location - IP/workstation name: [email or web address]
--- NOTE | 2018-05-13 16:48 | PDOC PROGRESS REPORT ---
Subjective Progress Note for:: 05/13/18 Subjective:: This is a 62-year-old male with a past medical history of CAD, prior CABG, COPD, chronic systolic heart failure from ischemic cardiomyopathy with prior AICD placement, chronic respiratory failure on home O2, history of CVA with residual partial expressive aphasia who initially presented with increasing shortness of breath and leg swelling. Patient was admitted for CHF exacerbation. No acute event overnight. Patient has partial expressive aphasia (has some residual slurring and pauses) but is coherent and is able to converse with provider. He says his SOB is at baseline but he becomes short of breath when lying supine. He has been having persistent orthopnea. Discussed in length again this morning with caregiver (Nuria) and patient. We discussed the need for thoracentesis again this morning including the indication due to his persistent orthopnea and significant bilateral pleural effusion. Also discussed the small risk of pneumothorax. Patient did agree undergo thoracentesis as he has been having patient orthopnea. Patient is oriented to person, place and situation. Also discussed with materials planner/production planner on bedside about possible option to be transferred to a [facility] hospital in [place] as patient is a his history of placement and disposition. Transferred to [facility] at this time and would prefer to stay here. Noted in previous admission there was concern on patient's capacity. Psych has previously recommended a formal hearing test. Will request psych to do another evaluation with patient. Reason For Visit: CHF EXACERBATION Physical Exam Vital Signs: Temp Pulse Resp BP Pulse Ox 97.3 F 88 17 103/61 94 05/13/18 02:44 05/13/18 14:14 05/13/18 14:14 05/13/18 02:44 05/13/18 14:14 Intake & Output 05/12/18 05/13/18 05/14/18 06:59 06:59 06:59 Intake Total 873 Output Total 500 650 Balance -500 223 Weight 183 lb 6.793 oz General appearance: PRESENT: no acute distress, well-developed, well-nourished Head exam: PRESENT: atraumatic, normocephalic Eye exam: PRESENT: conjunctiva pink, EOMI, PERRLA. ABSENT: scleral icterus Ear exam: PRESENT: normal external ear exam Mouth exam: PRESENT: moist, tongue midline Neck exam: ABSENT: carotid bruit, JVD, lymphadenopathy, thyromegaly Respiratory exam: PRESENT: decreased breath sounds - Decreased breath sounds on both bases, unlabored. ABSENT: wheezes Cardiovascular exam: PRESENT: RRR. ABSENT: diastolic murmur, rubs, systolic murmur Pulses: PRESENT: normal dorsalis pedis pul GI/Abdominal exam: PRESENT: normal bowel sounds, soft. ABSENT: distended, guarding, mass, organolmegaly, rebound, tenderness Rectal exam: PRESENT: deferred Neurological exam: PRESENT: alert, awake, oriented to person, oriented to place, oriented to situation Results Laboratory Results: 05/13/18 06:19 05/13/18 06:19 05/13/18 05/13/18 05/13/18 06:19 06:19 12:35 WBC 4.9 RBC 4.52 Hgb 12.6 L Hct 39.2 MCV 87 MCH 27.8 MCHC 32.0 RDW 16.9 H Plt Count 160 Sodium 140.3 Potassium 5.0 Chloride 95 L Carbon Dioxide 38 H Anion Gap 7 BUN 34 H Creatinine 1.55 H Est GFR ( Amer) 55 L Est GFR (Non-Af Amer) 45 L Glucose 93 Calcium 8.7 Fluid Type PLEURAL Fluid Source LUNG Fluid Color YELLOW Fluid Appearance HAZY Fluid Viscosity LIQUID Fluid WBC 181 Fluid RBC 1288 05/11/18 05/11/18 05/11/18 09:35 09:35 09:35 Creatine Kinase 37 L Troponin I 0.071 NT-Pro-B Natriuret Pep 6800 H 05/11/18 05/11/18 05/12/18 12:30 19:00 01:06 Creatine Kinase Troponin I 0.067 0.064 0.050 NT-Pro-B Natriuret Pep Impressions: Chest X-Ray 05/13/18 07:34 IMPRESSION: Stable chest with persistent bibasilar opacification, likely combination of moderate effusions and airspace disease. Thoracentesis Ultrasound 05/13/18 10:06 IMPRESSION: SUCCESSFUL THORACENTESIS USING ULTRASOUND GUIDANCE. Assessment & Plan - Diagnosis (1) Acute and chronic respiratory failure with hypoxia Is this a current diagnosis for this admission?: Yes Plan: Secondary to CHF exacerbation. (2) Acute on chronic systolic (congestive) heart failure Is this a current diagnosis for this admission?: Yes Plan: On IV Lasix 40 mg every 12. Cardiology following. Echo report pending. (3) Pleural effusion Is this a current diagnosis for this admission?: Yes Plan: Chest x-ray shows persistent significant bilateral pleural effusion. Ordered chest CT. Patient refused CT scan. Will proceed with thoracentesis as discussed above. - Time Time Spent with patient: 25-34 minutes
[2018-05-13] MEDS ORDERED: DOCUSATE SODIUM 100 MG CAPSULE PO ONE (17:00)
[2018-05-13] MEDS: ALPRAZOLAM 0.25 MG TABLET PO PRN ×2 (17:47→20:25)
--- NOTE | 2018-05-13 18:51 | XCELERA REPORT ---
[address] [address] Transthoracic Echocardiogram Report Name: ALEX KNIGHT Age: 62 yrs Gender: Male : 1955 Patient Status: Inpatient Patient Location: [address] [place] [address] Study Date: 05/13/2018 12:29 PM Procedure: A complete two-dimensional transthoracic echocardiogram was performed (2D, M-mode, spectral and color flow Doppler). The study was technically adequate with some images being suboptimal in quality. Reason For Study: recurrent CHF Ordering Physician: GLEN KRISHNAN Performed By: Charo Rodriguez Interpretation Summary The Ejection Fraction estimate is 30-35% Left ventricular systolic function is moderate to severely reduced. The left ventricle is mildly dilated. There is mild concentric left ventricular hypertrophy. Doppler measurements suggest pseudonormalized left ventricular relaxation, which is associated with grade II/IV or mild to moderate diastolic dysfunction There is moderate to severe global hypokinesis of the left ventricle. The right ventricle is moderately dilated. The right ventricular systolic function is moderately reduced. The left atrium is moderately dilated. The right atrium is mildly dilated. There is a mild to moderate amount of mitral regurgitation There is no mitral valve stenosis. There is a mild amount of aortic regurgitation There is no aortic valve stenosis There is a mild to moderate amount of tricuspid regurgitation There is moderate pulmonary hypertension by echo Right ventricular systolic pressure is estimated to be elevated at 50-60mmHg. The aortic root is not well visualized but is probably normal size. The inferior vena cava appeared normal and decreased < 50% with respiration (RAP 10-15 mmHg) Small pericardial effusion. There are no echocardiographic or Doppler indications for cardiac tamponade Moderate size left pleural effusion. Moderate size right pleural effusion. MMode/2D Measurements & Calculations RVDd: 4.2 cm LVIDd: 6.3 cm FS: 15.9 % Ao root diam: 3.5 cm IVSd: 1.6 cm LVIDs: 5.3 cm EDV(Teich): 201.3 ml Ao root area: 9.8 cm2 LVPWd: 1.6 cm ESV(Teich): 135.4 ml EF(Teich): 32.8 % Doppler Measurements & Calculations MV E max vinicio: MV dec slope: Ao V2 max: AI max vinicio: 121.4 cm/sec 108.4 cm/sec 456.0 cm/sec MV A max vinicio: 883.4 cm/sec2 Ao max P.7 mmHgAI max P.2 mmHg 67.0 cm/sec MV dec time: AI dec slope: MV E/A: 1.8 0.14 sec 297.7 cm/sec2 AI P1/2t: 448.7 msec LV V1 max PG: PA V2 max: PI end-d vinicio: TR max vinicio: 3.1 mmHg 88.6 cm/sec 114.8 cm/sec 311.8 cm/sec LV V1 max: PA max P.1 mmHg TR max P.2 mmHg 88.4 cm/sec LV dP/dt: 1591 mmHg/s Left Ventricle The left ventricle is mildly dilated. There is mild concentric left ventricular hypertrophy. Left ventricular systolic function is moderate to severely reduced. The Ejection Fraction estimate is 30-35%. Doppler measurements suggest pseudonormalized left ventricular relaxation, which is associated with grade II/IV or mild to moderate diastolic dysfunction. There is moderate to severe global hypokinesis of the left ventricle. Right Ventricle The right ventricle is moderately dilated. There is normal right ventricular wall thickness. The right ventricular systolic function is moderately reduced. Atria The right atrium is mildly dilated. The left atrium is moderately dilated. Interarterial septum not well visualized and not well dopplered. Cannot comment on ASD/PFO presence. Mitral Valve The mitral valve is grossly normal. There is no mitral valve stenosis. There is a mild to moderate amount of mitral regurgitation. Aortic Valve The aortic valve is grossly normal. There is no aortic valve stenosis. There is a mild amount of aortic regurgitation. Tricuspid Valve The tricuspid valve is not well visualized, but is grossly normal. There is no tricuspid stenosis. There is a mild to moderate amount of tricuspid regurgitation. There is moderate pulmonary hypertension by echo. Right ventricular systolic pressure is estimated to be elevated at 50-60mmHg. Pulmonic Valve The pulmonic valve is not well visualized. Great Vessels The aortic root is not well visualized but is probably normal size. The inferior vena cava appeared normal and decreased < 50% with respiration (RAP 10-15 mmHg). Effusions Small pericardial effusion. There are no echocardiographic or Doppler indications for cardiac tamponade. Moderate size right pleural effusion. Moderate size left pleural effusion. : GLEN KRISHNAN > Pooja Patel
[2018-05-14] MEDS: ACETAMINOPHEN 325 MG TABLET PO PRN ×3 (03:24→21:47)
[2018-05-14] MEDS: ALPRAZOLAM 0.25 MG TABLET PO PRN (03:24)
[2018-05-14 07:01] LABS: HEMATOCRIT 38.6 % (37.9-51.0); HEMOGLOBIN 12.5 g/dL (13.5-17.0); MEAN CORPUSCULAR HEMOGLOBIN 28.1 pg (27.0-33.4); MEAN CORPUSCULAR HGB CONC 32.3 g/dL (32.0-36.0); MEAN CORPUSCULAR VOLUME 87 fl (80-97); PLATELET COUNT 163 10^3/uL (150-450); RED BLOOD COUNT 4.43 10^6/uL (4.35-5.55); WHITE BLOOD COUNT 6.7 10^3/uL (4.0-10.5)
[2018-05-14 07:27] LABS: BLOOD UREA NITROGEN 38 mg/dL (7-20); CALCIUM 8.6 mg/dL (8.4-10.2); CHLORIDE 94 mmol/L (98-107); GLUCOSE 99 mg/dL (75-110); POTASSIUM 4.9 mmol/L (3.6-5.0); SODIUM 141.1 mmol/L (137-145)
[2018-05-14 07:38] LABS: ANION GAP 6 (5-19); CARBON DIOXIDE 41 mmol/L (22-30)
--- NOTE | 2018-05-14 09:41 | PDOC PROGRESS REPORT ---
Subjective Progress Note for:: 05/13/18 Subjective:: Patient was seen on morning rounds on the . Patient noted to be comfortable. He is going for thoracentesis. Patient's medications and lab work were reviewed. . Reason For Visit: CHF EXACERBATION Physical Exam Vital Signs: Temp Pulse Resp BP Pulse Ox 97.9 F 95 16 124/88 H 96 05/14/18 09:33 05/14/18 09:33 05/14/18 09:33 05/14/18 09:33 05/14/18 09:33 Intake & Output 05/13/18 05/14/18 05/15/18 06:59 06:59 06:59 Intake Total 873 1599 Output Total 650 425 Balance 223 1174 Exam: GENERAL: well-nourished and in no acute distress. Patient is alert but orientation could not be checked. HEAD: Atraumatic, normocephalic. EYES: Pupils equal round and reactive to light, extraocular movements intact, sc jose anicteric, conjunctiva are normal. ENT: TMs normal, nares patent, oropharynx clear without exudates. Moist mucous membranes. No oral ulcerations or bleeding gums noted NECK: supple without lymphadenopathy or JVD. Trachea is central. No cervical or axillary lymphadenopathy noted. Carotids are 2+ LUNGS: Breath sounds bibasilar fine crackles at bases. Mild dullness noted both bases along with diminished breath sounds. CHEST: Palpation of chest wall shows no significant chest wall tenderness. 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 ABDOMEN: Soft, no significant tenderness appreciated, normoactive bowel sounds. No guarding, no rebound. No rigidity noted . No masses appreciated. EXTREMITIES: Pedal pulses are 1-2+, no calf tenderness noted, Trace + pedal edema noted. No clubbing or cyanosis. NEUROLOGICAL: Patient is alert, no focal neurological deficit noted. PSYCH: Unable to assess insight. Mood seems manic. SKIN: No significant ecchymosis, rash, ulcerations or signs of pruritus noted. MUSCULOSKELETAL EXAM: No significant joint swelling noted. Results Laboratory Results: 05/14/18 06:06 05/14/18 06:06 05/13/18 05/14/18 05/14/18 12:35 06:06 06:06 WBC 6.7 RBC 4.43 Hgb 12.5 L Hct 38.6 MCV 87 MCH 28.1 MCHC 32.3 RDW 17.0 H Plt Count 163 Sodium 141.1 Potassium 4.9 Chloride 94 L Carbon Dioxide 41 H* Anion Gap 6 BUN 38 H Creatinine 1.37 H Est GFR ( Amer) > 60 Est GFR (Non-Af Amer) 52 L Glucose 99 Calcium 8.6 Fluid Type PLEURAL Fluid Source LUNG Fluid Color YELLOW Fluid Appearance HAZY Fluid Viscosity LIQUID Fluid WBC 181 Fluid RBC 1288 05/11/18 05/11/18 05/11/18 09:35 09:35 09:35 Creatine Kinase 37 L Troponin I 0.071 NT-Pro-B Natriuret Pep 6800 H 05/11/18 05/11/18 05/12/18 12:30 19:00 01:06 Creatine Kinase Troponin I 0.067 0.064 0.050 NT-Pro-B Natriuret Pep EKG Comments: Telemetry shows sinus rhythm. No sustained tachycardia or bradycardia arrhyt hmias noted. Impressions: Chest X-Ray 05/13/18 07:34 IMPRESSION: Stable chest with persistent bibasilar opacification, likely combination of moderate effusions and airspace disease. Thoracentesis Ultrasound 05/13/18 10:06 IMPRESSION: SUCCESSFUL THORACENTESIS USING ULTRASOUND GUIDANCE. Assessment & Plan - Diagnosis (1) Acute and chronic respiratory failure with hypoxia Is this a current diagnosis for this admission?: Yes (2) Acute on chronic systolic (congestive) heart failure Is this a current diagnosis for this admission?: Yes (3) Pleural effusion Is this a current diagnosis for this admission?: Yes (4) Atrial fibrillation Qualifiers: Atrial fibrillation type: paroxysmal Qualified Code(s): I48.0 - Paroxysmal atrial fibrillation Is this a current diagnosis for this admission?: Yes (5) Coronary artery disease Qualifiers: Coronary Disease-Associated Artery/Lesion type: unspecified vessel or lesion type [place] vs. transplanted heart: [place] heart Associated angina: angina presence unspecified Qualified Code(s): I25.10 - Atherosclerotic heart disease of [place] coronary artery without angina pectoris Is this a current diagnosis for this admission?: Yes (6) History of CVA (cerebrovascular accident) Is this a current diagnosis for this admission?: Yes - Notes Notes: Patient is generally slowly improving. Continue with diuretic therapy. Thoracentesis results will be reviewed. 2D echocardiogram reviewed showed biventricular failure, LVEF at around 30-35%. Patient felt to have cardiomyopathy type picture. Patient also had moderate pulmonary hypertension. Feel that patient will benefit from BiPAP therapy. Will see if if patient can tolerate it. Also discussed with Dr. Robert that if patient allergies can be confirmed. If there is no significant allergy to captopril such as anaphylactic reaction then patient could be tried on entresto therapy. I believe Dr. Robert has developed a effective way of communicating with this patient. - Time Time with patient: 15-25 minutes Medications reviewed and adjusted accordingly: Yes
--- NOTE | 2018-05-14 09:54 | PDOC PROGRESS REPORT ---
Subjective Progress Note for:: 05/14/18 Subjective:: Patient seen this morning. He is wanting to be discharged. He wants to go home. Patient noted to be comfortable. Patient had thoracentesis yesterday. This he tolerated well. Patient's medications and lab work were reviewed. Chest x-ray reviewed. It is now confirmed that he has a single-chamber defibrillator. . Reason For Visit: CHF EXACERBATION Physical Exam Vital Signs: Temp Pulse Resp BP Pulse Ox 97.9 F 95 16 124/88 H 96 05/14/18 09:33 05/14/18 09:33 05/14/18 09:33 05/14/18 09:33 05/14/18 09:33 Intake & Output 05/13/18 05/14/18 05/15/18 06:59 06:59 06:59 Intake Total 873 1599 Output Total 650 425 Balance 223 1174 Exam: GENERAL: well-nourished and in no acute distress. Alert and orientation not checked. HEAD: Atraumatic, normocephalic. EYES: [place], sclera anicteric, conjunctiva are normal. ENT: Moist mucous membranes. No oral ulcerations or bleeding gums noted. No obvious ear, nose or throat abnormalities noted. NECK: supple without lymphadenopathy. Trachea is central. No cervical or axillary lymphadenopathy noted. Carotids are 2+, JVD WNL LUNGS: Diminished breath sounds noted both bases with mild dullness. No wheezing noted. CHEST: Palpation of the chest wall shows no significant chest wall tenderness. 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 ABDOMEN: Soft, no significant tenderness appreciated, normoactive bowel sounds. No guarding, no rebound. No rigidity noted . No masses appreciated. EXTREMITIES: Pedal pulses are 1-2+, no calf tenderness noted. No clubbing or cyanosis. negative pedal edema noted NEUROLOGICAL: Focused neurological exam showed no significant neurologic deficit. Normal speech, no focal weakness appreciated. PSYCH: Normal mood, normal affect. Judgment and insight not checked. SKIN: No significant ecchymosis, skin is noted to be warm. MUSCULOSKELETAL EXAM: No significant acute joint swelling noted. Results Laboratory Results: 05/14/18 06:06 05/14/18 06:06 05/13/18 05/14/18 05/14/18 12:35 06:06 06:06 WBC 6.7 RBC 4.43 Hgb 12.5 L Hct 38.6 MCV 87 MCH 28.1 MCHC 32.3 RDW 17.0 H Plt Count 163 Sodium 141.1 Potassium 4.9 Chloride 94 L Carbon Dioxide 41 H* Anion Gap 6 BUN 38 H Creatinine 1.37 H Est GFR ( Amer) > 60 Est GFR (Non-Af Amer) 52 L Glucose 99 Calcium 8.6 Fluid Type PLEURAL Fluid Source LUNG Fluid Color YELLOW Fluid Appearance HAZY Fluid Viscosity LIQUID Fluid WBC 181 Fluid RBC 1288 05/11/18 05/11/18 05/11/18 09:35 09:35 09:35 Creatine Kinase 37 L Troponin I 0.071 NT-Pro-B Natriuret Pep 6800 H 05/11/18 05/11/18 05/12/18 12:30 19:00 01:06 Creatine Kinase Troponin I 0.067 0.064 0.050 NT-Pro-B Natriuret Pep EKG Comments: Telemetry shows sinus rhythm. Impressions: Thoracentesis Ultrasound 05/13/18 10:06 IMPRESSION: SUCCESSFUL THORACENTESIS USING ULTRASOUND GUIDANCE. Assessment & Plan - Diagnosis (1) Acute and chronic respiratory failure with hypoxia Is this a current diagnosis for this admission?: Yes (2) Acute on chronic systolic (congestive) heart failure Is this a current diagnosis for this admission?: Yes (3) Pleural effusion Is this a current diagnosis for this admission?: Yes (4) Atrial fibrillation Qualifiers: Atrial fibrillation type: paroxysmal Qualified Code(s): I48.0 - Paroxysmal atrial fibrillation Is this a current diagnosis for this admission?: Yes (5) Coronary artery disease Qualifiers: Coronary Disease-Associated Artery/Lesion type: unspecified vessel or lesion type [place] vs. transplanted heart: [place] heart Associated angina: angina presence unspecified Qualified Code(s): I25.10 - Atherosclerotic heart disease of [place] coronary artery without angina pectoris Is this a current diagnosis for this admission?: Yes (6) History of CVA (cerebrovascular accident) Is this a current diagnosis for this admission?: Yes - Notes Notes: Patient has improved and seems fairly compensated. Still has bilateral pleural effusion however it may take a while for it to resolve. JVP is now down. Patient does not seem to have any significant pedal edema. Pleural fluid aspiration findings are still pending but feel that this will come back as transudate and CHF related. Patient wants to go home. I am also being told by the nurse that patient is likely to be transferred to [facility]. Patient medications reviewed. This was discussed earlier with the hospitalist. Will start patient on low-dose beta-blockers and low-dose digoxin. Patient could be considered for evaluation for underlying sleep apnea, whether he will agree with it or tolerate with this therapy is another question. Patient can follow-up with me if he wishes. Will sign off. Please reconsult if needed. - Time Time with patient: 15-25 minutes - More than 50% of the time spent coordinating care, discussing management plans with involved caregivers. Management plans discussed with involved personnels. Medical decision making was of moderate to high complexity, patient's has multiple comorbidities. Medications reviewed and adjusted accordingly: Yes
[2018-05-14] MEDS ORDERED: CEFTRIAXONE 1 GM/D5W RTU 1 GM/50 ML RTUPB IV SCH (10:00)
--- NOTE | 2018-05-14 10:04 | RADIOLOGY REPORT (SQ) ---
EXAM DESCRIPTION: CHEST SINGLE VIEW COMPLETED DATE/TIME: 05/14/2018 9:47 am REASON FOR STUDY: SOB COMPARISON: 05/13/2018. EXAM PARAMETERS: NUMBER OF VIEWS: One view. TECHNIQUE: Single frontal radiographic view of the chest acquired. RADIATION DOSE: NA LIMITATIONS: None. FINDINGS: LUNGS AND PLEURA: Airspace disease in the lung bases, left greater than right. Bilateral pleural effusions. MEDIASTINUM AND HILAR STRUCTURES: No masses. Contour normal. HEART AND VASCULAR STRUCTURES: Marked cardiomegaly unchanged. BONES: No acute findings. Degenerative changes in the spine. HARDWARE: Defibrillator. OTHER: No other significant finding. IMPRESSION: NO SIGNIFICANT CHANGE. MARKED CARDIOMEGALY WITH AIRSPACE DISEASE IN THE LUNG BASES AND BILATERAL PLEURAL EFFUSIONS. TECHNICAL DOCUMENTATION: JOB ID: [id number] [employer]- All Rights Reserved Reading location - IP/workstation name: [email or web address]
[2018-05-14] MEDS: POTASSIUM CHLORIDE 10 MEQ CAPSULE.ER PO SCH (11:33)
[2018-05-14] MEDS: DOCUSATE SODIUM 100 MG CAPSULE PO SCH ×2 (11:34→18:24)
[2018-05-14] MEDS: ENOXAPARIN SODIUM INJ 30 MG/0.3 ML DISP.SYRIN SUBCUT SCH (11:34)
[2018-05-14] MEDS: FUROSEMIDE INJ/PF 40 MG/4 ML SDV IV SCH ×2 (11:34→21:47)
[2018-05-14] MEDS: GABAPENTIN 100 MG CAPSULE PO SCH ×2 (11:34→21:47)
[2018-05-14] MEDS: ASPIRIN 81 MG TABLET, CHEWABLE PO SCH (11:34)
[2018-05-14] MEDS: CEFTRIAXONE SODIUM 1,000 MG in DEXTROSE 5%-WATER 50 ML IV SCH (11:39)
[2018-05-14] MEDS: CARVEDILOL 3.125 MG TABLET PO SCH ×2 (12:15→21:47)
[2018-05-14] MEDS: DIGOXIN 0.125 MG TABLET PO SCH (12:15)
--- NOTE | 2018-05-14 15:30 | PDOC PROGRESS REPORT ---
Subjective Progress Note for:: 05/14/18 Subjective:: This is a 62-year-old male with a past medical history of CAD, prior CABG, COPD, chronic systolic heart failure from ischemic cardiomyopathy with prior AICD placement, chronic respiratory failure on home O2, history of CVA with residual partial expressive aphasia who initially presented with increasing shortness of breath and leg swelling. Patient was admitted for CHF exacerbation. Patient has partial expressive aphasia (has some residual slurring and pauses) but is coherent and is able to converse with provider. He says his SOB is at baseline but he becomes short of breath when lying supine. He has been having persistent orthopnea. 05/13: Discussed in length again this morning with caregiver (Nuria) and patient. We discussed the need for thoracentesis again this morning including the indication due to his persistent orthopnea and significant bilateral pleural effusion. Also discussed the small risk of pneumothorax. Patient did agree undergo thoracentesis as he has been having patient orthopnea. Patient is oriented to person, place and situation. Also discussed with data processing systems project planner on bedside about possible option to be transferred to a [facility] hospital in [place] as patient is a his history of placement and disposition. He does not want to be transferred at this time and would prefer to stay here. 05/14: Patient does appear to have into capacity to make his own medical decisions. Patient was also evaluated by psych who deemed the same. Discussed in length again today about plan and disposition. Patient says he does not want to go to a half-way or rehab. He also does not want to talk about his CODE STATUS and says that he will "sort it out" later. Offered palliative care consult and he is receptive to it but not hospice. He says his breathing has improved after the thoracentesis. Cotton Seed Culler recommended BiPAP at home. Patient is resistant on using BiPAP at home but agrees to try it here while inpatient and see if he tolerates it. Reason For Visit: CHF EXACERBATION Physical Exam Vital Signs: Temp Pulse Resp BP Pulse Ox 97.6 F 97 16 146/92 H 99 05/14/18 11:33 05/14/18 11:33 05/14/18 11:33 05/14/18 11:33 05/14/18 11:33 Intake & Output 05/13/18 05/14/18 05/15/18 06:59 06:59 06:59 Intake Total 873 1599 50 Output Total 650 425 Balance 223 1174 50 General appearance: PRESENT: no acute distress, well-developed, well-nourished Head exam: PRESENT: atraumatic, normocephalic Eye exam: PRESENT: conjunctiva pink, EOMI, PERRLA. ABSENT: scleral icterus Ear exam: PRESENT: normal external ear exam Mouth exam: PRESENT: moist, tongue midline Neck exam: ABSENT: carotid bruit, JVD, lymphadenopathy, thyromegaly Respiratory exam: PRESENT: decreased breath sounds - Decreased sounds on the basis slightly improved on the right base, rhonchi. ABSENT: rales, wheezes Cardiovascular exam: PRESENT: RRR. ABSENT: diastolic murmur, rubs, systolic murmur Pulses: PRESENT: normal dorsalis pedis pul GI/Abdominal exam: PRESENT: normal bowel sounds, soft. ABSENT: distended, guarding, mass, organolmegaly, rebound, tenderness Rectal exam: PRESENT: deferred Extremities exam: PRESENT: +2 edema Results Laboratory Results: 05/14/18 06:06 05/14/18 06:06 05/13/18 05/13/18 05/13/18 12:35 12:35 12:35 WBC RBC Hgb Hct MCV MCH MCHC RDW Plt Count Sodium Potassium Chloride Carbon Dioxide Anion Gap BUN Creatinine Est GFR ( Amer) Est GFR (Non-Af Amer) Glucose Calcium Fluid Glucose 129 Fluid Total Protein 3.2 Fluid LDH 138 05/14/18 05/14/18 06:06 06:06 WBC 6.7 RBC 4.43 Hgb 12.5 L Hct 38.6 MCV 87 MCH 28.1 MCHC 32.3 RDW 17.0 H Plt Count 163 Sodium 141.1 Potassium 4.9 Chloride 94 L Carbon Dioxide 41 H* Anion Gap 6 BUN 38 H Creatinine 1.37 H Est GFR ( Amer) > 60 Est GFR (Non-Af Amer) 52 L Glucose 99 Calcium 8.6 Fluid Glucose Fluid Total Protein Fluid LDH 05/11/18 05/11/18 05/11/18 09:35 09:35 09:35 Creatine Kinase 37 L Troponin I 0.071 NT-Pro-B Natriuret Pep 6800 H 05/11/18 05/11/18 05/12/18 12:30 19:00 01:06 Creatine Kinase Troponin I 0.067 0.064 0.050 NT-Pro-B Natriuret Pep Impressions: Thoracentesis Ultrasound 05/13/18 10:06 IMPRESSION: SUCCESSFUL THORACENTESIS USING ULTRASOUND GUIDANCE. Chest X-Ray 05/14/18 00:00 IMPRESSION: NO SIGNIFICANT CHANGE. MARKED CARDIOMEGALY WITH AIRSPACE DISEASE IN THE LUNG BASES AND BILATERAL PLEURAL EFFUSIONS. Assessment & Plan - Diagnosis (1) Acute and chronic respiratory failure with hypoxia Is this a current diagnosis for this admission?: Yes Plan: Secondary to CHF exacerbation. (2) Acute on chronic systolic (congestive) heart failure Is this a current diagnosis for this admission?: Yes Plan: Combined systolic and diastolic biventricular failure. Continue Lasix 40 mg every 12. Cardiology following. Echo shows an EF of 30-35%, grade 2 diastolic dysfunction and dilated left and right ventricular. Patient already has an AICD. Patient is not on UZMA inhibitor hence is not on optimal medical therapy. Patient has had angioedema from captopril before. Both UZMA inhibitors and Entresto will be contraindications to a history of ACEi-associated angioedema. Continue Coreg. (3) Pleural effusion Is this a current diagnosis for this admission?: Yes Plan: S/P right sided thoracentesis (750 cc). Preserved fluid analysis is consistent with transudative effusion likely related to patient's CHF. Chest x-ray today does show improvement in aeration of the right lower lung salazar. Patient says that he is now breathing at his baseline. - Time Time Spent with patient: 25-34 minutes
[2018-05-14 20:25] LABS: ARTERIAL BLOOD BASE EXCESS 13.4 mmol/L; ARTERIAL BLOOD FIO2 1L; ARTERIAL BLOOD H2CO3 2.07 mmol/L (1.05-1.35); ARTERIAL BLOOD HCO3 41.3 mmol/L (20-24); ARTERIAL BLOOD O2 SATURATION 93.5 % (94-98); ARTERIAL BLOOD PCO2 68.8 mmHg (35-45); ARTERIAL BLOOD PO2 70.7 mmHg (80-100); ARTERIAL BLOOD TOTAL CO2 43.4 mmol/L (23-27)
[2018-05-15] MEDS: FUROSEMIDE INJ/PF 40 MG/4 ML SDV IV SCH ×2 (05:21→19:33)
[2018-05-15] MEDS: DIGOXIN 0.125 MG TABLET PO SCH (10:09)
[2018-05-15] MEDS: GABAPENTIN 100 MG CAPSULE PO SCH ×2 (10:10→22:36)
[2018-05-15] MEDS: POTASSIUM CHLORIDE 10 MEQ CAPSULE.ER PO SCH (10:10)
[2018-05-15] MEDS: ASPIRIN 81 MG TABLET, CHEWABLE PO SCH (10:10)
[2018-05-15] MEDS: ENOXAPARIN SODIUM INJ 30 MG/0.3 ML DISP.SYRIN SUBCUT SCH (10:11)
[2018-05-15] MEDS: CEFTRIAXONE SODIUM 1,000 MG in DEXTROSE 5%-WATER 50 ML IV SCH (10:25)
[2018-05-15] MEDS: DOCUSATE SODIUM 100 MG CAPSULE PO SCH ×2 (10:26→19:27)
[2018-05-15] MEDS: CARVEDILOL 3.125 MG TABLET PO SCH ×2 (10:28→22:36)
--- NOTE | 2018-05-15 14:19 | PDOC PROGRESS REPORT ---
Subjective Progress Note for:: 05/15/18 Subjective:: This is a 62-year-old male with a past medical history of CAD, prior CABG, COPD, chronic systolic heart failure from ischemic cardiomyopathy with prior AICD placement, chronic respiratory failure on home O2, history of CVA with residual partial expressive aphasia who initially presented with increasing shortness of breath and leg swelling. Patient was admitted for CHF exacerbation. Patient has partial expressive aphasia (has some residual slurring and pauses) but is coherent and is able to converse with provider. He says his SOB is at baseline but he becomes short of breath when lying supine. He has been having persistent orthopnea. 05/13: Discussed in length again this morning with caregiver (Nuria) and patient. We discussed the need for thoracentesis again this morning including the indication due to his persistent orthopnea and significant bilateral pleural effusion. Also discussed the small risk of pneumothorax. Patient did agree undergo thoracentesis as he has been having patient orthopnea. Patient is oriented to person, place and situation. Also discussed with certified financial planner on bedside about possible option to be transferred to a [facility] in [place] as patient is a his history of placement and disposition. He does not want to be transferred at this time and would prefer to stay here. 05/14: Patient does appear to have into capacity to make his own medical decisions. Patient was also evaluated by psych who deemed the same. Discussed in length again today about plan and disposition. Patient says he does not want to go to a [place] [facility] or rehab. He also does not want to talk about his CODE STATUS and says that he will "sort it out" later. Offered palliative care consult and he is receptive to it but not hospice. He says his breathing has improved after the thoracentesis. Writing Manager recommended BiPAP at home. Patient is resistant on using BiPAP at home but agrees to try it here while inpatient and see if he tolerates it. 05/15: Upon encounter this morning, patient was sleeping on the recliner. Patient says that his house is not fixed yet. He says he does not want to have at this time but is agreeable to being transferred to the [facility] in [place]. Convinced on trying the BiPAP and he says he will try wearing it. Reason For Visit: CHF EXACERBATION Physical Exam Vital Signs: Temp Pulse Resp BP Pulse Ox 97.6 F 82 34 H 132/77 H 100 05/15/18 12:03 05/15/18 12:03 05/15/18 12:03 05/15/18 12:03 05/15/18 12:03 Intake & Output 05/14/18 05/15/18 05/16/18 06:59 06:59 06:59 Intake Total 1599 989 300 Output Total 425 1680 1250 Balance 1174 -691 -950 Weight 184 lb 1.376 oz General appearance: PRESENT: no acute distress, well-developed, well-nourished Head exam: PRESENT: atraumatic, normocephalic Eye exam: PRESENT: conjunctiva pink, EOMI, PERRLA. ABSENT: scleral icterus Ear exam: PRESENT: normal external ear exam Neck exam: ABSENT: carotid bruit, JVD, lymphadenopathy, thyromegaly Respiratory exam: PRESENT: decreased breath sounds - Decreased breath sounds on both bases, rhonchi. ABSENT: rales, wheezes Cardiovascular exam: PRESENT: RRR. ABSENT: diastolic murmur, rubs, systolic murmur Pulses: PRESENT: normal dorsalis pedis pul GI/Abdominal exam: PRESENT: normal bowel sounds, soft. ABSENT: distended, guard ing, mass, organolmegaly, rebound, tenderness Rectal exam: PRESENT: deferred Neurological exam: PRESENT: alert, awake, oriented to person, oriented to place, oriented to time, oriented to situation Results Laboratory Results: 05/14/18 06:06 05/14/18 06:06 05/14/18 19:58 Carbonic Acid 2.07 H HCO3/H2CO3 Ratio 19:1 ABG pH 7.40 ABG pCO2 68.8 H ABG pO2 70.7 L ABG HCO3 41.3 H ABG O2 Saturation 93.5 L ABG Base Excess 13.4 FiO2 1L 05/11/18 05/11/18 05/11/18 09:35 09:35 09:35 Creatine Kinase 37 L Troponin I 0.071 NT-Pro-B Natriuret Pep 6800 H 05/11/18 05/11/18 05/12/18 12:30 19:00 01:06 Creatine Kinase Troponin I 0.067 0.064 0.050 NT-Pro-B Natriuret Pep Impressions: Thoracentesis Ultrasound 05/13/18 10:06 IMPRESSION: SUCCESSFUL THORACENTESIS USING ULTRASOUND GUIDANCE. Chest X-Ray 05/14/18 00:00 IMPRESSION: NO SIGNIFICANT CHANGE. MARKED CARDIOMEGALY WITH AIRSPACE DISEASE IN THE LUNG BASES AND BILATERAL PLEURAL EFFUSIONS. Assessment & Plan - Diagnosis (1) Acute and chronic respiratory failure with hypoxia Is this a current diagnosis for this admission?: Yes Plan: Secondary to CHF exacerbation. Patient was convinced to use wear BiPAP today. (2) Acute on chronic systolic (congestive) heart failure Is this a current diagnosis for this admission?: Yes Plan: Combined systolic and diastolic biventricular failure. Continue Lasix 40 mg every 12. Cardiology following. Echo shows an EF of 30-35%, grade 2 diastolic dysfunction and dilated left and right ventricular. Patient already has an AICD. Patient is not on UZMA inhibitor hence is not on optimal medical therapy. CHF medication regimen cannot be optimized as patient has had angioedema from ca ptopril before. Both UZMA inhibitors and Entresto will be contraindicated to a history of ACEi-associated angioedema. Continue Coreg. (3) Pleural effusion Is this a current diagnosis for this admission?: Yes Plan: S/P right sided thoracentesis (750 cc) on 05/13/18. Pleural fluid analysis is consistent with transudative effusion likely related to patient's CHF. Chest x- ray after thoracentesis did show improvement in aeration of the right lower lung salazar. Will recheck chest x-ray today. - Time Time Spent with patient: 25-34 minutes
--- NOTE | 2018-05-15 14:34 | RADIOLOGY REPORT (SQ) ---
EXAM DESCRIPTION: CHEST SINGLE VIEW COMPLETED DATE/TIME: 05/15/2018 2:21 pm REASON FOR STUDY: sob COMPARISON: 05/14/2018 EXAM PARAMETERS: NUMBER OF VIEWS: One view. TECHNIQUE: Single frontal radiographic view of the chest acquired. RADIATION DOSE: NA LIMITATIONS: None. FINDINGS: LUNGS AND PLEURA: Bilateral pleural effusions. Patchy opacification in the right lower lo be appears more prominent. MEDIASTINUM AND HILAR STRUCTURES: No masses. Contour normal. HEART AND VASCULAR STRUCTURES: Cardiomegaly. No garcia pulmonary edema. BONES: No acute findings. HARDWARE: Pacemaker/defibrillator. OTHER: No other significant finding. IMPRESSION: Cardiomegaly with bilateral pleural effusions. No garcia pulmonary edema. Cannot exclud e limited right lower lobe pneumonia. TECHNICAL DOCUMENTATION: JOB ID: [id number] [employer]- All Rights Reserved Reading location - IP/workstation name: [email or web address]
--- NOTE | 2018-05-15 15:39 | PSYCHOLOGICAL NOTE ---
Psych Note - Psych Note Date seen by psych provider: 05/14/18 Psych Note: Reason for Consult: capacity This is a 62-year-old male with a past medical history of CAD, prior CABG, COPD, chronic systolic heart failure from ischemic cardiomyopathy with prior AICD placement, chronic respiratory failure on home O2, history of CVA with residual partial expressive aphasia who initially presented with increasing shortness of breath and leg swelling. Patient was admitted for CHF exacerbation. Patient received evaluation for capacity on 05/14/2018. At this time he demonstrates capacity. Full report will be submitted.
[2018-05-15] MEDS: ACETAMINOPHEN 325 MG TABLET PO PRN (19:33)
[2018-05-15] MEDS ORDERED: DOCUSATE SODIUM 100 MG CAPSULE PO ONE (23:00)
[2018-05-16] MEDS: ACETAMINOPHEN 325 MG TABLET PO PRN ×3 (04:13→23:56)
[2018-05-16 05:32] LABS: ABSOLUTE BASOPHILS # (AUTO) 0.1 10^3/uL (0.0-0.2); ABSOLUTE EOSINOPHILS # (AUTO) 0.3 10^3/uL (0.0-0.6); ABSOLUTE LYMPHOCYTES (AUTO) 1.3 10^3/uL (0.5-4.7); ABSOLUTE MONOCYTES (AUTO) 1.1 10^3/uL (0.1-1.4); ABSOLUTE NEUT (AUTO) 3.6 10^3/uL (1.7-8.2); BASOPHILS % (AUTO) 0.9 % (0-2); EOSINOPHILS % (AUTO) 4.9 % (0-6); HEMATOCRIT 38.4 % (37.9-51.0); HEMOGLOBIN 12.4 g/dL (13.5-17.0); LYMPHOCYTES % (AUTO) 19.9 % (13-45); MEAN CORPUSCULAR HEMOGLOBIN 27.8 pg (27.0-33.4); MEAN CORPUSCULAR HGB CONC 32.3 g/dL (32.0-36.0); MEAN CORPUSCULAR VOLUME 86 fl (80-97); MONOCYTES % (AUTO) 17.8 % (3-13); PLATELET COUNT 186 10^3/uL (150-450); RED BLOOD COUNT 4.47 10^6/uL (4.35-5.55); RED CELL DISTRIBUTION WIDTH 16.8 % (11.5-14.0); SEGMENTED NEUTROPHILS % (AUTO) 56.5 % (42-78); TOTAL CELLS COUNTED % (AUTO) 100 %; WHITE BLOOD COUNT 6.4 10^3/uL (4.0-10.5)
[2018-05-16 05:51] LABS: BLOOD UREA NITROGEN 37 mg/dL (7-20); CALCIUM 8.5 mg/dL (8.4-10.2); CHLORIDE 91 mmol/L (98-107); GLUCOSE 103 mg/dL (75-110); POTASSIUM 4.8 mmol/L (3.6-5.0); SODIUM 141.6 mmol/L (137-145)
[2018-05-16 06:03] LABS: ANION GAP 9 (5-19); CARBON DIOXIDE 42 mmol/L (22-30)
[2018-05-16] MEDS: FUROSEMIDE INJ/PF 40 MG/4 ML SDV IV SCH (12:39)
[2018-05-16] MEDS: ASPIRIN 81 MG TABLET, CHEWABLE PO SCH (12:47)
[2018-05-16] MEDS: DOCUSATE SODIUM 100 MG CAPSULE PO SCH ×2 (13:28→18:40)
[2018-05-16] MEDS: POTASSIUM CHLORIDE 10 MEQ CAPSULE.ER PO SCH (13:29)
[2018-05-16] MEDS: CARVEDILOL 3.125 MG TABLET PO SCH ×2 (13:29→21:50)
[2018-05-16] MEDS: DIGOXIN 0.125 MG TABLET PO SCH (13:32)
[2018-05-16] MEDS: ENOXAPARIN SODIUM INJ 30 MG/0.3 ML DISP.SYRIN SUBCUT SCH (13:33)
[2018-05-16] MEDS: GABAPENTIN 100 MG CAPSULE PO SCH ×2 (13:34→21:50)
[2018-05-16] MEDS: CEFTRIAXONE SODIUM 1,000 MG in DEXTROSE 5%-WATER 50 ML IV SCH (13:34)
--- NOTE | 2018-05-16 15:06 | PDOC PROGRESS REPORT ---
Subjective Progress Note for:: 05/16/18 Subjective:: This is a 62-year-old male with a past medical history of CAD, prior CABG, COPD, chronic systolic heart failure from ischemic cardiomyopathy with prior AICD placement, chronic respiratory failure on home O2, history of CVA with residual partial expressive aphasia who initially presented with increasing shortness of breath and leg swelling. Patient was admitted for CHF exacerbation. Patient has partial expressive aphasia (has some residual slurring and pauses) but is coherent and is able to converse with provider. He says his SOB is at baseline but he becomes short of breath when lying supine. He has been having persistent orthopnea. 05/13: Discussed in length again this morning with caregiver (Nuria) and patient. We discussed the need for thoracentesis again this morning including the indication due to his persistent orthopnea and significant bilateral pleural effusion. Also discussed the small risk of pneumothorax. Patient did agree undergo thoracentesis as he has been having patient orthopnea. Patient is oriented to person, place and situation. Also discussed with mechanical planner on bedside about possible option to be transferred to a [facility] in [place] as patient is a his history of placement and disposition. He does not want to be transferred at this time and would prefer to stay here. 05/14: Patient does appear to have into capacity to make his own medical decisions. Patient was also evaluated by psych who deemed the same. Discussed in length again today about plan and disposition. Patient says he does not want to go to a penitentiary or rehab. He also does not want to talk about his CODE STATUS and says that he will "sort it out" later. Offered palliative care consult and he is receptive to it but not hospice. He says his breathing has improved after the thoracentesis. Motorcycle Builder recommended BiPAP at home. Patient is resistant on using BiPAP at home but agrees to try it here while inpatient and see if he tolerates it. 05/15: Upon encounter this morning, patient was sleeping on the recliner. Patient says that his house is not fixed yet. He says he does not want to go to any of the surrounding SNF/rehab facilities at this time but is agreeable to being transferred to the [facility] in [place]. Convinced on trying the BiPAP and he says he will try wearing it. 05/16: No acute event overnight. Patient has complied with BIPAP. He says his breathing has slightly improved but still has orthopnea. Denies chest pain or dizziness. [facility] Reason For Visit: CHF EXACERBATION Physical Exam Vital Signs: Temp Pulse Resp BP Pulse Ox 98.9 F 93 20 125/76 100 05/16/18 12:11 05/16/18 12:11 05/16/18 12:11 05/16/18 12:11 05/16/18 12:11 Intake & Output 05/15/18 05/16/18 05/17/18 06:59 06:59 06:59 Intake Total 989 1304 550 Output Total 1680 1925 600 Balance -691 -621 -50 Weight 184 lb 1.376 oz General appearance: PRESENT: no acute distress, well-developed, well-nourished Head exam: PRESENT: atraumatic, normocephalic Eye exam: PRESENT: conjunctiva pink, EOMI, PERRLA. ABSENT: scleral icterus Ear exam: PRESENT: normal external ear exam Mouth exam: PRESENT: moist, tongue midline Neck exam: ABSENT: carotid bruit, JVD, lymphadenopathy, thyromegaly Respiratory exam: PRESENT: decreased breath sounds - decreased BS on the bases, about the same from yesterday, rhonchi. ABSENT: rales, wheezes GI/Abdominal exam: PRESENT: normal bowel sounds, soft. ABSENT: distended, guarding, mass, organolmegaly, rebound, tenderness Rectal exam: PRESENT: deferred Neurological exam: PRESENT: alert, oriented to person, oriented to place, oriented to time, oriented to situation, CN II-XII grossly intact. ABSENT: motor sensory deficit Results Laboratory Results: 05/16/18 04:49 05/16/18 04:49 05/16/18 05/16/18 04:49 04:49 WBC 6.4 RBC 4.47 Hgb 12.4 L Hct 38.4 MCV 86 MCH 27.8 MCHC 32.3 RDW 16.8 H Plt Count 186 Seg Neutrophils % 56.5 Lymphocytes % 19.9 Monocytes % 17.8 H Eosinophils % 4.9 Basophils % 0.9 Absolute Neutrophils 3.6 Absolute Lymphocytes 1.3 Absolute Monocytes 1.1 Absolute Eosinophils 0.3 Absolute Basophils 0.1 Sodium 141.6 Potassium 4.8 Chloride 91 L Carbon Dioxide 42 H* Anion Gap 9 BUN 37 H Creatinine 1.25 Est GFR ( Amer) > 60 Est GFR (Non-Af Amer) 58 L Glucose 103 Calcium 8.5 05/11/18 05/11/18 05/11/18 09:35 09:35 09:35 Creatine Kinase 37 L Troponin I 0.071 NT-Pro-B Natriuret Pep 6800 H 05/11/18 05/11/18 05/12/18 12:30 19:00 01:06 Creatine Kinase Troponin I 0.067 0.064 0.050 NT-Pro-B Natriuret Pep Impressions: Thoracentesis Ultrasound 05/13/18 10:06 IMPRESSION: SUCCESSFUL THORACENTESIS USING ULTRASOUND GUIDANCE. Chest X-Ray 05/15/18 14:08 IMPRESSION: Cardiomegaly with bilateral pleural effusions. No garcia pulmonary edema. Cannot exclude limited right lower lobe pneumonia. Assessment & Plan - Diagnosis (1) Acute and chronic respiratory failure with hypoxia Is this a current diagnosis for this admission?: Yes Plan: Secondary to CHF exacerbation. He has started to comply to BiPAP today. BIPAP 4hrs on/4 hrs off. (2) Acute on chronic systolic (congestive) heart failure Is this a current diagnosis for this admission?: Yes Plan: Combined systolic and diastolic biventricular failure. Continue Lasix 40 mg every 12. Cardiology following. Echo shows an EF of 30-35%, grade 2 diastolic dysfunction and dilated left and right ventricular. Patient already has an AICD. Patient is not on UZMA inhibitor hence is not on optimal medical therapy. CHF medication regimen cannot be optimized as patient has had angioedema from captopril before. Both UZMA inhibitors and Entresto will be contraindicated to a history of ACEi-associated angioedema. Continue Coreg. Resume Aldactone. Decrease Lasix to 40 mg IV daily from q12 due to alkalosis. (3) Pleural effusion Is this a current diagnosis for this admission?: Yes Plan: S/P right sided thoracentesis (750 cc) on 05/13/18. Pleural fluid analysis is consistent with transudative effusion likely related to patient's CHF. Chest x- ray after thoracentesis did show improvement in aeration of the right lower lung salazar. Recheck chest x-ray tomorrow. (4) CAD (coronary artery disease) Is this a current diagnosis for this admission?: Yes Plan: Stable. Continue aspirin, statin and beta steve. - Time Time Spent with patient: 15-24 minutes
[2018-05-16] MEDS: ALPRAZOLAM 0.25 MG TABLET PO PRN (15:51)
[2018-05-17] MEDS ORDERED: ROPINIROLE HCL 0.25 MG TABLET PO ONE (02:45)
[2018-05-17] MEDS: DOCUSATE SODIUM 100 MG CAPSULE PO SCH ×2 (09:05→18:06)
[2018-05-17] MEDS: ASPIRIN 81 MG TABLET, CHEWABLE PO SCH (09:06)
[2018-05-17] MEDS: GABAPENTIN 100 MG CAPSULE PO SCH ×2 (09:06→21:35)
[2018-05-17] MEDS: CARVEDILOL 3.125 MG TABLET PO SCH ×2 (09:06→21:35)
[2018-05-17] MEDS: CEFTRIAXONE SODIUM 1,000 MG in DEXTROSE 5%-WATER 50 ML IV SCH (09:06)
[2018-05-17] MEDS: POTASSIUM CHLORIDE 10 MEQ CAPSULE.ER PO SCH (09:06)
[2018-05-17] MEDS: DIGOXIN 0.125 MG TABLET PO SCH (09:06)
[2018-05-17] MEDS: FUROSEMIDE INJ/PF 40 MG/4 ML SDV IV SCH (09:07)
[2018-05-17] MEDS: ENOXAPARIN SODIUM INJ 30 MG/0.3 ML DISP.SYRIN SUBCUT SCH (09:07)
[2018-05-17] MEDS: SPIRONOLACTONE 25 MG TABLET PO SCH (09:07)
[2018-05-17] MEDS: ACETAMINOPHEN 325 MG TABLET PO PRN ×2 (09:56→18:06)
--- NOTE | 2018-05-17 11:21 | RADIOLOGY REPORT (SQ) ---
EXAM DESCRIPTION: CHEST SINGLE VIEW COMPLETED DATE/TIME: 05/17/2018 11:03 am REASON FOR STUDY: reassess pleural eff, had thoracentesis COMPARISON: 05/15/2018 EXAM PARAMETERS: NUMBER OF VIEWS: One view. TECHNIQUE: Single frontal radiographic view of the chest acquired. RADIATION DOSE: NA LIMITATIONS: None. FINDINGS: LUNGS AND PLEURA: Decrease in the right pleural effusion with persistent moderate amount o f fluid. Right mid zone opacities. Persistent retrocardiac density likely a fluid and atelectasis. MEDIASTINUM AND HILAR STRUCTURES: No masses. Contour normal. HEART AND VASCULAR STRUCTURES: Heart enlarged. Vascular congestion. BONES: No acute findings. HARDWARE: Cardiac unchanged. OTHER: No other significant finding. IMPRESSION: Decrease in the right pleural effusion but with persistent moderate effusion basilar opa cities. Persistent prominent left retrocardiac density likely effusion/atelectasis. TECHNICAL DOCUMENTATION: JOB ID: [id number] [employer] All Rights Reserved Reading location - IP/workstation name: [email or web address]
[2018-05-17 12:01] LABS: BLOOD UREA NITROGEN 32 mg/dL (7-20); CALCIUM 9.2 mg/dL (8.4-10.2); CHLORIDE 89 mmol/L (98-107); GLUCOSE 118 mg/dL (75-110); POTASSIUM 4.6 mmol/L (3.6-5.0)
[2018-05-17 12:12] LABS: ANION GAP 6 (5-19)
[2018-05-17 12:14] LABS: CARBON DIOXIDE 47 mmol/L (22-30)
--- NOTE | 2018-05-17 12:14 | PDOC PROGRESS REPORT ---
Subjective Progress Note for:: 05/17/18 Subjective:: This is a 62-year-old male with a past medical history of CAD, prior CABG, COPD, diet-controlled DM, chronic systolic heart failure from ischemic cardiomyopathy with prior AICD placement, chronic respiratory failure on home O2, history of CVA with residual partial expressive aphasia who initially presented with increasing shortness of breath and leg swelling. Patient was admitted for CHF exacerbation. Patient has partial expressive aphasia (has some residual slurring and pauses) but is coherent and is able to converse with provider. He says his SOB is at baseline but he becomes short of breath when lying supine. He has been having persistent orthopnea. 05/13: Discussed in length again this morning with caregiver (Nuria) and patient. We discussed the need for thoracentesis again this morning including the indication due to his persistent orthopnea and significant bilateral pleural effusion. Also discussed the small risk of pneumothorax. Patient did agree undergo thoracentesis as he has been having patient orthopnea. Patient is oriented to person, place and situation. Also discussed with data recovery planner on bedside about possible option to be transferred to a [facility] in [place] as patient is a his history of placement and disposition. He does not want to be transferred at this time and would prefer to stay here. 05/14: Patient does appear to have into capacity to make his own medical decisions. Patient was also evaluated by psych who deemed the same. Discussed in length again today about plan and disposition. Patient says he does not want to go to a skilled nursing or rehab. He also does not want to talk about his CODE STATUS and says that he will "sort it out" later. Offered palliative care consult and he is receptive to it but not hospice. He says his breathing has improved after the thoracentesis. Tube Cutter Operator recommended BiPAP at home. Patient is resistant on using BiPAP at home but agrees to try it here while inpatient and see if he tolerates it. 05/15: Upon encounter this morning, patient was sleeping on the recliner. Patient says that his house is not fixed yet. He says he does not want to go to any of the surrounding SNF/rehab facilities at this time but is agreeable to being transferred to the [facility] in [place]. Convinced on trying the BiPAP and he says he will try wearing it. 05/16: No acute event overnight. Patient has complied with BIPAP. He says his breathing has slightly improved but still has orthopnea. Denies chest pain or dizziness. 05/17: Patient says his breathing has improved and he feels better today. He says he can use the BIPAP for 2 hrs but is willing to try to extend it to 3-4 hrs today. Still awaiting for update on transfer to [facility] in [facility]. Reason For Visit: CHF EXACERBATION Physical Exam Vital Signs: Temp Pulse Resp BP Pulse Ox 97.8 F 90 15 119/68 98 05/17/18 08:53 05/17/18 08:53 05/17/18 08:53 05/17/18 08:53 05/17/18 08:53 Intake & Output 05/16/18 05/17/18 05/18/18 06:59 06:59 06:59 Intake Total 1304 600 50 Output Total 1925 1475 300 Balance -762 -826 -905 General appearance: PRESENT: no acute distress, well-developed, well-nourished Head exam: PRESENT: atraumatic, normocephalic Eye exam: PRESENT: conjunctiva pink, EOMI, PERRLA. ABSENT: scleral icterus Ear exam: PRESENT: normal external ear exam Mouth exam: PRESENT: moist, tongue midline Respiratory exam: PRESENT: decreased breath sounds - decreased BS on the bases with occasional rales, rales, rhonchi. ABSENT: wheezes Pulses: PRESENT: normal dorsalis pedis pul GI/Abdominal exam: PRESENT: normal bowel sounds, soft. ABSENT: distended, guarding, mass, organolmegaly, rebound, tenderness Rectal exam: PRESENT: deferred Neurological exam: PRESENT: alert, awake, oriented to person, oriented to place, oriented to time, oriented to situation Results Laboratory Results: 05/16/18 04:49 05/16/18 04:49 05/13/18 12:35 Pleural Fluid - Right Pleural Effusion Gram Stain - Final 05/13/18 12:35 Pleural Fluid - Right Pleural Effusion Body Fluid Culture - Final NO AEROBIC OR ANAEROBIC ORGANISMS RECOVERED 05/11/18 05/11/18 05/11/18 09:35 09:35 09:35 Creatine Kinase 37 L Troponin I 0.071 NT-Pro-B Natriuret Pep 6800 H 05/11/18 05/11/18 05/12/18 12:30 19:00 01:06 Creatine Kinase Troponin I 0.067 0.064 0.050 NT-Pro-B Natriuret Pep Impressions: Thoracentesis Ultrasound 05/13/18 10:06 IMPRESSION: SUCCESSFUL THORACENTESIS USING ULTRASOUND GUIDANCE. Chest X-Ray 05/17/18 09:40 IMPRESSION: Decrease in the right pleural effusion but with persistent moderate effusion basilar opacities. Persistent prominent left retrocardiac density likely effusion/atelectasis. Assessment & Plan - Diagnosis (1) Acute and chronic respiratory failure with hypoxia Is this a current diagnosis for this admission?: Yes Plan: Secondary to CHF exacerbation. He was on BIPAP for 2 hrs overnight. He is willing to extend it to 4 hrs/4 hrs off today. (2) Acute on chronic systolic (congestive) heart failure Is this a current diagnosis for this admission?: Yes Plan: Combined systolic and diastolic biventricular failure. Continue Lasix 40 mg every 12. Cardiology following. Echo shows an EF of 30-35%, grade 2 diastolic dysfunction and dilated left and right ventricular. Patient already has an AICD. Patient is not on UZMA inhibitor hence is not on optimal medical therapy. CHF medication regimen cannot be optimized as patient has had angioedema from captopril before. Both UZMA inhibitors and Entresto will be contraindicated to a history of ACEi-associated angioedema. Continue Coreg and Aldactone. 05/16/18: Decreased Lasix to 40 mg IV daily from q12 due to alkalosis. (3) Pleural effusion Is this a current diagnosis for this admission?: Yes Plan: S/P right sided thoracentesis (750 cc) on 05/13/18. Pleural fluid analysis is consistent with transudative effusion likely related to patient's CHF. Chest x- ray after thoracentesis did show improvement in aeration of the right lower lung salazar. (4) CAD (coronary artery disease) Is this a current diagnosis for this admission?: Yes Plan: Stable. Continue aspirin, statin and beta steve. - Time Time Spent with patient: 15-24 minutes
[2018-05-17] MEDS: CYCLOSPORINE 0.05% OPH EMULSIO 0.4 ML DROPERETTE OU SCH (13:22)
[2018-05-17 17:47] LABS: ARTERIAL BLOOD BASE EXCESS 17.9 mmol/L; ARTERIAL BLOOD H2CO3 2.02 mmol/L (1.05-1.35); ARTERIAL BLOOD HCO3 45.8 mmol/L (20-24); ARTERIAL BLOOD O2 SATURATION 96.9 % (94-98); ARTERIAL BLOOD PH 7.45 (7.35-7.45); ARTERIAL BLOOD PO2 89.5 mmHg (80-100); ARTERIAL BLOOD TOTAL CO2 47.9 mmol/L (23-27)
[2018-05-17 17:48] LABS: ARTERIAL BLOOD FIO2 2.5L
[2018-05-17] MEDS: ROPINIROLE HCL 0.25 MG TABLET PO SCH (21:35)
[2018-05-18] MEDS: ACETAMINOPHEN 325 MG TABLET PO PRN ×3 (02:09→18:56)
[2018-05-18] MEDS: CARVEDILOL 3.125 MG TABLET PO SCH ×2 (10:28→21:19)
[2018-05-18] MEDS: ASPIRIN 81 MG TABLET, CHEWABLE PO SCH (10:28)
[2018-05-18] MEDS: DIGOXIN 0.125 MG TABLET PO SCH (10:28)
[2018-05-18] MEDS: FUROSEMIDE INJ/PF 40 MG/4 ML SDV IV SCH (10:28)
[2018-05-18] MEDS: DOCUSATE SODIUM 100 MG CAPSULE PO SCH ×2 (10:28→17:26)
[2018-05-18] MEDS: GABAPENTIN 100 MG CAPSULE PO SCH ×2 (10:28→21:19)
[2018-05-18] MEDS: CEFTRIAXONE SODIUM 1,000 MG in DEXTROSE 5%-WATER 50 ML IV SCH (10:28)
[2018-05-18] MEDS: SPIRONOLACTONE 25 MG TABLET PO SCH (10:28)
[2018-05-18] MEDS: POTASSIUM CHLORIDE 10 MEQ CAPSULE.ER PO SCH (10:28)
[2018-05-18] MEDS: ENOXAPARIN SODIUM INJ 30 MG/0.3 ML DISP.SYRIN SUBCUT SCH (10:29)
[2018-05-18] MEDS: CYCLOSPORINE 0.05% OPH EMULSIO 0.4 ML DROPERETTE OU SCH (10:29)
--- NOTE | 2018-05-18 14:14 | PDOC PROGRESS REPORT ---
Subjective Progress Note for:: 05/18/18 Subjective:: This is a 62-year-old male with a past medical history of CAD, prior CABG, COPD, diet-controlled DM, chronic systolic heart failure from ischemic cardiomyopathy with prior AICD placement, chronic respiratory failure on home O2, history of CVA with residual partial expressive aphasia who initially presented with increasing shortness of breath and leg swelling. Patient was admitted for CHF exacerbation. Patient has partial expressive aphasia (has some residual slurring and pauses) but is coherent and is able to converse with provider. He says his SOB is at baseline but he becomes short of breath when lying supine. He has been having persistent orthopnea. 05/13: Discussed in length again this morning with caregiver (Nuria) and patient. We discussed the need for thoracentesis again this morning including the indication due to his persistent orthopnea and significant bilateral pleural effusion. Also discussed the small risk of pneumothorax. Patient did agree undergo thoracentesis as he has been having patient orthopnea. Patient is oriented to person, place and situation. Also discussed with convention planner on bedside about possible option to be transferred to a [facility] in [place] as patient is a his history of placement and disposition. He does not want to be transferred at this time and would prefer to stay here. 05/14: Patient does appear to have into capacity to make his own medical decisions. Patient was also evaluated by psych who deemed the same. Discussed in length again today about plan and disposition. Patient says he does not want to go to a jail or rehab. He also does not want to talk about his CODE STATUS and says that he will "sort it out" later. Offered palliative care consult and he is receptive to it but not hospice. He says his breathing has improved after the thoracentesis. Rock Crusher Operator recommended BiPAP at home. Patient is resistant on using BiPAP at home but agrees to try it here while inpatient and see if he tolerates it. 05/15: Upon encounter this morning, patient was sleeping on the recliner. Patient says that his house is not fixed yet. He says he does not want to go to any of the surrounding SNF/rehab facilities at this time but is agreeable to being transferred to the [facility] in [place]. Convinced on trying the BiPAP and he says he will try wearing it. 05/16: No acute event overnight. Patient has complied with BIPAP. He says his breathing has slightly improved but still has orthopnea. Denies chest pain or dizziness. 05/17: Patient says his breathing has improved and he feels better today. He says he can use the BIPAP for 2 hrs but is willing to try to extend it to 3-4 hrs today. 05/18: Patient only used BIPAP for 1.5 hrs last night. Upon encounter, he does say that he breathes and feels better when on BIPAP. He was advised on increas ing his BIPAP use again today. He denies worsening SOB or chest pain. Still awaiting for update on transfer to [facility] in [facility]. Reason For Visit: CHF EXACERBATION Physical Exam Vital Signs: Temp Pulse Resp BP Pulse Ox 98.0 F 88 24 H 112/71 100 05/18/18 04:36 05/18/18 07:00 05/18/18 04:36 05/18/18 04:36 05/18/18 04:36 Intake & Output 05/17/18 05/18/18 05/19/18 06:59 06:59 06:59 Intake Total 600 50 50 Output Total 1475 1600 Balance -875 -1550 50 General appearance: PRESENT: no acute distress, well-developed, well-nourished Head exam: PRESENT: atraumatic, normocephalic Eye exam: PRESENT: conjunctiva pink, EOMI, PERRLA. ABSENT: scleral icterus Ear exam: PRESENT: normal external ear exam Mouth exam: PRESENT: moist, tongue midline Neck exam: ABSENT: carotid bruit, JVD, lymphadenopathy, thyromegaly Respiratory exam: PRESENT: decreased breath sounds, rales - occasional rales on the bases. ABSENT: rhonchi, wheezes Cardiovascular exam: PRESENT: RRR. ABSENT: bradycardia Pulses: PRESENT: normal dorsalis pedis pul GI/Abdominal exam: PRESENT: normal bowel sounds, soft. ABSENT: distended, guarding, mass, organolmegaly, rebound, tenderness Rectal exam: PRESENT: deferred Neurological exam: PRESENT: alert, oriented to person, oriented to place, andreea ented to time, oriented to situation Results Laboratory Results: 05/16/18 04:49 05/17/18 11:53 05/17/18 17:35 Carbonic Acid 2.02 H HCO3/H2CO3 Ratio 22:1 ABG pH 7.45 ABG pCO2 67.0 H ABG pO2 89.5 ABG HCO3 45.8 H ABG O2 Saturation 96.9 ABG Base Excess 17.9 FiO2 2.5L 05/11/18 05/11/18 05/11/18 09:35 09:35 09:35 Creatine Kinase 37 L Troponin I 0.071 NT-Pro-B Natriuret Pep 6800 H 05/11/18 05/11/18 05/12/18 12:30 19:00 01:06 Creatine Kinase Troponin I 0.067 0.064 0.050 NT-Pro-B Natriuret Pep Impressions: Thoracentesis Ultrasound 05/13/18 10:06 IMPRESSION: SUCCESSFUL THORACENTESIS USING ULTRASOUND GUIDANCE. Chest X-Ray 05/17/18 09:40 IMPRESSION: Decrease in the right pleural effusion but with persistent moderate effusion basilar opacities. Persistent prominent left retrocardiac density l ikely effusion/atelectasis. Assessment & Plan - Diagnosis (1) Acute and chronic respiratory failure with hypoxia Is this a current diagnosis for this admission?: Yes Plan: Secondary to CHF exacerbation. He was on BIPAP for 1.5 hrs overnight. Encouraged again to increase BIPAP use to 4 hrs/4 hrs off today. (2) Acute on chronic systolic (congestive) heart failure Is this a current diagnosis for this admission?: Yes Plan: Combined systolic and diastolic biventricular failure. Continue Lasix 40 mg daily. Cardiology following. Echo shows an EF of 30-35%, grade 2 diastolic dysfunction and dilated left and right ventricular. Patient already has an AICD. Patient is not on UZMA inhibitor hence is not on optimal medical therapy. CHF medication regimen cannot be optimized as patient has had angioedema from capto pril before. Both UZMA inhibitors and Entresto will be contraindicated to a history of ACEi-associated angioedema. Discussed with cardio and pulm. Recommendation for BIPAP at home/discharge for his biventricular heart failure and significant pulmonary hypertension. Continue Coreg and Aldactone. 05/16/18: Decreased Lasix to 40 mg IV daily from q12 due to alkalosis. (3) Pleural effusion Is this a current diagnosis for this admission?: Yes Plan: S/P right sided thoracentesis (750 cc) on 05/13/18. Pleural fluid analysis is consistent with transudative effusion likely related to patient's CHF. Chest x- ray after thoracentesis did show improvement in aeration of the right lower lung salazar. (4) CAD (coronary artery disease) Is this a current diagnosis for this admission?: Yes Plan: Stable. Continue aspirin, statin and beta steve. - Time Time Spent with patient: 15-24 minutes
[2018-05-18] MEDS: ROPINIROLE HCL 0.25 MG TABLET PO SCH (21:19)
[2018-05-19] MEDS: ACETAMINOPHEN 325 MG TABLET PO PRN ×3 (03:04→18:56)
[2018-05-19] MEDS: FUROSEMIDE INJ/PF 40 MG/4 ML SDV IV SCH (09:15)
[2018-05-19] MEDS: DIGOXIN 0.125 MG TABLET PO SCH (09:16)
[2018-05-19] MEDS: CARVEDILOL 3.125 MG TABLET PO SCH ×2 (09:16→21:14)
[2018-05-19] MEDS: DOCUSATE SODIUM 100 MG CAPSULE PO SCH ×2 (09:16→17:30)
[2018-05-19] MEDS: POTASSIUM CHLORIDE 10 MEQ CAPSULE.ER PO SCH (09:16)
[2018-05-19] MEDS: GABAPENTIN 100 MG CAPSULE PO SCH ×2 (09:16→21:14)
[2018-05-19] MEDS: ASPIRIN 81 MG TABLET, CHEWABLE PO SCH (09:16)
[2018-05-19] MEDS: ENOXAPARIN SODIUM INJ 30 MG/0.3 ML DISP.SYRIN SUBCUT SCH (09:17)
[2018-05-19] MEDS ORDERED: METHENAMINE HIPPURATE PO SCH (10:15)
--- NOTE | 2018-05-19 10:29 | PDOC PROGRESS REPORT ---
Subjective Progress Note for:: 05/19/18 Subjective:: This is a 62-year-old male with a past medical history of CAD, prior CABG, COPD, diet-controlled DM, chronic systolic heart failure from ischemic cardiomyopathy with prior AICD placement, chronic respiratory failure on home O2, history of CVA with residual partial expressive aphasia who initially presented with increasing shortness of breath and leg swelling. Patient was admitted for CHF exacerbation. Patient has partial expressive aphasia (has some residual slurring and pauses) but is coherent and is able to converse with provider. He says his SOB is at baseline but he becomes short of breath when lying supine. He has been having persistent orthopnea. 05/13: Discussed in length again this morning with caregiver (Nuria) and patient. We discussed the need for thoracentesis again this morning including the indication due to his persistent orthopnea and significant bilateral pleural effusion. Also discussed the small risk of pneumothorax. Patient did agree undergo thoracentesis as he has been having patient orthopnea. Patient is oriented to person, place and situation. Also discussed with buyer planner on bedside about possible option to be transferred to a [facility] in [place] as patient is a his history of placement and disposition. He does not want to be transferred at this time and would prefer to stay here. 05/14: Patient does appear to have into capacity to make his own medical decisions. Patient was also evaluated by psych who deemed the same. Discussed in length again today about plan and disposition. Patient says he does not want to go to a residential or rehab. He also does not want to talk about his CODE STATUS and says that he will "sort it out" later. Offered palliative care consult and he is receptive to it but not hospice. He says his breathing has improved after the thoracentesis. Assistant Film Editor recommended BiPAP at home. Patient is resistant on using BiPAP at home but agrees to try it here while inpatient and see if he tolerates it. 05/15: Upon encounter this morning, patient was sleeping on the recliner. Patient says that his house is not fixed yet. He says he does not want to go to any of the surrounding SNF/rehab facilities at this time but is agreeable to being transferred to the [facility] in [place]. Convinced on trying the BiPAP and he says he will try wearing it. 05/16: No acute event overnight. Patient has complied with BIPAP. He says his breathing has slightly improved but still has orthopnea. Denies chest pain or dizziness. 05/17: Patient says his breathing has improved and he feels better today. He says he can use the BIPAP for 2 hrs but is willing to try to extend it to 3-4 hrs today. 05/18: Patient only used BIPAP for 1.5 hrs last night. Upon encounter, he does say that he breathes and feels better when on BIPAP. He was advised on increa sing his BIPAP use again today. He denies worsening SOB or chest pain. Still awaiting for update on transfer to [facility] in [facility]. 05/19/2018-no acute events in the last 24 hours as per the patient he is using BiPAP 3-4 hours a day. He is comfortably in the chair on oxygen via nasal tom kurt. Denies any problems. Waiting for placement in [facility]. Reason For Visit: CHF EXACERBATION Physical Exam Vital Signs: Temp Pulse Resp BP Pulse Ox 97.3 F 94 20 111/70 100 05/19/18 08:59 05/19/18 08:59 05/19/18 08:59 05/19/18 08:59 05/19/18 08:59 Intake & Output 05/18/18 05/19/18 05/20/18 06:59 06:59 06:59 Intake Total 50 286 Output Total 1600 1650 Balance -1550 -1364 General appearance: PRESENT: no acute distress Head exam: PRESENT: atraumatic Eye exam: PRESENT: PERRLA Mouth exam: PRESENT: moist Neck exam: ABSENT: carotid bruit, JVD, lymphadenopathy, thyromegaly Respiratory exam: PRESENT: decreased breath sounds, tachypnea. ABSENT: crackles, wheezes Cardiovascular exam: PRESENT: RRR. ABSENT: diastolic murmur, rubs, systolic murmur GI/Abdominal exam: PRESENT: normal bowel sounds, soft. ABSENT: distended, gua rding, mass, organolmegaly, rebound, tenderness Extremities exam: ABSENT: +1 edema, +2 edema Neurological exam: PRESENT: alert, awake, oriented to person, oriented to place, oriented to time, oriented to situation, CN II-XII grossly intact. ABSENT: motor sensory deficit Psychiatric exam: PRESENT: appropriate affect, normal mood. ABSENT: homicidal ideation, suicidal ideation Results Laboratory Results: 05/16/18 04:49 05/17/18 11:53 05/11/18 05/11/18 05/11/18 09:35 09:35 09:35 Creatine Kinase 37 L Troponin I 0.071 NT-Pro-B Natriuret Pep 6800 H 05/11/18 05/11/18 05/12/18 12:30 19:00 01:06 Creatine Kinase Troponin I 0.067 0.064 0.050 NT-Pro-B Natriuret Pep Impressions: Thoracentesis Ultrasound 05/13/18 10:06 IMPRESSION: SUCCESSFUL THORACENTESIS USING ULTRASOUND GUIDANCE. Chest X-Ray 05/17/18 09:40 IMPRESSION: Decrease in the right pleural effusion but with persistent moderate effusion basilar opacities. Persistent prominent left retrocardiac density likely effusion/atelectasis. Assessment & Plan - Diagnosis (1) Acute and chronic respiratory failure with hypoxia Is this a current diagnosis for this admission?: Yes Plan: 05/19/2018 acute on chronic respiratory failure with hypoxia probably secondary to CHF exacerbation. He is on BiPAP for 3-4 hours/day. Plan is to continue the current management. (2) Acute on chronic systolic (congestive) heart failure Is this a current diagnosis for this admission?: Yes Plan: Combined systolic and diastolic biventricular failure. Continue Lasix 40 mg daily. Cardiology following. Echo shows an EF of 30-35%, grade 2 diastolic dysfunction and dilated left and right ventricular. Patient already has an AICD. Patient is not on UZMA inhibitor hence is not on optimal medical therapy. CHF medication regimen cannot be optimized as patient has had angioedema from captopril before. Both UZMA inhibitors and Entresto will be contraindicated to a history of ACEi-associated angioedema. Discussed with cardio and pulm. Recommendation for BIPAP at home/discharge for his biventricular heart failure and significant pulmonary hypertension. Continue Coreg and Aldactone. 05/16/18: Decreased Lasix to 40 mg IV daily from q12 due to alkalosis. 05/19/2018-patient has history of congestive heart failure. Which is combined systolic diastolic biventricular failure. Patient is on Lasix 40 mg IV twice daily. Audiology on board. EF is 30-35%. Grade 2 diastolic dysfunction and dilated left and right ventricular chambers. Patient has AICD. Patient is not on UZMA inhibitors because of history of angioedema. UZMA inhibitors and Entresto are not contraindicated because of the ACEi associated angioedema. Patient is also on Coreg and Aldactone. And is to discharge him to [facility] on BiPAP. (3) Pleural effusion Is this a current diagnosis for this admission?: Yes Plan: 05/19/2018-patient came in with a right-sided pleural effusion status post thoracentesis on 05/13/2018 with removal of some 50-50 cc of fluid. Fluid analysis consistent with transudate. Which is likely secondary to CHF. Negative for infection. (4) CAD (coronary artery disease) Is this a current diagnosis for this admission?: Yes Plan: 05/19/2018 patient has history of coronary artery disease. No complaints of any chest pains in the last 24-48 hours. Patient is on statins, aspirin, beta- blockers. Plan is to continue the present management. - Time Time Spent with patient: 15-24 minutes Anticipated discharge: SNF
[2018-05-19] MEDS: SPIRONOLACTONE 25 MG TABLET PO SCH (11:08)
[2018-05-19] MEDS: CEFTRIAXONE SODIUM 1,000 MG in DEXTROSE 5%-WATER 50 ML IV SCH (11:09)
[2018-05-19] MEDS: CYCLOSPORINE 0.05% OPH EMULSIO 0.4 ML DROPERETTE OU SCH (11:09)
[2018-05-19] MEDS ORDERED: (PENDING PHARMACY ID) (Dextran 70/Hypromellose [Artificial Tears] 1 DROP) OP SCH (14:00)
[2018-05-19] MEDS: POLYVINYL ALCOHOL 1.4% OPH SOLN 15 ML OP SCH ×4 (17:31→21:16)
[2018-05-19] MEDS ORDERED: (PENDING PHARMACY ID) (Omega-3 Fatty Acids/Fish Oil [Fish Oil 1,000 Mg Capsule] 2,000 MG) PO SCH (18:00)
[2018-05-19] MEDS: ROPINIROLE HCL 0.25 MG TABLET PO SCH (21:14)
[2018-05-20] MEDS: ACETAMINOPHEN 325 MG TABLET PO PRN ×3 (05:14→21:04)
[2018-05-20 05:36] LABS: HEMATOCRIT 40.2 % (37.9-51.0); HEMOGLOBIN 13.1 g/dL (13.5-17.0); MEAN CORPUSCULAR HEMOGLOBIN 27.9 pg (27.0-33.4); MEAN CORPUSCULAR HGB CONC 32.6 g/dL (32.0-36.0); MEAN CORPUSCULAR VOLUME 86 fl (80-97); PLATELET COUNT 158 10^3/uL (150-450); RED CELL DISTRIBUTION WIDTH 16.8 % (11.5-14.0); WHITE BLOOD COUNT 5.3 10^3/uL (4.0-10.5)
[2018-05-20 05:51] LABS: ALANINE AMINOTRANSFERASE 22 U/L (21-72); ALBUMIN 3.6 g/dL (3.5-5.0); ALKALINE PHOSPHATASE 81 U/L (38-126); ASPARTATE AMINO TRANSFERASE 36 U/L (17-59); BILIRUBIN,DIRECT 0.3 mg/dL (0.0-0.4); BILIRUBIN,TOTAL 0.6 mg/dL (0.2-1.3); BLOOD UREA NITROGEN 34 mg/dL (7-20); CALCIUM 9.1 mg/dL (8.4-10.2); GLUCOSE 107 mg/dL (75-110); POTASSIUM 5.1 mmol/L (3.6-5.0); TOTAL PROTEIN 6.5 g/dL (6.3-8.2)
[2018-05-20 06:16] LABS: ABSOLUTE LYMPHOCYTES# (MANUAL) 1.5 10^3/uL (0.5-4.7); ABSOLUTE NEUTROPHILS# (MANUAL) 2.5 10^3/uL (1.7-8.2); BASOPHILS % (MANUAL) 0 % (0-2); EOSINOPHILS % (MANUAL) 4 % (0-6); LYMPHOCYTES % (MANUAL) 25 % (13-45); MONOCYTES % (MANUAL) 19 % (3-13); SEGMENTED NEUTROPHILS % (MAN) 48 % (42-78); TOTAL CELLS COUNTED 100
[2018-05-20 06:17] LABS: ANISOCYTOSIS SLIGHT; PLATELET COMMENT ADEQUATE
[2018-05-20 06:24] LABS: ANION GAP 6 (5-19); CHLORIDE 96 mmol/L (98-107); SODIUM 141.4 mmol/L (137-145)
[2018-05-20 06:26] LABS: CARBON DIOXIDE 39 mmol/L (22-30)
[2018-05-20] MEDS: ASPIRIN 81 MG TABLET, CHEWABLE PO SCH (10:45)
[2018-05-20] MEDS: DOCUSATE SODIUM 100 MG CAPSULE PO SCH ×2 (10:45→17:53)
[2018-05-20] MEDS: DIGOXIN 0.125 MG TABLET PO SCH (10:45)
[2018-05-20] MEDS: SPIRONOLACTONE 25 MG TABLET PO SCH (10:45)
[2018-05-20] MEDS: CARVEDILOL 3.125 MG TABLET PO SCH ×2 (10:45→21:05)
[2018-05-20] MEDS: FUROSEMIDE INJ/PF 40 MG/4 ML SDV IV SCH (10:48)
[2018-05-20] MEDS: POLYVINYL ALCOHOL 1.4% OPH SOLN 15 ML OP SCH ×4 (10:48→21:05)
[2018-05-20] MEDS: ENOXAPARIN SODIUM INJ 30 MG/0.3 ML DISP.SYRIN SUBCUT SCH (10:49)
[2018-05-20] MEDS: GABAPENTIN 100 MG CAPSULE PO SCH ×2 (10:50→21:05)
[2018-05-20] MEDS: CYCLOSPORINE 0.05% OPH EMULSIO 0.4 ML DROPERETTE OU SCH (10:50)
--- NOTE | 2018-05-20 10:51 | PDOC PROGRESS REPORT ---
Subjective Progress Note for:: 05/20/18 Subjective:: This is a 62-year-old male with a past medical history of CAD, prior CABG, COPD, diet-controlled DM, chronic systolic heart failure from ischemic cardiomyopathy with prior AICD placement, chronic respiratory failure on home O2, history of CVA with residual partial expressive aphasia who initially presented with increasing shortness of breath and leg swelling. Patient was admitted for CHF exacerbation. Patient has partial expressive aphasia (has some residual slurring and pauses) but is coherent and is able to converse with provider. He says his SOB is at baseline but he becomes short of breath when lying supine. He has been having persistent orthopnea. 05/13: Discussed in length again this morning with caregiver (Nuria) and patient. We discussed the need for thoracentesis again this morning including the indication due to his persistent orthopnea and significant bilateral pleural effusion. Also discussed the small risk of pneumothorax. Patient did agree undergo thoracentesis as he has been having patient orthopnea. Patient is oriented to person, place and situation. Also discussed with naval surface fire support planner on bedside about possible option to be transferred to a [facility] in [place] as patient is a his history of placement and disposition. He does not want to be transferred at this time and would prefer to stay here. 05/14: Patient does appear to have into capacity to make his own medical decisions. Patient was also evaluated by psych who deemed the same. Discussed in length again today about plan and disposition. Patient says he does not want to go to a group home or rehab. He also does not want to talk about his CODE STATUS and says that he will "sort it out" later. Offered palliative care consult and he is receptive to it but not hospice. He says his breathing has improved after the thoracentesis. Branch Assistant recommended BiPAP at home. Patient is resistant on using BiPAP at home but agrees to try it here while inpatient and see if he tolerates it. 05/15: Upon encounter this morning, patient was sleeping on the recliner. Patient says that his house is not fixed yet. He says he does not want to go to any of the surrounding SNF/rehab facilities at this time but is agreeable to being transferred to the [facility] in [place]. Convinced on trying the BiPAP and he says he will try wearing it. 05/16: No acute event overnight. Patient has complied with BIPAP. He says his breathing has slightly improved but still has orthopnea. Denies chest pain or dizziness. 05/17: Patient says his breathing has improved and he feels better today. He says he can use the BIPAP for 2 hrs but is willing to try to extend it to 3-4 hrs today. 05/18: Patient only used BIPAP for 1.5 hrs last night. Upon encounter, he does say that he breathes and feels better when on BIPAP. He was advised on increa sing his BIPAP use again today. He denies worsening SOB or chest pain. Still awaiting for update on transfer to [facility] in [facility]. 05/19/2018-no acute events in the last 24 hours as per the patient he is using BiPAP 3-4 hours a day. He is comfortably in the chair on oxygen via nasal tom kurt. Denies any problems. Waiting for placement in [facility]. 05/20/2018-no acute events in the last 24 hours. Patient is on oxygen via nasal cannula walking in the room. Denies any complaints. Using BiPAP 4 hours a day. Patient is waiting for placement at [facility]. Reason For Visit: CHF EXACERBATION Physical Exam Vital Signs: Temp Pulse Resp BP Pulse Ox 98.5 F 88 18 115/60 99 05/19/18 19:32 05/20/18 07:00 05/19/18 19:32 05/19/18 19:32 05/20/18 01:44 Intake & Output 05/19/18 05/20/18 05/21/18 06:59 06:59 06:59 Intake Total 286 867 Output Total 1650 1675 Balance -1364 -808 General appearance: PRESENT: no acute distress Head exam: PRESENT: atraumatic Eye exam: PRESENT: PERRLA Mouth exam: PRESENT: moist Neck exam: ABSENT: carotid bruit, JVD, lymphadenopathy, thyromegaly Respiratory exam: PRESENT: decreased breath sounds Cardiovascular exam: PRESENT: other - Patient haS a pacemaker. GI/Abdominal exam: PRESENT: normal bowel sounds, soft. ABSENT: distended, guarding, mass, organolmegaly, rebound, tenderness Extremities exam: ABSENT: +1 edema, +2 edema Neurological exam: PRESENT: alert, awake, oriented to person, oriented to place, oriented to time, oriented to situation, CN II-XII grossly intact. ABSENT: motor sensory deficit Psychiatric exam: PRESENT: appropriate affect, normal mood. ABSENT: homicidal ideation, suicidal ideation Results Laboratory Results: 05/20/18 05:06 05/20/18 05:06 05/20/18 05/20/18 05:06 05:06 WBC 5.3 RBC 4.70 Hgb 13.1 L Hct 40.2 MCV 86 MCH 27.9 MCHC 32.6 RDW 16.8 H Plt Count 158 Seg Neutrophils % Not Reportable Lymphocytes % Not Reportable Monocytes % Not Reportable Eosinophils % Not Reportable Basophils % Not Reportable Absolute Neutrophils Not Reportable Absolute Lymphocytes Not Reportable Absolute Monocytes Not Reportable Absolute Eosinophils Not Reportable Absolute Basophils Not Reportable Sodium 141.4 Potassium 5.1 H Chloride 96 L Carbon Dioxide 39 H Anion Gap 6 BUN 34 H Creatinine 1.27 H Est GFR ( Amer) > 60 Est GFR (Non-Af Amer) 57 L Glucose 107 Calcium 9.1 Magnesium 2.2 Total Bilirubin 0.6 AST 36 ALT 22 Alkaline Phosphatase 81 Total Protein 6.5 Albumin 3.6 05/11/18 05/11/18 05/11/18 09:35 09:35 09:35 Creatine Kinase 37 L Troponin I 0.071 NT-Pro-B Natriuret Pep 6800 H 05/11/18 05/11/18 05/12/18 12:30 19:00 01:06 Creatine Kinase Troponin I 0.067 0.064 0.050 NT-Pro-B Natriuret Pep Impressions: Thoracentesis Ultrasound 05/13/18 10:06 IMPRESSION: SUCCESSFUL THORACENTESIS USING ULTRASOUND GUIDANCE. Chest X-Ray 05/17/18 09:40 IMPRESSION: Decrease in the right pleural effusion but with persistent moderate effusion basilar opacities. Persistent prominent left retrocardiac density likely effusion/atelectasis. Assessment & Plan - Diagnosis (1) Acute and chronic respiratory failure with hypoxia Is this a current diagnosis for this admission?: Yes Plan: 05/19/2018 acute on chronic respiratory failure with hypoxia probably secondary to CHF exacerbation. He is on BiPAP for 3-4 hours/day. Plan is to continue the current management. 05/20/2018-patient was admitted for acute on chronic respiratory failure with hypoxia probably secondary to CHF exacerbation. He is using BiPAP 4 hours a day. No acute events in the last 24 hours. Plan is to continue the present management. (2) Acute on chronic systolic (congestive) heart failure Is this a current diagnosis for this admission?: Yes Plan: Combined systolic and diastolic biventricular failure. Continue Lasix 40 mg daily. Cardiology following. Echo shows an EF of 30-35%, grade 2 diastolic d ysfunction and dilated left and right ventricular. Patient already has an AICD. Patient is not on UZMA inhibitor hence is not on optimal medical therapy. CHF medication regimen cannot be optimized as patient has had angioedema from captopril before. Both UZMA inhibitors and Entresto will be contraindicated to a history of ACEi-associated angioedema. Discussed with cardio and pulm. Recommendation for BIPAP at home/discharge for his biventricular heart failure and significant pulmonary hypertension. Continue Coreg and Aldactone. 05/16/18: Decreased Lasix to 40 mg IV daily from q12 due to alkalosis. 05/19/2018-patient has history of congestive heart failure. Which is combined systolic diastolic biventricular failure. Patient is on Lasix 40 mg IV twice daily. cardiology on board. EF is 30-35%. Grade 2 diastolic dysfunction and dilated left and right ventricular chambers. Patient has AICD. Patient is not on UZMA inhibitors because of history of angioedema. UZMA inhibitors and Entresto are not contraindicated because of the ACEi associated angioedema. Patient is also on Coreg and Aldactone. [facility]. 05/20/2018-has a combined systolic diastolic biventricular failure. EF is 30- 35%. Echocardiogram shows grade 2 diastolic dysfunction and dilated left and right ventricular chambers. Patient has AICD. Patient is not on UZMA inhibitors because of history of angioedema. Stoped Aldactone today because potassium is 5.1. (3) Pleural effusion Is this a current diagnosis for this admission?: Yes Plan: 05/19/2018-patient came in with a right-sided pleural effusion status post thoracentesis on 05/13/2018 with removal of 750 cc of fluid. Fluid analysis consistent with transudate. Which is likely secondary to CHF. Negative for infection. 05/20/2018-patient came in with right pleural effusion status post thoracentesis on 05/13/2018. The cultures are negative. (4) CAD (coronary artery disease) Is this a current diagnosis for this admission?: Yes Plan: 05/19/2018 patient has history of coronary artery disease. No complaints of any chest pains in the last 24-48 hours. Patient is on statins, aspirin, beta- blockers. Plan is to continue the present management. 05/20/2018 patient history of coronary artery disease. No complaints of any chest pains during the hospital stay. - Time Time Spent with patient: 15-24 minutes Medications reviewed and adjusted accordingly: Yes Anticipated discharge: SNF
[2018-05-20] MEDS: POTASSIUM CHLORIDE 10 MEQ CAPSULE.ER PO SCH (11:07)
[2018-05-20] MEDS: OMEGA-3 ACID ETHYL ESTERS 1 GM CAPSULE PO SCH ×2 (13:19→17:53)
[2018-05-20] MEDS: ROPINIROLE HCL 0.25 MG TABLET PO SCH (21:05)
[2018-05-21] MEDS: ACETAMINOPHEN 325 MG TABLET PO PRN (02:38)
[2018-05-21] MEDS: GABAPENTIN 100 MG CAPSULE PO SCH ×3 (06:38→21:07)
[2018-05-21] MEDS: ACETAMINOPHEN 325 MG TABLET PO SCH ×3 (09:41→17:12)
[2018-05-21] MEDS: CARVEDILOL 3.125 MG TABLET PO SCH ×2 (09:42→21:07)
[2018-05-21] MEDS: DOCUSATE SODIUM 100 MG CAPSULE PO SCH ×2 (09:42→17:12)
[2018-05-21] MEDS: ASPIRIN 81 MG TABLET, CHEWABLE PO SCH (09:42)
[2018-05-21] MEDS: POTASSIUM CHLORIDE 10 MEQ CAPSULE.ER PO SCH (09:43)
[2018-05-21] MEDS: OMEGA-3 ACID ETHYL ESTERS 1 GM CAPSULE PO SCH ×2 (09:43→17:12)
[2018-05-21] MEDS: DIGOXIN 0.125 MG TABLET PO SCH (09:44)
[2018-05-21] MEDS: FUROSEMIDE INJ/PF 40 MG/4 ML SDV IV SCH (09:45)
[2018-05-21] MEDS: ENOXAPARIN SODIUM INJ 30 MG/0.3 ML DISP.SYRIN SUBCUT SCH (09:45)
[2018-05-21] MEDS: POLYVINYL ALCOHOL 1.4% OPH SOLN 15 ML OP SCH ×4 (09:46→21:08)
[2018-05-21] MEDS: CYCLOSPORINE 0.05% OPH EMULSIO 0.4 ML DROPERETTE OU SCH (09:50)
--- NOTE | 2018-05-21 10:42 | PDOC PROGRESS REPORT ---
Subjective Progress Note for:: 05/21/18 Subjective:: This is a 62-year-old male with a past medical history of CAD, prior CABG, COPD, diet-controlled DM, chronic systolic heart failure from ischemic cardiomyopathy with prior AICD placement, chronic respiratory failure on home O2, history of CVA with residual partial expressive aphasia who initially presented with increasing shortness of breath and leg swelling. Patient was admitted for CHF exacerbation. Patient has partial expressive aphasia (has some residual slurring and pauses) but is coherent and is able to converse with provider. He says his SOB is at baseline but he becomes short of breath when lying supine. He has been having persistent orthopnea. 05/13: Discussed in length again this morning with caregiver (Nuria) and patient. We discussed the need for thoracentesis again this morning including the indication due to his persistent orthopnea and significant bilateral pleural effusion. Also discussed the small risk of pneumothorax. Patient did agree undergo thoracentesis as he has been having patient orthopnea. Patient is oriented to person, place and situation. Also discussed with airport planner on bedside about possible option to be transferred to a [facility] in [place] as patient is a his history of placement and disposition. He does not want to be transferred at this time and would prefer to stay here. 05/14: Patient does appear to have into capacity to make his own medical decisions. Patient was also evaluated by psych who deemed the same. Discussed in length again today about plan and disposition. Patient says he does not want to go to a senior care or rehab. He also does not want to talk about his CODE STATUS and says that he will "sort it out" later. Offered palliative care consult and he is receptive to it but not hospice. He says his breathing has improved after the thoracentesis. Basic Acoustic Analyst recommended BiPAP at home. Patient is resistant on using BiPAP at home but agrees to try it here while inpatient and see if he tolerates it. 05/15: Upon encounter this morning, patient was sleeping on the recliner. Patient says that his house is not fixed yet. He says he does not want to go to any of the surrounding SNF/rehab facilities at this time but is agreeable to being transferred to the [facility] in [place]. Convinced on trying the BiPAP and he says he will try wearing it. 05/16: No acute event overnight. Patient has complied with BIPAP. He says his breathing has slightly improved but still has orthopnea. Denies chest pain or dizziness. 05/17: Patient says his breathing has improved and he feels better today. He says he can use the BIPAP for 2 hrs but is willing to try to extend it to 3-4 hrs today. 05/18: Patient only used BIPAP for 1.5 hrs last night. Upon encounter, he does say that he breathes and feels better when on BIPAP. He was advised on increa sing his BIPAP use again today. He denies worsening SOB or chest pain. Still awaiting for update on transfer to [facility] in [facility]. 05/19/2018-no acute events in the last 24 hours as per the patient he is using BiPAP 3-4 hours a day. He is comfortably in the chair on oxygen via nasal tom kurt. Denies any problems. Waiting for placement in [facility]. 05/20/2018-no acute events in the last 24 hours. Patient is on oxygen via nasal cannula walking in the room. Denies any complaints. Using BiPAP 4 hours a day. Patient is waiting for placement at [facility]. 05/21/2018 no acute events in the last 24 hours. Patient is complaining of pain in both arms. I am going to put him on Percocet 09/25/2024 every 8 as needed for pain. Patient is on 2 L nasal cannula pulse ox is 96%. He is using BiPAP 4 hours a day. Reason For Visit: CHF Physical Exam Vital Signs: Temp Pulse Resp BP Pulse Ox 97.6 F 92 28 H 113/66 97 05/20/18 23:41 05/21/18 02:00 05/21/18 04:24 05/20/18 23:41 05/21/18 07:45 Intake & Output 05/20/18 05/21/18 05/22/18 06:59 06:59 06:59 Intake Total 867 1375 Output Total 2695 3440 Balance -808 -175 General appearance: PRESENT: no acute distress Head exam: PRESENT: atraumatic Eye exam: PRESENT: PERRLA Neck exam: ABSENT: carotid bruit, JVD, lymphadenopathy, thyromegaly Respiratory exam: PRESENT: clear to auscultation rahul, decreased breath sounds. ABSENT: rales, rhonchi, wheezes Cardiovascular exam: PRESENT: RRR. ABSENT: diastolic murmur, rubs, systolic murmur GI/Abdominal exam: PRESENT: normal bowel sounds, soft. ABSENT: distended, guarding, mass, organolmegaly, rebound, tenderness Neurological exam: PRESENT: alert, awake, oriented to person, oriented to place, oriented to time, oriented to situation, CN II-XII grossly intact. ABSENT: motor sensory deficit Psychiatric exam: PRESENT: appropriate affect, normal mood. ABSENT: homicidal ideation, suicidal ideation Results Laboratory Results: 05/20/18 05:06 05/20/18 05:06 05/11/18 05/11/18 05/11/18 09:35 09:35 09:35 Creatine Kinase 37 L Troponin I 0.071 NT-Pro-B Natriuret Pep 6800 H 05/11/18 05/11/18 05/12/18 12:30 19:00 01:06 Creatine Kinase Troponin I 0.067 0.064 0.050 NT-Pro-B Natriuret Pep Impressions: Thoracentesis Ultrasound 05/13/18 10:06 IMPRESSION: SUCCESSFUL THORACENTESIS USING ULTRASOUND GUIDANCE. Chest X-Ray 05/17/18 09:40 IMPRESSION: Decrease in the right pleural effusion but with persistent moderate effusion basilar opacities. Persistent prominent left retrocardiac density likely effusion/atelectasis. Assessment & Plan - Diagnosis (1) Acute and chronic respiratory failure with hypoxia Is this a current diagnosis for this admission?: Yes Plan: 05/19/2018 acute on chronic respiratory failure with hypoxia probably secondary to CHF exacerbation. He is on BiPAP for 3-4 hours/day. Plan is to continue the current management. 05/20/2018-patient was admitted for acute on chronic respiratory failure with hypoxia probably secondary to CHF exacerbation. He is using BiPAP 4 hours a day. No acute events in the last 24 hours. Plan is to continue the present management. 05/21/2018-patient is comfortably in the chair on 2 L oxygen via nasal cannula. Acute on chronic respiratory failure resolved with hypoxia resolved. Is awaiting for placement in [facility]. (2) Acute on chronic systolic (congestive) heart failure Is this a current diagnosis for this admission?: Yes Plan: Combined systolic and diastolic biventricular failure. Continue Lasix 40 mg daily. Cardiology following. Echo shows an EF of 30-35%, grade 2 diastolic dysfunction and dilated left and right ventricular. Patient already has an AICD. Patient is not on UZMA inhibitor hence is not on optimal medical therapy. CHF medication regimen cannot be optimized as patient has had angioedema from captopril before. Both UZMA inhibitors and Entresto will be contraindicated to a history of ACEi-associated angioedema. Discussed with cardio and pulm. Recommendation for BIPAP at home/discharge for his biventricular heart failure and significant pulmonary hypertension. Continue Coreg and Aldactone. 05/16/18: Decreased Lasix to 40 mg IV daily from q12 due to alkalosis. 05/19/2018-patient has history of congestive heart failure. Which is combined systolic diastolic biventricular failure. Patient is on Lasix 40 mg IV twice daily. cardiology on board. EF is 30-35%. Grade 2 diastolic dysfunction and dilated left and right ventricular chambers. Patient has AICD. Patient is not on UZMA inhibitors because of history of angioedema. UZMA inhibitors and Entresto are not contraindicated because of the ACEi associated angioedema. Patient is also on Coreg and Aldactone. [facility] 05/20/2018-has a combined systolic diastolic biventricular failure. EF is 30- 35%. Echocardiogram shows grade 2 diastolic dysfunction and dilated left and right ventricular chambers. Patient has AICD. Patient is not on UZMA inhibitors because of history of angioedema. Stoped Aldactone today because potassium is 5.1. 05/21/2018-patient has history of congestive heart failure combined systolic diastolic biventricular failure with EF of 30-35%. Patient is allergic to UZMA inhibitors gives angioedema. Latest potassium is 5.1. We are going to check his potassium levels today. Yesterday I stopped his spironolactone and we stopped potassium supplementation. (3) Pleural effusion Is this a current diagnosis for this admission?: Yes Plan: 05/19/2018-patient came in with a right-sided pleural effusion status post thoracentesis on 05/13/2018 with removal of 750 cc of fluid. Fluid analysis consistent with transudate. Which is likely secondary to CHF. Negative for infection. 05/20/2018-patient came in with right pleural effusion status post thoracentesis on 05/13/2018. The cultures are negative. 05/21/2018 status post thoracentesis of right pleural effusion 750 cc of fluid was removed. cultures Negative. (4) CAD (coronary artery disease) Is this a current diagnosis for this admission?: Yes Plan: 05/19/2018 patient has history of coronary artery disease. No complaints of any chest pains in the last 24-48 hours. Patient is on statins, aspirin, beta- blockers. Plan is to continue the present management. 05/20/2018 patient history of coronary artery disease. No complaints of any [address] pains during the hospital stay. 05/21/2018 plan is to continue the current management. - Time Time Spent with patient: 15-24 minutes Medications reviewed and adjusted accordingly: Yes Anticipated discharge: SNF
[2018-05-21 11:33] LABS: ABSOLUTE EOSINOPHILS # (AUTO) 0.3 10^3/uL (0.0-0.6); ABSOLUTE MONOCYTES (AUTO) 0.7 10^3/uL (0.1-1.4); ABSOLUTE NEUT (AUTO) 2.4 10^3/uL (1.7-8.2); BASOPHILS % (AUTO) 0.7 % (0-2); EOSINOPHILS % (AUTO) 7.8 % (0-6); HEMATOCRIT 41.8 % (37.9-51.0); HEMOGLOBIN 13.5 g/dL (13.5-17.0); LYMPHOCYTES % (AUTO) 21.5 % (13-45); MEAN CORPUSCULAR HEMOGLOBIN 27.8 pg (27.0-33.4); MEAN CORPUSCULAR HGB CONC 32.4 g/dL (32.0-36.0); MEAN CORPUSCULAR VOLUME 86 fl (80-97); MONOCYTES % (AUTO) 16.4 % (3-13); PLATELET COUNT 166 10^3/uL (150-450); RED BLOOD COUNT 4.87 10^6/uL (4.35-5.55); RED CELL DISTRIBUTION WIDTH 16.4 % (11.5-14.0); SEGMENTED NEUTROPHILS % (AUTO) 53.6 % (42-78); TOTAL CELLS COUNTED % (AUTO) 100 %; WHITE BLOOD COUNT 4.5 10^3/uL (4.0-10.5)
[2018-05-21 11:55] LABS: ALANINE AMINOTRANSFERASE 25 U/L (21-72); ALBUMIN 3.9 g/dL (3.5-5.0); ALKALINE PHOSPHATASE 80 U/L (38-126); ANION GAP 8 (5-19); ASPARTATE AMINO TRANSFERASE 37 U/L (17-59); BILIRUBIN,DIRECT 0.3 mg/dL (0.0-0.4); BILIRUBIN,TOTAL 0.6 mg/dL (0.2-1.3); BLOOD UREA NITROGEN 28 mg/dL (7-20); CALCIUM 9.2 mg/dL (8.4-10.2); CARBON DIOXIDE 39 mmol/L (22-30); CHLORIDE 92 mmol/L (98-107); GLUCOSE 146 mg/dL (75-110); TOTAL PROTEIN 6.2 g/dL (6.3-8.2)
[2018-05-21] MEDS: ROPINIROLE HCL 0.25 MG TABLET PO SCH (21:07)
[2018-05-21] MEDS: ALPRAZOLAM 0.25 MG TABLET PO PRN (21:08)
[2018-05-22] MEDS: ACETAMINOPHEN 325 MG TABLET PO SCH ×5 (00:28→23:48)
[2018-05-22] MEDS: GABAPENTIN 100 MG CAPSULE PO SCH ×3 (05:54→21:26)
[2018-05-22] MEDS: FUROSEMIDE INJ/PF 40 MG/4 ML SDV IV SCH (09:44)
[2018-05-22] MEDS: CARVEDILOL 3.125 MG TABLET PO SCH ×2 (09:45→21:26)
[2018-05-22] MEDS: DOCUSATE SODIUM 100 MG CAPSULE PO SCH ×2 (09:45→17:15)
[2018-05-22] MEDS: ASPIRIN 81 MG TABLET, CHEWABLE PO SCH (09:46)
[2018-05-22] MEDS: OMEGA-3 ACID ETHYL ESTERS 1 GM CAPSULE PO SCH ×2 (09:46→17:15)
[2018-05-22] MEDS: DIGOXIN 0.125 MG TABLET PO SCH (09:47)
[2018-05-22] MEDS: ENOXAPARIN SODIUM INJ 30 MG/0.3 ML DISP.SYRIN SUBCUT SCH (09:47)
[2018-05-22] MEDS: CYCLOSPORINE 0.05% OPH EMULSIO 0.4 ML DROPERETTE OU SCH (09:49)
[2018-05-22] MEDS: POLYVINYL ALCOHOL 1.4% OPH SOLN 15 ML OP SCH ×4 (10:13→23:47)
--- NOTE | 2018-05-22 11:29 | PDOC PROGRESS REPORT ---
Subjective Progress Note for:: 05/22/18 Subjective:: This is a 62-year-old male with a past medical history of CAD, prior CABG, COPD, diet-controlled DM, chronic systolic heart failure from ischemic cardiomyopathy with prior AICD placement, chronic respiratory failure on home O2, history of CVA with residual partial expressive aphasia who initially presented with increasing shortness of breath and leg swelling. Patient was admitted for CHF exacerbation. Patient has partial expressive aphasia (has some residual slurring and pauses) but is coherent and is able to converse with provider. He says his SOB is at baseline but he becomes short of breath when lying supine. He has been having persistent orthopnea. 05/13: Discussed in length again this morning with caregiver (Nuria) and patient. We discussed the need for thoracentesis again this morning including the indication due to his persistent orthopnea and significant bilateral pleural effusion. Also discussed the small risk of pneumothorax. Patient did agree undergo thoracentesis as he has been having patient orthopnea. Patient is oriented to person, place and situation. Also discussed with materials planner/production planner on bedside about possible option to be transferred to a [facility] in [place] as patient is a his history of placement and disposition. He does not want to be transferred at this time and would prefer to stay here. 05/14: Patient does appear to have into capacity to make his own medical decisions. Patient was also evaluated by psych who deemed the same. Discussed in length again today about plan and disposition. Patient says he does not want to go to a [place] [facility] [place] or rehab. He also does not want to talk about his CODE STATUS and says that he will "sort it out" later. Offered palliative care consult and he is receptive to it but not hospice. He says his breathing has improved after the thoracentesis. Pill Packer recommended BiPAP at home. Patient is resistant on using BiPAP at home but agrees to try it here while inpatient and see if he tolerates it. 05/15: Upon encounter this morning, patient was sleeping on the recliner. Patient says that his house is not fixed yet. He says he does not want to go to any of the surrounding SNF/rehab facilities at this time but is agreeable to being transferred to the [facility] in [place]. Convinced on trying the BiPAP and he says he will try wearing it. 05/16: No acute event overnight. Patient has complied with BIPAP. He says his breathing has slightly improved but still has orthopnea. Denies chest pain or dizziness. 05/17: Patient says his breathing has improved and he feels better today. He says he can use the BIPAP for 2 hrs but is willing to try to extend it to 3-4 hrs today. 05/18: Patient only used BIPAP for 1.5 hrs last night. Upon encounter, he does say that he breathes and feels better when on BIPAP. He was advised on increa sing his BIPAP use again today. He denies worsening SOB or chest pain. Still awaiting for update on transfer to [facility] in [facility]. 05/19/2018-no acute events in the last 24 hours as per the patient he is using BiPAP 3-4 hours a day. He is comfortably in the chair on oxygen via nasal tom kurt. Denies any problems. Waiting for placement in [facility]. 05/20/2018-no acute events in the last 24 hours. Patient is on oxygen via nasal cannula walking in the room. Denies any complaints. Using BiPAP 4 hours a day. Patient is waiting for placement at [facility]. 05/21/2018 no acute events in the last 24 hours. Patient is complaining of pain in both arms. I am going to put him on Percocet 09/25/2024 every 8 as needed for pain. Patient is on 2 L nasal cannula pulse ox is 96%. He is using BiPAP 4 hours a day. 05/22/2018-no acute events over the last 24 hours. Patient is afebrile. Patient is complaining of dry skin and itching he wants some Benadryl. Reason For Visit: CHF Physical Exam Vital Signs: Temp Pulse Resp BP Pulse Ox 97.7 F 93 20 101/64 100 05/22/18 06:14 05/22/18 06:14 05/22/18 06:14 05/22/18 06:14 05/22/18 06:14 Intake & Output 05/21/18 05/22/18 05/23/18 06:59 06:59 06:59 Intake Total 1375 1575 Output Total 1550 1300 Balance -175 275 General appearance: PRESENT: no acute distress Head exam: PRESENT: atraumatic Eye exam: PRESENT: PERRLA Mouth exam: PRESENT: moist Neck exam: ABSENT: carotid bruit, JVD, lymphadenopathy, thyromegaly Respiratory exam: PRESENT: decreased breath sounds. ABSENT: rhonchi, wheezes Cardiovascular exam: PRESENT: RRR. ABSENT: diastolic murmur, rubs, systolic murmur GI/Abdominal exam: PRESENT: normal bowel sounds, soft. ABSENT: distended, guarding, mass, organolmegaly, rebound, tenderness Extremities exam: PRESENT: full ROM. ABSENT: calf tenderness, clubbing, pedal edema Neurological exam: PRESENT: alert, awake, oriented to person, oriented to place, oriented to time, oriented to situation, CN II-XII grossly intact. ABSENT: motor sensory deficit Psychiatric exam: PRESENT: appropriate affect, normal mood. ABSENT: homicidal ideation, suicidal ideation Results Laboratory Results: 05/21/18 11:14 05/21/18 11:14 05/21/18 05/21/18 11:14 11:14 WBC 4.5 RBC 4.87 Hgb 13.5 Hct 41.8 MCV 86 MCH 27.8 MCHC 32.4 RDW 16.4 H Plt Count 166 Seg Neutrophils % 53.6 Lymphocytes % 21.5 Monocytes % 16.4 H Eosinophils % 7.8 H Basophils % 0.7 Absolute Neutrophils 2.4 Absolute Lymphocytes 1.0 Absolute Monocytes 0.7 Absolute Eosinophils 0.3 Absolute Basophils 0.0 Sodium 139.0 Potassium 5.0 Chloride 92 L Carbon Dioxide 39 H Anion Gap 8 BUN 28 H Creatinine 1.09 Est GFR ( Amer) > 60 Est GFR (Non-Af Amer) > 60 Glucose 146 H Calcium 9.2 Magnesium 1.9 Total Bilirubin 0.6 AST 37 ALT 25 Alkaline Phosphatase 80 Total Protein 6.2 L Albumin 3.9 05/11/18 05/11/18 05/11/18 09:35 09:35 09:35 Creatine Kinase 37 L Troponin I 0.071 NT-Pro-B Natriuret Pep 6800 H 05/11/18 05/11/18 05/12/18 12:30 19:00 01:06 Creatine Kinase Troponin I 0.067 0.064 0.050 NT-Pro-B Natriuret Pep Impressions: Thoracentesis Ultrasound 05/13/18 10:06 IMPRESSION: SUCCESSFUL THORACENTESIS USING ULTRASOUND GUIDANCE. Chest X-Ray 05/17/18 09:40 IMPRESSION: Decrease in the right pleural effusion but with persistent moderate effusion basilar opacities. Persistent prominent left retrocardiac density likely effusion/atelectasis. Assessment & Plan - Diagnosis (1) Acute and chronic respiratory failure with hypoxia Is this a current diagnosis for this admission?: Yes Plan: 05/19/2018 acute on chronic respiratory failure with hypoxia probably secondary to CHF exacerbation. He is on BiPAP for 3-4 hours/day. Plan is to continue the current management. 05/20/2018-patient was admitted for acute on chronic respiratory failure with hypoxia probably secondary to CHF exacerbation. He is using BiPAP 4 hours a day. No acute events in the last 24 hours. Plan is to continue the present management. 05/21/2018-patient is comfortably in the chair on 2 L oxygen via nasal cannula. Acute on chronic respiratory failure resolved with hypoxia resolved. Is awaiting for placement in [facility]. 05/22/2018-pulse ox on 2 L is 100% today. Patient is comfortably in the chair. Only complaint is his complaint of dry skin and itching. [facility] He is using BiPAP 3-4 hours a day. His acute on chronic respiratory failure with hypoxia probably secondary to CHF exacerbation. I am going to recheck his BMP tomorrow. Pt is not in fluid overload today. (2) Acute on chronic systolic (congestive) heart failure Is this a current diagnosis for this admission?: Yes Plan: Combined systolic and diastolic biventricular failure. Continue Lasix 40 mg daily. Cardiology following. Echo shows an EF of 30-35%, grade 2 diastolic dysfunction and dilated left and right ventricular. Patient already has an AICD. Patient is not on UZMA inhibitor hence is not on optimal medical therapy. CHF medication regimen cannot be optimized as patient has had angioedema from captopril before. Both UZMA inhibitors and Entresto will be contraindicated to a history of ACEi-associated angioedema. Discussed with cardio and pulm. Recommendation for BIPAP at home/discharge for his biventricular heart failure and significant pulmonary hypertension. Continue Coreg and Aldactone. 05/16/18: Decreased Lasix to 40 mg IV daily from q12 due to alkalosis. 05/19/2018-patient has history of congestive heart failure. Which is combined systolic diastolic biventricular failure. Patient is on Lasix 40 mg IV twice daily. cardiology on board. EF is 30-35%. Grade 2 diastolic dysfunction and dilated left and right ventricular chambers. Patient has AICD. Patient is not on UZMA inhibitors because of history of angioedema. UZMA inhibitors and Entresto are not contraindicated because of the ACEi associated angioedema. Patient is also on Coreg and Aldactone. [facility]. 05/20/2018-has a combined systolic diastolic biventricular failure. EF is 30- 35%. Echocardiogram shows grade 2 diastolic dysfunction and dilated left and right ventricular chambers. Patient has AICD. Patient is not on UZMA inhibitors because of history of angioedema. Stoped Aldactone today because potassium is 5.1. 05/21/2018-patient has history of congestive heart failure combined systolic diastolic biventricular failure with EF of 30-35%. Patient is allergic to UZMA inhibitors gives angioedema. Latest potassium is 5.1. We are going to check his potassium levels today. Yesterday I stopped his spironolactone and we stopped potassium supplementation. 05/22/2018-his latest potassium is 5.0 potassium supplementation was discontinued spironolactone was discontinued EF is 30-35%. Patient is not in fluid overload I am going to follow the patient regular basis. (3) Pleural effusion Is this a current diagnosis for this admission?: Yes (4) CAD (coronary artery disease) Is this a current diagnosis for this admission?: Yes Plan: 05/19/2018 patient has history of coronary artery disease. No complaints of any chest pains in the last 24-48 hours. Patient is on statins, aspirin, beta- blockers. Plan is to continue the present management. 05/20/2018 patient history of coronary artery disease. No complaints of any chest pains during the hospital stay. 05/21/2018 plan is to continue the current management. 05/14/2018 patient is on statins aspirin and beta-blockers no complaints of chest pain. Plan is to continue the present management. - Time Time Spent with patient: 15-24 minutes Medications reviewed and adjusted accordingly: Yes Anticipated discharge: [facility]
[2018-05-22] MEDS: ALPRAZOLAM 0.25 MG TABLET PO PRN (21:26)
[2018-05-22] MEDS: DIPHENHYDRAMINE HCL 25 MG CAPSULE PO PRN (21:26)
[2018-05-22] MEDS: ROPINIROLE HCL 0.25 MG TABLET PO SCH (21:26)
[2018-05-23] MEDS: GABAPENTIN 100 MG CAPSULE PO SCH ×3 (06:31→21:10)
[2018-05-23] MEDS: ACETAMINOPHEN 325 MG TABLET PO SCH ×4 (06:31→23:58)
[2018-05-23] MEDS: ASPIRIN 81 MG TABLET, CHEWABLE PO SCH (10:50)
[2018-05-23] MEDS: DOCUSATE SODIUM 100 MG CAPSULE PO SCH ×2 (10:50→17:33)
[2018-05-23] MEDS: CARVEDILOL 3.125 MG TABLET PO SCH ×2 (10:50→21:09)
[2018-05-23] MEDS: DIGOXIN 0.125 MG TABLET PO SCH (10:50)
[2018-05-23] MEDS: FUROSEMIDE INJ/PF 40 MG/4 ML SDV IV SCH (10:51)
[2018-05-23] MEDS: ENOXAPARIN SODIUM INJ 30 MG/0.3 ML DISP.SYRIN SUBCUT SCH (10:51)
[2018-05-23] MEDS: OMEGA-3 ACID ETHYL ESTERS 1 GM CAPSULE PO SCH ×2 (10:51→17:33)
[2018-05-23] MEDS: CYCLOSPORINE 0.05% OPH EMULSIO 0.4 ML DROPERETTE OU SCH (10:52)
[2018-05-23] MEDS: POLYVINYL ALCOHOL 1.4% OPH SOLN 15 ML OP SCH ×4 (10:52→21:12)
[2018-05-23 11:01] LABS: ABSOLUTE EOSINOPHILS # (AUTO) 0.5 10^3/uL (0.0-0.6); ABSOLUTE LYMPHOCYTES (AUTO) 1.6 10^3/uL (0.5-4.7); ABSOLUTE MONOCYTES (AUTO) 1.1 10^3/uL (0.1-1.4); ABSOLUTE NEUT (AUTO) 2.6 10^3/uL (1.7-8.2); BASOPHILS % (AUTO) 0.6 % (0-2); HEMATOCRIT 41.3 % (37.9-51.0); HEMOGLOBIN 13.6 g/dL (13.5-17.0); LYMPHOCYTES % (AUTO) 27.6 % (13-45); MEAN CORPUSCULAR VOLUME 85 fl (80-97); MONOCYTES % (AUTO) 18.5 % (3-13); PLATELET COUNT 169 10^3/uL (150-450); RED BLOOD COUNT 4.87 10^6/uL (4.35-5.55); RED CELL DISTRIBUTION WIDTH 16.3 % (11.5-14.0); SEGMENTED NEUTROPHILS % (AUTO) 45.3 % (42-78); TOTAL CELLS COUNTED % (AUTO) 100 %; WHITE BLOOD COUNT 5.7 10^3/uL (4.0-10.5)
[2018-05-23 11:16] LABS: ALANINE AMINOTRANSFERASE 28 U/L (21-72); ALBUMIN 4.2 g/dL (3.5-5.0); ALKALINE PHOSPHATASE 99 U/L (38-126); ANION GAP 9 (5-19); ASPARTATE AMINO TRANSFERASE 49 U/L (17-59); BILIRUBIN,DIRECT 0.3 mg/dL (0.0-0.4); BILIRUBIN,TOTAL 0.6 mg/dL (0.2-1.3); BLOOD UREA NITROGEN 37 mg/dL (7-20); CALCIUM 9.5 mg/dL (8.4-10.2); CARBON DIOXIDE 36 mmol/L (22-30); CHLORIDE 96 mmol/L (98-107); GLUCOSE 89 mg/dL (75-110); SODIUM 140.6 mmol/L (137-145); TOTAL PROTEIN 7.2 g/dL (6.3-8.2)
--- NOTE | 2018-05-23 12:52 | PDOC PROGRESS REPORT ---
Subjective Progress Note for:: 05/23/18 Subjective:: This is a 62-year-old male with a past medical history of CAD, prior CABG, COPD, diet-controlled DM, chronic systolic heart failure from ischemic cardiomyopathy with prior AICD placement, chronic respiratory failure on home O2, history of CVA with residual partial expressive aphasia who initially presented with increasing shortness of breath and leg swelling. Patient was admitted for CHF exacerbation. Patient has partial expressive aphasia (has some residual slurring and pauses) but is coherent and is able to converse with provider. He says his SOB is at baseline but he becomes short of breath when lying supine. He has been having persistent orthopnea. 05/13: Discussed in length again this morning with caregiver (Nuria) and patient. We discussed the need for thoracentesis again this morning including the indication due to his persistent orthopnea and significant bilateral pleural effusion. Also discussed the small risk of pneumothorax. Patient did agree undergo thoracentesis as he has been having patient orthopnea. Patient is oriented to person, place and situation. Also discussed with brand planner on bedside about possible option to be transferred to a [facility] in [place] as patient is a his history of placement and disposition. He does not want to be transferred at this time and would prefer to stay here. 05/14: Patient does appear to have into capacity to make his own medical decisions. Patient was also evaluated by psych who deemed the same. Discussed in length again today about plan and disposition. Patient says he does not want to go to a alf or rehab. He also does not want to talk about his CODE STATUS and says that he will "sort it out" later. Offered palliative care consult and he is receptive to it but not hospice. He says his breathing has improved after the thoracentesis. Rotating Equipment Specialist recommended BiPAP at home. Patient is resistant on using BiPAP at home but agrees to try it here while inpatient and see if he tolerates it. 05/15: Upon encounter this morning, patient was sleeping on the recliner. Patient says that his house is not fixed yet. He says he does not want to go to any of the surrounding SNF/rehab facilities at this time but is agreeable to being transferred to the [facility] in [place]. Convinced on trying the BiPAP and he says he will try wearing it. 05/16: No acute event overnight. Patient has complied with BIPAP. He says his breathing has slightly improved but still has orthopnea. Denies chest pain or dizziness. 05/17: Patient says his breathing has improved and he feels better today. He says he can use the BIPAP for 2 hrs but is willing to try to extend it to 3-4 hrs today. 05/18: Patient only used BIPAP for 1.5 hrs last night. Upon encounter, he does say that he breathes and feels better when on BIPAP. He was advised on increa sing his BIPAP use again today. He denies worsening SOB or chest pain. Still awaiting for update on transfer to [facility] in [facility]. 05/19/2018-no acute events in the last 24 hours as per the patient he is using BiPAP 3-4 hours a day. He is comfortably in the chair on oxygen via nasal tom kurt. Denies any problems. Waiting for placement in [facility]. 05/20/2018-no acute events in the last 24 hours. Patient is on oxygen via nasal cannula walking in the room. Denies any complaints. Using BiPAP 4 hours a day. Patient is waiting for placement at [facility]. 05/21/2018 no acute events in the last 24 hours. Patient is complaining of pain in both arms. I am going to put him on Percocet 09/25/2024 every 8 as needed for pain. Patient is on 2 L nasal cannula pulse ox is 96%. He is using BiPAP 4 hours a day. 05/22/2018-no acute events over the last 24 hours. Patient is afebrile. Patient is complaining of dry skin and itching he wants some Benadryl. 05/23/2018 no acute events in the last 24 hours. His BiPAP requirements are decreased. Patient is afebrile. His pulse ox is 99% on 2 L. Notably sitting in the bed communicating okay. Reason For Visit: CHF Physical Exam Vital Signs: Temp Pulse Resp BP Pulse Ox 97.4 F 103 H 24 H 112/68 100 05/23/18 10:46 05/23/18 10:46 05/23/18 10:46 05/23/18 10:46 05/23/18 10:46 Intake & Output 05/22/18 05/23/18 05/24/18 06:59 06:59 06:59 Intake Total 1575 1340 Output Total 1300 710 Balance 275 630 Weight 83.5 kg General appearance: PRESENT: no acute distress Head exam: PRESENT: atraumatic Eye exam: PRESENT: PERRLA Mouth exam: PRESENT: moist Neck exam: ABSENT: carotid bruit, JVD, lymphadenopathy, thyromegaly Respiratory exam: PRESENT: decreased breath sounds Cardiovascular exam: PRESENT: RRR. ABSENT: diastolic murmur, rubs, systolic murmur GI/Abdominal exam: PRESENT: normal bowel sounds, soft. ABSENT: distended, guarding, mass, organolmegaly, rebound, tenderness Extremities exam: PRESENT: full ROM. ABSENT: calf tenderness, clubbing, pedal edema Neurological exam: PRESENT: alert, awake, oriented to person, oriented to place, oriented to time, oriented to situation, CN II-XII grossly intact. ABSENT: motor sensory deficit Psychiatric exam: PRESENT: appropriate affect, normal mood. ABSENT: homicidal ideation, suicidal ideation Results Laboratory Results: 05/23/18 10:36 05/23/18 10:36 05/23/18 05/23/18 10:36 10:36 WBC 5.7 RBC 4.87 Hgb 13.6 Hct 41.3 MCV 85 MCH 28.0 MCHC 33.0 RDW 16.3 H Plt Count 169 Seg Neutrophils % 45.3 Lymphocytes % 27.6 Monocytes % 18.5 H Eosinophils % 8.0 H Basophils % 0.6 Absolute Neutrophils 2.6 Absolute Lymphocytes 1.6 Absolute Monocytes 1.1 Absolute Eosinophils 0.5 Absolute Basophils 0.0 Sodium 140.6 Potassium 5.0 Chloride 96 L Carbon Dioxide 36 H Anion Gap 9 BUN 37 H Creatinine 1.19 Est GFR ( Amer) > 60 Est GFR (Non-Af Amer) > 60 Glucose 89 Calcium 9.5 Magnesium 2.1 Total Bilirubin 0.6 AST 49 ALT 28 Alkaline Phosphatase 99 Total Protein 7.2 Albumin 4.2 05/11/18 05/11/18 05/11/18 09:35 09:35 09:35 Creatine Kinase 37 L Troponin I 0.071 NT-Pro-B Natriuret Pep 6800 H 05/11/18 05/11/18 05/12/18 12:30 19:00 01:06 Creatine Kinase Troponin I 0.067 0.064 0.050 NT-Pro-B Natriuret Pep 05/23/18 10:36 Creatine Kinase Troponin I NT-Pro-B Natriuret Pep 819 Impressions: Thoracentesis Ultrasound 05/13/18 10:06 IMPRESSION: SUCCESSFUL THORACENTESIS USING ULTRASOUND GUIDANCE. Chest X-Ray 05/17/18 09:40 IMPRESSION: Decrease in the right pleural effusion but with persistent moderate effusion basilar opacities. Persistent prominent left retrocardiac density likely effusion/atelectasis. Assessment & Plan - Diagnosis (1) Acute and chronic respiratory failure with hypoxia Is this a current diagnosis for this admission?: Yes Plan: 05/19/2018 acute on chronic respiratory failure with hypoxia probably secondary to CHF exacerbation. He is on BiPAP for 3-4 hours/day. Plan is to continue the current management. 05/20/2018-patient was admitted for acute on chronic respiratory failure with hypoxia probably secondary to CHF exacerbation. He is using BiPAP 4 hours a day. No acute events in the last 24 hours. Plan is to continue the present management. 05/21/2018-patient is comfortably in the chair on 2 L oxygen via nasal cannula. Acute on chronic respiratory failure resolved with hypoxia resolved. Is awaiting for placement in [facility]. 05/22/2018-pulse ox on 2 L is 100% today. Patient is comfortably in the chair. Only complaint is his complaint of dry skin and itching. [facility] He is using BiPAP 3-4 hours a day. His acute on chronic respiratory failure with hypoxia probably secondary to CHF exacerbation. I am going to recheck his BMP tomorrow. Pt is not in fluid overload today. 05/23/2018 pulse ox on 2 L is 99% patient is able to walk in the hallway on 2 L oxygen without any problems. He did not have need to use the BiPAP in the last 24 hours. He has been BNP is around 820. no Signs of any fluid overload. Plan is to continue the present management. (2) Acute on chronic systolic (congestive) heart failure Is this a current diagnosis for this admission?: Yes Plan: Combined systolic and diastolic biventricular failure. Continue Lasix 40 mg daily. Cardiology following. Echo shows an EF of 30-35%, grade 2 diastolic dys function and dilated left and right ventricular. Patient already has an AICD. Patient is not on UZMA inhibitor hence is not on optimal medical therapy. CHF medication regimen cannot be optimized as patient has had angioedema from captopril before. Both UZMA inhibitors and Entresto will be contraindicated to a history of ACEi-associated angioedema. Discussed with cardio and pulm. Recommendation for BIPAP at home/discharge for his biventricular heart failure and significant pulmonary hypertension. Continue Coreg and Aldactone. 05/16/18: Decreased Lasix to 40 mg IV daily from q12 due to alkalosis. 05/19/2018-patient has history of congestive heart failure. Which is combined systolic diastolic biventricular failure. Patient is on Lasix 40 mg IV twice daily. cardiology on board. EF is 30-35%. Grade 2 diastolic dysfunction and dilated left and right ventricular chambers. Patient has AICD. Patient is not on UZMA inhibitors because of history of angioedema. UZMA inhibitors and Entresto are not contraindicated because of the ACEi associated angioedema. Patient is also on Coreg and Aldactone. And [facility]. 05/20/2018-has a combined systolic diastolic biventricular failure. EF is 30- 35%. Echocardiogram shows grade 2 diastolic dysfunction and dilated left and right ventricular chambers. Patient has AICD. Patient is not on UZMA inhibitors because of history of angioedema. Stoped Aldactone today because potassium is 5.1. 05/21/2018-patient has history of congestive heart failure combined systolic diastolic biventricular failure with EF of 30-35%. Patient is allergic to UZMA inhibitors gives angioedema. Latest potassium is 5.1. We are going to check his potassium levels today. Yesterday I stopped his spironolactone and we stopped potassium supplementation. 05/22/2018-his latest potassium is 5.0 potassium supplementation was discont inued spironolactone was discontinued, has EF is 30-35%. Patient is not in fluid overload I am going to follow the patient regular basis. 05/23/2018-potassium level is 5.0 stable patient ejection fraction is 30-3045%. Patient has combined systolic diastolic biventricular heart failure. He has AICD. And is to continue the present management. (3) Pleural effusion Is this a current diagnosis for this admission?: Yes Plan: 05/19/2018-patient came in with a right-sided pleural effusion status post thoracentesis on 05/13/2018 with removal of 750 cc of fluid. Fluid analysis consistent with transudate. Which is likely secondary to CHF. Negative for infection. 05/20/2018-patient came in with right pleural effusion status post thoracentesis on 05/13/2018. The cultures are negative. 05/21/2018 status post thoracentesis of right pleural effusion 750 cc of fluid was removed. cultures Negative. 05/23/2018 during this hospital stay he had a right-sided thoracentesis. And 750 cc of fluid was removed. I am going to redo the chest x-ray today. (4) CAD (coronary artery disease) Is this a current diagnosis for this admission?: Yes Plan: 05/19/2018 patient has history of coronary artery disease. No complaints of any chest pains in the last 24-48 hours. Patient is on statins, aspirin, beta- blockers. Plan is to continue the present management. 05/20/2018 patient history of coronary artery disease. No complaints of any chest pains during the hospital stay. 05/21/2018 plan is to continue the current management. 05/22/2018 patient is on statins aspirin and beta-blockers no complaints of chest pain. Plan is to continue the present management. 05/23/2018-plan is to continue the present management patient is asymptomatic. - Time Time Spent with patient: 15-24 minutes Medications reviewed and adjusted accordingly: Yes Anticipated discharge: SNF
[2018-05-23] MEDS ORDERED: GABAPENTIN 100 MG CAPSULE PO ONE (17:00)
--- NOTE | 2018-05-23 20:54 | PDOC PROGRESS REPORT ---
Subjective Progress Note for:: 05/23/18 Subjective:: ALEX Guadarrama KNIGHT is a 62 year old male who has coronary artery disease and COPD. Patient patient has history of CABG, ischemic cardiomyopathy status post AICD, chronic respiratory failure on home oxygen, prior stroke with residual aphasia. Patient medications were reviewed. Patient was in the morning just to see if he was tolerating non-invasive ventilation therapy at night. On talking to him it became clear that he was actually using it and benefiting from it. He claims to be feeling much better overall. Patient lab was reviewed. His potassium noted to be still high. His blood- pressure is on the low side. At this point, since patient has captopril mentio jessica that allergy with unknown reaction, patient also having hyperkalaemia, do not feel patient will be able to tolerate either spironolactone or entresto. Feel that patient could be tried on very small dose of hydralazine at 10 mg PO three times a day and also isosorbide mononitrate 30 mg PO daily to see he feel tolerate this combination. Patient and follow-up with me as an outpatient on discharge. . Reason For Visit: CHF Physical Exam Vital Signs: Temp Pulse Resp BP Pulse Ox 97.4 F 86 20 111/63 99 05/23/18 16:01 05/23/18 16:01 05/23/18 16:01 05/23/18 16:01 05/23/18 16:01 Intake & Output 05/22/18 05/23/18 05/24/18 06:59 06:59 06:59 Intake Total 1575 1340 591 Output Total 1300 710 400 Balance 275 630 191 Weight 83.5 kg 83.5 kg Exam: GEN: NAD, patient alert oriented x3. Appearance and grooming WNL HEENT : Eyes: JOHNATHON, Ears: No significant abnormalities, Nose: No significant abnormalities. normocephalic atraumatic. Flat midface (-), Receding chin (-) ORAL : Mallampati class IV, narrow arched palate (-) Tonsils: Not enlarged. NECK: no thyromegaly, no masses, trachea is central, JVD is not elevated, carotids 2+ with bruit (-) RESP: lungs clear, no rales, wheezes or rhonchi, nonlabored, accessory muscles of respiration use (-). CV: NL S1 and S2. No significant murmurs noted, no gallop, no extra sounds, no clicks, no rub noted. GI: abd NT to palpation, no masses, bowel sounds present, no guarding or rigidity noted. EXT: no clubbing, (-) cyanosis, edema (1+), perpheral pulses diminished (no) MUSC/SKEL: no acute joint swelling noted. Muscle strength is generally intact. NEURO: no significant focal neurological deficits are note, sensation grossly intact, AO x 3 PSYCH: NL mood and affect. SKIN: (-) rash, (-)Signs of pruritus, (-) other significant abnormality Results Laboratory Results: 05/23/18 10:36 05/23/18 10:36 05/23/18 05/23/18 10:36 10:36 WBC 5.7 RBC 4.87 Hgb 13.6 Hct 41.3 MCV 85 MCH 28.0 MCHC 33.0 RDW 16.3 H Plt Count 169 Seg Neutrophils % 45.3 Lymphocytes % 27.6 Monocytes % 18.5 H Eosinophils % 8.0 H Basophils % 0.6 Absolute Neutrophils 2.6 Absolute Lymphocytes 1.6 Absolute Monocytes 1.1 Absolute Eosinophils 0.5 Absolute Basophils 0.0 Sodium 140.6 Potassium 5.0 Chloride 96 L Carbon Dioxide 36 H Anion Gap 9 BUN 37 H Creatinine 1.19 Est GFR ( Amer) > 60 Est GFR (Non-Af Amer) > 60 Glucose 89 Calcium 9.5 Magnesium 2.1 Total Bilirubin 0.6 AST 49 ALT 28 Alkaline Phosphatase 99 Total Protein 7.2 Albumin 4.2 05/11/18 05/11/18 05/11/18 09:35 09:35 09:35 Creatine Kinase 37 L Troponin I 0.071 NT-Pro-B Natriuret Pep 6800 H 05/11/18 05/11/18 05/12/18 12:30 19:00 01:06 Creatine Kinase Troponin I 0.067 0.064 0.050 NT-Pro-B Natriuret Pep 05/23/18 10:36 Creatine Kinase Troponin I NT-Pro-B Natriuret Pep 819 Impressions: Thoracentesis Ultrasound 05/13/18 10:06 IMPRESSION: SUCCESSFUL THORACENTESIS USING ULTRASOUND GUIDANCE. Chest X-Ray 05/17/18 09:40 IMPRESSION: Decrease in the right pleural effusion but with persistent moderate effusion basilar opacities. Persistent prominent left retrocardiac density likely effusion/atelectasis. Assessment & Plan - Diagnosis (1) Acute and chronic respiratory failure with hypoxia Is this a current diagnosis for this admission?: Yes (2) Acute on chronic systolic (congestive) heart failure Is this a current diagnosis for this admission?: Yes (3) Pleural effusion Is this a current diagnosis for this admission?: Yes (4) Atrial fibrillation Qualifiers: Atrial fibrillation type: paroxysmal Qualified Code(s): I48.0 - Paroxysmal atrial fibrillation Is this a current diagnosis for this admission?: Yes (5) Coronary artery disease Qualifiers: Coronary Disease-Associated Artery/Lesion type: unspecified vessel or lesion type [place] vs. transplanted heart: [place] heart Associated angina: angina presence unspecified Qualified Code(s): I25.10 - Atherosclerotic heart disease of [place] coronary artery without angina pectoris Is this a current diagnosis for this admission?: Yes (6) History of CVA (cerebrovascular accident) Is this a current diagnosis for this admission?: Yes - Notes Notes: Patient generally improved since my last evaluation. Continue with nightly non- invasive ventilation therapy. Consider starting low dose hydralazine nitrate combination. Overall care plan discussed in HPI. - Time Time with patient: 15-25 minutes Medications reviewed and adjusted accordingly: Yes
[2018-05-23] MEDS: ROPINIROLE HCL 0.25 MG TABLET PO SCH (21:10)
[2018-05-24] MEDS: ASPIRIN 81 MG TABLET, CHEWABLE PO SCH (09:30)
[2018-05-24] MEDS: OMEGA-3 ACID ETHYL ESTERS 1 GM CAPSULE PO SCH ×2 (09:30→17:24)
[2018-05-24] MEDS: GABAPENTIN 100 MG CAPSULE PO SCH ×3 (09:31→21:11)
[2018-05-24] MEDS: ACETAMINOPHEN 325 MG TABLET PO SCH ×4 (09:31→19:50)
[2018-05-24] MEDS: DOCUSATE SODIUM 100 MG CAPSULE PO SCH ×2 (09:31→17:25)
[2018-05-24] MEDS: FUROSEMIDE INJ/PF 40 MG/4 ML SDV IV SCH (09:32)
[2018-05-24] MEDS: DIGOXIN 0.125 MG TABLET PO SCH (09:34)
[2018-05-24] MEDS: CARVEDILOL 3.125 MG TABLET PO SCH ×2 (09:35→21:11)
[2018-05-24] MEDS: ENOXAPARIN SODIUM INJ 30 MG/0.3 ML DISP.SYRIN SUBCUT SCH (09:35)
[2018-05-24] MEDS: POLYVINYL ALCOHOL 1.4% OPH SOLN 15 ML OP SCH ×4 (09:36→21:10)
[2018-05-24 10:04] LABS: ABSOLUTE EOSINOPHILS # (AUTO) 0.4 10^3/uL (0.0-0.6); ABSOLUTE LYMPHOCYTES (AUTO) 1.2 10^3/uL (0.5-4.7); ABSOLUTE MONOCYTES (AUTO) 0.8 10^3/uL (0.1-1.4); BASOPHILS % (AUTO) 0.7 % (0-2); EOSINOPHILS % (AUTO) 7.7 % (0-6); HEMATOCRIT 40.1 % (37.9-51.0); HEMOGLOBIN 13.2 g/dL (13.5-17.0); LYMPHOCYTES % (AUTO) 22.3 % (13-45); MEAN CORPUSCULAR VOLUME 85 fl (80-97); MONOCYTES % (AUTO) 14.7 % (3-13); PLATELET COUNT 160 10^3/uL (150-450); RED BLOOD COUNT 4.72 10^6/uL (4.35-5.55); RED CELL DISTRIBUTION WIDTH 16.2 % (11.5-14.0); SEGMENTED NEUTROPHILS % (AUTO) 54.6 % (42-78); TOTAL CELLS COUNTED % (AUTO) 100 %; WHITE BLOOD COUNT 5.5 10^3/uL (4.0-10.5)
[2018-05-24] MEDS: CYCLOSPORINE 0.05% OPH EMULSIO 0.4 ML DROPERETTE OU SCH (10:21)
[2018-05-24 10:28] LABS: ALANINE AMINOTRANSFERASE 24 U/L (21-72); ALBUMIN 4.1 g/dL (3.5-5.0); ALKALINE PHOSPHATASE 92 U/L (38-126); ANION GAP 9 (5-19); ASPARTATE AMINO TRANSFERASE 43 U/L (17-59); BILIRUBIN,DIRECT 0.3 mg/dL (0.0-0.4); BILIRUBIN,TOTAL 0.6 mg/dL (0.2-1.3); BLOOD UREA NITROGEN 38 mg/dL (7-20); CALCIUM 9.4 mg/dL (8.4-10.2); CARBON DIOXIDE 34 mmol/L (22-30); CHLORIDE 97 mmol/L (98-107); GLUCOSE 180 mg/dL (75-110); SODIUM 139.9 mmol/L (137-145); TOTAL PROTEIN 7.1 g/dL (6.3-8.2)
--- NOTE | 2018-05-24 12:30 | PDOC PROGRESS REPORT ---
Subjective Progress Note for:: 05/24/18 Subjective:: This is a 62-year-old male with a past medical history of CAD, prior CABG, COPD, diet-controlled DM, chronic systolic heart failure from ischemic cardiomyopathy with prior AICD placement, chronic respiratory failure on home O2, history of CVA with residual partial expressive aphasia who initially presented with increasing shortness of breath and leg swelling. Patient was admitted for CHF exacerbation. Patient has partial expressive aphasia (has some residual slurring and pauses) but is coherent and is able to converse with provider. He says his SOB is at baseline but he becomes short of breath when lying supine. He has been having persistent orthopnea. 05/13: Discussed in length again this morning with caregiver (Nuria) and patient. We discussed the need for thoracentesis again this morning including the indication due to his persistent orthopnea and significant bilateral pleural effusion. Also discussed the small risk of pneumothorax. Patient did agree undergo thoracentesis as he has been having patient orthopnea. Patient is oriented to person, place and situation. Also discussed with systems requirements planner on bedside about possible option to be transferred to a [facility] in [place] as patient is a his history of placement and disposition. He does not want to be transferred at this time and would prefer to stay here. 05/14: Patient does appear to have into capacity to make his own medical decisions. Patient was also evaluated by psych who deemed the same. Discussed in length again today about plan and disposition. Patient says he does not want to go to a fci or rehab. He also does not want to talk about his CODE STATUS and says that he will "sort it out" later. Offered palliative care consult and he is receptive to it but not hospice. He says his breathing has improved after the thoracentesis. Reservations Clerk recommended BiPAP at home. Patient is resistant on using BiPAP at home but agrees to try it here while inpatient and see if he tolerates it. 05/15: Upon encounter this morning, patient was sleeping on the recliner. Patient says that his house is not fixed yet. He says he does not want to go to any of the surrounding SNF/rehab facilities at this time but is agreeable to being transferred to the [facility] in [place]. Convinced on trying the BiPAP and he says he will try wearing it. 05/16: No acute event overnight. Patient has complied with BIPAP. He says his breathing has slightly improved but still has orthopnea. Denies chest pain or dizziness. 05/17: Patient says his breathing has improved and he feels better today. He says he can use the BIPAP for 2 hrs but is willing to try to extend it to 3-4 hrs today. 05/18: Patient only used BIPAP for 1.5 hrs last night. Upon encounter, he does say that he breathes and feels better when on BIPAP. He was advised on increa sing his BIPAP use again today. He denies worsening SOB or chest pain. Still awaiting for update on transfer to [facility] in [facility]. 05/19/2018-no acute events in the last 24 hours as per the patient he is using BiPAP 3-4 hours a day. He is comfortably in the chair on oxygen via nasal tom kurt. Denies any problems. Waiting for placement in [facility]. 05/20/2018-no acute events in the last 24 hours. Patient is on oxygen via nasal cannula walking in the room. Denies any complaints. Using BiPAP 4 hours a day. Patient is waiting for placement at [facility]. 05/21/2018 no acute events in the last 24 hours. Patient is complaining of pain in both arms. I am going to put him on Percocet 09/25/2024 every 8 as needed for pain. Patient is on 2 L nasal cannula pulse ox is 96%. He is using BiPAP 4 hours a day. 05/22/2018-no acute events over the last 24 hours. Patient is afebrile. Patient is complaining of dry skin and itching he wants some Benadryl. 05/23/2018 no acute events in the last 24 hours. His BiPAP requirements are decreased. Patient is afebrile. His pulse ox is 99% on 2 L. Notably sitting in the bed communicating okay. 05/24/2018 -no acute events in the last 24 hours. Patient pulse oxes 99% on 2 L. Is comfortably sleeping in his chair. Denies any complaints. Reason For Visit: CHF Physical Exam Vital Signs: Temp Pulse Resp BP Pulse Ox 97.9 F 99 18 101/64 100 05/24/18 11:04 05/24/18 11:04 05/24/18 11:04 05/24/18 11:04 05/24/18 11:04 Intake & Output 05/23/18 05/24/18 05/25/18 06:59 06:59 06:59 Intake Total 1340 1071 Output Total 710 850 Balance 630 221 Weight 83.5 kg 80.9 kg General appearance: PRESENT: no acute distress Eye exam: PRESENT: PERRLA Mouth exam: PRESENT: moist Neck exam: ABSENT: carotid bruit, JVD, lymphadenopathy, thyromegaly Respiratory exam: PRESENT: decreased breath sounds Cardiovascular exam: PRESENT: RRR. ABSENT: diastolic murmur, rubs, systolic murmur GI/Abdominal exam: PRESENT: normal bowel sounds, soft. ABSENT: distended, guarding, mass, organolmegaly, rebound, tenderness Neurological exam: PRESENT: alert, awake, oriented to person, oriented to place, oriented to time, oriented to situation, CN II-XII grossly intact. ABSENT: motor sensory deficit Psychiatric exam: PRESENT: appropriate affect, normal mood. ABSENT: homicidal ideation, suicidal ideation Results Laboratory Results: 05/24/18 09:38 05/24/18 09:38 05/24/18 05/24/18 09:38 09:38 WBC 5.5 RBC 4.72 Hgb 13.2 L Hct 40.1 MCV 85 MCH 28.0 MCHC 33.0 RDW 16.2 H Plt Count 160 Seg Neutrophils % 54.6 Lymphocytes % 22.3 Monocytes % 14.7 H Eosinophils % 7.7 H Basophils % 0.7 Absolute Neutrophils 3.0 Absolute Lymphocytes 1.2 Absolute Monocytes 0.8 Absolute Eosinophils 0.4 Absolute Basophils 0.0 Sodium 139.9 Potassium 5.0 Chloride 97 L Carbon Dioxide 34 H Anion Gap 9 BUN 38 H Creatinine 1.19 Est GFR ( Amer) > 60 Est GFR (Non-Af Amer) > 60 Glucose 180 H Calcium 9.4 Magnesium 2.0 Total Bilirubin 0.6 AST 43 ALT 24 Alkaline Phosphatase 92 Total Protein 7.1 Albumin 4.1 05/11/18 05/11/18 05/11/18 09:35 09:35 09:35 Creatine Kinase 37 L Troponin I 0.071 NT-Pro-B Natriuret Pep 6800 H 05/11/18 05/11/1805/12/18 12:30 19:00 01:06 Creatine Kinase Troponin I 0.067 0.064 0.050 NT-Pro-B Natriuret Pep 05/23/18 05/24/18 10:36 09:38 Creatine Kinase Troponin I NT-Pro-B Natriuret Pep 819 889 Impressions: Thoracentesis Ultrasound 05/13/18 10:06 IMPRESSION: SUCCESSFUL THORACENTESIS USING ULTRASOUND GUIDANCE. Chest X-Ray 05/17/18 09:40 IMPRESSION: Decrease in the right pleural effusion but with persistent moderate effusion basilar opacities. Persistent prominent left retrocardiac density likely effusion/atelectasis. Assessment & Plan - Diagnosis (1) Acute and chronic respiratory failure with hypoxia Is this a current diagnosis for this admission?: Yes Plan: 05/19/2018 acute on chronic respiratory failure with hypoxia probably secondary to CHF exacerbation. He is on BiPAP for 3-4 hours/day. Plan is to continue the current management. 05/20/2018-patient was admitted for acute on chronic respiratory failure with hypoxia probably secondary to CHF exacerbation. He is using BiPAP 4 hours a day. No acute events in the last 24 hours. Plan is to continue the present management. 05/21/2018-patient is comfortably in the chair on 2 L oxygen via nasal cannula. Acute on chronic respiratory failure resolved with hypoxia resolved. Is awaiting for placement in [facility]. 05/22/2018-pulse ox on 2 L is 100% today. Patient is comfortably in the chair. Only complaint is his complaint of dry skin and itching. [facility] He is using BiPAP 3-4 hours a day. His acute on chronic respiratory failure with hypoxia probably secondary to CHF exacerbation. I am going to recheck his BMP tomorrow. Pt is not in fluid overload today. 05/23/2018 pulse ox on 2 L is 99% patient is able to walk in the hallway on 2 L oxygen without any problems. He did not have need to use the BiPAP in the last 24 hours. He has been BNP is around 820. no Signs of any fluid overload. Plan is to continue the present management. 05/24/2018 patient was admitted for acute on chronic respiratory failure with hypoxia hypoxia resolved. Patient is not on BiPAP anymore. Pulse ox is pulse ox is 91% on 2 L. [facility]. (2) Acute on chronic systolic (congestive) heart failure Is this a current diagnosis for this admission?: Yes Plan: Combined systolic and diastolic biventricular failure. Continue Lasix 40 mg daily. Cardiology following. Echo shows an EF of 30-35%, grade 2 diastolic dysfunction and dilated left and right ventricular. Patient already has an AICD. Patient is not on UZMA inhibitor hence is not on optimal medical therapy. CHF medication regimen cannot be optimized as patient has had angioedema from captopril before. Both UZMA inhibitors and Entresto will be contraindicated to a history of ACEi-associated angioedema. Discussed with cardio and pulm. Recommendation for BIPAP at home/discharge for his biventricular heart failure and significant pulmonary hypertension. Continue Coreg and Aldactone. 05/16/18: Decreased Lasix to 40 mg IV daily from q12 due to alkalosis. 05/19/2018-patient has history of congestive heart failure. Which is combined systolic diastolic biventricular failure. Patient is on Lasix 40 mg IV twice daily. cardiology on board. EF is 30-35%. Grade 2 diastolic dysfunction and dilated left and right ventricular chambers. Patient has AICD. Patient is not on UZMA inhibitors because of history of angioedema. UZMA inhibitors and Entresto are not contraindicated because of the ACEi associated angioedema. Patient is also on Coreg and Aldactone. And [facility]. 05/20/2018-has a combined systolic diastolic biventricular failure. EF is 30- 35%. Echocardiogram shows grade 2 diastolic dysfunction and dilated left and right ventricular chambers. Patient has AICD. Patient is not on UZMA inhibitors because of history of angioedema. Stoped Aldactone today because potassium is 5.1. 05/21/2018-patient has history of congestive heart failure combined systolic diastolic biventricular failure with EF of 30-35%. Patient is allergic to UZMA inhibitors gives angioedema. Latest potassium is 5.1. We are going to check his potassium levels today. Yesterday I stopped his spironolactone and we stopped potassium supplementation. 05/22/2018-his latest potassium is 5.0 potassium supplementation was discontinued spironolactone was discontinued, has EF is 30-35%. Patient is not in fluid overload I am going to follow the patient regular basis. 05/23/2018-potassium level is 5.0 stable patient ejection fraction is 30-45%. Patient has combined systolic diastolic biventricular heart failure. He has AICD. And is to continue the present management. 05/24/2018-patient's has a biventricular systolic and diastolic heart failure with EF of 35-40%. Patient has AICD. He is on Lasix 40 IV daily I am going to switch her to 40 mg p.o. daily. (3) Pleural effusion Is this a current diagnosis for this admission?: Yes (4) CAD (coronary artery disease) Is this a current diagnosis for this admission?: Yes Plan: 05/19/2018 patient has history of coronary artery disease. No complaints of any chest pains in the last 24-48 hours. Patient is on statins, aspirin, beta- blockers. Plan is to continue the present management. 05/20/2018 patient history of coronary artery disease. No complaints of any chest pains during the hospital stay. 05/21/2018 plan is to continue the current management. 05/22/2018 patient is on statins aspirin and beta-blockers no complaints of chest pain. Plan is to continue the present management. 05/23/2018-plan is to continue the present management patient is asymptomatic. 09/22/2017-patient has history of coronary artery disease, no complaints of chest pain during the hospital stay. - Time Time Spent with patient: 15-24 minutes Medications reviewed and adjusted accordingly: Yes Anticipated discharge: SNF
[2018-05-24] MEDS: ROPINIROLE HCL 0.25 MG TABLET PO SCH (21:11)
[2018-05-25] MEDS: ACETAMINOPHEN 325 MG TABLET PO SCH ×5 (00:01→23:14)
[2018-05-25] MEDS: OXYCODONE-ACETAMINOPHEN 5-325 MG TABLET PO PRN ×2 (00:34→23:28)
[2018-05-25] MEDS ORDERED: GABAPENTIN 100 MG CAPSULE PO ONE (03:00)
[2018-05-25] MEDS: GABAPENTIN 100 MG CAPSULE PO SCH ×3 (05:58→22:20)
[2018-05-25 08:54] LABS: ABSOLUTE EOSINOPHILS # (AUTO) 0.4 10^3/uL (0.0-0.6); ABSOLUTE LYMPHOCYTES (AUTO) 1.3 10^3/uL (0.5-4.7); ABSOLUTE MONOCYTES (AUTO) 0.9 10^3/uL (0.1-1.4); ABSOLUTE NEUT (AUTO) 2.3 10^3/uL (1.7-8.2); BASOPHILS % (AUTO) 0.7 % (0-2); EOSINOPHILS % (AUTO) 7.6 % (0-6); HEMATOCRIT 38.7 % (37.9-51.0); HEMOGLOBIN 12.7 g/dL (13.5-17.0); LYMPHOCYTES % (AUTO) 26.2 % (13-45); MEAN CORPUSCULAR HEMOGLOBIN 27.7 pg (27.0-33.4); MEAN CORPUSCULAR HGB CONC 32.8 g/dL (32.0-36.0); MEAN CORPUSCULAR VOLUME 85 fl (80-97); MONOCYTES % (AUTO) 17.5 % (3-13); PLATELET COUNT 159 10^3/uL (150-450); RED BLOOD COUNT 4.58 10^6/uL (4.35-5.55); RED CELL DISTRIBUTION WIDTH 16.5 % (11.5-14.0); TOTAL CELLS COUNTED % (AUTO) 100 %; WHITE BLOOD COUNT 4.9 10^3/uL (4.0-10.5)
[2018-05-25 09:16] LABS: ALANINE AMINOTRANSFERASE 28 U/L (21-72); ALBUMIN 3.8 g/dL (3.5-5.0); ALKALINE PHOSPHATASE 94 U/L (38-126); ANION GAP 9 (5-19); ASPARTATE AMINO TRANSFERASE 41 U/L (17-59); BILIRUBIN,DIRECT 0.2 mg/dL (0.0-0.4); BILIRUBIN,TOTAL 0.5 mg/dL (0.2-1.3); BLOOD UREA NITROGEN 36 mg/dL (7-20); CALCIUM 9.5 mg/dL (8.4-10.2); CARBON DIOXIDE 35 mmol/L (22-30); CHLORIDE 95 mmol/L (98-107); GLUCOSE 109 mg/dL (75-110); POTASSIUM 4.8 mmol/L (3.6-5.0); SODIUM 138.6 mmol/L (137-145); TOTAL PROTEIN 6.2 g/dL (6.3-8.2)
[2018-05-25] MEDS: DOCUSATE SODIUM 100 MG CAPSULE PO SCH ×2 (10:16→20:09)
[2018-05-25] MEDS: DIGOXIN 0.125 MG TABLET PO SCH (10:16)
[2018-05-25] MEDS: ENOXAPARIN SODIUM INJ 30 MG/0.3 ML DISP.SYRIN SUBCUT SCH (10:16)
[2018-05-25] MEDS: OMEGA-3 ACID ETHYL ESTERS 1 GM CAPSULE PO SCH ×2 (10:16→20:09)
[2018-05-25] MEDS: CARVEDILOL 3.125 MG TABLET PO SCH ×2 (10:17→22:20)
[2018-05-25] MEDS: ASPIRIN 81 MG TABLET, CHEWABLE PO SCH (10:17)
[2018-05-25] MEDS: CYCLOSPORINE 0.05% OPH EMULSIO 0.4 ML DROPERETTE OU SCH (10:18)
[2018-05-25] MEDS: POLYVINYL ALCOHOL 1.4% OPH SOLN 15 ML OP SCH ×3 (10:23→20:00)
[2018-05-25] MEDS: FUROSEMIDE 40 MG TABLET PO SCH (13:10)
--- NOTE | 2018-05-25 13:32 | PDOC PROGRESS REPORT ---
Subjective Subjective:: This is a 62-year-old male with a past medical history of CAD, prior CABG, COPD, diet-controlled DM, chronic systolic heart failure from ischemic cardiomyopathy with prior AICD placement, chronic respiratory failure on home O2, history of CVA with residual partial expressive aphasia who initially presented with increasing shortness of breath and leg swelling. Patient was admitted for CHF exacerbation. Patient has partial expressive aphasia (has some residual slurring and pauses) but is coherent and is able to converse with provider. He says his SOB is at baseline but he becomes short of breath when lying supine. He has been having persistent orthopnea. 05/13: Discussed in length again this morning with caregiver (Nuria) and patient. We discussed the need for thoracentesis again this morning including the indication due to his persistent orthopnea and significant bilateral pleural effusion. Also discussed the small risk of pneumothorax. Patient did agree undergo thoracentesis as he has been having patient orthopnea. Patient is oriented to person, place and situation. Also discussed with convention planner on bedside about possible option to be transferred to a [facility] in [place] as patient is a his history of placement and disposition. He does not want to be transferred at this time and would prefer to stay here. 05/14: Patient does appear to have into capacity to make his own medical decisions. Patient was also evaluated by psych who deemed the same. Discussed in length again today about plan and disposition. Patient says he does not want to go to a assisted or rehab. He also does not want to talk about his CODE STATUS and says that he will "sort it out" later. Offered palliative care consult and he is receptive to it but not hospice. He says his breathing has improved after the thoracentesis. Equipment Cleaner And Tester recommended BiPAP at home. Patient is resistant on using BiPAP at home but agrees to try it here while inpatient and see if he tolerates it. 05/15: Upon encounter this morning, patient was sleeping on the recliner. Patient says that his house is not fixed yet. He says he does not want to go to any of the surrounding SNF/rehab facilities at this time but is agreeable to being transferred to the [facility] in [place]. Convinced on trying the BiPAP and he says he will try wearing it. 05/16: No acute event overnight. Patient has complied with BIPAP. He says his breathing has slightly improved but still has orthopnea. Denies chest pain or dizziness. 05/17: Patient says his breathing has improved and he feels better today. He s ays he can use the BIPAP for 2 hrs but is willing to try to extend it to 3-4 hrs today. 05/18: Patient only used BIPAP for 1.5 hrs last night. Upon encounter, he does say that he breathes and feels better when on BIPAP. He was advised on increasing his BIPAP use again today. He denies worsening SOB or chest pain. Still awaiting for update on transfer to [facility] in [facility]. 05/19/2018-no acute events in the last 24 hours as per the patient he is using BiPAP 3-4 hours a day. He is comfortably in the chair on oxygen via nasal cannula. Denies any problems. Waiting for placement in [facility]. 05/20/2018-no acute events in the last 24 hours. Patient is on oxygen via nasal cannula walking in the room. Denies any complaints. Using BiPAP 4 hours a day. Patient is waiting for placement at [facility]. 05/21/2018 no acute events in the last 24 hours. Patient is complaining of pain in both arms. I am going to put him on Percocet 09/25/2024 every 8 as needed for pain. Patient is on 2 L nasal cannula pulse ox is 96%. He is using BiPAP 4 hours a day. 05/22/2018-no acute events over the last 24 hours. Patient is afebrile. Patient is complaining of dry skin and itching he wants some Benadryl. 05/23/2018 no acute events in the last 24 hours. His BiPAP requirements are decreased. Patient is afebrile. His pulse ox is 99% on 2 L. Notably sitting in the bed communicating okay. 05/24/2018 -no acute events in the last 24 hours. Patient pulse oxes 99% on 2 L. Is comfortably sleeping in his chair. Denies any complaints. 05/25/2018-no acute events in the last 24 hours. Pulse ox is 100% on 2 L. He is comfortable in the chair communicating very well. Denies any complaints. waiting for placement in [place]. Reason For Visit: CHF Physical Exam Vital Signs: Temp Pulse Resp BP Pulse Ox 98.6 F 91 20 102/63 100 05/25/18 09:00 05/25/18 09:00 05/25/18 09:00 05/25/18 09:00 05/25/18 09:00 Intake & Output 05/24/18 05/25/18 05/26/18 06:59 06:59 06:59 Intake Total 1071 1486 Output Total 850 1750 Balance 221 -264 Weight 80.9 kg General appearance: PRESENT: no acute distress Head exam: PRESENT: atraumatic Eye exam: PRESENT: PERRLA Mouth exam: PRESENT: moist Neck exam: ABSENT: carotid bruit, JVD, lymphadenopathy, thyromegaly Respiratory exam: PRESENT: decreased breath sounds GI/Abdominal exam: PRESENT: normal bowel sounds, soft. ABSENT: distended, guarding, mass, organolmegaly, rebound, tenderness Extremities exam: PRESENT: full ROM. ABSENT: calf tenderness, clubbing, pedal e chayo Neurological exam: PRESENT: alert, awake, oriented to person, oriented to place, oriented to time, oriented to situation, CN II-XII grossly intact. ABSENT: motor sensory deficit Psychiatric exam: PRESENT: appropriate affect, normal mood. ABSENT: homicidal ideation, suicidal ideation Results Laboratory Results: 05/25/18 08:35 05/25/18 08:35 05/25/18 05/25/18 08:35 08:35 WBC 4.9 RBC 4.58 Hgb 12.7 L Hct 38.7 MCV 85 MCH 27.7 MCHC 32.8 RDW 16.5 H Plt Count 159 Seg Neutrophils % 48.0 Lymphocytes % 26.2 Monocytes % 17.5 H Eosinophils % 7.6 H Basophils % 0.7 Absolute Neutrophils 2.3 Absolute Lymphocytes 1.3 Absolute Monocytes 0.9 Absolute Eosinophils 0.4 Absolute Basophils 0.0 Sodium 138.6 Potassium 4.8 Chloride 95 L Carbon Dioxide 35 H Anion Gap 9 BUN 36 H Creatinine 1.23 Est GFR ( Amer) > 60 Est GFR (Non-Af Amer) 59 L Glucose 109 Calcium 9.5 Magnesium 1.9 Total Bilirubin 0.5 AST 41 ALT 28 Alkaline Phosphatase 94 Total Protein 6.2 L Albumin 3.8 05/11/18 05/11/18 05/11/18 09:35 09:35 09:35 Creatine Kinase 37 L Troponin I 0.071 NT-Pro-B Natriuret Pep 6800 H 05/11/18 05/11/18 05/12/18 12:30 19:00 01:06 Creatine Kinase Troponin I 0.067 0.064 0.050 NT-Pro-B Natriuret Pep 05/23/18 05/24/18 10:36 09:38 Creatine Kinase Troponin I NT-Pro-B Natriuret Pep 819 889 Impressions: Thoracentesis Ultrasound 05/13/18 10:06 IMPRESSION: SUCCESSFUL THORACENTESIS USING ULTRASOUND GUIDANCE. Chest X-Ray 05/17/18 09:40 IMPRESSION: Decrease in the right pleural effusion but with persistent moderate effusion basilar opacities. Persistent prominent left retrocardiac density likely effusion/atelectasis. Assessment & Plan - Diagnosis (1) Acute and chronic respiratory failure with hypoxia Is this a current diagnosis for this admission?: Yes Plan: 05/19/2018 acute on chronic respiratory failure with hypoxia probably secondary to CHF exacerbation. He is on BiPAP for 3-4 hours/day. Plan is to continue the current management. 05/20/2018-patient was admitted for acute on chronic respiratory failure with hypoxia probably secondary to CHF exacerbation. He is using BiPAP 4 hours a day. No acute events in the last 24 hours. Plan is to continue the present management. 05/21/2018-patient is comfortably in the chair on 2 L oxygen via nasal cannula. Acute on chronic respiratory failure resolved with hypoxia resolved. Is awaiting for placement in [facility]. 05/22/2018-pulse ox on 2 L is 100% today. Patient is comfortably in the chair. Only complaint is his complaint of dry skin and itching. [facility] He is using BiPAP 3-4 hours a day. His acute on chronic respiratory failure with hypoxia probably secondary to CHF exacerbation. I am going to recheck his BMP tomorrow. Pt is not in fluid overload today. 05/23/2018 pulse ox on 2 L is 99% patient is able to walk in the hallway on 2 L oxygen without any problems. He did not have need to use the BiPAP in the last 24 hours. He has been BNP is around 820. no Signs of any fluid overload. Plan is to continue the present management. 05/24/2018 patient was admitted for acute on chronic respiratory failure with hypoxia hypoxia resolved. Patient is not on BiPAP anymore. Pulse ox is pulse ox is 91% on 2 L. [facility] 05/25/2018-2 L oxygen pulse ox 100% hypoxia with acute respiratory failure resolved patient is not using the BiPAP anymore. He is waiting for placement at [facility]. (2) Acute on chronic systolic (congestive) heart failure Is this a current diagnosis for this admission?: Yes Plan: Combined systolic and diastolic biventricular failure. Continue Lasix 40 mg daily. Cardiology following. Echo shows an EF of 30-35%, grade 2 diastolic dysfunction and dilated left and right ventricular. Patient already has an AICD. Patient is not on UZMA inhibitor hence is not on optimal medical therapy. CHF medication regimen cannot be optimized as patient has had angioedema from captopril before. Both UZMA inhibitors and Entresto will be contraindicated to a history of ACEi-associated angioedema. Discussed with cardio and pulm. Recommendation for BIPAP at home/discharge for his biventricular heart failure and significant pulmonary hypertension. Continue Coreg and Aldactone. 05/16/18: Decreased Lasix to 40 mg IV daily from q12 due to alkalosis. 05/19/2018-patient has history of congestive heart failure. Which is combined systolic diastolic biventricular failure. Patient is on Lasix 40 mg IV twice daily. cardiology on board. EF is 30-35%. Grade 2 diastolic dysfunction and dilated left and right ventricular chambers. Patient has AICD. Patient is not on UZMA inhibitors because of history of angioedema. UZMA inhibitors and Entresto are not contraindicated because of the ACEi associated angioedema. Patient is also on Coreg and Aldactone. And is to discharge him to [place] on BiPAP. 05/20/2018-has a combined systolic diastolic biventricular failure. EF is 30- 35%. Echocardiogram shows grade 2 diastolic dysfunction and dilated left and r ight ventricular chambers. Patient has AICD. Patient is not on UZMA inhibitors because of history of angioedema. Stoped Aldactone today because potassium is 5.1. 05/21/2018-patient has history of congestive heart failure combined systolic diastolic biventricular failure with EF of 30-35%. Patient is allergic to UZMA inhibitors gives angioedema. Latest potassium is 5.1. We are going to check his potassium levels today. Yesterday I stopped his spironolactone and we stopped potassium supplementation. 05/22/2018-his latest potassium is 5.0 potassium supplementation was discontinued spironolactone was discontinued, has EF is 30-35%. Patient is not in fluid overload I am going to follow the patient regular basis. 05/23/2018-potassium level is 5.0 stable patient ejection fraction is 30-45%. Patient has combined systolic diastolic biventricular heart failure. He has AICD. And is to continue the present management. 05/24/2018-patient's has a biventricular systolic and diastolic heart failure with EF of 35-40%. Patient has AICD. He is on Lasix 40 IV daily I am going to switch her to 40 mg p.o. daily. 05/25/2018-patient is not in fluid overload chest was clear no pedal edema. He has biventricular systolic/diastolic heart failure with EF of 35-40%. He is on Lasix. (3) Pleural effusion Is this a current diagnosis for this admission?: Yes Plan: 05/19/2018-patient came in with a right-sided pleural effusion status post thoracentesis on 05/13/2018 with removal of 750 cc of fluid. Fluid analysis con sistent with transudate. Which is likely secondary to CHF. Negative for infection. 05/20/2018-patient came in with right pleural effusion status post thoracentesis on 05/13/2018. The cultures are negative. 05/21/2018 status post thoracentesis of right pleural effusion 750 cc of fluid was removed. cultures Negative. 05/23/2018 during this hospital stay he had a right-sided thoracentesis. And 750 cc of fluid was removed. I am going to redo the chest x-ray today. 05/25/2018-status post right-sided thoracentesis. On examination decreased air entry at the right base. Probably persistent pleural effusion. (4) CAD (coronary artery disease) Is this a current diagnosis for this admission?: Yes - Time Time Spent with patient: Less than 15 minutes Medications reviewed and adjusted accordingly: Yes Anticipated discharge: SNF
[2018-05-25] MEDS: ROPINIROLE HCL 0.25 MG TABLET PO SCH (22:19)
[2018-05-26] MEDS: POLYVINYL ALCOHOL 1.4% OPH SOLN 15 ML OP SCH ×5 (01:07→21:03)
[2018-05-26] MEDS: DIGOXIN 0.125 MG TABLET PO SCH (09:54)
[2018-05-26] MEDS: DOCUSATE SODIUM 100 MG CAPSULE PO SCH ×2 (09:54→17:33)
[2018-05-26] MEDS: GABAPENTIN 100 MG CAPSULE PO SCH ×3 (09:54→21:05)
[2018-05-26] MEDS: ACETAMINOPHEN 325 MG TABLET PO SCH ×3 (09:54→17:33)
[2018-05-26] MEDS: OMEGA-3 ACID ETHYL ESTERS 1 GM CAPSULE PO SCH ×2 (09:55→17:33)
[2018-05-26] MEDS: FUROSEMIDE 40 MG TABLET PO SCH (09:55)
[2018-05-26] MEDS: CARVEDILOL 3.125 MG TABLET PO SCH ×2 (09:55→21:05)
[2018-05-26] MEDS: ENOXAPARIN SODIUM INJ 30 MG/0.3 ML DISP.SYRIN SUBCUT SCH (09:55)
[2018-05-26] MEDS: ASPIRIN 81 MG TABLET, CHEWABLE PO SCH (09:55)
[2018-05-26] MEDS: CYCLOSPORINE 0.05% OPH EMULSIO 0.4 ML DROPERETTE OU SCH (10:07)
[2018-05-26] MEDS: INSULIN LISPRO 100 UNIT/ML 3 ML VIAL SUBCUT PRN (12:44)
--- NOTE | 2018-05-26 15:29 | PDOC PROGRESS REPORT ---
Subjective Progress Note for:: 05/26/18 Subjective:: This is a 62-year-old male with a past medical history of CAD, prior CABG, COPD, diet-controlled DM, chronic systolic heart failure from ischemic cardiomyopathy with prior AICD placement, chronic respiratory failure on home O2, history of CVA with residual partial expressive aphasia who initially presented with increasing shortness of breath and leg swelling. Patient was admitted for CHF exacerbation. Patient has partial expressive aphasia (has some residual slurring and pauses) but is coherent and is able to converse with provider. He says his SOB is at baseline but he becomes short of breath when lying supine. He has been having persistent orthopnea. 05/13: Discussed in length again this morning with caregiver (Nuria) and patient. We discussed the need for thoracentesis again this morning including the indication due to his persistent orthopnea and significant bilateral pleural effusion. Also discussed the small risk of pneumothorax. Patient did agree undergo thoracentesis as he has been having patient orthopnea. Patient is oriented to person, place and situation. Also discussed with systems planner on bedside about possible option to be transferred to a [facility] in [place] as patient is a his history of placement and disposition. He does not want to be transferred at this time and would prefer to stay here. 05/14: Patient does appear to have into capacity to make his own medical decisions. Patient was also evaluated by psych who deemed the same. Discussed in length again today about plan and disposition. Patient says he does not want to go to a senior care or rehab. He also does not want to talk about his CODE STATUS and says that he will "sort it out" later. Offered palliative care consult and he is receptive to it but not hospice. He says his breathing has improved after the thoracentesis. Compensation Adjuster recommended BiPAP at home. Patient is resistant on using BiPAP at home but agrees to try it here while inpatient and see if he tolerates it. 05/15: Upon encounter this morning, patient was sleeping on the recliner. Patient says that his house is not fixed yet. He says he does not want to go to any of the surrounding SNF/rehab facilities at this time but is agreeable to being transferred to the [facility] in [place]. Convinced on trying the BiPAP and he says he will try wearing it. 05/16: No acute event overnight. Patient has complied with BIPAP. He says his breathing has slightly improved but still has orthopnea. Denies chest pain or dizziness. 05/17: Patient says his breathing has improved and he feels better today. He says he can use the BIPAP for 2 hrs but is willing to try to extend it to 3-4 hrs today. 05/18: Patient only used BIPAP for 1.5 hrs last night. Upon encounter, he does say that he breathes and feels better when on BIPAP. He was advised on increas ing his BIPAP use again today. He denies worsening SOB or chest pain. Still awaiting for update on transfer to [place] the in [facility]. Patient has remained stable with no acute issues interim. He has been more complaint with BIPAP. He denies acute SOB and feels like he is at his baseline. Denies chest pain. He is still awaiting placement. Discussed about considering other SNF/rehabs aside from a [place] facility for ferry terminal agent placement, he says he will consider it depending on the location. Reason For Visit: CHF Physical Exam Vital Signs: Temp Pulse Resp BP Pulse Ox 97.9 F 95 22 H 111/66 100 05/26/18 12:34 05/26/18 12:34 05/26/18 12:34 05/26/18 12:34 05/26/18 12:34 Intake & Output 05/25/18 05/26/18 05/27/18 06:59 06:59 06:59 Intake Total 1486 1767 Output Total 1750 1050 Balance -264 717 General appearance: PRESENT: no acute distress, well-developed, well-nourished Head exam: PRESENT: atraumatic, normocephalic Eye exam: PRESENT: conjunctiva pink, EOMI, PERRLA. ABSENT: scleral icterus Ear exam: PRESENT: normal external ear exam Mouth exam: PRESENT: moist, tongue midline Neck exam: ABSENT: carotid bruit, JVD, lymphadenopathy, thyromegaly Respiratory exam: PRESENT: decreased breath sounds - slightly decreased BS on the bases. ABSENT: rales, rhonchi, wheezes Pulses: PRESENT: normal dorsalis pedis pul GI/Abdominal exam: PRESENT: normal bowel sounds, soft. ABSENT: distended, guarding, mass, organolmegaly, rebound, tenderness Rectal exam: PRESENT: deferred Neurological exam: PRESENT: alert, awake, oriented to person, oriented to place, oriented to time, oriented to situation, CN II-XII grossly intact. ABSENT: motor sensory deficit Results Laboratory Results: 05/25/18 08:35 05/25/18 08:35 05/11/18 05/11/18 05/11/18 09:35 09:35 09:35 Creatine Kinase 37 L Troponin I 0.071 NT-Pro-B Natriuret Pep 6800 H 05/11/18 05/11/18 05/12/18 12:30 19:00 01:06 Creatine Kinase Troponin I 0.067 0.064 0.050 NT-Pro-B Natriuret Pep 05/23/18 05/24/18 10:36 09:38 Creatine Kinase Troponin I NT-Pro-B Natriuret Pep 819 889 Impressions: Thoracentesis Ultrasound 05/13/18 10:06 IMPRESSION: SUCCESSFUL THORACENTESIS USING ULTRASOUND GUIDANCE. Chest X-Ray 05/17/18 09:40 IMPRESSION: Decrease in the right pleural effusion but with persistent moderate effusion basilar opacities. Persistent prominent left retrocardiac density likely effusion/atelectasis. Assessment & Plan - Diagnosis (1) Acute and chronic respiratory failure with hypoxia Is this a current diagnosis for this admission?: Yes Plan: Secondary to CHF exacerbation. Continue BIPAP use 4 hrs/4 hrs off. (2) Acute on chronic systolic (congestive) heart failure Is this a current diagnosis for this admission?: Yes Plan: Combined systolic and diastolic biventricular failure. Continue Lasix 40 mg daily. Cardiology following. Echo shows an EF of 30-35%, grade 2 diastolic dysfunction and dilated left and right ventricular. Patient already has an AICD. Patient is not on UZMA inhibitor hence is not on optimal medical therapy. CHF medication regimen cannot be optimized as patient has had angioedema from captopril before. Both UZMA inhibitors and Entresto will be contraindicated to a history of ACEi-associated angioedema. Discussed with cardio and pulm. Recommendation for BIPAP at home/discharge for his biventricular heart failure and significant pulmonary hypertension. Continue Coreg. Aldactone was d/raghav due to his potassium trending up. Continue Lasix 40 mg daily. (3) Pleural effusion Is this a current diagnosis for this admission?: Yes Plan: S/P right sided thoracentesis (750 cc) on 05/13/18. Pleural fluid analysis is consistent with transudative effusion likely related to patient's CHF. Chest x- ray after thoracentesis did show improvement in aeration of the right lower lung salazar. (4) CAD (coronary artery disease) Is this a current diagnosis for this admission?: Yes Plan: Stable. Continue aspirin, statin and beta steve. - Time Time Spent with patient: 15-24 minutes
[2018-05-26] MEDS: ROPINIROLE HCL 0.25 MG TABLET PO SCH (21:04)
[2018-05-26] MEDS: OXYCODONE-ACETAMINOPHEN 5-325 MG TABLET PO PRN (21:05)
[2018-05-27] MEDS: ACETAMINOPHEN 325 MG TABLET PO SCH ×5 (00:05→23:00)
[2018-05-27] MEDS: GABAPENTIN 100 MG CAPSULE PO SCH ×3 (05:45→23:00)
[2018-05-27] MEDS: OMEGA-3 ACID ETHYL ESTERS 1 GM CAPSULE PO SCH ×2 (09:48→19:00)
[2018-05-27] MEDS: FUROSEMIDE 40 MG TABLET PO SCH (09:48)
[2018-05-27] MEDS: DOCUSATE SODIUM 100 MG CAPSULE PO SCH ×2 (09:49→19:00)
[2018-05-27] MEDS: ENOXAPARIN SODIUM INJ 30 MG/0.3 ML DISP.SYRIN SUBCUT SCH (09:49)
[2018-05-27] MEDS: ASPIRIN 81 MG TABLET, CHEWABLE PO SCH (09:49)
[2018-05-27] MEDS: CARVEDILOL 3.125 MG TABLET PO SCH ×2 (09:51→21:09)
[2018-05-27] MEDS: DIGOXIN 0.125 MG TABLET PO SCH (09:52)
[2018-05-27] MEDS: POLYVINYL ALCOHOL 1.4% OPH SOLN 15 ML OP SCH ×4 (09:53→21:05)
[2018-05-27] MEDS ORDERED: GABAPENTIN 100 MG CAPSULE PO ONE (15:00)
--- NOTE | 2018-05-27 15:08 | PDOC PROGRESS REPORT ---
Subjective Progress Note for:: 05/27/18 Subjective:: This is a 62-year-old male with a past medical history of CAD, prior CABG, COPD, diet-controlled DM, chronic systolic heart failure from ischemic cardiomyopathy with prior AICD placement, chronic respiratory failure on home O2, history of CVA with residual partial expressive aphasia who initially presented with increasing shortness of breath and leg swelling. Patient was admitted for CHF exacerbation. Patient has partial expressive aphasia (has some residual slurring and pauses) but is coherent and is able to converse with provider. He says his SOB is at baseline but he becomes short of breath when lying supine. He has been having persistent orthopnea. 05/13: Discussed in length again this morning with caregiver (Nuria) and patient. We discussed the need for thoracentesis again this morning including the indication due to his persistent orthopnea and significant bilateral pleural effusion. Also discussed the small risk of pneumothorax. Patient did agree undergo thoracentesis as he has been having patient orthopnea. Patient is oriented to person, place and situation. Also discussed with senior program planner on bedside about possible option to be transferred to a [facility] in [place] as patient is a his history of placement and disposition. He does not want to be transferred at this time and would prefer to stay here. 05/14: Patient does appear to have into capacity to make his own medical decisions. Patient was also evaluated by psych who deemed the same. Discussed in length again today about plan and disposition. Patient says he does not want to go to a fdc or rehab. He also does not want to talk about his CODE STATUS and says that he will "sort it out" later. Offered palliative care consult and he is receptive to it but not hospice. He says his breathing has improved after the thoracentesis. Armoured Car Escort recommended BiPAP at home. Patient is resistant on using BiPAP at home but agrees to try it here while inpatient and see if he tolerates it. 05/15: Upon encounter this morning, patient was sleeping on the recliner. Patient says that his house is not fixed yet. He says he does not want to go to any of the surrounding SNF/rehab facilities at this time but is agreeable to being transferred to the [facility] in [place]. Convinced on trying the BiPAP and he says he will try wearing it. 05/16: No acute event overnight. Patient has complied with BIPAP. He says his breathing has slightly improved but still has orthopnea. Denies chest pain or dizziness. 05/17: Patient says his breathing has improved and he feels better today. He says he can use the BIPAP for 2 hrs but is willing to try to extend it to 3-4 hrs today. 05/18: Patient only used BIPAP for 1.5 hrs last night. Upon encounter, he does say that he breathes and feels better when on BIPAP. He was advised on increas ing his BIPAP use again today. He denies worsening SOB or chest pain. Still awaiting for update on transfer to [place] the in [facility]. Patient has remained stable with no acute issues in the interim and has just been waiting for placement. 05/26/18: He has been more complaint with BIPAP. He denies acute SOB and feels like he is at his baseline. He is still awaiting placement. 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 05/27/18: No acute event overnight. He did complaint of transient chest tightness this morning after he ate a big breakfast (ham and omelet). He says it only lasted for a few seconds. EKG was negative for acute changes. Still awaiting for placement. Reason For Visit: CHF Physical Exam Vital Signs: Temp Pulse Resp BP Pulse Ox 98.5 F 93 16 113/66 100 05/27/18 12:10 05/27/18 12:10 05/27/18 12:10 05/27/18 12:10 05/27/18 12:10 Intake & Output 05/26/18 05/27/18 05/28/18 06:59 06:59 06:59 Intake Total 1767 718 Output Total 1050 660 Balance 717 58 General appearance: PRESENT: no acute distress, well-developed, well-nourished Head exam: PRESENT: atraumatic, normocephalic Eye exam: PRESENT: conjunctiva pink, EOMI, PERRLA. ABSENT: scleral icterus Ear exam: PRESENT: normal external ear exam Mouth exam: PRESENT: moist, tongue midline Neck exam: ABSENT: carotid bruit, JVD, lymphadenopathy, thyromegaly Respiratory exam: PRESENT: decreased breath sounds - slightly decreased BS on the bases, rhonchi. ABSENT: rales, wheezes Pulses: PRESENT: normal dorsalis pedis pul GI/Abdominal exam: PRESENT: normal bowel sounds, soft. ABSENT: distended, guarding, mass, organolmegaly, rebound, tenderness Rectal exam: PRESENT: deferred Extremities exam: PRESENT: +1 edema Neurological exam: PRESENT: alert, awake, oriented to person, oriented to place, oriented to time, oriented to situation Results Laboratory Results: 05/25/18 08:35 05/25/18 08:35 05/11/18 05/11/18 05/11/18 09:35 09:35 09:35 Creatine Kinase 37 L Troponin I 0.071 NT-Pro-B Natriuret Pep 6800 H 05/11/18 05/11/18 05/12/18 12:30 19:00 01:06 Creatine Kinase Troponin I 0.067 0.064 0.050 NT-Pro-B Natriuret Pep 05/23/18 05/24/18 05/27/18 10:36 09:38 10:01 Creatine Kinase Troponin I 0.060 NT-Pro-B Natriuret Pep 819 889 Impressions: Thoracentesis Ultrasound 05/13/18 10:06 IMPRESSION: SUCCESSFUL THORACENTESIS USING ULTRASOUND GUIDANCE. Chest X-Ray 05/17/18 09:40 IMPRESSION: Decrease in the right pleural effusion but with persistent moderate effusion basilar opacities. Persistent prominent left retrocardiac density likely effusion/atelectasis. Assessment & Plan - Diagnosis (1) Acute and chronic respiratory failure with hypoxia Is this a current diagnosis for this admission?: Yes Plan: Secondary to CHF exacerbation. Continue BIPAP use 4 hrs/4 hrs off. (2) Acute on chronic systolic (congestive) heart failure Is this a current diagnosis for this admission?: Yes Plan: Combined systolic and diastolic biventricular failure. Continue Lasix 40 mg daily. Cardiology following. Echo shows an EF of 30-35%, grade 2 diastolic dysfunction and dilated left and right ventricular. Patient already has an AICD. Patient is not on UZMA inhibitor hence is not on optimal medical therapy. CHF medication regimen cannot be optimized as patient has had angioedema from captopril before. Both UZMA inhibitors and Entresto will be contraindicated to a history of ACEi-associated angioedema. Discussed with cardio and pulm. Recommendation for BIPAP at home/discharge for his biventricular heart failure and significant pulmonary hypertension. Continue Coreg. Aldactone was d/raghav due to his potassium trending up. Continue Lasix 40 mg daily. (3) Pleural effusion Is this a current diagnosis for this admission?: Yes Plan: S/P right sided thoracentesis (750 cc) on 05/13/18. Pleural fluid analysis is consistent with transudative effusion likely related to patient's CHF. Chest x- ray after thoracentesis did show improvement in aeration of the right lower lung salazar. (4) CAD (coronary artery disease) Is this a current diagnosis for this admission?: Yes Plan: Stable. Continue aspirin, statin and beta steve. - Time Time Spent with patient: 15-24 minutes
[2018-05-27] MEDS: CYCLOSPORINE 0.05% OPH EMULSIO 0.4 ML DROPERETTE OU SCH (15:33)
--- NOTE | 2018-05-27 17:19 | EKG REPORT ---
SEVERITY:- ABNORMAL ECG - SINUS RHYTHM PROBABLE LEFT ATRIAL ABNORMALITY IRBBB AND LPFB PROBABLE INFERIOR INFARCT, AGE INDETERMINATE : Confirmed by: Carolyn Garsia MD 27-May-2018 17:17:43
[2018-05-27] MEDS: ROPINIROLE HCL 0.25 MG TABLET PO SCH (21:10)
[2018-05-27] MEDS: DIPHENHYDRAMINE HCL 25 MG CAPSULE PO PRN (22:59)
[2018-05-28] MEDS: ACETAMINOPHEN 325 MG TABLET PO SCH ×3 (05:53→17:43)
[2018-05-28] MEDS: GABAPENTIN 100 MG CAPSULE PO SCH ×3 (05:53→17:43)
[2018-05-28] MEDS: POLYVINYL ALCOHOL 1.4% OPH SOLN 15 ML OP SCH ×4 (11:41→21:10)
[2018-05-28] MEDS: DOCUSATE SODIUM 100 MG CAPSULE PO SCH ×2 (11:42→17:44)
[2018-05-28] MEDS: OMEGA-3 ACID ETHYL ESTERS 1 GM CAPSULE PO SCH ×2 (11:43→17:43)
[2018-05-28] MEDS: FUROSEMIDE 40 MG TABLET PO SCH (11:44)
[2018-05-28] MEDS: ENOXAPARIN SODIUM INJ 30 MG/0.3 ML DISP.SYRIN SUBCUT SCH (11:44)
[2018-05-28] MEDS: DIGOXIN 0.125 MG TABLET PO SCH (11:44)
[2018-05-28] MEDS: CARVEDILOL 3.125 MG TABLET PO SCH ×2 (11:44→21:10)
[2018-05-28] MEDS: ASPIRIN 81 MG TABLET, CHEWABLE PO SCH (11:44)
--- NOTE | 2018-05-28 12:42 | PDOC PROGRESS REPORT ---
Subjective Progress Note for:: 05/27/18 Subjective:: Patient was seen on evening rounds on 27 May but somehow the dictation got missed. ALEX CRUZMAN is a 62 year old male who has coronary artery disease and COPD. Patient patient has history of CABG, ischemic cardiomyopathy status post AICD, chronic respiratory failure on home oxygen, prior stroke with residual aphasia. Patient medications were reviewed. Patient was seen in the evening. Patient claims to be compliant with nightly non-invasive ventilation therapy at night. On talking to him it became clear that he was actually using it and benefiting from it. He claims to be feeling much better overall. Patient and follow-up with me as an outpatient on discharge. Reason For Visit: CHF Physical Exam Vital Signs: Temp Pulse Resp BP Pulse Ox 97.6 F 66 18 104/55 L 98 05/28/18 00:00 05/28/18 00:00 05/28/18 00:00 05/28/18 00:00 05/28/18 00:00 Intake & Output 05/27/18 05/28/18 05/29/18 06:59 06:59 06:59 Intake Total 718 598 Output Total 660 725 Balance 58 -127 Exam: GENERAL: well-nourished and in no acute distress. Alert and oriented x3 HEAD: Atraumatic, normocephalic. EYES: JOHNATHON, sclera anicteric, conjunctiva are normal. ENT: Moist mucous membranes. No oral ulcerations or bleeding gums noted. No obvious ear, nose or throat abnormalities noted. NECK: supple without lymphadenopathy. Trachea is central. No cervical or axillary lymphadenopathy noted. Carotids are 2+, JVD WNL LUNGS: Breath sounds clear bilaterally. No wheezes rales or rhonchi noted. No significant dullness noted on percussion. CHEST: Palpation of the chest wall shows no significant chest wall tenderness. HEART: [place] [employer], No PSH, 1/6 NITISH aortic area, 1/6 daly systolic murmur mitral area, no rubs, no gallops. ABDOMEN: Soft, no significant tenderness appreciated, normoactive bowel sounds. No guarding, no rebound. No rigidity noted . No masses appreciated. EXTREMITIES: Pedal pulses are 1-2+, no calf tenderness noted. No clubbing or cyanosis. negative pedal edema noted NEUROLOGICAL: Focused neurological exam showed no significant neurologic deficit. Normal speech, no focal weakness appreciated. PSYCH: Normal mood, normal affect. Judgment and insight within normal limits. SKIN: No significant ecchymosis, skin is noted to be warm. MUSCULOSKELETAL EXAM: No significant acute joint swelling noted. Results Laboratory Results: 05/25/18 08:35 05/25/18 08:35 05/11/18 05/11/18 05/11/18 09:35 09:35 09:35 Creatine Kinase 37 L Troponin I 0.071 NT-Pro-B Natriuret Pep 6800 H 05/11/18 05/11/18 05/12/18 12:30 19:00 01:06 Creatine Kinase Troponin I 0.067 0.064 0.050 NT-Pro-B Natriuret Pep 05/23/18 05/24/18 05/27/18 10:36 09:38 10:01 Creatine Kinase Troponin I 0.060 NT-Pro-B Natriuret Pep 819 889 Impressions: Thoracentesis Ultrasound 05/13/18 10:06 IMPRESSION: SUCCESSFUL THORACENTESIS USING ULTRASOUND GUIDANCE. Chest X-Ray 05/17/18 09:40 IMPRESSION: Decrease in the right pleural effusion but with persistent moderate effusion basilar opacities. Persistent prominent left retrocardiac density likely effusion/atelectasis. Assessment & Plan - Diagnosis (1) Acute and chronic respiratory failure with hypoxia Is this a current diagnosis for this admission?: Yes (2) Acute on chronic systolic (congestive) heart failure Is this a current diagnosis for this admission?: Yes (3) Pleural effusion Is this a current diagnosis for this admission?: Yes (4) Atrial fibrillation Qualifiers: Atrial fibrillation type: paroxysmal Qualified Code(s): I48.0 - Paroxysmal atrial fibrillation Is this a current diagnosis for this admission?: Yes (5) Coronary artery disease Qualifiers: Coronary Disease-Associated Artery/Lesion type: unspecified vessel or lesion type [place] vs. transplanted heart: [place] heart Associated angina: angina presence unspecified Qualified Code(s): I25.10 - Atherosclerotic heart disease of [place] coronary artery without angina pectoris Is this a current diagnosis for this admission?: Yes (6) History of CVA (cerebrovascular accident) Is this a current diagnosis for this admission?: Yes - Notes Notes: Acute on chronic respiratory failure with hypoxemia: this is most likely related to CHF. Patient may have some underlying COPD. Continue with nightly BiPAP therapy. Acute and chronic systolic heart failure: recommend continuing diuretic therapy. Unfortunately patient has hyperkalaemia, if it result will consider spironolactone therapy. Unfortunately captopril is listed as allergy, patient on small dose of beta-steve, carvedilol. Patient also on digoxin. May consider adding small amount of hydralazine nitrate combination. Pleural effusion: continue diuretic therapy. Recommend checking a chest x-ray on periodic basis. Atrial fibrillation: admission EKG shows sinus rhythm. Continue chronic a nticoagulation. CAD: patient noted to be symptomatically stable. History of cerebrovascular accident: currently stable. Patient cognition seems to have improved significantly since he was initially ad mitted. Currently awaiting a bed at the [facility]. - Time Time with patient: 15-25 minutes - More than 50% of the time spent coordinating care, discussing management plans with involved caregivers. Management plans discussed with involved personnels. Medical decision making was of moderate to high complexity, patient's has multiple comorbidities. Medications reviewed and adjusted accordingly: Yes
--- NOTE | 2018-05-28 15:48 | RADIOLOGY REPORT (SQ) ---
EXAM DESCRIPTION: CHEST 2 VIEWS COMPLETED DATE/TIME: 05/28/2018 3:34 pm REASON FOR STUDY: F/U PLEURAL EFFUSION FOR CHF COMPARISON: CT angio chest 12/30/2017 Chest films 05/13/2018, 05/14/2018, 05/15/2018, 05/17/2018 EXAM PARAMETERS: NUMBER OF VIEWS: two views TECHNIQUE: Digital Frontal and Lateral radiographic views of the chest acquired. RADIATION DOSE: NA LIMITATIONS: none FINDINGS: LUNGS AND PLEURA: Small bilateral pleural effusions are present right greater than left. These are similar compared to plain films from April 2018. Minimal right basilar atelectasis. Lungs are otherwise clear. No pneumothorax. MEDIASTINUM AND HILAR STRUCTURES: No masses or contour abnormalities. HEART AND VASCULAR STRUCTURES: Massive cardiomegaly, stable BONES: No acute findings. HARDWARE: Unchanged left-sided single lead pacemaker. Old surgical clips right thyroid OTHER: No other significant finding. IMPRESSION: Stable small bilateral pleural effusions Massive cardiomegaly, stable. TECHNICAL DOCUMENTATION: JOB ID: [id number] [employer]- All Rights Reserved Reading location - IP/workstation name: [facility]
--- NOTE | 2018-05-28 16:49 | PDOC PROGRESS REPORT ---
Subjective Progress Note for:: 05/28/18 Subjective:: This is a 62-year-old male with a past medical history of CAD, prior CABG, COPD, diet-controlled DM, chronic systolic heart failure from ischemic cardiomyopathy with prior AICD placement, chronic respiratory failure on home O2, history of CVA with residual partial expressive aphasia who initially presented with increasing shortness of breath and leg swelling. Patient was admitted for CHF exacerbation. Patient has partial expressive aphasia (has some residual slurring and pauses) but is coherent and is able to converse with provider. He says his SOB is at baseline but he becomes short of breath when lying supine. He has been having persistent orthopnea. 05/13: Discussed in length again this morning with caregiver (Nuria) and patient. We discussed the need for thoracentesis again this morning including the indication due to his persistent orthopnea and significant bilateral pleural effusion. Also discussed the small risk of pneumothorax. Patient did agree undergo thoracentesis as he has been having patient orthopnea. Patient is oriented to person, place and situation. Also discussed with assortment planner on bedside about possible option to be transferred to a [facility] in [place] as patient is a his history of placement and disposition. He does not want to be transferred at this time and would prefer to stay here. 05/14: Patient does appear to have into capacity to make his own medical decisions. Patient was also evaluated by psych who deemed the same. Discussed in length again today about plan and disposition. Patient says he does not want to go to a fpc or rehab. He also does not want to talk about his CODE STATUS and says that he will "sort it out" later. Offered palliative care consult and he is receptive to it but not hospice. He says his breathing has improved after the thoracentesis. Insulation Sprayer recommended BiPAP at home. Patient is resistant on using BiPAP at home but agrees to try it here while inpatient and see if he tolerates it. 05/15: Upon encounter this morning, patient was sleeping on the recliner. Patient says that his house is not fixed yet. He says he does not want to go to any of the surrounding SNF/rehab facilities at this time but is agreeable to being transferred to the [facility] in [place]. Convinced on trying the BiPAP and he says he will try wearing it. 05/16: No acute event overnight. Patient has complied with BIPAP. He says his breathing has slightly improved but still has orthopnea. Denies chest pain or dizziness. 05/17: Patient says his breathing has improved and he feels better today. He says he can use the BIPAP for 2 hrs but is willing to try to extend it to 3-4 hrs today. 05/18: Patient only used BIPAP for 1.5 hrs last night. Upon encounter, he does say that he breathes and feels better when on BIPAP. He was advised on increas ing his BIPAP use again today. He denies worsening SOB or chest pain. Still awaiting for update on transfer to [place] the in [facility]. Patient has remained stable with no acute issues in the interim and has just been waiting for placement. 05/26/18: He has been more complaint with BIPAP. He denies acute SOB and feels like he is at his baseline. 05/27/18: No acute event overnight. He did complaint of transient chest tightness this morning after he ate a big breakfast (ham and omelet). He says it only lasted for a few seconds. EKG was negative for acute changes. 05/28/18: No acute event overnight. No acute symptoms, no chest pain or SOB. He is at his baseline. Continues to await placement. Reason For Visit: CHF Physical Exam Vital Signs: Temp Pulse Resp BP Pulse Ox 98.3 F 92 16 106/61 100 05/28/18 12:10 05/28/18 12:10 05/28/18 12:10 05/28/18 12:10 05/28/18 12:10 Intake & Output 05/27/18 05/28/18 05/29/18 06:59 06:59 06:59 Intake Total 718 598 Output Total 660 725 Balance 58 -127 General appearance: PRESENT: no acute distress, well-developed, well-nourished Head exam: PRESENT: atraumatic, normocephalic Eye exam: PRESENT: conjunctiva pink, EOMI, PERRLA. ABSENT: scleral icterus Ear exam: PRESENT: normal external ear exam Mouth exam: PRESENT: moist, tongue midline Neck exam: ABSENT: carotid bruit, JVD, lymphadenopathy, thyromegaly Respiratory exam: PRESENT: decreased breath sounds - on the bases, rhonchi. ABSENT: rales, wheezes Cardiovascular exam: PRESENT: RRR. ABSENT: diastolic murmur, rubs, systolic murmur Pulses: PRESENT: normal dorsalis pedis pul GI/Abdominal exam: PRESENT: normal bowel sounds, soft. ABSENT: distended, guarding, mass, organolmegaly, rebound, tenderness Rectal exam: PRESENT: deferred Neurological exam: PRESENT: alert, awake, oriented to person, oriented to place, oriented to time, oriented to situation Results Laboratory Results: 05/25/18 08:35 05/25/18 08:35 05/11/18 05/11/18 05/11/18 09:35 09:35 09:35 Creatine Kinase 37 L Troponin I 0.071 NT-Pro-B Natriuret Pep 6800 H 05/11/18 05/11/18 05/12/18 12:30 19:00 01:06 Creatine Kinase Troponin I 0.067 0.064 0.050 NT-Pro-B Natriuret Pep 05/23/18 05/24/18 05/27/18 10:36 09:38 10:01 Creatine Kinase Troponin I 0.060 NT-Pro-B Natriuret Pep 819 889 Impressions: Thoracentesis Ultrasound 05/13/18 10:06 IMPRESSION: SUCCESSFUL THORACENTESIS USING ULTRASOUND GUIDANCE. Chest X-Ray 05/28/18 00:00 IMPRESSION: Stable small bilateral pleural effusions Massive cardiomegaly, stable. Assessment & Plan - Diagnosis (1) Acute and chronic respiratory failure with hypoxia Is this a current diagnosis for this admission?: Yes Plan: Secondary to CHF exacerbation. Continue BIPAP use 4 hrs/4 hrs off. (2) Acute on chronic systolic (congestive) heart failure Is this a current diagnosis for this admission?: Yes Plan: Combined systolic and diastolic biventricular failure. Continue Lasix 40 mg daily. Cardiology following. Echo shows an EF of 30-35%, grade 2 diastolic dysfunction and dilated left and right ventricular. Patient already has an AICD. Patient is not on UZMA inhibitor hence is not on optimal medical therapy. CHF medication regimen cannot be optimized as patient has had angioedema from captopril before. Both UZMA inhibitors and Entresto will be contraindicated to a history of ACEi-associated angioedema. Discussed with cardio and pulm. Recommendation for BIPAP at home/discharge for his biventricular heart failure and significant pulmonary hypertension. Continue Coreg. Aldactone was d/raghav due to his potassium trending up. Continue Lasix 40 mg daily. (3) Pleural effusion Is this a current diagnosis for this admission?: Yes Plan: S/P right sided thoracentesis (750 cc) on 05/13/18. Pleural fluid analysis is consistent with transudative effusion likely related to patient's CHF. Chest x- ray after thoracentesis did show improvement in aeration of the right lower lung salazar. (4) CAD (coronary artery disease) Is this a current diagnosis for this admission?: Yes Plan: Stable. Continue aspirin, statin and beta steve. - Time Time Spent with patient: 15-24 minutes
[2018-05-28] MEDS: CYCLOSPORINE 0.05% OPH EMULSIO 0.4 ML DROPERETTE OU SCH (17:44)
[2018-05-28] MEDS: DIPHENHYDRAMINE HCL 25 MG CAPSULE PO PRN (17:48)
[2018-05-28] MEDS: ROPINIROLE HCL 0.25 MG TABLET PO SCH (21:10)
--- NOTE | 2018-05-28 21:29 | PDOC PROGRESS REPORT ---
Subjective Progress Note for:: 05/28/18 Subjective:: Patient was seen on morning rounds today. Chest x-ray was ordered. Which shows small residual pleural effusion but overall improved since admission.. ALEX Guadarrama KNIGHT is a 62 year old male who has coronary artery disease and COPD. Patient patient has history of CABG, ischemic cardiomyopathy status post AICD, chronic respiratory failure on home oxygen, prior stroke with residual aphasia. Patient medications were reviewed. Patient was seen in the evening. Patient claims to be compliant with nightly non-invasive ventilation therapy at night. On talking to him it became clear that he was actually using it and benefiting from it. He claims to be feeling much better overall. Patient and follow-up with me as an outpatient on discharge. Reason For Visit: CHF Physical Exam Vital Signs: Temp Pulse Resp BP Pulse Ox 98.4 F 96 18 103/63 100 05/28/18 16:02 05/28/18 16:02 05/28/18 16:02 05/28/18 16:02 05/28/18 16:02 Intake & Output 05/27/18 05/28/18 05/29/18 06:59 06:59 06:59 Intake Total 718 598 802 Output Total 660 725 225 Balance 58 -127 577 Exam: GENERAL: well-nourished and in no acute distress. Alert and oriented x3 HEAD: Atraumatic, normocephalic. EYES: [place], sclera anicteric, conjunctiva are normal. ENT: Moist mucous membranes. No oral ulcerations or bleeding gums noted. No obvious ear, nose or throat abnormalities noted. NECK: supple without lymphadenopathy. Trachea is central. No cervical or axillary lymphadenopathy noted. Carotids are 2+, JVD WNL LUNGS: Breath sounds clear bilaterally. No wheezes rales or rhonchi noted. No significant dullness noted on percussion. CHEST: Palpation of the chest wall shows no significant chest wall tenderness. 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 ABDOMEN: Soft, no significant tenderness appreciated, normoactive bowel sounds. No guarding, no rebound. No rigidity noted . No masses appreciated. EXTREMITIES: Pedal pulses are 1-2+, no calf tenderness noted. No clubbing or cyanosis. negative pedal edema noted NEUROLOGICAL: Focused neurological exam showed no significant neurologic deficit. Normal speech, no focal weakness appreciated. PSYCH: Normal mood, normal affect. Judgment and insight within normal limits. SKIN: No significant ecchymosis, skin is noted to be warm. MUSCULOSKELETAL EXAM: No significant acute joint swelling noted. Results Laboratory Results: 05/25/18 08:35 05/25/18 08:35 05/11/18 05/11/18 05/11/18 09:35 09:35 09:35 Creatine Kinase 37 L Troponin I 0.071 NT-Pro-B Natriuret Pep 6800 H 05/11/18 05/11/18 05/12/18 12:30 19:00 01:06 Creatine Kinase Troponin I 0.067 0.064 0.050 NT-Pro-B Natriuret Pep 05/23/18 05/24/18 05/27/18 10:36 09:38 10:01 Creatine Kinase Troponin I 0.060 NT-Pro-B Natriuret Pep 819 889 Impressions: Thoracentesis Ultrasound 05/13/18 10:06 IMPRESSION: SUCCESSFUL THORACENTESIS USING ULTRASOUND GUIDANCE. Chest X-Ray 05/28/18 00:00 IMPRESSION: Stable small bilateral pleural effusions Massive cardiomegaly, stable. Assessment & Plan - Diagnosis (1) Acute and chronic respiratory failure with hypoxia Is this a current diagnosis for this admission?: Yes (2) Acute on chronic systolic (congestive) heart failure Is this a current diagnosis for this admission?: Yes (3) Pleural effusion Is this a current diagnosis for this admission?: Yes (4) Atrial fibrillation Qualifiers: Atrial fibrillation type: paroxysmal Qualified Code(s): I48.0 - Paroxysmal atrial fibrillation Is this a current diagnosis for this admission?: Yes (5) Coronary artery disease Qualifiers: Coronary Disease-Associated Artery/Lesion type: unspecified vessel or lesion type [place] vs. transplanted heart: [place] heart Associated angina: angina presence unspecified Qualified Code(s): I25.10 - Atherosclerotic heart disease of [place] coronary artery without angina pectoris Is this a current diagnosis for this admission?: Yes (6) History of CVA (cerebrovascular accident) Is this a current diagnosis for this admission?: Yes - Notes Notes: Patient generally stable on current stable regimen. 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 Continue current regimen. May consider hydralazine nitrate combination. May start hydralazine at 10 mg p.o. every 8 and Imdur 30 mg p.o. daily. - Time Time with patient: 15-25 minutes - More than 50% of the time spent coordinating care, discussing management plans with involved caregivers. Management plans discussed with involved personnels. Medical decision making was of moderate to high complexity, patient's has multiple comorbidities. Medications reviewed and adjusted accordingly: Yes
[2018-05-29] MEDS: ACETAMINOPHEN 325 MG TABLET PO SCH ×5 (00:40→23:10)
[2018-05-29] MEDS: GABAPENTIN 100 MG CAPSULE PO SCH ×6 (00:41→23:10)
[2018-05-29] MEDS: ASPIRIN 81 MG TABLET, CHEWABLE PO SCH (09:59)
[2018-05-29] MEDS: OMEGA-3 ACID ETHYL ESTERS 1 GM CAPSULE PO SCH ×2 (09:59→18:41)
[2018-05-29] MEDS: FUROSEMIDE 40 MG TABLET PO SCH (10:00)
[2018-05-29] MEDS: DOCUSATE SODIUM 100 MG CAPSULE PO SCH ×2 (10:00→18:42)
[2018-05-29] MEDS: DIGOXIN 0.125 MG TABLET PO SCH (10:01)
[2018-05-29] MEDS: POLYVINYL ALCOHOL 1.4% OPH SOLN 15 ML OP SCH ×4 (10:01→23:12)
[2018-05-29] MEDS: CARVEDILOL 3.125 MG TABLET PO SCH ×2 (10:01→22:40)
[2018-05-29] MEDS: CYCLOSPORINE 0.05% OPH EMULSIO 0.4 ML DROPERETTE OU SCH (10:02)
[2018-05-29] MEDS: ENOXAPARIN SODIUM INJ 30 MG/0.3 ML DISP.SYRIN SUBCUT SCH (10:03)
--- NOTE | 2018-05-29 15:44 | PDOC PROGRESS REPORT ---
Subjective Progress Note for:: 05/29/18 Subjective:: This is a 62-year-old male with a past medical history of CAD, prior CABG, COPD, diet-controlled DM, chronic systolic heart failure from ischemic cardiomyopathy with prior AICD placement, chronic respiratory failure on home O2, history of CVA with residual partial expressive aphasia who initially presented with increasing shortness of breath and leg swelling. Patient was admitted for CHF exacerbation. Patient has partial expressive aphasia (has some residual slurring and pauses) but is coherent and is able to converse with provider. He says his SOB is at baseline but he becomes short of breath when lying supine. He has been having persistent orthopnea. 05/13: Discussed in length again this morning with caregiver (Nuria) and patient. We discussed the need for thoracentesis again this morning including the indication due to his persistent orthopnea and significant bilateral pleural effusion. Also discussed the small risk of pneumothorax. Patient did agree undergo thoracentesis as he has been having patient orthopnea. Patient is oriented to person, place and situation. Also discussed with process planner on bedside about possible option to be transferred to a [facility] in [place] as patient is a his history of placement and disposition. He does not want to be transferred at this time and would prefer to stay here. 05/14: Patient does appear to have into capacity to make his own medical decisions. Patient was also evaluated by psych who deemed the same. Discussed in length again today about plan and disposition. Patient says he does not want to go to a fci or rehab. He also does not want to talk about his CODE STATUS and says that he will "sort it out" later. Offered palliative care consult and he is receptive to it but not hospice. He says his breathing has improved after the thoracentesis. Moisture Tester recommended BiPAP at home. Patient is resistant on using BiPAP at home but agrees to try it here while inpatient and see if he tolerates it. 05/15: Upon encounter this morning, patient was sleeping on the recliner. Patient says that his house is not fixed yet. He says he does not want to go to any of the surrounding SNF/rehab facilities at this time but is agreeable to being transferred to the [facility] in [place]. Convinced on trying the BiPAP and he says he will try wearing it. 05/16: No acute event overnight. Patient has complied with BIPAP. He says his breathing has slightly improved but still has orthopnea. Denies chest pain or dizziness. 05/17: Patient says his breathing has improved and he feels better today. He says he can use the BIPAP for 2 hrs but is willing to try to extend it to 3-4 hrs today. 05/18: Patient only used BIPAP for 1.5 hrs last night. Upon encounter, he does say that he breathes and feels better when on BIPAP. He was advised on increas ing his BIPAP use again today. He denies worsening SOB or chest pain. Still awaiting for update on transfer to [place] the in [facility]. Patient has remained stable with no acute issues in the interim and has just been waiting for placement. 05/26/18: He has been more complaint with BIPAP. He denies acute SOB and feels like he is at his baseline. 05/27/18: No acute event overnight. He did complaint of transient chest tightness this morning after he ate a big breakfast (ham and omelet). He says it only lasted for a few seconds. EKG was negative for acute changes. 05/28/18: No acute event overnight. No acute symptoms, no chest pain or SOB. He is at his baseline. 05/29/18: No acute event. Patient denies any acute complaint. Updated by RN and process planner that patient's house will be condemned due to multiple issues. Reason For Visit: CHF Physical Exam Vital Signs: Temp Pulse Resp BP Pulse Ox 97.8 F 83 25 H 101/61 100 05/29/18 08:00 05/29/18 08:00 05/29/18 11:03 05/29/18 08:00 05/29/18 11:03 Intake & Output 05/28/18 05/29/18 05/30/18 06:59 06:59 06:59 Intake Total 598 1042 Output Total 725 950 Balance -127 92 General appearance: PRESENT: no acute distress, well-developed, well-nourished Head exam: PRESENT: atraumatic, normocephalic Eye exam: PRESENT: conjunctiva pink, EOMI, PERRLA. ABSENT: scleral icterus Ear exam: PRESENT: normal external ear exam Mouth exam: PRESENT: moist, tongue midline Neck exam: ABSENT: carotid bruit, JVD, lymphadenopathy, thyromegaly Respiratory exam: PRESENT: decreased breath sounds - slightly decreased BS on the bases, similar to previous finding. ABSENT: rales, rhonchi, wheezes GI/Abdominal exam: PRESENT: normal bowel sounds, soft. ABSENT: distended, guarding, mass, organolmegaly, rebound, tenderness Rectal exam: PRESENT: deferred Neurological exam: PRESENT: alert, awake, oriented to person, oriented to place, oriented to time, oriented to situation Results Laboratory Results: 05/25/18 08:35 05/25/18 08:35 05/11/18 05/11/18 05/11/18 09:35 09:35 09:35 Creatine Kinase 37 L Troponin I 0.071 NT-Pro-B Natriuret Pep 6800 H 05/11/18 05/11/18 05/12/18 12:30 19:00 01:06 Creatine Kinase Troponin I 0.067 0.064 0.050 NT-Pro-B Natriuret Pep 05/23/18 05/24/18 05/27/18 10:36 09:38 10:01 Creatine Kinase Troponin I 0.060 NT-Pro-B Natriuret Pep 819 889 Impressions: Thoracentesis Ultrasound 05/13/18 10:06 IMPRESSION: SUCCESSFUL THORACENTESIS USING ULTRASOUND GUIDANCE. Chest X-Ray 05/28/18 00:00 IMPRESSION: Stable small bilateral pleural effusions Massive cardiomegaly, stable. Assessment & Plan - Diagnosis (1) Acute and chronic respiratory failure with hypoxia Is this a current diagnosis for this admission?: Yes Plan: Secondary to CHF exacerbation. Continue BIPAP use 4 hrs/4 hrs off. (2) Acute on chronic systolic (congestive) heart failure Is this a current diagnosis for this admission?: Yes Plan: Combined systolic and diastolic biventricular failure. Continue Lasix 40 mg daily. Cardiology following. Echo shows an EF of 30-35%, grade 2 diastolic dysfunction and dilated left and right ventricular. Patient already has an AICD. Patient is not on UZMA inhibitor hence is not on optimal medical therapy. CHF medication regimen cannot be optimized as patient has had angioedema from captopril before. Both UZMA inhibitors and Entresto will be contraindicated to a history of ACEi-associated angioedema. Discussed with cardio and pulm. Recommendation for BIPAP at home/discharge for his biventricular heart failure and significant pulmonary hypertension. Continue Coreg. Aldactone was d/raghav due to his potassium trending up. Continue Lasix 40 mg daily. (3) Pleural effusion Is this a current diagnosis for this admission?: Yes Plan: S/P right sided thoracentesis (750 cc) on 05/13/18. Pleural fluid analysis is consistent with transudative effusion likely related to patient's CHF. Chest x- ray after thoracentesis did show improvement in aeration of the right lower lung salazar. (4) CAD (coronary artery disease) Is this a current diagnosis for this admission?: Yes Plan: Stable. Continue aspirin, statin and beta steve. - Time Time Spent with patient: 15-24 minutes
[2018-05-29] MEDS: DIPHENHYDRAMINE HCL 25 MG CAPSULE PO PRN (19:56)
[2018-05-29] MEDS: ROPINIROLE HCL 0.25 MG TABLET PO SCH (22:40)
[2018-05-30] MEDS: ACETAMINOPHEN 325 MG TABLET PO SCH ×4 (07:45→23:37)
[2018-05-30] MEDS: GABAPENTIN 100 MG CAPSULE PO SCH ×4 (07:45→23:37)
[2018-05-30] MEDS: OMEGA-3 ACID ETHYL ESTERS 1 GM CAPSULE PO SCH ×2 (10:58→18:50)
[2018-05-30] MEDS: FUROSEMIDE 40 MG TABLET PO SCH (10:58)
[2018-05-30] MEDS: ASPIRIN 81 MG TABLET, CHEWABLE PO SCH (10:59)
[2018-05-30] MEDS: DOCUSATE SODIUM 100 MG CAPSULE PO SCH ×2 (11:00→18:51)
[2018-05-30] MEDS: CARVEDILOL 3.125 MG TABLET PO SCH ×2 (11:00→21:04)
[2018-05-30] MEDS: CYCLOSPORINE 0.05% OPH EMULSIO 0.4 ML DROPERETTE OU SCH (11:01)
[2018-05-30] MEDS: DIGOXIN 0.125 MG TABLET PO SCH (11:01)
[2018-05-30] MEDS: POLYVINYL ALCOHOL 1.4% OPH SOLN 15 ML OP SCH ×4 (11:02→21:05)
[2018-05-30] MEDS: ENOXAPARIN SODIUM INJ 30 MG/0.3 ML DISP.SYRIN SUBCUT SCH (11:03)
--- NOTE | 2018-05-30 18:00 | PDOC PROGRESS REPORT ---
Subjective Progress Note for:: 05/30/18 Subjective:: This is a 62-year-old male with a past medical history of CAD, prior CABG, COPD, diet-controlled DM, chronic systolic heart failure from ischemic cardiomyopathy with prior AICD placement, chronic respiratory failure on home O2, history of CVA with residual partial expressive aphasia who initially presented with increasing shortness of breath and leg swelling. Patient was admitted for CHF exacerbation. Patient has partial expressive aphasia (has some residual slurring and pauses) but is coherent and is able to converse with provider. He says his SOB is at baseline but he becomes short of breath when lying supine. He has been having persistent orthopnea. 05/13: Discussed in length again this morning with caregiver (Nuria) and patient. We discussed the need for thoracentesis again this morning including the indication due to his persistent orthopnea and significant bilateral pleural effusion. Also discussed the small risk of pneumothorax. Patient did agree undergo thoracentesis as he has been having patient orthopnea. Patient is oriented to person, place and situation. Also discussed with product planner on bedside about possible option to be transferred to a [facility] in [place] as patient is a his history of placement and disposition. He does not want to be transferred at this time and would prefer to stay here. 05/14: Patient does appear to have into capacity to make his own medical decisions. Patient was also evaluated by psych who deemed the same. Discussed in length again today about plan and disposition. Patient says he does not want to go to a shelter or rehab. He also does not want to talk about his CODE STATUS and says that he will "sort it out" later. Offered palliative care consult and he is receptive to it but not hospice. He says his breathing has improved after the thoracentesis. Speech Lang Path recommended BiPAP at home. Patient is resistant on using BiPAP at home but agrees to try it here while inpatient and see if he tolerates it. 05/15: Upon encounter this morning, patient was sleeping on the recliner. Patient says that his house is not fixed yet. He says he does not want to go to any of the surrounding SNF/rehab facilities at this time but is agreeable to being transferred to the [facility] in [place]. Convinced on trying the BiPAP and he says he will try wearing it. 05/16: No acute event overnight. Patient has complied with BIPAP. He says his breathing has slightly improved but still has orthopnea. Denies chest pain or dizziness. 05/17: Patient says his breathing has improved and he feels better today. He says he can use the BIPAP for 2 hrs but is willing to try to extend it to 3-4 hrs today. 05/18: Patient only used BIPAP for 1.5 hrs last night. Upon encounter, he does say that he breathes and feels better when on BIPAP. He was advised on increas ing his BIPAP use again today. He denies worsening SOB or chest pain. Still awaiting for update on transfer to [facility] in [facility]. Patient has remained stable with no acute issues in the interim and has just been waiting for placement. 05/26/18: He has been more complaint with BIPAP. He denies acute SOB and feels like he is at his baseline. 05/27/18: No acute event overnight. He did complaint of transient chest tightness this morning after he ate a big breakfast (ham and omelet). He says it only lasted for a few seconds. EKG was negative for acute changes. 05/28/18: No acute event. No acute symptoms, no chest pain or SOB. He is at his baseline. 05/29/18: No acute event. Patient denies any acute complaint. Updated by RN and product planner that patient's house will be condemned due to multiple issues. 05/30/17: No acute issues. Patient is still awaiting placement. Reason For Visit: CHF Physical Exam Vital Signs: Temp Pulse Resp BP Pulse Ox 97.6 F 94 30 H 110/65 100 05/30/18 08:56 05/30/18 08:56 05/30/18 14:20 05/30/18 08:56 05/30/18 08:56 Intake & Output 05/29/18 05/30/18 05/31/18 06:59 06:59 06:59 Intake Total 1042 952 Output Total 950 1210 Balance 92 -258 General appearance: PRESENT: no acute distress, well-developed, well-nourished Head exam: PRESENT: atraumatic, normocephalic Eye exam: PRESENT: conjunctiva pink, EOMI, PERRLA. ABSENT: scleral icterus Ear exam: PRESENT: normal external ear exam Mouth exam: PRESENT: moist, tongue midline Neck exam: ABSENT: carotid bruit, JVD, lymphadenopathy, thyromegaly Respiratory exam: PRESENT: decreased breath sounds - slightly dec BS on the bases, rhonchi. ABSENT: rales, wheezes Cardiovascular exam: PRESENT: RRR. ABSENT: diastolic murmur, rubs Pulses: PRESENT: normal dorsalis pedis pul GI/Abdominal exam: PRESENT: normal bowel sounds, soft. ABSENT: distended, guarding, mass, organolmegaly, rebound, tenderness Rectal exam: PRESENT: deferred Neurological exam: PRESENT: alert, awake, oriented to person, oriented to place, oriented to time, oriented to situation Results Laboratory Results: 05/25/18 08:35 05/25/18 08:35 05/11/18 05/11/18 05/11/18 09:35 09:35 09:35 Creatine Kinase 37 L Troponin I 0.071 NT-Pro-B Natriuret Pep 6800 H 05/11/18 05/11/18 05/12/18 12:30 19:00 01:06 Creatine Kinase Troponin I 0.067 0.064 0.050 NT-Pro-B Natriuret Pep 05/23/18 05/24/18 05/27/18 10:36 09:38 10:01 Creatine Kinase Troponin I 0.060 NT-Pro-B Natriuret Pep 819 889 Impressions: Thoracentesis Ultrasound 05/13/18 10:06 IMPRESSION: SUCCESSFUL THORACENTESIS USING ULTRASOUND GUIDANCE. Chest X-Ray 05/28/18 00:00 IMPRESSION: Stable small bilateral pleural effusions Massive cardiomegaly, stable. Assessment & Plan - Diagnosis (1) Acute and chronic respiratory failure with hypoxia Is this a current diagnosis for this admission?: Yes Plan: Secondary to CHF exacerbation. Continue BIPAP use 4 hrs/4 hrs off. (2) Acute on chronic systolic (congestive) heart failure Is this a current diagnosis for this admission?: Yes Plan: Combined systolic and diastolic biventricular failure. Continue Lasix 40 mg daily. Cardiology following. Echo shows an EF of 30-35%, grade 2 diastolic dysfunction and dilated left and right ventricular. Patient already has an AICD. Patient is not on UZAM inhibitor hence is not on optimal medical therapy. CHF medication regimen cannot be optimized as patient has had angioedema from captopril before. Both UZMA inhibitors and Entresto will be contraindicated to a history of ACEi-associated angioedema. Discussed with cardio and pulm. Recommendation for BIPAP at home/discharge for his biventricular heart failure and significant pulmonary hypertension. Continue Coreg. Aldactone was d/raghav due to his potassium trending up. Continue Lasix 40 mg daily. (3) Pleural effusion Is this a current diagnosis for this admission?: Yes Plan: S/P right sided thoracentesis (750 cc) on 05/13/18. Pleural fluid analysis is consistent with transudative effusion likely related to patient's CHF. Chest x- ray after thoracentesis did show improvement in aeration of the right lower lung salazar. (4) CAD (coronary artery disease) Is this a current diagnosis for this admission?: Yes Plan: Stable. Continue aspirin, statin and beta steve. - Time Time Spent with patient: 15-24 minutes
[2018-05-30] MEDS: ROPINIROLE HCL 0.25 MG TABLET PO SCH (21:04)
[2018-05-31] MEDS: METHYL SALICYLATE/MENTHOL BALM 29 GM TP PRN (00:36)
[2018-05-31] MEDS: ACETAMINOPHEN 325 MG TABLET PO SCH ×3 (07:58→17:51)
[2018-05-31] MEDS: GABAPENTIN 100 MG CAPSULE PO SCH ×3 (07:58→17:51)
[2018-05-31] MEDS: FUROSEMIDE 40 MG TABLET PO SCH (09:16)
[2018-05-31] MEDS: DOCUSATE SODIUM 100 MG CAPSULE PO SCH ×2 (09:16→17:50)
[2018-05-31] MEDS: ASPIRIN 81 MG TABLET, CHEWABLE PO SCH (09:16)
[2018-05-31] MEDS: ENOXAPARIN SODIUM INJ 30 MG/0.3 ML DISP.SYRIN SUBCUT SCH (09:16)
[2018-05-31] MEDS: OMEGA-3 ACID ETHYL ESTERS 1 GM CAPSULE PO SCH ×2 (09:16→17:50)
[2018-05-31] MEDS: CARVEDILOL 3.125 MG TABLET PO SCH ×2 (09:18→21:02)
[2018-05-31] MEDS: DIGOXIN 0.125 MG TABLET PO SCH (09:19)
[2018-05-31] MEDS: CYCLOSPORINE 0.05% OPH EMULSIO 0.4 ML DROPERETTE OU SCH (09:19)
[2018-05-31] MEDS: POLYVINYL ALCOHOL 1.4% OPH SOLN 15 ML OP SCH ×4 (09:19→21:04)
[2018-05-31] MEDS: TRAMADOL HCL 50 MG TABLET PO PRN ×2 (11:05→17:54)
--- NOTE | 2018-05-31 17:15 | PDOC PROGRESS REPORT ---
Subjective Progress Note for:: 05/31/18 Subjective:: This is a 62-year-old male with a past medical history of CAD, prior CABG, COPD, diet-controlled DM, chronic systolic heart failure from ischemic cardiomyopathy with prior AICD placement, chronic respiratory failure on home O2, history of CVA with residual partial expressive aphasia who initially presented with increasing shortness of breath and leg swelling. Patient was admitted for CHF exacerbation. Patient has partial expressive aphasia (has some residual slurring and pauses) but is coherent and is able to converse with provider. He says his SOB is at baseline but he becomes short of breath when lying supine. He has been having persistent orthopnea. 05/13: Discussed in length again this morning with caregiver (Nuria) and patient. We discussed the need for thoracentesis again this morning including the indication due to his persistent orthopnea and significant bilateral pleural effusion. Also discussed the small risk of pneumothorax. Patient did agree undergo thoracentesis as he has been having patient orthopnea. Patient is oriented to person, place and situation. Also discussed with assortment planner on bedside about possible option to be transferred to a [facility] in [place] as patient is a his history of placement and disposition. He does not want to be transferred at this time and would prefer to stay here. 05/14: Patient does appear to have into capacity to make his own medical decisions. Patient was also evaluated by psych who deemed the same. Discussed in length again today about plan and disposition. Patient says he does not want to go to a snf or rehab. He also does not want to talk about his CODE STATUS and says that he will "sort it out" later. Offered palliative care consult and he is receptive to it but not hospice. He says his breathing has improved after the thoracentesis. Information And Referral Director recommended BiPAP at home. Patient is resistant on using BiPAP at home but agrees to try it here while inpatient and see if he tolerates it. 05/15: Upon encounter this morning, patient was sleeping on the recliner. Patient says that his house is not fixed yet. He says he does not want to go to any of the surrounding SNF/rehab facilities at this time but is agreeable to being transferred to the [facility] [address] in [place]. Convinced on trying the BiPAP and he says he will try wearing it. 05/16: No acute event overnight. Patient has complied with BIPAP. He says his breathing has slightly improved but still has orthopnea. Denies chest pain or dizziness. 05/17: Patient says his breathing has improved and he feels better today. He says he can use the BIPAP for 2 hrs but is willing to try to extend it to 3-4 hrs today. 05/18: Patient only used BIPAP for 1.5 hrs last night. Upon encounter, he does say that he breathes and feels better when on BIPAP. He was advised on increas ing his BIPAP use again today. He denies worsening SOB or chest pain. Still awaiting for update on transfer to [place] the in [facility]. Patient has remained stable with no acute issues in the interim and has just been waiting for placement. 05/26/18: He has been more complaint with BIPAP. He denies acute SOB and feels like he is at his baseline. 05/27/18: No acute event overnight. He did complaint of transient chest tightness this morning after he ate a big breakfast (ham and omelet). He says it only lasted for a few seconds. EKG was negative for acute changes. 05/28/18: No acute event. No acute symptoms, no chest pain or SOB. He is at his baseline. 05/29/18: No acute event. Patient denies any acute complaint. Updated by RN and assortment planner that patient's house will be condemned due to multiple issues. 05/30/18: No acute issues. Patient is still awaiting placement. 05/31/18: No acute event overnight. Patient is still awaiting placement. Discussed with Eryn on bedside, patient's sample supervisor who says she is getting her new house this friday and may be able to have patient live with her. Reason For Visit: CHF Physical Exam Vital Signs: Temp Pulse Resp BP Pulse Ox 98.3 F 109 H 17 110/60 100 05/31/18 12:09 05/31/18 12:09 05/31/18 12:09 05/31/18 12:09 05/31/18 12:09 Intake & Output 05/30/18 05/31/18 06/01/18 06:59 06:59 06:59 Intake Total 952 1570 472 Output Total 1210 2302 480 Balance -258 -732 -8 Weight 184 lb 1.376 oz General appearance: PRESENT: no acute distress, well-developed, well-nourished Head exam: PRESENT: atraumatic, normocephalic Eye exam: PRESENT: conjunctiva pink, EOMI, PERRLA. ABSENT: scleral icterus Ear exam: PRESENT: normal external ear exam Mouth exam: PRESENT: moist, tongue midline Neck exam: ABSENT: carotid bruit, JVD, lymphadenopathy, thyromegaly Respiratory exam: PRESENT: decreased breath sounds - slightly dec BS on the right base, rhonchi. ABSENT: rales, wheezes Cardiovascular exam: ABSENT: bradycardia, irregular rhythm Pulses: PRESENT: normal dorsalis pedis pul GI/Abdominal exam: PRESENT: normal bowel sounds, soft. ABSENT: distended, guarding, mass, organolmegaly, rebound, tenderness Rectal exam: PRESENT: deferred Neurological exam: PRESENT: alert, awake, oriented to person, oriented to place, oriented to time, oriented to situation, motor sensory deficit Results Laboratory Results: 05/25/18 08:35 05/25/18 08:35 05/11/18 05/11/18 05/11/18 09:35 09:35 09:35 Creatine Kinase 37 L Troponin I 0.071 NT-Pro-B Natriuret Pep 6800 H 05/11/18 05/11/18 05/12/18 12:30 19:00 01:06 Creatine Kinase Troponin I 0.067 0.064 0.050 NT-Pro-B Natriuret Pep 05/23/18 05/24/18 05/27/18 10:36 09:38 10:01 Creatine Kinase Troponin I 0.060 NT-Pro-B Natriuret Pep 819 889 Impressions: Thoracentesis Ultrasound 05/13/18 10:06 IMPRESSION: SUCCESSFUL THORACENTESIS USING ULTRASOUND GUIDANCE. Chest X-Ray 05/28/18 00:00 IMPRESSION: Stable small bilateral pleural effusions Massive cardiomegaly, stable. Assessment & Plan - Diagnosis (1) Acute and chronic respiratory failure with hypoxia Is this a current diagnosis for this admission?: Yes Plan: Secondary to CHF exacerbation. Continue BIPAP use 4 hrs/4 hrs off. (2) Acute on chronic systolic (congestive) heart failure Is this a current diagnosis for this admission?: Yes Plan: Combined systolic and diastolic biventricular failure. Continue Lasix 40 mg daily. Cardiology following. Echo shows an EF of 30-35%, grade 2 diastolic dysfunction and dilated left and right ventricular. Patient already has an AICD. Patient is not on UZMA inhibitor hence is not on optimal medical therapy. CHF medication regimen cannot be optimized as patient has had angioedema from captopril before. Both UZMA inhibitors and Entresto will be contraindicated to a history of ACEi-associated angioedema. Discussed with cardio and pulm. R ecommendation for BIPAP at home/discharge for his biventricular heart failure and significant pulmonary hypertension. Continue Coreg. Aldactone was d/raghav due to his potassium trending up. Will resume Aldactone and will reassess BMP. Continue Lasix 40 mg daily. (3) Pleural effusion Is this a current diagnosis for this admission?: Yes Plan: S/P right sided thoracentesis (750 cc) on 05/13/18. Pleural fluid analysis is consistent with transudative effusion likely related to patient's CHF. Chest x- ray after thoracentesis did show improvement in aeration of the right lower lung salazar. (4) CAD (coronary artery disease) Is this a current diagnosis for this admission?: Yes Plan: Stable. Continue aspirin, statin and beta steve. - Time Time Spent with patient: 15-24 minutes
[2018-05-31] MEDS ORDERED: SPIRONOLACTONE 25 MG TABLET PO ONE (19:30)
[2018-05-31] MEDS: ROPINIROLE HCL 0.25 MG TABLET PO SCH (21:02)
[2018-06-01] MEDS: GABAPENTIN 100 MG CAPSULE PO SCH ×5 (00:31→23:22)
[2018-06-01] MEDS: ACETAMINOPHEN 325 MG TABLET PO SCH ×4 (00:32→18:17)
[2018-06-01] MEDS: TRAMADOL HCL 50 MG TABLET PO PRN ×3 (00:32→18:15)
[2018-06-01] MEDS: DIPHENHYDRAMINE HCL 25 MG CAPSULE PO PRN ×2 (06:18→20:31)
[2018-06-01 06:58] LABS: ANION GAP 8 (5-19); BLOOD UREA NITROGEN 27 mg/dL (7-20); CALCIUM 8.9 mg/dL (8.4-10.2); CARBON DIOXIDE 32 mmol/L (22-30); CHLORIDE 100 mmol/L (98-107); GLUCOSE 122 mg/dL (75-110); POTASSIUM 4.8 mmol/L (3.6-5.0); SODIUM 140.3 mmol/L (137-145)
[2018-06-01] MEDS: OMEGA-3 ACID ETHYL ESTERS 1 GM CAPSULE PO SCH ×2 (10:28→18:17)
[2018-06-01] MEDS: FUROSEMIDE 40 MG TABLET PO SCH (10:29)
[2018-06-01] MEDS: DOCUSATE SODIUM 100 MG CAPSULE PO SCH ×2 (10:29→18:17)
[2018-06-01] MEDS: ASPIRIN 81 MG TABLET, CHEWABLE PO SCH (10:29)
[2018-06-01] MEDS: SPIRONOLACTONE 25 MG TABLET PO SCH (10:29)
[2018-06-01] MEDS: ENOXAPARIN SODIUM INJ 30 MG/0.3 ML DISP.SYRIN SUBCUT SCH (10:31)
[2018-06-01] MEDS: POLYVINYL ALCOHOL 1.4% OPH SOLN 15 ML OP SCH ×4 (10:31→23:29)
[2018-06-01] MEDS: CYCLOSPORINE 0.05% OPH EMULSIO 0.4 ML DROPERETTE OU SCH (10:32)
--- NOTE | 2018-06-01 10:45 | RADIOLOGY REPORT (SQ) ---
EXAM DESCRIPTION: CHEST SINGLE VIEW COMPLETED DATE/TIME: 06/01/2018 10:32 am REASON FOR STUDY: upright R pleural effusion COMPARISON: 12/30/2017 CT angio chest Chest films 05/13/2018, 05/17/2018, 05/28/2018 EXAM PARAMETERS: NUMBER OF VIEWS: One view. TECHNIQUE: Single frontal radiographic view of the chest acquired. RADIATION DOSE: NA LIMITATIONS: None. FINDINGS: LUNGS AND PLEURA: There is blunting of the right and left lateral costophrenic sulci from trace bilateral pleural effusions, similar compared to studies dating back to CT angio chest 12/30/2017 . No dense consolidation worrisome for pneumonia. No pneumothorax. MEDIASTINUM AND HILAR STRUCTURES: No masses. Contour normal. HEART AND VASCULAR STRUCTURES: Massive cardiomegaly unchanged BONES: Left-sided single lead pacemaker. Clips post right lobe thyroidectomy or right carotid endart erectomy. HARDWARE: None in the chest. OTHER: No other significant finding. IMPRESSION: Stable massive cardiomegaly and trace bilateral pleural effusions TECHNICAL DOCUMENTATION: JOB ID: [id number] [employer]- All Rights Reserved Reading location - IP/workstation name: [email or web address]
[2018-06-01] MEDS: CARVEDILOL 3.125 MG TABLET PO SCH ×2 (11:29→23:23)
[2018-06-01] MEDS: DIGOXIN 0.125 MG TABLET PO SCH (11:29)
--- NOTE | 2018-06-01 14:45 | PDOC PROGRESS REPORT ---
Subjective Progress Note for:: 06/01/18 Subjective:: This is a 62-year-old male with a past medical history of CAD, prior CABG, COPD, diet-controlled DM, chronic systolic heart failure from ischemic cardiomyopathy with prior AICD placement, chronic respiratory failure on home O2, history of CVA with residual partial expressive aphasia who initially presented with increasing shortness of breath and leg swelling. Patient was admitted for CHF exacerbation. Patient has partial expressive aphasia (has some residual slurring and pauses) but is coherent and is able to converse with provider. He says his SOB is at baseline but he becomes short of breath when lying supine. He has been having persistent orthopnea. 05/13: Discussed in length again this morning with caregiver (Nuria) and patient. We discussed the need for thoracentesis again this morning including the indication due to his persistent orthopnea and significant bilateral pleural effusion. Also discussed the small risk of pneumothorax. Patient did agree undergo thoracentesis as he has been having patient orthopnea. Patient is oriented to person, place and situation. Also discussed with resource management planner on bedside about possible option to be transferred to a [facility] in [place] as patient is a his history of placement and disposition. He does not want to be transferred at this time and would prefer to stay here. 05/14: Patient does appear to have into capacity to make his own medical decisions. Patient was also evaluated by psych who deemed the same. Discussed in length again today about plan and disposition. Patient says he does not want to go to a skilled nursing or rehab. He also does not want to talk about his CODE STATUS and says that he will "sort it out" later. Offered palliative care consult and he is receptive to it but not hospice. He says his breathing has improved after the thoracentesis. Environmental Safety Specialist recommended BiPAP at home. Patient is resistant on using BiPAP at home but agrees to try it here while inpatient and see if he tolerates it. 05/15: Upon encounter this morning, patient was sleeping on the recliner. Patient says that his house is not fixed yet. He says he does not want to go to any of the surrounding SNF/rehab facilities at this time but is agreeable to being transferred to the [facility] in [place]. Convinced on trying the BiPAP and he says he will try wearing it. 05/16: No acute event overnight. Patient has complied with BIPAP. He says his breathing has slightly improved but still has orthopnea. Denies chest pain or dizziness. 05/17: Patient says his breathing has improved and he feels better today. He says he can use the BIPAP for 2 hrs but is willing to try to extend it to 3-4 hrs today. 05/18: Patient only used BIPAP for 1.5 hrs last night. Upon encounter, he does say that he breathes and feels better when on BIPAP. He was advised on increas ing his BIPAP use again today. He denies worsening SOB or chest pain. Still awaiting for update on transfer to [place] the in [facility]. Patient has remained stable with no acute issues in the interim and has just been waiting for placement. 05/26/18: He has been more complaint with BIPAP. He denies acute SOB and feels like he is at his baseline. 05/27/18: No acute event overnight. He did complaint of transient chest tightness this morning after he ate a big breakfast (ham and omelet). He says it only lasted for a few seconds. EKG was negative for acute changes. 05/28/18: No acute event. No acute symptoms, no chest pain or SOB. He is at his baseline. 05/29/18: No acute event. Patient denies any acute complaint. Updated by RN and resource management planner that patient's house will be condemned due to multiple issues. 05/30/18: No acute issues. Patient is still awaiting placement. 05/31/18:Patient is still awaiting placement. Discussed with Eryn on bedside, patient's batchmaker who says she is getting her new house this friday and may be able to have patient live with her. 06/01/18: No acute issues. Plan to discharge patient to her batchmaker's new house later this week with home health. [employer] Tank Repairer says she is confident she is able to take care of him at her new house. Patient also prefers discussed disposition. Reason For Visit: CHF Physical Exam Vital Signs: Temp Pulse Resp BP Pulse Ox 98.1 F 100 20 108/69 100 06/01/18 10:47 06/01/18 10:47 06/01/18 10:47 06/01/18 10:47 06/01/18 10:47 Intake & Output 05/31/18 06/01/18 06/02/18 06:59 06:59 06:59 Intake Total 1570 1116 Output Total 2302 1170 Balance -732 -54 Weight 184 lb 1.376 oz General appearance: PRESENT: no acute distress, well-developed, well-nourished Head exam: PRESENT: atraumatic, normocephalic Eye exam: PRESENT: conjunctiva pink, EOMI, PERRLA. ABSENT: scleral icterus Ear exam: PRESENT: normal external ear exam Neck exam: ABSENT: carotid bruit, JVD, lymphadenopathy, thyromegaly Respiratory exam: PRESENT: decreased breath sounds - on the bases, unchanged, rhonchi. ABSENT: rales, wheezes Cardiovascular exam: PRESENT: RRR. ABSENT: diastolic murmur, rubs, systolic murmur Pulses: PRESENT: normal dorsalis pedis pul GI/Abdominal exam: PRESENT: normal bowel sounds, soft. ABSENT: distended, guarding, mass, organolmegaly, rebound, tenderness Rectal exam: PRESENT: deferred Extremities exam: PRESENT: +1 edema Neurological exam: PRESENT: alert, awake, oriented to person, oriented to place, oriented to time, oriented to situation Results Laboratory Results: 05/25/18 08:35 06/01/18 06:16 06/01/18 06:16 Sodium 140.3 Potassium 4.8 Chloride 100 Carbon Dioxide 32 H Anion Gap 8 BUN 27 H Creatinine 1.23 Est GFR ( Amer) > 60 Est GFR (Non-Af Amer) 59 L Glucose 122 H Calcium 8.9 05/11/18 05/11/18 05/11/18 09:35 09:35 09:35 Creatine Kinase 37 L Troponin I 0.071 NT-Pro-B Natriuret Pep 6800 H 05/11/18 05/11/18 05/12/18 12:30 19:00 01:06 Creatine Kinase Troponin I 0.067 0.064 0.050 NT-Pro-B Natriuret Pep 05/23/18 05/24/18 05/27/18 10:36 09:38 10:01 Creatine Kinase Troponin I 0.060 NT-Pro-B Natriuret Pep 819 889 Impressions: Thoracentesis Ultrasound 05/13/18 10:06 IMPRESSION: SUCCESSFUL THORACENTESIS USING ULTRASOUND GUIDANCE. Chest X-Ray 06/01/18 00:00 IMPRESSION: Stable massive cardiomegaly and trace bilateral pleural effusions Assessment & Plan - Diagnosis (1) Acute and chronic respiratory failure with hypoxia Is this a current diagnosis for this admission?: Yes Plan: Secondary to CHF exacerbation. Continue BIPAP use 4 hrs/4 hrs off. (2) Acute on chronic systolic (congestive) heart failure Is this a current diagnosis for this admission?: Yes Plan: Combined systolic and diastolic biventricular failure. Continue Lasix 40 mg daily. Cardiology following. Echo shows an EF of 30-35%, grade 2 diastolic dysfunction and dilated left and right ventricular. Patient already has an AICD. Patient is not on UZMA inhibitor hence is not on optimal medical therapy. CHF medication regimen cannot be optimized as patient has had angioedema from capto pril before. Both UZMA inhibitors and Entresto will be contraindicated to a history of ACEi-associated angioedema. Discussed with cardio and pulm. Recommendation for BIPAP at home/discharge for his biventricular heart failure and significant pulmonary hypertension. Continue Coreg. Aldactone was d/raghav due to his potassium trending up. Aldactone resumed. Continue Lasix 40 mg daily. (3) Pleural effusion Is this a current diagnosis for this admission?: Yes Plan: S/P right sided thoracentesis (750 cc) on 05/13/18. Pleural fluid analysis is consistent with transudative effusion likely related to patient's CHF. Chest x- ray after thoracentesis did show improvement in aeration of the right lower lung salazar. (4) CAD (coronary artery disease) Is this a current diagnosis for this admission?: Yes Plan: Stable. Continue aspirin, statin and beta steve. - Time Time Spent with patient: 25-34 minutes
[2018-06-01] MEDS: ROPINIROLE HCL 0.25 MG TABLET PO SCH (23:22)
[2018-06-02] MEDS: ACETAMINOPHEN 325 MG TABLET PO SCH ×5 (00:01→23:21)
[2018-06-02] MEDS: GABAPENTIN 100 MG CAPSULE PO SCH ×4 (08:08→23:21)
[2018-06-02] MEDS: SPIRONOLACTONE 25 MG TABLET PO SCH (09:14)
[2018-06-02] MEDS: OMEGA-3 ACID ETHYL ESTERS 1 GM CAPSULE PO SCH ×2 (09:14→17:24)
[2018-06-02] MEDS: DIPHENHYDRAMINE HCL 25 MG CAPSULE PO PRN ×2 (09:14→17:23)
[2018-06-02] MEDS: DOCUSATE SODIUM 100 MG CAPSULE PO SCH ×2 (09:15→17:24)
[2018-06-02] MEDS: CARVEDILOL 3.125 MG TABLET PO SCH ×2 (09:15→23:25)
[2018-06-02] MEDS: DIGOXIN 0.125 MG TABLET PO SCH (09:15)
[2018-06-02] MEDS: FUROSEMIDE 40 MG TABLET PO SCH (09:15)
[2018-06-02] MEDS: ASPIRIN 81 MG TABLET, CHEWABLE PO SCH (09:15)
[2018-06-02] MEDS: POLYVINYL ALCOHOL 1.4% OPH SOLN 15 ML OP SCH ×4 (09:16→23:25)
[2018-06-02] MEDS: ENOXAPARIN SODIUM INJ 30 MG/0.3 ML DISP.SYRIN SUBCUT SCH (09:16)
[2018-06-02] MEDS: CYCLOSPORINE 0.05% OPH EMULSIO 0.4 ML DROPERETTE OU SCH (09:20)
--- NOTE | 2018-06-02 16:52 | PDOC PROGRESS REPORT ---
Subjective Progress Note for:: 06/02/18 Subjective:: This is a 62-year-old male with a past medical history of CAD, prior CABG, COPD, diet-controlled DM, chronic systolic heart failure from ischemic cardiomyopathy with prior AICD placement, chronic respiratory failure on home O2, history of CVA with residual partial expressive aphasia who initially presented with increasing shortness of breath and leg swelling. Patient was admitted for CHF exacerbation. Patient has partial expressive aphasia (has some residual slurring and pauses) but is coherent and is able to converse with provider. He says his SOB is at baseline but he becomes short of breath when lying supine. He has been having persistent orthopnea. 05/13: Discussed in length again this morning with caregiver (Nuria) and patient. We discussed the need for thoracentesis again this morning including the indication due to his persistent orthopnea and significant bilateral pleural effusion. Also discussed the small risk of pneumothorax. Patient did agree undergo thoracentesis as he has been having patient orthopnea. Patient is oriented to person, place and situation. Also discussed with data processing systems project planner on bedside about possible option to be transferred to a [facility] in [place] as patient is a his history of placement and disposition. He does not want to be transferred at this time and would prefer to stay here. 05/14: Patient does appear to have into capacity to make his own medical decisions. Patient was also evaluated by psych who deemed the same. Discussed in length again today about plan and disposition. Patient says he does not want to go to a fdc or rehab. He also does not want to talk about his CODE STATUS and says that he will "sort it out" later. Offered palliative care consult and he is receptive to it but not hospice. He says his breathing has improved after the thoracentesis. Armature Connector recommended BiPAP at home. Patient is resistant on using BiPAP at home but agrees to try it here while inpatient and see if he tolerates it. 05/15: Upon encounter this morning, patient was sleeping on the recliner. Patient says that his house is not fixed yet. He says he does not want to go to any of the surrounding SNF/rehab facilities at this time but is agreeable to being transferred to the [facility] in [place]. Convinced on trying the BiPAP and he says he will try wearing it. 05/16: No acute event overnight. Patient has complied with BIPAP. He says his breathing has slightly improved but still has orthopnea. Denies chest pain or dizziness. 05/17: Patient says his breathing has improved and he feels better today. He says he can use the BIPAP for 2 hrs but is willing to try to extend it to 3-4 hrs today. 05/18: Patient only used BIPAP for 1.5 hrs last night. Upon encounter, he does say that he breathes and feels better when on BIPAP. He was advised on increa sing his BIPAP use again today. He denies worsening SOB or chest pain. Still awaiting for update on transfer to [facility] in [facility]. 05/19/2018-no acute events in the last 24 hours as per the patient he is using BiPAP 3-4 hours a day. He is comfortably in the chair on oxygen via nasal tom kurt. Denies any problems. Waiting for placement in [facility]. 05/20/2018-no acute events in the last 24 hours. Patient is on oxygen via nasal cannula walking in the room. Denies any complaints. Using BiPAP 4 hours a day. Patient is waiting for placement at [facility]. 05/21/2018 no acute events in the last 24 hours. Patient is complaining of pain in both arms. I am going to put him on Percocet 09/25/2024 every 8 as needed for pain. Patient is on 2 L nasal cannula pulse ox is 96%. He is using BiPAP 4 hours a day. 05/22/2018-no acute events over the last 24 hours. Patient is afebrile. Patient is complaining of dry skin and itching he wants some Benadryl. 05/23/2018 no acute events in the last 24 hours. His BiPAP requirements are decreased. Patient is afebrile. His pulse ox is 99% on 2 L. Notably sitting in the bed communicating okay. 05/24/2018 -no acute events in the last 24 hours. Patient pulse oxes 99% on 2 L. Is comfortably sleeping in his chair. Denies any complaints. 05/25/2018-no acute events in the last 24 hours. Pulse ox is 100% on 2 L. He is comfortable in the chair communicating very well. Denies any complaints. [facility] 05/26/18: He has been more complaint with BIPAP. He denies acute SOB and feels like he is at his baseline. 05/27/18: No acute event overnight. He did complaint of transient chest tightness this morning after he ate a big breakfast (ham and omelet). He says it only lasted for a few seconds. EKG was negative for acute changes. 05/28/18: No acute event. No acute symptoms, no chest pain or SOB. He is at his baseline. 05/29/18: No acute event. Patient denies any acute complaint. Updated by RN and data processing systems project planner that patient's house will be condemned due to multiple issues. 05/30/18: No acute issues. Patient is still awaiting placement. 05/31/18:Patient is still awaiting placement. Discussed with Eryn on bedside, patient's instant powder supervisor who says she is getting her new house this friday and may be able to have patient live with her. 06/01/18: No acute issues. Plan to discharge patient to her instant powder supervisor's new house later this week with home health. Recycling Attendant says she is confident she is able to take care of him at her new house. Patient also prefers discussed disposition. 06/02/2018-patient is afebrile no acute events in the last 24 hours patient waiting to go to caretakers home. Reason For Visit: CHF Physical Exam Vital Signs: Temp Pulse Resp BP Pulse Ox 98.0 F 100 19 96/59 L 97 06/01/18 20:05 06/01/18 20:05 06/02/18 13:50 06/01/18 20:05 06/02/18 13:50 Intake & Output 06/01/18 06/02/18 06/03/18 06:59 06:59 06:59 Intake Total 1116 1194 Output Total 3920 630 Balance -54 564 Weight 83.5 kg General appearance: PRESENT: no acute distress Head exam: PRESENT: atraumatic Eye exam: PRESENT: PERRLA Mouth exam: PRESENT: moist Neck exam: ABSENT: carotid bruit, JVD, lymphadenopathy, thyromegaly Respiratory exam: PRESENT: clear to auscultation rahul. ABSENT: rales, rhonchi, wheezes Cardiovascular exam: PRESENT: RRR. ABSENT: diastolic murmur, rubs, systolic murmur GI/Abdominal exam: PRESENT: normal bowel sounds, soft. ABSENT: distended, guarding, mass, organolmegaly, rebound, tenderness Extremities exam: PRESENT: full ROM. ABSENT: calf tenderness, clubbing, pedal edema Neurological exam: PRESENT: alert, awake, oriented to person, oriented to place, oriented to time, oriented to situation, CN II-XII grossly intact. ABSENT: motor sensory deficit Psychiatric exam: PRESENT: appropriate affect, normal mood. ABSENT: homicidal ideation, suicidal ideation Results Laboratory Results: 05/25/18 08:35 06/01/18 06:16 05/11/18 05/11/18 05/11/18 09:35 09:35 09:35 Creatine Kinase 37 L Troponin I 0.071 NT-Pro-B Natriuret Pep 6800 H 05/11/18 05/11/18 05/12/18 12:30 19:00 01:06 Creatine Kinase Troponin I 0.067 0.064 0.050 NT-Pro-B Natriuret Pep 05/23/18 05/24/18 05/27/18 10:36 09:38 10:01 Creatine Kinase Troponin I 0.060 NT-Pro-B Natriuret Pep 819 889 Impressions: Thoracentesis Ultrasound 05/13/18 10:06 IMPRESSION: SUCCESSFUL THORACENTESIS USING ULTRASOUND GUIDANCE. Chest X-Ray 06/01/18 00:00 IMPRESSION: Stable massive cardiomegaly and trace bilateral pleural effusions Assessment & Plan - Diagnosis (1) Acute and chronic respiratory failure with hypoxia Is this a current diagnosis for this admission?: Yes Plan: 05/19/2018 acute on chronic respiratory failure with hypoxia probably secondary to CHF exacerbation. He is on BiPAP for 3-4 hours/day. Plan is to continue the current management. 05/20/2018-patient was admitted for acute on chronic respiratory failure with hypoxia probably secondary to CHF exacerbation. He is using BiPAP 4 hours a day. No acute events in the last 24 hours. Plan is to continue the present management. 05/21/2018-patient is comfortably in the chair on 2 L oxygen via nasal cannula. Acute on chronic respiratory failure resolved with hypoxia resolved. Is awaiting for placement in [facility]. 05/22/2018-pulse ox on 2 L is 100% today. Patient is comfortably in the chair. Only complaint is his complaint of dry skin and itching. [facility] He is using BiPAP 3-4 hours a day. His acute on chronic respiratory failure with hypoxia probably secondary to CHF exacerbation. I am going to recheck his BMP tomorrow. Pt is not in fluid overload today. 05/23/2018 pulse ox on 2 L is 99% patient is able to walk in the hallway on 2 L oxygen without any problems. He did not have need to use the BiPAP in the last 24 hours. He has been BNP is around 820. no Signs of any fluid overload. Plan is to continue the present management. 05/24/2018 patient was admitted for acute on chronic respiratory failure with hypoxia hypoxia resolved. Patient is not on BiPAP anymore. Pulse ox is pulse ox is 91% on 2 L. Patient waiting for placement in [place]. 05/25/2018-2 L oxygen pulse ox 100% hypoxia with acute respiratory failure resolved patient is not using the BiPAP anymore. He is waiting for placement at [facility]. 06/02/2017-pulse ox on 2 L is 97% today. Using the BiPAP on and off. Waiting waiting to go to caretakers house probably on Friday. The meantime will contin ue the present management. (2) Acute on chronic systolic (congestive) heart failure Is this a current diagnosis for this admission?: Yes Plan: Combined systolic and diastolic biventricular failure. Continue Lasix 40 mg daily. Cardiology following. Echo shows an EF of 30-35%, grade 2 diastolic dysfunction and dilated left and right ventricular. Patient already has an AICD. Patient is not on UZMA inhibitor hence is not on optimal medical therapy. CHF medication regimen cannot be optimized as patient has had angioedema from captopril before. Both UZMA inhibitors and Entresto will be contraindicated to a history of ACEi-associated angioedema. Discussed with cardio and pulm. Recommendation for BIPAP at home/discharge for his biventricular heart failure and significant pulmonary hypertension. Continue Coreg and Aldactone. 05/16/18: Decreased Lasix to 40 mg IV daily from q12 due to alkalosis. 05/19/2018-patient has history of congestive heart failure. Which is combined systolic diastolic biventricular failure. Patient is on Lasix 40 mg IV twice daily. cardiology on board. EF is 30-35%. Grade 2 diastolic dysfunction and dilated left and right ventricular chambers. Patient has AICD. Patient is not on UZMA inhibitors because of history of angioedema. UZMA inhibitors and Entresto are not contraindicated because of the ACEi associated angioedema. Patient is also on Coreg and Aldactone. And [facility]. 05/20/2018-has a combined systolic diastolic biventricular failure. EF is 30- 35%. Echocardiogram shows grade 2 diastolic dysfunction and dilated left and right ventricular chambers. Patient has AICD. Patient is not on UZMA inhibitors because of history of angioedema. Stoped Aldactone today because potassium is 5.1. 05/21/2018-patient has history of congestive heart failure combined systolic diastolic biventricular failure with EF of 30-35%. Patient is allergic to UZMA inhibitors gives angioedema. Latest potassium is 5.1. We are going to check his potassium levels today. Yesterday I stopped his spironolactone and we stopped potassium supplementation. 05/22/2018-his latest potassium is 5.0 potassium supplementation was discontinued spironolactone was discontinued, has EF is 30-35%. Patient is not in fluid overload I am going to follow the patient regular basis. 05/23/2018-potassium level is 5.0 stable patient ejection fraction is 30-45%. Patient has combined systolic diastolic biventricular heart failure. He has AICD. And is to continue the present management. 05/24/2018-patient's has a biventricular systolic and diastolic heart failure with EF of 35-40%. Patient has AICD. He is on Lasix 40 IV daily I am going to switch her to 40 mg p.o. daily. 05/25/2018-patient is not in fluid overload chest was clear no pedal edema. He has biventricular systolic/diastolic heart failure with EF of 35-40%. He is on Lasix.Combined systolic and diastolic biventricular failure. Continue Lasix 40 mg daily. Cardiology following. Echo shows an EF of 30-35%, grade 2 diastolic dysfunction and dilated left and right ventricular. Patient already has an AICD. Patient is not on UZMA inhibitor hence is not on optimal medical therapy. CHF medication regimen cannot be optimized as patient has had angioedema from captopril before. Both UZMA inhibitors and Entresto will be contraindicated to a history of ACEi-associated angioedema. Discussed with cardio and pulm. Recommendation for BIPAP at home/discharge for his biventricular heart failure and significant pulmonary hypertension. Continue Coreg. Aldactone was d/raghav due to his potassium trending up. Aldactone resumed. Continue Lasix 40 mg daily. 06/02/2017-patient has combined systolic and diastolic biventricular failure he is on Lasix 40 mg p.o. daily and also on Aldactone. Patient is not in fluid overload. And is to continue the present management. (3) Pleural effusion Is this a current diagnosis for this admission?: Yes Plan: 05/19/2018-patient came in with a right-sided pleural effusion status post thoracentesis on 05/13/2018 with removal of 750 cc of fluid. Fluid analysis consistent with transudate. Which is likely secondary to CHF. Negative for infection. 05/20/2018-patient came in with right pleural effusion status post thoracentesis on 05/13/2018. The cultures are negative. 05/21/2018 status post thoracentesis of right pleural effusion 750 cc of fluid was removed. cultures Negative. 05/23/2018 during this hospital stay he had a right-sided thoracentesis. And 750 cc of fluid was removed. I am going to redo the chest x-ray today. 05/25/2018-status post right-sided thoracentesis. On examination decreased air entry at the right base. Probably persistent pleural effusion. 06/12/2017 status post right-sided thoracentesis with 750 cc of fluid removal on 05/13/2018. Pleural fluid analysis is consistent with transudate to effusion most likely secondary to patient's congestive heart failure. (4) CAD (coronary artery disease) Is this a current diagnosis for this admission?: Yes - Time Time Spent with patient: Less than 15 minutes Medications reviewed and adjusted accordingly: Yes Anticipated discharge: Home
[2018-06-02] MEDS: ROPINIROLE HCL 0.25 MG TABLET PO SCH (23:21)
[2018-06-03] MEDS: GABAPENTIN 100 MG CAPSULE PO SCH ×4 (08:02→23:06)
[2018-06-03] MEDS: ACETAMINOPHEN 325 MG TABLET PO SCH ×4 (08:02→23:06)
[2018-06-03] MEDS: DIPHENHYDRAMINE HCL 25 MG CAPSULE PO PRN ×2 (08:04→18:33)
[2018-06-03 08:19] LABS: ABSOLUTE BASOPHILS # (AUTO) 0.1 10^3/uL (0.0-0.2); ABSOLUTE EOSINOPHILS # (AUTO) 0.6 10^3/uL (0.0-0.6); ABSOLUTE LYMPHOCYTES (AUTO) 1.2 10^3/uL (0.5-4.7); BASOPHILS % (AUTO) 1.3 % (0-2); EOSINOPHILS % (AUTO) 9.9 % (0-6); HEMATOCRIT 37.5 % (37.9-51.0); HEMOGLOBIN 12.3 g/dL (13.5-17.0); LYMPHOCYTES % (AUTO) 20.4 % (13-45); MEAN CORPUSCULAR HEMOGLOBIN 27.8 pg (27.0-33.4); MEAN CORPUSCULAR HGB CONC 32.9 g/dL (32.0-36.0); MEAN CORPUSCULAR VOLUME 84 fl (80-97); MONOCYTES % (AUTO) 17.4 % (3-13); PLATELET COUNT 250 10^3/uL (150-450); RED BLOOD COUNT 4.44 10^6/uL (4.35-5.55); RED CELL DISTRIBUTION WIDTH 16.2 % (11.5-14.0); TOTAL CELLS COUNTED % (AUTO) 100 %; WHITE BLOOD COUNT 5.9 10^3/uL (4.0-10.5)
[2018-06-03 08:53] LABS: ALANINE AMINOTRANSFERASE 38 U/L (21-72); ALKALINE PHOSPHATASE 99 U/L (38-126); ANION GAP 10 (5-19); ASPARTATE AMINO TRANSFERASE 40 U/L (17-59); BILIRUBIN,DIRECT 0.1 mg/dL (0.0-0.4); BILIRUBIN,TOTAL 0.4 mg/dL (0.2-1.3); BLOOD UREA NITROGEN 29 mg/dL (7-20); CALCIUM 9.4 mg/dL (8.4-10.2); CARBON DIOXIDE 31 mmol/L (22-30); CHLORIDE 98 mmol/L (98-107); GLUCOSE 113 mg/dL (75-110); POTASSIUM 5.2 mmol/L (3.6-5.0); SODIUM 138.5 mmol/L (137-145); TOTAL PROTEIN 6.7 g/dL (6.3-8.2)
[2018-06-03] MEDS: OMEGA-3 ACID ETHYL ESTERS 1 GM CAPSULE PO SCH ×2 (10:29→18:31)
[2018-06-03] MEDS: CARVEDILOL 3.125 MG TABLET PO SCH ×2 (10:29→23:09)
[2018-06-03] MEDS: SPIRONOLACTONE 25 MG TABLET PO SCH (10:29)
[2018-06-03] MEDS: FUROSEMIDE 40 MG TABLET PO SCH (10:29)
[2018-06-03] MEDS: ENOXAPARIN SODIUM INJ 30 MG/0.3 ML DISP.SYRIN SUBCUT SCH (10:29)
[2018-06-03] MEDS: ASPIRIN 81 MG TABLET, CHEWABLE PO SCH (10:29)
[2018-06-03] MEDS: DIGOXIN 0.125 MG TABLET PO SCH (10:29)
[2018-06-03] MEDS: DOCUSATE SODIUM 100 MG CAPSULE PO SCH ×2 (10:29→18:31)
[2018-06-03] MEDS: POLYVINYL ALCOHOL 1.4% OPH SOLN 15 ML OP SCH ×4 (10:30→23:09)
[2018-06-03] MEDS: CYCLOSPORINE 0.05% OPH EMULSIO 0.4 ML DROPERETTE OU SCH (10:31)
--- NOTE | 2018-06-03 12:52 | PDOC PROGRESS REPORT ---
Subjective Progress Note for:: 06/03/18 Subjective:: This is a 62-year-old male with a past medical history of CAD, prior CABG, COPD, diet-controlled DM, chronic systolic heart failure from ischemic cardiomyopathy with prior AICD placement, chronic respiratory failure on home O2, history of CVA with residual partial expressive aphasia who initially presented with increasing shortness of breath and leg swelling. Patient was admitted for CHF exacerbation. Patient has partial expressive aphasia (has some residual slurring and pauses) but is coherent and is able to converse with provider. He says his SOB is at baseline but he becomes short of breath when lying supine. He has been having persistent orthopnea. 05/13: Discussed in length again this morning with caregiver (Nuria) and patient. We discussed the need for thoracentesis again this morning including the indication due to his persistent orthopnea and significant bilateral pleural effusion. Also discussed the small risk of pneumothorax. Patient did agree undergo thoracentesis as he has been having patient orthopnea. Patient is oriented to person, place and situation. Also discussed with asphalt mixing machine operator on bedside about possible option to be transferred to a [facility] in [place] as patient is a his history of placement and disposition. He does not want to be transferred at this time and would prefer to stay here. 05/14: Patient does appear to have into capacity to make his own medical decisions. Patient was also evaluated by psych who deemed the same. Discussed in length again today about plan and disposition. Patient says he does not want to go to a chcf or rehab. He also does not want to talk about his CODE STATUS and says that he will "sort it out" later. Offered palliative care consult and he is receptive to it but not hospice. He says his breathing has improved after the thoracentesis. Systems Test Analyst recommended BiPAP at home. Patient is resistant on using BiPAP at home but agrees to try it here while inpatient and see if he tolerates it. 05/15: Upon encounter this morning, patient was sleeping on the recliner. Patient says that his house is not fixed yet. He says he does not want to go to any of the surrounding SNF/rehab facilities at this time but is agreeable to being transferred to the [facility] in [place]. Convinced on trying the BiPAP and he says he will try wearing it. 05/16: No acute event overnight. Patient has complied with BIPAP. He says his breathing has slightly improved but still has orthopnea. Denies chest pain or dizziness. 05/17: Patient says his breathing has improved and he feels better today. He says he can use the BIPAP for 2 hrs but is willing to try to extend it to 3-4 hrs today. 05/18: Patient only used BIPAP for 1.5 hrs last night. Upon encounter, he does say that he breathes and feels better when on BIPAP. He was advised on increa sing his BIPAP use again today. He denies worsening SOB or chest pain. Still awaiting for update on transfer to [facility] in [facility]. 05/19/2018-no acute events in the last 24 hours as per the patient he is using BiPAP 3-4 hours a day. He is comfortably in the chair on oxygen via nasal tom kurt. Denies any problems. Waiting for placement in [facility]. 05/20/2018-no acute events in the last 24 hours. Patient is on oxygen via nasal cannula walking in the room. Denies any complaints. Using BiPAP 4 hours a day. Patient is waiting for placement at [facility]. 05/21/2018 no acute events in the last 24 hours. Patient is complaining of pain in both arms. I am going to put him on Percocet 09/25/2024 every 8 as needed for pain. Patient is on 2 L nasal cannula pulse ox is 96%. He is using BiPAP 4 hours a day. 05/22/2018-no acute events over the last 24 hours. Patient is afebrile. Patient is complaining of dry skin and itching he wants some Benadryl. 05/23/2018 no acute events in the last 24 hours. His BiPAP requirements are decreased. Patient is afebrile. His pulse ox is 99% on 2 L. Notably sitting in the bed communicating okay. 05/24/2018 -no acute events in the last 24 hours. Patient pulse oxes 99% on 2 L. Is comfortably sleeping in his chair. Denies any complaints. 05/25/2018-no acute events in the last 24 hours. Pulse ox is 100% on 2 L. He is comfortable in the chair communicating very well. Denies any complaints. [facility] 05/26/18: He has been more complaint with BIPAP. He denies acute SOB and feels like he is at his baseline. 05/27/18: No acute event overnight. He did complaint of transient chest tightness this morning after he ate a big breakfast (ham and omelet). He says it only lasted for a few seconds. EKG was negative for acute changes. 05/28/18: No acute event. No acute symptoms, no chest pain or SOB. He is at his baseline. 05/29/18: No acute event. Patient denies any acute complaint. Updated by RN and asphalt mixing machine operator that patient's house will be condemned due to multiple issues. 05/30/18: No acute issues. Patient is still awaiting placement. 05/31/18:Patient is still awaiting placement. Discussed with Eryn on bedside, patient's director of search engine marketing who says she is getting her new house this friday and may be able to have patient live with her. 06/01/18: No acute issues. Plan to discharge patient to her director of search engine marketing's new house later this week with home health. Cloth Shearer says she is confident she is able to take care of him at her new house. Patient also prefers discussed disposition. 06/02/2018-patient is afebrile no acute events in the last 24 hours patient waiting to go to caretakers home. 06/03/2018 no acute events in last 24 hours. Patient is comfortable in the chair talking to the family members on the phone. Denies any complaints. Reason For Visit: CHF Physical Exam Vital Signs: Temp Pulse Resp BP Pulse Ox 98.1 F 105 H 20 111/72 99 06/03/18 11:46 06/03/18 11:46 06/03/18 11:46 06/03/18 11:46 06/03/18 11:46 Intake & Output 06/02/18 06/03/18 06/04/18 06:59 06:59 06:59 Intake Total 1194 1480 Output Total 137 675 Balance 564 805 Weight 83.5 kg 83.5 kg General appearance: PRESENT: no acute distress Head exam: PRESENT: atraumatic Eye exam: PRESENT: PERRLA Mouth exam: PRESENT: moist Respiratory exam: PRESENT: clear to auscultation rahul. ABSENT: rales, rhonchi, wheezes Cardiovascular exam: PRESENT: RRR. ABSENT: diastolic murmur, rubs, systolic murmur GI/Abdominal exam: PRESENT: normal bowel sounds, soft. ABSENT: distended, guarding, mass, organolmegaly, rebound, tenderness Neurological exam: PRESENT: alert, awake, oriented to person, oriented to place, oriented to time, oriented to situation, CN II-XII grossly intact. ABSENT: motor sensory deficit Psychiatric exam: PRESENT: appropriate affect, normal mood. ABSENT: homicidal ideation, suicidal ideation Results Laboratory Results: 06/03/18 08:12 06/03/18 08:12 06/03/18 06/03/18 08:12 08:12 WBC 5.9 RBC 4.44 Hgb 12.3 L Hct 37.5 L MCV 84 MCH 27.8 MCHC 32.9 RDW 16.2 H Plt Count 250 Seg Neutrophils % 51.0 Lymphocytes % 20.4 Monocytes % 17.4 H Eosinophils % 9.9 H Basophils % 1.3 Absolute Neutrophils 3.0 Absolute Lymphocytes 1.2 Absolute Monocytes 1.0 Absolute Eosinophils 0.6 Absolute Basophils 0.1 Sodium 138.5 Potassium 5.2 H Chloride 98 Carbon Dioxide 31 H Anion Gap 10 BUN 29 H Creatinine 1.29 H Est GFR ( Amer) > 60 Est GFR (Non-Af Amer) 56 L Glucose 113 H Calcium 9.4 Magnesium 1.9 Total Bilirubin 0.4 AST 40 ALT 38 Alkaline Phosphatase 99 Total Protein 6.7 Albumin 4.0 05/11/18 05/11/18 05/11/18 09:35 09:35 09:35 Creatine Kinase 37 L Troponin I 0.071 NT-Pro-B Natriuret Pep 6800 H 05/11/18 05/11/18 05/12/18 12:30 19:00 01:06 Creatine Kinase Troponin I 0.067 0.064 0.050 NT-Pro-B Natriuret Pep 05/23/18 05/24/18 05/27/18 10:36 09:38 10:01 Creatine Kinase Troponin I 0.060 NT-Pro-B Natriuret Pep 819 889 06/03/18 08:12 Creatine Kinase Troponin I NT-Pro-B Natriuret Pep 1420 H Impressions: Thoracentesis Ultrasound 05/13/18 10:06 IMPRESSION: SUCCESSFUL THORACENTESIS USING ULTRASOUND GUIDANCE. Chest X-Ray 06/01/18 00:00 IMPRESSION: Stable massive cardiomegaly and trace bilateral pleural effusions Assessment & Plan - Diagnosis (1) Acute and chronic respiratory failure with hypoxia Is this a current diagnosis for this admission?: Yes Plan: 05/19/2018 acute on chronic respiratory failure with hypoxia probably secondary to CHF exacerbation. He is on BiPAP for 3-4 hours/day. Plan is to continue the current management. 05/20/2018-patient was admitted for acute on chronic respiratory failure with hypoxia probably secondary to CHF exacerbation. He is using BiPAP 4 hours a day. No acute events in the last 24 hours. Plan is to continue the present management. 05/21/2018-patient is comfortably in the chair on 2 L oxygen via nasal cannula. Acute on chronic respiratory failure resolved with hypoxia resolved. Is awai ting for placement in [facility]. 05/22/2018-pulse ox on 2 L is 100% today. Patient is comfortably in the chair. Only complaint is his complaint of dry skin and itching. [facility]. He is using BiPAP 3-4 hours a day. His acute on chronic respiratory failure with hypoxia probably secondary to CHF exacerbation. I am going to recheck his BMP tomorrow. Pt is not in fluid overload today. 05/23/2018 pulse ox on 2 L is 99% patient is able to walk in the hallway on 2 L oxygen without any problems. He did not have need to use the BiPAP in the last 24 hours. He has been BNP is around 820. no Signs of any fluid overload. Plan is to continue the present management. 05/24/2018 patient was admitted for acute on chronic respiratory failure with hypoxia hypoxia resolved. Patient is not on BiPAP anymore. Pulse ox is pulse ox is 91% on 2 L. Patient waiting for placement in [place]. 05/25/2018-2 L oxygen pulse ox 100% hypoxia with acute respiratory failure resol elias patient is not using the BiPAP anymore. He is waiting for placement at [facility]. 06/02/2017-pulse ox on 2 L is 97% today. Using the BiPAP on and off. Waiting waiting to go to caretakers house probably on Friday. The meantime will continue the present management. 06/03/2018-patient pulse ox is 99% on 2 L. He is using the BiPAP on and off. No complaints from the patient. [facility] (2) Acute on chronic systolic (congestive) heart failure Is this a current diagnosis for this admission?: Yes Plan: Combined systolic and diastolic biventricular failure. Continue Lasix 40 mg daily. Cardiology following. Echo shows an EF of 30-35%, grade 2 diastolic dysfunction and dilated left and right ventricular. Patient already has an AICD. Patient is not on UZMA inhibitor hence is not on optimal medical therapy. CHF medication regimen cannot be optimized as patient has had angioedema from captopril before. Both UZMA inhibitors and Entresto will be contraindicated to a history of ACEi-associated angioedema. Discussed with cardio and pulm. Recommendation for BIPAP at home/discharge for his biventricular heart failure and significant pulmonary hypertension. Continue Coreg and Aldactone. 05/16/18: Decreased Lasix to 40 mg IV daily from q12 due to alkalosis. 05/19/2018-patient has history of congestive heart failure. Which is combined systolic diastolic biventricular failure. Patient is on Lasix 40 mg IV twice daily. cardiology on board. EF is 30-35%. Grade 2 diastolic dysfunction and dilated left and right ventricular chambers. Patient has AICD. Patient is not on UZMA inhibitors because of history of angioedema. UZMA inhibitors and Entresto are not contraindicated because of the ACEi associated angioedema. Patient is also on Coreg and Aldactone. And is to discharge him to [place] on BiPAP. 05/20/2018-has a combined systolic diastolic biventricular failure. EF is 30- 35%. Echocardiogram shows grade 2 diastolic dysfunction and dilated left and ri ght ventricular chambers. Patient has AICD. Patient is not on UZMA inhibitors because of history of angioedema. Stoped Aldactone today because potassium is 5.1. 05/21/2018-patient has history of congestive heart failure combined systolic diastolic biventricular failure with EF of 30-35%. Patient is allergic to UZMA inhibitors gives angioedema. Latest potassium is 5.1. We are going to check his potassium levels today. Yesterday I stopped his spironolactone and we stopped potassium supplementation. 05/22/2018-his latest potassium is 5.0 potassium supplementation was discontinued spironolactone was discontinued, has EF is 30-35%. Patient is not in fluid overload I am going to follow the patient regular basis. 05/23/2018-potassium level is 5.0 stable patient ejection fraction is 30-45%. Patient has combined systolic diastolic biventricular heart failure. He has AICD. And is to continue the present management. 05/24/2018-patient's has a biventricular systolic and diastolic heart failure with EF of 35-40%. Patient has AICD. He is on Lasix 40 IV daily I am going to switch her to 40 mg p.o. daily. 05/25/2018-patient is not in fluid overload chest was clear no pedal edema. He has biventricular systolic/diastolic heart failure with EF of 35-40%. He is on Lasix.Combined systolic and diastolic biventricular failure. Continue Lasix 40 mg daily. Cardiology following. Echo shows an EF of 30-35%, grade 2 diastolic dysfunction and dilated left and right ventricular. Patient already has an AICD. Patient is not on UZMA inhibitor hence is not on optimal medical therapy. CHF medication regimen cannot be optimized as patient has had angioedema from captopril before. Both UZMA inhibitors and Entresto will be contraindicated to a history of ACEi-associated angioedema. Discussed with cardio and pulm. Recommendation for BIPAP at home/discharge for his biventricular heart failure and significant pulmonary hypertension. Continue Coreg. Aldactone was d/raghav due to his potassium trending up. Aldactone resumed. Continue Lasix 40 mg daily. 06/02/2017-patient has combined systolic and diastolic biventricular failure he is on Lasix 40 mg p.o. daily and also on Aldactone. Patient is not in fluid overload. And is to continue the present management. 06/03/2017 patient has history of combined systolic diastolic biventricular failure on Lasix 40 mg p.o. daily and is also on Aldactone potassium levels going back up again it was 5.2 today I am going to stop the Aldactone and and follow the potassium levels. (3) Pleural effusion Is this a current diagnosis for this admission?: Yes (4) CAD (coronary artery disease) Is this a current diagnosis for this admission?: Yes Plan: 05/19/2018 patient has history of coronary artery disease. No complaints of any chest pains in the last 24-48 hours. Patient is on statins, aspirin, beta- blockers. Plan is to continue the present management. 05/20/2018 patient history of coronary artery disease. No complaints of any chest pains during the hospital stay. 05/21/2018 plan is to continue the current management. 05/22/2018 patient is on statins aspirin and beta-blockers no complaints of chest pain. Plan is to continue the present management. 05/23/2018-plan is to continue the present management patient is asymptomatic. 09/22/2017-patient has history of coronary artery disease, no complaints of chest pain during the hospital stay. 06/03/2018-patient has history of coronary artery disease no complaints of chest pain during the hospital stay. - Time Time Spent with patient: 15-24 minutes Medications reviewed and adjusted accordingly: Yes Anticipated discharge: Home with Homehealth
[2018-06-03] MEDS: ROPINIROLE HCL 0.25 MG TABLET PO SCH (23:07)
[2018-06-03] MEDS: INSULIN LISPRO 100 UNIT/ML 3 ML VIAL SUBCUT PRN (23:08)
[2018-06-04] MEDS: GABAPENTIN 100 MG CAPSULE PO SCH ×4 (05:02→22:58)
[2018-06-04] MEDS: ACETAMINOPHEN 325 MG TABLET PO SCH ×4 (05:02→23:02)
[2018-06-04] MEDS: POLYVINYL ALCOHOL 1.4% OPH SOLN 15 ML OP SCH ×4 (09:50→23:03)
[2018-06-04] MEDS: CARVEDILOL 3.125 MG TABLET PO SCH ×2 (09:54→23:05)
[2018-06-04] MEDS: DOCUSATE SODIUM 100 MG CAPSULE PO SCH ×2 (09:54→17:46)
[2018-06-04] MEDS: SPIRONOLACTONE 25 MG TABLET PO SCH (09:54)
[2018-06-04] MEDS: ASPIRIN 81 MG TABLET, CHEWABLE PO SCH (09:54)
[2018-06-04] MEDS: CYCLOSPORINE 0.05% OPH EMULSIO 0.4 ML DROPERETTE OU SCH (09:55)
[2018-06-04] MEDS: OMEGA-3 ACID ETHYL ESTERS 1 GM CAPSULE PO SCH ×2 (09:55→17:46)
[2018-06-04] MEDS: DIGOXIN 0.125 MG TABLET PO SCH (09:55)
[2018-06-04] MEDS: FUROSEMIDE 40 MG TABLET PO SCH (09:55)
[2018-06-04] MEDS: ENOXAPARIN SODIUM INJ 30 MG/0.3 ML DISP.SYRIN SUBCUT SCH (10:01)
--- NOTE | 2018-06-04 12:01 | PDOC PROGRESS REPORT ---
Subjective Progress Note for:: 06/04/18 Subjective:: This is a 62-year-old male with a past medical history of CAD, prior CABG, COPD, diet-controlled DM, chronic systolic heart failure from ischemic cardiomyopathy with prior AICD placement, chronic respiratory failure on home O2, history of CVA with residual partial expressive aphasia who initially presented with increasing shortness of breath and leg swelling. Patient was admitted for CHF exacerbation. Patient has partial expressive aphasia (has some residual slurring and pauses) but is coherent and is able to converse with provider. He says his SOB is at baseline but he becomes short of breath when lying supine. He has been having persistent orthopnea. 05/13: Discussed in length again this morning with caregiver (Nuria) and patient. We discussed the need for thoracentesis again this morning including the indication due to his persistent orthopnea and significant bilateral pleural effusion. Also discussed the small risk of pneumothorax. Patient did agree undergo thoracentesis as he has been having patient orthopnea. Patient is oriented to person, place and situation. Also discussed with facilities planner on bedside about possible option to be transferred to a [facility] in [place] as patient is a his history of placement and disposition. He does not want to be transferred at this time and would prefer to stay here. 05/14: Patient does appear to have into capacity to make his own medical decisions. Patient was also evaluated by psych who deemed the same. Discussed in length again today about plan and disposition. Patient says he does not want to go to a [facility] or rehab. He also does not want to talk about his CODE STATUS and says that he will "sort it out" later. Offered palliative care consult and he is receptive to it but not hospice. He says his breathing has improved after the thoracentesis. Chief Catalyst Operator recommended BiPAP at home. Patient is resistant on using BiPAP at home but agrees to try it here while inpatient and see if he tolerates it. 05/15: Upon encounter this morning, patient was sleeping on the recliner. Patient says that his house is not fixed yet. He says he does not want to go to any of the surrounding SNF/rehab facilities at this time but is agreeable to being transferred to the [facility] in [place]. Convinced on trying the BiPAP and he says he will try wearing it. 05/16: No acute event overnight. Patient has complied with BIPAP. He says his breathing has slightly improved but still has orthopnea. Denies chest pain or dizziness. 05/17: Patient says his breathing has improved and he feels better today. He says he can use the BIPAP for 2 hrs but is willing to try to extend it to 3-4 hrs today. 05/18: Patient only used BIPAP for 1.5 hrs last night. Upon encounter, he does say that he breathes and feels better when on BIPAP. He was advised on increa sing his BIPAP use again today. He denies worsening SOB or chest pain. Still awaiting for update on transfer to [facility] in [facility]. 05/19/2018-no acute events in the last 24 hours as per the patient he is using BiPAP 3-4 hours a day. He is comfortably in the chair on oxygen via nasal tom kurt. Denies any problems. Waiting for placement in [facility]. 05/20/2018-no acute events in the last 24 hours. Patient is on oxygen via nasal cannula walking in the room. Denies any complaints. Using BiPAP 4 hours a day. Patient is waiting for placement at [facility]. 05/21/2018 no acute events in the last 24 hours. Patient is complaining of pain in both arms. I am going to put him on Percocet 09/25/2024 every 8 as needed for pain. Patient is on 2 L nasal cannula pulse ox is 96%. He is using BiPAP 4 hours a day. 05/22/2018-no acute events over the last 24 hours. Patient is afebrile. Patient is complaining of dry skin and itching he wants some Benadryl. 05/23/2018 no acute events in the last 24 hours. His BiPAP requirements are decreased. Patient is afebrile. His pulse ox is 99% on 2 L. Notably sitting in the bed communicating okay. 05/24/2018 -no acute events in the last 24 hours. Patient pulse oxes 99% on 2 L. Is comfortably sleeping in his chair. Denies any complaints. 05/25/2018-no acute events in the last 24 hours. Pulse ox is 100% on 2 L. He is comfortable in the chair communicating very well. Denies any complaints. [facility] 05/26/18: He has been more complaint with BIPAP. He denies acute SOB and feels like he is at his baseline. 05/27/18: No acute event overnight. He did complaint of transient chest tightness this morning after he ate a big breakfast (ham and omelet). He says it only lasted for a few seconds. EKG was negative for acute changes. 05/28/18: No acute event. No acute symptoms, no chest pain or SOB. He is at his baseline. 05/29/18: No acute event. Patient denies any acute complaint. Updated by RN and facilities planner that patient's house will be condemned due to multiple issues. 05/30/18: No acute issues. Patient is still awaiting placement. 05/31/18:Patient is still awaiting placement. 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 06/01/18: No acute issues. Plan to discharge patient to her drag car racer's new house later this week with home health. Sock Mender says she is confident she is able to take care of him at her new house. Patient also prefers discussed disposition. 06/02/2018-patient is afebrile no acute events in the last 24 hours patient waiting to go to caretakers home. 06/03/2018 no acute events in last 24 hours. Patient is comfortable in the chair talking to the family members on the phone. Denies any complaints. 06/04/2018-no acute events in the last 24 hrs. afebrile .pulse ox 98% on 2lts. Reason For Visit: CHF Physical Exam Vital Signs: Temp Pulse Resp BP Pulse Ox 97.9 F 97 16 101/61 100 06/03/18 19:48 06/03/18 19:48 06/03/18 19:48 06/03/18 19:48 06/03/18 19:48 Intake & Output 06/03/18 06/04/18 06/05/18 06:59 06:59 06:59 Intake Total 1480 1390 Output Total 675 1525 Balance 805 -135 Weight 83.5 kg 83.5 kg General appearance: PRESENT: no acute distress Head exam: PRESENT: atraumatic Eye exam: PRESENT: PERRLA Mouth exam: PRESENT: moist, tongue midline Respiratory exam: PRESENT: clear to auscultation rahul. ABSENT: rales, rhonchi, wheezes Cardiovascular exam: PRESENT: RRR. ABSENT: diastolic murmur, rubs, systolic murmur GI/Abdominal exam: PRESENT: normal bowel sounds, soft. ABSENT: distended, guarding, mass, organolmegaly, rebound, tenderness Extremities exam: PRESENT: full ROM. ABSENT: calf tenderness, clubbing, pedal edema Neurological exam: PRESENT: alert, awake, oriented to person, oriented to place, oriented to time, oriented to situation, CN II-XII grossly intact. ABSENT: motor sensory deficit Psychiatric exam: PRESENT: appropriate affect, normal mood. ABSENT: homicidal ideation, suicidal ideation Results Laboratory Results: 06/03/18 08:12 06/03/18 08:12 05/11/18 05/11/18 05/11/18 09:35 09:35 09:35 Creatine Kinase 37 L Troponin I 0.071 NT-Pro-B Natriuret Pep 6800 H 05/11/18 05/11/18 05/12/18 12:30 19:00 01:06 Creatine Kinase Troponin I 0.067 0.064 0.050 NT-Pro-B Natriuret Pep 05/23/18 05/24/18 05/27/18 10:36 09:38 10:01 Creatine Kinase Troponin I 0.060 NT-Pro-B Natriuret Pep 819 889 06/03/18 08:12 Creatine Kinase Troponin I NT-Pro-B Natriuret Pep 1420 H Impressions: Thoracentesis Ultrasound 05/13/18 10:06 IMPRESSION: SUCCESSFUL THORACENTESIS USING ULTRASOUND GUIDANCE. Chest X-Ray 06/01/18 00:00 IMPRESSION: Stable massive cardiomegaly and trace bilateral pleural effusions Assessment & Plan - Diagnosis (1) Acute and chronic respiratory failure with hypoxia Is this a current diagnosis for this admission?: Yes Plan: 05/19/2018 acute on chronic respiratory failure with hypoxia probably secondary to CHF exacerbation. He is on BiPAP for 3-4 hours/day. Plan is to continue the current management. 05/20/2018-patient was admitted for acute on chronic respiratory failure with hypoxia probably secondary to CHF exacerbation. He is using BiPAP 4 hours a day. No acute events in the last 24 hours. Plan is to continue the present management. 05/21/2018-patient is comfortably in the chair on 2 L oxygen via nasal cannula. Acute on chronic respiratory failure resolved with hypoxia resolved. Is await ing for placement in [facility]. 05/22/2018-pulse ox on 2 L is 100% today. Patient is comfortably in the chair. Only complaint is his complaint of dry skin and itching. [facility] He is using BiPAP 3-4 hours a day. His acute on chronic respiratory failure with hypoxia probably secondary to CHF exacerbation. I am going to recheck his BMP tomorrow. Pt is not in fluid overload today. 05/23/2018 pulse ox on 2 L is 99% patient is able to walk in the hallway on 2 L oxygen without any problems. He did not have need to use the BiPAP in the last 24 hours. He has been BNP is around 820. no Signs of any fluid overload. Plan is to continue the present management. 05/24/2018 patient was admitted for acute on chronic respiratory failure with hypoxia hypoxia resolved. Patient is not on BiPAP anymore. Pulse ox is pulse ox is 91% on 2 L. Patient waiting for placement [place]. 05/25/2018-2 L oxygen pulse ox 100% hypoxia with acute respiratory failure resolved patient is not using the BiPAP anymore. He is waiting for placement at [facility]. 06/02/2017-pulse ox on 2 L is 97% today. Using the BiPAP on and off. Waiting waiting to go to [facility] probably on Friday. The meantime will continue the present management. 06/03/2018-patient pulse ox is 99% on 2 L. He is using the BiPAP on and off. No complaints from the patient. Plan [facility]. 06/04/2018-pulse ox is 100% on 2lts.using BIPAP on and off. no complaints. comfortable in chair eating lunch. (2) Acute on chronic systolic (congestive) heart failure Is this a current diagnosis for this admission?: Yes Plan: Combined systolic and diastolic biventricular failure. Continue Lasix 40 mg daily. Cardiology following. Echo shows an EF of 30-35%, grade 2 diastolic dysfunction and dilated left and right ventricular. Patient already has an AICD. Patient is not on UZMA inhibitor hence is not on optimal medical therapy. CHF medication regimen cannot be optimized as patient has had angioedema from captopril before. Both UZMA inhibitors and Entresto will be contraindicated to a history of ACEi-associated angioedema. Discussed with cardio and pulm. Recommendation for BIPAP at home/discharge for his biventricular heart failure and significant pulmonary hypertension. Continue Coreg and Aldactone. 05/16/18: Decreased Lasix to 40 mg IV daily from q12 due to alkalosis. 05/19/2018-patient has history of congestive heart failure. Which is combined systolic diastolic biventricular failure. Patient is on Lasix 40 mg IV twice daily. cardiology on board. EF is 30-35%. Grade 2 diastolic dysfunction and dilated left and right ventricular chambers. Patient has AICD. Patient is not on UZMA inhibitors because of history of angioedema. UZMA inhibitors and Entresto are not contraindicated because of the ACEi associated angioedema. Patient is also on Coreg and Aldactone. And is to [place] him [place]. 05/20/2018-has a combined systolic diastolic biventricular failure. EF is 30- 35%. Echocardiogram shows grade 2 diastolic dysfunction and dilated left and right ventricular chambers. Patient has AICD. Patient is not on UZMA inhibitors because of history of angioedema. Stoped Aldactone today because potassium is 5.1. 05/21/2018-patient has history of congestive heart failure combined systolic diastolic biventricular failure with EF of 30-35%. Patient is allergic to UZMA inhibitors gives angioedema. Latest potassium is 5.1. We are going to check his potassium levels today. Yesterday I stopped his spironolactone and we stopped potassium supplementation. 05/22/2018-his latest potassium is 5.0 potassium supplementation was discontinue d spironolactone was discontinued, has EF is 30-35%. Patient is not in fluid overload I am going to follow the patient regular basis. 05/23/2018-potassium level is 5.0 stable patient ejection fraction is 30-45%. Patient has combined systolic diastolic biventricular heart failure. He has AICD. And is to continue the present management. 05/24/2018-patient's has a biventricular systolic and diastolic heart failure with EF of 35-40%. Patient has AICD. He is on Lasix 40 IV daily I am going to switch her to 40 mg p.o. daily. 05/25/2018-patient is not in fluid overload chest was clear no pedal edema. He has biventricular systolic/diastolic heart failure with EF of 35-40%. He is on Lasix.Combined systolic and diastolic biventricular failure. Continue Lasix 40 mg daily. Cardiology following. Echo shows an EF of 30-35%, grade 2 diastolic dysfunction and dilated left and right ventricular. Patient already has an AICD. Patient is not on UZMA inhibitor hence is not on optimal medical therapy. CHF medication regimen cannot be optimized as patient has had angioedema from captopril before. Both UZMA inhibitors and Entresto will be contraindicated to a history of ACEi-associated angioedema. Discussed with cardio and pulm. Recommendation for BIPAP at home/discharge for his biventricular heart failure and significant pulmonary hypertension. Continue Coreg. Aldactone was d/raghav due to his potassium trending up. Aldactone resumed. Continue Lasix 40 mg daily. 06/02/2017-patient has combined systolic and diastolic biventricular failure he is on Lasix 40 mg p.o. daily and also on Aldactone. Patient is not in fluid overload. And is to continue the present management. 06/03/2017 patient has history of combined systolic diastolic biventricular failure on Lasix 40 mg p.o. daily and is also on Aldactone potassium levels going back up again it was 5.2 today I am going to stop the Aldactone and and follow the potassium levels. 06/04/2018-pt is not in fluid overload. plan to continue present treatment. (3) Pleural effusion Is this a current diagnosis for this admission?: Yes (4) CAD (coronary artery disease) Is this a current diagnosis for this admission?: Yes Plan: 05/19/2018 patient has history of coronary artery disease. No complaints of any chest pains in the last 24-48 hours. Patient is on statins, aspirin, beta- blockers. Plan is to continue the present management. 05/20/2018 patient history of coronary artery disease. No complaints of any ch est pains during the hospital stay. 05/21/2018 plan is to continue the current management. 05/22/2018 patient is on statins aspirin and beta-blockers no complaints of chest pain. Plan is to continue the present management. 05/23/2018-plan is to continue the present management patient is asymptomatic. 09/22/2017-patient has history of coronary artery disease, no complaints of chest pain during the hospital stay. 06/03/2018-patient has history of coronary artery disease no complaints of chest pain during the hospital stay. 06/04/2018- to continue present rx - Time Time Spent with patient: Less than 15 minutes Medications reviewed and adjusted accordingly: Yes Anticipated discharge: Home, Home with Homehealth
[2018-06-04] MEDS: INSULIN LISPRO 100 UNIT/ML 3 ML VIAL SUBCUT PRN (12:38)
[2018-06-04] MEDS: DIPHENHYDRAMINE HCL 25 MG CAPSULE PO PRN (17:46)
[2018-06-04] MEDS: ROPINIROLE HCL 0.25 MG TABLET PO SCH (23:04)
[2018-06-05] MEDS: ACETAMINOPHEN 325 MG TABLET PO SCH ×4 (07:56→23:06)
[2018-06-05] MEDS: GABAPENTIN 100 MG CAPSULE PO SCH ×4 (07:56→23:06)
[2018-06-05] MEDS: ENOXAPARIN SODIUM INJ 30 MG/0.3 ML DISP.SYRIN SUBCUT SCH (09:39)
[2018-06-05] MEDS: FUROSEMIDE 40 MG TABLET PO SCH ×2 (09:41→16:47)
[2018-06-05] MEDS: ASPIRIN 81 MG TABLET, CHEWABLE PO SCH (09:42)
[2018-06-05] MEDS: SPIRONOLACTONE 25 MG TABLET PO SCH (09:42)
[2018-06-05] MEDS: DOCUSATE SODIUM 100 MG CAPSULE PO SCH ×2 (09:43→16:47)
[2018-06-05] MEDS: OMEGA-3 ACID ETHYL ESTERS 1 GM CAPSULE PO SCH ×2 (09:43→16:47)
[2018-06-05] MEDS: CYCLOSPORINE 0.05% OPH EMULSIO 0.4 ML DROPERETTE OU SCH (09:43)
[2018-06-05] MEDS: CARVEDILOL 3.125 MG TABLET PO SCH ×2 (09:43→23:03)
[2018-06-05] MEDS: DIGOXIN 0.125 MG TABLET PO SCH (09:43)
[2018-06-05] MEDS: DIPHENHYDRAMINE HCL 25 MG CAPSULE PO PRN (09:45)
--- NOTE | 2018-06-05 11:55 | PDOC PROGRESS REPORT ---
Subjective Progress Note for:: 06/05/18 Subjective:: This is a 62-year-old male with a past medical history of CAD, prior CABG, COPD, diet-controlled DM, chronic systolic heart failure from ischemic cardiomyopathy with prior AICD placement, chronic respiratory failure on home O2, history of CVA with residual partial expressive aphasia who initially presented with increasing shortness of breath and leg swelling. Patient was admitted for CHF exacerbation. Patient has partial expressive aphasia (has some residual slurring and pauses) but is coherent and is able to converse with provider. He says his SOB is at baseline but he becomes short of breath when lying supine. He has been having persistent orthopnea. 05/13: Discussed in length again this morning with caregiver (Nuria) and patient. We discussed the need for thoracentesis again this morning including the indication due to his persistent orthopnea and significant bilateral pleural effusion. Also discussed the small risk of pneumothorax. Patient did agree undergo thoracentesis as he has been having patient orthopnea. Patient is oriented to person, place and situation. Also discussed with automatic data processing planner on bedside about possible option to be transferred to a [facility] in [place] as patient is a his history of placement and disposition. He does not want to be transferred at this time and would prefer to stay here. 05/14: Patient does appear to have into capacity to make his own medical decisions. Patient was also evaluated by psych who deemed the same. Discussed in length again today about plan and disposition. Patient says he does not want to go to a intermediate or rehab. He also does not want to talk about his CODE STATUS and says that he will "sort it out" later. Offered palliative care consult and he is receptive to it but not hospice. He says his breathing has improved after the thoracentesis. Protective Signal Installer Helper recommended BiPAP at home. Patient is resistant on using BiPAP at home but agrees to try it here while inpatient and see if he tolerates it. 05/15: Upon encounter this morning, patient was sleeping on the recliner. Patient says that his house is not fixed yet. He says he does not want to go to any of the surrounding SNF/rehab facilities at this time but is agreeable to being transferred to the [facility] in [place]. Convinced on trying the BiPAP and he says he will try wearing it. 05/16: No acute event overnight. Patient has complied with BIPAP. He says his breathing has slightly improved but still has orthopnea. Denies chest pain or dizziness. 05/17: Patient says his breathing has improved and he feels better today. He says he can use the BIPAP for 2 hrs but is willing to try to extend it to 3-4 hrs today. 05/18: Patient only used BIPAP for 1.5 hrs last night. Upon encounter, he does say that he breathes and feels better when on BIPAP. He was advised on increa sing his BIPAP use again today. He denies worsening SOB or chest pain. Still awaiting for update on transfer to [facility] in [facility]. 05/19/2018-no acute events in the last 24 hours as per the patient he is using BiPAP 3-4 hours a day. He is comfortably in the chair on oxygen via nasal tom kurt. Denies any problems. Waiting for placement in [facility]. 05/20/2018-no acute events in the last 24 hours. Patient is on oxygen via nasal cannula walking in the room. Denies any complaints. Using BiPAP 4 hours a day. Patient is waiting for placement at [facility]. 05/21/2018 no acute events in the last 24 hours. Patient is complaining of pain in both arms. I am going to put him on Percocet 09/25/2024 every 8 as needed for pain. Patient is on 2 L nasal cannula pulse ox is 96%. He is using BiPAP 4 hours a day. 05/22/2018-no acute events over the last 24 hours. Patient is afebrile. Patient is complaining of dry skin and itching he wants some Benadryl. 05/23/2018 no acute events in the last 24 hours. His BiPAP requirements are decreased. Patient is afebrile. His pulse ox is 99% on 2 L. Notably sitting in the bed communicating okay. 05/24/2018 -no acute events in the last 24 hours. Patient pulse oxes 99% on 2 L. Is comfortably sleeping in his chair. Denies any complaints. 05/25/2018-no acute events in the last 24 hours. Pulse ox is 100% on 2 L. He is comfortable in the chair communicating very well. Denies any complaints. [facility] 05/26/18: He has been more complaint with BIPAP. He denies acute SOB and feels like he is at his baseline. 05/27/18: No acute event overnight. He did complaint of transient chest tightness this morning after he ate a big breakfast (ham and omelet). He says it only lasted for a few seconds. EKG was negative for acute changes. 05/28/18: No acute event. No acute symptoms, no chest pain or SOB. He is at his baseline. 05/29/18: No acute event. Patient denies any acute complaint. Updated by RN and automatic data processing planner that patient's house will be condemned due to multiple issues. 05/30/18: No acute issues. Patient is still awaiting placement. 05/31/18:Patient is still awaiting placement. Discussed with Eryn on bedside, patient's assembler wet wash who says she is getting her new house this friday and may be able to have patient live with her. 06/01/18: No acute issues. Plan to discharge patient to her assembler wet wash's new house later this week with home health. Expander says she is confident she is able to take care of him at her new house. Patient also prefers discussed disposition. 06/02/2018-patient is afebrile no acute events in the last 24 hours patient waiting to go to caretakers home. 06/03/2018 no acute events in last 24 hours. Patient is comfortable in the chair talking to the family members on the phone. Denies any complaints. 06/04/2018-no acute events in the last 24 hrs. afebrile .pulse ox 98% on 2lts. 06/05/2018-no acute events in the last 24 hours. Patient is afebrile. Pulse ox is 99% on 2 L. Reason For Visit: CHF Physical Exam Vital Signs: Temp Pulse Resp BP Pulse Ox 98.1 F 95 22 H 103/65 98 06/05/18 08:13 06/05/18 08:13 06/05/18 08:13 06/05/18 08:13 06/05/18 10:15 Intake & Output 06/04/18 06/05/18 06/06/18 06:59 06:59 06:59 Intake Total 1390 1748 850 Output Total 1525 400 625 Balance -135 1348 225 Weight 83.5 kg 83.5 kg General appearance: PRESENT: no acute distress Head exam: PRESENT: atraumatic Eye exam: PRESENT: PERRLA Mouth exam: PRESENT: moist, tongue midline Neck exam: ABSENT: carotid bruit, JVD, lymphadenopathy, thyromegaly Respiratory exam: PRESENT: decreased breath sounds Cardiovascular exam: PRESENT: RRR. ABSENT: diastolic murmur, rubs, systolic murmur GI/Abdominal exam: PRESENT: normal bowel sounds, soft. ABSENT: distended, guarding, mass, organolmegaly, rebound, tenderness Extremities exam: PRESENT: full ROM. ABSENT: calf tenderness, clubbing, pedal edema Neurological exam: PRESENT: alert, awake, oriented to person, oriented to place, oriented to time, oriented to situation, CN II-XII grossly intact. ABSENT: motor sensory deficit Psychiatric exam: PRESENT: appropriate affect, normal mood. ABSENT: homicidal ideation, suicidal ideation Results Laboratory Results: 06/03/18 08:12 06/03/18 08:12 05/11/18 05/11/18 05/11/18 09:35 09:35 09:35 Creatine Kinase 37 L Troponin I 0.071 NT-Pro-B Natriuret Pep 6800 H 05/11/18 05/11/18 05/12/18 12:30 19:00 01:06 Creatine Kinase Troponin I 0.067 0.064 0.050 NT-Pro-B Natriuret Pep 05/23/18 05/24/18 05/27/18 10:36 09:38 10:01 Creatine Kinase Troponin I 0.060 NT-Pro-B Natriuret Pep 819 889 06/03/18 08:12 Creatine Kinase Troponin I NT-Pro-B Natriuret Pep 1420 H Impressions: Thoracentesis Ultrasound 05/13/18 10:06 IMPRESSION: SUCCESSFUL THORACENTESIS USING ULTRASOUND GUIDANCE. Chest X-Ray 06/01/18 00:00 IMPRESSION: Stable massive cardiomegaly and trace bilateral pleural effusions Assessment & Plan - Diagnosis (1) Acute and chronic respiratory failure with hypoxia Is this a current diagnosis for this admission?: Yes Plan: 05/19/2018 acute on chronic respiratory failure with hypoxia probably secondary to CHF exacerbation. He is on BiPAP for 3-4 hours/day. Plan is to continue the current management. 05/20/2018-patient was admitted for acute on chronic respiratory failure with hypoxia probably secondary to CHF exacerbation. He is using BiPAP 4 hours a day. No acute events in the last 24 hours. Plan is to continue the present management. 05/21/2018-patient is comfortably in the chair on 2 L oxygen via nasal cannula. Acute on chronic respiratory failure resolved with hypoxia resolved. Is awaiting for placement in [facility]. 05/22/2018-pulse ox on 2 L is 100% today. Patient is comfortably in the chair. Only complaint is his complaint of dry skin and itching. [facility] He is using BiPAP 3-4 hours a day. His acute on chronic respiratory failure with hypoxia probably secondary to CHF exacerbation. I am going to recheck his BMP tomorrow. Pt is not in fluid overload today. 05/23/2018 pulse ox on 2 L is 99% patient is able to walk in the hallway on 2 L oxygen without any problems. He did not have need to use the BiPAP in the last 24 hours. He has been BNP is around 820. no Signs of any fluid overload. Plan is to continue the present management. 05/24/2018 patient was admitted for acute on chronic respiratory failure with hypoxia hypoxia resolved. Patient is not on BiPAP anymore. Pulse ox is pulse ox is 91% on 2 L. Patient waiting for placement in [place]. 05/25/2018-2 L oxygen pulse ox 100% hypoxia with acute respiratory failure resolved patient is not using the BiPAP anymore. He is waiting for placement at [facility]. 06/02/2017-pulse ox on 2 L is 97% today. Using the BiPAP on and off. Waiting waiting to go to [facility] probably on Friday. The meantime will continue the present management. 06/03/2018-patient pulse ox is 99% on 2 L. He is using the BiPAP on and off. No complaints from the patient. Plan is to discharge him to [facility] on Friday. 06/04/2018-pulse ox is 100% on 2lts.using BIPAP on and off. no complaints. comfortable in chair eating lunch. 06/05/2018 pulse ox is 99% on 2 L. Not using the BiPAP at this time. Comfortably in the chair communicating well. Waiting for the placement. (2) Acute on chronic systolic (congestive) heart failure Is this a current diagnosis for this admission?: Yes Plan: Combined systolic and diastolic biventricular failure. Continue Lasix 40 mg daily. Cardiology following. Echo shows an EF of 30-35%, grade 2 diastolic dysfunction and dilated left and right ventricular. Patient already has an AICD. Patient is not on UZMA inhibitor hence is not on optimal medical therapy. CHF medication regimen cannot be optimized as patient has had angioedema from captopril before. Both UZMA inhibitors and Entresto will be contraindicated to a history of ACEi-associated angioedema. Discussed with cardio and pulm. Recommendation for BIPAP at home/discharge for his biventricular heart failure and significant pulmonary hypertension. Continue Coreg and Aldactone. 05/16/18: Decreased Lasix to 40 mg IV daily from q12 due to alkalosis. 05/19/2018-patient has history of congestive heart failure. Which is combined systolic diastolic biventricular failure. Patient is on Lasix 40 mg IV twice daily. cardiology on board. EF is 30-35%. Grade 2 diastolic dysfunction and dilated left and right ventricular chambers. Patient has AICD. Patient is not on UZMA inhibitors because of history of angioedema. UZMA inhibitors and Entresto are not contraindicated because of the ACEi associated angioedema. Patient is also on Coreg and Aldactone. And [facility]. 05/20/2018-has a combined systolic diastolic biventricular failure. EF is 30- 35%. Echocardiogram shows grade 2 diastolic dysfunction and dilated left and right ventricular chambers. Patient has AICD. Patient is not on UZMA inhibitors because of history of angioedema. Stoped Aldactone today because potassium is 5.1. 05/21/2018-patient has history of congestive heart failure combined systolic diastolic biventricular failure with EF of 30-35%. Patient is allergic to UZMA inhibitors gives angioedema. Latest potassium is 5.1. We are going to check his potassium levels today. Yesterday I stopped his spironolactone and we stopped potassium supplementation. 05/22/2018-his latest potassium is 5.0 potassium supplementation was dis continued spironolactone was discontinued, has EF is 30-35%. Patient is not in fluid overload I am going to follow the patient regular basis. 05/23/2018-potassium level is 5.0 stable patient ejection fraction is 30-45%. Patient has combined systolic diastolic biventricular heart failure. He has AICD. And is to continue the present management. 05/24/2018-patient's has a biventricular systolic and diastolic heart failure with EF of 35-40%. Patient has AICD. He is on Lasix 40 IV daily I am going to switch her to 40 mg p.o. daily. 05/25/2018-patient is not in fluid overload chest was clear no pedal edema. He has biventricular systolic/diastolic heart failure with EF of 35-40%. He is on Lasix.Combined systolic and diastolic biventricular failure. Continue Lasix 40 mg daily. Cardiology following. Echo shows an EF of 30-35%, grade 2 diastolic dysfunction and dilated left and right ventricular. Patient already has an AICD. Patient is not on UZMA inhibitor hence is not on optimal medical therapy. CHF medication regimen cannot be optimized as patient has had angioedema from captopril before. Both UZMA inhibitors and Entresto will be contraindicated to a history of ACEi-associated angioedema. Discussed with cardio and pulm. Recommendation for BIPAP at home/discharge for his biventricular heart failure and significant pulmonary hypertension. Continue Coreg. Aldactone was d/raghav due to his potassium trending up. Aldactone resumed. Continue Lasix 40 mg daily. 06/02/2017-patient has combined systolic and diastolic biventricular failure he is on Lasix 40 mg p.o. daily and also on Aldactone. Patient is not in fluid overload. And is to continue the present management. 06/03/2017 patient has history of combined systolic diastolic biventricular failure on Lasix 40 mg p.o. daily and is also on Aldactone potassium levels going back up again it was 5.2 today I am going to stop the Aldactone and and follow the potassium levels. 06/04/2018-pt is not in fluid overload. plan to continue present treatment. 06/05/2018-patient has history of for combined systolic/diastolic biventricular failure on Lasix 40 mg p.o. daily Aldactone was discontinued because of the persistently elevated potassium levels. Potassium level today is 3.7. (3) Pleural effusion Is this a current diagnosis for this admission?: Yes (4) CAD (coronary artery disease) Is this a current diagnosis for this admission?: Yes - Time Time Spent with patient: Less than 15 minutes Medications reviewed and adjusted accordingly: Yes Anticipated discharge: Home
[2018-06-05] MEDS: POLYVINYL ALCOHOL 1.4% OPH SOLN 15 ML OP SCH ×4 (13:09→23:01)
[2018-06-05] MEDS: TRAMADOL HCL 50 MG TABLET PO PRN (20:20)
[2018-06-05] MEDS: ROPINIROLE HCL 0.25 MG TABLET PO SCH (23:03)
[2018-06-06] MEDS: GABAPENTIN 100 MG CAPSULE PO SCH ×4 (09:00→23:18)
[2018-06-06] MEDS: ACETAMINOPHEN 325 MG TABLET PO SCH ×4 (09:00→23:18)
[2018-06-06] MEDS: DIPHENHYDRAMINE HCL 25 MG CAPSULE PO PRN (09:02)
[2018-06-06] MEDS: CARVEDILOL 3.125 MG TABLET PO SCH ×2 (10:57→21:00)
[2018-06-06] MEDS: DOCUSATE SODIUM 100 MG CAPSULE PO SCH ×2 (10:57→18:37)
[2018-06-06] MEDS: OMEGA-3 ACID ETHYL ESTERS 1 GM CAPSULE PO SCH ×2 (10:57→18:37)
[2018-06-06] MEDS: ASPIRIN 81 MG TABLET, CHEWABLE PO SCH (10:57)
[2018-06-06] MEDS: SPIRONOLACTONE 25 MG TABLET PO SCH (10:58)
[2018-06-06] MEDS: DIGOXIN 0.125 MG TABLET PO SCH (10:58)
[2018-06-06] MEDS: FUROSEMIDE 40 MG TABLET PO SCH (10:58)
[2018-06-06] MEDS: ENOXAPARIN SODIUM INJ 30 MG/0.3 ML DISP.SYRIN SUBCUT SCH (10:59)
[2018-06-06] MEDS: POLYVINYL ALCOHOL 1.4% OPH SOLN 15 ML OP SCH ×4 (10:59→21:02)
--- NOTE | 2018-06-06 11:00 | PDOC PROGRESS REPORT ---
Subjective Progress Note for:: 06/06/18 Subjective:: This is a 62-year-old male with a past medical history of CAD, prior CABG, COPD, diet-controlled DM, chronic systolic heart failure from ischemic cardiomyopathy with prior AICD placement, chronic respiratory failure on home O2, history of CVA with residual partial expressive aphasia who initially presented with increasing shortness of breath and leg swelling. Patient was admitted for CHF exacerbation. Patient has partial expressive aphasia (has some residual slurring and pauses) but is coherent and is able to converse with provider. He says his SOB is at baseline but he becomes short of breath when lying supine. He has been having persistent orthopnea. 05/13: Discussed in length again this morning with caregiver (Nuria) and patient. We discussed the need for thoracentesis again this morning including the indication due to his persistent orthopnea and significant bilateral pleural effusion. Also discussed the small risk of pneumothorax. Patient did agree undergo thoracentesis as he has been having patient orthopnea. Patient is oriented to person, place and situation. Also discussed with assistant media planner on bedside about possible option to be transferred to a [facility] in [place] as patient is a his history of placement and disposition. He does not want to be transferred at this time and would prefer to stay here. 05/14: Patient does appear to have into capacity to make his own medical decisions. Patient was also evaluated by psych who deemed the same. Discussed in length again today about plan and disposition. Patient says he does not want to go to a penitentiary or rehab. He also does not want to talk about his CODE STATUS and says that he will "sort it out" later. Offered palliative care consult and he is receptive to it but not hospice. He says his breathing has improved after the thoracentesis. Stage Manager recommended BiPAP at home. Patient is resistant on using BiPAP at home but agrees to try it here while inpatient and see if he tolerates it. 05/15: Upon encounter this morning, patient was sleeping on the recliner. Patient says that his house is not fixed yet. He says he does not want to go to any of the surrounding SNF/rehab facilities at this time but is agreeable to being transferred to the [facility] in [place]. Convinced on trying the BiPAP and he says he will try wearing it. 05/16: No acute event overnight. Patient has complied with BIPAP. He says his breathing has slightly improved but still has orthopnea. Denies chest pain or dizziness. 05/17: Patient says his breathing has improved and he feels better today. He says he can use the BIPAP for 2 hrs but is willing to try to extend it to 3-4 hrs today. 05/18: Patient only used BIPAP for 1.5 hrs last night. Upon encounter, he does say that he breathes and feels better when on BIPAP. He was advised on increa sing his BIPAP use again today. He denies worsening SOB or chest pain. Still awaiting for update on transfer to [facility] in [facility]. 05/19/2018-no acute events in the last 24 hours as per the patient he is using BiPAP 3-4 hours a day. He is comfortably in the chair on oxygen via nasal tom kurt. Denies any problems. Waiting for placement in [facility]. 05/20/2018-no acute events in the last 24 hours. Patient is on oxygen via nasal cannula walking in the room. Denies any complaints. Using BiPAP 4 hours a day. Patient is waiting for placement at [facility]. 05/21/2018 no acute events in the last 24 hours. Patient is complaining of pain in both arms. I am going to put him on Percocet 09/25/2024 every 8 as needed for pain. Patient is on 2 L nasal cannula pulse ox is 96%. He is using BiPAP 4 hours a day. 05/22/2018-no acute events over the last 24 hours. Patient is afebrile. Patient is complaining of dry skin and itching he wants some Benadryl. 05/23/2018 no acute events in the last 24 hours. His BiPAP requirements are decreased. Patient is afebrile. His pulse ox is 99% on 2 L. Notably sitting in the bed communicating okay. 05/24/2018 -no acute events in the last 24 hours. Patient pulse oxes 99% on 2 L. Is comfortably sleeping in his chair. Denies any complaints. 05/25/2018-no acute events in the last 24 hours. Pulse ox is 100% on 2 L. He is comfortable in the chair communicating very well. Denies any complaints. [facility] 05/26/18: He has been more complaint with BIPAP. He denies acute SOB and feels like he is at his baseline. 05/27/18: No acute event overnight. He did complaint of transient chest tightness this morning after he ate a big breakfast (ham and omelet). He says it only lasted for a few seconds. EKG was negative for acute changes. 05/28/18: No acute event. No acute symptoms, no chest pain or SOB. He is at his baseline. 05/29/18: No acute event. Patient denies any acute complaint. Updated by RN and assistant media planner that patient's house will be condemned due to multiple issues. 05/30/18: No acute issues. Patient is still awaiting placement. 05/31/18:Patient is still awaiting placement. Discussed with Eryn on bedside, patient's panel beater who says she is getting her new house this friday and may be able to have patient live with her. 06/01/18: No acute issues. Plan to discharge patient to her panel beater's new house later this week with home health. Acetylene Operator says she is confident she is able to take care of him at her new house. Patient also prefers discussed disposition. 06/02/2018-patient is afebrile no acute events in the last 24 hours patient waiting to go to caretakers home. 06/03/2018 no acute events in last 24 hours. Patient is comfortable in the chair talking to the family members on the phone. Denies any complaints. 06/04/2018-no acute events in the last 24 hrs. afebrile .pulse ox 98% on 2lts. 06/05/2018-no acute events in the last 24 hours. Patient is afebrile. Pulse ox is 99% on 2 L. 06/06/2018-no acute events in the last 24 hours. Patient is afebrile. Comfortably in the chair sleeping. Denies any complaints. Reason For Visit: CHF Physical Exam Vital Signs: Temp Pulse Resp BP Pulse Ox 98.1 F 102 H 18 105/61 99 06/05/18 23:08 06/05/18 23:08 06/05/18 23:08 06/05/18 23:08 06/05/18 23:08 Intake & Output 06/05/18 06/06/18 06/07/18 06:59 06:59 06:59 Intake Total 1748 2092 Output Total 400 2800 Balance 1348 -708 Weight 83.5 kg General appearance: PRESENT: no acute distress Head exam: PRESENT: atraumatic Eye exam: PRESENT: PERRLA Neck exam: ABSENT: carotid bruit, JVD, lymphadenopathy, thyromegaly Respiratory exam: PRESENT: clear to auscultation rahul. ABSENT: rales, rhonchi, wheezes Cardiovascular exam: PRESENT: RRR. ABSENT: diastolic murmur, rubs, systolic murmur GI/Abdominal exam: PRESENT: normal bowel sounds, soft. ABSENT: distended, guarding, mass, organolmegaly, rebound, tenderness Extremities exam: PRESENT: full ROM. ABSENT: calf tenderness, clubbing, pedal edema Neurological exam: PRESENT: alert, awake, oriented to person, oriented to place, oriented to time, oriented to situation, CN II-XII grossly intact. ABSENT: motor sensory deficit Psychiatric exam: PRESENT: appropriate affect, normal mood. ABSENT: homicidal ideation, suicidal ideation Results Laboratory Results: 06/03/18 08:12 06/03/18 08:12 05/11/18 05/11/18 05/11/18 09:35 09:35 09:35 Creatine Kinase 37 L Troponin I 0.071 NT-Pro-B Natriuret Pep 6800 H 05/11/18 05/11/18 05/12/18 12:30 19:00 01:06 Creatine Kinase Troponin I 0.067 0.064 0.050 NT-Pro-B Natriuret Pep 05/23/18 05/24/18 05/27/18 10:36 09:38 10:01 Creatine Kinase Troponin I 0.060 NT-Pro-B Natriuret Pep 819 889 06/03/18 08:12 Creatine Kinase Troponin I NT-Pro-B Natriuret Pep 1420 H Impressions: Thoracentesis Ultrasound 05/13/18 10:06 IMPRESSION: SUCCESSFUL THORACENTESIS USING ULTRASOUND GUIDANCE. Chest X-Ray 06/01/18 00:00 IMPRESSION: Stable massive cardiomegaly and trace bilateral pleural effusions Assessment & Plan - Diagnosis (1) Acute and chronic respiratory failure with hypoxia Is this a current diagnosis for this admission?: Yes Plan: 05/19/2018 acute on chronic respiratory failure with hypoxia probably secondary to CHF exacerbation. He is on BiPAP for 3-4 hours/day. Plan is to continue the current management. 05/20/2018-patient was admitted for acute on chronic respiratory failure with hypoxia probably secondary to CHF exacerbation. He is using BiPAP 4 hours a d ay. No acute events in the last 24 hours. Plan is to continue the present management. 05/21/2018-patient is comfortably in the chair on 2 L oxygen via nasal cannula. Acute on chronic respiratory failure resolved with hypoxia resolved. Is awaiting for placement in [facility]. 05/22/2018-pulse ox on 2 L is 100% today. Patient is comfortably in the chair. Only complaint is his complaint of dry skin and itching. We are waiting for the [facility] placement. He is using BiPAP 3-4 hours a day. His acute on chronic respiratory failure with hypoxia probably secondary to CHF exacerbation. I am going to recheck his BMP tomorrow. Pt is not in fluid overload today. 05/23/2018 pulse ox on 2 L is 99% patient is able to walk in the hallway on 2 L oxygen without any problems. He did not have need to use the BiPAP in the last 24 hours. He has been BNP is around 820. no Signs of any fluid overload. Plan is to continue the present management. 05/24/2018 patient was admitted for acute on chronic respiratory failure with hypoxia hypoxia resolved. Patient is not on BiPAP anymore. Pulse ox is pulse ox is 91% on 2 L. Patient waiting for placement in [place]. 05/25/2018-2 L oxygen pulse ox 100% hypoxia with acute respiratory failure resolved patient is not using the BiPAP anymore. He is waiting for placement at [facility]. 06/02/2017-pulse ox on 2 L is 97% today. Using the BiPAP on and off. Waiting waiting to go to [facility] probably on Friday. The meantime will continue the present management. 06/03/2018-patient pulse ox is 99% on 2 L. He is using the BiPAP on and off. No complaints from the patient. Plan is to discharge him to [facility] Friday. 06/04/2018-pulse ox is 100% on 2lts.using BIPAP on and off. no complaints. comfortable in chair eating lunch. 06/05/2018 pulse ox is 99% on 2 L. Not using the BiPAP at this time. Comfortably in the chair communicating well. Waiting for the placement. 06/06/2018-pulse ox on 2 L is 99%. Patient is not using the BiPAP anymore. He acute on chronic respiratory failure with hypoxia and hypercapnia resolved. (2) Acute on chronic systolic (congestive) heart failure Is this a current diagnosis for this admission?: Yes Plan: Combined systolic and diastolic biventricular failure. Continue Lasix 40 mg daily. Cardiology following. Echo shows an EF of 30-35%, grade 2 diastolic dysfunction and dilated left and right ventricular. Patient already has an AICD. Patient is not on UZMA inhibitor hence is not on optimal medical therapy. CHF medication regimen cannot be optimized as patient has had angioedema from captopril before. Both UZMA inhibitors and Entresto will be contraindicated to a history of ACEi-associated angioedema. Discussed with cardio and pulm. Recommendation for BIPAP at home/discharge for his biventricular heart failure and significant pulmonary hypertension. Continue Coreg and Aldactone. 05/16/18: Decreased Lasix to 40 mg IV daily from q12 due to alkalosis. 05/19/2018-patient has history of congestive heart failure. Which is combined systolic diastolic biventricular failure. Patient is on Lasix 40 mg IV twice daily. cardiology on board. EF is 30-35%. Grade 2 diastolic dysfunction and dilated left and right ventricular chambers. Patient has AICD. Patient is not on UZMA inhibitors because of history of angioedema. UZMA inhibitors and Entresto are not contraindicated because of the ACEi associated angioedema. Patient is also on Coreg and Aldactone. And [facility]. 05/20/2018-has a combined systolic diastolic biventricular failure. EF is 30- 35%. Echocardiogram shows grade 2 diastolic dysfunction and dilated left and right ventricular chambers. Patient has AICD. Patient is not on UZMA inhibitors because of history of angioedema. Stoped Aldactone today because potassium is 5.1. 05/21/2018-patient has history of congestive heart failure combined systolic diastolic biventricular failure with EF of 30-35%. Patient is allergic to UZMA inhibitors gives angioedema. Latest potassium is 5.1. We are going to check his potassium levels today. Yesterday I stopped his spironolactone and we stopped potassium supplementation. 05/22/2018-his latest potassium is 5.0 potassium supplementation was discontinued spironolactone was discontinued, has EF is 30-35%. Patient is not in fluid overload I am going to follow the patient regular basis. 05/23/2018-potassium level is 5.0 stable patient ejection fraction is 30-45%. Patient has combined systolic diastolic biventricular heart failure. He has AICD. And is to continue the present management. 05/24/2018-patient's has a biventricular systolic and diastolic heart failure with EF of 35-40%. Patient has AICD. He is on Lasix 40 IV daily I am going to switch her to 40 mg p.o. daily. 05/25/2018-patient is not in fluid overload chest was clear no pedal edema. He has biventricular systolic/diastolic heart failure with EF of 35-40%. He is on Lasix.Combined systolic and diastolic biventricular failure. Continue Lasix 40 mg daily. Cardiology following. Echo shows an EF of 30-35%, grade 2 diastolic dysfunction and dilated left and right ventricular. Patient already has an AICD. Patient is not on UZMA inhibitor hence is not on optimal medical therapy. CHF medication regimen cannot be optimized as patient has had angioedema from captopril before. Both UZMA inhibitors and Entresto will be contraindicated to a history of ACEi-associated angioedema. Discussed with cardio and pulm. Recomme ndation for BIPAP at home/discharge for his biventricular heart failure and significant pulmonary hypertension. Continue Coreg. Aldactone was d/raghav due to his potassium trending up. Aldactone resumed. Continue Lasix 40 mg daily. 06/02/2017-patient has combined systolic and diastolic biventricular failure he is on Lasix 40 mg p.o. daily and also on Aldactone. Patient is not in fluid overload. And is to continue the present management. 06/03/2017 patient has history of combined systolic diastolic biventricular failure on Lasix 40 mg p.o. daily and is also on Aldactone potassium levels going back up again it was 5.2 today I am going to stop the Aldactone and and follow the potassium levels. 06/04/2018-pt is not in fluid overload. plan to continue present treatment. 06/05/2018-patient has history of for combined systolic/diastolic biventricular failure on Lasix 40 mg p.o. daily Aldactone was discontinued because of the persistently elevated potassium levels. Potassium level today is 3.7. 06/06/2018-patient has a biventricular heart failure with EF of less than 30% patient is not in fluid overload. Plan is to continue the present management. (3) Pleural effusion Is this a current diagnosis for this admission?: Yes (4) CAD (coronary artery disease) Is this a current diagnosis for this admission?: Yes - Time Time Spent with patient: Less than 15 minutes Medications reviewed and adjusted accordingly: Yes Anticipated discharge: Home
[2018-06-06] MEDS: CYCLOSPORINE 0.05% OPH EMULSIO 0.4 ML DROPERETTE OU SCH (12:33)
[2018-06-06] MEDS: TRAMADOL HCL 50 MG TABLET PO PRN (20:40)
[2018-06-06] MEDS: ROPINIROLE HCL 0.25 MG TABLET PO SCH (21:00)
[2018-06-07] MEDS: CARVEDILOL 3.125 MG TABLET PO SCH ×2 (09:04→21:11)
[2018-06-07] MEDS: SPIRONOLACTONE 25 MG TABLET PO SCH (09:04)
[2018-06-07] MEDS: DOCUSATE SODIUM 100 MG CAPSULE PO SCH ×2 (09:04→17:38)
[2018-06-07] MEDS: OMEGA-3 ACID ETHYL ESTERS 1 GM CAPSULE PO SCH ×2 (09:04→17:38)
[2018-06-07] MEDS: ASPIRIN 81 MG TABLET, CHEWABLE PO SCH (09:04)
[2018-06-07] MEDS: FUROSEMIDE 40 MG TABLET PO SCH (09:05)
[2018-06-07] MEDS: GABAPENTIN 100 MG CAPSULE PO SCH ×4 (09:05→23:31)
[2018-06-07] MEDS: TRAMADOL HCL 50 MG TABLET PO PRN (09:05)
[2018-06-07] MEDS: ENOXAPARIN SODIUM INJ 30 MG/0.3 ML DISP.SYRIN SUBCUT SCH (09:06)
[2018-06-07] MEDS: DIGOXIN 0.125 MG TABLET PO SCH (09:06)
[2018-06-07] MEDS: ACETAMINOPHEN 325 MG TABLET PO SCH ×4 (09:08→23:31)
[2018-06-07] MEDS: POLYVINYL ALCOHOL 1.4% OPH SOLN 15 ML OP SCH ×4 (09:12→21:13)
--- NOTE | 2018-06-07 10:16 | PDOC PROGRESS REPORT ---
Subjective Progress Note for:: 06/07/18 Subjective:: This is a 62-year-old male with a past medical history of CAD, prior CABG, COPD, diet-controlled DM, chronic systolic heart failure from ischemic cardiomyopathy with prior AICD placement, chronic respiratory failure on home O2, history of CVA with residual partial expressive aphasia who initially presented with increasing shortness of breath and leg swelling. Patient was admitted for CHF exacerbation. Patient has partial expressive aphasia (has some residual slurring and pauses) but is coherent and is able to converse with provider. He says his SOB is at baseline but he becomes short of breath when lying supine. He has been having persistent orthopnea. 05/13: Discussed in length again this morning with caregiver (Nuria) and patient. We discussed the need for thoracentesis again this morning including the indication due to his persistent orthopnea and significant bilateral pleural effusion. Also discussed the small risk of pneumothorax. Patient did agree undergo thoracentesis as he has been having patient orthopnea. Patient is oriented to person, place and situation. Also discussed with technical planner on bedside about possible option to be transferred to a [facility] in [place] as patient is a his history of placement and disposition. He does not want to be transferred at this time and would prefer to stay here. 05/14: Patient does appear to have into capacity to make his own medical decisions. Patient was also evaluated by psych who deemed the same. Discussed in length again today about plan and disposition. Patient says he does not want to go to a care home or rehab. He also does not want to talk about his CODE STATUS and says that he will "sort it out" later. Offered palliative care consult and he is receptive to it but not hospice. He says his breathing has improved after the thoracentesis. Hebrew Professor recommended BiPAP at home. Patient is resistant on using BiPAP at home but agrees to try it here while inpatient and see if he tolerates it. 05/15: Upon encounter this morning, patient was sleeping on the recliner. Patient says that his house is not fixed yet. He says he does not want to go to any of the surrounding SNF/rehab facilities at this time but is agreeable to being transferred to the [facility] in [place]. Convinced on trying the BiPAP and he says he will try wearing it. 05/16: No acute event overnight. Patient has complied with BIPAP. He says his breathing has slightly improved but still has orthopnea. Denies chest pain or dizziness. 05/17: Patient says his breathing has improved and he feels better today. He says he can use the BIPAP for 2 hrs but is willing to try to extend it to 3-4 hrs today. 05/18: Patient only used BIPAP for 1.5 hrs last night. Upon encounter, he does say that he breathes and feels better when on BIPAP. He was advised on increa sing his BIPAP use again today. He denies worsening SOB or chest pain. Still awaiting for update on transfer to [facility] in [facility]. 05/19/2018-no acute events in the last 24 hours as per the patient he is using BiPAP 3-4 hours a day. He is comfortably in the chair on oxygen via nasal otm kurt. Denies any problems. Waiting for placement in [facility]. 05/20/2018-no acute events in the last 24 hours. Patient is on oxygen via nasal cannula walking in the room. Denies any complaints. Using BiPAP 4 hours a day. Patient is waiting for placement at [facility]. 05/21/2018 no acute events in the last 24 hours. Patient is complaining of pain in both arms. I am going to put him on Percocet 09/25/2024 every 8 as needed for pain. Patient is on 2 L nasal cannula pulse ox is 96%. He is using BiPAP 4 hours a day. 05/22/2018-no acute events over the last 24 hours. Patient is afebrile. Patient is complaining of dry skin and itching he wants some Benadryl. 05/23/2018 no acute events in the last 24 hours. His BiPAP requirements are decreased. Patient is afebrile. His pulse ox is 99% on 2 L. Notably sitting in the bed communicating okay. 05/24/2018 -no acute events in the last 24 hours. Patient pulse oxes 99% on 2 L. Is comfortably sleeping in his chair. Denies any complaints. 05/25/2018-no acute events in the last 24 hours. Pulse ox is 100% on 2 L. He is comfortable in the chair communicating very well. Denies any complaints. [facility] 05/26/18: He has been more complaint with BIPAP. He denies acute SOB and feels like he is at his baseline. 05/27/18: No acute event overnight. He did complaint of transient chest tightness this morning after he ate a big breakfast (ham and omelet). He says it only lasted for a few seconds. EKG was negative for acute changes. 05/28/18: No acute event. No acute symptoms, no chest pain or SOB. He is at his baseline. 05/29/18: No acute event. Patient denies any acute complaint. Updated by RN and technical planner that patient's house will be condemned due to multiple issues. 05/30/18: No acute issues. Patient is still awaiting placement. 05/31/18:Patient is still awaiting placement. Discussed with Eryn on bedside, patient's dump grader who says she is getting her new house this friday and may be able to have patient live with her. 06/01/18: No acute issues. Plan to discharge patient to her dump grader's new house later this week with home health. Cissp says she is confident she is able to take care of him at her new house. Patient also prefers discussed disposition. 06/02/2018-patient is afebrile no acute events in the last 24 hours patient waiting to go to caretakers home. 06/03/2018 no acute events in last 24 hours. Patient is comfortable in the chair talking to the family members on the phone. Denies any complaints. 06/04/2018-no acute events in the last 24 hrs. afebrile .pulse ox 98% on 2lts. 06/05/2018-no acute events in the last 24 hours. Patient is afebrile. Pulse ox is 99% on 2 L. 06/06/2018-no acute events in the last 24 hours. Patient is afebrile. Comfortably in the chair sleeping. Denies any complaints. 06/07/2018 patient is afebrile and doing well no complaints no acute events in the last 24 hours. Reason For Visit: CHF Physical Exam Vital Signs: Temp Pulse Resp BP Pulse Ox 98.3 F 110 H 20 116/79 100 06/06/18 23:44 06/06/18 23:44 06/06/18 23:44 06/06/18 23:44 06/06/18 23:44 Intake & Output 06/06/18 06/07/18 06/08/18 06:59 06:59 06:59 Intake Total 2092 746 Output Total 2800 6785 Balance -700 -909 Weight 83.5 kg 86.6 kg General appearance: PRESENT: no acute distress Head exam: PRESENT: atraumatic Eye exam: PRESENT: PERRLA Mouth exam: PRESENT: moist Neck exam: ABSENT: carotid bruit, JVD, lymphadenopathy, thyromegaly Respiratory exam: PRESENT: clear to auscultation rahul. ABSENT: rales, rhonchi, wheezes Cardiovascular exam: PRESENT: RRR. ABSENT: diastolic murmur, rubs, systolic murmur GI/Abdominal exam: PRESENT: normal bowel sounds, soft. ABSENT: distended, guarding, mass, organolmegaly, rebound, tenderness Extremities exam: PRESENT: full ROM. ABSENT: calf tenderness, clubbing, pedal edema Neurological exam: PRESENT: alert, awake, oriented to person, oriented to place, oriented to time, oriented to situation, CN II-XII grossly intact. ABSENT: motor sensory deficit Psychiatric exam: PRESENT: appropriate affect, normal mood. ABSENT: homicidal ideation, suicidal ideation Results Laboratory Results: 06/03/18 08:12 06/03/18 08:12 05/11/18 05/11/18 05/11/18 09:35 09:35 09:35 Creatine Kinase 37 L Troponin I 0.071 NT-Pro-B Natriuret Pep 6800 H 05/11/18 05/11/18 05/12/18 12:30 19:00 01:06 Creatine Kinase Troponin I 0.067 0.064 0.050 NT-Pro-B Natriuret Pep 05/23/18 05/24/18 05/27/18 10:36 09:38 10:01 Creatine Kinase Troponin I 0.060 NT-Pro-B Natriuret Pep 819 889 06/03/18 08:12 Creatine Kinase Troponin I NT-Pro-B Natriuret Pep 1420 H Impressions: Thoracentesis Ultrasound 05/13/18 10:06 IMPRESSION: SUCCESSFUL THORACENTESIS USING ULTRASOUND GUIDANCE. Chest X-Ray 06/01/18 00:00 IMPRESSION: Stable massive cardiomegaly and trace bilateral pleural effusions Assessment & Plan - Diagnosis (1) Acute and chronic respiratory failure with hypoxia Is this a current diagnosis for this admission?: Yes Plan: 05/19/2018 acute on chronic respiratory failure with hypoxia probably secondary to CHF exacerbation. He is on BiPAP for 3-4 hours/day. Plan is to continue the current management. 05/20/2018-patient was admitted for acute on chronic respiratory failure with hypoxia probably secondary to CHF exacerbation. He is using BiPAP 4 hours a day. No acute events in the last 24 hours. Plan is to continue the present management. 05/21/2018-patient is comfortably in the chair on 2 L oxygen via nasal cannula. Acute on chronic respiratory failure resolved with hypoxia resolved. Is awaiting for placement in [facility]. 05/22/2018-pulse ox on 2 L is 100% today. Patient is comfortably in the chair. Only complaint is his complaint of dry skin and itching. [facility] He is using BiPAP 3-4 hours a day. His acute on chronic respiratory failure with hypoxia probably secondary to CHF exacerbation. I am going to recheck his BMP tomorrow. Pt is not in fluid overload today. 05/23/2018 pulse ox on 2 L is 99% patient is able to walk in the hallway on 2 L oxygen without any problems. He did not have need to use the BiPAP in the last 24 hours. He has been BNP is around 820. no Signs of any fluid overload. Plan is to continue the present management. 05/24/2018 patient was admitted for acute on chronic respiratory failure with hypoxia hypoxia resolved. Patient is not on BiPAP anymore. Pulse ox is pulse ox is 91% on 2 L. Patient waiting for placement in [place]. 05/25/2018-2 L oxygen pulse ox 100% hypoxia with acute respiratory failure resolved patient is not using the BiPAP anymore. He is waiting for placement at [facility]. 06/02/2017-pulse ox on 2 L is 97% today. Using the BiPAP on and off. Waiting waiting to go to caretakers house probably on Friday. The meantime will continue the present management. 06/03/2018-patient pulse ox is 99% on 2 L. He is using the BiPAP on and off. No complaints from the patient. Plan is to discharge him to caretakers house on Friday. 06/04/2018-pulse ox is 100% on 2lts.using BIPAP on and off. no complaints. comfortable in chair eating lunch. 06/05/2018 pulse ox is 99% on 2 L. Not using the BiPAP at this time. Comfortably in the chair communicating well. Waiting for the placement. 06/06/2018-pulse ox on 2 L is 99%. Patient is not using the BiPAP anymore. He acute on chronic respiratory failure with hypoxia and hypercapnia resolved. 06/07/2018 patient pulse oxes are 98% on 2 L patient is off the BiPAP right now acute on chronic respiratory failure with hypoxia and hypercapnia resolved patient waiting for placement at the caretakers home. (2) Acute on chronic systolic (congestive) heart failure Is this a current diagnosis for this admission?: Yes Plan: Combined systolic and diastolic biventricular failure. Continue Lasix 40 mg daily. Cardiology following. Echo shows an EF of 30-35%, grade 2 diastolic dysfunction and dilated left and right ventricular. Patient already has an AICD. Patient is not on UZMA inhibitor hence is not on optimal medical therapy. CHF medication regimen cannot be optimized as patient has had angioedema from captopril before. Both UZMA inhibitors and Entresto will be contraindicated to a history of ACEi-associated angioedema. Discussed with cardio and pulm. Alejandro mmendation for BIPAP at home/discharge for his biventricular heart failure and significant pulmonary hypertension. Continue Coreg and Aldactone. 05/16/18: Decreased Lasix to 40 mg IV daily from q12 due to alkalosis. 05/19/2018-patient has history of congestive heart failure. Which is combined s ystolic diastolic biventricular failure. Patient is on Lasix 40 mg IV twice daily. cardiology on board. EF is 30-35%. Grade 2 diastolic dysfunction and dilated left and right ventricular chambers. Patient has AICD. Patient is not on UZMA inhibitors because of history of angioedema. UZMA inhibitors and Entresto are not contraindicated because of the ACEi associated angioedema. Patient is also on Coreg and Aldactone. And is to discharge him to [place] on BiPAP. 05/20/2018-has a combined systolic diastolic biventricular failure. EF is 30- 35%. Echocardiogram shows grade 2 diastolic dysfunction and dilated left and right ventricular chambers. Patient has AICD. Patient is not on UZMA inhibitors because of history of angioedema. Stoped Aldactone today because potassium is 5.1. 05/21/2018-patient has history of congestive heart failure combined systolic diastolic biventricular failure with EF of 30-35%. Patient is allergic to UZMA inhibitors gives angioedema. Latest potassium is 5.1. We are going to check his potassium levels today. Yesterday I stopped his spironolactone and we stopped potassium supplementation. 05/22/2018-his latest potassium is 5.0 potassium supplementation was discontinued spironolactone was discontinued, has EF is 30-35%. Patient is not in fluid overload I am going to follow the patient regular basis. 05/23/2018-potassium level is 5.0 stable patient ejection fraction is 30-45%. Patient has combined systolic diastolic biventricular heart failure. He has AICD. And is to continue the present management. 05/24/2018-patient's has a biventricular systolic and diastolic heart failure with EF of 35-40%. Patient has AICD. He is on Lasix 40 IV daily I am going to switch her to 40 mg p.o. daily. 05/25/2018-patient is not in fluid overload chest was clear no pedal edema. He has biventricular systolic/diastolic heart failure with EF of 35-40%. He is on Lasix.Combined systolic and diastolic biventricular failure. Continue Lasix 40 mg daily. Cardiology following. Echo shows an EF of 30-35%, grade 2 diastolic dysfunction and dilated left and right ventricular. Patient already has an AICD. Patient is not on UZMA inhibitor hence is not on optimal medical therapy. CHF medication regimen cannot be optimized as patient has had angioedema from captopril before. Both UZMA inhibitors and Entresto will be contraindicated to a history of ACEi-associated angioedema. Discussed with cardio and pulm. Recommendation for BIPAP at home/discharge for his biventricular heart failure and significant pulmonary hypertension. Continue Coreg. Aldactone was d/raghav due to his potassium trending up. Aldactone resumed. Continue Lasix 40 mg daily. 06/02/2017-patient has combined systolic and diastolic biventricular failure he is on Lasix 40 mg p.o. daily and also on Aldactone. Patient is not in fluid overload. And is to continue the present management. 06/03/2017 patient has history of combined systolic diastolic biventricular failure on Lasix 40 mg p.o. daily and is also on Aldactone potassium levels going back up again it was 5.2 today I am going to stop the Aldactone and and follow the potassium levels. 06/04/2018-pt is not in fluid overload. plan to continue present treatment. 06/05/2018-patient has history of for combined systolic/diastolic biventricular failure on Lasix 40 mg p.o. daily Aldactone was discontinued because of the persistently elevated potassium levels. Potassium level today is 3.7. 06/06/2018-patient has a biventricular heart failure with EF of less than 30% patient is not in fluid overload. Plan is to continue the present management. 06/07/2018 patient has history of biventricular heart failure with EF of less than 30% patient is not in fluid overload plan is to continue the present management. (3) Pleural effusion Is this a current diagnosis for this admission?: Yes (4) CAD (coronary artery disease) Is this a current diagnosis for this admission?: Yes - Time Time Spent with patient: Less than 15 minutes Medications reviewed and adjusted accordingly: Yes Anticipated discharge: Home
[2018-06-07] MEDS: CYCLOSPORINE 0.05% OPH EMULSIO 0.4 ML DROPERETTE OU SCH (11:05)
[2018-06-07] MEDS: METHYL SALICYLATE/MENTHOL BALM 29 GM TP PRN (19:49)
[2018-06-07] MEDS: ROPINIROLE HCL 0.25 MG TABLET PO SCH (21:10)
[2018-06-08] MEDS: ACETAMINOPHEN 325 MG TABLET PO SCH ×4 (10:15→23:43)
[2018-06-08] MEDS: ASPIRIN 81 MG TABLET, CHEWABLE PO SCH (10:16)
[2018-06-08] MEDS: DIGOXIN 0.125 MG TABLET PO SCH (10:16)
[2018-06-08] MEDS: GABAPENTIN 100 MG CAPSULE PO SCH ×4 (10:16→23:43)
[2018-06-08] MEDS: SPIRONOLACTONE 25 MG TABLET PO SCH (10:18)
[2018-06-08] MEDS: DOCUSATE SODIUM 100 MG CAPSULE PO SCH ×2 (10:18→17:21)
[2018-06-08] MEDS: OMEGA-3 ACID ETHYL ESTERS 1 GM CAPSULE PO SCH ×2 (10:18→17:21)
[2018-06-08] MEDS: FUROSEMIDE 40 MG TABLET PO SCH (10:19)
[2018-06-08] MEDS: CARVEDILOL 3.125 MG TABLET PO SCH ×2 (10:19→21:10)
[2018-06-08] MEDS: ENOXAPARIN SODIUM INJ 30 MG/0.3 ML DISP.SYRIN SUBCUT SCH (10:21)
[2018-06-08] MEDS: POLYVINYL ALCOHOL 1.4% OPH SOLN 15 ML OP SCH ×4 (10:21→21:26)
[2018-06-08] MEDS: CYCLOSPORINE 0.05% OPH EMULSIO 0.4 ML DROPERETTE OU SCH (10:22)
[2018-06-08] MEDS ORDERED: NITROGLYCERIN 0.4 MG/TAB 25 TAB/BOTTLE ONE (12:57)
[2018-06-08] MEDS: NITROGLYCERIN 0.4 MG/TAB 25 TAB/BOTTLE SL PRN ×2 (13:02→13:07)
--- NOTE | 2018-06-08 13:02 | PDOC PROGRESS REPORT ---
Subjective Progress Note for:: 06/08/18 Subjective:: This is a 62-year-old male with a past medical history of CAD, prior CABG, COPD, diet-controlled DM, chronic systolic heart failure from ischemic cardiomyopathy with prior AICD placement, chronic respiratory failure on home O2, history of CVA with residual partial expressive aphasia who initially presented with increasing shortness of breath and leg swelling. Patient was admitted for CHF exacerbation. Patient has partial expressive aphasia (has some residual slurring and pauses) but is coherent and is able to converse with provider. He says his SOB is at baseline but he becomes short of breath when lying supine. He has been having persistent orthopnea. 05/13: Discussed in length again this morning with caregiver (Nuria) and patient. We discussed the need for thoracentesis again this morning including the indication due to his persistent orthopnea and significant bilateral pleural effusion. Also discussed the small risk of pneumothorax. Patient did agree undergo thoracentesis as he has been having patient orthopnea. Patient is oriented to person, place and situation. Also discussed with corporate meeting planner on bedside about possible option to be transferred to a [facility] in [place] as patient is a his history of placement and disposition. He does not want to be transferred at this time and would prefer to stay here. 05/14: Patient does appear to have into capacity to make his own medical decisions. Patient was also evaluated by psych who deemed the same. Discussed in length again today about plan and disposition. Patient says he does not want to go to a senior living or rehab. He also does not want to talk about his CODE STATUS and says that he will "sort it out" later. Offered palliative care consult and he is receptive to it but not hospice. He says his breathing has improved after the thoracentesis. Master Control Engineer recommended BiPAP at home. Patient is resistant on using BiPAP at home but agrees to try it here while inpatient and see if he tolerates it. 05/15: Upon encounter this morning, patient was sleeping on the recliner. Patient says that his house is not fixed yet. He says he does not want to go to any of the surrounding SNF/rehab facilities at this time but is agreeable to being transferred to the [facility] in [place]. Convinced on trying the BiPAP and he says he will try wearing it. 05/16: No acute event overnight. Patient has complied with BIPAP. He says his breathing has slightly improved but still has orthopnea. Denies chest pain or dizziness. 05/17: Patient says his breathing has improved and he feels better today. He says he can use the BIPAP for 2 hrs but is willing to try to extend it to 3-4 hrs today. 05/18: Patient only used BIPAP for 1.5 hrs last night. Upon encounter, he does say that he breathes and feels better when on BIPAP. He was advised on increa sing his BIPAP use again today. He denies worsening SOB or chest pain. Still awaiting for update on transfer to [facility] in [facility]. 05/19/2018-no acute events in the last 24 hours as per the patient he is using BiPAP 3-4 hours a day. He is comfortably in the chair on oxygen via nasal tom kurt. Denies any problems. Waiting for placement in [facility]. 05/20/2018-no acute events in the last 24 hours. Patient is on oxygen via nasal cannula walking in the room. Denies any complaints. Using BiPAP 4 hours a day. Patient is waiting for placement at [facility]. 05/21/2018 no acute events in the last 24 hours. Patient is complaining of pain in both arms. I am going to put him on Percocet 09/25/2024 every 8 as needed for pain. Patient is on 2 L nasal cannula pulse ox is 96%. He is using BiPAP 4 hours a day. 05/22/2018-no acute events over the last 24 hours. Patient is afebrile. Patient is complaining of dry skin and itching he wants some Benadryl. 05/23/2018 no acute events in the last 24 hours. His BiPAP requirements are decreased. Patient is afebrile. His pulse ox is 99% on 2 L. Notably sitting in the bed communicating okay. 05/24/2018 -no acute events in the last 24 hours. Patient pulse oxes 99% on 2 L. Is comfortably sleeping in his chair. Denies any complaints. 05/25/2018-no acute events in the last 24 hours. Pulse ox is 100% on 2 L. He is comfortable in the chair communicating very well. Denies any complaints. [place] 05/26/18: He has been more complaint with BIPAP. He denies acute SOB and feels like he is at his baseline. 05/27/18: No acute event overnight. He did complaint of transient chest tightness this morning after he ate a big breakfast (ham and omelet). He says it only lasted for a few seconds. EKG was negative for acute changes. 05/28/18: No acute event. No acute symptoms, no chest pain or SOB. He is at his baseline. 05/29/18: No acute event. Patient denies any acute complaint. Updated by RN and corporate meeting planner that patient's house will be condemned due to multiple issues. 05/30/18: No acute issues. Patient is still awaiting placement. 05/31/18:Patient is still awaiting placement. Discussed with Eryn on bedside, patient's web communications specialist who says she is getting her new house this friday and may be able to have patient live with her. 06/01/18: No acute issues. Plan to discharge patient to her web communications specialist's new house later this week with home health. Print Press Operator says she is confident she is able to take care of him at her new house. Patient also prefers discussed disposition. 06/02/2018-patient is afebrile no acute events in the last 24 hours patient waiting to go to caretakers home. 06/03/2018 no acute events in last 24 hours. Patient is comfortable in the chair talking to the family members on the phone. Denies any complaints. 06/04/2018-no acute events in the last 24 hrs. afebrile .pulse ox 98% on 2lts. 06/05/2018-no acute events in the last 24 hours. Patient is afebrile. Pulse ox is 99% on 2 L. 06/06/2018-no acute events in the last 24 hours. Patient is afebrile. Comfortably in the chair sleeping. Denies any complaints. 06/07/2018 patient is afebrile and doing well no complaints no acute events in the last 24 hours. 2018 has saw the patient this morning is comfortably in the chair complaining of left hand pain resting pain medications. His pulse ox are stable. Afebrile. Few minutes ago nurse vision rehabilitation therapist Spencer called me to notify that patient is complaining of chest pains vital signs are stable pulse ox is normal so I requested him to do the EKG and cardiac enzymes x3 along with nitroglycerin 0.5 mg subcu every 5 minutes as needed for chest pain. Reason For Visit: CHF Physical Exam Vital Signs: Temp Pulse Resp BP Pulse Ox 98.0 F 100 16 106/65 100 06/07/18 19:29 06/07/18 19:29 06/07/18 19:29 06/07/18 19:29 06/07/18 19:29 Intake & Output 06/07/18 06/08/18 06/09/18 06:59 06:59 06:59 Intake Total 746 797 Output Total 1725 1400 Balance -979 -603 Weight 86.6 kg 86.6 kg General appearance: PRESENT: no acute distress Head exam: PRESENT: atraumatic Eye exam: PRESENT: PERRLA Neck exam: ABSENT: carotid bruit, JVD, lymphadenopathy, thyromegaly Respiratory exam: PRESENT: clear to auscultation rahul. ABSENT: rales, rhonchi, wheezes Cardiovascular exam: PRESENT: RRR. ABSENT: diastolic murmur, rubs, systolic murmur GI/Abdominal exam: PRESENT: normal bowel sounds, soft. ABSENT: distended, guarding, mass, organolmegaly, rebound, tenderness Neurological exam: PRESENT: alert, awake, oriented to person, oriented to place, oriented to time, oriented to situation, CN II-XII grossly intact. ABSENT: motor sensory deficit Psychiatric exam: PRESENT: appropriate affect, normal mood. ABSENT: homicidal ideation, suicidal ideation Results Laboratory Results: 06/03/18 08:12 06/03/18 08:12 05/11/18 05/11/18 05/11/18 09:35 09:35 09:35 Creatine Kinase 37 L Troponin I 0.071 NT-Pro-B Natriuret Pep 6800 H 05/11/18 05/11/18 05/12/18 12:30 19:00 01:06 Creatine Kinase Troponin I 0.067 0.064 0.050 NT-Pro-B Natriuret Pep 05/23/18 05/24/18 05/27/18 10:36 09:38 10:01 Creatine Kinase Troponin I 0.060 NT-Pro-B Natriuret Pep 819 889 06/03/18 08:12 Creatine Kinase Troponin I NT-Pro-B Natriuret Pep 1420 H Impressions: Thoracentesis Ultrasound 05/13/18 10:06 IMPRESSION: SUCCESSFUL THORACENTESIS USING ULTRASOUND GUIDANCE. Chest X-Ray 06/01/18 00:00 IMPRESSION: Stable massive cardiomegaly and trace bilateral pleural effusions Assessment & Plan - Diagnosis (1) Acute and chronic respiratory failure with hypoxia Is this a current diagnosis for this admission?: Yes Plan: 05/19/2018 acute on chronic respiratory failure with hypoxia probably secondary to CHF exacerbation. He is on BiPAP for 3-4 hours/day. Plan is to continue the current management. 05/20/2018-patient was admitted for acute on chronic respiratory failure with hypoxia probably secondary to CHF exacerbation. He is using BiPAP 4 hours a day. No acute events in the last 24 hours. Plan is to continue the present management. 05/21/2018-patient is comfortably in the chair on 2 L oxygen via nasal cannula. Acute on chronic respiratory failure resolved with hypoxia resolved. Is awaiting for placement in [facility]. 05/22/2018-pulse ox on 2 L is 100% today. Patient is comfortably in the chair. Only complaint is his complaint of dry skin and itching. We are waiting for the [place] placement. He is using BiPAP 3-4 hours a day. His acute on chronic respiratory failure with hypoxia probably secondary to CHF exacerbation. I am going to recheck his BMP tomorrow. Pt is not in fluid overload today. 05/23/2018 pulse ox on 2 L is 99% patient is able to walk in the hallway on 2 L oxygen without any problems. He did not have need to use the BiPAP in the last 24 hours. He has been BNP is around 820. no Signs of any fluid overload. Plan is to continue the present management. 05/24/2018 patient was admitted for acute on chronic respiratory failure with hypoxia hypoxia resolved. Patient is not on BiPAP anymore. Pulse ox is pulse ox is 91% on 2 L. Patient waiting for placement in [place]. 05/25/2018-2 L oxygen pulse ox 100% hypoxia with acute respiratory failure resolved patient is not using the BiPAP anymore. He is waiting for placement at [facility]. 06/02/2017-pulse ox on 2 L is 97% today. Using the BiPAP on and off. [facility] The meantime will continue the present management. 06/03/2018-patient pulse ox is 99% on 2 L. He is using the BiPAP on and off. No complaints from the patient. [facility]. 06/04/2018-pulse ox is 100% on 2lts.using BIPAP on and off. no complaints. comfortable in chair eating lunch. 06/05/2018 pulse ox is 99% on 2 L. Not using the BiPAP at this time. Comfortably in the chair communicating well. Waiting for the placement. 06/06/2018-pulse ox on 2 L is 99%. Patient is not using the BiPAP anymore. He acute on chronic respiratory failure with hypoxia and hypercapnia resolved. 06/08/2018-pulse ox is 100% on 2 L. Patient is not on BiPAP anymore. Acute on chronic respiratory failure with hypoxia and hypercapnia resolved. 06/07/2018 patient pulse oxes are 98% on 2 L patient is off the BiPAP right now acute on chronic respiratory failure with hypoxia and hypercapnia resolved [facility] (2) Acute on chronic systolic (congestive) heart failure Is this a current diagnosis for this admission?: Yes Plan: Combined systolic and diastolic biventricular failure. Continue Lasix 40 mg daily. Cardiology following. Echo shows an EF of 30-35%, grade 2 diastolic dysfunction and dilated left and right ventricular. Patient already has an AICD. Patient is not on UZMA inhibitor hence is not on optimal medical therapy. CHF medication regimen cannot be optimized as patient has had angioedema from captopril before. Both UZMA inhibitors and Entresto will be contraindicated to a history of ACEi-associated angioedema. Discussed with cardio and pulm. Recommendation for BIPAP at home/discharge for his biventricular heart failure and significant pulmonary hypertension. Continue Coreg and Aldactone. 05/16/18: Decreased Lasix to 40 mg IV daily from q12 due to alkalosis. 05/19/2018-patient has history of congestive heart failure. Which is combined systolic diastolic biventricular failure. Patient is on Lasix 40 mg IV twice daily. cardiology on board. EF is 30-35%. Grade 2 diastolic dysfunction and dilated left and right ventricular chambers. Patient has AICD. Patient is not on UZMA inhibitors because of history of angioedema. UZMA inhibitors and Entresto are not contraindicated because of the ACEi associated angioedema. Patient is also on Coreg and Aldactone. And [facility]. 05/20/2018-has a combined systolic diastolic biventricular failure. EF is 30- 35%. Echocardiogram shows grade 2 diastolic dysfunction and dilated left and right ventricular chambers. Patient has AICD. Patient is not on UZMA inhibitors because of history of angioedema. Stoped Aldactone today because potassium is 5.1. 05/21/2018-patient has history of congestive heart failure combined systolic diastolic biventricular failure with EF of 30-35%. Patient is allergic to UZMA inhibitors gives angioedema. Latest potassium is 5.1. We are going to check his potassium levels today. Yesterday I stopped his spironolactone and we stopped potassium supplementation. 05/22/2018-his latest potassium is 5.0 potassium supplementation was discontinued spironolactone was discontinued, has EF is 30-35%. Patient is not in fluid overload I am going to follow the patient regular basis. 05/23/2018-potassium level is 5.0 stable patient ejection fraction is 30-45%. Patient has combined systolic diastolic biventricular heart failure. He has AICD. And is to continue the present management. 05/24/2018-patient's has a biventricular systolic and diastolic heart failure with EF of 35-40%. Patient has AICD. He is on Lasix 40 IV daily I am going to switch her to 40 mg p.o. daily. 05/25/2018-patient is not in fluid overload chest was clear no pedal edema. He has biventricular systolic/diastolic heart failure with EF of 35-40%. He is on Lasix.Combined systolic and diastolic biventricular failure. Continue Lasix 40 mg daily. Cardiology following. Echo shows an EF of 30-35%, grade 2 diastolic dysfunction and dilated left and right ventricular. Patient already has an AICD. Patient is not on UZMA inhibitor hence is not on optimal medical therapy. CHF medication regimen cannot be optimized as patient has had angioedema from captopril before. Both UZMA inhibitors and Entresto will be contraindicated to a history of ACEi-associated angioedema. Discussed with cardio and pulm. Recommendation for BIPAP at home/discharge for his biventricular heart failure and significant pulmonary hypertension. Continue Coreg. Aldactone was d/raghav due to his potassium trending up. Aldactone resumed. Continue Lasix 40 mg daily. 06/02/2017-patient has combined systolic and diastolic biventricular failure he is on Lasix 40 mg p.o. daily and also on Aldactone. Patient is not in fluid overload. And is to continue the present management. 06/03/2017 patient has history of combined systolic diastolic biventricular failure on Lasix 40 mg p.o. daily and is also on Aldactone potassium levels going back up again it was 5.2 today I am going to stop the Aldactone and and follow the potassium levels. 06/04/2018-pt is not in fluid overload. plan to continue present treatment. 06/05/2018-patient has history of for combined systolic/diastolic biventricular failure on Lasix 40 mg p.o. daily Aldactone was discontinued because of the persistently elevated potassium levels. Potassium level today is 3.7. 06/06/2018-patient has a biventricular heart failure with EF of less than 30% patient is not in fluid overload. Plan is to continue the present management. 06/08/2018-patient has history of heart failure with EF of less than 30% patient is not in fluid overload. He has AICD. 06/07/2018 patient has history of biventricular heart failure with EF of less than 30% patient is not in fluid overload plan is to continue the present management. (3) Pleural effusion Is this a current diagnosis for this admission?: Yes (4) CAD (coronary artery disease) Is this a current diagnosis for this admission?: Yes Plan: 05/19/2018 patient has history of coronary artery disease. No complaints of any chest pains in the last 24-48 hours. Patient is on statins, aspirin, beta- blockers. Plan is to continue the present management. 05/20/2018 patient history of coronary artery disease. No complaints of any chest pains during the hospital stay. 05/21/2018 plan is to continue the current management. 05/22/2018 patient is on statins aspirin and beta-blockers no complaints of chest pain. Plan is to continue the present management. 05/23/2018-plan is to continue the present management patient is asymptomatic. 09/22/2017-patient has history of coronary artery disease, no complaints of chest pain during the hospital stay. 06/03/2018-patient has history of coronary artery disease no complaints of chest pain during the hospital stay. 06/04/2018- to continue present rx 06/08/2018 patient has history of coronary artery disease status post stent placement. Today he is complaining of chest pains requested for stat EKG cardiac enzymes x3. plan to start on nitroglycerin 0.4 mg every 5 minutes as needed for chest pain. - Time Time Spent with patient: 15-24 minutes Medications reviewed and adjusted accordingly: Yes Anticipated discharge: Home
[2018-06-08] MEDS: INSULIN LISPRO 100 UNIT/ML 3 ML VIAL SUBCUT PRN ×2 (13:24→21:16)
[2018-06-08 14:34] LABS: CREATINE KINASE MB 1.92 ng/mL (<4.55); TROPONIN I 0.06 ng/mL
[2018-06-08] MEDS: OXYCODONE-ACETAMINOPHEN 5-325 MG TABLET PO PRN (16:22)
[2018-06-08 19:49] LABS: CREATINE KINASE MB 1.75 ng/mL (<4.55); TROPONIN I 0.058 ng/mL
[2018-06-08] MEDS: ROPINIROLE HCL 0.25 MG TABLET PO SCH (21:16)
[2018-06-08] MEDS ORDERED: LORAZEPAM 0.5 MG TABLET SL ONE (23:25)
[2018-06-08] MEDS ORDERED: NALBUPHINE HCL INJ 10 MG/1 ML AMPULE IM ONE (23:25)
--- NOTE | 2018-06-08 23:42 | RADIOLOGY REPORT (SQ) ---
XR CHEST 1 VIEW HISTORY: Chest pain. COMPARISON: 06/01/2018 FINDINGS: There is marked cardiomegaly with bilateral pleural effusions consistent with pulmonary edema. Left chest wall pacemaker is stable. No discernible pneumothorax. The osseous structures are intact. IMPRESSION: Cardiogenic pulmonary edema with bilateral pleural effusions.
--- NOTE | 2018-06-09 00:09 | EKG REPORT ---
SEVERITY:- ABNORMAL ECG - SINUS RHYTHM NONSPECIFIC INTRAVENTRICULAR CONDUCTION DELAY BORDERLINE INFERIOR Q WAVES BORDERLINE R WAVE PROGRESSION, ANTERIOR LEADS : Confirmed by: Pooja Patel 09-Jun-2018 00:08:24
--- NOTE | 2018-06-09 00:10 | EKG REPORT ---
SEVERITY:- ABNORMAL ECG - SINUS TACHYCARDIA RIGHT AXIS DEVIATION CONSIDER INFERIOR INFARCT BORDERLINE R WAVE PROGRESSION, ANTERIOR LEADS BORDERLINE T ABNORMALITIES, ANTERIOR LEADS PROLONGED QT INTERVAL : Confirmed by: Pooja Patel 09-Jun-2018 00:08:51
[2018-06-09 01:43] LABS: CREATINE KINASE MB 1.58 ng/mL (<4.55); TROPONIN I 0.063 ng/mL
[2018-06-09] MEDS: OXYCODONE-ACETAMINOPHEN 5-325 MG TABLET PO PRN ×2 (08:46→17:25)
[2018-06-09] MEDS: GABAPENTIN 100 MG CAPSULE PO SCH ×4 (08:47→23:34)
[2018-06-09] MEDS: ACETAMINOPHEN 325 MG TABLET PO SCH ×4 (08:50→23:34)
[2018-06-09 09:10] LABS: CREATINE KINASE MB 1.79 ng/mL (<4.55); TROPONIN I 0.064 ng/mL
[2018-06-09] MEDS: DOCUSATE SODIUM 100 MG CAPSULE PO SCH ×2 (09:37→17:25)
[2018-06-09] MEDS: OMEGA-3 ACID ETHYL ESTERS 1 GM CAPSULE PO SCH ×2 (09:37→17:12)
[2018-06-09] MEDS: CARVEDILOL 3.125 MG TABLET PO SCH ×2 (09:37→20:59)
[2018-06-09] MEDS: FUROSEMIDE 40 MG TABLET PO SCH (09:37)
[2018-06-09] MEDS: DIGOXIN 0.125 MG TABLET PO SCH (09:38)
[2018-06-09] MEDS: SPIRONOLACTONE 25 MG TABLET PO SCH (09:38)
[2018-06-09] MEDS: ASPIRIN 81 MG TABLET, CHEWABLE PO SCH (09:38)
[2018-06-09] MEDS: ENOXAPARIN SODIUM INJ 30 MG/0.3 ML DISP.SYRIN SUBCUT SCH (09:39)
[2018-06-09] MEDS: POLYVINYL ALCOHOL 1.4% OPH SOLN 15 ML OP SCH ×4 (09:40→20:59)
[2018-06-09] MEDS: CYCLOSPORINE 0.05% OPH EMULSIO 0.4 ML DROPERETTE OU SCH (09:40)
[2018-06-09 13:52] LABS: CREATINE KINASE MB 1.99 ng/mL (<4.55); TROPONIN I 0.051 ng/mL
--- NOTE | 2018-06-09 15:38 | PDOC PROGRESS REPORT ---
Subjective Progress Note for:: 06/09/18 Subjective:: This is a 62-year-old male with a past medical history of CAD, prior CABG, COPD, diet-controlled DM, chronic systolic heart failure from ischemic cardiomyopathy with prior AICD placement, chronic respiratory failure on home O2, history of CVA with residual partial expressive aphasia who initially presented with increasing shortness of breath and leg swelling. Patient was admitted for CHF exacerbation. Patient has partial expressive aphasia (has some residual slurring and pauses) but is coherent and is able to converse with provider. He says his SOB is at baseline but he becomes short of breath when lying supine. He has been having persistent orthopnea. 05/13: Discussed in length again this morning with caregiver (Nuria) and patient. We discussed the need for thoracentesis again this morning including the indication due to his persistent orthopnea and significant bilateral pleural effusion. Also discussed the small risk of pneumothorax. Patient did agree undergo thoracentesis as he has been having patient orthopnea. Patient is oriented to person, place and situation. Also discussed with tool planner on bedside about possible option to be transferred to a [facility] in [place] as patient is a his history of placement and disposition. He does not want to be transferred at this time and would prefer to stay here. 05/14: Patient does appear to have into capacity to make his own medical decisions. Patient was also evaluated by psych who deemed the same. Discussed in length again today about plan and disposition. Patient says he does not want to go to a fdc or rehab. He also does not want to talk about his CODE STATUS and says that he will "sort it out" later. Offered palliative care consult and he is receptive to it but not hospice. He says his breathing has improved after the thoracentesis. Loan Collector recommended BiPAP at home. Patient is resistant on using BiPAP at home but agrees to try it here while inpatient and see if he tolerates it. 05/15: Upon encounter this morning, patient was sleeping on the recliner. Patient says that his house is not fixed yet. He says he does not want to go to any of the surrounding SNF/rehab facilities at this time but is agreeable to being transferred to the [facility] [address] in [place]. Convinced on trying the BiPAP and he says he will try wearing it. 05/16: No acute event overnight. Patient has complied with BIPAP. He says his breathing has slightly improved but still has orthopnea. Denies chest pain or dizziness. 05/17: Patient says his breathing has improved and he feels better today. He says he can use the BIPAP for 2 hrs but is willing to try to extend it to 3-4 hrs today. 05/18: Patient only used BIPAP for 1.5 hrs last night. Upon encounter, he does say that he breathes and feels better when on BIPAP. He was advised on increas ing his BIPAP use again today. He denies worsening SOB or chest pain. Still awaiting for update on transfer to [facility] in [facility]. Patient has remained stable with no acute issues in the interim and has just been waiting for placement. 05/26/18: He has been more complaint with BIPAP. He denies acute SOB and feels like he is at his baseline. 05/27/18: No acute event overnight. He did complaint of transient chest tightness this morning after he ate a big breakfast (ham and omelet). He says it only lasted for a few seconds. EKG was negative for acute changes. 05/28/18: No acute event. No acute symptoms, no chest pain or SOB. He is at his baseline. 05/29/18: No acute event. Patient denies any acute complaint. Updated by RN and tool planner that patient's house will be condemned due to multiple issues. 05/30/18: No acute issues. Patient is still awaiting placement. 05/31/18:Patient is still awaiting placement. Discussed with Eryn on bedside, patient's dispute specialist who says she is getting her new house soon and may be able to have patient live with her. 06/09/18: Reassumed care today. No acute issues in the interim. Patient still here due to placement issues. Apparently, his dispute specialist's house was not ready yet. He is at his baseline and denies chest pain or SOB at the moment. Reason For Visit: CHF Physical Exam Vital Signs: Temp Pulse Resp BP Pulse Ox 97.9 F 94 18 124/67 98 06/09/18 12:25 06/09/18 12:25 06/09/18 12:25 06/09/18 12:25 06/09/18 12:25 Intake & Output 06/08/18 06/09/18 06/10/18 06:59 06:59 06:59 Intake Total 797 1080 420 Output Total 1400 900 200 Balance -603 180 220 Weight 190 lb 14.725 oz 190 lb 14.725 oz General appearance: PRESENT: no acute distress, well-developed, well-nourished Head exam: PRESENT: atraumatic, normocephalic Eye exam: PRESENT: conjunctiva pink, EOMI, PERRLA. ABSENT: scleral icterus Ear exam: PRESENT: normal external ear exam Mouth exam: PRESENT: moist, tongue midline Neck exam: ABSENT: carotid bruit, JVD, lymphadenopathy, thyromegaly Respiratory exam: PRESENT: decreased breath sounds - slightly dec BS on the bases, unchanged and is not worse. ABSENT: rales, wheezes Cardiovascular exam: PRESENT: RRR, systolic murmur Pulses: PRESENT: normal dorsalis pedis pul GI/Abdominal exam: PRESENT: normal bowel sounds, soft. ABSENT: distended, guar ding, mass, organolmegaly, rebound, tenderness Rectal exam: PRESENT: deferred Extremities exam: PRESENT: +1 edema Neurological exam: PRESENT: alert, awake, oriented to person, oriented to place, oriented to time, oriented to situation Results Laboratory Results: 06/03/18 08:12 06/03/18 08:12 05/11/18 05/11/18 05/11/18 09:35 09:35 09:35 Creatine Kinase 37 L CK-MB (CK-2) Troponin I 0.071 NT-Pro-B Natriuret Pep 6800 H 05/11/18 05/11/18 05/12/18 12:30 19:00 01:06 Creatine Kinase CK-MB (CK-2) Troponin I 0.067 0.064 0.050 NT-Pro-B Natriuret Pep 05/23/18 05/24/18 05/27/18 10:36 09:38 10:01 Creatine Kinase CK-MB (CK-2) Troponin I 0.060 NT-Pro-B Natriuret Pep 819 889 06/03/18 06/08/18 06/08/18 08:12 13:40 13:40 Creatine Kinase 39 L CK-MB (CK-2) 1.92 Troponin I 0.060 NT-Pro-B Natriuret Pep 1420 H 06/08/18 06/08/18 06/09/18 19:03 19:03 00:59 Creatine Kinase 36 L 34 L CK-MB (CK-2) 1.75 Troponin I 0.058 NT-Pro-B Natriuret Pep 06/09/18 06/09/18 06/09/18 00:59 08:04 08:04 Creatine Kinase 32 L CK-MB (CK-2) 1.58 1.79 Troponin I 0.063 0.064 NT-Pro-B Natriuret Pep 06/09/18 06/09/18 12:52 12:52 Creatine Kinase 46 L CK-MB (CK-2) 1.99 Troponin I 0.051 NT-Pro-B Natriuret Pep Impressions: Thoracentesis Ultrasound 05/13/18 10:06 IMPRESSION: SUCCESSFUL THORACENTESIS USING ULTRASOUND GUIDANCE. Chest X-Ray 06/08/18 00:00 IMPRESSION: Cardiogenic pulmonary edema with bilateral pleural effusions. Assessment & Plan - Diagnosis (1) Acute and chronic respiratory failure with hypoxia Is this a current diagnosis for this admission?: Yes Plan: Secondary to CHF exacerbation. Continue BIPAP prn. (2) Acute on chronic systolic (congestive) heart failure Is this a current diagnosis for this admission?: Yes Plan: Combined systolic and diastolic biventricular failure. Continue Lasix 40 mg daily. Cardiology following. Echo shows an EF of 30-35%, grade 2 diastolic dysfunction and dilated left and right ventricular. Patient already has an AICD. Patient is not on UZMA inhibitor hence is not on optimal medical therapy. CHF medication regimen cannot be optimized as patient has had angioedema from captopril before. Both UZMA inhibitors and Entresto will be contraindicated to a history of ACEi-associated angioedema. Discussed with cardio and pulm. Alejandro mmendation for BIPAP at home/discharge for his biventricular heart failure and significant pulmonary hypertension. Continue Coreg. Aldactone resumed.Will recheck BMP today to recheck potassium level. (3) Pleural effusion Is this a current diagnosis for this admission?: Yes Plan: S/P right sided thoracentesis (750 cc) on 05/13/18. Pleural fluid analysis is consistent with transudative effusion likely related to patient's CHF. Chest x- ray after thoracentesis did show improvement in aeration of the right lower lung salazar. (4) CAD (coronary artery disease) Is this a current diagnosis for this admission?: Yes Plan: Stable. Continue aspirin, statin and beta steve. - Time Time Spent with patient: 15-24 minutes
[2018-06-09 16:20] LABS: ANION GAP 8 (5-19); BLOOD UREA NITROGEN 31 mg/dL (7-20); CALCIUM 9.1 mg/dL (8.4-10.2); CARBON DIOXIDE 36 mmol/L (22-30); CHLORIDE 96 mmol/L (98-107); GLUCOSE 130 mg/dL (75-110); POTASSIUM 5.4 mmol/L (3.6-5.0); SODIUM 139.9 mmol/L (137-145)
[2018-06-09 19:46] LABS: CREATINE KINASE MB 1.8 ng/mL (<4.55); TROPONIN I 0.072 ng/mL
[2018-06-09] MEDS: ROPINIROLE HCL 0.25 MG TABLET PO SCH (21:01)
[2018-06-10] MEDS: GABAPENTIN 100 MG CAPSULE PO SCH ×4 (09:50→23:02)
[2018-06-10] MEDS: ACETAMINOPHEN 325 MG TABLET PO SCH ×4 (09:53→23:02)
[2018-06-10] MEDS: CARVEDILOL 3.125 MG TABLET PO SCH ×2 (09:53→21:03)
[2018-06-10] MEDS: OXYCODONE-ACETAMINOPHEN 5-325 MG TABLET PO PRN ×2 (09:54→13:57)
[2018-06-10] MEDS: OMEGA-3 ACID ETHYL ESTERS 1 GM CAPSULE PO SCH ×2 (09:55→17:34)
[2018-06-10] MEDS: ASPIRIN 81 MG TABLET, CHEWABLE PO SCH (09:55)
[2018-06-10] MEDS: DIGOXIN 0.125 MG TABLET PO SCH (09:55)
[2018-06-10] MEDS: CYCLOSPORINE 0.05% OPH EMULSIO 0.4 ML DROPERETTE OU SCH (09:56)
[2018-06-10] MEDS: ENOXAPARIN SODIUM INJ 30 MG/0.3 ML DISP.SYRIN SUBCUT SCH (09:56)
[2018-06-10] MEDS: DOCUSATE SODIUM 100 MG CAPSULE PO SCH ×2 (09:56→17:34)
[2018-06-10] MEDS: SPIRONOLACTONE 25 MG TABLET PO SCH (09:57)
[2018-06-10] MEDS: POLYVINYL ALCOHOL 1.4% OPH SOLN 15 ML OP SCH ×4 (09:57→21:05)
[2018-06-10] MEDS: FUROSEMIDE 40 MG TABLET PO SCH (09:57)
[2018-06-10] MEDS: FUROSEMIDE 20 MG TABLET PO SCH (12:01)
--- NOTE | 2018-06-10 15:13 | PDOC PROGRESS REPORT ---
Subjective Progress Note for:: 06/10/18 Subjective:: This is a 62-year-old male with a past medical history of CAD, prior CABG, COPD, diet-controlled DM, chronic systolic heart failure from ischemic cardiomyopathy with prior AICD placement, chronic respiratory failure on home O2, history of CVA with residual partial expressive aphasia who initially presented with increasing shortness of breath and leg swelling. Patient was admitted for CHF exacerbation. Patient has partial expressive aphasia (has some residual slurring and pauses) but is coherent and is able to converse with provider. He says his SOB is at baseline but he becomes short of breath when lying supine. He has been having persistent orthopnea. 05/13: Discussed in length again this morning with caregiver (Nuria) and patient. We discussed the need for thoracentesis again this morning including the indication due to his persistent orthopnea and significant bilateral pleural effusion. Also discussed the small risk of pneumothorax. Patient did agree undergo thoracentesis as he has been having patient orthopnea. Patient is oriented to person, place and situation. Also discussed with conservation planner on bedside about possible option to be transferred to a [facility] in [place] as patient is a his history of placement and disposition. He does not want to be transferred at this time and would prefer to stay here. 05/14: Patient does appear to have into capacity to make his own medical decisions. Patient was also evaluated by psych who deemed the same. Discussed in length again today about plan and disposition. Patient says he does not want to go to a fdc or rehab. He also does not want to talk about his CODE STATUS and says that he will "sort it out" later. Offered palliative care consult and he is receptive to it but not hospice. He says his breathing has improved after the thoracentesis. Acquisition Editor recommended BiPAP at home. Patient is resistant on using BiPAP at home but agrees to try it here while inpatient and see if he tolerates it. 05/15: Upon encounter this morning, patient was sleeping on the recliner. Patient says that his house is not fixed yet. He says he does not want to go to any of the surrounding SNF/rehab facilities at this time but is agreeable to being transferred to the [facility] in [place]. Convinced on trying the BiPAP and he says he will try wearing it. 05/16: No acute event overnight. Patient has complied with BIPAP. He says his breathing has slightly improved but still has orthopnea. Denies chest pain or dizziness. 05/17: Patient says his breathing has improved and he feels better today. He says he can use the BIPAP for 2 hrs but is willing to try to extend it to 3-4 hrs today. 05/18: Patient only used BIPAP for 1.5 hrs last night. Upon encounter, he does say that he breathes and feels better when on BIPAP. He was advised on increas ing his BIPAP use again today. He denies worsening SOB or chest pain. Still awaiting for update on transfer to [facility] in [facility]. Patient has remained stable with no acute issues in the interim and has just been waiting for placement. 05/26/18: He has been more complaint with BIPAP. He denies acute SOB and feels like he is at his baseline. 05/27/18: No acute event overnight. He did complaint of transient chest tightness this morning after he ate a big breakfast (ham and omelet). He says it only lasted for a few seconds. EKG was negative for acute changes. 05/28/18: No acute event. No acute symptoms, no chest pain or SOB. He is at his baseline. 05/29/18: No acute event. Patient denies any acute complaint. Updated by RN and conservation planner that patient's house will be condemned due to multiple issues. 05/30/18: No acute issues. Patient is still awaiting placement. 05/31/18:Patient is still awaiting placement. Discussed with Eryn on bedside, patient's mattress stuffer who says she is getting her new house soon and may be able to have patient live with her. 06/09/18: Reassumed care today. No acute issues in the interim. Patient still here due to placement issues. Apparently, his mattress stuffer's house was not ready yet. He is at his baseline and denies chest pain or SOB at the moment. 06/10/18: No acute issues. He denies any acute complaint. He is here due to placement issues. Reason For Visit: CHF Physical Exam Vital Signs: Temp Pulse Resp BP Pulse Ox 98.3 F 97 14 101/67 98 06/10/18 08:00 06/10/18 08:00 06/10/18 08:00 06/10/18 08:00 06/10/18 08:00 Intake & Output 06/09/18 06/10/18 06/11/18 06:59 06:59 06:59 Intake Total 1080 982 Output Total 900 948 Balance 180 34 Weight 190 lb 14.725 oz General appearance: PRESENT: no acute distress, well-developed, well-nourished Head exam: PRESENT: atraumatic, normocephalic Eye exam: PRESENT: conjunctiva pink, EOMI, PERRLA. ABSENT: scleral icterus Ear exam: PRESENT: normal external ear exam Neck exam: ABSENT: carotid bruit, JVD, lymphadenopathy, thyromegaly Respiratory exam: PRESENT: decreased breath sounds - slightly dec BS on the bases, unchanged. ABSENT: rales, rhonchi, wheezes Cardiovascular exam: PRESENT: RRR. ABSENT: bradycardia, tachycardia Pulses: PRESENT: normal dorsalis pedis pul GI/Abdominal exam: ABSENT: distended Rectal exam: PRESENT: deferred Extremities exam: PRESENT: +1 edema Neurological exam: PRESENT: alert, awake, oriented to person, oriented to place, oriented to time, oriented to situation Results Laboratory Results: 06/03/18 08:12 06/09/18 15:46 06/09/18 15:46 Sodium 139.9 Potassium 5.4 H Chloride 96 L Carbon Dioxide 36 H Anion Gap 8 BUN 31 H Creatinine 1.58 H Est GFR ( Amer) 54 L Est GFR (Non-Af Amer) 44 L Glucose 130 H Calcium 9.1 05/11/18 05/11/18 05/11/18 09:35 09:35 09:35 Creatine Kinase 37 L CK-MB (CK-2) Troponin I 0.071 NT-Pro-B Natriuret Pep 6800 H 05/11/18 05/11/18 05/12/18 12:30 19:00 01:06 Creatine Kinase CK-MB (CK-2) Troponin I 0.067 0.064 0.050 NT-Pro-B Natriuret Pep 05/23/18 05/24/18 05/27/18 10:36 09:38 10:01 Creatine Kinase CK-MB (CK-2) Troponin I 0.060 NT-Pro-B Natriuret Pep 819 889 06/03/18 06/08/18 06/08/18 08:12 13:40 13:40 Creatine Kinase 39 L CK-MB (CK-2) 1.92 Troponin I 0.060 NT-Pro-B Natriuret Pep 1420 H 06/08/18 06/08/18 06/09/18 19:03 19:03 00:59 Creatine Kinase 36 L 34 L CK-MB (CK-2) 1.75 Troponin I 0.058 NT-Pro-B Natriuret Pep 06/09/18 06/09/18 06/09/18 00:59 08:04 08:04 Creatine Kinase 32 L CK-MB (CK-2) 1.58 1.79 Troponin I 0.063 0.064 NT-Pro-B Natriuret Pep 06/09/18 06/09/18 06/09/18 12:52 12:52 19:00 Creatine Kinase 46 L 31 L CK-MB (CK-2) 1.99 Troponin I 0.051 NT-Pro-B Natriuret Pep 06/09/18 19:00 Creatine Kinase CK-MB (CK-2) 1.80 Troponin I 0.072 NT-Pro-B Natriuret Pep Impressions: Thoracentesis Ultrasound 05/13/18 10:06 IMPRESSION: SUCCESSFUL THORACENTESIS USING ULTRASOUND GUIDANCE. Chest X-Ray 06/08/18 00:00 IMPRESSION: Cardiogenic pulmonary edema with bilateral pleural effusions. Assessment & Plan - Diagnosis (1) Acute and chronic respiratory failure with hypoxia Is this a current diagnosis for this admission?: Yes Plan: Secondary to CHF exacerbation. Continue BIPAP prn. (2) Acute on chronic systolic (congestive) heart failure Is this a current diagnosis for this admission?: Yes Plan: Combined systolic and diastolic biventricular failure. Continue Lasix 40 mg daily. Cardiology following. Echo shows an EF of 30-35%, grade 2 diastolic dysfunction and dilated left and right ventricular. Patient already has an AICD. Patient is not on UZMA inhibitor hence is not on optimal medical therapy. CHF medication regimen cannot be optimized as patient has had angioedema from captopril before. Both UZMA inhibitors and Entresto will be contraindicated to a history of ACEi-associated angioedema. Discussed with cardio and pulm. Recommendation for BIPAP at home/discharge for his biventricular heart failure and significant pulmonary hypertension. Continue Coreg. Aldactone discontinued as patient did have recurrence of hyperkalemia when it was resumed. Creatinine trended up to 1.5. Decrease Lasix to 20 mg daily today. (3) Pleural effusion Is this a current diagnosis for this admission?: Yes Plan: S/P right sided thoracentesis (750 cc) on 05/13/18. Pleural fluid analysis is consistent with transudative effusion likely related to patient's CHF. Chest x- ray after thoracentesis did show improvement in aeration of the right lower lung salazar. (4) CAD (coronary artery disease) Is this a current diagnosis for this admission?: Yes Plan: Stable. Continue aspirin, statin and beta steve. - Time Time Spent with patient: 15-24 minutes
[2018-06-10] MEDS: ROPINIROLE HCL 0.25 MG TABLET PO SCH (21:01)
[2018-06-11 07:08] LABS: ANION GAP 6 (5-19); BLOOD UREA NITROGEN 31 mg/dL (7-20); CALCIUM 9.3 mg/dL (8.4-10.2); CARBON DIOXIDE 35 mmol/L (22-30); CHLORIDE 98 mmol/L (98-107); GLUCOSE 100 mg/dL (75-110); SODIUM 138.6 mmol/L (137-145)
[2018-06-11] MEDS: ACETAMINOPHEN 325 MG TABLET PO SCH ×4 (08:37→23:44)
[2018-06-11] MEDS: GABAPENTIN 100 MG CAPSULE PO SCH ×4 (08:37→23:44)
[2018-06-11] MEDS: OMEGA-3 ACID ETHYL ESTERS 1 GM CAPSULE PO SCH ×2 (09:59→17:34)
[2018-06-11] MEDS: ASPIRIN 81 MG TABLET, CHEWABLE PO SCH (09:59)
[2018-06-11] MEDS: DIGOXIN 0.125 MG TABLET PO SCH (09:59)
[2018-06-11] MEDS: CARVEDILOL 3.125 MG TABLET PO SCH ×2 (09:59→21:23)
[2018-06-11] MEDS: DOCUSATE SODIUM 100 MG CAPSULE PO SCH ×2 (10:00→17:34)
[2018-06-11] MEDS: CYCLOSPORINE 0.05% OPH EMULSIO 0.4 ML DROPERETTE OU SCH (10:00)
[2018-06-11] MEDS: FUROSEMIDE 20 MG TABLET PO SCH (10:00)
[2018-06-11] MEDS: POLYVINYL ALCOHOL 1.4% OPH SOLN 15 ML OP SCH ×4 (10:02→21:26)
[2018-06-11] MEDS: TRAMADOL HCL 50 MG TABLET PO PRN ×2 (10:47→19:43)
--- NOTE | 2018-06-11 15:48 | PDOC PROGRESS REPORT ---
Subjective Progress Note for:: 06/11/18 Subjective:: This is a 62-year-old male with a past medical history of CAD, prior CABG, COPD, diet-controlled DM, chronic systolic heart failure from ischemic cardiomyopathy with prior AICD placement, chronic respiratory failure on home O2, history of CVA with residual partial expressive aphasia who initially presented with increasing shortness of breath and leg swelling. Patient was admitted for CHF exacerbation. Patient has partial expressive aphasia (has some residual slurring and pauses) but is coherent and is able to converse with provider. He says his SOB is at baseline but he becomes short of breath when lying supine. He has been having persistent orthopnea. 05/13: Discussed in length again this morning with caregiver (Nuria) and patient. We discussed the need for thoracentesis again this morning including the indication due to his persistent orthopnea and significant bilateral pleural effusion. Also discussed the small risk of pneumothorax. Patient did agree undergo thoracentesis as he has been having patient orthopnea. Patient is oriented to person, place and situation. Also discussed with production planner scheduler on bedside about possible option to be transferred to a [facility] in [place] as patient is a his history of placement and disposition. He does not want to be transferred at this time and would prefer to stay here. 05/14: Patient does appear to have into capacity to make his own medical decisions. Patient was also evaluated by psych who deemed the same. Discussed in length again today about plan and disposition. Patient says he does not want to go to a half-way or rehab. He also does not want to talk about his CODE STATUS and says that he will "sort it out" later. Offered palliative care consult and he is receptive to it but not hospice. He says his breathing has improved after the thoracentesis. Manager Engagement recommended BiPAP at home. Patient is resistant on using BiPAP at home but agrees to try it here while inpatient and see if he tolerates it. 05/15: Upon encounter this morning, patient was sleeping on the recliner. Patient says that his house is not fixed yet. He says he does not want to go to any of the surrounding SNF/rehab facilities at this time but is agreeable to being transferred to the [facility] in [place]. Convinced on trying the BiPAP and he says he will try wearing it. 05/16: No acute event overnight. Patient has complied with BIPAP. He says his breathing has slightly improved but still has orthopnea. Denies chest pain or dizziness. 05/17: Patient says his breathing has improved and he feels better today. He says he can use the BIPAP for 2 hrs but is willing to try to extend it to 3-4 hrs today. 05/18: Patient only used BIPAP for 1.5 hrs last night. Upon encounter, he does say that he breathes and feels better when on BIPAP. He was advised on increas ing his BIPAP use again today. He denies worsening SOB or chest pain. Still awaiting for update on transfer to [facility] in [facility]. Patient has remained stable with no acute issues in the interim and has just been waiting for placement. 05/26/18: He has been more complaint with BIPAP. He denies acute SOB and feels like he is at his baseline. 05/27/18: No acute event overnight. He did complaint of transient chest tightness this morning after he ate a big breakfast (ham and omelet). He says it only lasted for a few seconds. EKG was negative for acute changes. 05/28/18: No acute event. No acute symptoms, no chest pain or SOB. He is at his baseline. 05/29/18: No acute event. Patient denies any acute complaint. Updated by RN and production planner scheduler that patient's house will be condemned due to multiple issues. 05/30/18: No acute issues. Patient is still awaiting placement. 05/31/18:Patient is still awaiting placement. Discussed with Eryn on bedside, patient's clinical informatics specialist who says she is getting her new house soon and may be able to have patient live with her. 06/09/18: Reassumed care today. No acute issues in the interim. Patient still here due to placement issues. Apparently, his clinical informatics specialist's house was not ready yet. He is at his baseline and denies chest pain or SOB at the moment. 06/11/18: No acute issues. He denies any acute complaint aside from chronic arthritic pain on his hands. He is still here due to placement issues. Reason For Visit: CHF Physical Exam Vital Signs: Temp Pulse Resp BP Pulse Ox 98.9 F 95 16 100/68 95 06/11/18 12:00 06/11/18 12:00 06/11/18 12:00 06/11/18 12:00 06/11/18 12:00 Intake & Output 06/10/18 06/11/18 06/12/18 06:59 06:59 06:59 Intake Total 982 1374 Output Total 948 1625 Balance 34 -251 Weight 190 lb 14.725 oz General appearance: PRESENT: no acute distress, well-developed, well-nourished Head exam: PRESENT: atraumatic, normocephalic Eye exam: PRESENT: conjunctiva pink, EOMI, PERRLA. ABSENT: scleral icterus Ear exam: PRESENT: normal external ear exam Neck exam: ABSENT: carotid bruit, JVD, lymphadenopathy, thyromegaly Respiratory exam: PRESENT: decreased breath sounds - slightly dec BS on the bases, unchanged. ABSENT: rales, rhonchi, wheezes Cardiovascular exam: PRESENT: irregular rhythm. ABSENT: rubs Pulses: PRESENT: normal dorsalis pedis pul GI/Abdominal exam: PRESENT: normal bowel sounds, soft. ABSENT: distended, guarding, mass, organolmegaly, rebound, tenderness Rectal exam: PRESENT: deferred Extremities exam: PRESENT: +1 edema Neurological exam: PRESENT: alert, awake, oriented to person, oriented to place, oriented to time, oriented to situation Results Laboratory Results: 06/03/18 08:12 06/11/18 06:28 06/11/18 06:28 Sodium 138.6 Potassium 5.0 Chloride 98 Carbon Dioxide 35 H Anion Gap 6 BUN 31 H Creatinine 1.41 H Est GFR ( Amer) > 60 Est GFR (Non-Af Amer) 51 L Glucose 100 Calcium 9.3 05/11/18 05/11/18 05/11/18 09:35 09:35 09:35 Creatine Kinase 37 L CK-MB (CK-2) Troponin I 0.071 NT-Pro-B Natriuret Pep 6800 H 05/11/18 05/11/18 05/12/18 12:30 19:00 01:06 Creatine Kinase CK-MB (CK-2) Troponin I 0.067 0.064 0.050 NT-Pro-B Natriuret Pep 05/23/18 05/24/18 05/27/18 10:36 09:38 10:01 Creatine Kinase CK-MB (CK-2) Troponin I 0.060 NT-Pro-B Natriuret Pep 819 889 06/03/18 06/08/18 06/08/18 08:12 13:40 13:40 Creatine Kinase 39 L CK-MB (CK-2) 1.92 Troponin I 0.060 NT-Pro-B Natriuret Pep 1420 H 06/08/18 06/08/18 06/09/18 19:03 19:03 00:59 Creatine Kinase 36 L 34 L CK-MB (CK-2) 1.75 Troponin I 0.058 NT-Pro-B Natriuret Pep 06/09/18 06/09/18 06/09/18 00:59 08:04 08:04 Creatine Kinase 32 L CK-MB (CK-2) 1.58 1.79 Troponin I 0.063 0.064 NT-Pro-B Natriuret Pep 06/09/18 06/09/18 06/09/18 12:52 12:52 19:00 Creatine Kinase 46 L 31 L CK-MB (CK-2) 1.99 Troponin I 0.051 NT-Pro-B Natriuret Pep 06/09/18 19:00 Creatine Kinase CK-MB (CK-2) 1.80 Troponin I 0.072 NT-Pro-B Natriuret Pep Impressions: Thoracentesis Ultrasound 05/13/18 10:06 IMPRESSION: SUCCESSFUL THORACENTESIS USING ULTRASOUND GUIDANCE. Chest X-Ray 06/08/18 00:00 IMPRESSION: Cardiogenic pulmonary edema with bilateral pleural effusions. Assessment & Plan - Diagnosis (1) Acute and chronic respiratory failure with hypoxia Is this a current diagnosis for this admission?: Yes Plan: Secondary to CHF exacerbation. Continue BIPAP prn. (2) Acute on chronic systolic (congestive) heart failure Is this a current diagnosis for this admission?: Yes Plan: Combined systolic and diastolic biventricular failure. Continue Lasix 40 mg daily. Cardiology following. Echo shows an EF of 30-35%, grade 2 diastolic dysfunction and dilated left and right ventricular. Patient already has an AICD. Patient is not on UZMA inhibitor hence is not on optimal medical therapy. CHF medication regimen cannot be optimized as patient has had angioedema from capt opril before. Both UZMA inhibitors and Entresto will be contraindicated to a history of ACEi-associated angioedema. Discussed with cardio and pulm. Recommendation for BIPAP at home/discharge for his biventricular heart failure and significant pulmonary hypertension. Continue Coreg. Aldactone discontinued as patient did have recurrence of hyperkalemia when it was resumed. Creatinine trended up to 1.5. Decrease Lasix to 20 mg daily today. (3) Pleural effusion Is this a current diagnosis for this admission?: Yes Plan: S/P right sided thoracentesis (750 cc) on 05/13/18. Pleural fluid analysis is consistent with transudative effusion likely related to patient's CHF. Chest x- ray after thoracentesis did show improvement in aeration of the right lower lung salazar. (4) CAD (coronary artery disease) Is this a current diagnosis for this admission?: Yes Plan: Stable. Continue aspirin, statin and beta steve. (5) Hyperkalemia Is this a current diagnosis for this admission?: Yes Plan: Improved after discontinuing Aldactone. (6) DEANNA (acute kidney injury) Is this a current diagnosis for this admission?: Yes Plan: Improving. Creatinine continues to trend down to 1.4. - Time Time Spent with patient: 25-34 minutes
[2018-06-11] MEDS: ROPINIROLE HCL 0.25 MG TABLET PO SCH (21:23)
[2018-06-12] MEDS: OMEGA-3 ACID ETHYL ESTERS 1 GM CAPSULE PO SCH ×2 (09:57→17:36)
[2018-06-12] MEDS: CARVEDILOL 3.125 MG TABLET PO SCH ×2 (09:58→22:37)
[2018-06-12] MEDS: DOCUSATE SODIUM 100 MG CAPSULE PO SCH ×2 (09:59→17:36)
[2018-06-12] MEDS: POLYVINYL ALCOHOL 1.4% OPH SOLN 15 ML OP SCH ×4 (09:59→22:39)
[2018-06-12] MEDS: DIGOXIN 0.125 MG TABLET PO SCH (09:59)
[2018-06-12] MEDS: FUROSEMIDE 20 MG TABLET PO SCH (09:59)
[2018-06-12] MEDS: CYCLOSPORINE 0.05% OPH EMULSIO 0.4 ML DROPERETTE OU SCH (10:00)
[2018-06-12] MEDS: GABAPENTIN 100 MG CAPSULE PO SCH ×4 (10:10→23:55)
[2018-06-12] MEDS: ACETAMINOPHEN 325 MG TABLET PO SCH ×4 (10:11→23:54)
[2018-06-12] MEDS: ASPIRIN 81 MG TABLET, CHEWABLE PO SCH (10:31)
[2018-06-12] MEDS: TRAMADOL HCL 50 MG TABLET PO PRN ×3 (10:31→22:37)
--- NOTE | 2018-06-12 15:28 | PDOC PROGRESS REPORT ---
Subjective Progress Note for:: 06/12/18 Subjective:: This is a 62-year-old male with a past medical history of CAD, prior CABG, COPD, diet-controlled DM, chronic systolic heart failure from ischemic cardiomyopathy with prior AICD placement, chronic respiratory failure on home O2, history of CVA with residual partial expressive aphasia who initially presented with increasing shortness of breath and leg swelling. Patient was admitted for CHF exacerbation. Patient has partial expressive aphasia (has some residual slurring and pauses) but is coherent and is able to converse with provider. He says his SOB is at baseline but he becomes short of breath when lying supine. He has been having persistent orthopnea. 05/13: Discussed in length again this morning with caregiver (Nuria) and patient. We discussed the need for thoracentesis again this morning including the indication due to his persistent orthopnea and significant bilateral pleural effusion. Also discussed the small risk of pneumothorax. Patient did agree undergo thoracentesis as he has been having patient orthopnea. Patient is oriented to person, place and situation. Also discussed with program planner on bedside about possible option to be transferred to a [facility] in [place] as patient is a his history of placement and disposition. He does not want to be transferred at this time and would prefer to stay here. 05/14: Patient does appear to have into capacity to make his own medical decisions. Patient was also evaluated by psych who deemed the same. Discussed in length again today about plan and disposition. Patient says he does not want to go to a penitentiary or rehab. He also does not want to talk about his CODE STATUS and says that he will "sort it out" later. Offered palliative care consult and he is receptive to it but not hospice. He says his breathing has improved after the thoracentesis. Mender Hand recommended BiPAP at home. Patient is resistant on using BiPAP at home but agrees to try it here while inpatient and see if he tolerates it. 05/15: Upon encounter this morning, patient was sleeping on the recliner. Patient says that his house is not fixed yet. He says he does not want to go to any of the surrounding SNF/rehab facilities at this time but is agreeable to being transferred to the [facility] in [place]. Convinced on trying the BiPAP and he says he will try wearing it. 05/16: No acute event overnight. Patient has complied with BIPAP. He says his breathing has slightly improved but still has orthopnea. Denies chest pain or dizziness. 05/17: Patient says his breathing has improved and he feels better today. He says he can use the BIPAP for 2 hrs but is willing to try to extend it to 3-4 hrs today. 05/18: Patient only used BIPAP for 1.5 hrs last night. Upon encounter, he does say that he breathes and feels better when on BIPAP. He was advised on increas ing his BIPAP use again today. He denies worsening SOB or chest pain. Still awaiting for update on transfer to [facility] in [facility]. Patient has remained stable with no acute issues in the interim and has just been waiting for placement. 05/26/18: He has been more complaint with BIPAP. He denies acute SOB and feels like he is at his baseline. 05/27/18: No acute event overnight. He did complaint of transient chest tightness this morning after he ate a big breakfast (ham and omelet). He says it only lasted for a few seconds. EKG was negative for acute changes. 05/28/18: No acute event. No acute symptoms, no chest pain or SOB. He is at his baseline. 05/29/18: No acute event. Patient denies any acute complaint. Updated by RN and program planner that patient's house will be condemned due to multiple issues. 05/30/18: No acute issues. Patient is still awaiting placement. 05/31/18:Patient is still awaiting placement. Discussed with Eryn on bedside, patient's director writing who says she is getting her new house soon and may be able to have patient live with her. 06/09/18: Reassumed care today. No acute issues in the interim. Patient still here due to placement issues. Apparently, his director writing's house was not ready yet. He is at his baseline and denies chest pain or SOB at the moment. 06/12/18: No acute issues. He denies any acute complaint aside from chronic arthritic pain on his hands but says he does get relief with heat pads and prn pain meds. He is still here due to placement issues. Awaiting placement at a facility in [place]. Reason For Visit: CHF Physical Exam Vital Signs: Temp Pulse Resp BP Pulse Ox 98.4 F 99 16 116/66 100 06/12/18 12:00 06/11/18 20:00 06/12/18 12:00 06/12/18 12:00 06/12/18 12:00 Intake & Output 06/11/18 06/12/18 06/13/18 06:59 06:59 06:59 Intake Total 1374 1242 Output Total 1625 825 Balance -251 417 Weight 190 lb 14.725 oz 190 lb 14.725 oz General appearance: PRESENT: no acute distress, well-developed, well-nourished Head exam: PRESENT: atraumatic, normocephalic Eye exam: PRESENT: conjunctiva pink, EOMI, PERRLA. ABSENT: scleral icterus Ear exam: PRESENT: normal external ear exam Mouth exam: PRESENT: moist, tongue midline Neck exam: ABSENT: carotid bruit, JVD, lymphadenopathy, thyromegaly Respiratory exam: PRESENT: decreased breath sounds - unchanged slightly dec BS on the bases. ABSENT: rales, rhonchi, wheezes Cardiovascular exam: PRESENT: RRR. ABSENT: diastolic murmur, rubs, systolic murmur Pulses: PRESENT: normal dorsalis pedis pul GI/Abdominal exam: PRESENT: normal bowel sounds, soft. ABSENT: distended, guarding, mass, organolmegaly, rebound, tenderness Rectal exam: PRESENT: deferred Extremities exam: PRESENT: +2 edema Neurological exam: PRESENT: alert, awake, oriented to person, oriented to place, oriented to time, oriented to situation Results Laboratory Results: 06/03/18 08:12 06/11/18 06:28 05/11/18 05/11/18 05/11/18 09:35 09:35 09:35 Creatine Kinase 37 L CK-MB (CK-2) Troponin I 0.071 NT-Pro-B Natriuret Pep 6800 H 05/11/18 05/11/18 05/12/18 12:30 19:00 01:06 Creatine Kinase CK-MB (CK-2) Troponin I 0.067 0.064 0.050 NT-Pro-B Natriuret Pep 05/23/18 05/24/18 05/27/18 10:36 09:38 10:01 Creatine Kinase CK-MB (CK-2) Troponin I 0.060 NT-Pro-B Natriuret Pep 819 889 06/03/18 06/08/18 06/08/18 08:12 13:40 13:40 Creatine Kinase 39 L CK-MB (CK-2) 1.92 Troponin I 0.060 NT-Pro-B Natriuret Pep 1420 H 06/08/18 06/08/18 06/09/18 19:03 19:03 00:59 Creatine Kinase 36 L 34 L CK-MB (CK-2) 1.75 Troponin I 0.058 NT-Pro-B Natriuret Pep 06/09/18 06/09/18 06/09/18 00:59 08:04 08:04 Creatine Kinase 32 L CK-MB (CK-2) 1.58 1.79 Troponin I 0.063 0.064 NT-Pro-B Natriuret Pep 06/09/18 06/09/18 06/09/18 12:52 12:52 19:00 Creatine Kinase 46 L 31 L CK-MB (CK-2) 1.99 Troponin I 0.051 NT-Pro-B Natriuret Pep 06/09/18 19:00 Creatine Kinase CK-MB (CK-2) 1.80 Troponin I 0.072 NT-Pro-B Natriuret Pep Impressions: Thoracentesis Ultrasound 05/13/18 10:06 IMPRESSION: SUCCESSFUL THORACENTESIS USING ULTRASOUND GUIDANCE. Chest X-Ray 06/08/18 00:00 IMPRESSION: Cardiogenic pulmonary edema with bilateral pleural effusions. Assessment & Plan - Diagnosis (1) Acute and chronic respiratory failure with hypoxia Is this a current diagnosis for this admission?: Yes Plan: Secondary to CHF exacerbation. Continue BIPAP prn. (2) Acute on chronic systolic (congestive) heart failure Is this a current diagnosis for this admission?: Yes Plan: Combined systolic and diastolic biventricular failure. Continue Lasix 40 mg daily. Cardiology following. Echo shows an EF of 30-35%, grade 2 diastolic dysfunction and dilated left and right ventricular. Patient already has an AICD. Patient is not on UZMA inhibitor hence is not on optimal medical therapy. CHF medication regimen cannot be optimized as patient has had angioedema from captopril before. Both UZMA inhibitors and Entresto will be contraindicated to a history of ACEi-associated angioedema. Discussed with cardio and pulm. Recommendation for BIPAP at home/discharge for his biventricular heart failure and significant pulmonary hypertension. Continue Coreg. Aldactone discontinued as patient did have recurrence of hyperk alemia when it was resumed. 06/11/18: Creatinine trended up to 1.5. Decreased Lasix to 20 mg daily today. Continue Lasix at 20 mg daily. Repeat BMP tomorrow. (3) Pleural effusion Is this a current diagnosis for this admission?: Yes Plan: S/P right sided thoracentesis (750 cc) on 05/13/18. Pleural fluid analysis is consistent with transudative effusion likely related to patient's CHF. Chest x- ray after thoracentesis did show improvement in aeration of the right lower lung salazar. (4) CAD (coronary artery disease) Is this a current diagnosis for this admission?: Yes Plan: Stable. Continue aspirin, statin and beta steve. (5) Hyperkalemia Is this a current diagnosis for this admission?: Yes Plan: Improved after discontinuing Aldactone. (6) DEANNA (acute kidney injury) Is this a current diagnosis for this admission?: Yes Plan: Improving. Creatinine trended down to 1.4. Recheck BMP tomorrow. - Time Time Spent with patient: 15-24 minutes
[2018-06-12] MEDS ORDERED: DEXTROSE 40% GEL 15 GM TUBE PO PRN ×2 (17:27)
[2018-06-12] MEDS ORDERED: DEXTROSE 50%-WATER 25 GM/50 ML DISP.SYRIN IV PRN ×2 (17:27)
[2018-06-12] MEDS ORDERED: GLUCAGON,HUMAN RECOMB 1 MG INJ IM PRN (17:27)
[2018-06-12] MEDS: ROPINIROLE HCL 0.25 MG TABLET PO SCH (22:38)
[2018-06-13] MEDS: CYCLOSPORINE 0.05% OPH EMULSIO 0.4 ML DROPERETTE OU SCH (09:36)
[2018-06-13] MEDS: ACETAMINOPHEN 325 MG TABLET PO SCH ×3 (09:37→18:18)
[2018-06-13] MEDS: GABAPENTIN 100 MG CAPSULE PO SCH ×3 (09:37→18:18)
[2018-06-13 09:38] LABS: ANION GAP 7 (5-19); BLOOD UREA NITROGEN 26 mg/dL (7-20); CALCIUM 9.1 mg/dL (8.4-10.2); CARBON DIOXIDE 33 mmol/L (22-30); CHLORIDE 98 mmol/L (98-107); GLUCOSE 101 mg/dL (75-110); POTASSIUM 4.9 mmol/L (3.6-5.0)
[2018-06-13] MEDS: DOCUSATE SODIUM 100 MG CAPSULE PO SCH ×2 (09:47→18:18)
[2018-06-13] MEDS: OMEGA-3 ACID ETHYL ESTERS 1 GM CAPSULE PO SCH ×2 (09:47→18:18)
[2018-06-13] MEDS: FUROSEMIDE 20 MG TABLET PO SCH (09:48)
[2018-06-13] MEDS: DIGOXIN 0.125 MG TABLET PO SCH (09:48)
[2018-06-13] MEDS: POLYVINYL ALCOHOL 1.4% OPH SOLN 15 ML OP SCH ×3 (09:48→21:19)
[2018-06-13] MEDS: CARVEDILOL 3.125 MG TABLET PO SCH ×2 (09:48→21:18)
[2018-06-13] MEDS: ASPIRIN 81 MG TABLET, CHEWABLE PO SCH (09:48)
[2018-06-13] MEDS: TRAMADOL HCL 50 MG TABLET PO PRN ×2 (13:58→21:17)
--- NOTE | 2018-06-13 14:33 | PDOC PROGRESS REPORT ---
Subjective Progress Note for:: 06/13/18 Subjective:: This is a 62-year-old male with a past medical history of CAD, prior CABG, COPD, diet-controlled DM, chronic systolic heart failure from ischemic cardiomyopathy with prior AICD placement, chronic respiratory failure on home O2, history of CVA with residual partial expressive aphasia who initially presented with increasing shortness of breath and leg swelling. Patient was admitted for CHF exacerbation. Patient has partial expressive aphasia (has some residual slurring and pauses) but is coherent and is able to converse with provider. He says his SOB is at baseline but he becomes short of breath when lying supine. He has been having persistent orthopnea. 05/13: Discussed in length again this morning with caregiver (Nuria) and patient. We discussed the need for thoracentesis again this morning including the indication due to his persistent orthopnea and significant bilateral pleural effusion. Also discussed the small risk of pneumothorax. Patient did agree undergo thoracentesis as he has been having patient orthopnea. Patient is oriented to person, place and situation. Also discussed with search planner on bedside about possible option to be transferred to a [facility] in [place] as patient is a his history of placement and disposition. He does not want to be transferred at this time and would prefer to stay here. 05/14: Patient does appear to have into capacity to make his own medical decisions. Patient was also evaluated by psych who deemed the same. Discussed in length again today about plan and disposition. Patient says he does not want to go to a retirement or rehab. He also does not want to talk about his CODE STATUS and says that he will "sort it out" later. Offered palliative care consult and he is receptive to it but not hospice. He says his breathing has improved after the thoracentesis. Desktop Support Manager recommended BiPAP at home. Patient is resistant on using BiPAP at home but agrees to try it here while inpatient and see if he tolerates it. 05/15: Upon encounter this morning, patient was sleeping on the recliner. Patient says that his house is not fixed yet. He says he does not want to go to any of the surrounding SNF/rehab facilities at this time but is agreeable to being transferred to the [facility] in [place]. Convinced on trying the BiPAP and he says he will try wearing it. 05/16: No acute event overnight. Patient has complied with BIPAP. He says his breathing has slightly improved but still has orthopnea. Denies chest pain or dizziness. 05/17: Patient says his breathing has improved and he feels better today. He says he can use the BIPAP for 2 hrs but is willing to try to extend it to 3-4 hrs today. 05/18: Patient only used BIPAP for 1.5 hrs last night. Upon encounter, he does say that he breathes and feels better when on BIPAP. He was advised on increas ing his BIPAP use again today. He denies worsening SOB or chest pain. Still awaiting for update on transfer to [facility] in [facility]. Patient has remained stable with no acute issues in the interim and has just been waiting for placement. 05/26/18: He has been more complaint with BIPAP. He denies acute SOB and feels like he is at his baseline. 05/27/18: No acute event overnight. He did complaint of transient chest tightness this morning after he ate a big breakfast (ham and omelet). He says it only lasted for a few seconds. EKG was negative for acute changes. 05/28/18: No acute event. No acute symptoms, no chest pain or SOB. He is at his baseline. 05/29/18: No acute event. Patient denies any acute complaint. Updated by RN and search planner that patient's house will be condemned due to multiple issues. 05/30/18: No acute issues. Patient is still awaiting placement. 05/31/18:Patient is still awaiting placement. Discussed with Eryn on bedside, patient's manager materials management who says she is getting her new house soon and may be able to have patient live with her. 06/09/18: Reassumed care today. No acute issues in the interim. Patient still here due to placement issues. Apparently, his manager materials management's house was not ready yet. He is at his baseline and denies chest pain or SOB at the moment. 06/13/18: No acute issues. Denies chest pain or SOB. Discussed on bedisde with Eryn (manager materials management) today who says they are still doing repairs for a leakage at her house. Awaiting placement at a facility in [place]. Reason For Visit: CHF Physical Exam Vital Signs: Temp Pulse Resp BP Pulse Ox 98.4 F 90 16 95/63 L 100 06/13/18 11:05 06/13/18 11:05 06/13/18 11:05 06/13/18 11:05 06/13/18 11:05 Intake & Output 06/12/18 06/13/18 06/14/18 06:59 06:59 06:59 Intake Total 1242 1444 Output Total 825 1063 Balance 417 381 Weight 190 lb 14.725 oz 195 lb 12.328 oz General appearance: PRESENT: no acute distress, obese Head exam: PRESENT: atraumatic, normocephalic Eye exam: PRESENT: conjunctiva pink, EOMI, PERRLA. ABSENT: scleral icterus Ear exam: PRESENT: normal external ear exam Mouth exam: PRESENT: moist, tongue midline Neck exam: ABSENT: carotid bruit, JVD, lymphadenopathy, thyromegaly Respiratory exam: PRESENT: decreased breath sounds - unchanged. ABSENT: rales, rhonchi, wheezes Cardiovascular exam: PRESENT: irregular rhythm, systolic murmur Pulses: PRESENT: normal dorsalis pedis pul GI/Abdominal exam: ABSENT: mass, tenderness Rectal exam: PRESENT: deferred Extremities exam: PRESENT: +1 edema Neurological exam: PRESENT: alert, awake, oriented to person, oriented to place, oriented to time, oriented to situation Results Laboratory Results: 06/03/18 08:12 06/13/18 08:35 06/13/18 08:35 Sodium 138.0 Potassium 4.9 Chloride 98 Carbon Dioxide 33 H Anion Gap 7 BUN 26 H Creatinine 1.27 H Est GFR ( Amer) > 60 Est GFR (Non-Af Amer) 57 L Glucose 101 Calcium 9.1 05/11/18 05/11/18 05/11/18 09:35 09:35 09:35 Creatine Kinase 37 L CK-MB (CK-2) Troponin I 0.071 NT-Pro-B Natriuret Pep 6800 H 05/11/18 05/11/18 05/12/18 12:30 19:00 01:06 Creatine Kinase CK-MB (CK-2) Troponin I 0.067 0.064 0.050 NT-Pro-B Natriuret Pep 05/23/18 05/24/18 05/27/18 10:36 09:38 10:01 Creatine Kinase CK-MB (CK-2) Troponin I 0.060 NT-Pro-B Natriuret Pep 819 889 06/03/18 06/08/18 06/08/18 08:12 13:40 13:40 Creatine Kinase 39 L CK-MB (CK-2) 1.92 Troponin I 0.060 NT-Pro-B Natriuret Pep 1420 H 06/08/18 06/08/18 06/09/18 19:03 19:03 00:59 Creatine Kinase 36 L 34 L CK-MB (CK-2) 1.75 Troponin I 0.058 NT-Pro-B Natriuret Pep 06/09/18 06/09/18 06/09/18 00:59 08:04 08:04 Creatine Kinase 32 L CK-MB (CK-2) 1.58 1.79 Troponin I 0.063 0.064 NT-Pro-B Natriuret Pep 06/09/18 06/09/18 06/09/18 12:52 12:52 19:00 Creatine Kinase 46 L 31 L CK-MB (CK-2) 1.99 Troponin I 0.051 NT-Pro-B Natriuret Pep 06/09/18 19:00 Creatine Kinase CK-MB (CK-2) 1.80 Troponin I 0.072 NT-Pro-B Natriuret Pep Impressions: Thoracentesis Ultrasound 05/13/18 10:06 IMPRESSION: SUCCESSFUL THORACENTESIS USING ULTRASOUND GUIDANCE. Chest X-Ray 06/08/18 00:00 IMPRESSION: Cardiogenic pulmonary edema with bilateral pleural effusions. Assessment & Plan - Diagnosis (1) Acute and chronic respiratory failure with hypoxia Is this a current diagnosis for this admission?: Yes Plan: Secondary to CHF exacerbation. Continue BIPAP prn. (2) Acute on chronic systolic (congestive) heart failure Is this a current diagnosis for this admission?: Yes Plan: Combined systolic and diastolic biventricular failure. Continue Lasix 40 mg daily. Cardiology following. Echo shows an EF of 30-35%, grade 2 diastolic dysfunction and dilated left and right ventricular. Patient already has an AICD. Patient is not on UZMA inhibitor hence is not on optimal medical therapy. CHF medication regimen cannot be optimized as patient has had angioedema from captopril before. Both UZMA inhibitors and Entresto will be contraindicated to a history of ACEi-associated angioedema. Discussed with cardio and pulm. Recommendation for BIPAP at home/discharge for his biventricular heart failure and significant pulmonary hypertension. Continue Coreg. Aldactone discontinued as patient did have recurrence of hyperkalemia when it was resumed. 06/11/18: Creatinine trended up to 1.5. Decreased Lasix to 20 mg daily today. 06/13/18: Creatinine has improved down to 1.2. Will increase Lasix back to 40 mg daily as his Aldactone was also d/raghav due to hyperkalemia. (3) Pleural effusion Is this a current diagnosis for this admission?: Yes Plan: S/P right sided thoracentesis (750 cc) on 05/13/18. Pleural fluid analysis is consistent with transudative effusion likely related to patient's CHF. Chest x- ray after thoracentesis did show improvement in aeration of the right lower lung salazar. (4) CAD (coronary artery disease) Is this a current diagnosis for this admission?: Yes Plan: Stable. Continue aspirin, statin and beta steve. (5) Hyperkalemia Is this a current diagnosis for this admission?: Yes Plan: Resolved after discontinuing Aldactone. (6) DEANNA (acute kidney injury) Is this a current diagnosis for this admission?: Yes Plan: Improving. Creatinine continue to trend down to 1.2.
[2018-06-13] MEDS: DIPHENHYDRAMINE HCL 25 MG CAPSULE PO PRN (18:19)
[2018-06-13] MEDS: ROPINIROLE HCL 0.25 MG TABLET PO SCH (21:18)
[2018-06-14] MEDS: ACETAMINOPHEN 325 MG TABLET PO SCH ×5 (04:54→22:26)
[2018-06-14] MEDS: GABAPENTIN 100 MG CAPSULE PO SCH ×5 (04:54→22:27)
[2018-06-14] MEDS: DOCUSATE SODIUM 100 MG CAPSULE PO SCH ×2 (09:56→17:21)
[2018-06-14] MEDS: OMEGA-3 ACID ETHYL ESTERS 1 GM CAPSULE PO SCH ×2 (09:56→17:21)
[2018-06-14] MEDS: ASPIRIN 81 MG TABLET, CHEWABLE PO SCH (09:57)
[2018-06-14] MEDS: CARVEDILOL 3.125 MG TABLET PO SCH ×2 (09:58→21:22)
[2018-06-14] MEDS: FUROSEMIDE 40 MG TABLET PO SCH (10:00)
[2018-06-14] MEDS: DIGOXIN 0.125 MG TABLET PO SCH (10:00)
[2018-06-14] MEDS ORDERED: FUROSEMIDE 20 MG TABLET PO SCH (10:00)
[2018-06-14] MEDS: POLYVINYL ALCOHOL 1.4% OPH SOLN 15 ML OP SCH ×4 (10:01→22:27)
[2018-06-14] MEDS: CYCLOSPORINE 0.05% OPH EMULSIO 0.4 ML DROPERETTE OU SCH (10:01)
[2018-06-14] MEDS: TRAMADOL HCL 50 MG TABLET PO PRN ×2 (11:45→19:33)
[2018-06-14] MEDS: INSULIN LISPRO 100 UNIT/ML 3 ML VIAL SUBCUT PRN (11:48)
--- NOTE | 2018-06-14 12:36 | PDOC PROGRESS REPORT ---
Subjective Progress Note for:: 06/14/18 Subjective:: This is a 62-year-old male with a past medical history of CAD, prior CABG, COPD, diet-controlled DM, chronic systolic heart failure from ischemic cardiomyopathy with prior AICD placement, chronic respiratory failure on home O2, history of CVA with residual partial expressive aphasia who initially presented with increasing shortness of breath and leg swelling. Patient was admitted for CHF exacerbation. Patient has partial expressive aphasia (has some residual slurring and pauses) but is coherent and is able to converse with provider. He says his SOB is at baseline but he becomes short of breath when lying supine. He has been having persistent orthopnea. 05/13: Discussed in length again this morning with caregiver (Nuria) and patient. We discussed the need for thoracentesis again this morning including the indication due to his persistent orthopnea and significant bilateral pleural effusion. Also discussed the small risk of pneumothorax. Patient did agree undergo thoracentesis as he has been having patient orthopnea. Patient is oriented to person, place and situation. Also discussed with community development planner on bedside about possible option to be transferred to a [facility] in [place] as patient is a his history of placement and disposition. He does not want to be transferred at this time and would prefer to stay here. 05/14: Patient does appear to have into capacity to make his own medical decisions. Patient was also evaluated by psych who deemed the same. Discussed in length again today about plan and disposition. Patient says he does not want to go to a senior care or rehab. He also does not want to talk about his CODE STATUS and says that he will "sort it out" later. Offered palliative care consult and he is receptive to it but not hospice. He says his breathing has improved after the thoracentesis. Tank Storage Supervisor recommended BiPAP at home. Patient is resistant on using BiPAP at home but agrees to try it here while inpatient and see if he tolerates it. 05/15: Upon encounter this morning, patient was sleeping on the recliner. Patient says that his house is not fixed yet. He says he does not want to go to any of the surrounding SNF/rehab facilities at this time but is agreeable to being transferred to the [facility] in [place]. Convinced on trying the BiPAP and he says he will try wearing it. 05/16: No acute event overnight. Patient has complied with BIPAP. He says his breathing has slightly improved but still has orthopnea. Denies chest pain or dizziness. 05/17: Patient says his breathing has improved and he feels better today. He says he can use the BIPAP for 2 hrs but is willing to try to extend it to 3-4 hrs today. 05/18: Patient only used BIPAP for 1.5 hrs last night. Upon encounter, he does say that he breathes and feels better when on BIPAP. He was advised on increas ing his BIPAP use again today. He denies worsening SOB or chest pain. Still awaiting for update on transfer to [facility] in [facility]. Patient has remained stable with no acute issues in the interim and has just been waiting for placement. 05/26/18: He has been more complaint with BIPAP. He denies acute SOB and feels like he is at his baseline. 05/27/18: No acute event overnight. He did complaint of transient chest tightness this morning after he ate a big breakfast (ham and omelet). He says it only lasted for a few seconds. EKG was negative for acute changes. 05/28/18: No acute event. No acute symptoms, no chest pain or SOB. He is at his baseline. 05/29/18: No acute event. Patient denies any acute complaint. Updated by RN and community development planner that patient's house will be condemned due to multiple issues. 05/30/18: No acute issues. Patient is still awaiting placement. 05/31/18:Patient is still awaiting placement. Discussed with Eryn on bedside, patient's metal cut off saw operator who says she is getting her new house soon and may be able to have patient live with her. 06/09/18: Reassumed care today. No acute issues in the interim. Patient still here due to placement issues. Apparently, his metal cut off saw operator's house was not ready yet. He is at his baseline and denies chest pain or SOB at the moment. 06/13/18: No acute issues. Denies chest pain or SOB. Discussed on bedisde with Eryn (metal cut off saw operator) today who says they are still doing repairs for a leakage at her house. 06/14/18: No acute issues. Denies acute complaints today. Still awaiting placement. Reason For Visit: CHF Physical Exam Vital Signs: Temp Pulse Resp BP Pulse Ox 98.7 F 49 L 16 117/71 100 06/14/18 08:19 06/14/18 08:19 06/14/18 08:19 06/14/18 08:19 06/14/18 08:19 Intake & Output 06/13/18 06/14/18 06/15/18 06:59 06:59 06:59 Intake Total 1444 1152 Output Total 1063 1255 Balance 381 -103 Weight 195 lb 12.328 oz 190 lb 14.725 oz General appearance: PRESENT: no acute distress, well-developed, well-nourished Head exam: PRESENT: atraumatic, normocephalic Eye exam: PRESENT: conjunctiva pink, EOMI, PERRLA. ABSENT: scleral icterus Ear exam: PRESENT: normal external ear exam Mouth exam: PRESENT: moist, tongue midline Neck exam: ABSENT: carotid bruit, JVD, lymphadenopathy, thyromegaly Respiratory exam: PRESENT: clear to auscultation rahul. ABSENT: rales, rhonchi, wheezes Cardiovascular exam: PRESENT: RRR, systolic murmur. ABSENT: diastolic murmur, rubs Pulses: PRESENT: normal dorsalis pedis pul GI/Abdominal exam: PRESENT: normal bowel sounds, soft. ABSENT: distended, guarding, mass, organolmegaly, rebound, tenderness Rectal exam: PRESENT: deferred Results Laboratory Results: 06/03/18 08:12 06/13/18 08:35 05/11/18 05/11/18 05/11/18 09:35 09:35 09:35 Creatine Kinase 37 L CK-MB (CK-2) Troponin I 0.071 NT-Pro-B Natriuret Pep 6800 H 05/11/18 05/11/18 05/12/18 12:30 19:00 01:06 Creatine Kinase CK-MB (CK-2) Troponin I 0.067 0.064 0.050 NT-Pro-B Natriuret Pep 05/23/18 05/24/18 05/27/18 10:36 09:38 10:01 Creatine Kinase CK-MB (CK-2) Troponin I 0.060 NT-Pro-B Natriuret Pep 819 889 06/03/18 06/08/18 06/08/18 08:12 13:40 13:40 Creatine Kinase 39 L CK-MB (CK-2) 1.92 Troponin I 0.060 NT-Pro-B Natriuret Pep 1420 H 06/08/18 06/08/18 06/09/18 19:03 19:03 00:59 Creatine Kinase 36 L 34 L CK-MB (CK-2) 1.75 Troponin I 0.058 NT-Pro-B Natriuret Pep 06/09/18 06/09/18 06/09/18 00:59 08:04 08:04 Creatine Kinase 32 L CK-MB (CK-2) 1.58 1.79 Troponin I 0.063 0.064 NT-Pro-B Natriuret Pep 06/09/18 06/09/18 06/09/18 12:52 12:52 19:00 Creatine Kinase 46 L 31 L CK-MB (CK-2) 1.99 Troponin I 0.051 NT-Pro-B Natriuret Pep 06/09/18 19:00 Creatine Kinase CK-MB (CK-2) 1.80 Troponin I 0.072 NT-Pro-B Natriuret Pep Impressions: Thoracentesis Ultrasound 05/13/18 10:06 IMPRESSION: SUCCESSFUL THORACENTESIS USING ULTRASOUND GUIDANCE. Chest X-Ray 06/08/18 00:00 IMPRESSION: Cardiogenic pulmonary edema with bilateral pleural effusions. Assessment & Plan - Diagnosis (1) Acute and chronic respiratory failure with hypoxia Is this a current diagnosis for this admission?: Yes Plan: Secondary to CHF exacerbation. Continue BIPAP prn. (2) Acute on chronic systolic (congestive) heart failure Is this a current diagnosis for this admission?: Yes Plan: Combined systolic and diastolic biventricular failure. Continue Lasix 40 mg daily. Cardiology following. Echo shows an EF of 30-35%, grade 2 diastolic dysfunction and dilated left and right ventricular. Patient already has an AICD. Patient is not on UZMA inhibitor hence is not on optimal medical therapy. CHF medication regimen cannot be optimized as patient has had angioedema from captopril before. Both UZMA inhibitors and Entresto will be contraindicated to a history of ACEi-associated angioedema. Discussed with cardio and pulm. Recommendation for BIPAP at home/discharge for his biventricular heart failure and significant pulmonary hypertension. Continue Coreg. Aldactone discontinued as patient did have recurrence of hyperkalemia when it was resumed. 06/11/18: Creatinine trended up to 1.5. Decreased Lasix to 20 mg daily today. 06/13/18: Creatinine has improved down to 1.2. Will increase Lasix back to 40 mg daily as his Aldactone was also d/raghav due to hyperkalemia. 06/14/18: Continue current regimen. (3) Pleural effusion Is this a current diagnosis for this admission?: Yes Plan: S/P right sided thoracentesis (750 cc) on 05/13/18. Pleural fluid analysis is consistent with transudative effusion likely related to patient's CHF. Chest x- ray after thoracentesis did show improvement in aeration of the right lower lung salazar. (4) CAD (coronary artery disease) Is this a current diagnosis for this admission?: Yes Plan: Stable. Continue aspirin, statin and beta steve. (5) Hyperkalemia Is this a current diagnosis for this admission?: Yes Plan: Resolved after discontinuing Aldactone. (6) DEANNA (acute kidney injury) Is this a current diagnosis for this admission?: Yes Plan: Improving. Creatinine continue to trend down to 1.2. - Time Time Spent with patient: 15-24 minutes
--- NOTE | 2018-06-14 14:34 | PSYCHOLOGICAL NOTE ---
Psych Note - Psych Note Date seen by psych provider: 06/14/18 Time seen by psych provider: 08:00 - Chart review only. Psych Note: Reason for Consult: Capacity Consult ordered 06/13/18 at 1028. Received it today (06/14/18) at 0800. There have been previous Capacity consult orders. See below. 1) Psych Note from 05/15/18 which was a consult for Capacity. The following is copied and pasted from that note: Reason for Consult: capacity This is a 62-year-old male with a past medical history of CAD, prior CABG, COPD, chronic systolic heart failure from ischemic cardiomyopathy with prior AICD placement, chronic respiratory failure on home O2, history of CVA with residual partial expressive aphasia who initially presented with increasing shortness of breath and leg swelling. Patient was admitted for CHF exacerbation. Patient received evaluation for capacity on 05/14/2018. At this time he demonstrates capacity. Full report will be submitted. 2) Psych Note from 04/16/18 which was a consult for Capacity. The following is copied and pasted from that note: Reason for Consult: capacity ALEX KNIGHT is a 62 year old male who is a long-term [facility] resident with a past medical history of severe pulmonary hypertension, obstructive sleep apnea, congestive heart failure with an ejection fraction of 25%, CVA with expressive aphasia, COPD, anxiety and posttraumatic stress disorder. Medication recommendations per [facility]'s contracted psychiatrist Dr. Stevie CRAWFORD are as follows Please discontinue Xanax Start Depakote 250 mg twice daily Start BuSpar 10 mg twice daily Start risperidone 0.25 mg twice daily as needed Patient needs a hearing assessment conducted prior to conducting a capacity. Patient is noted to have conversational speech that loud with expressive aphasia. At this time it is unclear if his verbal and vision expression are effected. He has a history of multiple strokes and until it is determined if he has hearing or vision capacity and cognitive evaluation would not be a ppropriate.
[2018-06-14] MEDS: ROPINIROLE HCL 0.25 MG TABLET PO SCH (22:26)
[2018-06-15 08:40] LABS: ANION GAP 8 (5-19); BLOOD UREA NITROGEN 32 mg/dL (7-20); CARBON DIOXIDE 34 mmol/L (22-30); CHLORIDE 97 mmol/L (98-107); GLUCOSE 106 mg/dL (75-110); POTASSIUM 5.6 mmol/L (3.6-5.0); SODIUM 138.5 mmol/L (137-145)
[2018-06-15] MEDS: TRAMADOL HCL 50 MG TABLET PO PRN (08:52)
[2018-06-15] MEDS: DIGOXIN 0.125 MG TABLET PO SCH (09:18)
[2018-06-15] MEDS: DOCUSATE SODIUM 100 MG CAPSULE PO SCH ×2 (09:18→18:41)
[2018-06-15] MEDS: FUROSEMIDE 40 MG TABLET PO SCH (09:18)
[2018-06-15] MEDS: ASPIRIN 81 MG TABLET, CHEWABLE PO SCH (09:18)
[2018-06-15] MEDS: CARVEDILOL 3.125 MG TABLET PO SCH ×2 (09:18→21:33)
[2018-06-15] MEDS: GABAPENTIN 100 MG CAPSULE PO SCH ×4 (09:19→21:31)
[2018-06-15] MEDS: POLYVINYL ALCOHOL 1.4% OPH SOLN 15 ML OP SCH ×4 (09:19→21:34)
[2018-06-15] MEDS: ACETAMINOPHEN 325 MG TABLET PO SCH ×4 (09:19→21:33)
[2018-06-15] MEDS: OMEGA-3 ACID ETHYL ESTERS 1 GM CAPSULE PO SCH ×2 (09:19→18:31)
[2018-06-15] MEDS: CYCLOSPORINE 0.05% OPH EMULSIO 0.4 ML DROPERETTE OU SCH (09:24)
--- NOTE | 2018-06-15 13:59 | PDOC PROGRESS REPORT ---
Subjective Progress Note for:: 06/15/18 Subjective:: This is a 62-year-old male with a past medical history of CAD, prior CABG, COPD, diet-controlled DM, chronic systolic heart failure from ischemic cardiomyopathy with prior AICD placement, chronic respiratory failure on home O2, history of CVA with residual partial expressive aphasia who initially presented with increasing shortness of breath and leg swelling. Patient was admitted for CHF exacerbation. Patient has partial expressive aphasia (has some residual slurring and pauses) but is coherent and is able to converse with provider. He says his SOB is at baseline but he becomes short of breath when lying supine. He has been having persistent orthopnea. 05/13: Discussed in length again this morning with caregiver (Nuria) and patient. We discussed the need for thoracentesis again this morning including the indication due to his persistent orthopnea and significant bilateral pleural effusion. Also discussed the small risk of pneumothorax. Patient did agree undergo thoracentesis as he has been having patient orthopnea. Patient is oriented to person, place and situation. Also discussed with wedding planner on bedside about possible option to be transferred to a [facility] in [place] as patient is a his history of placement and disposition. He does not want to be transferred at this time and would prefer to stay here. 05/14: Patient does appear to have into capacity to make his own medical decisions. Patient was also evaluated by psych who deemed the same. Discussed in length again today about plan and disposition. Patient says he does not want to go to a retirement or rehab. He also does not want to talk about his CODE STATUS and says that he will "sort it out" later. Offered palliative care consult and he is receptive to it but not hospice. He says his breathing has improved after the thoracentesis. Solution Designer recommended BiPAP at home. Patient is resistant on using BiPAP at home but agrees to try it here while inpatient and see if he tolerates it. 05/15: Upon encounter this morning, patient was sleeping on the recliner. Patient says that his house is not fixed yet. He says he does not want to go to any of the surrounding SNF/rehab facilities at this time but is agreeable to being transferred to the [facility] in [place]. Convinced on trying the BiPAP and he says he will try wearing it. 05/16: No acute event overnight. Patient has complied with BIPAP. He says his breathing has slightly improved but still has orthopnea. Denies chest pain or dizziness. 05/17: Patient says his breathing has improved and he feels better today. He says he can use the BIPAP for 2 hrs but is willing to try to extend it to 3-4 hrs today. 05/18: Patient only used BIPAP for 1.5 hrs last night. Upon encounter, he does say that he breathes and feels better when on BIPAP. He was advised on increas ing his BIPAP use again today. He denies worsening SOB or chest pain. Still awaiting for update on transfer to [facility] in [facility]. Patient has remained stable with no acute issues in the interim and has just been waiting for placement. 05/26/18: He has been more complaint with BIPAP. He denies acute SOB and feels like he is at his baseline. 05/27/18: No acute event overnight. He did complaint of transient chest tightness this morning after he ate a big breakfast (ham and omelet). He says it only lasted for a few seconds. EKG was negative for acute changes. 05/28/18: No acute event. No acute symptoms, no chest pain or SOB. He is at his baseline. 05/29/18: No acute event. Patient denies any acute complaint. Updated by RN and wedding planner that patient's house will be condemned due to multiple issues. 05/30/18: No acute issues. Patient is still awaiting placement. 05/31/18:Patient is still awaiting placement. Discussed with Eryn on bedside, patient's recreation activities coordinator who says she is getting her new house soon and may be able to have patient live with her. 06/09/18: Reassumed care today. No acute issues in the interim. Patient still here due to placement issues. Apparently, his recreation activities coordinator's house was not ready yet. He is at his baseline and denies chest pain or SOB at the moment. 06/13/18: No acute issues. Denies chest pain or SOB. Discussed on bedside with Eryn (recreation activities coordinator) today who says they are still doing repairs for a leakage at her house. 06/15/18: No acute issues. Denies acute complaints today. Still awaiting placement. Reason For Visit: CHF Physical Exam Vital Signs: Temp Pulse Resp BP Pulse Ox 97.3 F 95 20 105/64 98 06/15/18 11:23 06/15/18 11:23 06/15/18 11:23 06/15/18 11:23 06/15/18 11:23 Intake & Output 06/14/18 06/15/18 06/16/18 06:59 06:59 06:59 Intake Total 1152 1675 798 Output Total 1255 1650 450 Balance -103 25 348 Weight 190 lb 14.725 oz 190 lb 14.725 oz General appearance: PRESENT: no acute distress, obese Head exam: PRESENT: atraumatic, normocephalic Eye exam: PRESENT: conjunctiva pink, EOMI, PERRLA. ABSENT: scleral icterus Ear exam: PRESENT: normal external ear exam Neck exam: ABSENT: carotid bruit, JVD, lymphadenopathy, thyromegaly Respiratory exam: PRESENT: decreased breath sounds - slightly dec BS on the bases, unchanged, rhonchi. ABSENT: rales, wheezes Cardiovascular exam: PRESENT: RRR, systolic murmur Pulses: PRESENT: normal dorsalis pedis pul GI/Abdominal exam: PRESENT: normal bowel sounds, soft. ABSENT: distended, guarding, mass, organolmegaly, rebound, tenderness Extremities exam: PRESENT: +1 edema Neurological exam: PRESENT: alert, awake, oriented to person, oriented to place, oriented to time, oriented to situation Results Laboratory Results: 06/03/18 08:12 06/15/18 08:08 06/15/18 08:08 Sodium 138.5 Potassium 5.6 H Chloride 97 L Carbon Dioxide 34 H Anion Gap 8 BUN 32 H Creatinine 1.41 H Est GFR ( Amer) > 60 Est GFR (Non-Af Amer) 51 L Glucose 106 Calcium 9.0 05/11/18 05/11/18 05/11/18 09:35 09:35 09:35 Creatine Kinase 37 L CK-MB (CK-2) Troponin I 0.071 NT-Pro-B Natriuret Pep 6800 H 05/11/18 05/11/18 05/12/18 12:30 19:00 01:06 Creatine Kinase CK-MB (CK-2) Troponin I 0.067 0.064 0.050 NT-Pro-B Natriuret Pep 05/23/18 05/24/18 05/27/18 10:36 09:38 10:01 Creatine Kinase CK-MB (CK-2) Troponin I 0.060 NT-Pro-B Natriuret Pep 819 889 06/03/18 06/08/18 06/08/18 08:12 13:40 13:40 Creatine Kinase 39 L CK-MB (CK-2) 1.92 Troponin I 0.060 NT-Pro-B Natriuret Pep 1420 H 06/08/18 06/08/18 06/09/18 19:03 19:03 00:59 Creatine Kinase 36 L 34 L CK-MB (CK-2) 1.75 Troponin I 0.058 NT-Pro-B Natriuret Pep 06/09/18 06/09/18 06/09/18 00:59 08:04 08:04 Creatine Kinase 32 L CK-MB (CK-2) 1.58 1.79 Troponin I 0.063 0.064 NT-Pro-B Natriuret Pep 06/09/18 06/09/18 06/09/18 12:52 12:52 19:00 Creatine Kinase 46 L 31 L CK-MB (CK-2) 1.99 Troponin I 0.051 NT-Pro-B Natriuret Pep 06/09/18 19:00 Creatine Kinase CK-MB (CK-2) 1.80 Troponin I 0.072 NT-Pro-B Natriuret Pep Impressions: Thoracentesis Ultrasound 05/13/18 10:06 IMPRESSION: SUCCESSFUL THORACENTESIS USING ULTRASOUND GUIDANCE. Chest X-Ray 06/08/18 00:00 IMPRESSION: Cardiogenic pulmonary edema with bilateral pleural effusions. Assessment & Plan - Diagnosis (1) Acute and chronic respiratory failure with hypoxia Is this a current diagnosis for this admission?: Yes Plan: Secondary to CHF exacerbation. Continue BIPAP at night. (2) Acute on chronic systolic (congestive) heart failure Is this a current diagnosis for this admission?: Yes Plan: Combined systolic and diastolic biventricular failure. Continue Lasix 40 mg daily. Cardiology following. Echo shows an EF of 30-35%, grade 2 diastolic dysfunction and dilated left and right ventricular. Patient already has an AICD. Patient is not on UZMA inhibitor hence is not on optimal medical therapy. CHF medication regimen cannot be optimized as patient has had angioedema from captopril before. Both UZMA inhibitors and Entresto will be contraindicated to a history of ACEi-associated angioedema. Discussed with cardio and pulm. R ecommendation for BIPAP at home/discharge for his biventricular heart failure and significant pulmonary hypertension. Continue Coreg. Aldactone discontinued as patient did have recurrence of hyperkalemia when it was resumed. 06/11/18: Creatinine trended up to 1.5. Decreased Lasix to 20 mg daily today. 06/13/18: Creatinine has improved down to 1.2. Will increase Lasix back to 40 mg daily as his Aldactone was also d/raghav due to hyperkalemia. 06/15/18: Creatinine trended up to 1.4 again after increasing Lasix back to 40 mg daily. Reduce down to home dose of 20 mg daily. (3) Pleural effusion Is this a current diagnosis for this admission?: Yes Plan: S/P right sided thoracentesis (750 cc) on 05/13/18. Pleural fluid analysis is consistent with transudative effusion likely related to patient's CHF. Chest x- ray after thoracentesis did show improvement in aeration of the right lower lung salazar. (4) CAD (coronary artery disease) Is this a current diagnosis for this admission?: Yes Plan: Stable. Continue aspirin, statin and beta steve. (5) Hyperkalemia Is this a current diagnosis for this admission?: Yes Plan: Resolved after discontinuing Aldactone. Potassium today trended up to 5.6. Will recheck another BMP tomorrow. Aldactone will be indefinitely disconitnued as he has consistently developed recurrence of hyperkalemia with Aldactone. (6) DEANNA (acute kidney injury) Is this a current diagnosis for this admission?: Yes Plan: Improved but creatinine trended up again after increasing Lasix to 40 mg daily. Reduce back down to 20 mg Lasix daily. Repeat BMP tomorrow. - Time Time Spent with patient: 25-34 minutes
[2018-06-15] MEDS: INSULIN LISPRO 100 UNIT/ML 3 ML VIAL SUBCUT PRN (15:38)
[2018-06-15] MEDS: ROPINIROLE HCL 0.25 MG TABLET PO SCH (21:33)
[2018-06-16] MEDS: POLYVINYL ALCOHOL 1.4% OPH SOLN 15 ML OP SCH ×4 (09:13→21:42)
[2018-06-16] MEDS: DOCUSATE SODIUM 100 MG CAPSULE PO SCH ×2 (10:15→17:38)
[2018-06-16] MEDS: ASPIRIN 81 MG TABLET, CHEWABLE PO SCH (10:15)
[2018-06-16] MEDS: OMEGA-3 ACID ETHYL ESTERS 1 GM CAPSULE PO SCH ×2 (10:15→17:39)
[2018-06-16] MEDS: FUROSEMIDE 20 MG TABLET PO SCH (10:16)
[2018-06-16] MEDS: ACETAMINOPHEN 325 MG TABLET PO SCH ×4 (10:16→21:41)
[2018-06-16] MEDS: CARVEDILOL 3.125 MG TABLET PO SCH ×2 (10:16→21:42)
[2018-06-16] MEDS: DIGOXIN 0.125 MG TABLET PO SCH (10:16)
[2018-06-16] MEDS: GABAPENTIN 100 MG CAPSULE PO SCH ×4 (10:16→21:41)
[2018-06-16] MEDS: CYCLOSPORINE 0.05% OPH EMULSIO 0.4 ML DROPERETTE OU SCH (10:17)
[2018-06-16] MEDS: TRAMADOL HCL 50 MG TABLET PO PRN ×2 (11:29→21:40)
[2018-06-16] MEDS: INSULIN LISPRO 100 UNIT/ML 3 ML VIAL SUBCUT PRN (11:30)
[2018-06-16 12:30] LABS: ANION GAP 6 (5-19); BLOOD UREA NITROGEN 31 mg/dL (7-20); CALCIUM 9.1 mg/dL (8.4-10.2); CARBON DIOXIDE 37 mmol/L (22-30); CHLORIDE 97 mmol/L (98-107); GLUCOSE 152 mg/dL (75-110); POTASSIUM 5.1 mmol/L (3.6-5.0); SODIUM 139.8 mmol/L (137-145)
--- NOTE | 2018-06-16 16:58 | PDOC PROGRESS REPORT ---
Subjective Progress Note for:: 06/16/18 Subjective:: No adverse events overnight. No new complaints. Vital signs been stable. He sitting in his chair watching a sports show. Is been eating and drinking without difficulty. Reason For Visit: CHF Physical Exam Vital Signs: Temp Pulse Resp BP Pulse Ox 98.6 F 91 16 101/65 97 06/16/18 15:34 06/16/18 15:34 06/16/18 15:34 06/16/18 15:34 06/16/18 11:30 Intake & Output 06/15/18 06/16/18 06/17/18 06:59 06:59 06:59 Intake Total 1675 1658 466 Output Total 1650 1250 400 Balance 25 408 66 Weight 86.6 kg 86.6 kg General appearance: PRESENT: no acute distress, cooperative, obese Respiratory exam: PRESENT: clear to auscultation rahul, symmetrical, unlabored. ABSENT: accessory muscle use, prolonged expiratory phas, rales, rhonchi, tachypnea, wheezes Cardiovascular exam: PRESENT: RRR, +S1, +S2, systolic murmur Vascular exam: PRESENT: normal capillary refill GI/Abdominal exam: PRESENT: normal bowel sounds, soft. ABSENT: distended, guarding, rebound, tenderness Extremities exam: PRESENT: pedal edema - Trace. ABSENT: clubbing Musculoskeletal exam: PRESENT: normal inspection. ABSENT: deformity Neurological exam: PRESENT: alert, awake, oriented to person, oriented to place, oriented to situation Psychiatric exam: PRESENT: appropriate affect, normal mood Skin exam: PRESENT: dry, warm Results Laboratory Results: 06/03/18 08:12 06/16/18 11:33 06/16/18 11:33 Sodium 139.8 Potassium 5.1 H Chloride 97 L Carbon Dioxide 37 H Anion Gap 6 BUN 31 H Creatinine 1.40 H Est GFR ( Amer) > 60 Est GFR (Non-Af Amer) 51 L Glucose 152 H Calcium 9.1 05/11/18 05/11/18 05/11/18 09:35 09:35 09:35 Creatine Kinase 37 L CK-MB (CK-2) Troponin I 0.071 NT-Pro-B Natriuret Pep 6800 H 05/11/18 05/11/18 05/12/18 12:30 19:00 01:06 Creatine Kinase CK-MB (CK-2) Troponin I 0.067 0.064 0.050 NT-Pro-B Natriuret Pep 05/23/18 05/24/18 05/27/18 10:36 09:38 10:01 Creatine Kinase CK-MB (CK-2) Troponin I 0.060 NT-Pro-B Natriuret Pep 819 889 06/03/18 06/08/18 06/08/18 08:12 13:40 13:40 Creatine Kinase 39 L CK-MB (CK-2) 1.92 Troponin I 0.060 NT-Pro-B Natriuret Pep 1420 H 06/08/18 06/08/18 06/09/18 19:03 19:03 00:59 Creatine Kinase 36 L 34 L CK-MB (CK-2) 1.75 Troponin I 0.058 NT-Pro-B Natriuret Pep 06/09/18 06/09/18 06/09/18 00:59 08:04 08:04 Creatine Kinase 32 L CK-MB (CK-2) 1.58 1.79 Troponin I 0.063 0.064 NT-Pro-B Natriuret Pep 06/09/18 06/09/18 06/09/18 12:52 12:52 19:00 Creatine Kinase 46 L 31 L CK-MB (CK-2) 1.99 Troponin I 0.051 NT-Pro-B Natriuret Pep 06/09/18 19:00 Creatine Kinase CK-MB (CK-2) 1.80 Troponin I 0.072 NT-Pro-B Natriuret Pep Impressions: Thoracentesis Ultrasound 05/13/18 10:06 IMPRESSION: SUCCESSFUL THORACENTESIS USING ULTRASOUND GUIDANCE. Chest X-Ray 06/08/18 00:00 IMPRESSION: Cardiogenic pulmonary edema with bilateral pleural effusions. Assessment & Plan - Diagnosis (1) DEANNA (acute kidney injury) Is this a current diagnosis for this admission?: Yes Plan: Acute on chronic. Resolved. Back to his baseline. (2) Hyperkalemia Is this a current diagnosis for this admission?: Yes Plan: Resolved (3) Acute on chronic systolic heart failure, NYHA class 4 Is this a current diagnosis for this admission?: Yes Plan: Resolved. Currently euvolemic. Awaiting placement. Continue current medications. - Time Time Spent with patient: 15-24 minutes
[2018-06-16] MEDS: ROPINIROLE HCL 0.25 MG TABLET PO SCH (21:42)
[2018-06-17] MEDS: ACETAMINOPHEN 325 MG TABLET PO SCH ×4 (09:23→22:15)
[2018-06-17] MEDS: DOCUSATE SODIUM 100 MG CAPSULE PO SCH ×2 (09:25→17:30)
[2018-06-17] MEDS: ASPIRIN 81 MG TABLET, CHEWABLE PO SCH (09:26)
[2018-06-17] MEDS: FUROSEMIDE 20 MG TABLET PO SCH (09:26)
[2018-06-17] MEDS: OMEGA-3 ACID ETHYL ESTERS 1 GM CAPSULE PO SCH ×2 (09:27→17:29)
[2018-06-17] MEDS: GABAPENTIN 100 MG CAPSULE PO SCH ×4 (09:28→22:16)
[2018-06-17] MEDS: CARVEDILOL 3.125 MG TABLET PO SCH ×2 (09:29→22:16)
[2018-06-17] MEDS: DIGOXIN 0.125 MG TABLET PO SCH (09:30)
[2018-06-17] MEDS: CYCLOSPORINE 0.05% OPH EMULSIO 0.4 ML DROPERETTE OU SCH (09:50)
[2018-06-17] MEDS: POLYVINYL ALCOHOL 1.4% OPH SOLN 15 ML OP SCH ×4 (10:43→22:16)
[2018-06-17] MEDS: TRAMADOL HCL 50 MG TABLET PO PRN ×2 (10:48→18:19)
--- NOTE | 2018-06-17 16:13 | PDOC PROGRESS REPORT ---
Subjective Progress Note for:: 06/17/18 Subjective:: No adverse events overnight. No new complaints. Vital signs been stable. He sitting in his chair watching television. Has been eating and drinking without difficulty. Reason For Visit: CHF Physical Exam Vital Signs: Temp Pulse Resp BP Pulse Ox 98.1 F 93 16 114/67 100 06/17/18 11:02 06/17/18 11:02 06/17/18 11:02 06/17/18 11:02 06/17/18 11:02 Intake & Output 06/16/18 06/17/18 06/18/18 06:59 06:59 06:59 Intake Total 1658 940 Output Total 1250 800 Balance 408 140 Weight 86.6 kg 86.6 kg General appearance: PRESENT: no acute distress, cooperative, obese Respiratory exam: PRESENT: clear to auscultation rahul, symmetrical, unlabored. ABSENT: accessory muscle use, prolonged expiratory phas, rales, rhonchi, tachypnea, wheezes Cardiovascular exam: PRESENT: RRR, +S1, +S2, systolic murmur Vascular exam: PRESENT: normal capillary refill GI/Abdominal exam: PRESENT: normal bowel sounds, soft. ABSENT: distended, guarding, rebound, tenderness Extremities exam: PRESENT: pedal edema - Trace. ABSENT: clubbing Musculoskeletal exam: PRESENT: normal inspection. ABSENT: deformity Neurological exam: PRESENT: alert, awake, oriented to person, oriented to place, oriented to situation Psychiatric exam: PRESENT: appropriate affect, normal mood Skin exam: PRESENT: dry, warm Results Laboratory Results: 06/03/18 08:12 06/16/18 11:33 05/11/18 05/11/18 05/11/18 09:35 09:35 09:35 Creatine Kinase 37 L CK-MB (CK-2) Troponin I 0.071 NT-Pro-B Natriuret Pep 6800 H 05/11/18 05/11/18 05/12/18 12:30 19:00 01:06 Creatine Kinase CK-MB (CK-2) Troponin I 0.067 0.064 0.050 NT-Pro-B Natriuret Pep 05/23/18 05/24/18 05/27/18 10:36 09:38 10:01 Creatine Kinase CK-MB (CK-2) Troponin I 0.060 NT-Pro-B Natriuret Pep 819 889 06/03/18 06/08/18 06/08/18 08:12 13:40 13:40 Creatine Kinase 39 L CK-MB (CK-2) 1.92 Troponin I 0.060 NT-Pro-B Natriuret Pep 1420 H 06/08/18 06/08/18 06/09/18 19:03 19:03 00:59 Creatine Kinase 36 L 34 L CK-MB (CK-2) 1.75 Troponin I 0.058 NT-Pro-B Natriuret Pep 06/09/18 06/09/18 06/09/18 00:59 08:04 08:04 Creatine Kinase 32 L CK-MB (CK-2) 1.58 1.79 Troponin I 0.063 0.064 NT-Pro-B Natriuret Pep 06/09/18 06/09/18 06/09/18 12:52 12:52 19:00 Creatine Kinase 46 L 31 L CK-MB (CK-2) 1.99 Troponin I 0.051 NT-Pro-B Natriuret Pep 06/09/18 19:00 Creatine Kinase CK-MB (CK-2) 1.80 Troponin I 0.072 NT-Pro-B Natriuret Pep Impressions: Thoracentesis Ultrasound 05/13/18 10:06 IMPRESSION: SUCCESSFUL THORACENTESIS USING ULTRASOUND GUIDANCE. Chest X-Ray 06/08/18 00:00 IMPRESSION: Cardiogenic pulmonary edema with bilateral pleural effusions. Assessment & Plan - Diagnosis (1) DEANNA (acute kidney injury) Is this a current diagnosis for this admission?: Yes Plan: Acute on chronic. Resolved. Back to his baseline. (2) Hyperkalemia Is this a current diagnosis for this admission?: Yes Plan: Resolved (3) Acute on chronic systolic heart failure, NYHA class 4 Is this a current diagnosis for this admission?: Yes Plan: Resolved. Currently euvolemic. Awaiting placement. Continue current medications. - Time Time Spent with patient: 15-24 minutes
[2018-06-17] MEDS: ROPINIROLE HCL 0.25 MG TABLET PO SCH (22:16)
[2018-06-18] MEDS: POLYVINYL ALCOHOL 1.4% OPH SOLN 15 ML OP SCH (09:14)
[2018-06-18] MEDS: GABAPENTIN 100 MG CAPSULE PO SCH ×4 (09:22→21:03)
[2018-06-18] MEDS: DIGOXIN 0.125 MG TABLET PO SCH (09:22)
[2018-06-18] MEDS: ACETAMINOPHEN 325 MG TABLET PO SCH ×4 (09:22→21:04)
[2018-06-18] MEDS: OMEGA-3 ACID ETHYL ESTERS 1 GM CAPSULE PO SCH ×2 (09:22→18:36)
[2018-06-18] MEDS: ASPIRIN 81 MG TABLET, CHEWABLE PO SCH (09:22)
[2018-06-18] MEDS: CARVEDILOL 3.125 MG TABLET PO SCH ×2 (09:23→21:07)
[2018-06-18] MEDS: CYCLOSPORINE 0.05% OPH EMULSIO 0.4 ML DROPERETTE OU SCH (09:23)
[2018-06-18] MEDS: FUROSEMIDE 20 MG TABLET PO SCH (09:23)
[2018-06-18] MEDS: DOCUSATE SODIUM 100 MG CAPSULE PO SCH ×2 (09:23→18:36)
[2018-06-18] MEDS: TRAMADOL HCL 50 MG TABLET PO PRN ×2 (13:41→20:14)
--- NOTE | 2018-06-18 18:27 | PDOC PROGRESS REPORT ---
Subjective Progress Note for:: 06/18/18 Subjective:: No adverse events overnight. No new complaints. Vital signs been stable. He got a little worked up earlier when they were testing the fire alarm system but we were able to get him settled down without much trouble. Reason For Visit: CHF Physical Exam Vital Signs: Temp Pulse Resp BP Pulse Ox 98.5 F 88 20 109/71 99 06/18/18 16:27 06/18/18 16:27 06/18/18 16:27 06/18/18 16:27 06/18/18 16:27 Intake & Output 06/17/18 06/18/18 06/19/18 06:59 06:59 06:59 Intake Total 940 1049 476 Output Total 800 700 400 Balance 140 349 76 Weight 86.6 kg 86.6 kg General appearance: PRESENT: no acute distress, cooperative, obese Respiratory exam: PRESENT: clear to auscultation rahul, symmetrical, unlabored. ABSENT: accessory muscle use, prolonged expiratory phas, rales, rhonchi, tachypnea, wheezes Cardiovascular exam: PRESENT: RRR, +S1, +S2, systolic murmur Vascular exam: PRESENT: normal capillary refill GI/Abdominal exam: PRESENT: normal bowel sounds, soft. ABSENT: distended, guarding, rebound, tenderness Extremities exam: PRESENT: pedal edema - Trace. ABSENT: clubbing Musculoskeletal exam: PRESENT: normal inspection. ABSENT: deformity Neurological exam: PRESENT: alert, awake, oriented to person, oriented to place, oriented to situation Psychiatric exam: PRESENT: appropriate affect, normal mood Skin exam: PRESENT: dry, warm Results Laboratory Results: 06/03/18 08:12 06/16/18 11:33 05/11/18 05/11/18 05/11/18 09:35 09:35 09:35 Creatine Kinase 37 L CK-MB (CK-2) Troponin I 0.071 NT-Pro-B Natriuret Pep 6800 H 05/11/18 05/11/18 05/12/18 12:30 19:00 01:06 Creatine Kinase CK-MB (CK-2) Troponin I 0.067 0.064 0.050 NT-Pro-B Natriuret Pep 05/23/18 05/24/18 05/27/18 10:36 09:38 10:01 Creatine Kinase CK-MB (CK-2) Troponin I 0.060 NT-Pro-B Natriuret Pep 819 889 06/03/18 06/08/18 06/08/18 08:12 13:40 13:40 Creatine Kinase 39 L CK-MB (CK-2) 1.92 Troponin I 0.060 NT-Pro-B Natriuret Pep 1420 H 06/08/18 06/08/18 06/09/18 19:03 19:03 00:59 Creatine Kinase 36 L 34 L CK-MB (CK-2) 1.75 Troponin I 0.058 NT-Pro-B Natriuret Pep 06/09/18 06/09/18 06/09/18 00:59 08:04 08:04 Creatine Kinase 32 L CK-MB (CK-2) 1.58 1.79 Troponin I 0.063 0.064 NT-Pro-B Natriuret Pep 06/09/18 06/09/18 06/09/18 12:52 12:52 19:00 Creatine Kinase 46 L 31 L CK-MB (CK-2) 1.99 Troponin I 0.051 NT-Pro-B Natriuret Pep 06/09/18 19:00 Creatine Kinase CK-MB (CK-2) 1.80 Troponin I 0.072 NT-Pro-B Natriuret Pep Impressions: Thoracentesis Ultrasound 05/13/18 10:06 IMPRESSION: SUCCESSFUL THORACENTESIS USING ULTRASOUND GUIDANCE. Chest X-Ray 06/08/18 00:00 IMPRESSION: Cardiogenic pulmonary edema with bilateral pleural effusions. Assessment & Plan - Diagnosis (1) DEANNA (acute kidney injury) Is this a current diagnosis for this admission?: Yes Plan: Acute on chronic. Resolved. Back to his baseline. (2) Hyperkalemia Is this a current diagnosis for this admission?: Yes Plan: Resolved (3) Acute on chronic systolic heart failure, NYHA class 4 Is this a current diagnosis for this admission?: Yes Plan: Resolved. Currently euvolemic. Awaiting placement, which is apparently a bit of a complicated situation. Continue current medications. - Time Time Spent with patient: 15-24 minutes
[2018-06-18] MEDS: ROPINIROLE HCL 0.25 MG TABLET PO SCH (21:03)
[2018-06-19] MEDS: TRAMADOL HCL 50 MG TABLET PO PRN ×3 (03:50→19:54)
[2018-06-19] MEDS: ACETAMINOPHEN 325 MG TABLET PO SCH ×4 (09:26→21:11)
[2018-06-19] MEDS: CARVEDILOL 3.125 MG TABLET PO SCH ×2 (09:26→21:11)
[2018-06-19] MEDS: ASPIRIN 81 MG TABLET, CHEWABLE PO SCH (09:26)
[2018-06-19] MEDS: GABAPENTIN 100 MG CAPSULE PO SCH ×4 (09:26→21:11)
[2018-06-19] MEDS: OMEGA-3 ACID ETHYL ESTERS 1 GM CAPSULE PO SCH (09:26)
[2018-06-19] MEDS: DIGOXIN 0.125 MG TABLET PO SCH (09:27)
[2018-06-19] MEDS: DOCUSATE SODIUM 100 MG CAPSULE PO SCH ×2 (09:28→18:49)
[2018-06-19] MEDS: FUROSEMIDE 20 MG TABLET PO SCH (09:28)
[2018-06-19] MEDS: CYCLOSPORINE 0.05% OPH EMULSIO 0.4 ML DROPERETTE OU SCH (09:29)
--- NOTE | 2018-06-19 17:06 | PDOC PROGRESS REPORT ---
Subjective Progress Note for:: 06/19/18 Subjective:: No adverse events overnight. No new complaints. Vital signs been stable. He has had a pretty uneventful day today. Reason For Visit: CHF Physical Exam Vital Signs: Temp Pulse Resp BP Pulse Ox 97.4 F 92 16 108/65 96 06/19/18 16:00 06/19/18 16:00 06/19/18 16:00 06/19/18 16:00 06/19/18 16:00 Intake & Output 06/18/18 06/19/18 06/20/18 06:59 06:59 06:59 Intake Total 1049 836 Output Total 700 1280 Balance 349 -444 Weight 86.6 kg General appearance: PRESENT: no acute distress, cooperative, obese Respiratory exam: PRESENT: clear to auscultation rahul, symmetrical, unlabored. ABSENT: accessory muscle use, prolonged expiratory phas, rales, rhonchi, tachypnea, wheezes Cardiovascular exam: PRESENT: RRR, +S1, +S2, systolic murmur Vascular exam: PRESENT: normal capillary refill GI/Abdominal exam: PRESENT: normal bowel sounds, soft. ABSENT: distended, guarding, rebound, tenderness Extremities exam: PRESENT: pedal edema - Trace. ABSENT: clubbing Musculoskeletal exam: PRESENT: normal inspection. ABSENT: deformity Neurological exam: PRESENT: alert, awake, oriented to person, oriented to place, oriented to situation Psychiatric exam: PRESENT: appropriate affect, normal mood Skin exam: PRESENT: dry, warm Results Laboratory Results: 06/03/18 08:12 06/16/18 11:33 05/11/18 05/11/18 05/11/18 09:35 09:35 09:35 Creatine Kinase 37 L CK-MB (CK-2) Troponin I 0.071 NT-Pro-B Natriuret Pep 6800 H 05/11/18 05/11/18 05/12/18 12:30 19:00 01:06 Creatine Kinase CK-MB (CK-2) Troponin I 0.067 0.064 0.050 NT-Pro-B Natriuret Pep 05/23/18 05/24/18 05/27/18 10:36 09:38 10:01 Creatine Kinase CK-MB (CK-2) Troponin I 0.060 NT-Pro-B Natriuret Pep 819 889 06/03/18 06/08/18 06/08/18 08:12 13:40 13:40 Creatine Kinase 39 L CK-MB (CK-2) 1.92 Troponin I 0.060 NT-Pro-B Natriuret Pep 1420 H 06/08/18 06/08/18 06/09/18 19:03 19:03 00:59 Creatine Kinase 36 L 34 L CK-MB (CK-2) 1.75 Troponin I 0.058 NT-Pro-B Natriuret Pep 06/09/18 06/09/18 06/09/18 00:59 08:04 08:04 Creatine Kinase 32 L CK-MB (CK-2) 1.58 1.79 Troponin I 0.063 0.064 NT-Pro-B Natriuret Pep 06/09/18 06/09/18 06/09/18 12:52 12:52 19:00 Creatine Kinase 46 L 31 L CK-MB (CK-2) 1.99 Troponin I 0.051 NT-Pro-B Natriuret Pep 06/09/18 19:00 Creatine Kinase CK-MB (CK-2) 1.80 Troponin I 0.072 NT-Pro-B Natriuret Pep Impressions: Thoracentesis Ultrasound 05/13/18 10:06 IMPRESSION: SUCCESSFUL THORACENTESIS USING ULTRASOUND GUIDANCE. Chest X-Ray 06/08/18 00:00 IMPRESSION: Cardiogenic pulmonary edema with bilateral pleural effusions. Assessment & Plan - Diagnosis (1) DEANNA (acute kidney injury) Is this a current diagnosis for this admission?: Yes Plan: Acute on chronic. Resolved. Back to his baseline. (2) Hyperkalemia Is this a current diagnosis for this admission?: Yes Plan: Resolved (3) Acute on chronic systolic heart failure, NYHA class 4 Is this a current diagnosis for this admission?: Yes Plan: Resolved. Currently euvolemic. Awaiting placement, which is apparently a bit of a complicated situation. Continue current medications. - Time Time Spent with patient: 15-24 minutes
[2018-06-19] MEDS: ROPINIROLE HCL 0.25 MG TABLET PO SCH (21:11)
[2018-06-20] MEDS: DIPHENHYDRAMINE HCL 25 MG CAPSULE PO PRN (00:10)
[2018-06-20] MEDS: TRAMADOL HCL 50 MG TABLET PO PRN ×3 (02:59→18:34)
[2018-06-20] MEDS: CARVEDILOL 3.125 MG TABLET PO SCH ×2 (10:00→21:31)
[2018-06-20] MEDS: ACETAMINOPHEN 325 MG TABLET PO SCH ×4 (11:04→21:30)
[2018-06-20] MEDS: GABAPENTIN 100 MG CAPSULE PO SCH ×4 (11:05→21:30)
[2018-06-20] MEDS: DOCUSATE SODIUM 100 MG CAPSULE PO SCH ×2 (11:05→18:29)
[2018-06-20] MEDS: FUROSEMIDE 20 MG TABLET PO SCH (11:05)
[2018-06-20] MEDS: ASPIRIN 81 MG TABLET, CHEWABLE PO SCH (11:05)
[2018-06-20] MEDS: DIGOXIN 0.125 MG TABLET PO SCH (11:05)
[2018-06-20] MEDS: CYCLOSPORINE 0.05% OPH EMULSIO 0.4 ML DROPERETTE OU SCH (11:07)
[2018-06-20] MEDS: INSULIN LISPRO 100 UNIT/ML 3 ML VIAL SUBCUT PRN (11:57)
--- NOTE | 2018-06-20 17:05 | PDOC PROGRESS REPORT ---
Subjective Progress Note for:: 06/20/18 Subjective:: No adverse events overnight. No new complaints. Vital signs been stable. He is been sitting in his chair for a large portion of the day watching television. Reason For Visit: CHF Physical Exam Vital Signs: Temp Pulse Resp BP Pulse Ox 98.2 F 96 22 H 112/69 100 06/20/18 15:53 06/20/18 15:53 06/20/18 15:53 06/20/18 15:53 06/20/18 15:53 Intake & Output 06/19/18 06/20/18 06/21/18 06:59 06:59 06:59 Intake Total 836 1684 Output Total 1280 1000 Balance -444 684 General appearance: PRESENT: no acute distress, cooperative, obese Respiratory exam: PRESENT: clear to auscultation rahul, symmetrical, unlabored. ABSENT: accessory muscle use, prolonged expiratory phas, rales, rhonchi, t achypnea, wheezes Cardiovascular exam: PRESENT: RRR, +S1, +S2, systolic murmur Vascular exam: PRESENT: normal capillary refill GI/Abdominal exam: PRESENT: normal bowel sounds, soft. ABSENT: distended, guarding, rebound, tenderness Extremities exam: PRESENT: pedal edema - Trace. ABSENT: clubbing Musculoskeletal exam: PRESENT: normal inspection. ABSENT: deformity Neurological exam: PRESENT: alert, awake, oriented to person, oriented to place, oriented to situation Psychiatric exam: PRESENT: appropriate affect, normal mood Skin exam: PRESENT: dry, warm Results Laboratory Results: 06/03/18 08:12 06/16/18 11:33 05/11/18 05/11/18 05/11/18 09:35 09:35 09:35 Creatine Kinase 37 L CK-MB (CK-2) Troponin I 0.071 NT-Pro-B Natriuret Pep 6800 H 05/11/18 05/11/18 05/12/18 12:30 19:00 01:06 Creatine Kinase CK-MB (CK-2) Troponin I 0.067 0.064 0.050 NT-Pro-B Natriuret Pep 05/23/18 05/24/18 05/27/18 10:36 09:38 10:01 Creatine Kinase CK-MB (CK-2) Troponin I 0.060 NT-Pro-B Natriuret Pep 819 889 06/03/18 06/08/18 06/08/18 08:12 13:40 13:40 Creatine Kinase 39 L CK-MB (CK-2) 1.92 Troponin I 0.060 NT-Pro-B Natriuret Pep 1420 H 06/08/18 06/08/18 06/09/18 19:03 19:03 00:59 Creatine Kinase 36 L 34 L CK-MB (CK-2) 1.75 Troponin I 0.058 NT-Pro-B Natriuret Pep 06/09/18 06/09/18 06/09/18 00:59 08:04 08:04 Creatine Kinase 32 L CK-MB (CK-2) 1.58 1.79 Troponin I 0.063 0.064 NT-Pro-B Natriuret Pep 06/09/18 06/09/18 06/09/18 12:52 12:52 19:00 Creatine Kinase 46 L 31 L CK-MB (CK-2) 1.99 Troponin I 0.051 NT-Pro-B Natriuret Pep 06/09/18 19:00 Creatine Kinase CK-MB (CK-2) 1.80 Troponin I 0.072 NT-Pro-B Natriuret Pep Impressions: Thoracentesis Ultrasound 05/13/18 10:06 IMPRESSION: SUCCESSFUL THORACENTESIS USING ULTRASOUND GUIDANCE. Chest X-Ray 06/08/18 00:00 IMPRESSION: Cardiogenic pulmonary edema with bilateral pleural effusions. Assessment & Plan - Diagnosis (1) DEANNA (acute kidney injury) Is this a current diagnosis for this admission?: Yes Plan: Acute on chronic. Resolved. Back to his baseline. (2) Hyperkalemia Is this a current diagnosis for this admission?: Yes Plan: Resolved (3) Acute on chronic systolic heart failure, NYHA class 4 Is this a current diagnosis for this admission?: Yes Plan: Resolved. Currently euvolemic. Awaiting placement, which is apparently a bit of a complicated situation. Continue current medications. - Time Time Spent with patient: 15-24 minutes
[2018-06-20] MEDS: ROPINIROLE HCL 0.25 MG TABLET PO SCH (21:30)
[2018-06-21] MEDS: TRAMADOL HCL 50 MG TABLET PO PRN ×2 (10:09→19:41)
[2018-06-21] MEDS: GABAPENTIN 100 MG CAPSULE PO SCH ×4 (10:18→21:00)
[2018-06-21] MEDS: DIGOXIN 0.125 MG TABLET PO SCH (10:18)
[2018-06-21] MEDS: FUROSEMIDE 20 MG TABLET PO SCH (10:19)
[2018-06-21] MEDS: DOCUSATE SODIUM 100 MG CAPSULE PO SCH ×2 (10:19→18:16)
[2018-06-21] MEDS: ASPIRIN 81 MG TABLET, CHEWABLE PO SCH (10:19)
[2018-06-21] MEDS: CARVEDILOL 3.125 MG TABLET PO SCH ×2 (10:19→21:00)
[2018-06-21] MEDS: ACETAMINOPHEN 325 MG TABLET PO SCH ×4 (10:19→21:00)
[2018-06-21] MEDS: CYCLOSPORINE 0.05% OPH EMULSIO 0.4 ML DROPERETTE OU SCH (10:20)
--- NOTE | 2018-06-21 16:07 | PDOC PROGRESS REPORT ---
Subjective Progress Note for:: 06/21/18 Subjective:: No adverse events overnight. No new complaints. Vital signs been stable. He is been sitting in his chair for a large portion of the day watching television, as he usually does. Reason For Visit: CHF Physical Exam Vital Signs: Temp Pulse Resp BP Pulse Ox 98.0 F 80 20 110/63 99 06/21/18 12:30 06/21/18 12:30 06/21/18 12:30 06/21/18 12:30 06/21/18 12:30 Intake & Output 06/20/18 06/21/18 06/22/18 06:59 06:59 06:59 Intake Total 1684 1158 Output Total 1000 1075 Balance 684 83 Weight 75.1 kg General appearance: PRESENT: no acute distress, cooperative, obese Respiratory exam: PRESENT: clear to auscultation rahul, symmetrical, unlabored. ABSENT: accessory muscle use, prolonged expiratory phas, rales, rhonchi, tachypnea, wheezes Cardiovascular exam: PRESENT: RRR, +S1, +S2, systolic murmur Vascular exam: PRESENT: normal capillary refill GI/Abdominal exam: PRESENT: normal bowel sounds, soft. ABSENT: distended, guarding, rebound, tenderness Extremities exam: PRESENT: pedal edema - Trace. ABSENT: clubbing Musculoskeletal exam: PRESENT: normal inspection. ABSENT: deformity Neurological exam: PRESENT: alert, awake, oriented to person, oriented to place, oriented to situation Psychiatric exam: PRESENT: appropriate affect, normal mood Skin exam: PRESENT: dry, warm Results Laboratory Results: 06/03/18 08:12 06/16/18 11:33 05/11/18 05/11/18 05/11/18 09:35 09:35 09:35 Creatine Kinase 37 L CK-MB (CK-2) Troponin I 0.071 NT-Pro-B Natriuret Pep 6800 H 05/11/18 05/11/18 05/12/18 12:30 19:00 01:06 Creatine Kinase CK-MB (CK-2) Troponin I 0.067 0.064 0.050 NT-Pro-B Natriuret Pep 05/23/18 05/24/18 05/27/18 10:36 09:38 10:01 Creatine Kinase CK-MB (CK-2) Troponin I 0.060 NT-Pro-B Natriuret Pep 819 889 06/03/18 06/08/18 06/08/18 08:12 13:40 13:40 Creatine Kinase 39 L CK-MB (CK-2) 1.92 Troponin I 0.060 NT-Pro-B Natriuret Pep 1420 H 06/08/18 06/08/18 06/09/18 19:03 19:03 00:59 Creatine Kinase 36 L 34 L CK-MB (CK-2) 1.75 Troponin I 0.058 NT-Pro-B Natriuret Pep 06/09/18 06/09/18 06/09/18 00:59 08:04 08:04 Creatine Kinase 32 L CK-MB (CK-2) 1.58 1.79 Troponin I 0.063 0.064 NT-Pro-B Natriuret Pep 06/09/18 06/09/18 06/09/18 12:52 12:52 19:00 Creatine Kinase 46 L 31 L CK-MB (CK-2) 1.99 Troponin I 0.051 NT-Pro-B Natriuret Pep 06/09/18 19:00 Creatine Kinase CK-MB (CK-2) 1.80 Troponin I 0.072 NT-Pro-B Natriuret Pep Impressions: Thoracentesis Ultrasound 05/13/18 10:06 IMPRESSION: SUCCESSFUL THORACENTESIS USING ULTRASOUND GUIDANCE. Chest X-Ray 06/08/18 00:00 IMPRESSION: Cardiogenic pulmonary edema with bilateral pleural effusions. Assessment & Plan - Diagnosis (1) DEANNA (acute kidney injury) Is this a current diagnosis for this admission?: Yes Plan: Acute on chronic. Resolved. Back to his baseline. (2) Hyperkalemia Is this a current diagnosis for this admission?: Yes Plan: Resolved (3) Acute on chronic systolic heart failure, NYHA class 4 Is this a current diagnosis for this admission?: Yes Plan: Resolved. Currently euvolemic. Awaiting placement, which is apparently a bit of a complicated situation. Continue current medications. - Time Time Spent with patient: 15-24 minutes
[2018-06-21] MEDS: INSULIN LISPRO 100 UNIT/ML 3 ML VIAL SUBCUT PRN (18:16)
[2018-06-21] MEDS: ROPINIROLE HCL 0.25 MG TABLET PO SCH (21:00)
[2018-06-22] MEDS: ACETAMINOPHEN 325 MG TABLET PO SCH ×4 (09:16→22:27)
[2018-06-22] MEDS: TRAMADOL HCL 50 MG TABLET PO PRN ×3 (09:16→21:38)
[2018-06-22] MEDS: GABAPENTIN 100 MG CAPSULE PO SCH ×4 (09:16→22:27)
[2018-06-22] MEDS: DIGOXIN 0.125 MG TABLET PO SCH (09:16)
[2018-06-22] MEDS: DOCUSATE SODIUM 100 MG CAPSULE PO SCH ×2 (09:16→18:11)
[2018-06-22] MEDS: CARVEDILOL 3.125 MG TABLET PO SCH ×2 (09:17→22:27)
[2018-06-22] MEDS: ASPIRIN 81 MG TABLET, CHEWABLE PO SCH (09:17)
[2018-06-22] MEDS: FUROSEMIDE 20 MG TABLET PO SCH (09:17)
[2018-06-22] MEDS: CYCLOSPORINE 0.05% OPH EMULSIO 0.4 ML DROPERETTE OU SCH (09:19)
--- NOTE | 2018-06-22 10:38 | PDOC PROGRESS REPORT ---
Subjective Progress Note for:: 06/22/18 Subjective:: No adverse events overnight. No new complaints. Vital signs been stable. He actually slept in the recliner last night. Reason For Visit: CHF Physical Exam Vital Signs: Temp Pulse Resp BP Pulse Ox 98.5 F 105 H 16 128/90 H 100 06/22/18 07:49 06/22/18 07:49 06/22/18 07:49 06/22/18 07:49 06/22/18 07:49 Intake & Output 06/21/18 06/22/18 06/23/18 06:59 06:59 06:59 Intake Total 1158 1508 Output Total 1075 1150 Balance 83 358 Weight 86.6 kg General appearance: PRESENT: no acute distress, cooperative, obese Respiratory exam: PRESENT: clear to auscultation rahul, symmetrical, unlabored. ABSENT: accessory muscle use, prolonged expiratory phas, rales, rhonchi, tachypnea, wheezes Cardiovascular exam: PRESENT: RRR, +S1, +S2, systolic murmur Vascular exam: PRESENT: normal capillary refill GI/Abdominal exam: PRESENT: normal bowel sounds, soft. ABSENT: distended, guarding, rebound, tenderness Extremities exam: PRESENT: pedal edema - Trace. ABSENT: clubbing Musculoskeletal exam: PRESENT: normal inspection. ABSENT: deformity Neurological exam: PRESENT: alert, awake, oriented to person, oriented to place, oriented to situation Psychiatric exam: PRESENT: appropriate affect, normal mood Skin exam: PRESENT: dry, warm Results Laboratory Results: 06/03/18 08:12 06/16/18 11:33 05/11/18 05/11/18 05/11/18 09:35 09:35 09:35 Creatine Kinase 37 L CK-MB (CK-2) Troponin I 0.071 NT-Pro-B Natriuret Pep 6800 H 05/11/18 05/11/18 05/12/18 12:30 19:00 01:06 Creatine Kinase CK-MB (CK-2) Troponin I 0.067 0.064 0.050 NT-Pro-B Natriuret Pep 05/23/18 05/24/18 05/27/18 10:36 09:38 10:01 Creatine Kinase CK-MB (CK-2) Troponin I 0.060 NT-Pro-B Natriuret Pep 819 889 06/03/18 06/08/18 06/08/18 08:12 13:40 13:40 Creatine Kinase 39 L CK-MB (CK-2) 1.92 Troponin I 0.060 NT-Pro-B Natriuret Pep 1420 H 06/08/18 06/08/18 06/09/18 19:03 19:03 00:59 Creatine Kinase 36 L 34 L CK-MB (CK-2) 1.75 Troponin I 0.058 NT-Pro-B Natriuret Pep 06/09/18 06/09/18 06/09/18 00:59 08:04 08:04 Creatine Kinase 32 L CK-MB (CK-2) 1.58 1.79 Troponin I 0.063 0.064 NT-Pro-B Natriuret Pep 06/09/18 06/09/18 06/09/18 12:52 12:52 19:00 Creatine Kinase 46 L 31 L CK-MB (CK-2) 1.99 Troponin I 0.051 NT-Pro-B Natriuret Pep 06/09/18 19:00 Creatine Kinase CK-MB (CK-2) 1.80 Troponin I 0.072 NT-Pro-B Natriuret Pep Impressions: Thoracentesis Ultrasound 05/13/18 10:06 IMPRESSION: SUCCESSFUL THORACENTESIS USING ULTRASOUND GUIDANCE. Chest X-Ray 06/08/18 00:00 IMPRESSION: Cardiogenic pulmonary edema with bilateral pleural effusions. Assessment & Plan - Diagnosis (1) DEANNA (acute kidney injury) Is this a current diagnosis for this admission?: Yes Plan: Acute on chronic. Resolved. Back to his baseline. (2) Hyperkalemia Is this a current diagnosis for this admission?: Yes Plan: Resolved (3) Acute on chronic systolic heart failure, NYHA class 4 Is this a current diagnosis for this admission?: Yes Plan: Resolved. Currently euvolemic. Awaiting placement, which is apparently a bit of a complicated situation. Continue current medications. - Time Time Spent with patient: 15-24 minutes
--- NOTE | 2018-06-22 16:35 | PDOC CONSULTATION ---
Consultation Consult Date: 05/15/18 Consult reason:: Dyspnea History of Present Illness Admission Date/PCP: 05/11/18 12:22 RICK ROBISON MD History of Present Illness: ALEX KNIGHT is a 62 year old male, with multiple medical problems presented to the emergency room with shortness of breath he has a history of COPD congestive heart failure has AICD with ejection fraction to 20-25% he denies purulent cough but admits to clear phlegm no hemoptysis PPD is negative the dates unknown no history of chronic lung disease as a child or adolescent is greater than a [id number] history of smoking but has not smoked in the last 4 years. No pets no recent travel no angina-like chest pain sleeps on a hot hospital bed approximately 45 degrees angle daily edema. Past Medical History Cardiac Medical History: Reports: Congestive Heart Failure - Systolic with EF of 25-30% as of 2D echo in July 2017, Coronary Artery Disease, Myocardial Infarction - 2008, Hyperlipidema, Hypertension Pulmonary Medical History: Reports: Asthma, Bronchitis, Chronic Obstructive Pulmonary Disease (COPD), Sleep Apnea Neurological Medical History: Denies: Seizures Endocrine Medical History: Reports: Diabetes Mellitus Type 1, Diabetes Mellitus Type 2 Renal/ Medical History: Malignancy Medical History: Denies: Ovarian Cancer GI Medical History: Reports: Diverticulitis, Gastroesophageal Reflux Disease Musculoskeltal Medical History: Reports: Arthritis Psychiatric Medical History: Reports: Post Traumatic Stress Disorder Denies: Depression Hematology: Reports: Anemia Infectious Medical History: Past Surgical History Past Surgical History: Reports: Cardiac Catheterization, Coronary Artery Bypass Graft, Coronary Stent - 1984, Other - AICD Social History Information Source: [facility] Records Smoking Status: Never Smoker Passive smoke exposure as: Both Frequency of Alcohol Use: None Hx Recreational Drug Use: No Drugs: None Hx Prescription Drug Abuse: No Do you have pets?: No Have you had any respiratory illnesses as a child?: Yes Have you been exposed to any sick contacts recently?: No Have you had any recent respiratory illnesses?: No Have you travelled outside of [place] in the past 12 months?: No Family History Family History: CAD, DM, Hypertension, Thyroid Disfunction Parental Family History Reviewed: Yes Children Family History Reviewed: Yes Sibling(s) Family History Reviewed.: Yes Medication/Allergy Home Medications: Albuterol Sulfate [Proair HFA] 1 puff IH Q6HP PRN 03/31/18 Aspirin [Aspirin 81 mg Chewable Tablet] 162 mg PO DAILY 03/31/18 Ganciclovir [Zirgan] 1 drop OD 5XD 03/31/18 [place]-3 Fatty Acids/Fish Oil [Fish Oil 1,000 mg Capsule] 2,000 mg PO BID 03/31/18 Digoxin [Lanoxin 0.125 mg Tablet] 0.125 mg PO DAILY 30 Days #30 tablet 04/02/18 Furosemide [Lasix 20 mg Tablet] 20 mg PO QAM #10 tablet 05/07/18 Alprazolam [Xanax 0.5 mg Tablet] 0.5 mg PO DAILYP PRN 05/11/18 Dextran 70/Hypromellose [Artificial Tears] 1 drop OP QID 05/11/18 Methenamine Hippurate 24 gm PO .ASDIRECTED 05/11/18 Naproxen [Naprosyn] 500 mg PO BIDP PRN 05/11/18 Potassium Chloride [Klor-Con 10 Meq Capsule ER] 20 meq PO DAILY 05/11/18 Spironolactone [Aldactone 25 mg Tablet] 12.5 mg PO DAILY 05/11/18 Allergies/Adverse Reactions: captopril [From Capoten] Allergy (Severe, Verified 05/11/18 08:49) Angioedema atorvastatin calcium [From Lipitor] Allergy (Intermediate, Verified 05/11/18 08:49) Angioedema clopidogrel [From Plavix] Allergy (Verified 05/11/18 08:49) rosuvastatin [From Crestor] Allergy (Verified 05/11/18 08:49) simvastatin [From Zocor] Allergy (Verified 05/11/18 08:49) Angioedema Review of Systems Constitutional: PRESENT: fatigue. ABSENT: anorexia Eyes: ABSENT: visual disturbances Ears: ABSENT: hearing changes Nose, Mouth, and Throat: ABSENT: mouth pain, sore throat Cardiovascular: PRESENT: dyspnea on exertion, edema, orthropnea Respiratory: PRESENT: cough, dyspnea. ABSENT: hemoptysis Gastrointestinal: PRESENT: melena - 32 over. ABSENT: abdominal pain, bloating, coffee ground emesis, hematemesis, hematochezia Genitourinary: PRESENT: dysuria, hematuria Musculoskeletal: PRESENT: deformity Integumentary: PRESENT: lesions, pruritus Neurological: ABSENT: abnormal gait, abnormal movements, abnormal speech, confusion, focal weakness, frequent falls, memory loss Psychiatric: ABSENT: hallucinations, homidical ideation, suicidal ideation Endocrine: ABSENT: cold intolerance, heat intolerance, polydipsia, polyuria Hematologic/Lymphatic: ABSENT: easy bruising Allergic/Immunologic: ABSENT: seasonal rhinorrhea Physical Exam Vital Signs: Temp Pulse Resp BP Pulse Ox 97.7 F 93 20 101/64 100 05/22/18 06:14 05/22/18 06:14 05/22/18 06:14 05/22/18 06:14 05/22/18 06:14 Intake & Output 05/21/18 05/22/18 05/23/18 06:59 06:59 06:59 Intake Total 1375 1575 Output Total 1550 1300 Balance -175 275 General appearance: PRESENT: no acute distress, cooperative, disheveled, obese Head exam: PRESENT: atraumatic, normocephalic Eye exam: PRESENT: conjunctiva pale, EOMI. ABSENT: nystagmus Mouth exam: PRESENT: dry mucosa, neck supple, tongue midline Neck exam: ABSENT: carotid bruit, JVD, lymphadenopathy, thyromegaly, tracheal deviation, tracheostomy Respiratory exam: PRESENT: prolonged expiratory phas, rales, rhonchi, unlabored. ABSENT: decreased breath sounds Cardiovascular exam: PRESENT: irregular rhythm Pulses: PRESENT: normal radial pulses GI/Abdominal exam: PRESENT: soft. ABSENT: tenderness Extremities exam: PRESENT: calf tenderness, clubbing, full ROM, +1 edema. ABSENT: joint swelling Musculoskeletal exam: ABSENT: deformity, dislocation Neurological exam: PRESENT: awake Psychiatric exam: PRESENT: appropriate affect Skin exam: PRESENT: dry, warm Results Laboratory Results: 05/21/18 11:14 05/21/18 11:14 05/11/18 05/11/18 05/11/18 09:35 09:35 09:35 Creatine Kinase 37 L Troponin I 0.071 NT-Pro-B Natriuret Pep 6800 H 05/11/18 05/11/18 05/12/18 12:30 19:00 01:06 Creatine Kinase Troponin I 0.067 0.064 0.050 NT-Pro-B Natriuret Pep Impressions: Thoracentesis Ultrasound 05/13/18 10:06 IMPRESSION: SUCCESSFUL THORACENTESIS USING ULTRASOUND GUIDANCE. Chest X-Ray 05/17/18 09:40 IMPRESSION: Decrease in the right pleural effusion but with persistent moderate effusion basilar opacities. Persistent prominent left retrocardiac density likely effusion/atelectasis. Assessment & Plan - Diagnosis (1) Acute on chronic systolic (congestive) heart failure Is this a current diagnosis for this admission?: Yes Plan: as per cardiology (2) Pleural effusion Is this a current diagnosis for this admission?: Yes Plan: Thoracentesis (3) Acute respiratory failure with hypoxia and hypercapnia Is this a current diagnosis for this admission?: Yes Plan: BiPAP consider switching to AVAPS (4) Atrial fibrillation Qualifiers: Atrial fibrillation type: paroxysmal Qualified Code(s): I48.0 - Paroxysmal atrial fibrillation Is this a current diagnosis for this admission?: Yes Plan: As per cardiology ventricular response stable at this time (5) Noncompliance Is this a current diagnosis for this admission?: Yes (6) VIOLETA (obstructive sleep apnea) Is this a current diagnosis for this admission?: Yes Plan: BiPAP with supplemental O2 with chest BiPAP as well as CPAP as needed
--- NOTE | 2018-06-22 16:41 | PDOC PROGRESS REPORT ---
Subjective Progress Note for:: 05/18/18 Subjective:: about the same Reason For Visit: CHF Physical Exam Vital Signs: Temp Pulse Resp BP Pulse Ox 97.7 F 93 20 101/64 100 05/22/18 06:14 05/22/18 06:14 05/22/18 06:14 05/22/18 06:14 05/22/18 06:14 Intake & Output 05/21/18 05/22/18 05/23/18 06:59 06:59 06:59 Intake Total 1375 1575 Output Total 1550 1300 Balance -175 275 General appearance: PRESENT: no acute distress, cooperative, disheveled, obese Head exam: PRESENT: atraumatic, normocephalic Eye exam: PRESENT: conjunctiva pale, EOMI. ABSENT: nystagmus Mouth exam: PRESENT: dry mucosa, neck supple, tongue midline Neck exam: ABSENT: carotid bruit, JVD, lymphadenopathy, thyromegaly, tracheal deviation, tracheostomy Respiratory exam: PRESENT: decreased breath sounds, prolonged expiratory phas, rales, rhonchi, tachypnea, unlabored. ABSENT: retraction Cardiovascular exam: PRESENT: irregular rhythm Pulses: PRESENT: normal radial pulses GI/Abdominal exam: PRESENT: soft. ABSENT: tenderness Extremities exam: PRESENT: +1 edema. ABSENT: calf tenderness, clubbing, joint swelling Musculoskeletal exam: PRESENT: dislocation. ABSENT: ambulatory, deformity Neurological exam: PRESENT: awake Psychiatric exam: PRESENT: appropriate affect Skin exam: PRESENT: dry, warm Results Laboratory Results: 05/21/18 11:14 05/21/18 11:14 05/11/18 05/11/18 05/11/18 09:35 09:35 09:35 Creatine Kinase 37 L Troponin I 0.071 NT-Pro-B Natriuret Pep 6800 H 05/11/18 05/11/18 05/12/18 12:30 19:00 01:06 Creatine Kinase Troponin I 0.067 0.064 0.050 NT-Pro-B Natriuret Pep Impressions: Thoracentesis Ultrasound 05/13/18 10:06 IMPRESSION: SUCCESSFUL THORACENTESIS USING ULTRASOUND GUIDANCE. Chest X-Ray 05/17/18 09:40 IMPRESSION: Decrease in the right pleural effusion but with persistent moderate effusion basilar opacities. Persistent prominent left retrocardiac density likely effusion/atelectasis. Assessment & Plan - Diagnosis (1) Acute on chronic systolic (congestive) heart failure Is this a current diagnosis for this admission?: Yes Plan: as per cardiology (2) Pleural effusion Is this a current diagnosis for this admission?: Yes Plan: Thoracentesis (3) Acute respiratory failure with hypoxia and hypercapnia Is this a current diagnosis for this admission?: Yes Plan: BiPAP consider switching to AVAPS (4) Atrial fibrillation Qualifiers: Atrial fibrillation type: paroxysmal Qualified Code(s): I48.0 - Paroxysmal atrial fibrillation Is this a current diagnosis for this admission?: Yes Plan: As per cardiology ventricular response stable at this time (5) VIOLETA (obstructive sleep apnea) Is this a current diagnosis for this admission?: Yes Plan: BiPAP with supplemental O2 with chest BiPAP as well as CPAP as needed
--- NOTE | 2018-06-22 16:44 | PDOC PROGRESS REPORT ---
Subjective Progress Note for:: 05/20/18 Subjective:: about the same Reason For Visit: CHF Physical Exam Vital Signs: Temp Pulse Resp BP Pulse Ox 97.7 F 93 20 101/64 100 05/22/18 06:14 05/22/18 06:14 05/22/18 06:14 05/22/18 06:14 05/22/18 06:14 Intake & Output 05/21/18 05/22/18 05/23/18 06:59 06:59 06:59 Intake Total 1375 1575 Output Total 1550 1300 Balance -175 275 General appearance: PRESENT: no acute distress, disheveled, obese Head exam: PRESENT: atraumatic, normocephalic Eye exam: PRESENT: conjunctiva pale, EOMI Mouth exam: PRESENT: dry mucosa, neck supple, tongue midline Neck exam: ABSENT: carotid bruit, JVD, lymphadenopathy, thyromegaly, tracheal deviation Respiratory exam: PRESENT: decreased breath sounds, prolonged expiratory phas, rales, retraction, rhonchi, stridor, tachypnea Cardiovascular exam: PRESENT: irregular rhythm Pulses: PRESENT: normal radial pulses GI/Abdominal exam: PRESENT: soft. ABSENT: tenderness Extremities exam: PRESENT: calf tenderness, +1 edema. ABSENT: clubbing, full ROM, joint swelling Neurological exam: PRESENT: awake Psychiatric exam: PRESENT: appropriate affect Skin exam: PRESENT: dry, warm Results Laboratory Results: 05/21/18 11:14 05/21/18 11:14 05/11/18 05/11/18 05/11/18 09:35 09:35 09:35 Creatine Kinase 37 L Troponin I 0.071 NT-Pro-B Natriuret Pep 6800 H 05/11/18 05/11/18 05/12/18 12:30 19:00 01:06 Creatine Kinase Troponin I 0.067 0.064 0.050 NT-Pro-B Natriuret Pep Impressions: Thoracentesis Ultrasound 05/13/18 10:06 IMPRESSION: SUCCESSFUL THORACENTESIS USING ULTRASOUND GUIDANCE. Chest X-Ray 05/17/18 09:40 IMPRESSION: Decrease in the right pleural effusion but with persistent moderate effusion basilar opacities. Persistent prominent left retrocardiac density likely effusion/atelectasis. Assessment & Plan - Diagnosis (1) Acute on chronic systolic (congestive) heart failure Is this a current diagnosis for this admission?: Yes Plan: as per cardiology (2) Pleural effusion Is this a current diagnosis for this admission?: Yes Plan: Thoracentesis (3) Acute respiratory failure with hypoxia and hypercapnia Is this a current diagnosis for this admission?: Yes Plan: BiPAP consider switching to AVAPS (4) Atrial fibrillation Qualifiers: Atrial fibrillation type: paroxysmal Qualified Code(s): I48.0 - Paroxysmal atrial fibrillation Is this a current diagnosis for this admission?: Yes Plan: As per cardiology ventricular response stable at this time (5) VIOLETA (obstructive sleep apnea) Is this a current diagnosis for this admission?: Yes Plan: BiPAP with supplemental O2 with chest BiPAP as well as CPAP as needed
--- NOTE | 2018-06-22 16:54 | PDOC PROGRESS REPORT ---
Subjective Progress Note for:: 05/22/18 Subjective:: about the same Reason For Visit: CHF Physical Exam Vital Signs: Temp Pulse Resp BP Pulse Ox 97.7 F 93 20 101/64 100 05/22/18 06:14 05/22/18 06:14 05/22/18 06:14 05/22/18 06:14 05/22/18 06:14 Intake & Output 05/21/18 05/22/18 05/23/18 06:59 06:59 06:59 Intake Total 1375 1575 Output Total 1550 1300 Balance -175 275 General appearance: PRESENT: no acute distress, cooperative, disheveled, obese Head exam: PRESENT: atraumatic, normocephalic Eye exam: PRESENT: conjunctiva pale, EOMI, nystagmus Mouth exam: PRESENT: dry mucosa, neck supple, tongue midline Neck exam: ABSENT: carotid bruit, JVD, lymphadenopathy, thyromegaly, tracheal deviation, tracheostomy Respiratory exam: PRESENT: decreased breath sounds, prolonged expiratory phas, rales, rhonchi, unlabored Cardiovascular exam: PRESENT: irregular rhythm Pulses: PRESENT: normal radial pulses GI/Abdominal exam: PRESENT: soft. ABSENT: tenderness Extremities exam: PRESENT: calf tenderness, clubbing, joint swelling, +1 edema Musculoskeletal exam: ABSENT: deformity, dislocation Neurological exam: PRESENT: awake Psychiatric exam: PRESENT: appropriate affect Skin exam: PRESENT: dry, warm Results Laboratory Results: 05/21/18 11:14 05/21/18 11:14 05/11/18 05/11/18 05/11/18 09:35 09:35 09:35 Creatine Kinase 37 L Troponin I 0.071 NT-Pro-B Natriuret Pep 6800 H 05/11/18 05/11/18 05/12/18 12:30 19:00 01:06 Creatine Kinase Troponin I 0.067 0.064 0.050 NT-Pro-B Natriuret Pep Impressions: Thoracentesis Ultrasound 05/13/18 10:06 IMPRESSION: SUCCESSFUL THORACENTESIS USING ULTRASOUND GUIDANCE. Chest X-Ray 05/17/18 09:40 IMPRESSION: Decrease in the right pleural effusion but with persistent moderate effusion basilar opacities. Persistent prominent left retrocardiac density likely effusion/atelectasis. Assessment & Plan - Diagnosis (1) Acute on chronic systolic (congestive) heart failure Is this a current diagnosis for this admission?: Yes Plan: as per cardiology (2) Pleural effusion Is this a current diagnosis for this admission?: Yes Plan: Thoracentesis (3) Acute respiratory failure with hypoxia and hypercapnia Is this a current diagnosis for this admission?: Yes Plan: BiPAP consider switching to AVAPS (4) Atrial fibrillation Qualifiers: Atrial fibrillation type: paroxysmal Qualified Code(s): I48.0 - Paroxysmal atrial fibrillation Is this a current diagnosis for this admission?: Yes Plan: As per cardiology ventricular response stable at this time (5) VIOLETA (obstructive sleep apnea) Is this a current diagnosis for this admission?: Yes Plan: BiPAP with supplemental O2 with chest BiPAP as well as CPAP as needed
[2018-06-22] MEDS: ROPINIROLE HCL 0.25 MG TABLET PO SCH (22:31)
[2018-06-23] MEDS: TRAMADOL HCL 50 MG TABLET PO PRN ×2 (08:30→14:57)
[2018-06-23] MEDS: FUROSEMIDE 20 MG TABLET PO SCH (09:35)
[2018-06-23] MEDS: DIGOXIN 0.125 MG TABLET PO SCH (09:35)
[2018-06-23] MEDS: DOCUSATE SODIUM 100 MG CAPSULE PO SCH ×2 (09:35→18:04)
[2018-06-23] MEDS: CARVEDILOL 3.125 MG TABLET PO SCH ×2 (09:35→21:23)
[2018-06-23] MEDS: GABAPENTIN 100 MG CAPSULE PO SCH ×4 (09:35→21:24)
[2018-06-23] MEDS: CYCLOSPORINE 0.05% OPH EMULSIO 0.4 ML DROPERETTE OU SCH (09:36)
[2018-06-23] MEDS: ACETAMINOPHEN 325 MG TABLET PO SCH ×4 (09:36→21:24)
[2018-06-23] MEDS: ASPIRIN 81 MG TABLET, CHEWABLE PO SCH (09:36)
[2018-06-23] MEDS: INSULIN LISPRO 100 UNIT/ML 3 ML VIAL SUBCUT SCH ×3 (13:15→21:24)
[2018-06-23 13:21] LABS: ANION GAP 9 (5-19); BLOOD UREA NITROGEN 25 mg/dL (7-20); CARBON DIOXIDE 34 mmol/L (22-30); CHLORIDE 98 mmol/L (98-107); GLUCOSE 109 mg/dL (75-110); POTASSIUM 5.3 mmol/L (3.6-5.0); SODIUM 140.7 mmol/L (137-145)
[2018-06-23] MEDS ORDERED: SODIUM POLYSTYRENE SULFONATE 15 GM/60 ML PO ONE (14:51)
--- NOTE | 2018-06-23 14:51 | PDOC PROGRESS REPORT ---
Subjective Progress Note for:: 06/23/18 Subjective:: This is a 62-year-old male with a past medical history of CAD, prior CABG, COPD, diet-controlled DM, chronic systolic heart failure from ischemic cardiomyopathy with prior AICD placement, chronic respiratory failure on home O2, history of CVA with residual partial expressive aphasia who initially presented with increasing shortness of breath and leg swelling. Patient was admitted for CHF exacerbation. Patient has partial expressive aphasia (has some residual slurring and pauses) but is coherent and is able to converse with provider. He says his SOB is at baseline but he becomes short of breath when lying supine. He has been having persistent orthopnea. 05/13: Discussed in length again this morning with caregiver (Nuria) and patient. We discussed the need for thoracentesis again this morning including the indication due to his persistent orthopnea and significant bilateral pleural effusion. Also discussed the small risk of pneumothorax. Patient did agree undergo thoracentesis as he has been having patient orthopnea. Patient is oriented to person, place and situation. Also discussed with personal financial planner on bedside about possible option to be transferred to a [facility] in [place] as patient is a his history of placement and disposition. He does not want to be transferred at this time and would prefer to stay here. 05/14: Patient does appear to have into capacity to make his own medical decisions. Patient was also evaluated by psych who deemed the same. Discussed in length again today about plan and disposition. Patient says he does not want to go to a [facility] or rehab. He also does not want to talk about his CODE STATUS and says that he will "sort it out" later. Offered palliative care consult and he is receptive to it but not hospice. He says his breathing has improved after the thoracentesis. Admission Discharge Rn recommended BiPAP at home. Patient is resistant on using BiPAP at home but agrees to try it here while inpatient and see if he tolerates it. 05/15: Upon encounter this morning, patient was sleeping on the recliner. Patient says that his house is not fixed yet. He says he does not want to go to any of the surrounding SNF/rehab facilities at this time but is agreeable to being transferred to the [facility] in [place]. Convinced on trying the BiPAP and he says he will try wearing it. 05/16: No acute event overnight. Patient has complied with BIPAP. He says his breathing has slightly improved but still has orthopnea. Denies chest pain or dizziness. 05/17: Patient says his breathing has improved and he feels better today. He says he can use the BIPAP for 2 hrs but is willing to try to extend it to 3-4 hrs today. 05/18: Patient only used BIPAP for 1.5 hrs last night. Upon encounter, he does say that he breathes and feels better when on BIPAP. He was advised on increas ing his BIPAP use again today. He denies worsening SOB or chest pain. Still awaiting for update on transfer to [facility] in [facility]. Patient has remained stable with no acute issues in the interim and has just been waiting for placement. 05/26/18: He has been more complaint with BIPAP. He denies acute SOB and feels like he is at his baseline. 05/27/18: No acute event overnight. He did complaint of transient chest tightness this morning after he ate a big breakfast (ham and omelet). He says it only lasted for a few seconds. EKG was negative for acute changes. 05/28/18: No acute event. No acute symptoms, no chest pain or SOB. He is at his baseline. 05/29/18: No acute event. Patient denies any acute complaint. Updated by RN and personal financial planner that patient's house will be condemned due to multiple issues. 05/30/18: No acute issues. Patient is still awaiting placement. 05/31/18:Patient is still awaiting placement. Discussed with Eryn on bedside, patient's wildland fire fighter who says she is getting her new house soon and may be able to have patient live with her. 06/09/18: Reassumed care today. No acute issues in the interim. Patient still here due to placement issues. Apparently, his wildland fire fighter's house was not ready yet. He is at his baseline and denies chest pain or SOB at the moment. 06/13/18: No acute issues. Denies chest pain or SOB. Discussed on bedside with Eryn (wildland fire fighter) today who says they are still doing repairs for a leakage at her house. Patient has remained stable with no acute issues in the interim and is still waiting for placement. 06/23/18: Reassumed care today. No acute issues. He denies acute complaints. Still awaiting placement. [facility]. Reason For Visit: CHF Physical Exam Vital Signs: Temp Pulse Resp BP Pulse Ox 98.7 F 95 20 97/61 L 97 06/23/18 11:52 06/23/18 11:52 06/23/18 11:52 06/23/18 11:52 06/23/18 11:52 Intake & Output 06/22/18 06/23/18 06/24/18 06:59 06:59 06:59 Intake Total 1508 933 480 Output Total 1150 650 430 Balance 358 283 50 Weight 190 lb 14.725 oz General appearance: PRESENT: no acute distress, obese Head exam: PRESENT: atraumatic, normocephalic Eye exam: PRESENT: conjunctiva pink, EOMI, PERRLA. ABSENT: scleral icterus Ear exam: PRESENT: normal external ear exam Mouth exam: PRESENT: moist, tongue midline Respiratory exam: PRESENT: decreased breath sounds - slightly dec BS on the bas es, unchanged. ABSENT: rales, rhonchi, wheezes Cardiovascular exam: PRESENT: systolic murmur. ABSENT: diastolic murmur, rubs GI/Abdominal exam: PRESENT: normal bowel sounds, soft. ABSENT: distended, guarding, mass, organolmegaly, rebound, tenderness Rectal exam: PRESENT: deferred Extremities exam: PRESENT: +2 edema Results Laboratory Results: 06/03/18 08:12 06/23/18 12:31 06/23/18 12:31 Sodium 140.7 Potassium 5.3 H Chloride 98 Carbon Dioxide 34 H Anion Gap 9 BUN 25 H Creatinine 1.26 H Est GFR ( Amer) > 60 Est GFR (Non-Af Amer) 58 L Glucose 109 Calcium 9.0 05/11/18 05/11/18 05/11/18 09:35 09:35 09:35 Creatine Kinase 37 L CK-MB (CK-2) Troponin I 0.071 NT-Pro-B Natriuret Pep 6800 H 05/11/18 05/11/18 05/12/18 12:30 19:00 01:06 Creatine Kinase CK-MB (CK-2) Troponin I 0.067 0.064 0.050 NT-Pro-B Natriuret Pep 05/23/18 05/24/18 05/27/18 10:36 09:38 10:01 Creatine Kinase CK-MB (CK-2) Troponin I 0.060 NT-Pro-B Natriuret Pep 819 889 06/03/18 06/08/18 06/08/18 08:12 13:40 13:40 Creatine Kinase 39 L CK-MB (CK-2) 1.92 Troponin I 0.060 NT-Pro-B Natriuret Pep 1420 H 06/08/18 06/08/18 06/09/18 19:03 19:03 00:59 Creatine Kinase 36 L 34 L CK-MB (CK-2) 1.75 Troponin I 0.058 NT-Pro-B Natriuret Pep 06/09/18 06/09/18 06/09/18 00:59 08:04 08:04 Creatine Kinase 32 L CK-MB (CK-2) 1.58 1.79 Troponin I 0.063 0.064 NT-Pro-B Natriuret Pep 06/09/18 06/09/18 06/09/18 12:52 12:52 19:00 Creatine Kinase 46 L 31 L CK-MB (CK-2) 1.99 Troponin I 0.051 NT-Pro-B Natriuret Pep 06/09/18 19:00 Creatine Kinase CK-MB (CK-2) 1.80 Troponin I 0.072 NT-Pro-B Natriuret Pep Impressions: Thoracentesis Ultrasound 05/13/18 10:06 IMPRESSION: SUCCESSFUL THORACENTESIS USING ULTRASOUND GUIDANCE. Chest X-Ray 06/08/18 00:00 IMPRESSION: Cardiogenic pulmonary edema with bilateral pleural effusions. Assessment & Plan - Diagnosis (1) Acute and chronic respiratory failure with hypoxia Is this a current diagnosis for this admission?: Yes Plan: Secondary to CHF exacerbation. Continue BIPAP at night. (2) Acute on chronic systolic (congestive) heart failure Is this a current diagnosis for this admission?: Yes Plan: Combined systolic and diastolic biventricular failure. Continue Lasix 40 mg daily. Cardiology following. Echo shows an EF of 30-35%, grade 2 diastolic dysfunction and dilated left and right ventricular. Patient already has an AI CD. Patient is not on UZMA inhibitor hence is not on optimal medical therapy. CHF medication regimen cannot be optimized as patient has had angioedema from captopril before. Both UZMA inhibitors and Entresto will be contraindicated to a history of ACEi-associated angioedema. Discussed with cardio and pulm. Recommendation for BIPAP at home/discharge for his biventricular heart failure and significant pulmonary hypertension. Continue Coreg. Aldactone discontinued as patient did have recurrence of hyperkalemia when it was resumed. 06/11/18: Creatinine trended up to 1.5. Decreased Lasix to 20 mg daily today. 06/13/18: Creatinine has improved down to 1.2. Will increase Lasix back to 40 mg daily as his Aldactone was also d/raghav due to hyperkalemia. 06/15/18: Creatinine trended up to 1.4 again after increasing Lasix back to 40 mg daily. Reduce down to home dose of 20 mg daily. 06/23/18: Creatinine at baseline of 1.2. Continue Lasix 20 mg daily. (3) Pleural effusion Is this a current diagnosis for this admission?: Yes Plan: S/P right sided thoracentesis (750 cc) on 05/13/18. Pleural fluid analysis is consistent with transudative effusion likely related to patient's CHF. Chest x- ray after thoracentesis did show improvement in aeration of the right lower lung salazar. (4) CAD (coronary artery disease) Is this a current diagnosis for this admission?: Yes Plan: Stable. Continue aspirin, statin and beta steve. (5) Hyperkalemia Is this a current diagnosis for this admission?: Yes Plan: Resolved after discontinuing Aldactone. Potassium today trended up to 5.6. Will recheck another BMP tomorrow. Aldactone will be indefinitely discontinued as he has consistently developed recurrence of hyperkalemia with Aldactone. (6) DEANNA (acute kidney injury) Is this a current diagnosis for this admission?: Yes Plan: Improved but creatinine trended up again after increasing Lasix to 40 mg daily. Reduce back down to 20 mg Lasix daily. Repeat BMP tomorrow. Creatinine now at baseline of 1.2. - Time Time Spent with patient: 25-34 minutes
[2018-06-23] MEDS ORDERED: PATIROMER 8.4 GM SUSP PACKET PO ONE ×2 (18:30→21:00)
[2018-06-23] MEDS: ROPINIROLE HCL 0.25 MG TABLET PO SCH (21:28)
[2018-06-24] MEDS: INSULIN LISPRO 100 UNIT/ML 3 ML VIAL SUBCUT SCH ×4 (09:12→21:15)
[2018-06-24] MEDS: GABAPENTIN 100 MG CAPSULE PO SCH ×4 (09:23→21:08)
[2018-06-24] MEDS: DOCUSATE SODIUM 100 MG CAPSULE PO SCH ×3 (09:23→17:44)
[2018-06-24] MEDS: ACETAMINOPHEN 325 MG TABLET PO SCH ×4 (09:24→21:07)
[2018-06-24] MEDS: ASPIRIN 81 MG TABLET, CHEWABLE PO SCH (09:24)
[2018-06-24] MEDS: FUROSEMIDE 20 MG TABLET PO SCH (09:25)
[2018-06-24] MEDS: CARVEDILOL 3.125 MG TABLET PO SCH ×2 (09:26→21:07)
[2018-06-24] MEDS: DIGOXIN 0.125 MG TABLET PO SCH (09:26)
[2018-06-24] MEDS: CYCLOSPORINE 0.05% OPH EMULSIO 0.4 ML DROPERETTE OU SCH (09:27)
[2018-06-24] MEDS: TRAMADOL HCL 50 MG TABLET PO PRN (09:34)
--- NOTE | 2018-06-24 14:28 | PDOC PROGRESS REPORT ---
Subjective Progress Note for:: 06/24/18 Subjective:: This is a 62-year-old male with a past medical history of CAD, prior CABG, COPD, diet-controlled DM, chronic systolic heart failure from ischemic cardiomyopathy with prior AICD placement, chronic respiratory failure on home O2, history of CVA with residual partial expressive aphasia who initially presented with increasing shortness of breath and leg swelling. Patient was admitted for CHF exacerbation. Patient has partial expressive aphasia (has some residual slurring and pauses) but is coherent and is able to converse with provider. He says his SOB is at baseline but he becomes short of breath when lying supine. He has been having persistent orthopnea. 05/13: Discussed in length again this morning with caregiver (Nuria) and patient. We discussed the need for thoracentesis again this morning including the indication due to his persistent orthopnea and significant bilateral pleural effusion. Also discussed the small risk of pneumothorax. Patient did agree undergo thoracentesis as he has been having patient orthopnea. Patient is oriented to person, place and situation. Also discussed with certified financial planner on bedside about possible option to be transferred to a [facility] in [place] as patient is a his history of placement and disposition. He does not want to be transferred at this time and would prefer to stay here. 05/14: Patient does appear to have into capacity to make his own medical decisions. Patient was also evaluated by psych who deemed the same. Discussed in length again today about plan and disposition. Patient says he does not want to go to a retirement or rehab. He also does not want to talk about his CODE STATUS and says that he will "sort it out" later. Offered palliative care consult and he is receptive to it but not hospice. He says his breathing has improved after the thoracentesis. Lube Attendant recommended BiPAP at home. Patient is resistant on using BiPAP at home but agrees to try it here while inpatient and see if he tolerates it. 05/15: Upon encounter this morning, patient was sleeping on the recliner. Patient says that his house is not fixed yet. He says he does not want to go to any of the surrounding SNF/rehab facilities at this time but is agreeable to being transferred to the [facility] in [place]. Convinced on trying the BiPAP and he says he will try wearing it. 05/16: No acute event overnight. Patient has complied with BIPAP. He says his breathing has slightly improved but still has orthopnea. Denies chest pain or dizziness. 05/17: Patient says his breathing has improved and he feels better today. He says he can use the BIPAP for 2 hrs but is willing to try to extend it to 3-4 hrs today. 05/18: Patient only used BIPAP for 1.5 hrs last night. Upon encounter, he does say that he breathes and feels better when on BIPAP. He was advised on increas ing his BIPAP use again today. He denies worsening SOB or chest pain. Still awaiting for update on transfer to [facility] in [facility]. Patient has remained stable with no acute issues in the interim and has just been waiting for placement. 05/26/18: He has been more complaint with BIPAP. He denies acute SOB and feels like he is at his baseline. 05/27/18: No acute event overnight. He did complaint of transient chest tightness this morning after he ate a big breakfast (ham and omelet). He says it only lasted for a few seconds. EKG was negative for acute changes. 05/28/18: No acute event. No acute symptoms, no chest pain or SOB. He is at his baseline. 05/29/18: No acute event. Patient denies any acute complaint. Updated by RN and certified financial planner that patient's house will be condemned due to multiple issues. 05/30/18: No acute issues. Patient is still awaiting placement. 05/31/18:Patient is still awaiting placement. Discussed with Eryn on bedside, patient's wellness manager who says she is getting her new house soon and may be able to have patient live with her. 06/09/18: Reassumed care today. No acute issues in the interim. Patient still here due to placement issues. Apparently, his wellness manager's house was not ready yet. He is at his baseline and denies chest pain or SOB at the moment. 06/13/18: No acute issues. Denies chest pain or SOB. Discussed on bedside with Eryn (wellness manager) today who says they are still doing repairs for a leakage at her house. Patient has remained stable with no acute issues in the interim and is still waiting for placement. 06/23/18: Reassumed care today. No acute issues. 06/24/18: No acute issues. He denies acute complaints. Still awaiting placement. [facility]. Reason For Visit: CHF Physical Exam Vital Signs: Temp Pulse Resp BP Pulse Ox 97.9 F 94 20 106/65 98 06/24/18 12:05 06/24/18 12:05 06/24/18 12:05 06/24/18 12:05 06/24/18 12:05 Intake & Output 06/23/18 06/24/18 06/25/18 06:59 06:59 06:59 Intake Total 933 1492 Output Total 650 1340 Balance 283 152 Weight 190 lb 14.725 oz General appearance: PRESENT: no acute distress, well-developed, well-nourished Head exam: PRESENT: atraumatic, normocephalic Eye exam: PRESENT: conjunctiva pink, EOMI, PERRLA. ABSENT: scleral icterus Ear exam: PRESENT: normal external ear exam Mouth exam: PRESENT: moist, tongue midline Neck exam: ABSENT: carotid bruit, JVD, lymphadenopathy, thyromegaly Respiratory exam: PRESENT: decreased breath sounds - slightly dec BS on the bases. ABSENT: rales, rhonchi, wheezes Cardiovascular exam: PRESENT: systolic murmur. ABSENT: rubs GI/Abdominal exam: PRESENT: normal bowel sounds, soft. ABSENT: distended, guarding, mass, organolmegaly, rebound, tenderness Rectal exam: PRESENT: deferred Extremities exam: PRESENT: +2 edema Neurological exam: PRESENT: alert, awake, oriented to person, oriented to place, oriented to time, oriented to situation Results Laboratory Results: 06/03/18 08:12 06/23/18 12:31 05/11/18 05/11/18 05/11/18 09:35 09:35 09:35 Creatine Kinase 37 L CK-MB (CK-2) Troponin I 0.071 NT-Pro-B Natriuret Pep 6800 H 05/11/18 05/11/18 05/12/18 12:30 19:00 01:06 Creatine Kinase CK-MB (CK-2) Troponin I 0.067 0.064 0.050 NT-Pro-B Natriuret Pep 05/23/18 05/24/18 05/27/18 10:36 09:38 10:01 Creatine Kinase CK-MB (CK-2) Troponin I 0.060 NT-Pro-B Natriuret Pep 819 889 06/03/18 06/08/18 06/08/18 08:12 13:40 13:40 Creatine Kinase 39 L CK-MB (CK-2) 1.92 Troponin I 0.060 NT-Pro-B Natriuret Pep 1420 H 06/08/18 06/08/18 06/09/18 19:03 19:03 00:59 Creatine Kinase 36 L 34 L CK-MB (CK-2) 1.75 Troponin I 0.058 NT-Pro-B Natriuret Pep 06/09/18 06/09/18 06/09/18 00:59 08:04 08:04 Creatine Kinase 32 L CK-MB (CK-2) 1.58 1.79 Troponin I 0.063 0.064 NT-Pro-B Natriuret Pep 06/09/18 06/09/18 06/09/18 12:52 12:52 19:00 Creatine Kinase 46 L 31 L CK-MB (CK-2) 1.99 Troponin I 0.051 NT-Pro-B Natriuret Pep 06/09/18 19:00 Creatine Kinase CK-MB (CK-2) 1.80 Troponin I 0.072 NT-Pro-B Natriuret Pep Impressions: Thoracentesis Ultrasound 05/13/18 10:06 IMPRESSION: SUCCESSFUL THORACENTESIS USING ULTRASOUND GUIDANCE. Chest X-Ray 06/08/18 00:00 IMPRESSION: Cardiogenic pulmonary edema with bilateral pleural effusions. Assessment & Plan - Diagnosis (1) Acute and chronic respiratory failure with hypoxia Is this a current diagnosis for this admission?: Yes Plan: Secondary to CHF exacerbation. Continue BIPAP at night. (2) Acute on chronic systolic (congestive) heart failure Is this a current diagnosis for this admission?: Yes Plan: Combined systolic and diastolic biventricular failure. Continue Lasix 40 mg daily. Cardiology following. Echo shows an EF of 30-35%, grade 2 diastolic dysfunction and dilated left and right ventricular. Patient already has an AICD. Patient is not on UZMA inhibitor hence is not on optimal medical therapy. CHF medication regimen cannot be optimized as patient has had angioedema from captopril before. Both UZMA inhibitors and Entresto will be contraindicated to a history of ACEi-associated angioedema. Discussed with cardio and pulm. Recommendation for BIPAP at home/discharge for his biventricular heart failure and significant pulmonary hypertension. Continue Coreg. Aldactone discontinued as patient did have recurrence of hyperk alemia when it was resumed. 06/11/18: Creatinine trended up to 1.5. Decreased Lasix to 20 mg daily today. 06/13/18: Creatinine has improved down to 1.2. Will increase Lasix back to 40 mg daily as his Aldactone was also d/raghav due to hyperkalemia. 06/15/18: Creatinine trended up to 1.4 again after increasing Lasix back to 40 mg daily. Reduce down to home dose of 20 mg daily. 06/23/18: Creatinine at baseline of 1.2. Continue Lasix 20 mg daily. (3) Pleural effusion Is this a current diagnosis for this admission?: Yes Plan: S/P right sided thoracentesis (750 cc) on 05/13/18. Pleural fluid analysis is consistent with transudative effusion likely related to patient's CHF. Chest x- ray after thoracentesis did show improvement in aeration of the right lower lung salazar. (4) CAD (coronary artery disease) Is this a current diagnosis for this admission?: Yes Plan: Stable. Continue aspirin, statin and beta steve. (5) Hyperkalemia Is this a current diagnosis for this admission?: Yes Plan: Resolved after discontinuing Aldactone. Potassium today trended up to 5.6. Will recheck another BMP tomorrow. Aldactone will be indefinitely discontinued as he has consistently developed recurrence of hyperkalemia with Aldactone. 06/23: He was given a dose of Patiromer. (6) DEANNA (acute kidney injury) Is this a current diagnosis for this admission?: Yes Plan: Improved but creatinine trended up again after increasing Lasix to 40 mg daily. Reduce back down to 20 mg Lasix daily. Repeat BMP tomorrow. Creatinine now at baseline of 1.2. - Time Time Spent with patient: 15-24 minutes
[2018-06-24] MEDS: ROPINIROLE HCL 0.25 MG TABLET PO SCH (21:07)
[2018-06-25 08:15] LABS: ANION GAP 8 (5-19); BLOOD UREA NITROGEN 29 mg/dL (7-20); CALCIUM 9.1 mg/dL (8.4-10.2); CARBON DIOXIDE 34 mmol/L (22-30); CHLORIDE 99 mmol/L (98-107); GLUCOSE 108 mg/dL (75-110); POTASSIUM 4.9 mmol/L (3.6-5.0); SODIUM 141.1 mmol/L (137-145)
[2018-06-25] MEDS: INSULIN LISPRO 100 UNIT/ML 3 ML VIAL SUBCUT SCH ×4 (09:29→21:14)
[2018-06-25] MEDS: ACETAMINOPHEN 325 MG TABLET PO SCH ×4 (09:32→21:20)
[2018-06-25] MEDS: DIGOXIN 0.125 MG TABLET PO SCH (09:32)
[2018-06-25] MEDS: CARVEDILOL 3.125 MG TABLET PO SCH ×2 (09:32→21:19)
[2018-06-25] MEDS: DOCUSATE SODIUM 100 MG CAPSULE PO SCH ×2 (09:32→21:21)
[2018-06-25] MEDS: ASPIRIN 81 MG TABLET, CHEWABLE PO SCH (09:32)
[2018-06-25] MEDS: GABAPENTIN 100 MG CAPSULE PO SCH ×4 (09:33→21:14)
[2018-06-25] MEDS: FUROSEMIDE 20 MG TABLET PO SCH (09:33)
[2018-06-25] MEDS: CYCLOSPORINE 0.05% OPH EMULSIO 0.4 ML DROPERETTE OU SCH (10:11)
[2018-06-25] MEDS: TRAMADOL HCL 50 MG TABLET PO PRN (12:17)
--- NOTE | 2018-06-25 13:18 | EKG REPORT ---
SEVERITY:- ABNORMAL ECG - SINUS TACHYCARDIA IRBBB AND LPFB BORDERLINE R WAVE PROGRESSION, ANTERIOR LEADS : Confirmed by: Zac Brandon MD 25-Jun-2018 13:17:20
--- NOTE | 2018-06-25 15:48 | PDOC PROGRESS REPORT ---
Subjective Progress Note for:: 06/25/18 Subjective:: This is a 62-year-old male with a past medical history of CAD, prior CABG, COPD, diet-controlled DM, chronic systolic heart failure from ischemic cardiomyopathy with prior AICD placement, chronic respiratory failure on home O2, history of CVA with residual partial expressive aphasia who initially presented with increasing shortness of breath and leg swelling. Patient was admitted for CHF exacerbation. Patient has partial expressive aphasia (has some residual slurring and pauses) but is coherent and is able to converse with provider. He says his SOB is at baseline but he becomes short of breath when lying supine. He has been having persistent orthopnea. 05/13: Discussed in length again this morning with caregiver (Nuria) and patient. We discussed the need for thoracentesis again this morning including the indication due to his persistent orthopnea and significant bilateral pleural effusion. Also discussed the small risk of pneumothorax. Patient did agree undergo thoracentesis as he has been having patient orthopnea. Patient is oriented to person, place and situation. Also discussed with communications planner on bedside about possible option to be transferred to a [facility] in [place] as patient is a his history of placement and disposition. He does not want to be transferred at this time and would prefer to stay here. 05/14: Patient does appear to have into capacity to make his own medical decisions. Patient was also evaluated by psych who deemed the same. Discussed in length again today about plan and disposition. Patient says he does not want to go to a halfway or rehab. He also does not want to talk about his CODE STATUS and says that he will "sort it out" later. Offered palliative care consult and he is receptive to it but not hospice. He says his breathing has improved after the thoracentesis. Facility Operations Manager recommended BiPAP at home. Patient is resistant on using BiPAP at home but agrees to try it here while inpatient and see if he tolerates it. 05/15: Upon encounter this morning, patient was sleeping on the recliner. Patient says that his house is not fixed yet. He says he does not want to go to any of the surrounding SNF/rehab facilities at this time but is agreeable to being transferred to the [facility] in [place]. Convinced on trying the BiPAP and he says he will try wearing it. 05/16: No acute event overnight. Patient has complied with BIPAP. He says his breathing has slightly improved but still has orthopnea. Denies chest pain or dizziness. 05/17: Patient says his breathing has improved and he feels better today. He says he can use the BIPAP for 2 hrs but is willing to try to extend it to 3-4 hrs today. 05/18: Patient only used BIPAP for 1.5 hrs last night. Upon encounter, he does say that he breathes and feels better when on BIPAP. He was advised on increas ing his BIPAP use again today. He denies worsening SOB or chest pain. Still awaiting for update on transfer to [facility] in [facility]. Patient has remained stable with no acute issues in the interim and has just been waiting for placement. 05/26/18: He has been more complaint with BIPAP. He denies acute SOB and feels like he is at his baseline. 05/27/18: No acute event overnight. He did complaint of transient chest tightness this morning after he ate a big breakfast (ham and omelet). He says it only lasted for a few seconds. EKG was negative for acute changes. 05/28/18: No acute event. No acute symptoms, no chest pain or SOB. He is at his baseline. 05/29/18: No acute event. Patient denies any acute complaint. Updated by RN and communications planner that patient's house will be condemned due to multiple issues. 05/30/18: No acute issues. Patient is still awaiting placement. 05/31/18:Patient is still awaiting placement. Discussed with Eryn on bedside, patient's industrial services worker who says she is getting her new house soon and may be able to have patient live with her. 06/09/18: Reassumed care today. No acute issues in the interim. Patient still here due to placement issues. Apparently, his industrial services worker's house was not ready yet. He is at his baseline and denies chest pain or SOB at the moment. 06/13/18: No acute issues. Denies chest pain or SOB. Discussed on bedside with Eryn (industrial services worker) today who says they are still doing repairs for a leakage at her house. Patient has remained stable with no acute issues in the interim and is still waiting for placement. 06/23/18: Reassumed care today. No acute issues. 06/24/18: No acute issues. He denies acute complaints. Still awaiting placement. [facility]. 06/25/18: Patient reportedly tripped last night but did not fall on the floor. Otherwise, he denies acute complaints. Still awaiting placement. Reason For Visit: CHF Physical Exam Vital Signs: Temp Pulse Resp BP Pulse Ox 98.7 F 94 20 128/73 H 97 06/25/18 11:43 06/25/18 11:43 06/25/18 11:43 06/25/18 11:43 06/25/18 11:43 Intake & Output 06/24/18 06/25/18 06/26/18 06:59 06:59 06:59 Intake Total 1492 1360 Output Total 1340 1650 Balance 152 -290 General appearance: PRESENT: no acute distress, well-developed, well-nourished Head exam: PRESENT: atraumatic, normocephalic Eye exam: PRESENT: conjunctiva pink, EOMI, PERRLA. ABSENT: scleral icterus Ear exam: PRESENT: normal external ear exam Mouth exam: PRESENT: moist, tongue midline Neck exam: ABSENT: carotid bruit, JVD, lymphadenopathy, thyromegaly Respiratory exam: PRESENT: decreased breath sounds - slightly dec BS on the bases. ABSENT: rales, rhonchi, wheezes Cardiovascular exam: PRESENT: systolic murmur. ABSENT: diastolic murmur GI/Abdominal exam: PRESENT: normal bowel sounds, soft. ABSENT: distended, guarding, mass, organolmegaly, rebound, tenderness Extremities exam: PRESENT: +1 edema Neurological exam: PRESENT: alert, awake, oriented to person, oriented to place, oriented to time Results Laboratory Results: 06/03/18 08:12 06/25/18 07:35 06/25/18 07:35 Sodium 141.1 Potassium 4.9 Chloride 99 Carbon Dioxide 34 H Anion Gap 8 BUN 29 H Creatinine 1.32 H Est GFR ( Amer) > 60 Est GFR (Non-Af Amer) 55 L Glucose 108 Calcium 9.1 05/11/18 05/11/18 05/11/18 09:35 09:35 09:35 Creatine Kinase 37 L CK-MB (CK-2) Troponin I 0.071 NT-Pro-B Natriuret Pep 6800 H 05/11/18 05/11/18 05/12/18 12:30 19:00 01:06 Creatine Kinase CK-MB (CK-2) Troponin I 0.067 0.064 0.050 NT-Pro-B Natriuret Pep 05/23/18 05/24/18 05/27/18 10:36 09:38 10:01 Creatine Kinase CK-MB (CK-2) Troponin I 0.060 NT-Pro-B Natriuret Pep 819 889 06/03/18 06/08/18 06/08/18 08:12 13:40 13:40 Creatine Kinase 39 L CK-MB (CK-2) 1.92 Troponin I 0.060 NT-Pro-B Natriuret Pep 1420 H 06/08/18 06/08/18 06/09/18 19:03 19:03 00:59 Creatine Kinase 36 L 34 L CK-MB (CK-2) 1.75 Troponin I 0.058 NT-Pro-B Natriuret Pep 06/09/18 06/09/18 06/09/18 00:59 08:04 08:04 Creatine Kinase 32 L CK-MB (CK-2) 1.58 1.79 Troponin I 0.063 0.064 NT-Pro-B Natriuret Pep 06/09/18 06/09/18 06/09/18 12:52 12:52 19:00 Creatine Kinase 46 L 31 L CK-MB (CK-2) 1.99 Troponin I 0.051 NT-Pro-B Natriuret Pep 06/09/18 06/25/18 19:00 07:35 Creatine Kinase CK-MB (CK-2) 1.80 Troponin I 0.072 0.054 NT-Pro-B Natriuret Pep Impressions: Thoracentesis Ultrasound 05/13/18 10:06 IMPRESSION: SUCCESSFUL THORACENTESIS USING ULTRASOUND GUIDANCE. Chest X-Ray 06/08/18 00:00 IMPRESSION: Cardiogenic pulmonary edema with bilateral pleural effusions. Assessment & Plan - Diagnosis (1) Acute and chronic respiratory failure with hypoxia Is this a current diagnosis for this admission?: Yes Plan: Secondary to CHF exacerbation. Continue BIPAP at night. (2) Acute on chronic systolic (congestive) heart failure Is this a current diagnosis for this admission?: Yes Plan: Combined systolic and diastolic biventricular failure. Continue Lasix 40 mg daily. Cardiology following. Echo shows an EF of 30-35%, grade 2 diastolic dysfunction and dilated left and right ventricular. Patient already has an AICD. Patient is not on UZMA inhibitor hence is not on optimal medical therapy. CHF medication regimen cannot be optimized as patient has had angioedema from captopril before. Both UZMA inhibitors and Entresto will be contraindicated to a history of ACEi-associated angioedema. Discussed with cardio and pulm. Recommendation for BIPAP at home/discharge for his biventricular heart failure and significant pulmonary hypertension. Continue Coreg. Aldactone discontinued as patient did have recurrence of hyperkalemia when it was resumed. 06/11/18: Creatinine trended up to 1.5. Decreased Lasix to 20 mg daily today. 06/13/18: Creatinine has improved down to 1.2. Will increase Lasix back to 40 mg daily as his Aldactone was also d/raghav due to hyperkalemia. 06/15/18: Creatinine trended up to 1.4 again after increasing Lasix back to 40 mg daily. Reduce down to home dose of 20 mg daily. 06/25: Creatinine at baseline. Continue Lasix 20 mg daily. (3) Pleural effusion Is this a current diagnosis for this admission?: Yes Plan: S/P right sided thoracentesis (750 cc) on 05/13/18. Pleural fluid analysis is consistent with transudative effusion likely related to patient's CHF. Chest x- ray after thoracentesis did show improvement in aeration of the right lower lung salazar. (4) CAD (coronary artery disease) Is this a current diagnosis for this admission?: Yes Plan: Stable. Continue aspirin, statin and beta steve. (5) Hyperkalemia Is this a current diagnosis for this admission?: Yes Plan: Resolved after discontinuing Aldactone. Potassium today trended up to 5.6. Will recheck another BMP tomorrow. Aldactone will be indefinitely discontinued as he has consistently developed recurrence of hyperkalemia with Aldactone. 06/23: He was given a dose of Patiromer. 06/25: Resolved. (6) DEANNA (acute kidney injury) Is this a current diagnosis for this admission?: Yes Plan: Improved but creatinine trended up again after increasing Lasix to 40 mg daily. Reduce back down to 20 mg Lasix daily. Repeat BMP tomorrow. Creatinine now at baseline of 1.3. - Time Time Spent with patient: 15-24 minutes
[2018-06-25] MEDS: ROPINIROLE HCL 0.25 MG TABLET PO SCH (21:19)
[2018-06-26] MEDS: INSULIN LISPRO 100 UNIT/ML 3 ML VIAL SUBCUT SCH ×4 (09:10→23:01)
[2018-06-26] MEDS: GABAPENTIN 100 MG CAPSULE PO SCH ×4 (09:15→21:26)
[2018-06-26] MEDS: ACETAMINOPHEN 325 MG TABLET PO SCH ×4 (09:15→21:26)
[2018-06-26] MEDS: FUROSEMIDE 20 MG TABLET PO SCH (09:15)
[2018-06-26] MEDS: CARVEDILOL 3.125 MG TABLET PO SCH ×2 (09:16→21:26)
[2018-06-26] MEDS: ASPIRIN 81 MG TABLET, CHEWABLE PO SCH (09:16)
[2018-06-26] MEDS: DIGOXIN 0.125 MG TABLET PO SCH (09:16)
[2018-06-26] MEDS: CYCLOSPORINE 0.05% OPH EMULSIO 0.4 ML DROPERETTE OU SCH (09:17)
[2018-06-26] MEDS: DOCUSATE SODIUM 100 MG CAPSULE PO SCH ×2 (09:17→18:17)
[2018-06-26] MEDS ORDERED: METOCLOPRAMIDE HCL ORAL SOLN 10 MG/10 ML UDCUP PO ONE (12:30)
[2018-06-26] MEDS ORDERED: MAG HYDROX/AL HYDROX/SIMETH SUSP 30 ML UDCUP PO ONE (12:30)
[2018-06-26] MEDS ORDERED: LIDOCAINE 2% VISCOUS SOLN 20 ML UDCUP PO ONE (12:30)
--- NOTE | 2018-06-26 13:12 | PDOC PROGRESS REPORT ---
Subjective Progress Note for:: 05/28/18 Subjective:: about the same Reason For Visit: CHF Physical Exam Vital Signs: Temp Pulse Resp BP Pulse Ox 97.9 F 94 20 106/65 98 06/24/18 12:05 06/24/18 12:05 06/24/18 12:05 06/24/18 12:05 06/24/18 12:05 Intake & Output 06/23/18 06/24/18 06/25/18 06:59 06:59 06:59 Intake Total 933 1492 Output Total 650 1340 Balance 283 152 Weight 86.6 kg General appearance: PRESENT: no acute distress, cooperative, disheveled, obese Head exam: PRESENT: atraumatic, normocephalic Eye exam: PRESENT: conjunctiva pale, EOMI. ABSENT: nystagmus Mouth exam: PRESENT: dry mucosa, neck supple, tongue midline Neck exam: ABSENT: carotid bruit, JVD, lymphadenopathy, thyromegaly, tracheal deviation, tracheostomy Respiratory exam: PRESENT: decreased breath sounds, prolonged expiratory phas, rales, rhonchi, unlabored. ABSENT: retraction, stridor, tachypnea Cardiovascular exam: PRESENT: irregular rhythm Pulses: PRESENT: normal radial pulses GI/Abdominal exam: PRESENT: soft. ABSENT: tenderness Extremities exam: PRESENT: pedal edema. ABSENT: calf tenderness, clubbing, joint swelling Musculoskeletal exam: ABSENT: deformity Neurological exam: PRESENT: awake Psychiatric exam: PRESENT: appropriate affect Skin exam: PRESENT: dry, warm Results Laboratory Results: 06/03/18 08:12 06/23/18 12:31 05/11/18 05/11/18 05/11/18 09:35 09:35 09:35 Creatine Kinase 37 L CK-MB (CK-2) Troponin I 0.071 NT-Pro-B Natriuret Pep 6800 H 05/11/18 05/11/18 05/12/18 12:30 19:00 01:06 Creatine Kinase CK-MB (CK-2) Troponin I 0.067 0.064 0.050 NT-Pro-B Natriuret Pep 05/23/18 05/24/18 05/27/18 10:36 09:38 10:01 Creatine Kinase CK-MB (CK-2) Troponin I 0.060 NT-Pro-B Natriuret Pep 819 889 06/03/18 06/08/18 06/08/18 08:12 13:40 13:40 Creatine Kinase 39 L CK-MB (CK-2) 1.92 Troponin I 0.060 NT-Pro-B Natriuret Pep 1420 H 06/08/18 06/08/18 06/09/18 19:03 19:03 00:59 Creatine Kinase 36 L 34 L CK-MB (CK-2) 1.75 Troponin I 0.058 NT-Pro-B Natriuret Pep 06/09/18 06/09/18 06/09/18 00:59 08:04 08:04 Creatine Kinase 32 L CK-MB (CK-2) 1.58 1.79 Troponin I 0.063 0.064 NT-Pro-B Natriuret Pep 06/09/18 06/09/18 06/09/18 12:52 12:52 19:00 Creatine Kinase 46 L 31 L CK-MB (CK-2) 1.99 Troponin I 0.051 NT-Pro-B Natriuret Pep 06/09/18 19:00 Creatine Kinase CK-MB (CK-2) 1.80 Troponin I 0.072 NT-Pro-B Natriuret Pep Impressions: Thoracentesis Ultrasound 05/13/18 10:06 IMPRESSION: SUCCESSFUL THORACENTESIS USING ULTRASOUND GUIDANCE. Chest X-Ray 06/08/18 00:00 IMPRESSION: Cardiogenic pulmonary edema with bilateral pleural effusions. Assessment & Plan - Diagnosis (1) Acute on chronic systolic (congestive) heart failure Is this a current diagnosis for this admission?: Yes Plan: as per cardiology (2) Pleural effusion Is this a current diagnosis for this admission?: Yes Plan: Thoracentesis (3) Acute respiratory failure with hypoxia and hypercapnia Is this a current diagnosis for this admission?: Yes Plan: BiPAP consider switching to AVAPS (4) Atrial fibrillation Qualifiers: Atrial fibrillation type: paroxysmal Qualified Code(s): I48.0 - Paroxysmal atrial fibrillation Is this a current diagnosis for this admission?: Yes Plan: As per cardiology ventricular response stable at this time (5) VIOLETA (obstructive sleep apnea) Is this a current diagnosis for this admission?: Yes Plan: BiPAP with supplemental O2 with chest BiPAP as well as CPAP as needed
--- NOTE | 2018-06-26 13:15 | PDOC PROGRESS REPORT ---
Subjective Progress Note for:: 05/29/18 Subjective:: Little better but confused Reason For Visit: CHF Physical Exam Vital Signs: Temp Pulse Resp BP Pulse Ox 97.9 F 94 20 106/65 98 06/24/18 12:05 06/24/18 12:05 06/24/18 12:05 06/24/18 12:05 06/24/18 12:05 Intake & Output 06/23/18 06/24/18 06/25/18 06:59 06:59 06:59 Intake Total 933 1492 Output Total 650 1340 Balance 283 152 Weight 86.6 kg General appearance: PRESENT: no acute distress, cooperative, disheveled, obese Head exam: PRESENT: atraumatic, normocephalic Eye exam: PRESENT: conjunctiva pale, EOMI. ABSENT: nystagmus Mouth exam: PRESENT: dry mucosa, neck supple, tongue midline Neck exam: ABSENT: carotid bruit, JVD, lymphadenopathy, thyromegaly, tracheal deviation, tracheostomy Respiratory exam: PRESENT: decreased breath sounds, prolonged expiratory phas, rales, rhonchi, unlabored. ABSENT: retraction, stridor Cardiovascular exam: PRESENT: irregular rhythm Pulses: PRESENT: normal radial pulses GI/Abdominal exam: PRESENT: soft. ABSENT: tenderness Extremities exam: PRESENT: pedal edema. ABSENT: calf tenderness, clubbing, joint swelling Musculoskeletal exam: ABSENT: deformity, dislocation Neurological exam: PRESENT: awake Psychiatric exam: PRESENT: agitated Focused psych exam: PRESENT: restlessness Skin exam: PRESENT: dry, warm Results Laboratory Results: 06/03/18 08:12 06/23/18 12:31 05/11/18 05/11/18 05/11/18 09:35 09:35 09:35 Creatine Kinase 37 L CK-MB (CK-2) Troponin I 0.071 NT-Pro-B Natriuret Pep 6800 H 05/11/18 05/11/18 05/12/18 12:30 19:00 01:06 Creatine Kinase CK-MB (CK-2) Troponin I 0.067 0.064 0.050 NT-Pro-B Natriuret Pep 05/23/18 05/24/18 05/27/18 10:36 09:38 10:01 Creatine Kinase CK-MB (CK-2) Troponin I 0.060 NT-Pro-B Natriuret Pep 819 889 06/03/18 06/08/18 06/08/18 08:12 13:40 13:40 Creatine Kinase 39 L CK-MB (CK-2) 1.92 Troponin I 0.060 NT-Pro-B Natriuret Pep 1420 H 06/08/18 06/08/18 06/09/18 19:03 19:03 00:59 Creatine Kinase 36 L 34 L CK-MB (CK-2) 1.75 Troponin I 0.058 NT-Pro-B Natriuret Pep 06/09/18 06/09/18 06/09/18 00:59 08:04 08:04 Creatine Kinase 32 L CK-MB (CK-2) 1.58 1.79 Troponin I 0.063 0.064 NT-Pro-B Natriuret Pep 06/09/18 06/09/18 06/09/18 12:52 12:52 19:00 Creatine Kinase 46 L 31 L CK-MB (CK-2) 1.99 Troponin I 0.051 NT-Pro-B Natriuret Pep 06/09/18 19:00 Creatine Kinase CK-MB (CK-2) 1.80 Troponin I 0.072 NT-Pro-B Natriuret Pep Impressions: Thoracentesis Ultrasound 05/13/18 10:06 IMPRESSION: SUCCESSFUL THORACENTESIS USING ULTRASOUND GUIDANCE. Chest X-Ray 06/08/18 00:00 IMPRESSION: Cardiogenic pulmonary edema with bilateral pleural effusions. Assessment & Plan - Diagnosis (1) Acute on chronic systolic (congestive) heart failure Is this a current diagnosis for this admission?: Yes Plan: as per cardiology (2) Pleural effusion Is this a current diagnosis for this admission?: Yes Plan: Stable at this time (3) Acute respiratory failure with hypoxia and hypercapnia Is this a current diagnosis for this admission?: Yes Plan: BiPAP consider switching to AVAPS (4) Atrial fibrillation Qualifiers: Atrial fibrillation type: paroxysmal Qualified Code(s): I48.0 - Paroxysmal atrial fibrillation Is this a current diagnosis for this admission?: Yes Plan: As per cardiology ventricular response stable at this time (5) VIOLETA (obstructive sleep apnea) Is this a current diagnosis for this admission?: Yes Plan: BiPAP with supplemental O2 with chest BiPAP as well as CPAP as needed
--- NOTE | 2018-06-26 13:17 | PDOC PROGRESS REPORT ---
Subjective Progress Note for:: 06/01/18 Subjective:: Little better but confused Reason For Visit: CHF Physical Exam Vital Signs: Temp Pulse Resp BP Pulse Ox 97.9 F 94 20 106/65 98 06/24/18 12:05 06/24/18 12:05 06/24/18 12:05 06/24/18 12:05 06/24/18 12:05 Intake & Output 06/23/18 06/24/18 06/25/18 06:59 06:59 06:59 Intake Total 933 1492 Output Total 650 1340 Balance 283 152 Weight 86.6 kg General appearance: PRESENT: no acute distress, disheveled, obese Head exam: PRESENT: atraumatic, normocephalic Eye exam: PRESENT: conjunctiva pale, EOMI. ABSENT: nystagmus Mouth exam: PRESENT: dry mucosa, neck supple, tongue midline Respiratory exam: PRESENT: decreased breath sounds, prolonged expiratory phas, rales, rhonchi, unlabored. ABSENT: retraction, stridor Cardiovascular exam: PRESENT: irregular rhythm Pulses: PRESENT: normal radial pulses GI/Abdominal exam: PRESENT: soft. ABSENT: tenderness Extremities exam: PRESENT: pedal edema. ABSENT: calf tenderness, clubbing, joint swelling Musculoskeletal exam: ABSENT: deformity, dislocation Neurological exam: PRESENT: awake Psychiatric exam: PRESENT: agitated Focused psych exam: PRESENT: restlessness Skin exam: PRESENT: dry, warm Results Laboratory Results: 06/03/18 08:12 06/23/18 12:31 05/11/18 05/11/18 05/11/18 09:35 09:35 09:35 Creatine Kinase 37 L CK-MB (CK-2) Troponin I 0.071 NT-Pro-B Natriuret Pep 6800 H 05/11/18 05/11/18 05/12/18 12:30 19:00 01:06 Creatine Kinase CK-MB (CK-2) Troponin I 0.067 0.064 0.050 NT-Pro-B Natriuret Pep 05/23/18 05/24/18 05/27/18 10:36 09:38 10:01 Creatine Kinase CK-MB (CK-2) Troponin I 0.060 NT-Pro-B Natriuret Pep 819 889 06/03/18 06/08/18 06/08/18 08:12 13:40 13:40 Creatine Kinase 39 L CK-MB (CK-2) 1.92 Troponin I 0.060 NT-Pro-B Natriuret Pep 1420 H 06/08/18 06/08/18 06/09/18 19:03 19:03 00:59 Creatine Kinase 36 L 34 L CK-MB (CK-2) 1.75 Troponin I 0.058 NT-Pro-B Natriuret Pep 06/09/18 06/09/18 06/09/18 00:59 08:04 08:04 Creatine Kinase 32 L CK-MB (CK-2) 1.58 1.79 Troponin I 0.063 0.064 NT-Pro-B Natriuret Pep 06/09/18 06/09/18 06/09/18 12:52 12:52 19:00 Creatine Kinase 46 L 31 L CK-MB (CK-2) 1.99 Troponin I 0.051 NT-Pro-B Natriuret Pep 06/09/18 19:00 Creatine Kinase CK-MB (CK-2) 1.80 Troponin I 0.072 NT-Pro-B Natriuret Pep Impressions: Thoracentesis Ultrasound 05/13/18 10:06 IMPRESSION: SUCCESSFUL THORACENTESIS USING ULTRASOUND GUIDANCE. Chest X-Ray 06/08/18 00:00 IMPRESSION: Cardiogenic pulmonary edema with bilateral pleural effusions. Assessment & Plan - Diagnosis (1) Acute on chronic systolic (congestive) heart failure Is this a current diagnosis for this admission?: Yes Plan: as per cardiology (2) Pleural effusion Is this a current diagnosis for this admission?: Yes Plan: Stable at this time (3) Acute respiratory failure with hypoxia and hypercapnia Is this a current diagnosis for this admission?: Yes Plan: Tolerating AVAPS (4) Atrial fibrillation Qualifiers: Atrial fibrillation type: paroxysmal Qualified Code(s): I48.0 - Paroxysmal atrial fibrillation Is this a current diagnosis for this admission?: Yes Plan: As per cardiology ventricular response stable at this time (5) VIOLETA (obstructive sleep apnea) Is this a current diagnosis for this admission?: Yes Plan: BiPAP with supplemental O2 with chest BiPAP as well as CPAP as needed
--- NOTE | 2018-06-26 13:19 | PDOC PROGRESS REPORT ---
Subjective Progress Note for:: 06/02/18 Subjective:: confused Reason For Visit: CHF Physical Exam Vital Signs: Temp Pulse Resp BP Pulse Ox 97.9 F 94 20 106/65 98 06/24/18 12:05 06/24/18 12:05 06/24/18 12:05 06/24/18 12:05 06/24/18 12:05 Intake & Output 06/23/18 06/24/18 06/25/18 06:59 06:59 06:59 Intake Total 933 1492 Output Total 650 1340 Balance 283 152 Weight 86.6 kg General appearance: PRESENT: no acute distress, disheveled, obese. ABSENT: coop erative Head exam: PRESENT: atraumatic, normocephalic Eye exam: PRESENT: conjunctiva pale, EOMI. ABSENT: nystagmus Mouth exam: PRESENT: dry mucosa, neck supple, tongue midline Neck exam: ABSENT: carotid bruit, JVD, lymphadenopathy, thyromegaly, tracheal deviation, tracheostomy Respiratory exam: PRESENT: decreased breath sounds, prolonged expiratory phas, rhonchi, unlabored Cardiovascular exam: PRESENT: irregular rhythm Pulses: PRESENT: normal radial pulses GI/Abdominal exam: PRESENT: soft. ABSENT: tenderness Gentrourinary exam: PRESENT: indwelling catheter Extremities exam: PRESENT: pedal edema. ABSENT: calf tenderness, clubbing, joint swelling Musculoskeletal exam: ABSENT: deformity, dislocation Neurological exam: PRESENT: altered, awake Psychiatric exam: PRESENT: agitated Focused psych exam: PRESENT: restlessness Skin exam: PRESENT: dry, warm Results Laboratory Results: 06/03/18 08:12 06/23/18 12:31 05/11/18 05/11/18 05/11/18 09:35 09:35 09:35 Creatine Kinase 37 L CK-MB (CK-2) Troponin I 0.071 NT-Pro-B Natriuret Pep 6800 H 05/11/18 05/11/18 05/12/18 12:30 19:00 01:06 Creatine Kinase CK-MB (CK-2) Troponin I 0.067 0.064 0.050 NT-Pro-B Natriuret Pep 05/23/18 05/24/18 05/27/18 10:36 09:38 10:01 Creatine Kinase CK-MB (CK-2) Troponin I 0.060 NT-Pro-B Natriuret Pep 819 889 06/03/18 06/08/18 06/08/18 08:12 13:40 13:40 Creatine Kinase 39 L CK-MB (CK-2) 1.92 Troponin I 0.060 NT-Pro-B Natriuret Pep 1420 H 06/08/18 06/08/18 06/09/18 19:03 19:03 00:59 Creatine Kinase 36 L 34 L CK-MB (CK-2) 1.75 Troponin I 0.058 NT-Pro-B Natriuret Pep 06/09/18 06/09/18 06/09/18 00:59 08:04 08:04 Creatine Kinase 32 L CK-MB (CK-2) 1.58 1.79 Troponin I 0.063 0.064 NT-Pro-B Natriuret Pep 06/09/18 06/09/18 06/09/18 12:52 12:52 19:00 Creatine Kinase 46 L 31 L CK-MB (CK-2) 1.99 Troponin I 0.051 NT-Pro-B Natriuret Pep 06/09/18 19:00 Creatine Kinase CK-MB (CK-2) 1.80 Troponin I 0.072 NT-Pro-B Natriuret Pep Impressions: Thoracentesis Ultrasound 05/13/18 10:06 IMPRESSION: SUCCESSFUL THORACENTESIS USING ULTRASOUND GUIDANCE. Chest X-Ray 06/08/18 00:00 IMPRESSION: Cardiogenic pulmonary edema with bilateral pleural effusions. Assessment & Plan - Diagnosis (1) Acute on chronic systolic (congestive) heart failure Is this a current diagnosis for this admission?: Yes Plan: as per cardiology (2) Pleural effusion Is this a current diagnosis for this admission?: Yes Plan: Stable at this time (3) Acute respiratory failure with hypoxia and hypercapnia Is this a current diagnosis for this admission?: Yes Plan: Tolerating AVAPS (4) Atrial fibrillation Qualifiers: Atrial fibrillation type: paroxysmal Qualified Code(s): I48.0 - Paroxysmal atrial fibrillation Is this a current diagnosis for this admission?: Yes Plan: As per cardiology ventricular response stable at this time (5) VIOLETA (obstructive sleep apnea) Is this a current diagnosis for this admission?: Yes Plan: BiPAP with supplemental O2 with chest BiPAP as well as CPAP as needed
--- NOTE | 2018-06-26 13:22 | PDOC PROGRESS REPORT ---
Subjective Progress Note for:: 06/03/18 Subjective:: confused Reason For Visit: CHF Physical Exam Vital Signs: Temp Pulse Resp BP Pulse Ox 97.9 F 94 20 106/65 98 06/24/18 12:05 06/24/18 12:05 06/24/18 12:05 06/24/18 12:05 06/24/18 12:05 Intake & Output 06/23/18 06/24/18 06/25/18 06:59 06:59 06:59 Intake Total 933 1492 Output Total 650 1340 Balance 283 152 Weight 86.6 kg General appearance: PRESENT: no acute distress, disheveled, obese Head exam: PRESENT: atraumatic, normocephalic Eye exam: PRESENT: conjunctiva pale, EOMI. ABSENT: nystagmus Mouth exam: PRESENT: dry mucosa, neck supple, tongue midline Neck exam: ABSENT: carotid bruit, JVD, lymphadenopathy, thyromegaly, tracheal deviation, tracheostomy Respiratory exam: PRESENT: decreased breath sounds, prolonged expiratory phas, rales, rhonchi. ABSENT: retraction Cardiovascular exam: PRESENT: irregular rhythm Pulses: PRESENT: normal radial pulses GI/Abdominal exam: PRESENT: soft. ABSENT: tenderness Extremities exam: PRESENT: pedal edema. ABSENT: calf tenderness, clubbing, joint swelling Musculoskeletal exam: ABSENT: deformity, dislocation Neurological exam: PRESENT: awake Psychiatric exam: PRESENT: agitated Focused psych exam: PRESENT: restlessness Skin exam: PRESENT: dry, warm Results Laboratory Results: 06/03/18 08:12 06/23/18 12:31 05/11/18 05/11/18 05/11/18 09:35 09:35 09:35 Creatine Kinase 37 L CK-MB (CK-2) Troponin I 0.071 NT-Pro-B Natriuret Pep 6800 H 05/11/18 05/11/18 05/12/18 12:30 19:00 01:06 Creatine Kinase CK-MB (CK-2) Troponin I 0.067 0.064 0.050 NT-Pro-B Natriuret Pep 05/23/18 05/24/18 05/27/18 10:36 09:38 10:01 Creatine Kinase CK-MB (CK-2) Troponin I 0.060 NT-Pro-B Natriuret Pep 819 889 0106/08/18 06/08/18 08:12 13:40 13:40 Creatine Kinase 39 L CK-MB (CK-2) 1.92 Troponin I 0.060 NT-Pro-B Natriuret Pep 1420 H 06/08/18 06/08/18 06/09/18 19:03 19:03 00:59 Creatine Kinase 36 L 34 L CK-MB (CK-2) 1.75 Troponin I 0.058 NT-Pro-B Natriuret Pep 06/09/18 06/09/18 06/09/18 00:59 08:04 08:04 Creatine Kinase 32 L CK-MB (CK-2) 1.58 1.79 Troponin I 0.063 0.064 NT-Pro-B Natriuret Pep 06/09/18 06/09/18 06/09/18 12:52 12:52 19:00 Creatine Kinase 46 L 31 L CK-MB (CK-2) 1.99 Troponin I 0.051 NT-Pro-B Natriuret Pep 06/09/18 19:00 Creatine Kinase CK-MB (CK-2) 1.80 Troponin I 0.072 NT-Pro-B Natriuret Pep Impressions: Thoracentesis Ultrasound 05/13/18 10:06 IMPRESSION: SUCCESSFUL THORACENTESIS USING ULTRASOUND GUIDANCE. Chest X-Ray 06/08/18 00:00 IMPRESSION: Cardiogenic pulmonary edema with bilateral pleural effusions. Assessment & Plan - Diagnosis (1) Acute on chronic systolic (congestive) heart failure Is this a current diagnosis for this admission?: Yes Plan: as per cardiology (2) Pleural effusion Is this a current diagnosis for this admission?: Yes Plan: Stable at this time (3) Acute respiratory failure with hypoxia and hypercapnia Is this a current diagnosis for this admission?: Yes Plan: Tolerating AVAPS (4) Atrial fibrillation Qualifiers: Atrial fibrillation type: paroxysmal Qualified Code(s): I48.0 - Paroxysmal atrial fibrillation Is this a current diagnosis for this admission?: Yes Plan: As per cardiology ventricular response stable at this time (5) VIOLETA (obstructive sleep apnea) Is this a current diagnosis for this admission?: Yes
--- NOTE | 2018-06-26 13:24 | PDOC PROGRESS REPORT ---
Subjective Progress Note for:: 06/04/18 Subjective:: confused Reason For Visit: CHF Physical Exam Vital Signs: Temp Pulse Resp BP Pulse Ox 97.9 F 94 20 106/65 98 06/24/18 12:05 06/24/18 12:05 06/24/18 12:05 06/24/18 12:05 06/24/18 12:05 Intake & Output 06/23/18 06/24/18 06/25/18 06:59 06:59 06:59 Intake Total 933 1492 Output Total 650 1340 Balance 283 152 Weight 86.6 kg General appearance: PRESENT: no acute distress, disheveled, obese Head exam: PRESENT: atraumatic, normocephalic Eye exam: PRESENT: conjunctiva pale, EOMI Mouth exam: PRESENT: dry mucosa, neck supple, tongue midline Neck exam: ABSENT: carotid bruit, JVD, lymphadenopathy, thyromegaly, tracheal deviation, tracheostomy Respiratory exam: PRESENT: decreased breath sounds, prolonged expiratory phas, rhonchi, unlabored. ABSENT: retraction Cardiovascular exam: PRESENT: irregular rhythm Pulses: PRESENT: normal radial pulses GI/Abdominal exam: PRESENT: soft. ABSENT: tenderness Extremities exam: PRESENT: pedal edema. ABSENT: calf tenderness, clubbing, full ROM Musculoskeletal exam: ABSENT: deformity, dislocation Neurological exam: PRESENT: awake Psychiatric exam: PRESENT: agitated Focused psych exam: PRESENT: restlessness Skin exam: PRESENT: dry, warm Results Laboratory Results: 06/03/18 08:12 06/23/18 12:31 05/11/18 05/11/18 05/11/18 09:35 09:35 09:35 Creatine Kinase 37 L CK-MB (CK-2) Troponin I 0.071 NT-Pro-B Natriuret Pep 6800 H 05/11/18 05/11/18 05/12/18 12:30 19:00 01:06 Creatine Kinase CK-MB (CK-2) Troponin I 0.067 0.064 0.050 NT-Pro-B Natriuret Pep 05/23/18 05/24/18 05/27/18 10:36 09:38 10:01 Creatine Kinase CK-MB (CK-2) Troponin I 0.060 NT-Pro-B Natriuret Pep 819 889 06/03/18 06/08/18 06/08/18 08:12 13:40 13:40 Creatine Kinase 39 L CK-MB (CK-2) 1.92 Troponin I 0.060 NT-Pro-B Natriuret Pep 1420 H 06/08/18 06/08/18 06/09/18 19:03 19:03 00:59 Creatine Kinase 36 L 34 L CK-MB (CK-2) 1.75 Troponin I 0.058 NT-Pro-B Natriuret Pep 06/09/18 06/09/18 06/09/18 00:59 08:04 08:04 Creatine Kinase 32 L CK-MB (CK-2) 1.58 1.79 Troponin I 0.063 0.064 NT-Pro-B Natriuret Pep 06/09/18 06/09/18 06/09/18 12:52 12:52 19:00 Creatine Kinase 46 L 31 L CK-MB (CK-2) 1.99 Troponin I 0.051 NT-Pro-B Natriuret Pep 06/09/18 19:00 Creatine Kinase CK-MB (CK-2) 1.80 Troponin I 0.072 NT-Pro-B Natriuret Pep Impressions: Thoracentesis Ultrasound 05/13/18 10:06 IMPRESSION: SUCCESSFUL THORACENTESIS USING ULTRASOUND GUIDANCE. Chest X-Ray 06/08/18 00:00 IMPRESSION: Cardiogenic pulmonary edema with bilateral pleural effusions. Assessment & Plan - Diagnosis (1) Acute on chronic systolic (congestive) heart failure Is this a current diagnosis for this admission?: Yes Plan: as per cardiology (2) Pleural effusion Is this a current diagnosis for this admission?: Yes Plan: Stable at this time (3) Acute respiratory failure with hypoxia and hypercapnia Is this a current diagnosis for this admission?: Yes Plan: Tolerating AVAPS (4) Atrial fibrillation Qualifiers: Atrial fibrillation type: paroxysmal Qualified Code(s): I48.0 - Paroxysmal atrial fibrillation Is this a current diagnosis for this admission?: Yes Plan: As per cardiology ventricular response stable at this time (5) VIOLETA (obstructive sleep apnea) Is this a current diagnosis for this admission?: Yes
--- NOTE | 2018-06-26 13:26 | PDOC PROGRESS REPORT ---
Subjective Progress Note for:: 06/05/18 Subjective:: Unchanged Reason For Visit: CHF Physical Exam Vital Signs: Temp Pulse Resp BP Pulse Ox 97.9 F 94 20 106/65 98 06/24/18 12:05 06/24/18 12:05 06/24/18 12:05 06/24/18 12:05 06/24/18 12:05 Intake & Output 06/23/18 06/24/18 06/25/18 06:59 06:59 06:59 Intake Total 933 1492 Output Total 650 1340 Balance 283 152 Weight 86.6 kg General appearance: PRESENT: no acute distress, disheveled, obese Head exam: PRESENT: atraumatic, normocephalic Eye exam: PRESENT: conjunctiva pale, EOMI Mouth exam: PRESENT: dry mucosa, neck supple, tongue midline Neck exam: ABSENT: carotid bruit, JVD, lymphadenopathy, thyromegaly, tracheal deviation, tracheostomy Respiratory exam: PRESENT: decreased breath sounds, prolonged expiratory phas, rhonchi, tachypnea, unlabored Cardiovascular exam: PRESENT: irregular rhythm Pulses: PRESENT: normal radial pulses GI/Abdominal exam: PRESENT: soft. ABSENT: tenderness Gentrourinary exam: PRESENT: indwelling catheter Extremities exam: PRESENT: pedal edema. ABSENT: calf tenderness, clubbing, joint swelling Musculoskeletal exam: ABSENT: deformity, dislocation Neurological exam: PRESENT: awake Psychiatric exam: PRESENT: agitated Focused psych exam: PRESENT: restlessness Skin exam: PRESENT: dry, warm Results Laboratory Results: 06/03/18 08:12 06/23/18 12:31 05/11/18 05/11/18 05/11/18 09:35 09:35 09:35 Creatine Kinase 37 L CK-MB (CK-2) Troponin I 0.071 NT-Pro-B Natriuret Pep 6800 H 05/11/18 05/11/18 05/12/18 12:30 19:00 01:06 Creatine Kinase CK-MB (CK-2) Troponin I 0.067 0.064 0.050 NT-Pro-B Natriuret Pep 05/23/18 05/24/18 05/27/18 10:36 09:38 10:01 Creatine Kinase CK-MB (CK-2) Troponin I 0.060 NT-Pro-B Natriuret Pep 819 889 06/03/18 06/08/18 06/08/18 08:12 13:40 13:40 Creatine Kinase 39 L CK-MB (CK-2) 1.92 Troponin I 0.060 NT-Pro-B Natriuret Pep 1420 H 06/08/18 06/08/18 06/09/18 19:03 19:03 00:59 Creatine Kinase 36 L 34 L CK-MB (CK-2) 1.75 Troponin I 0.058 NT-Pro-B Natriuret Pep 06/09/18 06/09/18 06/09/18 00:59 08:04 08:04 Creatine Kinase 32 L CK-MB (CK-2) 1.58 1.79 Troponin I 0.063 0.064 NT-Pro-B Natriuret Pep 06/09/18 06/09/18 06/09/18 12:52 12:52 19:00 Creatine Kinase 46 L 31 L CK-MB (CK-2) 1.99 Troponin I 0.051 NT-Pro-B Natriuret Pep 06/09/18 19:00 Creatine Kinase CK-MB (CK-2) 1.80 Troponin I 0.072 NT-Pro-B Natriuret Pep Impressions: Thoracentesis Ultrasound 05/13/18 10:06 IMPRESSION: SUCCESSFUL THORACENTESIS USING ULTRASOUND GUIDANCE. Chest X-Ray 06/08/18 00:00 IMPRESSION: Cardiogenic pulmonary edema with bilateral pleural effusions. Assessment & Plan - Diagnosis (1) Acute on chronic systolic (congestive) heart failure Is this a current diagnosis for this admission?: Yes Plan: as per cardiology (2) Pleural effusion Is this a current diagnosis for this admission?: Yes Plan: Stable at this time (3) Acute respiratory failure with hypoxia and hypercapnia Is this a current diagnosis for this admission?: Yes Plan: Tolerating AVAPS (4) Atrial fibrillation Qualifiers: Atrial fibrillation type: paroxysmal Qualified Code(s): I48.0 - Paroxysmal atrial fibrillation Is this a current diagnosis for this admission?: Yes Plan: As per cardiology ventricular response stable at this time (5) VIOLETA (obstructive sleep apnea) Is this a current diagnosis for this admission?: Yes Plan: BiPAP with supplemental O2 with chest BiPAP as well as CPAP as needed
--- NOTE | 2018-06-26 13:28 | PDOC PROGRESS REPORT ---
Subjective Progress Note for:: 06/08/18 Subjective:: Unchanged Reason For Visit: CHF Physical Exam Vital Signs: Temp Pulse Resp BP Pulse Ox 97.9 F 94 20 106/65 98 06/24/18 12:05 06/24/18 12:05 06/24/18 12:05 06/24/18 12:05 06/24/18 12:05 Intake & Output 06/23/18 06/24/18 06/25/18 06:59 06:59 06:59 Intake Total 933 1492 Output Total 650 1340 Balance 283 152 Weight 86.6 kg General appearance: PRESENT: no acute distress, disheveled, obese Head exam: PRESENT: atraumatic, normocephalic Eye exam: PRESENT: conjunctiva pale, EOMI Mouth exam: PRESENT: dry mucosa, neck supple, tongue midline Neck exam: ABSENT: carotid bruit, JVD, lymphadenopathy, thyromegaly, tracheal deviation, tracheostomy Respiratory exam: PRESENT: decreased breath sounds, prolonged expiratory phas, rales, rhonchi, unlabored. ABSENT: retraction, stridor, tachypnea Cardiovascular exam: PRESENT: irregular rhythm Pulses: PRESENT: normal radial pulses GI/Abdominal exam: PRESENT: soft. ABSENT: tenderness Extremities exam: PRESENT: pedal edema. ABSENT: calf tenderness, clubbing, joint swelling Musculoskeletal exam: ABSENT: deformity, dislocation Neurological exam: PRESENT: awake Psychiatric exam: PRESENT: agitated Focused psych exam: PRESENT: restlessness Skin exam: PRESENT: dry, warm Results Laboratory Results: 06/03/18 08:12 06/23/18 12:31 05/11/18 05/11/18 05/11/18 09:35 09:35 09:35 Creatine Kinase 37 L CK-MB (CK-2) Troponin I 0.071 NT-Pro-B Natriuret Pep 6800 H 05/11/18 05/11/18 05/12/18 12:30 19:00 01:06 Creatine Kinase CK-MB (CK-2) Troponin I 0.067 0.064 0.050 NT-Pro-B Natriuret Pep 05/23/18 05/24/18 05/27/18 10:36 09:38 10:01 Creatine Kinase CK-MB (CK-2) Troponin I 0.060 NT-Pro-B Natriuret Pep 819 889 06/03/18 06/08/18 06/08/18 08:12 13:40 13:40 Creatine Kinase 39 L CK-MB (CK-2) 1.92 Troponin I 0.060 NT-Pro-B Natriuret Pep 1420 H 06/08/18 06/08/18 06/09/18 19:03 19:03 00:59 Creatine Kinase 36 L 34 L CK-MB (CK-2) 1.75 Troponin I 0.058 NT-Pro-B Natriuret Pep 06/09/18 06/09/18 06/09/18 00:59 08:04 08:04 Creatine Kinase 32 L CK-MB (CK-2) 1.58 1.79 Troponin I 0.063 0.064 NT-Pro-B Natriuret Pep 06/09/18 06/09/18 06/09/18 12:52 12:52 19:00 Creatine Kinase 46 L 31 L CK-MB (CK-2) 1.99 Troponin I 0.051 NT-Pro-B Natriuret Pep 06/09/18 19:00 Creatine Kinase CK-MB (CK-2) 1.80 Troponin I 0.072 NT-Pro-B Natriuret Pep Impressions: Thoracentesis Ultrasound 05/13/18 10:06 IMPRESSION: SUCCESSFUL THORACENTESIS USING ULTRASOUND GUIDANCE. Chest X-Ray 06/08/18 00:00 IMPRESSION: Cardiogenic pulmonary edema with bilateral pleural effusions. Assessment & Plan - Diagnosis (1) Acute on chronic systolic (congestive) heart failure Is this a current diagnosis for this admission?: Yes Plan: as per cardiology (2) Pleural effusion Is this a current diagnosis for this admission?: Yes Plan: Stable at this time (3) Acute respiratory failure with hypoxia and hypercapnia Is this a current diagnosis for this admission?: Yes Plan: Tolerating AVAPS (4) Atrial fibrillation Qualifiers: Atrial fibrillation type: paroxysmal Qualified Code(s): I48.0 - Paroxysmal atrial fibrillation Is this a current diagnosis for this admission?: Yes Plan: As per cardiology ventricular response stable at this time (5) VIOLETA (obstructive sleep apnea) Is this a current diagnosis for this admission?: Yes Plan: BiPAP with supplemental O2 with chest BiPAP as well as CPAP as needed
--- NOTE | 2018-06-26 13:30 | PDOC PROGRESS REPORT ---
Subjective Progress Note for:: 06/09/18 Subjective:: Unchanged Reason For Visit: CHF Physical Exam Vital Signs: Temp Pulse Resp BP Pulse Ox 97.9 F 94 20 106/65 98 06/24/18 12:05 06/24/18 12:05 06/24/18 12:05 06/24/18 12:05 06/24/18 12:05 Intake & Output 06/23/18 06/24/18 06/25/18 06:59 06:59 06:59 Intake Total 933 1492 Output Total 650 1340 Balance 283 152 Weight 86.6 kg General appearance: PRESENT: no acute distress, disheveled, obese. 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 ABSENT: nystagmus Mouth exam: PRESENT: dry mucosa, neck supple, tongue midline Neck exam: ABSENT: carotid bruit, JVD, lymphadenopathy, thyromegaly, tracheal deviation, tracheostomy Respiratory exam: PRESENT: decreased breath sounds, prolonged expiratory phas, rhonchi, unlabored. ABSENT: retraction, stridor Cardiovascular exam: PRESENT: irregular rhythm Pulses: PRESENT: normal radial pulses GI/Abdominal exam: PRESENT: soft. ABSENT: tenderness Extremities exam: PRESENT: pedal edema. ABSENT: calf tenderness, clubbing, joint swelling Musculoskeletal exam: ABSENT: deformity, dislocation Neurological exam: PRESENT: awake Psychiatric exam: PRESENT: agitated Focused psych exam: PRESENT: restlessness Skin exam: PRESENT: dry, warm Results Laboratory Results: 06/03/18 08:12 06/23/18 12:31 05/11/18 05/11/18 05/11/18 09:35 09:35 09:35 Creatine Kinase 37 L CK-MB (CK-2) Troponin I 0.071 NT-Pro-B Natriuret Pep 6800 H 05/11/18 05/11/18 05/12/18 12:30 19:00 01:06 Creatine Kinase CK-MB (CK-2) Troponin I 0.067 0.064 0.050 NT-Pro-B Natriuret Pep 05/23/18 05/24/18 05/27/18 10:36 09:38 10:01 Creatine Kinase CK-MB (CK-2) Troponin I 0.060 NT-Pro-B Natriuret Pep 819 889 06/03/18 06/08/18 06/08/18 08:12 13:40 13:40 Creatine Kinase 39 L CK-MB (CK-2) 1.92 Troponin I 0.060 NT-Pro-B Natriuret Pep 1420 H 06/08/18 06/08/18 06/09/18 19:03 19:03 00:59 Creatine Kinase 36 L 34 L CK-MB (CK-2) 1.75 Troponin I 0.058 NT-Pro-B Natriuret Pep 06/09/18 06/09/18 06/09/18 00:59 08:04 08:04 Creatine Kinase 32 L CK-MB (CK-2) 1.58 1.79 Troponin I 0.063 0.064 NT-Pro-B Natriuret Pep 06/09/18 06/09/18 06/09/18 12:52 12:52 19:00 Creatine Kinase 46 L 31 L CK-MB (CK-2) 1.99 Troponin I 0.051 NT-Pro-B Natriuret Pep 06/09/18 19:00 Creatine Kinase CK-MB (CK-2) 1.80 Troponin I 0.072 NT-Pro-B Natriuret Pep Impressions: Thoracentesis Ultrasound 05/13/18 10:06 IMPRESSION: SUCCESSFUL THORACENTESIS USING ULTRASOUND GUIDANCE. Chest X-Ray 06/08/18 00:00 IMPRESSION: Cardiogenic pulmonary edema with bilateral pleural effusions. Assessment & Plan - Diagnosis (1) Acute on chronic systolic (congestive) heart failure Is this a current diagnosis for this admission?: Yes Plan: as per cardiology (2) Pleural effusion Is this a current diagnosis for this admission?: Yes Plan: Stable at this time (3) Acute respiratory failure with hypoxia and hypercapnia Is this a current diagnosis for this admission?: Yes Plan: Tolerating AVAPS (4) Atrial fibrillation Qualifiers: Atrial fibrillation type: paroxysmal Qualified Code(s): I48.0 - Paroxysmal atrial fibrillation Is this a current diagnosis for this admission?: Yes Plan: As per cardiology ventricular response stable at this time (5) VIOLETA (obstructive sleep apnea) Is this a current diagnosis for this admission?: Yes Plan: BiPAP with supplemental O2 with chest BiPAP as well as CPAP as needed
--- NOTE | 2018-06-26 13:31 | PDOC PROGRESS REPORT ---
Subjective Progress Note for:: 06/10/18 Subjective:: Unchanged Reason For Visit: CHF Physical Exam Vital Signs: Temp Pulse Resp BP Pulse Ox 97.9 F 94 20 106/65 98 06/24/18 12:05 06/24/18 12:05 06/24/18 12:05 06/24/18 12:05 06/24/18 12:05 Intake & Output 06/23/18 06/24/18 06/25/18 06:59 06:59 06:59 Intake Total 933 1492 Output Total 650 1340 Balance 283 152 Weight 86.6 kg General appearance: PRESENT: no acute distress, disheveled, obese Head exam: PRESENT: atraumatic, normocephalic Eye exam: PRESENT: conjunctiva pale, EOMI Mouth exam: PRESENT: dry mucosa, neck supple, tongue midline Neck exam: ABSENT: carotid bruit, JVD, lymphadenopathy, thyromegaly, tracheal deviation, tracheostomy Respiratory exam: PRESENT: decreased breath sounds, prolonged expiratory phas, rales, rhonchi, unlabored. ABSENT: retraction, stridor Cardiovascular exam: PRESENT: irregular rhythm Pulses: PRESENT: normal radial pulses GI/Abdominal exam: ABSENT: soft Extremities exam: PRESENT: pedal edema. ABSENT: calf tenderness, clubbing, joint swelling Musculoskeletal exam: ABSENT: deformity, dislocation Neurological exam: PRESENT: awake Psychiatric exam: PRESENT: agitated Focused psych exam: PRESENT: restlessness Skin exam: PRESENT: dry, warm Results Laboratory Results: 06/03/18 08:12 06/23/18 12:31 05/11/18 05/11/18 05/11/18 09:35 09:35 09:35 Creatine Kinase 37 L CK-MB (CK-2) Troponin I 0.071 NT-Pro-B Natriuret Pep 6800 H 05/11/18 05/11/18 05/12/18 12:30 19:00 01:06 Creatine Kinase CK-MB (CK-2) Troponin I 0.067 0.064 0.050 NT-Pro-B Natriuret Pep 05/23/18 05/24/18 05/27/18 10:36 09:38 10:01 Creatine Kinase CK-MB (CK-2) Troponin I 0.060 NT-Pro-B Natriuret Pep 819 889 06/03/18 06/08/1819 08:12 13:40 13:40 Creatine Kinase 39 L CK-MB (CK-2) 1.92 Troponin I 0.060 NT-Pro-B Natriuret Pep 1420 H 06/08/18 06/08/18 06/09/18 19:03 19:03 00:59 Creatine Kinase 36 L 34 L CK-MB (CK-2) 1.75 Troponin I 0.058 NT-Pro-B Natriuret Pep 06/09/18 06/09/18 06/09/18 00:59 08:04 08:04 Creatine Kinase 32 L CK-MB (CK-2) 1.58 1.79 Troponin I 0.063 0.064 NT-Pro-B Natriuret Pep 06/09/18 06/09/18 06/09/18 12:52 12:52 19:00 Creatine Kinase 46 L 31 L CK-MB (CK-2) 1.99 Troponin I 0.051 NT-Pro-B Natriuret Pep 06/09/18 19:00 Creatine Kinase CK-MB (CK-2) 1.80 Troponin I 0.072 NT-Pro-B Natriuret Pep Impressions: Thoracentesis Ultrasound 05/13/18 10:06 IMPRESSION: SUCCESSFUL THORACENTESIS USING ULTRASOUND GUIDANCE. Chest X-Ray 06/08/18 00:00 IMPRESSION: Cardiogenic pulmonary edema with bilateral pleural effusions. Assessment & Plan - Diagnosis (1) Acute on chronic systolic (congestive) heart failure Is this a current diagnosis for this admission?: Yes Plan: as per cardiology (2) Pleural effusion Is this a current diagnosis for this admission?: Yes Plan: Stable at this time (3) Acute respiratory failure with hypoxia and hypercapnia Is this a current diagnosis for this admission?: Yes Plan: Tolerating AVAPS (4) Atrial fibrillation Qualifiers: Atrial fibrillation type: paroxysmal Qualified Code(s): I48.0 - Paroxysmal atrial fibrillation Is this a current diagnosis for this admission?: Yes Plan: As per cardiology ventricular response stable at this time (5) VIOLETA (obstructive sleep apnea) Is this a current diagnosis for this admission?: Yes Plan: BiPAP with supplemental O2 with chest BiPAP as well as CPAP as needed
--- NOTE | 2018-06-26 13:33 | PDOC PROGRESS REPORT ---
Subjective Progress Note for:: 06/11/18 Subjective:: Unchanged Reason For Visit: CHF Physical Exam Vital Signs: Temp Pulse Resp BP Pulse Ox 97.9 F 94 20 106/65 98 06/24/18 12:05 06/24/18 12:05 06/24/18 12:05 06/24/18 12:05 06/24/18 12:05 Intake & Output 06/23/18 06/24/18 06/25/18 06:59 06:59 06:59 Intake Total 933 1492 Output Total 650 1340 Balance 283 152 Weight 86.6 kg General appearance: PRESENT: no acute distress, disheveled, obese Head exam: PRESENT: atraumatic, normocephalic Eye exam: PRESENT: conjunctiva pale, EOMI Mouth exam: PRESENT: dry mucosa, neck supple, tongue midline Neck exam: ABSENT: carotid bruit, JVD, lymphadenopathy, thyromegaly, tracheal deviation, tracheostomy Respiratory exam: PRESENT: decreased breath sounds, prolonged expiratory phas, rhonchi, unlabored. ABSENT: retraction, stridor Cardiovascular exam: PRESENT: irregular rhythm Pulses: PRESENT: normal radial pulses GI/Abdominal exam: PRESENT: soft. ABSENT: tenderness Extremities exam: PRESENT: pedal edema. ABSENT: calf tenderness, clubbing, joint swelling Musculoskeletal exam: ABSENT: deformity, dislocation Neurological exam: PRESENT: awake Psychiatric exam: PRESENT: agitated Focused psych exam: PRESENT: restlessness Skin exam: PRESENT: dry, warm Results Laboratory Results: 06/03/18 08:12 06/23/18 12:31 05/11/18 05/11/18 05/11/18 09:35 09:35 09:35 Creatine Kinase 37 L CK-MB (CK-2) Troponin I 0.071 NT-Pro-B Natriuret Pep 6800 H 05/11/18 05/11/18 05/12/18 12:30 19:00 01:06 Creatine Kinase CK-MB (CK-2) Troponin I 0.067 0.064 0.050 NT-Pro-B Natriuret Pep 05/23/18 05/24/18 05/27/18 10:36 09:38 10:01 Creatine Kinase CK-MB (CK-2) Troponin I 0.060 NT-Pro-B Natriuret Pep 819 889 06/03/18 06/08/1806/08/19 08:12 13:40 13:40 Creatine Kinase 39 L CK-MB (CK-2) 1.92 Troponin I 0.060 NT-Pro-B Natriuret Pep 1420 H 06/08/18 06/08/18 06/09/18 19:03 19:03 00:59 Creatine Kinase 36 L 34 L CK-MB (CK-2) 1.75 Troponin I 0.058 NT-Pro-B Natriuret Pep 06/09/18 06/09/18 06/09/18 00:59 08:04 08:04 Creatine Kinase 32 L CK-MB (CK-2) 1.58 1.79 Troponin I 0.063 0.064 NT-Pro-B Natriuret Pep 06/09/18 06/09/18 06/09/18 12:52 12:52 19:00 Creatine Kinase 46 L 31 L CK-MB (CK-2) 1.99 Troponin I 0.051 NT-Pro-B Natriuret Pep 06/09/18 19:00 Creatine Kinase CK-MB (CK-2) 1.80 Troponin I 0.072 NT-Pro-B Natriuret Pep Impressions: Thoracentesis Ultrasound 05/13/18 10:06 IMPRESSION: SUCCESSFUL THORACENTESIS USING ULTRASOUND GUIDANCE. Chest X-Ray 06/08/18 00:00 IMPRESSION: Cardiogenic pulmonary edema with bilateral pleural effusions. Assessment & Plan - Diagnosis (1) Acute on chronic systolic (congestive) heart failure Is this a current diagnosis for this admission?: Yes Plan: as per cardiology (2) Pleural effusion Is this a current diagnosis for this admission?: Yes Plan: Stable at this time (3) Acute respiratory failure with hypoxia and hypercapnia Is this a current diagnosis for this admission?: Yes Plan: Tolerating AVAPS (4) Atrial fibrillation Qualifiers: Atrial fibrillation type: paroxysmal Qualified Code(s): I48.0 - Paroxysmal atrial fibrillation Is this a current diagnosis for this admission?: Yes Plan: As per cardiology ventricular response stable at this time (5) VIOLETA (obstructive sleep apnea) Is this a current diagnosis for this admission?: Yes Plan: BiPAP with supplemental O2 with chest BiPAP as well as CPAP as needed
--- NOTE | 2018-06-26 13:35 | PDOC PROGRESS REPORT ---
Subjective Progress Note for:: 06/12/18 Subjective:: Unchanged Reason For Visit: CHF Physical Exam Vital Signs: Temp Pulse Resp BP Pulse Ox 97.9 F 94 20 106/65 98 06/24/18 12:05 06/24/18 12:05 06/24/18 12:05 06/24/18 12:05 06/24/18 12:05 Intake & Output 06/23/18 06/24/18 06/25/18 06:59 06:59 06:59 Intake Total 933 1492 Output Total 650 1340 Balance 283 152 Weight 86.6 kg General appearance: PRESENT: no acute distress, disheveled, obese Head exam: PRESENT: atraumatic, normocephalic Eye exam: PRESENT: conjunctiva pale, EOMI Mouth exam: PRESENT: dry mucosa, neck supple, tongue midline Neck exam: ABSENT: carotid bruit, JVD, lymphadenopathy, thyromegaly, tracheal deviation, tracheostomy Respiratory exam: PRESENT: decreased breath sounds, prolonged expiratory phas, rales, rhonchi, unlabored. ABSENT: retraction, stridor Cardiovascular exam: PRESENT: irregular rhythm Pulses: PRESENT: normal radial pulses GI/Abdominal exam: PRESENT: soft Gentrourinary exam: PRESENT: indwelling catheter Extremities exam: PRESENT: full ROM. ABSENT: calf tenderness, clubbing, pedal edema Musculoskeletal exam: ABSENT: deformity, dislocation Neurological exam: PRESENT: awake Psychiatric exam: PRESENT: agitated Focused psych exam: PRESENT: restlessness Skin exam: PRESENT: dry, warm Results Laboratory Results: 06/03/18 08:12 06/23/18 12:31 05/11/18 05/11/18 05/11/18 09:35 09:35 09:35 Creatine Kinase 37 L CK-MB (CK-2) Troponin I 0.071 NT-Pro-B Natriuret Pep 6800 H 05/11/18 05/11/18 05/12/18 12:30 19:00 01:06 Creatine Kinase CK-MB (CK-2) Troponin I 0.067 0.064 0.050 NT-Pro-B Natriuret Pep 05/23/18 05/24/18 05/27/18 10:36 09:38 10:01 Creatine Kinase CK-MB (CK-2) Troponin I 0.060 NT-Pro-B Natriuret Pep 819 889 06/03/18 06/08/18 06/08/18 08:12 13:40 13:40 Creatine Kinase 39 L CK-MB (CK-2) 1.92 Troponin I 0.060 NT-Pro-B Natriuret Pep 1420 H 06/08/18 06/08/18 06/09/18 19:03 19:03 00:59 Creatine Kinase 36 L 34 L CK-MB (CK-2) 1.75 Troponin I 0.058 NT-Pro-B Natriuret Pep 06/09/18 06/09/18 06/09/18 00:59 08:04 08:04 Creatine Kinase 32 L CK-MB (CK-2) 1.58 1.79 Troponin I 0.063 0.064 NT-Pro-B Natriuret Pep 06/09/18 06/09/18 06/09/18 12:52 12:52 19:00 Creatine Kinase 46 L 31 L CK-MB (CK-2) 1.99 Troponin I 0.051 NT-Pro-B Natriuret Pep 06/09/18 19:00 Creatine Kinase CK-MB (CK-2) 1.80 Troponin I 0.072 NT-Pro-B Natriuret Pep Impressions: Thoracentesis Ultrasound 05/13/18 10:06 IMPRESSION: SUCCESSFUL THORACENTESIS USING ULTRASOUND GUIDANCE. Chest X-Ray 06/08/18 00:00 IMPRESSION: Cardiogenic pulmonary edema with bilateral pleural effusions. Assessment & Plan - Diagnosis (1) Acute on chronic systolic (congestive) heart failure Is this a current diagnosis for this admission?: Yes Plan: as per cardiology (2) Pleural effusion Is this a current diagnosis for this admission?: Yes Plan: Stable at this time (3) Acute respiratory failure with hypoxia and hypercapnia Is this a current diagnosis for this admission?: Yes Plan: Tolerating AVAPS (4) Atrial fibrillation Qualifiers: Atrial fibrillation type: paroxysmal Qualified Code(s): I48.0 - Paroxysmal atrial fibrillation Is this a current diagnosis for this admission?: Yes Plan: As per cardiology ventricular response stable at this time (5) VIOLETA (obstructive sleep apnea) Is this a current diagnosis for this admission?: Yes Plan: BiPAP with supplemental O2 with chest BiPAP as well as CPAP as needed
--- NOTE | 2018-06-26 13:38 | PDOC PROGRESS REPORT ---
Subjective Progress Note for:: 05/28/18 Subjective:: Unchanged Reason For Visit: CHF Physical Exam Vital Signs: Temp Pulse Resp BP Pulse Ox 98.1 F 93 16 114/67 100 06/17/18 11:02 06/17/18 11:02 06/17/18 11:02 06/17/18 11:02 06/17/18 11:02 Intake & Output 06/16/18 06/17/18 06/18/18 06:59 06:59 06:59 Intake Total 1658 940 Output Total 1250 800 Balance 408 140 Weight 86.6 kg 86.6 kg General appearance: PRESENT: cooperative, hard of hearing, obese Head exam: PRESENT: atraumatic, normocephalic Eye exam: PRESENT: conjunctiva pale. ABSENT: nystagmus, scleral icterus Mouth exam: PRESENT: dry mucosa, neck supple, tongue midline Neck exam: ABSENT: carotid bruit, full ROM, JVD, lymphadenopathy, tenderness, thyromegaly, tracheal deviation, tracheostomy Respiratory exam: PRESENT: decreased breath sounds, prolonged expiratory phas, wheezes. ABSENT: accessory muscle use, rales, rhonchi, stridor, tachypnea Cardiovascular exam: PRESENT: RRR, +S1, +S2. ABSENT: tachycardia Pulses: PRESENT: normal radial pulses GI/Abdominal exam: PRESENT: soft. ABSENT: tenderness Rectal exam: PRESENT: deferred Extremities exam: ABSENT: calf tenderness, clubbing, tenderness Musculoskeletal exam: ABSENT: deformity, dislocation Neurological exam: PRESENT: alert, awake Psychiatric exam: PRESENT: anxious Skin exam: PRESENT: dry, warm. ABSENT: skin tears Results Laboratory Results: 06/03/18 08:12 06/16/18 11:33 05/11/18 05/11/18 05/11/18 09:35 09:35 09:35 Creatine Kinase 37 L CK-MB (CK-2) Troponin I 0.071 NT-Pro-B Natriuret Pep 6800 H 05/11/18 05/11/18 05/12/18 12:30 19:00 01:06 Creatine Kinase CK-MB (CK-2) Troponin I 0.067 0.064 0.050 NT-Pro-B Natriuret Pep 05/23/18 05/24/18 05/27/18 10:36 09:38 10:01 Creatine Kinase CK-MB (CK-2) Troponin I 0.060 NT-Pro-B Natriuret Pep 819 889 06/03/18 06/08/18 06/08/18 08:12 13:40 13:40 Creatine Kinase 39 L CK-MB (CK-2) 1.92 Troponin I 0.060 NT-Pro-B Natriuret Pep 1420 H 06/08/18 06/08/18 06/09/18 19:03 19:03 00:59 Creatine Kinase 36 L 34 L CK-MB (CK-2) 1.75 Troponin I 0.058 NT-Pro-B Natriuret Pep 06/09/18 06/09/18 06/09/18 00:59 08:04 08:04 Creatine Kinase 32 L CK-MB (CK-2) 1.58 1.79 Troponin I 0.063 0.064 NT-Pro-B Natriuret Pep 06/09/18 06/09/18 06/09/18 12:52 12:52 19:00 Creatine Kinase 46 L 31 L CK-MB (CK-2) 1.99 Troponin I 0.051 NT-Pro-B Natriuret Pep 06/09/18 19:00 Creatine Kinase CK-MB (CK-2) 1.80 Troponin I 0.072 NT-Pro-B Natriuret Pep Impressions: Thoracentesis Ultrasound 05/13/18 10:06 IMPRESSION: SUCCESSFUL THORACENTESIS USING ULTRASOUND GUIDANCE. Chest X-Ray 06/08/18 00:00 IMPRESSION: Cardiogenic pulmonary edema with bilateral pleural effusions. Assessment & Plan - Diagnosis (1) Pleural effusion Is this a current diagnosis for this admission?: Yes Plan: Stable at this time (2) Acute respiratory failure with hypoxia and hypercapnia Is this a current diagnosis for this admission?: Yes Plan: Tolerating AVAPS (3) Atrial fibrillation Qualifiers: Atrial fibrillation type: paroxysmal Qualified Code(s): I48.0 - Paroxysmal atrial fibrillation Is this a current diagnosis for this admission?: Yes Plan: As per cardiology ventricular response stable at this time
--- NOTE | 2018-06-26 16:46 | PDOC PROGRESS REPORT ---
Subjective Progress Note for:: 06/26/18 Subjective:: This is a 62-year-old male with a past medical history of CAD, prior CABG, COPD, diet-controlled DM, chronic systolic heart failure from ischemic cardiomyopathy with prior AICD placement, chronic respiratory failure on home O2, history of CVA with residual partial expressive aphasia who initially presented with increasing shortness of breath and leg swelling. Patient was admitted for CHF exacerbation. Patient has partial expressive aphasia (has some residual slurring and pauses) but is coherent and is able to converse with provider. He says his SOB is at baseline but he becomes short of breath when lying supine. He has been having persistent orthopnea. 05/13: Discussed in length again this morning with caregiver (Nuria) and patient. We discussed the need for thoracentesis again this morning including the indication due to his persistent orthopnea and significant bilateral pleural effusion. Also discussed the small risk of pneumothorax. Patient did agree undergo thoracentesis as he has been having patient orthopnea. Patient is oriented to person, place and situation. Also discussed with echocardiography tech on bedside about possible option to be transferred to a [facility] in [place] as patient is a his history of placement and disposition. He does not want to be transferred at this time and would prefer to stay here. 05/14: Patient does appear to have into capacity to make his own medical decisions. Patient was also evaluated by psych who deemed the same. Discussed in length again today about plan and disposition. Patient says he does not want to go to a assisted or rehab. He also does not want to talk about his CODE STATUS and says that he will "sort it out" later. Offered palliative care consult and he is receptive to it but not hospice. He says his breathing has improved after the thoracentesis. History Card Clerk recommended BiPAP at home. Patient is resistant on using BiPAP at home but agrees to try it here while inpatient and see if he tolerates it. 05/15: Upon encounter this morning, patient was sleeping on the recliner. Patient says that his house is not fixed yet. He says he does not want to go to any of the surrounding SNF/rehab facilities at this time but is agreeable to being transferred to the [facility] in [place]. Convinced on trying the BiPAP and he says he will try wearing it. 05/16: No acute event overnight. Patient has complied with BIPAP. He says his breathing has slightly improved but still has orthopnea. Denies chest pain or dizziness. 05/17: Patient says his breathing has improved and he feels better today. He says he can use the BIPAP for 2 hrs but is willing to try to extend it to 3-4 hrs today. 05/18: Patient only used BIPAP for 1.5 hrs last night. Upon encounter, he does say that he breathes and feels better when on BIPAP. He was advised on increas ing his BIPAP use again today. He denies worsening SOB or chest pain. Still awaiting for update on transfer to [facility] in [facility]. Patient has remained stable with no acute issues in the interim and has just been waiting for placement. 05/26/18: He has been more complaint with BIPAP. He denies acute SOB and feels like he is at his baseline. 05/27/18: No acute event overnight. He did complaint of transient chest tightness this morning after he ate a big breakfast (ham and omelet). He says it only lasted for a few seconds. EKG was negative for acute changes. 05/28/18: No acute event. No acute symptoms, no chest pain or SOB. He is at his baseline. 05/29/18: No acute event. Patient denies any acute complaint. Updated by RN and echocardiography tech that patient's house will be condemned due to multiple issues. 05/30/18: No acute issues. Patient is still awaiting placement. 05/31/18:Patient is still awaiting placement. Discussed with Eryn on bedside, patient's group director experience who says she is getting her new house soon and may be able to have patient live with her. 06/09/18: Reassumed care today. No acute issues in the interim. Patient still here due to placement issues. Apparently, his group director experience's house was not ready yet. He is at his baseline and denies chest pain or SOB at the moment. 06/13/18: No acute issues. Denies chest pain or SOB. Discussed on bedside with Eryn (group director experience) today who says they are still doing repairs for a leakage at her house. Patient has remained stable with no acute issues in the interim and is still waiting for placement. 06/23/18: Reassumed care today. No acute issues. 06/24/18: No acute issues. He denies acute complaints. Still awaiting placement. [facility] medical terminologist [facility]. 06/25/18: Patient reportedly tripped last night but did not fall on the floor. Otherwise, he denies acute complaints. 06/26: No acute event overnight. He is asleep upon encounter. When he woke up, he complains of heartburn. He says it is not chest pain but more of a burning sensation on the chest which he had in the past. He was given a GI cocktail which completely resolved his heartburn. . Still awaiting placement. Reason For Visit: CHF Physical Exam Vital Signs: Temp Pulse Resp BP Pulse Ox 98.2 F 98 20 118/89 H 97 06/26/18 16:01 06/26/18 16:01 06/26/18 16:01 06/26/18 16:01 06/26/18 16:01 Intake & Output 06/25/18 06/26/18 06/27/18 06:59 06:59 06:59 Intake Total 1360 1020 Output Total 1650 525 Balance -290 495 Weight 190 lb 14.725 oz General appearance: PRESENT: no acute distress, well-developed, well-nourished Head exam: PRESENT: atraumatic, normocephalic Eye exam: PRESENT: conjunctiva pink, EOMI, PERRLA. ABSENT: scleral icterus Ear exam: PRESENT: normal external ear exam Mouth exam: PRESENT: moist, tongue midline Neck exam: ABSENT: carotid bruit, JVD, lymphadenopathy, thyromegaly Respiratory exam: PRESENT: decreased breath sounds - slightly dec BS on the bases. ABSENT: rales, rhonchi, wheezes Cardiovascular exam: PRESENT: systolic murmur. ABSENT: rubs Pulses: PRESENT: normal dorsalis pedis pul GI/Abdominal exam: PRESENT: normal bowel sounds, soft. ABSENT: distended, guarding, mass, organolmegaly, rebound, tenderness Rectal exam: PRESENT: deferred Extremities exam: PRESENT: +1 edema Neurological exam: PRESENT: alert, awake, oriented to person, oriented to place, oriented to time, oriented to situation, CN II-XII grossly intact. ABSENT: motor sensory deficit Results Laboratory Results: 06/03/18 08:12 06/25/18 07:35 05/11/18 05/11/18 05/11/18 09:35 09:35 09:35 Creatine Kinase 37 L CK-MB (CK-2) Troponin I 0.071 NT-Pro-B Natriuret Pep 6800 H 05/11/18 05/11/18 05/12/18 12:30 19:00 01:06 Creatine Kinase CK-MB (CK-2) Troponin I 0.067 0.064 0.050 NT-Pro-B Natriuret Pep 05/23/18 05/24/18 05/27/18 10:36 09:38 10:01 Creatine Kinase CK-MB (CK-2) Troponin I 0.060 NT-Pro-B Natriuret Pep 819 889 06/03/18 06/08/18 06/08/18 08:12 13:40 13:40 Creatine Kinase 39 L CK-MB (CK-2) 1.92 Troponin I 0.060 NT-Pro-B Natriuret Pep 1420 H 06/08/18 06/08/18 06/09/18 19:03 19:03 00:59 Creatine Kinase 36 L 34 L CK-MB (CK-2) 1.75 Troponin I 0.058 NT-Pro-B Natriuret Pep 06/09/18 06/09/18 06/09/18 00:59 08:04 08:04 Creatine Kinase 32 L CK-MB (CK-2) 1.58 1.79 Troponin I 0.063 0.064 NT-Pro-B Natriuret Pep 06/09/18 06/09/18 06/09/18 12:52 12:52 19:00 Creatine Kinase 46 L 31 L CK-MB (CK-2) 1.99 Troponin I 0.051 NT-Pro-B Natriuret Pep 06/09/18 06/25/18 19:00 07:35 Creatine Kinase CK-MB (CK-2) 1.80 Troponin I 0.072 0.054 NT-Pro-B Natriuret Pep Impressions: Thoracentesis Ultrasound 05/13/18 10:06 IMPRESSION: SUCCESSFUL THORACENTESIS USING ULTRASOUND GUIDANCE. Chest X-Ray 06/08/18 00:00 IMPRESSION: Cardiogenic pulmonary edema with bilateral pleural effusions. Assessment & Plan - Diagnosis (1) Acute and chronic respiratory failure with hypoxia Is this a current diagnosis for this admission?: Yes Plan: Secondary to CHF exacerbation. On 2L via NC. Continue BIPAP at night. (2) Acute on chronic systolic (congestive) heart failure Is this a current diagnosis for this admission?: Yes Plan: Combined systolic and diastolic biventricular failure. Continue Lasix 40 mg daily. Cardiology following. Echo shows an EF of 30-35%, grade 2 diastolic dysfunction and dilated left and right ventricular. Patient already has an AICD. Patient is not on UZMA inhibitor hence is not on optimal medical therapy. CHF medication regimen cannot be optimized as patient has had angioedema from captopril before. Both UZMA inhibitors and Entresto will be contraindicated to a history of ACEi-associated angioedema. Discussed with cardio and pulm. Recommendation for BIPAP at home/discharge for his biventricular heart failure and significant pulmonary hypertension. Continue Coreg. Aldactone discontinued as patient did have recurrence of hyperkalemia when it was resumed. 06/11/18: Creatinine trended up to 1.5. Decreased Lasix to 20 mg daily today. 06/13/18: Creatinine has improved down to 1.2. Will increase Lasix back to 40 mg daily as his Aldactone was also d/raghav due to hyperkalemia. 06/15/18: Creatinine trended up to 1.4 again after increasing Lasix back to 40 mg daily. Reduce down to home dose of 20 mg daily. 06/26: Creatinine at baseline. Continue Lasix 20 mg daily. (3) Pleural effusion Is this a current diagnosis for this admission?: Yes Plan: S/P right sided thoracentesis (750 cc) on 05/13/18. Pleural fluid analysis is consistent with transudative effusion likely related to patient's CHF. Chest x- ray after thoracentesis did show improvement in aeration of the right lower lung salazar. (4) CAD (coronary artery disease) Is this a current diagnosis for this admission?: Yes Plan: Stable. Continue aspirin, statin and beta steve. (5) Hyperkalemia Is this a current diagnosis for this admission?: Yes Plan: Resolved after discontinuing Aldactone. Potassium today trended up to 5.6. Will recheck another BMP tomorrow. Aldactone will be indefinitely discontinued as he has consistently developed recurrence of hyperkalemia with Aldactone. 06/23: He was given a dose of Patiromer. 06/25: Resolved. (6) DEANNA (acute kidney injury) Is this a current diagnosis for this admission?: Yes Plan: Improved but creatinine trended up again after increasing Lasix to 40 mg daily. Reduce back down to 20 mg Lasix daily. Repeat BMP tomorrow. Creatinine now at baseline of 1.3. - Time Time Spent with patient: 25-34 minutes
[2018-06-26] MEDS: LANSOPRAZOLE 30 MG TAB.RAP.DR PO SCH (18:16)
[2018-06-26] MEDS: TRAMADOL HCL 50 MG TABLET PO PRN (21:26)
[2018-06-26] MEDS: ROPINIROLE HCL 0.25 MG TABLET PO SCH (21:30)
[2018-06-27] MEDS: LANSOPRAZOLE 30 MG TAB.RAP.DR PO SCH ×2 (05:51→17:45)
[2018-06-27] MEDS: INSULIN LISPRO 100 UNIT/ML 3 ML VIAL SUBCUT SCH ×4 (08:31→21:21)
[2018-06-27] MEDS: FUROSEMIDE 20 MG TABLET PO SCH (09:10)
[2018-06-27] MEDS: ACETAMINOPHEN 325 MG TABLET PO SCH ×4 (09:11→21:17)
[2018-06-27] MEDS: DOCUSATE SODIUM 100 MG CAPSULE PO SCH ×2 (09:12→17:46)
[2018-06-27] MEDS: ASPIRIN 81 MG TABLET, CHEWABLE PO SCH (09:12)
[2018-06-27] MEDS: GABAPENTIN 100 MG CAPSULE PO SCH ×4 (09:12→21:17)
[2018-06-27] MEDS: CARVEDILOL 3.125 MG TABLET PO SCH ×2 (09:12→21:17)
[2018-06-27] MEDS: DIGOXIN 0.125 MG TABLET PO SCH (09:12)
[2018-06-27] MEDS: CYCLOSPORINE 0.05% OPH EMULSIO 0.4 ML DROPERETTE OU SCH (09:13)
[2018-06-27] MEDS: TRAMADOL HCL 50 MG TABLET PO PRN ×2 (11:07→22:33)
[2018-06-27 11:21] LABS: ANION GAP 9 (5-19); BLOOD UREA NITROGEN 29 mg/dL (7-20); CARBON DIOXIDE 34 mmol/L (22-30); CHLORIDE 98 mmol/L (98-107); GLUCOSE 129 mg/dL (75-110); POTASSIUM 5.4 mmol/L (3.6-5.0); SODIUM 141.1 mmol/L (137-145)
--- NOTE | 2018-06-27 12:36 | PDOC PROGRESS REPORT ---
Subjective Progress Note for:: 06/27/18 Subjective:: This is a 62-year-old male with a past medical history of CAD, prior CABG, COPD, diet-controlled DM, chronic systolic heart failure from ischemic cardiomyopathy with prior AICD placement, chronic respiratory failure on home O2, history of CVA with residual partial expressive aphasia who initially presented with increasing shortness of breath and leg swelling. Patient was admitted for CHF exacerbation. Patient has partial expressive aphasia (has some residual slurring and pauses) but is coherent and is able to converse with provider. He says his SOB is at baseline but he becomes short of breath when lying supine. He has been having persistent orthopnea. 05/13: Discussed in length again this morning with caregiver (Nuria) and patient. We discussed the need for thoracentesis again this morning including the indication due to his persistent orthopnea and significant bilateral pleural effusion. Also discussed the small risk of pneumothorax. Patient did agree undergo thoracentesis as he has been having patient orthopnea. Patient is oriented to person, place and situation. Also discussed with material planner on bedside about possible option to be transferred to a [facility] in [place] as patient is a his history of placement and disposition. He does not want to be transferred at this time and would prefer to stay here. 05/14: Patient does appear to have into capacity to make his own medical decisions. Patient was also evaluated by psych who deemed the same. Discussed in length again today about plan and disposition. Patient says he does not want to go to a [place] [facility] or rehab. He also does not want to talk about his CODE STATUS and says that he will "sort it out" later. Offered palliative care consult and he is receptive to it but not hospice. He says his breathing has improved after the thoracentesis. Esthetician recommended BiPAP at home. Patient is resistant on using BiPAP at home but agrees to try it here while inpatient and see if he tolerates it. 05/15: Upon encounter this morning, patient was sleeping on the recliner. Patient says that his house is not fixed yet. He says he does not want to go to any of the surrounding SNF/rehab facilities at this time but is agreeable to being transferred to the [facility] in [place]. Convinced on trying the BiPAP and he says he will try wearing it. 05/16: No acute event overnight. Patient has complied with BIPAP. He says his breathing has slightly improved but still has orthopnea. Denies chest pain or dizziness. 05/17: Patient says his breathing has improved and he feels better today. He says he can use the BIPAP for 2 hrs but is willing to try to extend it to 3-4 hrs today. 05/18: Patient only used BIPAP for 1.5 hrs last night. Upon encounter, he does say that he breathes and feels better when on BIPAP. He was advised on increas ing his BIPAP use again today. He denies worsening SOB or chest pain. Still awaiting for update on transfer to [facility] in [facility]. Patient has remained stable with no acute issues in the interim and has just been waiting for placement. 05/26/18: He has been more complaint with BIPAP. He denies acute SOB and feels like he is at his baseline. 05/27/18: No acute event overnight. He did complaint of transient chest tightness this morning after he ate a big breakfast (ham and omelet). He says it only lasted for a few seconds. EKG was negative for acute changes. 05/28/18: No acute event. No acute symptoms, no chest pain or SOB. He is at his baseline. 05/29/18: No acute event. Patient denies any acute complaint. Updated by RN and material planner that patient's house will be condemned due to multiple issues. 05/30/18: No acute issues. Patient is still awaiting placement. 05/31/18:Patient is still awaiting placement. Discussed with Eryn on bedside, patient's formula weigher who says she is getting her new house soon and may be able to have patient live with her. 06/09/18: Reassumed care today. No acute issues in the interim. Patient still here due to placement issues. Apparently, his formula weigher's house was not ready yet. He is at his baseline and denies chest pain or SOB at the moment. 06/13/18: No acute issues. Denies chest pain or SOB. Discussed on bedside with Eryn (formula weigher) today who says they are still doing repairs for a leakage at her house. Patient has remained stable with no acute issues in the interim and is still waiting for placement. 06/23/18: Reassumed care today. No acute issues. 06/24/18: No acute issues. He denies acute complaints. Still awaiting placement. [facility] 06/25/18: Patient reportedly tripped last night but did not fall on the floor. Otherwise, he denies acute complaints. 06/26: No acute event overnight. He is asleep upon encounter. When he woke up, he complains of heartburn. He says it is not chest pain but more of a burning sensation on the chest which he had in the past. He was given a GI cocktail which completely resolved his heartburn. 06/27: No acute event overnight. Denies chest pain or SOB. No reucrrence of heartburn. He does say he continues to have intermittent pain on the left hand joints and right foot. He says he has a history of gouty arthritis. Will add low dose prednisone. Still awaiting placement. Reason For Visit: CHF Physical Exam Vital Signs: Temp Pulse Resp BP Pulse Ox 97.4 F 96 19 103/66 100 06/27/18 11:18 06/27/18 11:18 06/27/18 11:18 06/27/18 11:18 06/27/18 11:18 Intake & Output 06/26/18 06/27/18 06/28/18 06:59 06:59 06:59 Intake Total 1020 902 236 Output Total 525 1550 460 Balance 495 -648 -224 Weight 190 lb 14.725 oz General appearance: PRESENT: no acute distress, obese Head exam: PRESENT: atraumatic, normocephalic Eye exam: PRESENT: conjunctiva pink, EOMI, PERRLA. ABSENT: scleral icterus Ear exam: PRESENT: normal external ear exam Mouth exam: PRESENT: moist, tongue midline Neck exam: ABSENT: carotid bruit, JVD, lymphadenopathy, thyromegaly Respiratory exam: PRESENT: decreased breath sounds - bases. ABSENT: rales, rhonchi, wheezes Cardiovascular exam: PRESENT: systolic murmur. ABSENT: rubs GI/Abdominal exam: PRESENT: normal bowel sounds, soft. ABSENT: distended, gu arding, mass, organolmegaly, rebound, tenderness Extremities exam: PRESENT: +1 edema Neurological exam: PRESENT: alert, awake, oriented to person, oriented to place, oriented to time, oriented to situation Results Laboratory Results: 06/03/18 08:12 06/27/18 10:30 06/27/18 10:30 Sodium 141.1 Potassium 5.4 H Chloride 98 Carbon Dioxide 34 H Anion Gap 9 BUN 29 H Creatinine 1.28 H Est GFR ( Amer) > 60 Est GFR (Non-Af Amer) 57 L Glucose 129 H Calcium 9.0 Magnesium 2.1 05/11/18 05/11/18 05/11/18 09:35 09:35 09:35 Creatine Kinase 37 L CK-MB (CK-2) Troponin I 0.071 NT-Pro-B Natriuret Pep 6800 H 05/11/18 05/11/18 05/12/18 12:30 19:00 01:06 Creatine Kinase CK-MB (CK-2) Troponin I 0.067 0.064 0.050 NT-Pro-B Natriuret Pep 05/23/18 05/24/18 05/27/18 10:36 09:38 10:01 Creatine Kinase CK-MB (CK-2) Troponin I 0.060 NT-Pro-B Natriuret Pep 819 889 06/03/18 06/08/18 06/08/18 08:12 13:40 13:40 Creatine Kinase 39 L CK-MB (CK-2) 1.92 Troponin I 0.060 NT-Pro-B Natriuret Pep 1420 H 06/08/18 06/08/18 06/09/18 19:03 19:03 00:59 Creatine Kinase 36 L 34 L CK-MB (CK-2) 1.75 Troponin I 0.058 NT-Pro-B Natriuret Pep 06/09/18 06/09/18 06/09/18 00:59 08:04 08:04 Creatine Kinase 32 L CK-MB (CK-2) 1.58 1.79 Troponin I 0.063 0.064 NT-Pro-B Natriuret Pep 06/09/18 06/09/18 06/09/18 12:52 12:52 19:00 Creatine Kinase 46 L 31 L CK-MB (CK-2) 1.99 Troponin I 0.051 NT-Pro-B Natriuret Pep 06/09/18 06/25/18 19:00 07:35 Creatine Kinase CK-MB (CK-2) 1.80 Troponin I 0.072 0.054 NT-Pro-B Natriuret Pep Impressions: Thoracentesis Ultrasound 05/13/18 10:06 IMPRESSION: SUCCESSFUL THORACENTESIS USING ULTRASOUND GUIDANCE. Chest X-Ray 06/08/18 00:00 IMPRESSION: Cardiogenic pulmonary edema with bilateral pleural effusions. Assessment & Plan - Diagnosis (1) Acute and chronic respiratory failure with hypoxia Is this a current diagnosis for this admission?: Yes Plan: Secondary to CHF exacerbation. On 2L via NC. Continue BIPAP at night. (2) Acute on chronic systolic (congestive) heart failure Is this a current diagnosis for this admission?: Yes Plan: Combined systolic and diastolic biventricular failure. Continue Lasix 40 mg daily. Cardiology following. Echo shows an EF of 30-35%, grade 2 diastolic dysfunction and dilated left and right ventricular. Patient already has an AICD. Patient is not on UZMA inhibitor hence is not on optimal medical therapy. CHF medication regimen cannot be optimized as patient has had angioedema from captopril before. Both UZMA inhibitors and Entresto will be contraindicated to a history of ACEi-associated angioedema. Discussed with cardio and pulm. Recommendation for BIPAP at home/discharge for his biventricular heart failure and significant pulmonary hypertension. Continue Coreg. Aldactone discontinued as patient did have recurrence of hype rkalemia when it was resumed. 06/11/18: Creatinine trended up to 1.5. Decreased Lasix to 20 mg daily today. 06/13/18: Creatinine has improved down to 1.2. Will increase Lasix back to 40 mg daily as his Aldactone was also d/raghav due to hyperkalemia. 06/15/18: Creatinine trended up to 1.4 again after increasing Lasix back to 40 mg daily. Reduce down to home dose of 20 mg daily. 2/2: Creatinine at baseline. Continue Lasix 20 mg daily. (3) Pleural effusion Is this a current diagnosis for this admission?: Yes Plan: S/P right sided thoracentesis (750 cc) on 05/13/18. Pleural fluid analysis is consistent with transudative effusion likely related to patient's CHF. Chest x- ray after thoracentesis did show improvement in aeration of the right lower lung salazar. (4) CAD (coronary artery disease) Is this a current diagnosis for this admission?: Yes Plan: Stable. Continue aspirin, statin and beta steve. (5) Hyperkalemia Is this a current diagnosis for this admission?: Yes Plan: Resolved after discontinuing Aldactone. Potassium today trended up to 5.6. Will recheck another BMP tomorrow. Aldactone will be indefinitely discontinued as he has consistently developed recurrence of hyperkalemia with Aldactone. 06/23: He was given a dose of Patiromer. 06/25: Resolved. 06/27: Will reassess and repeat BMP. (6) DEANNA (acute kidney injury) Is this a current diagnosis for this admission?: Yes Plan: Improved but creatinine trended up again after increasing Lasix to 40 mg daily. Reduce back down to 20 mg Lasix daily. Repeat BMP tomorrow. Creatinine now at baseline of 1.2. - Time Time Spent with patient: 15-24 minutes
[2018-06-27] MEDS ORDERED: PREDNISONE 10 MG TABLET PO ONE (14:30)
[2018-06-27] MEDS: PREDNISONE 10 MG TABLET PO SCH (17:46)
[2018-06-27] MEDS: ROPINIROLE HCL 0.25 MG TABLET PO SCH (21:21)
--- NOTE | 2018-06-27 23:01 | RADIOLOGY REPORT (SQ) ---
EXAM DESCRIPTION: XR CHEST 1 VIEW COMPLETED DATE/TME: 06/27/2018 21:30 CLINICAL HISTORY: 62 years Male, pleural effusion COMPARISON: 06/08/18 NUMBER OF VIEWS/TECHNIQUE: 1/AP FINDINGS: Adequate lung volume, moderate right pleural effusion, moderate patchy opacity of the right lower lung, severely enlarged cardiac silhouette, and intact bony thorax.Left cardiac stimulator with leads. IMPRESSION: No significant change.
[2018-06-28] MEDS: LANSOPRAZOLE 30 MG TAB.RAP.DR PO SCH ×2 (05:09→17:08)
[2018-06-28] MEDS: ACETAMINOPHEN 325 MG TABLET PO SCH ×4 (09:40→21:25)
[2018-06-28] MEDS: GABAPENTIN 100 MG CAPSULE PO SCH ×4 (09:40→21:25)
[2018-06-28] MEDS: DOCUSATE SODIUM 100 MG CAPSULE PO SCH ×2 (09:41→17:08)
[2018-06-28] MEDS: CARVEDILOL 3.125 MG TABLET PO SCH ×2 (09:41→21:25)
[2018-06-28] MEDS: FUROSEMIDE 20 MG TABLET PO SCH (09:41)
[2018-06-28] MEDS: ASPIRIN 81 MG TABLET, CHEWABLE PO SCH (09:41)
[2018-06-28] MEDS: PREDNISONE 10 MG TABLET PO SCH ×2 (09:41→17:09)
[2018-06-28] MEDS: DIGOXIN 0.125 MG TABLET PO SCH (09:42)
[2018-06-28] MEDS: CYCLOSPORINE 0.05% OPH EMULSIO 0.4 ML DROPERETTE OU SCH (09:46)
--- NOTE | 2018-06-28 11:10 | PDOC PROGRESS REPORT ---
Subjective Progress Note for:: 06/28/18 Subjective:: This is a 62-year-old male with a past medical history of CAD, prior CABG, COPD, diet-controlled DM, chronic systolic heart failure from ischemic cardiomyopathy with prior AICD placement, chronic respiratory failure on home O2, history of CVA with residual partial expressive aphasia who initially presented with increasing shortness of breath and leg swelling. Patient was admitted for CHF exacerbation. Patient has partial expressive aphasia (has some residual slurring and pauses) but is coherent and is able to converse with provider. He says his SOB is at baseline but he becomes short of breath when lying supine. He has been having persistent orthopnea. 05/13: Discussed in length again this morning with caregiver (Nuria) and patient. We discussed the need for thoracentesis again this morning including the indication due to his persistent orthopnea and significant bilateral pleural effusion. Also discussed the small risk of pneumothorax. Patient did agree undergo thoracentesis as he has been having patient orthopnea. Patient is oriented to person, place and situation. Also discussed with product planner on bedside about possible option to be transferred to a [facility] in [place] as patient is a his history of placement and disposition. He does not want to be transferred at this time and would prefer to stay here. 05/14: Patient does appear to have into capacity to make his own medical decisions. Patient was also evaluated by psych who deemed the same. Discussed in length again today about plan and disposition. Patient says he does not want to go to a shelter or rehab. He also does not want to talk about his CODE STATUS and says that he will "sort it out" later. Offered palliative care consult and he is receptive to it but not hospice. He says his breathing has improved after the thoracentesis. Open Hearth Laborer recommended BiPAP at home. Patient is resistant on using BiPAP at home but agrees to try it here while inpatient and see if he tolerates it. 05/15: Upon encounter this morning, patient was sleeping on the recliner. Patient says that his house is not fixed yet. He says he does not want to go to any of the surrounding SNF/rehab facilities at this time but is agreeable to being transferred to the [facility] in [place]. Convinced on trying the BiPAP and he says he will try wearing it. 05/16: No acute event overnight. Patient has complied with BIPAP. He says his breathing has slightly improved but still has orthopnea. Denies chest pain or dizziness. 05/17: Patient says his breathing has improved and he feels better today. He says he can use the BIPAP for 2 hrs but is willing to try to extend it to 3-4 hrs today. 05/18: Patient only used BIPAP for 1.5 hrs last night. Upon encounter, he does say that he breathes and feels better when on BIPAP. He was advised on increas ing his BIPAP use again today. He denies worsening SOB or chest pain. Still awaiting for update on transfer to [facility] in [facility]. Patient has remained stable with no acute issues in the interim and has just been waiting for placement. 05/26/18: He has been more complaint with BIPAP. He denies acute SOB and feels like he is at his baseline. 05/27/18: No acute event overnight. He did complaint of transient chest tightness this morning after he ate a big breakfast (ham and omelet). He says it only lasted for a few seconds. EKG was negative for acute changes. 05/28/18: No acute event. No acute symptoms, no chest pain or SOB. He is at his baseline. 05/29/18: No acute event. Patient denies any acute complaint. Updated by RN and product planner that patient's house will be condemned due to multiple issues. 05/30/18: No acute issues. Patient is still awaiting placement. 05/31/18:Patient is still awaiting placement. Discussed with Eryn on bedside, patient's ambulatory technologist who says she is getting her new house soon and may be able to have patient live with her. 06/09/18: Reassumed care today. No acute issues in the interim. Patient still here due to placement issues. Apparently, his ambulatory technologist's house was not ready yet. He is at his baseline and denies chest pain or SOB at the moment. 06/13/18: No acute issues. Denies chest pain or SOB. Discussed on bedside with Eryn (ambulatory technologist) today who says they are still doing repairs for a leakage at her house. Patient has remained stable with no acute issues in the interim and is still waiting for placement. 06/23/18: Reassumed care today. No acute issues. 06/24/18: No acute issues. He denies acute complaints. Still awaiting placement. [facility] care administrator [facility]. 06/25/18: Patient reportedly tripped last night but did not fall on the floor. Otherwise, he denies acute complaints. 06/26: No acute event overnight. He is asleep upon encounter. When he woke up, he complains of heartburn. He says it is not chest pain but more of a burning sensation on the chest which he had in the past. He was given a GI cocktail which completely resolved his heartburn. 06/27: No acute event overnight. Denies chest pain or SOB. No recurrence of heartburn. He does say he continues to have intermittent pain on the left hand joints and right foot. He says he has a history of gouty arthritis. Will add low dose prednisone. 06/28: No acute event overnight. Re evaluated by pulmonology yesterday and repeat CXR was ordered which showed stable changes, no worsening of pleural effusion. He says his hand and right foot joint pains improved with the prednisone. Denies chest pain or SOB. Still awaiting placement. He says Eryn told him, the house may be ready by Friday (06/30). Reason For Visit: CHF Physical Exam Vital Signs: Temp Pulse Resp BP Pulse Ox 98.3 F 96 18 100/61 100 06/28/18 08:16 06/28/18 08:16 06/28/18 08:16 06/28/18 08:16 06/28/18 08:16 Intake & Output 06/27/18 06/28/18 06/29/18 06:59 06:59 06:59 Intake Total 902 1032 Output Total 1550 1245 Balance -648 -213 General appearance: PRESENT: no acute distress, well-developed, well-nourished Head exam: PRESENT: atraumatic, normocephalic Eye exam: PRESENT: conjunctiva pink, EOMI, PERRLA. ABSENT: scleral icterus Ear exam: PRESENT: normal external ear exam Neck exam: ABSENT: carotid bruit, JVD, lymphadenopathy, thyromegaly Respiratory exam: PRESENT: decreased breath sounds - bases, unchanged. ABSENT: rales, rhonchi, wheezes Cardiovascular exam: PRESENT: systolic murmur. ABSENT: rubs Pulses: PRESENT: normal dorsalis pedis pul GI/Abdominal exam: PRESENT: normal bowel sounds, soft. ABSENT: distended, guarding, mass, organolmegaly, rebound, tenderness Rectal exam: PRESENT: deferred Neurological exam: PRESENT: alert, awake, oriented to person, oriented to place, oriented to time, oriented to situation, CN II-XII grossly intact. ABSENT: motor sensory deficit Results Laboratory Results: 06/03/18 08:12 06/27/18 10:30 06/27/18 10:30 Sodium 141.1 Potassium 5.4 H Chloride 98 Carbon Dioxide 34 H Anion Gap 9 BUN 29 H Creatinine 1.28 H Est GFR ( Amer) > 60 Est GFR (Non-Af Amer) 57 L Glucose 129 H Calcium 9.0 Magnesium 2.1 05/11/18 05/11/18 05/11/18 09:35 09:35 09:35 Creatine Kinase 37 L CK-MB (CK-2) Troponin I 0.071 NT-Pro-B Natriuret Pep 6800 H 05/11/18 05/11/18 05/12/18 12:30 19:00 01:06 Creatine Kinase CK-MB (CK-2) Troponin I 0.067 0.064 0.050 NT-Pro-B Natriuret Pep 05/23/18 05/24/18 05/27/18 10:36 09:38 10:01 Creatine Kinase CK-MB (CK-2) Troponin I 0.060 NT-Pro-B Natriuret Pep 819 889 06/03/18 06/08/18 06/08/18 08:12 13:40 13:40 Creatine Kinase 39 L CK-MB (CK-2) 1.92 Troponin I 0.060 NT-Pro-B Natriuret Pep 1420 H 06/08/18 06/08/18 06/09/18 19:03 19:03 00:59 Creatine Kinase 36 L 34 L CK-MB (CK-2) 1.75 Troponin I 0.058 NT-Pro-B Natriuret Pep 06/09/18 06/09/18 06/09/18 00:59 08:04 08:04 Creatine Kinase 32 L CK-MB (CK-2) 1.58 1.79 Troponin I 0.063 0.064 NT-Pro-B Natriuret Pep 06/09/18 06/09/18 06/09/18 12:52 12:52 19:00 Creatine Kinase 46 L 31 L CK-MB (CK-2) 1.99 Troponin I 0.051 NT-Pro-B Natriuret Pep 06/09/18 06/25/18 19:00 07:35 Creatine Kinase CK-MB (CK-2) 1.80 Troponin I 0.072 0.054 NT-Pro-B Natriuret Pep Impressions: Thoracentesis Ultrasound 05/13/18 10:06 IMPRESSION: SUCCESSFUL THORACENTESIS USING ULTRASOUND GUIDANCE. Chest X-Ray 06/27/18 21:30 IMPRESSION: No significant change. Assessment & Plan - Diagnosis (1) Acute and chronic respiratory failure with hypoxia Is this a current diagnosis for this admission?: Yes Plan: Secondary to CHF exacerbation. On 2L via NC. Continue BIPAP at night. (2) Acute on chronic systolic (congestive) heart failure Is this a current diagnosis for this admission?: Yes Plan: Combined systolic and diastolic biventricular failure. Continue Lasix 40 mg daily. Cardiology following. Echo shows an EF of 30-35%, grade 2 diastolic dysfunction and dilated left and right ventricular. Patient already has an AICD. Patient is not on UZMA inhibitor hence is not on optimal medical therapy. CHF medication regimen cannot be optimized as patient has had angioedema from captopril before. Both UZMA inhibitors and Entresto will be contraindicated to a history of ACEi-associated angioedema. Discussed with cardio and pulm. Recommendation for BIPAP at home/discharge for his biventricular heart failure and significant pulmonary hypertension. Continue Coreg. Aldactone discontinued as patient did have recurrence of hyperkalemia when it was resumed. 06/11/18: Creatinine trended up to 1.5. Decreased Lasix to 20 mg daily today. 06/13/18: Creatinine has improved down to 1.2. Will increase Lasix back to 40 mg daily as his Aldactone was also d/raghav due to hyperkalemia. 06/15/18: Creatinine trended up to 1.4 again after increasing Lasix back to 40 mg daily. Reduce down to home dose of 20 mg daily. 2/3: Creatinine at baseline. Continue Lasix 20 mg daily. (3) Pleural effusion Is this a current diagnosis for this admission?: Yes Plan: S/P right sided thoracentesis (750 cc) on 05/13/18. Pleural fluid analysis is consistent with transudative effusion likely related to patient's CHF. Chest x- ray after thoracentesis did show improvement in aeration of the right lower lung salazar. Re-evaluated by pulmonology last night, repeat CXR ordered which showed stable changes, no worsening of pleural effusion. (4) CAD (coronary artery disease) Is this a current diagnosis for this admission?: Yes Plan: Stable. Continue aspirin, statin and beta steve. (5) Hyperkalemia Is this a current diagnosis for this admission?: Yes Plan: Resolved after discontinuing Aldactone. Potassium today trended up to 5.6. Will recheck another BMP tomorrow. Aldactone will be indefinitely discontinued as he has consistently developed recurrence of hyperkalemia with Aldactone. 06/23: He was given a dose of Patiromer. 06/25: Resolved. (6) DEANNA (acute kidney injury) Is this a current diagnosis for this admission?: Yes Plan: Improved but creatinine trended up again after increasing Lasix to 40 mg daily. Reduce back down to 20 mg Lasix daily. Repeat BMP tomorrow. Creatinine now at baseline of 1.2. (7) Gouty arthritis Is this a current diagnosis for this admission?: Yes Plan: Improved with prednisone. - Time Time Spent with patient: 15-24 minutes
[2018-06-28] MEDS: INSULIN LISPRO 100 UNIT/ML 3 ML VIAL SUBCUT SCH ×4 (11:29→21:27)
[2018-06-28] MEDS: TRAMADOL HCL 50 MG TABLET PO PRN (16:28)
[2018-06-28] MEDS: ROPINIROLE HCL 0.25 MG TABLET PO SCH (21:27)
[2018-06-29] MEDS: LANSOPRAZOLE 30 MG TAB.RAP.DR PO SCH ×2 (05:55→17:16)
[2018-06-29] MEDS: ACETAMINOPHEN 325 MG TABLET PO SCH ×4 (09:34→21:53)
[2018-06-29] MEDS: FUROSEMIDE 20 MG TABLET PO SCH (09:35)
[2018-06-29] MEDS: GABAPENTIN 100 MG CAPSULE PO SCH ×4 (09:35→21:53)
[2018-06-29] MEDS: ASPIRIN 81 MG TABLET, CHEWABLE PO SCH (09:35)
[2018-06-29] MEDS: DOCUSATE SODIUM 100 MG CAPSULE PO SCH ×2 (09:35→17:16)
[2018-06-29] MEDS: PREDNISONE 10 MG TABLET PO SCH ×2 (09:36→17:16)
[2018-06-29] MEDS: CARVEDILOL 3.125 MG TABLET PO SCH ×2 (09:36→21:53)
[2018-06-29] MEDS: DIGOXIN 0.125 MG TABLET PO SCH (09:37)
[2018-06-29] MEDS: CYCLOSPORINE 0.05% OPH EMULSIO 0.4 ML DROPERETTE OU SCH (09:40)
--- NOTE | 2018-06-29 11:22 | PDOC PROGRESS REPORT ---
Subjective Progress Note for:: 06/29/18 Subjective:: This is a 62-year-old male with a past medical history of CAD, prior CABG, COPD, diet-controlled DM, chronic systolic heart failure from ischemic cardiomyopathy with prior AICD placement, chronic respiratory failure on home O2, history of CVA with residual partial expressive aphasia who initially presented with increasing shortness of breath and leg swelling. Patient was admitted for CHF exacerbation. Patient has partial expressive aphasia (has some residual slurring and pauses) but is coherent and is able to converse with provider. He says his SOB is at baseline but he becomes short of breath when lying supine. He has been having persistent orthopnea. 05/13: Discussed in length again this morning with caregiver (Nuria) and patient. We discussed the need for thoracentesis again this morning including the indication due to his persistent orthopnea and significant bilateral pleural effusion. Also discussed the small risk of pneumothorax. Patient did agree undergo thoracentesis as he has been having patient orthopnea. Patient is oriented to person, place and situation. Also discussed with case planner on bedside about possible option to be transferred to a [facility] in [place] as patient is a his history of placement and disposition. He does not want to be transferred at this time and would prefer to stay here. 05/14: Patient does appear to have into capacity to make his own medical decisions. Patient was also evaluated by psych who deemed the same. Discussed in length again today about plan and disposition. Patient says he does not want to go to a correction or rehab. He also does not want to talk about his CODE STATUS and says that he will "sort it out" later. Offered palliative care consult and he is receptive to it but not hospice. He says his breathing has improved after the thoracentesis. [place] Sewer recommended BiPAP at home. Patient is resistant on using BiPAP at home but agrees to try it here while inpatient and see if he tolerates it. 05/15: Upon encounter this morning, patient was sleeping on the recliner. Patient says that his house is not fixed yet. He says he does not want to go to any of the surrounding SNF/rehab facilities at this time but is agreeable to being transferred to the [facility] in [place]. Convinced on trying the BiPAP and he says he will try wearing it. 05/16: No acute event overnight. Patient has complied with BIPAP. He says his breathing has slightly improved but still has orthopnea. Denies chest pain or dizziness. 05/17: Patient says his breathing has improved and he feels better today. He says he can use the BIPAP for 2 hrs but is willing to try to extend it to 3-4 hrs today. 05/18: Patient only used BIPAP for 1.5 hrs last night. Upon encounter, he does say that he breathes and feels better when on BIPAP. He was advised on increas ing his BIPAP use again today. He denies worsening SOB or chest pain. Still awaiting for update on transfer to [facility] in [facility]. Patient has remained stable with no acute issues in the interim and has just been waiting for placement. 05/26/18: He has been more complaint with BIPAP. He denies acute SOB and feels like he is at his baseline. 05/27/18: No acute event overnight. He did complaint of transient chest tightness this morning after he ate a big breakfast (ham and omelet). He says it only lasted for a few seconds. EKG was negative for acute changes. 05/28/18: No acute event. No acute symptoms, no chest pain or SOB. He is at his baseline. 05/29/18: No acute event. Patient denies any acute complaint. Updated by RN and case planner that patient's house will be condemned due to multiple issues. 05/30/18: No acute issues. Patient is still awaiting placement. 05/31/18:Patient is still awaiting placement. Discussed with Eryn on bedside, patient's director sales and trade marketing who says she is getting her new house soon and may be able to have patient live with her. 06/09/18: Reassumed care today. No acute issues in the interim. Patient still here due to placement issues. Apparently, his director sales and trade marketing's house was not ready yet. He is at his baseline and denies chest pain or SOB at the moment. 06/13/18: No acute issues. Denies chest pain or SOB. Discussed on bedside with Eryn (director sales and trade marketing) today who says they are still doing repairs for a leakage at her house. Patient has remained stable with no acute issues in the interim and is still waiting for placement. 06/23/18: Reassumed care today. No acute issues. 06/24/18: No acute issues. He denies acute complaints. Still awaiting placement. [facility] 06/25/18: Patient reportedly tripped last night but did not fall on the floor. Otherwise, he denies acute complaints. 06/26: No acute event overnight. He is asleep upon encounter. When he woke up, he complains of heartburn. He says it is not chest pain but more of a burning sensation on the chest which he had in the past. He was given a GI cocktail which completely resolved his heartburn. 06/27: No acute event overnight. Denies chest pain or SOB. No recurrence of heartburn. He does say he continues to have intermittent pain on the left hand joints and right foot. He says he has a history of gouty arthritis. Will add low dose prednisone. 06/28: No acute event overnight. Re evaluated by pulmonology yesterday and repeat CXR was ordered which showed stable changes, no worsening of pleural effusion. He says his hand and right foot joint pains improved with the prednisone. Denies chest pain or SOB. He says Eryn told him, the house may be ready by Friday (06/30). 06/29: No acute issues. Denies SOB or chest pain. Still awaiting placement. Reason For Visit: CHF Physical Exam Vital Signs: Temp Pulse Resp BP Pulse Ox 97.2 F 95 22 H 119/76 99 06/29/18 08:06 06/29/18 08:06 06/29/18 08:06 06/29/18 08:06 06/29/18 08:06 Intake & Output 06/28/18 06/29/18 06/30/18 06:59 06:59 06:59 Intake Total 1032 1122 Output Total 1245 1065 Balance -213 57 General appearance: PRESENT: no acute distress, well-developed, well-nourished Head exam: PRESENT: atraumatic, normocephalic Eye exam: PRESENT: conjunctiva pink, EOMI, PERRLA. ABSENT: scleral icterus Ear exam: PRESENT: normal external ear exam Mouth exam: PRESENT: moist, tongue midline Neck exam: ABSENT: carotid bruit, JVD, lymphadenopathy, thyromegaly Respiratory exam: PRESENT: decreased breath sounds - dec BS on the bases, unchanged. ABSENT: rales, rhonchi, wheezes Cardiovascular exam: PRESENT: systolic murmur. ABSENT: bradycardia Pulses: PRESENT: normal dorsalis pedis pul GI/Abdominal exam: PRESENT: normal bowel sounds, soft. ABSENT: distended, guarding, mass, organolmegaly, rebound, tenderness Rectal exam: PRESENT: deferred Neurological exam: PRESENT: alert, awake, oriented to person, oriented to place, oriented to time, oriented to situation Results Laboratory Results: 06/03/18 08:12 06/27/18 10:30 05/11/18 05/11/18 05/11/18 09:35 09:35 09:35 Creatine Kinase 37 L CK-MB (CK-2) Troponin I 0.071 NT-Pro-B Natriuret Pep 6800 H 05/11/18 05/11/18 05/12/18 12:30 19:00 01:06 Creatine Kinase CK-MB (CK-2) Troponin I 0.067 0.064 0.050 NT-Pro-B Natriuret Pep 05/23/18 05/24/18 05/27/18 10:36 09:38 10:01 Creatine Kinase CK-MB (CK-2) Troponin I 0.060 NT-Pro-B Natriuret Pep 819 889 06/03/18 06/08/18 06/08/18 08:12 13:40 13:40 Creatine Kinase 39 L CK-MB (CK-2) 1.92 Troponin I 0.060 NT-Pro-B Natriuret Pep 1420 H 06/08/18 06/08/18 06/09/18 19:03 19:03 00:59 Creatine Kinase 36 L 34 L CK-MB (CK-2) 1.75 Troponin I 0.058 NT-Pro-B Natriuret Pep 06/09/18 06/09/18 06/09/18 00:59 08:04 08:04 Creatine Kinase 32 L CK-MB (CK-2) 1.58 1.79 Troponin I 0.063 0.064 NT-Pro-B Natriuret Pep 06/09/18 06/09/18 06/09/18 12:52 12:52 19:00 Creatine Kinase 46 L 31 L CK-MB (CK-2) 1.99 Troponin I 0.051 NT-Pro-B Natriuret Pep 06/09/18 06/25/18 19:00 07:35 Creatine Kinase CK-MB (CK-2) 1.80 Troponin I 0.072 0.054 NT-Pro-B Natriuret Pep Impressions: Thoracentesis Ultrasound 05/13/18 10:06 IMPRESSION: SUCCESSFUL THORACENTESIS USING ULTRASOUND GUIDANCE. Chest X-Ray 06/27/18 21:30 IMPRESSION: No significant change. Assessment & Plan - Diagnosis (1) Acute and chronic respiratory failure with hypoxia Is this a current diagnosis for this admission?: Yes Plan: Secondary to CHF exacerbation. On 2L via NC. Continue BIPAP at night. (2) Acute on chronic systolic (congestive) heart failure Is this a current diagnosis for this admission?: Yes Plan: Combined systolic and diastolic biventricular failure. Continue Lasix 40 mg daily. Cardiology following. Echo shows an EF of 30-35%, grade 2 diastolic dysfunction and dilated left and right ventricular. Patient already has an AICD. Patient is not on UZMA inhibitor hence is not on optimal medical therapy. CHF medication regimen cannot be optimized as patient has had angioedema from captopril before. Both UZMA inhibitors and Entresto will be contraindicated to a history of ACEi-associated angioedema. Discussed with cardio and pulm. Recommendation for BIPAP at home/discharge for his biventricular heart failure and significant pulmonary hypertension. Continue Coreg. Aldactone discontinued as patient did have recurrence of hyperkalemia when it was resumed. 06/11/18: Creatinine trended up to 1.5. Decreased Lasix to 20 mg daily today. 06/13/18: Creatinine has improved down to 1.2. Will increase Lasix back to 40 mg daily as his Aldactone was also d/raghav due to hyperkalemia. 06/15/18: Creatinine trended up to 1.4 again after increasing Lasix back to 40 mg daily. Reduce down to home dose of 20 mg daily. 2: Creatinine at baseline. Continue Lasix 20 mg daily. (3) Pleural effusion Is this a current diagnosis for this admission?: Yes Plan: S/P right sided thoracentesis (750 cc) on 12/19/18. Pleural fluid analysis is c onsistent with transudative effusion likely related to patient's CHF. Chest x- ray after thoracentesis did show improvement in aeration of the right lower lung salazar. Re-evaluated by pulmonology last night, repeat CXR ordered which showed stable changes, no worsening of pleural effusion. (4) CAD (coronary artery disease) Is this a current diagnosis for this admission?: Yes Plan: Stable. Continue aspirin, statin and beta steve. (5) Hyperkalemia Is this a current diagnosis for this admission?: Yes Plan: Resolved after discontinuing Aldactone. Potassium today trended up to 5.6. Will recheck another BMP tomorrow. Aldactone will be indefinitely discontinued as he has consistently developed recurrence of hyperkalemia with Aldactone. 06/23: He was given a dose of Patiromer. 06/25: Resolved. (6) DEANNA (acute kidney injury) Is this a current diagnosis for this admission?: Yes Plan: Improved but creatinine trended up again after increasing Lasix to 40 mg daily. Reduce back down to 20 mg Lasix daily. Repeat BMP tomorrow. Creatinine at baseline of 1.2. (7) Gouty arthritis Is this a current diagnosis for this admission?: Yes Plan: Improved with prednisone. - Time Time Spent with patient: 25-34 minutes
[2018-06-29] MEDS: INSULIN LISPRO 100 UNIT/ML 3 ML VIAL SUBCUT SCH ×4 (12:29→21:53)
[2018-06-29] MEDS: TRAMADOL HCL 50 MG TABLET PO PRN ×2 (13:15→21:54)
[2018-06-29] MEDS: ROPINIROLE HCL 0.25 MG TABLET PO SCH (21:53)
[2018-06-30] MEDS: INSULIN LISPRO 100 UNIT/ML 3 ML VIAL SUBCUT SCH (08:57)
[2018-06-30] MEDS: TRAMADOL HCL 50 MG TABLET PO PRN (08:58)
[2018-06-30] MEDS: ASPIRIN 81 MG TABLET, CHEWABLE PO SCH (09:49)
[2018-06-30] MEDS: DOCUSATE SODIUM 100 MG CAPSULE PO SCH ×2 (09:49→17:32)
[2018-06-30] MEDS: PREDNISONE 10 MG TABLET PO SCH ×2 (09:49→17:32)
[2018-06-30] MEDS: LANSOPRAZOLE 30 MG TAB.RAP.DR PO SCH ×2 (09:49→17:32)
[2018-06-30] MEDS: FUROSEMIDE 20 MG TABLET PO SCH (09:49)
[2018-06-30] MEDS: DIGOXIN 0.125 MG TABLET PO SCH (09:50)
[2018-06-30] MEDS: ACETAMINOPHEN 325 MG TABLET PO SCH ×4 (09:50→21:53)
[2018-06-30] MEDS: GABAPENTIN 100 MG CAPSULE PO SCH ×4 (09:50→21:52)
[2018-06-30] MEDS: CARVEDILOL 3.125 MG TABLET PO SCH ×2 (09:50→21:52)
[2018-06-30] MEDS: CYCLOSPORINE 0.05% OPH EMULSIO 0.4 ML DROPERETTE OU SCH (09:51)
--- NOTE | 2018-06-30 12:35 | PDOC PROGRESS REPORT ---
Subjective Progress Note for:: 06/30/18 Subjective:: This is a 62-year-old male with a past medical history of CAD, prior CABG, COPD, diet-controlled DM, chronic systolic heart failure from ischemic cardiomyopathy with prior AICD placement, chronic respiratory failure on home O2, history of CVA with residual partial expressive aphasia who initially presented with increasing shortness of breath and leg swelling. Patient was admitted for CHF exacerbation. Patient has partial expressive aphasia (has some residual slurring and pauses) but is coherent and is able to converse with provider. He says his SOB is at baseline but he becomes short of breath when lying supine. He has been having persistent orthopnea. 05/13: Discussed in length again this morning with caregiver (Nuria) and patient. We discussed the need for thoracentesis again this morning including the indication due to his persistent orthopnea and significant bilateral pleural effusion. Also discussed the small risk of pneumothorax. Patient did agree undergo thoracentesis as he has been having patient orthopnea. Patient is oriented to person, place and situation. Also discussed with senior materials planner on bedside about possible option to be transferred to a [facility] in [place] as patient is a his history of placement and disposition. He does not want to be transferred at this time and would prefer to stay here. 05/14: Patient does appear to have into capacity to make his own medical decisions. Patient was also evaluated by psych who deemed the same. Discussed in length again today about plan and disposition. Patient says he does not want to go to a assisted or rehab. He also does not want to talk about his CODE STATUS and says that he will "sort it out" later. Offered palliative care consult and he is receptive to it but not hospice. He says his breathing has improved after the thoracentesis. [employer] recommended BiPAP at home. Patient is resistant on using BiPAP at home but agrees to try it here while inpatient and see if he tolerates it. 05/15: Upon encounter this morning, patient was sleeping on the recliner. Patient says that his house is not fixed yet. He says he does not want to go to any of the surrounding SNF/rehab facilities at this time but is agreeable to being transferred to the [facility] in [place]. Convinced on trying the BiPAP and he says he will try wearing it. 05/16: No acute event overnight. Patient has complied with BIPAP. He says his breathing has slightly improved but still has orthopnea. Denies chest pain or dizziness. 05/17: Patient says his breathing has improved and he feels better today. He says he can use the BIPAP for 2 hrs but is willing to try to extend it to 3-4 hrs today. 05/18: Patient only used BIPAP for 1.5 hrs last night. Upon encounter, he does say that he breathes and feels better when on BIPAP. He was advised on increa sing his BIPAP use again today. He denies worsening SOB or chest pain. Still awaiting for update on transfer to [facility] in [facility]. 05/19/2018-no acute events in the last 24 hours as per the patient he is using BiPAP 3-4 hours a day. He is comfortably in the chair on oxygen via nasal tom kurt. Denies any problems. Waiting for placement in [facility]. 05/20/2018-no acute events in the last 24 hours. Patient is on oxygen via nasal cannula walking in the room. Denies any complaints. Using BiPAP 4 hours a day. Patient is waiting for placement at [facility]. 05/21/2018 no acute events in the last 24 hours. Patient is complaining of pain in both arms. I am going to put him on Percocet 09/25/2024 every 8 as needed for pain. Patient is on 2 L nasal cannula pulse ox is 96%. He is using BiPAP 4 hours a day. 05/22/2018-no acute events over the last 24 hours. Patient is afebrile. Patient is complaining of dry skin and itching he wants some Benadryl. 05/23/2018 no acute events in the last 24 hours. His BiPAP requirements are decreased. Patient is afebrile. His pulse ox is 99% on 2 L. Notably sitting in the bed communicating okay. 05/24/2018 -no acute events in the last 24 hours. Patient pulse oxes 99% on 2 L. Is comfortably sleeping in his chair. Denies any complaints. 05/25/2018-no acute events in the last 24 hours. Pulse ox is 100% on 2 L. He is comfortable in the chair communicating very well. Denies any complaints. [facility] 05/26/18: He has been more complaint with BIPAP. He denies acute SOB and feels like he is at his baseline. 05/27/18: No acute event overnight. He did complaint of transient chest tightness this morning after he ate a big breakfast (ham and omelet). He says it only lasted for a few seconds. EKG was negative for acute changes. 05/28/18: No acute event. No acute symptoms, no chest pain or SOB. He is at his baseline. 05/29/18: No acute event. Patient denies any acute complaint. Updated by RN and senior materials planner that patient's house will be condemned due to multiple issues. 05/30/18: No acute issues. Patient is still awaiting placement. 05/31/18:Patient is still awaiting placement. Discussed with Eryn on bedside, patient's solid waste landfill technician who says she is getting her new house this friday and may be able to have patient live with her. 06/01/18: No acute issues. Plan to discharge patient to her solid waste landfill technician's new house later this week with home health. Acute Care Assistant says she is confident she is able to take care of him at her new house. Patient also prefers discussed disposition. 06/02/2018-patient is afebrile no acute events in the last 24 hours patient waiting to go to caretakers home. 06/03/2018 no acute events in last 24 hours. Patient is comfortable in the chair talking to the family members on the phone. Denies any complaints. 06/04/2018-no acute events in the last 24 hrs. afebrile .pulse ox 98% on 2lts. 06/05/2018-no acute events in the last 24 hours. Patient is afebrile. Pulse ox is 99% on 2 L. 06/06/2018-no acute events in the last 24 hours. Patient is afebrile. Comfortably in the chair sleeping. Denies any complaints. 06/07/2018 patient is afebrile and doing well no complaints no acute events in the last 24 hours. 2018 has saw the patient this morning is comfortably in the chair complaining of left hand pain resting pain medications. His pulse ox are stable. Afebrile. Few minutes ago nurse planning consultant Spencer called me to notify that patient is complaining of chest pains vital signs are stable pulse ox is normal so I requested him to do the EKG and cardiac enzymes x3 along with nitroglycerin 0.5 mg subcu every 5 minutes as needed for chest pain. 06/09/18: Reassumed care today. No acute issues in the interim. Patient still here due to placement issues. Apparently, his solid waste landfill technician's house was not ready yet. He is at his baseline and denies chest pain or SOB at the moment. 06/13/18: No acute issues. Denies chest pain or SOB. Discussed on bedside with Eryn (solid waste landfill technician) today who says they are still doing repairs for a leakage at her house. Patient has remained stable with no acute issues in the interim and is still waiting for placement. 06/23/18: Reassumed care today. No acute issues. 06/24/18: No acute issues. He denies acute complaints. Still awaiting placement. [facility] 06/25/18: Patient reportedly tripped last night but did not fall on the floor. Otherwise, he denies acute complaints. 2: No acute event overnight. He is asleep upon encounter. When he woke up, he complains of heartburn. He says it is not chest pain but more of a burning sen sation on the chest which he had in the past. He was given a GI cocktail which completely resolved his heartburn. 2: No acute event overnight. Denies chest pain or SOB. No recurrence of heartburn. He does say he continues to have intermittent pain on the left hand joints and right foot. He says he has a history of gouty arthritis. Will add low dose prednisone. 23: No acute event overnight. Re evaluated by pulmonology yesterday and repeat CXR was ordered which showed stable changes, no worsening of pleural effusion. He says his hand and right foot joint pains improved with the prednisone. Denies chest pain or SOB. He says Eryn told him, the house may be ready by Friday (06/30). 06/29: No acute issues. Denies SOB or chest pain. Still awaiting placement. 06/30/2018 no acute events in the last 24 hours. Patient is afebrile. Patient is complaining of left foot pain and hand pain. He has history of gout. Be going to check his uric acid level, started him on allopurinol 100 mg p.o. twice daily and switched tramadol to Percocet every 6 as needed for pain. Reason For Visit: CHF Physical Exam Vital Signs: Temp Pulse Resp BP Pulse Ox 97.9 F 91 22 H 119/77 100 06/30/18 08:00 06/30/18 08:00 06/30/18 08:00 06/30/18 08:00 06/30/18 08:00 Intake & Output 06/29/18 06/30/18 07/01/18 06:59 06:59 06:59 Intake Total 1122 685 Output Total 1065 850 Balance 57 -165 Weight 86.6 kg General appearance: PRESENT: no acute distress Head exam: PRESENT: atraumatic Eye exam: PRESENT: PERRLA Neck exam: ABSENT: carotid bruit, JVD, lymphadenopathy, thyromegaly Respiratory exam: PRESENT: clear to auscultation rahul. ABSENT: rales, rhonchi, wheezes Cardiovascular exam: PRESENT: RRR. ABSENT: diastolic murmur, rubs, systolic murmur GI/Abdominal exam: PRESENT: normal bowel sounds, soft. ABSENT: distended, guarding, mass, organolmegaly, rebound, tenderness Extremities exam: PRESENT: full ROM. ABSENT: calf tenderness, clubbing, pedal edema Neurological exam: PRESENT: alert, awake, oriented to person, oriented to place, oriented to time, oriented to situation, CN II-XII grossly intact. ABSENT: motor sensory deficit Psychiatric exam: PRESENT: appropriate affect, normal mood. ABSENT: homicidal ideation, suicidal ideation Results Laboratory Results: 06/03/18 08:12 06/27/18 10:30 05/11/18 05/11/18 05/11/18 09:35 09:35 09:35 Creatine Kinase 37 L CK-MB (CK-2) Troponin I 0.071 NT-Pro-B Natriuret Pep 6800 H 05/11/18 05/11/18 05/12/18 12:30 19:00 01:06 Creatine Kinase CK-MB (CK-2) Troponin I 0.067 0.064 0.050 NT-Pro-B Natriuret Pep 05/23/18 05/24/18 05/27/18 10:36 09:38 10:01 Creatine Kinase CK-MB (CK-2) Troponin I 0.060 NT-Pro-B Natriuret Pep 819 889 06/03/18 06/08/18 06/08/18 08:12 13:40 13:40 Creatine Kinase 39 L CK-MB (CK-2) 1.92 Troponin I 0.060 NT-Pro-B Natriuret Pep 1420 H 06/08/18 06/08/18 06/09/18 19:03 19:03 00:59 Creatine Kinase 36 L 34 L CK-MB (CK-2) 1.75 Troponin I 0.058 NT-Pro-B Natriuret Pep 06/09/18 06/09/18 06/09/18 00:59 08:04 08:04 Creatine Kinase 32 L CK-MB (CK-2) 1.58 1.79 Troponin I 0.063 0.064 NT-Pro-B Natriuret Pep 06/09/18 06/09/18 06/09/18 12:52 12:52 19:00 Creatine Kinase 46 L 31 L CK-MB (CK-2) 1.99 Troponin I 0.051 NT-Pro-B Natriuret Pep 06/09/18 06/25/18 19:00 07:35 Creatine Kinase CK-MB (CK-2) 1.80 Troponin I 0.072 0.054 NT-Pro-B Natriuret Pep Impressions: Thoracentesis Ultrasound 05/13/18 10:06 IMPRESSION: SUCCESSFUL THORACENTESIS USING ULTRASOUND GUIDANCE. Chest X-Ray 06/27/18 21:30 IMPRESSION: No significant change. Assessment & Plan - Diagnosis (1) Acute and chronic respiratory failure with hypoxia Is this a current diagnosis for this admission?: Yes Plan: 05/19/2018 acute on chronic respiratory failure with hypoxia probably secondary to CHF exacerbation. He is on BiPAP for 3-4 hours/day. Plan is to continue the current management. 05/20/2018-patient was admitted for acute on chronic respiratory failure with hypoxia probably secondary to CHF exacerbation. He is using BiPAP 4 hours a day. No acute events in the last 24 hours. Plan is to continue the present management. 05/21/2018-patient is comfortably in the chair on 2 L oxygen via nasal cannula. Acute on chronic respiratory failure resolved with hypoxia resolved. Is awaiting for placement in [facility]. 05/22/2018-pulse ox on 2 L is 100% today. Patient is comfortably in the chair. Only complaint is his complaint of dry skin and itching. [facility] He is using BiPAP 3-4 hours a day. His acute on chronic respiratory failure with hypoxia probably secondary to CHF exacerbation. I am going to recheck his BMP tomorrow. Pt is not in fluid overload today. 05/23/2018 pulse ox on 2 L is 99% patient is able to walk in the hallway on 2 L oxygen without any problems. He did not have need to use the BiPAP in the last 24 hours. He has been BNP is around 820. no Signs of any fluid overload. Plan is to continue the present management. 05/24/2018 patient was admitted for acute on chronic respiratory failure with hypoxia hypoxia resolved. Patient is not on BiPAP anymore. Pulse ox is pulse ox is 91% on 2 L. Patient waiting for placement in [place]. 05/25/2018-2 L oxygen pulse ox 100% hypoxia with acute respiratory failure resolved patient is not using the BiPAP anymore. He is waiting for placement at [facility]. 06/02/2017-pulse ox on 2 L is 97% today. Using the BiPAP on and off. Waiting waiting to go to [facility] probably on Friday. The meantime will continue the present management. 06/03/2018-patient pulse ox is 99% on 2 L. He is using the BiPAP on and off. No complaints from the patient. Plan is to discharge him to [facility] on Friday. 06/04/2018-pulse ox is 100% on 2lts.using BIPAP on and off. no complaints. comfortable in chair eating lunch. 06/05/2018 pulse ox is 99% on 2 L. Not using the BiPAP at this time. Comfortably in the chair communicating well. Waiting for the placement. 06/06/2018-pulse ox on 2 L is 99%. Patient is not using the BiPAP anymore. He acute on chronic respiratory failure with hypoxia and hypercapnia resolved. 06/08/2018-pulse ox is 100% on 2 L. Patient is not on BiPAP anymore. Acute on chronic respiratory failure with hypoxia and hypercapnia resolved. 06/07/2018 patient pulse oxes are 98% on 2 L patient is off the BiPAP right now acute on chronic respiratory failure with hypoxia and hypercapnia resolved patient waiting for placement at the caretakers home. 06/30/2018-patient was admitted with acute on chronic respiratory failure hypoxia probably secondary to CHF exacerbation. Pulse oxes 100% on 2 L. Using BiPAP at night. Plan is to continue the present management. (2) Acute on chronic systolic (congestive) heart failure Is this a current diagnosis for this admission?: Yes Plan: Combined systolic and diastolic biventricular failure. Continue Lasix 40 mg daily. Cardiology following. Echo shows an EF of 30-35%, grade 2 diastolic dy sfunction and dilated left and right ventricular. Patient already has an AICD. Patient is not on UZMA inhibitor hence is not on optimal medical therapy. CHF medication regimen cannot be optimized as patient has had angioedema from captopril before. Both UZMA inhibitors and Entresto will be contraindicated to a history of ACEi-associated angioedema. Discussed with cardio and pulm. Recommendation for BIPAP at home/discharge for his biventricular heart failure and significant pulmonary hypertension. Continue Coreg and Aldactone. 05/16/18: Decreased Lasix to 40 mg IV daily from q12 due to alkalosis. 05/19/2018-patient has history of congestive heart failure. Which is combined systolic diastolic biventricular failure. Patient is on Lasix 40 mg IV twice daily. cardiology on board. EF is 30-35%. Grade 2 diastolic dysfunction and dilated left and right ventricular chambers. Patient has AICD. Patient is not on UZMA inhibitors because of history of angioedema. UZMA inhibitors and Entresto are not contraindicated because of the ACEi associated angioedema. Patient is also on Coreg and Aldactone. And is to discharge him to [place] on BiPAP. 05/20/2018-has a combined systolic diastolic biventricular failure. EF is 30- 35%. Echocardiogram shows grade 2 diastolic dysfunction and dilated left and right ventricular chambers. Patient has AICD. Patient is not on UZMA inhibitors because of history of angioedema. Stoped Aldactone today because potassium is 5.1. 05/21/2018-patient has history of congestive heart failure combined systolic diastolic biventricular failure with EF of 30-35%. Patient is allergic to UZMA inhibitors gives angioedema. Latest potassium is 5.1. We are going to check his potassium levels today. Yesterday I stopped his spironolactone and we stopped potassium supplementation. 05/22/2018-his latest potassium is 5.0 potassium supplementation was discon tinued spironolactone was discontinued, has EF is 30-35%. Patient is not in fluid overload I am going to follow the patient regular basis. 05/23/2018-potassium level is 5.0 stable patient ejection fraction is 30-45%. Patient has combined systolic diastolic biventricular heart failure. He has A ICD. And is to continue the present management. 05/24/2018-patient's has a biventricular systolic and diastolic heart failure with EF of 35-40%. Patient has AICD. He is on Lasix 40 IV daily I am going to switch her to 40 mg p.o. daily. 05/25/2018-patient is not in fluid overload chest was clear no pedal edema. He has biventricular systolic/diastolic heart failure with EF of 35-40%. He is on Lasix.Combined systolic and diastolic biventricular failure. Continue Lasix 40 mg daily. Cardiology following. Echo shows an EF of 30-35%, grade 2 diastolic dysfunction and dilated left and right ventricular. Patient already has an AICD. Patient is not on UZMA inhibitor hence is not on optimal medical therapy. CHF medication regimen cannot be optimized as patient has had angioedema from cap topril before. Both UZMA inhibitors and Entresto will be contraindicated to a history of ACEi-associated angioedema. Discussed with cardio and pulm. Recommendation for BIPAP at home/discharge for his biventricular heart failure and significant pulmonary hypertension. Continue Coreg. Aldactone was d/raghav due to his potassium trending up. Aldactone resumed. Continue Lasix 40 mg daily. 06/02/2017-patient has combined systolic and diastolic biventricular failure he is on Lasix 40 mg p.o. daily and also on Aldactone. Patient is not in fluid overload. And is to continue the present management. 06/03/2017 patient has history of combined systolic diastolic biventricular failure on Lasix 40 mg p.o. daily and is also on Aldactone potassium levels going back up again it was 5.2 today I am going to stop the Aldactone and and follow the potassium levels. 06/04/2018-pt is not in fluid overload. plan to continue present treatment. 06/05/2018-patient has history of for combined systolic/diastolic biventricular failure on Lasix 40 mg p.o. daily Aldactone was discontinued because of the persistently elevated potassium levels. Potassium level today is 3.7. 06/06/2018-patient has a biventricular heart failure with EF of less than 30% patient is not in fluid overload. Plan is to continue the present management. 06/08/2018-patient has history of heart failure with EF of less than 30% patient is not in fluid overload. He has AICD. 06/07/2018 patient has history of biventricular heart failure with EF of less than 30% patient is not in fluid overload plan is to continue the present management. 06/30/2018-patient has history of combined systolic diastolic biventricular heart failure. Cardiology consult was done echocardiogram shows EF of 30-35% grade 2 diastolic dysfunction and dilated left and right heart ventricules. Patient is presently on Lasix 20 mg p.o. daily. Not in fluid overload. Plan is to check a BNP and labs tomorrow. (3) Pleural effusion Is this a current diagnosis for this admission?: Yes Plan: 05/19/2018-patient came in with a right-sided pleural effusion status post thoracentesis on 05/13/2018 with removal of 750 cc of fluid. Fluid analysis consistent with transudate. Which is likely secondary to CHF. Negative for infection. 05/20/2018-patient came in with right pleural effusion status post thoracentesis on 05/13/2018. The cultures are negative. 05/21/2018 status post thoracentesis of right pleural effusion 750 cc of fluid was removed. cultures Negative. 05/23/2018 during this hospital stay he had a right-sided thoracentesis. And 750 cc of fluid was removed. I am going to redo the chest x-ray today. 05/25/2018-status post right-sided thoracentesis. On examination decreased air entry at the right base. Probably persistent pleural effusion. 06/12/2017 status post right-sided thoracentesis with 750 cc of fluid removal on 05/13/2018. Pleural fluid analysis is consistent with transudate to effusion most likely secondary to patient's congestive heart failure. 06/30/2018 latest chest x-ray done on 06/27/2018 shows moderate right pleural effusion. Seen by religion teacher on 06/27/2018. Plan is to continue the present management. He had a right-sided thoracentesis was done on 05/13/2019 with removal of 750 cc of fluid. (4) CAD (coronary artery disease) Is this a current diagnosis for this admission?: Yes Plan: 05/19/2018 patient has history of coronary artery disease. No complaints of any chest pains in the last 24-48 hours. Patient is on statins, aspirin, beta- blockers. Plan is to continue the present management. 05/20/2018 patient history of coronary artery disease. No complaints of any chest pains during the hospital stay. 05/21/2018 plan is to continue the current management. 05/22/2018 patient is on statins aspirin and beta-blockers no complaints of chest pain. Plan is to continue the present management. 05/23/2018-plan is to continue the present management patient is asymptomatic. 09/22/2017-patient has history of coronary artery disease, no complaints of chest pain during the hospital stay. 06/03/2018-patient has history of coronary artery disease no complaints of chest pain during the hospital stay. 06/04/2018- to continue present rx 06/08/2018 patient has history of coronary artery disease status post stent placement. Today he is complaining of chest pains requested for stat EKG cardiac enzymes x3. plan to start on nitroglycerin 0.4 mg every 5 minutes as needed for chest pain. 06/30/2018-patient has history of coronary artery disease status post stent placement. He is asymptomatic during the hospital stay. Presently is on aspirin, statin and beta-steve. Plan is to continue the present management. (5) Hyperkalemia Is this a current diagnosis for this admission?: Yes Plan: Potassium level on 06/28/2018 is 5.4. He was off the Aldactone. Plan is to check a CMP today. If the potassium is still high I am going to put him on Kayexalate. (6) DEANNA (acute kidney injury) Is this a current diagnosis for this admission?: Yes Plan: 06/30/2018-patient was admitted with acute kidney injury which was resolved. Creatinine latest one is 1.28 at baseline. Presently on Lasix 20 mg p.o. daily. Plan is to check creatinine panel tomorrow. (7) Gouty arthritis Is this a current diagnosis for this admission?: Yes Plan: 06/30/2018-patient has history of gouty arthritis complaining of left foot pain and right hand pain plan is to check his uric acid levels. Started on Percocet 5/25 mg every 6 as needed. To check uric acid levels. Started on allopurinol 100 mg p.o. twice daily. - Time Time Spent with patient: 15-24 minutes Medications reviewed and adjusted accordingly: Yes Anticipated discharge: Home
[2018-06-30 15:02] LABS: ALANINE AMINOTRANSFERASE 24 U/L (21-72); ALBUMIN 4.5 g/dL (3.5-5.0); ALKALINE PHOSPHATASE 92 U/L (38-126); ANION GAP 11 (5-19); ASPARTATE AMINO TRANSFERASE 30 U/L (17-59); BILIRUBIN,DIRECT 0.3 mg/dL (0.0-0.4); BILIRUBIN,TOTAL 0.4 mg/dL (0.2-1.3); BLOOD UREA NITROGEN 35 mg/dL (7-20); CARBON DIOXIDE 35 mmol/L (22-30); CHLORIDE 97 mmol/L (98-107); GLUCOSE 118 mg/dL (75-110); POTASSIUM 5.3 mmol/L (3.6-5.0); SODIUM 142.9 mmol/L (137-145); TOTAL PROTEIN 7.6 g/dL (6.3-8.2); URIC ACID 7.8 mg/dL (3.5-8.5)
[2018-06-30] MEDS: ALLOPURINOL 100 MG TABLET PO SCH (17:32)
[2018-06-30] MEDS: OXYCODONE-ACETAMINOPHEN 5-325 MG TABLET PO PRN (19:59)
[2018-06-30] MEDS: ROPINIROLE HCL 0.25 MG TABLET PO SCH (21:52)
[2018-07-01] MEDS: LANSOPRAZOLE 30 MG TAB.RAP.DR PO SCH ×2 (05:48→18:10)
[2018-07-01] MEDS: ASPIRIN 81 MG TABLET, CHEWABLE PO SCH (09:40)
[2018-07-01] MEDS: DOCUSATE SODIUM 100 MG CAPSULE PO SCH ×2 (09:41→18:10)
[2018-07-01] MEDS: CARVEDILOL 3.125 MG TABLET PO SCH ×2 (09:41→22:43)
[2018-07-01] MEDS: DIGOXIN 0.125 MG TABLET PO SCH (09:41)
[2018-07-01] MEDS: PREDNISONE 10 MG TABLET PO SCH ×2 (09:41→18:10)
[2018-07-01] MEDS: ACETAMINOPHEN 325 MG TABLET PO SCH ×4 (09:41→22:42)
[2018-07-01] MEDS: ALLOPURINOL 100 MG TABLET PO SCH ×2 (09:41→18:10)
[2018-07-01] MEDS: GABAPENTIN 100 MG CAPSULE PO SCH ×4 (09:41→22:43)
[2018-07-01] MEDS: FUROSEMIDE 20 MG TABLET PO SCH (09:41)
[2018-07-01] MEDS: CYCLOSPORINE 0.05% OPH EMULSIO 0.4 ML DROPERETTE OU SCH (09:43)
--- NOTE | 2018-07-01 13:15 | PDOC PROGRESS REPORT ---
Subjective Progress Note for:: 07/01/18 Subjective:: This is a 62-year-old male with a past medical history of CAD, prior CABG, COPD, diet-controlled DM, chronic systolic heart failure from ischemic cardiomyopathy with prior AICD placement, chronic respiratory failure on home O2, history of CVA with residual partial expressive aphasia who initially presented with increasing shortness of breath and leg swelling. Patient was admitted for CHF exacerbation. Patient has partial expressive aphasia (has some residual slurring and pauses) but is coherent and is able to converse with provider. He says his SOB is at baseline but he becomes short of breath when lying supine. He has been having persistent orthopnea. 05/13: Discussed in length again this morning with caregiver (Nuria) and patient. We discussed the need for thoracentesis again this morning including the indication due to his persistent orthopnea and significant bilateral pleural effusion. Also discussed the small risk of pneumothorax. Patient did agree undergo thoracentesis as he has been having patient orthopnea. Patient is oriented to person, place and situation. Also discussed with mission planner on bedside about possible option to be transferred to a [facility] in [place] as patient is a his history of placement and disposition. He does not want to be transferred at this time and would prefer to stay here. 05/14: Patient does appear to have into capacity to make his own medical decisions. Patient was also evaluated by psych who deemed the same. Discussed in length again today about plan and disposition. Patient says he does not want to go to a shelter or rehab. He also does not want to talk about his CODE STATUS and says that he will "sort it out" later. Offered palliative care consult and he is receptive to it but not hospice. He says his breathing has improved after the thoracentesis. Product Ambassador recommended BiPAP at home. Patient is resistant on using BiPAP at home but agrees to try it here while inpatient and see if he tolerates it. 05/15: Upon encounter this morning, patient was sleeping on the recliner. Patient says that his house is not fixed yet. He says he does not want to go to any of the surrounding SNF/rehab facilities at this time but is agreeable to being transferred to the [facility] in [place]. Convinced on trying the BiPAP and he says he will try wearing it. 05/16: No acute event overnight. Patient has complied with BIPAP. He says his breathing has slightly improved but still has orthopnea. Denies chest pain or dizziness. 05/17: Patient says his breathing has improved and he feels better today. He says he can use the BIPAP for 2 hrs but is willing to try to extend it to 3-4 hrs today. 05/18: Patient only used BIPAP for 1.5 hrs last night. Upon encounter, he does say that he breathes and feels better when on BIPAP. He was advised on increa sing his BIPAP use again today. He denies worsening SOB or chest pain. Still awaiting for update on transfer to [facility] in [facility]. 05/19/2018-no acute events in the last 24 hours as per the patient he is using BiPAP 3-4 hours a day. He is comfortably in the chair on oxygen via nasal tom kurt. Denies any problems. Waiting for placement in [facility]. 05/20/2018-no acute events in the last 24 hours. Patient is on oxygen via nasal cannula walking in the room. Denies any complaints. Using BiPAP 4 hours a day. Patient is waiting for placement at [facility]. 05/21/2018 no acute events in the last 24 hours. Patient is complaining of pain in both arms. I am going to put him on Percocet 09/25/2024 every 8 as needed for pain. Patient is on 2 L nasal cannula pulse ox is 96%. He is using BiPAP 4 hours a day. 05/22/2018-no acute events over the last 24 hours. Patient is afebrile. Patient is complaining of dry skin and itching he wants some Benadryl. 05/23/2018 no acute events in the last 24 hours. His BiPAP requirements are decreased. Patient is afebrile. His pulse ox is 99% on 2 L. Notably sitting in the bed communicating okay. 05/24/2018 -no acute events in the last 24 hours. Patient pulse oxes 99% on 2 L. Is comfortably sleeping in his chair. Denies any complaints. 05/25/2018-no acute events in the last 24 hours. Pulse ox is 100% on 2 L. He is comfortable in the chair communicating very well. Denies any complaints. [facility] 05/26/18: He has been more complaint with BIPAP. He denies acute SOB and feels like he is at his baseline. 05/27/18: No acute event overnight. He did complaint of transient chest tightness this morning after he ate a big breakfast (ham and omelet). He says it only lasted for a few seconds. EKG was negative for acute changes. 05/28/18: No acute event. No acute symptoms, no chest pain or SOB. He is at his baseline. 05/29/18: No acute event. Patient denies any acute complaint. Updated by RN and mission planner that patient's house will be condemned due to multiple issues. 05/30/18: No acute issues. Patient is still awaiting placement. 05/31/18:Patient is still awaiting placement. Discussed with Eryn on bedside, patient's bsw who says she is getting her new house this friday and may be able to have patient live with her. 06/01/18: No acute issues. Plan to discharge patient to her bsw's new house later this week with home health. Tai Chi Instructor says she is confident she is able to take care of him at her new house. Patient also prefers discussed disposition. 06/02/2018-patient is afebrile no acute events in the last 24 hours patient waiting to go to caretakers home. 06/03/2018 no acute events in last 24 hours. Patient is comfortable in the chair talking to the family members on the phone. Denies any complaints. 06/04/2018-no acute events in the last 24 hrs. afebrile .pulse ox 98% on 2lts. 06/05/2018-no acute events in the last 24 hours. Patient is afebrile. Pulse ox is 99% on 2 L. 06/06/2018-no acute events in the last 24 hours. Patient is afebrile. Comfortably in the chair sleeping. Denies any complaints. 06/07/2018 patient is afebrile and doing well no complaints no acute events in the last 24 hours. 2018 has saw the patient this morning is comfortably in the chair complaining of left hand pain resting pain medications. His pulse ox are stable. Afebrile. Few minutes ago nurse electronic publishing specialist Spencer called me to notify that patient is complaining of chest pains vital signs are stable pulse ox is normal so I requested him to do the EKG and cardiac enzymes x3 along with nitroglycerin 0.5 mg subcu every 5 minutes as needed for chest pain. 06/09/18: Reassumed care today. No acute issues in the interim. Patient still here due to placement issues. Apparently, his bsw's house was not ready yet. He is at his baseline and denies chest pain or SOB at the moment. 06/13/18: No acute issues. Denies chest pain or SOB. Discussed on bedside with Eryn (bsw) today who says they are still doing repairs for a leakage at her house. Patient has remained stable with no acute issues in the interim and is still waiting for placement. 06/23/18: Reassumed care today. No acute issues. 06/24/18: No acute issues. He denies acute complaints. Still awaiting placement. [facility] 06/25/18: Patient reportedly tripped last night but did not fall on the floor. Otherwise, he denies acute complaints. 2: No acute event overnight. He is asleep upon encounter. When he woke up, he complains of heartburn. He says it is not chest pain but more of a burning sen sation on the chest which he had in the past. He was given a GI cocktail which completely resolved his heartburn. 2: No acute event overnight. Denies chest pain or SOB. No recurrence of heartburn. He does say he continues to have intermittent pain on the left hand joints and right foot. He says he has a history of gouty arthritis. Will add low dose prednisone. 23: No acute event overnight. Re evaluated by pulmonology yesterday and repeat CXR was ordered which showed stable changes, no worsening of pleural effusion. He says his hand and right foot joint pains improved with the prednisone. Denies chest pain or SOB. He says Eryn told him, the house may be ready by Friday (06/30). 06/29: No acute issues. Denies SOB or chest pain. Still awaiting placement. 06/30/2018 no acute events in the last 24 hours. Patient is afebrile. Patient is complaining of left foot pain and hand pain. He has history of gout. Be going to check his uric acid level, started him on allopurinol 100 mg p.o. twice daily and switched tramadol to Percocet every 6 as needed for pain. 04/30/2019 no acute events in the last 24 hours. Patient is afebrile. Patient is complaining of left foot pain and right hand pain yesterday uric acid levels were done uric acid level 7.8 within normal limits. He was started on allopurinol and the patient states is not helping him at all. Reason For Visit: CHF Physical Exam Vital Signs: Temp Pulse Resp BP Pulse Ox 98.4 F 93 18 112/61 100 07/01/18 12:00 07/01/18 12:00 07/01/18 12:00 07/01/18 12:00 07/01/18 12:00 Intake & Output 06/30/18 07/01/18 07/02/18 06:59 06:59 06:59 Intake Total 685 1777 Output Total 850 1470 100 Balance -165 307 -100 Weight 86.6 kg General appearance: PRESENT: no acute distress Head exam: PRESENT: atraumatic Eye exam: PRESENT: PERRLA Mouth exam: PRESENT: moist, tongue midline Neck exam: ABSENT: carotid bruit, JVD, lymphadenopathy, thyromegaly Respiratory exam: PRESENT: decreased breath sounds Cardiovascular exam: PRESENT: RRR. ABSENT: diastolic murmur, rubs, systolic murmur GI/Abdominal exam: PRESENT: normal bowel sounds, soft. ABSENT: distended, guarding, mass, organolmegaly, rebound, tenderness Extremities exam: PRESENT: full ROM. ABSENT: calf tenderness, clubbing, pedal edema Neurological exam: PRESENT: alert, awake, oriented to person, oriented to place, oriented to time, oriented to situation, CN II-XII grossly intact. ABSENT: mo tor sensory deficit Psychiatric exam: PRESENT: appropriate affect, normal mood. ABSENT: homicidal ideation, suicidal ideation Results Laboratory Results: 06/03/18 08:12 06/30/18 13:51 06/30/18 13:51 Sodium 142.9 Potassium 5.3 H Chloride 97 L Carbon Dioxide 35 H Anion Gap 11 BUN 35 H Creatinine 1.38 H Est GFR ( Amer) > 60 Est GFR (Non-Af Amer) 52 L Glucose 118 H Uric Acid 7.8 Calcium 9.0 Total Bilirubin 0.4 AST 30 ALT 24 Alkaline Phosphatase 92 Total Protein 7.6 Albumin 4.5 05/11/18 05/11/18 05/11/18 09:35 09:35 09:35 Creatine Kinase 37 L CK-MB (CK-2) Troponin I 0.071 NT-Pro-B Natriuret Pep 6800 H 05/11/18 05/11/18 05/12/18 12:30 19:00 01:06 Creatine Kinase CK-MB (CK-2) Troponin I 0.067 0.064 0.050 NT-Pro-B Natriuret Pep 05/23/18 05/24/18 05/27/18 10:36 09:38 10:01 Creatine Kinase CK-MB (CK-2) Troponin I 0.060 NT-Pro-B Natriuret Pep 819 889 06/03/18 06/08/18 06/08/18 08:12 13:40 13:40 Creatine Kinase 39 L CK-MB (CK-2) 1.92 Troponin I 0.060 NT-Pro-B Natriuret Pep 1420 H 06/08/18 06/08/18 06/09/18 19:03 19:03 00:59 Creatine Kinase 36 L 34 L CK-MB (CK-2) 1.75 Troponin I 0.058 NT-Pro-B Natriuret Pep 06/09/18 06/09/18 06/09/18 00:59 08:04 08:04 Creatine Kinase 32 L CK-MB (CK-2) 1.58 1.79 Troponin I 0.063 0.064 NT-Pro-B Natriuret Pep 06/09/18 06/09/18 06/09/18 12:52 12:52 19:00 Creatine Kinase 46 L 31 L CK-MB (CK-2) 1.99 Troponin I 0.051 NT-Pro-B Natriuret Pep 06/09/18 06/25/18 19:00 07:35 Creatine Kinase CK-MB (CK-2) 1.80 Troponin I 0.072 0.054 NT-Pro-B Natriuret Pep Impressions: Thoracentesis Ultrasound 05/13/18 10:06 IMPRESSION: SUCCESSFUL THORACENTESIS USING ULTRASOUND GUIDANCE. Chest X-Ray 06/27/18 21:30 IMPRESSION: No significant change. Assessment & Plan - Diagnosis (1) Acute and chronic respiratory failure with hypoxia Is this a current diagnosis for this admission?: Yes Plan: 05/19/2018 acute on chronic respiratory failure with hypoxia probably secondary to CHF exacerbation. He is on BiPAP for 3-4 hours/day. Plan is to continue the current management. 05/20/2018-patient was admitted for acute on chronic respiratory failure with hypoxia probably secondary to CHF exacerbation. He is using BiPAP 4 hours a day. No acute events in the last 24 hours. Plan is to continue the present management. 05/21/2018-patient is comfortably in the chair on 2 L oxygen via nasal cannula. Acute on chronic respiratory failure resolved with hypoxia resolved. Is awaiting for placement in [facility]. 05/22/2018-pulse ox on 2 L is 100% today. Patient is comfortably in the chair. Only complaint is his complaint of dry skin and itching. [facility] He is using BiPAP 3-4 hours a day. His acute on chronic respiratory failure with hypoxia probably secondary to CHF exacerbation. I am going to recheck his BMP tomorrow. Pt is not in fluid overload today. 05/23/2018 pulse ox on 2 L is 99% patient is able to walk in the hallway on 2 L oxygen without any problems. He did not have need to use the BiPAP in the last 24 hours. He has been BNP is around 820. no Signs of any fluid overload. Plan is to continue the present management. 05/24/2018 patient was admitted for acute on chronic respiratory failure with hypoxia hypoxia resolved. Patient is not on BiPAP anymore. Pulse ox is pulse ox is 91% on 2 L. Patient waiting for placement in [place]. 05/25/2018-2 L oxygen pulse ox 100% hypoxia with acute respiratory failure resolved patient is not using the BiPAP anymore. He is waiting for placement at [facility]. 06/02/2017-pulse ox on 2 L is 97% today. Using the BiPAP on and off. Waiting waiting to go to caretakers house probably on Friday. The meantime will continue the present management. 06/03/2018-patient pulse ox is 99% on 2 L. He is using the BiPAP on and off. No complaints from the patient. Plan is to discharge him to caretakers house on Friday. 06/04/2018-pulse ox is 100% on 2lts.using BIPAP on and off. no complaints. comfortable in chair eating lunch. 06/05/2018 pulse ox is 99% on 2 L. Not using the BiPAP at this time. Comfortably in the chair communicating well. Waiting for the placement. 06/06/2018-pulse ox on 2 L is 99%. Patient is not using the BiPAP anymore. He acute on chronic respiratory failure with hypoxia and hypercapnia resolved. 06/08/2018-pulse ox is 100% on 2 L. Patient is not on BiPAP anymore. Acute on chronic respiratory failure with hypoxia and hypercapnia resolved. 06/07/2018 patient pulse oxes are 98% on 2 L patient is off the BiPAP right now acute on chronic respiratory failure with hypoxia and hypercapnia resolved patient waiting for placement at the caretakers home. 06/30/2018-patient was admitted with acute on chronic respiratory failure hypoxia probably secondary to CHF exacerbation. Pulse oxes 100% on 2 L. Using BiPAP at night. Plan is to continue the present management. 07/01/2018-patient was admitted with acute on chronic respiratory failure with hypoxia most likely secondary to CHF exacerbation. Patient is in the BiPAP at night. Pulse ox today is 100% on 2 L. Patient is comfortably in the chair no complaints. (2) Acute on chronic systolic (congestive) heart failure Is this a current diagnosis for this admission?: Yes (3) Pleural effusion Is this a current diagnosis for this admission?: Yes Plan: 05/19/2018-patient came in with a right-sided pleural effusion status post thoracentesis on 05/13/2018 with removal of 750 cc of fluid. Fluid analysis consistent with transudate. Which is likely secondary to CHF. Negative for infection. 05/20/2018-patient came in with right pleural effusion status post thoracentesis on 05/13/2018. The cultures are negative. 05/21/2018 status post thoracentesis of right pleural effusion 750 cc of fluid was removed. cultures Negative. 05/23/2018 during this hospital stay he had a right-sided thoracentesis. And 750 cc of fluid was removed. I am going to redo the chest x-ray today. 05/25/2018-status post right-sided thoracentesis. On examination decreased air entry at the right base. Probably persistent pleural effusion. 06/12/2017 status post right-sided thoracentesis with 750 cc of fluid removal on 05/13/2018. Pleural fluid analysis is consistent with transudate to effusion most likely secondary to patient's congestive heart failure. 06/30/2018 latest chest x-ray done on 06/27/2018 shows moderate right pleural effusion. Seen by systems eng on 06/27/2018. Plan is to continue the present management. He had a right-sided thoracentesis was done on 05/13/2019 with removal of 750 cc of fluid. 07/01/2018 on 05/13/2019 750 cc of fluid was removed after thoracentesis. Follow- up chest x-ray shows stable right pleural effusion. Patient is not in respiratory distress. Plan is to continue the present management. (4) CAD (coronary artery disease) Is this a current diagnosis for this admission?: Yes Plan: 05/19/2018 patient has history of coronary artery disease. No complaints of any chest pains in the last 24-48 hours. Patient is on statins, aspirin, beta- blockers. Plan is to continue the present management. 05/20/2018 patient history of coronary artery disease. No complaints of any chest pains during the hospital stay. 05/21/2018 plan is to continue the current management. 05/22/2018 patient is on statins aspirin and beta-blockers no complaints of chest pain. Plan is to continue the present management. 05/23/2018-plan is to continue the present management patient is asymptomatic. 09/22/2017-patient has history of coronary artery disease, no complaints of chest pain during the hospital stay. 06/03/2018-patient has history of coronary artery disease no complaints of chest pain during the hospital stay. 06/04/2018- to continue present rx 06/08/2018 patient has history of coronary artery disease status post stent placement. Today he is complaining of chest pains requested for stat EKG cardiac enzymes x3. plan to start on nitroglycerin 0.4 mg every 5 minutes as needed for chest pain. 06/30/2018-patient has history of coronary artery disease status post stent placement. He is asymptomatic during the hospital stay. Presently is on aspirin, statin and beta-steve. Plan is to continue the present management. 07/01/2018 patient has history of coronary artery disease status post stent placement. Patient is asymptomatic during the hospital stay. Presently he is on aspirin statin and beta blockers. (5) Hyperkalemia Is this a current diagnosis for this admission?: Yes Plan: Potassium level on 06/28/2018 is 5.4. He was off the Aldactone. Plan is to check a CMP today. If the potassium is still high I am going to put him on Kayexal ate. 07/01/2018 patient potassium level is 5.3 yesterday. He is not on any potassium sparing diuretics. Started on Kayexalate 15 mL twice a day. (6) DEANNA (acute kidney injury) Is this a current diagnosis for this admission?: Yes Plan: 06/30/2018-patient was admitted with acute kidney injury which was resolved. Creatinine latest one is 1.28 at baseline. Presently on Lasix 20 mg p.o. daily. Plan is to check creatinine panel tomorrow. 07/01/2018-patient was admitted with elevated creatinine levels 1.45 present creatinine is 1.38 acute kidney injury is resolved. (7) Gouty arthritis Is this a current diagnosis for this admission?: Yes Plan: 06/30/2018-patient has history of gouty arthritis complaining of left foot pain and right hand pain plan is to check his uric acid levels. Started on Percocet 5/25 mg every 6 as needed. To check uric acid levels. Started on allopurinol 100 mg p.o. twice daily. 07/01/2018 uric acid levels came back at 7.8. Within normal range. Patient was started on allopurinol 100 mg p.o. twice daily and he says is not helping him at all. He was also placed on Percocet yesterday. - Time Time Spent with patient: 15-24 minutes Medications reviewed and adjusted accordingly: Yes Anticipated discharge: Home with Homehealth
[2018-07-01 13:30] LABS: ABSOLUTE EOSINOPHILS # (AUTO) 0.1 10^3/uL (0.0-0.6); ABSOLUTE LYMPHOCYTES (AUTO) 0.8 10^3/uL (0.5-4.7); ABSOLUTE NEUT (AUTO) 4.7 10^3/uL (1.7-8.2); BASOPHILS % (AUTO) 0.6 % (0-2); EOSINOPHILS % (AUTO) 1.6 % (0-6); HEMATOCRIT 34.3 % (37.9-51.0); HEMOGLOBIN 11.2 g/dL (13.5-17.0); LYMPHOCYTES % (AUTO) 11.7 % (13-45); MEAN CORPUSCULAR HEMOGLOBIN 27.6 pg (27.0-33.4); MEAN CORPUSCULAR HGB CONC 32.5 g/dL (32.0-36.0); MEAN CORPUSCULAR VOLUME 85 fl (80-97); MONOCYTES % (AUTO) 14.6 % (3-13); PLATELET COUNT 221 10^3/uL (150-450); RED BLOOD COUNT 4.04 10^6/uL (4.35-5.55); RED CELL DISTRIBUTION WIDTH 15.6 % (11.5-14.0); SEGMENTED NEUTROPHILS % (AUTO) 71.5 % (42-78); TOTAL CELLS COUNTED % (AUTO) 100 %; WHITE BLOOD COUNT 6.5 10^3/uL (4.0-10.5)
[2018-07-01 13:52] LABS: ALANINE AMINOTRANSFERASE 13 U/L (21-72); ALBUMIN 4.1 g/dL (3.5-5.0); ALKALINE PHOSPHATASE 81 U/L (38-126); ANION GAP 8 (5-19); ASPARTATE AMINO TRANSFERASE 26 U/L (17-59); BILIRUBIN,DIRECT 0.2 mg/dL (0.0-0.4); BILIRUBIN,TOTAL 0.4 mg/dL (0.2-1.3); BLOOD UREA NITROGEN 35 mg/dL (7-20); CALCIUM 8.7 mg/dL (8.4-10.2); CARBON DIOXIDE 36 mmol/L (22-30); CHLORIDE 98 mmol/L (98-107); GLUCOSE 145 mg/dL (75-110); POTASSIUM 5.2 mmol/L (3.6-5.0); SODIUM 142.3 mmol/L (137-145); TOTAL PROTEIN 6.8 g/dL (6.3-8.2)
[2018-07-01] MEDS ORDERED: SODIUM POLYSTYRENE SULFONATE 15 GM/60 ML ONE (22:36)
[2018-07-01] MEDS: ROPINIROLE HCL 0.25 MG TABLET PO SCH (22:43)
[2018-07-01] MEDS: SODIUM POLYSTYRENE SULFONATE 15 GM/60 ML PO SCH (22:45)
[2018-07-02] MEDS: SODIUM POLYSTYRENE SULFONATE 15 GM/60 ML PO SCH ×2 (00:17→09:38)
[2018-07-02] MEDS: LANSOPRAZOLE 30 MG TAB.RAP.DR PO SCH ×2 (05:41→17:44)
[2018-07-02] MEDS: ACETAMINOPHEN 325 MG TABLET PO SCH ×4 (09:36→21:30)
[2018-07-02] MEDS: GABAPENTIN 100 MG CAPSULE PO SCH ×2 (09:36→13:19)
[2018-07-02] MEDS: PREDNISONE 10 MG TABLET PO SCH ×2 (09:36→17:44)
[2018-07-02] MEDS: FUROSEMIDE 20 MG TABLET PO SCH (09:37)
[2018-07-02] MEDS: CARVEDILOL 3.125 MG TABLET PO SCH ×2 (09:37→21:31)
[2018-07-02] MEDS: DOCUSATE SODIUM 100 MG CAPSULE PO SCH ×2 (09:37→17:44)
[2018-07-02] MEDS: ASPIRIN 81 MG TABLET, CHEWABLE PO SCH (09:37)
[2018-07-02] MEDS: DIGOXIN 0.125 MG TABLET PO SCH (09:38)
[2018-07-02] MEDS: ALLOPURINOL 100 MG TABLET PO SCH (09:39)
[2018-07-02] MEDS: POLYETHYLENE GLYCOL 3350 POWDER 17 GM/1 PACKET PO SCH (09:39)
[2018-07-02] MEDS: CYCLOSPORINE 0.05% OPH EMULSIO 0.4 ML DROPERETTE OU SCH (09:39)
--- NOTE | 2018-07-02 13:32 | PDOC PROGRESS REPORT ---
Subjective Progress Note for:: 07/02/18 Subjective:: This is a 62-year-old male with a past medical history of CAD, prior CABG, COPD, diet-controlled DM, chronic systolic heart failure from ischemic cardiomyopathy with prior AICD placement, chronic respiratory failure on home O2, history of CVA with residual partial expressive aphasia who initially presented with increasing shortness of breath and leg swelling. Patient was admitted for CHF exacerbation. Patient has partial expressive aphasia (has some residual slurring and pauses) but is coherent and is able to converse with provider. He says his SOB is at baseline but he becomes short of breath when lying supine. He has been having persistent orthopnea. 05/13: Discussed in length again this morning with caregiver (Nuria) and patient. We discussed the need for thoracentesis again this morning including the indication due to his persistent orthopnea and significant bilateral pleural effusion. Also discussed the small risk of pneumothorax. Patient did agree undergo thoracentesis as he has been having patient orthopnea. Patient is oriented to person, place and situation. Also discussed with product planner on bedside about possible option to be transferred to a [facility] in [place] as patient is a his history of placement and disposition. He does not want to be transferred at this time and would prefer to stay here. 05/14: Patient does appear to have into capacity to make his own medical decisions. Patient was also evaluated by psych who deemed the same. Discussed in length again today about plan and disposition. Patient says he does not want to go to a [facility] or rehab. He also does not want to talk about his CODE STATUS and says that he will "sort it out" later. Offered palliative care consult and he is receptive to it but not hospice. He says his breathing has improved after the thoracentesis. Roller Printer recommended BiPAP at home. Patient is resistant on using BiPAP at home but agrees to try it here while inpatient and see if he tolerates it. 05/15: Upon encounter this morning, patient was sleeping on the recliner. Patient says that his house is not fixed yet. He says he does not want to go to any of the surrounding SNF/rehab facilities at this time but is agreeable to being transferred to the [facility] in [place]. Convinced on trying the BiPAP and he says he will try wearing it. 05/16: No acute event overnight. Patient has complied with BIPAP. He says his breathing has slightly improved but still has orthopnea. Denies chest pain or dizziness. 05/17: Patient says his breathing has improved and he feels better today. He says he can use the BIPAP for 2 hrs but is willing to try to extend it to 3-4 hrs today. 05/18: Patient only used BIPAP for 1.5 hrs last night. Upon encounter, he does say that he breathes and feels better when on BIPAP. He was advised on increa sing his BIPAP use again today. He denies worsening SOB or chest pain. Still awaiting for update on transfer to [facility] in [facility]. 05/19/2018-no acute events in the last 24 hours as per the patient he is using BiPAP 3-4 hours a day. He is comfortably in the chair on oxygen via nasal tom kurt. Denies any problems. Waiting for placement in [facility]. 05/20/2018-no acute events in the last 24 hours. Patient is on oxygen via nasal cannula walking in the room. Denies any complaints. Using BiPAP 4 hours a day. Patient is waiting for placement at [facility]. 05/21/2018 no acute events in the last 24 hours. Patient is complaining of pain in both arms. I am going to put him on Percocet 09/25/2024 every 8 as needed for pain. Patient is on 2 L nasal cannula pulse ox is 96%. He is using BiPAP 4 hours a day. 05/22/2018-no acute events over the last 24 hours. Patient is afebrile. Patient is complaining of dry skin and itching he wants some Benadryl. 05/23/2018 no acute events in the last 24 hours. His BiPAP requirements are decreased. Patient is afebrile. His pulse ox is 99% on 2 L. Notably sitting in the bed communicating okay. 05/24/2018 -no acute events in the last 24 hours. Patient pulse oxes 99% on 2 L. Is comfortably sleeping in his chair. Denies any complaints. 05/25/2018-no acute events in the last 24 hours. Pulse ox is 100% on 2 L. He is comfortable in the chair communicating very well. Denies any complaints. [facility] 05/26/18: He has been more complaint with BIPAP. He denies acute SOB and feels like he is at his baseline. 05/27/18: No acute event overnight. He did complaint of transient chest tightness this morning after he ate a big breakfast (ham and omelet). He says it only lasted for a few seconds. EKG was negative for acute changes. 05/28/18: No acute event. No acute symptoms, no chest pain or SOB. He is at his baseline. 05/29/18: No acute event. Patient denies any acute complaint. Updated by RN and product planner that patient's house will be condemned due to multiple issues. 05/30/18: No acute issues. Patient is still awaiting placement. 05/31/18:Patient is still awaiting placement. Discussed with Eryn on bedside, patient's automobile assembler who says she is getting her new house this friday and may be able to have patient live with her. 06/01/18: No acute issues. Plan to discharge patient to her automobile assembler's new house later this week with home health. School Transportation Supervisor says she is confident she is able to take care of him at her new house. Patient also prefers discussed disposition. 06/02/2018-patient is afebrile no acute events in the last 24 hours patient waiting to go to caretakers home. 06/03/2018 no acute events in last 24 hours. Patient is comfortable in the chair talking to the family members on the phone. Denies any complaints. 06/04/2018-no acute events in the last 24 hrs. afebrile .pulse ox 98% on 2lts. 06/05/2018-no acute events in the last 24 hours. Patient is afebrile. Pulse ox is 99% on 2 L. 06/06/2018-no acute events in the last 24 hours. Patient is afebrile. Comfortably in the chair sleeping. Denies any complaints. 06/07/2018 patient is afebrile and doing well no complaints no acute events in the last 24 hours. 2018 has saw the patient this morning is comfortably in the chair complaining of left hand pain resting pain medications. His pulse ox are stable. Afebrile. Few minutes ago nurse show operations supervisor Spencer called me to notify that patient is complaining of chest pains vital signs are stable pulse ox is normal so I requested him to do the EKG and cardiac enzymes x3 along with nitroglycerin 0.5 mg subcu every 5 minutes as needed for chest pain. 06/09/18: Reassumed care today. No acute issues in the interim. Patient still here due to placement issues. Apparently, his automobile assembler's house was not ready yet. He is at his baseline and denies chest pain or SOB at the moment. 06/13/18: No acute issues. Denies chest pain or SOB. Discussed on bedside with Eryn (automobile assembler) today who says they are still doing repairs for a leakage at her house. Patient has remained stable with no acute issues in the interim and is still waiting for placement. 06/23/18: Reassumed care today. No acute issues. 06/24/18: No acute issues. He denies acute complaints. Still awaiting placement. [facility] 06/25/18: Patient reportedly tripped last night but did not fall on the floor. Otherwise, he denies acute complaints. 2: No acute event overnight. He is asleep upon encounter. When he woke up, he complains of heartburn. He says it is not chest pain but more of a burning sen sation on the chest which he had in the past. He was given a GI cocktail which completely resolved his heartburn. 2: No acute event overnight. Denies chest pain or SOB. No recurrence of heartburn. He does say he continues to have intermittent pain on the left hand joints and right foot. He says he has a history of gouty arthritis. Will add low dose prednisone. 23: No acute event overnight. Re evaluated by pulmonology yesterday and repeat CXR was ordered which showed stable changes, no worsening of pleural effusion. He says his hand and right foot joint pains improved with the prednisone. Denies chest pain or SOB. He says Eryn told him, the house may be ready by Friday (06/30). 06/29: No acute issues. Denies SOB or chest pain. Still awaiting placement. 06/30/2018 no acute events in the last 24 hours. Patient is afebrile. Patient is complaining of left foot pain and hand pain. He has history of gout. Be going to check his uric acid level, started him on allopurinol 100 mg p.o. twice daily and switched tramadol to Percocet every 6 as needed for pain. 07/01/2018 no acute events in the last 24 hours. Patient is afebrile. Patient is complaining of left foot pain and right hand pain yesterday uric acid levels were done uric acid level 7.8 within normal limits. He was started on allopurinol and the patient states is not helping him at all. 07/02/2018-patient is still complaining of gouty arthritis. Uric acid level is 7.8 which was normal. Patient is on prednisone 10 mg p.o. twice daily and also on allopurinol 100 mg p.o. twice daily. She is also receiving Percocets every 6 as needed. Patient was reassured. No other complaints. Reason For Visit: CHF Physical Exam Vital Signs: Temp Pulse Resp BP Pulse Ox 98.1 F 100 20 142/77 H 96 07/02/18 08:01 07/02/18 08:01 07/02/18 08:01 07/02/18 08:01 07/02/18 08:01 Intake & Output 07/01/18 07/02/18 07/03/18 06:59 06:59 06:59 Intake Total 1777 3232 Output Total 1470 2175 Balance 307 1057 Weight 86.6 kg General appearance: PRESENT: no acute distress Head exam: PRESENT: atraumatic Eye exam: PRESENT: PERRLA Mouth exam: PRESENT: dry mucosa Neck exam: ABSENT: carotid bruit, JVD, lymphadenopathy, thyromegaly Respiratory exam: PRESENT: clear to auscultation rahul. ABSENT: rales, rhonchi, wheezes Cardiovascular exam: PRESENT: RRR. ABSENT: diastolic murmur, rubs, systolic murmur GI/Abdominal exam: PRESENT: normal bowel sounds, soft. ABSENT: distended, guarding, mass, organolmegaly, rebound, tenderness Extremities exam: PRESENT: full ROM. ABSENT: calf tenderness, clubbing, pedal edema Neurological exam: PRESENT: alert, awake, oriented to person, oriented to place, oriented to time, oriented to situation, CN II-XII grossly intact. ABSENT: motor sensory deficit Psychiatric exam: PRESENT: appropriate affect, normal mood. ABSENT: homicidal ideation, suicidal ideation Results Laboratory Results: 07/01/18 13:00 07/01/18 13:00 07/01/18 07/01/18 13:00 13:00 WBC 6.5 RBC 4.04 L Hgb 11.2 L Hct 34.3 L MCV 85 MCH 27.6 MCHC 32.5 RDW 15.6 H Plt Count 221 Seg Neutrophils % 71.5 Lymphocytes % 11.7 L Monocytes % 14.6 H Eosinophils % 1.6 Basophils % 0.6 Absolute Neutrophils 4.7 Absolute Lymphocytes 0.8 Absolute Monocytes 1.0 Absolute Eosinophils 0.1 Absolute Basophils 0.0 Sodium 142.3 Potassium 5.2 H Chloride 98 Carbon Dioxide 36 H Anion Gap 8 BUN 35 H Creatinine 1.52 H Est GFR ( Amer) 56 L Est GFR (Non-Af Amer) 46 L Glucose 145 H Calcium 8.7 Magnesium 2.2 Total Bilirubin 0.4 AST 26 ALT 13 L Alkaline Phosphatase 81 Total Protein 6.8 Albumin 4.1 05/11/18 05/11/18 05/11/18 09:35 09:35 09:35 Creatine Kinase 37 L CK-MB (CK-2) Troponin I 0.071 NT-Pro-B Natriuret Pep 6800 H 05/11/18 05/11/18 05/12/18 12:30 19:00 01:06 Creatine Kinase CK-MB (CK-2) Troponin I 0.067 0.064 0.050 NT-Pro-B Natriuret Pep 05/23/18 05/24/18 05/27/18 10:36 09:38 10:01 Creatine Kinase CK-MB (CK-2) Troponin I 0.060 NT-Pro-B Natriuret Pep 819 889 06/03/18 06/08/18 06/08/18 08:12 13:40 13:40 Creatine Kinase 39 L CK-MB (CK-2) 1.92 Troponin I 0.060 NT-Pro-B Natriuret Pep 1420 H 06/08/18 06/08/18 06/09/18 19:03 19:03 00:59 Creatine Kinase 36 L 34 L CK-MB (CK-2) 1.75 Troponin I 0.058 NT-Pro-B Natriuret Pep 06/09/18 06/09/18 06/09/18 00:59 08:04 08:04 Creatine Kinase 32 L CK-MB (CK-2) 1.58 1.79 Troponin I 0.063 0.064 NT-Pro-B Natriuret Pep 06/09/18 06/09/18 06/09/18 12:52 12:52 19:00 Creatine Kinase 46 L 31 L CK-MB (CK-2) 1.99 Troponin I 0.051 NT-Pro-B Natriuret Pep 06/09/18 06/25/18 19:00 07:35 Creatine Kinase CK-MB (CK-2) 1.80 Troponin I 0.072 0.054 NT-Pro-B Natriuret Pep Impressions: Thoracentesis Ultrasound 05/13/18 10:06 IMPRESSION: SUCCESSFUL THORACENTESIS USING ULTRASOUND GUIDANCE. Chest X-Ray 06/27/18 21:30 IMPRESSION: No significant change. Assessment & Plan - Diagnosis (1) Acute and chronic respiratory failure with hypoxia Is this a current diagnosis for this admission?: Yes Plan: 05/19/2018 acute on chronic respiratory failure with hypoxia probably secondary to CHF exacerbation. He is on BiPAP for 3-4 hours/day. Plan is to continue the current management. 05/20/2018-patient was admitted for acute on chronic respiratory failure with hypoxia probably secondary to CHF exacerbation. He is using BiPAP 4 hours a day. No acute events in the last 24 hours. Plan is to continue the present management. 05/21/2018-patient is comfortably in the chair on 2 L oxygen via nasal cannula. Acute on chronic respiratory failure resolved with hypoxia resolved. Is awaiting for placement in [facility]. 05/22/2018-pulse ox on 2 L is 100% today. Patient is comfortably in the chair. Only complaint is his complaint of dry skin and itching. [facility] He is using BiPAP 3-4 hours a day. His acute on chronic respiratory failure with hypoxia probably secondary to CHF exacerbation. I am going to recheck his BMP tomorrow. Pt is not in fluid overload today. 05/23/2018 pulse ox on 2 L is 99% patient is able to walk in the hallway on 2 L oxygen without any problems. He did not have need to use the BiPAP in the last 24 hours. He has been BNP is around 820. no Signs of any fluid overload. Plan is to continue the present management. 05/24/2018 patient was admitted for acute on chronic respiratory failure with hypoxia hypoxia resolved. Patient is not on BiPAP anymore. Pulse ox is pulse ox is 91% on 2 L. Patient waiting for placement in [place]. 05/25/2018-2 L oxygen pulse ox 100% hypoxia with acute respiratory failure resolved patient is not using the BiPAP anymore. He is waiting for placement at [facility]. 06/02/2017-pulse ox on 2 L is 97% today. Using the BiPAP on and off. Waiting waiting to go to [facility] probably on Friday. The meantime will continue the present management. 06/03/2018-patient pulse ox is 99% on 2 L. He is using the BiPAP on and off. No complaints from the patient. Plan is to discharge him to [facility] on Friday. 06/04/2018-pulse ox is 100% on 2lts.using BIPAP on and off. no complaints. comfortable in chair eating lunch. 06/05/2018 pulse ox is 99% on 2 L. Not using the BiPAP at this time. Comfortably in the chair communicating well. Waiting for the placement. 06/06/2018-pulse ox on 2 L is 99%. Patient is not using the BiPAP anymore. He acute on chronic respiratory failure with hypoxia and hypercapnia resolved. 06/08/2018-pulse ox is 100% on 2 L. Patient is not on BiPAP anymore. Acute on chronic respiratory failure with hypoxia and hypercapnia resolved. 06/07/2018 patient pulse oxes are 98% on 2 L patient is off the BiPAP right now acute on chronic respiratory failure with hypoxia and hypercapnia resolved [facility]. 06/30/2018-patient was admitted with acute on chronic respiratory failure hypoxia probably secondary to CHF exacerbation. Pulse oxes 100% on 2 L. Using BiPAP at night. Plan is to continue the present management. 07/01/2018-patient was admitted with acute on chronic respiratory failure with hypoxia most likely secondary to CHF exacerbation. Patient is in the BiPAP at night. Pulse ox today is 100% on 2 L. Patient is comfortably in the chair no complaints. 07/02/2018-patient was admitted with acute on chronic respiratory failure with hypoxia most likely to CHF exacerbation. He is on oxygen 2 L via nasal cannula pulse ox is 96%. He is using the BiPAP at night. (2) Acute on chronic systolic (congestive) heart failure Is this a current diagnosis for this admission?: Yes Plan: Combined systolic and diastolic biventricular failure. Continue Lasix 40 mg daily. Cardiology following. Echo shows an EF of 30-35%, grade 2 diastolic dysfunction and dilated left and right ventricular. Patient already has an AICD. Patient is not on UZMA inhibitor hence is not on optimal medical therapy. CHF medication regimen cannot be optimized as patient has had angioedema from captopril before. Both UZMA inhibitors and Entresto will be contraindicated to a history of ACEi-associated angioedema. Discussed with cardio and pulm. Recommendation for BIPAP at home/discharge for his biventricular heart failure and significant pulmonary hypertension. Continue Coreg and Aldactone. 05/16/18: Decreased Lasix to 40 mg IV daily from q12 due to alkalosis. 05/19/2018-patient has history of congestive heart failure. Which is combined systolic diastolic biventricular failure. Patient is on Lasix 40 mg IV twice daily. cardiology on board. EF is 30-35%. Grade 2 diastolic dysfunction and dilated left and right ventricular chambers. Patient has AICD. Patient is not on UZMA inhibitors because of history of angioedema. UZMA inhibitors and Entresto are not contraindicated because of the ACEi associated angioedema. Patient is also on Coreg and Aldactone. And [facility]. 05/20/2018-has a combined systolic diastolic biventricular failure. EF is 30- 35%. Echocardiogram shows grade 2 diastolic dysfunction and dilated left and right ventricular chambers. Patient has AICD. Patient is not on UZMA inhibitors because of history of angioedema. Stoped Aldactone today because potassium is 5.1. 05/21/2018-patient has history of congestive heart failure combined systolic diastolic biventricular failure with EF of 30-35%. Patient is allergic to UZMA inhibitors gives angioedema. Latest potassium is 5.1. We are going to check his potassium levels today. Yesterday I stopped his spironolactone and we stopped potassium supplementation. 05/22/2018-his latest potassium is 5.0 potassium supplementation was discontinued spironolactone was discontinued, has EF is 30-35%. Patient is not in fluid overload I am going to follow the patient regular basis. 05/23/2018-potassium level is 5.0 stable patient ejection fraction is 30-45%. Patient has combined systolic diastolic biventricular heart failure. He has AICD. And is to continue the present management. 05/24/2018-patient's has a biventricular systolic and diastolic heart failure with EF of 35-40%. Patient has AICD. He is on Lasix 40 IV daily I am going to switch her to 40 mg p.o. daily. 05/25/2018-patient is not in fluid overload chest was clear no pedal edema. He has biventricular systolic/diastolic heart failure with EF of 35-40%. He is on Lasix.Combined systolic and diastolic biventricular failure. Continue Lasix 40 mg daily. Cardiology following. Echo shows an EF of 30-35%, grade 2 diastolic dysfunction and dilated left and right ventricular. Patient already has an AICD. Patient is not on UZMA inhibitor hence is not on optimal medical therapy. CHF medication regimen cannot be optimized as patient has had angioedema from captopril before. Both UZMA inhibitors and Entresto will be contraindicated to a history of ACEi-associated angioedema. Discussed with cardio and pulm. Recommendation for BIPAP at home/discharge for his biventricular heart failure and significant pulmonary hypertension. Continue Coreg. Aldactone was d/raghav due to his potassium trending up. Aldactone resumed. Continue Lasix 40 mg daily. 06/02/2017-patient has combined systolic and diastolic biventricular failure he is on Lasix 40 mg p.o. daily and also on Aldactone. Patient is not in fluid overload. And is to continue the present management. 06/03/2017 patient has history of combined systolic diastolic biventricular failure on Lasix 40 mg p.o. daily and is also on Aldactone potassium levels going back up again it was 5.2 today I am going to stop the Aldactone and and follow the potassium levels. 06/04/2018-pt is not in fluid overload. plan to continue present treatment. 06/05/2018-patient has history of for combined systolic/diastolic biventricular failure on Lasix 40 mg p.o. daily Aldactone was discontinued because of the persistently elevated potassium levels. Potassium level today is 3.7. 06/06/2018-patient has a biventricular heart failure with EF of less than 30% patient is not in fluid overload. Plan is to continue the present management. 06/08/2018-patient has history of heart failure with EF of less than 30% patient is not in fluid overload. He has AICD. 06/07/2018 patient has history of biventricular heart failure with EF of less than 30% patient is not in fluid overload plan is to continue the present management. 06/30/2018-patient has history of combined systolic diastolic biventricular heart failure. Cardiology consult was done echocardiogram shows EF of 30-35% grade 2 diastolic dysfunction and dilated left and right heart ventricules. Patient is presently on Lasix 20 mg p.o. daily. Not in fluid overload. Plan is to check a BNP and labs tomorrow. Latest BNP is 1490. 07/02/2018 patient has history of biventricular heart failure. Is also systolic and diastolic heart failure echocardiogram with EF of 30-35% and grade 2 diastolic dysfunction with a dilated left and right ventricles. Patient is presently on Lasix 20 mg p.o. daily not in fluid overload. His creatinine is slowly trending up. I am going to hold his Lasix for now. (3) Pleural effusion Is this a current diagnosis for this admission?: Yes Plan: 05/19/2018-patient came in with a right-sided pleural effusion status post thoracentesis on 05/13/2018 with removal of 750 cc of fluid. Fluid analysis consistent with transudate. Which is likely secondary to CHF. Negative for infection. 05/20/2018-patient came in with right pleural effusion status post thoracentesis on 05/13/2018. The cultures are negative. 05/21/2018 status post thoracentesis of right pleural effusion 750 cc of fluid was removed. cultures Negative. 05/23/2018 during this hospital stay he had a right-sided thoracentesis. And 750 cc of fluid was removed. I am going to redo the chest x-ray today. 05/25/2018-status post right-sided thoracentesis. On examination decreased air entry at the right base. Probably persistent pleural effusion. 06/12/2017 status post right-sided thoracentesis with 750 cc of fluid removal on 05/13/2018. Pleural fluid analysis is consistent with transudate to effusion most likely secondary to patient's congestive heart failure. 06/30/2018 latest chest x-ray done on 06/27/2018 shows moderate right pleural effusion. Seen by field coordinator on 06/27/2018. Plan is to continue the present management. He had a right-sided thoracentesis was done on 05/13/2019 with removal of 750 cc of fluid. 07/01/2018 on 05/13/2019 750 cc of fluid was removed after thoracentesis. Follow- up chest x-ray shows stable right pleural effusion. Patient is not in respiratory distress. Plan is to continue the present management. 07/02/2018 follow-up chest x-rays indicates stable pleural effusions. Patient is not in respiratory distress. Plan is to continue the present management. (4) CAD (coronary artery disease) Is this a current diagnosis for this admission?: Yes Plan: 05/19/2018 patient has history of coronary artery disease. No complaints of any chest pains in the last 24-48 hours. Patient is on statins, aspirin, beta- blockers. Plan is to continue the present management. 05/20/2018 patient history of coronary artery disease. No complaints of any chest pains during the hospital stay. 05/21/2018 plan is to continue the current management. 05/22/2018 patient is on statins aspirin and beta-blockers no complaints of chest pain. Plan is to continue the present management. 05/23/2018-plan is to continue the present management patient is asymptomatic. 09/22/2017-patient has history of coronary artery disease, no complaints of chest pain during the hospital stay. 06/03/2018-patient has history of coronary artery disease no complaints of chest pain during the hospital stay. 06/04/2018- to continue present rx 06/08/2018 patient has history of coronary artery disease status post stent placement. Today he is complaining of chest pains requested for stat EKG cardiac enzymes x3. plan to start on nitroglycerin 0.4 mg every 5 minutes as needed for chest pain. 06/30/2018-patient has history of coronary artery disease status post stent placement. He is asymptomatic during the hospital stay. Presently is on aspirin, statin and beta-steve. Plan is to continue the present management. 07/01/2018 patient has history of coronary artery disease status post stent placement. Patient is asymptomatic during the hospital stay. Presently he is on aspirin statin and beta blockers. 11/2018 patient has history of coronary artery disease status post stent placem ent. Presently on aspirin, statin, beta blockers. No complaints of chest pain. (5) Hyperkalemia Is this a current diagnosis for this admission?: Yes Plan: Potassium level on 06/28/2018 is 5.4. He was off the Aldactone. Plan is to check a CMP today. If the potassium is still high I am going to put him on Kayexalate. 07/01/2018 patient potassium level is 5.3 yesterday. He is not on any potassium sparing diuretics. Started on Kayexalate 15 mL twice a day. 07/02/2018 latest potassium is 5.2 he was started on Kayexalate and daily basis. Plan is to recheck the labs tomorrow. (6) DEANNA (acute kidney injury) Is this a current diagnosis for this admission?: Yes Plan: 06/30/2018-patient was admitted with acute kidney injury which was resolved. Creatinine latest one is 1.28 at baseline. Presently on Lasix 20 mg p.o. daily. Plan is to check creatinine panel tomorrow. 07/01/2018-patient was admitted with elevated creatinine levels 1.45 present creatinine is 1.38 acute kidney injury is resolved. 07/02/2018 latest creatinine is 1.5-20 Slowly. Plan to stop allopurinol and Lasix. To recheck his renal panel tomorrow. Worsening kidney function may be secondary to medications/prerenal causes. (7) Gouty arthritis Is this a current diagnosis for this admission?: Yes Plan: 06/30/2018-patient has history of gouty arthritis complaining of left foot pain and right hand pain plan is to check his uric acid levels. Started on Percocet 5/25 mg every 6 as needed. To check uric acid levels. Started on allopurinol 100 mg p.o. twice daily. 07/01/2018 uric acid levels came back at 7.8. Within normal range. Patient was started on allopurinol 100 mg p.o. twice daily and he says is not helping him at all. He was also placed on Percocet yesterday. 07/02/2018 patient is complaining of arthritis he thinks it was gouty arthritis. Uric acid level is 7.8 patient is on prednisone 10 mg p.o. twice daily. Because of the worsening renal function allopurinol was discontinued. - Time Time Spent with patient: 15-24 minutes Medications reviewed and adjusted accordingly: Yes Anticipated discharge: Home, Home with Homehealth
[2018-07-02] MEDS: OXYCODONE-ACETAMINOPHEN 5-325 MG TABLET PO PRN (17:44)
[2018-07-02] MEDS: ROPINIROLE HCL 0.25 MG TABLET PO SCH (21:28)
[2018-07-02] MEDS: GABAPENTIN 300 MG CAPSULE PO SCH (21:28)
[2018-07-03] MEDS: LANSOPRAZOLE 30 MG TAB.RAP.DR PO SCH ×2 (07:33→17:40)
[2018-07-03] MEDS: ACETAMINOPHEN 325 MG TABLET PO SCH ×4 (09:15→22:13)
[2018-07-03] MEDS: ASPIRIN 81 MG TABLET, CHEWABLE PO SCH (09:15)
[2018-07-03] MEDS: CYCLOSPORINE 0.05% OPH EMULSIO 0.4 ML DROPERETTE OU SCH (09:15)
[2018-07-03] MEDS: GABAPENTIN 300 MG CAPSULE PO SCH ×2 (09:15→22:13)
[2018-07-03] MEDS: DIGOXIN 0.125 MG TABLET PO SCH (09:15)
[2018-07-03] MEDS: DOCUSATE SODIUM 100 MG CAPSULE PO SCH ×2 (09:15→17:44)
[2018-07-03] MEDS: PREDNISONE 10 MG TABLET PO SCH ×2 (09:15→17:44)
[2018-07-03] MEDS: CARVEDILOL 3.125 MG TABLET PO SCH ×2 (09:15→22:13)
[2018-07-03] MEDS: POLYETHYLENE GLYCOL 3350 POWDER 17 GM/1 PACKET PO SCH (09:16)
[2018-07-03 09:17] LABS: ABSOLUTE BASOPHILS # (AUTO) 0.1 10^3/uL (0.0-0.2); ABSOLUTE EOSINOPHILS # (AUTO) 0.1 10^3/uL (0.0-0.6); ABSOLUTE LYMPHOCYTES (AUTO) 1.3 10^3/uL (0.5-4.7); ABSOLUTE MONOCYTES (AUTO) 1.1 10^3/uL (0.1-1.4); ABSOLUTE NEUT (AUTO) 5.1 10^3/uL (1.7-8.2); BASOPHILS % (AUTO) 0.8 % (0-2); EOSINOPHILS % (AUTO) 0.7 % (0-6); HEMATOCRIT 36.6 % (37.9-51.0); HEMOGLOBIN 11.9 g/dL (13.5-17.0); LYMPHOCYTES % (AUTO) 17.4 % (13-45); MEAN CORPUSCULAR HEMOGLOBIN 27.2 pg (27.0-33.4); MEAN CORPUSCULAR HGB CONC 32.4 g/dL (32.0-36.0); MEAN CORPUSCULAR VOLUME 84 fl (80-97); MONOCYTES % (AUTO) 14.4 % (3-13); PLATELET COUNT 250 10^3/uL (150-450); RED BLOOD COUNT 4.36 10^6/uL (4.35-5.55); RED CELL DISTRIBUTION WIDTH 15.3 % (11.5-14.0); SEGMENTED NEUTROPHILS % (AUTO) 66.7 % (42-78); TOTAL CELLS COUNTED % (AUTO) 100 %; WHITE BLOOD COUNT 7.6 10^3/uL (4.0-10.5)
[2018-07-03 09:24] LABS: ALANINE AMINOTRANSFERASE 21 U/L (21-72); ALBUMIN 4.3 g/dL (3.5-5.0); ALKALINE PHOSPHATASE 85 U/L (38-126); ANION GAP 9 (5-19); ASPARTATE AMINO TRANSFERASE 33 U/L (17-59); BILIRUBIN,DIRECT 0.3 mg/dL (0.0-0.4); BILIRUBIN,TOTAL 0.4 mg/dL (0.2-1.3); BLOOD UREA NITROGEN 34 mg/dL (7-20); CALCIUM 9.1 mg/dL (8.4-10.2); CARBON DIOXIDE 37 mmol/L (22-30); CHLORIDE 97 mmol/L (98-107); GLUCOSE 93 mg/dL (75-110); POTASSIUM 5.7 mmol/L (3.6-5.0); SODIUM 143.2 mmol/L (137-145); TOTAL PROTEIN 7.2 g/dL (6.3-8.2)
[2018-07-03] MEDS: OXYCODONE-ACETAMINOPHEN 5-325 MG TABLET PO PRN ×2 (11:10→22:13)
--- NOTE | 2018-07-03 15:42 | PDOC PROGRESS REPORT ---
Subjective Progress Note for:: 07/03/18 Subjective:: This is a 62-year-old male with a past medical history of CAD, prior CABG, COPD, diet-controlled DM, chronic systolic heart failure from ischemic cardiomyopathy with prior AICD placement, chronic respiratory failure on home O2, history of CVA with residual partial expressive aphasia who initially presented with increasing shortness of breath and leg swelling. Patient was admitted for CHF exacerbation. Patient has partial expressive aphasia (has some residual slurring and pauses) but is coherent and is able to converse with provider. He says his SOB is at baseline but he becomes short of breath when lying supine. He has been having persistent orthopnea. 05/13: Discussed in length again this morning with caregiver (Nuria) and patient. We discussed the need for thoracentesis again this morning including the indication due to his persistent orthopnea and significant bilateral pleural effusion. Also discussed the small risk of pneumothorax. Patient did agree undergo thoracentesis as he has been having patient orthopnea. Patient is oriented to person, place and situation. Also discussed with land use planner on bedside about possible option to be transferred to a [facility] in [place] as patient is a his history of placement and disposition. He does not want to be transferred at this time and would prefer to stay here. 05/14: Patient does appear to have into capacity to make his own medical decisions. Patient was also evaluated by psych who deemed the same. Discussed in length again today about plan and disposition. Patient says he does not want to go to a intermediate or rehab. He also does not want to talk about his CODE STATUS and says that he will "sort it out" later. Offered palliative care consult and he is receptive to it but not hospice. He says his breathing has improved after the thoracentesis. Cash Control Specialist recommended BiPAP at home. Patient is resistant on using BiPAP at home but agrees to try it here while inpatient and see if he tolerates it. 05/15: Upon encounter this morning, patient was sleeping on the recliner. Patient says that his house is not fixed yet. He says he does not want to go to any of the surrounding SNF/rehab facilities at this time but is agreeable to being transferred to the [facility] in [place]. Convinced on trying the BiPAP and he says he will try wearing it. 05/16: No acute event overnight. Patient has complied with BIPAP. He says his breathing has slightly improved but still has orthopnea. Denies chest pain or dizziness. 05/17: Patient says his breathing has improved and he feels better today. He says he can use the BIPAP for 2 hrs but is willing to try to extend it to 3-4 hrs today. 05/18: Patient only used BIPAP for 1.5 hrs last night. Upon encounter, he does say that he breathes and feels better when on BIPAP. He was advised on increa sing his BIPAP use again today. He denies worsening SOB or chest pain. Still awaiting for update on transfer to [facility] in [facility]. 05/19/2018-no acute events in the last 24 hours as per the patient he is using BiPAP 3-4 hours a day. He is comfortably in the chair on oxygen via nasal tom kurt. Denies any problems. Waiting for placement in [facility]. 05/20/2018-no acute events in the last 24 hours. Patient is on oxygen via nasal cannula walking in the room. Denies any complaints. Using BiPAP 4 hours a day. Patient is waiting for placement at [facility]. 05/21/2018 no acute events in the last 24 hours. Patient is complaining of pain in both arms. I am going to put him on Percocet 09/25/2024 every 8 as needed for pain. Patient is on 2 L nasal cannula pulse ox is 96%. He is using BiPAP 4 hours a day. 05/22/2018-no acute events over the last 24 hours. Patient is afebrile. Patient is complaining of dry skin and itching he wants some Benadryl. 05/23/2018 no acute events in the last 24 hours. His BiPAP requirements are decreased. Patient is afebrile. His pulse ox is 99% on 2 L. Notably sitting in the bed communicating okay. 05/24/2018 -no acute events in the last 24 hours. Patient pulse oxes 99% on 2 L. Is comfortably sleeping in his chair. Denies any complaints. 05/25/2018-no acute events in the last 24 hours. Pulse ox is 100% on 2 L. He is comfortable in the chair communicating very well. Denies any complaints[facility] 05/26/18: He has been more complaint with BIPAP. He denies acute SOB and feels like he is at his baseline. 05/27/18: No acute event overnight. He did complaint of transient chest tightness this morning after he ate a big breakfast (ham and omelet). He says it only lasted for a few seconds. EKG was negative for acute changes. 05/28/18: No acute event. No acute symptoms, no chest pain or SOB. He is at his baseline. 05/29/18: No acute event. Patient denies any acute complaint. Updated by RN and land use planner that patient's house will be condemned due to multiple issues. 05/30/18: No acute issues. Patient is still awaiting placement. 05/31/18:Patient is still awaiting placement. Discussed with Eryn on bedside, patient's business office representative who says she is getting her new house this friday and may be able to have patient live with her. 06/01/18: No acute issues. Plan to discharge patient to her business office representative's new house later this week with home health. Band Machine Operator says she is confident she is able to take care of him at her new house. Patient also prefers discussed disposition. 06/02/2018-patient is afebrile no acute events in the last 24 hours patient waiting to go to caretakers home. 06/03/2018 no acute events in last 24 hours. Patient is comfortable in the chair talking to the family members on the phone. Denies any complaints. 06/04/2018-no acute events in the last 24 hrs. afebrile .pulse ox 98% on 2lts. 06/05/2018-no acute events in the last 24 hours. Patient is afebrile. Pulse ox is 99% on 2 L. 06/06/2018-no acute events in the last 24 hours. Patient is afebrile. Comfortably in the chair sleeping. Denies any complaints. 06/07/2018 patient is afebrile and doing well no complaints no acute events in the last 24 hours. 2018 has saw the patient this morning is comfortably in the chair complaining of left hand pain resting pain medications. His pulse ox are stable. Afebrile. Few minutes ago nurse puff iron operator Spencer called me to notify that patient is complaining of chest pains vital signs are stable pulse ox is normal so I requested him to do the EKG and cardiac enzymes x3 along with nitroglycerin 0.5 mg subcu every 5 minutes as needed for chest pain. 06/09/18: Reassumed care today. No acute issues in the interim. Patient still here due to placement issues. Apparently, his business office representative's house was not ready yet. He is at his baseline and denies chest pain or SOB at the moment. 06/13/18: No acute issues. Denies chest pain or SOB. Discussed on bedside with Eryn (business office representative) today who says they are still doing repairs for a leakage at her house. Patient has remained stable with no acute issues in the interim and is still waiting for placement. 06/23/18: Reassumed care today. No acute issues. 06/24/18: No acute issues. He denies acute complaints. Still awaiting placement. [facility] 06/25/18: Patient reportedly tripped last night but did not fall on the floor. Otherwise, he denies acute complaints. 2: No acute event overnight. He is asleep upon encounter. When he woke up, he complains of heartburn. He says it is not chest pain but more of a burning sen sation on the chest which he had in the past. He was given a GI cocktail which completely resolved his heartburn. 2: No acute event overnight. Denies chest pain or SOB. No recurrence of heartburn. He does say he continues to have intermittent pain on the left hand joints and right foot. He says he has a history of gouty arthritis. Will add low dose prednisone. 23: No acute event overnight. Re evaluated by pulmonology yesterday and repeat CXR was ordered which showed stable changes, no worsening of pleural effusion. He says his hand and right foot joint pains improved with the prednisone. Denies chest pain or SOB. He says Eryn told him, the house may be ready by Friday (06/30). 06/29: No acute issues. Denies SOB or chest pain. Still awaiting placement. 06/30/2018 no acute events in the last 24 hours. Patient is afebrile. Patient is complaining of left foot pain and hand pain. He has history of gout. Be going to check his uric acid level, started him on allopurinol 100 mg p.o. twice daily and switched tramadol to Percocet every 6 as needed for pain. 07/01/2018 no acute events in the last 24 hours. Patient is afebrile. Patient is complaining of left foot pain and right hand pain yesterday uric acid levels were done uric acid level 7.8 within normal limits. He was started on allopurinol and the patient states is not helping him at all. 07/02/2018-patient is still complaining of gouty arthritis. Uric acid level is 7.8 which was normal. Patient is on prednisone 10 mg p.o. twice daily and also on allopurinol 100 mg p.o. twice daily. She is also receiving Percocets every 6 as needed. Patient was reassured. No other complaints. 07/03/2018 no acute events in the last 24 hours. Patient is afebrile. Waiting for the placement. Reason For Visit: CHF Physical Exam Vital Signs: Temp Pulse Resp BP Pulse Ox 98.9 F 82 16 117/75 99 07/03/18 13:32 07/03/18 13:32 07/03/18 13:32 07/03/18 13:32 07/03/18 13:32 Intake & Output 07/02/18 07/03/18 07/04/18 06:59 06:59 06:59 Intake Total 3232 903 Output Total 2175 1225 Balance 1057 -322 Weight 86.6 kg General appearance: PRESENT: no acute distress Head exam: PRESENT: atraumatic Eye exam: PRESENT: PERRLA Mouth exam: PRESENT: dry mucosa Neck exam: ABSENT: carotid bruit, JVD, lymphadenopathy, thyromegaly Respiratory exam: PRESENT: decreased breath sounds Cardiovascular exam: PRESENT: RRR. ABSENT: diastolic murmur, rubs, systolic murmur GI/Abdominal exam: PRESENT: normal bowel sounds, soft. ABSENT: distended, guarding, mass, organolmegaly, rebound, tenderness Extremities exam: PRESENT: full ROM. ABSENT: calf tenderness, clubbing, pedal edema Neurological exam: PRESENT: alert, awake, oriented to person, oriented to place, oriented to time, oriented to situation, CN II-XII grossly intact. ABSENT: motor sensory deficit Psychiatric exam: PRESENT: appropriate affect, normal mood. ABSENT: homicidal ideation, suicidal ideation Results Laboratory Results: 07/03/18 08:14 07/03/18 08:14 07/03/18 07/03/18 08:14 08:14 WBC 7.6 RBC 4.36 Hgb 11.9 L Hct 36.6 L MCV 84 MCH 27.2 MCHC 32.4 RDW 15.3 H Plt Count 250 Seg Neutrophils % 66.7 Lymphocytes % 17.4 Monocytes % 14.4 H Eosinophils % 0.7 Basophils % 0.8 Absolute Neutrophils 5.1 Absolute Lymphocytes 1.3 Absolute Monocytes 1.1 Absolute Eosinophils 0.1 Absolute Basophils 0.1 Sodium 143.2 Potassium 5.7 H Chloride 97 L Carbon Dioxide 37 H Anion Gap 9 BUN 34 H Creatinine 1.41 H Est GFR ( Amer) > 60 Est GFR (Non-Af Amer) 51 L Glucose 93 Calcium 9.1 Magnesium 2.1 Total Bilirubin 0.4 AST 33 ALT 21 Alkaline Phosphatase 85 Total Protein 7.2 Albumin 4.3 05/11/18 05/11/18 05/11/18 09:35 09:35 09:35 Creatine Kinase 37 L CK-MB (CK-2) Troponin I 0.071 NT-Pro-B Natriuret Pep 6800 H 05/11/18 05/11/18 05/12/18 12:30 19:00 01:06 Creatine Kinase CK-MB (CK-2) Troponin I 0.067 0.064 0.050 NT-Pro-B Natriuret Pep 05/23/18 05/24/18 05/27/18 10:36 09:38 10:01 Creatine Kinase CK-MB (CK-2) Troponin I 0.060 NT-Pro-B Natriuret Pep 819 889 06/03/18 06/08/18 06/08/18 08:12 13:40 13:40 Creatine Kinase 39 L CK-MB (CK-2) 1.92 Troponin I 0.060 NT-Pro-B Natriuret Pep 1420 H 06/08/18 06/08/18 06/09/18 19:03 19:03 00:59 Creatine Kinase 36 L 34 L CK-MB (CK-2) 1.75 Troponin I 0.058 NT-Pro-B Natriuret Pep 06/09/18 06/09/18 06/09/18 00:59 08:04 08:04 Creatine Kinase 32 L CK-MB (CK-2) 1.58 1.79 Troponin I 0.063 0.064 NT-Pro-B Natriuret Pep 06/09/18 06/09/18 06/09/18 12:52 12:52 19:00 Creatine Kinase 46 L 31 L CK-MB (CK-2) 1.99 Troponin I 0.051 NT-Pro-B Natriuret Pep 06/09/18 06/25/18 19:00 07:35 Creatine Kinase CK-MB (CK-2) 1.80 Troponin I 0.072 0.054 NT-Pro-B Natriuret Pep Impressions: Thoracentesis Ultrasound 05/13/18 10:06 IMPRESSION: SUCCESSFUL THORACENTESIS USING ULTRASOUND GUIDANCE. Chest X-Ray 06/27/18 21:30 IMPRESSION: No significant change. Assessment & Plan - Diagnosis (1) Acute and chronic respiratory failure with hypoxia Is this a current diagnosis for this admission?: Yes Plan: 05/19/2018 acute on chronic respiratory failure with hypoxia probably secondary to CHF exacerbation. He is on BiPAP for 3-4 hours/day. Plan is to continue the current management. 05/20/2018-patient was admitted for acute on chronic respiratory failure with hypoxia probably secondary to CHF exacerbation. He is using BiPAP 4 hours a day . No acute events in the last 24 hours. Plan is to continue the present management. 05/21/2018-patient is comfortably in the chair on 2 L oxygen via nasal cannula. Acute on chronic respiratory failure resolved with hypoxia resolved. Is awaiting for placement in [facility]. 05/22/2018-pulse ox on 2 L is 100% today. Patient is comfortably in the chair. Only complaint is his complaint of dry skin and itching. [facility] He is using BiPAP 3-4 hours a day. His acute on chronic respiratory failure with hypoxia probably secondary to CHF exacerbation. I am g oing to recheck his BMP tomorrow. Pt is not in fluid overload today. 05/23/2018 pulse ox on 2 L is 99% patient is able to walk in the hallway on 2 L oxygen without any problems. He did not have need to use the BiPAP in the last 24 hours. He has been BNP is around 820. no Signs of any fluid overload. Plan is to continue the present management. 05/24/2018 patient was admitted for acute on chronic respiratory failure with hypoxia hypoxia resolved. Patient is not on BiPAP anymore. Pulse ox is pulse ox is 91% on 2 L. Patient waiting for placement in [place]. 05/25/2018-2 L oxygen pulse ox 100% hypoxia with acute respiratory failure resolved patient is not using the BiPAP anymore. He is waiting for placement at [facility]. 06/02/2017-pulse ox on 2 L is 97% today. Using the BiPAP on and off. Waiting waiting to go to [facility] probably on Friday. The meantime will continue the present management. 06/03/2018-patient pulse ox is 99% on 2 L. He is using the BiPAP on and off. No complaints from the patient. Plan is to discharge him to [facility] on Friday. 06/04/2018-pulse ox is 100% on 2lts.using BIPAP on and off. no complaints. comfortable in chair eating lunch. 06/05/2018 pulse ox is 99% on 2 L. Not using the BiPAP at this time. Comfortably in the chair communicating well. Waiting for the placement. 06/06/2018-pulse ox on 2 L is 99%. Patient is not using the BiPAP anymore. He acute on chronic respiratory failure with hypoxia and hypercapnia resolved. 06/08/2018-pulse ox is 100% on 2 L. Patient is not on BiPAP anymore. Acute on chronic respiratory failure with hypoxia and hypercapnia resolved. 06/07/2018 patient pulse oxes are 98% on 2 L patient is off the BiPAP right now acute on chronic respiratory failure with hypoxia and hypercapnia resolved patient [facility]. 06/30/2018-patient was admitted with acute on chronic respiratory failure hypoxia probably secondary to CHF exacerbation. Pulse oxes 100% on 2 L. Using BiPAP at night. Plan is to continue the present management. 07/01/2018-patient was admitted with acute on chronic respiratory failure with hypoxia most likely secondary to CHF exacerbation. Patient is in the BiPAP at night. Pulse ox today is 100% on 2 L. Patient is comfortably in the chair no complaints. 07/02/2018-patient was admitted with acute on chronic respiratory failure with hyp oxia most likely to CHF exacerbation. He is on oxygen 2 L via nasal cannula pulse ox is 96%. He is using the BiPAP at night. 07/03/2018-patient was admitted with acute on chronic respiratory failure with hypoxia most likely secondary to congestive heart failure. Patient is presently on 2 L oxygen pulse ox is 99%. Uses BiPAP at night. He acute on chronic respiratory failure with hypoxia is resolved. (2) Acute on chronic systolic (congestive) heart failure Is this a current diagnosis for this admission?: Yes Plan: Combined systolic and diastolic biventricular failure. Continue Lasix 40 mg daily. Cardiology following. Echo shows an EF of 30-35%, grade 2 diastolic dysfunction and dilated left and right ventricular. Patient already has an AICD. Patient is not on UZMA inhibitor hence is not on optimal medical therapy. CHF medication regimen cannot be optimized as patient has had angioedema from captopril before. Both UZMA inhibitors and Entresto will be contraindicated to a history of ACEi-associated angioedema. Discussed with cardio and pulm. Recommendation for BIPAP at home/discharge for his biventricular heart failure and significant pulmonary hypertension. Continue Coreg and Aldactone. 05/16/18: Decreased Lasix to 40 mg IV daily from q12 due to alkalosis. 05/19/2018-patient has history of congestive heart failure. Which is combined systolic diastolic biventricular failure. Patient is on Lasix 40 mg IV twice daily. cardiology on board. EF is 30-35%. Grade 2 diastolic dysfunction and dilated left and right ventricular chambers. Patient has AICD. Patient is not on UZMA inhibitors because of history of angioedema. UZMA inhibitors and Entresto are not contraindicated because of the ACEi associated angioedema. Patient is also on Coreg and Aldactone. [facility]. 05/20/2018-has a combined systolic diastolic biventricular failure. EF is 30- 35%. Echocardiogram shows grade 2 diastolic dysfunction and dilated left and right ventricular chambers. Patient has AICD. Patient is not on UZMA inhibitors because of history of angioedema. Stoped Aldactone today because potassium is 5.1. 05/21/2018-patient has history of congestive heart failure combined systolic diastolic biventricular failure with EF of 30-35%. Patient is allergic to UZMA inhibitors gives angioedema. Latest potassium is 5.1. We are going to check his potassium levels today. Yesterday I stopped his spironolactone and we stopped potassium supplementation. 05/22/2018-his latest potassium is 5.0 potassium supplementation was discontinued spironolactone was discontinued, has EF is 30-35%. Patient is not in fluid overload I am going to follow the patient regular basis. 05/23/2018-potassium level is 5.0 stable patient ejection fraction is 30-45%. Patient has combined systolic diastolic biventricular heart failure. He has AICD. And is to continue the present management. 05/24/2018-patient's has a biventricular systolic and diastolic heart failure with EF of 35-40%. Patient has AICD. He is on Lasix 40 IV daily I am going to switch her to 40 mg p.o. daily. 05/25/2018-patient is not in fluid overload chest was clear no pedal edema. He has biventricular systolic/diastolic heart failure with EF of 35-40%. He is on Lasix.Combined systolic and diastolic biventricular failure. Continue Lasix 40 mg daily. Cardiology following. Echo shows an EF of 30-35%, grade 2 diastolic dysfunction and dilated left and right ventricular. Patient already has an AICD. Patient is not on UZMA inhibitor hence is not on optimal medical therapy. CHF medication regimen cannot be optimized as patient has had angioedema from captopril before. Both UZMA inhibitors and Entresto will be contraindicated to a history of ACEi-associated angioedema. Discussed with cardio and pulm. Alejandro mmendation for BIPAP at home/discharge for his biventricular heart failure and significant pulmonary hypertension. Continue Coreg. Aldactone was d/raghav due to his potassium trending up. Aldactone resumed. Continue Lasix 40 mg daily. 06/02/2017-patient has combined systolic and diastolic biventricular failure he is on Lasix 40 mg p.o. daily and also on Aldactone. Patient is not in fluid overload. And is to continue the present management. 06/03/2017 patient has history of combined systolic diastolic biventricular failure on Lasix 40 mg p.o. daily and is also on Aldactone potassium levels go ing back up again it was 5.2 today I am going to stop the Aldactone and and follow the potassium levels. 06/04/2018-pt is not in fluid overload. plan to continue present treatment. 06/05/2018-patient has history of for combined systolic/diastolic biventricular failure on Lasix 40 mg p.o. daily Aldactone was discontinued because of the persistently elevated potassium levels. Potassium level today is 3.7. 06/06/2018-patient has a biventricular heart failure with EF of less than 30% patient is not in fluid overload. Plan is to continue the present management. 06/08/2018-patient has history of heart failure with EF of less than 30% patient is not in fluid overload. He has AICD. 06/07/2018 patient has history of biventricular heart failure with EF of less than 30% patient is not in fluid overload plan is to continue the present management. 06/30/2018-patient has history of combined systolic diastolic biventricular heart failure. Cardiology consult was done echocardiogram shows EF of 30-35% grade 2 diastolic dysfunction and dilated left and right heart ventricules. Patient is presently on Lasix 20 mg p.o. daily. Not in fluid overload. Plan is to check a BNP and labs tomorrow. Latest BNP is 1490. 07/02/2018 patient has history of biventricular heart failure. Is also systolic and diastolic heart failure echocardiogram with EF of 30-35% and grade 2 diastolic dysfunction with a dilated left and right ventricles. Patient is presently on Lasix 20 mg p.o. daily not in fluid overload. His creatinine is slowly trending up. I am going to hold his Lasix for now. 07/03/2018-patient has history of biventricular failure. EF is 30-35%. In association with a diastolic dysfunction. Patient is on Lasix 20 mg daily. Plan is to increase the Lasix to 40 mg daily because of the persistently elevated potassium levels. (3) Pleural effusion Is this a current diagnosis for this admission?: Yes Plan: 05/19/2018-patient came in with a right-sided pleural effusion status post thoracentesis on 05/13/2018 with removal of 750 cc of fluid. Fluid analysis consistent with transudate. Which is likely secondary to CHF. Negative for infection. 05/20/2018-patient came in with right pleural effusion status post thoracentesis on 05/13/2018. The cultures are negative. 05/21/2018 status post thoracentesis of right pleural effusion 750 cc of fluid was removed. cultures Negative. 05/23/2018 during this hospital stay he had a right-sided thoracentesis. And 750 cc of fluid was removed. I am going to redo the chest x-ray today. 05/25/2018-status post right-sided thoracentesis. On examination decreased air entry at the right base. Probably persistent pleural effusion. 06/12/2017 status post right-sided thoracentesis with 750 cc of fluid removal on 05/13/2018. Pleural fluid analysis is consistent with transudate to effusion most likely secondary to patient's congestive heart failure. 06/30/2018 latest chest x-ray done on 06/27/2018 shows moderate right pleural effusion. Seen by summer child caregiver on 06/27/2018. Plan is to continue the present management. He had a right-sided thoracentesis was done on 05/13/2019 with removal of 750 cc of fluid. 07/01/2018 on 05/13/2019 750 cc of fluid was removed after thoracentesis. Follow- up chest x-ray shows stable right pleural effusion. Patient is not in respirato ry distress. Plan is to continue the present management. 07/02/2018 follow-up chest x-rays indicates stable pleural effusions. Patient is not in respiratory distress. Plan is to continue the present management. 07/03/2018-thoracentesis was done on 05/13/2019 with removal of 750 mL of fluid follow-up x-ray shows stable pleural effusions am going to repeat the chest x- ray today again. (4) CAD (coronary artery disease) Is this a current diagnosis for this admission?: Yes Plan: 05/19/2018 patient has history of coronary artery disease. No complaints of any chest pains in the last 24-48 hours. Patient is on statins, aspirin, beta- blockers. Plan is to continue the present management. 05/20/2018 patient history of coronary artery disease. No complaints of any chest pains during the hospital stay. 05/21/2018 plan is to continue the current management. 05/22/2018 patient is on statins aspirin and beta-blockers no complaints of chest pain. Plan is to continue the present management. 05/23/2018-plan is to continue the present management patient is asymptomatic. 09/22/2017-patient has history of coronary artery disease, no complaints of chest pain during the hospital stay. 06/03/2018-patient has history of coronary artery disease no complaints of chest pain during the hospital stay. 06/04/2018- to continue present rx 06/08/2018 patient has history of coronary artery disease status post stent placement. Today he is complaining of chest pains requested for stat EKG cardiac enzymes x3. plan to start on nitroglycerin 0.4 mg every 5 minutes as needed for chest pain. 06/30/2018-patient has history of coronary artery disease status post stent placement. He is asymptomatic during the hospital stay. Presently is on aspirin, statin and beta-steve. Plan is to continue the present management. 07/01/2018 patient has history of coronary artery disease status post stent placement. Patient is asymptomatic during the hospital stay. Presently he is on aspirin statin and beta blockers. 07/02/2018 patient has history of coronary artery disease status post stent placement. Presently on aspirin, statin, beta blockers. No complaints of chest pain. 07/03/2018-patient has history of coronary artery disease status post stent placement. No complaints of chest pain. Plan is to continue aspirin statin and beta-blockers. (5) Hyperkalemia Is this a current diagnosis for this admission?: Yes Plan: Potassium level on 06/28/2018 is 5.4. He was off the Aldactone. Plan is to check a CMP today. If the potassium is still high I am going to put him on Kayexalate. 07/01/2018 patient potassium level is 5.3 yesterday. He is not on any potassium sparing diuretics. Started on Kayexalate 15 mL twice a day. 07/02/2018 latest potassium is 5.2 he was started on Kayexalate and daily basis. Plan is to recheck the labs tomorrow. 07/03/2018 latest potassium level is 5.7. Going to put him on Kayexalate 30 mg p.o. every 6 hours, started on Veltassa 8.4 gm daily. Plan to recheck the labs tomorrow. (6) DEANNA (acute kidney injury) Is this a current diagnosis for this admission?: Yes Plan: 06/30/2018-patient was admitted with acute kidney injury which was resolved. Creatinine latest one is 1.28 at baseline. Presently on Lasix 20 mg p.o. daily. Plan is to check creatinine panel tomorrow. 07/01/2018-patient was admitted with elevated creatinine levels 1.45 present creatinine is 1.38 acute kidney injury is resolved. 07/02/2018 latest creatinine is 1.5-20 Slowly. Plan to stop allopurinol and Lasix. To recheck his renal panel tomorrow. Worsening kidney function may be secondary to medications/prerenal causes. 07/03/2018-patient's latest creatinine is 1.4 it is fluctuating between 1.25-1.4. Plan is to check the daily labs. (7) Gouty arthritis Is this a current diagnosis for this admission?: Yes Plan: 06/30/2018-patient has history of gouty arthritis complaining of left foot pain and right hand pain plan is to check his uric acid levels. Started on Percocet 5/25 mg every 6 as needed. To check uric acid levels. Started on allopurinol 100 mg p.o. twice daily. 07/01/2018 uric acid levels came back at 7.8. Within normal range. Patient was started on allopurinol 100 mg p.o. twice daily and he says is not helping him at all. He was also placed on Percocet yesterday. 07/02/2018 patient is complaining of arthritis he thinks it was gouty arthritis. Uric acid level is 7.8 patient is on prednisone 10 mg p.o. twice daily. Because of the worsening renal function allopurinol was discontinued. 12/2018-patient is still complaining for arthritis he thinks is gouty arthritis wants to be on allopurinol. I tried to explain to him because of these poor kidney function may be allopurinol may not be a good option, presently we will continue to give Percocets for pains. Patient is also on a small dose of prednisone. - Time Time Spent with patient: 15-24 minutes Smoking Cessation Education: over 10 minutes Medications reviewed and adjusted accordingly: Yes Anticipated discharge: Home
[2018-07-03] MEDS ORDERED: PATIROMER 8.4 GM SUSP PACKET PO SCH (17:00)
[2018-07-03] MEDS: SODIUM POLYSTYRENE SULFONATE 15 GM/60 ML PO SCH (17:57)
[2018-07-03] MEDS: PATIROMER 8.4 GM SUSP PACKET PO SCH (21:34)
--- NOTE | 2018-07-03 22:09 | RADIOLOGY REPORT (SQ) ---
EXAM DESCRIPTION: XR CHEST 2 VIEWS COMPLETED DATE/TME: 07/03/2018 00:00 CLINICAL HISTORY: 62 years, Male, bilateral plural effusions COMPARISON: 2-19 chest NUMBER OF VIEWS: 2 TECHNIQUE: Frontal and lateral views of the chest LIMITATIONS: None. FINDINGS: Cardiomegaly. Mild pulmonary vascular congestion. Left-sided pacing device. Small bilateral pleural effusions. Osteopenia. No pneumothorax. IMPRESSION: Cardiomegaly. Small bibasilar effusions. Mild pulmonary vascular congestion. copyright 2010 [employer]- All Rights Reserved
[2018-07-03] MEDS: ROPINIROLE HCL 0.25 MG TABLET PO SCH (22:13)
[2018-07-04] MEDS: SODIUM POLYSTYRENE SULFONATE 15 GM/60 ML PO SCH ×3 (00:54→13:51)
[2018-07-04] MEDS: LANSOPRAZOLE 30 MG TAB.RAP.DR PO SCH ×2 (05:56→17:12)
[2018-07-04 08:37] LABS: ABSOLUTE BASOPHILS # (AUTO) 0.1 10^3/uL (0.0-0.2); ABSOLUTE EOSINOPHILS # (AUTO) 0.1 10^3/uL (0.0-0.6); ABSOLUTE LYMPHOCYTES (AUTO) 1.2 10^3/uL (0.5-4.7); ABSOLUTE MONOCYTES (AUTO) 1.2 10^3/uL (0.1-1.4); BASOPHILS % (AUTO) 0.8 % (0-2); EOSINOPHILS % (AUTO) 0.9 % (0-6); HEMATOCRIT 35.5 % (37.9-51.0); HEMOGLOBIN 11.6 g/dL (13.5-17.0); MEAN CORPUSCULAR HEMOGLOBIN 27.5 pg (27.0-33.4); MEAN CORPUSCULAR HGB CONC 32.6 g/dL (32.0-36.0); MEAN CORPUSCULAR VOLUME 84 fl (80-97); MONOCYTES % (AUTO) 15.7 % (3-13); PLATELET COUNT 231 10^3/uL (150-450); RED BLOOD COUNT 4.22 10^6/uL (4.35-5.55); RED CELL DISTRIBUTION WIDTH 15.2 % (11.5-14.0); SEGMENTED NEUTROPHILS % (AUTO) 66.6 % (42-78); TOTAL CELLS COUNTED % (AUTO) 100 %; WHITE BLOOD COUNT 7.6 10^3/uL (4.0-10.5)
[2018-07-04 09:01] LABS: ALANINE AMINOTRANSFERASE 32 U/L (21-72); ALBUMIN 4.2 g/dL (3.5-5.0); ALKALINE PHOSPHATASE 84 U/L (38-126); ANION GAP 9 (5-19); ASPARTATE AMINO TRANSFERASE 37 U/L (17-59); BILIRUBIN,DIRECT 0.4 mg/dL (0.0-0.4); BILIRUBIN,TOTAL 0.5 mg/dL (0.2-1.3); BLOOD UREA NITROGEN 36 mg/dL (7-20); CARBON DIOXIDE 32 mmol/L (22-30); CHLORIDE 100 mmol/L (98-107); GLUCOSE 101 mg/dL (75-110); POTASSIUM 5.6 mmol/L (3.6-5.0); SODIUM 141.1 mmol/L (137-145); TOTAL PROTEIN 7.1 g/dL (6.3-8.2)
[2018-07-04] MEDS: POLYETHYLENE GLYCOL 3350 POWDER 17 GM/1 PACKET PO SCH (10:37)
[2018-07-04] MEDS: ACETAMINOPHEN 325 MG TABLET PO SCH ×4 (10:58→21:21)
[2018-07-04] MEDS: DOCUSATE SODIUM 100 MG CAPSULE PO SCH ×2 (10:58→17:12)
[2018-07-04] MEDS: CARVEDILOL 3.125 MG TABLET PO SCH ×2 (10:58→21:22)
[2018-07-04] MEDS: FUROSEMIDE 40 MG TABLET PO SCH (10:59)
[2018-07-04] MEDS: GABAPENTIN 300 MG CAPSULE PO SCH ×2 (10:59→21:22)
[2018-07-04] MEDS: DIGOXIN 0.125 MG TABLET PO SCH (10:59)
[2018-07-04] MEDS: ASPIRIN 81 MG TABLET, CHEWABLE PO SCH (10:59)
[2018-07-04] MEDS: PREDNISONE 10 MG TABLET PO SCH ×2 (10:59→17:12)
[2018-07-04] MEDS: CYCLOSPORINE 0.05% OPH EMULSIO 0.4 ML DROPERETTE OU SCH (11:00)
--- NOTE | 2018-07-04 12:17 | PDOC PROGRESS REPORT ---
Subjective Progress Note for:: 07/04/18 Subjective:: This is a 62-year-old male with a past medical history of CAD, prior CABG, COPD, diet-controlled DM, chronic systolic heart failure from ischemic cardiomyopathy with prior AICD placement, chronic respiratory failure on home O2, history of CVA with residual partial expressive aphasia who initially presented with increasing shortness of breath and leg swelling. Patient was admitted for CHF exacerbation. Patient has partial expressive aphasia (has some residual slurring and pauses) but is coherent and is able to converse with provider. He says his SOB is at baseline but he becomes short of breath when lying supine. He has been having persistent orthopnea. 05/13: Discussed in length again this morning with caregiver (Nuria) and patient. We discussed the need for thoracentesis again this morning including the indication due to his persistent orthopnea and significant bilateral pleural effusion. Also discussed the small risk of pneumothorax. Patient did agree undergo thoracentesis as he has been having patient orthopnea. Patient is oriented to person, place and situation. Also discussed with conservation planner on bedside about possible option to be transferred to a [facility] in [place] as patient is a his history of placement and disposition. He does not want to be transferred at this time and would prefer to stay here. 05/14: Patient does appear to have into capacity to make his own medical decisions. Patient was also evaluated by psych who deemed the same. Discussed in length again today about plan and disposition. Patient says he does not want to go to a chcf or rehab. He also does not want to talk about his CODE STATUS and says that he will "sort it out" later. Offered palliative care consult and he is receptive to it but not hospice. He says his breathing has improved after the thoracentesis. Acquisition Consultant recommended BiPAP at home. Patient is resistant on using BiPAP at home but agrees to try it here while inpatient and see if he tolerates it. 05/15: Upon encounter this morning, patient was sleeping on the recliner. Patient says that his house is not fixed yet. He says he does not want to go to any of the surrounding SNF/rehab facilities at this time but is agreeable to being transferred to the [facility] in [place]. Convinced on trying the BiPAP and he says he will try wearing it. 05/16: No acute event overnight. Patient has complied with BIPAP. He says his breathing has slightly improved but still has orthopnea. Denies chest pain or dizziness. 05/17: Patient says his breathing has improved and he feels better today. He says he can use the BIPAP for 2 hrs but is willing to try to extend it to 3-4 hrs today. 05/18: Patient only used BIPAP for 1.5 hrs last night. Upon encounter, he does say that he breathes and feels better when on BIPAP. He was advised on increa sing his BIPAP use again today. He denies worsening SOB or chest pain. Still awaiting for update on transfer to [facility] in [facility]. 05/19/2018-no acute events in the last 24 hours as per the patient he is using BiPAP 3-4 hours a day. He is comfortably in the chair on oxygen via nasal tom kurt. Denies any problems. Waiting for placement in [facility]. 05/20/2018-no acute events in the last 24 hours. Patient is on oxygen via nasal cannula walking in the room. Denies any complaints. Using BiPAP 4 hours a day. Patient is waiting for placement at [facility]. 05/21/2018 no acute events in the last 24 hours. Patient is complaining of pain in both arms. I am going to put him on Percocet 09/25/2024 every 8 as needed for pain. Patient is on 2 L nasal cannula pulse ox is 96%. He is using BiPAP 4 hours a day. 05/22/2018-no acute events over the last 24 hours. Patient is afebrile. Patient is complaining of dry skin and itching he wants some Benadryl. 05/23/2018 no acute events in the last 24 hours. His BiPAP requirements are decreased. Patient is afebrile. His pulse ox is 99% on 2 L. Notably sitting in the bed communicating okay. 05/24/2018 -no acute events in the last 24 hours. Patient pulse oxes 99% on 2 L. Is comfortably sleeping in his chair. Denies any complaints. 05/25/2018-no acute events in the last 24 hours. Pulse ox is 100% on 2 L. He is comfortable in the chair communicating very well. Denies any complaints. [facility] 05/26/18: He has been more complaint with BIPAP. He denies acute SOB and feels like he is at his baseline. 05/27/18: No acute event overnight. He did complaint of transient chest tightness this morning after he ate a big breakfast (ham and omelet). He says it only lasted for a few seconds. EKG was negative for acute changes. 05/28/18: No acute event. No acute symptoms, no chest pain or SOB. He is at his baseline. 05/29/18: No acute event. Patient denies any acute complaint. Updated by RN and conservation planner that patient's house will be condemned due to multiple issues. 05/30/18: No acute issues. Patient is still awaiting placement. 05/31/18:Patient is still awaiting placement. Discussed with Eryn on bedside, patient's supervisor [employer] who says she is getting her new house this friday and may be able to have patient live with her. 06/01/18: No acute issues. Plan to discharge patient to her supervisor [employer]'s new house later this week with home health. Loss Prevention Guard says she is confident she is able to take care of him at her new house. Patient also prefers discussed disposition. 06/02/2018-patient is afebrile no acute events in the last 24 hours patient waiting to go to caretakers home. 06/03/2018 no acute events in last 24 hours. Patient is comfortable in the chair talking to the family members on the phone. Denies any complaints. 06/04/2018-no acute events in the last 24 hrs. afebrile .pulse ox 98% on 2lts. 06/05/2018-no acute events in the last 24 hours. Patient is afebrile. Pulse ox is 99% on 2 L. 06/06/2018-no acute events in the last 24 hours. Patient is afebrile. Comfortably in the chair sleeping. Denies any complaints. 06/07/2018 patient is afebrile and doing well no complaints no acute events in the last 24 hours. 2018 has saw the patient this morning is comfortably in the chair complaining of left hand pain resting pain medications. His pulse ox are stable. Afebrile. Few minutes ago nurse location analyst Spencer called me to notify that patient is complaining of chest pains vital signs are stable pulse ox is normal so I requested him to do the EKG and cardiac enzymes x3 along with nitroglycerin 0.5 mg subcu every 5 minutes as needed for chest pain. 06/09/18: Reassumed care today. No acute issues in the interim. Patient still here due to placement issues. Apparently, his supervisor [employer]'s house was not ready yet. He is at his baseline and denies chest pain or SOB at the moment. 06/13/18: No acute issues. Denies chest pain or SOB. Discussed on bedside with Eryn (supervisor securities [employer]) today who says they are still doing repairs for a leakage at her house. Patient has remained stable with no acute issues in the interim and is still waiting for placement. 06/23/18: Reassumed care today. No acute issues. 06/24/18: No acute issues. He denies acute complaints. Still awaiting placement. [facility] 06/25/18: Patient reportedly tripped last night but did not fall on the floor. Otherwise, he denies acute complaints. 2: No acute event overnight. He is asleep upon encounter. When he woke up, he complains of heartburn. He says it is not chest pain but more of a burning sen sation on the chest which he had in the past. He was given a GI cocktail which completely resolved his heartburn. 2: No acute event overnight. Denies chest pain or SOB. No recurrence of heartburn. He does say he continues to have intermittent pain on the left hand joints and right foot. He says he has a history of gouty arthritis. Will add low dose prednisone. 23: No acute event overnight. Re evaluated by pulmonology yesterday and repeat CXR was ordered which showed stable changes, no worsening of pleural effusion. He says his hand and right foot joint pains improved with the prednisone. Denies chest pain or SOB. He says Eryn told him, the house may be ready by Friday (06/30). 06/29: No acute issues. Denies SOB or chest pain. Still awaiting placement. 06/30/2018 no acute events in the last 24 hours. Patient is afebrile. Patient is complaining of left foot pain and hand pain. He has history of gout. Be going to check his uric acid level, started him on allopurinol 100 mg p.o. twice daily and switched tramadol to Percocet every 6 as needed for pain. 07/01/2018 no acute events in the last 24 hours. Patient is afebrile. Patient is complaining of left foot pain and right hand pain yesterday uric acid levels were done uric acid level 7.8 within normal limits. He was started on allopurinol and the patient states is not helping him at all. 07/02/2018-patient is still complaining of gouty arthritis. Uric acid level is 7.8 which was normal. Patient is on prednisone 10 mg p.o. twice daily and also on allopurinol 100 mg p.o. twice daily. She is also receiving Percocets every 6 as needed. Patient was reassured. No other complaints. 07/03/2018 no acute events in the last 24 hours. Patient is afebrile. Waiting for the placement. 07/04/2018-no acute events in the last 24 hours. Afebrile. Patient is comfortably sleeping in the chair. Waiting for the placement. Reason For Visit: CHF Physical Exam Vital Signs: Temp Pulse Resp BP Pulse Ox 98.0 F 99 16 121/82 100 07/04/18 08:33 07/04/18 08:33 07/04/18 08:33 07/04/18 08:33 07/04/18 08:33 Intake & Output 07/03/18 07/04/18 07/05/18 06:59 06:59 06:59 Intake Total 903 1770 Output Total 1225 830 Balance -322 940 Weight 86.6 kg General appearance: PRESENT: no acute distress Head exam: PRESENT: atraumatic Eye exam: PRESENT: PERRLA Mouth exam: PRESENT: moist Neck exam: ABSENT: carotid bruit, JVD, lymphadenopathy, thyromegaly Respiratory exam: PRESENT: decreased breath sounds Cardiovascular exam: PRESENT: RRR, other. ABSENT: diastolic murmur, rubs, systolic murmur GI/Abdominal exam: PRESENT: normal bowel sounds, soft. ABSENT: distended, guarding, mass, organolmegaly, rebound, tenderness Extremities exam: PRESENT: full ROM. ABSENT: calf tenderness, clubbing, pedal edema Neurological exam: PRESENT: alert, awake, oriented to person, oriented to place, oriented to time, oriented to situation, CN II-XII grossly intact. ABSENT: motor sensory deficit Psychiatric exam: PRESENT: appropriate affect, normal mood. ABSENT: homicidal ideation, suicidal ideation Results Laboratory Results: 07/04/18 08:21 07/04/18 08:21 07/04/18 07/04/18 08:21 08:21 WBC 7.6 RBC 4.22 L Hgb 11.6 L Hct 35.5 L MCV 84 MCH 27.5 MCHC 32.6 RDW 15.2 H Plt Count 231 Seg Neutrophils % 66.6 Lymphocytes % 16.0 Monocytes % 15.7 H Eosinophils % 0.9 Basophils % 0.8 Absolute Neutrophils 5.0 Absolute Lymphocytes 1.2 Absolute Monocytes 1.2 Absolute Eosinophils 0.1 Absolute Basophils 0.1 Sodium 141.1 Potassium 5.6 H Chloride 100 Carbon Dioxide 32 H Anion Gap 9 BUN 36 H Creatinine 1.30 H Est GFR ( Amer) > 60 Est GFR (Non-Af Amer) 56 L Glucose 101 Calcium 9.0 Magnesium 2.3 Total Bilirubin 0.5 AST 37 ALT 32 Alkaline Phosphatase 84 Total Protein 7.1 Albumin 4.2 05/11/18 05/11/18 05/11/18 09:35 09:35 09:35 Creatine Kinase 37 L CK-MB (CK-2) Troponin I 0.071 NT-Pro-B Natriuret Pep 6800 H 05/11/18 05/11/18 05/12/18 12:30 19:00 01:06 Creatine Kinase CK-MB (CK-2) Troponin I 0.067 0.064 0.050 NT-Pro-B Natriuret Pep 05/23/18 05/24/18 05/27/18 10:36 09:38 10:01 Creatine Kinase CK-MB (CK-2) Troponin I 0.060 NT-Pro-B Natriuret Pep 819 889 06/03/18 06/08/18 06/08/18 08:12 13:40 13:40 Creatine Kinase 39 L CK-MB (CK-2) 1.92 Troponin I 0.060 NT-Pro-B Natriuret Pep 1420 H 06/08/18 06/08/18 06/09/18 19:03 19:03 00:59 Creatine Kinase 36 L 34 L CK-MB (CK-2) 1.75 Troponin I 0.058 NT-Pro-B Natriuret Pep 06/09/18 06/09/18 06/09/18 00:59 08:04 08:04 Creatine Kinase 32 L CK-MB (CK-2) 1.58 1.79 Troponin I 0.063 0.064 NT-Pro-B Natriuret Pep 06/09/18 06/09/18 06/09/18 12:52 12:52 19:00 Creatine Kinase 46 L 31 L CK-MB (CK-2) 1.99 Troponin I 0.051 NT-Pro-B Natriuret Pep 06/09/18 06/25/18 07/04/18 19:00 07:35 08:21 Creatine Kinase CK-MB (CK-2) 1.80 Troponin I 0.072 0.054 NT-Pro-B Natriuret Pep 1660 H Impressions: Thoracentesis Ultrasound 05/13/18 10:06 IMPRESSION: SUCCESSFUL THORACENTESIS USING ULTRASOUND GUIDANCE. Chest X-Ray 07/03/18 00:00 IMPRESSION: Cardiomegaly. Small bibasilar effusions. Mild pulmonary vascular congestion. copyright 2010 [employer]- All Rights Reserved Assessment & Plan - Diagnosis (1) Acute and chronic respiratory failure with hypoxia Is this a current diagnosis for this admission?: Yes Plan: 05/19/2018 acute on chronic respiratory failure with hypoxia probably secondary to CHF exacerbation. He is on BiPAP for 3-4 hours/day. Plan is to continue the current management. 05/20/2018-patient was admitted for acute on chronic respiratory failure with hypoxia probably secondary to CHF exacerbation. He is using BiPAP 4 hours a day. No acute events in the last 24 hours. Plan is to continue the present management. 05/21/2018-patient is comfortably in the chair on 2 L oxygen via nasal cannula. Acute on chronic respiratory failure resolved with hypoxia resolved. Is awaiting for placement in [facility]. 05/22/2018-pulse ox on 2 L is 100% today. Patient is comfortably in the chair. Only complaint is his complaint of dry skin and itching. [facility] He is using BiPAP 3-4 hours a day. His acute on chronic respiratory failure with hypoxia probably secondary to CHF exacerbation. I am going to recheck his BMP tomorrow. Pt is not in fluid overload today. 05/23/2018 pulse ox on 2 L is 99% patient is able to walk in the hallway on 2 L oxygen without any problems. He did not have need to use the BiPAP in the last 24 hours. He has been BNP is around 820. no Signs of any fluid overload. Plan is to continue the present management. 05/24/2018 patient was admitted for acute on chronic respiratory failure with hypoxia hypoxia resolved. Patient is not on BiPAP anymore. Pulse ox is pulse ox is 91% on 2 L. Patient waiting for placement in [place]. 05/25/2018-2 L oxygen pulse ox 100% hypoxia with acute respiratory failure resolved patient is not using the BiPAP anymore. He is waiting for placement at [facility]. 06/02/2017-pulse ox on 2 L is 97% today. Using the BiPAP on and off. Waiting waiting to go to [facility] probably on Friday. The meantime will continue the present management. 06/03/2018-patient pulse ox is 99% on 2 L. He is using the BiPAP on and off. No complaints from the patient. Plan is to discharge him to [facility] on Friday. 06/04/2018-pulse ox is 100% on 2lts.using BIPAP on and off. no complaints. comfortable in chair eating lunch. 06/05/2018 pulse ox is 99% on 2 L. Not using the BiPAP at this time. Comfortably in the chair communicating well. Waiting for the placement. 06/06/2018-pulse ox on 2 L is 99%. Patient is not using the BiPAP anymore. He acute on chronic respiratory failure with hypoxia and hypercapnia resolved. 06/08/2018-pulse ox is 100% on 2 L. Patient is not on BiPAP anymore. Acute on chronic respiratory failure with hypoxia and hypercapnia resolved. 06/07/2018 patient pulse oxes are 98% on 2 L patient is off the BiPAP right now acute on chronic respiratory failure with hypoxia and hypercapnia resolved patient waiting for placement at the [facility]. 06/30/2018-patient was admitted with acute on chronic respiratory failure hypoxia probably secondary to CHF exacerbation. Pulse oxes 100% on 2 L. Using BiPAP at night. Plan is to continue the present management. 07/01/2018-patient was admitted with acute on chronic respiratory failure with hypoxia most likely secondary to CHF exacerbation. Patient is in the BiPAP at night. Pulse ox today is 100% on 2 L. Patient is comfortably in the chair no complaints. 07/02/2018-patient was admitted with acute on chronic respiratory failure with hypoxia most likely to CHF exacerbation. He is on oxygen 2 L via nasal cannula pulse ox is 96%. He is using the BiPAP at night. 07/03/2018-patient was admitted with acute on chronic respiratory failure with hypoxia most likely secondary to congestive heart failure. Patient is presently on 2 L oxygen pulse ox is 99%. Uses BiPAP at night. He acute on chronic respiratory failure with hypoxia is resolved. 07/04/2018-patient was admitted with acute on chronic respiratory failure with hypoxia most likely secondary to exacerbation of congestive heart failure. Pulse ox is 100% on 2 L. Plan is to continue the present management. (2) Acute on chronic systolic (congestive) heart failure Is this a current diagnosis for this admission?: Yes Plan: Combined systolic and diastolic biventricular failure. Continue Lasix 40 mg daily. Cardiology following. Echo shows an EF of 30-35%, grade 2 diastolic dysfunction and dilated left and right ventricular. Patient already has an AICD. Patient is not on UZMA inhibitor hence is not on optimal medical therapy. CHF medication regimen cannot be optimized as patient has had angioedema from captopril before. Both UZMA inhibitors and Entresto will be contraindicated to a history of ACEi-associated angioedema. Discussed with cardio and pulm. Recommendation for BIPAP at home/discharge for his biventricular heart failure and significant pulmonary hypertension. Continue Coreg and Aldactone. 05/16/18: Decreased Lasix to 40 mg IV daily from q12 due to alkalosis. 05/19/2018-patient has history of congestive heart failure. Which is combined systolic diastolic biventricular failure. Patient is on Lasix 40 mg IV twice daily. cardiology on board. EF is 30-35%. Grade 2 diastolic dysfunction and dilated left and right ventricular chambers. Patient has AICD. Patient is not on UZMA inhibitors because of history of angioedema. UZMA inhibitors and Entresto are not contraindicated because of the ACEi associated angioedema. Patient is also on Coreg and Aldactone. And [facility]. 05/20/2018-has a combined systolic diastolic biventricular failure. EF is 30- 35%. Echocardiogram shows grade 2 diastolic dysfunction and dilated left and right ventricular chambers. Patient has AICD. Patient is not on UZMA inhibitors because of history of angioedema. Stoped Aldactone today because potassium is 5.1. 05/21/2018-patient has history of congestive heart failure combined systolic diastolic biventricular failure with EF of 30-35%. Patient is allergic to UZMA inhibitors gives angioedema. Latest potassium is 5.1. We are going to check his potassium levels today. Yesterday I stopped his spironolactone and we stopped potassium supplementation. 05/22/2018-his latest potassium is 5.0 potassium supplementation was discontinued spironolactone was discontinued, has EF is 30-35%. Patient is not in fluid overload I am going to follow the patient regular basis. 05/23/2018-potassium level is 5.0 stable patient ejection fraction is 30-45%. Patient has combined systolic diastolic biventricular heart failure. He has AICD. And is to continue the present management. 05/24/2018-patient's has a biventricular systolic and diastolic heart failure with EF of 35-40%. Patient has AICD. He is on Lasix 40 IV daily I am going to switch her to 40 mg p.o. daily. 05/25/2018-patient is not in fluid overload chest was clear no pedal edema. He has biventricular systolic/diastolic heart failure with EF of 35-40%. He is on Lasix.Combined systolic and diastolic biventricular failure. Continue Lasix 40 mg daily. Cardiology following. Echo shows an EF of 30-35%, grade 2 diastolic dysfunction and dilated left and right ventricular. Patient already has an AI CD. Patient is not on UZMA inhibitor hence is not on optimal medical therapy. CHF medication regimen cannot be optimized as patient has had angioedema from captopril before. Both UZMA inhibitors and Entresto will be contraindicated to a history of ACEi-associated angioedema. Discussed with cardio and pulm. Recommendation for BIPAP at home/discharge for his biventricular heart failure and significant pulmonary hypertension. Continue Coreg. Aldactone was d/raghav due to his potassium trending up. Aldactone resumed. Continue Lasix 40 mg daily. 06/02/2017-patient has combined systolic and diastolic biventricular failure he is on Lasix 40 mg p.o. daily and also on Aldactone. Patient is not in fluid overload. And is to continue the present management. 06/03/2017 patient has history of combined systolic diastolic biventricular failure on Lasix 40 mg p.o. daily and is also on Aldactone potassium levels going back up again it was 5.2 today I am going to stop the Aldactone and and follow the potassium levels. 06/04/2018-pt is not in fluid overload. plan to continue present treatment. 06/05/2018-patient has history of for combined systolic/diastolic biventricular failure on Lasix 40 mg p.o. daily Aldactone was discontinued because of the persistently elevated potassium levels. Potassium level today is 3.7. 06/06/2018-patient has a biventricular heart failure with EF of less than 30% patient is not in fluid overload. Plan is to continue the present management. 06/08/2018-patient has history of heart failure with EF of less than 30% patient is not in fluid overload. He has AICD. 06/07/2018 patient has history of biventricular heart failure with EF of less than 30% patient is not in fluid overload plan is to continue the present management. 06/30/2018-patient has history of combined systolic diastolic biventricular heart failure. Cardiology consult was done echocardiogram shows EF of 30-35% grade 2 diastolic dysfunction and dilated left and right heart ventricules. Patient is presently on Lasix 20 mg p.o. daily. Not in fluid overload. Plan is to check a BNP and labs tomorrow. Latest BNP is 1490. 07/02/2018 patient has history of biventricular heart failure. Is also systolic and diastolic heart failure echocardiogram with EF of 30-35% and grade 2 diastolic dysfunction with a dilated left and right ventricles. Patient is presently on Lasix 20 mg p.o. daily not in fluid overload. His creatinine is slowly trending up. I am going to hold his Lasix for now. 07/03/2018-patient has history of biventricular failure. EF is 30-35%. In association with a diastolic dysfunction. Patient is on Lasix 20 mg daily. Plan is to increase the Lasix to 40 mg daily because of the persistently elevated potassium levels. 07/04/2018 patient has a history of biventricular heart failure. EF is 30-35%. No signs of fluid overload. Follow-up chest x-ray done yesterday shows no vascular congestion small bilateral pleural effusions. Patient is presently on Lasix 40 mg p.o. daily. (3) Pleural effusion Is this a current diagnosis for this admission?: Yes Plan: 05/19/2018-patient came in with a right-sided pleural effusion status post thoracentesis on 05/13/2018 with removal of 750 cc of fluid. Fluid analysis consistent with transudate. Which is likely secondary to CHF. Negative for infection. 05/20/2018-patient came in with right pleural effusion status post thoracentesis on 05/13/2018. The cultures are negative. 05/21/2018 status post thoracentesis of right pleural effusion 750 cc of fluid was removed. cultures Negative. 05/23/2018 during this hospital stay he had a right-sided thoracentesis. And 750 cc of fluid was removed. I am going to redo the chest x-ray today. 05/25/2018-status post right-sided thoracentesis. On examination decreased air entry at the right base. Probably persistent pleural effusion. 06/12/2017 status post right-sided thoracentesis with 750 cc of fluid removal on 05/13/2018. Pleural fluid analysis is consistent with transudate to effusion most likely secondary to patient's congestive heart failure. 06/30/2018 latest chest x-ray done on 06/27/2018 shows moderate right pleural effusion. Seen by poultry feed supervisor on 06/27/2018. Plan is to continue the present management. He had a right-sided thoracentesis was done on 05/13/2019 with removal of 750 cc of fluid. 07/01/2018 on 05/13/2019 750 cc of fluid was removed after thoracentesis. Follow- up chest x-ray shows stable right pleural effusion. Patient is not in respiratory distress. Plan is to continue the present management. 07/02/2018 follow-up chest x-rays indicates stable pleural effusions. Patient is not in respiratory distress. Plan is to continue the present management. 07/03/2018-thoracentesis was done on 05/13/2019 with removal of 750 mL of fluid follow-up x-ray shows stable pleural effusions am going to repeat the chest x- ray today again. 07/04/2018-on 05/13/2019 thoracentesis was done so for 50 mL of fluid was removed. It is a transudate. Follow-up chest x-rays shows stable pleural effusions. (4) CAD (coronary artery disease) Is this a current diagnosis for this admission?: Yes (5) Hyperkalemia Is this a current diagnosis for this admission?: Yes Plan: Potassium level on 06/28/2018 is 5.4. He was off the Aldactone. Plan is to check a CMP today. If the potassium is still high I am going to put him on Kayexalate. 07/01/2018 patient potassium level is 5.3 yesterday. He is not on any potassium sparing diuretics. Started on Kayexalate 15 mL twice a day. 07/02/2018 latest potassium is 5.2 he was started on Kayexalate and daily basis. Plan is to recheck the labs tomorrow. 07/03/2018 latest potassium level is 5.7. Going to put him on Kayexalate 30 mg p.o. every 6 hours, started on Veltassa 8.4 gm daily. Plan to recheck the labs tomorrow. 07/04/2018-latest potassium is 5.6 yesterday it was 5.7 started on Veltassa and also on Kayexalate. But the nurse told me Kayexalate is back dated on we decided to continue Victoza. Lasix was increased to 40 mg daily still potassium is elevated with 5.6 and he is also on MiraLAX for constipation. We are going to check his potassium levels again tomorrow patient is asymptomatic. I discussed the plan with the nurse Petra she said patient is not compliant with Kayexalate and MiraLAX will try to convince him to take those medications to bring the potassium levels down. (6) DEANNA (acute kidney injury) Is this a current diagnosis for this admission?: Yes Plan: 06/30/2018-patient was admitted with acute kidney injury which was resolved. Creatinine latest one is 1.28 at baseline. Presently on Lasix 20 mg p.o. daily. Plan is to check creatinine panel tomorrow. 07/01/2018-patient was admitted with elevated creatinine levels 1.45 present cre atinine is 1.38 acute kidney injury is resolved. 07/02/2018 latest creatinine is 1.5-20 Slowly. Plan to stop allopurinol and Lasix. To recheck his renal panel tomorrow. Worsening kidney function may be secondary to medications/prerenal causes. 07/03/2018-patient's latest creatinine is 1.4 it is fluctuating between 1.25-1.4. Plan is to check the daily labs. 07/04/2018-latest creatinine is 1.3 stable his baseline creatinine is around 1.28. Presently on Lasix 40 mg p.o. daily. Plan is to continue the present management. (7) Gouty arthritis Is this a current diagnosis for this admission?: Yes Plan: 06/30/2018-patient has history of gouty arthritis complaining of left foot pain and right hand pain plan is to check his uric acid levels. Started on Percocet 5/25 mg every 6 as needed. To check uric acid levels. Started on allopurinol 100 mg p.o. twice daily. 07/01/2018 uric acid levels came back at 7.8. Within normal range. Patient was started on allopurinol 100 mg p.o. twice daily and he says is not helping him at all. He was also placed on Percocet yesterday. 07/02/2018 patient is complaining of arthritis he thinks it was gouty arthritis. Uric acid level is 7.8 patient is on prednisone 10 mg p.o. twice daily. Because of the worsening renal function allopurinol was discontinued. 07/03/2018-patient is still complaining for arthritis he thinks is gouty arthritis wants to be on allopurinol. I tried to explain to him because of these poor kidney function may be allopurinol may not be a good option, presently we will continue to give Percocets for pains. Patient is also on a small dose of prednisone. 07/04/2018-patient denies any complaints of any joint pains today comfortably sleeping in the chair woke up and denies any complaints today. Plan is to continue the present management. - Time Time Spent with patient: 15-24 minutes Medications reviewed and adjusted accordingly: Yes Anticipated discharge: Home
[2018-07-04] MEDS: OXYCODONE-ACETAMINOPHEN 5-325 MG TABLET PO PRN (16:21)
[2018-07-04] MEDS ORDERED: PATIROMER 8.4 GM SUSP PACKET ONE (22:03)
[2018-07-04] MEDS: ROPINIROLE HCL 0.25 MG TABLET PO SCH (23:08)
[2018-07-04] MEDS: PATIROMER 8.4 GM SUSP PACKET PO SCH (23:23)
[2018-07-05] MEDS: LANSOPRAZOLE 30 MG TAB.RAP.DR PO SCH ×2 (05:21→19:25)
[2018-07-05] MEDS: DIGOXIN 0.125 MG TABLET PO SCH (09:17)
[2018-07-05] MEDS: ASPIRIN 81 MG TABLET, CHEWABLE PO SCH (09:17)
[2018-07-05] MEDS: DOCUSATE SODIUM 100 MG CAPSULE PO SCH ×2 (09:17→19:25)
[2018-07-05] MEDS: PREDNISONE 10 MG TABLET PO SCH ×2 (09:17→19:25)
[2018-07-05] MEDS: CARVEDILOL 3.125 MG TABLET PO SCH ×2 (09:18→21:34)
[2018-07-05] MEDS: ACETAMINOPHEN 325 MG TABLET PO SCH ×5 (09:18→23:25)
[2018-07-05] MEDS: FUROSEMIDE 40 MG TABLET PO SCH (09:18)
[2018-07-05] MEDS: GABAPENTIN 300 MG CAPSULE PO SCH ×2 (09:19→21:34)
[2018-07-05] MEDS: POLYETHYLENE GLYCOL 3350 POWDER 17 GM/1 PACKET PO SCH (09:26)
[2018-07-05 09:38] LABS: ABSOLUTE BASOPHILS # (AUTO) 0.1 10^3/uL (0.0-0.2); ABSOLUTE LYMPHOCYTES (AUTO) 0.9 10^3/uL (0.5-4.7); ABSOLUTE MONOCYTES (AUTO) 0.8 10^3/uL (0.1-1.4); ABSOLUTE NEUT (AUTO) 4.8 10^3/uL (1.7-8.2); BASOPHILS % (AUTO) 0.9 % (0-2); EOSINOPHILS % (AUTO) 0.7 % (0-6); HEMATOCRIT 35.7 % (37.9-51.0); HEMOGLOBIN 11.5 g/dL (13.5-17.0); LYMPHOCYTES % (AUTO) 13.8 % (13-45); MEAN CORPUSCULAR HEMOGLOBIN 27.4 pg (27.0-33.4); MEAN CORPUSCULAR HGB CONC 32.2 g/dL (32.0-36.0); MEAN CORPUSCULAR VOLUME 85 fl (80-97); MONOCYTES % (AUTO) 12.4 % (3-13); PLATELET COUNT 247 10^3/uL (150-450); RED CELL DISTRIBUTION WIDTH 14.9 % (11.5-14.0); SEGMENTED NEUTROPHILS % (AUTO) 72.2 % (42-78); TOTAL CELLS COUNTED % (AUTO) 100 %; WHITE BLOOD COUNT 6.6 10^3/uL (4.0-10.5)
[2018-07-05 09:56] LABS: ALANINE AMINOTRANSFERASE 41 U/L (21-72); ALBUMIN 4.2 g/dL (3.5-5.0); ALKALINE PHOSPHATASE 80 U/L (38-126); ANION GAP 9 (5-19); ASPARTATE AMINO TRANSFERASE 31 U/L (17-59); BILIRUBIN,DIRECT 0.2 mg/dL (0.0-0.4); BILIRUBIN,TOTAL 0.4 mg/dL (0.2-1.3); BLOOD UREA NITROGEN 38 mg/dL (7-20); CALCIUM 9.4 mg/dL (8.4-10.2); CARBON DIOXIDE 36 mmol/L (22-30); CHLORIDE 98 mmol/L (98-107); GLUCOSE 134 mg/dL (75-110); POTASSIUM 5.4 mmol/L (3.6-5.0); SODIUM 143.4 mmol/L (137-145)
--- NOTE | 2018-07-05 12:23 | PDOC PROGRESS REPORT ---
Subjective Progress Note for:: 07/05/18 Subjective:: This is a 62-year-old male with a past medical history of CAD, prior CABG, COPD, diet-controlled DM, chronic systolic heart failure from ischemic cardiomyopathy with prior AICD placement, chronic respiratory failure on home O2, history of CVA with residual partial expressive aphasia who initially presented with increasing shortness of breath and leg swelling. Patient was admitted for CHF exacerbation. Patient has partial expressive aphasia (has some residual slurring and pauses) but is coherent and is able to converse with provider. He says his SOB is at baseline but he becomes short of breath when lying supine. He has been having persistent orthopnea. 05/13: Discussed in length again this morning with caregiver (Nuria) and patient. We discussed the need for thoracentesis again this morning including the indication due to his persistent orthopnea and significant bilateral pleural effusion. Also discussed the small risk of pneumothorax. Patient did agree undergo thoracentesis as he has been having patient orthopnea. Patient is oriented to person, place and situation. Also discussed with account planner on bedside about possible option to be transferred to a [facility] in [place] as patient is a his history of placement and disposition. He does not want to be transferred at this time and would prefer to stay here. 05/14: Patient does appear to have into capacity to make his own medical decisions. Patient was also evaluated by psych who deemed the same. Discussed in length again today about plan and disposition. Patient says he does not want to go to a usp or rehab. He also does not want to talk about his CODE STATUS and says that he will "sort it out" later. Offered palliative care consult and he is receptive to it but not hospice. He says his breathing has improved after the thoracentesis. Lube Man recommended BiPAP at home. Patient is resistant on using BiPAP at home but agrees to try it here while inpatient and see if he tolerates it. 05/15: Upon encounter this morning, patient was sleeping on the recliner. Patient says that his house is not fixed yet. He says he does not want to go to any of the surrounding SNF/rehab facilities at this time but is agreeable to being transferred to the [facility] in [place]. Convinced on trying the BiPAP and he says he will try wearing it. 05/16: No acute event overnight. Patient has complied with BIPAP. He says his breathing has slightly improved but still has orthopnea. Denies chest pain or dizziness. 05/17: Patient says his breathing has improved and he feels better today. He says he can use the BIPAP for 2 hrs but is willing to try to extend it to 3-4 hrs today. 05/18: Patient only used BIPAP for 1.5 hrs last night. Upon encounter, he does say that he breathes and feels better when on BIPAP. He was advised on increa sing his BIPAP use again today. He denies worsening SOB or chest pain. Still awaiting for update on transfer to [facility] in [facility]. 05/19/2018-no acute events in the last 24 hours as per the patient he is using BiPAP 3-4 hours a day. He is comfortably in the chair on oxygen via nasal tom kurt. Denies any problems. Waiting for placement in [facility]. 05/20/2018-no acute events in the last 24 hours. Patient is on oxygen via nasal cannula walking in the room. Denies any complaints. Using BiPAP 4 hours a day. Patient is waiting for placement at [facility]. 05/21/2018 no acute events in the last 24 hours. Patient is complaining of pain in both arms. I am going to put him on Percocet 09/25/2024 every 8 as needed for pain. Patient is on 2 L nasal cannula pulse ox is 96%. He is using BiPAP 4 hours a day. 05/22/2018-no acute events over the last 24 hours. Patient is afebrile. Patient is complaining of dry skin and itching he wants some Benadryl. 05/23/2018 no acute events in the last 24 hours. His BiPAP requirements are decreased. Patient is afebrile. His pulse ox is 99% on 2 L. Notably sitting in the bed communicating okay. 05/24/2018 -no acute events in the last 24 hours. Patient pulse oxes 99% on 2 L. Is comfortably sleeping in his chair. Denies any complaints. 05/25/2018-no acute events in the last 24 hours. Pulse ox is 100% on 2 L. He is comfortable in the chair communicating very well. Denies any complaints[facility] 05/26/18: He has been more complaint with BIPAP. He denies acute SOB and feels like he is at his baseline. 05/27/18: No acute event overnight. He did complaint of transient chest tightness this morning after he ate a big breakfast (ham and omelet). He says it only lasted for a few seconds. EKG was negative for acute changes. 05/28/18: No acute event. No acute symptoms, no chest pain or SOB. He is at his baseline. 05/29/18: No acute event. Patient denies any acute complaint. Updated by RN and account planner that patient's house will be condemned due to multiple issues. 05/30/18: No acute issues. Patient is still awaiting placement. 05/31/18:Patient is still awaiting placement. Discussed with Eryn on bedside, patient's spectrograph operator who says she is getting her new house this friday and may be able to have patient live with her. 06/01/18: No acute issues. Plan to discharge patient to her spectrograph operator's new house later this week with home health. Commercial Real Estate Manager says she is confident she is able to take care of him at her new house. Patient also prefers discussed disposition. 06/02/2018-patient is afebrile no acute events in the last 24 hours patient waiting to go to caretakers home. 06/03/2018 no acute events in last 24 hours. Patient is comfortable in the chair talking to the family members on the phone. Denies any complaints. 06/04/2018-no acute events in the last 24 hrs. afebrile .pulse ox 98% on 2lts. 06/05/2018-no acute events in the last 24 hours. Patient is afebrile. Pulse ox is 99% on 2 L. 06/06/2018-no acute events in the last 24 hours. Patient is afebrile. Comfortably in the chair sleeping. Denies any complaints. 06/07/2018 patient is afebrile and doing well no complaints no acute events in the last 24 hours. 2018 has saw the patient this morning is comfortably in the chair complaining of left hand pain resting pain medications. His pulse ox are stable. Afebrile. Few minutes ago nurse industrial organizational psychologist Spencer called me to notify that patient is complaining of chest pains vital signs are stable pulse ox is normal so I requested him to do the EKG and cardiac enzymes x3 along with nitroglycerin 0.5 mg subcu every 5 minutes as needed for chest pain. 06/09/18: Reassumed care today. No acute issues in the interim. Patient still here due to placement issues. Apparently, his spectrograph operator's house was not ready yet. He is at his baseline and denies chest pain or SOB at the moment. 06/13/18: No acute issues. Denies chest pain or SOB. Discussed on bedside with Eryn (spectrograph operator) today who says they are still doing repairs for a leakage at her house. Patient has remained stable with no acute issues in the interim and is still waiting for placement. 06/23/18: Reassumed care today. No acute issues. 06/24/18: No acute issues. He denies acute complaints. Still awaiting placement. [facility] 06/25/18: Patient reportedly tripped last night but did not fall on the floor. Otherwise, he denies acute complaints. 2: No acute event overnight. He is asleep upon encounter. When he woke up, he complains of heartburn. He says it is not chest pain but more of a burning sen sation on the chest which he had in the past. He was given a GI cocktail which completely resolved his heartburn. 2: No acute event overnight. Denies chest pain or SOB. No recurrence of heartburn. He does say he continues to have intermittent pain on the left hand joints and right foot. He says he has a history of gouty arthritis. Will add low dose prednisone. 23: No acute event overnight. Re evaluated by pulmonology yesterday and repeat CXR was ordered which showed stable changes, no worsening of pleural effusion. He says his hand and right foot joint pains improved with the prednisone. Denies chest pain or SOB. He says Eryn told him, the house may be ready by Friday (06/30). 06/29: No acute issues. Denies SOB or chest pain. Still awaiting placement. 06/30/2018 no acute events in the last 24 hours. Patient is afebrile. Patient is complaining of left foot pain and hand pain. He has history of gout. Be going to check his uric acid level, started him on allopurinol 100 mg p.o. twice daily and switched tramadol to Percocet every 6 as needed for pain. 07/01/2018 no acute events in the last 24 hours. Patient is afebrile. Patient is complaining of left foot pain and right hand pain yesterday uric acid levels were done uric acid level 7.8 within normal limits. He was started on allopurinol and the patient states is not helping him at all. 07/02/2018-patient is still complaining of gouty arthritis. Uric acid level is 7.8 which was normal. Patient is on prednisone 10 mg p.o. twice daily and also on allopurinol 100 mg p.o. twice daily. She is also receiving Percocets every 6 as needed. Patient was reassured. No other complaints. 07/03/2018 no acute events in the last 24 hours. Patient is afebrile. Waiting for the placement. 07/04/2018-no acute events in the last 24 hours. Afebrile. Patient is comfortably sleeping in the chair. Waiting for the placement. 07/05/2018-no acute events in the last 24 hours. Patient is afebrile. No complaints of any arthritis pain today. Comfortably sitting in the chair. The nurse told me we need to put a PPD order for him for the placement. Reason For Visit: CHF Physical Exam Vital Signs: Temp Pulse Resp BP Pulse Ox 98.5 F 96 18 131/77 H 87 L 07/05/18 08:45 07/05/18 08:45 07/05/18 08:45 07/05/18 08:45 07/05/18 08:45 Intake & Output 07/04/18 07/05/18 07/06/18 06:59 06:59 06:59 Intake Total 1770 1700 Output Total 830 1000 Balance 940 700 Weight 86.6 kg 86.6 kg General appearance: PRESENT: no acute distress Head exam: PRESENT: atraumatic Eye exam: PRESENT: PERRLA Mouth exam: PRESENT: moist, tongue midline Neck exam: ABSENT: carotid bruit, JVD, lymphadenopathy, thyromegaly Respiratory exam: PRESENT: clear to auscultation rahul. ABSENT: rales, rhonchi, wheezes Cardiovascular exam: PRESENT: other - Patient has a pacemaker. GI/Abdominal exam: PRESENT: normal bowel sounds, soft. ABSENT: distended, guarding, mass, organolmegaly, rebound, tenderness Extremities exam: PRESENT: full ROM. ABSENT: calf tenderness, clubbing, pedal edema Neurological exam: PRESENT: alert, awake, oriented to person, oriented to place, oriented to time, oriented to situation, CN II-XII grossly intact. ABSENT: motor sensory deficit Psychiatric exam: PRESENT: appropriate affect, normal mood. ABSENT: homicidal ideation, suicidal ideation Results Laboratory Results: 07/05/18 09:02 07/05/18 09:02 07/05/18 07/05/18 09:02 09:02 WBC 6.6 RBC 4.20 L Hgb 11.5 L Hct 35.7 L MCV 85 MCH 27.4 MCHC 32.2 RDW 14.9 H Plt Count 247 Seg Neutrophils % 72.2 Lymphocytes % 13.8 Monocytes % 12.4 Eosinophils % 0.7 Basophils % 0.9 Absolute Neutrophils 4.8 Absolute Lymphocytes 0.9 Absolute Monocytes 0.8 Absolute Eosinophils 0.0 Absolute Basophils 0.1 Sodium 143.4 Potassium 5.4 H Chloride 98 Carbon Dioxide 36 H Anion Gap 9 BUN 38 H Creatinine 1.41 H Est GFR ( Amer) > 60 Est GFR (Non-Af Amer) 51 L Glucose 134 H Calcium 9.4 Magnesium 2.0 Total Bilirubin 0.4 AST 31 ALT 41 Alkaline Phosphatase 80 Total Protein 7.0 Albumin 4.2 05/11/18 05/11/18 05/11/18 09:35 09:35 09:35 Creatine Kinase 37 L CK-MB (CK-2) Troponin I 0.071 NT-Pro-B Natriuret Pep 6800 H 05/11/18 05/11/18 05/12/18 12:30 19:00 01:06 Creatine Kinase CK-MB (CK-2) Troponin I 0.067 0.064 0.050 NT-Pro-B Natriuret Pep 05/23/18 05/24/18 05/27/18 10:36 09:38 10:01 Creatine Kinase CK-MB (CK-2) Troponin I 0.060 NT-Pro-B Natriuret Pep 819 889 06/03/18 06/08/18 06/08/18 08:12 13:40 13:40 Creatine Kinase 39 L CK-MB (CK-2) 1.92 Troponin I 0.060 NT-Pro-B Natriuret Pep 1420 H 06/08/18 06/08/18 06/09/18 19:03 19:03 00:59 Creatine Kinase 36 L 34 L CK-MB (CK-2) 1.75 Troponin I 0.058 NT-Pro-B Natriuret Pep 06/09/18 06/09/18 06/09/18 00:59 08:04 08:04 Creatine Kinase 32 L CK-MB (CK-2) 1.58 1.79 Troponin I 0.063 0.064 NT-Pro-B Natriuret Pep 06/09/18 06/09/18 06/09/18 12:52 12:52 19:00 Creatine Kinase 46 L 31 L CK-MB (CK-2) 1.99 Troponin I 0.051 NT-Pro-B Natriuret Pep 06/09/18 06/25/18 07/04/18 19:00 07:35 08:21 Creatine Kinase CK-MB (CK-2) 1.80 Troponin I 0.072 0.054 NT-Pro-B Natriuret Pep 1660 H Impressions: Thoracentesis Ultrasound 05/13/18 10:06 IMPRESSION: SUCCESSFUL THORACENTESIS USING ULTRASOUND GUIDANCE. Chest X-Ray 07/03/18 00:00 IMPRESSION: Cardiomegaly. Small bibasilar effusions. Mild pulmonary vascular congestion. copyright 2010 [employer]- All Rights Reserved Assessment & Plan - Diagnosis (1) Acute and chronic respiratory failure with hypoxia Is this a current diagnosis for this admission?: Yes Plan: 05/19/2018 acute on chronic respiratory failure with hypoxia probably secondary to CHF exacerbation. He is on BiPAP for 3-4 hours/day. Plan is to continue the current management. 05/20/2018-patient was admitted for acute on chronic respiratory failure with hypoxia probably secondary to CHF exacerbation. He is using BiPAP 4 hours a day. No acute events in the last 24 hours. Plan is to continue the present management. 05/21/2018-patient is comfortably in the chair on 2 L oxygen via nasal cannula. Acute on chronic respiratory failure resolved with hypoxia resolved. Is awaiting for placement in [facility]. 05/22/2018-pulse ox on 2 L is 100% today. Patient is comfortably in the chair. Only complaint is his complaint of dry skin and itching. [facility] He is using BiPAP 3-4 hours a day. His acute on chronic respiratory failure with hypoxia probably secondary to CHF exacerbation. I am going to recheck his BMP tomorrow. Pt is not in fluid overload today. 05/23/2018 pulse ox on 2 L is 99% patient is able to walk in the hallway on 2 L oxygen without any problems. He did not have need to use the BiPAP in the last 24 hours. He has been BNP is around 820. no Signs of any fluid overload. Plan is to continue the present management. 05/24/2018 patient was admitted for acute on chronic respiratory failure with hypoxia hypoxia resolved. Patient is not on BiPAP anymore. Pulse ox is pulse ox is 91% on 2 L. Patient waiting for placement in [place]. 05/25/2018-2 L oxygen pulse ox 100% hypoxia with acute respiratory failure resolved patient is not using the BiPAP anymore. He is waiting for placement at [facility]. 06/02/2017-pulse ox on 2 L is 97% today. Using the BiPAP on and off. Waiting waiting to go to [facility] probably on Friday. The meantime will continue the present management. 06/03/2018-patient pulse ox is 99% on 2 L. He is using the BiPAP on and off. No complaints from the patient. Plan is to discharge him to [facility] on Friday. 06/04/2018-pulse ox is 100% on 2lts.using BIPAP on and off. no complaints. comfortable in chair eating lunch. 06/05/2018 pulse ox is 99% on 2 L. Not using the BiPAP at this time. Comfortably in the chair communicating well. Waiting for the placement. 06/06/2018-pulse ox on 2 L is 99%. Patient is not using the BiPAP anymore. He acute on chronic respiratory failure with hypoxia and hypercapnia resolved. 06/08/2018-pulse ox is 100% on 2 L. Patient is not on BiPAP anymore. Acute on chronic respiratory failure with hypoxia and hypercapnia resolved. 06/07/2018 patient pulse oxes are 98% on 2 L patient is off the BiPAP right now acute on chronic respiratory failure with hypoxia and hypercapnia resolved patient waiting for placement at the caretakers home. 06/30/2018-patient was admitted with acute on chronic respiratory failure hypoxia probably secondary to CHF exacerbation. Pulse oxes 100% on 2 L. Using BiPAP at night. Plan is to continue the present management. 07/01/2018-patient was admitted with acute on chronic respiratory failure with hypoxia most likely secondary to CHF exacerbation. Patient is in the BiPAP at night. Pulse ox today is 100% on 2 L. Patient is comfortably in the chair no complaints. 07/02/2018-patient was admitted with acute on chronic respiratory failure with hypoxia most likely to CHF exacerbation. He is on oxygen 2 L via nasal cannula pulse ox is 96%. He is using the BiPAP at night. 07/03/2018-patient was admitted with acute on chronic respiratory failure with hypoxia most likely secondary to congestive heart failure. Patient is presently on 2 L oxygen pulse ox is 99%. Uses BiPAP at night. He acute on chronic respiratory failure with hypoxia is resolved. 07/04/2018-patient was admitted with acute on chronic respiratory failure with hypoxia most likely secondary to exacerbation of congestive heart failure. Pulse ox is 100% on 2 L. Plan is to continue the present management. 07/05/2018 patient pulse ox today is 97% on 2 L. He is using occasionally BiPAP during the nights. He acute on chronic respiratory failure secondary to CHF exacerbation is resolved. (2) Acute on chronic systolic (congestive) heart failure Is this a current diagnosis for this admission?: Yes Plan: Combined systolic and diastolic biventricular failure. Continue Lasix 40 mg daily. Cardiology following. Echo shows an EF of 30-35%, grade 2 diastolic dysfunction and dilated left and right ventricular. Patient already has an AICD. Patient is not on UZMA inhibitor hence is not on optimal medical therapy. CHF medication regimen cannot be optimized as patient has had angioedema from captopril before. Both UZMA inhibitors and Entresto will be contraindicated to a history of ACEi-associated angioedema. Discussed with cardio and pulm. Recommendation for BIPAP at home/discharge for his biventricular heart failure and significant pulmonary hypertension. Continue Coreg and Aldactone. 05/16/18: Decreased Lasix to 40 mg IV daily from q12 due to alkalosis. 05/19/2018-patient has history of congestive heart failure. Which is combined systolic diastolic biventricular failure. Patient is on Lasix 40 mg IV twice daily. cardiology on board. EF is 30-35%. Grade 2 diastolic dysfunction and dilated left and right ventricular chambers. Patient has AICD. Patient is not on UZMA inhibitors because of history of angioedema. UZMA inhibitors and Entresto are not contraindicated because of the ACEi associated angioedema. Patient is also on Coreg and Aldactone. [facility]. 05/20/2018-has a combined systolic diastolic biventricular failure. EF is 30- 35%. Echocardiogram shows grade 2 diastolic dysfunction and dilated left and right ventricular chambers. Patient has AICD. Patient is not on UZMA inhibitors because of history of angioedema. Stoped Aldactone today because potassium is 5.1. 05/21/2018-patient has history of congestive heart failure combined systolic diastolic biventricular failure with EF of 30-35%. Patient is allergic to UZMA inhibitors gives angioedema. Latest potassium is 5.1. We are going to check his potassium levels today. Yesterday I stopped his spironolactone and we stopped potassium supplementation. 05/22/2018-his latest potassium is 5.0 potassium supplementation was disconti nued spironolactone was discontinued, has EF is 30-35%. Patient is not in fluid overload I am going to follow the patient regular basis. 05/23/2018-potassium level is 5.0 stable patient ejection fraction is 30-45%. Patient has combined systolic diastolic biventricular heart failure. He has AIC D. And is to continue the present management. 05/24/2018-patient's has a biventricular systolic and diastolic heart failure with EF of 35-40%. Patient has AICD. He is on Lasix 40 IV daily I am going to switch her to 40 mg p.o. daily. 05/25/2018-patient is not in fluid overload chest was clear no pedal edema. He has biventricular systolic/diastolic heart failure with EF of 35-40%. He is on Lasix.Combined systolic and diastolic biventricular failure. Continue Lasix 40 mg daily. Cardiology following. Echo shows an EF of 30-35%, grade 2 diastolic dysfunction and dilated left and right ventricular. Patient already has an AICD. Patient is not on UZMA inhibitor hence is not on optimal medical therapy. CHF medication regimen cannot be optimized as patient has had angioedema from capto pril before. Both UZMA inhibitors and Entresto will be contraindicated to a history of ACEi-associated angioedema. Discussed with cardio and pulm. Recommendation for BIPAP at home/discharge for his biventricular heart failure and significant pulmonary hypertension. Continue Coreg. Aldactone was d/raghav due to his potassium trending up. Aldactone resumed. Continue Lasix 40 mg daily. 06/02/2017-patient has combined systolic and diastolic biventricular failure he is on Lasix 40 mg p.o. daily and also on Aldactone. Patient is not in fluid overload. And is to continue the present management. 06/03/2017 patient has history of combined systolic diastolic biventricular failure on Lasix 40 mg p.o. daily and is also on Aldactone potassium levels going back up again it was 5.2 today I am going to stop the Aldactone and and follow the potassium levels. 06/04/2018-pt is not in fluid overload. plan to continue present treatment. 06/05/2018-patient has history of for combined systolic/diastolic biventricular failure on Lasix 40 mg p.o. daily Aldactone was discontinued because of the persistently elevated potassium levels. Potassium level today is 3.7. 06/06/2018-patient has a biventricular heart failure with EF of less than 30% patient is not in fluid overload. Plan is to continue the present management. 06/08/2018-patient has history of heart failure with EF of less than 30% patient is not in fluid overload. He has AICD. 06/07/2018 patient has history of biventricular heart failure with EF of less than 30% patient is not in fluid overload plan is to continue the present management. 06/30/2018-patient has history of combined systolic diastolic biventricular heart failure. Cardiology consult was done echocardiogram shows EF of 30-35% grade 2 diastolic dysfunction and dilated left and right heart ventricules. Patient is presently on Lasix 20 mg p.o. daily. Not in fluid overload. Plan is to check a BNP and labs tomorrow. Latest BNP is 1490. 07/02/2018 patient has history of biventricular heart failure. Is also systolic and diastolic heart failure echocardiogram with EF of 30-35% and grade 2 diastolic dysfunction with a dilated left and right ventricles. Patient is pr esently on Lasix 20 mg p.o. daily not in fluid overload. His creatinine is slowly trending up. I am going to hold his Lasix for now. 07/03/2018-patient has history of biventricular failure. EF is 30-35%. In association with a diastolic dysfunction. Patient is on Lasix 20 mg daily. Plan is to increase the Lasix to 40 mg daily because of the persistently elevated potassium levels. 07/04/2018 patient has a history of biventricular heart failure. EF is 30-35%. No signs of fluid overload. Follow-up chest x-ray done yesterday shows no vascular congestion small bilateral pleural effusions. Patient is presently on Lasix 40 mg p.o. daily. 07/05/2018-patient has a biventricular heart failure. EF of 30-35%. No signs of fluid overload. Chest x-ray shows small stable bilateral pleural effusions. Presently on Lasix 40 mg p.o. daily. Plan is to continue the present management. (3) Pleural effusion Is this a current diagnosis for this admission?: Yes (4) CAD (coronary artery disease) Is this a current diagnosis for this admission?: Yes (5) Hyperkalemia Is this a current diagnosis for this admission?: Yes Plan: Potassium level on 06/28/2018 is 5.4. He was off the Aldactone. Plan is to check a CMP today. If the potassium is still high I am going to put him on Kayexalate. 07/01/2018 patient potassium level is 5.3 yesterday. He is not on any potassium sparing diuretics. Started on Kayexalate 15 mL twice a day. 07/02/2018 latest potassium is 5.2 he was started on Kayexalate and daily basis. Plan is to recheck the labs tomorrow. 07/03/2018 latest potassium level is 5.7. Going to put him on Kayexalate 30 mg p.o. every 6 hours, started on Veltassa 8.4 gm daily. Plan to recheck the labs tomorrow. 07/04/2018-latest potassium is 5.6 yesterday it was 5.7 started on Veltassa and also on Kayexalate. But the nurse told me Kayexalate is back dated on we decided to continue Victoza. Lasix was increased to 40 mg daily still potassium is elevated with 5.6 and he is also on MiraLAX for constipation. We are going to check his potassium levels again tomorrow patient is asymptomatic. I discussed the plan with the nurse Petra she said patient is not compliant with Kayexalate and MiraLAX will try to convince him to take those medications to bring the potassium levels down. 07/05/2018-patient's potassium is persistently high above 5 5.4 today better compared to yesterday. Patient said he has a good bowel movement yesterday. Patient is on Veltassa, is also getting as needed Kayexalate. Plan is to recheck his labs tomorrow. (6) DEANNA (acute kidney injury) Is this a current diagnosis for this admission?: Yes Plan: 06/30/2018-patient was admitted with acute kidney injury which was resolved. Creatinine latest one is 1.28 at baseline. Presently on Lasix 20 mg p.o. daily. Plan is to check creatinine panel tomorrow. 07/01/2018-patient was admitted with elevated creatinine levels 1.45 present creatinine is 1.38 acute kidney injury is resolved. 07/02/2018 latest creatinine is 1.5-20 Slowly. Plan to stop allopurinol and Lasix. To recheck his renal panel tomorrow. Worsening kidney function may be secondary to medications/prerenal causes. 07/03/2018-patient's latest creatinine is 1.4 it is fluctuating between 1.25-1.4. Plan is to check the daily labs. 07/04/2018-latest creatinine is 1.3 stable his baseline creatinine is around 1.28. Presently on Lasix 40 mg p.o. daily. Plan is to continue the present management. 07/05/2018-latest creatinine was 1.41 it is fluctuating between 1.3-1.4. His acute kidney injury is resolved. (7) Gouty arthritis Is this a current diagnosis for this admission?: Yes - Time Time Spent with patient: 15-24 minutes Medications reviewed and adjusted accordingly: Yes
[2018-07-05] MEDS ORDERED: TUBERCULIN,PURIF.PROT.DERIV. 5 TU/0.1 ML TEST 1 ML VIAL ID ONE (14:00)
[2018-07-05] MEDS: CYCLOSPORINE 0.05% OPH EMULSIO 0.4 ML DROPERETTE OU SCH (15:25)
[2018-07-05] MEDS: PATIROMER 8.4 GM SUSP PACKET PO SCH (19:28)
[2018-07-05] MEDS: ROPINIROLE HCL 0.25 MG TABLET PO SCH (21:34)
[2018-07-05] MEDS: OXYCODONE-ACETAMINOPHEN 5-325 MG TABLET PO PRN (23:23)
[2018-07-06] MEDS: LANSOPRAZOLE 30 MG TAB.RAP.DR PO SCH ×2 (05:21→18:40)
[2018-07-06] MEDS: ASPIRIN 81 MG TABLET, CHEWABLE PO SCH (09:11)
[2018-07-06] MEDS: GABAPENTIN 300 MG CAPSULE PO SCH ×2 (09:11→21:24)
[2018-07-06] MEDS: DOCUSATE SODIUM 100 MG CAPSULE PO SCH ×2 (09:11→18:39)
[2018-07-06] MEDS: ACETAMINOPHEN 325 MG TABLET PO SCH ×4 (09:11→21:23)
[2018-07-06] MEDS: DIGOXIN 0.125 MG TABLET PO SCH (09:12)
[2018-07-06] MEDS: POLYETHYLENE GLYCOL 3350 POWDER 17 GM/1 PACKET PO SCH (09:12)
[2018-07-06] MEDS: FUROSEMIDE 40 MG TABLET PO SCH (09:12)
[2018-07-06] MEDS: PREDNISONE 10 MG TABLET PO SCH ×2 (09:12→18:39)
[2018-07-06] MEDS: CARVEDILOL 3.125 MG TABLET PO SCH ×2 (09:12→21:23)
[2018-07-06] MEDS: CYCLOSPORINE 0.05% OPH EMULSIO 0.4 ML DROPERETTE OU SCH (09:14)
[2018-07-06 09:30] LABS: ABSOLUTE BASOPHILS # (AUTO) 0.1 10^3/uL (0.0-0.2); ABSOLUTE EOSINOPHILS # (AUTO) 0.1 10^3/uL (0.0-0.6); ABSOLUTE LYMPHOCYTES (AUTO) 0.9 10^3/uL (0.5-4.7); ABSOLUTE MONOCYTES (AUTO) 0.7 10^3/uL (0.1-1.4); ABSOLUTE NEUT (AUTO) 4.6 10^3/uL (1.7-8.2); EOSINOPHILS % (AUTO) 1.4 % (0-6); HEMATOCRIT 34.8 % (37.9-51.0); HEMOGLOBIN 11.4 g/dL (13.5-17.0); LYMPHOCYTES % (AUTO) 14.4 % (13-45); MEAN CORPUSCULAR HEMOGLOBIN 27.6 pg (27.0-33.4); MEAN CORPUSCULAR HGB CONC 32.8 g/dL (32.0-36.0); MEAN CORPUSCULAR VOLUME 84 fl (80-97); MONOCYTES % (AUTO) 11.5 % (3-13); PLATELET COUNT 244 10^3/uL (150-450); RED BLOOD COUNT 4.13 10^6/uL (4.35-5.55); SEGMENTED NEUTROPHILS % (AUTO) 71.7 % (42-78); TOTAL CELLS COUNTED % (AUTO) 100 %; WHITE BLOOD COUNT 6.4 10^3/uL (4.0-10.5)
[2018-07-06 10:02] LABS: ALANINE AMINOTRANSFERASE 26 U/L (21-72); ALKALINE PHOSPHATASE 82 U/L (38-126); ANION GAP 10 (5-19); ASPARTATE AMINO TRANSFERASE 29 U/L (17-59); BILIRUBIN,DIRECT 0.2 mg/dL (0.0-0.4); BILIRUBIN,TOTAL 0.4 mg/dL (0.2-1.3); BLOOD UREA NITROGEN 37 mg/dL (7-20); CALCIUM 9.2 mg/dL (8.4-10.2); CARBON DIOXIDE 35 mmol/L (22-30); CHLORIDE 98 mmol/L (98-107); GLUCOSE 152 mg/dL (75-110); POTASSIUM 5.5 mmol/L (3.6-5.0); SODIUM 143.3 mmol/L (137-145); TOTAL PROTEIN 6.8 g/dL (6.3-8.2)
[2018-07-06] MEDS: OXYCODONE-ACETAMINOPHEN 5-325 MG TABLET PO PRN (11:22)
--- NOTE | 2018-07-06 16:24 | PDOC PROGRESS REPORT ---
Subjective Progress Note for:: 07/06/18 Subjective:: This is a 62-year-old male with a past medical history of CAD, prior CABG, COPD, diet-controlled DM, chronic systolic heart failure from ischemic cardiomyopathy with prior AICD placement, chronic respiratory failure on home O2, history of CVA with residual partial expressive aphasia who initially presented with increasing shortness of breath and leg swelling. Patient was admitted for CHF exacerbation. Patient has partial expressive aphasia (has some residual slurring and pauses) but is coherent and is able to converse with provider. He says his SOB is at baseline but he becomes short of breath when lying supine. He has been having persistent orthopnea. 05/13: Discussed in length again this morning with caregiver (Nuira) and patient. We discussed the need for thoracentesis again this morning including the indication due to his persistent orthopnea and significant bilateral pleural effusion. Also discussed the small risk of pneumothorax. Patient did agree undergo thoracentesis as he has been having patient orthopnea. Patient is oriented to person, place and situation. Also discussed with paraplanner on bedside about possible option to be transferred to a [facility] in [place] as patient is a his history of placement and disposition. He does not want to be transferred at this time and would prefer to stay here. 05/14: Patient does appear to have into capacity to make his own medical decisions. Patient was also evaluated by psych who deemed the same. Discussed in length again today about plan and disposition. Patient says he does not want to go to a jail or rehab. He also does not want to talk about his CODE STATUS and says that he will "sort it out" later. Offered palliative care consult and he is receptive to it but not hospice. He says his breathing has improved after the thoracentesis. Residency Program Coordinator recommended BiPAP at home. Patient is resistant on using BiPAP at home but agrees to try it here while inpatient and see if he tolerates it. 05/15: Upon encounter this morning, patient was sleeping on the recliner. Patient says that his house is not fixed yet. He says he does not want to go to any of the surrounding SNF/rehab facilities at this time but is agreeable to being transferred to the [facility] in [place]. Convinced on trying the BiPAP and he says he will try wearing it. 05/16: No acute event overnight. Patient has complied with BIPAP. He says his breathing has slightly improved but still has orthopnea. Denies chest pain or dizziness. 05/17: Patient says his breathing has improved and he feels better today. He says he can use the BIPAP for 2 hrs but is willing to try to extend it to 3-4 hrs today. 05/18: Patient only used BIPAP for 1.5 hrs last night. Upon encounter, he does say that he breathes and feels better when on BIPAP. He was advised on increa sing his BIPAP use again today. He denies worsening SOB or chest pain. Still awaiting for update on transfer to [facility] in [facility]. 05/19/2018-no acute events in the last 24 hours as per the patient he is using BiPAP 3-4 hours a day. He is comfortably in the chair on oxygen via nasal tom kurt. Denies any problems. Waiting for placement in [facility]. 05/20/2018-no acute events in the last 24 hours. Patient is on oxygen via nasal cannula walking in the room. Denies any complaints. Using BiPAP 4 hours a day. Patient is waiting for placement at [facility]. 05/21/2018 no acute events in the last 24 hours. Patient is complaining of pain in both arms. I am going to put him on Percocet 09/25/2024 every 8 as needed for pain. Patient is on 2 L nasal cannula pulse ox is 96%. He is using BiPAP 4 hours a day. 05/22/2018-no acute events over the last 24 hours. Patient is afebrile. Patient is complaining of dry skin and itching he wants some Benadryl. 05/23/2018 no acute events in the last 24 hours. His BiPAP requirements are decreased. Patient is afebrile. His pulse ox is 99% on 2 L. Notably sitting in the bed communicating okay. 05/24/2018 -no acute events in the last 24 hours. Patient pulse oxes 99% on 2 L. Is comfortably sleeping in his chair. Denies any complaints. 05/25/2018-no acute events in the last 24 hours. Pulse ox is 100% on 2 L. He is comfortable in the chair communicating very well. Denies any complaints[facility] 05/26/18: He has been more complaint with BIPAP. He denies acute SOB and feels like he is at his baseline. 05/27/18: No acute event overnight. He did complaint of transient chest tightness this morning after he ate a big breakfast (ham and omelet). He says it only lasted for a few seconds. EKG was negative for acute changes. 05/28/18: No acute event. No acute symptoms, no chest pain or SOB. He is at his baseline. 05/29/18: No acute event. Patient denies any acute complaint. Updated by RN and paraplanner that patient's house will be condemned due to multiple issues. 05/30/18: No acute issues. Patient is still awaiting placement. 05/31/18:Patient is still awaiting placement. Discussed with Eryn on bedside, patient's compensation business partner who says she is getting her new house this friday and may be able to have patient live with her. 06/01/18: No acute issues. Plan to discharge patient to her compensation business partner's new house later this week with home health. Track Machine Operator Repairer says she is confident she is able to take care of him at her new house. Patient also prefers discussed disposition. 06/02/2018-patient is afebrile no acute events in the last 24 hours patient waiting to go to caretakers home. 06/03/2018 no acute events in last 24 hours. Patient is comfortable in the chair talking to the family members on the phone. Denies any complaints. 06/04/2018-no acute events in the last 24 hrs. afebrile .pulse ox 98% on 2lts. 06/05/2018-no acute events in the last 24 hours. Patient is afebrile. Pulse ox is 99% on 2 L. 06/06/2018-no acute events in the last 24 hours. Patient is afebrile. Comfortably in the chair sleeping. Denies any complaints. 06/07/2018 patient is afebrile and doing well no complaints no acute events in the last 24 hours. 2018 has saw the patient this morning is comfortably in the chair complaining of left hand pain resting pain medications. His pulse ox are stable. Afebrile. Few minutes ago nurse salesperson books Spencer called me to notify that patient is complaining of chest pains vital signs are stable pulse ox is normal so I requested him to do the EKG and cardiac enzymes x3 along with nitroglycerin 0.5 mg subcu every 5 minutes as needed for chest pain. 06/09/18: Reassumed care today. No acute issues in the interim. Patient still here due to placement issues. Apparently, his compensation business partner's house was not ready yet. He is at his baseline and denies chest pain or SOB at the moment. 06/13/18: No acute issues. Denies chest pain or SOB. Discussed on bedside with Eryn (compensation business partner) today who says they are still doing repairs for a leakage at her house. Patient has remained stable with no acute issues in the interim and is still waiting for placement. 06/23/18: Reassumed care today. No acute issues. 06/24/18: No acute issues. He denies acute complaints. Still awaiting placement. [facility] service representative [facility]. 06/25/18: Patient reportedly tripped last night but did not fall on the floor. Otherwise, he denies acute complaints. 2: No acute event overnight. He is asleep upon encounter. When he woke up, he complains of heartburn. He says it is not chest pain but more of a burning sen sation on the chest which he had in the past. He was given a GI cocktail which completely resolved his heartburn. 2: No acute event overnight. Denies chest pain or SOB. No recurrence of heartburn. He does say he continues to have intermittent pain on the left hand joints and right foot. He says he has a history of gouty arthritis. Will add low dose prednisone. 23: No acute event overnight. Re evaluated by pulmonology yesterday and repeat CXR was ordered which showed stable changes, no worsening of pleural effusion. He says his hand and right foot joint pains improved with the prednisone. Denies chest pain or SOB. He says Eryn told him, the house may be ready by Friday (06/30). 06/29: No acute issues. Denies SOB or chest pain. Still awaiting placement. 06/30/2018 no acute events in the last 24 hours. Patient is afebrile. Patient is complaining of left foot pain and hand pain. He has history of gout. Be going to check his uric acid level, started him on allopurinol 100 mg p.o. twice daily and switched tramadol to Percocet every 6 as needed for pain. 07/01/2018 no acute events in the last 24 hours. Patient is afebrile. Patient is complaining of left foot pain and right hand pain yesterday uric acid levels were done uric acid level 7.8 within normal limits. He was started on allopurinol and the patient states is not helping him at all. 07/02/2018-patient is still complaining of gouty arthritis. Uric acid level is 7.8 which was normal. Patient is on prednisone 10 mg p.o. twice daily and also on allopurinol 100 mg p.o. twice daily. She is also receiving Percocets every 6 as needed. Patient was reassured. No other complaints. 07/03/2018 no acute events in the last 24 hours. Patient is afebrile. Waiting for the placement. 07/04/2018-no acute events in the last 24 hours. Afebrile. Patient is comfortably sleeping in the chair. Waiting for the placement. 07/06/2018-no acute events in the last 24 hours. Patient is stable. Waiting for placement. 07/05/2018-no acute events in the last 24 hours. Patient is afebrile. No complaints of any arthritis pain today. Comfortably sitting in the chair. The nurse told me we need to put a PPD order for him for the placement. Reason For Visit: CHF Physical Exam Vital Signs: Temp Pulse Resp BP Pulse Ox 98.6 F 94 18 115/75 98 07/06/18 15:54 07/06/18 15:54 07/06/18 15:54 07/06/18 15:54 07/06/18 15:54 Intake & Output 07/05/18 07/06/18 07/07/18 06:59 06:59 06:59 Intake Total 1700 1280 400 Output Total 1000 650 300 Balance 700 630 100 Weight 86.6 kg 86.6 kg General appearance: PRESENT: no acute distress Head exam: PRESENT: atraumatic Eye exam: PRESENT: PERRLA Mouth exam: PRESENT: moist Neck exam: ABSENT: carotid bruit, JVD, lymphadenopathy, thyromegaly Respiratory exam: PRESENT: decreased breath sounds Cardiovascular exam: PRESENT: other - pacemaker GI/Abdominal exam: PRESENT: normal bowel sounds, soft. ABSENT: distended, guarding, mass, organolmegaly, rebound, tenderness Extremities exam: PRESENT: full ROM. ABSENT: calf tenderness, clubbing, pedal edema Neurological exam: PRESENT: alert, awake, oriented to person, oriented to place, oriented to time, oriented to situation, CN II-XII grossly intact. ABSENT: motor sensory deficit Psychiatric exam: PRESENT: appropriate affect, normal mood. ABSENT: homicidal ideation, suicidal ideation Results Laboratory Results: 07/06/18 08:51 07/06/18 08:51 07/06/18 07/06/18 08:51 08:51 WBC 6.4 RBC 4.13 L Hgb 11.4 L Hct 34.8 L MCV 84 MCH 27.6 MCHC 32.8 RDW 15.0 H Plt Count 244 Seg Neutrophils % 71.7 Lymphocytes % 14.4 Monocytes % 11.5 Eosinophils % 1.4 Basophils % 1.0 Absolute Neutrophils 4.6 Absolute Lymphocytes 0.9 Absolute Monocytes 0.7 Absolute Eosinophils 0.1 Absolute Basophils 0.1 Sodium 143.3 Potassium 5.5 H Chloride 98 Carbon Dioxide 35 H Anion Gap 10 BUN 37 H Creatinine 1.38 H Est GFR ( Amer) > 60 Est GFR (Non-Af Amer) 52 L Glucose 152 H Calcium 9.2 Magnesium 1.9 Total Bilirubin 0.4 AST 29 ALT 26 Alkaline Phosphatase 82 Total Protein 6.8 Albumin 4.0 05/11/18 05/11/18 05/11/18 09:35 09:35 09:35 Creatine Kinase 37 L CK-MB (CK-2) Troponin I 0.071 NT-Pro-B Natriuret Pep 6800 H 05/11/18 05/11/18 05/12/18 12:30 19:00 01:06 Creatine Kinase CK-MB (CK-2) Troponin I 0.067 0.064 0.050 NT-Pro-B Natriuret Pep 05/23/18 05/24/18 05/27/18 10:36 09:38 10:01 Creatine Kinase CK-MB (CK-2) Troponin I 0.060 NT-Pro-B Natriuret Pep 819 889 06/03/18 06/08/18 06/08/18 08:12 13:40 13:40 Creatine Kinase 39 L CK-MB (CK-2) 1.92 Troponin I 0.060 NT-Pro-B Natriuret Pep 1420 H 06/08/18 06/08/18 06/09/18 19:03 19:03 00:59 Creatine Kinase 36 L 34 L CK-MB (CK-2) 1.75 Troponin I 0.058 NT-Pro-B Natriuret Pep 06/09/18 06/09/18 06/09/18 00:59 08:04 08:04 Creatine Kinase 32 L CK-MB (CK-2) 1.58 1.79 Troponin I 0.063 0.064 NT-Pro-B Natriuret Pep 06/09/18 06/09/18 06/09/18 12:52 12:52 19:00 Creatine Kinase 46 L 31 L CK-MB (CK-2) 1.99 Troponin I 0.051 NT-Pro-B Natriuret Pep 06/09/18 06/25/18 07/04/18 19:00 07:35 08:21 Creatine Kinase CK-MB (CK-2) 1.80 Troponin I 0.072 0.054 NT-Pro-B Natriuret Pep 1660 H Impressions: Thoracentesis Ultrasound 05/13/18 10:06 IMPRESSION: SUCCESSFUL THORACENTESIS USING ULTRASOUND GUIDANCE. Chest X-Ray 07/03/18 00:00 IMPRESSION: Cardiomegaly. Small bibasilar effusions. Mild pulmonary vascular congestion. copyright 2010 [employer]- All Rights Reserved Assessment & Plan - Diagnosis (1) Acute and chronic respiratory failure with hypoxia Is this a current diagnosis for this admission?: Yes Plan: 05/19/2018 acute on chronic respiratory failure with hypoxia probably secondary to CHF exacerbation. He is on BiPAP for 3-4 hours/day. Plan is to continue the current management. 05/20/2018-patient was admitted for acute on chronic respiratory failure with hypoxia probably secondary to CHF exacerbation. He is using BiPAP 4 hours a day. No acute events in the last 24 hours. Plan is to continue the present management. 05/21/2018-patient is comfortably in the chair on 2 L oxygen via nasal cannula. Acute on chronic respiratory failure resolved with hypoxia resolved. Is awaiting for placement in [facility]. 05/22/2018-pulse ox on 2 L is 100% today. Patient is comfortably in the chair. Only complaint is his complaint of dry skin and itching. [facility] He is using BiPAP 3-4 hours a day. His acute on chronic res piratory failure with hypoxia probably secondary to CHF exacerbation. I am going to recheck his BMP tomorrow. Pt is not in fluid overload today. 05/23/2018 pulse ox on 2 L is 99% patient is able to walk in the hallway on 2 L oxygen without any problems. He did not have need to use the BiPAP in the last 24 hours. He has been BNP is around 820. no Signs of any fluid overload. Plan is to continue the present management. 05/24/2018 patient was admitted for acute on chronic respiratory failure with hypoxia hypoxia resolved. Patient is not on BiPAP anymore. Pulse ox is pulse ox is 91% on 2 L. Patient waiting for placement in [place]. 05/25/2018-2 L oxygen pulse ox 100% hypoxia with acute respiratory failure resolved patient is not using the BiPAP anymore. He is waiting for placement at [facility]. 06/02/2017-pulse ox on 2 L is 97% today. Using the BiPAP on and off. Waiting waiting to go to [facility] probably on Friday. The meantime will continue the present management. 06/03/2018-patient pulse ox is 99% on 2 L. He is using the BiPAP on and off. No complaints from the patient. Plan is to discharge him to [facility] on Friday. 06/04/2018-pulse ox is 100% on 2lts.using BIPAP on and off. no complaints. comfortable in chair eating lunch. 06/05/2018 pulse ox is 99% on 2 L. Not using the BiPAP at this time. Comfortably in the chair communicating well. Waiting for the placement. 06/06/2018-pulse ox on 2 L is 99%. Patient is not using the BiPAP anymore. He acute on chronic respiratory failure with hypoxia and hypercapnia resolved. 06/08/2018-pulse ox is 100% on 2 L. Patient is not on BiPAP anymore. Acute on chronic respiratory failure with hypoxia and hypercapnia resolved. 06/07/2018 patient pulse oxes are 98% on 2 L patient is off the BiPAP right now acute on chronic respiratory failure with hypoxia and hypercapnia resolved patient waiting for placement at the caretakers home. 06/30/2018-patient was admitted with acute on chronic respiratory failure hypoxia probably secondary to CHF exacerbation. Pulse oxes 100% on 2 L. Using BiPAP at night. Plan is to continue the present management. 07/01/2018-patient was admitted with acute on chronic respiratory failure with hypoxia most likely secondary to CHF exacerbation. Patient is in the BiPAP at night. Pulse ox today is 100% on 2 L. Patient is comfortably in the chair no complaints. 07/02/2018-patient was admitted with acute on chronic respiratory failure with hypoxia most likely to CHF exacerbation. He is on oxygen 2 L via nasal cannula pulse ox is 96%. He is using the BiPAP at night. 07/03/2018-patient was admitted with acute on chronic respiratory failure with hypoxia most likely secondary to congestive heart failure. Patient is presently on 2 L oxygen pulse ox is 99%. Uses BiPAP at night. He acute on chronic respiratory failure with hypoxia is resolved. 07/04/2018-patient was admitted with acute on chronic respiratory failure with hypoxia most likely secondary to exacerbation of congestive heart failure. Pulse ox is 100% on 2 L. Plan is to continue the present management. 07/05/2018 patient pulse ox today is 97% on 2 L. He is using occasionally BiPAP during the nights. He acute on chronic respiratory failure secondary to CHF exacerbation is resolved. 07/06/2018-pulse ox today is 97% on 2 L. Patient is comfortably in the chair. Using BiPAP at night. (2) Acute on chronic systolic (congestive) heart failure Is this a current diagnosis for this admission?: Yes (3) Pleural effusion Is this a current diagnosis for this admission?: Yes Plan: 05/19/2018-patient came in with a right-sided pleural effusion status post thoracentesis on 05/13/2018 with removal of 750 cc of fluid. Fluid analysis consistent with transudate. Which is likely secondary to CHF. Negative for infection. 05/20/2018-patient came in with right pleural effusion status post thoracentesis on 05/13/2018. The cultures are negative. 05/21/2018 status post thoracentesis of right pleural effusion 750 cc of fluid was removed. cultures Negative. 05/23/2018 during this hospital stay he had a right-sided thoracentesis. And 750 cc of fluid was removed. I am going to redo the chest x-ray today. 05/25/2018-status post right-sided thoracentesis. On examination decreased air entry at the right base. Probably persistent pleural effusion. 06/12/2017 status post right-sided thoracentesis with 750 cc of fluid removal on 05/13/2018. Pleural fluid analysis is consistent with transudate to effusion most likely secondary to patient's congestive heart failure. 06/30/2018 latest chest x-ray done on 06/27/2018 shows moderate right pleural effusion. Seen by electrical solderer on 06/27/2018. Plan is to continue the present management. He had a right-sided thoracentesis was done on 05/13/2019 with removal of 750 cc of fluid. 07/01/2018 on 05/13/2019 750 cc of fluid was removed after thoracentesis. Follow- up chest x-ray shows stable right pleural effusion. Patient is not in respiratory distress. Plan is to continue the present management. 07/02/2018 follow-up chest x-rays indicates stable pleural effusions. Patient is not in respiratory distress. Plan is to continue the present management. 07/03/2018-thoracentesis was done on 05/13/2019 with removal of 750 mL of fluid follow-up x-ray shows stable pleural effusions am going to repeat the chest x- ray today again. 07/04/2018-on 05/13/2019 thoracentesis was done so for 50 mL of fluid was removed. It is a transudate. Follow-up chest x-rays shows stable pleural effusions. 07/06/2018 thoracentesis was done on 05/13/2018 750 mL of fluid was removed it most likely secondary to chronic CHF. Follow-up chest x-ray shows stable pleural effusions. (4) CAD (coronary artery disease) Is this a current diagnosis for this admission?: Yes Plan: 05/19/2018 patient has history of coronary artery disease. No complaints of any chest pains in the last 24-48 hours. Patient is on statins, aspirin, beta- blockers. Plan is to continue the present management. 05/20/2018 patient history of coronary artery disease. No complaints of any chest pains during the hospital stay. 05/21/2018 plan is to continue the current management. 05/22/2018 patient is on statins aspirin and beta-blockers no complaints of chest pain. Plan is to continue the present management. 05/23/2018-plan is to continue the present management patient is asymptomatic. 09/22/2017-patient has history of coronary artery disease, no complaints of chest pain during the hospital stay. 06/03/2018-patient has history of coronary artery disease no complaints of chest pain during the hospital stay. 06/04/2018- to continue present rx 06/08/2018 patient has history of coronary artery disease status post stent placement. Today he is complaining of chest pains requested for stat EKG c ardiac enzymes x3. plan to start on nitroglycerin 0.4 mg every 5 minutes as needed for chest pain. 06/30/2018-patient has history of coronary artery disease status post stent placement. He is asymptomatic during the hospital stay. Presently is on aspirin, statin and beta-steve. Plan is to continue the present management. 07/01/2018 patient has history of coronary artery disease status post stent placement. Patient is asymptomatic during the hospital stay. Presently he is on aspirin statin and beta blockers. 07/02/2018 patient has history of coronary artery disease status post stent place ment. Presently on aspirin, statin, beta blockers. No complaints of chest pain. 07/03/2018-patient has history of coronary artery disease status post stent placement. No complaints of chest pain. Plan is to continue aspirin statin and beta-blockers. 07/04/2018 patient has history of coronary artery disease status post stent placement no complaints of chest pain patient condition is stable. (5) Hyperkalemia Is this a current diagnosis for this admission?: Yes Plan: Potassium level on 06/28/2018 is 5.4. He was off the Aldactone. Plan is to check a CMP today. If the potassium is still high I am going to put him on Kayexalat e. 07/01/2018 patient potassium level is 5.3 yesterday. He is not on any potassium sparing diuretics. Started on Kayexalate 15 mL twice a day. 07/02/2018 latest potassium is 5.2 he was started on Kayexalate and daily basis. Plan is to recheck the labs tomorrow. 07/03/2018 latest potassium level is 5.7. Going to put him on Kayexalate 30 mg p.o. every 6 hours, started on Veltassa 8.4 gm daily. Plan to recheck the labs tomorrow. 07/04/2018-latest potassium is 5.6 yesterday it was 5.7 started on Veltassa and also on Kayexalate. But the nurse told me Kayexalate is back dated on we decided to continue Victoza. Lasix was increased to 40 mg daily still potassium is elevated with 5.6 and he is also on MiraLAX for constipation. We are going to check his potassium levels again tomorrow patient is asymptomatic. I discussed the plan with the nurse Petra she said patient is not compliant with Kayexalate and MiraLAX will try to convince him to take those medications to bring the potassium levels down. 07/05/2018-patient's potassium is persistently high above 5.4 today better compared to yesterday. Patient said he has a good bowel movement yesterday. Patient is on Veltassa, is also getting as needed Kayexalate. Plan is to recheck his labs tomorrow. 07/06/2018-potassium is persistently high 5.5 today. Potassium was increased to 25.6 g/day. Plan to repeat the labs tomorrow patient is asymptomatic. (6) DEANNA (acute kidney injury) Is this a current diagnosis for this admission?: Yes Plan: 06/30/2018-patient was admitted with acute kidney injury which was resolved. Creatinine latest one is 1.28 at baseline. Presently on Lasix 20 mg p.o. daily. Plan is to check creatinine panel tomorrow. 07/01/2018-patient was admitted with elevated creatinine levels 1.45 present creatinine is 1.38 acute kidney injury is resolved. 07/02/2018 latest creatinine is 1.5-20 Slowly. Plan to stop allopurinol and Lasix. To recheck his renal panel tomorrow. Worsening kidney function may be secondary to medications/prerenal causes. 07/03/2018-patient's latest creatinine is 1.4 it is fluctuating between 1.25-1.4. Plan is to check the daily labs. 07/04/2018-latest creatinine is 1.3 stable his baseline creatinine is around 1.28. Presently on Lasix 40 mg p.o. daily. Plan is to continue the present management. 07/05/2018-latest creatinine was 1.41 it is fluctuating between 1.3-1.4. His acute kidney injury is resolved. 07/06/2018-patient latest creatinine is 1.38-stable. (7) Gouty arthritis Is this a current diagnosis for this admission?: Yes Plan: 06/30/2018-patient has history of gouty arthritis complaining of left foot pain and right hand pain plan is to check his uric acid levels. Started on Percocet 5/25 mg every 6 as needed. To check uric acid levels. Started on allopurinol 100 mg p.o. twice daily. 07/01/2018 uric acid levels came back at 7.8. Within normal range. Patient was started on allopurinol 100 mg p.o. twice daily and he says is not helping him at all. He was also placed on Percocet yesterday. 07/02/2018 patient is complaining of arthritis he thinks it was gouty arthritis. Uric acid level is 7.8 patient is on prednisone 10 mg p.o. twice daily. Because of the worsening renal function allopurinol was discontinued. 07/03/2018-patient is still complaining for arthritis he thinks is gouty arthritis wants to be on allopurinol. I tried to explain to him because of these poor kidney function may be allopurinol may not be a good option, presently we will continue to give Percocets for pains. Patient is also on a small dose of prednisone. 07/04/2018-patient denies any complaints of any joint pains today comfortably sleeping in the chair woke up and denies any complaints today. Plan is to continue the present management. 07/06/2018 no complaints of joint pains today patient is stable. - Time Time Spent with patient: 15-24 minutes Medications reviewed and adjusted accordingly: Yes Anticipated discharge: Home with Homehealth
[2018-07-06] MEDS: PATIROMER 8.4 GM SUSP PACKET PO SCH (20:22)
[2018-07-06] MEDS: ROPINIROLE HCL 0.25 MG TABLET PO SCH (21:23)
[2018-07-07] MEDS: LANSOPRAZOLE 30 MG TAB.RAP.DR PO SCH ×2 (05:17→17:08)
[2018-07-07 09:04] LABS: ABSOLUTE EOSINOPHILS # (AUTO) 0.1 10^3/uL (0.0-0.6); ABSOLUTE LYMPHOCYTES (AUTO) 1.2 10^3/uL (0.5-4.7); ABSOLUTE MONOCYTES (AUTO) 0.9 10^3/uL (0.1-1.4); ABSOLUTE NEUT (AUTO) 5.3 10^3/uL (1.7-8.2); BASOPHILS % (AUTO) 0.6 % (0-2); EOSINOPHILS % (AUTO) 1.4 % (0-6); HEMATOCRIT 36.1 % (37.9-51.0); LYMPHOCYTES % (AUTO) 15.5 % (13-45); MEAN CORPUSCULAR HEMOGLOBIN 27.8 pg (27.0-33.4); MEAN CORPUSCULAR HGB CONC 33.2 g/dL (32.0-36.0); MEAN CORPUSCULAR VOLUME 84 fl (80-97); MONOCYTES % (AUTO) 12.2 % (3-13); PLATELET COUNT 250 10^3/uL (150-450); RED BLOOD COUNT 4.32 10^6/uL (4.35-5.55); RED CELL DISTRIBUTION WIDTH 15.3 % (11.5-14.0); SEGMENTED NEUTROPHILS % (AUTO) 70.3 % (42-78); TOTAL CELLS COUNTED % (AUTO) 100 %; WHITE BLOOD COUNT 7.6 10^3/uL (4.0-10.5)
[2018-07-07] MEDS: ACETAMINOPHEN 325 MG TABLET PO SCH ×4 (09:11→21:00)
[2018-07-07] MEDS: GABAPENTIN 300 MG CAPSULE PO SCH ×2 (09:11→20:59)
[2018-07-07] MEDS: ASPIRIN 81 MG TABLET, CHEWABLE PO SCH (09:11)
[2018-07-07] MEDS: DOCUSATE SODIUM 100 MG CAPSULE PO SCH ×2 (09:11→17:08)
[2018-07-07] MEDS: CYCLOSPORINE 0.05% OPH EMULSIO 0.4 ML DROPERETTE OU SCH (09:13)
[2018-07-07] MEDS: PREDNISONE 10 MG TABLET PO SCH ×2 (09:13→17:08)
[2018-07-07] MEDS: CARVEDILOL 3.125 MG TABLET PO SCH ×2 (09:14→21:00)
[2018-07-07] MEDS: FUROSEMIDE 40 MG TABLET PO SCH (09:14)
[2018-07-07] MEDS: DIGOXIN 0.125 MG TABLET PO SCH (09:14)
[2018-07-07] MEDS: POLYETHYLENE GLYCOL 3350 POWDER 17 GM/1 PACKET PO SCH (09:15)
[2018-07-07 09:19] LABS: ALANINE AMINOTRANSFERASE 37 U/L (21-72); ALBUMIN 4.4 g/dL (3.5-5.0); ALKALINE PHOSPHATASE 86 U/L (38-126); ANION GAP 11 (5-19); ASPARTATE AMINO TRANSFERASE 30 U/L (17-59); BILIRUBIN,DIRECT 0.1 mg/dL (0.0-0.4); BILIRUBIN,TOTAL 0.4 mg/dL (0.2-1.3); BLOOD UREA NITROGEN 37 mg/dL (7-20); CALCIUM 9.5 mg/dL (8.4-10.2); CARBON DIOXIDE 36 mmol/L (22-30); CHLORIDE 96 mmol/L (98-107); GLUCOSE 140 mg/dL (75-110); POTASSIUM 5.2 mmol/L (3.6-5.0); SODIUM 142.6 mmol/L (137-145); TOTAL PROTEIN 7.1 g/dL (6.3-8.2)
--- NOTE | 2018-07-07 11:19 | PDOC PROGRESS REPORT ---
Subjective Progress Note for:: 07/07/18 Subjective:: This is a 62-year-old male with a past medical history of CAD, prior CABG, COPD, diet-controlled DM, chronic systolic heart failure from ischemic cardiomyopathy with prior AICD placement, chronic respiratory failure on home O2, history of CVA with residual partial expressive aphasia who initially presented with increasing shortness of breath and leg swelling. Patient was admitted for CHF exacerbation. Patient has partial expressive aphasia (has some residual slurring and pauses) but is coherent and is able to converse with provider. He says his SOB is at baseline but he becomes short of breath when lying supine. He has been having persistent orthopnea. 05/13: Discussed in length again this morning with caregiver (Nuria) and patient. We discussed the need for thoracentesis again this morning including the indication due to his persistent orthopnea and significant bilateral pleural effusion. Also discussed the small risk of pneumothorax. Patient did agree undergo thoracentesis as he has been having patient orthopnea. Patient is oriented to person, place and situation. Also discussed with development planner on bedside about possible option to be transferred to a [facility] in [place] as patient is a his history of placement and disposition. He does not want to be transferred at this time and would prefer to stay here. 05/14: Patient does appear to have into capacity to make his own medical decisions. Patient was also evaluated by psych who deemed the same. Discussed in length again today about plan and disposition. Patient says he does not want to go to a assisted or rehab. He also does not want to talk about his CODE STATUS and says that he will "sort it out" later. Offered palliative care consult and he is receptive to it but not hospice. He says his breathing has improved after the thoracentesis. Tankage Supervisor recommended BiPAP at home. Patient is resistant on using BiPAP at home but agrees to try it here while inpatient and see if he tolerates it. 05/15: Upon encounter this morning, patient was sleeping on the recliner. Patient says that his house is not fixed yet. He says he does not want to go to any of the surrounding SNF/rehab facilities at this time but is agreeable to being transferred to the [facility] in [place]. Convinced on trying the BiPAP and he says he will try wearing it. 05/16: No acute event overnight. Patient has complied with BIPAP. He says his breathing has slightly improved but still has orthopnea. Denies chest pain or dizziness. 05/17: Patient says his breathing has improved and he feels better today. He says he can use the BIPAP for 2 hrs but is willing to try to extend it to 3-4 hrs today. 05/18: Patient only used BIPAP for 1.5 hrs last night. Upon encounter, he does say that he breathes and feels better when on BIPAP. He was advised on increa sing his BIPAP use again today. He denies worsening SOB or chest pain. Still awaiting for update on transfer to [facility] in [facility]. 05/19/2018-no acute events in the last 24 hours as per the patient he is using BiPAP 3-4 hours a day. He is comfortably in the chair on oxygen via nasal tom kurt. Denies any problems. Waiting for placement in [facility]. 05/20/2018-no acute events in the last 24 hours. Patient is on oxygen via nasal cannula walking in the room. Denies any complaints. Using BiPAP 4 hours a day. Patient is waiting for placement at [facility]. 05/21/2018 no acute events in the last 24 hours. Patient is complaining of pain in both arms. I am going to put him on Percocet 09/25/2024 every 8 as needed for pain. Patient is on 2 L nasal cannula pulse ox is 96%. He is using BiPAP 4 hours a day. 05/22/2018-no acute events over the last 24 hours. Patient is afebrile. Patient is complaining of dry skin and itching he wants some Benadryl. 05/23/2018 no acute events in the last 24 hours. His BiPAP requirements are decreased. Patient is afebrile. His pulse ox is 99% on 2 L. Notably sitting in the bed communicating okay. 05/24/2018 -no acute events in the last 24 hours. Patient pulse oxes 99% on 2 L. Is comfortably sleeping in his chair. Denies any complaints. 05/25/2018-no acute events in the last 24 hours. Pulse ox is 100% on 2 L. He is comfortable in the chair communicating very well. Denies any complaints. [facility] 05/26/18: He has been more complaint with BIPAP. He denies acute SOB and feels like he is at his baseline. 05/27/18: No acute event overnight. He did complaint of transient chest tightness this morning after he ate a big breakfast (ham and omelet). He says it only lasted for a few seconds. EKG was negative for acute changes. 05/28/18: No acute event. No acute symptoms, no chest pain or SOB. He is at his baseline. 05/29/18: No acute event. Patient denies any acute complaint. Updated by RN and development planner that patient's house will be condemned due to multiple issues. 05/30/18: No acute issues. Patient is still awaiting placement. 05/31/18:Patient is still awaiting placement. Discussed with Eryn on bedside, patient's mental health case manager who says she is getting her new house this friday and may be able to have patient live with her. 06/01/18: No acute issues. Plan to discharge patient to her mental health case manager's new house later this week with home health. Solar Process Engineer says she is confident she is able to take care of him at her new house. Patient also prefers discussed disposition. 06/02/2018-patient is afebrile no acute events in the last 24 hours patient waiting to go to caretakers home. 06/03/2018 no acute events in last 24 hours. Patient is comfortable in the chair talking to the family members on the phone. Denies any complaints. 06/04/2018-no acute events in the last 24 hrs. afebrile .pulse ox 98% on 2lts. 06/05/2018-no acute events in the last 24 hours. Patient is afebrile. Pulse ox is 99% on 2 L. 06/06/2018-no acute events in the last 24 hours. Patient is afebrile. Comfortably in the chair sleeping. Denies any complaints. 06/07/2018 patient is afebrile and doing well no complaints no acute events in the last 24 hours. 2018 has saw the patient this morning is comfortably in the chair complaining of left hand pain resting pain medications. His pulse ox are stable. Afebrile. Few minutes ago nurse regional retail sales manager Spencer called me to notify that patient is complaining of chest pains vital signs are stable pulse ox is normal so I requested him to do the EKG and cardiac enzymes x3 along with nitroglycerin 0.5 mg subcu every 5 minutes as needed for chest pain. 06/09/18: Reassumed care today. No acute issues in the interim. Patient still here due to placement issues. Apparently, his mental health case manager's house was not ready yet. He is at his baseline and denies chest pain or SOB at the moment. 06/13/18: No acute issues. Denies chest pain or SOB. Discussed on bedside with Eryn (mental health case manager) today who says they are still doing repairs for a leakage at her house. Patient has remained stable with no acute issues in the interim and is still waiting for placement. 06/23/18: Reassumed care today. No acute issues. 06/24/18: No acute issues. He denies acute complaints. Still awaiting placement. [facility] 06/25/18: Patient reportedly tripped last night but did not fall on the floor. Otherwise, he denies acute complaints. 2: No acute event overnight. He is asleep upon encounter. When he woke up, he complains of heartburn. He says it is not chest pain but more of a burning sen sation on the chest which he had in the past. He was given a GI cocktail which completely resolved his heartburn. 2: No acute event overnight. Denies chest pain or SOB. No recurrence of heartburn. He does say he continues to have intermittent pain on the left hand joints and right foot. He says he has a history of gouty arthritis. Will add low dose prednisone. 23: No acute event overnight. Re evaluated by pulmonology yesterday and repeat CXR was ordered which showed stable changes, no worsening of pleural effusion. He says his hand and right foot joint pains improved with the prednisone. Denies chest pain or SOB. He says Eryn told him, the house may be ready by Friday (06/30). 06/29: No acute issues. Denies SOB or chest pain. Still awaiting placement. 06/30/2018 no acute events in the last 24 hours. Patient is afebrile. Patient is complaining of left foot pain and hand pain. He has history of gout. Be going to check his uric acid level, started him on allopurinol 100 mg p.o. twice daily and switched tramadol to Percocet every 6 as needed for pain. 07/01/2018 no acute events in the last 24 hours. Patient is afebrile. Patient is complaining of left foot pain and right hand pain yesterday uric acid levels were done uric acid level 7.8 within normal limits. He was started on allopurinol and the patient states is not helping him at all. 07/02/2018-patient is still complaining of gouty arthritis. Uric acid level is 7.8 which was normal. Patient is on prednisone 10 mg p.o. twice daily and also on allopurinol 100 mg p.o. twice daily. She is also receiving Percocets every 6 as needed. Patient was reassured. No other complaints. 07/03/2018 no acute events in the last 24 hours. Patient is afebrile. Waiting for the placement. 07/04/2018-no acute events in the last 24 hours. Afebrile. Patient is comfortably sleeping in the chair. Waiting for the placement. 07/05/2018-no acute events in the last 24 hours. Patient is stable. Waiting for placement. 07/06/2018-no acute events in the last 24 hours. Patient is afebrile. No complaints of any arthritis pain today. Comfortably sitting in the chair. The nurse told me we need to put a PPD order for him for the placement. 07/07/2018-no acute events in last 24 hours. Patient is afebrile. Adult Protective Services came and talked to the patient today. Blood in the bed no complaints. Reason For Visit: CHF Physical Exam Vital Signs: Temp Pulse Resp BP Pulse Ox 97.9 F 88 18 113/71 96 07/06/18 20:16 07/06/18 20:16 07/06/18 15:54 07/06/18 20:16 07/06/18 20:16 Intake & Output 07/06/18 07/07/18 07/08/18 06:59 06:59 06:59 Intake Total 1280 844 Output Total 650 675 Balance 630 169 Weight 86.6 kg General appearance: PRESENT: no acute distress Head exam: PRESENT: atraumatic Eye exam: PRESENT: PERRLA Mouth exam: PRESENT: moist, tongue midline Neck exam: ABSENT: carotid bruit, JVD, lymphadenopathy, thyromegaly Respiratory exam: PRESENT: decreased breath sounds Cardiovascular exam: PRESENT: bradycardia, clicks, diastolic murmur, gallop, irregular rhythm, RRR, rubs, +S1, +S2, systolic murmur, tachycardia, other - Patient has a pacemaker GI/Abdominal exam: PRESENT: normal bowel sounds, soft. ABSENT: distended, guarding, mass, organolmegaly, rebound, tenderness Extremities exam: PRESENT: full ROM. ABSENT: calf tenderness, clubbing, pedal edema Neurological exam: PRESENT: alert, awake, oriented to person, oriented to place, oriented to time, oriented to situation, CN II-XII grossly intact. ABSENT: motor sensory deficit Psychiatric exam: PRESENT: appropriate affect, normal mood. ABSENT: homicidal ideation, suicidal ideation Results Laboratory Results: 07/07/18 08:42 07/07/18 08:42 07/07/18 07/07/18 08:42 08:42 WBC 7.6 RBC 4.32 L Hgb 12.0 L Hct 36.1 L MCV 84 MCH 27.8 MCHC 33.2 RDW 15.3 H Plt Count 250 Seg Neutrophils % 70.3 Lymphocytes % 15.5 Monocytes % 12.2 Eosinophils % 1.4 Basophils % 0.6 Absolute Neutrophils 5.3 Absolute Lymphocytes 1.2 Absolute Monocytes 0.9 Absolute Eosinophils 0.1 Absolute Basophils 0.0 Sodium 142.6 Potassium 5.2 H Chloride 96 L Carbon Dioxide 36 H Anion Gap 11 BUN 37 H Creatinine 1.31 H Est GFR ( Amer) > 60 Est GFR (Non-Af Amer) 55 L Glucose 140 H Calcium 9.5 Magnesium 1.8 Total Bilirubin 0.4 AST 30 ALT 37 Alkaline Phosphatase 86 Total Protein 7.1 Albumin 4.4 05/11/18 05/11/18 05/11/18 09:35 09:35 09:35 Creatine Kinase 37 L CK-MB (CK-2) Troponin I 0.071 NT-Pro-B Natriuret Pep 6800 H 05/11/18 05/11/18 05/12/18 12:30 19:00 01:06 Creatine Kinase CK-MB (CK-2) Troponin I 0.067 0.064 0.050 NT-Pro-B Natriuret Pep 05/23/18 05/24/18 05/27/18 10:36 09:38 10:01 Creatine Kinase CK-MB (CK-2) Troponin I 0.060 NT-Pro-B Natriuret Pep 819 889 06/03/18 06/08/18 06/08/18 08:12 13:40 13:40 Creatine Kinase 39 L CK-MB (CK-2) 1.92 Troponin I 0.060 NT-Pro-B Natriuret Pep 1420 H 06/08/18 06/08/18 06/09/18 19:03 19:03 00:59 Creatine Kinase 36 L 34 L CK-MB (CK-2) 1.75 Troponin I 0.058 NT-Pro-B Natriuret Pep 06/09/18 06/09/18 06/09/18 00:59 08:04 08:04 Creatine Kinase 32 L CK-MB (CK-2) 1.58 1.79 Troponin I 0.063 0.064 NT-Pro-B Natriuret Pep 06/09/18 06/09/18 06/09/18 12:52 12:52 19:00 Creatine Kinase 46 L 31 L CK-MB (CK-2) 1.99 Troponin I 0.051 NT-Pro-B Natriuret Pep 06/09/18 06/25/18 07/04/18 19:00 07:35 08:21 Creatine Kinase CK-MB (CK-2) 1.80 Troponin I 0.072 0.054 NT-Pro-B Natriuret Pep 1660 H Impressions: Thoracentesis Ultrasound 05/13/18 10:06 IMPRESSION: SUCCESSFUL THORACENTESIS USING ULTRASOUND GUIDANCE. Chest X-Ray 07/03/18 00:00 IMPRESSION: Cardiomegaly. Small bibasilar effusions. Mild pulmonary vascular congestion. copyright 2010 [employer]- All Rights Reserved Assessment & Plan - Diagnosis (1) Acute and chronic respiratory failure with hypoxia Is this a current diagnosis for this admission?: Yes Plan: 05/19/2018 acute on chronic respiratory failure with hypoxia probably secondary to CHF exacerbation. He is on BiPAP for 3-4 hours/day. Plan is to continue the current management. 05/20/2018-patient was admitted for acute on chronic respiratory failure with hypoxia probably secondary to CHF exacerbation. He is using BiPAP 4 hours a day. No acute events in the last 24 hours. Plan is to continue the present management. 05/21/2018-patient is comfortably in the chair on 2 L oxygen via nasal cannula. Acute on chronic respiratory failure resolved with hypoxia resolved. Is awaiting for placement in [facility]. 05/22/2018-pulse ox on 2 L is 100% today. Patient is comfortably in the chair. Only complaint is his complaint of dry skin and itching. [facility] He is using BiPAP 3-4 hours a day. His acute on chronic respirat ory failure with hypoxia probably secondary to CHF exacerbation. I am going to recheck his BMP tomorrow. Pt is not in fluid overload today. 05/23/2018 pulse ox on 2 L is 99% patient is able to walk in the hallway on 2 L oxygen without any problems. He did not have need to use the BiPAP in the last 24 hours. He has been BNP is around 820. no Signs of any fluid overload. Plan is to continue the present management. 05/24/2018 patient was admitted for acute on chronic respiratory failure with hypoxia hypoxia resolved. Patient is not on BiPAP anymore. Pulse ox is pulse ox is 91% on 2 L. Patient waiting for placement in [place]. 05/25/2018-2 L oxygen pulse ox 100% hypoxia with acute respiratory failure resolved patient is not using the BiPAP anymore. He is waiting for placement at [facility]. 06/02/2017-pulse ox on 2 L is 97% today. Using the BiPAP on and off. Waiting waiting to go to [facility] probably on Friday. The meantime will continue the present management. 06/03/2018-patient pulse ox is 99% on 2 L. He is using the BiPAP on and off. No complaints from the patient. Plan is to discharge him to [facility] on Friday. 06/04/2018-pulse ox is 100% on 2lts.using BIPAP on and off. no complaints. comfortable in chair eating lunch. 06/05/2018 pulse ox is 99% on 2 L. Not using the BiPAP at this time. Comfortably in the chair communicating well. Waiting for the placement. 06/06/2018-pulse ox on 2 L is 99%. Patient is not using the BiPAP anymore. He acute on chronic respiratory failure with hypoxia and hypercapnia resolved. 06/08/2018-pulse ox is 100% on 2 L. Patient is not on BiPAP anymore. Acute on chronic respiratory failure with hypoxia and hypercapnia resolved. 06/07/2018 patient pulse oxes are 98% on 2 L patient is off the BiPAP right now acute on chronic respiratory failure with hypoxia and hypercapnia resolved patient waiting for placement at the caretakers home. 06/30/2018-patient was admitted with acute on chronic respiratory failure hypoxia probably secondary to CHF exacerbation. Pulse oxes 100% on 2 L. Using BiPAP at night. Plan is to continue the present management. 07/01/2018-patient was admitted with acute on chronic respiratory failure with hypoxia most likely secondary to CHF exacerbation. Patient is in the BiPAP at night. Pulse ox today is 100% on 2 L. Patient is comfortably in the chair no complaints. 07/02/2018-patient was admitted with acute on chronic respiratory failure with hypoxia most likely to CHF exacerbation. He is on oxygen 2 L via nasal cannula pulse ox is 96%. He is using the BiPAP at night. 07/03/2018-patient was admitted with acute on chronic respiratory failure with hypoxia most likely secondary to congestive heart failure. Patient is presently on 2 L oxygen pulse ox is 99%. Uses BiPAP at night. He acute on chronic respiratory failure with hypoxia is resolved. 07/04/2018-patient was admitted with acute on chronic respiratory failure with hypoxia most likely secondary to exacerbation of congestive heart failure. Pulse ox is 100% on 2 L. Plan is to continue the present management. 07/05/2018 patient pulse ox today is 97% on 2 L. He is using occasionally BiPAP during the nights. He acute on chronic respiratory failure secondary to CHF exacerbation is resolved. 07/06/2018-pulse ox today is 97% on 2 L. Patient is comfortably in the chair. Using BiPAP at night. 07/07/2018-pulse ox today is 96% on 2 L. Acute on chronic respiratory failure is real. Patient is comfortably in the chair. Using the BiPAP at night. Waiting for the placement. (2) Acute on chronic systolic (congestive) heart failure Is this a current diagnosis for this admission?: Yes Plan: Combined systolic and diastolic biventricular failure. Continue Lasix 40 mg daily. Cardiology following. Echo shows an EF of 30-35%, grade 2 diastolic dysfunction and dilated left and right ventricular. Patient already has an AICD. Patient is not on UZMA inhibitor hence is not on optimal medical therapy. CHF medication regimen cannot be optimized as patient has had angioedema from captopril before. Both UZMA inhibitors and Entresto will be contraindicated to a history of ACEi-associated angioedema. Discussed with cardio and pulm. Alejandro mmendation for BIPAP at home/discharge for his biventricular heart failure and significant pulmonary hypertension. Continue Coreg and Aldactone. 05/16/18: Decreased Lasix to 40 mg IV daily from q12 due to alkalosis. 05/19/2018-patient has history of congestive heart failure. Which is combined s ystolic diastolic biventricular failure. Patient is on Lasix 40 mg IV twice daily. cardiology on board. EF is 30-35%. Grade 2 diastolic dysfunction and dilated left and right ventricular chambers. Patient has AICD. Patient is not on UZMA inhibitors because of history of angioedema. UZMA inhibitors and Entresto are not contraindicated because of the ACEi associated angioedema. Patient is also on Coreg and Aldactone. [facility] 05/20/2018-has a combined systolic diastolic biventricular failure. EF is 30- 35%. Echocardiogram shows grade 2 diastolic dysfunction and dilated left and right ventricular chambers. Patient has AICD. Patient is not on UZMA inhibitors because of history of angioedema. Stoped Aldactone today because potassium is 5.1. 05/21/2018-patient has history of congestive heart failure combined systolic diastolic biventricular failure with EF of 30-35%. Patient is allergic to UZMA inhibitors gives angioedema. Latest potassium is 5.1. We are going to check his potassium levels today. Yesterday I stopped his spironolactone and we stopped potassium supplementation. 05/22/2018-his latest potassium is 5.0 potassium supplementation was discontinued spironolactone was discontinued, has EF is 30-35%. Patient is not in fluid overload I am going to follow the patient regular basis. 05/23/2018-potassium level is 5.0 stable patient ejection fraction is 30-45%. Patient has combined systolic diastolic biventricular heart failure. He has AICD. And is to continue the present management. 05/24/2018-patient's has a biventricular systolic and diastolic heart failure with EF of 35-40%. Patient has AICD. He is on Lasix 40 IV daily I am going to switch her to 40 mg p.o. daily. 05/25/2018-patient is not in fluid overload chest was clear no pedal edema. He has biventricular systolic/diastolic heart failure with EF of 35-40%. He is on Lasix.Combined systolic and diastolic biventricular failure. Continue Lasix 40 mg daily. Cardiology following. Echo shows an EF of 30-35%, grade 2 diastolic dysfunction and dilated left and right ventricular. Patient already has an AICD. Patient is not on UZMA inhibitor hence is not on optimal medical therapy. CHF medication regimen cannot be optimized as patient has had angioedema from captopril before. Both UZMA inhibitors and Entresto will be contraindicated to a history of ACEi-associated angioedema. Discussed with cardio and pulm. Recommendation for BIPAP at home/discharge for his biventricular heart failure and significant pulmonary hypertension. Continue Coreg. Aldactone was d/raghav due to his potassium trending up. Aldactone resumed. Continue Lasix 40 mg daily. 06/02/2017-patient has combined systolic and diastolic biventricular failure he is on Lasix 40 mg p.o. daily and also on Aldactone. Patient is not in fluid overload. And is to continue the present management. 06/03/2017 patient has history of combined systolic diastolic biventricular failure on Lasix 40 mg p.o. daily and is also on Aldactone potassium levels going back up again it was 5.2 today I am going to stop the Aldactone and and follow the potassium levels. 06/04/2018-pt is not in fluid overload. plan to continue present treatment. 06/05/2018-patient has history of for combined systolic/diastolic biventricular failure on Lasix 40 mg p.o. daily Aldactone was discontinued because of the persistently elevated potassium levels. Potassium level today is 3.7. 06/06/2018-patient has a biventricular heart failure with EF of less than 30% patient is not in fluid overload. Plan is to continue the present management. 06/08/2018-patient has history of heart failure with EF of less than 30% patient is not in fluid overload. He has AICD. 06/07/2018 patient has history of biventricular heart failure with EF of less than 30% patient is not in fluid overload plan is to continue the present management. 06/30/2018-patient has history of combined systolic diastolic biventricular heart failure. Cardiology consult was done echocardiogram shows EF of 30-35% grade 2 diastolic dysfunction and dilated left and right heart ventricules. Patient is presently on Lasix 20 mg p.o. daily. Not in fluid overload. Plan is to check a BNP and labs tomorrow. Latest BNP is 1490. 07/02/2018 patient has history of biventricular heart failure. Is also systolic and diastolic heart failure echocardiogram with EF of 30-35% and grade 2 diastolic dysfunction with a dilated left and right ventricles. Patient is presently on Lasix 20 mg p.o. daily not in fluid overload. His creatinine is slowly trending up. I am going to hold his Lasix for now. 07/03/2018-patient has history of biventricular failure. EF is 30-35%. In association with a diastolic dysfunction. Patient is on Lasix 20 mg daily. Plan is to increase the Lasix to 40 mg daily because of the persistently elevated potassium levels. 07/04/2018 patient has a history of biventricular heart failure. EF is 30-35%. No signs of fluid overload. Follow-up chest x-ray done yesterday shows no vascular congestion small bilateral pleural effusions. Patient is presently on Lasix 40 mg p.o. daily. 07/05/2018-patient has a biventricular heart failure. EF of 30-35%. No signs of fluid overload. Chest x-ray shows small stable bilateral pleural effusions. Presently on Lasix 40 mg p.o. daily. Plan is to continue the present management. 07/07/2018-patient has biventricular heart failure with a pacemaker. EF is 30- 35%. Chest x-ray shows stable small bilateral effusions. Presently on Lasix 40 mg p.o. daily. Plan is to continue the present management. (3) Pleural effusion Is this a current diagnosis for this admission?: Yes Plan: 05/19/2018-patient came in with a right-sided pleural effusion status post thoracentesis on 05/13/2018 with removal of 750 cc of fluid. Fluid analysis consistent with transudate. Which is likely secondary to CHF. Negative for i nfection. 05/20/2018-patient came in with right pleural effusion status post thoracentesis on 05/13/2018. The cultures are negative. 05/21/2018 status post thoracentesis of right pleural effusion 750 cc of fluid was removed. cultures Negative. 05/23/2018 during this hospital stay he had a right-sided thoracentesis. And 750 cc of fluid was removed. I am going to redo the chest x-ray today. 05/25/2018-status post right-sided thoracentesis. On examination decreased air entry at the right base. Probably persistent pleural effusion. 06/12/2017 status post right-sided thoracentesis with 750 cc of fluid removal on 05/13/2018. Pleural fluid analysis is consistent with transudate to effusion most likely secondary to patient's congestive heart failure. 06/30/2018 latest chest x-ray done on 06/27/2018 shows moderate right pleural effusion. Seen by mortgage analyst on 06/27/2018. Plan is to continue the present management. He had a right-sided thoracentesis was done on 05/13/2019 with giovanna yvonne of 750 cc of fluid. 07/01/2018 on 05/13/2019 750 cc of fluid was removed after thoracentesis. Follow- up chest x-ray shows stable right pleural effusion. Patient is not in respiratory distress. Plan is to continue the present management. 07/02/2018 follow-up chest x-rays indicates stable pleural effusions. Patient is not in respiratory distress. Plan is to continue the present management. 07/03/2018-thoracentesis was done on 05/13/2019 with removal of 750 mL of fluid follow-up x-ray shows stable pleural effusions am going to repeat the chest x- ray today again. 07/04/2018-on 05/13/2019 thoracentesis was done so for 50 mL of fluid was removed. It is a transudate. Follow-up chest x-rays shows stable pleural effusions. 07/06/2018 thoracentesis was done on 05/13/2018 750 mL of fluid was removed it most likely secondary to chronic CHF. Follow-up chest x-ray shows stable pleural effusions. [id number] chest x-ray shows stable small pleural effusions. (4) CAD (coronary artery disease) Is this a current diagnosis for this admission?: Yes (5) Hyperkalemia Is this a current diagnosis for this admission?: Yes Plan: Potassium level on 06/28/2018 is 5.4. He was off the Aldactone. Plan is to check a CMP today. If the potassium is still high I am going to put him on K ayexalate. 07/01/2018 patient potassium level is 5.3 yesterday. He is not on any potassium sparing diuretics. Started on Kayexalate 15 mL twice a day. 07/02/2018 latest potassium is 5.2 he was started on Kayexalate and daily basis. Plan is to recheck the labs tomorrow. 07/03/2018 latest potassium level is 5.7. Going to put him on Kayexalate 30 mg p.o. every 6 hours, started on Veltassa 8.4 gm daily. Plan to recheck the labs tomorrow. 07/04/2018-latest potassium is 5.6 yesterday it was 5.7 started on Veltassa and also on Kayexalate. But the nurse told me Kayexalate is back dated on we decided to continue Victoza. Lasix was increased to 40 mg daily still potassium is elevated with 5.6 and he is also on MiraLAX for constipation. We are going to check his potassium levels again tomorrow patient is asymptomatic. I discussed the plan with the nurse Petra she said patient is not compliant with Kayexalate and MiraLAX will try to convince him to take those medications to bring the potassium levels down. 07/05/2018-patient's potassium is persistently high above 5.4 today better compared to yesterday. Patient said he has a good bowel movement yesterday. Patient is on Veltassa, is also getting as needed Kayexalate. Plan is to recheck his labs tomorrow. 07/06/2018-potassium is persistently high 5.5 today. veltassa was increased to 25.6 g/day. Plan to repeat the labs tomorrow patient is asymptomatic. 07/07/2018-patient does have the persistently elevated potassium levels it is 5.2 today he was started on Veltassa 25.6 g daily and he was also on MiraLAX but he is refusing to take the MiraLAX. going to continue to check his chemistry panel and daily basis. (6) DEANNA (acute kidney injury) Is this a current diagnosis for this admission?: Yes Plan: 06/30/2018-patient was admitted with acute kidney injury which was resolved. Creatinine latest one is 1.28 at baseline. Presently on Lasix 20 mg p.o. daily. Plan is to check creatinine panel tomorrow. 07/01/2018-patient was admitted with elevated creatinine levels 1.45 present creatinine is 1.38 acute kidney injury is resolved. 07/02/2018 latest creatinine is 1.5-20 Slowly. Plan to stop allopurinol and Lasix. To recheck his renal panel tomorrow. Worsening kidney function may be secondary to medications/prerenal causes. 07/03/2018-patient's latest creatinine is 1.4 it is fluctuating between 1.25-1.4. Plan is to check the daily labs. 07/04/2018-latest creatinine is 1.3 stable his baseline creatinine is around 1.28. Presently on Lasix 40 mg p.o. daily. Plan is to continue the present management. 07/05/2018-latest creatinine was 1.41 it is fluctuating between 1.3-1.4. His acute kidney injury is resolved. 07/06/2018-patient latest creatinine is 1.38-stable. 07/07/2018 patient's creatinine today is 1.31 stable. Acute kidney injury is resolved. (7) Gouty arthritis Is this a current diagnosis for this admission?: Yes Plan: 06/30/2018-patient has history of gouty arthritis complaining of left foot pain and right hand pain plan is to check his uric acid levels. Started on Percocet 5/25 mg every 6 as needed. To check uric acid levels. Started on allopurinol 100 mg p.o. twice daily. 07/01/2018 uric acid levels came back at 7.8. Within normal range. Patient was started on allopurinol 100 mg p.o. twice daily and he says is not helping him at all. He was also placed on Percocet yesterday. 07/02/2018 patient is complaining of arthritis he thinks it was gouty arthritis. Uric acid level is 7.8 patient is on prednisone 10 mg p.o. twice daily. Because of the worsening renal function allopurinol was discontinued. 07/03/2018-patient is still complaining for arthritis he thinks is gouty arthritis wants to be on allopurinol. I tried to explain to him because of these poor kidney function may be allopurinol may not be a good option, presently we will continue to give Percocets for pains. Patient is also on a small dose of prednisone. 07/04/2018-patient denies any complaints of any joint pains today comfortably sleeping in the chair woke up and denies any complaints today. Plan is to continue the present management. 07/06/2018 no complaints of joint pains today patient is stable. 07/07/2018-patient is comfortably sleeping in the chair denies any joint pains today. - Time Time Spent with patient: 15-24 minutes Medications reviewed and adjusted accordingly: Yes Anticipated discharge: [facility]
[2018-07-07] MEDS: OXYCODONE-ACETAMINOPHEN 5-325 MG TABLET PO PRN (19:34)
[2018-07-07] MEDS: PATIROMER 8.4 GM SUSP PACKET PO SCH (20:32)
[2018-07-07] MEDS: ROPINIROLE HCL 0.25 MG TABLET PO SCH (21:00)
[2018-07-08] MEDS: LANSOPRAZOLE 30 MG TAB.RAP.DR PO SCH ×2 (05:36→18:28)
[2018-07-08] MEDS: ACETAMINOPHEN 325 MG TABLET PO SCH ×4 (10:05→21:24)
[2018-07-08] MEDS: GABAPENTIN 300 MG CAPSULE PO SCH ×2 (10:05→21:24)
[2018-07-08] MEDS: FUROSEMIDE 40 MG TABLET PO SCH (10:06)
[2018-07-08] MEDS: CARVEDILOL 3.125 MG TABLET PO SCH ×2 (10:09→21:24)
[2018-07-08] MEDS: PREDNISONE 10 MG TABLET PO SCH ×2 (10:09→18:27)
[2018-07-08] MEDS: ASPIRIN 81 MG TABLET, CHEWABLE PO SCH (10:09)
[2018-07-08] MEDS: DOCUSATE SODIUM 100 MG CAPSULE PO SCH ×2 (10:09→18:28)
[2018-07-08] MEDS: DIGOXIN 0.125 MG TABLET PO SCH (10:09)
[2018-07-08] MEDS: POLYETHYLENE GLYCOL 3350 POWDER 17 GM/1 PACKET PO SCH (10:10)
[2018-07-08] MEDS: CYCLOSPORINE 0.05% OPH EMULSIO 0.4 ML DROPERETTE OU SCH (10:10)
--- NOTE | 2018-07-08 13:01 | PDOC PROGRESS REPORT ---
Subjective Progress Note for:: 07/08/18 Subjective:: This is a 62-year-old male with a past medical history of CAD, prior CABG, COPD, diet-controlled DM, chronic systolic heart failure from ischemic cardiomyopathy with prior AICD placement, chronic respiratory failure on home O2, history of CVA with residual partial expressive aphasia who initially presented with increasing shortness of breath and leg swelling. Patient was admitted for CHF exacerbation. Patient has partial expressive aphasia (has some residual slurring and pauses) but is coherent and is able to converse with provider. He says his SOB is at baseline but he becomes short of breath when lying supine. He has been having persistent orthopnea. 05/13: Discussed in length again this morning with caregiver (Nuria) and patient. We discussed the need for thoracentesis again this morning including the indication due to his persistent orthopnea and significant bilateral pleural effusion. Also discussed the small risk of pneumothorax. Patient did agree undergo thoracentesis as he has been having patient orthopnea. Patient is oriented to person, place and situation. Also discussed with systems planner on bedside about possible option to be transferred to a [facility] in [place] as patient is a his history of placement and disposition. He does not want to be transferred at this time and would prefer to stay here. 05/14: Patient does appear to have into capacity to make his own medical decisions. Patient was also evaluated by psych who deemed the same. Discussed in length again today about plan and disposition. Patient says he does not want to go to a [facility] or rehab. He also does not want to talk about his CODE STATUS and says that he will "sort it out" later. Offered palliative care consult and he is receptive to it but not hospice. He says his breathing has improved after the thoracentesis. Urologic Nurse recommended BiPAP at home. Patient is resistant on using BiPAP at home but agrees to try it here while inpatient and see if he tolerates it. 05/15: Upon encounter this morning, patient was sleeping on the recliner. Patient says that his house is not fixed yet. He says he does not want to go to any of the surrounding SNF/rehab facilities at this time but is agreeable to being transferred to the [facility] in [place]. Convinced on trying the BiPAP and he says he will try wearing it. 05/16: No acute event overnight. Patient has complied with BIPAP. He says his breathing has slightly improved but still has orthopnea. Denies chest pain or dizziness. 05/17: Patient says his breathing has improved and he feels better today. He says he can use the BIPAP for 2 hrs but is willing to try to extend it to 3-4 hrs today. 05/18: Patient only used BIPAP for 1.5 hrs last night. Upon encounter, he does say that he breathes and feels better when on BIPAP. He was advised on increa sing his BIPAP use again today. He denies worsening SOB or chest pain. Still awaiting for update on transfer to [facility] in [facility]. 05/19/2018-no acute events in the last 24 hours as per the patient he is using BiPAP 3-4 hours a day. He is comfortably in the chair on oxygen via nasal tom kurt. Denies any problems. Waiting for placement in [facility]. 05/20/2018-no acute events in the last 24 hours. Patient is on oxygen via nasal cannula walking in the room. Denies any complaints. Using BiPAP 4 hours a day. Patient is waiting for placement at [facility]. 05/21/2018 no acute events in the last 24 hours. Patient is complaining of pain in both arms. I am going to put him on Percocet 09/25/2024 every 8 as needed for pain. Patient is on 2 L nasal cannula pulse ox is 96%. He is using BiPAP 4 hours a day. 05/22/2018-no acute events over the last 24 hours. Patient is afebrile. Patient is complaining of dry skin and itching he wants some Benadryl. 05/23/2018 no acute events in the last 24 hours. His BiPAP requirements are decreased. Patient is afebrile. His pulse ox is 99% on 2 L. Notably sitting in the bed communicating okay. 05/24/2018 -no acute events in the last 24 hours. Patient pulse oxes 99% on 2 L. Is comfortably sleeping in his chair. Denies any complaints. 05/25/2018-no acute events in the last 24 hours. Pulse ox is 100% on 2 L. He is comfortable in the chair communicating very well. Denies any complaints. [facility] 05/26/18: He has been more complaint with BIPAP. He denies acute SOB and feels like he is at his baseline. 05/27/18: No acute event overnight. He did complaint of transient chest tightness this morning after he ate a big breakfast (ham and omelet). He says it only lasted for a few seconds. EKG was negative for acute changes. 05/28/18: No acute event. No acute symptoms, no chest pain or SOB. He is at his baseline. 05/29/18: No acute event. Patient denies any acute complaint. Updated by RN and systems planner that patient's house will be condemned due to multiple issues. 05/30/18: No acute issues. Patient is still awaiting placement. 05/31/18:Patient is still awaiting placement. Discussed with Eryn on bedside, patient's farm or ranch animal caretaker who says she is getting her new house this friday and may be able to have patient live with her. 06/01/18: No acute issues. Plan to discharge patient to her farm or ranch animal caretaker's new house later this week with home health. Actuarial Trainee says she is confident she is able to take care of him at her new house. Patient also prefers discussed disposition. 06/02/2018-patient is afebrile no acute events in the last 24 hours patient waiting to go to caretakers home. 06/03/2018 no acute events in last 24 hours. Patient is comfortable in the chair talking to the family members on the phone. Denies any complaints. 06/04/2018-no acute events in the last 24 hrs. afebrile .pulse ox 98% on 2lts. 06/05/2018-no acute events in the last 24 hours. Patient is afebrile. Pulse ox is 99% on 2 L. 06/06/2018-no acute events in the last 24 hours. Patient is afebrile. Comfortably in the chair sleeping. Denies any complaints. 06/07/2018 patient is afebrile and doing well no complaints no acute events in the last 24 hours. 2018 has saw the patient this morning is comfortably in the chair complaining of left hand pain resting pain medications. His pulse ox are stable. Afebrile. Few minutes ago nurse supervisor calibration Spencer called me to notify that patient is complaining of chest pains vital signs are stable pulse ox is normal so I requested him to do the EKG and cardiac enzymes x3 along with nitroglycerin 0.5 mg subcu every 5 minutes as needed for chest pain. 06/09/18: Reassumed care today. No acute issues in the interim. Patient still here due to placement issues. Apparently, his farm or ranch animal caretaker's house was not ready yet. He is at his baseline and denies chest pain or SOB at the moment. 06/13/18: No acute issues. Denies chest pain or SOB. Discussed on bedside with Eryn (farm or ranch animal caretaker) today who says they are still doing repairs for a leakage at her house. Patient has remained stable with no acute issues in the interim and is still waiting for placement. 06/23/18: Reassumed care today. No acute issues. 06/24/18: No acute issues. He denies acute complaints. Still awaiting placement. [facility] 06/25/18: Patient reportedly tripped last night but did not fall on the floor. Otherwise, he denies acute complaints. 2: No acute event overnight. He is asleep upon encounter. When he woke up, he complains of heartburn. He says it is not chest pain but more of a burning sen sation on the chest which he had in the past. He was given a GI cocktail which completely resolved his heartburn. 2: No acute event overnight. Denies chest pain or SOB. No recurrence of heartburn. He does say he continues to have intermittent pain on the left hand joints and right foot. He says he has a history of gouty arthritis. Will add low dose prednisone. 23: No acute event overnight. Re evaluated by pulmonology yesterday and repeat CXR was ordered which showed stable changes, no worsening of pleural effusion. He says his hand and right foot joint pains improved with the prednisone. Denies chest pain or SOB. He says Eryn told him, the house may be ready by Friday (06/30). 06/29: No acute issues. Denies SOB or chest pain. Still awaiting placement. 06/30/2018 no acute events in the last 24 hours. Patient is afebrile. Patient is complaining of left foot pain and hand pain. He has history of gout. Be going to check his uric acid level, started him on allopurinol 100 mg p.o. twice daily and switched tramadol to Percocet every 6 as needed for pain. 07/01/2018 no acute events in the last 24 hours. Patient is afebrile. Patient is complaining of left foot pain and right hand pain yesterday uric acid levels were done uric acid level 7.8 within normal limits. He was started on allopurinol and the patient states is not helping him at all. 07/02/2018-patient is still complaining of gouty arthritis. Uric acid level is 7.8 which was normal. Patient is on prednisone 10 mg p.o. twice daily and also on allopurinol 100 mg p.o. twice daily. She is also receiving Percocets every 6 as needed. Patient was reassured. No other complaints. 07/03/2018 no acute events in the last 24 hours. Patient is afebrile. Waiting for the placement. 07/04/2018-no acute events in the last 24 hours. Afebrile. Patient is comfortably sleeping in the chair. Waiting for the placement. 07/05/2018-no acute events in the last 24 hours. Patient is stable. Waiting for placement. 07/06/2018-no acute events in the last 24 hours. Patient is afebrile. No complaints of any arthritis pain today. Comfortably sitting in the chair. The nurse told me we need to put a PPD order for him for the placement. 07/07/2018-no acute events in last 24 hours. Patient is afebrile. Adult Protective Services came and talked to the patient today. Blood in the bed no complaints. 07/08/2018-no acute events in the last 24 hours. Patient is afebrile. He does not want to be on low potassium diet, explained to him that his potassium is persistently high for the last several days we tried different medications and most of them are not working well and he needs to be on a low potassium diet ,he agreed to be on low potassium diet. Reason For Visit: CHF Physical Exam Vital Signs: Temp Pulse Resp BP Pulse Ox 97.4 F 80 16 122/68 97 07/08/18 08:00 02/13/19 08:00 07/08/18 08:00 07/08/18 08:00 07/08/18 08:00 Intake & Output 07/07/18 07/08/18 07/09/18 06:59 06:59 06:59 Intake Total 844 1294 Output Total 675 1345 Balance 169 -51 Weight 86.6 kg Results Laboratory Results: 07/07/18 08:42 07/07/18 08:42 05/11/18 05/11/18 05/11/18 09:35 09:35 09:35 Creatine Kinase 37 L CK-MB (CK-2) Troponin I 0.071 NT-Pro-B Natriuret Pep 6800 H 05/11/18 05/11/18 05/12/18 12:30 19:00 01:06 Creatine Kinase CK-MB (CK-2) Troponin I 0.067 0.064 0.050 NT-Pro-B Natriuret Pep 05/23/18 05/24/18 05/27/18 10:36 09:38 10:01 Creatine Kinase CK-MB (CK-2) Troponin I 0.060 NT-Pro-B Natriuret Pep 819 889 06/03/18 06/08/18 06/08/18 08:12 13:40 13:40 Creatine Kinase 39 L CK-MB (CK-2) 1.92 Troponin I 0.060 NT-Pro-B Natriuret Pep 1420 H 06/08/18 06/08/18 06/09/18 19:03 19:03 00:59 Creatine Kinase 36 L 34 L CK-MB (CK-2) 1.75 Troponin I 0.058 NT-Pro-B Natriuret Pep 06/09/18 06/09/18 06/09/18 00:59 08:04 08:04 Creatine Kinase 32 L CK-MB (CK-2) 1.58 1.79 Troponin I 0.063 0.064 NT-Pro-B Natriuret Pep 06/09/18 06/09/18 06/09/18 12:52 12:52 19:00 Creatine Kinase 46 L 31 L CK-MB (CK-2) 1.99 Troponin I 0.051 NT-Pro-B Natriuret Pep 06/09/18 06/25/18 07/04/18 19:00 07:35 08:21 Creatine Kinase CK-MB (CK-2) 1.80 Troponin I 0.072 0.054 NT-Pro-B Natriuret Pep 1660 H Impressions: Thoracentesis Ultrasound 05/13/18 10:06 IMPRESSION: SUCCESSFUL THORACENTESIS USING ULTRASOUND GUIDANCE. Chest X-Ray 07/03/18 00:00 IMPRESSION: Cardiomegaly. Small bibasilar effusions. Mild pulmonary vascular congestion. copyright 2010 [employer]- All Rights Reserved Assessment & Plan - Diagnosis (1) Acute and chronic respiratory failure with hypoxia Is this a current diagnosis for this admission?: Yes (2) Acute on chronic systolic (congestive) heart failure Is this a current diagnosis for this admission?: Yes Plan: Combined systolic and diastolic biventricular failure. Continue Lasix 40 mg daily. Cardiology following. Echo shows an EF of 30-35%, grade 2 diastolic dysfunction and dilated left and right ventricular. Patient already has an AICD. Patient is not on UZMA inhibitor hence is not on optimal medical therapy. CHF medication regimen cannot be optimized as patient has had angioedema from captopril before. Both UZMA inhibitors and Entresto will be contraindicated to a history of ACEi-associated angioedema. Discussed with cardio and pulm. Recommendation for BIPAP at home/discharge for his biventricular heart failure and significant pulmonary hypertension. Continue Coreg and Aldactone. 05/16/18: Decreased Lasix to 40 mg IV daily from q12 due to alkalosis. 05/19/2018-patient has history of congestive heart failure. Which is combined systolic diastolic biventricular failure. Patient is on Lasix 40 mg IV twice daily. cardiology on board. EF is 30-35%. Grade 2 diastolic dysfunction and dilated left and right ventricular chambers. Patient has AICD. Patient is not on UZMA inhibitors because of history of angioedema. UZMA inhibitors and Entresto are not contraindicated because of the ACEi associated angioedema. Patient is also on Coreg and Aldactone. And is to discharge him to [facility] on BiPAP. 05/20/2018-has a combined systolic diastolic biventricular failure. EF is 30- 35%. Echocardiogram shows grade 2 diastolic dysfunction and dilated left and right ventricular chambers. Patient has AICD. Patient is not on UZMA inhibitors because of history of angioedema. Stoped Aldactone today because potassium is 5.1. 05/21/2018-patient has history of congestive heart failure combined systolic diastolic biventricular failure with EF of 30-35%. Patient is allergic to UZMA inhibitors gives angioedema. Latest potassium is 5.1. We are going to check his potassium levels today. Yesterday I stopped his spironolactone and we stopped potassium supplementation. 05/22/2018-his latest potassium is 5.0 potassium supplementation was discontinued spironolactone was discontinued, has EF is 30-35%. Patient is not in fluid overload I am going to follow the patient regular basis. 05/23/2018-potassium level is 5.0 stable patient ejection fraction is 30-45%. Patient has combined systolic diastolic biventricular heart failure. He has AICD. And is to continue the present management. 05/24/2018-patient's has a biventricular systolic and diastolic heart failure with EF of 35-40%. Patient has AICD. He is on Lasix 40 IV daily I am going to switch her to 40 mg p.o. daily. 05/25/2018-patient is not in fluid overload chest was clear no pedal edema. He has biventricular systolic/diastolic heart failure with EF of 35-40%. He is on Lasix.Combined systolic and diastolic biventricular failure. Continue Lasix 40 mg daily. Cardiology following. Echo shows an EF of 30-35%, grade 2 diastolic dysfunction and dilated left and right ventricular. Patient already has an AICD. Patient is not on UZMA inhibitor hence is not on optimal medical therapy. CHF medication regimen cannot be optimized as patient has had angioedema from captopril before. Both UZMA inhibitors and Entresto will be contraindicated to a history of ACEi-associated angioedema. Discussed with cardio and pulm. Recommendation for BIPAP at home/discharge for his biventricular heart failure and significant pulmonary hypertension. Continue Coreg. Aldactone was d/raghav due to his potassium trending up. Aldactone resumed. Continue Lasix 40 mg daily. 06/02/2017-patient has combined systolic and diastolic biventricular failure he is on Lasix 40 mg p.o. daily and also on Aldactone. Patient is not in fluid overload. And is to continue the present management. 06/03/2017 patient has history of combined systolic diastolic biventricular failure on Lasix 40 mg p.o. daily and is also on Aldactone potassium levels going back up again it was 5.2 today I am going to stop the Aldactone and and follow the potassium levels. 06/04/2018-pt is not in fluid overload. plan to continue present treatment. 06/05/2018-patient has history of for combined systolic/diastolic biventricular failure on Lasix 40 mg p.o. daily Aldactone was discontinued because of the persistently elevated potassium levels. Potassium level today is 3.7. 06/06/2018-patient has a biventricular heart failure with EF of less than 30% patient is not in fluid overload. Plan is to continue the present management. 06/08/2018-patient has history of heart failure with EF of less than 30% patient is not in fluid overload. He has AICD. 06/07/2018 patient has history of biventricular heart failure with EF of less than 30% patient is not in fluid overload plan is to continue the present management. 06/30/2018-patient has history of combined systolic diastolic biventricular heart failure. Cardiology consult was done echocardiogram shows EF of 30-35% grade 2 diastolic dysfunction and dilated left and right heart ventricules. Patient is presently on Lasix 20 mg p.o. daily. Not in fluid overload. Plan is to check a BNP and labs tomorrow. Latest BNP is 1490. 07/02/2018 patient has history of biventricular heart failure. Is also systolic and diastolic heart failure echocardiogram with EF of 30-35% and grade 2 kay tolic dysfunction with a dilated left and right ventricles. Patient is presently on Lasix 20 mg p.o. daily not in fluid overload. His creatinine is slowly trending up. I am going to hold his Lasix for now. 07/03/2018-patient has history of biventricular failure. EF is 30-35%. In association with a diastolic dysfunction. Patient is on Lasix 20 mg daily. Plan is to increase the Lasix to 40 mg daily because of the persistently elevated potassium levels. 07/04/2018 patient has a history of biventricular heart failure. EF is 30-35%. No signs of fluid overload. Follow-up chest x-ray done yesterday shows no vascular congestion small bilateral pleural effusions. Patient is presently on Lasix 40 mg p.o. daily. 07/05/2018-patient has a biventricular heart failure. EF of 30-35%. No signs of fluid overload. Chest x-ray shows small stable bilateral pleural effusions. Presently on Lasix 40 mg p.o. daily. Plan is to continue the present management. 07/07/2018-patient has biventricular heart failure with a pacemaker. EF is 30- 35%. Chest x-ray shows stable small bilateral effusions. Presently on Lasix 40 mg p.o. daily. Plan is to continue the present management. 07/08/2018-patient has history of biventricular heart failure with a pacemaker, EF is 30-35%. Status post thoracentesis and removal of 750 mL of fluid on 05/13/[id number] chest x-ray shows small bilateral pleural effusions stable patient is not in fluid overload, presently on Lasix 40 mg daily plan is to continue the present management. (3) Pleural effusion Is this a current diagnosis for this admission?: Yes Plan: 05/19/2018-patient came in with a right-sided pleural effusion status post thoracentesis on 05/13/2018 with removal of 750 cc of fluid. Fluid analysis consistent with transudate. Which is likely secondary to CHF. Negative for infection. 05/20/2018-patient came in with right pleural effusion status post thoracentesis on 05/13/2018. The cultures are negative. 05/21/2018 status post thoracentesis of right pleural effusion 750 cc of fluid was removed. cultures Negative. 05/23/2018 during this hospital stay he had a right-sided thoracentesis. And 750 cc of fluid was removed. I am going to redo the chest x-ray today. 05/25/2018-status post right-sided thoracentesis. On examination decreased air entry at the right base. Probably persistent pleural effusion. 06/12/2017 status post right-sided thoracentesis with 750 cc of fluid removal on 05/13/2018. Pleural fluid analysis is consistent with transudate to effusion most likely secondary to patient's congestive heart failure. 06/30/2018 latest chest x-ray done on 06/27/2018 shows moderate right pleural effusion. Seen by citrus fruit colorer on 06/27/2018. Plan is to continue the present management. He had a right-sided thoracentesis was done on 05/13/2019 with removal of 750 cc of fluid. 07/01/2018 on 05/13/2019 750 cc of fluid was removed after thoracentesis. Follow- up chest x-ray shows stable right pleural effusion. Patient is not in respiratory distress. Plan is to continue the present management. 07/02/2018 follow-up chest x-rays indicates stable pleural effusions. Patient is not in respiratory distress. Plan is to continue the present management. 07/03/2018-thoracentesis was done on 05/13/2019 with removal of 750 mL of fluid follow-up x-ray shows stable pleural effusions am going to repeat the chest x- ray today again. 07/04/2018-on 05/13/2019 thoracentesis was done so for 50 mL of fluid was removed. It is a transudate. Follow-up chest x-rays shows stable pleural effusions. 07/06/2018 thoracentesis was done on 05/13/2018 750 mL of fluid was removed it most likely secondary to chronic CHF. Follow-up chest x-ray shows stable pleural effusions. 07/[id number] chest x-ray shows stable small pleural effusions. 07/08/2018 status post thoracentesis on 05/13/2018 with removal of 750 mL of pleural fluid fluid analysis negative for malignancy. Most likely secondary to CHF. Follow-up x-ray shows stable pleural effusions. (4) CAD (coronary artery disease) Is this a current diagnosis for this admission?: Yes (5) Hyperkalemia Is this a current diagnosis for this admission?: Yes Plan: Potassium level on 06/28/2018 is 5.4. He was off the Aldactone. Plan is to check a CMP today. If the potassium is still high I am going to put him on Kayexalate. 07/01/2018 patient potassium level is 5.3 yesterday. He is not on any potassium sparing diuretics. Started on Kayexalate 15 mL twice a day. 07/02/2018 latest potassium is 5.2 he was started on Kayexalate and daily basis. Plan is to recheck the labs tomorrow. 07/03/2018 latest potassium level is 5.7. Going to put him on Kayexalate 30 mg p.o. every 6 hours, started on Veltassa 8.4 gm daily. Plan to recheck the labs tomorrow. 07/04/2018-latest potassium is 5.6 yesterday it was 5.7 started on Veltassa and also on Kayexalate. But the nurse told me Kayexalate is back dated on we decided to continue Victoza. Lasix was increased to 40 mg daily still potassium is elevated with 5.6 and he is also on MiraLAX for constipation. We are going to check his potassium levels again tomorrow patient is asymptomatic. I discussed the plan with the nurse Petra she said patient is not compliant with Kayexalate and MiraLAX will try to convince him to take those medications to bring the potassium levels down. 07/05/2018-patient's potassium is persistently high above 5.4 today better compared to yesterday. Patient said he has a good bowel movement yesterday. Patient is on Veltassa, is also getting as needed Kayexalate. Plan is to recheck his labs tomorrow. 07/06/2018-potassium is persistently high 5.5 today. veltassa was increased to 25.6 g/day. Plan to repeat the labs tomorrow patient is asymptomatic. 07/07/2018-patient does have the persistently elevated potassium levels it is 5.2 today he was started on Veltassa 25.6 g daily and he was also on MiraLAX but he is refusing to take the MiraLAX. going to continue to check his chemistry panel and daily basis. 07/08/2018-patient have a persistently elevated potassium levels able 5 for the last several days we placed him on MiraLAX but he is refusing Veltassa was started, patient was placed on low potassium diet but he does not want to eat low potassium diet. Plan to repeat the potassium levels tomorrow. (6) DEANNA (acute kidney injury) Is this a current diagnosis for this admission?: Yes Plan: 06/30/2018-patient was admitted with acute kidney injury which was resolved. Creatinine latest one is 1.28 at baseline. Presently on Lasix 20 mg p.o. daily. Plan is to check creatinine panel tomorrow. 07/01/2018-patient was admitted with elevated creatinine levels 1.45 present creatinine is 1.38 acute kidney injury is resolved. 07/02/2018 latest creatinine is 1.5-20 Slowly. Plan to stop allopurinol and Lasix. To recheck his renal panel tomorrow. Worsening kidney function may be secondary to medications/prerenal causes. 07/03/2018-patient's latest creatinine is 1.4 it is fluctuating between 1.25-1.4. Plan is to check the daily labs. 07/04/2018-latest creatinine is 1.3 stable his baseline creatinine is around 1.28. Presently on Lasix 40 mg p.o. daily. Plan is to continue the present management. 07/05/2018-latest creatinine was 1.41 it is fluctuating between 1.3-1.4. His acute kidney injury is resolved. 07/06/2018-patient latest creatinine is 1.38-stable. 07/07/2018 patient's creatinine today is 1.31 stable. Acute kidney injury is resolved. (7) Gouty arthritis Is this a current diagnosis for this admission?: Yes - Time Time Spent with patient: 15-24 minutes Medications reviewed and adjusted accordingly: Yes Anticipated discharge: Home
[2018-07-08] MEDS: ROPINIROLE HCL 0.25 MG TABLET PO SCH (21:24)
[2018-07-08] MEDS: OXYCODONE-ACETAMINOPHEN 5-325 MG TABLET PO PRN (21:24)
[2018-07-08] MEDS: PATIROMER 8.4 GM SUSP PACKET PO SCH ×2 (21:25→22:45)
[2018-07-09] MEDS ORDERED: ALPRAZOLAM 0.5 MG TABLET PO ONE (02:40)
[2018-07-09] MEDS ORDERED: HALOPERIDOL 5 MG TABLET PO ONE (02:45)
[2018-07-09] MEDS: LANSOPRAZOLE 30 MG TAB.RAP.DR PO SCH ×2 (05:19→19:25)
[2018-07-09 08:48] LABS: ABSOLUTE BASOPHILS # (AUTO) 0.1 10^3/uL (0.0-0.2); ABSOLUTE EOSINOPHILS # (AUTO) 0.1 10^3/uL (0.0-0.6); EOSINOPHILS % (AUTO) 0.8 % (0-6); HEMOGLOBIN 11.6 g/dL (13.5-17.0); TOTAL CELLS COUNTED % (AUTO) 100 %
[2018-07-09 08:58] LABS: ABSOLUTE LYMPHOCYTES (AUTO) 1.2 10^3/uL (0.5-4.7); ABSOLUTE MONOCYTES (AUTO) 1.3 10^3/uL (0.1-1.4); ABSOLUTE NEUT (AUTO) 5.3 10^3/uL (1.7-8.2); HEMATOCRIT 35.5 % (37.9-51.0); LYMPHOCYTES % (AUTO) 15.6 % (13-45); MEAN CORPUSCULAR HEMOGLOBIN 27.4 pg (27.0-33.4); MEAN CORPUSCULAR HGB CONC 32.7 g/dL (32.0-36.0); MEAN CORPUSCULAR VOLUME 84 fl (80-97); MONOCYTES % (AUTO) 15.9 % (3-13); PLATELET COUNT 236 10^3/uL (150-450); RED BLOOD COUNT 4.23 10^6/uL (4.35-5.55); RED CELL DISTRIBUTION WIDTH 15.3 % (11.5-14.0); SEGMENTED NEUTROPHILS % (AUTO) 66.7 % (42-78); WHITE BLOOD COUNT 7.9 10^3/uL (4.0-10.5)
[2018-07-09 09:19] LABS: ALANINE AMINOTRANSFERASE 42 U/L (21-72); ALBUMIN 3.9 g/dL (3.5-5.0); ALKALINE PHOSPHATASE 78 U/L (38-126); ASPARTATE AMINO TRANSFERASE 28 U/L (17-59); BILIRUBIN,DIRECT 0.1 mg/dL (0.0-0.4); BILIRUBIN,TOTAL 0.3 mg/dL (0.2-1.3); BLOOD UREA NITROGEN 41 mg/dL (7-20); CHLORIDE 96 mmol/L (98-107); GLUCOSE 99 mg/dL (75-110); POTASSIUM 4.7 mmol/L (3.6-5.0); SODIUM 141.9 mmol/L (137-145); TOTAL PROTEIN 6.7 g/dL (6.3-8.2)
[2018-07-09 09:30] LABS: ANION GAP 7 (5-19)
[2018-07-09 09:32] LABS: CARBON DIOXIDE 39 mmol/L (22-30)
[2018-07-09] MEDS: FUROSEMIDE 40 MG TABLET PO SCH (11:38)
[2018-07-09] MEDS: GABAPENTIN 300 MG CAPSULE PO SCH ×2 (11:38→21:11)
[2018-07-09] MEDS: PREDNISONE 10 MG TABLET PO SCH ×2 (11:38→19:25)
[2018-07-09] MEDS: ASPIRIN 81 MG TABLET, CHEWABLE PO SCH (11:38)
[2018-07-09] MEDS: CARVEDILOL 3.125 MG TABLET PO SCH ×2 (11:38→21:11)
[2018-07-09] MEDS: DIGOXIN 0.125 MG TABLET PO SCH (11:38)
[2018-07-09] MEDS: ACETAMINOPHEN 325 MG TABLET PO SCH ×4 (11:39→21:11)
[2018-07-09] MEDS: DOCUSATE SODIUM 100 MG CAPSULE PO SCH ×2 (11:39→21:11)
[2018-07-09] MEDS: CYCLOSPORINE 0.05% OPH EMULSIO 0.4 ML DROPERETTE OU SCH (11:46)
[2018-07-09] MEDS: POLYETHYLENE GLYCOL 3350 POWDER 17 GM/1 PACKET PO SCH ×2 (11:46→21:10)
--- NOTE | 2018-07-09 17:10 | PDOC PROGRESS REPORT ---
Addendum entered and electronically signed by MARTIN GOODRICH PA-C 07/09/18 17:16: Provider Note Provider Note: -Constipation: Docusate increased to 100 mg 3 times daily. MiraLAX increased to 17 g twice daily. Monitor closely. -Agitation: Appears to have had an episode of agitation overnight that was resolved with 5 mg of Haldol and 0.25 mrem of Xanax. Nocturnal is also ordered 0.25 milligrams of Xanax as needed for agitation. Monitoring. Original Note: Subjective Progress Note for:: 07/09/18 Subjective:: HPI: This is a 62-year-old male with a past medical history of CAD, prior CABG, COPD, diet-controlled DM, chronic systolic heart failure from ischemic cardiomyopathy with prior AICD placement, chronic respiratory failure on home O2, history of CVA with residual partial expressive aphasia who initially presented with incr easing shortness of breath and leg swelling. Patient was admitted for CHF exacerbation. 05/12: Patient has partial expressive aphasia (has some residual slurring and pauses) but is coherent and is able to converse with provider. He says his SOB is at baseline but he becomes short of breath when lying supine. He has been having persistent orthopnea. 05/13: Discussed in length again this morning with caregiver (Nuria) and patient. We discussed the need for thoracentesis again this morning including the indication due to his persistent orthopnea and significant bilateral pleural effusion. Also discussed the small risk of pneumothorax. Patient did agree undergo thoracentesis as he has been having patient orthopnea. Patient is oriented to person, place and situation. Also discussed with shutdown planner on bedside about possible option to be transferred to a [facility] hospital in [place] as patient is a his history of placement and disposition. He does not want to be transferred at this time and would prefer to stay here. 05/14: Patient does appear to have into capacity to make his own medical decisions. Patient was also evaluated by psych who deemed the same. Discussed in length again today about plan and disposition. Patient says he does not want to go to a penitentiary or rehab. He also does not want to talk about his CODE STATUS and says that he will "sort it out" later. Offered palliative care consult and he is receptive to it but not hospice. He says his breathing has improved after the thoracentesis. Investigations Director recommended BiPAP at home. Patient is resistant on using BiPAP at home but agrees to try it here while inpatient and see if he tolerates it. 05/15: Upon encounter this morning, patient was sleeping on the recliner. Patient says that his house is not fixed yet. He says he does not want to go to any of the surrounding SNF/rehab facilities at this time but is agreeable to being transferred to the [facility] in [place]. Convinced on trying the BiPAP and he says he will try wearing it. 05/16: No acute event overnight. Patient has complied with BIPAP. He says his breathing has slightly improved but still has orthopnea. Denies chest pain or dizziness. 05/17: Patient says his breathing has improved and he feels better today. He says he can use the BIPAP for 2 hrs but is willing to try to extend it to 3-4 hrs today. 05/18: Patient only used BIPAP for 1.5 hrs last night. Upon encounter, he does say that he breathes and feels better when on BIPAP. He was advised on increasing his BIPAP use again today. He denies worsening SOB or chest pain. Still awaiting for update on transfer to [facility] in [facility]. 05/19/2018-no acute events in the last 24 hours as per the patient he is using BiPAP 3-4 hours a day. He is comfortably in the chair on oxygen via nasal cannula. Denies any problems. Waiting for placement in [facility]. 05/20/2018-no acute events in the last 24 hours. Patient is on oxygen via nasal cannula walking in the room. Denies any complaints. Using BiPAP 4 hours a day. Patient is waiting for placement at [facility]. 05/21/2018 no acute events in the last 24 hours. Patient is complaining of pain in both arms. I am going to put him on Percocet 09/25/2024 every 8 as needed for pain. Patient is on 2 L nasal cannula pulse ox is 96%. He is using BiPAP 4 hours a day. 05/22/2018-no acute events over the last 24 hours. Patient is afebrile. Patient is complaining of dry skin and itching he wants some Benadryl. 05/23/2018 no acute events in the last 24 hours. His BiPAP requirements are decreased. Patient is afebrile. His pulse ox is 99% on 2 L. Notably sitting i n the bed communicating okay. 05/24/2018 -no acute events in the last 24 hours. Patient pulse oxes 99% on 2 L. Is comfortably sleeping in his chair. Denies any complaints. 05/25/2018-no acute events in the last 24 hours. Pulse ox is 100% on 2 L. He is comfortable in the chair communicating very well. Denies any complaints. [facility] 05/26/18: He has been more complaint with BIPAP. He denies acute SOB and feels like he is at his baseline. 05/27/18: No acute event overnight. He did complaint of transient chest tightness this morning after he ate a big breakfast (ham and omelet). He says it only lasted for a few seconds. EKG was negative for acute changes. 05/28/18: No acute event. No acute symptoms, no chest pain or SOB. He is at his baseline. 05/29/18: No acute event. Patient denies any acute complaint. Updated by RN and shutdown planner that patient's house will be condemned due to multiple issues. 05/30/18: No acute issues. Patient is still awaiting placement. 05/31/18:Patient is still awaiting placement. Discussed with Eryn on bedside, patient's mess attendant who says she is getting her new house this friday and may be able to have patient live with her. 06/01/18: No acute issues. Plan to discharge patient to her mess attendant's new house later this week with home health. Relief Worker says she is confident she is able to take care of him at her new house. Patient also prefers discussed disposition. 06/02/2018-patient is afebrile no acute events in the last 24 hours patient waiting to go to caretakers home. 06/03/2018 no acute events in last 24 hours. Patient is comfortable in the chair talking to the family members on the phone. Denies any complaints. 06/04/2018-no acute events in the last 24 hrs. afebrile .pulse ox 98% on 2lts. 06/05/2018-no acute events in the last 24 hours. Patient is afebrile. Pulse ox is 99% on 2 L. 06/06/2018-no acute events in the last 24 hours. Patient is afebrile. Comfortably in the chair sleeping. Denies any complaints. 06/07/2018 patient is afebrile and doing well no complaints no acute events in the last 24 hours. 2018 has saw the patient this morning is comfortably in the chair complaining of left hand pain resting pain medications. His pulse ox are stable. Afebrile. Few minutes ago nurse director of consulting services Spencer called me to notify that patient is complaining of chest pains vital signs are stable pulse ox is normal so I requested him to do the EKG and cardiac enzymes x3 along with nitroglycerin 0.5 mg subcu every 5 minutes as needed for chest pain. 06/09/18: Reassumed care today. No acute issues in the interim. Patient still here due to placement issues. Apparently, his mess attendant's house was not ready yet. He is at his baseline and denies chest pain or SOB at the moment. 06/13/18: No acute issues. Denies chest pain or SOB. Discussed on bedside with Eryn (mess attendant) today who says they are still doing repairs for a leakage at her house. 06/23/18: Reassumed care today. No acute issues. 06/24/18: No acute issues. He denies acute complaints. Still awaiting placement. [facility]. 06/25/18: Patient reportedly tripped last night but did not fall on the floor. Otherwise, he denies acute complaints. 06/26/18: No acute event overnight. He is asleep upon encounter. When he woke up, he complains of heartburn. He says it is not chest pain but more of a burning sensation on the chest which he had in the past. He was given a GI cocktail which completely resolved his heartburn. 06/27/18: No acute event overnight. Denies chest pain or SOB. No recurrence of heartburn. He does say he continues to have intermittent pain on the left hand joints and right foot. He says he has a history of gouty arthritis. Will add low dose prednisone. 06/28/18: No acute event overnight. Re evaluated by pulmonology yesterday and repe at CXR was ordered which showed stable changes, no worsening of pleural effusion. He says his hand and right foot joint pains improved with the prednisone. Denies chest pain or SOB. He says Eryn told him, the house may be ready by Friday (06/30). 06/29/18: No acute issues. Denies SOB or chest pain. Still awaiting placement. 06/30/2018 no acute events in the last 24 hours. Patient is afebrile. Patient is complaining of left foot pain and hand pain. He has history of gout. Be going to check his uric acid level, started him on allopurinol 100 mg p.o. twice daily and switched tramadol to Percocet every 6 as needed for pain. 07/01/2018 no acute events in the last 24 hours. Patient is afebrile. Patient is complaining of left foot pain and right hand pain yesterday uric acid levels were done uric acid level 7.8 within normal limits. He was started on allopurinol and the patient states is not helping him at all. 07/02/2018-patient is still complaining of gouty arthritis. Uric acid level is 7.8 which was normal. Patient is on prednisone 10 mg p.o. twice daily and also on allopurinol 100 mg p.o. twice daily. She is also receiving Percocets every 6 as needed. Patient was reassured. No other complaints. 07/03/2018 no acute events in the last 24 hours. Patient is afebrile. Waiting f or the placement. 07/04/2018-no acute events in the last 24 hours. Afebrile. Patient is comfortably sleeping in the chair. Waiting for the placement. 07/05/2018-no acute events in the last 24 hours. Patient is stable. Waiting for placement. 07/06/2018-no acute events in the last 24 hours. Patient is afebrile. No complaints of any arthritis pain today. Comfortably sitting in the chair. The nurse told me we need to put a PPD order for him for the placement. 07/07/2018-no acute events in last 24 hours. Patient is afebrile. Adult Protective Services came and talked to the patient today. Blood in the bed no complaints. 07/08/2018-no acute events in the last 24 hours. Patient is afebrile. He does not want to be on low potassium diet, explained to him that his potassium is persistently high for the last several days we tried different medications and most of them are not working well and he needs to be on a low potassium diet ,he agreed to be on low potassium diet. 07/09/2018: Patient brings up low potassium diet again today. He seems agreeable to continue. Potassium within normal limits. He does report mild constipation. Abdomen remains soft and nontender. No issues in the last 24 hours reported by nursing. No concerns reported. Case management continues to work on discharge plans. We will monitor narcotic use and constipation. Reason For Visit: CHF Physical Exam Vital Signs: Temp Pulse Resp BP Pulse Ox 98.1 F 95 17 126/63 H 98 07/09/18 00:00 07/09/18 00:00 07/09/18 00:00 07/09/18 00:00 07/09/18 08:00 Intake & Output 07/08/18 07/09/18 07/10/18 06:59 06:59 06:59 Intake Total 1294 1696 Output Total 1345 650 Balance -51 1046 Weight 86.6 kg 86.6 kg General appearance: PRESENT: no acute distress, obese, other - Pleasant, somewhat childlike Head exam: PRESENT: atraumatic, normocephalic Eye exam: PRESENT: conjunctiva pink, EOMI, PERRLA. ABSENT: scleral icterus Ear exam: PRESENT: normal external ear exam Respiratory exam: PRESENT: other - Difficult to auscultate, no appreciable wheeze, rhonchi, Rales. Cardiovascular exam: PRESENT: RRR, +S1, +S2 GI/Abdominal exam: PRESENT: other - Nontender, bowel sounds present, mildly distended (appears chronic in nature) Extremities exam: PRESENT: other - Bilateral lower extremities chronic skin changes mild in nature, minimal bilateral edema. Neurological exam: PRESENT: alert, awake, oriented to person, oriented to place, oriented to time, oriented to situation, CN II-XII grossly intact. ABSENT: motor sensory deficit Psychiatric exam: PRESENT: appropriate affect, normal mood. ABSENT: homicidal ideation, suicidal ideation Results Laboratory Results: 07/09/18 08:21 07/09/18 08:21 07/09/18 07/09/18 08:21 08:21 WBC 7.9 RBC 4.23 L Hgb 11.6 L Hct 35.5 L MCV 84 MCH 27.4 MCHC 32.7 RDW 15.3 H Plt Count 236 Seg Neutrophils % 66.7 Lymphocytes % 15.6 Monocytes % 15.9 H Eosinophils % 0.8 Basophils % 1.0 Absolute Neutrophils 5.3 Absolute Lymphocytes 1.2 Absolute Monocytes 1.3 Absolute Eosinophils 0.1 Absolute Basophils 0.1 Sodium 141.9 Potassium 4.7 Chloride 96 L Carbon Dioxide 39 H Anion Gap 7 BUN 41 H Creatinine 1.39 H Est GFR ( Amer) > 60 Est GFR (Non-Af Amer) 51 L Glucose 99 Calcium 9.0 Magnesium 1.9 Total Bilirubin 0.3 AST 28 ALT 42 Alkaline Phosphatase 78 Total Protein 6.7 Albumin 3.9 05/11/18 05/11/18 05/11/18 09:35 09:35 09:35 Creatine Kinase 37 L CK-MB (CK-2) Troponin I 0.071 NT-Pro-B Natriuret Pep 6800 H 05/11/18 05/11/18 05/12/18 12:30 19:00 01:06 Creatine Kinase CK-MB (CK-2) Troponin I 0.067 0.064 0.050 NT-Pro-B Natriuret Pep 05/23/18 05/24/18 05/27/18 10:36 09:38 10:01 Creatine Kinase CK-MB (CK-2) Troponin I 0.060 NT-Pro-B Natriuret Pep 819 889 06/03/18 06/08/18 06/08/18 08:12 13:40 13:40 Creatine Kinase 39 L CK-MB (CK-2) 1.92 Troponin I 0.060 NT-Pro-B Natriuret Pep 1420 H 06/08/18 06/08/18 06/09/18 19:03 19:03 00:59 Creatine Kinase 36 L 34 L CK-MB (CK-2) 1.75 Troponin I 0.058 NT-Pro-B Natriuret Pep 06/09/18 06/09/18 06/09/18 00:59 08:04 08:04 Creatine Kinase 32 L CK-MB (CK-2) 1.58 1.79 Troponin I 0.063 0.064 NT-Pro-B Natriuret Pep 06/09/18 06/09/18 06/09/18 12:52 12:52 19:00 Creatine Kinase 46 L 31 L CK-MB (CK-2) 1.99 Troponin I 0.051 NT-Pro-B Natriuret Pep 06/09/18 06/25/18 07/04/18 19:00 07:35 08:21 Creatine Kinase CK-MB (CK-2) 1.80 Troponin I 0.072 0.054 NT-Pro-B Natriuret Pep 1660 H Impressions: Thoracentesis Ultrasound 05/13/18 10:06 IMPRESSION: SUCCESSFUL THORACENTESIS USING ULTRASOUND GUIDANCE. Chest X-Ray 07/03/18 00:00 IMPRESSION: Cardiomegaly. Small bibasilar effusions. Mild pulmonary vascular congestion. copyright 2010 [employer]- All Rights Reserved Assessment & Plan - Diagnosis (1) DEANNA (acute kidney injury) Is this a current diagnosis for this admission?: Yes (2) Acute and chronic respiratory failure with hypoxia Is this a current diagnosis for this admission?: Yes (3) Acute on chronic systolic (congestive) heart failure Is this a current diagnosis for this admission?: Yes (4) Gouty arthritis Is this a current diagnosis for this admission?: Yes (5) Hyperkalemia Is this a current diagnosis for this admission?: Yes - Time Time Spent with patient: Less than 15 minutes Medications reviewed and adjusted accordingly: Yes - Inpatient Certification Based on my medical assessment, after consideration of the patient's comorbidities, presenting symptoms, or acuity I expect that the services needed warrant INPATIENT care.: Yes I certify that my determination is in accordance with my understanding of Medicare's requirements for reasonable and necessary INPATIENT services [42 CFR 412.3e].: Yes - Plan Summary Plan Summary: (1) Acute and chronic respiratory failure with hypoxia Is this a current diagnosis for this admission?: Yes 07/09/2018: Currently on nasal cannula O2. Utilizing 2.5 L. Reports using 2 L at home. Monitoring. (2) Acute on chronic systolic (congestive) heart failure Is this a current diagnosis for this admission?: Yes Plan: 05/12/2018: Combined systolic and diastolic biventricular failure. Continue Lasix 40 mg daily. Cardiology following. Echo shows an EF of 30-35%, grade 2 diastolic dysfunction and dilated left and right ventricular. Patient already has an AICD. 05/13/2018: Patient is not on UZMA inhibitor hence is not on optimal medical therapy. CHF medication regimen cannot be optimized as patient has had angioedema from captopril before. Both UZMA inhibitors and Entresto will be contraindicated to a history of ACEi-associated angioedema. Discussed with cardio and pulm. Recommendation for BIPAP at home/discharge for his biventricular heart failure and significant pulmonary hypertension. 05/14/18:Continue Coreg and Aldactone. 05/16/18: Decreased Lasix to 40 mg IV daily from q12 due to alkalosis. 05/19/2018-patient has history of congestive heart failure. Which is combined systolic diastolic biventricular failure. Patient is on Lasix 40 mg IV twice daily. cardiology on board. EF is 30-35%. Grade 2 diastolic dysfunction and dilated left and right ventricular chambers. Patient has AICD. Patient is not on UZMA inhibitors because of history of angioedema. UZMA inhibitors and Entresto are not contraindicated because of the ACEi associated angioedema. Patient is also on Coreg and Aldactone. [facility] 05/20/2018-has a combined systolic diastolic biventricular failure. EF is 30- 35%. Echocardiogram shows grade 2 diastolic dysfunction and dilated left and right ventricular chambers. Patient has AICD. Patient is not on UZMA inhibitors because of history of angioedema. Stoped Aldactone today because potassium is 5.1. 05/21/2018-patient has history of congestive heart failure combined systolic diastolic biventricular failure with EF of 30-35%. Patient is allergic to UZMA inhibitors gives angioedema. Latest potassium is 5.1. We are going to check his potassium levels today. Yesterday I stopped his spironolactone and we stopped potassium supplementation. 05/22/2018-his latest potassium is 5.0 potassium supplementation was discontinued spironolactone was discontinued, has EF is 30-35%. Patient is not in fluid overload I am going to follow the patient regular basis. 05/23/2018-potassium level is 5.0 stable patient ejection fraction is 30-45%. Patient has combined systolic diastolic biventricular heart failure. He has AICD. And is to continue the present management. 05/24/2018-patient's has a biventricular systolic and diastolic heart failure with EF of 35-40%. Patient has AICD. He is on Lasix 40 IV daily I am going to switch her to 40 mg p.o. daily. 05/25/2018-patient is not in fluid overload chest was clear no pedal edema. He has biventricular systolic/diastolic heart failure with EF of 35-40%. He is on Lasix.Combined systolic and diastolic biventricular failure. Continue Lasix 40 mg daily. Cardiology following. Echo shows an EF of 30-35%, grade 2 diastolic dysfunction and dilated left and right ventricular. Patient already has an AICD. - 06/01/18: Patient is not on UZMA inhibitor hence is not on optimal medical therapy. CHF medication regimen cannot be optimized as patient has had angioedema from captopril before. Both UZMA inhibitors and Entresto will be contraindicated to a history of ACEi-associated angioedema. Discussed with cardio and pulm. Recommendation for BIPAP at home/discharge for his biventricular heart failure and significant pulmonary hypertension.Continue Coreg. Aldactone was d/raghav due to his potassium trending up.Aldactone resumed. Continue Lasix 40 mg daily. 06/02/2017-patient has combined systolic and diastolic biventricular failure he is on Lasix 40 mg p.o. daily and also on Aldactone. Patient is not in fluid overload. And is to continue the present management. 06/03/2017 patient has history of combined systolic diastolic biventricular failure on Lasix 40 mg p.o. daily and is also on Aldactone potassium levels goi ng back up again it was 5.2 today I am going to stop the Aldactone and and follow the potassium levels. 06/04/2018-pt is not in fluid overload. plan to continue present treatment. With this 06/05/2018-patient has history of for combined systolic/diastolic biventricular failure on Lasix 40 mg p.o. daily Aldactone was discontinued because of the persistently elevated potassium levels. Potassium level today is 3.7. 06/06/2018-patient has a biventricular heart failure with EF of less than 30% patient is not in fluid overload. Plan is to continue the present management. 06/08/2018-patient has history of heart failure with EF of less than 30% patient is not in fluid overload. He has AICD. 06/07/2018 patient has history of biventricular heart failure with EF of less than 30% patient is not in fluid overload plan is to continue the present management. 06/30/2018-patient has history of combined systolic diastolic biventricular heart failure. Cardiology consult was done echocardiogram shows EF of 30-35% grade 2 diastolic dysfunction and dilated left and right heart ventricules. Patient is presently on Lasix 20 mg p.o. daily. Not in fluid overload. Plan is to check a BNP and labs tomorrow. Latest BNP is 1490. 07/02/2018 patient has history of biventricular heart failure. Is also systolic and diastolic heart failure echocardiogram with EF of 30-35% and grade 2 diastolic dysfunction with a dilated left and right ventricles. Patient is presently on Lasix 20 mg p.o. daily not in fluid overload. His creatinine is slowly trending up. I am going to hold his Lasix for now. 07/03/2018-patient has history of biventricular failure. EF is 30-35%. In association with a diastolic dysfunction. Patient is on Lasix 20 mg daily. Plan is to increase the Lasix to 40 mg daily because of the persistently elevated potassium levels. 07/04/2018 patient has a history of biventricular heart failure. EF is 30-35%. No signs of fluid overload. Follow-up chest x-ray done yesterday shows no va scular congestion small bilateral pleural effusions. Patient is presently on Lasix 40 mg p.o. daily. 07/05/2018-patient has a biventricular heart failure. EF of 30-35%. No signs of fluid overload. Chest x-ray shows small stable bilateral pleural effusions. Presently on Lasix 40 mg p.o. daily. Plan is to continue the present management. 07/07/2018-patient has biventricular heart failure with a pacemaker. EF is 30- 35%. Chest x-ray shows stable small bilateral effusions. Presently on Lasix 40 mg p.o. daily. Plan is to continue the present management. 07/08/2018-patient has history of biventricular heart failure with a pacemaker, EF is 30-35%. Status post thoracentesis and removal of 750 mL of fluid on 05/13/[id number]-to chest x-ray shows small bilateral pleural effusions stable patient is not in fluid overload, presently on Lasix 40 mg daily plan is to continue the present management. 07/09/2018: Last ejection fraction 30-35%. Appears to be stable in this regard on po Lasix 40 mg daily. Monitoring. (3) Pleural effusion Is this a current diagnosis for this admission?: Yes Plan: 05/19/2018-patient came in with a right-sided pleural effusion status post thoracentesis on 05/13/2018 with removal of 750 cc of fluid. Fluid analysis consistent with transudate. Which is likely secondary to CHF. Negative for infection. 05/20/2018-patient came in with right pleural effusion status post thoracentesis on 05/13/2018. The cultures are negative. Is a nurse editorial project manager getting discharge orders and bites and 05/21/2018 status post thoracentesis of right pleural effusion 750 cc of fluid was removed. cultures Negative. 05/23/2018 during this hospital stay he had a right-sided thoracentesis. And 750 cc of fluid was removed. I am going to redo the chest x-ray today. 05/25/2018-status post right-sided thoracentesis. On examination decreased air entry at the right base. Probably persistent pleural effusion. 06/12/2017 status post right-sided thoracentesis with 750 cc of fluid removal on 05/13/2018. Pleural fluid analysis is consistent with transudate to effusion most likely secondary to patient's congestive heart failure. 06/30/2018 latest chest x-ray done on 06/27/2018 shows moderate right pleural effusion. Seen by public works inspector on 06/27/2018. Plan is to continue the present management. He had a right-sided thoracentesis was done on 05/13/2019 with removal of 750 cc of fluid. 07/01/2018 on 05/13/2019 750 cc of fluid was removed after thoracentesis. Follow- up chest x-ray shows stable right pleural effusion. Patient is not in respiratory distress. Plan is to continue the present management. 07/02/2018 follow-up chest x-rays indicates stable pleural effusions. Patient is not in respiratory distress. Plan is to continue the present management. 07/03/2018-thoracentesis was done on 05/13/2019 with removal of 750 mL of fluid follow-up x-ray shows stable pleural effusions am going to repeat the chest x- ray today again. 07/04/2018-on 05/13/2019 thoracentesis was done so for 50 mL of fluid was removed. It is a transudate. Follow-up chest x-rays shows stable pleural effusions. 07/06/2018 thoracentesis was done on 05/13/2018 750 mL of fluid was removed it most likely secondary to chronic CHF. Follow-up chest x-ray shows stable pleural effusions. [id number] chest x-ray shows stable small pleural effusions. 07/08/2018 status post thoracentesis on 05/13/2018 with removal of 750 mL of pleural fluid fluid analysis negative for malignancy. Most likely secondary to CHF. Follow-up x-ray shows stable pleural effusions. 07/09/2018: Remained stable with no acute issues. CHF in origin. (4) CAD (coronary artery disease) Is this a current diagnosis for this admission?: Yes -07/09/18: no current issues (5) Hyperkalemia Is this a current diagnosis for this admission?: Yes Plan: 06/28/2018 is 5.4. He was off the Aldactone. Plan is to check a CMP today. If the potassium is still high I am going to put him on Kayexalate. 07/01/2018 patient potassium level is 5.3 yesterday. He is not on any potassium sparing diuretics. Started on Kayexalate 15 mL twice a day. 07/02/2018 latest potassium is 5.2 he was started on Kayexalate and daily basis. Plan is to recheck the labs tomorrow. 07/03/2018 latest potassium level is 5.7. Going to put him on Kayexalate 30 mg p.o. every 6 hours, started on Veltassa 8.4 gm daily. Plan to recheck the labs tomorrow. 07/04/2018-latest potassium is 5.6 yesterday it was 5.7 started on Veltassa and also on Kayexalate. But the nurse told me Kayexalate is back dated on we decided to continue Victoza. Lasix was increased to 40 mg daily still potassium is elevated with 5.6 and he is also on MiraLAX for constipation. We are going to check his potassium levels again tomorrow patient is asymptomatic. I discussed the plan with the nurse Petra she said patient is not compliant with Kayexalate and MiraLAX will try to convince him to take those medications to bring the potassium levels down. 07/05/2018-patient's potassium is persistently high above 5.4 today better compared to yesterday. Patient said he has a good bowel movement yesterday. Patient is on Veltassa, is also getting as needed Kayexalate. Plan is to recheck his labs tomorrow. 07/06/2018-potassium is persistently high 5.5 today. veltassa was increased to 25 .6 g/day. Plan to repeat the labs tomorrow patient is asymptomatic. 07/07/2018-patient does have the persistently elevated potassium levels it is 5.2 today he was started on Veltassa 25.6 g daily and he was also on MiraLAX but he is refusing to take the MiraLAX. going to continue to check his chemistry panel and daily basis. 07/08/2018-patient have a persistently elevated potassium levels able 5 for the last several days we placed him on MiraLAX but he is refusing Veltassa was started, patient was placed on low potassium diet but he does not want to eat low potassium diet. Plan to repeat the potassium levels tomorrow. 07/09/2018: Improved with low potassium diet. Continue diet and monitoring. (6) DEANNA (acute kidney injury) Is this a current diagnosis for this admission?: Yes Plan: 06/30/2018-patient was admitted with acute kidney injury which was resolved. Creatinine latest one is 1.28 at baseline. Presently on Lasix 20 mg p.o. daily. Plan is to check creatinine panel tomorrow. 07/01/2018-patient was admitted with elevated creatinine levels 1.45 present creatinine is 1.38 acute kidney injury is resolved. 07/02/2018 latest creatinine is 1.5-20 Slowly. Plan to stop allopurinol and Lasix. To recheck his renal panel tomorrow. Worsening kidney function may be secondary to medications/prerenal causes. 07/03/2018-patient's latest creatinine is 1.4 it is fluctuating between 1.25-1.4. Plan is to check the daily labs. 07/04/2018-latest creatinine is 1.3 stable his baseline creatinine is around 1.28. Presently on Lasix 40 mg p.o. daily. Plan is to continue the present management. 07/05/2018-latest creatinine was 1.41 it is fluctuating between 1.3-1.4. His acute kidney injury is resolved. 07/06/2018-patient latest creatinine is 1.38-stable. 07/07/2018 patient's creatinine today is 1.31 stable. Acute kidney injury is resolved. 07/09/2018: Appears to be near baseline creatinine. (7) Gouty arthritis Is this a current diagnosis for this admission?: Yes 07/09/18- no current issues. Continue allopurinol (8) Constipation 07/09/18 -Start MiraLAX and docusate daily. Monitor closely. Does not appear to be obstructed at this time. Disposition: Discharge planning still ongoing.
[2018-07-09] MEDS: PATIROMER 8.4 GM SUSP PACKET PO SCH (21:04)
[2018-07-09] MEDS: ROPINIROLE HCL 0.25 MG TABLET PO SCH (21:11)
[2018-07-09] MEDS: ALPRAZOLAM 0.25 MG TABLET PO PRN (21:12)
[2018-07-09] MEDS: OXYCODONE-ACETAMINOPHEN 5-325 MG TABLET PO PRN (21:12)
[2018-07-10] MEDS: LANSOPRAZOLE 30 MG TAB.RAP.DR PO SCH ×2 (05:13→16:17)
[2018-07-10 09:19] LABS: HEMATOCRIT 35.8 % (37.9-51.0); MEAN CORPUSCULAR HGB CONC 33.5 g/dL (32.0-36.0); MEAN CORPUSCULAR VOLUME 84 fl (80-97); PLATELET COUNT 243 10^3/uL (150-450); RED BLOOD COUNT 4.28 10^6/uL (4.35-5.55); WHITE BLOOD COUNT 8.8 10^3/uL (4.0-10.5)
[2018-07-10 09:44] LABS: ALANINE AMINOTRANSFERASE 32 U/L (21-72); ALBUMIN 4.2 g/dL (3.5-5.0); ALKALINE PHOSPHATASE 90 U/L (38-126); ANION GAP 10 (5-19); ASPARTATE AMINO TRANSFERASE 30 U/L (17-59); BILIRUBIN,DIRECT 0.3 mg/dL (0.0-0.4); BILIRUBIN,TOTAL 0.4 mg/dL (0.2-1.3); BLOOD UREA NITROGEN 33 mg/dL (7-20); CALCIUM 9.1 mg/dL (8.4-10.2); CARBON DIOXIDE 36 mmol/L (22-30); CHLORIDE 98 mmol/L (98-107); GLUCOSE 104 mg/dL (75-110); TOTAL PROTEIN 7.1 g/dL (6.3-8.2)
[2018-07-10] MEDS: FUROSEMIDE 40 MG TABLET PO SCH (09:47)
[2018-07-10] MEDS: POLYETHYLENE GLYCOL 3350 POWDER 17 GM/1 PACKET PO SCH (09:47)
[2018-07-10] MEDS: ACETAMINOPHEN 325 MG TABLET PO SCH ×4 (09:47→21:55)
[2018-07-10] MEDS: GABAPENTIN 300 MG CAPSULE PO SCH ×3 (09:47→21:56)
[2018-07-10] MEDS: DOCUSATE SODIUM 100 MG CAPSULE PO SCH ×3 (09:47→17:12)
[2018-07-10] MEDS: ASPIRIN 81 MG TABLET, CHEWABLE PO SCH (09:48)
[2018-07-10] MEDS: CARVEDILOL 3.125 MG TABLET PO SCH ×2 (09:48→21:56)
[2018-07-10] MEDS: PREDNISONE 10 MG TABLET PO SCH ×2 (09:48→17:12)
[2018-07-10] MEDS: DIGOXIN 0.125 MG TABLET PO SCH (09:48)
[2018-07-10] MEDS: CYCLOSPORINE 0.05% OPH EMULSIO 0.4 ML DROPERETTE OU SCH (10:00)
--- NOTE | 2018-07-10 14:54 | PDOC PROGRESS REPORT ---
Subjective Reason For Visit: CHF Physical Exam Vital Signs: Temp Pulse Resp BP Pulse Ox 98.6 F 98 20 131/81 H 93 07/10/18 12:00 07/10/18 12:00 07/10/18 12:00 07/10/18 12:00 07/10/18 12:00 Intake & Output 07/09/18 07/10/18 07/11/18 06:59 06:59 06:59 Intake Total 1696 967 Output Total 650 1275 Balance 1046 -308 Weight 86.6 kg General appearance: PRESENT: no acute distress, cooperative, other - Childlike a t times. Difficulty expressing words. Head exam: PRESENT: atraumatic, normocephalic Ear exam: PRESENT: normal external ear exam Mouth exam: PRESENT: moist, tongue midline Respiratory exam: PRESENT: other - Good airflow bilaterally. No appreciable wheeze, rhonchi, crackles. Cardiovascular exam: PRESENT: +S1, +S2, tachycardia Pulses: PRESENT: normal dorsalis pedis pul Vascular exam: PRESENT: normal capillary refill GI/Abdominal exam: PRESENT: other - Soft, nontender, bowel sounds present, minimal stool palpated left lower quadrant. Extremities exam: PRESENT: other - 1+ edema bilateral lower extremity's. Musculoskeletal exam: PRESENT: full ROM, normal inspection Neurological exam: PRESENT: alert, awake, oriented to person, oriented to place, oriented to time, oriented to situation, CN II-XII grossly intact. ABSENT: motor sensory deficit Psychiatric exam: PRESENT: other - Mostly pleasant, however easily stimulated. Results Laboratory Results: 07/10/18 08:29 07/10/18 08:29 07/10/18 07/10/18 08:29 08:29 WBC 8.8 RBC 4.28 L Hgb 12.0 L Hct 35.8 L MCV 84 MCH 28.0 MCHC 33.5 RDW 15.0 H Plt Count 243 Sodium 144.0 Potassium 5.0 Chloride 98 Carbon Dioxide 36 H Anion Gap 10 BUN 33 H Creatinine 1.42 H Est GFR ( Amer) > 60 Est GFR (Non-Af Amer) 50 L Glucose 104 Calcium 9.1 Magnesium 2.0 Total Bilirubin 0.4 AST 30 ALT 32 Alkaline Phosphatase 90 Total Protein 7.1 Albumin 4.2 05/11/18 05/11/18 05/11/18 09:35 09:35 09:35 Creatine Kinase 37 L CK-MB (CK-2) Troponin I 0.071 NT-Pro-B Natriuret Pep 6800 H 05/11/18 05/11/18 05/12/18 12:30 19:00 01:06 Creatine Kinase CK-MB (CK-2) Troponin I 0.067 0.064 0.050 NT-Pro-B Natriuret Pep 05/23/18 05/24/18 05/27/18 10:36 09:38 10:01 Creatine Kinase CK-MB (CK-2) Troponin I 0.060 NT-Pro-B Natriuret Pep 819 889 06/03/18 06/08/18 06/08/18 08:12 13:40 13:40 Creatine Kinase 39 L CK-MB (CK-2) 1.92 Troponin I 0.060 NT-Pro-B Natriuret Pep 1420 H 06/08/18 06/08/18 06/09/18 19:03 19:03 00:59 Creatine Kinase 36 L 34 L CK-MB (CK-2) 1.75 Troponin I 0.058 NT-Pro-B Natriuret Pep 06/09/18 06/09/18 06/09/18 00:59 08:04 08:04 Creatine Kinase 32 L CK-MB (CK-2) 1.58 1.79 Troponin I 0.063 0.064 NT-Pro-B Natriuret Pep 06/09/18 06/09/18 06/09/18 12:52 12:52 19:00 Creatine Kinase 46 L 31 L CK-MB (CK-2) 1.99 Troponin I 0.051 NT-Pro-B Natriuret Pep 06/09/18 06/25/18 07/04/18 19:00 07:35 08:21 Creatine Kinase CK-MB (CK-2) 1.80 Troponin I 0.072 0.054 NT-Pro-B Natriuret Pep 1660 H Impressions: Thoracentesis Ultrasound 05/13/18 10:06 IMPRESSION: SUCCESSFUL THORACENTESIS USING ULTRASOUND GUIDANCE. Chest X-Ray 07/03/18 00:00 IMPRESSION: Cardiomegaly. Small bibasilar effusions. Mild pulmonary vascular congestion. copyright 2011 [employer]- All Rights Reserved Assessment & Plan - Diagnosis (1) DEANNA (acute kidney injury) Is this a current diagnosis for this admission?: Yes (2) Acute and chronic respiratory failure with hypoxia Is this a current diagnosis for this admission?: Yes (3) Acute on chronic systolic (congestive) heart failure Is this a current diagnosis for this admission?: Yes (4) Gouty arthritis Is this a current diagnosis for this admission?: Yes (5) Hyperkalemia Is this a current diagnosis for this admission?: Yes (6) Constipation Qualifiers: Constipation type: unspecified constipation type Qualified Code(s): K59.00 - Constipation, unspecified Is this a current diagnosis for this admission?: Yes - Time Time Spent with patient: 15-24 minutes Medications reviewed and adjusted accordingly: Yes - Inpatient Certification Based on my medical assessment, after consideration of the patient's comorbi dities, presenting symptoms, or acuity I expect that the services needed warrant INPATIENT care.: Yes I certify that my determination is in accordance with my understanding of Medicare's requirements for reasonable and necessary INPATIENT services [42 CFR 412.3e].: Yes - Plan Summary Plan Summary: (1) Acute and chronic respiratory failure with hypoxia Is this a current diagnosis for this admission?: Yes 07/09/2018: Currently on nasal cannula O2. Utilizing 2.5 L. Reports using 2 L at home. Monitoring. 07/10/18- currently on RA (2) Acute on chronic systolic (congestive) heart failure Is this a current diagnosis for this admission?: Yes Plan: 05/12/2018: Combined systolic and diastolic biventricular failure. Continue Lasix 40 mg daily. Cardiology following. Echo shows an EF of 30-35%, grade 2 diastolic dysfunction and dilated left and right ventricular. Patient already has an AICD. 05/13/2018: Patient is not on UZMA inhibitor hence is not on optimal medical therapy. CHF medication regimen cannot be optimized as patient has had angioedema from captopril before. Both UZMA inhibitors and Entresto will be co ntraindicated to a history of ACEi-associated angioedema. Discussed with cardio and pulm. Recommendation for BIPAP at home/discharge for his biventricular heart failure and significant pulmonary hypertension. 05/14/18:Continue Coreg and Aldactone. 05/16/18: Decreased Lasix to 40 mg IV daily from q12 due to alkalosis. 05/19/2018-patient has history of congestive heart failure. Which is combined systolic diastolic biventricular failure. Patient is on Lasix 40 mg IV twice daily. cardiology on board. EF is 30-35%. Grade 2 diastolic dysfunction and dilated left and right ventricular chambers. Patient has AICD. Patient is not on UZMA inhibitors because of history of angioedema. UZMA inhibitors and Entresto are not contraindicated because of the ACEi associated angioedema. Patient is also on Coreg and Aldactone. [facility]. 05/20/2018-has a combined systolic diastolic biventricular failure. EF is 30- 35%. Echocardiogram shows grade 2 diastolic dysfunction and dilated left and right ventricular chambers. Patient has AICD. Patient is not on UZMA inhibitors because of history of angioedema. Stoped Aldactone today because potassium is 5.1. 05/21/2018-patient has history of congestive heart failure combined systolic diastolic biventricular failure with EF of 30-35%. Patient is allergic to UZMA inhibitors gives angioedema. Latest potassium is 5.1. We are going to check his potassium levels today. Yesterday I stopped his spironolactone and we stopped potassium supplementation. 05/22/2018-his latest potassium is 5.0 potassium supplementation was discontinued spironolactone was discontinued, has EF is 30-35%. Patient is not in fluid overload I am going to follow the patient regular basis. 05/23/2018-potassium level is 5.0 stable patient ejection fraction is 30-45%. Patient has combined systolic diastolic biventricular heart failure. He has AICD. And is to continue the present management. 05/24/2018-patient's has a biventricular systolic and diastolic heart failure with EF of 35-40%. Patient has AICD. He is on Lasix 40 IV daily I am going to switch her to 40 mg p.o. daily. 05/25/2018-patient is not in fluid overload chest was clear no pedal edema. He has biventricular systolic/diastolic heart failure with EF of 35-40%. He is on Lasix.Combined systolic and diastolic biventricular failure. Continue Lasix 40 mg daily. Cardiology following. Echo shows an EF of 30-35%, grade 2 diastolic dysfunction and dilated left and right ventricular. Patient already has an AICD. - 06/01/18: Patient is not on UZMA inhibitor hence is not on optimal medical therapy. CHF medication regimen cannot be optimized as patient has had angioedema from captopril before. Both UZMA inhibitors and Entresto will be contraindicated to a history of ACEi-associated angioedema. Discussed with cardio and pulm. Recommendation for BIPAP at home/discharge for his biventricular heart failure and significant pulmonary hypertension.Continue Coreg. Aldactone was d/raghav due to his potassium trending up.Aldactone resumed. Continue Lasix 40 mg daily. 06/02/2017-patient has combined systolic and diastolic biventricular failure he is on Lasix 40 mg p.o. daily and also on Aldactone. Patient is not in fluid overload. And is to continue the present management. 06/03/2017 patient has history of combined systolic diastolic biventricular failure on Lasix 40 mg p.o. daily and is also on Aldactone potassium levels going back up again it was 5.2 today I am going to stop the Aldactone and and follow the potassium levels. 06/04/2018-pt is not in fluid overload. plan to continue present treatment. With this 06/05/2018-patient has history of for combined systolic/diastolic biventricular failure on Lasix 40 mg p.o. daily Aldactone was discontinued because of the persistently elevated potassium levels. Potassium level today is 3.7. 06/06/2018-patient has a biventricular heart failure with EF of less than 30% patient is not in fluid overload. Plan is to continue the present management. 06/08/2018-patient has history of heart failure with EF of less than 30% patient is not in fluid overload. He has AICD. 06/07/2018 patient has history of biventricular heart failure with EF of less than 30% patient is not in fluid overload plan is to continue the present management. 06/30/2018-patient has history of combined systolic diastolic biventricular heart failure. Cardiology consult was done echocardiogram shows EF of 30-35% grade 2 diastolic dysfunction and dilated left and right heart ventricules. Patient is presently on Lasix 20 mg p.o. daily. Not in fluid overload. Plan is to check a BNP and labs tomorrow. Latest BNP is 1490. 07/02/2018 patient has history of biventricular heart failure. Is also systolic and diastolic heart failure echocardiogram with EF of 30-35% and grade 2 diastolic dysfunction with a dilated left and right ventricles. Patient is presently on Lasix 20 mg p.o. daily not in fluid overload. His creatinine is slowly trending up. I am going to hold his Lasix for now. 07/03/2018-patient has history of biventricular failure. EF is 30-35%. In association with a diastolic dysfunction. Patient is on Lasix 20 mg daily. Plan is to increase the Lasix to 40 mg daily because of the persistently elevated potassium levels. 07/04/2018 patient has a history of biventricular heart failure. EF is 30-35%. No signs of fluid overload. Follow-up chest x-ray done yesterday shows no vascular congestion small bilateral pleural effusions. Patient is presently on Lasix 40 mg p.o. daily. 07/05/2018-patient has a biventricular heart failure. EF of 30-35%. No signs of fluid overload. Chest x-ray shows small stable bilateral pleural effusions. Presently on Lasix 40 mg p.o. daily. Plan is to continue the present management. 07/07/2018-patient has biventricular heart failure with a pacemaker. EF is 30- 35%. Chest x-ray shows stable small bilateral effusions. Presently on Lasix 40 mg p.o. daily. Plan is to continue the present management. 07/08/2018-patient has history of biventricular heart failure with a pacemaker, EF is 30-35%. Status post thoracentesis and removal of 750 mL of fluid on 05/13/[id number] chest x-ray shows small bilateral pleural effusions stable patient is not in fluid overload, presently on Lasix 40 mg daily plan is to continue the present management. 07/09/2018: Last ejection fraction 30-35%. Appears to be stable in this regard on po Lasix 40 mg daily. Monitoring. 07/10/18-no current issues. Patient is on carvedilol, aspirin, Lasix, digoxin. UZMA or ARB was likely stopped due to kidney injury. Consideration could be given to restarting a low-dose. (3) Pleural effusion Is this a current diagnosis for this admission?: Yes Plan: 05/19/2018-patient came in with a right-sided pleural effusion status post thoracentesis on 05/13/2018 with removal of 750 cc of fluid. Fluid analysis consistent with transudate. Which is likely secondary to CHF. Negative for infection. 05/20/2018-patient came in with right pleural effusion status post thoracentesis on 05/13/2018. The cultures are negative. Is a nurse manager medicaid getting discharge orders and bites and 05/21/2018 status post thoracentesis of right pleural effusion 750 cc of fluid was removed. cultures Negative. 05/23/2018 during this hospital stay he had a right-sided thoracentesis. And 750 cc of fluid was removed. I am going to redo the chest x-ray today. 05/25/2018-status post right-sided thoracentesis. On examination decreased air entry at the right base. Probably persistent pleural effusion. 06/12/2017 status post right-sided thoracentesis with 750 cc of fluid removal on 05/13/2018. Pleural fluid analysis is consistent with transudate to effusion most likely secondary to patient's congestive heart failure. 06/30/2018 latest chest x-ray done on 06/27/2018 shows moderate right pleural effusion. Seen by game operator on 06/27/2018. Plan is to continue the present management. He had a right-sided thoracentesis was done on 05/13/2019 with removal of 750 cc of fluid. 07/01/2018 on 05/13/2019 750 cc of fluid was removed after thoracentesis. Follow- up chest x-ray shows stable right pleural effusion. Patient is not in resp iratory distress. Plan is to continue the present management. 07/02/2018 follow-up chest x-rays indicates stable pleural effusions. Patient is not in respiratory distress. Plan is to continue the present management. 07/03/2018-thoracentesis was done on 05/13/2019 with removal of 750 mL of fluid follow-up x-ray shows stable pleural effusions am going to repeat the chest x- ray today again. 07/04/2018-on 05/13/2019 thoracentesis was done so for 50 mL of fluid was removed. It is a transudate. Follow-up chest x-rays shows stable pleural effusions. 07/06/2018 thoracentesis was done on 05/13/2018 750 mL of fluid was removed it most likely secondary to chronic CHF. Follow-up chest x-ray shows stable pleural effusions. [id number] chest x-ray shows stable small pleural effusions. 07/08/2018 status post thoracentesis on 05/13/2018 with removal of 750 mL of pleural fluid fluid analysis negative for malignancy. Most likely secondary to CHF. Follow-up x-ray shows stable pleural effusions. 07/09/2018: Remained stable with no acute issues. CHF in origin. 07/10/18-no current issues. (4) CAD (coronary artery disease) Is this a current diagnosis for this admission?: Yes -07/09/18: no current issues 07/10/18-no current issues. (5) Hyperkalemia Is this a current diagnosis for this admission?: Yes Plan: 06/28/2018 is 5.4. He was off the Aldactone. Plan is to check a CMP today. If the potassium is still high I am going to put him on Kayexalate. 07/01/2018 patient potassium level is 5.3 yesterday. He is not on any potassium sparing diuretics. Started on Kayexalate 15 mL twice a day. 07/02/2018 latest potassium is 5.2 he was started on Kayexalate and daily basis. Plan is to recheck the labs tomorrow. 07/03/2018 latest potassium level is 5.7. Going to put him on Kayexalate 30 mg p.o. every 6 hours, started on Veltassa 8.4 gm daily. Plan to recheck the labs tomorrow. 07/04/2018-latest potassium is 5.6 yesterday it was 5.7 started on Veltassa and also on Kayexalate. But the nurse told me Kayexalate is back dated on we decided to continue Victoza. Lasix was increased to 40 mg daily still potassium is elevated with 5.6 and he is also on MiraLAX for constipation. We are going to check his potassium levels again tomorrow patient is asymptomatic. I discussed the plan with the nurse Petra she said patient is not compliant with Kayexalate and MiraLAX will try to convince him to take those medications to bring the potassium levels down. 07/05/2018-patient's potassium is persistently high above 5.4 today better compared to yesterday. Patient said he has a good bowel movement yesterday. Patient is on Veltassa, is also getting as needed Kayexalate. Plan is to recheck his labs tomorrow. 07/06/2018-potassium is persistently high 5.5 today. veltassa was increased to 25.6 g/day. Plan to repeat the labs tomorrow patient is asymptomatic. 07/07/2018-patient does have the persistently elevated potassium levels it is 5.2 today he was started on Veltassa 25.6 g daily and he was also on MiraLAX but he is refusing to take the MiraLAX. going to continue to check his chemistry panel and daily basis. 07/08/2018-patient have a persistently elevated potassium levels able 5 for the last several days we placed him on MiraLAX but he is refusing Veltassa was started, patient was placed on low potassium diet but he does not want to eat low potassium diet. Plan to repeat the potassium levels tomorrow. 07/09/2018: Improved with low potassium diet. Continue diet and monitoring. 07/10/18-seems to be resolved with low potassium diet. Continue to monitor (6) DEANNA (acute kidney injury) Is this a current diagnosis for this admission?: Yes Plan: 06/30/2018-patient was admitted with acute kidney injury which was resolved. Creatinine latest one is 1.28 at baseline. Presently on Lasix 20 mg p.o. daily. Plan is to check creatinine panel tomorrow. 07/01/2018-patient was admitted with elevated creatinine levels 1.45 present creatinine is 1.38 acute kidney injury is resolved. 07/02/2018 latest creatinine is 1.5-20 Slowly. Plan to stop allopurinol and Lasix. To recheck his renal panel tomorrow. Worsening kidney function may be secondary to medications/prerenal causes. 07/03/2018-patient's latest creatinine is 1.4 it is fluctuating between 1.25-1.4. Plan is to check the daily labs. 07/04/2018-latest creatinine is 1.3 stable his baseline creatinine is around 1.28. Presently on Lasix 40 mg p.o. daily. Plan is to continue the present management. 07/05/2018-latest creatinine was 1.41 it is fluctuating between 1.3-1.4. His acute kidney injury is resolved. 07/06/2018-patient latest creatinine is 1.38-stable. 07/07/2018 patient's creatinine today is 1.31 stable. Acute kidney injury is resolved. 07/09/2018: Appears to be near baseline creatinine. 07/10/18-continues to be around baseline. (7) Gouty arthritis Is this a current diagnosis for this admission?: Yes 07/09/18- no current issues. Continue allopurinol 07/10/18-no changes to allopurinol. (8) Constipation 07/09/18 -Start MiraLAX and docusate daily. Monitor closely. Does not appear to be obstructed at this time. 07/10/18- Docusate increased to 100 mg 3 times daily. MiraLAX increased to 17 g twice daily. Monitor closely. Abdomen remains soft. Mild constipation in nature. Consider stimulant laxative or going from below if constipation persi st. (9) Chronic Pain-patient has complaints of chronic OA pain. Increase gabapentin to 300mg tid for increased pain mgt. consider increasing to 600mg tid if needed, and try to avoid increasing narcotics. conitnues to be on benzo + narcotic Disposition: Discharge planning still ongoing. -Agitation: Appears to have had an episode of agitation on 07/08 that was resolved with 5 mg of Haldol and 0.25 mrem of Xanax. Nocturnal is also ordered 0.25 milligrams of Xanax as needed for agitation. Monitoring. He seems to have significant expressive aphasia, but seems to be relatively in control of his behavior.
[2018-07-10] MEDS: OXYCODONE-ACETAMINOPHEN 5-325 MG TABLET PO PRN ×2 (17:12→21:56)
[2018-07-10] MEDS: PATIROMER 8.4 GM SUSP PACKET PO SCH (21:48)
[2018-07-10] MEDS: ROPINIROLE HCL 0.25 MG TABLET PO SCH (21:55)
[2018-07-10] MEDS: ALPRAZOLAM 0.25 MG TABLET PO PRN (21:56)
[2018-07-11] MEDS: POLYETHYLENE GLYCOL 3350 POWDER 17 GM/1 PACKET PO SCH ×4 (05:04→21:13)
[2018-07-11] MEDS: GABAPENTIN 300 MG CAPSULE PO SCH ×3 (06:36→21:15)
[2018-07-11] MEDS: LANSOPRAZOLE 30 MG TAB.RAP.DR PO SCH ×2 (06:36→17:48)
[2018-07-11 09:03] LABS: ANION GAP 8 (5-19); BLOOD UREA NITROGEN 36 mg/dL (7-20); CALCIUM 8.7 mg/dL (8.4-10.2); CARBON DIOXIDE 37 mmol/L (22-30); CHLORIDE 99 mmol/L (98-107); CHOLESTEROL 165.08 mg/dL (0-200); GLUCOSE 94 mg/dL (75-110); POTASSIUM 4.7 mmol/L (3.6-5.0); SODIUM 143.7 mmol/L (137-145); TRIGLYCERIDES 38 mg/dL (<150)
[2018-07-11 09:14] LABS: DIRECT LDL 82 mg/dL (<100)
[2018-07-11] MEDS: ACETAMINOPHEN 325 MG TABLET PO SCH ×4 (10:21→21:15)
[2018-07-11] MEDS: ASPIRIN 81 MG TABLET, CHEWABLE PO SCH (10:21)
[2018-07-11] MEDS: CARVEDILOL 3.125 MG TABLET PO SCH ×2 (10:21→21:16)
[2018-07-11] MEDS: DOCUSATE SODIUM 100 MG CAPSULE PO SCH ×3 (10:21→17:48)
[2018-07-11] MEDS: PREDNISONE 10 MG TABLET PO SCH ×2 (10:22→17:48)
[2018-07-11] MEDS: DIGOXIN 0.125 MG TABLET PO SCH (10:22)
[2018-07-11] MEDS: FUROSEMIDE 40 MG TABLET PO SCH (10:22)
[2018-07-11] MEDS: CYCLOSPORINE 0.05% OPH EMULSIO 0.4 ML DROPERETTE OU SCH (10:23)
--- NOTE | 2018-07-11 16:17 | PDOC PROGRESS REPORT ---
Subjective Progress Note for:: 07/11/18 Subjective:: Patient states he does not like his low potassium diet but after we talked about why he needs to be on it and he agrees to continue with it. No chest pain or difficulty breathing. He states that he does not need anything right now need like to finish his lunch. Reason For Visit: CHF, awaiting placement Physical Exam Vital Signs: Temp Pulse Resp BP Pulse Ox 98.3 F 93 20 125/63 99 07/11/18 12:00 07/11/18 12:00 07/11/18 12:00 07/11/18 12:00 07/11/18 12:00 Intake & Output 07/10/18 07/11/18 07/12/18 06:59 06:59 06:59 Intake Total 967 1452 Output Total 1275 960 Balance -308 492 General appearance: PRESENT: no acute distress, cooperative, well-developed, well-nourished Head exam: PRESENT: atraumatic, normocephalic Eye exam: ABSENT: conjunctival injection, scleral icterus Ear exam: PRESENT: normal external ear exam Mouth exam: PRESENT: moist Respiratory exam: PRESENT: clear to auscultation rahul, unlabored. ABSENT: decreased breath sounds, rhonchi, wheezes Cardiovascular exam: PRESENT: RRR. ABSENT: systolic murmur Pulses: PRESENT: normal radial pulses GI/Abdominal exam: PRESENT: normal bowel sounds, soft. ABSENT: ascites, distended, guarding, tenderness Rectal exam: PRESENT: deferred Gentrourinary exam: ABSENT: indwelling catheter Extremities exam: PRESENT: other Neurological exam: PRESENT: alert, awake, oriented to person, oriented to place Psychiatric exam: PRESENT: unusual affect Skin exam: PRESENT: dry, normal color Results Laboratory Results: 07/10/18 08:29 07/11/18 08:28 07/11/18 08:28 Sodium 143.7 Potassium 4.7 Chloride 99 Carbon Dioxide 37 H Anion Gap 8 BUN 36 H Creatinine 1.48 H Est GFR ( Amer) 58 L Est GFR (Non-Af Amer) 48 L Glucose 94 Calcium 8.7 Magnesium 2.1 Triglycerides 38 Cholesterol 165.08 LDL Cholesterol Direct 82 VLDL Cholesterol 8.0 L HDL Cholesterol 60 05/11/18 05/11/18 05/11/18 09:35 09:35 09:35 Creatine Kinase 37 L CK-MB (CK-2) Troponin I 0.071 NT-Pro-B Natriuret Pep 6800 H 05/11/18 05/11/18 05/12/18 12:30 19:00 01:06 Creatine Kinase CK-MB (CK-2) Troponin I 0.067 0.064 0.050 NT-Pro-B Natriuret Pep 05/23/18 05/24/18 05/27/18 10:36 09:38 10:01 Creatine Kinase CK-MB (CK-2) Troponin I 0.060 NT-Pro-B Natriuret Pep 819 889 06/03/18 06/08/18 06/08/18 08:12 13:40 13:40 Creatine Kinase 39 L CK-MB (CK-2) 1.92 Troponin I 0.060 NT-Pro-B Natriuret Pep 1420 H 06/08/18 06/08/18 06/09/18 19:03 19:03 00:59 Creatine Kinase 36 L 34 L CK-MB (CK-2) 1.75 Troponin I 0.058 NT-Pro-B Natriuret Pep 06/09/18 06/09/18 06/09/18 00:59 08:04 08:04 Creatine Kinase 32 L CK-MB (CK-2) 1.58 1.79 Troponin I 0.063 0.064 NT-Pro-B Natriuret Pep 06/09/18 06/09/18 06/09/18 12:52 12:52 19:00 Creatine Kinase 46 L 31 L CK-MB (CK-2) 1.99 Troponin I 0.051 NT-Pro-B Natriuret Pep 06/09/18 06/25/18 07/04/18 19:00 07:35 08:21 Creatine Kinase CK-MB (CK-2) 1.80 Troponin I 0.072 0.054 NT-Pro-B Natriuret Pep 1660 H Impressions: Thoracentesis Ultrasound 05/13/18 10:06 IMPRESSION: SUCCESSFUL THORACENTESIS USING ULTRASOUND GUIDANCE. Chest X-Ray 07/03/18 00:00 IMPRESSION: Cardiomegaly. Small bibasilar effusions. Mild pulmonary vascular congestion. copyright 2011 [employer]- All Rights Reserved Assessment & Plan - Time Time Spent with patient: 15-24 minutes - Inpatient Certification Based on my medical assessment, after consideration of the patient's comorbidities, presenting symptoms, or acuity I expect that the services needed warrant INPATIENT care.: Yes I certify that my determination is in accordance with my understanding of Medicare's requirements for reasonable and necessary INPATIENT services [42 CFR 412.3e].: Yes Medical Necessity: Risk of Complication if Not Cared For in Hospital - Plan Summary Plan Summary: Plan Summary: (1) Acute and chronic respiratory failure with hypoxia Is this a current diagnosis for this admission?: Yes 07/09/2018: Currently on nasal cannula O2. Utilizing 2.5 L. Reports using 2 L at home. Monitoring. 07/10/18- currently on RA 07/11/2018-patient seems to be at baseline from this perspective. Continue to monitor his respiratory status. (2) Acute on chronic systolic (congestive) heart failure Is this a current diagnosis for this admission?: Yes Plan: 05/12/2018: Combined systolic and diastolic biventricular failure. Continue Lasix 40 mg daily. Cardiology following. Echo shows an EF of 30-35%, grade 2 diastolic dysfunction and dilated left and right ventricular. Patient already has an AICD. 05/13/2018: Patient is not on UZMA inhibitor hence is not on optimal medical therapy. CHF medication regimen cannot be optimized as patient has had angioedema from captopril before. Both UZMA inhibitors and Entresto will be contraindicated to a history of ACEi-associated angioedema. Discussed with cardio and pulm. Recommendation for BIPAP at home/discharge for his biventricular heart failure and significant pulmonary hypertension. 05/14/18:Continue Coreg and Aldactone. 05/16/18: Decreased Lasix to 40 mg IV daily from q12 due to alkalosis. 05/19/2018-patient has history of congestive heart failure. Which is combined systolic diastolic biventricular failure. Patient is on Lasix 40 mg IV twice daily. cardiology on board. EF is 30-35%. Grade 2 diastolic dysfunction and dilated left and right ventricular chambers. Patient has AICD. Patient is not on UZMA inhibitors because of history of angioedema. UZMA inhibitors and Entresto are not contraindicated because of the ACEi associated angioedema. Patient is also on Coreg and Aldactone. And is to discharge him to [facility] on BiPAP. 05/20/2018-has a combined systolic diastolic biventricular failure. EF is 30- 35%. Echocardiogram shows grade 2 diastolic dysfunction and dilated left and right ventricular chambers. Patient has AICD. Patient is not on UZMA inhibitors because of history of angioedema. Stoped Aldactone today because potassium is 5.1. 05/21/2018-patient has history of congestive heart failure combined systolic diastolic biventricular failure with EF of 30-35%. Patient is allergic to UZMA inhibitors gives angioedema. Latest potassium is 5.1. We are going to check his potassium levels today. Yesterday I stopped his spironolactone and we stopped potassium supplementation. 05/22/2018-his latest potassium is 5.0 potassium supplementation was discontinued spironolactone was discontinued, has EF is 30-35%. Patient is not in fluid overload I am going to follow the patient regular basis. 05/23/2018-potassium level is 5.0 stable patient ejection fraction is 30-45%. Patient has combined systolic diastolic biventricular heart failure. He has AICD. And is to continue the present management. 05/24/2018-patient's has a biventricular systolic and diastolic heart failure with EF of 35-40%. Patient has AICD. He is on Lasix 40 IV daily I am going to switch her to 40 mg p.o. daily. 05/25/2018-patient is not in fluid overload chest was clear no pedal edema. He has biventricular systolic/diastolic heart failure with EF of 35-40%. He is on Lasix.Combined systolic and diastolic biventricular failure. Continue Lasix 40 mg daily. Cardiology following. Echo shows an EF of 30-35%, grade 2 diastolic dysfunction and dilated left and right ventricular. Patient already has an AICD. - 06/01/18: Patient is not on UZMA inhibitor hence is not on optimal medical therapy. CHF medication regimen cannot be optimized as patient has had angioedema from captopril before. Both UZMA inhibitors and Entresto will be contraindicated to a history of ACEi-associated angioedema. Discussed with cardio and pulm. Recommendation for BIPAP at home/discharge for his biventricular heart failure and significant pulmonary hypertension.Continue Coreg. Aldactone was d/raghav due to his potassium trending up.Aldactone resumed. Continue Lasix 40 mg daily. 06/02/2017-patient has combined systolic and diastolic biventricular failure he is on Lasix 40 mg p.o. daily and also on Aldactone. Patient is not in fluid overload. And is to continue the present management. 06/03/2017 patient has history of combined systolic diastolic biventricular failure on Lasix 40 mg p.o. daily and is also on Aldactone potassium levels going back up again it was 5.2 today I am going to stop the Aldactone and and follow the potassium levels. 06/04/2018-pt is not in fluid overload. plan to continue present treatment. With this 06/05/2018-patient has history of for combined systolic/diastolic biventricular failure on Lasix 40 mg p.o. daily Aldactone was discontinued because of the persistently elevated potassium levels. Potassium level today is 3.7. 06/06/2018-patient has a biventricular heart failure with EF of less than 30% patient is not in fluid overload. Plan is to continue the present management. 06/08/2018-patient has history of heart failure with EF of less than 30% patient is not in fluid overload. He has AICD. 06/07/2018 patient has history of biventricular heart failure with EF of less than 30% patient is not in fluid overload plan is to continue the present management. 06/30/2018-patient has history of combined systolic diastolic biventricular heart failure. Cardiology consult was done echocardiogram shows EF of 30-35% grade 2 diastolic dysfunction and dilated left and right heart ventricules. Patient is presently on Lasix 20 mg p.o. daily. Not in fluid overload. Plan is to check a BNP and labs tomorrow. Latest BNP is 1490. 07/02/2018 patient has history of biventricular heart failure. Is also systolic and diastolic heart failure echocardiogram with EF of 30-35% and grade 2 diastolic dysfunction with a dilated left and right ventricles. Patient is presently on Lasix 20 mg p.o. daily not in fluid overload. His creatinine is slowly trending up. I am going to hold his Lasix for now. 07/03/2018-patient has history of biventricular failure. EF is 30-35%. In association with a diastolic dysfunction. Patient is on Lasix 20 mg daily. Plan is to increase the Lasix to 40 mg daily because of the persistently e levated potassium levels. 07/04/2018 patient has a history of biventricular heart failure. EF is 30-35%. No signs of fluid overload. Follow-up chest x-ray done yesterday shows no vascular congestion small bilateral pleural effusions. Patient is presently on Lasix 40 mg p.o. daily. 07/05/2018-patient has a biventricular heart failure. EF of 30-35%. No signs of fluid overload. Chest x-ray shows small stable bilateral pleural effusions. Presently on Lasix 40 mg p.o. daily. Plan is to continue the present management. 07/07/2018-patient has biventricular heart failure with a pacemaker. EF is 30- 35%. Chest x-ray shows stable small bilateral effusions. Presently on Lasix 40 mg p.o. daily. Plan is to continue the present management. 07/08/2018-patient has history of biventricular heart failure with a pacemaker, EF is 30-35%. Status post thoracentesis and removal of 750 mL of fluid on 05/[id number] chest x-ray shows small bilateral pleural effusions stable patient is not in fluid overload, presently on Lasix 40 mg daily plan is to continue the present management. 07/09/2018: Last ejection fraction 30-35%. Appears to be stable in this regard on po Lasix 40 mg daily. Monitoring. 07/10/18-no current issues. Patient is on carvedilol, aspirin, Lasix, digoxin. UZMA or ARB was likely stopped due to kidney injury. Consideration could be given to restarting a low-dose. 07/11/2018patient is stable from a heart failure perspective. We will continue his beta-steve, aspirin, Lasix, digoxin. He seems well diuresed, euvolemic. Patient has kidney injury and UZMA/our but not being used. (3) Pleural effusion Is this a current diagnosis for this admission?: Yes Plan: 05/19/2018-patient came in with a right-sided pleural effusion status post thoracentesis on 05/13/2018 with removal of 750 cc of fluid. Fluid analysis consistent with transudate. Which is likely secondary to CHF. Negative for infection. 05/20/2018-patient came in with right pleural effusion status post thoracentesis on 05/13/2018. The cultures are negative. 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 cultures Negative. 05/23/2018 during this hospital stay he had a right-sided thoracentesis. And 750 cc of fluid was removed. I am going to redo the chest x-ray today. 05/25/2018-status post right-sided thoracentesis. On examination decreased air entry at the right base. Probably persistent pleural effusion. 06/12/2017 status post right-sided thoracentesis with 750 cc of fluid removal on 05/13/2018. Pleural fluid analysis is consistent with transudate to effusion most likely secondary to patient's congestive heart failure. 06/30/2018 latest chest x-ray done on 06/27/2018 shows moderate right pleural effusion. Seen by sql database administrator on 06/27/2018. Plan is to continue the present management. He had a right-sided thoracentesis was done on 05/13/2019 with removal of 750 cc of fluid. 07/01/2018 on 05/13/2019 750 cc of fluid was removed after thoracentesis. Follow- up chest x-ray shows stable right pleural effusion. Patient is not in respiratory distress. Plan is to continue the present management. 07/02/2018 follow-up chest x-rays indicates stable pleural effusions. Patient is not in respiratory distress. Plan is to continue the present management. 07/03/2018-thoracentesis was done on 05/13/2019 with removal of 750 mL of fluid follow-up x-ray shows stable pleural effusions am going to repeat the chest x- ray today again. 07/04/2018-on 05/13/2019 thoracentesis was done so for 50 mL of fluid was removed. It is a transudate. Follow-up chest x-rays shows stable pleural effusions. 07/06/2018 thoracentesis was done on 05/13/2018 750 mL of fluid was removed it most likely secondary to chronic CHF. Follow-up chest x-ray shows stable pleural effusions. 07/[id number] chest x-ray shows stable small pleural effusions. 07/08/2018 status post thoracentesis on 05/13/2018 with removal of 750 mL of pleural fluid fluid analysis negative for malignancy. Most likely secondary to CHF. Follow-up x-ray shows stable pleural effusions. 07/09/2018: Remained stable with no acute issues. CHF in origin. 07/10/18-no current issues. 07/11/2018, breath sounds are clear. Pleural effusion was related to CHF. Lasix diuresis ongoing. We will continue to monitor. Patient seems euvolemic. (4) CAD (coronary artery disease) Is this a current diagnosis for this admission?: Yes -07/09/18: no current issues 07/10/18-no current issues. 07/11/2018stable, continue coronary artery disease medications (5) Hyperkalemia Is this a current diagnosis for this admission?: Yes Plan: 06/28/2018 is 5.4. He was off the Aldactone. Plan is to check a CMP today. If the potassium is still high I am going to put him on Kayexalate. 07/01/2018 patient potassium level is 5.3 yesterday. He is not on any potassium sparing diuretics. Started on Kayexalate 15 mL twice a day. 07/02/2018 latest potassium is 5.2 he was started on Kayexalate and daily basis. Plan is to recheck the labs tomorrow. 07/03/2018 latest potassium level is 5.7. Going to put him on Kayexalate 30 mg p.o. every 6 hours, started on Veltassa 8.4 gm daily. Plan to recheck the labs tomorrow. 07/04/2018-latest potassium is 5.6 yesterday it was 5.7 started on Veltassa and also on Kayexalate. But the nurse told me Kayexalate is back dated on we decided to continue Victoza. Lasix was increased to 40 mg daily still potassium is elevated with 5.6 and he is also on MiraLAX for constipation. We are going to check his potassium levels again tomorrow patient is asymptomatic. I discussed the plan with the nurse Petra she said patient is not compliant with Kayexalate and MiraLAX will try to convince him to take those medications to bring the potassium levels down. 07/05/2018-patient's potassium is persistently high above 5.4 today better compared to yesterday. Patient said he has a good bowel movement yesterday. Patient is on Veltassa, is also getting as needed Kayexalate. Plan is to recheck his labs tomorrow. 07/06/2018-potassium is persistently high 5.5 today. veltassa was increased to 25.6 g/day. Plan to repeat the labs tomorrow patient is asymptomatic. 07/07/2018-patient does have the persistently elevated potassium levels it is 5.2 today he was started on Veltassa 25.6 g daily and he was also on MiraLAX but he is refusing to take the MiraLAX. going to continue to check his chemistry panel and daily basis. 07/08/2018-patient have a persistently elevated potassium levels able 5 for the last several days we placed him on MiraLAX but he is refusing Veltassa was started, patient was placed on low potassium diet but he does not want to eat low potassium diet. Plan to repeat the potassium levels tomorrow. 07/09/2018: Improved with low potassium diet. Continue diet and monitoring. 07/10/18-seems to be resolved with low potassium diet. Continue to monitor 07/11/2018patient will continue on the low potassium diet. His potassium has been normal for the past few days. We will continue to monitor, continue veltassa. (6) DEANNA (acute kidney injury) Is this a current diagnosis for this admission?: Yes Plan: 06/30/2018-patient was admitted with acute kidney injury which was resolved. Creatinine latest one is 1.28 at baseline. Presently on Lasix 20 mg p.o. daily. Plan is to check creatinine panel tomorrow. 07/01/2018-patient was admitted with elevated creatinine levels 1.45 present creatinine is 1.38 acute kidney injury is resolved. 07/02/2018 latest creatinine is 1.5-20 Slowly. Plan to stop allopurinol and Lasix. To recheck his renal panel tomorrow. Worsening kidney function may be secondary to medications/prerenal causes. 07/03/2018-patient's latest creatinine is 1.4 it is fluctuating between 1.25-1.4. Plan is to check the daily labs. 07/04/2018-latest creatinine is 1.3 stable his baseline creatinine is around 1.28. Presently on Lasix 40 mg p.o. daily. Plan is to continue the present management. 07/05/2018-latest creatinine was 1.41 it is fluctuating between 1.3-1.4. His acute kidney injury is resolved. 07/06/2018-patient latest creatinine is 1.38-stable. 07/07/2018 patient's creatinine today is 1.31 stable. Acute kidney injury is resolved. 07/09/2018: Appears to be near baseline creatinine. 07/10/18-continues to be around baseline. 07/11/2018BUN and creatinine appear to be baseline. We will continue to kasandra norwood. (7) Gouty arthritis Is this a current diagnosis for this admission?: Yes 07/09/18- no current issues. Continue allopurinol 07/10/18-no changes to allopurinol. 07/11/2018we will continue his allopurinol, no gout related pain currently. (8) Constipation 07/09/18 -Start MiraLAX and docusate daily. Monitor closely. Does not appear to be obstructed at this time. 07/10/18- Docusate increased to 100 mg 3 times daily. MiraLAX increased to 17 g twice daily. Monitor closely. Abdomen remains soft. Mild constipation in nature. Consider stimulant laxative or going from below if constipation persist. 07/11/2018patient has had some mild constipation. He has been started on MiraLAX and Dukas 8 sodium. We will continue to monitor and check with nursing about bowel movements. He is not having abdominal pain or any distress related to constipation today. (9) Chronic Pain-patient has complaints of chronic OA pain. Increase gabapentin to 300mg tid for increased pain mgt. consider increasing to 600mg tid if needed, and try to avoid increasing narcotics. conitnues to be on benzo + narcotic 07/11/2018patient does not complain of pain today. No changes to be made. Continue to monitor for safety given that he is on a benzodiazepine and an opioid pain medication. (10) agitation -Agitation: Appears to have had an episode of agitation on 07/08 that was resolved with 5 mg of Haldol and 0.25 milligrams of Xanax. also ordered 0.25 milligrams of Xanax as needed for agitation. Monitoring. He seems to have significant expressive aphasia, but seems to be relatively in control of his behavior. Disposition: Discharge planning still ongoing.
[2018-07-11] MEDS: OXYCODONE-ACETAMINOPHEN 5-325 MG TABLET PO PRN (19:55)
[2018-07-11] MEDS: ROPINIROLE HCL 0.25 MG TABLET PO SCH (21:16)
[2018-07-12] MEDS: PATIROMER 8.4 GM SUSP PACKET PO SCH ×2 (03:08→20:39)
[2018-07-12] MEDS: GABAPENTIN 300 MG CAPSULE PO SCH ×3 (05:47→22:06)
[2018-07-12] MEDS: LANSOPRAZOLE 30 MG TAB.RAP.DR PO SCH ×2 (05:47→17:08)
[2018-07-12 08:52] LABS: ANION GAP 11 (5-19); BLOOD UREA NITROGEN 40 mg/dL (7-20); CALCIUM 9.1 mg/dL (8.4-10.2); CARBON DIOXIDE 34 mmol/L (22-30); CHLORIDE 99 mmol/L (98-107); GLUCOSE 104 mg/dL (75-110); POTASSIUM 5.1 mmol/L (3.6-5.0); SODIUM 143.9 mmol/L (137-145)
[2018-07-12] MEDS: ACETAMINOPHEN 325 MG TABLET PO SCH ×4 (09:37→22:05)
[2018-07-12] MEDS: DOCUSATE SODIUM 100 MG CAPSULE PO SCH ×3 (09:37→18:13)
[2018-07-12] MEDS: CARVEDILOL 3.125 MG TABLET PO SCH ×2 (09:37→22:06)
[2018-07-12] MEDS: PREDNISONE 10 MG TABLET PO SCH (09:37)
[2018-07-12] MEDS: ASPIRIN 81 MG TABLET, CHEWABLE PO SCH (09:37)
[2018-07-12] MEDS: POLYETHYLENE GLYCOL 3350 POWDER 17 GM/1 PACKET PO SCH ×2 (09:38→22:06)
[2018-07-12] MEDS: FUROSEMIDE 40 MG TABLET PO SCH (09:38)
[2018-07-12] MEDS: CYCLOSPORINE 0.05% OPH EMULSIO 0.4 ML DROPERETTE OU SCH (09:39)
[2018-07-12] MEDS ORDERED: FUROSEMIDE INJ/PF 20 MG/2 ML SDV IV ONE (13:31)
--- NOTE | 2018-07-12 14:05 | PDOC PROGRESS REPORT ---
Subjective Progress Note for:: 07/12/18 Subjective:: Mr. Clay is extremely difficult to understand secondary to history of CVA with residual partial expressive aphasia . I think he was saying that his nose is stuffy. He also told me that he is breathing a little heavier today. He had several episodes of urinary incontinence. He is not having chest pain. He is able to eat and drink without difficulty. Reason For Visit: CHF Physical Exam Vital Signs: Temp Pulse Resp BP Pulse Ox 98.6 F 101 H 18 130/76 H 95 07/12/18 00:00 07/12/18 00:00 07/12/18 00:00 07/12/18 00:00 07/12/18 00:00 Intake & Output 07/11/18 07/12/18 07/13/18 06:59 06:59 06:59 Intake Total 1452 472 Output Total 960 850 Balance 492 -378 General appearance: PRESENT: no acute distress, cooperative Head exam: PRESENT: atraumatic, normocephalic Eye exam: ABSENT: conjunctival injection, scleral icterus Mouth exam: PRESENT: moist Respiratory exam: PRESENT: decreased breath sounds, rales, unlabored. ABSENT: wheezes Cardiovascular exam: PRESENT: RRR. ABSENT: systolic murmur Pulses: PRESENT: normal radial pulses GI/Abdominal exam: PRESENT: normal bowel sounds, soft. ABSENT: distended, guarding, tenderness Rectal exam: PRESENT: deferred Extremities exam: PRESENT: pedal edema Musculoskeletal exam: PRESENT: ambulatory Neurological exam: PRESENT: alert, awake, oriented to person, oriented to place, oriented to situation, other - partial expressive aphasia Psychiatric exam: PRESENT: unusual affect. ABSENT: anxious Skin exam: PRESENT: dry, warm Results Laboratory Results: 07/10/18 08:29 07/12/18 08:16 07/12/18 08:16 Sodium 143.9 Potassium 5.1 H Chloride 99 Carbon Dioxide 34 H Anion Gap 11 BUN 40 H Creatinine 1.46 H Est GFR ( Amer) 59 L Est GFR (Non-Af Amer) 49 L Glucose 104 Calcium 9.1 05/11/18 05/11/18 05/11/18 09:35 09:35 09:35 Creatine Kinase 37 L CK-MB (CK-2) Troponin I 0.071 NT-Pro-B Natriuret Pep 6800 H 05/11/18 05/11/18 05/12/18 12:30 19:00 01:06 Creatine Kinase CK-MB (CK-2) Troponin I 0.067 0.064 0.050 NT-Pro-B Natriuret Pep 05/23/18 05/24/18 05/27/18 10:36 09:38 10:01 Creatine Kinase CK-MB (CK-2) Troponin I 0.060 NT-Pro-B Natriuret Pep 819 889 06/03/18 06/08/18 06/08/18 08:12 13:40 13:40 Creatine Kinase 39 L CK-MB (CK-2) 1.92 Troponin I 0.060 NT-Pro-B Natriuret Pep 1420 H 06/08/18 06/08/18 06/09/18 19:03 19:03 00:59 Creatine Kinase 36 L 34 L CK-MB (CK-2) 1.75 Troponin I 0.058 NT-Pro-B Natriuret Pep 06/09/18 06/09/18 06/09/18 00:59 08:04 08:04 Creatine Kinase 32 L CK-MB (CK-2) 1.58 1.79 Troponin I 0.063 0.064 NT-Pro-B Natriuret Pep 06/09/18 06/09/18 06/09/18 12:52 12:52 19:00 Creatine Kinase 46 L 31 L CK-MB (CK-2) 1.99 Troponin I 0.051 NT-Pro-B Natriuret Pep 06/09/18 06/25/18 07/04/18 19:00 07:35 08:21 Creatine Kinase CK-MB (CK-2) 1.80 Troponin I 0.072 0.054 NT-Pro-B Natriuret Pep 1660 H Impressions: Thoracentesis Ultrasound 05/13/18 10:06 IMPRESSION: SUCCESSFUL THORACENTESIS USING ULTRASOUND GUIDANCE. Chest X-Ray 07/03/18 00:00 IMPRESSION: Cardiomegaly. Small bibasilar effusions. Mild pulmonary vascular congestion. copyright 2010 [employer]- All Rights Reserved Assessment & Plan - Diagnosis (1) Acute on chronic systolic (congestive) heart failure Is this a current diagnosis for this admission?: Yes Plan: Today patient had bibasilar rales on exam. He is expressing that he is eating a little bit heavier today. Also his creatinine has bumped a little. I think he has a little fluid overload and have ordered Lasix 40 mg IV x1. Otherwise we will continue on his 40 mg daily and reassess tomorrow. Continue other cardiac meds, vitals stable. His dig and coreg fell off MAR and I have restarted those. (2) Acute and chronic respiratory failure with hypoxia Is this a current diagnosis for this admission?: Yes Plan: Has not had an increase in his oxygen requirement. He is at baseline from this perspective. (3) CAD (coronary artery disease) Is this a current diagnosis for this admission?: Yes Plan: Aspirin, Coreg and lavazza had fallen off of his Mar and so I reordered those - aspirin at 162 mg daily, coreg 3.125 mg twice daily and Lovaza 2 g p.o. twice daily. (4) Gouty arthritis Is this a current diagnosis for this admission?: Yes Plan: Continue allopurinol at 100 mg po BID, fell off MAR several days ago and has been restarted. (5) Hyperkalemia Is this a current diagnosis for this admission?: Yes Plan: slightly elevated today. IV Lasix x1 given and will recheck potassium in the morning. (6) Pleural effusion Is this a current diagnosis for this admission?: Yes Plan: treated earlier in hospitalization, now he on exam has bilat smaller effusions and is getting lasix 40 mg IV x 1 (7) DEANNA (acute kidney injury) Is this a current diagnosis for this admission?: Yes Plan: Slightly elevated today. We will continue to monitor, all of his cardiac meds have been restarted and he got an extra dose of Lasix today. (8) Cerebrovascular accident (CVA) Is this a current diagnosis for this admission?: Yes Plan: Patient has residual partial expressive a aphasia, aspirin and beta-steve fell off MAR and those have now been restarted.. (9) Anxiety Is this a current diagnosis for this admission?: Yes Plan: seems stable, cont his BID prn xanax at 0.25 mg. - Time Time Spent with patient: 25-34 minutes Medications reviewed and adjusted accordingly: Yes
[2018-07-12] MEDS: ALLOPURINOL 100 MG TABLET PO SCH (17:08)
[2018-07-12] MEDS: OMEGA-3 ACID ETHYL ESTERS 1 GM CAPSULE PO SCH (17:08)
[2018-07-12] MEDS: FLUTICASONE NASAL SPRAY 50 MCG/SPRY 120 SPRAY/16 GM NASL SCH (17:10)
[2018-07-12] MEDS: DIGOXIN 0.125 MG TABLET PO SCH (17:11)
[2018-07-12] MEDS ORDERED: FUROSEMIDE 40 MG TABLET PO ONE (17:30)
[2018-07-12] MEDS: OXYCODONE-ACETAMINOPHEN 5-325 MG TABLET PO PRN (17:59)
[2018-07-12] MEDS: ROPINIROLE HCL 0.25 MG TABLET PO SCH (22:07)
[2018-07-13] MEDS: LANSOPRAZOLE 30 MG TAB.RAP.DR PO SCH ×2 (05:23→18:20)
[2018-07-13] MEDS: GABAPENTIN 300 MG CAPSULE PO SCH ×2 (05:23→14:33)
[2018-07-13 08:22] LABS: HEMATOCRIT 36.1 % (37.9-51.0); HEMOGLOBIN 11.8 g/dL (13.5-17.0); MEAN CORPUSCULAR HEMOGLOBIN 27.4 pg (27.0-33.4); MEAN CORPUSCULAR HGB CONC 32.7 g/dL (32.0-36.0); MEAN CORPUSCULAR VOLUME 84 fl (80-97); PLATELET COUNT 217 10^3/uL (150-450); RED BLOOD COUNT 4.32 10^6/uL (4.35-5.55); RED CELL DISTRIBUTION WIDTH 15.5 % (11.5-14.0); WHITE BLOOD COUNT 6.8 10^3/uL (4.0-10.5)
[2018-07-13 08:48] LABS: ANION GAP 8 (5-19); BLOOD UREA NITROGEN 36 mg/dL (7-20); CALCIUM 8.8 mg/dL (8.4-10.2); CARBON DIOXIDE 34 mmol/L (22-30); CHLORIDE 101 mmol/L (98-107); GLUCOSE 92 mg/dL (75-110); POTASSIUM 4.9 mmol/L (3.6-5.0); SODIUM 142.7 mmol/L (137-145)
[2018-07-13] MEDS: DOCUSATE SODIUM 100 MG CAPSULE PO SCH ×3 (09:50→18:20)
[2018-07-13] MEDS: ACETAMINOPHEN 325 MG TABLET PO SCH ×4 (09:50→21:14)
[2018-07-13] MEDS: FLUTICASONE NASAL SPRAY 50 MCG/SPRY 120 SPRAY/16 GM NASL SCH (09:51)
[2018-07-13] MEDS: DIGOXIN 0.125 MG TABLET PO SCH (09:51)
[2018-07-13] MEDS: ASPIRIN 81 MG TABLET, ENT COATED PO SCH (09:51)
[2018-07-13] MEDS: CYCLOSPORINE 0.05% OPH EMULSIO 0.4 ML DROPERETTE OU SCH (09:52)
[2018-07-13] MEDS: PREDNISONE 10 MG TABLET PO SCH (09:52)
[2018-07-13] MEDS: ALLOPURINOL 100 MG TABLET PO SCH ×2 (09:52→18:20)
[2018-07-13] MEDS: OMEGA-3 ACID ETHYL ESTERS 1 GM CAPSULE PO SCH ×2 (09:53→18:19)
[2018-07-13] MEDS: CARVEDILOL 3.125 MG TABLET PO SCH ×2 (09:53→21:13)
[2018-07-13] MEDS: POLYETHYLENE GLYCOL 3350 POWDER 17 GM/1 PACKET PO SCH (09:54)
[2018-07-13] MEDS ORDERED: FUROSEMIDE 40 MG TABLET PO SCH (10:00)
[2018-07-13] MEDS ORDERED: FUROSEMIDE 20 MG TABLET PO SCH (10:00)
[2018-07-13] MEDS: OXYCODONE-ACETAMINOPHEN 5-325 MG TABLET PO PRN (18:18)
--- NOTE | 2018-07-13 18:28 | PDOC PROGRESS REPORT ---
Subjective Progress Note for:: 07/13/18 Subjective:: ALEX CRUZMAN is a 62 year old male who has coronary artery disease and COPD. Patient patient has history of CABG, ischemic cardiomyopathy status post AICD, chronic respiratory failure on home oxygen, prior stroke with residual aphasia who was admitted 05/11/18 for CHF exacerbation. The patient was seen on afternoon rounds. He was found sitting up to the recl iner on supplemental oxygen via nasal cannula having just completed his dinner. He reports that he is having left hand and bilateral foot pain; states it is "nerve pain." His only other complaint is that he did not get his blueberry cobbler. No concerns per nursing. Reason For Visit: CHF Physical Exam Vital Signs: Temp Pulse Resp BP Pulse Ox 97.8 F 97 20 138/80 H 97 07/13/18 16:00 07/13/18 16:00 07/13/18 16:00 07/13/18 16:00 07/13/18 16:00 Intake & Output 07/12/18 07/13/18 07/14/18 06:59 06:59 06:59 Intake Total 472 590 Output Total 850 860 Balance -378 -270 General appearance: PRESENT: no acute distress, obese, well-developed, well- nourished Head exam: PRESENT: atraumatic, normocephalic Eye exam: PRESENT: conjunctiva pink, EOMI, PERRLA. ABSENT: scleral icterus Ear exam: PRESENT: normal external ear exam Mouth exam: PRESENT: moist, tongue midline Neck exam: ABSENT: carotid bruit, JVD, lymphadenopathy, thyromegaly Respiratory exam: PRESENT: clear to auscultation rahul, symmetrical, unlabored, other - Supplemental oxygen via nasal cannula. ABSENT: rales, rhonchi, wheezes Cardiovascular exam: PRESENT: RRR. ABSENT: diastolic murmur, rubs, systolic murmur Vascular exam: PRESENT: normal capillary refill GI/Abdominal exam: PRESENT: normal bowel sounds, soft. ABSENT: distended, guarding, mass, organolmegaly, rebound, tenderness Rectal exam: PRESENT: deferred Extremities exam: PRESENT: full ROM. ABSENT: calf tenderness, clubbing, pedal edema Neurological exam: PRESENT: alert, awake, oriented to person, oriented to place, oriented to time, oriented to situation, CN II-XII grossly intact, other - Partial expressive aphasia. ABSENT: motor sensory deficit Psychiatric exam: PRESENT: normal mood, unusual affect. ABSENT: homicidal ideation, suicidal ideation Skin exam: PRESENT: dry, intact, warm. ABSENT: cyanosis, rash Results Laboratory Results: 07/13/18 08:05 07/13/18 08:05 07/13/18 07/13/18 08:05 08:05 WBC 6.8 RBC 4.32 L Hgb 11.8 L Hct 36.1 L MCV 84 MCH 27.4 MCHC 32.7 RDW 15.5 H Plt Count 217 Sodium 142.7 Potassium 4.9 Chloride 101 Carbon Dioxide 34 H Anion Gap 8 BUN 36 H Creatinine 1.30 H Est GFR ( Amer) > 60 Est GFR (Non-Af Amer) 56 L Glucose 92 Calcium 8.8 Magnesium 2.1 05/11/18 05/11/18 05/11/18 09:35 09:35 09:35 Creatine Kinase 37 L CK-MB (CK-2) Troponin I 0.071 NT-Pro-B Natriuret Pep 6800 H 05/11/18 05/11/18 05/12/18 12:30 19:00 01:06 Creatine Kinase CK-MB (CK-2) Troponin I 0.067 0.064 0.050 NT-Pro-B Natriuret Pep 05/23/18 05/24/18 05/27/18 10:36 09:38 10:01 Creatine Kinase CK-MB (CK-2) Troponin I 0.060 NT-Pro-B Natriuret Pep 819 889 06/03/18 06/08/18 06/08/18 08:12 13:40 13:40 Creatine Kinase 39 L CK-MB (CK-2) 1.92 Troponin I 0.060 NT-Pro-B Natriuret Pep 1420 H 06/08/18 06/08/18 06/09/18 19:03 19:03 00:59 Creatine Kinase 36 L 34 L CK-MB (CK-2) 1.75 Troponin I 0.058 NT-Pro-B Natriuret Pep 06/09/18 06/09/18 06/09/18 00:59 08:04 08:04 Creatine Kinase 32 L CK-MB (CK-2) 1.58 1.79 Troponin I 0.063 0.064 NT-Pro-B Natriuret Pep 06/09/18 06/09/18 06/09/18 12:52 12:52 19:00 Creatine Kinase 46 L 31 L CK-MB (CK-2) 1.99 Troponin I 0.051 NT-Pro-B Natriuret Pep 06/09/18 06/25/18 07/04/18 19:00 07:35 08:21 Creatine Kinase CK-MB (CK-2) 1.80 Troponin I 0.072 0.054 NT-Pro-B Natriuret Pep 1660 H Impressions: Thoracentesis Ultrasound 05/13/18 10:06 IMPRESSION: SUCCESSFUL THORACENTESIS USING ULTRASOUND GUIDANCE. Chest X-Ray 07/03/18 00:00 IMPRESSION: Cardiomegaly. Small bibasilar effusions. Mild pulmonary vascular congestion. copyright 2010 [employer]- All Rights Reserved Assessment & Plan - Diagnosis (1) Acute on chronic systolic (congestive) heart failure Is this a current diagnosis for this admission?: Yes Plan: Improved; sounds are clear today, on his baseline oxygen requirement, no dependent edema noted. Yesterday he did receive a one-time Lasix 40 mg IV dose for bibasilar rales and increased work of breathing. Continue cardiac diet. Daily weights. Continue carvedilol, digoxin, lovastatin and aspirin. (2) DEANNA (acute kidney injury) Is this a current diagnosis for this admission?: Yes Plan: Creatinine slightly elevated; 1.30, actually down from 1.46 yesterday when he received IV Lasix. BUN is also improved to 36 from 40. Continue to monitor with daily chemistries. Most of his cardiac medications had fallen off the more; Coreg and digoxin resumed yesterday. Avoid nephrotoxic medications as able. He is currently on Gabapentin, furosemide, and allopurinol. Encourage p.o. fluids. Continue daily chemistries. (3) Acute and chronic respiratory failure with hypoxia Is this a current diagnosis for this admission?: Yes Plan: Acute exacerbation is resolved. At baseline. Continue supplemental oxygen and BiPAP as needed to maintain saturations >89% Optimize cardiac output; medications as above. (4) CAD (coronary artery disease) Is this a current diagnosis for this admission?: Yes Plan: Continue Coreg, Levoxyl, and aspirin. Cardiac diet. (5) Gouty arthritis Is this a current diagnosis for this admission?: Yes Plan: Continue allopurinol 100 mg twice daily. Evening gabapentin dose increased to 600 mg, continue 300 mg every morning and at 1400. Currently on prednisone 10 mg daily; consider a short-term increase for discomfort if arthritic pain continues to worsen. Tylenol and oxycodone as needed for pain. (6) Hyperkalemia Is this a current diagnosis for this admission?: Yes Plan: Resolved. Encourage p.o. fluids. Continue to monitor with daily chemistries. (7) Pleural effusion Is this a current diagnosis for this admission?: Yes Plan: Resolved. Secondary to CHF exacerbation. Lung sounds are clear throughout. On his baseline oxygen requirement. (8) Anxiety Is this a current diagnosis for this admission?: Yes Plan: Stable; continue Xanax 0.25 mg twice daily as needed. 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 Continue aspirin, Lavaza beta-steve therapy. - Time Time Spent with patient: 15-24 minutes Medications reviewed and adjusted accordingly: Yes Anticipated discharge: SNF Within: when bed available
[2018-07-13] MEDS: ROPINIROLE HCL 0.25 MG TABLET PO SCH (21:12)
[2018-07-14] MEDS: POLYETHYLENE GLYCOL 3350 POWDER 17 GM/1 PACKET PO SCH ×3 (02:58→22:38)
[2018-07-14] MEDS: PATIROMER 8.4 GM SUSP PACKET PO SCH ×2 (02:58→21:58)
[2018-07-14] MEDS: GABAPENTIN 300 MG CAPSULE PO SCH ×4 (02:58→22:38)
[2018-07-14] MEDS: LANSOPRAZOLE 30 MG TAB.RAP.DR PO SCH ×2 (05:11→17:17)
[2018-07-14 08:43] LABS: ANION GAP 9 (5-19); BLOOD UREA NITROGEN 37 mg/dL (7-20); CALCIUM 8.8 mg/dL (8.4-10.2); CARBON DIOXIDE 34 mmol/L (22-30); CHLORIDE 100 mmol/L (98-107); GLUCOSE 99 mg/dL (75-110); POTASSIUM 4.8 mmol/L (3.6-5.0); SODIUM 142.5 mmol/L (137-145)
[2018-07-14] MEDS: OMEGA-3 ACID ETHYL ESTERS 1 GM CAPSULE PO SCH ×2 (09:12→17:58)
[2018-07-14] MEDS: FUROSEMIDE 20 MG TABLET PO SCH ×2 (09:13→17:18)
[2018-07-14] MEDS: PREDNISONE 10 MG TABLET PO SCH (09:13)
[2018-07-14] MEDS: DOCUSATE SODIUM 100 MG CAPSULE PO SCH ×3 (09:14→17:17)
[2018-07-14] MEDS: CARVEDILOL 3.125 MG TABLET PO SCH ×2 (09:15→22:38)
[2018-07-14] MEDS: ALLOPURINOL 100 MG TABLET PO SCH ×2 (09:15→17:17)
[2018-07-14] MEDS: FLUTICASONE NASAL SPRAY 50 MCG/SPRY 120 SPRAY/16 GM NASL SCH (09:15)
[2018-07-14] MEDS: ASPIRIN 81 MG TABLET, ENT COATED PO SCH (09:15)
[2018-07-14] MEDS: CYCLOSPORINE 0.05% OPH EMULSIO 0.4 ML DROPERETTE OU SCH (09:17)
[2018-07-14] MEDS: DIGOXIN 0.125 MG TABLET PO SCH (09:18)
[2018-07-14] MEDS: LIDOCAINE 5% (700 MG) TRANSDERMAL ADH..PATCH TP SCH (09:18)
[2018-07-14] MEDS: ACETAMINOPHEN 325 MG TABLET PO SCH ×3 (11:40→23:12)
[2018-07-14] MEDS: OXYCODONE-ACETAMINOPHEN 5-325 MG TABLET PO PRN (14:22)
--- NOTE | 2018-07-14 20:45 | PDOC PROGRESS REPORT ---
Subjective Progress Note for:: 07/14/18 Subjective:: ALEX Guadarrama KNIGHT is a 62 year old male who has coronary artery disease and COPD. Patient patient has history of CABG, ischemic cardiomyopathy status post AICD, chronic respiratory failure on home oxygen, prior stroke with residual aphasia who was admitted 05/11/18 for CHF exacerbation. The patient is seen on rounds, he is resting comfortably in bedside recliner on nasal cannula. His only complaint today mild pain to L hand. Gabapentin increased yesterday, plan to resume patient's percocet. Patient is currently awaiting placement to a [facility]dc care facility. Discharge planning is assisting with placement,. Reason For Visit: CHF Physical Exam Vital Signs: Temp Pulse Resp BP Pulse Ox 97.9 F 95 17 121/71 98 07/13/18 20:00 07/13/18 20:00 07/13/18 20:00 07/13/18 20:00 07/14/18 01:16 Intake & Output 07/12/18 07/13/18 07/14/18 06:59 06:59 06:59 Intake Total 951 122 3087 Output Total 850 860 625 Balance -378 -270 1055 Results Laboratory Results: 07/13/18 08:05 07/13/18 08:05 07/13/18 07/13/18 08:05 08:05 WBC 6.8 RBC 4.32 L Hgb 11.8 L Hct 36.1 L MCV 84 MCH 27.4 MCHC 32.7 RDW 15.5 H Plt Count 217 Sodium 142.7 Potassium 4.9 Chloride 101 Carbon Dioxide 34 H Anion Gap 8 BUN 36 H Creatinine 1.30 H Est GFR ( Amer) > 60 Est GFR (Non-Af Amer) 56 L Glucose 92 Calcium 8.8 Magnesium 2.1 05/11/18 05/11/18 05/11/18 09:35 09:35 09:35 Creatine Kinase 37 L CK-MB (CK-2) Troponin I 0.071 NT-Pro-B Natriuret Pep 6800 H 05/11/18 05/11/18 05/12/18 12:30 19:00 01:06 Creatine Kinase CK-MB (CK-2) Troponin I 0.067 0.064 0.050 NT-Pro-B Natriuret Pep 05/23/18 05/24/18 05/27/18 10:36 09:38 10:01 Creatine Kinase CK-MB (CK-2) Troponin I 0.060 NT-Pro-B Natriuret Pep 819 889 06/03/18 06/08/18 06/08/18 08:12 13:40 13:40 Creatine Kinase 39 L CK-MB (CK-2) 1.92 Troponin I 0.060 NT-Pro-B Natriuret Pep 1420 H 06/08/18 06/08/18 06/09/18 19:03 19:03 00:59 Creatine Kinase 36 L 34 L CK-MB (CK-2) 1.75 Troponin I 0.058 NT-Pro-B Natriuret Pep 06/09/18 06/09/18 06/09/18 00:59 08:04 08:04 Creatine Kinase 32 L CK-MB (CK-2) 1.58 1.79 Troponin I 0.063 0.064 NT-Pro-B Natriuret Pep 06/09/18 06/09/18 06/09/18 12:52 12:52 19:00 Creatine Kinase 46 L 31 L CK-MB (CK-2) 1.99 Troponin I 0.051 NT-Pro-B Natriuret Pep 06/09/18 06/25/18 07/04/18 19:00 07:35 08:21 Creatine Kinase CK-MB (CK-2) 1.80 Troponin I 0.072 0.054 NT-Pro-B Natriuret Pep 1660 H Impressions: Thoracentesis Ultrasound 05/13/18 10:06 IMPRESSION: SUCCESSFUL THORACENTESIS USING ULTRASOUND GUIDANCE. Chest X-Ray 07/03/18 00:00 IMPRESSION: Cardiomegaly. Small bibasilar effusions. Mild pulmonary vascular congestion. copyright 2010 [employer]- All Rights Reserved Assessment & Plan - Diagnosis (1) Acute on chronic systolic (congestive) heart failure Is this a current diagnosis for this admission?: Yes Plan: Improved; sounds are clear today, on his baseline oxygen requirement, no dependent edema noted. Continue cardiac diet. Daily weights. Continue carvedilol, digoxin, lovastatin and aspirin. (2) DEANNA (acute kidney injury) Is this a current diagnosis for this admission?: Yes Plan: Within baseline Creatinine slightly elevated; 1.4, actually down from 1.46 when he received IV Lasix. Continue to monitor with daily chemistries. Continue Coreg and digoxin. Avoid nephrotoxic medications as able. He is currently on Gabapentin, furosemide, and allopurinol. Encourage p.o. fluids. Continue daily chemistries. (3) Acute and chronic respiratory failure with hypoxia Is this a current diagnosis for this admission?: Yes Plan: Acute exacerbation is resolved. At baseline. Continue supplemental oxygen and BiPAP as needed to maintain saturations >89% Optimize cardiac output; medications as above. (4) CAD (coronary artery disease) Is this a current diagnosis for this admission?: Yes Plan: Continue Coreg, Levoxyl, and aspirin. Cardiac diet. (5) Gouty arthritis Is this a current diagnosis for this admission?: Yes Plan: Continue allopurinol 100 mg twice daily. Evening gabapentin dose increased to 600 mg, continue 300 mg every morning and at 1400. Currently on prednisone 10 mg daily Tylenol and oxycodone as needed for pain. (6) Hyperkalemia Is this a current diagnosis for this admission?: Yes Plan: Resolved. Encourage p.o. fluids. Continue to monitor with daily chemistries. (7) Pleural effusion Is this a current diagnosis for this admission?: Yes Plan: Resolved. Secondary to CHF exacerbation. Lung sounds are clear throughout. On his baseline oxygen requirement. (8) Anxiety Is this a current diagnosis for this admission?: Yes Plan: Stable; continue Xanax 0.25 mg twice daily as needed. 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 Continue aspirin, Lavaza, beta-steve therapy. - Time Time Spent with patient: 15-24 minutes Medications reviewed and adjusted accordingly: Yes Anticipated discharge: SNF Within: when bed available - Inpatient Certification Based on my medical assessment, after consideration of the patient's comorbidities, presenting symptoms, or acuity I expect that the services needed warrant INPATIENT care.: Yes I certify that my determination is in accordance with my understanding of Medicare's requirements for reasonable and necessary INPATIENT services [42 CFR 412.3e].: Yes Medical Necessity: Risk of Complication if Not Cared For in Hospital - Plan Summary Plan Summary: AWAITING PLACEMENT TO [facility]
[2018-07-14] MEDS: ROPINIROLE HCL 0.25 MG TABLET PO SCH (22:39)
[2018-07-15] MEDS: GABAPENTIN 300 MG CAPSULE PO SCH ×3 (08:47→23:58)
[2018-07-15] MEDS: ALPRAZOLAM 0.25 MG TABLET PO PRN (08:47)
[2018-07-15] MEDS: LANSOPRAZOLE 30 MG TAB.RAP.DR PO SCH ×2 (08:47→19:00)
[2018-07-15] MEDS: ACETAMINOPHEN 325 MG TABLET PO SCH ×4 (08:47→23:58)
[2018-07-15] MEDS: DOCUSATE SODIUM 100 MG CAPSULE PO SCH ×3 (09:14→19:00)
[2018-07-15] MEDS: OMEGA-3 ACID ETHYL ESTERS 1 GM CAPSULE PO SCH ×2 (09:15→18:56)
[2018-07-15] MEDS: DIGOXIN 0.125 MG TABLET PO SCH (09:15)
[2018-07-15] MEDS: ALLOPURINOL 100 MG TABLET PO SCH ×2 (09:15→19:00)
[2018-07-15] MEDS: FUROSEMIDE 20 MG TABLET PO SCH ×2 (09:16→19:00)
[2018-07-15] MEDS: CARVEDILOL 3.125 MG TABLET PO SCH ×2 (09:16→23:59)
[2018-07-15] MEDS: PREDNISONE 10 MG TABLET PO SCH (09:17)
[2018-07-15] MEDS: FLUTICASONE NASAL SPRAY 50 MCG/SPRY 120 SPRAY/16 GM NASL SCH (09:17)
[2018-07-15] MEDS: ASPIRIN 81 MG TABLET, ENT COATED PO SCH (09:17)
[2018-07-15] MEDS: POLYETHYLENE GLYCOL 3350 POWDER 17 GM/1 PACKET PO SCH ×2 (09:17→23:59)
[2018-07-15] MEDS: LIDOCAINE 5% (700 MG) TRANSDERMAL ADH..PATCH TP SCH (09:19)
[2018-07-15] MEDS: CYCLOSPORINE 0.05% OPH EMULSIO 0.4 ML DROPERETTE OU SCH (09:20)
--- NOTE | 2018-07-15 15:29 | PDOC PROGRESS REPORT ---
Subjective Progress Note for:: 07/15/18 Subjective:: ALEX Guadarrama KNIGHT is a 62 year old male who has coronary artery disease and COPD. Patient patient has history of CABG, ischemic cardiomyopathy status post AICD, chronic respiratory failure on home oxygen, prior stroke with residual aphasia who was admitted 05/11/18 for CHF exacerbation. The patient is seen on rounds, he is resting comfortably in bedside recliner on nasal cannula. He has no complaints today, nursing staff denies concerns. Patient is currently awaiting placement to a retirement care facility. Discharge planning is assisting with placement. Reason For Visit: CHF Physical Exam Vital Signs: Temp Pulse Resp BP Pulse Ox 98.7 F 99 22 H 108/64 97 07/14/18 20:00 07/14/18 20:00 07/15/18 09:56 07/14/18 20:00 07/15/18 09:56 Intake & Output 07/14/18 07/15/18 07/16/18 06:59 06:59 06:59 Intake Total 1680 1386 Output Total 625 800 Balance 1055 586 Weight 86.6 kg General appearance: PRESENT: no acute distress, well-developed, well-nourished Eye exam: PRESENT: conjunctiva pink, PERRLA Mouth exam: PRESENT: moist, tongue midline Neck exam: PRESENT: full ROM Respiratory exam: PRESENT: clear to auscultation rahul, symmetrical, unlabored Cardiovascular exam: PRESENT: systolic murmur Pulses: PRESENT: normal radial pulses Vascular exam: PRESENT: normal capillary refill GI/Abdominal exam: PRESENT: soft. ABSENT: distended, tenderness Rectal exam: PRESENT: deferred Extremities exam: PRESENT: full ROM, pedal edema - mild Musculoskeletal exam: PRESENT: ambulatory, full ROM Neurological exam: PRESENT: alert, awake, oriented to person, oriented to place, oriented to time, oriented to situation Psychiatric exam: ABSENT: homicidal ideation, manic, suicidal ideation Skin exam: PRESENT: dry, intact, normal color Results Laboratory Results: 07/13/18 08:05 07/14/18 08:07 05/11/18 05/11/18 05/11/18 09:35 09:35 09:35 Creatine Kinase 37 L CK-MB (CK-2) Troponin I 0.071 NT-Pro-B Natriuret Pep 6800 H 05/11/18 05/11/18 05/12/18 12:30 19:00 01:06 Creatine Kinase CK-MB (CK-2) Troponin I 0.067 0.064 0.050 NT-Pro-B Natriuret Pep 05/23/18 05/24/18 05/27/18 10:36 09:38 10:01 Creatine Kinase CK-MB (CK-2) Troponin I 0.060 NT-Pro-B Natriuret Pep 819 889 06/03/18 06/08/18 06/08/18 08:12 13:40 13:40 Creatine Kinase 39 L CK-MB (CK-2) 1.92 Troponin I 0.060 NT-Pro-B Natriuret Pep 1420 H 06/08/18 06/08/18 06/09/18 19:03 19:03 00:59 Creatine Kinase 36 L 34 L CK-MB (CK-2) 1.75 Troponin I 0.058 NT-Pro-B Natriuret Pep 06/09/18 06/09/18 06/09/18 00:59 08:04 08:04 Creatine Kinase 32 L CK-MB (CK-2) 1.58 1.79 Troponin I 0.063 0.064 NT-Pro-B Natriuret Pep 06/09/18 06/09/18 06/09/18 12:52 12:52 19:00 Creatine Kinase 46 L 31 L CK-MB (CK-2) 1.99 Troponin I 0.051 NT-Pro-B Natriuret Pep 06/09/18 06/25/18 07/04/18 19:00 07:35 08:21 Creatine Kinase CK-MB (CK-2) 1.80 Troponin I 0.072 0.054 NT-Pro-B Natriuret Pep 1660 H Impressions: Thoracentesis Ultrasound 05/13/18 10:06 IMPRESSION: SUCCESSFUL THORACENTESIS USING ULTRASOUND GUIDANCE. Chest X-Ray 07/03/18 00:00 IMPRESSION: Cardiomegaly. Small bibasilar effusions. Mild pulmonary vascular congestion. copyright 2010 [employer]- All Rights Reserved Status: Imported from PACS Assessment & Plan - Diagnosis (1) Acute on chronic systolic (congestive) heart failure Is this a current diagnosis for this admission?: Yes Plan: Improved; sounds are clear today, on his baseline oxygen requirement, no dependent edema noted. Continue cardiac diet. Daily weights. Continue carvedilol, digoxin, lovastatin and aspirin. (2) DEANNA (acute kidney injury) Is this a current diagnosis for this admission?: Yes Plan: Within baseline Creatinine slightly elevated; 1.4, actually down from 1.46 when he received IV Lasix. Continue to monitor with daily chemistries. Continue Coreg and digoxin. Avoid nephrotoxic medications as able. He is currently on Gabapentin, furosemide, and allopurinol. Encourage p.o. fluids. Continue daily chemistries. (3) Acute and chronic respiratory failure with hypoxia Is this a current diagnosis for this admission?: Yes Plan: Acute exacerbation is resolved. At baseline. Continue supplemental oxygen and BiPAP as needed to maintain saturations >89% Optimize cardiac output; medications as above. (4) CAD (coronary artery disease) Is this a current diagnosis for this admission?: Yes Plan: Continue Coreg, Levoxyl, and aspirin. Cardiac diet. (5) Gouty arthritis Is this a current diagnosis for this admission?: Yes Plan: Continue allopurinol 100 mg twice daily. Evening gabapentin dose increased to 600 mg, continue 300 mg every morning and at 1400. Currently on prednisone 10 mg daily Tylenol and oxycodone as needed for pain. (6) Hyperkalemia Is this a current diagnosis for this admission?: Yes Plan: Resolved. Encourage p.o. fluids. Continue to monitor with daily chemistries. (7) Pleural effusion Is this a current diagnosis for this admission?: Yes Plan: Resolved. Secondary to CHF exacerbation. Lung sounds are clear throughout. On his baseline oxygen requirement. (8) Anxiety Is this a current diagnosis for this admission?: Yes Plan: Stable; continue Xanax 0.25 mg twice daily as needed. 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 Continue aspirin, Lavaza, beta-steve therapy. - Time Time Spent with patient: 15-24 minutes Anticipated discharge: SNF Within: when bed available - Inpatient Certification Based on my medical assessment, after consideration of the patient's comorbidities, presenting symptoms, or acuity I expect that the services needed warrant INPATIENT care.: Yes I certify that my determination is in accordance with my understanding of Medicare's requirements for reasonable and necessary INPATIENT services [42 CFR 412.3e].: Yes Medical Necessity: Risk of Complication if Not Cared For in Hospital - Plan Summary Plan Summary: ATTEMPTING TO LOCATE CAREGIVER WHO HAS ACCESS TO PATIENT'S WALLET. PSYCH HAS DEEMED THE PATIENT COMPETENT. MEDICALLY, THE PATIENT IS CLEARED BUT HE HAS NO HOME (DESTROYED IN [facility]).
[2018-07-15] MEDS: PATIROMER 8.4 GM SUSP PACKET PO SCH (20:38)
[2018-07-16] MEDS: ROPINIROLE HCL 0.25 MG TABLET PO SCH
[2018-07-16] MEDS: POLYETHYLENE GLYCOL 3350 POWDER 17 GM/1 PACKET PO SCH ×2 (09:06→21:35)
[2018-07-16] MEDS: DIGOXIN 0.125 MG TABLET PO SCH (09:08)
[2018-07-16] MEDS: FLUTICASONE NASAL SPRAY 50 MCG/SPRY 120 SPRAY/16 GM NASL SCH (09:09)
[2018-07-16] MEDS: GABAPENTIN 300 MG CAPSULE PO SCH ×3 (09:10→21:35)
[2018-07-16] MEDS: PREDNISONE 10 MG TABLET PO SCH (09:10)
[2018-07-16] MEDS: ALLOPURINOL 100 MG TABLET PO SCH ×2 (09:10→17:19)
[2018-07-16] MEDS: ASPIRIN 81 MG TABLET, ENT COATED PO SCH (09:10)
[2018-07-16] MEDS: OMEGA-3 ACID ETHYL ESTERS 1 GM CAPSULE PO SCH ×2 (09:10→17:19)
[2018-07-16] MEDS: DOCUSATE SODIUM 100 MG CAPSULE PO SCH ×3 (09:10→17:19)
[2018-07-16] MEDS: ACETAMINOPHEN 325 MG TABLET PO SCH ×4 (09:11→23:35)
[2018-07-16] MEDS: LANSOPRAZOLE 30 MG TAB.RAP.DR PO SCH ×2 (09:11→17:19)
[2018-07-16] MEDS: FUROSEMIDE 20 MG TABLET PO SCH ×2 (09:11→17:19)
[2018-07-16] MEDS: CARVEDILOL 3.125 MG TABLET PO SCH ×2 (09:12→21:36)
[2018-07-16] MEDS: CYCLOSPORINE 0.05% OPH EMULSIO 0.4 ML DROPERETTE OU SCH (09:13)
[2018-07-16] MEDS: LIDOCAINE 5% (700 MG) TRANSDERMAL ADH..PATCH TP SCH (09:13)
[2018-07-16] MEDS ORDERED: PREDNISONE 10 MG TABLET PO SCH (10:00)
[2018-07-16] MEDS: PREDNISONE 5 MG TABLET PO SCH (11:37)
[2018-07-16] MEDS: ALPRAZOLAM 0.25 MG TABLET PO PRN (11:38)
--- NOTE | 2018-07-16 21:00 | PDOC PROGRESS REPORT ---
Subjective Progress Note for:: 07/16/18 Subjective:: ALEX CRUZMAN is a 62 year old male who has coronary artery disease and COPD. Patient patient has history of CABG, ischemic cardiomyopathy status post AICD, chronic respiratory failure on home oxygen, prior stroke with residual aphasia who was admitted 05/11/18 for CHF exacerbation. The patient is seen on rounds, he is resting comfortably in bedside recliner on nasal cannula. He has no complaints today, nursing staff verbalized concerns about the patient's anxiety. Reading through previous Psych evaluation, plan to initiate Buspar based on their recommendation. 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 He requires admission at [facility] for his O2 requirements (nasal cannula and BIPAP) and for being without domicile. The patient aso requires a great deal of assistance with managing his medications. This cannot be managed at home without assistance from a caregiver. Discharge planning is assisting with placement. Reason For Visit: CHF Physical Exam Vital Signs: Temp Pulse Resp BP Pulse Ox 97.5 F 84 16 135/70 H 98 07/16/18 16:35 07/16/18 16:35 07/16/18 16:35 07/16/18 16:35 07/16/18 16:35 Intake & Output 07/15/18 07/16/18 07/17/18 06:59 06:59 06:59 Intake Total 1386 1590 436 Output Total 800 1250 500 Balance 586 340 -64 Weight 86.6 kg General appearance: PRESENT: no acute distress Head exam: PRESENT: atraumatic Eye exam: PRESENT: conjunctiva pink, PERRLA Mouth exam: PRESENT: moist, tongue midline Teeth exam: PRESENT: poor dentation Neck exam: PRESENT: full ROM Respiratory exam: PRESENT: clear to auscultation rahul, decreased breath sounds - diminished bilaterally in the bases, symmetrical, unlabored - REQUIRES NASAL CANNULA Cardiovascular exam: PRESENT: irregular rhythm Pulses: PRESENT: normal radial pulses Vascular exam: PRESENT: normal capillary refill GI/Abdominal exam: PRESENT: soft. ABSENT: tenderness Rectal exam: PRESENT: deferred Extremities exam: PRESENT: full ROM, pedal edema - MILD PEDAL EDEMA Musculoskeletal exam: PRESENT: ambulatory, full ROM, normal inspection Neurological exam: PRESENT: alert, awake, oriented to person, oriented to place, oriented to time, oriented to situation Psychiatric exam: PRESENT: anxious Skin exam: PRESENT: dry, intact Results Laboratory Results: 07/13/18 08:05 07/14/18 08:07 05/11/18 05/11/18 05/11/18 09:35 09:35 09:35 Creatine Kinase 37 L CK-MB (CK-2) Troponin I 0.071 NT-Pro-B Natriuret Pep 6800 H 05/11/18 05/11/18 05/12/18 12:30 19:00 01:06 Creatine Kinase CK-MB (CK-2) Troponin I 0.067 0.064 0.050 NT-Pro-B Natriuret Pep 05/23/18 05/24/18 05/27/18 10:36 09:38 10:01 Creatine Kinase CK-MB (CK-2) Troponin I 0.060 NT-Pro-B Natriuret Pep 819 889 06/03/18 06/08/18 06/08/18 08:12 13:40 13:40 Creatine Kinase 39 L CK-MB (CK-2) 1.92 Troponin I 0.060 NT-Pro-B Natriuret Pep 1420 H 06/08/18 06/08/18 06/09/18 19:03 19:03 00:59 Creatine Kinase 36 L 34 L CK-MB (CK-2) 1.75 Troponin I 0.058 NT-Pro-B Natriuret Pep 06/09/18 06/09/18 06/09/18 00:59 08:04 08:04 Creatine Kinase 32 L CK-MB (CK-2) 1.58 1.79 Troponin I 0.063 0.064 NT-Pro-B Natriuret Pep 06/09/18 06/09/18 06/09/18 12:52 12:52 19:00 Creatine Kinase 46 L 31 L CK-MB (CK-2) 1.99 Troponin I 0.051 NT-Pro-B Natriuret Pep 06/09/18 06/25/18 07/04/18 19:00 07:35 08:21 Creatine Kinase CK-MB (CK-2) 1.80 Troponin I 0.072 0.054 NT-Pro-B Natriuret Pep 1660 H Impressions: Thoracentesis Ultrasound 05/13/18 10:06 IMPRESSION: SUCCESSFUL THORACENTESIS USING ULTRASOUND GUIDANCE. Chest X-Ray 07/03/18 00:00 IMPRESSION: Cardiomegaly. Small bibasilar effusions. Mild pulmonary vascular congestion. copyright 2010 [employer]- All Rights Reserved Status: Imported from PACS Assessment & Plan - Diagnosis (1) Acute on chronic systolic (congestive) heart failure Is this a current diagnosis for this admission?: Yes Plan: Improved; sounds are clear today, on his baseline oxygen requirement, no dependent edema noted. Continue cardiac diet. Daily weights. Continue carvedilol, digoxin, lovastatin and aspirin. (2) DEANNA (acute kidney injury) Is this a current diagnosis for this admission?: Yes Plan: Within baseline Creatinine slightly elevated; 1.4, actually down from 1.46 when he received IV Lasix. Continue to monitor with daily chemistries. Continue Coreg and digoxin. Avoid nephrotoxic medications as able. He is currently on Gabapentin, furosemide, and allopurinol. Encourage p.o. fluids. Continue daily chemistries. (3) Acute and chronic respiratory failure with hypoxia Is this a current diagnosis for this admission?: Yes Plan: Acute exacerbation is resolved. At baseline. Continue supplemental oxygen and BiPAP as needed to maintain saturations >89% Optimize cardiac output; medications as above. (4) CAD (coronary artery disease) Is this a current diagnosis for this admission?: Yes Plan: Continue Coreg, Levoxyl, and aspirin. Cardiac diet. (5) Gouty arthritis Is this a current diagnosis for this admission?: Yes Plan: Continue allopurinol 100 mg twice daily. Evening gabapentin dose increased to 600 mg, continue 300 mg every morning and at 1400. Currently on prednisone 10 mg daily Tylenol and oxycodone as needed for pain. (6) Hyperkalemia Is this a current diagnosis for this admission?: Yes Plan: Resolved. Encourage p.o. fluids. Continue to monitor with daily chemistries. (7) Pleural effusion Is this a current diagnosis for this admission?: Yes Plan: Resolved. Secondary to CHF exacerbation. Lung sounds are clear throughout. On his baseline oxygen requirement. (8) Anxiety Is this a current diagnosis for this admission?: Yes Plan: Stable; continue Xanax 0.25 mg twice daily as needed. Initiated Buspar 10 mg PO BID for anxiety per Psych's previous recommendations Additionally, initiated seroquel QHS for insomnia and nighttime agitation. 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 Continue aspirin, Lavaza, beta-steve therapy. - Time Time Spent with patient: 15-24 minutes Medications reviewed and adjusted accordingly: Yes Anticipated discharge: SNF - Inpatient Certification Based on my medical assessment, after consideration of the patient's comorbidities, presenting symptoms, or acuity I expect that the services needed warrant INPATIENT care.: Yes I certify that my determination is in accordance with my understanding of Medicare's requirements for reasonable and necessary INPATIENT services [42 CFR 412.3e].: Yes Medical Necessity: Need For Continuous Telemetry Monitoring
[2018-07-16] MEDS: PATIROMER 8.4 GM SUSP PACKET PO SCH (21:05)
[2018-07-16] MEDS: OXYCODONE-ACETAMINOPHEN 5-325 MG TABLET PO PRN (21:35)
[2018-07-16] MEDS: QUETIAPINE FUMARATE 25 MG TABLET PO SCH (21:36)
[2018-07-16] MEDS: BUSPIRONE HCL 10 MG TABLET PO SCH (21:36)
[2018-07-17] MEDS: LANSOPRAZOLE 30 MG TAB.RAP.DR PO SCH ×2 (11:49→19:40)
[2018-07-17] MEDS: GABAPENTIN 300 MG CAPSULE PO SCH ×3 (11:49→21:03)
[2018-07-17] MEDS: ALPRAZOLAM 0.25 MG TABLET PO PRN (11:49)
[2018-07-17] MEDS: ACETAMINOPHEN 325 MG TABLET PO SCH ×3 (11:49→19:41)
[2018-07-17] MEDS: BUSPIRONE HCL 10 MG TABLET PO SCH ×3 (11:50→21:03)
[2018-07-17] MEDS: DOCUSATE SODIUM 100 MG CAPSULE PO SCH ×3 (11:53→19:40)
[2018-07-17] MEDS: POLYETHYLENE GLYCOL 3350 POWDER 17 GM/1 PACKET PO SCH ×2 (11:53→21:05)
[2018-07-17] MEDS: OMEGA-3 ACID ETHYL ESTERS 1 GM CAPSULE PO SCH ×2 (11:53→19:40)
[2018-07-17] MEDS: DIGOXIN 0.125 MG TABLET PO SCH (11:54)
[2018-07-17] MEDS: CARVEDILOL 3.125 MG TABLET PO SCH ×2 (11:55→21:03)
[2018-07-17] MEDS: ASPIRIN 81 MG TABLET, ENT COATED PO SCH (11:55)
[2018-07-17] MEDS: FUROSEMIDE 20 MG TABLET PO SCH ×2 (11:56→19:40)
[2018-07-17] MEDS: ALLOPURINOL 100 MG TABLET PO SCH ×2 (11:57→19:40)
[2018-07-17] MEDS: PREDNISONE 5 MG TABLET PO SCH (11:58)
[2018-07-17] MEDS: LIDOCAINE 5% (700 MG) TRANSDERMAL ADH..PATCH TP SCH (11:59)
[2018-07-17] MEDS: FLUTICASONE NASAL SPRAY 50 MCG/SPRY 120 SPRAY/16 GM NASL SCH (19:46)
[2018-07-17] MEDS: PATIROMER 8.4 GM SUSP PACKET PO SCH (19:59)
[2018-07-17] MEDS: OXYCODONE-ACETAMINOPHEN 5-325 MG TABLET PO PRN (20:38)
[2018-07-17] MEDS: QUETIAPINE FUMARATE 25 MG TABLET PO SCH (21:05)
--- NOTE | 2018-07-17 21:23 | PDOC PROGRESS REPORT ---
Subjective Progress Note for:: 07/17/18 Subjective:: ALEX CRUZMAN is a 62 year old male who has coronary artery disease and COPD. Patient patient has history of CABG, ischemic cardiomyopathy status post AICD, chronic respiratory failure on home oxygen, prior stroke with residual aphasia who was admitted 05/11/18 for CHF exacerbation. The patient is seen on rounds, he is resting comfortably in bedside recliner on nasal cannula. Restarted Buspar yesterday, patient seems calm today. 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 He requires admission at [facility] for his O2 requirements (nasal cannula and BIPAP) and for being without domicile. The patient also requires a great deal of assistance with managing his medications. This cannot be managed at home without assistance from a caregiver. Discharge planning is assisting with placement. Reason For Visit: CHF Physical Exam Vital Signs: Temp Pulse Resp BP Pulse Ox 97.6 F 99 18 120/70 100 07/17/18 20:00 07/17/18 20:00 07/17/18 20:00 07/17/18 20:00 07/17/18 20:00 Intake & Output 07/16/18 07/17/18 07/18/18 06:59 06:59 06:59 Intake Total 6523 812 1080 Output Total 1250 1600 775 Balance 340 -626 305 Weight 86.6 kg General appearance: PRESENT: morbidly obese Eye exam: PRESENT: conjunctiva pink, PERRLA Mouth exam: PRESENT: tongue midline Teeth exam: PRESENT: poor dentation Respiratory exam: PRESENT: clear to auscultation rahul, symmetrical, unlabored - requires supplemental O2 Cardiovascular exam: PRESENT: RRR Pulses: PRESENT: normal radial pulses GI/Abdominal exam: PRESENT: soft. ABSENT: distended Rectal exam: PRESENT: deferred Extremities exam: PRESENT: full ROM Musculoskeletal exam: PRESENT: ambulatory - with assistance, full ROM Neurological exam: PRESENT: alert, awake, oriented to person, oriented to place, oriented to time, oriented to situation Psychiatric exam: PRESENT: appropriate affect Skin exam: PRESENT: dry, intact, normal color Results Laboratory Results: 07/13/18 08:05 07/14/18 08:07 05/11/18 05/11/18 05/11/18 09:35 09:35 09:35 Creatine Kinase 37 L CK-MB (CK-2) Troponin I 0.071 NT-Pro-B Natriuret Pep 6800 H 05/11/18 05/11/18 05/12/18 12:30 19:00 01:06 Creatine Kinase CK-MB (CK-2) Troponin I 0.067 0.064 0.050 NT-Pro-B Natriuret Pep 05/23/18 05/24/18 05/27/18 10:36 09:38 10:01 Creatine Kinase CK-MB (CK-2) Troponin I 0.060 NT-Pro-B Natriuret Pep 819 889 06/03/18 06/08/18 06/08/18 08:12 13:40 13:40 Creatine Kinase 39 L CK-MB (CK-2) 1.92 Troponin I 0.060 NT-Pro-B Natriuret Pep 1420 H 06/08/18 06/08/18 06/09/18 19:03 19:03 00:59 Creatine Kinase 36 L 34 L CK-MB (CK-2) 1.75 Troponin I 0.058 NT-Pro-B Natriuret Pep 06/09/18 06/09/18 06/09/18 00:59 08:04 08:04 Creatine Kinase 32 L CK-MB (CK-2) 1.58 1.79 Troponin I 0.063 0.064 NT-Pro-B Natriuret Pep 06/09/18 06/09/18 06/09/18 12:52 12:52 19:00 Creatine Kinase 46 L 31 L CK-MB (CK-2) 1.99 Troponin I 0.051 NT-Pro-B Natriuret Pep 06/09/18 06/25/18 07/04/18 19:00 07:35 08:21 Creatine Kinase CK-MB (CK-2) 1.80 Troponin I 0.072 0.054 NT-Pro-B Natriuret Pep 1660 H Impressions: Thoracentesis Ultrasound 05/13/18 10:06 IMPRESSION: SUCCESSFUL THORACENTESIS USING ULTRASOUND GUIDANCE. Chest X-Ray 07/03/18 00:00 IMPRESSION: Cardiomegaly. Small bibasilar effusions. Mild pulmonary vascular congestion. copyright 2011 [employer]- All Rights Reserved Assessment & Plan - Diagnosis (1) Acute on chronic systolic (congestive) heart failure Is this a current diagnosis for this admission?: Yes Plan: Improved; sounds are clear today, on his baseline oxygen requirement, no dependent edema noted. Continue cardiac diet. Daily weights. Continue carvedilol, digoxin, lovastatin and aspirin. (2) DEANNA (acute kidney injury) Is this a current diagnosis for this admission?: Yes Plan: Within baseline Creatinine slightly elevated; 1.4, actually down from 1.46 when he received IV Lasix. Continue to monitor with daily chemistries. Continue Coreg and digoxin. Avoid nephrotoxic medications as able. He is currently on Gabapentin, furosemide, and allopurinol. Encourage p.o. fluids. Continue daily chemistries. (3) Acute and chronic respiratory failure with hypoxia Is this a current diagnosis for this admission?: Yes Plan: Acute exacerbation is resolved. At baseline. Continue supplemental oxygen and BiPAP as needed to maintain saturations >89% Optimize cardiac output; medications as above. (4) CAD (coronary artery disease) Is this a current diagnosis for this admission?: Yes Plan: Continue Coreg, Levoxyl, and aspirin. Cardiac diet. (5) Gouty arthritis Is this a current diagnosis for this admission?: Yes Plan: Continue allopurinol 100 mg twice daily. Evening gabapentin dose increased to 600 mg, continue 300 mg every morning and at 1400. Discontinue prednisone, not helping pain and maybe adding to agitation Tylenol and oxycodone as needed for pain. (6) Hyperkalemia Is this a current diagnosis for this admission?: Yes Plan: Resolved. Encourage p.o. fluids. Continue to monitor with daily chemistries. (7) Pleural effusion Is this a current diagnosis for this admission?: Yes Plan: Resolved. Secondary to CHF exacerbation. Lung sounds are clear throughout. On his baseline oxygen requirement. (8) Anxiety Is this a current diagnosis for this admission?: Yes Plan: Stable; continue Xanax 0.25 mg twice daily as needed. Initiated Buspar 10 mg PO BID for anxiety per Psych's previous recommendations Additionally, initiated seroquel QHS for insomnia and nighttime agitation. 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 Continue aspirin, Lavaza, beta-steve therapy. - Time Time Spent with patient: 15-24 minutes Medications reviewed and adjusted accordingly: Yes Anticipated discharge: SNF Within: when bed available - Inpatient Certification Based on my medical assessment, after consideration of the patient's comorbidities, presenting symptoms, or acuity I expect that the services needed warrant INPATIENT care.: Yes I certify that my determination is in accordance with my understanding of Medicare's requirements for reasonable and necessary INPATIENT services [42 CFR 412.3e].: Yes Medical Necessity: Risk of Complication if Not Cared For in Hospital
[2018-07-18] MEDS: ACETAMINOPHEN 325 MG TABLET PO SCH ×5 (01:49→23:34)
[2018-07-18] MEDS: ALPRAZOLAM 0.25 MG TABLET PO PRN (09:21)
[2018-07-18] MEDS: ASPIRIN 81 MG TABLET, ENT COATED PO SCH (09:21)
[2018-07-18] MEDS: CARVEDILOL 3.125 MG TABLET PO SCH ×2 (09:21→21:52)
[2018-07-18] MEDS: ALLOPURINOL 100 MG TABLET PO SCH ×2 (09:22→19:47)
[2018-07-18] MEDS: BUSPIRONE HCL 10 MG TABLET PO SCH ×2 (09:23→21:52)
[2018-07-18] MEDS: FUROSEMIDE 20 MG TABLET PO SCH ×2 (09:23→19:47)
[2018-07-18] MEDS: DIGOXIN 0.125 MG TABLET PO SCH (09:23)
[2018-07-18] MEDS: LANSOPRAZOLE 30 MG TAB.RAP.DR PO SCH ×2 (09:23→19:46)
[2018-07-18] MEDS: DOCUSATE SODIUM 100 MG CAPSULE PO SCH ×3 (09:24→19:46)
[2018-07-18] MEDS: LIDOCAINE 5% (700 MG) TRANSDERMAL ADH..PATCH TP SCH (09:24)
[2018-07-18] MEDS: OMEGA-3 ACID ETHYL ESTERS 1 GM CAPSULE PO SCH ×2 (09:24→19:46)
[2018-07-18] MEDS: POLYETHYLENE GLYCOL 3350 POWDER 17 GM/1 PACKET PO SCH ×2 (09:24→21:53)
[2018-07-18] MEDS: PREDNISONE 5 MG TABLET PO SCH (09:25)
[2018-07-18] MEDS: GABAPENTIN 300 MG CAPSULE PO SCH ×3 (09:28→21:51)
[2018-07-18] MEDS: OXYCODONE-ACETAMINOPHEN 5-325 MG TABLET PO PRN (15:23)
--- NOTE | 2018-07-18 15:59 | PDOC PROGRESS REPORT ---
Subjective Progress Note for:: 07/18/18 Subjective:: ALEX CRUZMAN is a 62 year old male who has coronary artery disease and COPD. Patient patient has history of CABG, ischemic cardiomyopathy status post AICD, chronic respiratory failure on home oxygen, prior stroke with residual aphasia who was admitted 05/11/18 for CHF exacerbation. The patient is seen on rounds, he is sleeping comfortably in bedside recliner on nasal cannula. Patient is calm today, no agitation noted. Nursing staff denied any concerns. Patient is currently awaiting placement to a long-term care facility. He requires admission at [facility] for his O2 requirements (nasal cannula and BIPAP) and for being without domicile. The patient also requires a great deal of assistance with managing his medications. This cannot be managed at home without assistance from a caregiver. Discharge planning is assisting with placement. Reason For Visit: CHF Physical Exam Vital Signs: Temp Pulse Resp BP Pulse Ox 98.6 F 97 18 117/65 98 07/18/18 12:00 07/18/18 12:00 07/18/18 12:00 07/18/18 12:00 07/18/18 12:00 Intake & Output 07/17/18 07/18/18 07/19/18 06:59 06:59 06:59 Intake Total 974 1568 Output Total 1600 1550 Balance -626 18 Weight 86.6 kg General appearance: PRESENT: well-developed, well-nourished Head exam: PRESENT: atraumatic Eye exam: PRESENT: conjunctiva pink, PERRLA Mouth exam: PRESENT: neck supple, tongue midline Neck exam: PRESENT: full ROM Respiratory exam: PRESENT: clear to auscultation rahul, decreased breath sounds - Bilateral lower lobes, symmetrical, unlabored - requiring supplemental oxygen via nasal cannula Cardiovascular exam: PRESENT: RRR Pulses: PRESENT: normal radial pulses GI/Abdominal exam: PRESENT: soft. ABSENT: distended, tenderness Rectal exam: PRESENT: deferred Extremities exam: PRESENT: pedal edema - Mild Musculoskeletal exam: PRESENT: ambulatory - With assistance. ABSENT: deformity Neurological exam: PRESENT: alert, awake, oriented to person, oriented to place, oriented to time, oriented to situation Psychiatric exam: PRESENT: appropriate affect Skin exam: PRESENT: dry, intact, normal color Results Laboratory Results: 07/13/18 08:05 07/14/18 08:07 12/05/11/18 05/11/18 09:35 09:35 09:35 Creatine Kinase 37 L CK-MB (CK-2) Troponin I 0.071 NT-Pro-B Natriuret Pep 6800 H 05/11/18 05/11/18 05/12/18 12:30 19:00 01:06 Creatine Kinase CK-MB (CK-2) Troponin I 0.067 0.064 0.050 NT-Pro-B Natriuret Pep 05/23/18 05/24/18 05/27/18 10:36 09:38 10:01 Creatine Kinase CK-MB (CK-2) Troponin I 0.060 NT-Pro-B Natriuret Pep 819 889 06/03/18 06/08/18 06/08/18 08:12 13:40 13:40 Creatine Kinase 39 L CK-MB (CK-2) 1.92 Troponin I 0.060 NT-Pro-B Natriuret Pep 1420 H 06/08/18 06/08/18 06/09/18 19:03 19:03 00:59 Creatine Kinase 36 L 34 L CK-MB (CK-2) 1.75 Troponin I 0.058 NT-Pro-B Natriuret Pep 06/09/18 06/09/18 06/09/18 00:59 08:04 08:04 Creatine Kinase 32 L CK-MB (CK-2) 1.58 1.79 Troponin I 0.063 0.064 NT-Pro-B Natriuret Pep 06/09/18 06/09/18 06/09/18 12:52 12:52 19:00 Creatine Kinase 46 L 31 L CK-MB (CK-2) 1.99 Troponin I 0.051 NT-Pro-B Natriuret Pep 06/09/18 06/25/18 07/04/18 19:00 07:35 08:21 Creatine Kinase CK-MB (CK-2) 1.80 Troponin I 0.072 0.054 NT-Pro-B Natriuret Pep 1660 H Impressions: Thoracentesis Ultrasound 05/13/18 10:06 IMPRESSION: SUCCESSFUL THORACENTESIS USING ULTRASOUND GUIDANCE. Chest X-Ray 07/03/18 00:00 IMPRESSION: Cardiomegaly. Small bibasilar effusions. Mild pulmonary vascular congestion. copyright 2011 [employer]- All Rights Reserved Status: Imported from PACS Assessment & Plan - Diagnosis (1) Acute on chronic systolic (congestive) heart failure Is this a current diagnosis for this admission?: Yes Plan: Improved; sounds are clear today, on his baseline oxygen requirement, no dependent edema noted. Continue cardiac diet. Daily weights. Continue carvedilol, digoxin, lovastatin and aspirin. (2) DEANNA (acute kidney injury) Is this a current diagnosis for this admission?: Yes Plan: Within baseline Creatinine slightly elevated; 1.4, actually down from 1.46 when he received IV Lasix. Continue to monitor with daily chemistries. Continue Coreg and digoxin. Avoid nephrotoxic medications as able. He is currently on Gabapentin, furosemide, and allopurinol. Encourage p.o. fluids. Continue daily chemistries. (3) Acute and chronic respiratory failure with hypoxia Is this a current diagnosis for this admission?: Yes Plan: Acute exacerbation is resolved. At baseline. Continue supplemental oxygen and BiPAP as needed to maintain saturations >89% Optimize cardiac output; medications as above. (4) CAD (coronary artery disease) Is this a current diagnosis for this admission?: Yes Plan: Continue Coreg, Levoxyl, and aspirin. Cardiac diet. (5) Gouty arthritis Is this a current diagnosis for this admission?: Yes Plan: Continue allopurinol 100 mg twice daily. Evening gabapentin dose increased to 600 mg, continue 300 mg every morning and at 1400. Discontinue prednisone, not helping pain and maybe adding to agitation Tylenol and oxycodone as needed for pain. (6) Hyperkalemia Is this a current diagnosis for this admission?: Yes Plan: Resolved. Encourage p.o. fluids. Continue to monitor with daily chemistries. (7) Pleural effusion Is this a current diagnosis for this admission?: Yes Plan: Resolved. Secondary to CHF exacerbation. Lung sounds are clear throughout. On his baseline oxygen requirement. (8) Anxiety Is this a current diagnosis for this admission?: Yes Plan: Stable; continue Xanax 0.25 mg twice daily as needed. Initiated Buspar 10 mg PO BID for anxiety per Psych's previous recommendations Additionally, initiated seroquel QHS for insomnia and nighttime agitation. 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 Continue aspirin, Lavaza, beta-steve therapy. - Time Time Spent with patient: 15-24 minutes Medications reviewed and adjusted accordingly: Yes Anticipated discharge: SNF Within: when bed available - Inpatient Certification Based on my medical assessment, after consideration of the patient's comorbidities, presenting symptoms, or acuity I expect that the services needed warrant INPATIENT care.: Yes I certify that my determination is in accordance with my understanding of Medicare's requirements for reasonable and necessary INPATIENT services [42 CFR 412.3e].: Yes Medical Necessity: Significant Comorbidiites Make Outpatient Treatment Too Risky - Plan Summary Plan Summary: Continue current treatment plan. Wean off steroids completely.
[2018-07-18] MEDS: FLUTICASONE NASAL SPRAY 50 MCG/SPRY 120 SPRAY/16 GM NASL SCH (18:49)
[2018-07-18] MEDS: PATIROMER 8.4 GM SUSP PACKET PO SCH (20:37)
[2018-07-18] MEDS: QUETIAPINE FUMARATE 25 MG TABLET PO SCH (21:51)
[2018-07-19] MEDS: ACETAMINOPHEN 325 MG TABLET PO SCH ×4 (07:31→16:13)
[2018-07-19] MEDS: LANSOPRAZOLE 30 MG TAB.RAP.DR PO SCH ×2 (07:31→16:10)
[2018-07-19] MEDS: DOCUSATE SODIUM 100 MG CAPSULE PO SCH ×3 (10:30→17:03)
[2018-07-19] MEDS: POLYETHYLENE GLYCOL 3350 POWDER 17 GM/1 PACKET PO SCH ×2 (10:30→22:24)
[2018-07-19] MEDS: DIGOXIN 0.125 MG TABLET PO SCH (10:41)
[2018-07-19] MEDS: ASPIRIN 81 MG TABLET, ENT COATED PO SCH (10:41)
[2018-07-19] MEDS: OMEGA-3 ACID ETHYL ESTERS 1 GM CAPSULE PO SCH ×2 (10:42→17:04)
[2018-07-19] MEDS: FUROSEMIDE 20 MG TABLET PO SCH ×2 (10:42→17:04)
[2018-07-19] MEDS: CARVEDILOL 3.125 MG TABLET PO SCH ×2 (10:42→22:26)
[2018-07-19] MEDS: LIDOCAINE 5% (700 MG) TRANSDERMAL ADH..PATCH TP SCH (10:42)
[2018-07-19] MEDS: BUSPIRONE HCL 10 MG TABLET PO SCH ×2 (10:43→22:31)
[2018-07-19] MEDS: FLUTICASONE NASAL SPRAY 50 MCG/SPRY 120 SPRAY/16 GM NASL SCH (10:43)
[2018-07-19] MEDS: ALLOPURINOL 100 MG TABLET PO SCH ×2 (10:43→17:04)
[2018-07-19] MEDS: GABAPENTIN 300 MG CAPSULE PO SCH ×3 (10:49→22:26)
--- NOTE | 2018-07-19 17:22 | PDOC PROGRESS REPORT ---
Subjective Progress Note for:: 07/19/18 Subjective:: ALEX CRUZMAN is a 62 year old male who has coronary artery disease and COPD. Patient patient has history of CABG, ischemic cardiomyopathy status post AICD, chronic respiratory failure on home oxygen, prior stroke with residual aphasia who was admitted 05/11/18 for CHF exacerbation. The patient is seen on rounds, he is sleeping comfortably in bedside recliner on nasal cannula. Patient is calm today, no agitation noted. Nursing staff reports he declined his morning dose of Buspar, no other concerns. Patient is currently awaiting placement to a manager management care facility. He requires admission at [facility] for his O2 requirements (nasal cannula and BIPAP) and for being without domicile. The patient also requires a great deal of assistance with managing his medications. This cannot be managed at home without assistance from a caregiver. Discharge planning is assisting with placement. Reason For Visit: CHF Physical Exam Vital Signs: Temp Pulse Resp BP Pulse Ox 98.3 F 97 18 118/62 100 07/19/18 16:11 07/19/18 16:11 07/19/18 16:11 07/19/18 16:11 07/19/18 16:11 Intake & Output 07/18/18 07/19/18 07/20/18 06:59 06:59 06:59 Intake Total 1568 1720 Output Total 1550 1150 Balance 18 570 Weight 86.6 kg General appearance: PRESENT: well-developed, well-nourished Eye exam: PRESENT: conjunctiva pink, PERRLA Mouth exam: PRESENT: moist, tongue midline Neck exam: PRESENT: full ROM Respiratory exam: PRESENT: clear to auscultation rahul, symmetrical, unlabored Cardiovascular exam: PRESENT: irregular rhythm Pulses: PRESENT: normal radial pulses, +1 pedal pulses bilateral Vascular exam: PRESENT: normal capillary refill GI/Abdominal exam: PRESENT: normal bowel sounds, soft. ABSENT: distended, tende rness Rectal exam: PRESENT: deferred Extremities exam: PRESENT: full ROM Musculoskeletal exam: PRESENT: ambulatory - with assistance, full ROM Neurological exam: PRESENT: alert, awake, oriented to person, oriented to place, oriented to time, oriented to situation Psychiatric exam: PRESENT: appropriate affect Skin exam: PRESENT: dry, intact, normal color Results Laboratory Results: 07/13/18 08:05 07/14/18 08:07 05/11/18 05/11/18 05/11/18 09:35 09:35 09:35 Creatine Kinase 37 L CK-MB (CK-2) Troponin I 0.071 NT-Pro-B Natriuret Pep 6800 H 05/11/18 05/11/18 05/12/18 12:30 19:00 01:06 Creatine Kinase CK-MB (CK-2) Troponin I 0.067 0.064 0.050 NT-Pro-B Natriuret Pep 05/23/18 05/24/18 05/27/18 10:36 09:38 10:01 Creatine Kinase CK-MB (CK-2) Troponin I 0.060 NT-Pro-B Natriuret Pep 819 889 06/03/18 06/08/18 06/08/18 08:12 13:40 13:40 Creatine Kinase 39 L CK-MB (CK-2) 1.92 Troponin I 0.060 NT-Pro-B Natriuret Pep 1420 H 06/08/18 06/08/18 06/09/18 19:03 19:03 00:59 Creatine Kinase 36 L 34 L CK-MB (CK-2) 1.75 Troponin I 0.058 NT-Pro-B Natriuret Pep 06/09/18 06/09/18 06/09/18 00:59 08:04 08:04 Creatine Kinase 32 L CK-MB (CK-2) 1.58 1.79 Troponin I 0.063 0.064 NT-Pro-B Natriuret Pep 06/09/18 06/09/18 06/09/18 12:52 12:52 19:00 Creatine Kinase 46 L 31 L CK-MB (CK-2) 1.99 Troponin I 0.051 NT-Pro-B Natriuret Pep 06/09/18 06/25/18 07/04/18 19:00 07:35 08:21 Creatine Kinase CK-MB (CK-2) 1.80 Troponin I 0.072 0.054 NT-Pro-B Natriuret Pep 1660 H Impressions: Thoracentesis Ultrasound 05/13/18 10:06 IMPRESSION: SUCCESSFUL THORACENTESIS USING ULTRASOUND GUIDANCE. Chest X-Ray 07/03/18 00:00 IMPRESSION: Cardiomegaly. Small bibasilar effusions. Mild pulmonary vascular congestion. copyright 2010 [employer]- All Rights Reserved Status: Imported from PACS Assessment & Plan - Diagnosis (1) Acute on chronic systolic (congestive) heart failure Is this a current diagnosis for this admission?: Yes Plan: Improved; sounds are clear today, on his baseline oxygen requirement, no dependent edema noted. Continue cardiac diet. Daily weights. Continue carvedilol, digoxin, lovastatin and aspirin. (2) DEANNA (acute kidney injury) Is this a current diagnosis for this admission?: Yes Plan: Within baseline Creatinine slightly elevated; 1.4, actually down from 1.46 when he received IV Lasix. Continue to monitor with daily chemistries. Continue Coreg and digoxin. Avoid nephrotoxic medications as able. He is currently on Gabapentin, furosemide, and allopurinol. Encourage p.o. fluids. Continue daily chemistries. (3) Acute and chronic respiratory failure with hypoxia Is this a current diagnosis for this admission?: Yes Plan: Acute exacerbation is resolved. At baseline. Continue supplemental oxygen and BiPAP as needed to maintain saturations >89% Optimize cardiac output; medications as above. (4) CAD (coronary artery disease) Is this a current diagnosis for this admission?: Yes Plan: Continue Coreg, Levoxyl, and aspirin. Cardiac diet. (5) Gouty arthritis Is this a current diagnosis for this admission?: Yes Plan: Continue allopurinol 100 mg twice daily. Evening gabapentin dose increased to 600 mg, continue 300 mg every morning and at 1400. Discontinue prednisone, not helping pain and maybe adding to agitation Tylenol and oxycodone as needed for pain. (6) Hyperkalemia Is this a current diagnosis for this admission?: Yes Plan: Resolved. Encourage p.o. fluids. Continue to monitor with daily chemistries. (7) Pleural effusion Is this a current diagnosis for this admission?: Yes Plan: Resolved. Secondary to CHF exacerbation. Lung sounds are clear throughout. On his baseline oxygen requirement. (8) Anxiety Is this a current diagnosis for this admission?: Yes Plan: Stable; continue Xanax 0.25 mg twice daily as needed. Initiated Buspar 10 mg PO BID for anxiety per Psych's previous recommendations Additionally, initiated seroquel QHS for insomnia and nighttime agitation. 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 Continue aspirin, Lavaza, beta-steve therapy. - Time Time Spent with patient: 15-24 minutes Medications reviewed and adjusted accordingly: Yes Anticipated discharge: SNF - Inpatient Certification Based on my medical assessment, after consideration of the patient's comorbidities, presenting symptoms, or acuity I expect that the services needed warrant INPATIENT care.: Yes I certify that my determination is in accordance with my understanding of Medicare's requirements for reasonable and necessary INPATIENT services [42 CFR 412.3e].: Yes Medical Necessity: Need For Continuous Telemetry Monitoring, Risk of Complication if Not Cared For in Hospital - Plan Summary Plan Summary: AWAITING PLACEMENT IN LONG-TERM FACILITY. DISCHARGE PLANNING ASSISTING WITH PLACEMENT
[2018-07-19] MEDS: OXYCODONE-ACETAMINOPHEN 5-325 MG TABLET PO PRN (18:21)
[2018-07-19] MEDS: QUETIAPINE FUMARATE 25 MG TABLET PO SCH (22:26)
[2018-07-19] MEDS: PATIROMER 8.4 GM SUSP PACKET PO SCH (22:27)
[2018-07-20] MEDS: ACETAMINOPHEN 325 MG TABLET PO SCH ×5 (04:07→18:24)
[2018-07-20] MEDS: LANSOPRAZOLE 30 MG TAB.RAP.DR PO SCH ×2 (10:12→18:23)
[2018-07-20] MEDS: DOCUSATE SODIUM 100 MG CAPSULE PO SCH ×3 (10:12→18:23)
[2018-07-20] MEDS: CARVEDILOL 3.125 MG TABLET PO SCH ×2 (10:12→21:17)
[2018-07-20] MEDS: ALLOPURINOL 100 MG TABLET PO SCH ×2 (10:13→18:24)
[2018-07-20] MEDS: BUSPIRONE HCL 10 MG TABLET PO SCH ×2 (10:13→21:17)
[2018-07-20] MEDS: ASPIRIN 81 MG TABLET, ENT COATED PO SCH (10:13)
[2018-07-20] MEDS: FUROSEMIDE 20 MG TABLET PO SCH ×2 (10:13→18:24)
[2018-07-20] MEDS: DIGOXIN 0.125 MG TABLET PO SCH (10:13)
[2018-07-20] MEDS: OMEGA-3 ACID ETHYL ESTERS 1 GM CAPSULE PO SCH ×2 (10:13→18:24)
[2018-07-20] MEDS: GABAPENTIN 300 MG CAPSULE PO SCH ×3 (10:19→21:17)
[2018-07-20] MEDS: FLUTICASONE NASAL SPRAY 50 MCG/SPRY 120 SPRAY/16 GM NASL SCH (11:11)
[2018-07-20] MEDS: POLYETHYLENE GLYCOL 3350 POWDER 17 GM/1 PACKET PO SCH (11:11)
[2018-07-20] MEDS: LIDOCAINE 5% (700 MG) TRANSDERMAL ADH..PATCH TP SCH (11:11)
[2018-07-20] MEDS ORDERED: NITROGLYCERIN 0.4 MG/TAB 25 TAB/BOTTLE SL PRN (21:00)
[2018-07-20] MEDS ORDERED: MORPHINE SULFATE 10 MG/ML INJ IM PRN ×2 (21:00→21:14)
[2018-07-20] MEDS ORDERED: MORPHINE SULFATE 10 MG/ML INJ IV PRN (21:12)
--- NOTE | 2018-07-20 22:15 | PDOC PROGRESS REPORT ---
Subjective Progress Note for:: 07/20/18 Subjective:: ALEX Guadarrama KNIGHT is a 62 year old male who has coronary artery disease and COPD. Patient patient has history of CABG, ischemic cardiomyopathy status post AICD, chronic respiratory failure on home oxygen, prior stroke with residual aphasia who was admitted 05/11/18 for CHF exacerbation. The patient is seen on rounds, he is sleeping comfortably in bedside recliner on nasal cannula. Patient is calm today, no agitation noted. Patient c/o a runny nose but refuses afrin. Only asking for tissues. Patient is currently awaiting placement to a half-way care facility. He requires admission at [facility] for his O2 requirements (nasal cannula and BIPAP) and for being without domicile. The patient also requires a great deal of assistance with managing his medications. This cannot be managed at home without assistance from a caregiver. Discharge planning is assisting with placement. Reason For Visit: CHF Physical Exam Vital Signs: Temp Pulse Resp BP Pulse Ox 97.7 F 99 18 104/62 95 07/20/18 14:57 07/20/18 14:57 07/20/18 14:57 07/20/18 14:57 07/20/18 14:57 Intake & Output 07/19/18 07/20/18 07/21/18 06:59 06:59 06:59 Intake Total 1720 960 540 Output Total 1150 750 Balance 570 210 540 Weight 86.6 kg 86.6 kg General appearance: PRESENT: no acute distress Head exam: PRESENT: atraumatic Eye exam: PRESENT: PERRLA Mouth exam: PRESENT: tongue midline Neck exam: PRESENT: carotid bruit Respiratory exam: PRESENT: clear to auscultation rahul, decreased breath sounds - bilateral lower bases, symmetrical, unlabored Cardiovascular exam: PRESENT: RRR Pulses: PRESENT: normal radial pulses GI/Abdominal exam: PRESENT: soft Rectal exam: PRESENT: deferred Extremities exam: PRESENT: full ROM Musculoskeletal exam: PRESENT: ambulatory, full ROM Neurological exam: PRESENT: alert, awake, oriented to person, oriented to place, oriented to time, oriented to situation Psychiatric exam: PRESENT: appropriate affect Skin exam: PRESENT: dry, intact, normal color Results Laboratory Results: 07/13/18 08:05 07/14/18 08:07 05/11/18 05/11/18 05/11/18 09:35 09:35 09:35 Creatine Kinase 37 L CK-MB (CK-2) Troponin I 0.071 NT-Pro-B Natriuret Pep 6800 H 05/11/18 05/11/18 05/12/18 12:30 19:00 01:06 Creatine Kinase CK-MB (CK-2) Troponin I 0.067 0.064 0.050 NT-Pro-B Natriuret Pep 05/23/18 05/24/18 05/27/18 10:36 09:38 10:01 Creatine Kinase CK-MB (CK-2) Troponin I 0.060 NT-Pro-B Natriuret Pep 819 889 06/03/18 06/08/18 06/08/18 08:12 13:40 13:40 Creatine Kinase 39 L CK-MB (CK-2) 1.92 Troponin I 0.060 NT-Pro-B Natriuret Pep 1420 H 06/08/18 06/08/18 06/09/18 19:03 19:03 00:59 Creatine Kinase 36 L 34 L CK-MB (CK-2) 1.75 Troponin I 0.058 NT-Pro-B Natriuret Pep 06/09/18 06/09/18 06/09/18 00:59 08:04 08:04 Creatine Kinase 32 L CK-MB (CK-2) 1.58 1.79 Troponin I 0.063 0.064 NT-Pro-B Natriuret Pep 06/09/18 06/09/18 06/09/18 12:52 12:52 19:00 Creatine Kinase 46 L 31 L CK-MB (CK-2) 1.99 Troponin I 0.051 NT-Pro-B Natriuret Pep 06/09/18 06/25/18 07/04/18 19:00 07:35 08:21 Creatine Kinase CK-MB (CK-2) 1.80 Troponin I 0.072 0.054 NT-Pro-B Natriuret Pep 1660 H Impressions: Thoracentesis Ultrasound 05/13/18 10:06 IMPRESSION: SUCCESSFUL THORACENTESIS USING ULTRASOUND GUIDANCE. Chest X-Ray 07/03/18 00:00 IMPRESSION: Cardiomegaly. Small bibasilar effusions. Mild pulmonary vascular congestion. copyright 2011 [employer]- All Rights Reserved Status: Imported from PACS Assessment & Plan - Diagnosis (1) Acute on chronic systolic (congestive) heart failure Is this a current diagnosis for this admission?: Yes (2) DEANNA (acute kidney injury) Is this a current diagnosis for this admission?: Yes Plan: Within baseline Creatinine slightly elevated; 1.4, actually down from 1.46 when he received IV Lasix. Continue to monitor with daily chemistries. Continue Coreg and digoxin. Avoid nephrotoxic medications as able. He is currently on Gabapentin, fur osemide, and allopurinol. Encourage p.o. fluids. Continue daily chemistries. (3) Acute and chronic respiratory failure with hypoxia Is this a current diagnosis for this admission?: Yes Plan: Acute exacerbation is resolved. At baseline. Continue supplemental oxygen and BiPAP as needed to maintain saturations >89% Optimize cardiac output; medications as above. (4) CAD (coronary artery disease) Is this a current diagnosis for this admission?: Yes Plan: Continue Coreg, Levoxyl, and aspirin. Cardiac diet. (5) Gouty arthritis Is this a current diagnosis for this admission?: Yes Plan: Continue allopurinol 100 mg twice daily. Evening gabapentin dose increased to 600 mg, continue 300 mg every morning and at 1400. Discontinue prednisone, not helping pain and maybe adding to agitation Tylenol and oxycodone as needed for pain. (6) Hyperkalemia Is this a current diagnosis for this admission?: Yes Plan: Resolved. Encourage p.o. fluids. Continue to monitor with daily chemistries. (7) Pleural effusion Is this a current diagnosis for this admission?: Yes Plan: Resolved. Secondary to CHF exacerbation. Lung sounds are clear throughout. On his baseline oxygen requirement. (8) Anxiety Is this a current diagnosis for this admission?: Yes Plan: Stable; continue Xanax 0.25 mg twice daily as needed. Initiated Buspar 10 mg PO BID for anxiety per Psych's previous recommendations Additionally, initiated seroquel QHS for insomnia and nighttime agitation. 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 Continue aspirin, Lavaza, beta-steve therapy. - Time Time Spent with patient: Less than 15 minutes Medications reviewed and adjusted accordingly: Yes Anticipated discharge: SNF - Inpatient Certification Based on my medical assessment, after consideration of the patient's com orbidities, presenting symptoms, or acuity I expect that the services needed warrant INPATIENT care.: Yes I certify that my determination is in accordance with my understanding of Medicare's requirements for reasonable and necessary INPATIENT services [42 CFR 412.3e].: Yes Medical Necessity: Risk of Complication if Not Cared For in Hospital - Plan Summary Plan Summary: AWAITING DETENTION PLACEMENT. DISCHRGE PLANNING WELL AWARE OF MYRNA'S CASE
[2018-07-20] MEDS ORDERED: CARVEDILOL 3.125 MG TABLET PO ONE (22:30)
[2018-07-21] MEDS: QUETIAPINE FUMARATE 25 MG TABLET PO SCH ×2 (00:13→22:18)
[2018-07-21] MEDS: POLYETHYLENE GLYCOL 3350 POWDER 17 GM/1 PACKET PO SCH ×3 (00:13→22:17)
[2018-07-21] MEDS: PATIROMER 8.4 GM SUSP PACKET PO SCH ×2 (00:13→22:12)
[2018-07-21] MEDS: ACETAMINOPHEN 325 MG TABLET PO SCH ×5 (00:14→23:01)
[2018-07-21] MEDS ORDERED: CARVEDILOL 6.25 MG TABLET PO ONE (02:10)
[2018-07-21] MEDS ORDERED: METOPROLOL TARTRATE PF/INJ 5 MG/5 ML SDV IV ONE ×2 (03:00→05:00)
[2018-07-21] MEDS: LANSOPRAZOLE 30 MG TAB.RAP.DR PO SCH ×2 (05:24→18:13)
[2018-07-21] MEDS: METOPROLOL TARTRATE PF/INJ 5 MG/5 ML SDV IV SCH ×3 (05:27→05:49)
[2018-07-21] MEDS: GABAPENTIN 300 MG CAPSULE PO SCH ×3 (08:20→22:19)
[2018-07-21] MEDS: DOCUSATE SODIUM 100 MG CAPSULE PO SCH ×3 (09:18→18:13)
[2018-07-21] MEDS: FUROSEMIDE 20 MG TABLET PO SCH ×2 (09:19→18:13)
[2018-07-21] MEDS: ASPIRIN 81 MG TABLET, ENT COATED PO SCH (09:19)
[2018-07-21] MEDS: ALLOPURINOL 100 MG TABLET PO SCH ×2 (09:19→18:13)
[2018-07-21] MEDS: FLUTICASONE NASAL SPRAY 50 MCG/SPRY 120 SPRAY/16 GM NASL SCH (09:25)
[2018-07-21] MEDS: BUSPIRONE HCL 10 MG TABLET PO SCH ×2 (09:25→22:18)
[2018-07-21] MEDS: OMEGA-3 ACID ETHYL ESTERS 1 GM CAPSULE PO SCH ×2 (09:25→18:13)
[2018-07-21] MEDS: LIDOCAINE 5% (700 MG) TRANSDERMAL ADH..PATCH TP SCH (09:26)
[2018-07-21] MEDS: DIGOXIN 0.125 MG TABLET PO SCH (09:26)
[2018-07-21 10:29] LABS: HEMATOCRIT 35.9 % (37.9-51.0); HEMOGLOBIN 11.7 g/dL (13.5-17.0); MEAN CORPUSCULAR HEMOGLOBIN 27.2 pg (27.0-33.4); MEAN CORPUSCULAR HGB CONC 32.6 g/dL (32.0-36.0); MEAN CORPUSCULAR VOLUME 84 fl (80-97); PLATELET COUNT 181 10^3/uL (150-450); RED BLOOD COUNT 4.29 10^6/uL (4.35-5.55); RED CELL DISTRIBUTION WIDTH 15.1 % (11.5-14.0); WHITE BLOOD COUNT 5.7 10^3/uL (4.0-10.5)
[2018-07-21 11:02] LABS: ANION GAP 7 (5-19); BLOOD UREA NITROGEN 47 mg/dL (7-20); CALCIUM 9.1 mg/dL (8.4-10.2); CARBON DIOXIDE 34 mmol/L (22-30); CHLORIDE 100 mmol/L (98-107); GLUCOSE 173 mg/dL (75-110); POTASSIUM 5.5 mmol/L (3.6-5.0); SODIUM 141.4 mmol/L (137-145)
[2018-07-21] MEDS ORDERED: SODIUM POLYSTYRENE SULFONATE 15 GM/60 ML PO ONE (12:15)
[2018-07-21] MEDS ORDERED: NORMAL SALINE 1000 ML 1,000 ML IV ONE (12:30)
[2018-07-21] MEDS: CARVEDILOL 3.125 MG TABLET PO SCH (13:03)
[2018-07-21] MEDS ORDERED: NORMAL SALINE 1000 ML 1,000 ML IV PRN (18:23)
--- NOTE | 2018-07-21 18:38 | PDOC PROGRESS REPORT ---
Subjective Progress Note for:: 07/21/18 Subjective:: ALEX KNIGHT is a 62 year old male who has coronary artery disease and COPD. Patient patient has history of CABG, ischemic cardiomyopathy status post AICD, chronic respiratory failure on home oxygen, prior stroke with residual aphasia who was admitted 05/11/18 for CHF exacerbation. The patient was seen on morning rounds. He was found sitting up to the recliner on supplemental oxygen via nasal cannula. He reports that he is feeling well today. He does confirm that he had chest discomfort last night. He states that he was not having any difficulty breathing at the time his palpitations started. He does report continued palpitations at present, though states that there is no pain or associated dyspnea. Per nursing he has been compliant with his oxy gen today. He further denies fever, chills, headache, dizziness, chest pain, dyspnea, orthopnea, abdominal pain, nausea, vomiting, diarrhea. His only other complaint is rhinorrhea that he relates to seasonal allergies. He has no other questions or concerns at this time. No concerns per nursing. Reason For Visit: CHF Physical Exam Vital Signs: Temp Pulse Resp BP Pulse Ox 98.4 F 130 H 16 102/64 100 07/21/18 04:00 07/21/18 09:36 07/21/18 09:36 07/21/18 09:36 07/21/18 11:21 Intake & Output 07/20/18 07/21/18 07/22/18 06:59 06:59 06:59 Intake Total 960 1462 1400 Output Total 750 700 Balance 965 097 5541 Weight 86.6 kg General appearance: PRESENT: no acute distress, obese, well-developed, well- nourished Head exam: PRESENT: atraumatic, normocephalic Eye exam: PRESENT: conjunctiva pink, EOMI, PERRLA. ABSENT: scleral icterus Mouth exam: PRESENT: moist, tongue midline Neck exam: ABSENT: carotid bruit, JVD, lymphadenopathy, thyromegaly Respiratory exam: PRESENT: clear to auscultation rahul, decreased breath sounds - Bibasilar, symmetrical, unlabored, other - Supplemental oxygen by nasal cannula. ABSENT: rales, rhonchi, wheezes Cardiovascular exam: PRESENT: +S1, +S2, tachycardia. ABSENT: diastolic murmur, rubs, systolic murmur Pulses: PRESENT: normal dorsalis pedis pul Vascular exam: PRESENT: normal capillary refill GI/Abdominal exam: PRESENT: normal bowel sounds, soft. ABSENT: distended, guarding, mass, organolmegaly, rebound, tenderness Rectal exam: PRESENT: deferred Extremities exam: PRESENT: full ROM. ABSENT: calf tenderness, clubbing, pedal edema Neurological exam: PRESENT: alert, awake, oriented to person, oriented to place, oriented to time, oriented to situation, CN II-XII grossly intact. ABSENT: motor sensory deficit Psychiatric exam: PRESENT: appropriate affect, normal mood. ABSENT: homicidal ideation, suicidal ideation Skin exam: PRESENT: dry, intact, warm. ABSENT: cyanosis, rash Results Laboratory Results: 07/21/18 10:10 07/21/18 10:10 07/21/18 07/21/18 10:10 10:10 WBC 5.7 RBC 4.29 L Hgb 11.7 L Hct 35.9 L MCV 84 MCH 27.2 MCHC 32.6 RDW 15.1 H Plt Count 181 Sodium 141.4 Potassium 5.5 H Chloride 100 Carbon Dioxide 34 H Anion Gap 7 BUN 47 H Creatinine 1.73 H Est GFR ( Amer) 48 L Est GFR (Non-Af Amer) 40 L Glucose 173 H Calcium 9.1 05/11/18 05/11/18 05/11/18 09:35 09:35 09:35 Creatine Kinase 37 L CK-MB (CK-2) Troponin I 0.071 NT-Pro-B Natriuret Pep 6800 H 05/11/18 05/11/18 05/12/18 12:30 19:00 01:06 Creatine Kinase CK-MB (CK-2) Troponin I 0.067 0.064 0.050 NT-Pro-B Natriuret Pep 05/23/18 05/24/18 05/27/18 10:36 09:38 10:01 Creatine Kinase CK-MB (CK-2) Troponin I 0.060 NT-Pro-B Natriuret Pep 819 889 06/03/18 06/08/18 06/08/18 08:12 13:40 13:40 Creatine Kinase 39 L CK-MB (CK-2) 1.92 Troponin I 0.060 NT-Pro-B Natriuret Pep 1420 H 0106/08/18 06/09/18 19:03 19:03 00:59 Creatine Kinase 36 L 34 L CK-MB (CK-2) 1.75 Troponin I 0.058 NT-Pro-B Natriuret Pep 06/09/18 06/09/18 06/09/18 00:59 08:04 08:04 Creatine Kinase 32 L CK-MB (CK-2) 1.58 1.79 Troponin I 0.063 0.064 NT-Pro-B Natriuret Pep 06/09/18 06/09/18 06/09/18 12:52 12:52 19:00 Creatine Kinase 46 L 31 L CK-MB (CK-2) 1.99 Troponin I 0.051 NT-Pro-B Natriuret Pep 06/09/18 06/25/18 07/04/18 19:00 07:35 08:21 Creatine Kinase CK-MB (CK-2) 1.80 Troponin I 0.072 0.054 NT-Pro-B Natriuret Pep 1660 H 07/20/18 07/20/18 07/20/18 22:16 22:16 22:16 Creatine Kinase 30 L CK-MB (CK-2) 2.79 Troponin I 0.077 NT-Pro-B Natriuret Pep 07/21/18 10:10 Creatine Kinase CK-MB (CK-2) Troponin I 0.076 NT-Pro-B Natriuret Pep Impressions: Thoracentesis Ultrasound 05/13/18 10:06 IMPRESSION: SUCCESSFUL THORACENTESIS USING ULTRASOUND GUIDANCE. Chest X-Ray 07/03/18 00:00 IMPRESSION: Cardiomegaly. Small bibasilar effusions. Mild pulmonary vascular congestion. copyright 2010 [employer]- All Rights Reserved Assessment & Plan - Diagnosis (1) Acute on chronic systolic (congestive) heart failure Is this a current diagnosis for this admission?: Yes Plan: Improved; acute exacerbation has resolved. Lung sounds are clear today, on his baseline oxygen requirement, no dependent edema noted. Continue cardiac diet. Daily weights. Continue carvedilol, digoxin, lovastatin and aspirin. Holding Lasix while providing IV fluids for DEANNA. Monitor closely for fluid volume overload. Strict I's and O's. (2) DEANNA (acute kidney injury) Is this a current diagnosis for this admission?: Yes Plan: Creatinine worsened today; Cr 1.73 up from baseline of 1.23 Avoid nephrotoxic medications as able. He is currently on Gabapentin, furosemide, and allopurinol. Gabapentin is decreased, will hold furosemide while providing IV fluids. Allopurinol is discontinued. Encourage p.o. fluids. Gentle IV fluids. Monitor closely for fluid volume overload in patient with CHF. Continue daily chemistries. (3) Acute and chronic respiratory failure with hypoxia Is this a current diagnosis for this admission?: Yes Plan: Acute exacerbation is resolved. At baseline. Continue supplemental oxygen and BiPAP as needed to maintain saturations >89% Optimize cardiac output; medications as above. (4) CAD (coronary artery disease) Is this a current diagnosis for this admission?: Yes Plan: Continue Coreg, [place] 3, and aspirin. Cardiac diet. (5) Gouty arthritis Is this a current diagnosis for this admission?: Yes Plan: Allopurinol discontinued secondary to DEANNA. Gabapentin decreased secondary to DEANNA. Tylenol and oxycodone as needed for pain. (6) Hyperkalemia Is this a current diagnosis for this admission?: Yes Plan: Recurrent. Continue Veltassa. Kayexalate x1 today. Encourage p.o. fluids. Continue to monitor with daily chemistries. (7) Pleural effusion Is this a current diagnosis for this admission?: Yes Plan: Resolved. Secondary to CHF exacerbation. Lung sounds are clear throughout. On his baseline oxygen requirement. (8) Anxiety Is this a current diagnosis for this admission?: Yes Plan: Stable Continue sceduled BuSpar BID and Xanax 0.25 mg twice daily as needed. Greatly improved with Seroquel 25 mg nightly. 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 Continue aspirin, Lavaza beta-steve therapy. (10) Tachycardia Is this a current diagnosis for this admission?: Yes Plan: Sinus tachycardia w/ HR 120-130. BMP reveals hyperkalemia, DEANNA, otherwise unremarkable. Troponins are indeterminately elevated but stable at 0.076. Unclear etiology; dehydration versus developing CHF versus early worsening acute on chronic respiratory failure. Upgrade to continuous cardiac telemetry. Repeat CBC, BMP, BNP, and magnesium in the morning. Increase carvedilol from 3.125-6.25 mg twice daily. IV fluids for correction of dehydration as above. - Time Time Spent with patient: 15-24 minutes Medications reviewed and adjusted accordingly: Yes Anticipated discharge: SNF Within: within 48 hours
[2018-07-21] MEDS ORDERED: CARVEDILOL 3.125 MG TABLET PO SCH (22:00)
[2018-07-21] MEDS: CETIRIZINE 10 MG TABLET PO SCH (22:18)
[2018-07-22] MEDS ORDERED: OLANZAPINE INJ/PF 10 MG SDV IM ONE (02:00)
[2018-07-22] MEDS: LANSOPRAZOLE 30 MG TAB.RAP.DR PO SCH ×2 (05:23→16:00)
[2018-07-22] MEDS: ACETAMINOPHEN 325 MG TABLET PO SCH ×5 (05:23→23:57)
[2018-07-22 05:53] LABS: ANION GAP 7 (5-19); BLOOD UREA NITROGEN 46 mg/dL (7-20); CALCIUM 8.9 mg/dL (8.4-10.2); CARBON DIOXIDE 33 mmol/L (22-30); CHLORIDE 103 mmol/L (98-107); GLUCOSE 100 mg/dL (75-110); POTASSIUM 5.8 mmol/L (3.6-5.0); SODIUM 142.9 mmol/L (137-145)
[2018-07-22 06:28] LABS: ABSOLUTE BASOPHILS # (AUTO) 0.1 10^3/uL (0.0-0.2); ABSOLUTE EOSINOPHILS # (AUTO) 0.4 10^3/uL (0.0-0.6); ABSOLUTE LYMPHOCYTES (AUTO) 1.2 10^3/uL (0.5-4.7); ABSOLUTE MONOCYTES (AUTO) 0.9 10^3/uL (0.1-1.4); ABSOLUTE NEUT (AUTO) 3.3 10^3/uL (1.7-8.2); BASOPHILS % (AUTO) 1.2 % (0-2); EOSINOPHILS % (AUTO) 6.3 % (0-6); HEMATOCRIT 37.4 % (37.9-51.0); LYMPHOCYTES % (AUTO) 20.4 % (13-45); MEAN CORPUSCULAR HEMOGLOBIN 26.8 pg (27.0-33.4); MEAN CORPUSCULAR VOLUME 84 fl (80-97); MONOCYTES % (AUTO) 16.1 % (3-13); PLATELET COUNT 178 10^3/uL (150-450); RED BLOOD COUNT 4.47 10^6/uL (4.35-5.55); RED CELL DISTRIBUTION WIDTH 15.2 % (11.5-14.0); TOTAL CELLS COUNTED % (AUTO) 100 %; WHITE BLOOD COUNT 5.9 10^3/uL (4.0-10.5)
[2018-07-22] MEDS ORDERED: SODIUM POLYSTYRENE SULFONATE 15 GM/60 ML PO ONE ×2 (09:00→12:00)
--- NOTE | 2018-07-22 09:32 | EKG REPORT ---
SEVERITY:- ABNORMAL ECG - SINUS TACHYCARDIA VS A FLUTTER 2;1 CONDUCTION CONSIDER RIGHT VENTRICULAR HYPERTROPHY PROBABLE INFERIOR INFARCT, AGE INDETERMINATE CONSIDER ANTERIOR INFARCT BORDERLINE PROLONGED QT INTERVAL : Confirmed by: Pooja Patel 22-Jul-2018 09:31:58
--- NOTE | 2018-07-22 09:33 | EKG REPORT ---
SEVERITY:- BORDERLINE ECG - SINUS TACHYCARDIA VS AF WITH 2;1 CONDUCTION CONSIDER RIGHT VENTRICULAR HYPERTROPHY : Confirmed by: Pooja Patel 22-Jul-2018 09:32:50
--- NOTE | 2018-07-22 09:34 | EKG REPORT ---
SEVERITY:- ABNORMAL ECG - SINUS TACHYCARDIA VS AF WITH 2:1 CONDUCTION RIGHT AXIS DEVIATION CONSIDER INFERIOR INFARCT MINIMAL ST DEPRESSION, INFERIOR LEADS BORDERLINE PROLONGED QT INTERVAL : Confirmed by: Pooja Patel 22-Jul-2018 09:33:41
[2018-07-22] MEDS ORDERED: CARVEDILOL 12.5 MG TABLET PO SCH (10:00)
[2018-07-22] MEDS ORDERED: CARVEDILOL 3.125 MG TABLET PO SCH (10:00)
[2018-07-22] MEDS: FLUTICASONE NASAL SPRAY 50 MCG/SPRY 120 SPRAY/16 GM NASL SCH (11:03)
[2018-07-22] MEDS: LIDOCAINE 5% (700 MG) TRANSDERMAL ADH..PATCH TP SCH (11:03)
[2018-07-22] MEDS: DOCUSATE SODIUM 100 MG CAPSULE PO SCH ×3 (11:19→17:16)
[2018-07-22] MEDS: OMEGA-3 ACID ETHYL ESTERS 1 GM CAPSULE PO SCH ×2 (11:19→18:46)
[2018-07-22] MEDS: ASPIRIN 81 MG TABLET, ENT COATED PO SCH (11:20)
[2018-07-22] MEDS: BUSPIRONE HCL 10 MG TABLET PO SCH ×2 (11:20→21:39)
[2018-07-22] MEDS: POLYETHYLENE GLYCOL 3350 POWDER 17 GM/1 PACKET PO SCH ×2 (11:22→23:57)
[2018-07-22] MEDS: DIGOXIN 0.125 MG TABLET PO SCH (11:23)
--- NOTE | 2018-07-22 12:39 | RADIOLOGY REPORT (SQ) ---
EXAM DESCRIPTION: CHEST SINGLE VIEW COMPLETED DATE/TIME: 07/22/2018 12:30 pm REASON FOR STUDY: chest pain, bibasilar crackles COMPARISON: 07/03/2018. NUMBER OF VIEWS: One view. TECHNIQUE: Single frontal radiographic view of the chest acquired. LIMITATIONS: None. FINDINGS: LUNGS AND PLEURA: Basilar airspace disease and pleural effusions, left greater than right, unchanged. MEDIASTINUM AND HILAR STRUCTURES: No masses or contour abnormality. HEART AND VASCULATURE: Cardiac enlargement. Vascular congestion. BONES: No acute findings. HARDWARE: Pacemaker undue that defibrillator. Clips in the soft tissues of the neck. OTHER: No other significant finding. IMPRESSION: CARDIAC ENLARGEMENT. VASCULAR CONGESTION. BASILAR ATELECTASIS AND BILATERAL PLEURAL EF FUSIONS. NO SIGNIFICANT INTERVAL CHANGE. TECHNICAL DOCUMENTATION: JOB ID: [id number] [employer]- All Rights Reserved Reading location - IP/workstation name: [email or web address]
[2018-07-22 13:59] LABS: TROPONIN I 0.064 ng/mL
[2018-07-22 15:04] LABS: ANION GAP 10 (5-19); BLOOD UREA NITROGEN 45 mg/dL (7-20); CALCIUM 8.7 mg/dL (8.4-10.2); CARBON DIOXIDE 31 mmol/L (22-30); CHLORIDE 101 mmol/L (98-107); GLUCOSE 117 mg/dL (75-110); SODIUM 142.1 mmol/L (137-145)
[2018-07-22 15:15] LABS: POTASSIUM 4.7 mmol/L (3.6-5.0)
[2018-07-22] MEDS: GABAPENTIN 300 MG CAPSULE PO SCH ×3 (15:32→21:39)
[2018-07-22] MEDS: GABAPENTIN 100 MG CAPSULE PO SCH (15:59)
[2018-07-22] MEDS ORDERED: FUROSEMIDE INJ/PF 20 MG/2 ML SDV IV ONE (16:00)
--- NOTE | 2018-07-22 17:28 | PDOC PROGRESS REPORT ---
Subjective Progress Note for:: 07/22/18 Subjective:: ALEX KNIGHT is a 62 year old male who has coronary artery disease and COPD. Patient patient has history of CABG, ischemic cardiomyopathy status post AICD, chronic respiratory failure on home oxygen, prior stroke with residual aphasia who was admitted 05/11/18 for CHF exacerbation. The patient was seen on morning rounds. He was found sitting up to the recliner on supplemental oxygen via nasal cannula. He reports he had another episode of chest discomfort last night; unclear if this was reported to nursing. Per nursing he has been intermittently compliant with his oxygen and BiPap today and has been refusing numerous medications over the last few days. Review of the MAR shows that he has not been receiving his Kayexalate, Veltassa, or carvedilol due to patient refusal x 3 days (likely because of hyperkalemia, sinus tachycardia, resultant worsening of chest discomfort, dyspnea, and CHF). Patient denies fever, chills, headache, dizziness, chest pain, dyspnea, orthopnea, abdominal pain, nausea, vomiting, diarrhea. He has no questions or concerns at this time. No other concerns per nursing. Reason For Visit: CHF Physical Exam Vital Signs: Temp Pulse Resp BP Pulse Ox 98.2 F 133 H 36 H 111/80 100 07/22/18 08:51 07/22/18 14:00 07/22/18 11:57 07/22/18 12:00 07/22/18 12:00 Intake & Output 07/21/18 07/22/18 07/23/18 06:59 06:59 06:59 Intake Total 1462 2862 868 Output Total 700 700 200 Balance 762 2162 668 General appearance: PRESENT: no acute distress, obese, well-developed, well-nou rished Head exam: PRESENT: atraumatic, normocephalic Eye exam: PRESENT: conjunctiva pink, EOMI, PERRLA. ABSENT: scleral icterus Ear exam: PRESENT: normal external ear exam Mouth exam: PRESENT: moist, tongue midline Neck exam: ABSENT: carotid bruit, JVD, lymphadenopathy, thyromegaly Respiratory exam: PRESENT: crackles - Bibasilar, decreased breath sounds, prolonged expiratory phas, symmetrical, unlabored, other - Supplemental oxygen via nasal cannula. ABSENT: rales, rhonchi, wheezes Cardiovascular exam: PRESENT: +S1, +S2, tachycardia. ABSENT: diastolic murmur, rubs, systolic murmur Pulses: PRESENT: normal dorsalis pedis pul Vascular exam: PRESENT: normal capillary refill GI/Abdominal exam: PRESENT: normal bowel sounds, soft. ABSENT: distended, guarding, mass, organolmegaly, rebound, tenderness Rectal exam: PRESENT: deferred Extremities exam: PRESENT: full ROM. ABSENT: calf tenderness, clubbing, pedal edema Neurological exam: PRESENT: alert, awake, oriented to person, oriented to place, oriented to time, oriented to situation, CN II-XII grossly intact. ABSENT: motor sensory deficit Psychiatric exam: PRESENT: anxious, appropriate affect. ABSENT: homicidal ideation, suicidal ideation Skin exam: PRESENT: dry, intact, warm. ABSENT: cyanosis, rash Results Laboratory Results: 07/22/18 06:16 07/22/18 14:31 07/22/18 07/22/18 07/22/18 04:23 04:23 06:16 WBC Cancelled 5.9 RBC Cancelled 4.47 Hgb Cancelled 12.0 L Hct Cancelled 37.4 L MCV Cancelled 84 MCH Cancelled 26.8 L MCHC Cancelled 32.0 RDW Cancelled 15.2 H Plt Count Cancelled 178 Seg Neutrophils % 56.0 Lymphocytes % 20.4 Monocytes % 16.1 H Eosinophils % 6.3 H Basophils % 1.2 Absolute Neutrophils 3.3 Absolute Lymphocytes 1.2 Absolute Monocytes 0.9 Absolute Eosinophils 0.4 Absolute Basophils 0.1 Sodium 142.9 Potassium 5.8 H Chloride 103 Carbon Dioxide 33 H Anion Gap 7 BUN 46 H Creatinine 1.74 H Est GFR ( Amer) 48 L Est GFR (Non-Af Amer) 40 L Glucose 100 Calcium 8.9 Magnesium 2.0 07/22/18 14:31 WBC RBC Hgb Hct MCV MCH MCHC RDW Plt Count Seg Neutrophils % Lymphocytes % Monocytes % Eosinophils % Basophils % Absolute Neutrophils Absolute Lymphocytes Absolute Monocytes Absolute Eosinophils Absolute Basophils Sodium 142.1 Potassium 4.7 D Chloride 101 Carbon Dioxide 31 H Anion Gap 10 BUN 45 H Creatinine 1.61 H Est GFR ( Amer) 53 L Est GFR (Non-Af Amer) 43 L Glucose 117 H Calcium 8.7 Magnesium 05/11/18 05/11/18 05/11/18 09:35 09:35 09:35 Creatine Kinase 37 L CK-MB (CK-2) Troponin I 0.071 NT-Pro-B Natriuret Pep 6800 H 05/11/18 05/11/18 05/12/18 12:30 19:00 01:06 Creatine Kinase CK-MB (CK-2) Troponin I 0.067 0.064 0.050 NT-Pro-B Natriuret Pep 05/23/18 05/24/18 05/27/18 10:36 09:38 10:01 Creatine Kinase CK-MB (CK-2) Troponin I 0.060 NT-Pro-B Natriuret Pep 819 889 06/03/18 06/08/18 06/08/18 08:12 13:40 13:40 Creatine Kinase 39 L CK-MB (CK-2) 1.92 Troponin I 0.060 NT-Pro-B Natriuret Pep 1420 H 06/08/18 06/08/18 06/09/18 19:03 19:03 00:59 Creatine Kinase 36 L 34 L CK-MB (CK-2) 1.75 Troponin I 0.058 NT-Pro-B Natriuret Pep 06/09/18 06/09/18 06/09/18 00:59 08:04 08:04 Creatine Kinase 32 L CK-MB (CK-2) 1.58 1.79 Troponin I 0.063 0.064 NT-Pro-B Natriuret Pep 06/09/18 06/09/18 06/09/18 12:52 12:52 19:00 Creatine Kinase 46 L 31 L CK-MB (CK-2) 1.99 Troponin I 0.051 NT-Pro-B Natriuret Pep 06/09/18 06/25/18 07/04/18 19:00 07:35 08:21 Creatine Kinase CK-MB (CK-2) 1.80 Troponin I 0.072 0.054 NT-Pro-B Natriuret Pep 1660 H 07/20/18 07/20/18 07/20/18 22:16 22:16 22:16 Creatine Kinase 30 L CK-MB (CK-2) 2.79 Troponin I 0.077 NT-Pro-B Natriuret Pep 07/21/18 07/22/18 10:10 12:45 Creatine Kinase CK-MB (CK-2) Troponin I 0.076 0.064 NT-Pro-B Natriuret Pep 8000 H Impressions: Thoracentesis Ultrasound 05/13/18 10:06 IMPRESSION: SUCCESSFUL THORACENTESIS USING ULTRASOUND GUIDANCE. Chest X-Ray 07/22/18 00:00 IMPRESSION: CARDIAC ENLARGEMENT. VASCULAR CONGESTION. BASILAR ATELECTASIS AND BILATERAL PLEURAL EFFUSIONS. NO SIGNIFICANT INTERVAL CHANGE. Assessment & Plan - Diagnosis (1) Acute on chronic systolic (congestive) heart failure Is this a current diagnosis for this admission?: Yes Plan: Slight exacerbation today; fine bibasilar crackles noted with slight increase in BNP to 8000. He does remain on his baseline oxygen requirement and no dependent edema noted. Continue cardiac diet. Daily weights. Continue carvedilol, digoxin, lovastatin and aspirin. Reinforced importance of medications today; patient states that he understands importance of compliance. Resume maintenance furosemide. Strict I&O's. (2) DEANNA (acute kidney injury) Is this a current diagnosis for this admission?: Yes Plan: Improved; possibly at new baseline as the patient's creatinine has been consistently elevated > 1.30 since March. Worsening likely secondary to CHF. Cr improved to 1.61 today; though now with worsening CHF (crackles, increased proBNP) after only 1.5 L IV fluids. Now with CKD3 Avoid nephrotoxic medications as able. Allopurinol is discontinued. Gabapentin dosing has been decreased. Have resumed home dose of furosemide. Continue daily chemistries. (3) Acute and chronic respiratory failure with hypoxia Is this a current diagnosis for this admission?: Yes Plan: Acute exacerbation is resolved. At baseline. Continue supplemental oxygen and BiPAP as needed to maintain saturations >89% Optimize cardiac output; medications as above. (4) CAD (coronary artery disease) Is this a current diagnosis for this admission?: Yes Plan: Continue Coreg, [place] 3, and aspirin. Cardiac diet. (5) Gouty arthritis Is this a current diagnosis for this admission?: Yes Plan: Allopurinol discontinued secondary to DEANNA. Gabapentin decreased secondary to DEANNA. Tylenol and oxycodone as needed for pain. Avoid nephrotoxic medications for management of gout; consider low-dose steroids if he has repeat flareup. (6) Hyperkalemia Is this a current diagnosis for this admission?: Yes Plan: Resolved. Continue Veltassa. Kayexalate x1 today. (Pt was finally compliant with medication recommendations). Encourage p.o. fluids. Continue to monitor with daily chemistries. (7) Pleural effusion Is this a current diagnosis for this admission?: Yes Plan: Resolved. Secondary to CHF. Repeat chest x-ray today was stable; Cardiac enlargement with vascular congestion, bibasilar atelectasis and bilateral pleural effusions without significant interval change from previous study completed 07/03/2018. (8) Anxiety Is this a current diagnosis for this admission?: Yes Plan: Stable Continue sceduled BuSpar BID and Xanax 0.25 mg twice daily as needed. Greatly improved with Seroquel 25 mg nightly. 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 Continue aspirin, Lavaza beta-steve therapy. (10) Tachycardia Is this a current diagnosis for this admission?: Yes Plan: Sinus tachycardia w/ HR 120-130. BMP reveals hyperkalemia, DEANNA, otherwise unremarkable. Troponins are indeterminately elevated but trended down; no longer following. EKG demonstrated Sinus tach. Unclear etiology; likely secondary to recent medication noncompliance (has been intermittently refusing carvedilol for previous several days) with mild CHF exacerbation secondary to medication noncompliance We will continue to monitor on continuous cardiac telemetry. Continue Carvediolol 6.25 mg twice daily. Start diltiazem 30 mg q 6 hours (with holding parameters); ideally will not require medication residential. Consider Cardiology consultation if her remains tachycardic overnight. - Time Time Spent with patient: 15-24 minutes Medications reviewed and adjusted accordingly: Yes Anticipated discharge: Other - [place] foster home Within: within 48 hours
[2018-07-22] MEDS: DILTIAZEM HCL 30 MG TABLET PO SCH ×2 (18:45→23:56)
[2018-07-22] MEDS: FUROSEMIDE 20 MG TABLET PO SCH (18:46)
[2018-07-22] MEDS: PATIROMER 8.4 GM SUSP PACKET PO SCH (21:39)
[2018-07-22] MEDS: CETIRIZINE 10 MG TABLET PO SCH (21:39)
[2018-07-22] MEDS: ALPRAZOLAM 0.25 MG TABLET PO PRN (21:39)
[2018-07-22] MEDS: CARVEDILOL 6.25 MG TABLET PO SCH (21:39)
[2018-07-22] MEDS: QUETIAPINE FUMARATE 25 MG TABLET PO SCH (21:39)
[2018-07-22] MEDS: PHARMACY COMMUNICATION ORDER MC SCH (23:57)
[2018-07-23] MEDS: DILTIAZEM HCL 30 MG TABLET PO SCH ×2 (06:20→12:19)
[2018-07-23] MEDS: LANSOPRAZOLE 30 MG TAB.RAP.DR PO SCH ×2 (06:20→16:14)
[2018-07-23] MEDS: ACETAMINOPHEN 325 MG TABLET PO SCH ×3 (06:21→18:50)
[2018-07-23 07:40] LABS: ANION GAP 7 (5-19); BLOOD UREA NITROGEN 46 mg/dL (7-20); CALCIUM 8.3 mg/dL (8.4-10.2); CARBON DIOXIDE 35 mmol/L (22-30); CHLORIDE 101 mmol/L (98-107); GLUCOSE 101 mg/dL (75-110); POTASSIUM 4.7 mmol/L (3.6-5.0); SODIUM 143.1 mmol/L (137-145)
[2018-07-23] MEDS: BUSPIRONE HCL 10 MG TABLET PO SCH ×2 (09:11→21:31)
[2018-07-23] MEDS: FUROSEMIDE 20 MG TABLET PO SCH ×2 (09:11→18:50)
[2018-07-23] MEDS: ASPIRIN 81 MG TABLET, ENT COATED PO SCH (09:11)
[2018-07-23] MEDS: DOCUSATE SODIUM 100 MG CAPSULE PO SCH ×3 (09:12→18:50)
[2018-07-23] MEDS: CARVEDILOL 6.25 MG TABLET PO SCH ×2 (09:12→21:33)
[2018-07-23] MEDS: DIGOXIN 0.125 MG TABLET PO SCH (09:12)
[2018-07-23] MEDS: FLUTICASONE NASAL SPRAY 50 MCG/SPRY 120 SPRAY/16 GM NASL SCH (09:12)
[2018-07-23] MEDS: GABAPENTIN 100 MG CAPSULE PO SCH ×2 (09:13→14:40)
[2018-07-23] MEDS: POLYETHYLENE GLYCOL 3350 POWDER 17 GM/1 PACKET PO SCH ×2 (09:13→21:37)
[2018-07-23] MEDS: OMEGA-3 ACID ETHYL ESTERS 1 GM CAPSULE PO SCH ×2 (09:13→18:50)
[2018-07-23] MEDS: LIDOCAINE 5% (700 MG) TRANSDERMAL ADH..PATCH TP SCH (09:13)
[2018-07-23] MEDS ORDERED: METOPROLOL TARTRATE PF/INJ 5 MG/5 ML SDV IV ONE (14:42)
[2018-07-23] MEDS: TRAMADOL HCL 50 MG TABLET PO PRN ×2 (16:13→21:31)
[2018-07-23] MEDS ORDERED: AMIODARONE HCL 150 MG in DEXTROSE 5%-WATER 100 ML IV ONE (17:00)
[2018-07-23] MEDS ORDERED: DEXTROSE 5%-WATER 500 ML with AMIODARONE HCL 900 MG IV PRN ×2 (17:00)
--- NOTE | 2018-07-23 17:27 | PDOC PROGRESS REPORT ---
Subjective Progress Note for:: 07/23/18 Subjective:: ALEX KNIGHT is a 62 year old male who has coronary artery disease and COPD. Patient patient has history of CABG, ischemic cardiomyopathy status post AICD, chronic respiratory failure on home oxygen, prior stroke with residual aphasia who was admitted 05/11/18 for CHF exacerbation. The patient was seen on rounds. He was found sitting up to the recliner on pearl pplemental oxygen via nasal cannula. He reports generalized body aches, dyspnea, palpitations, and vague sense of feeling unwell. Of note, he continues to be intermittently noncompliant with Veltassa, Lasix, Cardizem, and carvedilol. He did take his a.m. medications after coaching by both myself and the nurse. The patient was unable to explain why he has been declining specific medications. Dr. Monique did round on the patient this afternoon and at that time the patient told him it was due to nausea, however, he has not complained of nausea to either myself or the nurse. Patient denies fever, chills, headache, dizziness, chest pain, dyspnea, orthopnea, abdominal pain, nausea, vomiting, diarrhea. He has no questions or concerns at this time. Discussed patient with Dr. Monique. IV Lopressor 5 mg x1 was attempted; heart rhythm slowed to the 90s and revealed atrial flutter with a 2-[address] Patel was reconsulted; had been assisting earlier this admission. Dr. Patel recommends providing amiodarone bolus and starting amiodarone drip. He will round on patient this afternoon. Reason For Visit: CHF Physical Exam Vital Signs: Temp Pulse Resp BP Pulse Ox 97.9 F 132 H 18 105/61 99 07/23/18 15:18 07/23/18 15:18 07/23/18 15:18 07/23/18 15:18 07/23/18 15:18 Intake & Output 07/22/18 07/23/18 07/24/18 06:59 06:59 06:59 Intake Total 2862 868 562 Output Total 700 500 500 Balance 2162 368 62 General appearance: PRESENT: no acute distress, obese, well-developed, well- nourished Head exam: PRESENT: atraumatic, normocephalic Eye exam: PRESENT: conjunctiva pink, EOMI, PERRLA. ABSENT: scleral icterus Ear exam: PRESENT: normal external ear exam Mouth exam: PRESENT: moist, tongue midline Neck exam: ABSENT: carotid bruit, JVD, lymphadenopathy, thyromegaly Respiratory exam: PRESENT: crackles - Bibasilar, prolonged expiratory phas, symmetrical, unlabored, other - Supplemental oxygen via nasal cannula. ABSENT: rales, rhonchi, wheezes Cardiovascular exam: PRESENT: irregular rhythm, +S1, +S2. ABSENT: diastolic murmur, rubs, systolic murmur Pulses: PRESENT: normal dorsalis pedis pul Vascular exam: PRESENT: normal capillary refill GI/Abdominal exam: PRESENT: normal bowel sounds, soft. ABSENT: distended, guarding, mass, organolmegaly, rebound, tenderness Rectal exam: PRESENT: deferred Extremities exam: PRESENT: full ROM. ABSENT: calf tenderness, clubbing, pedal edema Neurological exam: PRESENT: alert, awake, oriented to person, oriented to place, oriented to time, oriented to situation, CN II-XII grossly intact. ABSENT: motor sensory deficit Psychiatric exam: PRESENT: anxious, normal mood. ABSENT: homicidal ideation, suicidal ideation Skin exam: PRESENT: dry, intact, warm. ABSENT: cyanosis, rash Results Laboratory Results: 07/22/18 06:16 07/23/18 06:30 07/23/18 06:30 Sodium 143.1 Potassium 4.7 Chloride 101 Carbon Dioxide 35 H Anion Gap 7 BUN 46 H Creatinine 1.63 H Est GFR ( Amer) 52 L Est GFR (Non-Af Amer) 43 L Glucose 101 Calcium 8.3 L 05/11/18 05/11/18 05/11/18 09:35 09:35 09:35 Creatine Kinase 37 L CK-MB (CK-2) Troponin I 0.071 NT-Pro-B Natriuret Pep 6800 H 05/11/18 05/11/18 05/12/18 12:30 19:00 01:06 Creatine Kinase CK-MB (CK-2) Troponin I 0.067 0.064 0.050 NT-Pro-B Natriuret Pep 05/23/18 05/24/18 05/27/18 10:36 09:38 10:01 Creatine Kinase CK-MB (CK-2) Troponin I 0.060 NT-Pro-B Natriuret Pep 819 889 06/03/18 06/08/18 06/08/18 08:12 13:40 13:40 Creatine Kinase 39 L CK-MB (CK-2) 1.92 Troponin I 0.060 NT-Pro-B Natriuret Pep 1420 H 06/08/18 06/08/18 06/09/18 19:03 19:03 00:59 Creatine Kinase 36 L 34 L CK-MB (CK-2) 1.75 Troponin I 0.058 NT-Pro-B Natriuret Pep 06/09/18 06/09/18 06/09/18 00:59 08:04 08:04 Creatine Kinase 32 L CK-MB (CK-2) 1.58 1.79 Troponin I 0.063 0.064 NT-Pro-B Natriuret Pep 06/09/18 06/09/18 06/09/18 12:52 12:52 19:00 Creatine Kinase 46 L 31 L CK-MB (CK-2) 1.99 Troponin I 0.051 NT-Pro-B Natriuret Pep 06/09/18 06/25/18 07/04/18 19:00 07:35 08:21 Creatine Kinase CK-MB (CK-2) 1.80 Troponin I 0.072 0.054 NT-Pro-B Natriuret Pep 1660 H 07/20/18 07/20/18 07/20/18 22:16 22:16 22:16 Creatine Kinase 30 L CK-MB (CK-2) 2.79 Troponin I 0.077 NT-Pro-B Natriuret Pep 07/21/18 07/22/18 10:10 12:45 Creatine Kinase CK-MB (CK-2) Troponin I 0.076 0.064 NT-Pro-B Natriuret Pep 8000 H Impressions: Thoracentesis Ultrasound 05/13/18 10:06 IMPRESSION: SUCCESSFUL THORACENTESIS USING ULTRASOUND GUIDANCE. Chest X-Ray 07/22/18 00:00 IMPRESSION: CARDIAC ENLARGEMENT. VASCULAR CONGESTION. BASILAR ATELECTASIS AND BILATERAL PLEURAL EFFUSIONS. NO SIGNIFICANT INTERVAL CHANGE. Assessment & Plan - Diagnosis (1) Acute on chronic systolic (congestive) heart failure Is this a current diagnosis for this admission?: Yes Plan: Unchanged today; fine bibasilar crackles noted with slight increase in BNP to 8000. He does remain on his baseline oxygen requirement and no dependent edema noted. Continue carvedilol, digoxin, lovastatin and aspirin. Reinforced importance of medications today; patient states that he understands importance of compliance. Cardiology is consulted; appreciate Dr. Campbell's assistance. Upgraded to IMCU and placed on amiodarone drip. Continue maintenance furosemide. Strict I&O's and daily weights Continue cardiac diet (2) DEANNA (acute kidney injury) Is this a current diagnosis for this admission?: Yes Plan: Improved; possibly at new baseline as the patient's creatinine has been consistently elevated > 1.30 since March. Worsening likely secondary to CHF. Cr improved to 1.63 today; though now with worsening CHF (crackles, increased proBNP) Now with CKD3 Avoid nephrotoxic medications as able. Allopurinol is discontinued. Gabapentin dosing has been decreased. Have resumed home dose of furosemide. Continue daily chemistries. (3) Acute and chronic respiratory failure with hypoxia Is this a current diagnosis for this admission?: Yes Plan: Acute exacerbation is resolved. At baseline. Continue supplemental oxygen and BiPAP as needed to maintain saturations >89% Optimize cardiac output; medications as above. (4) CAD (coronary artery disease) Is this a current diagnosis for this admission?: Yes Plan: Continue Coreg, [place] 3, and aspirin. Cardiac diet. (5) Gouty arthritis Is this a current diagnosis for this admission?: Yes Plan: Allopurinol discontinued secondary to DENANA. Gabapentin decreased secondary to DEANNA. Tylenol and tramadol as needed for pain. Avoid nephrotoxic medications for management of gout; consider low-dose steroids if he has repeat flareup. (6) Hyperkalemia Is this a current diagnosis for this admission?: Yes Plan: Resolved. Continue Veltassa. Kayexalate x1 yesterday. Patient remains intermittently noncompliant with Veltassa. Encourage p.o. fluids. Continue to monitor with daily chemistries. (7) Pleural effusion Is this a current diagnosis for this admission?: Yes Plan: Resolved. Secondary to CHF. Repeat chest x-ray today was stable; Cardiac enlargement with vascular congestion, bibasilar atelectasis and bilateral pleural effusions without significant interval change from previous study completed 07/03/2018. (8) Anxiety Is this a current diagnosis for this admission?: Yes Plan: Stable Continue sceduled BuSpar BID and Xanax 0.25 mg twice daily as needed. Greatly improved with Seroquel 25 mg nightly. 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 Continue aspirin, Lavaza beta-steve therapy. (10) Tachycardia Is this a current diagnosis for this admission?: Yes Plan: Now in a flutter with 2-1 conduction; continues to have heart rate in the 130s. Previous telemetry and EKG review demonstrated sinus tachycardia w/ HR 120-130; likely was a flutter throughout but was unable to be identified due to conduction. BMP is improved; creatinine stable, hyperkalemia resolved. Troponins are indeterminately elevated but trended down; no longer following. Unclear etiology; likely secondary to recent medication noncompliance (has been intermittently refusing carvedilol for previous several days) with mild CHF exacerbation secondary to medication noncompliance We will continue to monitor on continuous cardiac telemetry. Continue Carvediolol 6.25 mg twice daily. Cardiology was consulted; appreciate Dr. Patel's assistance. Patient is upgraded to IMCU and placed on amiodarone drip. - Time Time Spent with patient: 35 or more minutes Medications reviewed and adjusted accordingly: Yes
[2018-07-23] MEDS: GABAPENTIN 300 MG CAPSULE PO SCH (21:31)
[2018-07-23] MEDS: CETIRIZINE 10 MG TABLET PO SCH (21:33)
[2018-07-23] MEDS: PATIROMER 8.4 GM SUSP PACKET PO SCH (21:37)
[2018-07-23] MEDS: PHARMACY COMMUNICATION ORDER MC SCH (21:37)
[2018-07-23] MEDS: QUETIAPINE FUMARATE 25 MG TABLET PO SCH (21:43)
--- NOTE | 2018-07-23 22:07 | EKG REPORT ---
SEVERITY:- ABNORMAL ECG - ATRIAL FLUTTER WITH VARIABLE AV BLOCK INFERIOR INFARCT, AGE INDETERMINATE CONSIDER ANTERIOR INFARCT LATERAL LEADS ARE ALSO INVOLVED : Confirmed by: Pooja Patel 23-Jul-2018 22:07:00
--- NOTE | 2018-07-23 23:06 | PDOC PROGRESS REPORT ---
Subjective Progress Note for:: 07/23/18 Subjective:: ALEX Guadarrama KNIGHT is a 62 year old male who has coronary artery disease and COPD. Patient patient has history of CABG, ischemic cardiomyopathy status post AICD, chronic respiratory failure on home oxygen, prior stroke with residual aphasia. Patient noted to be in atrial fibrillation with rapid ventricular response. Patient was previously seen by me earlier this admission. He just could not find a bed in the [place] [facility] and has been waiting for bed place ment but in the meantime developed atrial fibrillation with rapid ventricular response. Patient has been noted to refuse medications. Patient medications were reviewed. Reason For Visit: CHF Physical Exam Vital Signs: Temp Pulse Resp BP Pulse Ox 97.9 F 132 H 18 105/61 99 07/23/18 15:18 07/23/18 15:18 07/23/18 15:18 07/23/18 15:18 07/23/18 15:18 Intake & Output 07/22/18 07/23/18 07/24/18 06:59 06:59 06:59 Intake Total 2862 868 562 Output Total 700 500 500 Balance 2162 368 62 General appearance: PRESENT: no acute distress, well-developed, well-nourished Head exam: PRESENT: atraumatic, normocephalic Eye exam: PRESENT: conjunctiva pink, EOMI, PERRLA. ABSENT: scleral icterus Ear exam: PRESENT: normal external ear exam Mouth exam: PRESENT: moist, tongue midline Neck exam: ABSENT: carotid bruit, JVD, lymphadenopathy, thyromegaly Respiratory exam: PRESENT: clear to auscultation rahul. ABSENT: rales, rhonchi, wheezes Cardiovascular exam: PRESENT: RRR. ABSENT: diastolic murmur, rubs, systolic murmur Pulses: PRESENT: normal dorsalis pedis pul Vascular exam: PRESENT: normal capillary refill GI/Abdominal exam: PRESENT: normal bowel sounds, soft. ABSENT: distended, guarding, mass, organolmegaly, rebound, tenderness Rectal exam: PRESENT: deferred Extremities exam: PRESENT: full ROM. ABSENT: calf tenderness, clubbing, pedal edema Neurological exam: PRESENT: alert, awake, oriented to person, oriented to place, oriented to time, oriented to situation, CN II-XII grossly intact. ABSENT: motor sensory deficit Psychiatric exam: PRESENT: agitated, normal mood, unusual affect. ABSENT: homicidal ideation, suicidal ideation Skin exam: PRESENT: dry, intact, warm. ABSENT: cyanosis, rash Results Laboratory Results: 07/22/18 06:16 07/23/18 06:30 07/23/18 06:30 Sodium 143.1 Potassium 4.7 Chloride 101 Carbon Dioxide 35 H Anion Gap 7 BUN 46 H Creatinine 1.63 H Est GFR ( Amer) 52 L Est GFR (Non-Af Amer) 43 L Glucose 101 Calcium 8.3 L 05/11/18 05/11/18 05/11/18 09:35 09:35 09:35 Creatine Kinase 37 L CK-MB (CK-2) Troponin I 0.071 NT-Pro-B Natriuret Pep 6800 H 05/11/18 05/11/18 05/12/18 12:30 19:00 01:06 Creatine Kinase CK-MB (CK-2) Troponin I 0.067 0.064 0.050 NT-Pro-B Natriuret Pep 05/23/18 05/24/18 05/27/18 10:36 09:38 10:01 Creatine Kinase CK-MB (CK-2) Troponin I 0.060 NT-Pro-B Natriuret Pep 819 889 06/03/18 06/08/18 06/08/18 08:12 13:40 13:40 Creatine Kinase 39 L CK-MB (CK-2) 1.92 Troponin I 0.060 NT-Pro-B Natriuret Pep 1420 H 06/08/18 06/08/18 06/09/18 19:03 19:03 00:59 Creatine Kinase 36 L 34 L CK-MB (CK-2) 1.75 Troponin I 0.058 NT-Pro-B Natriuret Pep 06/09/18 06/09/18 06/09/18 00:59 08:04 08:04 Creatine Kinase 32 L CK-MB (CK-2) 1.58 1.79 Troponin I 0.063 0.064 NT-Pro-B Natriuret Pep 06/09/18 06/09/18 06/09/18 12:52 12:52 19:00 Creatine Kinase 46 L 31 L CK-MB (CK-2) 1.99 Troponin I 0.051 NT-Pro-B Natriuret Pep 06/09/18 06/25/18 07/04/18 19:00 07:35 08:21 Creatine Kinase CK-MB (CK-2) 1.80 Troponin I 0.072 0.054 NT-Pro-B Natriuret Pep 1660 H 07/20/18 07/20/18 07/20/18 22:16 22:16 22:16 Creatine Kinase 30 L CK-MB (CK-2) 2.79 Troponin I 0.077 NT-Pro-B Natriuret Pep 07/21/18 07/22/18 10:10 12:45 Creatine Kinase CK-MB (CK-2) Troponin I 0.076 0.064 NT-Pro-B Natriuret Pep 8000 H EKG Comments: Atrial flutter with variable conduction Impressions: Thoracentesis Ultrasound 05/13/18 10:06 IMPRESSION: SUCCESSFUL THORACENTESIS USING ULTRASOUND GUIDANCE. Chest X-Ray 07/22/18 00:00 IMPRESSION: CARDIAC ENLARGEMENT. VASCULAR CONGESTION. BASILAR ATELECTASIS AND BILATERAL PLEURAL EFFUSIONS. NO SIGNIFICANT INTERVAL CHANGE. Assessment & Plan - Diagnosis (1) Acute on chronic systolic (congestive) heart failure Is this a current diagnosis for this admission?: Yes (2) Pleural effusion Is this a current diagnosis for this admission?: Yes (3) Atrial fibrillation Qualifiers: Atrial fibrillation type: paroxysmal Qualified Code(s): I48.0 - Paroxysmal atrial fibrillation Is this a current diagnosis for this admission?: Yes (4) Coronary artery disease Qualifiers: Coronary Disease-Associated Artery/Lesion type: unspecified vessel or lesion type [place] vs. transplanted heart: [place] heart Associated angina: angina presence unspecified Qualified Code(s): I25.10 - Atherosclerotic heart disease of [place] coronary artery without angina pectoris Is this a current diagnosis for this admission?: Yes (5) History of CVA (cerebrovascular accident) Is this a current diagnosis for this admission?: Yes - Notes Notes: Atrial flutter fibrillation with rapid ventricle response: recommend amiodarone bolus hundred protocol. Hopefully patient will convert to sinus rhythm. Would also recommend chronic anticoagulation in view of high-risk features. Pleural effusion: this seems to have improved significantly. Coronary artery disease: patient is symptomatically stable. History of [place] vascular accident: recommend chronic anticoagulation. Congestive heart failure: seems fairly compensated. - Time Time with patient: 15-25 minutes - Management plans discussed with roger Garcia Medications reviewed and adjusted accordingly: Yes
[2018-07-24] MEDS: ACETAMINOPHEN 325 MG TABLET PO SCH ×4 (00:09→18:39)
[2018-07-24] MEDS ORDERED: OLANZAPINE INJ/PF 10 MG SDV IM ONE ×2 (01:28→02:00)
[2018-07-24] MEDS: LANSOPRAZOLE 30 MG TAB.RAP.DR PO SCH ×2 (05:43→18:40)
[2018-07-24 07:53] LABS: HEMATOCRIT 36.9 % (37.9-51.0); HEMOGLOBIN 12.2 g/dL (13.5-17.0); MEAN CORPUSCULAR HEMOGLOBIN 27.3 pg (27.0-33.4); MEAN CORPUSCULAR VOLUME 83 fl (80-97); PLATELET COUNT 209 10^3/uL (150-450); RED BLOOD COUNT 4.47 10^6/uL (4.35-5.55); RED CELL DISTRIBUTION WIDTH 15.3 % (11.5-14.0); WHITE BLOOD COUNT 6.9 10^3/uL (4.0-10.5)
[2018-07-24 07:59] LABS: ANION GAP 12 (5-19); BLOOD UREA NITROGEN 51 mg/dL (7-20); CALCIUM 8.6 mg/dL (8.4-10.2); CARBON DIOXIDE 32 mmol/L (22-30); CHLORIDE 98 mmol/L (98-107); GLUCOSE 165 mg/dL (75-110); PHOSPHORUS 4.8 mg/dL (2.5-4.5); POTASSIUM 5.3 mmol/L (3.6-5.0); SODIUM 141.5 mmol/L (137-145)
--- NOTE | 2018-07-24 09:28 | RADIOLOGY REPORT (SQ) ---
EXAM DESCRIPTION: CHEST SINGLE VIEW COMPLETED DATE/TIME: 07/24/2018 9:08 am REASON FOR STUDY: dyspnea COMPARISON: 07/22/2017 EXAM PARAMETERS: NUMBER OF VIEWS: One view. TECHNIQUE: Single frontal radiographic view of the chest acquired. RADIATION DOSE: NA LIMITATIONS: None. FINDINGS: LUNGS AND PLEURA: Bilateral pleural effusions and basilar airspace disease, unchanged fin dings. No pneumothorax. MEDIASTINUM AND HILAR STRUCTURES: Stable appearance. HEART AND VASCULAR STRUCTURES: Generalized marked cardiomegaly and mild pulmonary vascular congestio n, unchanged findings. BONES: No acute findings. HARDWARE: Cardiac pacemaker. Surgical metallic clips at the base of the neck on the right. OTHER: No other significant finding. IMPRESSION: 1. No significant interval changes since the prior study dated 07/22/2018. TECHNICAL DOCUMENTATION: JOB ID: [id number] [employer]- All Rights Reserved Reading location - IP/workstation name: [email or web address]
[2018-07-24] MEDS: DOCUSATE SODIUM 100 MG CAPSULE PO SCH ×3 (10:32→18:39)
[2018-07-24] MEDS: OMEGA-3 ACID ETHYL ESTERS 1 GM CAPSULE PO SCH ×2 (10:32→18:39)
[2018-07-24] MEDS: ASPIRIN 81 MG TABLET, ENT COATED PO SCH (10:32)
[2018-07-24] MEDS: BUSPIRONE HCL 10 MG TABLET PO SCH ×2 (10:33→22:47)
[2018-07-24] MEDS: FLUTICASONE NASAL SPRAY 50 MCG/SPRY 120 SPRAY/16 GM NASL SCH (10:34)
[2018-07-24] MEDS: DIGOXIN 0.125 MG TABLET PO SCH (10:35)
[2018-07-24] MEDS: POLYETHYLENE GLYCOL 3350 POWDER 17 GM/1 PACKET PO SCH ×2 (10:37→22:47)
[2018-07-24] MEDS: CARVEDILOL 6.25 MG TABLET PO SCH (10:38)
[2018-07-24] MEDS: GABAPENTIN 100 MG CAPSULE PO SCH ×2 (10:39→14:25)
[2018-07-24] MEDS: FUROSEMIDE 20 MG TABLET PO SCH ×2 (10:41→18:38)
[2018-07-24] MEDS: LIDOCAINE 5% (700 MG) TRANSDERMAL ADH..PATCH TP SCH (10:47)
--- NOTE | 2018-07-24 11:16 | Progress Note ---
Provider Note Provider Note: Patient has been known to refuse carvedilol. Alternative would be metoprolol succinate, bisoprolol which has been used in CHF patient in trials. If for some reason patient does not tolerate better steve then only use calcium channel steve for rate control. Patient already on small dose of dioxin which should be monitored closely. Recommend amiodarone therapy for both rate control and chemical conversion. Would recommend starting patient on chronic anticoagulation, Eliquis is preferred in renal dysfunction patient. Please call me if any further help is needed.
[2018-07-24] MEDS: METOPROLOL SUCCINATE 25 MG TAB.SR.24H PO SCH (14:21)
[2018-07-24 14:24] LABS: VENOUS BLOOD BASE EXCESS 4.8 mmol/L; VENOUS BLOOD HCO3 34.1 mmol/L (20-32); VENOUS BLOOD PH 7.27 (7.30-7.42)
[2018-07-24 14:33] LABS: VENOUS BLOOD PCO2 75.4 mmHg (35-63)
[2018-07-24 14:44] LABS: ANION GAP 9 (5-19); BLOOD UREA NITROGEN 57 mg/dL (7-20); CALCIUM 8.5 mg/dL (8.4-10.2); CARBON DIOXIDE 33 mmol/L (22-30); CHLORIDE 98 mmol/L (98-107); GLUCOSE 126 mg/dL (75-110); POTASSIUM 5.2 mmol/L (3.6-5.0); SODIUM 140.2 mmol/L (137-145)
[2018-07-24] MEDS ORDERED: LORAZEPAM INJ 2 MG/1 ML VIAL IV PRN (16:00)
--- NOTE | 2018-07-24 17:08 | PDOC PROGRESS REPORT ---
Subjective Progress Note for:: 07/24/18 Subjective:: ALEX KNIGHT is a 62 year old male who has coronary artery disease and COPD. Patient patient has history of CABG, ischemic cardiomyopathy status post AICD, chronic respiratory failure on home oxygen, prior stroke with residual aphasia who was admitted 05/11/18 for CHF exacerbation. The patient was seen on morning rounds. He was found sitting up to the recliner on supplemental oxygen via nasal cannula sleeping soundly. Shortly prior to my assessment, the patient had been agitated (yelling and kicking at nursing staff). He was seen again mid afternoon. At that time he was sitting up comfortably on nasal cannula. He reported that he was tired but denied active chest pain, palpitations, dyspnea, and orthopnea. At that time he had no questions or co ncerns. I was called to the bedside by nursing late this afternoon for report of decreased responsiveness. The patient was found to be lethargic. He woke easily, however, I was unable to understand any of his speech. He is difficult to understand, however, I have not personally had difficulty with him in the past and at this time he is completely incomprehensible. He is noted to repetitively fall back to sleep during our assessment. Per nursing, the patient does continue to intermittently refuse medications and BiPAP. They have been asked to document this clearly and more thoroughly in their charting. Reason For Visit: CHF Physical Exam Vital Signs: Temp Pulse Resp BP Pulse Ox 97.8 F 120 H 33 H 111/70 96 07/24/18 03:07 07/24/18 16:00 07/24/18 16:25 07/24/18 12:00 07/24/18 16:25 Intake & Output 07/23/18 07/24/18 07/25/18 06:59 06:59 06:59 Intake Total 868 862 236 Output Total 500 550 Balance 368 312 236 General appearance: PRESENT: no acute distress, obese, well-developed, well- nourished Head exam: PRESENT: atraumatic, normocephalic Eye exam: PRESENT: conjunctiva pink, EOMI, PERRLA. ABSENT: scleral icterus Mouth exam: PRESENT: moist, tongue midline Neck exam: ABSENT: carotid bruit, JVD, lymphadenopathy, thyromegaly Respiratory exam: PRESENT: decreased breath sounds - Throughout, symmetrical, unlabored, other - shallow; on supplemental oxygen. Encouraged to wear BiPAP. ABSENT: rales, rhonchi, wheezes Cardiovascular exam: PRESENT: +S1, +S2, tachycardia - Aflutter 2:1 conduction. ABSENT: diastolic murmur, rubs, systolic murmur Pulses: PRESENT: normal dorsalis pedis pul Vascular exam: PRESENT: normal capillary refill GI/Abdominal exam: PRESENT: normal bowel sounds, soft. ABSENT: distended, guarding, mass, organolmegaly, rebound, tenderness Rectal exam: PRESENT: deferred Extremities exam: PRESENT: full ROM, +1 edema - Tight, nonpitting edema BLE. ABSENT: calf tenderness, clubbing, pedal edema Neurological exam: PRESENT: alert, awake, oriented to person, oriented to place, oriented to time, oriented to situation, CN II-XII grossly intact, other - lethargic. ABSENT: motor sensory deficit Psychiatric exam: PRESENT: appropriate affect, normal mood. ABSENT: homicidal ideation, suicidal ideation Skin exam: PRESENT: dry, intact, warm. ABSENT: cyanosis, rash Results Laboratory Results: 07/24/18 07:27 07/24/18 14:15 07/24/18 07/24/18 07/24/18 07:27 07:27 14:15 WBC 6.9 RBC 4.47 Hgb 12.2 L Hct 36.9 L MCV 83 MCH 27.3 MCHC 33.0 RDW 15.3 H Plt Count 209 VBG pH 7.27 L VBG pCO2 75.4 H* VBG HCO3 34.1 H VBG Base Excess 4.8 Sodium 141.5 Potassium 5.3 H Chloride 98 Carbon Dioxide 32 H Anion Gap 12 BUN 51 H Creatinine 2.25 H Est GFR ( Amer) 36 L Est GFR (Non-Af Amer) 30 L Glucose 165 H Calcium 8.6 Phosphorus 4.8 H Magnesium 2.0 07/24/18 14:15 WBC RBC Hgb Hct MCV MCH MCHC RDW Plt Count VBG pH VBG pCO2 VBG HCO3 VBG Base Excess Sodium 140.2 Potassium 5.2 H Chloride 98 Carbon Dioxide 33 H Anion Gap 9 BUN 57 H Creatinine 2.34 H Est GFR ( Amer) 34 L Est GFR (Non-Af Amer) 28 L Glucose 126 H Calcium 8.5 Phosphorus Magnesium 05/11/18 05/11/18 05/11/18 09:35 09:35 09:35 Creatine Kinase 37 L CK-MB (CK-2) Troponin I 0.071 NT-Pro-B Natriuret Pep 6800 H 05/11/18 05/11/18 05/12/18 12:30 19:00 01:06 Creatine Kinase CK-MB (CK-2) Troponin I 0.067 0.064 0.050 NT-Pro-B Natriuret Pep 05/23/18 05/24/18 05/27/18 10:36 09:38 10:01 Creatine Kinase CK-MB (CK-2) Troponin I 0.060 NT-Pro-B Natriuret Pep 819 889 06/03/18 06/08/18 06/08/18 08:12 13:40 13:40 Creatine Kinase 39 L CK-MB (CK-2) 1.92 Troponin I 0.060 NT-Pro-B Natriuret Pep 1420 H 06/08/18 06/08/18 06/09/18 19:03 19:03 00:59 Creatine Kinase 36 L 34 L CK-MB (CK-2) 1.75 Troponin I 0.058 NT-Pro-B Natriuret Pep 06/09/18 06/09/18 06/09/18 00:59 08:04 08:04 Creatine Kinase 32 L CK-MB (CK-2) 1.58 1.79 Troponin I 0.063 0.064 NT-Pro-B Natriuret Pep 06/09/18 06/09/18 06/09/18 12:52 12:52 19:00 Creatine Kinase 46 L 31 L CK-MB (CK-2) 1.99 Troponin I 0.051 NT-Pro-B Natriuret Pep 06/09/18 06/25/18 07/04/18 19:00 07:35 08:21 Creatine Kinase CK-MB (CK-2) 1.80 Troponin I 0.072 0.054 NT-Pro-B Natriuret Pep 1660 H 07/20/18 07/20/18 07/20/18 22:16 22:16 22:16 Creatine Kinase 30 L CK-MB (CK-2) 2.79 Troponin I 0.077 NT-Pro-B Natriuret Pep 07/21/18 07/22/18 07/24/18 10:10 12:45 14:15 Creatine Kinase CK-MB (CK-2) Troponin I 0.076 0.064 NT-Pro-B Natriuret Pep 8000 H 49647 H Impressions: Thoracentesis Ultrasound 05/13/18 10:06 IMPRESSION: SUCCESSFUL THORACENTESIS USING ULTRASOUND GUIDANCE. Chest X-Ray 07/24/18 00:00 IMPRESSION: 1. No significant interval changes since the prior study dated 07/22/2018. Assessment & Plan - Diagnosis (1) Acute on chronic systolic (congestive) heart failure Is this a current diagnosis for this admission?: Yes Plan: Worsened today; fine bibasilar crackles noted, proBNP trending up, +1 BLE edema. He does remain on his baseline oxygen requirement and no dependent edema noted. Discussed with Dr. Patel. Recommended discontinuing carvedilol and diltiazem. Start metoprolol succinate 25 mg once daily. Continue amiodarone drip; transition to p.o. tomorrow morning. Continue lovastatin and aspirin. Reinforced importance of medications today; patient states that he understands importance of compliance. Cardiology is consulted; appreciate Dr. Patel's assistance. Continue maintenance furosemide. Strict I&O's and daily weights Continue cardiac diet (2) DEANNA (acute kidney injury) Is this a current diagnosis for this admission?: Yes Plan: Worsen; possibly at new baseline as the patient's creatinine has been consistently elevated > 1.30 since March. Worsening likely secondary to CHF. Creatinine increased to 2.34 this afternoon up from 1.63 yesterday. Now with CKD3 Avoid nephrotoxic medications as able. Allopurinol is discontinued. Gabapentin discontinued. Zyrtec decreased. Remaining medications reviewed for renal dosing. Continuing furosemide secondary to CHF exacerbation as this is the likely cause of his acute kidney injury. We will consult nephrology; appreciate Dr. Patton's assistance. Continue daily chemistries. (3) Acute and chronic respiratory failure with hypoxia Is this a current diagnosis for this admission?: Yes Plan: Worsened. VBG shows CO2 75. Unable to obtain ABG after several times today. Chest x-ray this morning is unchanged from previous; cardiomegaly with vascular congestion and bilateral pleural effusions. Chest CT pending. Patient was strongly encouraged to wear BiPAP; personally placed on BiPAP. Will obtain follow-up ABG. Continue supplemental oxygen and BiPAP as needed to maintain saturations >89% Optimize cardiac output; medications as above. Start scheduled nebulizer treatments. IV Solu-Medrol. (4) CAD (coronary artery disease) Is this a current diagnosis for this admission?: Yes Plan: Continue metoprolol, [employer] [facility], and aspirin. Cardiac diet. (5) Gouty arthritis Is this a current diagnosis for this admission?: Yes Plan: Allopurinol discontinued secondary to DEANNA. Gabapentin discontinued secondary to DEANNA. Tylenol and tramadol as needed for pain. Avoid nephrotoxic medications for management of gout; consider low-dose steroids if he has repeat flareup. (6) Hyperkalemia Is this a current diagnosis for this admission?: Yes Plan: Recurrent secondary to medication noncompliance. Potassium 5.2 today. Continue Velt[place]. Patient remains intermittently noncompliant Continue to monitor with daily chemistries. (7) Pleural effusion Is this a current diagnosis for this admission?: Yes Plan: Stable. Secondary to CHF. Repeat chest x-ray today was stable; Cardiac enlargement with vascular congestion, bibasilar atelectasis and bilateral pleural effusions without significant interval change from previous study completed 07/03/2018. Chest CT pending. (8) Anxiety Is this a current diagnosis for this admission?: Yes Plan: Stable Continue sceduled BuSpar BID and Ativan 0.5 mg every 4 hours as needed. Greatly improved with Seroquel 25 mg nightly. 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 Decreased alertness today. No focal deficits or facial asymmetry noted. However, with worsened aphasia. Head CT pending Continue aspirin, [place], beta-steve therapy. (10) Tachycardia Is this a current diagnosis for this admission?: Yes Plan: Now in a flutter with 2-1 conduction; continues to have heart rate in the 130s. Previous telemetry and EKG review demonstrated sinus tachycardia w/ HR 120-130; likely was a flutter throughout but was unable to be identified due to conduction. BMP and creatinine increased. Troponins are indeterminately elevated but trended down; no longer following. Unclear etiology; likely secondary to recent medication noncompliance (has been intermittently refusing carvedilol for previous several days) with mild CHF exacerbation secondary to medication noncompliance We will continue to monitor on continuous cardiac telemetry. Cardiology was consulted; appreciate Dr. Patel's assistance. Patient is upgraded to IMCU and placed on amiodarone drip. Transition to p.o. amiodarone in the morning. Stop carvedilol, start once daily metoprolol succinate. Start renally dosed Eliquis. - Time Time Spent with patient: 35 or more minutes Medications reviewed and adjusted accordingly: Yes - Plan Summary Plan Summary: Patient status, vital signs, imaging, laboratory results, and plan of care rose lei and developed with Dr. Monique.
[2018-07-24] MEDS ORDERED: METHYLPREDNISOLONE INJ 125 MG/2 ML SDV IV ONE (17:30)
[2018-07-24] MEDS ORDERED: APIXABAN 2.5 MG TABLET PO SCH (18:00)
[2018-07-24 19:24] LABS: ARTERIAL BLOOD BASE EXCESS 5.1 mmol/L; ARTERIAL BLOOD FIO2 30%; ARTERIAL BLOOD H2CO3 2.04 mmol/L (1.05-1.35); ARTERIAL BLOOD HCO3 33.4 mmol/L (20-24); ARTERIAL BLOOD O2 SATURATION 96.9 % (94-98); ARTERIAL BLOOD PCO2 67.8 mmHg (35-45); ARTERIAL BLOOD PH 7.31 (7.35-7.45); ARTERIAL BLOOD PO2 101.6 mmHg (80-100); ARTERIAL BLOOD TOTAL CO2 35.5 mmol/L (23-27)
--- NOTE | 2018-07-24 19:50 | RADIOLOGY REPORT (SQ) ---
EXAM DESCRIPTION: CT HEAD WITHOUT COMPLETED DATE/TIME: 07/24/2018 7:04 pm REASON FOR STUDY: AMS, lethargy COMPARISON: 07/13/2017 TECHNIQUE: Axial images acquired through the brain without intravenous contrast. Images reviewed wi th bone, brain and subdural windows. Images stored on PACS. All CT scanners at this facility use dose modulation, iterative reconstruction, and/or weight based d osing when appropriate to reduce radiation dose to as low as reasonably achievable (ALARA). [facility]: Dose Right [facility]: CareDose [facility]: Dose Right [facility]: Teradose 4D [facility]: Smart iZotope RADIATION DOSE: CT Rad equipment meets quality standard of care and radiation dose reduction techniq ues were employed. CTDIvol: 53.2 mGy. DLP: 991 mGy-cm.mGy. LIMITATIONS: None. FINDINGS: VENTRICLES: Prominent. CEREBRUM: No hemorrhage. No midline shift. Multiple Areas of low density in the white matter due t o chronic ischemic change. No evidence for acute infarction. CEREBELLUM: No masses. No hemorrhage. No alteration of density. No evidence for acute infarction. EXTRAAXIAL SPACES: Age-related involutional change. No fluid collections. No masses. ORBITS AND GLOBE: No intra- or extraconal masses. Normal contour of globe without masses. CALVARIUM: No fracture. PARANASAL SINUSES: No fluid or mucosal thickening. SOFT TISSUES: No mass or hematoma. OTHER: No other significant finding. IMPRESSION: No hemorrhage. No midline shift. Multiple Areas of low density in the white matter due to chronic ischemic change. No evidence for acute infarction. EVIDENCE OF ACUTE STROKE: NO. TECHNICAL DOCUMENTATION: JOB ID: [id number] Quality ID # [id number]: Final reports with documentation of one or more dose reduction techniques (e.g., Au tomated exposure control, adjustment of the mA and/or kV according to patient size, use of iterative reconstruction technique) 2010 [employer]- All Rights Reserved Reading location - IP/workstation name: [email or web address]
--- NOTE | 2018-07-24 20:13 | RADIOLOGY REPORT (SQ) ---
CT CHEST WITHOUT IV CONTRAST HISTORY: Dyspnea. COMPARISON: None. TECHNIQUE: CT scan of the chest without IV contrast. This exam was performed according to our departmental dose-optimization program, which includes automated exposure control, adjustment of the mA and/or kV according to patient size and/or use of iterative reconstruction technique. FINDINGS: There are moderate-sized bilateral pleural effusions, greater on the right, with adjacent atelectasis or consolidation. There is also a moderate-sized pericardial effusion with enlarged heart. No pneumothorax is seen. No gross mediastinal or axillary adenopathy. No mediastinal or axillary adenopathy. Limited evaluation for hilar adenopathy without IV contrast. The visualized upper abdomen demonstrates no acute findings. There are mild degenerative changes of the spine. IMPRESSION: 1. Moderate bilateral pleural effusions greater on the right. 2. Moderate pericardial effusion with cardiomegaly.
[2018-07-24] MEDS: IPRATROPIUM/ALBUTEROL 0.5-2.5 MG/3 ML AMPUL NEB SCH (20:57)
[2018-07-24] MEDS: PATIROMER 8.4 GM SUSP PACKET PO SCH (21:03)
--- NOTE | 2018-07-24 21:58 | EKG REPORT ---
SEVERITY:- ABNORMAL ECG - ATRIAL FLUTTER VS PAT WITH 2:1 CONDUCTION CONSIDER RIGHT VENTRICULAR HYPERTROPHY CONSIDER INFERIOR INFARCT BORDERLINE R WAVE PROGRESSION, ANTERIOR LEADS : Confirmed by: Pooja Patel 24-Jul-2018 21:57:39
[2018-07-24] MEDS ORDERED: CETIRIZINE 10 MG TABLET PO SCH (22:00)
--- NOTE | 2018-07-24 22:01 | EKG REPORT ---
SEVERITY:- ABNORMAL ECG - A FLUTTER VS PAT WITH 2:1 CONDUCTION CONSIDER RIGHT VENTRICULAR HYPERTROPHY ABNRM R PROG, CONSIDER ASMI OR LEAD PLACEMENT PROLONGED QT INTERVAL : Confirmed by: Pooja Patel 24-Jul-2018 22:00:35
[2018-07-24] MEDS: QUETIAPINE FUMARATE 25 MG TABLET PO SCH (22:47)
[2018-07-24] MEDS: CETIRIZINE 5 MG TABLET PO SCH (22:48)
[2018-07-25] MEDS: IPRATROPIUM/ALBUTEROL 0.5-2.5 MG/3 ML AMPUL NEB SCH ×4 (02:35→21:00)
[2018-07-25] MEDS: ACETAMINOPHEN 325 MG TABLET PO SCH ×5 (06:53→19:41)
[2018-07-25] MEDS: LANSOPRAZOLE 30 MG TAB.RAP.DR PO SCH ×3 (06:54→19:42)
[2018-07-25] MEDS: METHYLPREDNISOLONE INJ 40 MG/1 ML SDV IV SCH ×3 (06:54→21:15)
[2018-07-25 10:09] LABS: HEMATOCRIT 37.8 % (37.9-51.0); HEMOGLOBIN 12.5 g/dL (13.5-17.0); MEAN CORPUSCULAR HEMOGLOBIN 27.1 pg (27.0-33.4); MEAN CORPUSCULAR VOLUME 82 fl (80-97); PLATELET COUNT 185 10^3/uL (150-450); RED CELL DISTRIBUTION WIDTH 15.2 % (11.5-14.0)
[2018-07-25] MEDS: AMIODARONE HCL 200 MG TABLET PO SCH ×3 (10:11→21:15)
[2018-07-25 10:17] LABS: ANION GAP 12 (5-19); BLOOD UREA NITROGEN 67 mg/dL (7-20); CALCIUM 8.8 mg/dL (8.4-10.2); CARBON DIOXIDE 31 mmol/L (22-30); CHLORIDE 98 mmol/L (98-107); GLUCOSE 120 mg/dL (75-110); POTASSIUM 5.4 mmol/L (3.6-5.0); SODIUM 140.9 mmol/L (137-145)
[2018-07-25] MEDS ORDERED: SODIUM POLYSTYRENE SULFONATE 15 GM/60 ML PO ONE (11:00)
[2018-07-25] MEDS: BUSPIRONE HCL 10 MG TABLET PO SCH ×2 (11:02→21:15)
[2018-07-25] MEDS: METOPROLOL SUCCINATE 25 MG TAB.SR.24H PO SCH ×2 (11:03→18:12)
[2018-07-25] MEDS: DOCUSATE SODIUM 100 MG CAPSULE PO SCH ×3 (11:03→18:12)
[2018-07-25] MEDS: DIGOXIN 0.125 MG TABLET PO SCH (11:03)
[2018-07-25] MEDS: POLYETHYLENE GLYCOL 3350 POWDER 17 GM/1 PACKET PO SCH ×2 (11:04→21:18)
[2018-07-25] MEDS: ASPIRIN 81 MG TABLET, ENT COATED PO SCH (11:04)
[2018-07-25] MEDS: OMEGA-3 ACID ETHYL ESTERS 1 GM CAPSULE PO SCH ×2 (11:04→18:12)
[2018-07-25] MEDS: FUROSEMIDE 20 MG TABLET PO SCH ×2 (11:04→18:12)
[2018-07-25 11:27] LABS: INTERNATIONAL RATION (INR) 1.17; PROTHROMBIN TIME 15.5 SEC (11.4-15.4)
[2018-07-25 11:28] LABS: PARTIAL THROMBOPLASTIN TIME 34.4 SEC (23.5-35.8)
--- NOTE | 2018-07-25 12:53 | PDOC PROGRESS REPORT ---
Addendum entered and electronically signed by KARL CAIN NP-C 07/25/18 16:38: Provider Note Provider Note: Addendum: Received phone call from Dr. Patel. Echocardiogram shows that the pericardial effusion is still small and primarily posterior. He does note R RA and RV enlargement. Recommends increasing metoprolol succinate to 25 mg twice daily and continue other medications unchanged. Original Note: Subjective Progress Note for:: 07/25/18 Subjective:: ALEX KNIGHT is a 62 year old male who has coronary artery disease and COPD. Patient patient has history of CABG, ischemic cardiomyopathy status post AICD, chronic respiratory failure on home oxygen, prior stroke with residual aphasia who was admitted 05/11/18 for CHF exacerbation. The patient was seen on morning rounds. He was found sitting up to the recliner on supplemental oxygen via nasal cannula eating his breakfast. Discussed the importance of medication compliance. The patient reports he understands that his medications are necessary to manage his heart failure and that without them he will . He states that he is not ready to and so he would not "fool around with" his medications. Each of his new medications were explained in detail and written on the white board for him to reference and he is agreeable to the current plan. We discussed possible need for thoracentesis (moderate right-sided pleural effusion noted on CT yesterday) and that the echocardiogram obtained earlier today is to evaluate his pericardial effusion. He was encouraged to continue being compliant with his medications as ordered and to utilize his BiPAP when sleeping or when he becomes short of breath. All questions and concerns were addressed. No concerns per nursing. Reason For Visit: CHF Physical Exam Vital Signs: Temp Pulse Resp BP Pulse Ox 97.4 F 117 H 16 118/49 L 96 07/24/18 23:14 07/25/18 08:21 07/25/18 08:21 07/24/18 23:14 07/25/18 08:21 Intake & Output 07/24/18 07/25/18 07/26/18 06:59 06:59 06:59 Intake Total 862 532 Output Total 550 460 Balance 312 72 General appearance: PRESENT: no acute distress, cooperative, obese, well- developed, well-nourished Head exam: PRESENT: atraumatic, normocephalic Eye exam: PRESENT: conjunctiva pink, EOMI, PERRLA. ABSENT: scleral icterus Mouth exam: PRESENT: moist, tongue midline Respiratory exam: PRESENT: decreased breath sounds - Diminished right lower salazar, symmetrical, unlabored, other - Supplemental oxygen by nasal cannula. ABSENT: crackles, rales, rhonchi, wheezes Cardiovascular exam: PRESENT: +S1, +S2, tachycardia. ABSENT: diastolic murmur, rubs, systolic murmur Pulses: PRESENT: normal dorsalis pedis pul Vascular exam: PRESENT: normal capillary refill GI/Abdominal exam: PRESENT: normal bowel sounds, soft. ABSENT: distended, gua rding, mass, organolmegaly, rebound, tenderness Rectal exam: PRESENT: deferred Extremities exam: PRESENT: full ROM, +1 edema - BLE. ABSENT: calf tenderness, clubbing, pedal edema Neurological exam: PRESENT: alert, awake, oriented to person, oriented to place, oriented to time, oriented to situation, CN II-XII grossly intact. ABSENT: motor sensory deficit Psychiatric exam: PRESENT: appropriate affect, normal mood. ABSENT: homicidal ideation, suicidal ideation Skin exam: PRESENT: dry, intact, warm. ABSENT: cyanosis, rash Results Laboratory Results: 07/25/18 09:55 07/25/18 09:55 07/24/18 07/24/18 07/24/18 14:15 14:15 18:30 WBC RBC Hgb Hct MCV MCH MCHC RDW Plt Count Carbonic Acid 2.04 H HCO3/H2CO3 Ratio 16:1 ABG pH 7.31 L ABG pCO2 67.8 H ABG pO2 101.6 H ABG HCO3 33.4 H ABG O2 Saturation 96.9 ABG Base Excess 5.1 VBG pH 7.27 L VBG pCO2 75.4 H* VBG HCO3 34.1 H VBG Base Excess 4.8 FiO2 30% Sodium 140.2 Potassium 5.2 H Chloride 98 Carbon Dioxide 33 H Anion Gap 9 BUN 57 H Creatinine 2.34 H Est GFR ( Amer) 34 L Est GFR (Non-Af Amer) 28 L Glucose 126 H Calcium 8.5 07/25/18 07/25/18 09:55 09:55 WBC 5.0 RBC 4.60 Hgb 12.5 L Hct 37.8 L MCV 82 MCH 27.1 MCHC 33.0 RDW 15.2 H Plt Count 185 Carbonic Acid HCO3/H2CO3 Ratio ABG pH ABG pCO2 ABG pO2 ABG HCO3 ABG O2 Saturation ABG Base Excess VBG pH VBG pCO2 VBG HCO3 VBG Base Excess FiO2 Sodium 140.9 Potassium 5.4 H Chloride 98 Carbon Dioxide 31 H Anion Gap 12 BUN 67 H Creatinine 2.61 H Est GFR ( Amer) 30 L Est GFR (Non-Af Amer) 25 L Glucose 120 H Calcium 8.8 05/11/18 05/11/18 05/11/18 09:35 09:35 09:35 Creatine Kinase 37 L CK-MB (CK-2) Troponin I 0.071 NT-Pro-B Natriuret Pep 6800 H 05/11/18 05/11/18 05/12/18 12:30 19:00 01:06 Creatine Kinase CK-MB (CK-2) Troponin I 0.067 0.064 0.050 NT-Pro-B Natriuret Pep 05/23/18 05/24/18 05/27/18 10:36 09:38 10:01 Creatine Kinase CK-MB (CK-2) Troponin I 0.060 NT-Pro-B Natriuret Pep 819 889 06/03/18 06/08/18 06/08/18 08:12 13:40 13:40 Creatine Kinase 39 L CK-MB (CK-2) 1.92 Troponin I 0.060 NT-Pro-B Natriuret Pep 1420 H 06/08/18 06/08/18 06/09/18 19:03 19:03 00:59 Creatine Kinase 36 L 34 L CK-MB (CK-2) 1.75 Troponin I 0.058 NT-Pro-B Natriuret Pep 06/09/18 06/09/18 06/09/18 00:59 08:04 08:04 Creatine Kinase 32 L CK-MB (CK-2) 1.58 1.79 Troponin I 0.063 0.064 NT-Pro-B Natriuret Pep 06/09/18 06/09/18 06/09/18 12:52 12:52 19:00 Creatine Kinase 46 L 31 L CK-MB (CK-2) 1.99 Troponin I 0.051 NT-Pro-B Natriuret Pep 06/09/18 06/25/18 07/04/18 19:00 07:35 08:21 Creatine Kinase CK-MB (CK-2) 1.80 Troponin I 0.072 0.054 NT-Pro-B Natriuret Pep 1660 H 07/20/18 07/20/18 07/20/18 22:16 22:16 22:16 Creatine Kinase 30 L CK-MB (CK-2) 2.79 Troponin I 0.077 NT-Pro-B Natriuret Pep 07/21/18 07/22/18 07/24/18 10:10 12:45 14:15 Creatine Kinase CK-MB (CK-2) Troponin I 0.076 0.064 NT-Pro-B Natriuret Pep 8000 H 81007 H Impressions: Thoracentesis Ultrasound 05/13/18 10:06 IMPRESSION: SUCCESSFUL THORACENTESIS USING ULTRASOUND GUIDANCE. Chest CT 07/24/18 00:00 IMPRESSION: 1. Moderate bilateral pleural effusions greater on the right. 2. Moderate pericardial effusion with cardiomegaly. Chest X-Ray 07/24/18 00:00 IMPRESSION: 1. No significant interval changes since the prior study dated 07/22/2018. Head CT 07/24/18 00:00 IMPRESSION: No hemorrhage. No midline shift. Multiple Areas of low density in the white matter due to chronic ischemic change. No evidence for acute infarction. EVIDENCE OF ACUTE STROKE: NO. Assessment & Plan - Diagnosis (1) Acute on chronic systolic (congestive) heart failure Is this a current diagnosis for this admission?: Yes Plan: Worsened today; fine bibasilar crackles noted, proBNP trending up, +2 BLE edema. He does remain on his baseline oxygen requirement CT of the chest revealed bilateral pleural effusions (moderate on the right) and a moderate pericardial effusion with enlarged heart. No vascular congestion or consolidations noted. Limited echo to evaluate pericardial effusion is pending. Continue metoprolol succinate 25 mg once daily. Continue p.o. amiodarone. Continue lovastatin and aspirin. Cardiology is consulted; appreciate Dr. Patel's assistance. Continue maintenance furosemide. Lasix 20 mg IV x1 today Strict I&O's and daily weights Continue cardiac diet (2) DEANNA (acute kidney injury) Is this a current diagnosis for this admission?: Yes Plan: Worsened. Creatinine increased to 2.61, up from 1.60 earlier this week. Likely secondary to CHF exacerbation. Avoid nephrotoxic medications as able. Allopurinol is discontinued. Gabapentin discontinued. Zyrtec decreased. Remaining medications reviewed for renal dosing. Continuing furosemide secondary to CHF exacerbation as this is the likely cause of his acute kidney injury. We will consult nephrology; appreciate Dr. Patton's assistance. Continue daily chemistries. (3) Acute and chronic respiratory failure with hypoxia Is this a current diagnosis for this admission?: Yes Plan: Worsened. ABG demonstrates respiratory acidosis; pH 7.31, PCO2 67.8, HCO3 33.4. Chest x-ray tyesterday is unchanged from previous; cardiomegaly with vascular congestion and bilateral pleural effusions. Chest CT reveals bilateral moderate pleural effusions; increased on the right. Continue supplemental oxygen and BiPAP as needed to maintain saturations >89% Optimize cardiac output; medications as above. Continue scheduled nebulizer treatments. Continue IV Solu-Medrol. (4) CAD (coronary artery disease) Is this a current diagnosis for this admission?: Yes Plan: Continue metoprolol, Fisher 3, and aspirin. Cardiac diet. (5) Gouty arthritis Is this a current diagnosis for this admission?: Yes Plan: Allopurinol discontinued secondary to DEANNA. Gabapentin discontinued secondary to DEANNA. Tylenol and tramadol as needed for pain. Avoid nephrotoxic medications for management of gout; consider low-dose steroids if he has repeat flareup. (6) Hyperkalemia Is this a current diagnosis for this admission?: Yes Plan: Recurrent secondary to medication noncompliance. Potassium 5.4 today. Continue Veltassa; patient was educated on the importance of continuing medications as ordered.. We will speak with nursing about the importance of educating the patient at each time of administration. Continue to monitor with daily chemistries. (7) Pleural effusion Is this a current diagnosis for this admission?: Yes Plan: Worsened. Secondary to CHF exacerbation. Repeat chest x-ray today was stable; Cardiac enlargement with vascular congestion, bibasilar atelectasis and bilateral pleural effusions without significant interval change from previous study completed 07/03/2018. Chest CT reveals moderate pleural effusion; increased on the right. Eliquis was ordered; patient has not yet received a dose. Placed on hold pending therapeutic thoracentesis. Thoracentesis is requested. (8) Anxiety Is this a current diagnosis for this admission?: Yes Plan: Stable Continue sceduled BuSpar BID and Ativan 0.5 mg every 4 hours as needed. Greatly improved with Seroquel 25 mg nightly. 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 Decreased alertness today. No focal deficits or facial asymmetry noted. However, with worsened aphasia. Head CT pending Continue aspirin, Lavaza, beta-steve therapy. (10) Tachycardia Is this a current diagnosis for this admission?: Yes Plan: Now in a flutter with 2-1 conduction; continues to have heart rate in the 130s. Previous telemetry and EKG review demonstrated sinus tachycardia w/ HR 120-130; likely was a flutter throughout but was unable to be identified due to conduction. BMP and creatinine increased. Troponins are indeterminately elevated but trended down; no longer following. Unclear etiology; likely secondary to recent medication noncompliance with resultant CHF exacerbation. We will continue to monitor on continuous cardiac telemetry. Cardiology was consulted; appreciate Dr. Patel's assistance. Transition to p.o. amiodarone in the morning. Stop carvedilol, start once daily metoprolol succinate. Plan to start renally dosed Eliquis; on hold pending thoracentesis. - Time Time Spent with patient: 35 or more minutes Medications reviewed and adjusted accordingly: Yes
[2018-07-25] MEDS ORDERED: FUROSEMIDE INJ/PF 20 MG/2 ML SDV IV ONE (13:00)
--- NOTE | 2018-07-25 15:44 | RADIOLOGY REPORT (SQ) ---
EXAM DESCRIPTION: U/S THORACENTESIS WITH IMAGING COMPLETED DATE/TIME: 07/25/2018 3:35 pm REASON FOR STUDY: Rt pleural effusion w/ hypoxia COMPARISON: None. LIMITATIONS: None. PROCEDURE: Procedure, risks, benefit, and alternative explained to patient who then gave written con sent. The posterior right chest wall was marked using ultrasound guidance. A time-out was called fo r correct marking verification. Chest prepped and draped using sterile technique. Local anesthesia a chieved using 10 ml of 1% lidocaine injection. A 6fr Safe-T- Centesis set was introduced into the [facility] pleural space. Fluid was aspirated. The catheter was removed and the entry site was covered wit h sterile bandage. No immediate complications noted. Images acquired during the procedure were stored on PACS. FINDINGS: ENTRY SITE: posterior right chest. FLUID VOLUME: 600 cc FLUID ANALYSIS: Pati colored OTHER: Therapeutic only IMPRESSION: SUCCESSFUL THORACENTESIS USING ULTRASOUND GUIDANCE. COMMENT: Patient medication list reviewed: Yes- Quality ID# [id number]:Eligible professional attests to doc umenting in the medical record they obtained, updated, or reviewed the patient's current medications. TECHNICAL DOCUMENTATION: JOB ID: [id number] [employer]- All Rights Reserved Reading location - IP/workstation name: [email or web address]
--- NOTE | 2018-07-25 15:47 | RADIOLOGY REPORT (SQ) ---
EXAM DESCRIPTION: CHEST SINGLE VIEW COMPLETED DATE/TIME: 07/25/2018 3:37 pm REASON FOR STUDY: POST THORA COMPARISON: 07/24/2018 EXAM PARAMETERS: NUMBER OF VIEWS: One view. TECHNIQUE: Single frontal radiographic view of the chest acquired. RADIATION DOSE: NA LIMITATIONS: None. FINDINGS: LUNGS AND PLEURA: Decrease in the right pleural effusion. No pneumothorax. Persistent re trocardiac opacity. MEDIASTINUM AND HILAR STRUCTURES: No masses. Contour normal. HEART AND VASCULAR STRUCTURES: Heart enlarged. Vascular congestion. BONES: No acute findings. HARDWARE: Cardiac hardware unchanged. OTHER: No other significant finding. IMPRESSION: No pneumothorax status post thoracentesis. Persistent cardiac enlargement and vascular congestion. Persistent left retrocardiac opacity. TECHNICAL DOCUMENTATION: JOB ID: [id number] [employer]- All Rights Reserved Reading location - IP/workstation name: [email or web address]
--- NOTE | 2018-07-25 16:32 | EKG REPORT ---
SEVERITY:- ABNORMAL ECG - ATRIAL FLUTTER, A-RATE 245 IRBBB AND LPFB PROBABLE INFERIOR INFARCT, AGE INDETERMINATE CONSIDER ANTERIOR INFARCT : Confirmed by: Pooja Patel 25-Jul-2018 16:31:50
--- NOTE | 2018-07-25 17:58 | RADIOLOGY REPORT (SQ) ---
EXAM DESCRIPTION: CHEST SINGLE VIEW COMPLETED DATE/TIME: 07/25/2018 5:41 pm REASON FOR STUDY: POST THORA AND 2 HOUR POST, PLEURAL EFF RT COMPARISON: 07/25/2018 at 1538 hours. EXAM PARAMETERS: NUMBER OF VIEWS: One view. TECHNIQUE: Single frontal radiographic view of the chest acquired. RADIATION DOSE: NA LIMITATIONS: None. FINDINGS: LUNGS AND PLEURA: Pleural effusions, unchanged. No pneumothorax. MEDIASTINUM AND HILAR STRUCTURES: No masses. Contour normal. HEART AND VASCULAR STRUCTURES: Cardiomegaly. Vascular congestion. BONES: No acute findings. HARDWARE: Defibrillator. OTHER: No other significant finding. IMPRESSION: NO PNEUMOTHORAX ON IMAGE ACQUIRED 2 HOURS AFTER THORACENTESIS. NO CHANGE IN APPEARANCE OF THE CHEST. TECHNICAL DOCUMENTATION: JOB ID: [id number] [employer]- All Rights Reserved Reading location - IP/workstation name: [email or web address]
--- NOTE | 2018-07-25 19:06 | XCELERA REPORT ---
[address] [address] Transthoracic Echocardiogram Report Name: ALEX KNIGHT Age: 62 yrs Gender: Male : 1955 Patient Status: Inpatient Patient Location: [address] [place] [address] Study Date: 07/25/2018 10:20 AM Height: 66 in Weight: 190 lb BSA: 2.0 m2 Procedure: A complete two-dimensional transthoracic echocardiogram was performed (2D, M-mode, spectral and color flow Doppler). The study was technically difficult with many images being suboptimal in quality. Reason For Study: eval moderate pericardial effusion noted on CT, LIMITED PER PAYTON Ordering Physician: KARL CAIN Performed By: Shahzad Yarbrough Interpretation Summary The Ejection Fraction estimate is <20% Left ventricular systolic function is severely reduced. LV diastolic function could not be adequately assessed. There is mild concentric left ventricular hypertrophy. The left ventricle is moderately dilated. The right ventricle is moderate to severely dilated. The right ventricle appears to be hypertrophied The right ventricular systolic function is moderate to severely reduced. The left atrium is severely dilated. The right atrium is moderately dilated. There is a moderate to severe amount of mitral regurgitation There is no mitral valve stenosis. No aortic regurgitation is present. There is no aortic valve stenosis There is a moderate to severe amount of tricuspid regurgitation Best estimated RVSP is approximately 85-90 mm/Hg. Best estimated right ventricular systolic pressure is elevated at >60mmHg. The pulmonic valve is not well visualized. The aortic root is not well visualized but is probably normal size. The inferior vena cava appeared dilated and decreased < 50% with respiration (RAP 15-20 mmHg) Small pericardial effusion. Small left pleural effusion. MMode/2D Measurements & Calculations RVDd: 4.0 cm LVIDd: 6.6 cm FS: 13.6 % Ao root diam: 3.7 cm IVSd: 0.62 cm LVIDs: 5.7 cm EDV(Teich): 226.7 ml Ao root area: 10.7 cm2 LVPWd: 0.83 cm ESV(Teich): 162.5 ml LA dimension: 4.6 cm EF(Teich): 28.3 % LVOT diam: 1.8 cm LVOT area: 2.6 cm2 Doppler Measurements & Calculations MR max vinicio: 434.4 cm/sec PA V2 max: 33.1 cm/sec TR max vinicio: 270.0 cm/sec MR max P.5 mmHg PA max P.44 mmHg TR max P.2 mmHg Left Ventricle The left ventricle is moderately dilated. There is mild concentric left ventricular hypertrophy. Left ventricular systolic function is severely reduced. The Ejection Fraction estimate is <20%. LV diastolic function could not be adequately assessed. There is severe global hypokinesis of the left ventricle. Right Ventricle The right ventricle is moderate to severely dilated. The right ventricle appears to be hypertrophied. The right ventricular systolic function is moderate to severely reduced. Atria The right atrium is moderately dilated. The left atrium is severely dilated. Interarterial septum not well visualized and not well dopplered. Cannot comment on ASD/PFO presence. Mitral Valve The mitral valve is grossly normal. There is no mitral valve stenosis. There is a moderate to severe amount of mitral regurgitation. Aortic Valve The aortic valve is not well visualized secondary to technical limitations. There is no aortic valve stenosis. No aortic regurgitation is present. Tricuspid Valve The tricuspid valve is not well visualized, but is grossly normal. There is no tricuspid stenosis. There is a moderate to severe amount of tricuspid regurgitation. Best estimated right ventricular systolic pressure is elevated at >60mmHg. Best estimated RVSP is approximately 85-90 mm/Hg. Pulmonic Valve The pulmonic valve is not well visualized. Great Vessels The aortic root is not well visualized but is probably normal size. The inferior vena cava appeared dilated and decreased < 50% with respiration (RAP 15-20 mmHg). Effusions Small pericardial effusion. Small left pleural effusion. : KARL CAIN > Pooja Patel
[2018-07-25] MEDS: PATIROMER 8.4 GM SUSP PACKET PO SCH (19:41)
[2018-07-25] MEDS: TRAMADOL HCL 50 MG TABLET PO PRN (19:49)
[2018-07-25] MEDS: QUETIAPINE FUMARATE 25 MG TABLET PO SCH (21:15)
[2018-07-25] MEDS: CETIRIZINE 5 MG TABLET PO SCH (21:20)
[2018-07-26] MEDS: ACETAMINOPHEN 325 MG TABLET PO SCH ×3 (00:05→06:21)
[2018-07-26] MEDS: IPRATROPIUM/ALBUTEROL 0.5-2.5 MG/3 ML AMPUL NEB SCH ×3 (02:45→14:09)
[2018-07-26] MEDS: METHYLPREDNISOLONE INJ 40 MG/1 ML SDV IV SCH ×3 (06:16→21:11)
[2018-07-26] MEDS: LANSOPRAZOLE 30 MG TAB.RAP.DR PO SCH ×2 (06:16→06:20)
[2018-07-26] MEDS: AMIODARONE HCL 200 MG TABLET PO SCH ×2 (10:59→21:09)
[2018-07-26] MEDS: METOPROLOL SUCCINATE 25 MG TAB.SR.24H PO SCH ×2 (10:59→17:52)
[2018-07-26] MEDS: ASPIRIN 81 MG TABLET, ENT COATED PO SCH (10:59)
[2018-07-26] MEDS: OMEGA-3 ACID ETHYL ESTERS 1 GM CAPSULE PO SCH ×2 (11:00→17:53)
[2018-07-26] MEDS: DOCUSATE SODIUM 100 MG CAPSULE PO SCH ×3 (11:00→17:52)
[2018-07-26] MEDS: BUSPIRONE HCL 10 MG TABLET PO SCH ×2 (11:00→21:09)
[2018-07-26] MEDS: POLYETHYLENE GLYCOL 3350 POWDER 17 GM/1 PACKET PO SCH ×2 (11:01→21:11)
[2018-07-26] MEDS: FUROSEMIDE 20 MG TABLET PO SCH ×2 (11:01→17:53)
[2018-07-26 11:06] LABS: HEMATOCRIT 36.8 % (37.9-51.0); HEMOGLOBIN 12.1 g/dL (13.5-17.0); MEAN CORPUSCULAR HEMOGLOBIN 27.3 pg (27.0-33.4); MEAN CORPUSCULAR HGB CONC 32.9 g/dL (32.0-36.0); MEAN CORPUSCULAR VOLUME 83 fl (80-97); PLATELET COUNT 226 10^3/uL (150-450); RED BLOOD COUNT 4.43 10^6/uL (4.35-5.55)
[2018-07-26] MEDS: DIGOXIN 0.125 MG TABLET PO SCH (11:14)
[2018-07-26 11:25] LABS: ANION GAP 14 (5-19); BLOOD UREA NITROGEN 83 mg/dL (7-20); CARBON DIOXIDE 31 mmol/L (22-30); CHLORIDE 95 mmol/L (98-107); GLUCOSE 163 mg/dL (75-110); POTASSIUM 4.7 mmol/L (3.6-5.0); SODIUM 139.5 mmol/L (137-145)
[2018-07-26] MEDS: ACETAMINOPHEN 325 MG TABLET PO PRN ×2 (13:15→21:09)
--- NOTE | 2018-07-26 16:02 | PDOC PROGRESS REPORT ---
Subjective Progress Note for:: 07/26/18 Subjective:: ALEX KNIGHT is a 62 year old male who has coronary artery disease and COPD. Patient patient has history of CABG, ischemic cardiomyopathy status post AICD, chronic respiratory failure on home oxygen, prior stroke with residual aphasia who was admitted 05/11/18 for CHF exacerbation. The patient was seen on afternoon rounds. He was found sitting up to the recl iner on supplemental oxygen via nasal cannula. He reports that he is breathing easier today and is able to take deeper breaths. He denies chest pain or palpitations and overall reports that he is feeling much better. He also notes that the edema to his bilateral lower extremities has also improved. We discussed his kidney function being somewhat elevated, likely related to CHF exacerbation, that will require monitoring over the next day or so; if stabilizes or begins to trend down, he will be ready for his anticipated discharge middle of the week. He further denies fever, chills, orthopnea, cough, abdominal pain, nausea vomiting and diarrhea. He has no questions or concerns at this time. No concerns per nursing. Reason For Visit: CHF Physical Exam Vital Signs: Temp Pulse Resp BP Pulse Ox 97.6 F 104 H 16 114/52 L 97 07/26/18 11:08 07/26/18 14:09 07/26/18 14:09 07/26/18 11:08 07/26/18 14:09 Intake & Output 07/25/18 07/26/18 07/27/18 06:59 06:59 06:59 Intake Total 532 473 236 Output Total 460 620 Balance 72 -147 236 Weight 90.2 kg General appearance: PRESENT: no acute distress, cooperative, obese, well- developed, well-nourished Head exam: PRESENT: atraumatic, normocephalic Eye exam: PRESENT: conjunctiva pink, EOMI, PERRLA. ABSENT: scleral icterus Ear exam: PRESENT: normal external ear exam Mouth exam: PRESENT: moist, tongue midline Neck exam: ABSENT: carotid bruit, JVD, lymphadenopathy, thyromegaly Respiratory exam: PRESENT: clear to auscultation rahul, symmetrical, unlabored, other - Supplemental oxygen by nasal cannula. ABSENT: rales, rhonchi, wheezes Cardiovascular exam: PRESENT: irregular rhythm, +S1, +S2. ABSENT: diastolic murmur, rubs, systolic murmur Pulses: PRESENT: normal dorsalis pedis pul Vascular exam: PRESENT: normal capillary refill GI/Abdominal exam: PRESENT: normal bowel sounds, soft. ABSENT: distended, guarding, mass, organolmegaly, rebound, tenderness Rectal exam: PRESENT: deferred Extremities exam: PRESENT: full ROM, +1 edema - BLE; decreased from yesterday. ABSENT: calf tenderness, clubbing, pedal edema Neurological exam: PRESENT: alert, awake, oriented to person, oriented to place, oriented to time, oriented to situation, CN II-XII grossly intact. ABSENT: motor sensory deficit Psychiatric exam: PRESENT: appropriate affect, normal mood. ABSENT: homicidal ideation, suicidal ideation Skin exam: PRESENT: dry, intact, warm. ABSENT: cyanosis, rash Results Laboratory Results: 07/26/18 10:53 07/26/18 10:53 07/26/18 07/26/18 10:53 10:53 WBC 6.0 RBC 4.43 Hgb 12.1 L Hct 36.8 L MCV 83 MCH 27.3 MCHC 32.9 RDW 15.0 H Plt Count 226 Sodium 139.5 Potassium 4.7 Chloride 95 L Carbon Dioxide 31 H Anion Gap 14 BUN 83 H Creatinine 2.78 H Est GFR ( Amer) 28 L Est GFR (Non-Af Amer) 23 L Glucose 163 H Calcium 9.0 05/11/18 05/11/18 05/11/18 09:35 09:35 09:35 Creatine Kinase 37 L CK-MB (CK-2) Troponin I 0.071 NT-Pro-B Natriuret Pep 6800 H 05/11/18 05/11/18 05/12/18 12:30 19:00 01:06 Creatine Kinase CK-MB (CK-2) Troponin I 0.067 0.064 0.050 NT-Pro-B Natriuret Pep 05/23/18 05/24/18 05/27/18 10:36 09:38 10:01 Creatine Kinase CK-MB (CK-2) Troponin I 0.060 NT-Pro-B Natriuret Pep 819 889 06/03/18 06/08/18 06/08/18 08:12 13:40 13:40 Creatine Kinase 39 L CK-MB (CK-2) 1.92 Troponin I 0.060 NT-Pro-B Natriuret Pep 1420 H 06/08/18 06/08/18 06/09/18 19:03 19:03 00:59 Creatine Kinase 36 L 34 L CK-MB (CK-2) 1.75 Troponin I 0.058 NT-Pro-B Natriuret Pep 06/09/18 06/09/18 06/09/18 00:59 08:04 08:04 Creatine Kinase 32 L CK-MB (CK-2) 1.58 1.79 Troponin I 0.063 0.064 NT-Pro-B Natriuret Pep 06/09/18 06/09/18 06/09/18 12:52 12:52 19:00 Creatine Kinase 46 L 31 L CK-MB (CK-2) 1.99 Troponin I 0.051 NT-Pro-B Natriuret Pep 06/09/18 06/25/18 07/04/18 19:00 07:35 08:21 Creatine Kinase CK-MB (CK-2) 1.80 Troponin I 0.072 0.054 NT-Pro-B Natriuret Pep 1660 H 07/20/18 07/20/18 07/20/18 22:16 22:16 22:16 Creatine Kinase 30 L CK-MB (CK-2) 2.79 Troponin I 0.077 NT-Pro-B Natriuret Pep 07/21/18 07/22/18 07/24/18 10:10 12:45 14:15 Creatine Kinase CK-MB (CK-2) Troponin I 0.076 0.064 NT-Pro-B Natriuret Pep 8000 H 79102 H Impressions: Chest CT 07/24/18 00:00 IMPRESSION: 1. Moderate bilateral pleural effusions greater on the right. 2. Moderate pericardial effusion with cardiomegaly. Head CT 07/24/18 00:00 IMPRESSION: No hemorrhage. No midline shift. Multiple Areas of low density in the white matter due to chronic ischemic change. No evidence for acute infarction. EVIDENCE OF ACUTE STROKE: NO. Chest X-Ray 07/25/18 00:00 IMPRESSION: NO PNEUMOTHORAX ON IMAGE ACQUIRED 2 HOURS AFTER THORACENTESIS. NO CHANGE IN APPEARANCE OF THE CHEST. Thoracentesis Ultrasound 07/25/18 10:27 IMPRESSION: SUCCESSFUL THORACENTESIS USING ULTRASOUND GUIDANCE. Assessment & Plan - Diagnosis (1) Acute on chronic systolic (congestive) heart failure Is this a current diagnosis for this admission?: Yes Plan: Improved; breath sounds are clear, increased depth of inspirations, decreased edema. He does remain on his baseline oxygen requirement CT of the chest revealed bilateral pleural effusions (moderate on the right) and a moderate pericardial effusion with enlarged heart. No vascular congestion or consolidations noted. Limited echo demonstrated a small pleural effusion (unchanged from previously) and LVEF of 20%. Of note, echocardiogram was obtained while the patient was still tachycardic in the 120s and prior to his thoracentesis. Continue metoprolol succinate 25 mg twice daily. Continue p.o. amiodarone. Continue lovastatin and aspirin. Cardiology is consulted; appreciate Dr. Patel's assistance. Continue maintenance furosemide. Strict I&O's and daily weights Continue cardiac diet (2) DEANNA (acute kidney injury) Is this a current diagnosis for this admission?: Yes Plan: Creatinine continues to trend up, though not at the same rate as previously. Creatinine 1.60-> 2.25-> 2.34-> 2.61-> 2.78 Likely secondary to CHF exacerbation. Hopefully will begin to trend down now that the patient is rate controlled and CHF is beginning to clinically improve. Avoid nephrotoxic medications as able. Allopurinol is discontinued. Gabapentin discontinued. Zyrtec decreased. Remaining medications reviewed for renal dosing. Continuing furosemide secondary to CHF exacerbation as this is the likely cause of his acute kidney injury. We will consult nephrology; appreciate Dr. Patton's assistance. Continue daily chemistries. (3) Acute and chronic respiratory failure with hypoxia Is this a current diagnosis for this admission?: Yes Plan: Improved; now on his baseline oxygen requirement w/o increased work of breathig. ABG demonstrates respiratory acidosis; pH 7.31, PCO2 67.8, HCO3 33.4. Chest x-ray tyesterday is unchanged from previous; cardiomegaly with vascular congestion and bilateral pleural effusions. Chest CT reveals bilateral moderate pleural effusions; increased on the right. Now s/p thoracentesis with removal of 600 mL's from right Continue supplemental oxygen and BiPAP as needed to maintain saturations >89% Optimize cardiac output; medications as above. Continue scheduled nebulizer treatments; will begin weaning. Continue IV Solu-Medrol; will begin weaning. (4) CAD (coronary artery disease) Is this a current diagnosis for this admission?: Yes Plan: Continue metoprolol, [place] 3, and aspirin. Cardiac diet. (5) Gouty arthritis Is this a current diagnosis for this admission?: Yes Plan: Allopurinol discontinued secondary to DEANNA. Gabapentin discontinued secondary to EDANNA. Tylenol and tramadol as needed for pain. Avoid nephrotoxic medications for management of gout; consider low-dose steroids if he has repeat flareup. (6) Hyperkalemia Is this a current diagnosis for this admission?: Yes Plan: Improved; recurrent secondary to medication noncompliance. Potassium 4.7 today. Continue Veltassa; patient was educated on the importance of continuing medications as ordered.. We will speak with nursing about the importance of educating the patient at each time of administration. Continue to monitor with daily chemistries. (7) Pleural effusion Is this a current diagnosis for this admission?: Yes Plan: Secondary to CHF exacerbation. Repeat chest x-ray today was stable; Cardiac enlargement with vascular congestion, bibasilar atelectasis and bilateral pleural effusions without significant interval change from previous study completed 07/03/2018. Chest CT reveals moderate pleural effusion; increased on the right. Thoracentesis yesterday with removal of 600 mL's from right Continue furosemide as above. (8) Anxiety Is this a current diagnosis for this admission?: Yes Plan: Stable Continue sceduled BuSpar BID and Ativan 0.5 mg every 4 hours as needed. Greatly improved with Seroquel 25 mg nightly. 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 Decreased alertness today. No focal deficits or facial asymmetry noted. However, with worsened aphasia. Head CT pending Continue aspirin, Lavaza, beta-steve therapy. (10) Atrial flutter with rapid ventricular response Is this a current diagnosis for this admission?: Yes Plan: Now in atrial fibrillation; rate controlled with amiodarone and twice daily metoprolol. Previous telemetry and EKG review demonstrated sinus tachycardia w/ HR 120-130; likely was a flutter throughout but was unable to be identified due to conduction. BNP and creatinine increased. Troponins are indeterminately elevated but trended down; no longer following. Unclear etiology; likely secondary to recent medication noncompliance with resultant CHF exacerbation. We will continue to monitor on continuous cardiac telemetry. Cardiology was consulted; appreciate Dr. Patel's assistance. Continue amiodarone in the morning. Continue twice daily metoprolol succinate. Resume renally dosed Eliquis. (11) Tachycardia Is this a current diagnosis for this admission?: Yes Plan: As above. - Time Time Spent with patient: 15-24 minutes Medications reviewed and adjusted accordingly: Yes Anticipated discharge: Home - [facility] Within: within 72 hours - Plan Summary Plan Summary: CHF exacerbation appears to be resolving (clinically improved). Patient did develop acute kidney injury secondary to poor cardiac output and increased furosemide use. We will continue to monitor daily chemistries; once creatinine stabilizes and begins to trend downward, he will be medically stable for discharge with close follow-up.
[2018-07-26] MEDS: APIXABAN 2.5 MG TABLET PO SCH (17:54)
[2018-07-26] MEDS: QUETIAPINE FUMARATE 25 MG TABLET PO SCH (21:09)
[2018-07-26] MEDS: CETIRIZINE 5 MG TABLET PO SCH (21:10)
[2018-07-26] MEDS: PATIROMER 8.4 GM SUSP PACKET PO SCH (21:11)
--- NOTE | 2018-07-26 22:50 | EKG REPORT ---
SEVERITY:- ABNORMAL ECG - ATRIAL FLUTTER, A-RATE 238 NONSPECIFIC INTRAVENTRICULAR CONDUCTION DELAY PROBABLE INFERIOR INFARCT, AGE INDETERMINATE : Confirmed by: Pooja Patel 26-Jul-2018 22:50:34
[2018-07-26] MEDS: TRAMADOL HCL 50 MG TABLET PO PRN (23:00)
[2018-07-27] MEDS: IPRATROPIUM/ALBUTEROL 0.5-2.5 MG/3 ML AMPUL NEB SCH ×4 (00:27→21:08)
[2018-07-27] MEDS: ACETAMINOPHEN 325 MG TABLET PO PRN ×2 (06:06→19:35)
[2018-07-27] MEDS: METHYLPREDNISOLONE INJ 40 MG/1 ML SDV IV SCH ×2 (06:06→15:24)
[2018-07-27] MEDS: METOPROLOL SUCCINATE 25 MG TAB.SR.24H PO SCH ×2 (10:57→19:32)
[2018-07-27] MEDS: BUSPIRONE HCL 10 MG TABLET PO SCH ×2 (10:57→21:20)
[2018-07-27] MEDS: OMEGA-3 ACID ETHYL ESTERS 1 GM CAPSULE PO SCH ×2 (10:57→19:32)
[2018-07-27] MEDS: AMIODARONE HCL 200 MG TABLET PO SCH ×2 (10:57→21:20)
[2018-07-27] MEDS: DIGOXIN 0.125 MG TABLET PO SCH (10:58)
[2018-07-27] MEDS: APIXABAN 2.5 MG TABLET PO SCH ×2 (10:58→19:32)
[2018-07-27] MEDS: FUROSEMIDE 20 MG TABLET PO SCH ×2 (10:58→19:32)
[2018-07-27] MEDS: POLYETHYLENE GLYCOL 3350 POWDER 17 GM/1 PACKET PO SCH ×2 (10:58→21:21)
[2018-07-27] MEDS: TRAMADOL HCL 50 MG TABLET PO PRN (10:58)
[2018-07-27] MEDS: DOCUSATE SODIUM 100 MG CAPSULE PO SCH ×3 (10:58→19:32)
[2018-07-27] MEDS: ASPIRIN 81 MG TABLET, ENT COATED PO SCH (10:58)
[2018-07-27 11:06] LABS: HEMATOCRIT 38.9 % (37.9-51.0); HEMOGLOBIN 12.8 g/dL (13.5-17.0); MEAN CORPUSCULAR HEMOGLOBIN 27.2 pg (27.0-33.4); MEAN CORPUSCULAR VOLUME 83 fl (80-97); PLATELET COUNT 238 10^3/uL (150-450); RED BLOOD COUNT 4.71 10^6/uL (4.35-5.55); RED CELL DISTRIBUTION WIDTH 15.3 % (11.5-14.0); WHITE BLOOD COUNT 10.7 10^3/uL (4.0-10.5)
[2018-07-27 11:36] LABS: ANION GAP 13 (5-19); BLOOD UREA NITROGEN 93 mg/dL (7-20); CALCIUM 9.2 mg/dL (8.4-10.2); CARBON DIOXIDE 29 mmol/L (22-30); CHLORIDE 98 mmol/L (98-107); GLUCOSE 106 mg/dL (75-110); POTASSIUM 5.5 mmol/L (3.6-5.0); SODIUM 140.3 mmol/L (137-145)
--- NOTE | 2018-07-27 17:29 | PDOC PROGRESS REPORT ---
Subjective Progress Note for:: 07/27/18 Subjective:: ALEX KNIGHT is a 62 year old male who has coronary artery disease and COPD. Patient patient has history of CABG, ischemic cardiomyopathy status post AICD, chronic respiratory failure on home oxygen, prior stroke with residual aphasia who was admitted 05/11/18 for CHF exacerbation. The patient was seen on morning rounds. He was found sitting up to the recliner on supplemental oxygen via nasal cannula. He was sleeping but woke easily when I said his name. He tells me he is feeling much better today; stating that he can take a deep breath without discomfort. His only complaint at present is constipation and he asks for a suppository. He further denies fever, chills, chest pain, palpitations, dyspnea, orthopnea, cough, abdominal pain, nausea vomiting and diarrhea. He has no questions or concerns at this time. No concerns per nursing. Reason For Visit: CHF Physical Exam Vital Signs: Temp Pulse Resp BP Pulse Ox 97.7 F 59 L 20 99/46 L 100 07/27/18 12:07 07/27/18 16:58 07/27/18 16:58 07/27/18 12:07 07/27/18 16:58 Intake & Output 07/26/18 07/27/18 07/28/18 06:59 06:59 06:59 Intake Total 473 576 237 Output Total 620 375 75 Balance -147 201 162 Weight 90.2 kg General appearance: PRESENT: no acute distress, cooperative, obese, well- developed, well-nourished Head exam: PRESENT: atraumatic, normocephalic Eye exam: PRESENT: conjunctiva pink, EOMI, PERRLA. ABSENT: scleral icterus Ear exam: PRESENT: normal external ear exam Mouth exam: PRESENT: moist, tongue midline Neck exam: ABSENT: carotid bruit, JVD, lymphadenopathy, thyromegaly Respiratory exam: PRESENT: clear to auscultation rahul, symmetrical, unlabored, other - Supplemental oxygen by nasal cannula. ABSENT: rales, rhonchi, wheezes Cardiovascular exam: PRESENT: irregular rhythm, tachycardia - intermittently. ABSENT: diastolic murmur, rubs, systolic murmur Pulses: PRESENT: normal dorsalis pedis pul Vascular exam: PRESENT: normal capillary refill Rectal exam: PRESENT: deferred Extremities exam: PRESENT: full ROM, +1 edema - BLE. ABSENT: calf tenderness, clubbing, pedal edema Neurological exam: PRESENT: alert, awake, oriented to person, oriented to place, oriented to time, oriented to situation, CN II-XII grossly intact. ABSENT: motor sensory deficit Psychiatric exam: PRESENT: appropriate affect, normal mood. ABSENT: homicidal ideation, suicidal ideation Skin exam: PRESENT: dry, intact, warm. ABSENT: cyanosis, rash Results Laboratory Results: 07/27/18 10:52 07/27/18 10:52 07/27/18 07/27/18 10:52 10:52 WBC 10.7 H RBC 4.71 Hgb 12.8 L Hct 38.9 MCV 83 MCH 27.2 MCHC 33.0 RDW 15.3 H Plt Count 238 Sodium 140.3 Potassium 5.5 H Chloride 98 Carbon Dioxide 29 Anion Gap 13 BUN 93 H Creatinine 2.83 H Est GFR ( Amer) 27 L Est GFR (Non-Af Amer) 23 L Glucose 106 Calcium 9.2 05/11/18 05/11/18 05/11/18 09:35 09:35 09:35 Creatine Kinase 37 L CK-MB (CK-2) Troponin I 0.071 NT-Pro-B Natriuret Pep 6800 H 05/11/18 05/11/18 05/12/18 12:30 19:00 01:06 Creatine Kinase CK-MB (CK-2) Troponin I 0.067 0.064 0.050 NT-Pro-B Natriuret Pep 05/23/18 05/24/18 05/27/18 10:36 09:38 10:01 Creatine Kinase CK-MB (CK-2) Troponin I 0.060 NT-Pro-B Natriuret Pep 819 889 06/03/18 06/08/18 06/08/18 08:12 13:40 13:40 Creatine Kinase 39 L CK-MB (CK-2) 1.92 Troponin I 0.060 NT-Pro-B Natriuret Pep 1420 H 06/08/18 06/08/18 06/09/18 19:03 19:03 00:59 Creatine Kinase 36 L 34 L CK-MB (CK-2) 1.75 Troponin I 0.058 NT-Pro-B Natriuret Pep 06/09/18 06/09/1806/09/19 00:59 08:04 08:04 Creatine Kinase 32 L CK-MB (CK-2) 1.58 1.79 Troponin I 0.063 0.064 NT-Pro-B Natriuret Pep 06/09/18 06/09/18 06/09/18 12:52 12:52 19:00 Creatine Kinase 46 L 31 L CK-MB (CK-2) 1.99 Troponin I 0.051 NT-Pro-B Natriuret Pep 06/09/18 06/25/18 07/04/18 19:00 07:35 08:21 Creatine Kinase CK-MB (CK-2) 1.80 Troponin I 0.072 0.054 NT-Pro-B Natriuret Pep 1660 H 07/20/18 07/20/18 07/20/18 22:16 22:16 22:16 Creatine Kinase 30 L CK-MB (CK-2) 2.79 Troponin I 0.077 NT-Pro-B Natriuret Pep 07/21/18 07/22/18 07/24/18 10:10 12:45 14:15 Creatine Kinase CK-MB (CK-2) Troponin I 0.076 0.064 NT-Pro-B Natriuret Pep 8000 H 34375 H 07/27/18 10:52 Creatine Kinase CK-MB (CK-2) Troponin I NT-Pro-B Natriuret Pep 61844 H Impressions: Chest CT 07/24/18 00:00 IMPRESSION: 1. Moderate bilateral pleural effusions greater on the right. 2. Moderate pericardial effusion with cardiomegaly. Head CT 07/24/18 00:00 IMPRESSION: No hemorrhage. No midline shift. Multiple Areas of low density in the white matter due to chronic ischemic change. No evidence for acute infarction. EVIDENCE OF ACUTE STROKE: NO. Chest X-Ray 07/25/18 00:00 IMPRESSION: NO PNEUMOTHORAX ON IMAGE ACQUIRED 2 HOURS AFTER THORACENTESIS. NO CHANGE IN APPEARANCE OF THE CHEST. Thoracentesis Ultrasound 07/25/18 10:27 IMPRESSION: SUCCESSFUL THORACENTESIS USING ULTRASOUND GUIDANCE. Assessment & Plan - Diagnosis (1) Acute on chronic systolic (congestive) heart failure Is this a current diagnosis for this admission?: Yes Plan: Clinically improved; breath sounds are clear, increased depth of inspirations, decreased edema. Tachycardia overall improved (HR now 80-110 on average). He does remain on his baseline oxygen requirement CT of the chest revealed bilateral pleural effusions (moderate on the right) and a moderate pericardial effusion with enlarged heart. No vascular congestion or consolidations noted. Limited echo demonstrated a small pleural effusion (unchanged from previously) and LVEF of 20%. Of note, echocardiogram was obtained while the patient was still tachycardic in the 120s and prior to his thoracentesis. Continue metoprolol succinate 25 mg twice daily. Continue p.o. amiodarone. Continue lovastatin and aspirin. Cardiology is consulted; appreciate Dr. Patel's assistance. Continue maintenance furosemide. Strict I&O's and daily weights Continue cardiac diet (2) DEANNA (acute kidney injury) Is this a current diagnosis for this admission?: Yes Plan: Creatinine continues to trend up, though not at the same rate as previously. Creatinine 1.60-> 2.25-> 2.34-> 2.61-> 2.78-> 2.83 Likely secondary to CHF exacerbation. Hopefully will begin to trend down now that the patient is rate controlled and CHF is beginning to clinically improve. Avoid nephrotoxic medications as able. Allopurinol is discontinued. Gabapentin discontinued. Zyrtec decreased. Remaining medications reviewed for renal dosing. Continuing furosemide secondary to CHF exacerbation as this is the likely cause of his acute kidney injury. We will consult nephrology; appreciate Dr. Newby's assistance. Continue daily chemistries. (3) Acute and chronic respiratory failure with hypoxia Is this a current diagnosis for this admission?: Yes Plan: Improved; now on his baseline oxygen requirement w/o increased work of breathing. ABG demonstrates respiratory acidosis; pH 7.31, PCO2 67.8, HCO3 33.4. Chest x-ray tyesterday is unchanged from previous; cardiomegaly with vascular congestion and bilateral pleural effusions. Chest CT reveals bilateral moderate pleural effusions; increased on the right. Now s/p thoracentesis with removal of 600 mL's from right Continue supplemental oxygen and BiPAP as needed to maintain saturations >89% Optimize cardiac output; medications as above. Continue scheduled nebulizer treatments twice daily. Transition to p.o. prednisone. (4) CAD (coronary artery disease) Is this a current diagnosis for this admission?: Yes Plan: Continue metoprolol, [place] 3, and aspirin. Cardiac diet. (5) Gouty arthritis Is this a current diagnosis for this admission?: Yes Plan: Allopurinol discontinued secondary to DEANNA. Gabapentin discontinued secondary to DEANNA. Tylenol and tramadol as needed for pain. Avoid nephrotoxic medications for management of gout; consider low-dose steroids (currently on prednisone for A/C Resp failure) if he has repeat flareup. (6) Hyperkalemia Is this a current diagnosis for this admission?: Yes Plan: Waxing and waning; recurrent secondary to medication noncompliance (patient continues to intermittently decline Veltassa). Potassium 5.5 today. Continue Veltassa; patient was educated on the importance of continuing medications as ordered. Nephrology is consulted; appreciate their assistance. Continue to monitor with daily chemistries. (7) Pleural effusion Is this a current diagnosis for this admission?: Yes Plan: Secondary to CHF exacerbation. Repeat chest x-ray today was stable; Cardiac enlargement with vascular congestion, bibasilar atelectasis and bilateral pleural effusions without si gnificant interval change from previous study completed 07/03/2018. Chest CT reveals moderate pleural effusion; increased on the right. Thoracentesis (07/24/18) with removal of 600 mL's from right Continue furosemide as above. (8) Anxiety Is this a current diagnosis for this admission?: Yes Plan: Stable Continue sceduled BuSpar BID and Ativan 0.5 mg every 4 hours as needed. Greatly improved with Seroquel 25 mg nightly. 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 Decreased alertness today. No focal deficits or facial asymmetry noted. However, with worsened aphasia. Head CT pending Continue aspirin, Lavaza, beta-steve therapy. (10) Atrial flutter with rapid ventricular response Is this a current diagnosis for this admission?: Yes Plan: Now in atrial fibrillation; improved rate control (HR 80-110) with amiodarone and twice daily metoprolol. Previous telemetry and EKG review demonstrated sinus tachycardia w/ HR 120-130; likely was a flutter throughout but was unable to be identified due to conduction. BNP and creatinine increased. Troponins are indeterminately elevated but trended down; no longer following. Unclear etiology; likely secondary to recent medication noncompliance with resultant CHF exacerbation. We will continue to monitor on continuous cardiac telemetry. Cardiology was consulted; appreciate Dr. Patel's assistance. Continue amiodarone in the morning. Continue twice daily metoprolol succinate. Resume renally dosed Eliquis. (11) Tachycardia Is this a current diagnosis for this admission?: Yes Plan: As above. - Time Time Spent with patient: 15-24 minutes Medications reviewed and adjusted accordingly: Yes Anticipated discharge: Home Within: Other - Pending evaluation by Nephrology
[2018-07-27] MEDS ORDERED: BISACODYL 10 MG SUPP.RECT PR ONE (18:30)
[2018-07-27] MEDS: PATIROMER 8.4 GM SUSP PACKET PO SCH (21:14)
[2018-07-27] MEDS: CETIRIZINE 5 MG TABLET PO SCH (21:20)
[2018-07-27] MEDS: QUETIAPINE FUMARATE 25 MG TABLET PO SCH (21:21)
[2018-07-28] MEDS: IPRATROPIUM/ALBUTEROL 0.5-2.5 MG/3 ML AMPUL NEB SCH ×2 (08:54→21:15)
[2018-07-28] MEDS: BUSPIRONE HCL 10 MG TABLET PO SCH ×2 (09:10→21:41)
[2018-07-28] MEDS: FUROSEMIDE 20 MG TABLET PO SCH ×2 (09:10→18:17)
[2018-07-28] MEDS: PREDNISONE 20 MG TABLET PO SCH (09:11)
[2018-07-28] MEDS: AMIODARONE HCL 200 MG TABLET PO SCH ×2 (09:11→21:41)
[2018-07-28] MEDS: DOCUSATE SODIUM 100 MG CAPSULE PO SCH ×3 (09:11→18:17)
[2018-07-28] MEDS: ASPIRIN 81 MG TABLET, ENT COATED PO SCH (09:11)
[2018-07-28] MEDS: APIXABAN 2.5 MG TABLET PO SCH ×2 (09:12→18:17)
[2018-07-28] MEDS: DIGOXIN 0.125 MG TABLET PO SCH (09:12)
[2018-07-28] MEDS: METOPROLOL SUCCINATE 25 MG TAB.SR.24H PO SCH ×2 (09:12→18:17)
[2018-07-28] MEDS: OMEGA-3 ACID ETHYL ESTERS 1 GM CAPSULE PO SCH ×2 (09:13→18:17)
[2018-07-28] MEDS: POLYETHYLENE GLYCOL 3350 POWDER 17 GM/1 PACKET PO SCH ×2 (09:15→21:38)
[2018-07-28 09:23] LABS: HEMATOCRIT 37.7 % (37.9-51.0); HEMOGLOBIN 12.5 g/dL (13.5-17.0); MEAN CORPUSCULAR HEMOGLOBIN 27.3 pg (27.0-33.4); MEAN CORPUSCULAR HGB CONC 33.3 g/dL (32.0-36.0); MEAN CORPUSCULAR VOLUME 82 fl (80-97); PLATELET COUNT 254 10^3/uL (150-450); RED CELL DISTRIBUTION WIDTH 15.5 % (11.5-14.0); WHITE BLOOD COUNT 9.6 10^3/uL (4.0-10.5)
[2018-07-28 09:52] LABS: ANION GAP 11 (5-19); BLOOD UREA NITROGEN 97 mg/dL (7-20); CALCIUM 9.1 mg/dL (8.4-10.2); CARBON DIOXIDE 31 mmol/L (22-30); CHLORIDE 98 mmol/L (98-107); GLUCOSE 92 mg/dL (75-110); POTASSIUM 5.3 mmol/L (3.6-5.0)
--- NOTE | 2018-07-28 20:53 | PDOC CONSULTATION ---
Consultation Consult Date: 07/28/18 Consult reason:: DEANNA History of Present Illness Admission Date/PCP: 05/11/18 12:22 RICK ROBISON MD History of Present Illness: ALEX KNIGHT is a 62 year old male who has coronary artery disease and COPD. Patient patient has history of CABG, ischemic cardiomyopathy status post AICD, chronic respiratory failure on home oxygen, prior stroke with residual aphasia. He came to the ER due to acute SOB and orthopnea a few days prior to coming to the ER. He also noticed an increase in lower leg edema. In the ER a chest X-ray was done that showed pulmonary edema. He also had an asher vated creatinine of 1.4. BNP was 6,800. Through out his 3+ month stay his creatinine stayed elevated. Fluid was persistently remaining due to non- compliance. On july 24 creatinine elevated to 2.2 and continued to elevate until the patient became more compliant with medication. Today patient claims to be feeling better with decreased SOB and swelling. Creatinine has stabilized. Patient denies chest pain, increased SOB, n/v/d/c. Still has some orthopnea. Patient claims to have never had underlining kidney disease nor had an acute kidney injury. Past Medical History Cardiac Medical History: Reports: Coronary Artery Disease, Hyperlipidemia, Myocardial Infarction - 2008 Pulmonary Medical History: Reports: Asthma, Bronchitis, Chronic Obstructive Pulmonary Disease (COPD), Sleep Apnea Neurological Medical History: Denies: Seizures Endocrine Medical History: Reports: Diabetes Mellitus Type 1, Diabetes Mellitus Type 2 Renal/ Medical History: Malignancy Medical History: Denies: Ovarian Cancer GI Medical History: Reports: Diverticulitis, Gastroesophageal Reflux Disease Musculoskeltal Medical History: Reports: Arthritis Denies: Rheumatoid Arthritis, Systemic Lupus Erythematosus Psychiatric Medical History: Reports: Post Traumatic Stress Disorder Denies: Depression Infectious Medical History: Past Surgical History Past Surgical History: Reports: Cardiac Catheterization, Coronary Artery Bypass Graft, Coronary Stent - 1984, Other - AICD Social History Smoking Status: Never Smoker Frequency of Alcohol Use: None Hx Recreational Drug Use: No Drugs: None Hx Prescription Drug Abuse: No Family History Parental Family History Reviewed: Yes Children Family History Reviewed: Unknown Sibling(s) Family History Reviewed.: Unknown Medication/Allergy Home Medications: RX: Albuterol Sulfate [Proair HFA] 1 puff IH Q6HP PRN 03/31/18 RX: Aspirin [Aspirin 81 mg Chewable Tablet] 162 mg PO DAILY 03/31/18 RX: Ganciclovir [Zirgan] 1 drop OD 5XD 03/31/18 RX: [place]-3 Fatty Acids/Fish Oil [Fish Oil 1,000 mg Capsule] 2,000 mg PO BID 11/10 RX: Digoxin [Lanoxin 0.125 mg Tablet] 0.125 mg PO DAILY 30 Days #30 tablet 04/02/18 Furosemide [Lasix 20 mg Tablet] 20 mg PO QAM #10 tablet 05/07/18 Alprazolam [Xanax 0.5 mg Tablet] 0.5 mg PO DAILYP PRN 05/11/18 Dextran 70/Hypromellose [Artificial Tears] 1 drop OP QID 05/11/18 Naproxen [Naprosyn] 500 mg PO BIDP PRN 05/11/18 Potassium Chloride [Klor-Con 10 Meq Capsule ER] 20 meq PO DAILY 05/11/18 RX: Methenamine Hippurate 24 gm PO .ASDIRECTED 05/11/18 Spironolactone [Aldactone 25 mg Tablet] 12.5 mg PO DAILY 05/11/18 Allergies/Adverse Reactions: captopril [From Capoten] Allergy (Severe, Verified 05/11/18 08:49) Angioedema atorvastatin calcium [From Lipitor] Allergy (Intermediate, Verified 05/11/18 08:49) Angioedema clopidogrel [From Plavix] Allergy (Verified 05/11/18 08:49) rosuvastatin [From Crestor] Allergy (Verified 05/11/18 08:49) simvastatin [From Zocor] Allergy (Verified 05/11/18 08:49) Angioedema milk Adverse Reaction (Verified 07/26/18 10:24) Diarrhea Review of Systems Constitutional: ABSENT: chills, fever(s) Eyes: ABSENT: visual disturbances Cardiovascular: PRESENT: dyspnea on exertion, edema, orthropnea. ABSENT: chest pain Respiratory: PRESENT: cough, dyspnea, sputum Gastrointestinal: ABSENT: abdominal pain, constipation, diarrhea, nausea, vomiting Genitourinary: ABSENT: difficulty urinating, dysuria Integumentary: ABSENT: erythema Neurological: ABSENT: confusion, weakness Psychiatric: PRESENT: depression Physical Exam Vital Signs: Temp Pulse Resp BP Pulse Ox 98.0 F 89 18 123/54 L 99 07/28/18 11:37 07/28/18 19:00 07/28/18 11:37 07/28/18 11:37 07/28/18 11:37 Intake & Output 07/27/18 07/28/18 07/29/18 06:59 06:59 06:59 Intake Total 576 681 662 Output Total 375 375 775 Balance 201 306 -113 Weight 90.2 kg 90.2 kg General appearance: PRESENT: no acute distress, obese, well-developed Eye exam: PRESENT: PERRLA. ABSENT: scleral icterus Mouth exam: PRESENT: moist, neck supple Neck exam: ABSENT: JVD, tracheal deviation Respiratory exam: PRESENT: crackles, decreased breath sounds, rales. ABSENT: accessory muscle use, clear to auscultation rahul, rhonchi, wheezes Cardiovascular exam: PRESENT: +S1, +S2 GI/Abdominal exam: PRESENT: soft. ABSENT: ascites, distended, rigid, tenderness Extremities exam: PRESENT: +1 edema. ABSENT: pedal edema, tenderness Musculoskeletal exam: PRESENT: normal inspection. ABSENT: tenderness Neurological exam: PRESENT: alert, awake, oriented to person, oriented to place, oriented to time, oriented to situation Psychiatric exam: PRESENT: agitated, manic. ABSENT: appropriate affect Skin exam: PRESENT: dry, intact, warm Results Laboratory Results: 07/28/18 08:50 07/28/18 08:50 07/28/18 07/28/18 08:50 08:50 WBC 9.6 RBC 4.60 Hgb 12.5 L Hct 37.7 L MCV 82 MCH 27.3 MCHC 33.3 RDW 15.5 H Plt Count 254 Sodium 140.0 Potassium 5.3 H Chloride 98 Carbon Dioxide 31 H Anion Gap 11 BUN 97 H Creatinine 2.78 H Est GFR ( Amer) 28 L Est GFR (Non-Af Amer) 23 L Glucose 92 Calcium 9.1 05/11/18 05/11/18 05/11/18 09:35 09:35 09:35 Creatine Kinase 37 L CK-MB (CK-2) Troponin I 0.071 NT-Pro-B Natriuret Pep 6800 H 05/11/18 05/11/18 05/12/18 12:30 19:00 01:06 Creatine Kinase CK-MB (CK-2) Troponin I 0.067 0.064 0.050 NT-Pro-B Natriuret Pep 05/23/18 05/24/18 05/27/18 10:36 09:38 10:01 Creatine Kinase CK-MB (CK-2) Troponin I 0.060 NT-Pro-B Natriuret Pep 819 889 06/03/18 06/08/18 06/08/18 08:12 13:40 13:40 Creatine Kinase 39 L CK-MB (CK-2) 1.92 Troponin I 0.060 NT-Pro-B Natriuret Pep 1420 H 06/08/18 06/08/18 06/09/18 19:03 19:03 00:59 Creatine Kinase 36 L 34 L CK-MB (CK-2) 1.75 Troponin I 0.058 NT-Pro-B Natriuret Pep 06/09/18 06/09/18 06/09/18 00:59 08:04 08:04 Creatine Kinase 32 L CK-MB (CK-2) 1.58 1.79 Troponin I 0.063 0.064 NT-Pro-B Natriuret Pep 06/09/18 06/09/18 06/09/18 12:52 12:52 19:00 Creatine Kinase 46 L 31 L CK-MB (CK-2) 1.99 Troponin I 0.051 NT-Pro-B Natriuret Pep 06/09/18 06/25/18 07/04/18 19:00 07:35 08:21 Creatine Kinase CK-MB (CK-2) 1.80 Troponin I 0.072 0.054 NT-Pro-B Natriuret Pep 1660 H 07/20/18 07/20/18 07/20/18 22:16 22:16 22:16 Creatine Kinase 30 L CK-MB (CK-2) 2.79 Troponin I 0.077 NT-Pro-B Natriuret Pep 07/21/18 07/22/18 07/24/18 10:10 12:45 14:15 Creatine Kinase CK-MB (CK-2) Troponin I 0.076 0.064 NT-Pro-B Natriuret Pep 8000 H 56569 H 07/27/18 10:52 Creatine Kinase CK-MB (CK-2) Troponin I NT-Pro-B Natriuret Pep 13025 H Impressions: Chest CT 07/24/18 00:00 IMPRESSION: 1. Moderate bilateral pleural effusions greater on the right. 2. Moderate pericardial effusion with cardiomegaly. Head CT 07/24/18 00:00 IMPRESSION: No hemorrhage. No midline shift. Multiple Areas of low density in the white matter due to chronic ischemic change. No evidence for acute infarcti on. EVIDENCE OF ACUTE STROKE: NO. Chest X-Ray 07/25/18 00:00 IMPRESSION: NO PNEUMOTHORAX ON IMAGE ACQUIRED 2 HOURS AFTER THORACENTESIS. NO CHANGE IN APPEARANCE OF THE CHEST. Thoracentesis Ultrasound 07/25/18 10:27 IMPRESSION: SUCCESSFUL THORACENTESIS USING ULTRASOUND GUIDANCE. Assessment & Plan - Diagnosis (1) DEANNA (acute kidney injury) Is this a current diagnosis for this admission?: Yes Plan: Nonoliguric, looks to be due to CHF, other underlining factors include blood pressure at the low end of normal. CHF looks to be improving. Continue furosemide as ordered. Will also look to order a renal ultrasound. Recommend cl ose Is&Os. No current indication for renal replacement therapy. Concerns for biventricular heart failure so diuretics will be less affective for the right sided heart failure. (2) Acute on chronic systolic (congestive) heart failure Is this a current diagnosis for this admission?: Yes Plan: Looks to have biventricular heart failure, concerns that diuretics will be less affective for the right sided heart failure. Continue furosemide as ordered. Will re-evaluate with a chest x-ray tomorrow to see if diuretics needs to be dec reased. (3) Hyperkalemia Is this a current diagnosis for this admission?: Yes Plan: continue on veltessa, recommend renal diet. Discussed low potassium diet. (4) Acute respiratory failure with hypoxia and hypercapnia Is this a current diagnosis for this admission?: Yes Plan: looks to be improving, on steroids, breathing treatments and furosemide. Underlining COPD on oxygen (5) Atrial flutter with rapid ventricular response Is this a current diagnosis for this admission?: Yes Plan: per cardiology (6) COPD (chronic obstructive pulmonary disease) Is this a current diagnosis for this admission?: Yes Plan: on breathing treatments, steroids, and oxgen (7) Essential hypertension Plan: currently controlled, may need midodrine if metoprolol continues to decrease blood pressure. Will monitor since steroid was added. (8) Type 2 diabetes mellitus Qualifiers: Is this a current diagnosis for this admission?: Yes
[2018-07-28] MEDS: PATIROMER 8.4 GM SUSP PACKET PO SCH (21:37)
[2018-07-28] MEDS: QUETIAPINE FUMARATE 25 MG TABLET PO SCH (21:38)
[2018-07-28] MEDS: ACETAMINOPHEN 325 MG TABLET PO PRN (21:40)
[2018-07-28] MEDS: CETIRIZINE 5 MG TABLET PO SCH (21:40)
[2018-07-29] MEDS: TRAMADOL HCL 50 MG TABLET PO PRN (00:48)
[2018-07-29 08:24] LABS: HEMATOCRIT 37.9 % (37.9-51.0); HEMOGLOBIN 12.2 g/dL (13.5-17.0); MEAN CORPUSCULAR HEMOGLOBIN 26.7 pg (27.0-33.4); MEAN CORPUSCULAR HGB CONC 32.3 g/dL (32.0-36.0); MEAN CORPUSCULAR VOLUME 83 fl (80-97); PLATELET COUNT 267 10^3/uL (150-450); RED BLOOD COUNT 4.57 10^6/uL (4.35-5.55); RED CELL DISTRIBUTION WIDTH 15.8 % (11.5-14.0); WHITE BLOOD COUNT 7.6 10^3/uL (4.0-10.5)
[2018-07-29 08:44] LABS: ANION GAP 11 (5-19); BLOOD UREA NITROGEN 104 mg/dL (7-20); CALCIUM 9.3 mg/dL (8.4-10.2); CARBON DIOXIDE 33 mmol/L (22-30); CHLORIDE 98 mmol/L (98-107); GLUCOSE 98 mg/dL (75-110); POTASSIUM 5.3 mmol/L (3.6-5.0)
[2018-07-29] MEDS: AMIODARONE HCL 200 MG TABLET PO SCH ×2 (09:10→21:20)
[2018-07-29] MEDS: ACETAMINOPHEN 325 MG TABLET PO PRN ×2 (09:10→15:51)
[2018-07-29] MEDS: FUROSEMIDE 20 MG TABLET PO SCH ×2 (09:10→17:37)
[2018-07-29] MEDS: ASPIRIN 81 MG TABLET, ENT COATED PO SCH (09:10)
[2018-07-29] MEDS: PREDNISONE 20 MG TABLET PO SCH (09:11)
[2018-07-29] MEDS: BUSPIRONE HCL 10 MG TABLET PO SCH ×2 (09:11→21:20)
[2018-07-29] MEDS: METOPROLOL SUCCINATE 25 MG TAB.SR.24H PO SCH ×2 (09:11→17:36)
[2018-07-29] MEDS: APIXABAN 2.5 MG TABLET PO SCH ×2 (09:11→17:36)
[2018-07-29] MEDS: DIGOXIN 0.125 MG TABLET PO SCH (09:11)
[2018-07-29] MEDS: DOCUSATE SODIUM 100 MG CAPSULE PO SCH ×3 (09:11→17:36)
[2018-07-29] MEDS: POLYETHYLENE GLYCOL 3350 POWDER 17 GM/1 PACKET PO SCH ×2 (09:12→21:18)
[2018-07-29] MEDS: OMEGA-3 ACID ETHYL ESTERS 1 GM CAPSULE PO SCH ×2 (09:12→17:37)
[2018-07-29] MEDS: IPRATROPIUM/ALBUTEROL 0.5-2.5 MG/3 ML AMPUL NEB SCH ×2 (09:54→20:19)
--- NOTE | 2018-07-29 18:25 | PDOC PROGRESS REPORT ---
Subjective Progress Note for:: 07/29/18 Subjective:: ALEX Guadarrama KNIGHT is a 62 year old male who has coronary artery disease and COPD. Patient patient has history of CABG, ischemic cardiomyopathy status post AICD, chronic respiratory failure on home oxygen, prior stroke with residual aphasia. Patient noted to be in atrial fibrillation with rapid ventricular response. Patient was previously seen by me earlier this admission. Patient noted to have been decompensated but have gradually improved. Currently he barbi ins in atrial flutter however heart rate is well controlled. Patient has also noted to have worsening renal functions and there is significant elevation of BNP level. 2D echo obtained had shown worsening LVEF and also some worsening valvular regurgitation. Reason For Visit: CHF Physical Exam Vital Signs: Temp Pulse Resp BP Pulse Ox 97.6 F 92 16 108/58 L 100 07/29/18 09:07 07/29/18 14:00 07/29/18 09:54 07/29/18 09:07 07/29/18 09:54 Intake & Output 07/28/18 07/29/18 07/30/18 06:59 06:59 06:59 Intake Total 681 662 472 Output Total 375 1245 600 Balance 306 -583 -128 Weight 90.2 kg Exam: GENERAL: well-nourished and in no acute distress. Alert and oriented x3 HEAD: Atraumatic, normocephalic. EYES: JOHNATH[place], sclera anicteric, conjunctiva are normal. ENT: Moist mucous membranes. No oral ulcerations or bleeding gums noted. No ob vious ear, nose or throat abnormalities noted. NECK: supple without lymphadenopathy. Trachea is central. No cervical or axillary lymphadenopathy noted. Carotids are 2+, JVD borderline elevated. LUNGS: Breath sounds clear bilaterally. No wheezes rales or rhonchi noted. Bilateral mild dullness noted.. CHEST: Palpation of the chest wall shows no significant chest wall tenderness. HEART: [place] [employer] REPA[employer]ER, No PSH, 1/6 NTIISH aortic area, 1/6 daly systolic murmur mitral area, no rubs, no gallops. ABDOMEN: Soft, no significant tenderness appreciated, normoactive bowel sounds. No guarding, no rebound. No rigidity noted . No masses appreciated. EXTREMITIES: Pedal pulses are 1-2+, no calf tenderness noted. No clubbing or cyanosis. Trace to 1+ pedal edema noted NEUROLOGICAL: Focused neurological exam showed no significant neurologic deficit. Normal speech, no focal weakness appreciated. PSYCH: Normal mood, normal affect. Judgment and insight within normal limits. SKIN: No significant ecchymosis, skin is noted to be warm. MUSCULOSKELETAL EXAM: No significant acute joint swelling noted. Results Laboratory Results: 07/29/18 07:50 07/29/18 07:50 07/29/18 07/29/18 07:50 07:50 WBC 7.6 RBC 4.57 Hgb 12.2 L Hct 37.9 MCV 83 MCH 26.7 L MCHC 32.3 RDW 15.8 H Plt Count 267 Sodium 142.0 Potassium 5.3 H Chloride 98 Carbon Dioxide 33 H Anion Gap 11 BUN 104 H Creatinine 2.87 H Est GFR ( Amer) 27 L Est GFR (Non-Af Amer) 22 L Glucose 98 Calcium 9.3 05/11/18 05/11/18 05/11/18 09:35 09:35 09:35 Creatine Kinase 37 L CK-MB (CK-2) Troponin I 0.071 NT-Pro-B Natriuret Pep 6800 H 05/11/18 05/11/18 05/12/18 12:30 19:00 01:06 Creatine Kinase CK-MB (CK-2) Troponin I 0.067 0.064 0.050 NT-Pro-B Natriuret Pep 05/23/18 05/24/18 05/27/18 10:36 09:38 10:01 Creatine Kinase CK-MB (CK-2) Troponin I 0.060 NT-Pro-B Natriuret Pep 819 889 06/03/18 06/08/18 06/08/18 08:12 13:40 13:40 Creatine Kinase 39 L CK-MB (CK-2) 1.92 Troponin I 0.060 NT-Pro-B Natriuret Pep 1420 H 06/08/18 06/08/18 06/09/18 19:03 19:03 00:59 Creatine Kinase 36 L 34 L CK-MB (CK-2) 1.75 Troponin I 0.058 NT-Pro-B Natriuret Pep 06/09/18 06/09/18 06/09/18 00:59 08:04 08:04 Creatine Kinase 32 L CK-MB (CK-2) 1.58 1.79 Troponin I 0.063 0.064 NT-Pro-B Natriuret Pep 06/09/18 06/09/18 06/09/18 12:52 12:52 19:00 Creatine Kinase 46 L 31 L CK-MB (CK-2) 1.99 Troponin I 0.051 NT-Pro-B Natriuret Pep 06/09/18 06/25/18 07/04/18 19:00 07:35 08:21 Creatine Kinase CK-MB (CK-2) 1.80 Troponin I 0.072 0.054 NT-Pro-B Natriuret Pep 1660 H 07/20/18 07/20/18 07/20/18 22:16 22:16 22:16 Creatine Kinase 30 L CK-MB (CK-2) 2.79 Troponin I 0.077 NT-Pro-B Natriuret Pep 07/21/18 07/22/18 07/24/18 10:10 12:45 14:15 Creatine Kinase CK-MB (CK-2) Troponin I 0.076 0.064 NT-Pro-B Natriuret Pep 8000 H 07368 H 07/27/18 10:52 Creatine Kinase CK-MB (CK-2) Troponin I NT-Pro-B Natriuret Pep 51295 H EKG Comments: Shows atrial flutter fibrillation with controlled ventricular response and intermittent ventricular paced beats. Impressions: Chest CT 07/24/18 00:00 IMPRESSION: 1. Moderate bilateral pleural effusions greater on the right. 2. Moderate pericardial effusion with cardiomegaly. Head CT 07/24/18 00:00 IMPRESSION: No hemorrhage. No midline shift. Multiple Areas of low density in the white matter due to chronic ischemic change. No evidence for acute infarction. EVIDENCE OF ACUTE STROKE: NO. Chest X-Ray 07/25/18 00:00 IMPRESSION: NO PNEUMOTHORAX ON IMAGE ACQUIRED 2 HOURS AFTER THORACENTESIS. NO CHANGE IN APPEARANCE OF THE CHEST. Thoracentesis Ultrasound 07/25/18 10:27 IMPRESSION: SUCCESSFUL THORACENTESIS USING ULTRASOUND GUIDANCE. Assessment & Plan - Diagnosis (1) Acute on chronic systolic (congestive) heart failure Is this a current diagnosis for this admission?: Yes (2) Pleural effusion Is this a current diagnosis for this admission?: Yes (3) Atrial fibrillation Qualifiers: Atrial fibrillation type: paroxysmal Qualified Code(s): I48.0 - Paroxysmal atrial fibrillation Is this a current diagnosis for this admission?: Yes (4) Coronary artery disease Qualifiers: Coronary Disease-Associated Artery/Lesion type: unspecified vessel or lesion type [place] vs. transplanted heart: [place] heart Associated angina: angina presence unspecified Qualified Code(s): I25.10 - Atherosclerotic heart disease of [place] coronary artery without angina pectoris Is this a current diagnosis for this admission?: Yes (5) History of CVA (cerebrovascular accident) Is this a current diagnosis for this admission?: Yes - Notes Notes: Acute on chronic systolic heart failure: Improved. Continue diuretics and other supportive care. Unfortunately patient has allergies to UZMA inhibitor, exact allergy could not be determined so far. Will recommend hydralazine nitrate combination. Pleural effusion: Related to CHF. Currently stable. Patient had thoracentesis. Atrial flutter fibrillation: Continue amiodarone therapy. Should patient agreed to be transferred to tertiary care, may consider ablation therapy. Continue with rate control and chronic anticoagulation. Coronary artery disease: Currently stable without any angina or angina equivalent symptoms. History of cerebrovascular accident: Continue with chronic anticoagulation. - Time Time with patient: Greater than 35 minutes - More than 50% of the time spent coordinating care, discussing management plans with involved caregivers. Management plans discussed with involved personnels. Medical decision making was of moderate to high complexity, patient's has multiple comorbidities. Medications reviewed and adjusted accordingly: Yes
[2018-07-29] MEDS: PATIROMER 8.4 GM SUSP PACKET PO SCH (20:02)
[2018-07-29] MEDS: CETIRIZINE 5 MG TABLET PO SCH (21:20)
[2018-07-29] MEDS: QUETIAPINE FUMARATE 25 MG TABLET PO SCH (21:20)
--- NOTE | 2018-07-29 22:31 | RADIOLOGY REPORT (SQ) ---
EXAM DESCRIPTION: XR CHEST 1 VIEW COMPLETED DATE/TME: 07/29/2018 18:07 CLINICAL HISTORY: 62 years, Male, CHF COMPARISON: -19 chest NUMBER OF VIEWS: 1 TECHNIQUE: Portable chest LIMITATIONS: None. FINDINGS: Cardiomegaly. Left-sided pacing device. Low lung volumes. Moderate right pleural effusion with probable small left effusion as well. Patchy airspace opacity over the right lung base. Findings have slightly worsened from the prior. No pneumothorax IMPRESSION: Slight worsening of a now moderate right pleural effusion with patchy adjacent airspace opacity. Stable cardiomegaly copyright 2010 [employer]- All Rights Reserved
--- NOTE | 2018-07-29 22:55 | PDOC PROGRESS REPORT ---
Subjective Progress Note for:: 07/28/18 Subjective:: Sleeping comfortably but awoken with a start complaining of his right leg. He was quite agitated. Reason For Visit: Congestive heart failure Hypoxic respiratory failure Acute kidney injury Physical Exam Vital Signs: Temp Pulse Resp BP Pulse Ox 97.8 F 59 L 20 125/67 98 07/28/18 19:10 07/28/18 19:10 07/28/18 19:10 07/28/18 19:10 07/28/18 19:10 Intake & Output 07/27/18 07/28/18 07/29/18 06:59 06:59 06:59 Intake Total 576 681 662 Output Total 375 375 775 Balance 201 306 -113 Weight 90.2 kg 90.2 kg General appearance: ABSENT: cooperative - Very agitated Head exam: PRESENT: normocephalic Respiratory exam: PRESENT: clear to auscultation rahul, rales, symmetrical, unlabored. ABSENT: rhonchi, wheezes Cardiovascular exam: PRESENT: RRR, +S1, +S2 GI/Abdominal exam: PRESENT: normal bowel sounds, soft. ABSENT: distended, tenderness Rectal exam: PRESENT: deferred Extremities exam: PRESENT: pedal edema Neurological exam: PRESENT: alert, awake, oriented to person, oriented to place Psychiatric exam: PRESENT: agitated Results Laboratory Results: 07/28/18 08:50 07/28/18 08:50 07/28/18 07/28/18 08:50 08:50 WBC 9.6 RBC 4.60 Hgb 12.5 L Hct 37.7 L MCV 82 MCH 27.3 MCHC 33.3 RDW 15.5 H Plt Count 254 Sodium 140.0 Potassium 5.3 H Chloride 98 Carbon Dioxide 31 H Anion Gap 11 BUN 97 H Creatinine 2.78 H Est GFR ( Amer) 28 L Est GFR (Non-Af Amer) 23 L Glucose 92 Calcium 9.1 05/11/18 05/11/18 05/11/18 09:35 09:35 09:35 Creatine Kinase 37 L CK-MB (CK-2) Troponin I 0.071 NT-Pro-B Natriuret Pep 6800 H 05/11/18 05/11/18 05/12/18 12:30 19:00 01:06 Creatine Kinase CK-MB (CK-2) Troponin I 0.067 0.064 0.050 NT-Pro-B Natriuret Pep 05/23/18 05/24/18 05/27/18 10:36 09:38 10:01 Creatine Kinase CK-MB (CK-2) Troponin I 0.060 NT-Pro-B Natriuret Pep 819 889 06/03/18 06/08/18 06/08/18 08:12 13:40 13:40 Creatine Kinase 39 L CK-MB (CK-2) 1.92 Troponin I 0.060 NT-Pro-B Natriuret Pep 1420 H 06/08/18 06/08/18 06/09/18 19:03 19:03 00:59 Creatine Kinase 36 L 34 L CK-MB (CK-2) 1.75 Troponin I 0.058 NT-Pro-B Natriuret Pep 06/09/18 06/09/18 06/09/18 00:59 08:04 08:04 Creatine Kinase 32 L CK-MB (CK-2) 1.58 1.79 Troponin I 0.063 0.064 NT-Pro-B Natriuret Pep 06/09/18 06/09/18 06/09/18 12:52 12:52 19:00 Creatine Kinase 46 L 31 L CK-MB (CK-2) 1.99 Troponin I 0.051 NT-Pro-B Natriuret Pep 06/09/18 06/25/18 07/04/18 19:00 07:35 08:21 Creatine Kinase CK-MB (CK-2) 1.80 Troponin I 0.072 0.054 NT-Pro-B Natriuret Pep 1660 H 07/20/18 07/20/18 07/20/18 22:16 22:16 22:16 Creatine Kinase 30 L CK-MB (CK-2) 2.79 Troponin I 0.077 NT-Pro-B Natriuret Pep 07/21/18 07/22/18 07/24/18 10:10 12:45 14:15 Creatine Kinase CK-MB (CK-2) Troponin I 0.076 0.064 NT-Pro-B Natriuret Pep 8000 H 14384 H 07/27/18 10:52 Creatine Kinase CK-MB (CK-2) Troponin I NT-Pro-B Natriuret Pep 72226 H Impressions: Chest CT 07/24/18 00:00 IMPRESSION: 1. Moderate bilateral pleural effusions greater on the right. 2. Moderate pericardial effusion with cardiomegaly. Head CT 07/24/18 00:00 IMPRESSION: No hemorrhage. No midline shift. Multiple Areas of low density in the white matter due to chronic ischemic change. No evidence for acute infarction. EVIDENCE OF ACUTE STROKE: NO. Chest X-Ray 07/25/18 00:00 IMPRESSION: NO PNEUMOTHORAX ON IMAGE ACQUIRED 2 HOURS AFTER THORACENTESIS. NO CHANGE IN APPEARANCE OF THE CHEST. Thoracentesis Ultrasound 07/25/18 10:27 IMPRESSION: SUCCESSFUL THORACENTESIS USING ULTRASOUND GUIDANCE. Assessment & Plan - Diagnosis (1) Acute on chronic systolic (congestive) heart failure Is this a current diagnosis for this admission?: Yes Plan: Please also see cardiology notes. Improved. Currently on furosemide, metoprolol, amiodarone, digoxin, statin therapy and an aspirin. No UZMA inhibitor secondary to kidney injury. (2) DEANNA (acute kidney injury) Is this a current diagnosis for this admission?: Yes Plan: Please also see nephrology note. Likely etiology is congestive heart failure and hypoperfusion due to low blood pressure. Continue furosemide. Will need to follow-up with nephrology as an outpatient. (3) Acute respiratory failure with hypoxia Is this a current diagnosis for this admission?: Yes Plan: Has weaned off of BiPAP. Only requires nasal cannula. Continue nebulizer and diuresis as well as oxygen supplementation. May benefit from inhaler therapy. (4) Gouty arthritis Is this a current diagnosis for this admission?: Yes Plan: Minimal intervention due to limited use of medications so as not to exacerbate acute kidney injury. Monitor clinically. (5) Atrial flutter with rapid ventricular response Is this a current diagnosis for this admission?: Yes Plan: Metoprolol, digoxin and amiodarone as noted above. Chronic anticoagulation as well. Follow-up with cardiology after discharge. (6) Hyperkalemia Is this a current diagnosis for this admission?: Yes Plan: Most likely secondary to acute kidney injury. Requires a low potassium diet. (7) Coronary artery disease Qualifiers: Coronary Disease-Associated Artery/Lesion type: unspecified vessel or lesion type [place] vs. transplanted heart: [place] heart Associated angina: angina presence unspecified Qualified Code(s): I25.10 - Atherosclerotic heart disease of [place] coronary artery without angina pectoris Is this a current diagnosis for this admission?: Yes Plan: Continue current medication regimen. (8) Pleural effusion Is this a current diagnosis for this admission?: Yes Plan: The patient underwent thoracentesis with successful removal of fluid. Continue to monitor. (9) Anxiety Is this a current diagnosis for this admission?: Yes Plan: Continue Seroquel and BuSpar with Ativan as needed. (10) History of CVA (cerebrovascular accident) Is this a current diagnosis for this admission?: Yes Plan: Continue to control blood pressure and continue statin therapy. He does have some dysarthria from his old stroke and so it is sometimes difficult to comprehend the patient. I think this is very frustrating for him. - Time Time Spent with patient: 15-24 minutes Medications reviewed and adjusted accordingly: Yes Anticipated discharge: Other Within: within 48 hours
--- NOTE | 2018-07-29 22:59 | PDOC PROGRESS REPORT ---
Subjective Progress Note for:: 07/29/18 Subjective:: Sleeping again today. Patient reports difficulty sleeping at night. Fortunately he did not wake up with a start and become agitated today. His lunch was present but he stated that he was not hungry. Reason For Visit: CHF Physical Exam Vital Signs: Temp Pulse Resp BP Pulse Ox 97.6 F 58 L 16 108/58 L 100 07/29/18 09:07 07/29/18 09:54 07/29/18 09:54 07/29/18 09:07 07/29/18 09:54 Intake & Output 07/28/18 07/29/18 07/30/18 06:59 06:59 06:59 Intake Total 681 662 237 Output Total 375 1245 200 Balance 306 -583 37 Weight 90.2 kg General appearance: PRESENT: no acute distress, cooperative, well-developed Head exam: PRESENT: normocephalic Respiratory exam: PRESENT: rales - Faint at bases, symmetrical, unlabored. ABSENT: rhonchi, wheezes Cardiovascular exam: PRESENT: RRR, +S1, +S2 GI/Abdominal exam: PRESENT: normal bowel sounds, soft. ABSENT: distended, tenderness Rectal exam: PRESENT: deferred Extremities exam: ABSENT: pedal edema Neurological exam: PRESENT: alert, awake, oriented to person, oriented to place, other - Dysarthria Psychiatric exam: PRESENT: appropriate affect. ABSENT: agitated, anxious Focused psych exam: ABSENT: delusional, restlessness Results Laboratory Results: 07/29/18 07:50 07/29/18 07:50 07/29/18 07/29/18 07:50 07:50 WBC 7.6 RBC 4.57 Hgb 12.2 L Hct 37.9 MCV 83 MCH 26.7 L MCHC 32.3 RDW 15.8 H Plt Count 267 Sodium 142.0 Potassium 5.3 H Chloride 98 Carbon Dioxide 33 H Anion Gap 11 BUN 104 H Creatinine 2.87 H Est GFR ( Amer) 27 L Est GFR (Non-Af Amer) 22 L Glucose 98 Calcium 9.3 05/11/18 05/11/18 05/11/18 09:35 09:35 09:35 Creatine Kinase 37 L CK-MB (CK-2) Troponin I 0.071 NT-Pro-B Natriuret Pep 6800 H 05/11/18 05/11/18 05/12/18 12:30 19:00 01:06 Creatine Kinase CK-MB (CK-2) Troponin I 0.067 0.064 0.050 NT-Pro-B Natriuret Pep 05/23/18 05/24/18 05/27/18 10:36 09:38 10:01 Creatine Kinase CK-MB (CK-2) Troponin I 0.060 NT-Pro-B Natriuret Pep 819 889 06/03/18 06/08/18 06/08/18 08:12 13:40 13:40 Creatine Kinase 39 L CK-MB (CK-2) 1.92 Troponin I 0.060 NT-Pro-B Natriuret Pep 1420 H 06/08/18 06/08/18 06/09/18 19:03 19:03 00:59 Creatine Kinase 36 L 34 L CK-MB (CK-2) 1.75 Troponin I 0.058 NT-Pro-B Natriuret Pep 06/09/18 06/09/18 06/09/18 00:59 08:04 08:04 Creatine Kinase 32 L CK-MB (CK-2) 1.58 1.79 Troponin I 0.063 0.064 NT-Pro-B Natriuret Pep 06/09/18 06/09/18 06/09/18 12:52 12:52 19:00 Creatine Kinase 46 L 31 L CK-MB (CK-2) 1.99 Troponin I 0.051 NT-Pro-B Natriuret Pep 06/09/18 06/25/18 07/04/18 19:00 07:35 08:21 Creatine Kinase CK-MB (CK-2) 1.80 Troponin I 0.072 0.054 NT-Pro-B Natriuret Pep 1660 H 07/20/18 07/20/18 07/20/18 22:16 22:16 22:16 Creatine Kinase 30 L CK-MB (CK-2) 2.79 Troponin I 0.077 NT-Pro-B Natriuret Pep 07/21/18 07/22/18 07/24/18 10:10 12:45 14:15 Creatine Kinase CK-MB (CK-2) Troponin I 0.076 0.064 NT-Pro-B Natriuret Pep 8000 H 56894 H 07/27/18 10:52 Creatine Kinase CK-MB (CK-2) Troponin I NT-Pro-B Natriuret Pep 23855 H Impressions: Chest CT 07/24/18 00:00 IMPRESSION: 1. Moderate bilateral pleural effusions greater on the right. 2. Moderate pericardial effusion with cardiomegaly. Head CT 07/24/18 00:00 IMPRESSION: No hemorrhage. No midline shift. Multiple Areas of low density in the white matter due to chronic ischemic change. No evidence for acute infarction. EVIDENCE OF ACUTE STROKE: NO. Chest X-Ray 07/25/18 00:00 IMPRESSION: NO PNEUMOTHORAX ON IMAGE ACQUIRED 2 HOURS AFTER THORACENTESIS. NO CHANGE IN APPEARANCE OF THE CHEST. Thoracentesis Ultrasound 07/25/18 10:27 IMPRESSION: SUCCESSFUL THORACENTESIS USING ULTRASOUND GUIDANCE. Assessment & Plan - Diagnosis (1) DEANNA (acute kidney injury) Is this a current diagnosis for this admission?: Yes Plan: Please also see nephrology note. Likely etiology is congestive heart failure and hypoperfusion due to low blood pressure. Continue furosemide. Will need to follow-up with nephrology as an outpatient. The patient is planned for dis charge tomorrow. He is a NH patient and so follow-up will likely be at the NH clinic. (2) Acute on chronic systolic (congestive) heart failure Is this a current diagnosis for this admission?: Yes Plan: Continue current medications and follow-up with cardiology at the NH. (3) Acute respiratory failure with hypoxia Is this a current diagnosis for this admission?: Yes Plan: No longer on BiPAP. Continue oxygen supplementation. (4) Atrial flutter with rapid ventricular response Is this a current diagnosis for this admission?: Yes Plan: Continue current medication regimen. Follow-up with cardiology after discharge. (5) CAD (coronary artery disease) Is this a current diagnosis for this admission?: Yes Plan: History of these. Continue current medication regimen. (6) Hyperkalemia Is this a current diagnosis for this admission?: Yes Plan: Most likely secondary to acute kidney injury. Requires a low potassium diet. (7) Pleural effusion Is this a current diagnosis for this admission?: Yes Plan: The patient underwent thoracentesis with successful removal of fluid. Continue to monitor. - Time Time Spent with patient: 15-24 minutes Medications reviewed and adjusted accordingly: Yes
[2018-07-30] MEDS: IPRATROPIUM/ALBUTEROL 0.5-2.5 MG/3 ML AMPUL NEB SCH (07:36)
[2018-07-30] MEDS: DOCUSATE SODIUM 100 MG CAPSULE PO SCH (10:15)
[2018-07-30] MEDS: APIXABAN 2.5 MG TABLET PO SCH (10:15)
[2018-07-30] MEDS: AMIODARONE HCL 200 MG TABLET PO SCH (10:15)
[2018-07-30] MEDS: DIGOXIN 0.125 MG TABLET PO SCH (10:15)
[2018-07-30] MEDS: PREDNISONE 20 MG TABLET PO SCH (10:15)
[2018-07-30] MEDS: ASPIRIN 81 MG TABLET, ENT COATED PO SCH (10:15)
[2018-07-30] MEDS: BUSPIRONE HCL 10 MG TABLET PO SCH (10:15)
[2018-07-30] MEDS: POLYETHYLENE GLYCOL 3350 POWDER 17 GM/1 PACKET PO SCH (10:16)
[2018-07-30] MEDS: FUROSEMIDE 20 MG TABLET PO SCH (10:16)
[2018-07-30] MEDS: METOPROLOL SUCCINATE 25 MG TAB.SR.24H PO SCH (10:16)
[2018-07-30] MEDS: OMEGA-3 ACID ETHYL ESTERS 1 GM CAPSULE PO SCH (10:16)
--- NOTE | 2018-07-30 11:19 | PDOC DISCHARGE SUMMARY ---
General - Admit/Disc Date/PCP Admission Date/Primary Care Provider: 05/11/18 12:22 RICK ROBISON MD Discharge Date: 07/30/18 - Discharge Diagnosis (1) DEANNA (acute kidney injury) Is this a current diagnosis for this admission?: Yes Summary: Please also see nephrology notes. Patient would benefit from follow-up with nephrology after discharge. The patient has developed acute kidney injury during this prolonged hospitalization. It is felt to be due to his congestive heart failure. He has a depressed ejection fraction with systolic failure as well as diastolic failure (2/4) by echocardiogram. He does require diuretic therapy. This is more effective for the left heart failure in the right heart failure. The patient has typically exhibited lower blood pressure. He is only on furosemide 20 mg twice daily, metoprolol succinate 25 mg, digoxin 0.125 mg daily and amiodarone 200 mg twice daily but he will often refuse his medications. Would suggest monitoring levels secondary to his renal function. He is also on Veltassa for his hyperkalemia. Because of his multiple comorbidities it is likely that this will become a chronic renal failure picture. (2) Acute on chronic systolic (congestive) heart failure Is this a current diagnosis for this admission?: Yes Summary: On an echocardiogram performed during this hospitalization he has decreased ejection fraction at 30-35% with dilated left ventricle. He exhibits moderate to severe hypokinesis of the left ventricle. There is also bilateral atrial enlargement from valvular disease. He also has grade 2/4 diastolic dysfunction. He is tolerating furosemide 20 mg twice daily but often refuses his medications. His blood pressure typically runs on the low side. We are trying to control his atrial flutter with amiodarone, metoprolol and digoxin. He did develop pleural effusion that was successfully tapped and the echocardiogram revealed a small pericardial effusion. Continue to adjust medications as indicated. (3) Diastolic congestive heart failure Is this a current diagnosis for this admission?: Yes Summary: Echocardiogram revealed diastolic dysfunction as well. Continue current regimen as above. (4) Acute respiratory failure with hypoxia Is this a current diagnosis for this admission?: Yes Summary: The combination of COPD and congestive heart failure are the most likely causes. He also has obstructive sleep apnea. He will need a steroid taper to off. We will discharge him on 40 mg daily. I would taper him over 2 weeks or so. He should follow-up with pulmonology as an outpatient. He would probably benefit from continuing BiPAP or CPAP at night. A big problem for him has been very poor sleep with daytime somnolence. This may also help his pulmonary hypertension. Because of his underlying COPD I will initiate Advair 250/51 puff twice a day as this may obviate the need for nebulizer treatments. (5) VIOLETA (obstructive sleep apnea) Is this a current diagnosis for this admission?: Yes Summary: As noted above the patient has obstructive sleep apnea clinically. Significant daytime somnolence. Very poor sleep at night. He would benefit from a sleep study as an outpatient. I believe ongoing CPAP/BiPAP would be very helpful. (6) Atrial flutter with rapid ventricular response Is this a current diagnosis for this admission?: Yes Summary: Reasonable rate control on metoprolol, digoxin and amiodarone. Poor compliance is a significant issue. The patient does have a history of noncompliance which hurts his day-to-day care. Eliquis for chronic anticoagulation. (7) CAD (coronary artery disease) Is this a current diagnosis for this admission?: Yes Summary: He is on aspirin and beta-makenna therapy. He is allergic to statins. Follow- up with cardiology as an outpatient. He has had troponins above the lower limit of normal of 0.034 however these are likely chronically elevated due to his comorbidities. Encourage cardiac diet. (8) Hyperkalemia Is this a current diagnosis for this admission?: Yes Summary: Continue Veltassa. Potassiums have recently been just at or slightly above the upper limit normal. Noncompliance with diuretics will alter his potassium level as well as his renal failure. He should be on a low potassium cardiac diet as well. (9) Pulmonary hypertension Is this a current diagnosis for this admission?: Yes Summary: The echocardiogram revealed pulmonary hypertension. It is possibly related to several comorbidities. As noted above I believe treatment for his obstructive sleep apnea will help. I would encourage weight loss as well. (10) Pleural effusion Is this a current diagnosis for this admission?: Yes Summary: Treated by thoracentesis. He is on mild diuretic therapy. His heart and kidney failure are risks for recurrence. (11) Aphasia as late effect of stroke Is this a current diagnosis for this admission?: Yes Summary: He does have aphasia from a previous stroke. Does make it difficult to understand him at times. I believe this makes him very anxious and somewhat agitated. Continue medication regimen as above. (12) Agitation Is this a current diagnosis for this admission?: Yes Summary: As noted above I believe a fair amount of the patient's agitation is related to his aphasia. He still has outbursts but the current regimen of Seroquel and BuSpar seems to be helping. The steroids could also be contributing and hopefully after the steroid taper this will improve as well. - Additional Information Discharge Diet: Cardiac, Diabetic Discharge Activity: Activity As Tolerated, Balance Activity w/Rest, Weigh Daily Home Medications: Albuterol Sulfate [Proair HFA] 1 puff IH Q6HP PRN 03/31/18 Aspirin [Aspirin 81 mg Chewable Tablet] 162 mg PO DAILY 03/31/18 Ganciclovir [Zirgan] 1 drop OD 5XD 03/31/18 [place]-3 Fatty Acids/Fish Oil [Fish Oil 1,000 mg Capsule] 2,000 mg PO BID 03/31/18 Digoxin [Lanoxin 0.125 mg Tablet] 0.125 mg PO DAILY 30 Days #30 tablet 04/02/18 Furosemide [Lasix 20 mg Tablet] 20 mg PO QAM #10 tablet 05/07/18 Alprazolam [Xanax 0.5 mg Tablet] 0.5 mg PO DAILYP PRN 05/11/18 Dextran 70/Hypromellose [Artificial Tears] 1 drop OP QID 05/11/18 Methenamine Hippurate 24 gm PO .ASDIRECTED 05/11/18 Naproxen [Naprosyn] 500 mg PO BIDP PRN 05/11/18 Potassium Chloride [Klor-Con 10 Meq Capsule ER] 20 meq PO DAILY 05/11/18 Spironolactone [Aldactone 25 mg Tablet] 12.5 mg PO DAILY 05/11/18 History of Present Illness Patient complains of: Initial presentation in April was for increasing shortness of breath and edema. History of Present Illness: ALEX KNIGHT is a 62 year old male who was admitted in April. For 3-4 days prior to admission he has been noticing increasing shortness of breath with orthopnea and lower extremity edema. Please see admission history and physical for further details. Hospital Course Hospital Course: The patient had an ED day hospitalization. Please see above for details. Physical Exam Vital Signs: Temp Pulse Resp BP Pulse Ox 97.7 F 83 20 125/63 97 07/29/18 19:25 07/30/18 07:42 07/29/18 19:25 07/29/18 19:25 07/30/18 00:49 Intake & Output 07/29/18 07/30/18 07/31/18 06:59 06:59 06:59 Intake Total 662 472 Output Total 1245 1150 Balance -583 -678 General appearance: PRESENT: no acute distress, cooperative - Once awake and, other - Somnolent Respiratory exam: PRESENT: rales, symmetrical, unlabored. ABSENT: accessory muscle use, rhonchi, wheezes Cardiovascular exam: PRESENT: irregular rhythm GI/Abdominal exam: PRESENT: normal bowel sounds, soft. ABSENT: distended, tenderness Rectal exam: PRESENT: deferred Extremities exam: PRESENT: pedal edema Neurological exam: PRESENT: awake - Awakens easily, oriented to person, oriented to place, oriented to situation - Difficult to understand due to partial aphasia but he does appear to be oriented., aphasic. ABSENT: alert - Somewhat sleepy Psychiatric exam: PRESENT: flat affect. ABSENT: agitated, anxious Focused psych exam: ABSENT: delusional, restlessness Results Laboratory Results: 07/29/18 07:50 07/29/18 07:50 05/11/18 05/11/18 05/11/18 09:35 09:35 09:35 Creatine Kinase 37 L CK-MB (CK-2) Troponin I 0.071 NT-Pro-B Natriuret Pep 6800 H 05/11/18 05/11/18 05/12/18 12:30 19:00 01:06 Creatine Kinase CK-MB (CK-2) Troponin I 0.067 0.064 0.050 NT-Pro-B Natriuret Pep 05/23/18 05/24/18 05/27/18 10:36 09:38 10:01 Creatine Kinase CK-MB (CK-2) Troponin I 0.060 NT-Pro-B Natriuret Pep 819 889 06/03/18 06/08/18 06/08/18 08:12 13:40 13:40 Creatine Kinase 39 L CK-MB (CK-2) 1.92 Troponin I 0.060 NT-Pro-B Natriuret Pep 1420 H 06/08/18 06/08/18 06/09/18 19:03 19:03 00:59 Creatine Kinase 36 L 34 L CK-MB (CK-2) 1.75 Troponin I 0.058 NT-Pro-B Natriuret Pep 06/09/18 06/09/18 06/09/18 00:59 08:04 08:04 Creatine Kinase 32 L CK-MB (CK-2) 1.58 1.79 Troponin I 0.063 0.064 NT-Pro-B Natriuret Pep 06/09/18 06/09/18 06/09/18 12:52 12:52 19:00 Creatine Kinase 46 L 31 L CK-MB (CK-2) 1.99 Troponin I 0.051 NT-Pro-B Natriuret Pep 06/09/18 06/25/18 07/04/18 19:00 07:35 08:21 Creatine Kinase CK-MB (CK-2) 1.80 Troponin I 0.072 0.054 NT-Pro-B Natriuret Pep 1660 H 07/20/18 07/20/18 07/20/18 22:16 22:16 22:16 Creatine Kinase 30 L CK-MB (CK-2) 2.79 Troponin I 0.077 NT-Pro-B Natriuret Pep 07/21/18 07/22/18 07/24/18 10:10 12:45 14:15 Creatine Kinase CK-MB (CK-2) Troponin I 0.076 0.064 NT-Pro-B Natriuret Pep 8000 H 29297 H 07/27/18 10:52 Creatine Kinase CK-MB (CK-2) Troponin I NT-Pro-B Natriuret Pep 32583 H Impressions: Chest CT 07/24/18 00:00 IMPRESSION: 1. Moderate bilateral pleural effusions greater on the right. 2. Moderate pericardial effusion with cardiomegaly. Head CT 07/24/18 00:00 IMPRESSION: No hemorrhage. No midline shift. Multiple Areas of low density in the white matter due to chronic ischemic change. No evidence for acute infarction. EVIDENCE OF ACUTE STROKE: NO. Thoracentesis Ultrasound 07/25/18 10:27 IMPRESSION: SUCCESSFUL THORACENTESIS USING ULTRASOUND GUIDANCE. Chest X-Ray 07/29/18 18:07 IMPRESSION: Slight worsening of a now moderate right pleural effusion with patchy adjacent airspace opacity. Stable cardiomegaly copyright 2011 [employer]- All Rights Reserved Qualifiers - * PATIENT BEING DISCHARGED WITH ANY OF THE FOLLOWING DIAGNOSIS: Heart Failure HF Pt being discharged on ACEI for LVEF less than 40%?: No Reason(s) for not prescribing ACEI:: Medical Contraindication - Due to his acute kidney injury HF Pt being discharged on ARBS for LVEF less than 40%?: No Reason(s) for not prescribing ARBS:: Medical Contraindication - Due to acute kidney injury HF Pt with Afib discharged with Warfarin?: No Reason(s) for not prescribing Warfarin:: Medical Contraindication - On apixaban HF Pt discharged on evidence-based Beta Makenna:: Yes Plan Discharge Plan: To detention setting. [facility] the [facility]. Time Spent: Greater than 30 Minutes
[2018-07-30 11:40] VITALS: BP 108/64
[2018-07-31] MEDS ORDERED: PREDNISONE 20 MG TABLET PO SCH (10:00)
== END 2018-07-30 12:20 | DRG 291 ==
LOC: ER 08:47 → EH 12:22 → 3S 19:50 → 4S 05-23 00:06 → 3S 07-23 18:04
PROVIDERS: ADMIT Internal Medicine; ATTEND Internal Medicine
PROC: 0W993ZX Drainage of Right Pleural Cavity, Percutaneous Approach, Diagnostic (ICD-10-PCS; principal; 2018-05-13)
PROC: 5A09557 Assistance with Respiratory Ventilation, Greater than 96 Consecutive Hours, Continuous Positive Airway Pressure (ICD-10-PCS; 2018-05-15)
PROC: 0W993ZZ Drainage of Right Pleural Cavity, Percutaneous Approach (ICD-10-PCS; 2018-07-25)
DX: I11.0 Hypertensive heart disease with heart failure (principal); J96.01 Acute respiratory failure with hypoxia; J96.02 Acute respiratory failure with hypercapnia; N17.9 Acute kidney failure, unspecified; J91.8 Pleural effusion in other conditions classified elsewhere; I50.43 Acute on chronic combined systolic (congestive) and diastolic (congestive) heart failure; I25.10 Atherosclerotic heart disease of native coronary artery without angina pectoris; I25.5 Ischemic cardiomyopathy; M19.90 Unspecified osteoarthritis, unspecified site; E78.5 Hyperlipidemia, unspecified; J44.9 Chronic obstructive pulmonary disease, unspecified; I48.0 Paroxysmal atrial fibrillation; E87.5 Hyperkalemia; I27.20 Pulmonary hypertension, unspecified; E11.9 Type 2 diabetes mellitus without complications; K21.9 Gastro-esophageal reflux disease without esophagitis; F43.10 Post-traumatic stress disorder, unspecified; G47.33 Obstructive sleep apnea (adult) (pediatric); M10.9 Gout, unspecified; T50.0X5A Adverse effect of mineralocorticoids and their antagonists, initial encounter; Y92.230 Patient room in hospital as the place of occurrence of the external cause; K59.00 Constipation, unspecified; R45.1 Restlessness and agitation; G89.29 Other chronic pain; I69.328 Other speech and language deficits following cerebral infarction; F41.9 Anxiety disorder, unspecified; Z95.1 Presence of aortocoronary bypass graft; Z79.82 Long term (current) use of aspirin; Z79.51 Long term (current) use of inhaled steroids; Z79.84 Long term (current) use of oral hypoglycemic drugs; Z79.899 Other long term (current) drug therapy; Z95.5 Presence of coronary angioplasty implant and graft; Z82.49 Family history of ischemic heart disease and other diseases of the circulatory system; Z99.81 Dependence on supplemental oxygen; R00.0 Tachycardia, unspecified; I25.2 Old myocardial infarction; Z83.49 Family history of other endocrine, nutritional and metabolic diseases; Z83.3 Family history of diabetes mellitus; Z95.810 Presence of automatic (implantable) cardiac defibrillator; Z88.8 Allergy status to other drugs, medicaments and biological substances; Z59.0 Homelessness; Z75.1 Person awaiting admission to adequate facility elsewhere; Z79.01 Long term (current) use of anticoagulants; Z91.19 Patient's noncompliance with other medical treatment and regimen; Z87.891 Personal history of nicotine dependence
CPT/HCPCS: 32555; 36415; 36600; 70450; 71045; 71046; 71250; 80048; 80053; 80061; 82550; 82553; 82803; 82945; 82962; 83036; 83615; 83735; 83880; 84100; 84157; 84443; 84484; 84550; 85025; 85027; 85610; 85730; 87070; 87075; 87205; 89050; 93005; 93010; 93306; 93321; 94640; 94660; 96374; 96375; 99285; J0282; J0696; J1650; J1815; J1940; J2270; J2405; J2920; J2930; J3490; J7030; J7060; J7512; J7620